=== PATIENT | female | born 1960 | race Caucasian/White ===

== ENCOUNTER → 2017-08-14 | Outpatient (CLI) | payer MEDICARE ==
[~2017-08-14] MED LIST: ACET-2267 PO; ALBU0.8322 IH; ALBU17AE3 IH; ALBU2.5V4 NEB; ALBU2.5V52 INH; ALBU8.5H2 IH; AMIO200T10 PO; AMIT10TA6 PO; ASP81CT PO; ASPI-983 PO; ATOR20TA66 PO; AZIT-21 PO; AZIT250T PO; AZIT500T PO; BUDE10.2 IH; BUDE6HFA IH; CALC625T68 PO; CARV12.53 PO; CARV25TA PO; CHOL10007 PO; CLPL625T PO; CODE1CAP36 PO; CORICIDIN PO; CYCL10TA9 PO; DEXT1TAB3 PO; DXCC100C PO; ENLP2.5T PO; FERR-84 PO; FEXO-104 PO; FEXO-45 PO; FLUT1BLS IH; FRSM40T PO; FURO-124 PO; FURO-125 PO; FURO20TA4 PO; FURO40TA4 PO; GABA-488 PO; GUAI120013 PO; GUAI400T51 PO; GUAI400T71 PO; HYDR-3002 PO; HYDR-3584 PO; HYDR-3604 PO; HYDR-3923 PO; IPRA3AMP NEB; IPRA3AMP11 INH; IPRA3AMP19 IH; ISOS30TA3 PO; LEVO100T7 PO; LEVO750T9 PO; LISI20TA PO; LISI5TAB14 PO; LOPE2TAB34 PO; LORA-794 PO; LORA10TA7 PO; LRZ1T PO; LSNP10T PO; LVF500T PO; MAGN250T35 PO; MAGN250T7 PO; MAGN400T6 PO; MAGNESIUM W/ ZINC PO; MELA5TAB21 PO; METAMUCIL CAPSULE PO; METAMUCIL FIB1 WAFER PO; METO-272 PO; METO-352 PO; METO-370 PO; METO25TA2 PO; METO50TA7 PO; MONT10TA21 PO; MONT10TA24 PO; MULT-35 PO; MULT-974 PO; NAPR-243 PO; NF-ESOM40C PO; OMEP20CA12 PO; OMEP40CA36 PO; PNV1TABL61 PO; PRD10T PO; PRD20T PO; PRED20TA PO; PRM25T PO; PSYL0.5211 PO; PSYL0.5238 PO; RABE20TA PO; RABE20TA27 PO; RIVA15TA PO; RT-ALBUINH IH; RT-SYMBINH IH; SERT50TA PO; SRTR100T PO; TIOT18CA IH; TRAZ-144 PO; TRAZ150T72 PO; UMEC62.5 IH; VIT; WRF5T PO; [UNRECOGNIZED DRUG - OTHER]; citalopram PO
[2017-08-14 14:04] LABS: HEMOGLOBIN 8.5 G/DL (11.5-16.0); MEAN PLATELET VOLUME 12.3 FL (7.4-10.4); RED BLOOD COUNT 2.62 10^6/uL (4.35-5.85); RED CELL DISTRIBUTION WIDTH 15.8 % (10.0-14.5); WHITE BLOOD COUNT 7.2 10^3/uL (4.3-11.0)
[2017-08-14 14:25] LABS: ALBUMIN 2.9 GM/DL (3.2-4.5); BILIRUBIN,TOTAL 0.3 MG/DL (0.1-1.0); CALCIUM 8.7 MG/DL (8.5-10.1); CREATININE SERUM 1.64 MG/DL (0.60-1.30); POTASSIUM 3.9 MMOL/L (3.6-5.0); TOTAL PROTEIN 6.2 GM/DL (6.4-8.2)
== END ==
LOC: HH 07:00
PROVIDERS: ATTEND Family Medicine
DX: I50.9 Heart failure, unspecified (principal); N17.9 Acute kidney failure, unspecified; N18.9 Chronic kidney disease, unspecified; I42.9 Cardiomyopathy, unspecified; N39.0 Urinary tract infection, site not specified
CPT/HCPCS: 80053; 82728; 83540; 85027

== ENCOUNTER 2017-10-25 01:19 | Inpatient (IN) | payer MEDICARE, MEDICAID ==
[2017-10-25] VITALS (17 sets, daily range): BP systolic 100–138; BP diastolic 51–95
[~2017-10-25] VITALS: Ht 160 cm; Wt 79.4 kg
[2017-10-25] MEDS ORDERED: RT-ALBUTEROL SULF 2.5 MG/3 ML PRE-MIX VIAL ONE (01:25)
--- OUTSIDE RECORDS SUMMARY | 2017-10-25 01:30 | XMS REPORT ---
Author Author YVONNE HOPSON [facility] Address [address] [place] [address] Care Team Providers Care Director Of Managed Services Name Role Phone YVONNE HOPSON Unavailable PROBLEMS Type Condition ICD9-CM Code WUV21-XW Code Onset Dates Condition Status SNOMED Code Problem Chronic systolic heart failure I50.22 Active 696772853 Problem Anemia associated with chronic renal failure D63.1 Active 458300829 Problem Mild depression F32.0 Active 529086956 Problem Essential hypertension I10 Active 27877117 Problem Paroxysmal atrial fibrillation I48.0 Active 753831646 Problem Cardiomyopathy, unspecified type I42.9 Active 95941535 Problem COPD exacerbation J44.1 Active 629051652841914 Problem Anxiety F41.9 Active 09904904 Problem Acute on chronic combined systolic and diastolic CHF (congestive heart failure) I50.43 Active 470334590796390 Problem CKD (chronic kidney disease) stage 4, GFR 15-29 ml/min N18.4 Active 774235816 ALLERGIES Substance Reaction Event Type Date Status Demerol Unknown Drug Allergy Jan, Active Bee Venom Unknown Non Drug Allergy Jan, Active ENCOUNTERS Encounter Location Date Diagnosis [facility] [id number], [place] [address] October, [facility] [address], [place] [address] Sep, Anxiety F41.9 and Paroxysmal atrial fibrillation I48.0 [facility] [id number] [place] [address]- 3410 Sep, [facility] [address], [place] [address] Aug, [facility] [id number] [place] [address]- 69[address] Aug, [facility] [address] [place] [id number] Aug, Acute on chronic combined systolic and diastolic CHF (congestive heart failure) I50.43 ; Essential hypertension I10 ; CKD (chronic kidney disease) stage 4, GFR 15-29 ml/min N18.4 ; Paroxysmal atrial fibrillation I48.0 and Mild depression F32.0 [address] [place] [place] [address]- 3[address] Aug, [facility] [id number] [place] [address]- 7964 Aug, [place] [id number] [place] [address]337- 7[address] Aug, Acute on chronic respiratory failure with hypoxia J96.21 ; Acute kidney failure, unspecified N17.9 ; Chronic kidney disease, stage 4 ( severe) N18.4 ; Acute on chronic combined systolic and diastolic CHF ( congestive heart failure) I50.43 ; Paroxysmal atrial fibrillation I48.0 and Cardiomyopathy, unspecified type I42.9 [facility] [address] [place] [address] 08059- 6795 Aug, [facility] [id number] [place] [address] 65273- 6626 Jul, [facility] [address] [place] [address] 27717- 2506 Jul, [facility] [id number] [place] [address] 85[address]- 0392 Jul, [facility] [address] [place] [address] 84097- 2090 Jul, [facility] [id number] [place] [address] 06617- 7446 Jul, Community acquired pneumonia of right lower lobe of lung J18.1 ; CKD (chronic kidney disease) stage 4, GFR 15-29 ml/min N18.4 and Shortness of breath R06.02 [facility] [id number] [place] [id number] Jul, 2017 [place] [id number] [place] [address] 99152- 2567 Jun, Anxiety F41.9 [place] [id number] [place] [address] 57858- 5427 Apr, Anxiety F41.9 [place] [address] [address] Apr, Cough R05 and Pneumonia of right lower lobe due to infectious organism J18.1 [place] [address] [address]- [address] 07 Apr, 2017 [place] [id number] [place] [address] 37825- 1226 Apr, Chronic kidney disease, stage IV (severe) N18.4 and COPD exacerbation J44.1 [place] [id number] [place] [address] 77413- 0370 Feb, Chronic systolic heart failure I50.22 ; Essential hypertension I10 ; Anemia associated with chronic renal failure D63.1 and Chronic kidney disease, stage 4 (severe) N18.4 [place] [id number] [place] [address] 73730- 5713 Feb, Anxiety F41.9 [place] [id number] [place] [address] 78039- 9703 Feb, [place] [id number] [place] [address] 06500- 7362 Feb, [place] [id number] [place] [address] 20084- 2683 Jan, Other fatigue R53.83 ; Otalgia of both ears H92.03 and Urinary urgency R39.15 [place] [id number] [place] [address] 21551- 3875 Jan, Acute non-recurrent maxillary sinusitis J01.00 ; Chronic systolic heart failure I50.22 ; Stage 3 chronic kidney disease N18.3 and Mild depression F32.0 [facility] [address] [place] [address] 14 Sep, 2014 [facility] [address] [facility] [id number] [place] [address] Sep, [facility] [address] [facility] [id number] [place] [address] 9092 Feb, [facility] [address] [id number] [place] Feb, [facility] [address] [facility] [id number] [place] [address] Dec, [facility] [id number] [address] Dec, [facility] [address] [place] [address] 6[address] Nov, [facility] [id number] [place] [address]99 Nov, [facility] [address] [place] [address] 38[address] Nov, [facility] [id number] [place] [address] 9616 Nov, [facility] [id number], [place] [address] October, [facility] [address] [facility] [id number] [place] October, [facility] [id number] Sep, [facility] [address] [facility] [id number] [place] [address]- 3305 Sep, [facility] [id number], [place] [address] 65[address] Sep, [facility] [place] [facility] [address] [id number] [place] [address]- 3581 Sep, [facility] [place] [facility] [address] [id number] [place] [address]- 8755 Sep, [facility] [place] [facility] [address] [id number] [place] Aug, [facility] [place] [facility] [address] [id number] [place] [address]- 3421 Aug, [facility] [place] [facility] [address] [id number] [place] [address]- 9272 Aug, [facility] [place] [facility] [address] [id number] [place] [address]- 0364 Aug, [facility] [place] [facility] [address] [id number] [place] [address]- 7947 Aug, [facility] [place] [facility] [address] [id number] [place] [address]- 0693 Aug, [facility] [place] [facility] [address] [id number] [place] [address]- 2681 Aug, [facility] [place] [facility] [address] [id number] [place] [address]- 5054 Aug, [facility] [place] [facility] [address] [id number] [place] [address]- 1133 Jul, [facility] [place] [facility] [address] [id number] [place] [address]- 0110 Jul, [facility] [place] [facility] [address] [id number] [place] [address]- 7524 Jul, [facility] [place] [facility] [address] [id number] [place] [address]- 2033 Jul, [facility] [place] [facility] [address] [id number] [place] [address]- 7445 Jul, [facility] [place] [facility] [address] [id number] [place] [address] 2547 03 Jul, 2013 [facility] [address] [id number] [place] [address]- 9899 Jun, [facility] [place] [facility] [address] [id number] [place] [address]- 2028 Jun, [facility] [address] [id number] [place] [address]- 5201 Jun, [facility] [place] [facility] [address] [id number] [place] [address]- 4157 Jun, [facility] [address] [id number] [place] [address]- 2720 Jun, [facility] [address] [id number] [place] [address]- 4774 May, [facility] [place] [facility] [address] [id number] [place] [address]- 2886 May, [facility] [address] [id number] [place] [address]- 7195 May, [facility] [address] [id number] [place] [address]- 9216 May, [facility] [address] [id number] [place] [address]- 3399 May, [facility] [place] [facility] [address] [id number] [place] [address]- 4119 Apr, [facility] [place] [facility] [address] [id number] [place] [address]- 6987 Apr, [facility] [place] [facility] [address] [id number] [place] [address]- 9286 Mar, [facility] [place] [facility] [address] [id number] [place] [address]- 2546 Mar, [facility] [place] [facility] [address] [id number] [place] [address]- 8547 Mar, [facility] [place] [facility] [address] [id number] [place] [address]- 0149 Mar, [facility] [place] [facility] [address] [id number] [place] [address]- 6600 16 Feb, 2013 [facility] [place] [facility] [address] [id number] [place] [address]- 2030 Jan, [facility] [place] [facility] [address] [id number] [place] [address]- 5223 Jan, [facility] [place] [facility] [address] [id number] [place] [address]- 7510 Aug, [facility] [place] [facility] [address] [id number] [place] [address]- 2836 Jul, [facility] [place] [facility] [address] [facility] [id number] [place] [address]- 0964 Jun, [facility] [place] [facility] [address] [id number] [place] [address]- 7363 May, [facility] [place] [facility] [address] [id number] [place] [address]- 5719 May, [facility] [place] [facility] [address] [facility] [id number] [place] [address]- 4465 May, [facility] [place] [facility] [address] [id number] [place] [address]- 2459 May, [facility] [place] [facility] [address] [id number], [place] [address]- 0878 Apr, [facility] [place] [facility] [address] [id number] [place] [address]- 3771 Apr, [facility] [place] [facility] [address] [id number] [place] [address]- 9373 Mar, [facility] [place] [facility] [address] [id number] [place] [address]- 0742 Mar, [facility] [place] [facility] [id number], [place] [address] 2546 Mar, [facility] [address], [place] [address]- 3476 Mar, [facility] [address], [place] [address]- 1566 Mar, [facility] [address], [place] [address] 2546 Mar, [facility] [address], [place] [address] 2546 Dec, [facility] [address], [place] [address]- 0086 Dec, [facility] [address], [place] [address]- 2546 Nov, [facility] [address], [place] [address]- 4076 Nov, [facility] [address], [place] [address]- 5536 October, [facility] [address], [place] [address]- 1706 October, [facility] [address], [place] [address]- 9716 Sep, [facility] [address], [place] [address]- 0286 Aug, [facility] [id number], [place] [address] 2546 Aug, [facility] [id number], [place] [address]- 4096 Aug, IMMUNIZATIONS No Known Immunizations SOCIAL HISTORY Never Assessed REASON FOR VISIT Ear Pain, cont'd symptoms, pt. has been having really glossy eyes and forgetting what she is saying , pt. states having diarrhea---[place],CCMA PLAN OF CARE Activity Details Follow Up Follow up with Dr. Dubose as soon as possible, prn Reason: VITAL SIGNS Height 60 in 2017-02-26 Weight 187.4 lbs 2017-02-26 Temperature 98.4 degrees Fahrenheit 2017-02-26 Heart Rate 80 bpm 2017-02-26 Respiratory Rate 20 2017-02-26 BMI 36.60 kg/m2 2017-02-26 Blood pressure systolic 138 mmHg 2017-02-26 Blood pressure diastolic 77 mmHg 2017-02-26 MEDICATIONS Medication Instructions Dosage Frequency Start Date End Date Duration Status Furosemide 20 MG Orally Once a day 1 tablet by Oral route 1 time per day PRN edema 24h 17 Feb, 2014 Active Spiriva HandiHaler 18 MCG Inhalation Once a day 1 capsule 24h Active Ferrous Sulfate 325 (65 Fe) MG Orally twice a day 1 tablet 12h Active Breo Ellipta 200-25 MCG/INH Inhalation Once a day 1 puff 24h Active Montelukast Sodium 10 MG Orally Once a day 1 tablet in the evening 24h Active D3-1000 1000 UNIT Orally Once a day 1 capsule 24h Active 28-0.8 MG Active Isosorbide Mononitrate ER 30 MG Orally Once a day 2 tablets 24h Active Carvedilol 12.5 MG Orally 2 times a day 12h Active Gabapentin 300 MG Orally Once a day 1 capsule 24h Active Loratadine 10 MG Orally Once a day 1 tablet 24h Active Trazodone HCl 150 MG Orally Once a day 1.5 tablets 24h Active HydrOXYzine HCl 10 mg Orally every 8 hrs 8h Active Magnesium Oxide 1 Tablet by Oral route 1 time per day Apr, Active HydrALAZINE HCl 25 MG Orally 2 times a day 1 tablet with food 12h Active Levothyroxine Sodium 100 MCG Orally Once a day 1 tablet on an empty stomach in the morning 24h Active Atorvastatin Calcium 20 MG Orally Once a day 1 tablet 24h Active RESULTS Name Result Date Reference Range THYROID ANALYZER 2017-02-26 TSH 1.840 0.450-4.500 CBC 2017-02-26 WBC 9.9 3.4-10.8 RBC 3.49 3.77-5.28 Hemoglobin 10.6 11.1-15.9 Hematocrit 33.5 34.0-46.6 MCV 96 79-97 MCH 30.4 26.6-33.0 MCHC 31.6 31.5-35.7 RDW 14.9 12.3-15.4 Platelets 289 150-379 Neutrophils 73 Lymphs 18 Monocytes 7 Eos 1 Basos 1 Neutrophils (Absolute) 7.2 1.4-7.0 Lymphs (Absolute) 1.8 0.7-3.1 Monocytes(Absolute) 0.7 0.1-0.9 Eos (Absolute) 0.1 0.0-0.4 Baso (Absolute) 0.1 0.0-0.2 Immature Granulocytes 0 Immature Grans (Abs) 0.0 0.0-0.1 CMP 2017-02-26 Glucose, Serum 114 65-99 BUN 17 6-24 Creatinine, Serum 1.70 0.57-1.00 eGFR If NonAfricn Am 33 >59 eGFR If Africn Am 38 >59 BUN/Creatinine Ratio 10 9-23 Sodium, Serum 142 134-144 Potassium, Serum 4.6 3.5-5.2 Chloride, Serum 99 96-106 Carbon Dioxide, Total 27 18-29 Calcium, Serum 9.8 8.7-10.2 Protein, Total, Serum 7.2 6.0-8.5 Albumin, Serum 3.9 3.5-5.5 Globulin, Total 3.3 1.5-4.5 A/G Ratio 1.2 1.2-2.2 Bilirubin, Total <0.2 0.0-1.2 Alkaline Phosphatase, S 156 39-117 AST (SGOT) 18 0-40 ALT (SGPT) 14 0-32 UA LONG DIP (IN HOUSE) 2017-02-26 Lot # [id number] Exp date 10/2017 Clarity Clear Color Yellow Odor None GLU Negative ROBERTA Negative KET Negative SG <=1.005 BLO Negative pH 5.5 Protein Negative URO 0.2 NIT Negative YOAN Negative Lot # Exp date PROCEDURES Procedure Date Ordered Result Body Site [facility] Feb 26, 2017 URINALYSIS, AUTO, W/O SCOPE Feb 26, 2017 [facility] VISIT ESTABLISHED PATIENT Feb 26, 2017 VENIPUNCT, ROUTINE* Feb 26, 2017 INSTRUCTIONS MEDICATIONS ADMINISTERED No Known Medications MEDICAL (GENERAL) HISTORY Type Description Date Medical History hyperlipidemia Medical History htn Medical History kidney failure stage 4 - dx in 2012 Medical History hypothyroidisim Medical History neuropathy Medical History COPD - See's Dr Burnette in [facility] Surgical History 2 cesareans Surgical History defibrillator - 2012 Hospitalization History pneumonia for a week 2017 Hospitalization History Hospitalized at [facility]- CHF, Chest pain. Dismissed 07/11/17 07/10/2017 Hospitalization History [facility] pneumonia, hypoxia-[facility] 07/30/17
[2017-10-25] MEDS ORDERED: RT-ALBUTEROL SULF 2.5 MG/3 ML PRE-MIX VIAL INH STA (01:31)
[2017-10-25] MEDS ORDERED: methylPREDNISolone 125 MG (Solu-MEDROL) VIAL IV STA (01:31)
[2017-10-25] MEDS ORDERED: NS IV 500 ML 500 ML IV ONE (01:31)
--- OUTSIDE RECORDS SUMMARY | 2017-10-25 01:31 | XMS REPORT ---
Author Author TEAGAN VERNON Organization [facility] Address [address] [place] [address] Care Team Providers Care Adult School Teacher Name Role Phone TEAGAN VERNON Unavailable PROBLEMS Type Condition ICD9-CM Code SWS44-CE Code Onset Dates Condition Status SNOMED Code Problem Chronic systolic heart failure I50.22 Active 341644729 Problem Anemia associated with chronic renal failure D63.1 Active 528209871 Problem Mild depression F32.0 Active 691870205 Problem Essential hypertension I10 Active 47899189 Problem Chronic kidney disease, stage 4 (severe) N18.4 Active 439375278 Problem Paroxysmal atrial fibrillation I48.0 Active 766595510 Problem COPD exacerbation J44.1 Active 373860522854711 Problem Anxiety F41.9 Active 18250187 Problem Cardiomyopathy, unspecified type I42.9 Active 08414267 Problem Acute on chronic combined systolic and diastolic CHF (congestive heart failure) I50.43 Active [id number] ALLERGIES Substance Reaction Event Type Date Status Demerol Unknown Drug Allergy Jan, Active Bee Venom Unknown Non Drug Allergy Jan, Active ENCOUNTERS Encounter Location Date Diagnosis [place] [id number] [place] [address] 95558- 4431 October, [facility] [id number] [place] [address] 65537- 0130 Sep, Chronic kidney disease, stage 4 (severe) N18.4 and Chronic kidney disease, stage IV (severe) N18.4 [facility] [id number] [place] [address] 94561- 3101 Sep, Chronic kidney disease, stage 4 (severe) N18.4 [facility] [address] [place] [address] 05633- 5571 Sep, Anxiety F41.9 and Paroxysmal atrial fibrillation I48.0 [facility] [address] [address] Sep, [facility] [id number] [place] [address] 34608- 8387 Aug, [facility] [address] [place] [address] 07408- 4669 Aug, [facility] [address] [facility] [place] [id number] Aug, Acute on chronic combined systolic and diastolic CHF (congestive heart failure) I50.43 ; Essential hypertension I10 ; CKD (chronic kidney disease) stage 4, GFR 15-29 ml/min N18.4 ; Paroxysmal atrial fibrillation I48.0 and Mild depression F32.0 [facility] [address] [place] [address] 38736- 6458 Aug, [place] [id number] [place] [address] 80253- 5216 Aug, [facility] [address] [place] [address] 79198- 9161 Aug, Acute on chronic respiratory failure with hypoxia J96.21 ; Acute kidney failure, unspecified N17.9 ; Chronic kidney disease, stage 4 ( severe) N18.4 ; Acute on chronic combined systolic and diastolic CHF ( congestive heart failure) I50.43 ; Paroxysmal atrial fibrillation I48.0 and Cardiomyopathy, unspecified type I42.9 [facility] [address] [address] Aug, [facility] [address] [place] [address] 94926- 0682 Jul, [facility] [id number] [place] [address] 98846- 7702 Jul, [facility] [address] [place] [address] 13885- 8076 Jul, [facility] [id number] [place] [address] 92135- 5300 07 Jul, 2017 [facility] [address] [place] [address] 46862- 4184 Jul, Community acquired pneumonia of right lower lobe of lung J18.1 ; CKD (chronic kidney disease) stage 4, GFR 15-29 ml/min N18.4 and Shortness of breath R06.02 [facility] [address] [id number] Jul, [facility] [id number] [place] [address] 03712- 4215 Jun, Anxiety F41.9 [place] [address] [address]- 3552 Apr, Anxiety F41.9 [place] [id number] [place] [address] 97296- 4687 Apr, Cough R05 and Pneumonia of right lower lobe due to infectious organism J18.1 [place] [id number] [place] [address] 83498- 7716 Apr, [place] [id number] [place] [address] 63857- 1204 Apr, Chronic kidney disease, stage IV (severe) N18.4 and COPD exacerbation J44.1 [place] [id number] [place] [address] 40923- 0889 Feb, Chronic systolic heart failure I50.22 ; Essential hypertension I10 ; Anemia associated with chronic renal failure D63.1 and Chronic kidney disease, stage 4 (severe) N18.4 [place] [address] [place] [address] 73272- 9023 Feb, Anxiety F41.9 [facility] [id number] [place] [address] 48624- 8098 Feb, [place] [id number] [place] [address] 20540- 5825 Feb, [place] [address] [address] 30 Jan, 2017 Other fatigue R53.83 ; Otalgia of both ears H92.03 and Urinary urgency R39.15 [facility] [address] [address] 24 Jan, 2017 Acute non-recurrent maxillary sinusitis J01.00 ; Chronic systolic heart failure I50.22 ; Stage 3 chronic kidney disease N18.3 and Mild depression F32.0 [facility] [id number] [address] 14 Sep, 2014 [facility] [id number] [place] [address] 25347- 1288 Sep, [facility] [id number] [place] [address] 65662- 7103 Feb, [facility] [id number] [place] [address] 94274- 0795 Feb, [facility] [address] [address] 0229 Dec, [facility] [id number] [place] [address] 96274- 5689 Dec, [facility] [id number] [address] 72[address] Nov, [facility] [address] [address]- 2293 Nov, [facility] [address] [address] 5465 Nov, [facility] [id number] [place] [address] 45741- 4158 Nov, [facility] [address] [address] 7798 October, [facility] [id number] [place] [address] 88494- 3883 October, [facility] [place] [facility] [address] [id number] [place] [address]- 9390 Sep, [facility] [place] [facility] [address] [id number] [place] [address]- 7617 Sep, [facility] [place] [facility] [address] [id number] [place] [address]- 1862 Sep, [facility] [place] [facility] [address] [id number] [place] [address]- 1159 Sep, [facility] [place] [facility] [address] [id number] [place] [address] Sep, [facility] [place] [facility] [address] [id number] [place] [address]- 2950 Aug, [facility] [place] [facility] [address] [id number] [place] [address]- 8445 Aug, [facility] [place] [facility] [address] [id number] [place] [address]- 0575 Aug, [facility] [place] [facility] [address] [id number] [place] [address]- 4029 Aug, [facility] [place] [facility] [address] [id number] [place] [address]- 8303 Aug, [facility] [place] [facility] [address] [id number] [place] [address]- 6100 Aug, [facility] [place] [facility] [address] [id number] [place] [address]- 2175 Aug, [facility] [place] [facility] [address] [id number] [place] [address]- 4384 Aug, [facility] [place] [facility] [address] [id number] [place] [address]- 9789 Jul, [facility] [place] [facility] [address] [id number] [place] [address]- 7437 Jul, [facility] [place] [facility] [address] [id number] [place] [address]- 7105 05 Jul, 2013 [facility] [address] [id number] [place] [address]- 5550 05 Jul, 2013 [facility] [place] [facility] [address] [id number] [place] [address]- 2344 Jul, [facility] [address] [id number] [place] [address]- 4491 Jul, [facility] [place] [facility] [address] [id number] [place] [address]- 7499 Jun, [facility] [address] [id number] [place] [address]- 1652 Jun, [facility] [address] [id number] [place] [address]- 8481 Jun, [facility] [address] [id number] [place] [address]- 5726 Jun, [facility] [address] [id number] [place] [address]- 1666 Jun, [facility] [address] [id number] [place] [address]- 1975 May, [facility] [address] [facility] [id number] [place] [address]- 5191 May, [facility] [place] [facility] [address] [id number] [place] [address]- 4112 May, [facility] [place] [facility] [address] [id number] [place] [address]- 0708 May, [facility] [place] [facility] [address] [id number] [place] [address]- 3594 May, [facility] [place] [facility] [address] [id number] [place] [address]- 7310 Apr, [facility] [place] [facility] [address] [id number] [place] [address]- 9022 Apr, [facility] [address] [id number] [place] [address]- 8338 Mar, [facility] [place] [facility] [address] [id number] [place] [address]- 8446 Mar, [facility] [place] [facility] [address] [id number] [place] [address]- 1096 Mar, [facility] [place] [facility] [address] [id number] [place] [address]- 6836 Mar, [facility] [place] [facility] [address] [id number] [place] [address]- 6301 Feb, [facility] [place] [facility] [address] [id number] [place] [address]- 7476 Jan, [facility] [place] [facility] [address] [id number] [place] [address]- 7521 Jan, [facility] [place] [facility] [address] [id number] [place] [address]- 3639 Aug, [facility] [place] [facility] [address] [id number] [place] [address]- 5909 Jul, [facility] [place] [facility] [address] [facility] [id number] [address]- 1436 Jun, [facility] [place] [facility] [address] [facility] [id number], [place] [address]- 5036 May, [facility] [place] [facility] [address] [id number], [place] [address]- 4143 May, [facility] [place] [facility] [address] [id number] [place] [address]- 7867 May, [facility] [place] [facility] [address] [id number] [place] [address]- 3666 May, [facility] [place] [facility] [address] [facility] [id number], [place] [address]- 3836 Apr, [facility] [place] [facility] [address] [id number], [place] [address]- 3925 Apr, [facility] [place] [facility] [address] [id number] [place] [address]- 9145 Mar, [facility] [place] [facility] [address] [id number] [place] [address]- 3792 Mar, [facility] [place] [facility] [address] [facility] [id number] [place] [address]- 0816 Mar, [facility] [place] [facility] [address] [id number] [place] [address]- 1355 Mar, [facility] [place] [facility] [address] [id number] [place] [address]- 0906 Mar, [facility] [place] [facility] [address] [id number] [place] [address]- 3051 Mar, [facility] [place] [facility] [address] [place] [address]- 1792 Dec, [facility] [place] [facility] [address] [facility] [id number] [place] [address]- 5363 Dec, [facility] [place] [facility] [id number] [place] [address]- 1740 Nov, [facility] [place] [facility] [id number] [place] [address]- 1045 Nov, [facility] [place] [facility] [address] [facility] [id number] [place] [address]- 5001 October, [facility] [place] [facility] [address] [facility] [id number] [address] 2546 October, [facility] [place] [facility] [address] [id number] [place] [address]- 0913 Sep, [facility] [place] [facility] [address] [facility] [id number] [place] [address]- 2876 Aug, [facility] [place] [facility] [id number] [place] [address]- 2577 Aug, [facility] [place] [facility] [address] [facility] [id number] [place] [address] Aug, IMMUNIZATIONS No Known Immunizations SOCIAL HISTORY Never Assessed REASON FOR VISIT Establish Care-WILLIAM Teague PLAN OF CARE Activity Details Follow Up 3 Months with [facility] for CHF Reason: VITAL SIGNS Height 60 in 2017-02-20 Weight 186 lbs 2017-02-20 Temperature 98.4 degrees Fahrenheit 2017-02-20 Heart Rate 80 bpm 2017-02-20 Respiratory Rate 20 2017-02-20 BMI 36.32 kg/m2 2017-02-20 Blood pressure systolic 110 mmHg 2017-02-20 Blood pressure diastolic 70 mmHg 2017-02-20 MEDICATIONS Medication Instructions Dosage Frequency Start Date End Date Duration Status Carvedilol 12.5 MG Orally 2 times a day 12h Active Atorvastatin Calcium 20 MG Orally Once a day 1 tablet 24h Active Spiriva HandiHaler 18 MCG Inhalation Once a day 1 capsule 24h Active Gabapentin 300 MG Orally Once a day 1 capsule 24h Active 28-0.8 MG Active Magnesium Oxide 1 Tablet by Oral route 1 time per day Apr, Active Loratadine 10 MG Orally Once a day 1 tablet 24h Active Augmentin 875-125 MG Orally every 12 hrs 1 tablet 12h Jan,Jan 05 days Active D3-1000 1000 UNIT Orally Once a day 1 capsule 24h Active HydrALAZINE HCl 25 MG Orally 2 times a day 1 tablet with food 12h Active Trazodone HCl 150 MG Orally Once a day 1.5 tablets 24h Active Furosemide 20 MG Orally Once a day 1 tablet by Oral route 1 time per day PRN edema 24h Feb, Active Ferrous Sulfate 325 (65 Fe) MG Orally twice a day 1 tablet 12h Active Montelukast Sodium 10 MG Orally Once a day 1 tablet in the evening 24h Active Isosorbide Mononitrate ER 30 MG Orally Once a day 2 tablets 24h Active Levothyroxine Sodium 100 MCG Orally Once a day 1 tablet on an empty stomach in the morning 24h Active Breo Ellipta 200-25 MCG/INH Inhalation Once a day 1 puff 24h Active HydrOXYzine HCl 10 mg Orally every 8 hrs 8h Active RESULTS No Results PROCEDURES Procedure Date Ordered Result Body Site [facility] VISIT NEW PATIENT Feb 20, 2017 INSTRUCTIONS MEDICATIONS ADMINISTERED No Known Medications MEDICAL (GENERAL) HISTORY Type Description Date Medical History hyperlipidemia Medical History htn Medical History kidney failure stage 4 - dx in 2012 Medical History hypothyroidisim Medical History neuropathy Medical History COPD - See's Dr Burnette in [facility] Surgical History 2 cesareans Surgical History defibrillator - 2012 Hospitalization History pneumonia for a week 2017 Hospitalization History Hospitalized at [facility]- CHF, Chest pain. Dismissed 07/11/17 07/10/2017 Hospitalization History [facility] pneumonia, [facility] 07/30/17
--- OUTSIDE RECORDS SUMMARY | 2017-10-25 01:33 | XMS REPORT ---
Author Author TEAGAN VERNON Organization [facility] Address [address] [place] [address] Care Team Providers Care Coke Inspector Name Role Phone TEAGAN VERNON Unavailable PROBLEMS Type Condition ICD9-CM Code OBP05-AX Code Onset Dates Condition Status SNOMED Code Problem Chronic systolic heart failure I50.22 Active 389343230 Problem Anemia associated with chronic renal failure D63.1 Active 413413096 Problem Mild depression F32.0 Active 363284909 Problem Essential hypertension I10 Active 62668514 Problem Chronic kidney disease, stage 4 (severe) N18.4 Active 179553216 Problem Paroxysmal atrial fibrillation I48.0 Active 051086545 Problem COPD exacerbation J44.1 Active [id number] Problem Anxiety F41.9 Active 48094996 Problem Cardiomyopathy, unspecified type I42.9 Active 59624064 Problem Acute on chronic combined systolic and diastolic CHF (congestive heart failure) I50.43 Active [id number] ALLERGIES No Information ENCOUNTERS Encounter Location Date Diagnosis [facility] [address] [address] October, [facility] [id number] [place] [address]8572- 6635 Sep, Chronic kidney disease, stage 4 (severe) N18.4 and Chronic kidney disease, stage IV (severe) N18.4 [facility] [id number] [place] [address] 78873- 1087 Sep, Chronic kidney disease, stage 4 (severe) N18.4 [facility] [id number] [place] [address] 50455- 7203 Sep, Anxiety F41.9 and Paroxysmal atrial fibrillation I48.0 [facility] [address] [address] Sep, [facility] [address] [address] Aug, [facility] [id number] [place] [address] 31976- 1288 Aug, [facility] [address] [place], [place] [id number] Aug, Acute on chronic combined systolic and diastolic CHF (congestive heart failure) I50.43 ; Essential hypertension I10 ; CKD (chronic kidney disease) stage 4, GFR 15-29 ml/min N18.4 ; Paroxysmal atrial fibrillation I48.0 and Mild depression F32.0 [facility] [id number] [place] [address] 716[address]- 6362 Aug, [facility] [id number] [place] [address]91- 4128 Aug, [facility] [id number] [place] [address] 52027- 6026 Aug, Acute on chronic respiratory failure with hypoxia J96.21 ; Acute kidney failure, unspecified N17.9 ; Chronic kidney disease, stage 4 ( severe) N18.4 ; Acute on chronic combined systolic and diastolic CHF ( congestive heart failure) I50.43 ; Paroxysmal atrial fibrillation I48.0 and Cardiomyopathy, unspecified type I42.9 [facility] [address] [address] Aug, [facility] [id number] [place] [address]10- 0685 Jul, [facility] [address], [place] [address] Jul, [facility] [id number] [place] [address] 02361- 0196 Jul, [facility] [address] [address] Jul, [facility] [id number] [place] [address] 04305- 2630 06 Jul, 2017 Community acquired pneumonia of right lower lobe of lung J18.1 ; CKD (chronic kidney disease) stage 4, GFR 15-29 ml/min N18.4 and Shortness of breath R06.02 [facility] [id number] [place] [id number] Jul, 2017 [facility] [id number] [place] [address] 49058- 2981 Jun, Anxiety F41.9 [place] [address] [address]- [address]36 Apr, Anxiety F41.9 [place] [address] 35691- 0271 Apr, Cough R05 and Pneumonia of right lower lobe due to infectious organism J18.[address] [address]- [address] Apr, [place] [id number] [place] [address] 67366- 3882 Apr, Chronic kidney disease, stage IV (severe) N18.4 and COPD exacerbation J44.1 [place] [id number] [place] [address] 71116- 1675 Feb, Chronic systolic heart failure I50.22 ; Essential hypertension I10 ; Anemia associated with chronic renal failure D63.1 and Chronic kidney disease, stage 4 (severe) N18.4 [facility] [id number] [place] [address] 76871- 0437 Feb, Anxiety F41.9 [facility] [address] [address]- [address] Feb, [facility] [id number] [place] [address] 55594- 8021 Feb, [place] [id number] [place] [address] 91444- 3376 Jan, Other fatigue R53.83 ; Otalgia of both ears H92.03 and Urinary urgency R39.15 [facility] [id number] [place] [address] 02073- 4719 Jan, Acute non-recurrent maxillary sinusitis J01.00 ; Chronic systolic heart failure I50.22 ; Stage 3 chronic kidney disease N18.3 and Mild depression F32.0 [facility] [address] [address]- 5812 Sep, [facility] [id number] [place] [address] 38905- 7781 Sep, [facility] [id number] [place] [address] 04139- 6996 Feb, [facility] [id number] [place] [address] 21736- 0852 Feb, [facility] [id number] [place] [address] 82404- 7129 Dec, [facility] [id number] [place] [address] 48459- 1865 Dec, [facility] [id number] [place] [address] 48834- 5165 Nov, [facility] [id number] [place] [address] 58645- 6068 Nov, [facility] [id number] [place] [address] 48015- 6522 Nov, [facility] [id number] [place] [address] 11146- 5538 Nov, [facility] [id number] [place] [address] 97571- 5605 October, [facility] [id number] [place] [address] 79972- 7165 October, [facility] [id number] [place] [address] 69595- 2516 Sep, [facility] [place] [facility] [address] [id number] [place] [address]- 7453 Sep, [facility] [place] [facility] [address] [id number] [place] [address]- 1934 Sep, [facility] [place] [facility] [address] [id number] [place] [address]- 1682 Sep, [facility] [place] [facility] [address] [id number] [place] [address]- 6419 Sep, [facility] [place] [facility] [address] [id number] [place] [address] Aug, [facility] [place] [facility] [address] [id number] [place] [address]149 Aug, [facility] [place] [facility] [address] [id number] [place] [address]- 9524 Aug, [facility] [place] [facility] [address] [id number] [place] [address]- 7760 Aug, [facility] [place] [facility] [address] [id number] [place] [address]- 9420 Aug, [facility] [place] [facility] [address] [id number] [place] [address]- 4834 Aug, [facility] [place] [facility] [address] [id number] [place] [address]- 7265 Aug, [facility] [place] [facility] [address] [id number] [place] [address]- 8679 Aug, [facility] [place] [facility] [address] [id number] [place] [address]- 8596 Jul, [facility] [place] [facility] [address] [id number] [place] [address]- 3916 Jul, [facility] [place] [facility] [address] [id number] [place] [address]- 2761 Jul, [facility] [place] [facility] [address] [id number] [place] [address]- 3965 05 Jul, 2013 [facility] [place] [facility] [address] [id number] [place] [address]- 5935 Jul, [facility] [place] [facility] [address] [id number] [place] [address]- 7176 Jul, [facility] [place] [facility] [address] [id number] [place] [address]- 9825 Jun, [facility] [place] [facility] [address] [id number] [place] [address]- 5721 Jun, [facility] [place] [facility] [address] [id number] [place] [address]- 3998 Jun, [facility] [place] [facility] [address] [id number] [place] [address]- 9028 Jun, [facility] [place] [facility] [address] [id number] [place] [address]- 2339 Jun, [facility] [place] [facility] [address] [id number] [place] [address]- 1551 May, [facility] [place] [facility] [address] [id number] [place] [address]- 3204 May, [facility] [place] [facility] [address] [id number] [place] [address]- 4293 May, [facility] [place] [facility] [address] [id number] [place] [address]- 2999 May, [facility] [place] [facility] [address] [id number] [place] [address]- 8732 May, [facility] [place] [facility] [address] [id number] [place] [address]- 5141 Apr, [facility] [place] [facility] [address] [id number] [place] [address]- 3709 Apr, [facility] [place] [facility] [address] [id number] [place] [address]- 3303 Mar, [facility] [address] [id number] [place] [address]- 5740 Mar, [facility] [place] [facility] [address] [id number] [place] [address]- 3866 Mar, [facility] [place] [facility] [address] [facility] [id number] [place] [address] 2546 Mar, [facility] [place] [facility] [address] [id number] [place] [address]- 5718 Feb, [facility] [place] [facility] [address] [id number] [place] [address]- 8852 Jan, [facility] [place] [facility] [address] [id number] [place] [address]- 9117 Jan, [facility] [place] [facility] [address] [id number] [place] [address]- 7435 Aug, [facility] [place] [facility] [address] [id number] [place] [address]- 5791 Jul, [facility] [place] [facility] [address] [id number] [place] [address]- 3086 Jun, [facility] [place] [facility] [address] [id number] [place] [address]- 8265 May, [facility] [place] [facility] [address] [id number], [place] [address]- 1275 May, [facility] [place] [facility] [address] [id number], [place] [address]- 4107 May, [facility] [place] [facility] [address] [id number] [place] [address]- 5151 May, [facility] [place] [facility] [address] [facility] [id number] [address]- 6986 Apr, [facility] [place] [facility] [address] [facility] [id number] [place] [address]- 2546 Apr, [facility] [place] [facility] [address] [id number] [place] [address]- 7375 Mar, [facility] [address] [id number] [place] [address]- 0342 Mar, [facility] [address] [id number] [place] [address]- 0040 Mar, [facility] [address] [id number] [place] [address]- 0204 Mar, [facility] [address] [id number] [place] [address]- 5553 Mar, [facility] [address] [id number] [place] [address]- 7933 Mar, [facility] [address] [facility] [id number] [place] [address]- 0693 Dec, [facility] [address] [facility] [id number] [place] [address]- 3331 Dec, [facility] [address] [facility] [id number] [place] [address]- 0677 Nov, [facility] [address] [facility] [id number] [place] [address]- 5728 Nov, [facility] [address] [facility] [id number] [place] [address]- 2106 October, [facility] [address] [facility] [id number] [place] [address]- 7196 October, [facility] [address] [facility] [id number] [place] [address]- 9610 Sep, [facility] [address] [facility] [id number] [place] [address]- 6901 Aug, [facility] [address] [facility] [id number] [place] [address]- 2546 Aug, [facility] [address] [facility] [id number], [place] [address]- 6986 Aug, IMMUNIZATIONS No Known Immunizations SOCIAL HISTORY Never Assessed REASON FOR VISIT Med concern PLAN OF CARE VITAL SIGNS MEDICATIONS Medication Instructions Dosage Frequency Start Date End Date Duration Status Omeprazole 20 mg Orally 2 times a day 1 capsule 12h Feb, 30 day (s) Active RESULTS No Results PROCEDURES No Known procedures INSTRUCTIONS MEDICATIONS ADMINISTERED No Known Medications MEDICAL (GENERAL) HISTORY Type Description Date Medical History hyperlipidemia Medical History htn Medical History kidney failure stage 4 - dx in 2012 Medical History hypothyroidisim Medical History neuropathy Medical History COPD - See's Dr Burnette in [facility] Surgical History 2 cesareans Surgical History defibrillator - 2012 Hospitalization History pneumonia for a week 2017 Hospitalization History Hospitalized at [facility]- CHF, Chest pain. Dismissed 07/11/17 07/10/2017 Hospitalization History RLL pneumonia, hypoxia-[facility] 07/30/17
[2017-10-25 01:35] LABS: ABG BASE EXCESS 1.8 MMOL/L (-2.5-2.5); ABG OXYGEN SATURATION 92 % (94-100); ABG PCO2 55 MMHG (35-45); ABG PO2 66 MMHG (79-93); ABG TCO2 29.2 MMOL/L (21.0-31.0)
[2017-10-25 01:37] LABS: ALLENS TEST YES-POS; INSPIRED O2 65% BIPAP; PATIENT TEMP 97.5; VENTILATOR NO
[2017-10-25 01:39] LABS: ABG PH 7.32 (7.37-7.43)
[2017-10-25 01:42] LABS: BASOPHILS # (AUTO) 0.1 10^3/uL (0.0-0.1); BASOPHILS % (AUTO) 1 % (0-10); EOSINOPHILS # (AUTO) 0.3 10^3/uL (0.0-0.3); EOSINOPHILS % (AUTO) 2 % (0-10); HEMATOCRIT 36 % (35-52); HEMOGLOBIN 11.7 G/DL (11.5-16.0); LYMPHOCYTES % (AUTO) 16 % (12-44); MEAN CORPUSCULAR HEMOGLOBIN 32 PG (25-34); MEAN CORPUSCULAR HGB CONC 33 G/DL (32-36); MEAN CORPUSCULAR VOLUME 98 FL (80-99); MEAN PLATELET VOLUME 12.5 FL (7.4-10.4); MONOCYTES % (AUTO) 8 % (0-12); NEUTROPHILS # (AUTO) 9.1 X 10^3 (1.8-7.8); NEUTROPHILS % (AUTO) 74 % (42-75); PLATELET COUNT 327 10^3/uL (130-400); RED BLOOD COUNT 3.67 10^6/uL (4.35-5.85); RED CELL DISTRIBUTION WIDTH 15.3 % (10.0-14.5); WHITE BLOOD COUNT 12.4 10^3/uL (4.3-11.0)
[2017-10-25 01:53] LABS: INR 0.9 (0.8-1.4); PROTHROMBIN TIME PATIENT 12.6 SEC (12.2-14.7)
[2017-10-25 02:04] LABS: BILIRUBIN,URINE NEGATIVE (NEGATIVE); CLARITY,URINE CLEAR; COLOR,URINE YELLOW; GLUCOSE, URINE (UA) NEGATIVE (NEGATIVE); KETONES,URINE NEGATIVE (NEGATIVE); LEUKOCYTE ESTERASE ,URINE 1+ (NEGATIVE); NITRITE,URINE NEGATIVE (NEGATIVE); PH,URINE 6 (5-9); PROTEIN,URINE 3+ (NEGATIVE); UROBILINOGEN,URINE NORMAL (NORMAL)
[2017-10-25 02:09] LABS: ALBUMIN 3.9 GM/DL (3.2-4.5); BILIRUBIN,TOTAL 0.3 MG/DL (0.1-1.0); CALCIUM 9.7 MG/DL (8.5-10.1); CREATININE SERUM 2.32 MG/DL (0.60-1.30); POTASSIUM 4.2 MMOL/L (3.6-5.0)
[2017-10-25 02:12] LABS: BACTERIA,URINE TRACE /HPF; RBC,URINE 0-2 /HPF; SQUAMOUS EPITHELIAL CELL,UR RARE /HPF; WBC,URINE 0-2 /HPF
--- NOTE | 2017-10-25 02:28 | ED General ---
General Chief Complaint: Respiratory Problems Stated Complaint: SOA Nursing Triage Note: PT TO ED 8 PER EMS FOR C/O SOB ONSET WHILE SLEEPING THAT WOKE HER. UPON ARRIVAL, EMS FOUND PT TO BE 70% ON RA, LOBORED BREATHING W/ RHONCHI THROUGHOUT. AFTER BREATHING TX X1, SPO2 IMPROVED TO 80%. PT PRESENTLY ON CPAP W/ SPO2 AT 90-95%. NO OTHER C/O VOICED Nursing Sepsis Screen: No Definite Risk Source of Information: Patient, EMS Exam Limitations: No Limitations History of Present Illness Date Seen by Provider: Oct 25, 2017 Time Seen by Provider: 01:18 Initial Comments Here with report of shortness of breath that started this evening. Apparently woke her up. EMS found her with O2 sat of 70 percent and placed her on CPAP which then improved her O2 sat to the mid 80s. DuoNeb was initiated and this did increase her saturations further into the 90s. Patient reports that she's had recent fever. She's had a few admissions this year for pneumonia and/or COPD. Does report cough. Denies chest pain or vomiting. Timing/Duration: 2-3 Days, Getting Worse Severity: Moderate, Severe Associated Systoms: No Chest Pain; Cough, Fever/Chills; No Nausea/Vomiting; Shortness of Air; No Weakness Allergies and Home Medications Allergies Coded Allergies: propoxyphene napsylate (Unverified Allergy, Severe, SEVERE NAUSEA AND VOMITING , 04/03/13) meperidine (Unverified Allergy, Unknown, 12/19/14) venom-honey bee (Verified Allergy, Unknown, 09/19/13) lisinopril (Verified Adverse Reaction, Unknown, PT STATES "BOTTOMS OUT" HER BLOOD PRESSURE, 03/12/15) Patient states that it "bottoms out" her blood pressure. She will refuse to take this medication and reports it as an allergy. Home Medications Acetaminophen 500 Mg Tablet, 1,000 MG PO Q6H PRN for PAIN-MILD, (Reported) Albuterol Sulfate 1 Puff Puff, 2 PUFF IH Q4H PRN for WHEEZING, (Reported) 1 PUFF = 90 MCG Albuterol Sulfate 2.5 Mg/3 Ml Vial.neb, 2.5 MG NEB Q4H PRN for SHORTNESS OF BREATH, (Reported) Atorvastatin Calcium 20 Mg Tablet, 20 MG PO HS, (Reported) LAST FILLED #90 05-03-17 Carvedilol 12.5 Mg Tablet, 12.5 MG PO BID, (Reported) Cholecalciferol (Vitamin D3) 1,000 Unit Capsule, 1,000 UNIT PO HS, (Reported) Fluticasone/Vilanterol 1 Each Blst.w.dev, 1 PUFF IH DAILY, (Reported) LAST FILLED 06-02-17 Furosemide 20 Mg Tablet, 20 MG PO DAILY, (Reported) Gabapentin 300 Mg Capsule, 300 MG PO 1800, (Reported) Hydralazine HCl 25 Mg Tablet, 25 MG PO BID, (Reported) Hydroxyzine HCl 10 Mg Tablet, 10 MG PO TID PRN for ANXIETY, (Reported) LAST FILLED #90 06-28-17 Isosorbide Mononitrate 30 Mg Tab.er.24h, 60 MG PO DAILY, (Reported) TAKES 2 (30MG) TABLETS Levothyroxine Sodium 100 Mcg Tablet, 100 MCG PO DAILY, (Reported) Loperamide HCl 2 Mg Tablet, 2 MG PO UD PRN for DIARRHEA, (Reported) Loratadine 10 Mg Tablet, 10 MG PO DAILY, (Reported) Magnesium Oxide 400 Mg Tablet, 400 MG PO DAILY, (Reported) Melatonin 5 Mg Tab.ir.er, 5 MG PO HS, (Reported) Montelukast Sodium 10 Mg Tablet, 10 MG PO HS, (Reported) Omeprazole 40 Mg Capsule.dr, 40 MG PO DAILY, (Reported) Pnv with Ca,No.72/Iron,Carb/FA 1 Each Tablet, 1 TAB PO DAILY, (Reported) Trazodone HCl 150 Mg Tablet, 150-225 MG PO HS, (Reported) LAST FILLED #45 06-29-17 TAKES 1 TO 1 & 1/2 (150MG) TABLET Umeclidinium Holden 62.5 Mcg Blst.w.dev, 1 PUFF IH DAILY, (Reported) Patient Home Medication List Home Medication List Reviewed: Yes Review of Systems Constitutional: see HPI; No chills; fever EENTM: no symptoms reported Respiratory: see HPI, short of breath, wheezing Cardiovascular: No chest pain, No palpitations Gastrointestinal: No abdominal pain, No vomiting Genitourinary: no symptoms reported : No Musculoskeletal: no symptoms reported Skin: no symptoms reported All Other Systems Reviewed Negative Unless Noted: Yes Past Sexzgjg-Gztlik-Fbaryu Hx Past Med/Social Hx: Reviewed Nursing Past Med/Soc Hx Patient Social History Alcohol Use: Denies Use Recreational Drug Use: No Smoking Status: Former Smoker Type Used: Cigarettes Former Smoker, Quit: Jul 09, 2017 Recent Foreign Travel: No Contact w/Someone Who Travel: No Recent Infectious Disease Expo: No Recent Hopitalizations: Yes Physical Abuse: No Sexual Abuse: No Mistreated: No Fear: No Immunizations Up To Date Tetanus Booster (TDap): Unknown PED Vaccines UTD: No Date of Pneumonia Vaccine: Mar 30, 2013 Date of Influenza Vaccine: Jul 11, 2017 Seasonal Allergies Seasonal Allergies: Yes Past Medical History Surgeries: Yes (heart cath, DEFIBRILLATOR PLACEMENT ) Cardiac, Section, Defibrillator, Hysterectomy Respiratory: Yes Asthma, Pneumonia, COPD Currently Using CPAP: No Currently Using BIPAP: No Cardiac: Yes (CHF EF 20% non ischemic, left atrial thrombus) Atrial Fibrillation, Cardiomyopathy, Hypertension Neurological: Yes Headaches /Migraines 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 Disorders: Yes (Hysterectomy) 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 Disorders: Denies 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 Sexually Transmitted Disease: No HIV/AIDS: No Genitourinary: Yes Renal Failure Gastrointestinal: Yes (history of elevated transaminases, HX of elevated liver enzymes) Gastroesophageal Reflux, Hiatal Hernia Musculoskeletal: No Arthritis Endocrine: Yes HEENT: Yes Cataract Loss of Vision: Denies Hearing Impairment: Denies Cancer: No Bladder Psychosocial: Yes Sleep Difficulties, Anxiety, Depression Nursing Suicide Risk Score: 0 Integumentary: No Blood Disorders: No Adverse Reaction/Blood Tranf: No Family Medical History Reviewed Nursing Family Hx Cancer 19 FATHER (HODGKINS ) 19 MOTHER (BRAIN TUMOR ) Congenital heart disease 19 MOTHER Congestive heart failure 19 MOTHER Family history: Cardiovascular disease 19 MOTHER G8 SISTER G8 SISTER Family history: Hypertension 19 MOTHER G8 SISTER G8 SISTER Heart disease 19 MOTHER G8 SISTER G8 SISTER History of - respiratory disease 19 MOTHER G8 BROTHER G8 SISTER Heart Disease, Cancer, Hypertension Physical Exam-Suspected Sepsis Physical Exam Vital Signs Vital Signs - First Documented 10/25/17 10/25/17 10/25/17 01:19 01:20 04:25 Temp 95.7 Pulse 94 Resp 16 B/P (MAP) 138/92 (107) Pulse Ox 95 O2 Delivery NIV Bilevel O2 Flow Rate 65.00 FiO2 40 Capillary Refill : Less Than 3 Seconds Blood Pressure Mean: 107 General Appearance: No Apparent Distress, WD/WN HEENT: PERRL/EOMI, Pharynx Normal Neck: Non Tender, Supple Respiratory: Decreased Breath Sounds, Wheezing Cardiovascular: Regular Rate, Rhythm, No Murmur Gastrointestinal: Non Tender, Soft Back: Normal Inspection, No CVA Tenderness, No Vertebral Tenderness Extremity: Normal Range of Motion, Non Tender Neurologic/Psychiatric: Alert, Oriented x3 Skin: normal color, warm/dry Focused Exam Lactate Level 10/25/17 01:25: Lactic Acid Level 1.87 Lactic Acid Level Procedures/Interventions Date of ETT Placement: Aug 20, 2017 Time of ETT Placement: 628 Progress/Results/Core Measures Suspected Sepsis Recent Fever Within 48 Hours: No Infection Criteria Present: None New/Unexplained Altered Menta: No Sepsis Screen: No Definite Risk SIRS Temperature:95.7 Pulse: 83 Respiratory Rate: 21 Laboratory Tests 10/25/17 01:25: White Blood Count 12.4H Blood Pressure 96 /73 Mean: 107 10/25/17 01:25: Lactic Acid Level 1.87 Laboratory Tests 10/25/17 01:25: Creatinine 2.32H, INR Comment 0.9, Platelet Count 327, Total Bilirubin 0.3 Results/Orders Lab Results Laboratory Tests Test 10/25/17 01:25 10/25/17 01:29 10/25/17 01:56 Range/Units White Blood Count 12.4 H 4.3-11.0 10^3/uL Red Blood Count 3.67 L 4.35-5.85 10^6/uL Hemoglobin 11.7 11.5-16.0 G/DL Hematocrit 36 35-52 % Mean Corpuscular Volume 98 80-99 FL Mean Corpuscular Hemoglobin 32 25-34 PG Mean Corpuscular Hemoglobin Concent 33 32-36 G/DL Red Cell Distribution Width 15.3 H 10.0-14.5 % Platelet Count 327 130-400 10^3/uL Mean Platelet Volume 12.5 H 7.4-10.4 FL Neutrophils (%) (Auto) 74 42-75 % Lymphocytes (%) (Auto) 16 12-44 % Monocytes (%) (Auto) 8 0-12 % Eosinophils (%) (Auto) 2 0-10 % Basophils (%) (Auto) 1 0-10 % Neutrophils # (Auto) 9.1 H 1.8-7.8 X 10^3 Lymphocytes # (Auto) 2.0 1.0-4.0 X 10^3 Monocytes # (Auto) 1.0 0.0-1.0 X 10^3 Eosinophils # (Auto) 0.3 0.0-0.3 10^3/uL Basophils # (Auto) 0.1 0.0-0.1 10^3/uL Prothrombin Time 12.6 12.2-14.7 SEC INR Comment 0.9 0.8-1.4 Activated Partial Thromboplast Time 26 24-35 SEC Sodium Level 138 135-145 MMOL/L Potassium Level 4.2 3.6-5.0 MMOL/L Chloride Level 99 98-107 MMOL/L Carbon Dioxide Level 25 21-32 MMOL/L Anion Gap 14 5-14 MMOL/L Blood Urea Nitrogen 24 H 7-18 MG/DL Creatinine 2.32 H 0.60-1.30 MG/DL Estimat Glomerular Filtration Rate 22 BUN/Creatinine Ratio 10 Glucose Level 163 H 70-105 MG/DL Lactic Acid Level 1.87 0.50-2.00 MMOL/L Calcium Level 9.7 8.5-10.1 MG/DL Total Bilirubin 0.3 0.1-1.0 MG/DL Aspartate Amino Transf (AST/SGOT) 25 5-34 U/L Alanine Aminotransferase (ALT/SGPT) 20 0-55 U/L Alkaline Phosphatase 110 40-136 U/L B-Type Natriuretic Peptide 812.7 H <100.0 PG/ML Total Protein 8.0 6.4-8.2 GM/DL Albumin 3.9 3.2-4.5 GM/DL Blood Gas Puncture Site R RAD Blood Gas Patient Temperature 97.5 Arterial Blood pH 7.32 *L 7.37-7.43 Arterial Blood Partial Pressure CO2 55 H 35-45 MMHG Arterial Blood Partial Pressure O2 66 L 79-93 MMHG Arterial Blood HCO3 27 23-27 MMOL/L Arterial Blood Total CO2 29.2 21.0-31.0 MMOL/L Arterial Blood Oxygen Saturation 92 L 94-100 % Arterial Blood Base Excess 1.8 -2.5-2.5 MMOL/L Hank Test YES-POS Blood Gas Ventilator Setting NO Blood Gas Inspired Oxygen 65% BIPAP Urine Color YELLOW Urine Clarity CLEAR Urine pH 6 5-9 Urine Specific [place] 1.015 L 1.016-1.022 Urine Protein 3+ H NEGATIVE Urine Glucose (UA) NEGATIVE NEGATIVE Urine Ketones NEGATIVE NEGATIVE Urine Nitrite NEGATIVE NEGATIVE Urine Bilirubin NEGATIVE NEGATIVE Urine Urobilinogen NORMAL NORMAL MG/DL Urine Leukocyte Esterase 1+ H NEGATIVE Urine RBC (Auto) 2+ H NEGATIVE Urine RBC 0-2 /HPF Urine WBC 0-2 /HPF Urine Squamous Epithelial Cells RARE /HPF Urine Crystals NONE /LPF Urine Bacteria TRACE /HPF Urine Casts PRESENT /LPF Urine Hyaline Casts 5-10 H /LPF Urine Mucus MODERATE H /LPF Urine Culture Indicated NO My Orders Orders - JOSHUA CHOI MD Arterial Blood Gas (10/25/17:30) Cbc With Automated Diff (10/25/17) Comprehensive Metabolic Panel (10/25/17) Lactic Acid Analyzer (10/25/17) Blood Culture (10/25/17) Sputum Culture (10/25/1731) Ua Culture If Indicated (10/25/17) Protime With Inr (10/25/17) Partial Thromboplastin Time (10/25/17:31) Chest 1 View, Ap/Pa Only (10/25/17:31) O2 (10/25/17:31) Vital Signs Adult Sepsis Patie Q1H (10/25/17:31) Remove Rings In Anticipation O (10/25/17:31) Ns Iv 500 Ml (Sodium Chloride 0.9%) (10/25/17:31) Albuterol Pre-Mix Nebs (Rt) (Proventil (10/25/17:31) Svn Small Volume Nebulizer (10/25/17:31) Methylprednisolone Sod Succ (Solu-Medrol (10/25/17 01:31) BNP (10/25/17 01:44) Piperacillin Sodium/Tazobactam (Zosyn Vi (10/25/17 02:30) Medications Given in ED Current Medications Medications Dose Ordered Sig/Cade Route Start Time Stop Time Status Last Admin Dose Admin Piperacillin Sod/ Tazobactam Sod 4.5 gm/Dextrose 100 ml @ 200 mls/hr ONCE ONCE IV 10/25/17 02:30 10/25/17 02:59 DC 10/25/17 02:46 200 MLS/HR Sodium Chloride 500 ml @ 0 mls/hr Q0M ONCE IV 10/25/17 01:31 10/25/17 01:34 DC 10/25/17 01:49 500 MLS/HR Vital Signs/I&O 10/25/17 10/25/17 10/25/17 10/25/17 01:19 01:19 01:20 01:46 Temp 95.7 Pulse 94 94 83 Resp 16 27 21 B/P (MAP) 138/92 (107) Pulse Ox 95 92 92 94 O2 Delivery NIV Bilevel NIV/CPAP O2 Flow Rate 65.00 70.00 10/25/17 10/25/17 10/25/17 10/25/17 03:42 03:50 03:50 04:04 Temp 96.1 96.7 Pulse 69 87 86 67 Resp 16 30 18 B/P (MAP) 96/46 125/95 (105) Pulse Ox 100 99 100 O2 Delivery NIV CPAP NIV Bilevel O2 Flow Rate 50.00 50.00 10/25/17 10/25/17 04:07 04:25 Pulse 87 Pulse Ox 99 95 O2 Delivery NIV Bilevel FiO2 40 Capillary Refill : Less Than 3 Seconds Blood Pressure Mean: 107 Progress Note : Progress Note Seen and evaluated. Converted from CPAP to BiPAP on arrival. IV, labs, chest x -ray, UA, blood cultures, lactic acid, sputum culture and ABG ordered. Albuterol neb 2. O2 saturations in the mid 90s. Monitor patient. 0220: Dose in 4.5 g IV ordered as patient has fairly prominent right lower lobe infiltrate. BNP is elevated but much less than on previous hospitalizations. There may be a component of failure but this looks more like pneumonia on the chest x-ray. Patient to be admitted. Doing well on BiPAP at 18/80 and FiO2 70 percent. I discussed case with Dr. Howell. She accepts patient for admission to the ICU. 0340: Patient did receive her so sent IV. Did note some transient hypotension while sleeping. This improved when she woke back. Patient does not have elevation in her lactic acid at this time and she does have history of CHF. I think it would be disadvantageous to give high-volume fluid resuscitation and this patient at this time as she is improving and it appears to be transient hypotension. Could consider pressors or fluids if this is persistent. This was discussed with the patient and family who agree. BiPAP settings changed to FiO2 of 50 percent as she is satting 100 percent currently. I attest focused exam at this time and patient is overall much improved and said arrival. Patient to go to ICU. Diagnostic Imaging Diagonstic Imaging: Xray Plain Films/CT/US/NM/MRI: chest Comments Right lower lobe and/or multilobar infiltrate on the right. Pulmonary vascular congestion noted. Departure Communication (Admissions) Time/Spoke to Admitting Phy: 02:20 Impression Primary Impression: Right lower lobe pneumonia Qualified Codes: J18.1 - Lobar pneumonia, unspecified organism Additional Impression: Respiratory failure with hypoxia and hypercapnia Qualified Codes: J96.01 - Acute respiratory failure with hypoxia; J96.02 - Acute respiratory failure with hypercapnia Disposition: ADMITTED INPATIENT Condition: Stable Admissions Decision to Admit Reason: Admit from ER (General) Decision to Admit/Date: Oct 25, 2017 Time/Decision to Admit Time: 02:20 Departure-Patient Inst. Decision time for Depature: 02:20 Referrals: TEAGAN VERNON MD (PCP/Family) Primary Care Physician JOSHUA CHOI MD Oct 25, 2017 02:28
[2017-10-25] MEDS ORDERED: PIPERACILLIN SODIUM/TAZOBACTAM 4.5 GM in D5W 100 ML IVPB 100 ML IV ONE (02:30)
[2017-10-25] MEDS: NS IV 1000 ML 1,000 ML IV SCH ×3 (04:52→16:42)
[2017-10-25] MEDS ORDERED: VANCOMYCIN 2000 MG/NS 500 ML IVPB IV SCH ×2 (05:15)
[2017-10-25] MEDS: methylPREDNISolone 125 MG (Solu-MEDROL) VIAL IV SCH ×3 (05:24→20:41)
[2017-10-25] MEDS ORDERED: KCL 20 MEQ TAB (K-DUR) PO SCH (06:00)
[2017-10-25] MEDS ORDERED: MAGNESIUM 1 GM/100 ML IVPB 100 ML IV SCH (06:00)
[2017-10-25] MEDS ORDERED: POTASSIUM CL 10MEQ/50ML IVPB 50 ML IV SCH (06:00)
[2017-10-25] MEDS: RT-ALBUTEROL/IPRATROPIUM 3 ML (DUONEB) VIAL INH SCH ×5 (06:34→22:34)
[2017-10-25] MEDS ORDERED: VANCOMYCIN 1500 MG/NS 500 ML IVPB IV NR ×2 (07:00)
--- NOTE | 2017-10-25 07:53 | Diagnostic Imaging Report ---
INDICATION: Shortness of air. TECHNIQUE: Single view chest 1:40 AM. CORRELATION STUDY: 08/21/2017 FINDINGS: Left-sided ACD remains in place. Heart size enlarged. Vasculature overall appearing improved and relatively normal on followup. Extensive opacification throughout the right lung is present, may reflect asymmetric edema versus infiltrate. Findings most pronounced along the lung base. IMPRESSION: 1. Diffuse opacity throughout the right lung may reflect underlying the asymmetric infiltrate or edema throughout the right lung. Findings most pronounced involving the right lower lobe suspect for more focal area of consolidation. Dictated by: Dictated on workstation # [id number]
[2017-10-25] MEDS ORDERED: PIPERACILLIN SODIUM/TAZOBACTAM 4.5 GM in NS (IVPB) 100 ML IV SCH (08:30)
[2017-10-25] MEDS: PIPERACILLIN SODIUM/TAZOBACTAM 4.5 GM in NS (IVPB) 100 ML IV SCH ×2 (11:32→17:22)
--- NOTE | 2017-10-25 11:52 | H&P Pediatric ---
HPI History of Present Illness: Time Seen by Provider: 12:36 Attending Physician Malika Burgos DO PCP Lalita Dubose MD Consult Date of Admission Oct 25, 2017 at 02:36 Home Medications Home Medications Reviewed patient Home Medication Reconciliation performed by pharmacy medication reconciliations health type technician and/or nursing. Patients Allergies have been reviewed. Allergies Coded Allergies: propoxyphene napsylate (Unverified Allergy, Severe, SEVERE NAUSEA AND VOMITING , 04/03/13) meperidine (Unverified Allergy, Unknown, 12/19/14) venom-honey bee (Verified Allergy, Unknown, 09/19/13) lisinopril (Verified Adverse Reaction, Unknown, PT STATES "BOTTOMS OUT" HER BLOOD PRESSURE, 03/12/15) Patient states that it "bottoms out" her blood pressure. She will refuse to take this medication and reports it as an allergy. PMH-Pediatrics Patient Social History Physical Abuse Screen: No Sexual Abuse: No Recent Foreign Travel: No Contact w/other who traveled: No Recent Infectious Disease Expo: No Hospitalization with Isolation: Denies Immunizations Up To Date Tetanus Booster (TDap): Unknown Date of Pneumonia Vaccine: Mar 30, 2013 Date of Influenza Vaccine: Jul 11, 2017 Seasonal Allergies Seasonal Allergies: Yes Past Medical History COPD with oxygen dependence at home HTN Hypothyroidism HLD Stage IV CKD Macrocytic Anemia Insomnia Family Medical History Significant Family History: Heart Disease, Cancer, Hypertension Patient History: Cancer 19 FATHER (HODGKINS ) 19 MOTHER (BRAIN TUMOR ) Congenital heart disease 19 MOTHER Congestive heart failure 19 MOTHER Family history: Cardiovascular disease 19 MOTHER G8 SISTER G8 SISTER Family history: Hypertension 19 MOTHER G8 SISTER G8 SISTER Heart disease 19 MOTHER G8 SISTER G8 SISTER History of - respiratory disease 19 MOTHER G8 BROTHER G8 SISTER Review of Systems (CHC) Constitutional: see HPI Physical Exam-Pediatric Physical Exam Vital Signs Vital Signs - First Documented 10/25/17 10/25/17 10/25/17 01:19 01:20 04:25 Temp 95.7 Pulse 94 Resp 16 B/P (MAP) 138/92 (107) Pulse Ox 95 O2 Delivery NIV Bilevel O2 Flow Rate 65.00 FiO2 40 Capillary Refill : Less Than 3 Seconds General Appearance: see HPI Assessment/Plan Assessment/Plan Admission Status: Inpatient Order (span 2 midnights) Reason for Inpatient Admission: see above MALIKA BURGOS DO Oct 25, 2017 11:52
[2017-10-25] MEDS ORDERED: FURO-124 PO (12:03)
[2017-10-25] MEDS ORDERED: AMIO200T2 PO (12:03)
[2017-10-25] MEDS ORDERED: CARV6.252 PO (12:03)
[2017-10-25] MEDS ORDERED: MAGN500T PO (12:03)
[2017-10-25] MEDS ORDERED: LORA0.5T PO (12:03)
[2017-10-25] MEDS: hydrALAZINE (APRESOLINE) 25 MG TAB PO SCH ×2 (12:27→20:42)
[2017-10-25 12:35] LABS: BASOPHILS % (AUTO) 0 % (0-10); EOSINOPHILS % (AUTO) 0 % (0-10); HEMATOCRIT 32 % (35-52); HEMOGLOBIN 10.3 G/DL (11.5-16.0); LYMPHOCYTES # (AUTO) 0.5 X 10^3 (1.0-4.0); LYMPHOCYTES % (AUTO) 5 % (12-44); MEAN CORPUSCULAR HEMOGLOBIN 31 PG (25-34); MEAN CORPUSCULAR HGB CONC 32 G/DL (32-36); MEAN CORPUSCULAR VOLUME 97 FL (80-99); MEAN PLATELET VOLUME 12.2 FL (7.4-10.4); MONOCYTES # (AUTO) 0.1 X 10^3 (0.0-1.0); MONOCYTES % (AUTO) 1 % (0-12); NEUTROPHILS # (AUTO) 8.8 X 10^3 (1.8-7.8); NEUTROPHILS % (AUTO) 95 % (42-75); PLATELET COUNT 241 10^3/uL (130-400); RED BLOOD COUNT 3.29 10^6/uL (4.35-5.85); RED CELL DISTRIBUTION WIDTH 14.9 % (10.0-14.5); WHITE BLOOD COUNT 9.3 10^3/uL (4.3-11.0)
[2017-10-25 12:51] LABS: CALCIUM 9.3 MG/DL (8.5-10.1); CREATININE SERUM 2.07 MG/DL (0.60-1.30); PHOSPHORUS 2.8 MG/DL (2.3-4.7)
[2017-10-25 13:01] LABS: EOSINOPHILS % (MANUAL) 0 %; LYMPHOCYTES % (MANUAL) 8 %; MONOCYTES % (MANUAL) 1 %; NEUTROPHILS % (MANUAL) 91 %; RBC MORPH NORMAL
[2017-10-25] MEDS: AMIODARONE 200 MG (CORDARONE) TAB PO SCH (13:17)
[2017-10-25] MEDS: ENOXAPARIN 30 MG/0.3 ML (LOVENOX) SYR SC SCH (13:17)
[2017-10-25] MEDS: ACETAMINOPHEN 500 MG TAB (TYLENOL) PO PRN (17:22)
[2017-10-25] MEDS: CARVEDILOL 6.25 MG (COREG) TAB PO SCH (20:42)
[2017-10-25] MEDS: LORazepam 0.5 MG (ATIVAN) TABLET PO SCH (20:42)
--- NOTE | 2017-10-25 20:59 | History & Physicial (CHS) ---
HPI History of Present Illness: 57 year old female who presented to ED last night with abrupt onset of shortness of breath and was requiring BiPap with FiO2 65% to maintain her O2 sats. Pt had hospitalization at the end of July at this facility and was transferred to [facility] secondary to afib with RVR and renal failure. When discharged from [facility], the patient reports she went to a SNF for rehab and was discharged home on 09/23. She reports she has been doing well at home, other than a fall on Friday while she was wearing slippers, but reports that she didn't get hurt, other than a scratch on her left knee and left hand. Source: patient, RN/MD, RN notes reviewed, old records Exam Limitations: no limitations Date seen by provider: Oct 25, 2017 Time Seen by Provider: 12:36 Attending Physician Malika Howell Holly R MD Consult Date of Admission Oct 25, 2017 at 02:36 Home Medications Home Medications Reviewed patient Home Medication Reconciliation performed by pharmacy medication reconciliations marine fisheries technician and/or nursing. Patients Allergies have been reviewed. Allergies Coded Allergies: propoxyphene napsylate (Unverified Allergy, Severe, SEVERE NAUSEA AND VOMITING , 04/03/13) meperidine (Unverified Allergy, Unknown, 12/19/14) venom-honey bee (Verified Allergy, Unknown, 09/19/13) lisinopril (Verified Adverse Reaction, Unknown, PT STATES "BOTTOMS OUT" HER BLOOD PRESSURE, 03/12/15) Patient states that it "bottoms out" her blood pressure. She will refuse to take this medication and reports it as an allergy. [id number] Hx Patient Social History Marrital Status: Living Status: lives independently Employed/Student: unemployed Alcohol Use: Denies Use Recreational Drug Use: No Smoking Status: Former Smoker Former smoker/When Quit: Jan 04, 2013 Type Used: Cigarettes 2nd Hand Smoke Exposure: No Recent Foreign Travel: No Contact w/other who traveled: No Recent Hopitalizations: Yes (discharged from SNF 09/23/17) Recent Infectious Disease Expo: No Physical Abuse Screen: No Sexual Abuse: No Immunizations Up To Date Tetanus Booster (TDap): Unknown Date of Pneumonia Vaccine: Mar 30, 2013 Date of Influenza Vaccine: Jul 11, 2017 Past Medical History COPD with oxygen dependence at home HTN Hypothyroidism HLD Stage IV CKD Macrocytic Anemia Insomnia Paroxysmal Afib Systolic and Diastolic Heart Failure Family Medical History Significant Family History: Heart Disease, Cancer, Hypertension Family History: Cancer 19 FATHER (HODGKINS ) 19 MOTHER (BRAIN TUMOR ) Congenital heart disease 19 MOTHER Congestive heart failure 19 MOTHER Family history: Cardiovascular disease 19 MOTHER G8 SISTER G8 SISTER Family history: Hypertension 19 MOTHER G8 SISTER G8 SISTER Heart disease 19 MOTHER G8 SISTER G8 SISTER History of - respiratory disease 19 MOTHER G8 BROTHER G8 SISTER Review of Systems (CHC) Constitutional: see HPI EENTM: no symptoms reported Respiratory: see HPI, dyspnea on exertion, short of breath, wheezing Cardiovascular: no symptoms reported; No chest pain, No palpitations, No syncope Gastrointestinal: no symptoms reported; No constipation, No diarrhea, No dysphagia, No nausea, No vomiting Genitourinary: no symptoms reported : No Musculoskeletal: no symptoms reported Skin: no symptoms reported Psychiatric/Neurological: No Symptoms Reported Reviewed Test Results Reviewed Test Results Lab 10/25/17 01:25: Lactic Acid Level 1.87 Laboratory Tests Test 10/25/17 01:25 10/25/17 01:29 10/25/17 01:56 10/25/17 12:21 Range/Units White Blood Count 12.4 H 9.3 4.3-11.0 10^3/uL Red Blood Count 3.67 L 3.29 L 4.35-5.85 10^6/uL Hemoglobin 11.7 10.3 L 11.5-16.0 G/DL Hematocrit 36 32 L 35-52 % Mean Corpuscular Volume 98 97 80-99 FL Mean Corpuscular Hemoglobin 32 31 25-34 PG Mean Corpuscular Hemoglobin Concent 33 32 32-36 G/DL Red Cell Distribution Width 15.3 H 14.9 H 10.0-14.5 % Platelet Count 327 241 130-400 10^3/uL Mean Platelet Volume 12.5 H 12.2 H 7.4-10.4 FL Neutrophils (%) (Auto) 74 95 H 42-75 % Lymphocytes (%) (Auto) 16 5 L 12-44 % Monocytes (%) (Auto) 8 1 0-12 % Eosinophils (%) (Auto) 2 0 0-10 % Basophils (%) (Auto) 1 0 0-10 % Neutrophils # (Auto) 9.1 H 8.8 H 1.8-7.8 X 10^3 Lymphocytes # (Auto) 2.0 0.5 L 1.0-4.0 X 10^3 Monocytes # (Auto) 1.0 0.1 0.0-1.0 X 10^3 Eosinophils # (Auto) 0.3 0.0 0.0-0.3 10^3/uL Basophils # (Auto) 0.1 0.0 0.0-0.1 10^3/uL Prothrombin Time 12.6 12.2-14.7 SEC INR Comment 0.9 0.8-1.4 Activated Partial Thromboplast Time 26 24-35 SEC Sodium Level 138 137 135-145 MMOL/L Potassium Level 4.2 5.0 3.6-5.0 MMOL/L Chloride Level 99 103 98-107 MMOL/L Carbon Dioxide Level 25 24 21-32 MMOL/L Anion Gap 14 10 5-14 MMOL/L Blood Urea Nitrogen 24 H 22 H 7-18 MG/DL Creatinine 2.32 H 2.07 H 0.60-1.30 MG/DL Estimat Glomerular Filtration Rate 22 25 BUN/Creatinine Ratio 10 11 Glucose Level 163 H 148 H 70-105 MG/DL Lactic Acid Level 1.87 0.50-2.00 MMOL/L Calcium Level 9.7 9.3 8.5-10.1 MG/DL Total Bilirubin 0.3 0.1-1.0 MG/DL Aspartate Amino Transf (AST/SGOT) 25 5-34 U/L Alanine Aminotransferase (ALT/SGPT) 20 0-55 U/L Alkaline Phosphatase 110 40-136 U/L B-Type Natriuretic Peptide 812.7 H <100.0 PG/ML Total Protein 8.0 6.4-8.2 GM/DL Albumin 3.9 3.2-4.5 GM/DL Blood Gas Puncture Site R RAD Blood Gas Patient Temperature 97.5 Arterial Blood pH 7.32 *L 7.37-7.43 Arterial Blood Partial Pressure CO2 55 H 35-45 MMHG Arterial Blood Partial Pressure O2 66 L 79-93 MMHG Arterial Blood HCO3 27 23-27 MMOL/L Arterial Blood Total CO2 29.2 21.0-31.0 MMOL/L Arterial Blood Oxygen Saturation 92 L 94-100 % Arterial Blood Base Excess 1.8 -2.5-2.5 MMOL/L Hank Test YES-POS Blood Gas Ventilator Setting NO Blood Gas Inspired Oxygen 65% BIPAP Urine Color YELLOW Urine Clarity CLEAR Urine pH 6 5-9 Urine Specific [place] 1.015 L 1.016-1.022 Urine Protein 3+ H NEGATIVE Urine Glucose (UA) NEGATIVE NEGATIVE Urine Ketones NEGATIVE NEGATIVE Urine Nitrite NEGATIVE NEGATIVE Urine Bilirubin NEGATIVE NEGATIVE Urine Urobilinogen NORMAL NORMAL MG/DL Urine Leukocyte Esterase 1+ H NEGATIVE Urine RBC (Auto) 2+ H NEGATIVE Urine RBC 0-2 /HPF Urine WBC 0-2 /HPF Urine Squamous Epithelial Cells RARE /HPF Urine Crystals NONE /LPF Urine Bacteria TRACE /HPF Urine Casts PRESENT /LPF Urine Hyaline Casts 5-10 H /LPF Urine Mucus MODERATE H /LPF Urine Culture Indicated NO Neutrophils % (Manual) 91 % Lymphocytes % (Manual) 8 % Monocytes % (Manual) 1 % Eosinophils % (Manual) 0 % Blood Morphology Comment NORMAL Phosphorus Level 2.8 2.3-4.7 MG/DL Magnesium Level 2.0 1.8-2.4 MG/DL C-Reactive Protein High Sensitivity 1.51 H 0.00-0.50 MG/DL Radiology Date of Exam: 10/25/17 CHEST 1 VIEW, AP/PA ONLY INDICATION: Shortness of air. TECHNIQUE: Single view chest 1:40 AM. CORRELATION STUDY: 08/21/2017 FINDINGS: Left-sided ACD remains in place. Heart size enlarged. Vasculature overall appearing improved and relatively normal on followup. Extensive opacification throughout the right lung is present, may reflect asymmetric edema versus infiltrate. Findings most pronounced along the lung base. IMPRESSION: 1. Diffuse opacity throughout the right lung may reflect underlying the asymmetric infiltrate or edema throughout the right lung. Findings most pronounced involving the right lower lobe suspect for more focal area of consolidation. Physical Exam-(CHC) Physical Exam Vital Signs VS - Last 72 Hours, by Label 10/25/17 10/25/17 10/25/17 10/25/17 01:19 01:19 01:20 01:46 Temp 95.7 Pulse 94 94 83 Resp 16 27 21 B/P (MAP) 138/92 (107) Pulse Ox 95 92 92 94 O2 Delivery NIV Bilevel NIV/CPAP O2 Flow Rate 65.00 70.00 10/25/17 10/25/17 10/25/17 10/25/17 03:42 03:50 03:50 04:04 Temp 96.1 96.7 Pulse 69 87 86 67 Resp 16 30 18 B/P (MAP) 96/46 125/95 (105) Pulse Ox 100 99 100 O2 Delivery NIV CPAP NIV Bilevel O2 Flow Rate 50.00 50.00 10/25/17 10/25/17 10/25/17 10/25/17 04:07 04:25 05:00 06:00 Pulse 87 65 65 Resp 13 12 B/P (MAP) 115/61 (79) 108/58 (75) Pulse Ox 99 95 93 94 O2 Delivery NIV Bilevel NIV Bilevel NIV Bilevel O2 Flow Rate 40.00 40.00 FiO2 40 10/25/17 10/25/17 10/25/17 10/25/17 06:34 06:48 07:00 07:00 Pulse 64 63 64 Resp 12 14 B/P (MAP) 112/57 (75) Pulse Ox 95 92 O2 Delivery Nasal Cannula NIV Bilevel O2 Flow Rate 40.00 30.00 40.00 10/25/17 10/25/17 10/25/17 10/25/17 08:00 08:00 08:13 09:00 Pulse 60 63 88 Resp 12 15 26 B/P (MAP) 117/61 (79) 100/51 (67) Pulse Ox 94 95 95 94 O2 Delivery NIV Bilevel NIV Bilevel NIV Bilevel O2 Flow Rate 35.00 40.00 40.00 40.00 10/25/17 10/25/17 10/25/17 10/25/17 10:00 10:18 10:32 11:00 Pulse 61 74 66 Resp 12 15 14 B/P (MAP) 105/53 (70) 112/58 (76) Pulse Ox 95 98 92 90 O2 Delivery NIV Bilevel Vapotherm Vapotherm O2 Flow Rate 40.00 40.00 20.00 40.00 20.00 FiO2 40 10/25/17 10/25/17 10/25/17 10/25/17 12:00 12:00 13:00 13:00 Pulse 67 76 76 Resp 15 12 B/P (MAP) 123/67 (85) 122/56 (78) Pulse Ox 94 90 94 O2 Delivery NIV Bilevel Vapotherm Vapotherm O2 Flow Rate 35.00 40.00 40.00 20.00 20.00 4/28/18 10/25/17 10/25/17 10/25/17 14:00 14:40 15:15 15:55 Temp 98.6 99.1 Pulse 78 78 75 Resp 17 20 18 B/P (MAP) 102/54 (70) 132/60 (84) 131/58 (82) Pulse Ox 92 95 94 94 O2 Delivery Vapotherm Vapotherm Vapotherm Vapotherm O2 Flow Rate 40.00 40.00 20.00 35.00 20.00 20.00 20.00 FiO2 40 10/25/17 10/25/17 19:04 19:36 Temp 97.8 Pulse 81 Resp 18 B/P (MAP) 122/75 (91) Pulse Ox 93 96 O2 Delivery Vapotherm Vapotherm O2 Flow Rate 20.00 40.00 18.00 FiO2 40 Capillary Refill : Less Than 3 Seconds General Appearance: WD/WN, no apparent distress Eyes: Bilateral Eye Normal Inspection, Bilateral Eye EOMI HEENT: PERRL/EOMI; No scleral icterus (R), No scleral icterus (L), No photophobia Neck: non-tender, full range of motion, supple, normal inspection Respiratory: chest non-tender, decreased breath sounds, wheezing Cardiovascular: normal peripheral pulses, regular rate, rhythm, no gallop Gastrointestinal: normal bowel sounds, non tender, soft, no organomegaly, no pulsatile mass; No guarding, No rebound Rectal: deferred Back: normal inspection, no CVA tenderness, no vertebral tenderness Extremities: normal range of motion, non-tender, normal inspection, normal capillary refill Neurologic/Psychiatric: relationship banker II-XII nml as tested, no motor/sensory deficits, alert, normal mood/affect, oriented x 3 Skin: normal color, warm/dry Lymphatic: no adenopathy Assessment/Plan Assessment/Plan Admission Dx Sepsis RLL PNA Acute on Chronic Respiratory Failure Acute on Chronic Congestive Heart Failure CKD Stage Paroxysmal Afib COPD with dependence on supplemental O2 Depression and Anxiety HTN Cardiomyopathy Admission Status: Inpatient Order (span 2 midnights) Reason for Inpatient Admission: see admission dx (1) Sepsis Status: Acute Assessment & Plan: 10/25 secondary to PNA with tachypnea, elevated CRP and WBC, worsening renal function and exacerbation of heart failure Qualifiers: Qualified Codes: A41.9 - Sepsis, unspecified organism (2) Acute on chronic respiratory failure with hypoxia and hypercapnia Status: Acute Assessment & Plan: 10/25 -blood gas in ED on BiPap 65% --> -pH 7.32, pCO2 55, pO2 66 -transitioned to vapotherm this AM, tolerating well (3) Right lower lobe pneumonia Status: Acute Assessment & Plan: 10/25 -discharge from SNF 09/23 -Day 1 Vanc and Zosyn for HCAP -WBC 12.4 --> 9.3 -CRP 1.51 -MAT protocol -IV solumedrol 125 mg in ED, now 80 mg IVP q8H Qualifiers: Qualified Codes: J18.1 - Lobar pneumonia, unspecified organism (4) HCAP (healthcare-associated pneumonia) Status: Acute Assessment & Plan: see above RLL PNA for details (5) Acute on chronic systolic CHF (congestive heart failure) Status: Acute Assessment & Plan: 10/25 -pt has ICD -last EF 20% in Jul 2017 per cardiology consultation -BNP on admission 812 -when seen in AM, shortness of breath improving; will hold on diuresis and monitor renal function for now (6) Chronic kidney disease, stage 4, severely decreased GFR Status: Chronic (7) Paroxysmal atrial fibrillation Status: Chronic Assessment & Plan: 10/25 -currently in sinus on telemetry -resume home amiodarone (8) HTN (hypertension) Status: Chronic Assessment & Plan: 10/25 -resume home medication - hydralazine 25 mg PO BID Qualifiers: Qualified Codes: I10 - Essential (primary) hypertension (9) COPD (chronic obstructive pulmonary disease) Status: Chronic Qualifiers: Qualified Codes: J44.0 - Chronic obstructive pulmonary disease with acute lower respiratory infection (10) Nonischemic cardiomyopathy Status: Chronic Assessment & Plan: 10/25 -pt has ICD -last EF 20% in Jul 2017 per cardiology consultation (11) Hypothyroidism Status: Chronic Assessment & Plan: 10/25 -not currently on medication -will check TSH in AM Qualifiers: Qualified Codes: E03.9 - Hypothyroidism, unspecified (12) DVT prophylaxis Status: Acute Assessment & Plan: 10/25 Lovenox 30 mg SQ daily, renal dosed Clinical Quality Measures DVT/VTE Risk/Contraindication: Risk Factor Score Per Nursin RFS Level Per Nursing on Admit: 4+=Very High Copy Copies To 1: TEAGAN VERNON MD, MARGARET E DO Oct 25, 2017 20:59
[2017-10-26] MEDS: RT-ALBUTEROL/IPRATROPIUM 3 ML (DUONEB) VIAL INH SCH ×6 (02:40→22:12)
[2017-10-26] MEDS: PIPERACILLIN SODIUM/TAZOBACTAM 4.5 GM in NS (IVPB) 100 ML IV SCH ×3 (02:44→18:04)
[2017-10-26] MEDS: NS IV 1000 ML 1,000 ML IV SCH (02:45)
[2017-10-26 03:21] VITALS: BP 132/67
[2017-10-26 05:17] LABS: BASOPHILS % (AUTO) 0 % (0-10); EOSINOPHILS % (AUTO) 0 % (0-10); HEMATOCRIT 31 % (35-52); LYMPHOCYTES # (AUTO) 0.6 X 10^3 (1.0-4.0); LYMPHOCYTES % (AUTO) 5 % (12-44); MEAN CORPUSCULAR HEMOGLOBIN 31 PG (25-34); MEAN CORPUSCULAR HGB CONC 33 G/DL (32-36); MEAN CORPUSCULAR VOLUME 96 FL (80-99); MEAN PLATELET VOLUME 13.4 FL (7.4-10.4); MONOCYTES # (AUTO) 0.3 X 10^3 (0.0-1.0); MONOCYTES % (AUTO) 2 % (0-12); NEUTROPHILS # (AUTO) 11.7 X 10^3 (1.8-7.8); NEUTROPHILS % (AUTO) 93 % (42-75); PLATELET COUNT 236 10^3/uL (130-400); RED CELL DISTRIBUTION WIDTH 14.9 % (10.0-14.5); WHITE BLOOD COUNT 12.6 10^3/uL (4.3-11.0)
[2017-10-26 05:41] LABS: ALBUMIN 3.3 GM/DL (3.2-4.5); BILIRUBIN,TOTAL 0.2 MG/DL (0.1-1.0); CALCIUM 9.2 MG/DL (8.5-10.1); CREATININE SERUM 2.09 MG/DL (0.60-1.30); MAGNESIUM 1.9 MG/DL (1.8-2.4); PHOSPHORUS 2.9 MG/DL (2.3-4.7); POTASSIUM 4.4 MMOL/L (3.6-5.0); TOTAL PROTEIN 6.5 GM/DL (6.4-8.2)
[2017-10-26] MEDS: methylPREDNISolone 125 MG (Solu-MEDROL) VIAL IV SCH (06:05)
[2017-10-26] MEDS ORDERED: predniSONE 20 MG TAB PO SCH ×2 (07:00→08:48)
[2017-10-26 08:30] VITALS: BP 132/84
[2017-10-26] MEDS: VANCOMYCIN INJECTION 500 MG in NS (IVPB) 100 ML IV SCH (08:41)
[2017-10-26] MEDS: hydrALAZINE (APRESOLINE) 25 MG TAB PO SCH ×2 (08:43→20:24)
[2017-10-26] MEDS: CARVEDILOL 6.25 MG (COREG) TAB PO SCH ×2 (08:43→20:24)
[2017-10-26] MEDS: AMIODARONE 200 MG (CORDARONE) TAB PO SCH (08:43)
[2017-10-26] MEDS: PRENATAL VITAMIN 1 EA TAB PO SCH (08:43)
[2017-10-26] MEDS ORDERED: ALBUMIN 25% 25 GM/100 ML 50 ML IV ONE (08:45)
[2017-10-26] MEDS ORDERED: FUROSEMIDE 40 MG/4 ML INJ (LASIX) IVP ONE (08:45)
[2017-10-26 09:00] VITALS: BP 157/86
[2017-10-26] MEDS ORDERED: AMIODARONE 200 MG (CORDARONE) TAB PO SCH (09:00)
--- NOTE | 2017-10-26 09:17 | Progress Note (SOAP) ---
Subjective Subjective/Events-last exam Patient transferred to floor yesterday afternoon. She was able to wean down slightly on her vapotherm. Afebrile with stable vital signs. No acute events overnight. This morning the patient had acute onset of chest pain after a long coughing spell. It was very brief and resolved in just a few minutes. EKG obtained, sinus rhythm. Pt seen very shortly after the event, reports that she thinks chest pain was just due to her significant coughing, which has increased since yesterday. She is very fatigued from coughing and appears to be significantly short of breath, only able to say a few words at a time. Review of Systems Date Seen by Provider: Oct 26, 2017 Time Seen by Provider: 09:25 General: No Chills, No Night Sweats; Fatigue HEENT: No Head Aches, No Dysphasia, No Sore Throat Pulmonary: Dyspnea, Cough Cardiovascular: Chest Pain; No: Palpitations Gastrointestinal: No: Nausea, Vomiting, Abdominal Pain Genitourinary: No Dysuria, No Hematuria Neurological: No: Weakness, Numbness, Incoordination, Confusion, Seizures Focused Exam Lactate Level 10/25/17 01:25: Lactic Acid Level 1.87 Objective Exam Last Set of Vital Signs Vital Signs Date Time Temp Pulse Resp B/P (MAP) Pulse Ox O2 Delivery O2 Flow Rate FiO2 10/26/17 08:30 97.2 89 18 132/84 (100) 94 Vapotherm 40.00 14.00 10/26/17 07:00 40 Capillary Refill : Less Than 3 Seconds I&O Intake and Output 10/26/17 00:00 Intake Total 2345 ml Output Total 350 ml Balance 1995 ml Intake Oral 745 ml IV Total 1600 ml Output Urine Total 350 ml # Voids 5 # Bowel Movements 1 Daily Weight Change No General: Alert, Oriented X3, Cooperative, Mild Distress HEENT: Atraumatic, EOMI, Mucous Memb Moist/[place] Neck: Supple, No Thyromegaly Lungs: Other (diffuse crackles, diminished in bases with coarseness over right side) Heart: Regular Rate, Normal S1, Normal S2 Abdomen: Normal Bowel Sounds, Soft, No Tenderness, No Masses Extremities: No Clubbing, No Cyanosis Skin: No Rashes, No Significant Lesion Neuro: Normal Speech, Normal Tone, Sensation Intact, Cranial Nerves 3-12 NL Psych/Mental Status: Mental Status NL, Mood NL Results/Procedures Lab Laboratory Tests 10/25/17 12:21: White Blood Count 9.3, Red Blood Count 3.29L, Hemoglobin 10.3L, Hematocrit 32L, Mean Corpuscular Volume 97, Mean Corpuscular Hemoglobin 31, Mean Corpuscular Hemoglobin Concent 32, Red Cell Distribution Width 14.9H, Platelet Count 241, Mean Platelet Volume 12.2H, Neutrophils (%) (Auto) 95H, Lymphocytes (%) (Auto) 5L, Monocytes (%) (Auto) 1, Eosinophils (%) (Auto) 0, Basophils (%) (Auto) 0, Neutrophils # (Auto) 8.8H, Lymphocytes # (Auto) 0.5L, Monocytes # (Auto) 0.1, Eosinophils # (Auto) 0.0, Basophils # (Auto) 0.0, Neutrophils % (Manual) 91, Lymphocytes % (Manual) 8, Monocytes % (Manual) 1, Eosinophils % (Manual) 0, Blood Morphology Comment NORMAL, Sodium Level 137, Potassium Level 5.0, Chloride Level 103, Carbon Dioxide Level 24, Anion Gap 10, Blood Urea Nitrogen 22H, Creatinine 2.07H, Estimat Glomerular Filtration Rate 25, BUN/Creatinine Ratio 11, Glucose Level 148H, Calcium Level 9.3, Phosphorus Level 2.8, Magnesium Level 2.0, C-Reactive Protein High Sensitivity 1.51H 10/26/17 04:37: White Blood Count 12.6H, Red Blood Count 3.20L, Hemoglobin 10.0L, Hematocrit 31L , Mean Corpuscular Volume 96, Mean Corpuscular Hemoglobin 31, Mean Corpuscular Hemoglobin Concent 33, Red Cell Distribution Width 14.9H, Platelet Count 236, Mean Platelet Volume 13.4H, Neutrophils (%) (Auto) 93H, Lymphocytes (%) (Auto) 5L, Monocytes (%) (Auto) 2, Eosinophils (%) (Auto) 0, Basophils (%) (Auto) 0, Neutrophils # (Auto) 11.7H, Lymphocytes # (Auto) 0.6L, Monocytes # (Auto) 0.3, Eosinophils # (Auto) 0.0, Basophils # (Auto) 0.0, Sodium Level 139, Potassium Level 4.4, Chloride Level 106, Carbon Dioxide Level 22, Anion Gap 11, Blood Urea Nitrogen 25H, Creatinine 2.09H, Estimat Glomerular Filtration Rate 24, BUN/ Creatinine Ratio 12, Glucose Level 139H, Calcium Level 9.2, Phosphorus Level 2.9 , Magnesium Level 1.9, Total Bilirubin 0.2, Aspartate Amino Transf (AST/SGOT) 17 , Alanine Aminotransferase (ALT/SGPT) 14, Alkaline Phosphatase 87, B-Type Natriuretic Peptide 2763.3H, Total Protein 6.5, Albumin 3.3, Thyroid Stimulating Hormone (TSH) 2.82 Microbiology 10/25/17 Gram Stain - Final, Resulted 10/25/17 Sputum Culture - Preliminary, Resulted No growth Radiology Date of Exam: 10/25/17 CHEST 1 VIEW, AP/PA ONLY INDICATION: Shortness of air. TECHNIQUE: Single view chest 1:40 AM. CORRELATION STUDY: 08/21/2017 FINDINGS: Left-sided ACD remains in place. Heart size enlarged. Vasculature overall appearing improved and relatively normal on followup. Extensive opacification throughout the right lung is present, may reflect asymmetric edema versus infiltrate. Findings most pronounced along the lung base. IMPRESSION: 1. Diffuse opacity throughout the right lung may reflect underlying the asymmetric infiltrate or edema throughout the right lung. Findings most pronounced involving the right lower lobe suspect for more focal area of consolidation. Assessment/Plan Assessment/Plan (1) Sepsis Status: Acute Assessment & Plan: 10/25 secondary to PNA with tachypnea, elevated CRP and WBC, worsening renal function and exacerbation of heart failure Qualifiers: Qualified Codes: A41.9 - Sepsis, unspecified organism (2) Acute on chronic respiratory failure with hypoxia and hypercapnia Status: Acute Assessment & Plan: 10/25 -blood gas in ED on BiPap 65% --> -pH 7.32, pCO2 55, pO2 66 -transitioned to vapotherm this AM, tolerating well 10/26 -doing well on vapotherm and oxygen requirement decreasing slightly -continue to wean as tolerated (3) Right lower lobe pneumonia Status: Acute Assessment & Plan: 10/25 -discharge from SNF 09/23 -Day 1 Vanc and Zosyn for HCAP -WBC 12.4 --> 9.3 -CRP 1.51 -MAT protocol -IV solumedrol 125 mg in ED, now 80 mg IVP q8H 10/26 -Day 2 Vanc and Zosyn for HCAP -WBC 12.4 --> 9.3 --> 12.6 -will stop solumedrol and start PO prednisone 40 mg tomorrow -mucinex BID -tessalon TID prn cough -sputum cx no growth to date -continue MAT protocol Qualifiers: Qualified Codes: J18.1 - Lobar pneumonia, unspecified organism (4) HCAP (healthcare-associated pneumonia) Status: Acute Assessment & Plan: see above RLL PNA for details (5) Acute on chronic systolic CHF (congestive heart failure) Status: Acute Assessment & Plan: 10/25 -pt has ICD -last EF 20% in Jul 2017 per cardiology consultation -BNP on admission 812 -when seen in AM, shortness of breath improving; will hold on diuresis and monitor renal function for now 10/26 -BNP 812 --> 2763 -increased work of breathing, weight up 1.4 kg since admission -saline lock IV -40 mg Lasix IVP this AM (6) Chronic kidney disease, stage 4, severely decreased GFR Status: Chronic (7) Paroxysmal atrial fibrillation Status: Chronic Assessment & Plan: 10/25 -currently in sinus on telemetry -resume home amiodarone 10/26 -EKG shows sinus rhythm (8) HTN (hypertension) Status: Chronic Assessment & Plan: 10/25 -resume home medication - hydralazine 25 mg PO BID Qualifiers: Qualified Codes: I10 - Essential (primary) hypertension (9) COPD (chronic obstructive pulmonary disease) Status: Chronic Qualifiers: Qualified Codes: J44.0 - Chronic obstructive pulmonary disease with acute lower respiratory infection (10) Nonischemic cardiomyopathy Status: Chronic Assessment & Plan: 10/25 -pt has ICD -last EF 20% in Jul 2017 per cardiology consultation (11) Hypothyroidism Status: Chronic Assessment & Plan: 10/25 -not currently on medication -will check TSH in AM 10/26 -TSH 2.82 on no medication Qualifiers: Qualified Codes: E03.9 - Hypothyroidism, unspecified (12) DVT prophylaxis Status: Acute Assessment & Plan: 10/25 Lovenox 30 mg SQ daily, renal dosed (13) Chest pain Status: Resolved Assessment & Plan: 10/26 -occurred briefly this AM after coughing spell, spontaneously resolved -EKG shows sinus rhythm -hx of afib with RVR -will monitor closely Qualifiers: Qualified Codes: R07.89 - Other chest pain Clinical Quality Measures DVT/VTE Risk/Contraindication: Risk Factor Score Per Nursin RFS Level Per Nursing on Admit: 4+=Very High Copy Copies To 1: TEAGAN VERNON MD, MARGARET E DO Oct 26, 2017 09:17
[2017-10-26] MEDS ORDERED: ALBUMIN IV ONE ×2 (09:30)
[2017-10-26] MEDS ORDERED: SERT100T PO (09:39)
[2017-10-26] MEDS: guaiFENesin (MUCINEX) 600 MG TAB PO SCH ×2 (09:58→20:24)
[2017-10-26] MEDS: BENZONATATE 100 MG (TESSALON) CAPSULE PO PRN (09:58)
[2017-10-26 12:00] VITALS: BP 139/92
[2017-10-26] MEDS ORDERED: MULT-878 PO (12:45)
[2017-10-26] MEDS ORDERED: SERT100T8 PO (12:45)
[2017-10-26] MEDS ORDERED: ISOS30TA3 PO (12:45)
[2017-10-26] MEDS ORDERED: FURO20TA4 PO (12:45)
[2017-10-26] MEDS ORDERED: OMEP40CA36 PO (12:45)
[2017-10-26] MEDS ORDERED: MAGN400T39 PO (12:45)
[2017-10-26] MEDS ORDERED: CARV12.53 PO (12:45)
[2017-10-26] MEDS ORDERED: LORA0.5T PO (12:45)
[2017-10-26] MEDS: ENOXAPARIN 30 MG/0.3 ML (LOVENOX) SYR SC SCH (12:52)
[2017-10-26 16:27] VITALS: BP 135/82
[2017-10-26] MEDS ORDERED: RT-ALBUTEROL/IPRATROPIUM 3 ML (DUONEB) VIAL INH PRN (16:45)
[2017-10-26 19:50] VITALS: BP 135/84
[2017-10-26] MEDS: LORazepam 0.5 MG (ATIVAN) TABLET PO SCH (20:24)
[2017-10-26] MEDS: SERTRALINE 50 MG (ZOLOFT) TABLET PO SCH (20:24)
[2017-10-27] VITALS: BP 134/87
[2017-10-27] MEDS: PIPERACILLIN SODIUM/TAZOBACTAM 4.5 GM in NS (IVPB) 100 ML IV SCH ×3 (02:13→18:18)
[2017-10-27] MEDS: RT-ALBUTEROL/IPRATROPIUM 3 ML (DUONEB) VIAL INH SCH ×6 (02:30→22:30)
[2017-10-27 03:00] VITALS: BP 167/89
[2017-10-27] MEDS: BENZONATATE 100 MG (TESSALON) CAPSULE PO PRN ×3 (03:00→19:53)
[2017-10-27] MEDS ORDERED: LORazepam 1 MG (ATIVAN) TAB ONE (03:19)
[2017-10-27] MEDS ORDERED: LORazepam 1 MG (ATIVAN) TAB PO PRN (03:30)
[2017-10-27] MEDS ORDERED: VANCOMYCIN 500 MG/VIAL IV ONE (05:31)
[2017-10-27] MEDS ORDERED: NS (IVPB) 100 ML ONE (05:31)
[2017-10-27 06:06] LABS: BASOPHILS % (AUTO) 0 % (0-10); EOSINOPHILS % (AUTO) 0 % (0-10); HEMATOCRIT 32 % (35-52); HEMOGLOBIN 10.1 G/DL (11.5-16.0); LYMPHOCYTES # (AUTO) 1.1 X 10^3 (1.0-4.0); LYMPHOCYTES % (AUTO) 5 % (12-44); MEAN CORPUSCULAR HEMOGLOBIN 31 PG (25-34); MEAN CORPUSCULAR HGB CONC 32 G/DL (32-36); MEAN CORPUSCULAR VOLUME 98 FL (80-99); MEAN PLATELET VOLUME 13.2 FL (7.4-10.4); MONOCYTES # (AUTO) 1.6 X 10^3 (0.0-1.0); MONOCYTES % (AUTO) 7 % (0-12); NEUTROPHILS # (AUTO) 19.3 X 10^3 (1.8-7.8); NEUTROPHILS % (AUTO) 88 % (42-75); PLATELET COUNT 260 10^3/uL (130-400); RED BLOOD COUNT 3.22 10^6/uL (4.35-5.85); RED CELL DISTRIBUTION WIDTH 15.9 % (10.0-14.5); WHITE BLOOD COUNT 22.1 10^3/uL (4.3-11.0)
[2017-10-27] MEDS: VANCOMYCIN INJECTION 500 MG in NS (IVPB) 100 ML IV SCH (06:19)
[2017-10-27] MEDS: predniSONE 20 MG TAB PO SCH (06:19)
[2017-10-27 06:24] LABS: ANISOCYTOSIS SLIGHT; BAND NEUTROPHILS 0 %; BASOPHILS % (MANUAL) 0 %; EOSINOPHILS % (MANUAL) 0 %; LYMPHOCYTES % (MANUAL) 2 %; MONOCYTES % (MANUAL) 8 %; NEUTROPHILS % (MANUAL) 90 %
[2017-10-27 06:49] LABS: CALCIUM 9.5 MG/DL (8.5-10.1); CREATININE SERUM 2.59 MG/DL (0.60-1.30); MAGNESIUM 1.9 MG/DL (1.8-2.4); PHOSPHORUS 4.1 MG/DL (2.3-4.7); POTASSIUM 3.4 MMOL/L (3.6-5.0)
[2017-10-27 08:30] VITALS: BP 148/87
[2017-10-27] MEDS: PRENATAL VITAMIN 1 EA TAB PO SCH (08:54)
[2017-10-27] MEDS: hydrALAZINE (APRESOLINE) 25 MG TAB PO SCH ×2 (08:54→19:53)
[2017-10-27] MEDS: CARVEDILOL 6.25 MG (COREG) TAB PO SCH ×2 (08:54→19:53)
[2017-10-27] MEDS: guaiFENesin (MUCINEX) 600 MG TAB PO SCH ×2 (08:54→19:53)
[2017-10-27] MEDS: MAGNESIUM OXIDE (MAG-OX)400 MG TAB PO SCH (08:54)
[2017-10-27] MEDS: AMIODARONE 200 MG (CORDARONE) TAB PO SCH (08:54)
--- NOTE | 2017-10-27 09:29 | Progress Note-Hospitalist ---
Subjective HPI/CC On Admission Date Seen by Provider: Oct 27, 2017 Time Seen by Provider: 08:30 Subjective/Events-last exam Patient doing about the same very short of breath and remains on BiPAP Appears to be anxious Reviewed chart and she has very complex comorbidities that will require longer term pulmonary management so I have consulted Evie I have consulted Dr. Thrasher and Dr. Levy to facilitate with this case Reviewed labs imaging and meds She reports loose stools Eating and drinking a little bit Review of Systems General: Other (anxiousness) Cardiovascular: Orthopnea, Other (severe SOB) Gastrointestinal: Diarrhea Focused Exam Lactate Level 10/25/17 01:25: Lactic Acid Level 1.87 Objective Exam Vital Signs Vital Signs Date Time Temp Pulse Resp B/P (MAP) Pulse Ox O2 Delivery O2 Flow Rate FiO2 10/27/17 09:21 113 23 93 30.00 10/27/17 08:39 NIV Bilevel 10/27/17 08:30 97.3 148/87 (107) 10/26/17 16:36 40 Capillary Refill : Less Than 3 SecondsLess Than 3 Seconds General Appearance: WD/WN, Chronically ill, Moderate Distress, Other (on biPAP) HEENT: Other (on biPAP mask) Neck: Non Tender Respiratory: Crackles, Decreased Breath Sounds, Wheezing Cardiovascular: Tachycardia Neurologic/Psychiatric: Alert, Oriented x3, No Motor/Sensory Deficits, 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 Assessment/Plan Assessment and Plan Assess & Plan/Chief Complaint Assessment/Plan (1) Sepsis Status: Acute Assessment & Plan: 10/25 secondary to PNA with tachypnea, elevated CRP and WBC, worsening renal function and exacerbation of heart failure Qualifiers: Qualified Codes: A41.9 - Sepsis, unspecified organism (2) Acute on chronic respiratory failure with hypoxia and hypercapnia Status: Acute Assessment & Plan: 10/25 -blood gas in ED on BiPap 65% --> -pH 7.32, pCO2 55, pO2 66 -transitioned to vapotherm this AM, tolerating well 10/26 -doing well on vapotherm and oxygen requirement decreasing slightly -continue to wean as tolerated 10/27 Requiring biPAP today. Consulting Dr Thrasher and Jenera (3) Right lower lobe pneumonia Status: Acute Assessment & Plan: 10/25 -discharge from SNF 09/23 -Day 1 Vanc and Zosyn for HCAP -WBC 12.4 --> 9.3 -CRP 1.51 -MAT protocol -IV solumedrol 125 mg in ED, now 80 mg IVP q8H 10/26 -Day 2 Vanc and Zosyn for HCAP -WBC 12.4 --> 9.3 --> 12.6 -will stop solumedrol and start PO prednisone 40 mg tomorrow -mucinex BID -tessalon TID prn cough -sputum cx no growth to date -continue MAT protocol 10/27 Day # 3 abx for HCAP Qualifiers: Qualified Codes: J18.1 - Lobar pneumonia, unspecified organism (4) HCAP (healthcare-associated pneumonia) Status: Acute Assessment & Plan: see above RLL PNA for details (5) Acute on chronic systolic CHF (congestive heart failure) Status: Acute Assessment & Plan: 10/25 -pt has ICD -last EF 20% in Jul 2017 per cardiology consultation -BNP on admission 812 -when seen in AM, shortness of breath improving; will hold on diuresis and monitor renal function for now 10/26 -BNP 812 --> 2763 -increased work of breathing, weight up 1.4 kg since admission -saline lock IV -40 mg Lasix IVP this AM 10/[address] Levy (6) Chronic kidney disease, stage 4, severely decreased GFR Status: Chronic (7) Paroxysmal atrial fibrillation Status: Chronic Assessment & Plan: 10/25 -currently in sinus on telemetry -resume home amiodarone 10/26 -EKG shows sinus rhythm (8) HTN (hypertension) Status: Chronic Assessment & Plan: 10/25 -resume home medication - hydralazine 25 mg PO BID Qualifiers: Qualified Codes: I10 - Essential (primary) hypertension (9) COPD (chronic obstructive pulmonary disease) Status: Chronic Qualifiers: Qualified Codes: J44.0 - Chronic obstructive pulmonary disease with acute lower respiratory infection (10) Nonischemic cardiomyopathy Status: Chronic Assessment & Plan: 10/25 -pt has ICD -last EF 20% in Jul 2017 per cardiology consultation (11) Hypothyroidism Status: Chronic Assessment & Plan: 10/25 -not currently on medication -will check TSH in AM 10/26 -TSH 2.82 on no medication Qualifiers: Qualified Codes: E03.9 - Hypothyroidism, unspecified (12) DVT prophylaxis Status: Acute Assessment & Plan: 10/25 Lovenox 30 mg SQ daily, renal dosed (13) Chest pain Status: Resolved Assessment & Plan: 10/26 -occurred briefly this AM after coughing spell, spontaneously resolved -EKG shows sinus rhythm -hx of afib with RVR -will monitor closely Qualifiers: Qualified Codes: R07.89 - Other chest pain Plan: Consult Dr. Thrasher and Dr. Levy [facility] consult Very difficult situation considering the severe medical condition she and is only 57 years old patient appears to be end-stage in multiple processes Clinical Quality Measures DVT/VTE Risk/Contraindication: Risk Factor Score Per Nursin RFS Level Per Nursing on Admit: 4+=Very High SAM GIBBS DO Oct 27, 2017 09:29
[2017-10-27] MEDS: ENOXAPARIN 30 MG/0.3 ML (LOVENOX) SYR SC SCH (10:29)
[2017-10-27] MEDS: LORazepam 1 MG (ATIVAN) TAB PO PRN (10:29)
--- NOTE | 2017-10-27 10:54 | Consultation-Cardiology ---
HPI-Cardiology Cardiology Consultation Date of Consultation 10/27/17 Date of Admission Time Seen by Provider: 10:48 Indication: Shortness of breath HPI 57 years old lady with history of congestive heart failure, atrial fibrillation , COPD, oxygen dependent, admitted with worsening shortness of breath, has been on C Pap in the hospital. Reporting improvement, still having significant dyspnea at this time. Reporting occasional episodes of chest pain described it as dull in nature on the left side of her chest on and off. Occurring mainly while she has been here. Noted to have diarrhea for the past one to 2 days which has been worsening. Leukocytosis has been worsening. Has been receiving antibiotic. No fever or chills. Home Medications & Allergies Allergies: Coded Allergies: propoxyphene napsylate (Unverified Allergy, Severe, SEVERE NAUSEA AND VOMITING , 04/03/13) meperidine (Unverified Allergy, Unknown, 12/19/14) venom-honey bee (Verified Allergy, Unknown, 09/19/13) lisinopril (Verified Adverse Reaction, Unknown, PT STATES "BOTTOMS OUT" HER BLOOD PRESSURE, 03/12/15) Patient states that it "bottoms out" her blood pressure. She will refuse to take this medication and reports it as an allergy. Home Medication List Reviewed: Yes PCX-Nzqily-Oxyply Hx Patient Social History Marital Status: , Living Status: lives independently Employed/Student: unemployed Alcohol Use: Denies Use Recreational Drug Use: No Smoking Status: Former Smoker Former smoker/When Quit: Jan 04, 2013 Type Used: Cigarettes 2nd Hand Smoke Exposure: No Recent Foreign Travel: No Recent Infectious Disease Expo: No Recent Hopitalizations: Yes (discharged from SNF 09/23/17) Physical Abuse Screen: No Sexual Abuse: No Immunizations Up To Date Tetanus Booster (TDap): Unknown Date of Pneumonia Vaccine: Mar 30, 2013 Date of Influenza Vaccine: Jul 11, 2017 Past Medical History discussed below Family Medical History Significant Family History: Heart Disease, Cancer, Hypertension Family History: Cancer 19 FATHER (HODGKINS ) 19 MOTHER (BRAIN TUMOR ) Congenital heart disease 19 MOTHER Congestive heart failure 19 MOTHER Family history: Cardiovascular disease 19 MOTHER G8 SISTER G8 SISTER Family history: Hypertension 19 MOTHER G8 SISTER G8 SISTER Heart disease 19 MOTHER G8 SISTER G8 SISTER History of - respiratory disease 19 MOTHER G8 BROTHER G8 SISTER Constitutional: see HPI, malaise EENTM: see HPI, no symptoms reported Respiratory: see HPI, cough, dyspnea on exertion, orthopnea, short of breath, wheezing Cardiovascular: see HPI, chest pain, edema Gastrointestinal: see HPI, diarrhea Genitourinary: no symptoms reported, see HPI Musculoskeletal: see HPI, muscle weakness Skin: no symptoms reported, see HPI Psychiatric/Neurological: No Symptoms Reported, See HPI Reviewed Test Results Reviewed Test Results Lab Laboratory Tests Test 10/27/17 05:18 Range/Units White Blood Count 22.1 H 4.3-11.0 10^3/uL Red Blood Count 3.22 L 4.35-5.85 10^6/uL Hemoglobin 10.1 L 11.5-16.0 G/DL Hematocrit 32 L 35-52 % Mean Corpuscular Volume 98 80-99 FL Mean Corpuscular Hemoglobin 31 25-34 PG Mean Corpuscular Hemoglobin Concent 32 32-36 G/DL Red Cell Distribution Width 15.9 H 10.0-14.5 % Platelet Count 260 130-400 10^3/uL Mean Platelet Volume 13.2 H 7.4-10.4 FL Neutrophils (%) (Auto) 88 H 42-75 % Lymphocytes (%) (Auto) 5 L 12-44 % Monocytes (%) (Auto) 7 0-12 % Eosinophils (%) (Auto) 0 0-10 % Basophils (%) (Auto) 0 0-10 % Neutrophils # (Auto) 19.3 H 1.8-7.8 X 10^3 Lymphocytes # (Auto) 1.1 1.0-4.0 X 10^3 Monocytes # (Auto) 1.6 H 0.0-1.0 X 10^3 Eosinophils # (Auto) 0.0 0.0-0.3 10^3/uL Basophils # (Auto) 0.0 0.0-0.1 10^3/uL Neutrophils % (Manual) 90 % Lymphocytes % (Manual) 2 % Monocytes % (Manual) 8 % Eosinophils % (Manual) 0 % Basophils % (Manual) 0 % Band Neutrophils 0 % Anisocytosis SLIGHT Sodium Level 142 135-145 MMOL/L Potassium Level 3.4 L 3.6-5.0 MMOL/L Chloride Level 107 98-107 MMOL/L Carbon Dioxide Level 24 21-32 MMOL/L Anion Gap 11 5-14 MMOL/L Blood Urea Nitrogen 30 H 7-18 MG/DL Creatinine 2.59 #H 0.60-1.30 MG/DL Estimat Glomerular Filtration Rate 19 BUN/Creatinine Ratio 12 Glucose Level 110 H 70-105 MG/DL Calcium Level 9.5 8.5-10.1 MG/DL Phosphorus Level 4.1 2.3-4.7 MG/DL Magnesium Level 1.9 1.8-2.4 MG/DL Radiology Date of Exam: 10/25/17 CHEST 1 VIEW, AP/PA ONLY INDICATION: Shortness of air. TECHNIQUE: Single view chest 1:40 AM. CORRELATION STUDY: 08/21/2017 FINDINGS: Left-sided ACD remains in place. Heart size enlarged. Vasculature overall appearing improved and relatively normal on followup. Extensive opacification throughout the right lung is present, may reflect asymmetric edema versus infiltrate. Findings most pronounced along the lung base. IMPRESSION: 1. Diffuse opacity throughout the right lung may reflect underlying the asymmetric infiltrate or edema throughout the right lung. Findings most pronounced involving the right lower lobe suspect for more focal area of consolidation. Physical Exam Vital Signs Vital Signs - First Documented 10/25/17 10/25/17 10/25/17 01:19 01:20 04:25 Temp 95.7 Pulse 94 Resp 16 B/P (MAP) 138/92 (107) Pulse Ox 95 O2 Delivery NIV Bilevel O2 Flow Rate 65.00 FiO2 40 Capillary Refill : Less Than 3 SecondsLess Than 3 Seconds General Appearance: WD/WN, Moderate Distress Eyes: Bilateral Eye Normal Inspection, Bilateral Eye PERRL, Bilateral Eye EOMI HEENT: PERRL/EOMI, TMs Normal, Normal ENT Inspection, Pharynx Normal Neck: Full Range of Motion, Normal Inspection, Non Tender, Supple Respiratory: Chest Non Tender, Crackles, Decreased Breath Sounds, Respiratory Distress Cardiovascular: No Edema, No JVD, No Murmur, Normal Peripheral Pulses, Gallop/ S3, Tachycardia Gastrointestinal: Normal Bowel Sounds, No Organomegaly, No Pulsatile Mass, Non Tender, Soft Back: Normal Inspection, No CVA Tenderness, No Vertebral Tenderness Extremity: Normal Capillary Refill, Normal Inspection, Normal Range of Motion, Non Tender, No Calf Tenderness, No Pedal Edema Neurologic/Psychiatric: Alert, Oriented x3, No Motor/Sensory Deficits, Normal Mood/Affect Skin: Normal Color, Warm/Dry Lymphatic: No Adenopathy A/P-Cardiology Admission Diagnosis Sepsis Pneumonia Acute renal failure Congestive heart failure Assessment/Plan Sepsis, receiving antibiotic, was admitted on October 25 2017, right lower lobe pneumonia, receiving antibiotics. Managed by primary care physician Pneumonia, started on antibiotic, acute on chronic respiratory insufficiency. Currently in respiratory failure on BiPAP, managed by primary care physician, Dr. Thrasher was consulted. Congestive heart failure, acute on chronic left ventricular systolic dysfunction , nonischemic cardiomyopathy, reported ejection fraction 20 percent, I will give additional dose of Lasix and monitor closely. Acute renal failure on top of chronic renal insufficiency. Worsening at this time, monitor renal function closely. Leukocytosis, worse, patient has been having diarrhea for the past 2 days, possible underlying C. difficile colitis, managed by primary care physician and I will send a stool specimen Acute exacerbation of COPD, acute respiratory failure. On BiPAP History of paroxysmal atrial fibrillation, currently in sinus tachycardia, maintained on amiodarone. Continue to monitor [id number] score of 3, yearly risk of stroke without oral anticoagulation is 3.2 percent. Not receiving anticoagulation, following with Dr. Khoury in [place]. History of cardiac catheterization done in 2012 showing mild coronary artery disease. Has been followed by Dr. Khoury History of ICD implant for primary prevention, followed by Dr. Khoury Hypertension, monitor blood pressure Hyperlipidemia, monitor lipids were not Clinical Quality Measures DVT/VTE Risk/Contraindication: Risk Factor Score Per Nursin RFS Level Per Nursing on Admit: 4+=Very High KIRILL ACOSTA MD Oct 27, 2017 10:54
[2017-10-27] MEDS ORDERED: FUROSEMIDE 40 MG/4 ML INJ (LASIX) IVP NR (11:00)
[2017-10-27 12:00] VITALS: BP 175/99
[2017-10-27 15:56] VITALS: BP 143/83
[2017-10-27 19:39] VITALS: BP 157/87
[2017-10-27] MEDS: SERTRALINE 50 MG (ZOLOFT) TABLET PO SCH (19:53)
[2017-10-27] MEDS: LORazepam 0.5 MG (ATIVAN) TABLET PO SCH (19:53)
[2017-10-28 00:51] VITALS: BP 160/85
[2017-10-28] MEDS: PIPERACILLIN SODIUM/TAZOBACTAM 4.5 GM in NS (IVPB) 100 ML IV SCH ×3 (01:30→17:27)
[2017-10-28] MEDS: RT-ALBUTEROL/IPRATROPIUM 3 ML (DUONEB) VIAL INH SCH ×6 (02:43→21:26)
[2017-10-28 04:35] VITALS: BP 140/87
[2017-10-28] MEDS: predniSONE 20 MG TAB PO SCH (06:15)
[2017-10-28 06:16] LABS: HEMOGLOBIN 9.6 G/DL (11.5-16.0); RED BLOOD COUNT 3.01 10^6/uL (4.35-5.85); RED CELL DISTRIBUTION WIDTH 15.3 % (10.0-14.5); WHITE BLOOD COUNT 12.7 10^3/uL (4.3-11.0)
[2017-10-28 06:37] LABS: ALBUMIN 3.2 GM/DL (3.2-4.5); BILIRUBIN,TOTAL 0.7 MG/DL (0.1-1.0); CALCIUM 9.1 MG/DL (8.5-10.1); CREATININE SERUM 2.44 MG/DL (0.60-1.30); MAGNESIUM 1.7 MG/DL (1.8-2.4); PHOSPHORUS 3.3 MG/DL (2.3-4.7); POTASSIUM 3.3 MMOL/L (3.6-5.0)
[2017-10-28 08:00] VITALS: BP 146/80
--- NOTE | 2017-10-28 08:16 | Cardiology Progress Note ---
Subjective Date Seen by Provider: October 28, 2017 Time Seen by Provider: 08:15 Subjective/Events-last exam Patient is laying down in bed, still short of breath. Denied any chest pain. Review of Systems General: No Chills, No Night Sweats, No Fatigue, No Malaise, No Appetite, No Other HEENT: No Head Aches, No Visual Changes, No Eye Pain, No Ear Pain, No Dysphasia , No Sinus Congestion, No Post Nasal Drip, No Sore Throat, No Other Pulmonary: Dyspnea; No Cough, No Pleuritic Chest Pain, No Other Cardiovascular: No: Chest Pain, Palpitations, Orthopnea, Paroxysmal Noc. Dyspnea, Lt Headedness, Other Objective-Cardiology Exam Last Set of Vital Signs Vital Signs 10/27/17 10/28/17 10/28/17 18:58 04:35 06:35 Temp 97.5 Pulse 69 Resp 20 B/P (MAP) 140/87 (104) Pulse Ox 94 O2 Delivery Vapotherm O2 Flow Rate 30.00 FiO2 40 Capillary Refill : Less Than 3 SecondsLess Than 3 Seconds I&O Intake and Output 10/28/17 00:00 Intake Total 2280 ml Output Total 2375 ml Balance -95 ml Intake Oral 1880 ml IV Total 400 ml Output Urine Total 1750 ml Urine/Stool Mix 625 ml # Bowel Movements 4 General: Alert, Oriented X3, Cooperative, Mild Distress HEENT: Atraumatic, EOMI, Mucous Memb Moist/[place] Neck: Supple, No Thyromegaly Lungs: Other (diffuse crackles, diminished in bases with coarseness over right side) Heart: Regular Rate, Normal S1, Normal S2 Abdomen: Normal Bowel Sounds, Soft, No Tenderness, No Masses Extremities: No Clubbing, No Cyanosis Skin: No Rashes, No Significant Lesion Neuro: Normal Speech, Normal Tone, Sensation Intact, Cranial Nerves 3-12 NL Psych/Mental Status: Mental Status NL, Mood NL Results Lab Laboratory Tests 10/28/17 05:15 A/P-Cardiology Admission Diagnosis Sepsis Pneumonia Acute renal failure Congestive heart failure Assessment/Plan Sepsis, receiving antibiotic, was admitted on October 25 2017, right lower lobe pneumonia, receiving antibiotics. Managed by primary care physician Pneumonia, started on antibiotic, acute on chronic respiratory insufficiency. Currently in respiratory failure on BiPAP, managed by primary care physician, Dr. Thrasher was consulted. Congestive heart failure, acute on chronic left ventricular systolic dysfunction , nonischemic cardiomyopathy, reported ejection fraction 20 percent, I'll start her on Lasix 40 mg IV twice a day and monitor her tolerance and response Acute renal failure on top of chronic renal insufficiency, continue to monitor renal function Leukocytosis, some improvement today, still having diarrhea, stool for C. difficile is not done yet Acute exacerbation of COPD, acute respiratory failure. On BiPAP History of paroxysmal atrial fibrillation, currently in sinus tachycardia, maintained on amiodarone. Continue to monitor [id number] score of 3, yearly risk of stroke without oral anticoagulation is 3.2 percent. Not receiving anticoagulation, following with Dr. Khoury in [place]. History of cardiac catheterization done in 2012 showing mild coronary artery disease. Has been followed by Dr. Khoury History of ICD implant for primary prevention, followed by Dr. Khoury Hypertension, monitor blood pressure Hyperlipidemia, monitor lipids were not Clinical Quality Measures DVT/VTE Risk/Contraindication: Risk Factor Score Per Nursin RFS Level Per Nursing on Admit: 4+=Very High KIRILL ACOSTA MD October 28, 2017 08:16
--- NOTE | 2017-10-28 09:32 | Progress Note-Hospitalist ---
Subjective HPI/CC On Admission Date Seen by Provider: October 28, 2017 Time Seen by Provider: 09:00 Subjective/Events-last exam Patient still requiring continuous BiPAP She reports feeling a bit better Reviewed toe be an [facility] notes and awaiting bed to open up for transfer Rales are still loose Creatinine 2.4 and GFR is very low Lasix given by cardiology Spoke to Dr. Thrasher about the consultation Checked meds and labs Review of Systems General: Fatigue, Malaise Pulmonary: Dyspnea Cardiovascular: Orthopnea Objective Exam Vital Signs Vital Signs Date Time Temp Pulse Resp B/P (MAP) Pulse Ox O2 Delivery O2 Flow Rate FiO2 10/28/17 08:00 97.0 82 19 146/80 (102) 93 NIV Bilevel 30.00 10/27/17 18:58 40 Capillary Refill : Less Than 3 SecondsLess Than 3 Seconds General Appearance: WD/WN, Chronically ill, Mild Distress (on biPAP) Neck: Non Tender Respiratory: Crackles, Decreased Breath Sounds, Wheezing Cardiovascular: Regular Rate, Rhythm, No Edema Neurologic/Psychiatric: Alert, Oriented x3, No Motor/Sensory Deficits, Normal 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 Assessment/Plan Assessment and Plan Assess & Plan/Chief Complaint Assessment/Plan (1) Sepsis Status: Acute Assessment & Plan: 10/25 secondary to PNA with tachypnea, elevated CRP and WBC, worsening renal function and exacerbation of heart failure Qualifiers: Qualified Codes: A41.9 - Sepsis, unspecified organism (2) Acute on chronic respiratory failure with hypoxia and hypercapnia Status: Acute Assessment & Plan: 10/25 -blood gas in ED on BiPap 65% --> -pH 7.32, pCO2 55, pO2 66 -transitioned to vapotherm this AM, tolerating well 10/26 -doing well on vapotherm and oxygen requirement decreasing slightly -continue to wean as tolerated 10/27 Requiring biPAP today. Consulting Dr Thrasher and Evie 10/28 Still requiring biPAP continuously hoping to transfer to [facility], poor prognosis (3) Right lower lobe pneumonia Status: Acute Assessment & Plan: 10/25 -discharge from SNF 09/23 -Day 1 Vanc and Zosyn for HCAP -WBC 12.4 --> 9.3 -CRP 1.51 -MAT protocol -IV solumedrol 125 mg in ED, now 80 mg IVP q8H 10/26 -Day 2 Vanc and Zosyn for HCAP -WBC 12.4 --> 9.3 --> 12.6 -will stop solumedrol and start PO prednisone 40 mg tomorrow -mucinex BID -tessalon TID prn cough -sputum cx no growth to date -continue MAT protocol 10/27 Day # 3 abx for HCAP 10/28 Day # 4 abx for HCAP Qualifiers: Qualified Codes: J18.1 - Lobar pneumonia, unspecified organism (4) HCAP (healthcare-associated pneumonia) Status: Acute Assessment & Plan: see above RLL PNA for details (5) Acute on chronic systolic CHF (congestive heart failure) Status: Acute Assessment & Plan: 10/25 -pt has ICD -last EF 20% in Jul 2017 per cardiology consultation -BNP on admission 812 -when seen in AM, shortness of breath improving; will hold on diuresis and monitor renal function for now 10/26 -BNP 812 --> 2763 -increased work of breathing, weight up 1.4 kg since admission -saline lock IV -40 mg Lasix IVP this AM 10/[address] Levy (6) Chronic kidney disease, stage 4, severely decreased GFR Status: Chronic (7) Paroxysmal atrial fibrillation Status: Chronic Assessment & Plan: 10/25 -currently in sinus on telemetry -resume home amiodarone 10/26 -EKG shows sinus rhythm (8) HTN (hypertension) Status: Chronic Assessment & Plan: 10/25 -resume home medication - hydralazine 25 mg PO BID Qualifiers: Qualified Codes: I10 - Essential (primary) hypertension (9) COPD (chronic obstructive pulmonary disease) Status: Chronic Qualifiers: Qualified Codes: J44.0 - Chronic obstructive pulmonary disease with acute lower respiratory infection (10) Nonischemic cardiomyopathy Status: Chronic Assessment & Plan: 10/25 -pt has ICD -last EF 20% in Jul 2017 per cardiology consultation (11) Hypothyroidism Status: Chronic Assessment & Plan: 10/25 -not currently on medication -will check TSH in AM 10/26 -TSH 2.82 on no medication Qualifiers: Qualified Codes: E03.9 - Hypothyroidism, unspecified (12) DVT prophylaxis Status: Acute Assessment & Plan: 10/25 Lovenox 30 mg SQ daily, renal dosed (13) Chest pain Status: Resolved Assessment & Plan: 10/26 -occurred briefly this AM after coughing spell, spontaneously resolved -EKG shows sinus rhythm -hx of afib with RVR -will monitor closely Qualifiers: Qualified Codes: R07.89 - Other chest pain Plan: Consult Dr. Thrasehr and Dr. Levy [facility] consult appreciated and hope to transfer once bed opens up Very difficult situation considering the severe medical condition she and is only 57 years old patient appears to be end-stage in multiple processes Clinical Quality Measures DVT/VTE Risk/Contraindication: Risk Factor Score Per Nursin RFS Level Per Nursing on Admit: 4+=Very High SAM GIBBS DO October 28, 2017 09:32
--- NOTE | 2017-10-28 09:53 | Pulmonary Consultation ---
History of Present Illness History of Present Illness Date of Consultation 10/28/17 09:47 Time Seen by Provider: 07:31 Date of Admission Reason for Visit: Shortness of breath History of Present Illness 57yo presented to ED on 10/25 secondary to worsening SOB and required BiPAP upon admission. Pt's Sp02 was found to be around 65%. Pt had a recent hospitalization at the end of July and was transferred to [place] secondary to Afib RVR and renal failure. Upon discharge she was admitted to [facility]. Pt's SOB has progressive SOB since hospitalization. Allergies and Home Medications Allergies Coded Allergies: propoxyphene napsylate (Unverified Allergy, Severe, SEVERE NAUSEA AND VOMITING , 04/03/13) meperidine (Unverified Allergy, Unknown, 12/19/14) venom-honey bee (Verified Allergy, Unknown, 09/19/13) lisinopril (Verified Adverse Reaction, Unknown, PT STATES "BOTTOMS OUT" HER BLOOD PRESSURE, 03/12/15) Patient states that it "bottoms out" her blood pressure. She will refuse to take this medication and reports it as an allergy. Home Medications Acetaminophen 500 Mg Tablet, 1,000 MG PO Q6H PRN for PAIN-MILD, (Reported) Amiodarone HCl 200 Mg Tablet, 200 MG PO DAILY Prescribed by: ALYSSA BURGOS on 10/25/17 1203 Carvedilol 12.5 Mg Tablet, 6.25 MG PO BID, (Reported) TAKES 1/2 OF A (12.5 MG) TABLET Enoxaparin Sodium 30 Mg/0.3 Ml Syringe, 30 MG SC DAILY@1200 Prescribed by: SAM GIBBS on 10/30/17 1001 Furosemide 10 Mg/1 Ml Vial, 40 MG IVP DAILY@07,17 Prescribed by: SAM GIBBS on 10/30/17 1001 Hydralazine HCl 25 Mg Tablet, 25 MG PO BID, (Reported) Ipratropium/Albuterol Sulfate 3 Ml Ampul.neb, 3 ML IH QID Prescribed by: SAM GIBBS on 10/30/17 1001 Isosorbide Mononitrate 30 Mg Tab.er.24h, 30 MG PO BID, (Reported) Lorazepam 0.5 Mg Tablet, 0.5 MG PO HS, (Reported) Magnesium Oxide 400 Mg Tablet, 400 MG PO DAILY, (Reported) Multivitamins-Min/FA/Ginkgo 1 Each Tablet, 1 TAB PO DAILY, (Reported) Omeprazole 40 Mg Capsule.dr, 40 MG PO DAILY, (Reported) Piperacillin Sodium/Tazobactam 4.5 Gm Vial, 4.5 GM IV Q8H Prescribed by: SAM GIBBS on 10/30/17 1001 Potassium Chloride 20 Meq Tab.er.prt, 20 MEQ PO DAILY@0700 Prescribed by: SAM GIBBS on 10/30/17 1001 Prednisone 20 Mg Tab, 40 MG PO DAILY@0700 Prescribed by: SAM GIBBS on 10/30/17 1001 Sertraline HCl 100 Mg Tablet, 150 MG PO DAILY, (Reported) TAKES 1 & 1/2 OF A (100 MG) TABLET Past Oeskvve-Yhndrc-Zwugwv Hx Past Med/Social Hx: Reviewed Nursing Past Med/Soc Hx Patient Social History Alcohol Use: Denies Use Recreational Drug Use: No Smoking Status: Former Smoker Type Used: Cigarettes Former Smoker, Quit: Jul 09, 2017 2nd Hand Smoke Exposure: No Recent Foreign Travel: No Contact w/Someone Who Travel: No Recent Infectious Disease Expo: No Recent Hopitalizations: Yes (discharged from SNF 09/23/17) Physical Abuse: No Sexual Abuse: No Mistreated: No Fear: No Immunizations Up To Date Tetanus Booster (TDap): Unknown PED Vaccines UTD: No Date of Pneumonia Vaccine: Mar 30, 2013 Date of Influenza Vaccine: Jul 11, 2017 Seasonal Allergies Seasonal Allergies: Yes Past Medical History Surgeries: Yes (heart cath, DEFIBRILLATOR PLACEMENT ) Cardiac, Section, Defibrillator, Hysterectomy Respiratory: Yes Asthma, Pneumonia, COPD Currently Using CPAP: No Currently Using BIPAP: No Cardiac: Yes (CHF EF 20% non ischemic, left atrial thrombus) Atrial Fibrillation, Cardiomyopathy, Hypertension Neurological: Yes Headaches /Migraines 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 Disorders: Yes (Hysterectomy) 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 Sexually Transmitted Disease: No HIV/AIDS: No Genitourinary: Yes Renal Failure Gastrointestinal: Yes (history of elevated transaminases, HX of elevated liver enzymes) Gastroesophageal Reflux, Hiatal Hernia Musculoskeletal: No Arthritis Endocrine: Yes HEENT: Yes Cataract Loss of Vision: Denies Hearing Impairment: Denies Cancer: No Bladder Psychosocial: Yes Sleep Difficulties, Anxiety, Depression Nursing Suicide Risk Score: 0 Integumentary: No Blood Disorders: No Adverse Reaction/Blood Tranf: No Family Medical History Reviewed Nursing Family Hx Cancer 19 FATHER (HODGKINS ) 19 MOTHER (BRAIN TUMOR ) Congenital heart disease 19 MOTHER Congestive heart failure 19 MOTHER Family history: Cardiovascular disease 19 MOTHER G8 SISTER G8 SISTER Family history: Hypertension 19 MOTHER G8 SISTER G8 SISTER Heart disease 19 MOTHER G8 SISTER G8 SISTER History of - respiratory disease 19 MOTHER G8 BROTHER G8 SISTER Heart Disease, Cancer, Hypertension Review of Systems Time Seen by Provider: 07:31 Exam Exam Vital Signs Date Time Temp Pulse Resp B/P (MAP) Pulse Ox O2 Delivery O2 Flow Rate FiO2 10/28/17 08:00 97.0 82 19 146/80 (102) 93 NIV Bilevel 30.00 10/28/17 06:35 94 30.00 10/28/17 04:35 97.5 69 20 140/87 (104) 97 Vapotherm 40.00 12.00 10/28/17 02:43 77 15 94 30.00 10/28/17 01:00 74 10/28/17 00:51 97.6 71 20 160/85 (110) 94 Vapotherm 40.00 12.00 10/27/17 22:30 87 24 93 30.00 10/27/17 21:00 Vapotherm 10/27/17 19:39 98.1 79 16 157/87 (110) 92 Vapotherm 40.00 12.00 10/27/17 19:00 86 10/27/17 18:58 93 Vapotherm 12.00 40 10/27/17 16:51 Vapotherm 12.00 40 10/27/17 15:56 98.4 78 18 143/83 (103) 95 NIV Bilevel 30.00 10/27/17 14:46 85 18 95 30.00 10/27/17 12:00 96.8 106 30 175/99 (124) 93 NIV Bilevel 30.00 10/27/17 11:11 83 17 92 30.00 I & O 10/28/17 07:00 Intake Total 2000 ml Output Total 1750 ml Balance 250 ml General Appearance: WD/WN, Chronically ill, Mild Distress (on biPAP) HEENT: PERRL/EOMI, TMs Normal, Normal ENT Inspection, Pharynx Normal Neck: Non Tender Respiratory: Crackles, Decreased Breath Sounds, Wheezing Cardiovascular: Regular Rate, Rhythm, No Edema Capillary Refill: Less Than 3 Seconds Gastrointestinal: normal bowel sounds, non tender, soft, no organomegaly, no pulsatile mass; No guarding, No rebound Extremity: Normal Capillary Refill, Normal Inspection, Normal Range of Motion, Non Tender, No Calf Tenderness, No Pedal Edema Neurologic/Psychiatric: Alert, Oriented x3, No Motor/Sensory Deficits, Normal 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, 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 255 ROSA ESCOTO DO October 28, 2017 09:53
[2017-10-28] MEDS: AMIODARONE 200 MG (CORDARONE) TAB PO SCH (10:07)
[2017-10-28] MEDS: MAGNESIUM OXIDE (MAG-OX)400 MG TAB PO SCH (10:07)
[2017-10-28] MEDS: hydrALAZINE (APRESOLINE) 25 MG TAB PO SCH ×2 (10:07→21:19)
[2017-10-28] MEDS: FUROSEMIDE 40 MG/4 ML INJ (LASIX) IVP SCH ×2 (10:07→17:27)
[2017-10-28] MEDS: PRENATAL VITAMIN 1 EA TAB PO SCH (10:07)
[2017-10-28] MEDS: guaiFENesin (MUCINEX) 600 MG TAB PO SCH ×2 (10:07→21:19)
[2017-10-28] MEDS: CARVEDILOL 6.25 MG (COREG) TAB PO SCH ×2 (10:07→21:19)
[2017-10-28 12:00] VITALS: BP 144/72
[2017-10-28] MEDS: ENOXAPARIN 30 MG/0.3 ML (LOVENOX) SYR SC SCH (13:30)
[2017-10-28 16:31] VITALS: BP 131/76
[2017-10-28 19:29] VITALS: BP 134/88
[2017-10-28] MEDS: LORazepam 0.5 MG (ATIVAN) TABLET PO SCH (21:19)
[2017-10-28] MEDS: SERTRALINE 50 MG (ZOLOFT) TABLET PO SCH (21:19)
[2017-10-29] VITALS (7 sets, daily range): BP systolic 132–149; BP diastolic 65–85
[2017-10-29] MEDS: ACETAMINOPHEN 500 MG TAB (TYLENOL) PO PRN (00:04)
[2017-10-29] MEDS: PIPERACILLIN SODIUM/TAZOBACTAM 4.5 GM in NS (IVPB) 100 ML IV SCH ×4 (02:19→20:21)
[2017-10-29] MEDS: RT-ALBUTEROL/IPRATROPIUM 3 ML (DUONEB) VIAL INH SCH ×6 (02:22→22:20)
[2017-10-29 05:51] LABS: BASOPHILS % (AUTO) 0 % (0-10); EOSINOPHILS % (AUTO) 0 % (0-10); HEMATOCRIT 29 % (35-52); HEMOGLOBIN 9.6 G/DL (11.5-16.0); LYMPHOCYTES # (AUTO) 2.1 X 10^3 (1.0-4.0); LYMPHOCYTES % (AUTO) 19 % (12-44); MEAN CORPUSCULAR HEMOGLOBIN 32 PG (25-34); MEAN CORPUSCULAR HGB CONC 33 G/DL (32-36); MEAN CORPUSCULAR VOLUME 96 FL (80-99); MEAN PLATELET VOLUME 12.6 FL (7.4-10.4); MONOCYTES # (AUTO) 1.1 X 10^3 (0.0-1.0); MONOCYTES % (AUTO) 10 % (0-12); NEUTROPHILS # (AUTO) 7.8 X 10^3 (1.8-7.8); NEUTROPHILS % (AUTO) 71 % (42-75); PLATELET COUNT 213 10^3/uL (130-400); RED BLOOD COUNT 3.03 10^6/uL (4.35-5.85); RED CELL DISTRIBUTION WIDTH 15.3 % (10.0-14.5); WHITE BLOOD COUNT 11.1 10^3/uL (4.3-11.0)
[2017-10-29 06:21] LABS: CREATININE SERUM 2.4 MG/DL (0.60-1.30); MAGNESIUM 1.7 MG/DL (1.8-2.4); PHOSPHORUS 3.3 MG/DL (2.3-4.7); POTASSIUM 2.9 MMOL/L (3.6-5.0)
[2017-10-29] MEDS: FUROSEMIDE 40 MG/4 ML INJ (LASIX) IVP SCH ×2 (06:32→16:36)
[2017-10-29] MEDS: predniSONE 20 MG TAB PO SCH (06:33)
--- NOTE | 2017-10-29 06:56 | Pulmonary Progress Note ---
Subjective Time Seen by Provider: 07:22 Subjective/Events-last exam No complications Exam Exam Vital Signs Date Time Temp Pulse Resp B/P (MAP) Pulse Ox O2 Delivery O2 Flow Rate FiO2 10/29/17 03:28 68 14 30.00 10/29/17 03:25 97.5 63 16 132/65 (87) 98 NIV Bilevel 30.00 10/29/17 02:23 70 13 98 30.00 10/29/17 01:00 64 10/29/17 00:00 97.7 84 16 142/69 (93) 97 NIV Bilevel 30.00 10/28/17 23:41 63 26 97 30.00 10/28/17 21:27 72 19 96 30.00 10/28/17 21:00 Vapotherm 10/28/17 19:29 97.9 90 18 134/88 (103) 97 Vapotherm 40.00 12.00 10/28/17 19:13 96 Vapotherm 12.00 40 10/28/17 19:00 85 10/28/17 16:31 97.2 90 28 131/76 (94) 93 Vapotherm 40.00 12.00 10/28/17 13:46 73 18 97 30.00 10/28/17 12:00 98.3 84 18 144/72 (96) 93 Vapotherm 40.00 12.00 10/28/17 10:58 96 Vapotherm 12.00 40 10/28/17 09:00 Vapotherm 10/28/17 08:00 97.0 82 19 146/80 (102) 93 NIV Bilevel 30.00 I & O 10/29/17 07:00 Intake Total 2162 ml Output Total 3500 ml Balance -1338 ml General Appearance: WD/WN, Chronically ill, Mild Distress (on biPAP) HEENT: PERRL/EOMI, TMs Normal, Normal ENT Inspection, Pharynx Normal Neck: Non Tender Respiratory: Crackles, Decreased Breath Sounds, Wheezing Cardiovascular: Regular Rate, Rhythm, No Edema Capillary Refill: Less Than 3 Seconds Gastrointestinal: normal bowel sounds, non tender, soft, no organomegaly, no pulsatile mass; No guarding, No rebound Extremity: Normal Capillary Refill, Normal Inspection, Normal Range of Motion, Non Tender, No Calf Tenderness, No Pedal Edema Neurologic/Psychiatric: Alert, Oriented x3, No Motor/Sensory Deficits, Normal 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/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, 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 Norm as Tested Skin: Normal Color, Warm/Dry Lymphatic: No Adenopathy Results Lab Laboratory Tests 10/28/17 05:15 10/29/17 05:23 Assessment/Plan Assessment/Plan Sepsis secondary to pneumonia - zosyn -Saez cultures neg thus far Acute on chronic respiratory failure with hypoxia -Noninvasive ventilation QHS and PRN -Currently she is requiring vapotherm high flow oxygen -Pt will benefit from home vent to mask PC02 is 55 Acute on chronic CHF -ICD -EF 20% -Lasix continue -BNP is over 3000 Hypomag, hypokalemia -replace CKD stage 4 Paroxysmal Afib PT maybe transferring to [facility] for rehab. 232 ROSA ESCOTO DO October 29, 2017 06:56
[2017-10-29] MEDS ORDERED: POTASSIUM CL 10MEQ/50ML IVPB 50 ML IV SCH (07:00)
[2017-10-29] MEDS ORDERED: KCL 20 MEQ TAB (K-DUR) PO NR (07:28)
[2017-10-29] MEDS: MAGNESIUM 1 GM/100 ML IVPB 100 ML IV SCH (09:09)
[2017-10-29] MEDS: POTASSIUM CL 10 MEQ/50 ML IVPB (PRE-MIX) IV SCH ×4 (09:09→13:17)
[2017-10-29] MEDS: CARVEDILOL 6.25 MG (COREG) TAB PO SCH ×2 (09:09→20:21)
[2017-10-29] MEDS: MAGNESIUM OXIDE (MAG-OX)400 MG TAB PO SCH (09:10)
[2017-10-29] MEDS: PRENATAL VITAMIN 1 EA TAB PO SCH (09:10)
[2017-10-29] MEDS: hydrALAZINE (APRESOLINE) 25 MG TAB PO SCH ×2 (09:10→20:20)
[2017-10-29] MEDS: guaiFENesin (MUCINEX) 600 MG TAB PO SCH ×2 (09:10→20:21)
[2017-10-29] MEDS: AMIODARONE 200 MG (CORDARONE) TAB PO SCH (09:10)
[2017-10-29] MEDS ORDERED: NS IV 500 ML 500 ML IV SCH (09:15)
--- NOTE | 2017-10-29 10:48 | Cardiology Progress Note ---
Subjective Date Seen by Provider: October 29, 2017 Time Seen by Provider: 10:46 Subjective/Events-last exam Patient is sitting up in bed, reports dyspnea continues to improve. Denies any CP or palpitation. Review of Systems General: No Night Sweats, No Fatigue, No Malaise HEENT: No Visual Changes, No Dysphasia Pulmonary: Dyspnea, Cough Cardiovascular: No: Palpitations, Paroxysmal Noc. Dyspnea, Edema Gastrointestinal: No: Nausea, Vomiting, Abdominal Pain Genitourinary: No Dysuria, No Frequency Musculoskeletal: No: neck pain, back pain Neurological: No: Weakness, Numbness, Change in speech, Confusion Objective-Cardiology Exam Last Set of Vital Signs Vital Signs 10/29/17 10/29/17 10/29/17 07:52 08:32 09:00 Temp 97.1 Pulse 71 Resp 21 B/P (MAP) 149/79 (102) Pulse Ox 97 O2 Delivery Vapotherm O2 Flow Rate 12.00 FiO2 40 Capillary Refill : Less Than 3 SecondsLess Than 3 Seconds I&O Intake and Output 10/29/17 00:00 Intake Total 1982 ml Output Total 2550 ml Balance -568 ml Intake Oral 1682 ml IV Total 300 ml Output Urine Total 2550 ml # Voids 1 # Bowel Movements 11 General: Alert, Oriented X3, Cooperative, Mild Distress HEENT: Atraumatic, EOMI, Mucous Memb Moist/Isabela Neck: Supple, No Thyromegaly Lungs: Other ( diminished in bases with coarseness over right side) Heart: Regular Rate, Normal S1, Normal S2 Abdomen: Normal Bowel Sounds, Soft, No Tenderness, No Masses Extremities: No Clubbing, No Cyanosis Skin: No Rashes, No Significant Lesion Neuro: Normal Speech, Normal Tone, Sensation Intact, Cranial Nerves 3-12 NL Psych/Mental Status: Mental Status NL, Mood NL Results Lab Laboratory Tests 10/29/17 05:23 A/P-Cardiology Admission Diagnosis Sepsis Pneumonia Acute renal failure Congestive heart failure Assessment/Plan Sepsis, receiving antibiotic, was admitted on October 25 2017, right lower lobe pneumonia, receiving antibiotics. Managed by primary care physician Pneumonia, started on antibiotic, acute on chronic respiratory insufficiency. Currently in respiratory failure on BiPAP, managed by primary care physician, Dr. Thrasher was consulted. Congestive heart failure, acute on chronic left ventricular systolic dysfunction , nonischemic cardiomyopathy, reported ejection fraction 20 percent, continue to diurese and continue to monitor. Acute renal failure on top of chronic renal insufficiency, continue to monitor renal function Leukocytosis, some improvement today, C-diff negative. Acute exacerbation of COPD, acute respiratory failure. On BiPAP History of paroxysmal atrial fibrillation, currently in sinus tachycardia, maintained on amiodarone. Continue to monitor [id number] score of 3, yearly risk of stroke without oral anticoagulation is 3.2 percent. Not receiving anticoagulation, following with Dr. Khoury in [place]. History of cardiac catheterization done in 2012 showing mild coronary artery disease. Has been followed by Dr. Khoury History of ICD implant for primary prevention, followed by Dr. Khoury Hypertension, monitor blood pressure Hyperlipidemia, monitor lipids as outpatient Clinical Quality Measures DVT/VTE Risk/Contraindication: Risk Factor Score Per Nursin RFS Level Per Nursing on Admit: 4+=Very High THAIS GOMEZ October 29, 2017 10:48
--- NOTE | 2017-10-29 11:58 | Progress Note-Hospitalist ---
Subjective HPI/CC On Admission Date Seen by Provider: October 29, 2017 Time Seen by Provider: 10:00 Subjective/Events-last exam Patient is doing much better and now on Vapotherm I appreciate Dr. Thrasher consultation Still will need [place] [facility] for pulmonary purposes since she had been admitted to via [facility] then shipped to [place] due to the severity of her COPD then at a [facility] so she is high risk for readmissions and significant decompensation at the bedside and brought in the filters of her C Pap machine and found a lot of cat hair and dust that it never been clean so we will address that at discharge before home Overall she is doing much better loose stools continue but less so I will repeat chest x-ray in the labs appear to be stable with creatinine of 2.4 Checked meds and labs and consultation notes Review of Systems General: Malaise Pulmonary: Dyspnea Objective Exam Vital Signs Vital Signs Date Time Temp Pulse Resp B/P (MAP) Pulse Ox O2 Delivery O2 Flow Rate FiO2 10/29/17 11:31 97 Vapotherm 12.00 40 10/29/17 07:52 97.1 71 21 149/79 (102) Capillary Refill : Less Than 3 SecondsLess Than 3 Seconds General Appearance: No Apparent Distress, WD/WN, Chronically ill, Other (much improved) HEENT: Normal ENT Inspection Neck: Normal Inspection Respiratory: Decreased Breath Sounds, Wheezing, Other (improved air expansion) Cardiovascular: Regular Rate, Rhythm, No Edema Neurologic/Psychiatric: Alert, Oriented x3, No Motor/Sensory Deficits, Normal 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 Assessment/Plan Assessment and Plan Assess & Plan/Chief Complaint Assessment/Plan (1) Sepsis Status: Acute Assessment & Plan: 10/25 secondary to PNA with tachypnea, elevated CRP and WBC, worsening renal function and exacerbation of heart failure Qualifiers: Qualified Codes: A41.9 - Sepsis, unspecified organism (2) Acute on chronic respiratory failure with hypoxia and hypercapnia Status: Acute Assessment & Plan: 10/25 -blood gas in ED on BiPap 65% --> -pH 7.32, pCO2 55, pO2 66 -transitioned to vapotherm this AM, tolerating well 10/26 -doing well on vapotherm and oxygen requirement decreasing slightly -continue to wean as tolerated 10/27 Requiring biPAP today. Consulting Dr Thrasher and Evie 10/28 Still requiring biPAP continuously hoping to transfer to [place], poor prognosis 10/29 Much improved no on Vapotherm but biPAP at night but still needs [place] hopefully today (3) Right lower lobe pneumonia Status: Acute Assessment & Plan: 10/25 -discharge from SNF 09/23 -Day 1 Vanc and Zosyn for HCAP -WBC 12.4 --> 9.3 -CRP 1.51 -MAT protocol -IV solumedrol 125 mg in ED, now 80 mg IVP q8H 10/26 -Day 2 Vanc and Zosyn for HCAP -WBC 12.4 --> 9.3 --> 12.6 -will stop solumedrol and start PO prednisone 40 mg tomorrow -mucinex BID -tessalon TID prn cough -sputum cx no growth to date -continue MAT protocol 10/27 Day # 3 abx for HCAP 10/28 Day # 4 abx for HCAP 10/29 Day # 5 abx for HCAP Qualifiers: Qualified Codes: J18.1 - Lobar pneumonia, unspecified organism (4) HCAP (healthcare-associated pneumonia) Status: Acute Assessment & Plan: see above RLL PNA for details (5) Acute on chronic systolic CHF (congestive heart failure) Status: Acute Assessment & Plan: 10/25 -pt has ICD -last EF 20% in Jul 2017 per cardiology consultation -BNP on admission 812 -when seen in AM, shortness of breath improving; will hold on diuresis and monitor renal function for now 10/26 -BNP 812 --> 2763 -increased work of breathing, weight up 1.4 kg since admission -saline lock IV -40 mg Lasix IVP this AM 10/[address] Levy (6) Chronic kidney disease, stage 4, severely decreased GFR Status: Chronic (7) Paroxysmal atrial fibrillation Status: Chronic Assessment & Plan: 10/25 -currently in sinus on telemetry -resume home amiodarone 10/26 -EKG shows sinus rhythm (8) HTN (hypertension) Status: Chronic Assessment & Plan: 10/25 -resume home medication - hydralazine 25 mg PO BID Qualifiers: Qualified Codes: I10 - Essential (primary) hypertension (9) COPD (chronic obstructive pulmonary disease) Status: Chronic Qualifiers: Qualified Codes: J44.0 - Chronic obstructive pulmonary disease with acute lower respiratory infection (10) Nonischemic cardiomyopathy Status: Chronic Assessment & Plan: 10/25 -pt has ICD -last EF 20% in Jul 2017 per cardiology consultation (11) Hypothyroidism Status: Chronic Assessment & Plan: 10/25 -not currently on medication -will check TSH in AM 10/26 -TSH 2.82 on no medication Qualifiers: Qualified Codes: E03.9 - Hypothyroidism, unspecified (12) DVT prophylaxis Status: Acute Assessment & Plan: 10/25 Lovenox 30 mg SQ daily, renal dosed (13) Chest pain Status: Resolved Assessment & Plan: 10/26 -occurred briefly this AM after coughing spell, spontaneously resolved -EKG shows sinus rhythm -hx of afib with RVR -will monitor closely Qualifiers: Qualified Codes: R07.89 - Other chest pain Plan: Consults from Dr. Thrasher and Dr. Levy are appreciated [place] consult appreciated and hope to transfer once bed opens up Very difficult situation considering the severe medical condition she and is only 57 years old patient appears to be end-stage in multiple processes but appears much improved but needs [place] to decrease readmit risks Clinical Quality Measures DVT/VTE Risk/Contraindication: Risk Factor Score Per Nursin RFS Level Per Nursing on Admit: 4+=Very High SAM GIBBS DO October 29, 2017 11:58
--- NOTE | 2017-10-29 12:11 | Diagnostic Imaging Report ---
INDICATION: Dyspnea and pneumonia. Time of exam 12:01 PM Correlation is made with prior exam from 10/25/2017. Cardiac defibrillator remains in place. A right-sided infiltrate has largely cleared. No new infiltrate is seen. The heart remains enlarged. There is no effusion or pneumothorax. IMPRESSION: Near complete clearing of right-sided pneumonia when compared to examination from 5 days earlier. Dictated by: Dictated on workstation # [id number]
[2017-10-29] MEDS: ENOXAPARIN 30 MG/0.3 ML (LOVENOX) SYR SC SCH (12:38)
[2017-10-29] MEDS: POTASSIUM CL 10MEQ/50ML IVPB 50 ML IV SCH ×3 (13:43→13:45)
--- NOTE | 2017-10-29 15:18 | Cardiology Progress Note ---
Subjective Date Seen by Provider: October 29, 2017 Time Seen by Provider: 15:16 Subjective/Events-last exam Patient is laying down in bed, feeling better. Denied any chest pain, breathing is better. No palpitation. Review of Systems General: No Chills, No Night Sweats, No Fatigue, No Malaise, No Appetite, No Other HEENT: No Head Aches, No Visual Changes, No Eye Pain, No Ear Pain, No Dysphasia , No Sinus Congestion, No Post Nasal Drip, No Sore Throat, No Other Pulmonary: Dyspnea, Cough; No Pleuritic Chest Pain, No Other Cardiovascular: No: Chest Pain, Palpitations, Orthopnea, Paroxysmal Noc. Dyspnea, Edema, Lt Headedness, Other Objective-Cardiology Exam Last Set of Vital Signs Vital Signs 10/29/17 10/29/17 11:31 12:00 Temp 98.7 Pulse 75 Resp 22 B/P (MAP) 146/85 (105) Pulse Ox 95 O2 Delivery Vapotherm O2 Flow Rate 40.00 8.00 FiO2 40 Capillary Refill : Less Than 3 SecondsLess Than 3 Seconds I&O Intake and Output 10/29/17 00:00 Intake Total 1982 ml Output Total 2550 ml Balance -568 ml Intake Oral 1682 ml IV Total 300 ml Output Urine Total 2550 ml # Voids 1 # Bowel Movements 11 General: Alert, Oriented X3, Cooperative, Mild Distress HEENT: Atraumatic, EOMI, Mucous Memb Moist/Lamkin Neck: Supple, No Thyromegaly Lungs: Other ( diminished in bases with coarseness over right side) Heart: Regular Rate, Normal S1, Normal S2 Abdomen: Normal Bowel Sounds, Soft, No Tenderness, No Masses Extremities: No Clubbing, No Cyanosis Skin: No Rashes, No Significant Lesion Neuro: Normal Speech, Normal Tone, Sensation Intact, Cranial Nerves 3-12 NL Psych/Mental Status: Mental Status NL, Mood NL Results Lab Laboratory Tests 10/29/17 05:23 A/P-Cardiology Admission Diagnosis Sepsis Pneumonia Acute renal failure Congestive heart failure Assessment/Plan Sepsis, receiving antibiotic, was admitted on October 25 2017, right lower lobe pneumonia, receiving antibiotics. Improving, Managed by primary care physician Hypokalemia, hypomagnesemia, being replaced. Continue to monitor electrolytes closely Pneumonia, started on antibiotic, acute on chronic respiratory insufficiency. Currently in respiratory failure on BiPAP, managed by primary care physician, Dr. Thrasher was consulted. Congestive heart failure, acute on chronic left ventricular systolic dysfunction , nonischemic cardiomyopathy, reported ejection fraction 20 percent, continue to diurese and continue to monitor. Acute renal failure on top of chronic renal insufficiency, continue to monitor renal function Leukocytosis, some improvement today, C-diff negative. Acute exacerbation of COPD, acute respiratory failure. On BiPAP History of paroxysmal atrial fibrillation, currently in sinus tachycardia, maintained on amiodarone. Continue to monitor [id number] score of 3, yearly risk of stroke without oral anticoagulation is 3.2 percent. Not receiving anticoagulation, following with Dr. Khoury in [place]. History of cardiac catheterization done in 2012 showing mild coronary artery disease. Has been followed by Dr. Khoury History of ICD implant for primary prevention, followed by Dr. Khoury Hypertension, monitor blood pressure Hyperlipidemia, monitor lipids as outpatient Clinical Quality Measures DVT/VTE Risk/Contraindication: Risk Factor Score Per Nursin RFS Level Per Nursing on Admit: 4+=Very High KIRILL ACOSTA MD October 29, 2017 15:18
[2017-10-29] MEDS: LORazepam 0.5 MG (ATIVAN) TABLET PO SCH (20:21)
[2017-10-29] MEDS: SERTRALINE 50 MG (ZOLOFT) TABLET PO SCH (20:21)
[2017-10-30] VITALS: BP 143/72
[2017-10-30] MEDS: ACETAMINOPHEN 500 MG TAB (TYLENOL) PO PRN (00:59)
[2017-10-30] MEDS: RT-ALBUTEROL/IPRATROPIUM 3 ML (DUONEB) VIAL INH SCH ×4 (02:08→13:52)
[2017-10-30] MEDS: PIPERACILLIN SODIUM/TAZOBACTAM 4.5 GM in NS (IVPB) 100 ML IV SCH ×2 (03:14→10:44)
[2017-10-30] MEDS: LORazepam 1 MG (ATIVAN) TAB PO PRN (03:17)
[2017-10-30 04:00] VITALS: BP 138/70
[2017-10-30 04:48] LABS: BASOPHILS % (AUTO) 0 % (0-10); EOSINOPHILS # (AUTO) 0.1 10^3/uL (0.0-0.3); EOSINOPHILS % (AUTO) 1 % (0-10); HEMATOCRIT 30 % (35-52); HEMOGLOBIN 9.8 G/DL (11.5-16.0); LYMPHOCYTES # (AUTO) 1.9 X 10^3 (1.0-4.0); LYMPHOCYTES % (AUTO) 17 % (12-44); MEAN CORPUSCULAR HEMOGLOBIN 31 PG (25-34); MEAN CORPUSCULAR HGB CONC 32 G/DL (32-36); MEAN CORPUSCULAR VOLUME 96 FL (80-99); MEAN PLATELET VOLUME 12.7 FL (7.4-10.4); MONOCYTES # (AUTO) 1.1 X 10^3 (0.0-1.0); MONOCYTES % (AUTO) 10 % (0-12); NEUTROPHILS # (AUTO) 8.1 X 10^3 (1.8-7.8); NEUTROPHILS % (AUTO) 73 % (42-75); PLATELET COUNT 221 10^3/uL (130-400); RED BLOOD COUNT 3.16 10^6/uL (4.35-5.85); RED CELL DISTRIBUTION WIDTH 15.2 % (10.0-14.5); WHITE BLOOD COUNT 11.1 10^3/uL (4.3-11.0)
[2017-10-30 05:15] LABS: CALCIUM 8.9 MG/DL (8.5-10.1); CREATININE SERUM 2.32 MG/DL (0.60-1.30); MAGNESIUM 2.3 MG/DL (1.8-2.4); PHOSPHORUS 3.3 MG/DL (2.3-4.7); POTASSIUM 3.5 MMOL/L (3.6-5.0)
[2017-10-30] MEDS: FUROSEMIDE 40 MG/4 ML INJ (LASIX) IVP SCH (06:31)
[2017-10-30] MEDS: predniSONE 20 MG TAB PO SCH (06:31)
[2017-10-30] MEDS ORDERED: KCL 20 MEQ TAB (K-DUR) PO SCH (07:00)
--- NOTE | 2017-10-30 07:06 | Cardiology Progress Note ---
Subjective Date Seen by Provider: October 30, 2017 Time Seen by Provider: 07:04 Subjective/Events-last exam Patient is in bed, feeling better, improving slowly, denied any chest pain Review of Systems General: No Chills, No Night Sweats, No Fatigue, No Malaise, No Appetite, No Other HEENT: No Head Aches, No Visual Changes, No Eye Pain, No Ear Pain, No Dysphasia , No Sinus Congestion, No Post Nasal Drip, No Sore Throat, No Other Pulmonary: Dyspnea; No Cough, No Pleuritic Chest Pain, No Other Cardiovascular: No: Chest Pain, Palpitations, Orthopnea, Paroxysmal Noc. Dyspnea, Edema, Lt Headedness, Other Objective-Cardiology Exam Last Set of Vital Signs Vital Signs 10/29/17 10/30/17 10/30/17 18:27 04:00 06:22 Temp 98.0 Pulse 67 Resp 14 B/P (MAP) 138/70 (92) Pulse Ox 98 O2 Delivery NIV Bilevel O2 Flow Rate 30.00 FiO2 40 Capillary Refill : Less Than 3 SecondsLess Than 3 Seconds I&O Intake and Output 10/30/17 00:00 Intake Total 2515 ml Output Total 3150 ml Balance -635 ml Intake Oral 2015 ml IV Total 500 ml Output Urine Total 3150 ml # Voids 1 # Bowel Movements 3 General: Alert, Oriented X3, Cooperative, Mild Distress HEENT: Atraumatic, EOMI, Mucous Memb Moist/[place] Neck: Supple, No Thyromegaly Lungs: Other (Gray rhonchi) Heart: Regular Rate, Normal S1, Normal S2 Abdomen: Normal Bowel Sounds, Soft, No Tenderness, No Masses Extremities: No Clubbing, No Cyanosis Skin: No Rashes, No Significant Lesion Neuro: Normal Speech, Normal Tone, Sensation Intact, Cranial Nerves 3-12 NL Psych/Mental Status: Mental Status NL, Mood NL Results Lab Laboratory Tests 10/30/17 04:30 A/P-Cardiology Admission Diagnosis Sepsis Pneumonia Acute renal failure Congestive heart failure Assessment/Plan Sepsis, receiving antibiotic, was admitted on October 25, 2017, right lower lobe pneumonia, receiving antibiotics. Improving, Managed by primary care physician Hypokalemia, hypomagnesemia, replaced. Continue to monitor electrolytes closely Pneumonia, started on antibiotic, acute on chronic respiratory insufficiency. Currently in respiratory failure on BiPAP, managed by primary care physician, Dr. Thrasher was consulted. Congestive heart failure, acute on chronic left ventricular systolic dysfunction , nonischemic cardiomyopathy, reported ejection fraction 20 percent, continue to diurese and continue to monitor. I will reevaluate BNP in am Acute renal failure on top of chronic renal insufficiency, continue to monitor renal function Acute exacerbation of COPD, acute respiratory failure. On BiPAP History of paroxysmal atrial fibrillation, currently in sinus tachycardia, maintained on amiodarone. Continue to monitor [id number] score of 3, yearly risk of stroke without oral anticoagulation is 3.2 percent. Not receiving anticoagulation, following with Dr. Khoury in [place]. History of cardiac catheterization done in 2012 showing mild coronary artery disease. Has been followed by Dr. Khoury History of ICD implant for primary prevention, followed by Dr. Khoury Hypertension, monitor blood pressure Hyperlipidemia, monitor lipids as outpatient Clinical Quality Measures DVT/VTE Risk/Contraindication: Risk Factor Score Per Nursin RFS Level Per Nursing on Admit: 4+=Very High KIRILL ACOSTA MD October 30, 2017 07:06
[2017-10-30 07:39] VITALS: BP 128/67
[2017-10-30] MEDS: guaiFENesin (MUCINEX) 600 MG TAB PO SCH (08:39)
[2017-10-30] MEDS: PRENATAL VITAMIN 1 EA TAB PO SCH (08:39)
[2017-10-30] MEDS: CARVEDILOL 6.25 MG (COREG) TAB PO SCH (08:39)
[2017-10-30] MEDS: hydrALAZINE (APRESOLINE) 25 MG TAB PO SCH (08:39)
[2017-10-30] MEDS: AMIODARONE 200 MG (CORDARONE) TAB PO SCH (08:39)
[2017-10-30] MEDS: MAGNESIUM OXIDE (MAG-OX)400 MG TAB PO SCH (08:40)
--- NOTE | 2017-10-30 09:32 | Progress Note-Hospitalist ---
Subjective HPI/CC On Admission Date Seen by Provider: October 30, 2017 Time Seen by Provider: 09:00 Objective Exam Vital Signs Vital Signs Date Time Temp Pulse Resp B/P (MAP) Pulse Ox O2 Delivery O2 Flow Rate FiO2 10/30/17 09:00 98 NIV Bilevel 30.00 10/30/17 07:39 97.2 67 21 128/67 (87) 10/29/17 18:27 40 Capillary Refill : Less Than 3 SecondsLess Than 3 Seconds Results/Procedures Lab Laboratory Tests 10/30/17 04:30 Patient resulted labs reviewed. Assessment/Plan Assessment and Plan Assess & Plan/Chief Complaint Assessment/Plan (1) Sepsis Status: Acute Assessment & Plan: 10/25 secondary to PNA with tachypnea, elevated CRP and WBC, worsening renal function and exacerbation of heart failure Qualifiers: Qualified Codes: A41.9 - Sepsis, unspecified organism (2) Acute on chronic respiratory failure with hypoxia and hypercapnia Status: Acute Assessment & Plan: 10/25 -blood gas in ED on BiPap 65% --> -pH 7.32, pCO2 55, pO2 66 -transitioned to vapotherm this AM, tolerating well 10/26 -doing well on vapotherm and oxygen requirement decreasing slightly -continue to wean as tolerated 10/27 Requiring biPAP today. Consulting Dr Thrasher and Evie 10/28 Still requiring biPAP continuously hoping to transfer to [facility], poor prognosis 10/29 Much improved no on Vapotherm but biPAP at night but still needs [facility] hopefully today (3) Right lower lobe pneumonia Status: Acute Assessment & Plan: 10/25 -discharge from SNF 09/23 -Day 1 Vanc and Zosyn for HCAP -WBC 12.4 --> 9.3 -CRP 1.51 -MAT protocol -IV solumedrol 125 mg in ED, now 80 mg IVP q8H 10/26 -Day 2 Vanc and Zosyn for HCAP -WBC 12.4 --> 9.3 --> 12.6 -will stop solumedrol and start PO prednisone 40 mg tomorrow -mucinex BID -tessalon TID prn cough -sputum cx no growth to date -continue MAT protocol 10/27 Day # 3 abx for HCAP 10/28 Day # 4 abx for HCAP 10/29 Day # 5 abx for HCAP Qualifiers: Qualified Codes: J18.1 - Lobar pneumonia, unspecified organism (4) HCAP (healthcare-associated pneumonia) Status: Acute Assessment & Plan: see above RLL PNA for details (5) Acute on chronic systolic CHF (congestive heart failure) Status: Acute Assessment & Plan: 10/25 -pt has ICD -last EF 20% in Jul 2017 per cardiology consultation -BNP on admission 812 -when seen in AM, shortness of breath improving; will hold on diuresis and monitor renal function for now 10/26 -BNP 812 --> 2763 -increased work of breathing, weight up 1.4 kg since admission -saline lock IV -40 mg Lasix IVP this AM 10/[address] Levy (6) Chronic kidney disease, stage 4, severely decreased GFR Status: Chronic (7) Paroxysmal atrial fibrillation Status: Chronic Assessment & Plan: 10/25 -currently in sinus on telemetry -resume home amiodarone 10/26 -EKG shows sinus rhythm (8) HTN (hypertension) Status: Chronic Assessment & Plan: 10/25 -resume home medication - hydralazine 25 mg PO BID Qualifiers: Qualified Codes: I10 - Essential (primary) hypertension (9) COPD (chronic obstructive pulmonary disease) Status: Chronic Qualifiers: Qualified Codes: J44.0 - Chronic obstructive pulmonary disease with acute lower respiratory infection (10) Nonischemic cardiomyopathy Status: Chronic Assessment & Plan: 10/25 -pt has ICD -last EF 20% in Jul 2017 per cardiology consultation (11) Hypothyroidism Status: Chronic Assessment & Plan: 10/25 -not currently on medication -will check TSH in AM 10/26 -TSH 2.82 on no medication Qualifiers: Qualified Codes: E03.9 - Hypothyroidism, unspecified (12) DVT prophylaxis Status: Acute Assessment & Plan: 10/25 Lovenox 30 mg SQ daily, renal dosed (13) Chest pain Status: Resolved Assessment & Plan: 10/26 -occurred briefly this AM after coughing spell, spontaneously resolved -EKG shows sinus rhythm -hx of afib with RVR -will monitor closely Qualifiers: Qualified Codes: R07.89 - Other chest pain Plan: Consults from Dr. Thrasher and Dr. Levy are appreciated [facility] consult appreciated and hope to transfer once bed opens up Very difficult situation considering the severe medical condition she and is only 57 years old patient appears to be end-stage in multiple processes but appears much improved but needs [facility] to decrease readmit risks Clinical Quality Measures DVT/VTE Risk/Contraindication: Risk Factor Score Per Nursin RFS Level Per Nursing on Admit: 4+=Very High SAM GIBBS DO October 30, 2017 09:32
--- NOTE | 2017-10-30 09:40 | Discharge Summary-Hospitalist ---
Diagnosis/Chief Complaint Date of Admission Oct 25, 2017 at 02:36 Date of Discharge Discharge Diagnosis Assessment/Plan (1) Sepsis Status: Acute Assessment & Plan: 10/25 secondary to PNA with tachypnea, elevated CRP and WBC, worsening renal function and exacerbation of heart failure Qualifiers: Qualified Codes: A41.9 - Sepsis, unspecified organism (2) Acute on chronic respiratory failure with hypoxia and hypercapnia Status: Acute Assessment & Plan: 10/25 -blood gas in ED on BiPap 65% --> -pH 7.32, pCO2 55, pO2 66 -transitioned to vapotherm this AM, tolerating well 10/26 -doing well on vapotherm and oxygen requirement decreasing slightly -continue to wean as tolerated 10/27 Requiring biPAP today. Consulting Dr Thrasher and Evie 10/28 Still requiring biPAP continuously [facility], poor prognosis 10/29 Much improved no on Vapotherm but biPAP at night but still needs [facility] hopefully today (3) Right lower lobe pneumonia Status: Acute Assessment & Plan: 10/25 -discharge from SNF 09/23 -Day 1 Vanc and Zosyn for HCAP -WBC 12.4 --> 9.3 -CRP 1.51 -MAT protocol -IV solumedrol 125 mg in ED, now 80 mg IVP q8H 10/26 -Day 2 Vanc and Zosyn for HCAP -WBC 12.4 --> 9.3 --> 12.6 -will stop solumedrol and start PO prednisone 40 mg tomorrow -mucinex BID -tessalon TID prn cough -sputum cx no growth to date -continue MAT protocol 10/27 Day # 3 abx for HCAP 10/28 Day # 4 abx for HCAP 10/29 Day # 5 abx for HCAP Qualifiers: Qualified Codes: J18.1 - Lobar pneumonia, unspecified organism (4) HCAP (healthcare-associated pneumonia) Status: Acute Assessment & Plan: see above RLL PNA for details (5) Acute on chronic systolic CHF (congestive heart failure) Status: Acute Assessment & Plan: 10/25 -pt has ICD -last EF 20% in Jul 2017 per cardiology consultation -BNP on admission 812 -when seen in AM, shortness of breath improving; will hold on diuresis and monitor renal function for now 10/26 -BNP 812 --> 2763 -increased work of breathing, weight up 1.4 kg since admission -saline lock IV -40 mg Lasix IVP this AM 10/[address] Levy (6) Chronic kidney disease, stage 4, severely decreased GFR Status: Chronic (7) Paroxysmal atrial fibrillation Status: Chronic Assessment & Plan: 10/25 -currently in sinus on telemetry -resume home amiodarone 10/26 -EKG shows sinus rhythm (8) HTN (hypertension) Status: Chronic Assessment & Plan: 10/25 -resume home medication - hydralazine 25 mg PO BID Qualifiers: Qualified Codes: I10 - Essential (primary) hypertension (9) COPD (chronic obstructive pulmonary disease) Status: Chronic Qualifiers: Qualified Codes: J44.0 - Chronic obstructive pulmonary disease with acute lower respiratory infection (10) Nonischemic cardiomyopathy Status: Chronic Assessment & Plan: 10/25 -pt has ICD -last EF 20% in Jul 2017 per cardiology consultation (11) Hypothyroidism Status: Chronic Assessment & Plan: 10/25 -not currently on medication -will check TSH in AM 10/26 -TSH 2.82 on no medication Qualifiers: Qualified Codes: E03.9 - Hypothyroidism, unspecified (12) DVT prophylaxis Status: Acute Assessment & Plan: 10/25 Lovenox 30 mg SQ daily, renal dosed (13) Chest pain Status: Resolved Assessment & Plan: 10/26 -occurred briefly this AM after coughing spell, spontaneously resolved -EKG shows sinus rhythm -hx of afib with RVR -will monitor closely Qualifiers: Qualified Codes: R07.89 - Other chest pain Plan: Consults from Dr. Thrasher and Dr. Levy are appreciated [facility] consult appreciated and hope to transfer once bed opens up Very difficult situation considering the severe medical condition she and is only 57 years old patient appears to be end-stage in multiple processes but appears much improved but needs [facility] to decrease readmit risks (1) Sepsis Status: Resolved Assessment & Plan: 10/25 secondary to PNA with tachypnea, elevated CRP and WBC, worsening renal function and exacerbation of heart failure (2) Acute on chronic respiratory failure with hypoxia and hypercapnia Status: Acute Assessment & Plan: 10/25 -blood gas in ED on BiPap 65% --> -pH 7.32, pCO2 55, pO2 66 -transitioned to vapotherm this AM, tolerating well 10/26 -doing well on vapotherm and oxygen requirement decreasing slightly -continue to wean as tolerated (3) Right lower lobe pneumonia Status: Acute Assessment & Plan: 10/25 -discharge from SNF 09/23 -Day 1 Vanc and Zosyn for HCAP -WBC 12.4 --> 9.3 -CRP 1.51 -MAT protocol -IV solumedrol 125 mg in ED, now 80 mg IVP q8H 10/26 -Day 2 Vanc and Zosyn for HCAP -WBC 12.4 --> 9.3 --> 12.6 -will stop solumedrol and start PO prednisone 40 mg tomorrow -mucinex BID -tessalon TID prn cough -sputum cx no growth to date -continue MAT protocol (4) HCAP (healthcare-associated pneumonia) Status: Acute Assessment & Plan: see above RLL PNA for details (5) Acute on chronic systolic CHF (congestive heart failure) Status: Acute Assessment & Plan: 10/25 -pt has ICD -last EF 20% in Jul 2017 per cardiology consultation -BNP on admission 812 -when seen in AM, shortness of breath improving; will hold on diuresis and monitor renal function for now 10/26 -BNP 812 --> 2763 -increased work of breathing, weight up 1.4 kg since admission -saline lock IV -40 mg Lasix IVP this AM (6) Chronic kidney disease, stage 4, severely decreased GFR Status: Chronic (7) Paroxysmal atrial fibrillation Status: Chronic Assessment & Plan: 10/25 -currently in sinus on telemetry -resume home amiodarone 10/26 -EKG shows sinus rhythm (8) HTN (hypertension) Status: Chronic Assessment & Plan: 10/25 -resume home medication - hydralazine 25 mg PO BID (9) COPD (chronic obstructive pulmonary disease) Status: Chronic (10) Nonischemic cardiomyopathy Status: Chronic Assessment & Plan: 10/25 -pt has ICD -last EF 20% in Jul 2017 per cardiology consultation (11) Hypothyroidism Status: Chronic Assessment & Plan: 10/25 -not currently on medication -will check TSH in AM 10/26 -TSH 2.82 on no medication (12) DVT prophylaxis Status: Acute Assessment & Plan: 10/25 Lovenox 30 mg SQ daily, renal dosed (13) Chest pain Status: Resolved Assessment & Plan: 10/26 -occurred briefly this AM after coughing spell, spontaneously resolved -EKG shows sinus rhythm -hx of afib with RVR -will monitor closely Discharge Summary Discharge Physical Exam Allergies: Coded Allergies: propoxyphene napsylate (Unverified Allergy, Severe, SEVERE NAUSEA AND VOMITING , 04/03/13) meperidine (Unverified Allergy, Unknown, 12/19/14) venom-honey bee (Verified Allergy, Unknown, 09/19/13) lisinopril (Verified Adverse Reaction, Unknown, PT STATES "BOTTOMS OUT" HER BLOOD PRESSURE, 03/12/15) Patient states that it "bottoms out" her blood pressure. She will refuse to take this medication and reports it as an allergy. Vitals & I&Os Vital Signs Date Time Temp Pulse Resp B/P (MAP) Pulse Ox O2 Delivery O2 Flow Rate FiO2 10/30/17 10:21 98 High Flow N/C 3.00 10/30/17 07:39 97.2 67 21 128/67 (87) 10/29/17 18:27 40 General Appearance: Alert, Oriented X3, Cooperative Respiratory: Clear to Auscultation, Other (decreased BS) Skin: No Rashes, No Breakdown Neuro: Normal Gait, Normal Speech, Strength at 5/5 X4 Ext Psych/Mental Status: Mental Status NL, Mood NL Hospital Course Hospital course: Patient had a lengthy hospital course due to the acute on chronic respiratory failure requiring BiPAP and Vapotherm and pulmonary and cardiology consultations. She was admitted for sepsis and congestive heart failure with acute on chronic renal failure in addition to severe COPD exacerbation and she stabilized and labs remained stable throughout the entire hospital course. She was maintained on Zosyn for facility acquired pneumonia and steroids for exacerbation of COPD. Due to the severity of her COPD and decline status and she was originally admitted to [facility] one month prior required [facility] transfer thin care home placement for 1 month and then once again required admission to [facility] for severe respiratory decline. Creatinine chronically is 2.2-2.4 and she was maintained in sinus rhythm on amiodarone. Sepsis resolved and although she was much improved she was deemed high risk for readmission so [facility] was consulted report was given to Dr. Lanza and patient was transferred in stable condition but prognosis extremely poor considering her advanced COPD and congestive heart failure and renal failure at such a young age. Labs (last 24 hrs) Laboratory Tests 10/30/17 04:30: White Blood Count 11.1H, Red Blood Count 3.16L, Hemoglobin 9.8L, Hematocrit 30L , Mean Corpuscular Volume 96, Mean Corpuscular Hemoglobin 31, Mean Corpuscular Hemoglobin Concent 32, Red Cell Distribution Width 15.2H, Platelet Count 221, Mean Platelet Volume 12.7H, Neutrophils (%) (Auto) 73, Lymphocytes (%) (Auto) 17 , Monocytes (%) (Auto) 10, Eosinophils (%) (Auto) 1, Basophils (%) (Auto) 0, Neutrophils # (Auto) 8.1H, Lymphocytes # (Auto) 1.9, Monocytes # (Auto) 1.1H, Eosinophils # (Auto) 0.1, Basophils # (Auto) 0.0, Sodium Level 141, Potassium Level 3.5L, Chloride Level 100, Carbon Dioxide Level 26, Anion Gap 15H, Blood Urea Nitrogen 37H, Creatinine 2.32H, Estimat Glomerular Filtration Rate 22, BUN/ Creatinine Ratio 16, Glucose Level 93, Calcium Level 8.9, Phosphorus Level 3.3, Magnesium Level 2.3 Microbiology 10/25/17 Blood Culture - Preliminary, Resulted No growth 10/28/17 C. difficile GDH Antigen & Toxins - Final, Complete 10/25/17 MRSA Screen - Final, Complete MRSA not isolated Patient resulted labs reviewed. Pending Labs Laboratory Tests 10/30/17 04:30: White Blood Count 11.1, Red Blood Count 3.16, Hemoglobin 9.8, Hematocrit 30, Mean Corpuscular Volume 96, Mean Corpuscular Hemoglobin 31, Mean Corpuscular Hemoglobin Concent 32, Red Cell Distribution Width 15.2, Platelet Count 221, Mean Platelet Volume 12.7, Neutrophils (%) (Auto) 73, Lymphocytes (%) (Auto) 17 , Monocytes (%) (Auto) 10, Eosinophils (%) (Auto) 1, Basophils (%) (Auto) 0, Neutrophils # (Auto) 8.1, Lymphocytes # (Auto) 1.9, Monocytes # (Auto) 1.1, Eosinophils # (Auto) 0.1, Basophils # (Auto) 0.0, Sodium Level 141, Potassium Level 3.5, Chloride Level 100, Carbon Dioxide Level 26, Anion Gap 15, Blood Urea Nitrogen 37, Creatinine 2.32, Estimat Glomerular Filtration Rate 22, BUN/ Creatinine Ratio 16, Glucose Level 93, Calcium Level 8.9, Phosphorus Level 3.3, Magnesium Level 2.3 Discussion & Recommendations Discharge Planning: >30 minutes discharge planning Discharge Home Medications: Active Scripts Active Klor-Con M20 (Potassium Chloride) 20 Meq Tab.er.prt 20 Meq PO DAILY@0700 14 Days Furosemide 10 Mg/1 Ml Vial 40 Mg IVP DAILY@07,17 14 Days Prednisone 20 Mg Tab 40 Mg PO DAILY@0700 14 Days Zosyn 4.5 Gram Vial (Piperacillin Sodium/Tazobactam) 4.5 Gm Vial 4.5 Gm IV Q8H 3 Days Iprat-Albut 0.5-3(2.5) mg/3 ml (Ipratropium/Albuterol Sulfate) 3 Ml Ampul.neb 3 Ml IH QID 30 Days Enoxaparin Sodium 30 Mg/0.3 Ml Syringe 30 Mg SC DAILY@1200 30 Days Amiodarone HCl 200 Mg Tablet 200 Mg PO DAILY 30 Days Reported One Daily For Women 50+ Adv Tb (Multivitamins-Min/FA/Ginkgo) 1 Each Tablet 1 Tab PO DAILY Magnesium (Magnesium Oxide) 400 Mg Tablet 400 Mg PO DAILY Lorazepam 0.5 Mg Tablet 0.5 Mg PO HS Sertraline HCl 100 Mg Tablet 150 Mg PO DAILY TAKES 1 & 1/2 OF A (100 MG) TABLET Omeprazole 40 Mg Capsule.dr 40 Mg PO DAILY Isosorbide Mononitrate ER (Isosorbide Mononitrate) 30 Mg Tab.er.24h 30 Mg PO BID Furosemide 20 Mg Tablet 40 Mg PO DAILY TAKES 2 (20 MG) TABLETS Carvedilol 12.5 Mg Tablet 6.25 Mg PO BID TAKES 1/2 OF A (12.5 MG) TABLET Albuterol Sulfate 2.5 Mg/3 Ml Vial.neb 2.5 Mg NEB Q4H PRN Hydralazine HCl 25 Mg Tablet 25 Mg PO BID Ventolin Hfa (Albuterol Sulfate) 1 Puff Puff 2 Puff IH Q4H PRN 1 PUFF = 90 MCG Tylenol Extra Strength (Acetaminophen) 500 Mg Tablet 1,000 Mg PO Q6H PRN Instructions to patient/family Please see electronic discharge instructions given to patient. Clinical Quality Measures DVT/VTE Risk/Contraindication: Risk Factor Score Per Nursin RFS Level Per Nursing on Admit: 4+=Very High Problem Qualifiers (1) Sepsis: Sepsis type: sepsis due to unspecified organism Qualified Codes: A41.9 - Sepsis, unspecified organism (2) Right lower lobe pneumonia: Pneumonia type: due to unspecified organism Qualified Codes: J18.1 - Lobar pneumonia, unspecified organism (3) HTN (hypertension): Hypertension type: essential hypertension Qualified Codes: I10 - Essential ( primary) hypertension (4) COPD (chronic obstructive pulmonary disease): COPD type: COPD with acute lower respiratory infection Qualified Codes: J44.0 - Chronic obstructive pulmonary disease with acute lower respiratory infection (5) Hypothyroidism: Hypothyroidism type: unspecified Qualified Codes: E03.9 - Hypothyroidism, unspecified (6) Chest pain: Chest pain type: other chest pain Qualified Codes: R07.89 - Other chest pain SAM GIBBS DO October 30, 2017 09:40
[2017-10-30] MEDS ORDERED: FURO10VI IVP (10:01)
[2017-10-30] MEDS ORDERED: PIPE4.5V IV (10:01)
[2017-10-30] MEDS ORDERED: IPRA3AMP IH (10:01)
[2017-10-30] MEDS ORDERED: PRD20T PO (10:01)
[2017-10-30] MEDS ORDERED: POTA20TA8 PO (10:01)
[2017-10-30] MEDS ORDERED: ENOX30DI4 SC (10:01)
[2017-10-30] MEDS: ENOXAPARIN 30 MG/0.3 ML (LOVENOX) SYR SC SCH (11:52)
[2017-10-30 12:00] VITALS: BP 106/67
[2017-10-30 16:20] VITALS: BP 106/67
== END 2017-10-30 16:20 | DRG 871 ==
LOC: EDUNIT# 01:26 → ER 01:27 → ICU 02:36 → 4TH 14:43
PROVIDERS: ADMIT Family Medicine; ATTEND Family Medicine
DX: A41.9 Sepsis, unspecified organism (principal); J18.9 Pneumonia, unspecified organism; J96.01 Acute respiratory failure with hypoxia; J96.02 Acute respiratory failure with hypercapnia; J44.0 Chronic obstructive pulmonary disease with (acute) lower respiratory infection; I13.0 Hypertensive heart and chronic kidney disease with heart failure and stage 1 through stage 4 chronic kidney disease, or unspecified chronic kidney disease; I50.43 Acute on chronic combined systolic (congestive) and diastolic (congestive) heart failure; N18.4 Chronic kidney disease, stage 4 (severe); I42.8 Other cardiomyopathies; N17.9 Acute kidney failure, unspecified; D53.9 Nutritional anemia, unspecified; E87.6 Hypokalemia; E83.42 Hypomagnesemia; I48.0 Paroxysmal atrial fibrillation; J30.2 Other seasonal allergic rhinitis; G47.00 Insomnia, unspecified; E78.5 Hyperlipidemia, unspecified; R07.89 Other chest pain; E03.9 Hypothyroidism, unspecified; K21.9 Gastro-esophageal reflux disease without esophagitis; F41.9 Anxiety disorder, unspecified; F32.9 Major depressive disorder, single episode, unspecified; K44.9 Diaphragmatic hernia without obstruction or gangrene; G43.909 Migraine, unspecified, not intractable, without status migrainosus; Z87.891 Personal history of nicotine dependence; Z99.81 Dependence on supplemental oxygen; Z95.810 Presence of automatic (implantable) cardiac defibrillator
CPT/HCPCS: 36415; 36600; 71045; 76937; 80048; 80053; 81000; 82805; 83605; 83735; 83880; 84100; 84443; 85007; 85025; 85027; 85610; 85730; 86141; 87040; 87070; 87081; 87205; 87324; 87449; 93005; 94640; 94660; 94664; 94760; 96361; 96365; 96375

== ENCOUNTER 2017-12-10 07:46 | Inpatient (IN) | payer MEDICARE, MEDICAID ==
[2017-12-10] VITALS (9 sets, daily range): BP systolic 119–158; BP diastolic 68–105
[~2017-12-10] VITALS: Ht 144.8 cm; Wt 80.0 kg
[~2017-12-10 07:46] MED LIST changes: +AMIO200T2 PO; +CARV6.252 PO; +ENOX30DI4 SC; +FURO10VI IVP; +IPRA3AMP IH; +LORA0.5T PO; +MAGN400T39 PO; +MAGN500T PO; +MULT-878 PO; +PIPE4.5V IV; +POTA20TA8 PO; +SERT100T PO; +SERT100T8 PO
--- OUTSIDE RECORDS SUMMARY | 2017-12-10 07:52 | XMS REPORT ---
Author Author EDIS MORGAN Organization [facility] Address [address] [place] [address] Care Team Providers Care Immigration Manager Name Role Phone EDIS MORGAN Unavailable PROBLEMS Type Condition ICD9-CM Code PFI53-RF Code Onset Dates Condition Status SNOMED Code Problem Chronic systolic heart failure I50.22 Active 384204513 Problem Anemia associated with chronic renal failure D63.1 Active 364478045 Problem Mild depression F32.0 Active 319913101 Problem Essential hypertension I10 Active 54979009 Problem Chronic kidney disease, stage 4 (severe) N18.4 Active 564577864 Problem Paroxysmal atrial fibrillation I48.0 Active 842581981 Problem COPD exacerbation J44.1 Active 511229948513410 Problem Anxiety F41.9 Active 46874352 Problem Cardiomyopathy, unspecified type I42.9 Active 16327563 Problem Acute on chronic combined systolic and diastolic CHF (congestive heart failure) I50.43 Active [id number] ALLERGIES Substance Reaction Event Type Date Status Demerol Unknown Drug Allergy Feb, Active Bee Venom Unknown Non Drug Allergy Feb, Active ENCOUNTERS Encounter Location Date Diagnosis [place] [id number] [place] [address]40- 0759 October, [place] [address] [place] [id number] [place] [address] 81423- 6724 Sep, Chronic kidney disease, stage 4 (severe) N18.4 and Chronic kidney disease, stage IV (severe) N18.4 [facility] [address] [place] [place] [id number] [place] [address] 41492- 7827 Sep, Chronic kidney disease, stage 4 (severe) N18.4 [place] [id number] [place] [address] 84654- 5734 Sep, Anxiety F41.9 and Paroxysmal atrial fibrillation I48.0 [facility] [address] [address] Sep, [facility] [id number] [place] [address] 83884- 0621 Aug, [facility] [address] [id number] [place] [address] 07459- 7999 Aug, [facility] [address] [place], [place] [id number] Aug, Acute on chronic combined systolic and diastolic CHF (congestive heart failure) I50.43 ; Essential hypertension I10 ; CKD (chronic kidney disease) stage 4, GFR 15-29 ml/min N18.4 ; Paroxysmal atrial fibrillation I48.0 and Mild depression F32.0 [facility] [address] [place] [id number] [place] [address] 23344- 7348 Aug, [place] [address] [id number] [place] [address] 87451- 9364 Aug, [facility] [address] [id number] [place] [address] 72954- 9628 Aug, Acute on chronic respiratory failure with hypoxia J96.21 ; Acute kidney failure, unspecified N17.9 ; Chronic kidney disease, stage 4 ( severe) N18.4 ; Acute on chronic combined systolic and diastolic CHF ( congestive heart failure) I50.43 ; Paroxysmal atrial fibrillation I48.0 and Cardiomyopathy, unspecified type I42.9 [facility] [address] [address] Aug, [facility] [id number] [place] [address] 07508- 9491 Jul, [facility] [address] [place] [id number] [place] [address] 25202- 8050 Jul, [facility] [id number] [place] [address] 93185- 8095 Jul, [facility] [address] [place] [id number] [place] [address] 61893- 8239 07 Jul, 2017 [place] [address] [place] [id number] [place] [address] 06083- 1322 Jul, Community acquired pneumonia of right lower lobe of lung J18.1 ; CKD (chronic kidney disease) stage 4, GFR 15-29 ml/min N18.4 and Shortness of breath R06.02 [facility] [address] [id number] Jul, [place] [address] [place] [id number] [place] [address] 94255- 6178 Jun, Anxiety F41.9 [place] [address] 27181- 0440 Apr, Anxiety F41.9 [place] [address] [place] [id number] [place] [address] 04939- 6499 Apr, Cough R05 and Pneumonia of right lower lobe due to infectious organism J18.1 [place] [address] [place] [id number] [place] [address] 28815- 7618 Apr, [place] [address] [place] [id number] [place] [address] 82775- 7301 Apr, Chronic kidney disease, stage IV (severe) N18.4 and COPD exacerbation J44.1 [place] [address] [place] [id number] [place] [address] 95220- 7925 Feb, Chronic systolic heart failure I50.22 ; Essential hypertension I10 ; Anemia associated with chronic renal failure D63.1 and Chronic kidney disease, stage 4 (severe) N18.4 [place] [address] [place] [id number] [place] [address] 21231- 0802 Feb, Anxiety F41.9 [facility] [address] [place] [id number] [place] [address] 39780- 4035 Feb, [place] [address] [place] [id number] [place] [address] 29585- 8541 Feb, [place] [address] [address] 4[address] Jan, Other fatigue R53.83 ; Otalgia of both ears H92.03 and Urinary urgency R39.15 [facility] [address] [address]- 7192 Jan, Acute non-recurrent maxillary sinusitis J01.00 ; Chronic systolic heart failure I50.22 ; Stage 3 chronic kidney disease N18.3 and Mild depression F32.0 [facility] [address] [address]- 2080 Sep, [facility] [address] [place] [id number] [place] [address] 97632- 3954 Sep, [facility] [id number] [address]- 0370 Feb, [facility] [address] [place] [id number] [place] [address] 12836- 1785 Feb, [facility] [address] [address]- 8130 Dec, [facility] [id number] [address]- 7856 Dec, [facility] [address] [address]- 3685 Nov, [facility] [address] [address]- 4988 Nov, [facility] [address] [address]- 1777 Nov, [facility] [id number] [address]- 3675 Nov, [facility] [address] [address] October, [facility] [id number] [place] [address] [id number]- 0361 October, [facility] [place] [facility] [address] [id number] [place] Sep, [facility] [place] [facility] [address] [id number] [place] [address]- 6480 Sep, [facility] [place] [facility] [address] [id number] [place] [address]- 7731 Sep, [facility] [place] [facility] [address] [id number] [place] [address]- 2705 Sep, [facility] [place] [facility] [address] [id number] [place] [address]- 2666 Sep, [facility] [place] [facility] [address] [id number] [place] [address]- 6030 Aug, [facility] [place] [facility] [address] [id number] [place] [address]- 8370 Aug, [facility] [place] [facility] [address] [id number] [place] [address]- 2061 Aug, [facility] [place] [facility] [address] [id number] [place] [address]- 3460 Aug, [facility] [place] [facility] [address] [id number] [place] [address]- 5770 Aug, [facility] [place] [facility] [address] [id number] [place] [address]- 3948 Aug, [facility] [place] [facility] [address] [id number] [place] [address]- 7981 Aug, [facility] [place] [facility] [address] [id number] [place] [address]- 0265 Aug, [facility] [place] [facility] [address] [id number] [place] [address]- 4919 Jul, [facility] [place] [facility] [address] [id number] [place] [address]- 0996 Jul, [facility] [place] [facility] [address] [id number] [place] [address]- 7540 05 Jul, 2013 [facility] [address] [id number] [place] [address]- 8686 05 Jul, 2013 [facility] [place] [facility] [address] [id number] [place] 3976 Jul, [facility] [address] [id number] [place] [address]- 8646 Jul, [facility] [place] [facility] [address] [id number] [place] [address]- 5895 Jun, [facility] [address] [id number] [place] [address]86 Jun, [facility] [place] [facility] [address] [id number] [place] [address]- 8147 Jun, [facility] [place] [facility] [address] [id number] [place] [address]- 1299 Jun, [facility] [address] [id number] [place] [address]- 6176 Jun, [facility] [place] [facility] [address] [id number] [place] [address]- 3776 May, [facility] [address] [id number] [place] [address]- 6911 May, [facility] [place] [facility] [address] [id number] [place] [address]- 7128 May, [facility] [place] [facility] [address] [id number] [place] [address]- 6906 May, [facility] [place] [facility] [address] [id number] [place] [address]- 3885 May, [facility] [place] [facility] [address] [id number] [place] [address]- 8056 Apr, [facility] [place] [facility] [address] [id number] [place] [address]- 4000 Apr, [facility] [address] [id number] [place] [address]- 2551 Mar, [facility] [place] [facility] [address] [id number] [place] [address]- 6946 Mar, [facility] [place] [facility] [address] [id number] [place] [address]- 6188 Mar, [facility] [place] [facility] [address] [id number] [place] [address]- 8681 Mar, [facility] [place] [facility] [address] [id number] [place] [address]- 6239 Feb, [facility] [place] [facility] [address] [id number] [place] [address]- 8003 Jan, [facility] [place] [facility] [address] [id number] [place] [address]- 2460 Jan, [facility] [place] [facility] [address] [id number] [place] [address]- 9344 Aug, [facility] [place] [facility] [address] [id number] [place] [address]- 5987 Jul, [facility] [place] [facility] [address] [id number] [place] [address]- 1253 Jun, [facility] [place] [facility] [address] [id number] [place] [address]- 7194 May, [facility] [place] [facility] [address] [id number] [address]- 3347 May, [facility] [place] [facility] [address] [id number] [place] [address]- 8127 May, [facility] [place] [facility] [address] [id number] [place] [address]- 5680 May, [facility] [place] [facility] [address] [id number] [place] [address]- 3945 Apr, [facility] [place] [facility] [address] [id number] [place] [address]- 0924 Apr, [facility] [place] [facility] [address] [id number] [place] [address]- 1101 Mar, [facility] [place] [facility] [address] [id number] [place] [address]- 9098 Mar, [facility] [place] [facility] [address] [id number] [place] [address]- 5132 Mar, [facility] [place] [facility] [address] [id number] [place] [address]- 3453 Mar, [facility] [place] [facility] [address] [id number] [place] [address]- 0820 Mar, [facility] [place] [facility] [address] [id number] [place] [address]- 1957 Mar, [facility] [place] [facility] [address] [id number] [place] [address]- 0253 Dec, [facility] [place] [facility] [address] [id number] [place] [address]- 2673 Dec, [facility] [place] [facility] [address] [id number] [place] [address]- 8774 Nov, [facility] [place] [facility] [address] [facility] [id number] [place] [address] 2546 Nov, [facility] [place] [facility] [address] [id number] [place] [address]- 5314 October, [facility] [place] [facility] [address] [id number] [place] [address]- 2546 October, [facility] [place] [facility] [address] [id number] [place] [address]- 2300 Sep, [facility] [place] [facility] [address] [id number] [place] [address] 2546 Aug, [facility] [place] [facility] [address] [facility] [id number] [place] [address] 2546 Aug, [facility] [place] [facility] [address] [facility] [id number] [id number] [address] Aug, IMMUNIZATIONS No Known Immunizations SOCIAL HISTORY Never Assessed REASON FOR VISIT BH intake--Natasha Norris MA PLAN OF CARE Activity Details Follow Up 2 Months Reason: VITAL SIGNS Height 60 in 2017-03-17 Weight 188.1 lbs 2017-03-17 Heart Rate 76 bpm 2017-03-17 Respiratory Rate 20 2017-03-17 BMI 36.73 kg/m2 2017-03-17 Blood pressure systolic 138 mmHg 2017-03-17 Blood pressure diastolic 72 mmHg 2017-03-17 MEDICATIONS Medication Instructions Dosage Frequency Start Date End Date Duration Status Montelukast Sodium 10 MG Orally Once a day 1 tablet in the evening 24h Active Spiriva HandiHaler 18 MCG Inhalation Once a day 1 capsule 24h Active HydrOXYzine HCl 10 MG Orally three times a day as needed 1 tablet as needed 30 days Active Carvedilol 12.5 MG Orally 2 times a day 12h Active Isosorbide Mononitrate ER 30 MG Orally Once a day 2 tablets 24h Active Atorvastatin Calcium 20 MG Orally Once a day 1 tablet 24h Active Breo Ellipta 200-25 MCG/INH Inhalation Once a day 1 puff 24h Active Omeprazole 20 mg Orally 2 times a day 1 capsule 12h Feb, 30 day (s) Active 28-0.8 MG Active Trazodone HCl 150 MG Orally at night as needed for sleep 1.5 tablets 30 days Active Melatonin 3 MG Orally Once a day 1 tablet an hour before bedtime for sleep 24h Feb, 30 day(s) Active D3-1000 1000 UNIT Orally Once a day 1 capsule 24h Active Furosemide 20 MG Orally Once a day 1 tablet by Oral route 1 time per day PRN edema 24h Feb, Active Loratadine 10 MG Orally Once a day 1 tablet 24h Active Gabapentin 300 MG Orally Once a day 1 capsule 24h Active HydrALAZINE HCl 25 MG Orally 2 times a day 1 tablet with food 12h Active Ferrous Sulfate 325 (65 Fe) MG Orally twice a day 1 tablet 12h Active Magnesium Oxide 1 Tablet by Oral route 1 time per day Apr, Active Levothyroxine Sodium 100 MCG Orally Once a day 1 tablet on an empty stomach in the morning 24h Active RESULTS No Results PROCEDURES Procedure Date Ordered Result Body Site [facility] VISIT ESTABLISHED PATIENT Mar 17, 2017 INSTRUCTIONS MEDICATIONS ADMINISTERED No Known Medications MEDICAL (GENERAL) HISTORY Type Description Date Medical History hyperlipidemia Medical History htn Medical History kidney failure stage 4 - dx in 2012 Medical History hypothyroidisim Medical History neuropathy Medical History COPD - See's Dr Burnette in [facility] Surgical History 2 cesareans Surgical History defibrillator - 2012 Hospitalization History pneumonia for a week 2017 Hospitalization History Hospitalized at [facility]- CHF, Chest pain. Dismissed 07/11/17 07/10/2017 Hospitalization History [facility] pneumonia, hypoxia-[facility] 07/30/17
[2017-12-10] MEDS ORDERED: methylPREDNISolone 125 MG (Solu-MEDROL) VIAL IV STA (07:57)
[2017-12-10] MEDS ORDERED: FUROSEMIDE 40 MG/4 ML INJ (LASIX) IV STA (07:57)
[2017-12-10] MEDS ORDERED: RT-ALBUTEROL/IPRATROPIUM 3 ML (DUONEB) VIAL INH ONE (08:00)
[2017-12-10] MEDS ORDERED: DEXAMETHASONE 4 MG/ML SDV (DECADRON) IH ONE (08:00)
--- NOTE | 2017-12-10 08:04 | ED Dyspnea ---
General Stated Complaint: SOA Source of Information: Patient, EMS History of Present Illness Date Seen by Provider: Dec 10, 2017 Time Seen by Provider: 07:45 Initial Comments PT ARRIVES VIA EMS FROM HOME PT HAS COPD, AND HAS HAD INCREASED SHORTNESS OF BREATH FOR THE LAST 2-3 DAYS BEGAN HAVING INCREASED COUGH TODAY NO FEVER HAS SOME LOWER STERNAL CHEST PAIN, OCCASIONALLY IS WORSE WITH DEEP BREATHS NO SWELLING IN LEGS/ FEET PT STATES SHE NORMALLY WEARS O2 AT 2L/NC AT HS, BUT THE LAST FEW DAYS HAS BEEN WEARING IT CONTINUOUSLY PT STATES O2 SATS RUN IN THE 80'S WITHOUT IT, O2 SATS WERE UPPER 80'S ON 2L/NC FOR EMS, THEN UP TO 92-93% PT HAD NEB TREATMENT BEFORE CALLING EMS, AND EMS GAVE ONE EN ROUTE PT WAS HOSPITALIZED X WEEKS IN OCTOBER, FIRST ADMITTED HERE FORM 10/25-10/30, AND THEN WENT TO [facility] ON CPAP. NO VENTILATOR. DX COPD AND RLL PNEUMONIA WITH SEPSIS. 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 She will refuse to take this medication and reports it as an allergy. Home Medications Acetaminophen 500 Mg Tablet, 1,000 MG PO Q6H PRN for PAIN-MILD, (Reported) Amiodarone HCl 200 Mg Tablet, 200 MG PO DAILY Prescribed by: ALYSSA BURGOS on 10/25/17 1203 Carvedilol 12.5 Mg Tablet, 6.25 MG PO BID, (Reported) TAKES 1/2 OF A (12.5 MG) TABLET Enoxaparin Sodium 30 Mg/0.3 Ml Syringe, 30 MG SC DAILY@1200 Prescribed by: SAM GIBBS on 10/30/171000 Furosemide 10 Mg/1 Ml Vial, 40 MG IVP DAILY@07,17 Prescribed by: SAM GIBBS on 10/30/171000 Hydralazine HCl 25 Mg Tablet, 25 MG PO BID, (Reported) Ipratropium/Albuterol Sulfate 3 Ml Ampul.neb, 3 ML IH QID Prescribed by: SAM GIBBS on 10/30/171000 Isosorbide Mononitrate 30 Mg Tab.er.24h, 30 MG PO BID, (Reported) Lorazepam 0.5 Mg Tablet, 0.5 MG PO HS, (Reported) Magnesium Oxide 400 Mg Tablet, 400 MG PO DAILY, (Reported) Multivitamins-Min/FA/Ginkgo 1 Each Tablet, 1 TAB PO DAILY, (Reported) Omeprazole 40 Mg Capsule.dr, 40 MG PO DAILY, (Reported) Piperacillin Sodium/Tazobactam 4.5 Gm Vial, 4.5 GM IV Q8H Prescribed by: SAM GIBBS on 10/30/171000 Potassium Chloride 20 Meq Tab.er.prt, 20 MEQ PO DAILY@0700 Prescribed by: SAM GIBBS on 10/30/171000 Prednisone 20 Mg Tab, 40 MG PO DAILY@0700 Prescribed by: SAM GIBBS on 10/30/171000 Sertraline HCl 100 Mg Tablet, 150 MG PO DAILY, (Reported) TAKES 1 & 1/2 OF A (100 MG) TABLET Patient Home Medication List Home Medication List Reviewed: Yes Constitutional: no symptoms reported EENTM: no symptoms reported Respiratory: see HPI, cough, dyspnea on exertion; No phlegm; short of breath, wheezing Cardiovascular: see HPI, chest pain Gastrointestinal: no symptoms reported Genitourinary: no symptoms reported Musculoskeletal: no symptoms reported Skin: no symptoms reported Psychiatric/Neurological: No Symptoms Reported Endocrine: No Symptoms Reported Hematologic/Lymphatic: No Symptoms Reported Past [id number]-Pjrnqm Hx Patient Social History Alcohol Use: Past History (HISTORY OF HEAVY USE, NONE FOR > 20 YEARS) Recreational Drug Use: Yes (THC IN PAST, NONE FOR YEARS) Smoking Status: Former Smoker (1/2 PPD) Type Used: Cigarettes Former Smoker, Quit: Jul 09, 2017 2nd Hand Smoke Exposure: No Recent Hopitalizations: Yes (discharged from SNF 09/23/17) Immunizations Up To Date Tetanus Booster (TDap): Unknown PED Vaccines UTD: No Date of Pneumonia Vaccine: Mar 30, 2013 Date of Influenza Vaccine: Jul 11, 2017 Seasonal Allergies Seasonal Allergies: Yes Past Medical History Surgeries: Yes (CARDIAC CATH--NO INTERVENTION, DEFIBRILLATOR PLACEMENT ) Cardiac, Section, Defibrillator, Hysterectomy Respiratory: Yes Asthma, Pneumonia, COPD Currently Using CPAP: No Currently Using BIPAP: No Cardiac: Yes (CHF EF 20% non ischemic, left atrial thrombus) Atrial Fibrillation, Cardiomyopathy, High Cholesterol, Hypertension Neurological: Yes Headaches /Migraines 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 Disorders: Yes (Hysterectomy) 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, 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 Sexually Transmitted Disease: No HIV/AIDS: No Genitourinary: Yes Renal Failure Gastrointestinal: Yes (history of elevated transaminases, HX of elevated liver enzymes) Gastroesophageal Reflux, Hiatal Hernia Musculoskeletal: Yes Arthritis Endocrine: Yes Hypothyroidsim HEENT: Yes Cataract Loss of Vision: Denies Hearing Impairment: Denies Cancer: No Psychosocial: Yes Sleep Difficulties, Anxiety, Depression Integumentary: No Blood Disorders: No Adverse Reaction/Blood Tranf: No Family Medical History Cancer 19 FATHER (HODGKINS ) 19 MOTHER (BRAIN TUMOR ) Congenital heart disease 19 MOTHER Congestive heart failure 19 MOTHER Family history: Cardiovascular disease 19 MOTHER G8 SISTER G8 SISTER Family history: Hypertension 19 MOTHER G8 SISTER G8 SISTER Heart disease 19 MOTHER G8 SISTER G8 SISTER History of - respiratory disease 19 MOTHER G8 BROTHER G8 SISTER Heart Disease, Cancer, Hypertension Physical Exam Vital Signs Vital Signs - First Documented 12/10/17 07:46 Temp 95.6 Pulse 93 Resp 18 B/P (MAP) 110/79 (89) Pulse Ox 91 O2 Delivery Nasal Cannula O2 Flow Rate 4.00 Capillary Refill : General Appearance: WD/WN, Other (SMILING, TALKATIVE, MILDLY DYSPNEIC BUT ABLE TO TALK IN FULL BUT SHORT SENTENCES) Neck: Normal Inspection Respiratory: Decreased Breath Sounds (IN BASES), Rales (DIFFUSE BILATERAL), Wheezing (FAINT EXPIRATORY WHEEZING BILATERALLY) Cardiovascular: Regular Rate, Rhythm, No Edema, No JVD, No Murmur, Normal Peripheral Pulses Gastrointestinal: Non Tender, Soft Neurologic/Psychiatric: Alert, Oriented x3, No Motor/Sensory Deficits, Normal Mood/Affect, impregnator II-XII Norm as Tested Skin: Normal Color, Warm/Dry; No Rash Procedures/Interventions Date of ETT Placement: Aug 20, 2017 Time of ETT Placement: 628 Progress/Results/Core Measures Results/Orders Lab Results Laboratory Tests Test 12/10/17 07:50 12/10/17 08:06 Range/Units White Blood Count 8.9 4.3-11.0 10^3/uL Red Blood Count 3.00 L 4.35-5.85 10^6/uL Hemoglobin 9.5 L 11.5-16.0 G/DL Hematocrit 30 L 35-52 % Mean Corpuscular Volume 99 80-99 FL Mean Corpuscular Hemoglobin 32 25-34 PG Mean Corpuscular Hemoglobin Concent 32 32-36 G/DL Red Cell Distribution Width 14.9 H 10.0-14.5 % Platelet Count 366 130-400 10^3/uL Mean Platelet Volume 12.5 H 7.4-10.4 FL Neutrophils (%) (Auto) 82 H 42-75 % Lymphocytes (%) (Auto) 9 L 12-44 % Monocytes (%) (Auto) 7 0-12 % Eosinophils (%) (Auto) 1 0-10 % Basophils (%) (Auto) 1 0-10 % Neutrophils # (Auto) 7.3 1.8-7.8 X 10^3 Lymphocytes # (Auto) 0.8 L 1.0-4.0 X 10^3 Monocytes # (Auto) 0.6 0.0-1.0 X 10^3 Eosinophils # (Auto) 0.1 0.0-0.3 10^3/uL Basophils # (Auto) 0.1 0.0-0.1 10^3/uL Prothrombin Time 13.5 12.2-14.7 SEC INR Comment 1.0 0.8-1.4 Activated Partial Thromboplast Time 23 L 24-35 SEC Sodium Level 143 135-145 MMOL/L Potassium Level 4.1 3.6-5.0 MMOL/L Chloride Level 104 98-107 MMOL/L Carbon Dioxide Level 28 21-32 MMOL/L Anion Gap 11 5-14 MMOL/L Blood Urea Nitrogen 18 7-18 MG/DL Creatinine 1.75 H 0.60-1.30 MG/DL Estimat Glomerular Filtration Rate 30 BUN/Creatinine Ratio 10 Glucose Level 136 H 70-105 MG/DL Calcium Level 9.5 8.5-10.1 MG/DL Magnesium Level 1.9 1.8-2.4 MG/DL Total Bilirubin 0.3 0.1-1.0 MG/DL Aspartate Amino Transf (AST/SGOT) 22 5-34 U/L Alanine Aminotransferase (ALT/SGPT) 16 0-55 U/L Alkaline Phosphatase 104 40-136 U/L Troponin I < 0.30 <0.30 NG/ML B-Type Natriuretic Peptide 2009.6 H <100.0 PG/ML Total Protein 7.1 6.4-8.2 GM/DL Albumin 3.5 3.2-4.5 GM/DL Blood Gas Puncture Site LT RAD Blood Gas Patient Temperature 96.2 Arterial Blood pH 7.38 7.37-7.43 Arterial Blood Partial Pressure CO2 49 H 35-45 MMHG Arterial Blood Partial Pressure O2 52 L 79-93 MMHG Arterial Blood HCO3 29 H 23-27 MMOL/L Arterial Blood Total CO2 30.4 21.0-31.0 MMOL/L Arterial Blood Oxygen Saturation 88 L 94-100 % Arterial Blood Base Excess 3.6 H -2.5-2.5 MMOL/L Hank Test YES-POS Blood Gas Ventilator Setting NO Blood Gas Inspired Oxygen 4L My Orders Orders - YANE WAKEFIELD DO Saline Lock/Iv-Start (12/10/17 07:57) Ekg Tracing (12/10/17 07:57) O2 (12/10/17 07:57) Monitor-Rhythm Ecg Trace Only (12/10/17 07:57) Arterial Blood Gas (12/10/17 07:57) BNP (12/10/17 07:57) Cbc With Automated Diff (12/10/17 07:57) Comprehensive Metabolic Panel (12/10/17 07:57) Magnesium (12/10/17 07:57) Protime With Inr (12/10/17 07:57) Partial Thromboplastin Time (12/10/17 07:57) Troponin I (12/10/17 07:57) Chest 1 View, Ap/Pa Only (12/10/17 07:57) Albuterol/Ipra Inhalation Soln (Duoneb I (12/10/17 08:00) Dexamethasone Injection (Decadron Inject (12/10/17 08:00) Rt Request For Service (12/10/17 07:57) Furosemide Injection (Lasix Injection) (12/10/17 07:57) Methylprednisolone Sod Succ (Solu-Medrol (12/10/17 07:57) Svn Small Volume Nebulizer (12/10/17 07:57) Bipap (Bilevel) Set Up (12/10/17 08:39) Albuterol Pre-Mix Nebs (Rt) (Proventil (12/10/17 09:00) Svn Small Volume Nebulizer (12/10/17 08:54) Ipratropium 0.02% Neb Solution (Atrovent (12/10/17 09:00) Svn Small Volume Nebulizer (12/10/17 08:54) Lactic Acid Analyzer (12/10/17 09:07) Blood Culture (12/10/17 09:07) Cefepime Injection (Maxipime Injection) (12/10/17 09:15) Medications Given in ED Current Medications Medications Dose Ordered Sig/Cade Route Start Time Stop Time Status Last Admin Dose Admin Albuterol Sulfate 15 mg ONCE ONCE INH 12/10/17 09:00 12/10/17 09:01 DC 12/10/17 09:02 15 MG Albuterol/ Ipratropium 3 ml ONCE ONCE INH 12/10/17 08:00 12/10/17 08:01 DC 12/10/17 08:13 3 ML Cefepime HCl 2000 mg/Sodium Chloride 50 ml @ 100 mls/hr ONCE ONCE IV 12/10/17 09:15 12/10/17 09:44 DC 12/10/17 09:40 100 MLS/HR Dexamethasone Sodium Phosphate 20 mg ONCE ONCE IH 12/10/17 08:00 12/10/17 08:01 DC 12/10/17 08:14 20 MG Ipratropium [place] 0.5 mg ONCE ONCE IH 12/10/17 09:00 12/10/17 09:01 DC 12/10/17 09:02 0.5 MG Vital Signs/I&O 12/10/17 12/10/17 12/10/17 12/10/17 07:46 07:46 08:14 08:41 Temp 95.6 Pulse 93 87 Resp 18 17 B/P (MAP) 110/79 (89) Pulse Ox 91 93 98 O2 Delivery Nasal Cannula Nasal Cannula Nasal Cannula O2 Flow Rate 4.00 4.00 40.00 12/10/17 09:02 Pulse 91 Resp 25 Pulse Ox 99 O2 Flow Rate 40.00 Progress Progress Note : Progress Note GIVEN HOUR LONG NEB TREATMENT, LASIX, SOLU-MEDROL AND PLACED ON BIPAP WITH O2 SATS UP TO 98% PT RESTING COMFORTABLY, NO DYSPNEA INCREASED AERATION AND DECREASED RALES/WHEEZING. Initial ECG Impression Date: Dec 10, 2017 Initial ECG Impression Time: 07:56 Initial ECG Rate: 89 Initial ECG Rhythm: Normal Sinus Initial ECG Impression: Nonspecific Changes Initial ECG Comparisson: Unchanged Diagnostic Imaging Comments CXR--INCREASED DENSITY IN LEFT LUNG BASE--INFILTRATE VS FLUID, CARDIOMEGALY WITHOUT FAILURE--PER RADIOLOGIST REPORT @ 0900 Reviewed: Reviewed by Ma Departure Communication (Admissions) 0907--MESSAGE LEFT ON [employer] CELL. 0920--SPOKE WITH DR. BURGOS, ACCEPTS PT FOR ADMIT Impression Primary Impression: Acute on chronic respiratory failure with hypoxia and hypercapnia Additional Impressions: ACUTE ON CHRONIC CHF POSSIBLE LLL INFILTRATE VS EFFUSION CHRONIC RENAL FAILURE/INSUFFICIENCY COPD (chronic obstructive pulmonary disease) Disposition: 09 ADMITTED INPATIENT Condition: Improved Admissions Decision to Admit Reason: Admit from ER (General) Decision to Admit/Date: Dec 10, 2017 Time/Decision to Admit Time: 09:20 Departure-Patient Inst. Referrals: TEAGAN VERNON MD (PCP/Family) Primary Care Physician YANE WAKEFIELD DO Dec 10, 2017 08:04
[2017-12-10 08:14] LABS: BASOPHILS # (AUTO) 0.1 10^3/uL (0.0-0.1); BASOPHILS % (AUTO) 1 % (0-10); EOSINOPHILS # (AUTO) 0.1 10^3/uL (0.0-0.3); EOSINOPHILS % (AUTO) 1 % (0-10); HEMATOCRIT 30 % (35-52); HEMOGLOBIN 9.5 G/DL (11.5-16.0); LYMPHOCYTES # (AUTO) 0.8 X 10^3 (1.0-4.0); LYMPHOCYTES % (AUTO) 9 % (12-44); MEAN CORPUSCULAR HEMOGLOBIN 32 PG (25-34); MEAN CORPUSCULAR HGB CONC 32 G/DL (32-36); MEAN CORPUSCULAR VOLUME 99 FL (80-99); MEAN PLATELET VOLUME 12.5 FL (7.4-10.4); MONOCYTES # (AUTO) 0.6 X 10^3 (0.0-1.0); MONOCYTES % (AUTO) 7 % (0-12); NEUTROPHILS # (AUTO) 7.3 X 10^3 (1.8-7.8); NEUTROPHILS % (AUTO) 82 % (42-75); PLATELET COUNT 366 10^3/uL (130-400); RED CELL DISTRIBUTION WIDTH 14.9 % (10.0-14.5); WHITE BLOOD COUNT 8.9 10^3/uL (4.3-11.0)
[2017-12-10 08:14] LABS: ABG BASE EXCESS 3.6 MMOL/L (-2.5-2.5); ABG OXYGEN SATURATION 88 % (94-100); ABG PCO2 49 MMHG (35-45); ABG PH 7.38 (7.37-7.43); ABG PO2 52 MMHG (79-93); ABG TCO2 30.4 MMOL/L (21.0-31.0)
[2017-12-10 08:15] LABS: PROTHROMBIN TIME PATIENT 13.5 SEC (12.2-14.7)
[2017-12-10 08:19] LABS: ALLENS TEST YES-POS; INSPIRED O2 4L; PATIENT TEMP 96.2; VENTILATOR NO
[2017-12-10 08:27] LABS: ALANINE AMINOTRANSFERASE 16 U/L (0-55); ALBUMIN 3.5 GM/DL (3.2-4.5); ALKALINE PHOSPHATASE 104 U/L (40-136); BILIRUBIN,TOTAL 0.3 MG/DL (0.1-1.0); BUN/CREATININE RATIO 10; CALCIUM 9.5 MG/DL (8.5-10.1); CARBON DIOXIDE 28 MMOL/L (21-32); CHLORIDE 104 MMOL/L (98-107); CREATININE SERUM 1.75 MG/DL (0.60-1.30); GFR ESTIMATED 30; GLUCOSE 136 MG/DL (70-105); MAGNESIUM 1.9 MG/DL (1.8-2.4); POTASSIUM 4.1 MMOL/L (3.6-5.0); SODIUM 143 MMOL/L (135-145); TOTAL PROTEIN 7.1 GM/DL (6.4-8.2)
--- NOTE | 2017-12-10 08:45 | Diagnostic Imaging Report ---
INDICATION: Shortness of breath COMPARISON: 10/29/2017 FINDINGS: Upright portable view of the chest is obtained. Heart size is enlarged but unchanged. There is no pneumothorax, mediastinal widening or pleural fluid. Pacer device in the left chest is stable. There is some increased density at the lateral left lung base. Can't exclude a subtle amount of underlying infiltrate or pleural fluid. The right lung is clear. IMPRESSION: Increased density in the lateral left lung base could be secondary to subtle infiltrate or fluid. No additional acute abnormality is suspected. There is cardiomegaly without evidence of failure which is unchanged. Dictated by: Dictated on workstation # [id number]
[2017-12-10] MEDS ORDERED: RT-ALBUTEROL SULF 2.5 MG/3 ML PRE-MIX VIAL INH ONE (09:00)
[2017-12-10] MEDS ORDERED: RT-IPRATROPIUM (ATROVENT) 0.5MG/2.5ML AMP IH ONE (09:00)
[2017-12-10] MEDS ORDERED: CEFEPIME INJECTION 2,000 MG in NS (IVPB) 50 ML IV ONE (09:15)
[2017-12-10] MEDS ORDERED: CALC-870 PO (13:34)
[2017-12-10] MEDS ORDERED: FURO20TA4 PO (13:34)
[2017-12-10] MEDS ORDERED: IPRA3AMP IH (13:34)
[2017-12-10] MEDS ORDERED: ONDA4TAB8 SL (13:34)
[2017-12-10] MEDS ORDERED: LEVO25TA5 PO (13:34)
[2017-12-10] MEDS ORDERED: OXYC-529 PO (13:34)
[2017-12-10] MEDS ORDERED: IPRA3AMP NEB (13:34)
[2017-12-10] MEDS ORDERED: LOPE-145 PO (13:34)
[2017-12-10] MEDS ORDERED: AMIO200T2 PO (13:34)
[2017-12-10] MEDS ORDERED: FERR-84 PO (13:36)
[2017-12-10] MEDS ORDERED: methylPREDNISolone 125 MG (Solu-MEDROL) VIAL IVP SCH (14:00)
[2017-12-10] MEDS ORDERED: FUROSEMIDE 40 MG/4 ML INJ (LASIX) IVP NR (15:00)
[2017-12-10] MEDS ORDERED: CEFEPIME INJECTION 2,000 MG in NS (IVPB) 50 ML IV SCH (17:00)
[2017-12-10] MEDS ORDERED: LEVOFLOXACIN 750 MG TAB (LEVAQUIN) PO SCH (17:00)
--- NOTE | 2017-12-10 17:03 | History & Physicial (CHS) ---
HPI History of Present Illness: Pt presented to ED from home via EMS with complaint of increased shortness of breath over the last 2-3 days. Patient normally wears 2L NC at night but has been wearing it continuously for the last few days. She reports that her sats were in the high 80's without oxygen, she would put it on and get her sats up to 97% and then take it off. Discharged from [facility] 11/21/17 after 3 week stay (10/30 - 11/21) for COPD and pulmonary rehab after RLL PNA with sepsis 10/25 - 10/30, CPAP, but no vent. Does not use CPAP at home. Patient with history of multiple hospitalizations this year; she estimates this is her 7th. She was at [facility] for several weeks in August after prolonged illness, she also just completed a several week stay at [facility] as noted above. Chart review shows that in July when hospitalized (multiple times) patient was on 3L O2 continuously. Source: patient, family, RN/MD, RN notes reviewed, jail records, old records Exam Limitations: no limitations Date seen by provider: Dec 11, 2017 Time Seen by Provider: 13:15 Attending Physician Malika Howell Holly R MD Consult Date of Admission Dec 10, 2017 at 09:20 Home Medications Home Medications Reviewed patient Home Medication Reconciliation performed by pharmacy medication reconciliations conservation technician and/or nursing. Patients Allergies have been reviewed. Allergies Coded Allergies: propoxyphene napsylate (Unverified Allergy, Severe, SEVERE NAUSEA AND VOMITING , 04/03/13) meperidine (Unverified Allergy, Unknown, 12/19/14) venom-honey bee (Verified Allergy, Unknown, 09/19/13) lisinopril (Verified Adverse Reaction, Unknown, PT STATES "BOTTOMS OUT" HER BLOOD PRESSURE, 03/12/15) Patient states that it "bottoms out" her blood pressure. She will refuse to take this medication and reports it as an allergy. [id number] Hx Patient Social History Marrital Status: single Living Status: lives independently Employed/Student: unemployed Alcohol Use: Past History (HISTORY OF HEAVY USE, NONE FOR > 20 YEARS) Recreational Drug Use: Yes (THC IN PAST, NONE FOR YEARS) Smoking Status: Former Smoker (1/2 PPD) Former smoker/When Quit: Jan 04, 2013 Type Used: Cigarettes 2nd Hand Smoke Exposure: No Recent Foreign Travel: No Contact w/other who traveled: No Recent Hopitalizations: Yes (discharged from SNF 09/23/17, hospitalized 10/25-10/30 , [facility] 10/30-11/21) Recent Infectious Disease Expo: No Immunizations Up To Date Tetanus Booster (TDap): Unknown Date of Pneumonia Vaccine: Mar 30, 2013 Date of Influenza Vaccine: Jul 11, 2017 Past Medical History COPD with oxygen dependence at home (3L continuously until 11/21/17, then usually only 2-3 at night) HTN Hypothyroidism HLD Stage IV CKD, baseline Cr ~1.9 Macrocytic Anemia Insomnia Paroxysmal Afib Hx Afib with RVR - Jul 2017 Systolic and Diastolic Heart Failure - 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% as of August 2017 Hx of apical thrombus Moderate Pulmonary HTN per echo August 2017 Moderate Mitral Regurg per echo August 2017 Hx of dialysis at some point, as pt has documented history of insertion and removal of hemodialysis catheter Family Medical History Significant Family History: Heart Disease, Cancer, Hypertension Family History: Cancer 19 FATHER (HODGKINS ) 19 MOTHER (BRAIN TUMOR ) Congenital heart disease 19 MOTHER Congestive heart failure 19 MOTHER Family history: Cardiovascular disease 19 MOTHER G8 SISTER G8 SISTER Family history: Hypertension 19 MOTHER G8 SISTER G8 SISTER Heart disease 19 MOTHER G8 SISTER G8 SISTER History of - respiratory disease 19 MOTHER G8 BROTHER G8 SISTER Review of Systems (CHC) Constitutional: see HPI EENTM: No no symptoms reported Respiratory: see HPI, cough, dyspnea on exertion, short of breath Cardiovascular: no symptoms reported Gastrointestinal: no symptoms reported Genitourinary: no symptoms reported : No Musculoskeletal: no symptoms reported Skin: no symptoms reported Psychiatric/Neurological: No Symptoms Reported Reviewed Test Results Reviewed Test Results Lab Microbiology 12/10/17 Blood Culture - Preliminary, Resulted No growth 12/10/17 Blood Culture - Preliminary, Resulted No growth 12/10/17 09:25: Lactic Acid Level 0.76 Laboratory Tests Test 12/10/17 07:50 12/10/17 08:06 12/10/17 09:25 12/11/17 05:15 Range/Units White Blood Count 8.9 9.9 4.3-11.0 10^3/uL Red Blood Count 3.00 L 2.81 L 4.35-5.85 10^6/uL Hemoglobin 9.5 L 9.0 L 11.5-16.0 G/DL Hematocrit 30 L 27 L 35-52 % Mean Corpuscular Volume 99 97 80-99 FL Mean Corpuscular Hemoglobin 32 32 25-34 PG Mean Corpuscular Hemoglobin Concent 32 33 32-36 G/DL Red Cell Distribution Width 14.9 H 14.2 10.0-14.5 % Platelet Count 366 311 130-400 10^3/uL Mean Platelet Volume 12.5 H 12.4 H 7.4-10.4 FL Neutrophils (%) (Auto) 82 H 94 H 42-75 % Lymphocytes (%) (Auto) 9 L 4 L 12-44 % Monocytes (%) (Auto) 7 2 0-12 % Eosinophils (%) (Auto) 1 0 0-10 % Basophils (%) (Auto) 1 0 0-10 % Neutrophils # (Auto) 7.3 9.3 H 1.8-7.8 X 10^3 Lymphocytes # (Auto) 0.8 L 0.4 L 1.0-4.0 X 10^3 Monocytes # (Auto) 0.6 0.2 0.0-1.0 X 10^3 Eosinophils # (Auto) 0.1 0.0 0.0-0.3 10^3/uL Basophils # (Auto) 0.1 0.0 0.0-0.1 10^3/uL Prothrombin Time 13.5 12.2-14.7 SEC INR Comment 1.0 0.8-1.4 Activated Partial Thromboplast Time 23 L 24-35 SEC Sodium Level 143 138 135-145 MMOL/L Potassium Level 4.1 4.5 3.6-5.0 MMOL/L Chloride Level 104 100 98-107 MMOL/L Carbon Dioxide Level 28 25 21-32 MMOL/L Anion Gap 11 13 5-14 MMOL/L Blood Urea Nitrogen 18 27 H 7-18 MG/DL Creatinine 1.75 H 2.02 H 0.60-1.30 MG/DL Estimat Glomerular Filtration Rate 30 25 BUN/Creatinine Ratio 10 13 Glucose Level 136 H 128 H 70-105 MG/DL Calcium Level 9.5 9.5 8.5-10.1 MG/DL Magnesium Level 1.9 1.8-2.4 MG/DL Total Bilirubin 0.3 0.3 0.1-1.0 MG/DL Aspartate Amino Transf (AST/SGOT) 22 14 5-34 U/L Alanine Aminotransferase (ALT/SGPT) 16 15 0-55 U/L Alkaline Phosphatase 104 90 40-136 U/L Troponin I < 0.30 <0.30 NG/ML B-Type Natriuretic Peptide 2009.6 H <100.0 PG/ML Total Protein 7.1 6.5 6.4-8.2 GM/DL Albumin 3.5 3.2 3.2-4.5 GM/DL Blood Gas Puncture Site LT RAD Blood Gas Patient Temperature 96.2 Arterial Blood pH 7.38 7.37-7.43 Arterial Blood Partial Pressure CO2 49 H 35-45 MMHG Arterial Blood Partial Pressure O2 52 L 79-93 MMHG Arterial Blood HCO3 29 H 23-27 MMOL/L Arterial Blood Total CO2 30.4 21.0-31.0 MMOL/L Arterial Blood Oxygen Saturation 88 L 94-100 % Arterial Blood Base Excess 3.6 H -2.5-2.5 MMOL/L Hank Test YES-POS Blood Gas Ventilator Setting NO Blood Gas Inspired Oxygen 4L Lactic Acid Level 0.76 0.50-2.00 MMOL/L Neutrophils % (Manual) 84 % Lymphocytes % (Manual) 5 % Monocytes % (Manual) 3 % Eosinophils % (Manual) 0 % Basophils % (Manual) 0 % Band Neutrophils 8 % Polychromasia SLIGHT Anisocytosis SLIGHT Tear Drop Cells SLIGHT C-Reactive Protein High Sensitivity 3.04 H 0.00-0.50 MG/DL Radiology Date of Exam: 12/10/17 CHEST 1 VIEW, AP/PA ONLY INDICATION: Shortness of breath COMPARISON: 10/29/2017 FINDINGS: Upright portable view of the chest is obtained. Heart size is enlarged but unchanged. There is no pneumothorax, mediastinal widening or pleural fluid. Pacer device in the left chest is stable. There is some increased density at the lateral left lung base. Can't exclude a subtle amount of underlying infiltrate or pleural fluid. The right lung is clear. IMPRESSION: Increased density in the lateral left lung base could be secondary to subtle infiltrate or fluid. No additional acute abnormality is suspected. There is cardiomegaly without evidence of failure which is unchanged. Physical Exam-(CHC) Physical Exam Vital Signs VS - Last 72 Hours, by Label 12/11/17 12/11/17 12/11/17 12/11/17 15:59 19:00 19:07 19:17 Pulse 76 75 Resp 17 Pulse Ox 95 96 96 O2 Delivery Nasal Cannula Nasal Cannula O2 Flow Rate 4.00 2.00 30.00 12/11/17 12/11/17 12/11/17 12/12/17 19:35 21:00 21:57 00:41 Temp 98.3 97.8 Pulse 74 81 Resp 16 20 B/P (MAP) 122/60 (80) 130/62 (84) Pulse Ox 96 96 96 O2 Delivery NIV Bilevel Nasal Cannula Nasal Cannula NIV Bilevel O2 Flow Rate 35.00 4.00 2.00 35.00 14.00 14.00 12/12/17 12/12/17 12/12/17 12/12/17 01:00 02:31 04:35 04:53 Temp 98.3 Pulse 77 73 76 74 Resp 19 18 15 B/P (MAP) 123/66 (85) Pulse Ox 97 94 95 O2 Delivery NIV Bilevel O2 Flow Rate 30.00 35.00 30.00 14.00 12/12/17 12/12/17 12/12/17 12/12/17 06:43 07:00 08:00 09:00 Temp 97.2 Pulse 83 76 Resp 18 B/P (MAP) 132/78 (96) Pulse Ox 94 93 97 O2 Delivery Nasal Cannula Nasal Cannula Nasal Cannula O2 Flow Rate 2.00 3.00 2.00 12/12/17 12/12/17 12/12/17 10:30 12:00 13:20 Temp 97.9 Pulse 81 81 Resp 18 18 B/P (MAP) 128/69 (88) 128/69 Pulse Ox 97 96 96 O2 Delivery Nasal Cannula Nasal Cannula Nasal Cannula O2 Flow Rate 2.00 3.00 2.00 Capillary Refill : Less Than 3 Seconds General Appearance: WD/WN, no apparent distress Eyes: Bilateral Eye Normal Inspection, Bilateral Eye EOMI HEENT: normal ENT inspection; No scleral icterus (R), No scleral icterus (L), No photophobia Neck: non-tender, full range of motion, supple, normal inspection Respiratory: chest non-tender, lungs clear, no respiratory distress, no accessory muscle use, decreased breath sounds (diminished in bases) Cardiovascular: regular rate, rhythm, no gallop, no JVD, systolic murmur Gastrointestinal: normal bowel sounds, non tender, soft, no organomegaly, no pulsatile mass; No guarding, No rebound Rectal: deferred Extremities: normal range of motion, non-tender, normal inspection, no calf tenderness, slow capillary refill, swelling Neurologic/Psychiatric: supervisor electronics testing II-XII nml as tested, no motor/sensory deficits, alert, normal mood/affect, oriented x 3 Skin: normal color, warm/dry Assessment/Plan Assessment/Plan Admission Dx Acute Exacerbation of Chronic Combined Systolic and Diastolic Heart Failure Acute on Chronic Respiratory Failure COPD with Acute Exacerbation Suspected PNA Chronic Kidney Disease Stage IV Hypertension Hypothyroidism Anemia of Chronic Disease Paroxysmal Atrial Fibrillation Hx of Afib with RVR Obesity, BMI 38 Admission Status: Inpatient Order (span 2 midnights) Reason for Inpatient Admission: treatment and stabilization of inpatient conditions; given the patient's multiple comorbid conditions and her multiple hospitalizations this year, it will likely take at least 2-3 nights before she is well enough for discharge Assessment & Plan Acute Exacerbation of Chronic Combined Systolic and Diastolic Heart Failure 12/11 -pt given Lasix in ED yesterday -last echo August 2017 at [place], EF 10-15% -intermittent BiPap yesterday and overnight last night -this morning the patient reports she is feeling much better and that her breathing is much improved Acute on Chronic Respiratory Failure 12/11 -pt using BiPap for respiratory support when she came in -previously 3L O2 continuously, however when discharged from [facility] 11/21/17 pt reports she was not using O2 during the day, just 2-3L at night -pt started on steroids, MAT protocol, nebs -this AM pt is using 3L NC and feels that her breathing is much improved, pt is hoping to be able to be discharged tomorrow if she continues to feel well COPD with Acute Exacerbation 12/11 -pt with know history of COPD, previously with continuous O2 use as stated above , now reports normally only at night, except the previous few days "when the humidity got her like it always does" pt had sats in the upper 80's on room air , and would use her O2 at home until her sats were about 97% -reports she was told by RT that she should get a CPAP for home use when she is sleeping; discussed that a sleep study would need to be done after pt was discharged from the hospital to see if she would qualify for this or not -IV steroids yesterday and have gradually been tapering then will start prednisone taper -pt with known extremely precarious respiratory status Suspected PNA 12/11 -questionable infiltrate on CXR in the ED, abx started as a precaution, as pt's health status is extremely precarious -repeat CXR today shows improvement from yesterday -WBC 8.9 --> 9.9 -CRP 3.04 -pt feels much improved, but given her tenuous respiratory status, continue IV abx for now Chronic Kidney Disease Stage IV 12/11 -baseline Cr ~1.9 -Cr 1.75 --> 2.02 -avoid nephrotoxic medications when possible Hypertension 12/11 -resume home meds Hypothyroidism 12/11 -resume home meds Anemia of Chronic Disease 12/11 -Hgb 9.5 --> 9 Paroxysmal Atrial Fibrillation 12/11 -on tele -continue home meds Hx of Afib with RVR Obesity, BMI 38 Patient appears and feels much improved from how she felt on arrival yesterday. Will continue IV abx and trend out one more day; if patient continues to do well overnight and feels well tomorrow, will discontinue abx and likely DC to home in 24-48 hours. Given her history, patient still remains at high risk for decompensation. Copy Copies To 1: TEAGAN VERNON MD, MARGARET E DO Dec 10, 2017 17:03
[2017-12-10] MEDS ORDERED: VANCOMYCIN 1500 MG/NS 500 ML IVPB IV NR ×2 (17:30)
[2017-12-10] MEDS ORDERED: CATHETER FLUSH 10 ML SYR IV PRN (17:45)
[2017-12-10] MEDS ORDERED: VANCOMYCIN INJECTION 1,000 MG in NS (IVPB) 250 ML IV SCH (18:00)
[2017-12-10] MEDS: RT-ALBUTEROL/IPRATROPIUM 3 ML (DUONEB) VIAL INH SCH ×2 (18:44→21:52)
[2017-12-10] MEDS: methylPREDNISolone 40 MG/ML (Solu-MEDROL) VIAL IV SCH (18:51)
[2017-12-10] MEDS: CEFEPIME INJECTION 2,000 MG in NS (IVPB) 50 ML IV SCH (18:51)
[2017-12-10] MEDS ORDERED: RT-ALBUTEROL/IPRATROPIUM 3 ML (DUONEB) VIAL INH PRN (20:00)
[2017-12-10] MEDS ORDERED: morphine INJ 10 MG/ML 1ML (SYR OR VIAL) IVP PRN (20:30)
[2017-12-10] MEDS ORDERED: ACETAMINOPHEN 500 MG TAB (TYLENOL) PO PRN (20:30)
[2017-12-10] MEDS ORDERED: LOPERAMIDE 2 MG (IMODIUM) CAP PO PRN (20:30)
[2017-12-10] MEDS ORDERED: RAMELTEON 8 MG (ROZEREM) TAB PO PRN (20:30)
[2017-12-10] MEDS ORDERED: LORazepam 1 MG (ATIVAN) TAB PO PRN (20:30)
[2017-12-10] MEDS ORDERED: CALCIUM CARBONATE 300 MG PO PRN (20:30)
[2017-12-10] MEDS ORDERED: HYDROcodone/APAP 5 MG/325 MG (LORTAB) TAB PO PRN (20:30)
[2017-12-10] MEDS: CARVEDILOL 12.5 MG (COREG) TABLET PO SCH (21:40)
[2017-12-10] MEDS: SERTRALINE 100 MG (ZOLOFT) TAB PO SCH (21:41)
[2017-12-10] MEDS: LORazepam 0.5 MG (ATIVAN) TABLET PO SCH (21:41)
[2017-12-10] MEDS: ISOSORBIDE MONONITRATE 30 MG (IMDUR) TAB PO SCH (21:41)
[2017-12-10] MEDS: CATHETER FLUSH 10 ML SYR IV SCH (21:42)
[2017-12-10] MEDS ORDERED: CALCIUM CARBONATE 500 MG (TUMS) TAB.CHEW PO PRN (21:45)
[2017-12-11] VITALS (7 sets, daily range): BP systolic 110–126; BP diastolic 59–93
[2017-12-11] MEDS: methylPREDNISolone 40 MG/ML (Solu-MEDROL) VIAL IV SCH ×4 (02:26→17:50)
[2017-12-11] MEDS: RT-ALBUTEROL/IPRATROPIUM 3 ML (DUONEB) VIAL INH SCH ×6 (02:36→21:57)
[2017-12-11 05:29] LABS: BASOPHILS % (AUTO) 0 % (0-10); EOSINOPHILS % (AUTO) 0 % (0-10); HEMATOCRIT 27 % (35-52); LYMPHOCYTES # (AUTO) 0.4 X 10^3 (1.0-4.0); LYMPHOCYTES % (AUTO) 4 % (12-44); MEAN CORPUSCULAR HEMOGLOBIN 32 PG (25-34); MEAN CORPUSCULAR HGB CONC 33 G/DL (32-36); MEAN CORPUSCULAR VOLUME 97 FL (80-99); MEAN PLATELET VOLUME 12.4 FL (7.4-10.4); MONOCYTES # (AUTO) 0.2 X 10^3 (0.0-1.0); MONOCYTES % (AUTO) 2 % (0-12); NEUTROPHILS # (AUTO) 9.3 X 10^3 (1.8-7.8); NEUTROPHILS % (AUTO) 94 % (42-75); PLATELET COUNT 311 10^3/uL (130-400); RED BLOOD COUNT 2.81 10^6/uL (4.35-5.85); RED CELL DISTRIBUTION WIDTH 14.2 % (10.0-14.5); WHITE BLOOD COUNT 9.9 10^3/uL (4.3-11.0)
[2017-12-11 05:46] LABS: ALBUMIN 3.2 GM/DL (3.2-4.5); BILIRUBIN,TOTAL 0.3 MG/DL (0.1-1.0); CALCIUM 9.5 MG/DL (8.5-10.1); CREATININE SERUM 2.02 MG/DL (0.60-1.30); POTASSIUM 4.5 MMOL/L (3.6-5.0); TOTAL PROTEIN 6.5 GM/DL (6.4-8.2)
[2017-12-11 05:55] LABS: BAND NEUTROPHILS 8 %; BASOPHILS % (MANUAL) 0 %; EOSINOPHILS % (MANUAL) 0 %; LYMPHOCYTES % (MANUAL) 5 %; MONOCYTES % (MANUAL) 3 %; NEUTROPHILS % (MANUAL) 84 %
[2017-12-11 05:56] LABS: ANISOCYTOSIS SLIGHT; POLYCHROMASIA SLIGHT; TEAR DROP CELLS SLIGHT
[2017-12-11] MEDS: CATHETER FLUSH 10 ML SYR IV SCH ×2 (06:29→16:31)
[2017-12-11] MEDS: MULTIVIT W/MINERALS TAB (THERAGRAN M) PO SCH (06:29)
[2017-12-11] MEDS: PANTOPRAZOLE 40 MG (PROTONIX) TAB PO SCH (06:29)
[2017-12-11] MEDS: ISOSORBIDE MONONITRATE 30 MG (IMDUR) TAB PO SCH ×2 (08:44→21:42)
[2017-12-11] MEDS: CARVEDILOL 12.5 MG (COREG) TABLET PO SCH ×2 (08:44→21:42)
[2017-12-11] MEDS: FERROUS SULF 325 MG (IRON) TAB PO SCH (08:44)
[2017-12-11] MEDS: AMIODARONE 200 MG (CORDARONE) TAB PO SCH (08:44)
[2017-12-11] MEDS: MAGNESIUM OXIDE (MAG-OX)400 MG TAB PO SCH (08:44)
[2017-12-11] MEDS: LEVOTHYROXINE 25 MCG (LEVOTHROID) TAB PO SCH (08:44)
[2017-12-11] MEDS ORDERED: MULTIVITAMINS MIN PO SCH (09:00)
[2017-12-11] MEDS ORDERED: [UNRECOGNIZED DRUG - OTHER] PO SCH (09:00)
[2017-12-11] MEDS ORDERED: NON-FORMULARY MEDICATION 1 EA EA (Omeprazole 40 MG) PO SCH (09:00)
[2017-12-11] MEDS ORDERED: NON-FORMULARY MEDICATION 1 EA EA (Magnesium Oxide (Magnesium) 400 MG) PO SCH (09:00)
[2017-12-11] MEDS ORDERED: GINKGO PO SCH (09:00)
--- NOTE | 2017-12-11 09:25 | Diagnostic Imaging Report ---
INDICATION: Congestive heart failure, followup. TECHNIQUE: Single view chest 6:18 AM. CORRELATION STUDY: 12/10/2017 FINDINGS: Left-sided unipolar pacemaker remains in place. Cardiac enlargement. Vascular slightly prominent but improved. Lung perdue are generally stable. Density of the lateral left lung base unchanged perhaps some fluid. IMPRESSION: 1. Cardiac enlargement with vascular congestion but overall appears improved. Likely left pleural effusion present. Dictated by: Dictated on workstation # [id number]
[2017-12-11] MEDS ORDERED: VANCOMYCIN 1 GM/NS 250 ML IVPB IV SCH ×2 (17:00)
[2017-12-11] MEDS: CEFEPIME INJECTION 2,000 MG in NS (IVPB) 50 ML IV SCH (17:51)
[2017-12-11] MEDS: LORazepam 0.5 MG (ATIVAN) TABLET PO SCH (21:42)
[2017-12-11] MEDS: SERTRALINE 100 MG (ZOLOFT) TAB PO SCH (21:42)
[2017-12-12 00:41] VITALS: BP 130/62
[2017-12-12] MEDS: CATHETER FLUSH 10 ML SYR IV SCH ×2 (00:43→06:11)
[2017-12-12] MEDS: methylPREDNISolone 40 MG/ML (Solu-MEDROL) VIAL IV SCH ×3 (00:43→12:07)
[2017-12-12] MEDS: RT-ALBUTEROL/IPRATROPIUM 3 ML (DUONEB) VIAL INH SCH ×3 (02:31→10:30)
[2017-12-12 04:35] VITALS: BP 123/66
[2017-12-12] MEDS: PANTOPRAZOLE 40 MG (PROTONIX) TAB PO SCH (06:15)
[2017-12-12] MEDS: MULTIVIT W/MINERALS TAB (THERAGRAN M) PO SCH (06:15)
[2017-12-12 08:00] VITALS: BP 132/78
[2017-12-12] MEDS: FERROUS SULF 325 MG (IRON) TAB PO SCH (08:34)
[2017-12-12] MEDS: LEVOTHYROXINE 25 MCG (LEVOTHROID) TAB PO SCH (08:34)
[2017-12-12] MEDS: AMIODARONE 200 MG (CORDARONE) TAB PO SCH (08:35)
[2017-12-12] MEDS: CARVEDILOL 12.5 MG (COREG) TABLET PO SCH (08:35)
[2017-12-12] MEDS: ISOSORBIDE MONONITRATE 30 MG (IMDUR) TAB PO SCH (08:35)
[2017-12-12] MEDS: MAGNESIUM OXIDE (MAG-OX)400 MG TAB PO SCH (08:35)
[2017-12-12] MEDS ORDERED: ALBUMIN 25% 25 GM/100 ML 50 ML IV NR (08:42)
[2017-12-12] MEDS ORDERED: FUROSEMIDE 40 MG/4 ML INJ (LASIX) IVP NR (08:42)
[2017-12-12 09:29] LABS: BASOPHILS % (AUTO) 0 % (0-10); EOSINOPHILS % (AUTO) 0 % (0-10); HEMATOCRIT 26 % (35-52); HEMOGLOBIN 8.5 G/DL (11.5-16.0); LYMPHOCYTES # (AUTO) 0.4 X 10^3 (1.0-4.0); LYMPHOCYTES % (AUTO) 3 % (12-44); MEAN CORPUSCULAR HGB CONC 32 G/DL (32-36); MEAN CORPUSCULAR VOLUME 97 FL (80-99); MEAN PLATELET VOLUME 11.9 FL (7.4-10.4); MONOCYTES # (AUTO) 0.6 X 10^3 (0.0-1.0); MONOCYTES % (AUTO) 4 % (0-12); NEUTROPHILS # (AUTO) 14.1 X 10^3 (1.8-7.8); NEUTROPHILS % (AUTO) 94 % (42-75); PLATELET COUNT 308 10^3/uL (130-400); RED CELL DISTRIBUTION WIDTH 14.9 % (10.0-14.5)
[2017-12-12 09:30] LABS: MEAN CORPUSCULAR HEMOGLOBIN 31 PG (25-34)
[2017-12-12 09:47] LABS: CALCIUM 9.4 MG/DL (8.5-10.1); CREATININE SERUM 2.34 MG/DL (0.60-1.30); MAGNESIUM 2.2 MG/DL (1.8-2.4)
[2017-12-12 10:30] LABS: ANISOCYTOSIS SLIGHT; BAND NEUTROPHILS 0 %; BASOPHILS % (MANUAL) 0 %; EOSINOPHILS % (MANUAL) 0 %; LYMPHOCYTES % (MANUAL) 2 %; MONOCYTES % (MANUAL) 2 %; NEUTROPHILS % (MANUAL) 96 %; POLYCHROMASIA SLIGHT
[2017-12-12 12:00] VITALS: BP 128/69
--- NOTE | 2017-12-12 12:07 | Discharge Summary ---
Diagnosis/Chief Complaint Date of Admission Dec 10, 2017 at 09:20 Date of Discharge 12/12/17 Admission Diagnosis Admission Diagnosis Acute Exacerbation of Chronic Combined Systolic and Diastolic Heart Failure Acute on Chronic Respiratory Failure COPD with Acute Exacerbation Suspected PNA Chronic Kidney Disease Stage IV Hypertension Hypothyroidism Anemia of Chronic Disease Paroxysmal Atrial Fibrillation Hx of Afib with RVR Obesity, BMI 38 Discharge Diagnosis Acute Exacerbation of Chronic Combined Systolic and Diastolic Heart Failure 12/11 -pt given Lasix in ED yesterday -last echo August 2017 at [place], EF 10-15% -intermittent BiPap yesterday and overnight last night -this morning the patient reports she is feeling much better and that her breathing is much improved 12/12 -pt continues to feel much improved and would like discharge; will discharge to home today Acute on Chronic Respiratory Failure 12/11 -pt using BiPap for respiratory support when she came in -previously 3L O2 continuously, however when discharged from [facility] 11/21/17 pt reports she was not using O2 during the day, just 2-3L at night -pt started on steroids, MAT protocol, nebs -this AM pt is using 3L NC and feels that her breathing is much improved, pt is hoping to be able to be discharged tomorrow if she continues to feel well 12/12 -pt continues to feel much improved -will discharge to home today -still using 2L NC, pt has needed supplies for home O2 use and will continue O2 use at home until office follow up COPD with Acute Exacerbation 12/11 -pt with know history of COPD, previously with continuous O2 use as stated above , now reports normally only at night, except the previous few days "when the humidity got her like it always does" pt had sats in the upper 80's on room air , and would use her O2 at home until her sats were about 97% -reports she was told by RT that she should get a CPAP for home use when she is sleeping; discussed that a sleep study would need to be done after pt was discharged from the hospital to see if she would qualify for this or not -IV steroids yesterday and have gradually been tapering then will start prednisone taper -pt with known extremely precarious respiratory status 12/12 -pt feels her breathing is much improved and would like discharge -home today, continue O2 use at home until follow up appt in office -prednisone taper as ordered Suspected PNA 12/11 -questionable infiltrate on CXR in the ED, abx started as a precaution, as pt's health status is extremely precarious -repeat CXR today shows improvement from yesterday -WBC 8.9 --> 9.9 -CRP 3.04 -pt feels much improved, but given her tenuous respiratory status, continue IV abx for now 12/12 -WBC elevated today, but this can be attributed to steroids, CRP trending down, now 1.08, no evidence of PNA on repeat CXR -will stop abx at discharge Chronic Kidney Disease Stage IV 12/11 -baseline Cr ~1.9 -Cr 1.75 --> 2.02 -avoid nephrotoxic medications when possible Hypertension 12/11 -resume home meds Hypothyroidism 12/11 -resume home meds Anemia of Chronic Disease 12/11 -Hgb 9.5 --> 9 Paroxysmal Atrial Fibrillation 12/11 -on tele -continue home meds Hx of Afib with RVR Obesity, BMI 38 Patient reports still feeling well and would like to be discharged. Is using 2L NC, but has home oxygen that she can use and is already set up with home health; uses [facility]. Will discharge with prednisone taper and home oxygen, close office follow up with Dr. Dubose next week. Chief Complaint/HPI Chief Complaint/HPI Pt presented to ED from home via EMS with complaint of increased shortness of breath over the last 2-3 days. Patient normally wears 2L NC at night but has been wearing it continuously for the last few days. She reports that her sats were in the high 80's without oxygen, she would put it on and get her sats up to 97% and then take it off. Discharged from [facility] 11/21/17 after 3 week stay (10/30 - 11/21) for COPD and pulmonary rehab after RLL PNA with sepsis 10/25 - 10/30, CPAP, but no vent. Does not use CPAP at home. Patient with history of multiple hospitalizations this year; she estimates this is her 7th. She was at [facility] for several weeks in August after prolonged illness, she also just completed a several week stay at [facility] as noted above. Chart review shows that in July when hospitalized (multiple times) patient was on 3L O2 continuously. Discharge Summary-Simple/Stand Consultations Discharge Physical Examination Allergies: Coded Allergies: propoxyphene napsylate (Unverified Allergy, Severe, SEVERE NAUSEA AND VOMITING , 04/03/13) meperidine (Unverified Allergy, Unknown, 12/19/14) venom-honey bee (Verified Allergy, Unknown, 09/19/13) lisinopril (Verified Adverse Reaction, Unknown, PT STATES "BOTTOMS OUT" HER BLOOD PRESSURE, 03/12/15) Patient states that it "bottoms out" her blood pressure. She will refuse to take this medication and reports it as an allergy. Vitals & I&Os Vital Sign - Last 12Hours Date Time Temp Pulse Resp B/P (MAP) Pulse Ox O2 Delivery O2 Flow Rate FiO2 12/12/17 12:00 97.9 81 18 128/69 (88) 96 Nasal Cannula 3.00 12/10/17 17:09 30 Intake and Output 12/12/17 00:00 Intake Total 2724 ml Output Total 900 ml Balance 1824 ml General Appearance: Alert, Oriented X3, Cooperative, No Acute Distress HEENT: Atraumatic, EOMI, Mucous Memb Moist/[place] Respiratory: Other (diminished in bilateral bases) Cardiovascular: Regular Rate, Normal S1, Normal S2 Abdominal: Normal Bowel Sounds, Soft, No Tenderness Extremities: No Cyanosis, Normal Pulses Skin: No Rashes, No Significant Lesion Neuro: Normal Speech, Normal Tone, Sensation Intact, Cranial Nerves 3-12 NL Psych/Mental Status: Mental Status NL, Mood NL Hospital Course See final discharge diagnosis. Labs Laboratory Tests Test 12/12/17 09:20 Range/Units White Blood Count 15.0 H 4.3-11.0 10^3/uL Red Blood Count 2.70 L 4.35-5.85 10^6/uL Hemoglobin 8.5 L 11.5-16.0 G/DL Hematocrit 26 L 35-52 % Mean Corpuscular Volume 97 80-99 FL Mean Corpuscular Hemoglobin 31 25-34 PG Mean Corpuscular Hemoglobin Concent 32 32-36 G/DL Red Cell Distribution Width 14.9 H 10.0-14.5 % Platelet Count 308 130-400 10^3/uL Mean Platelet Volume 11.9 H 7.4-10.4 FL Neutrophils (%) (Auto) 94 H 42-75 % Lymphocytes (%) (Auto) 3 L 12-44 % Monocytes (%) (Auto) 4 0-12 % Eosinophils (%) (Auto) 0 0-10 % Basophils (%) (Auto) 0 0-10 % Neutrophils # (Auto) 14.1 H 1.8-7.8 X 10^3 Lymphocytes # (Auto) 0.4 L 1.0-4.0 X 10^3 Monocytes # (Auto) 0.6 0.0-1.0 X 10^3 Eosinophils # (Auto) 0.0 0.0-0.3 10^3/uL Basophils # (Auto) 0.0 0.0-0.1 10^3/uL Neutrophils % (Manual) 96 % Lymphocytes % (Manual) 2 % Monocytes % (Manual) 2 % Eosinophils % (Manual) 0 % Basophils % (Manual) 0 % Band Neutrophils 0 % Polychromasia SLIGHT Anisocytosis SLIGHT Sodium Level 137 135-145 MMOL/L Potassium Level 4.0 3.6-5.0 MMOL/L Chloride Level 100 98-107 MMOL/L Carbon Dioxide Level 26 21-32 MMOL/L Anion Gap 11 5-14 MMOL/L Blood Urea Nitrogen 40 H 7-18 MG/DL Creatinine 2.34 H 0.60-1.30 MG/DL Estimat Glomerular Filtration Rate 21 BUN/Creatinine Ratio 17 Glucose Level 168 H 70-105 MG/DL Calcium Level 9.4 8.5-10.1 MG/DL Magnesium Level 2.2 1.8-2.4 MG/DL C-Reactive Protein High Sensitivity 1.09 H 0.00-0.50 MG/DL Discussion & Recommendations Pt would like to discuss sleep study at follow up appt, for perhaps getting home CPAP for sleep at home, was recommended by RT while pt in hospital and patient would like to pursue. Discharge Condition at discharge stable Instructions to patient/family Please see electronic discharge instructions given to patient. Discharge Medications Reviewed and agree with Discharge Medication list on patient's Discharge Instruction sheet Clinical Quality Measures DVT/VTE Risk/Contraindication: Risk Factor Score Per Nursin RFS Level Per Nursing on Admit: 4+=Very High Copy Copies To 1: TEAGAN DUBOSE MD, MARGARET E DO Dec 12, 2017 12:07
[2017-12-12] MEDS ORDERED: PRD20T PO (12:10)
--- NOTE | 2017-12-12 12:12 | Discharge Instructions ---
Discharge [facility] Discharge Medications New, Converted or Re-Newed RX: Transmitted to Pharmacy New Medications: Prednisone (Prednisone) 20 Mg Tab 40 MG PO DAILY for 5 Days, #10 TAB Continued Medications: Acetaminophen (Tylenol Extra Strength) 500 Mg Tablet 1000 MG PO Q6H PRN for PAIN-MILD, TAB Amiodarone HCl (Amiodarone HCl) 200 Mg Tablet 200 MG PO DAILY, TAB Calcium Carbonate (Tums X-Str) 300 Mg Tab.chew 300 MG PO QID PRN for INDIGESTION, TAB Carvedilol (Carvedilol) 12.5 Mg Tablet 12.5 MG PO BID, TAB Ferrous Sulfate (Iron) 325 Mg Tablet 325 MG PO DAILY, TAB Furosemide (Furosemide) 20 Mg Tablet 20 MG PO DAILY, TAB Ipratropium/Albuterol Sulfate (Iprat-Albut 0.5-3(2.5) mg/3 ml) 3 Ml Ampul.neb 3 ML NEB TID, EACH Ipratropium/Albuterol Sulfate (Iprat-Albut 0.5-3(2.5) mg/3 ml) 3 Ml Ampul.neb 3 ML IH Q4H PRN for SHORTNESS OF BREATH, EACH Isosorbide Mononitrate (Isosorbide Mononitrate ER) 30 Mg Tab.er.24h 15 MG PO BID, TAB TAKES 1/2 (30MG) TABLET Levothyroxine Sodium (Levothyroxine Sodium) 25 Mcg Tablet 25 MCG PO DAILY, TAB Loperamide HCl (Imodium A-D) 2 Mg Capsule 2 MG PO UD PRN for DIARRHEA, CAP Lorazepam (Lorazepam) 0.5 Mg Tablet 0.5 MG PO HS, TAB Magnesium Oxide (Magnesium) 400 Mg Tablet 400 MG PO DAILY, TAB Multivitamins-Min/FA/Ginkgo (One Daily For Women 50+ Adv Tb) 1 Each Tablet 1 TAB PO DAILY, TAB Omeprazole (Omeprazole) 40 Mg Capsule.dr 40 MG PO DAILY, CAP Ondansetron (Zofran Odt) 4 Mg Tab.rapdis 4 MG SL Q6H PRN for NAUSEA/VOMITING-1ST LINE, TAB Oxycodone HCl (Oxycodone HCl) 5 Mg Tablet 5 MG PO Q4H PRN for PAIN-SEVERE, TAB Sertraline HCl (Sertraline HCl) 100 Mg Tablet 150 MG PO HS, TAB TAKES 1 & 1/2 OF A (100 MG) TABLET Patient Instructions Patient Instructions -keep follow up appt -use home oxygen as needed -discuss sleep study for home CPAP with Dr. Dubose at follow up appt -take medication as prescribed Goal/Follow Up Appt: Dr. Dubose 12/16 at 1:40 pm Return to The Hospital For: chest pain or pressure, shortness of breath out of normal for you that is not improved with rest and home oxygen and nebulizers, fever >101 not improved with tylenol, nausea or vomiting that makes you unable to keep down clear liquids or medications for more than 12 hours, and other emergent complaints or concerns Activity & Diet Discharge Diet: Cardiac Diet Activity as Tolerated: Yes Copy Copies To 1: TEAGAN DUBOSE MD, MARGARET E DO Dec 12, 2017 12:12
[2017-12-12 13:20] VITALS: BP 128/69
[2017-12-12] MEDS ORDERED: TROUGH ORDER-PHARMACY XX NR (16:00)
[2017-12-13] MEDS ORDERED: predniSONE 20 MG TAB PO SCH ×2 (07:00)
== END 2017-12-12 13:20 | disposition home health service (06) | DRG 189 ==
LOC: EDUNIT# 07:46 → ER 07:48 → 4TH 09:20
PROVIDERS: ADMIT Family Medicine; ATTEND Family Medicine
DX: J96.21 Acute and chronic respiratory failure with hypoxia (principal); J96.22 Acute and chronic respiratory failure with hypercapnia; I50.43 Acute on chronic combined systolic (congestive) and diastolic (congestive) heart failure; I13.0 Hypertensive heart and chronic kidney disease with heart failure and stage 1 through stage 4 chronic kidney disease, or unspecified chronic kidney disease; N18.4 Chronic kidney disease, stage 4 (severe); I42.9 Cardiomyopathy, unspecified; J44.1 Chronic obstructive pulmonary disease with (acute) exacerbation; I48.0 Paroxysmal atrial fibrillation; D63.8 Anemia in other chronic diseases classified elsewhere; G47.00 Insomnia, unspecified; E03.9 Hypothyroidism, unspecified; E78.00 Pure hypercholesterolemia, unspecified; F41.9 Anxiety disorder, unspecified; F32.9 Major depressive disorder, single episode, unspecified; M19.91 Primary osteoarthritis, unspecified site; K21.9 Gastro-esophageal reflux disease without esophagitis; K44.9 Diaphragmatic hernia without obstruction or gangrene; G43.909 Migraine, unspecified, not intractable, without status migrainosus; J30.2 Other seasonal allergic rhinitis; Z99.81 Dependence on supplemental oxygen; Z95.810 Presence of automatic (implantable) cardiac defibrillator; Z87.891 Personal history of nicotine dependence
CPT/HCPCS: 36415; 36600; 51702; 71045; 80048; 80053; 82805; 83605; 83735; 83880; 84484; 85007; 85025; 85027; 85610; 85730; 86141; 87040; 93005; 93041; 94640; 94660; 94664; 94760; 96374; 96375

== ENCOUNTER 2017-12-14 01:02 | Inpatient (IN) | payer MEDICARE, MEDICAID ==
[~2017-12-14] VITALS: Ht 144.8 cm; Wt 80.3 kg
[~2017-12-14 01:02] MED LIST changes: +CALC-870 PO; +LEVO25TA5 PO; +LOPE-145 PO; +ONDA4TAB8 SL; +OXYC-529 PO
[2017-12-14] MEDS ORDERED: RT-ALBUTEROL SULF 2.5 MG/3 ML PRE-MIX VIAL ONE (01:07)
[2017-12-14] MEDS ORDERED: RT-ALBUTEROL/IPRATROPIUM 3 ML (DUONEB) VIAL ONE (01:08)
[2017-12-14] MEDS ORDERED: RT-ALBUTEROL SULF 2.5 MG/3 ML PRE-MIX VIAL INH STA (01:10)
[2017-12-14] MEDS ORDERED: RT-ALBUTEROL/IPRATROPIUM 3 ML (DUONEB) VIAL INH ONE (01:15)
--- NOTE | 2017-12-14 01:23 | ED Respiratory ---
General Chief Complaint: Respiratory Problems Stated Complaint: COPD Nursing Triage Note: PT BROUGHT IN BY EMS WITH COMPLAINT OF SOB. WAS RELEASED FROM HOSPITAL ON THE . Source: patient Exam Limitations: no limitations History of Present Illness Date Seen by Provider: Dec 14, 2017 Time Seen by Provider: 01:05 Initial Comments Patient presents the ER by EMS with a chief complaint that she woke up in middle of night feeling very short of breath. She went to her living room and put on her oxygen at 2 L and this plus another breathing treatment did not help her symptoms. She called her home health nurse came out turned her oxygen up to 3-1/2 L which did not help her. She was given the option to continue breathing treatments or go to the ER and she elected to go to the ER. She was just discharged a day ago from the hospital for shortness of breath. She is having a moderate yellow sputum expectorated cough. Without any fevers but she did have some chills earlier in the morning yesterday. She is not on antibiotics. She is a former smoker not on CPAP but she has a sleep study set up to get her qualified for CPAP. She does not wear oxygen at all times. She's having no chest pain but her shortness of breath is worse on exertion. Allergies and Home Medications Allergies Coded Allergies: propoxyphene napsylate (Unverified Allergy, Severe, SEVERE NAUSEA AND VOMITING , 04/03/13) meperidine (Unverified Allergy, Unknown, 12/19/14) venom-honey bee (Verified Allergy, Unknown, 09/19/13) lisinopril (Verified Adverse Reaction, Unknown, PT STATES "BOTTOMS OUT" HER BLOOD PRESSURE, 03/12/15) Patient states that it "bottoms out" her blood pressure. She will refuse to take this medication and reports it as an allergy. Home Medications Acetaminophen 500 Mg Tablet, 1,000 MG PO Q6H PRN for PAIN-MILD, (Reported) Amiodarone HCl 200 Mg Tablet, 200 MG PO DAILY, (Reported) Calcium Carbonate 300 Mg Tab.chew, 300 MG PO QID PRN for INDIGESTION, (Reported) Carvedilol 12.5 Mg Tablet, 12.5 MG PO BID, (Reported) Ferrous Sulfate 325 Mg Tablet, 325 MG PO DAILY, (Reported) Furosemide 20 Mg Tablet, 20 MG PO DAILY, (Reported) Ipratropium/Albuterol Sulfate 3 Ml Ampul.neb, 3 ML NEB TID, (Reported) Ipratropium/Albuterol Sulfate 3 Ml Ampul.neb, 3 ML IH Q4H PRN for SHORTNESS OF BREATH, (Reported) Isosorbide Mononitrate 30 Mg Tab.er.24h, 15 MG PO BID, (Reported) TAKES 1/2 (30MG) TABLET Levothyroxine Sodium 25 Mcg Tablet, 25 MCG PO DAILY, (Reported) Loperamide HCl 2 Mg Capsule, 2 MG PO UD PRN for DIARRHEA, (Reported) Lorazepam 0.5 Mg Tablet, 0.5 MG PO HS, (Reported) Magnesium Oxide 400 Mg Tablet, 400 MG PO DAILY, (Reported) Multivitamins-Min/FA/Ginkgo 1 Each Tablet, 1 TAB PO DAILY, (Reported) Omeprazole 40 Mg Capsule.dr, 40 MG PO DAILY, (Reported) Ondansetron 4 Mg Tab.rapdis, 4 MG SL Q6H PRN for NAUSEA/VOMITING-1ST LINE, ( Reported) Oxycodone HCl 5 Mg Tablet, 5 MG PO Q4H PRN for PAIN-SEVERE, (Reported) Prednisone 20 Mg Tab, 40 MG PO DAILY Prescribed by: ALYSSA BURGOS on 12/12/17 1210 Sertraline HCl 100 Mg Tablet, 150 MG PO HS, (Reported) TAKES 1 & 1/2 OF A (100 MG) TABLET Patient Home Medication List Home Medication List Reviewed: Yes Review of Systems Constitutional: chills; No diaphoresis, No fever, No malaise EENTM: No hearing loss, No ear pain Respiratory: cough, phlegm, short of breath; No stridor, No wheezing Cardiovascular: No chest pain, No edema Gastrointestinal: No abdominal pain, No constipation, No diarrhea, No nausea, No vomiting Genitourinary: No discharge, No dysuria Musculoskeletal: No back pain, No joint pain Skin: No pruritus, No rash Past Usyksmc-Abdtbx-Kihymt Hx Patient Social History Alcohol Use: Denies Use Recreational Drug Use: No (SEE ABOVE) Smoking Status: Former Smoker Type Used: Cigarettes Former Smoker, Quit: Jul 09, 2017 2nd Hand Smoke Exposure: No Recent Foreign Travel: No Contact w/Someone Who Travel: No Recent Infectious Disease Expo: No Recent Hopitalizations: Yes (D/C 12/12/17) Immunizations Up To Date Tetanus Booster (TDap): Unknown PED Vaccines UTD: No Date of Pneumonia Vaccine: Mar 30, 2013 Date of Influenza Vaccine: Jul 11, 2017 Seasonal Allergies Seasonal Allergies: Yes Past Medical History Surgeries: Yes (CARDIAC CATH--NO INTERVENTION, DEFIBRILLATOR PLACEMENT ) Cardiac, Section, Defibrillator, Hysterectomy Respiratory: Yes Asthma, Pneumonia, COPD Currently Using CPAP: No Currently Using BIPAP: No Cardiac: Yes (CHF EF 20% non ischemic, left atrial thrombus) Atrial Fibrillation, Cardiomyopathy, High Cholesterol, Hypertension Neurological: Yes Headaches /Migraines 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 Disorders: Yes (Hysterectomy) 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 Disorders: Denies FIELD SUPPORT REP History: Hysterectomy, Menopausal Sexually Transmitted Disease: No HIV/AIDS: No Genitourinary: Yes Renal Failure Gastrointestinal: Yes (history of elevated transaminases, HX of elevated liver enzymes) Gastroesophageal Reflux, Hiatal Hernia Musculoskeletal: Yes Arthritis Endocrine: Yes Hypothyroidsim HEENT: Yes Cataract Loss of Vision: Denies Hearing Impairment: Denies Cancer: No Bladder Psychosocial: Yes Sleep Difficulties, Anxiety, Depression Integumentary: No Blood Disorders: No Adverse Reaction/Blood Tranf: No Family Medical History Cancer 19 FATHER (HODGKINS ) 19 MOTHER (BRAIN TUMOR ) Congenital heart disease 19 MOTHER Congestive heart failure 19 MOTHER Family history: Cardiovascular disease 19 MOTHER G8 SISTER G8 SISTER Family history: Hypertension 19 MOTHER G8 SISTER G8 SISTER Heart disease 19 MOTHER G8 SISTER G8 SISTER History of - respiratory disease 19 MOTHER G8 BROTHER G8 SISTER Heart Disease, Cancer, Hypertension Physical Exam Vital Signs Vital Signs - First Documented 12/14/17 12/14/17 01:02 01:08 Temp 96.7 Pulse 90 Resp 25 B/P (MAP) 142/78 (99) Pulse Ox 100 O2 Delivery NIV/CPAP O2 Flow Rate 40.00 Capillary Refill : Less Than 3 Seconds General Appearance: WD/WN, mild distress Eyes: Bilateral Eye Normal Inspection, Bilateral Eye PERRL, Bilateral Eye EOMI HEENT: PERRL/EOMI, normal ENT inspection, pharynx normal Neck: non-tender, normal inspection Respiratory: chest non-tender, no accessory muscle use, respiratory distress ( mild), decreased breath sounds; No accessory muscle use, No rales, No wheezing Cardiovascular: normal peripheral pulses, regular rate, rhythm, no edema Gastrointestinal: normal bowel sounds, non tender, soft Neurologic/Psychiatric: alert, normal mood/affect, oriented x 3 Skin: normal color, warm/dry Focused Exam Lactate Level 12/14/17 02:37: Lactic Acid Level Laboratory Tests Test 12/14/17 02:37 Procedures/Interventions Date of ETT Placement: Aug 20, 2017 Time of ETT Placement: 628 Progress/Results/Core Measures Suspected Sepsis Recent Fever Within 48 Hours: No Infection Criteria Present: None New/Unexplained Altered Menta: No Sepsis Screen: No Definite Risk SIRS Temperature:96.7 Pulse: 90 Respiratory Rate: 25 Laboratory Tests 12/14/17 01:10: White Blood Count 17.9H Blood Pressure 142 /78 Mean: 99 12/14/17 02:37: Laboratory Tests 12/14/17 01:10: Creatinine 2.75#H, Platelet Count 377, Total Bilirubin 0.2 Results/Orders Lab Results Laboratory Tests Test 12/14/17 01:10 12/14/17 02:37 Range/Units White Blood Count 17.9 H 4.3-11.0 10^3/uL Red Blood Count 3.11 L 4.35-5.85 10^6/uL Hemoglobin 9.6 L 11.5-16.0 G/DL Hematocrit 30 L 35-52 % Mean Corpuscular Volume 96 80-99 FL Mean Corpuscular Hemoglobin 31 25-34 PG Mean Corpuscular Hemoglobin Concent 32 32-36 G/DL Red Cell Distribution Width 15.2 H 10.0-14.5 % Platelet Count 377 130-400 10^3/uL Mean Platelet Volume 12.3 H 7.4-10.4 FL Neutrophils (%) (Auto) 82 H 42-75 % Lymphocytes (%) (Auto) 8 L 12-44 % Monocytes (%) (Auto) 10 0-12 % Eosinophils (%) (Auto) 0 0-10 % Basophils (%) (Auto) 0 0-10 % Neutrophils # (Auto) 14.7 H 1.8-7.8 X 10^3 Lymphocytes # (Auto) 1.4 1.0-4.0 X 10^3 Monocytes # (Auto) 1.8 H 0.0-1.0 X 10^3 Eosinophils # (Auto) 0.0 0.0-0.3 10^3/uL Basophils # (Auto) 0.0 0.0-0.1 10^3/uL Neutrophils % (Manual) 84 % Lymphocytes % (Manual) 6 % Monocytes % (Manual) 7 % Band Neutrophils 3 % Blood Morphology Comment NORMAL Sodium Level 139 135-145 MMOL/L Potassium Level 4.2 3.6-5.0 MMOL/L Chloride Level 102 98-107 MMOL/L Carbon Dioxide Level 22 21-32 MMOL/L Anion Gap 15 H 5-14 MMOL/L Blood Urea Nitrogen 57 H 7-18 MG/DL Creatinine 2.75 #H 0.60-1.30 MG/DL Estimat Glomerular Filtration Rate 18 BUN/Creatinine Ratio 21 Glucose Level 115 H 70-105 MG/DL Calcium Level 9.5 8.5-10.1 MG/DL Magnesium Level 2.5 H 1.8-2.4 MG/DL Total Bilirubin 0.2 0.1-1.0 MG/DL Aspartate Amino Transf (AST/SGOT) 24 5-34 U/L Alanine Aminotransferase (ALT/SGPT) 22 0-55 U/L Alkaline Phosphatase 86 40-136 U/L Troponin I < 0.30 <0.30 NG/ML C-Reactive Protein High Sensitivity 0.55 H 0.00-0.50 MG/DL B-Type Natriuretic Peptide 3611.5 H <100.0 PG/ML Total Protein 7.1 6.4-8.2 GM/DL Albumin 3.7 3.2-4.5 GM/DL My Orders Orders - [facility]INO Albuterol Pre-Mix Nebs (Rt) (Proventil (12/14/17 01:07) Albuterol/Ipra Inhalation Soln (Duoneb I (12/14/17 01:08) BNP (12/14/17 01:10) Cbc With Automated Diff (12/14/17 01:10) Comprehensive Metabolic Panel (12/14/17 01:10) Hs C Reactive Protein (12/14/17 01:10) Magnesium (12/14/17 01:10) Troponin I (12/14/17 01:10) Chest 1 View, Ap/Pa Only (12/14/17 01:10) Albuterol Pre-Mix Nebs (Rt) (Proventil (12/14/17 01:10) Albuterol/Ipra Inhalation Soln (Duoneb I (12/14/17 01:15) Svn Small Volume Nebulizer (12/14/17 01:10) Continuous Ekg Monitoring (12/14/17 01:10) Ekg Tracing (12/14/17 01:10) Manual Differential (12/14/17 01:10) Cefepime Injection (Maxipime Injection) (12/14/17 02:00) Blood Culture (12/14/17 02:20) Lactic Acid Analyzer (12/14/17 02:20) Sputum Culture (12/14/17 02:20) Medications Given in ED Current Medications Medications Dose Ordered Sig/Cade Route Start Time Stop Time Status Last Admin Dose Admin Albuterol/ Ipratropium 3 ml ONCE ONCE INH 12/14/17 01:15 12/14/17 01:16 DC 12/14/17 01:08 3 ML Vital Signs/I&O 12/14/17 12/14/17 01:02 01:08 Temp 96.7 Pulse 90 81 Resp 25 20 B/P (MAP) 142/78 (99) Pulse Ox 100 99 O2 Delivery NIV/CPAP O2 Flow Rate 40.00 Capillary Refill : Less Than 3 Seconds Blood Pressure Mean: 99 Progress Note : Time: 01:43 Progress Note Productive cough, chills and white count with a new lung shadow makes a pneumonia probable. She was recently in the hospital certainly go ahead and start cefepime. Her breathing had improved according to EMS after being put on the BiPAP. The patient reports she was feeling much better after being put on the BiPAP as well. Sounds like this is what she is getting set up for outpatient and just did not tolerate being off of it. She has been on steroids for the past several days and this could account for some increase in her white count. Without having a BiPAP or CPAP at home it sounds like sending her home is just going to set her up for the same situation and she will be back so were going to keep her on the BiPAP settings she is on and pursue admission. Echocardiogram by Dr. Levy July 2017: Ejection fraction 10-15% with increased left ventricular cavity. Mild regurgitation and left atrium is dilated. Cardiac catheterization [address] Levy demonstrating nonischemic cardiomyopathy with normal coronary system. 0215: BNP is 3600 which is consistent with her BNP around 2-3000. Her potassium is above 4 and magnesium is high probably owing to her supplemental's. Her BUNs also elevated so she likely is taking her Lasix appropriately despite no drop in potassium. Clinically she does not appear to be in CHF exacerbation either. Her anemia is stable. ECG Initial ECG Impression Date: Dec 14, 2017 Initial ECG Impression Time: 02:00 Initial ECG Rate: 69 Initial ECG Rhythm: Normal Sinus Initial ECG Intervals: Normal Initial ECG Impression: Normal Initial ECG Comparisson: Unchanged Comment History of atrial fibrillation and left ventricular hypertrophy with no acute ST elevation or depression. Diagnostic Imaging Diagonstic Imaging: Xray (1v) Plain Films/CT/US/NM/MRI: chest Comments Since 12/11/17 there is increased opacity over the right lower lobe possibly representing infiltrate consistent with pneumonia versus breast shadow. Reviewed: Reviewed by Me Departure Communication (Admissions) Time/Spoke to Admitting Phy: 02:55 Discussed case lab imaging respiratory difficulty secondary to not having a BiPAP with Dr. Little and she agrees to accept the patient. Impression Primary Impression: Pneumonia Qualified Codes: J18.1 - Lobar pneumonia, unspecified organism Additional Impression: acute COPD exacerbation Disposition: 09 ADMITTED INPATIENT Condition: Improved Admissions Decision to Admit Reason: Admit from ER (General) Decision to Admit/Date: Dec 14, 2017 Time/Decision to Admit Time: 02:12 Departure-Patient Inst. Referrals: TEAGAN VERNON MD (PCP/Family) Primary Care Physician Copy Copies To 1: CEZAR LITTLE TITUS J Dec 14, 2017 01:23
[2017-12-14 01:26] LABS: BASOPHILS % (AUTO) 0 % (0-10); EOSINOPHILS % (AUTO) 0 % (0-10); HEMATOCRIT 30 % (35-52); HEMOGLOBIN 9.6 G/DL (11.5-16.0); LYMPHOCYTES # (AUTO) 1.4 X 10^3 (1.0-4.0); LYMPHOCYTES % (AUTO) 8 % (12-44); MEAN CORPUSCULAR HEMOGLOBIN 31 PG (25-34); MEAN CORPUSCULAR HGB CONC 32 G/DL (32-36); MEAN CORPUSCULAR VOLUME 96 FL (80-99); MEAN PLATELET VOLUME 12.3 FL (7.4-10.4); MONOCYTES # (AUTO) 1.8 X 10^3 (0.0-1.0); MONOCYTES % (AUTO) 10 % (0-12); NEUTROPHILS # (AUTO) 14.7 X 10^3 (1.8-7.8); NEUTROPHILS % (AUTO) 82 % (42-75); PLATELET COUNT 377 10^3/uL (130-400); RED BLOOD COUNT 3.11 10^6/uL (4.35-5.85); RED CELL DISTRIBUTION WIDTH 15.2 % (10.0-14.5); WHITE BLOOD COUNT 17.9 10^3/uL (4.3-11.0)
[2017-12-14 01:55] LABS: ALANINE AMINOTRANSFERASE 22 U/L (0-55); ALBUMIN 3.7 GM/DL (3.2-4.5); ALKALINE PHOSPHATASE 86 U/L (40-136); BILIRUBIN,TOTAL 0.2 MG/DL (0.1-1.0); BUN/CREATININE RATIO 21; CALCIUM 9.5 MG/DL (8.5-10.1); CARBON DIOXIDE 22 MMOL/L (21-32); CHLORIDE 102 MMOL/L (98-107); CREATININE SERUM 2.75 MG/DL (0.60-1.30); GFR ESTIMATED 18; GLUCOSE 115 MG/DL (70-105); MAGNESIUM 2.5 MG/DL (1.8-2.4); POTASSIUM 4.2 MMOL/L (3.6-5.0); SODIUM 139 MMOL/L (135-145); TOTAL PROTEIN 7.1 GM/DL (6.4-8.2)
[2017-12-14] MEDS ORDERED: CEFEPIME INJECTION 2,000 MG in NS (IVPB) 50 ML IV ONE (02:00)
[2017-12-14 02:09] LABS: BAND NEUTROPHILS 3 %; LYMPHOCYTES % (MANUAL) 6 %; MONOCYTES % (MANUAL) 7 %; NEUTROPHILS % (MANUAL) 84 %; RBC MORPH NORMAL
[2017-12-14 04:04] VITALS: BP 167/82
[2017-12-14 04:43] VITALS: BP 167/82
[2017-12-14] MEDS ORDERED: RT-ALBUTEROL/IPRATROPIUM 3 ML (DUONEB) VIAL INH PRN (05:00)
[2017-12-14] MEDS ORDERED: ACETAMINOPHEN 500 MG TAB (TYLENOL) PO PRN (05:15)
[2017-12-14] MEDS ORDERED: ONDANSETRON 4 MG/2 ML (SDV) Z0FRAN IV PRN (05:15)
[2017-12-14] MEDS: predniSONE 20 MG TAB PO SCH (06:11)
[2017-12-14] MEDS: CARVEDILOL 12.5 MG (COREG) TABLET PO SCH ×2 (06:11→16:38)
[2017-12-14] MEDS: LEVOTHYROXINE 25 MCG (LEVOTHROID) TAB PO SCH (06:11)
[2017-12-14] MEDS: PANTOPRAZOLE 40 MG (PROTONIX) TAB PO SCH (06:11)
[2017-12-14] MEDS: ISOSORBIDE MONONITRATE 30 MG (IMDUR) TAB PO SCH ×3 (06:11→15:43)
[2017-12-14 06:47] LABS: BASOPHILS % (AUTO) 0 % (0-10); EOSINOPHILS % (AUTO) 0 % (0-10); HEMATOCRIT 28 % (35-52); HEMOGLOBIN 8.9 G/DL (11.5-16.0); LYMPHOCYTES # (AUTO) 1.9 X 10^3 (1.0-4.0); LYMPHOCYTES % (AUTO) 12 % (12-44); MEAN CORPUSCULAR HEMOGLOBIN 31 PG (25-34); MEAN CORPUSCULAR HGB CONC 32 G/DL (32-36); MEAN CORPUSCULAR VOLUME 98 FL (80-99); MEAN PLATELET VOLUME 12.4 FL (7.4-10.4); MONOCYTES # (AUTO) 1.7 X 10^3 (0.0-1.0); MONOCYTES % (AUTO) 11 % (0-12); NEUTROPHILS # (AUTO) 12.5 X 10^3 (1.8-7.8); NEUTROPHILS % (AUTO) 77 % (42-75); PLATELET COUNT 351 10^3/uL (130-400); RED BLOOD COUNT 2.87 10^6/uL (4.35-5.85); RED CELL DISTRIBUTION WIDTH 15.2 % (10.0-14.5); WHITE BLOOD COUNT 16.2 10^3/uL (4.3-11.0)
[2017-12-14] MEDS: RT-ALBUTEROL/IPRATROPIUM 3 ML (DUONEB) VIAL INH SCH ×5 (06:51→21:47)
--- NOTE | 2017-12-14 06:54 | Diagnostic Imaging Report ---
Indication: Dyspnea, followup heart failure. Discussion: Single portable upright view of the chest was obtained, comparison 12/11/2017. Cardiomegaly is stable. Worsening mixed interstitial and alveolar opacities, most likely worsening pulmonary edema, less likely infection. Left-sided pacemaker stable. No pleural fluid or pneumothorax. No osseous abnormality. Impression: 1. Cardiomegaly with worsening edema. Dictated by: Dictated on workstation # [id number]
[2017-12-14] MEDS ORDERED: FUROSEMIDE 20 MG (LASIX) TAB PO SCH (07:00)
[2017-12-14 07:08] LABS: CALCIUM 9.1 MG/DL (8.5-10.1); CREATININE SERUM 2.52 MG/DL (0.60-1.30); POTASSIUM 3.7 MMOL/L (3.6-5.0)
[2017-12-14 08:00] VITALS: BP 145/86
[2017-12-14] MEDS: AMIODARONE 200 MG (CORDARONE) TAB PO SCH (08:12)
--- NOTE | 2017-12-14 09:57 | Consultation-Cardiology ---
HPI-Cardiology Cardiology Consultation Date of Consultation 12/14/17 Date of Admission Time Seen by Provider: 09:52 Indication: Shortness of breath HPI 57 years old lady with history of congestive heart failure, advanced COPD. Was discharged from the hospital recently for acute exacerbation of COPD. Return to the emergency room for increasing shortness of breath overnight. Required higher dose of oxygen, given IV Lasix and reporting slight improvement, currently feeling a little bit better. Still having dyspnea, denied any pedal edema. Denied any palpitation, syncope or near syncopal episode. [place] tightness around her chest yesterday but today she is feeling better. Denied any fever, had some chills. Home Medications & Allergies Allergies: Coded Allergies: propoxyphene napsylate (Unverified Allergy, Severe, SEVERE NAUSEA AND VOMITING , 04/03/13) meperidine (Unverified Allergy, Unknown, 12/19/14) venom-honey bee (Verified Allergy, Unknown, 09/19/13) lisinopril (Verified Adverse Reaction, Unknown, PT STATES "BOTTOMS OUT" HER BLOOD PRESSURE, 03/12/15) Patient states that it "bottoms out" her blood pressure. She will refuse to take this medication and reports it as an allergy. Home Medication List Reviewed: Yes BBF-Dlyjmu-Xvuawv Hx Patient Social History Marital Status: single Alcohol Use: Denies Use Recreational Drug Use: No Smoking Status: Former Smoker Former smoker/When Quit: Jan 04, 2013 Type Used: Cigarettes 2nd Hand Smoke Exposure: No Recent Foreign Travel: No Recent Infectious Disease Expo: No Recent Hopitalizations: Yes (D/C 12/12/17) Physical Abuse Screen: No Sexual Abuse: No Immunizations Up To Date Tetanus Booster (TDap): Unknown Date of Pneumonia Vaccine: Mar 30, 2013 Date of Influenza Vaccine: Jul 11, 2017 Past Medical History Past medical history as described below Family Medical History Significant Family History: Heart Disease, Cancer, Hypertension Family History: Cancer 19 FATHER (HODGKINS ) 19 MOTHER (BRAIN TUMOR ) Congenital heart disease 19 MOTHER Congestive heart failure 19 MOTHER Family history: Cardiovascular disease 19 MOTHER G8 SISTER G8 SISTER Family history: Hypertension 19 MOTHER G8 SISTER G8 SISTER Heart disease 19 MOTHER G8 SISTER G8 SISTER History of - respiratory disease 19 MOTHER G8 BROTHER G8 SISTER Constitutional: see HPI, malaise, weakness EENTM: see HPI, no symptoms reported Respiratory: No see HPI, No cough; dyspnea on exertion; No hemoptysis; orthopnea; No phlegm; short of breath; No stridor, No wheezing, No other Cardiovascular: see HPI, chest pain; No edema, No Hx of Intervention, No palpitations, No syncope, No vascular heart diseas, No other Gastrointestinal: no symptoms reported, see HPI Genitourinary: no symptoms reported, see HPI Musculoskeletal: see HPI, gout, joint pain Skin: see HPI Psychiatric/Neurological: No Symptoms Reported, See HPI Reviewed Test Results Reviewed Test Results Lab Laboratory Tests Test 12/14/17 01:10 12/14/17 02:37 12/14/17 06:35 Range/Units White Blood Count 17.9 H 16.2 H 4.3-11.0 10^3/uL Red Blood Count 3.11 L 2.87 L 4.35-5.85 10^6/uL Hemoglobin 9.6 L 8.9 L 11.5-16.0 G/DL Hematocrit 30 L 28 L 35-52 % Mean Corpuscular Volume 96 98 80-99 FL Mean Corpuscular Hemoglobin 31 31 25-34 PG Mean Corpuscular Hemoglobin Concent 32 32 32-36 G/DL Red Cell Distribution Width 15.2 H 15.2 H 10.0-14.5 % Platelet Count 377 351 130-400 10^3/uL Mean Platelet Volume 12.3 H 12.4 H 7.4-10.4 FL Neutrophils (%) (Auto) 82 H 77 H 42-75 % Lymphocytes (%) (Auto) 8 L 12 12-44 % Monocytes (%) (Auto) 10 11 0-12 % Eosinophils (%) (Auto) 0 0 0-10 % Basophils (%) (Auto) 0 0 0-10 % Neutrophils # (Auto) 14.7 H 12.5 H 1.8-7.8 X 10^3 Lymphocytes # (Auto) 1.4 1.9 1.0-4.0 X 10^3 Monocytes # (Auto) 1.8 H 1.7 H 0.0-1.0 X 10^3 Eosinophils # (Auto) 0.0 0.0 0.0-0.3 10^3/uL Basophils # (Auto) 0.0 0.0 0.0-0.1 10^3/uL Neutrophils % (Manual) 84 % Lymphocytes % (Manual) 6 % Monocytes % (Manual) 7 % Band Neutrophils 3 % Blood Morphology Comment NORMAL Sodium Level 139 140 135-145 MMOL/L Potassium Level 4.2 3.7 3.6-5.0 MMOL/L Chloride Level 102 103 98-107 MMOL/L Carbon Dioxide Level 22 24 21-32 MMOL/L Anion Gap 15 H 13 5-14 MMOL/L Blood Urea Nitrogen 57 H 56 H 7-18 MG/DL Creatinine 2.75 #H 2.52 H 0.60-1.30 MG/DL Estimat Glomerular Filtration Rate 18 20 BUN/Creatinine Ratio 21 22 Glucose Level 115 H 99 70-105 MG/DL Calcium Level 9.5 9.1 8.5-10.1 MG/DL Magnesium Level 2.5 H 1.8-2.4 MG/DL Total Bilirubin 0.2 0.1-1.0 MG/DL Aspartate Amino Transf (AST/SGOT) 24 5-34 U/L Alanine Aminotransferase (ALT/SGPT) 22 0-55 U/L Alkaline Phosphatase 86 40-136 U/L Troponin I < 0.30 <0.30 NG/ML C-Reactive Protein High Sensitivity 0.55 H 0.00-0.50 MG/DL B-Type Natriuretic Peptide 3611.5 H <100.0 PG/ML Total Protein 7.1 6.4-8.2 GM/DL Albumin 3.7 3.2-4.5 GM/DL Lactic Acid Level 1.16 0.50-2.00 MMOL/L Physical Exam Vital Signs Vital Signs - First Documented 12/14/17 12/14/17 12/14/17 01:02 01:08 04:43 Temp 96.7 Pulse 90 Resp 25 B/P (MAP) 142/78 (99) Pulse Ox 100 O2 Delivery NIV/CPAP O2 Flow Rate 40.00 FiO2 40 Capillary Refill : Less Than 3 Seconds General Appearance: No Apparent Distress, WD/WN Eyes: Bilateral Eye Normal Inspection, Bilateral Eye PERRL, Bilateral Eye EOMI HEENT: PERRL/EOMI, TMs Normal, Normal ENT Inspection, Pharynx Normal Neck: Full Range of Motion, Normal Inspection, Non Tender, Supple, Carotid Bruit Respiratory: Chest Non Tender, Lungs Clear, Normal Breath Sounds, No Accessory Muscle Use, No Respiratory Distress Cardiovascular: Regular Rate, Rhythm, No Edema, No Gallop, No JVD, No Murmur, Normal Peripheral Pulses Gastrointestinal: Normal Bowel Sounds, No Organomegaly, No Pulsatile Mass, Non Tender, Soft Back: Normal Inspection, No CVA Tenderness, No Vertebral Tenderness Extremity: Normal Capillary Refill, Normal Inspection, Normal Range of Motion, Non Tender, No Calf Tenderness, No Pedal Edema Neurologic/Psychiatric: Alert, Oriented x3, No Motor/Sensory Deficits, Normal Mood/Affect Skin: Normal Color, Warm/Dry Lymphatic: No Adenopathy A/P-Cardiology Admission Diagnosis Acute respiratory failure Congestive heart failure Hypertension Acute renal failure Assessment/Plan Acute respiratory failure, acute excess her patient of COPD and decompensated congestive heart failure. Restarted on diuretics. Reporting improvement. Continue to monitor closely. Congestive heart failure, acute on chronic left ventricular systolic dysfunction , nonischemic cardiomyopathy, ejection fraction by echo in July 2017 was 20 percent. BNP is over 3500. Started on IV Lasix. Continue to monitor closely. Multiple hospitalization with exacerbation of COPD and respiratory failure. Was discharged from the hospital 3 days ago, this is her eighth admission this year Acute renal failure on top of chronic renal insufficiency, continue to monitor renal function Acute exacerbation of COPD, acute respiratory failure. On BiPAP History of paroxysmal atrial fibrillation, evaluate EKG and continue to monitor renal function [id number] score of 3, yearly risk of stroke without oral anticoagulation is 3.2 percent. Not receiving anticoagulation, following with Dr. Khoury in [place]. History of cardiac catheterization done in 2012 showing mild coronary artery disease. Has been followed by Dr. Khoury History of ICD implant for primary prevention, followed by Dr. Khoury Hypertension, monitor blood pressure Hyperlipidemia, monitor lipids as outpatient Clinical Quality Measures DVT/VTE Risk/Contraindication: Risk Factor Score Per Nursin RFS Level Per Nursing on Admit: 3=High KIRILL ACOSTA MD Dec 14, 2017 09:57
[2017-12-14] MEDS: FUROSEMIDE 40 MG/4 ML INJ (LASIX) IVP SCH ×2 (10:31→16:38)
--- NOTE | 2017-12-14 11:07 | History & Physicial (CHS) ---
HPI History of Present Illness: This is an interim H&P; Last admission was 12/10/17-12/12/17 for acute on chronic respiratory distress w/ COPD exacerbation. Pt was asleep on the night of current admission, she awoke with a gasp and felt dyspneic and a tight band around her lungs. Pt checked her O2 and it was 88% on her usual 2L so she increase it to 2.5L. She did not improve so she called her Home Health nurse who came and evaluated the patient and increased her oxygen to 3.5L. Pt wanted to come to the ER for further evaluation. Pt noted in Er to have elevated wbc (though she has been on steroids for COPD exacerbation), w/ possible "shadowing" on CXR, pt was admitted from the ER for acute on chronic respiratory failure w/ possible pneumonia. Discharged from [facility] 11/21/17 after 3 week stay (10/30 - 11/21) for COPD and pulmonary rehab after RLL PNA with sepsis 10/25 - 10/30, CPAP, but no vent. Does not use CPAP at home, but is scheduled to see Dr. Dubose to arrange sleep study. Patient with history of multiple hospitalizations this year; she estimates this is her 8th. She was at [facility] for several weeks in August after prolonged illness, she also just completed a several week stay at [facility] as noted above. Chart review shows that in July when hospitalized (multiple times) patient was on 3L O2 continuously. Source: patient Exam Limitations: no limitations Date seen by provider: Dec 14, 2017 Time Seen by Provider: 10:30 Attending Physician Cezar Little Holly R MD Consult Date of Admission Dec 14, 2017 at 01:50 Home Medications Home Medications Reviewed patient Home Medication Reconciliation performed by pharmacy medication reconciliations cell phone repair technician and/or nursing. Patients Allergies have been reviewed. Allergies Coded Allergies: propoxyphene napsylate (Unverified Allergy, Severe, SEVERE NAUSEA AND VOMITING , 04/03/13) meperidine (Unverified Allergy, Unknown, 12/19/14) venom-honey bee (Verified Allergy, Unknown, 09/19/13) lisinopril (Verified Adverse Reaction, Unknown, PT STATES "BOTTOMS OUT" HER BLOOD PRESSURE, 03/12/15) Patient states that it "bottoms out" her blood pressure. She will refuse to take this medication and reports it as an allergy. [id number] Hx Patient Social History Marrital Status: single Alcohol Use: Denies Use Recreational Drug Use: No Smoking Status: Former Smoker Former smoker/When Quit: Jan 04, 2013 Type Used: Cigarettes 2nd Hand Smoke Exposure: No Recent Foreign Travel: No Contact w/other who traveled: No Recent Hopitalizations: Yes (D/C 12/12/17) Recent Infectious Disease Expo: No Physical Abuse Screen: No Sexual Abuse: No Immunizations Up To Date Tetanus Booster (TDap): Unknown Date of Pneumonia Vaccine: Mar 30, 2013 Date of Influenza Vaccine: Jul 11, 2017 Past Medical History COPD with oxygen dependence at home HTN Hypothyroidism HLD Stage IV CKD Macrocytic Anemia Insomnia Paroxysmal Afib Systolic and Diastolic Heart Failure Family Medical History Significant Family History: Heart Disease, Cancer, Hypertension Family History: Cancer 19 FATHER (HODGKINS ) 19 MOTHER (BRAIN TUMOR ) Congenital heart disease 19 MOTHER Congestive heart failure 19 MOTHER Family history: Cardiovascular disease 19 MOTHER G8 SISTER G8 SISTER Family history: Hypertension 19 MOTHER G8 SISTER G8 SISTER Heart disease 19 MOTHER G8 SISTER G8 SISTER History of - respiratory disease 19 MOTHER G8 BROTHER G8 SISTER Review of Systems (CHC) Constitutional: No fever Respiratory: cough, short of breath Cardiovascular: see HPI Gastrointestinal: no symptoms reported Musculoskeletal: no symptoms reported Skin: no symptoms reported Reviewed Test Results Reviewed Test Results Lab Laboratory Tests 12/14/17 01:10: White Blood Count 17.9H, Red Blood Count 3.11L, Hemoglobin 9.6L, Hematocrit 30L , Mean Corpuscular Volume 96, Mean Corpuscular Hemoglobin 31, Mean Corpuscular Hemoglobin Concent 32, Red Cell Distribution Width 15.2H, Platelet Count 377, Mean Platelet Volume 12.3H, Neutrophils (%) (Auto) 82H, Lymphocytes (%) (Auto) 8L, Monocytes (%) (Auto) 10, Eosinophils (%) (Auto) 0, Basophils (%) (Auto) 0, Neutrophils # (Auto) 14.7H, Lymphocytes # (Auto) 1.4, Monocytes # (Auto) 1.8H, Eosinophils # (Auto) 0.0, Basophils # (Auto) 0.0, Neutrophils % (Manual) 84, Lymphocytes % (Manual) 6, Monocytes % (Manual) 7, Band Neutrophils 3, Blood Morphology Comment NORMAL, Sodium Level 139, Potassium Level 4.2, Chloride Level 102, Carbon Dioxide Level 22, Anion Gap 15H, Blood Urea Nitrogen 57H, Creatinine 2.75#H, Estimat Glomerular Filtration Rate 18, BUN/Creatinine Ratio 21, Glucose Level 115H, Calcium Level 9.5, Magnesium Level 2.5H, Total Bilirubin 0.2, Aspartate Amino Transf (AST/SGOT) 24, Alanine Aminotransferase ( ALT/SGPT) 22, Alkaline Phosphatase 86, Troponin I < 0.30, C-Reactive Protein High Sensitivity 0.55H, B-Type Natriuretic Peptide 3611.5H, Total Protein 7.1, Albumin 3.7 12/14/17 02:37: Lactic Acid Level 1.16 12/14/17 06:35: White Blood Count 16.2H, Red Blood Count 2.87L, Hemoglobin 8.9L, Hematocrit 28L , Mean Corpuscular Volume 98, Mean Corpuscular Hemoglobin 31, Mean Corpuscular Hemoglobin Concent 32, Red Cell Distribution Width 15.2H, Platelet Count 351, Mean Platelet Volume 12.4H, Neutrophils (%) (Auto) 77H, Lymphocytes (%) (Auto) 12, Monocytes (%) (Auto) 11, Eosinophils (%) (Auto) 0, Basophils (%) (Auto) 0, Neutrophils # (Auto) 12.5H, Lymphocytes # (Auto) 1.9, Monocytes # (Auto) 1.7H, Eosinophils # (Auto) 0.0, Basophils # (Auto) 0.0, Sodium Level 140, Potassium Level 3.7, Chloride Level 103, Carbon Dioxide Level 24, Anion Gap 13, Blood Urea Nitrogen 56H, Creatinine 2.52H, Estimat Glomerular Filtration Rate 20, BUN/ Creatinine Ratio 22, Glucose Level 99, Calcium Level 9.1 Radiology Date of Exam:12/14/17 CHEST 1 VIEW, AP/PA ONLY Indication: Dyspnea, followup heart failure. Discussion: Single portable upright view of the chest was obtained, comparison 12/11/2017. Cardiomegaly is stable. Worsening mixed interstitial and alveolar opacities, most likely worsening pulmonary edema, less likely infection. Left-sided pacemaker stable. No pleural fluid or pneumothorax. No osseous abnormality. Impression: 1. Cardiomegaly with worsening edema. Physical Exam-([facility]) Physical Exam Vital Signs VS - Last 72 Hours, by Label 12/14/17 12/14/17 12/14/17 12/14/17 01:02 01:08 03:28 03:45 Temp 96.7 Pulse 90 81 73 Resp 25 20 20 B/P (MAP) 142/78 (99) 142/78 Pulse Ox 100 99 98 O2 Delivery NIV/CPAP NIV CPAP NIV Bilevel O2 Flow Rate 40.00 12/14/17 12/14/17 12/14/17 12/14/17 03:50 04:04 04:43 06:57 Temp 96.8 Pulse 87 86 82 71 Resp 27 21 16 B/P (MAP) 167/82 (110) Pulse Ox 97 97 95 96 O2 Delivery NIV Bilevel O2 Flow Rate 40.00 30.00 FiO2 40 12/14/17 12/14/17 12/14/17 12/14/17 07:47 08:00 08:30 10:58 Temp 97.2 Pulse 71 60 Resp 17 17 B/P (MAP) 145/86 (105) Pulse Ox 96 97 95 O2 Delivery NIV Bilevel NIV Bilevel Nasal Cannula O2 Flow Rate 30.00 4.00 30.00 Capillary Refill : Less Than 3 Seconds General Appearance: WD/WN, no apparent distress HEENT: PERRL/EOMI Respiratory: lungs clear, normal breath sounds, accessory muscle use Gastrointestinal: non tender, soft Extremities: no pedal edema Neurologic/Psychiatric: alert, normal mood/affect, oriented x 3 Skin: normal color, warm/dry Assessment/Plan Assessment/Plan Admission Dx 1. Acute on chronic respiratory failure w/ hypoxia; oxygen dependent 2. Acute decompensated CHF 3. COPD 4. CKD 5. Probable BUBBA Admission Status: Inpatient Order (span 2 midnights) Reason for Inpatient Admission: need for IV Lasix; c-pap Assessment & Plan 1. Acute on chronic respiratory failure w/ hypoxia; oxygen dependent - like secondary to exacerbation of CHF - CXR consistent w/ worsening pulmonary edema rather than infection - elevated wbc likely secondary to recent steroid use - started on Cefepime in ER - DC'd 2. Congestive heart failure, acute on chronic left ventricular systolic dysfunction, nonischemic cardiomyopathy, ejection fraction by echo in July 2017 was 20 percent; ICD placement - BNP is over 3500 - Dr. Levy consulted - resumed/increased Lasix; respiratory distress has improved. 3. COPD - stable at this time 4. CKD - Cr. on admission 2.75 -->2.52 5. Probable BUBBA - Scheduled to f/u with Dr. Dubose to arrange sleep study - may be contributing to dyspnea/exacerbation of respiratory failure at home. 6. Paroxysmal A-fib [id number] score of 3, yearly risk of stroke without oral anticoagulation is 3.2 percent. Not receiving anticoagulation, following with Dr. Khoury in [place]. Clinical Quality Measures DVT/VTE Risk/Contraindication: Risk Factor Score Per Nursin RFS Level Per Nursing on Admit: 3=High CEZAR LITTLE DO Dec 14, 2017 11:07
[2017-12-14 12:00] VITALS: BP 117/80
[2017-12-14] MEDS: ENOXAPARIN 30 MG/0.3 ML (LOVENOX) SYR SC SCH (12:05)
[2017-12-14 15:57] VITALS: BP 129/69
[2017-12-14 20:00] VITALS: BP 144/77
[2017-12-14] MEDS: LORazepam 0.5 MG (ATIVAN) TABLET PO SCH (20:54)
[2017-12-14] MEDS: SERTRALINE 100 MG (ZOLOFT) TAB PO SCH (20:55)
[2017-12-15] VITALS: BP 143/82
[2017-12-15] MEDS: RT-ALBUTEROL/IPRATROPIUM 3 ML (DUONEB) VIAL INH SCH ×6 (01:26→22:02)
[2017-12-15 04:00] VITALS: BP 130/72
[2017-12-15] MEDS: FUROSEMIDE 40 MG/4 ML INJ (LASIX) IVP SCH ×2 (05:54→17:09)
[2017-12-15] MEDS: PANTOPRAZOLE 40 MG (PROTONIX) TAB PO SCH (05:54)
[2017-12-15] MEDS: predniSONE 20 MG TAB PO SCH (05:54)
[2017-12-15] MEDS: LEVOTHYROXINE 25 MCG (LEVOTHROID) TAB PO SCH (05:54)
[2017-12-15] MEDS: ISOSORBIDE MONONITRATE 30 MG (IMDUR) TAB PO SCH ×2 (05:54→17:09)
[2017-12-15] MEDS: CARVEDILOL 12.5 MG (COREG) TABLET PO SCH ×2 (05:54→17:09)
[2017-12-15 07:00] LABS: HEMOGLOBIN 9.3 G/DL (11.5-16.0); MEAN PLATELET VOLUME 12.6 FL (7.4-10.4); RED BLOOD COUNT 2.94 10^6/uL (4.35-5.85); RED CELL DISTRIBUTION WIDTH 14.5 % (10.0-14.5); WHITE BLOOD COUNT 12.3 10^3/uL (4.3-11.0)
[2017-12-15] MEDS ORDERED: CEFEPIME INJECTION 2,000 MG in NS (IVPB) 50 ML IV SCH (07:00)
[2017-12-15 07:22] LABS: ALBUMIN 3.1 GM/DL (3.2-4.5); BILIRUBIN,TOTAL 0.3 MG/DL (0.1-1.0); CALCIUM 8.7 MG/DL (8.5-10.1); CREATININE SERUM 2.41 MG/DL (0.60-1.30); POTASSIUM 3.3 MMOL/L (3.6-5.0)
[2017-12-15 08:00] VITALS: BP 118/59
[2017-12-15] MEDS: AMIODARONE 200 MG (CORDARONE) TAB PO SCH (09:00)
[2017-12-15] MEDS: FERROUS SULF 325 MG (IRON) TAB PO SCH (09:03)
--- NOTE | 2017-12-15 09:31 | Cardiology Progress Note ---
Subjective Date Seen by Provider: Dec 15, 2017 Time Seen by Provider: 09:24 Subjective/Events-last exam Patient is in bed, feeling better, reporting improvement, still having some dyspnea Review of Systems General: No Chills, No Night Sweats, No Fatigue, No Malaise, No Appetite, No Other HEENT: No Head Aches, No Visual Changes, No Eye Pain, No Ear Pain, No Dysphasia , No Sinus Congestion, No Post Nasal Drip, No Sore Throat, No Other Pulmonary: Dyspnea; No Cough, No Pleuritic Chest Pain, No Other Cardiovascular: No: Chest Pain, Palpitations, Orthopnea, Paroxysmal Noc. Dyspnea, Edema, Lt Headedness, Other Focused Exam Lactate Level 12/14/17 02:37: Lactic Acid Level 1.16 Objective-Cardiology Exam Last Set of Vital Signs Vital Signs 12/14/17 12/15/17 12/15/17 04:43 06:02 08:00 Temp 97.5 Pulse 60 Resp 18 B/P (MAP) 118/59 (78) Pulse Ox 98 O2 Delivery NIV Bilevel O2 Flow Rate 30.00 FiO2 40 Capillary Refill : Less Than 3 Seconds I&O Intake and Output 12/15/17 00:00 Intake Total 1590 ml Output Total 2400 ml Balance -810 ml Intake Oral 1540 ml IV Total 50 ml Output Urine Total 2400 ml # Voids 1 General: Alert, Oriented X3, Cooperative HEENT: Atraumatic, PERRLA Neck: Supple, No JVD, No Thyromegaly Lungs: Normal Air Movement, Other (crackles) Heart: Regular Rate, Normal S1, Normal S2, No Murmurs Abdomen: Normal Bowel Sounds, Soft, No Tenderness, No Hepatosplenomegaly, No Masses Extremities: No Clubbing, No Cyanosis, Normal Pulses, No Tenderness/Swelling, Other (edema) Skin: No Rashes, No Breakdown, No Significant Lesion Neuro: Normal Gait, Normal Speech, Strength at 5/5 X4 Ext, Normal Tone, Sensation Intact Psych/Mental Status: Mental Status NL, Mood NL Results Lab Laboratory Tests 12/15/17 06:40 A/P-Cardiology Admission Diagnosis Acute respiratory failure Congestive heart failure Hypertension Acute renal failure Assessment/Plan Acute respiratory failure, acute exacerbation of COPD and decompensated congestive heart failure. Responded to diuretics well, feeling better, educated on compliance with medications and limiting salt and fluid intake Congestive heart failure, acute on chronic left ventricular systolic dysfunction , nonischemic cardiomyopathy, ejection fraction by echo in July 2017 was 20 percent. better now Multiple hospitalization with exacerbation of COPD and respiratory failure. Was discharged from the hospital 3 days ago, this is her eighth admission this year Acute renal failure on top of chronic renal insufficiency, continue to monitor renal function Acute exacerbation of COPD, acute respiratory failure. On BiPAP History of paroxysmal atrial fibrillation, evaluate EKG and continue to monitor renal function [id number] score of 3, yearly risk of stroke without oral anticoagulation is 3.2 percent. Not receiving anticoagulation, following with Dr. Khoury in [place]. History of cardiac catheterization done in 2012 showing mild coronary artery disease. Has been followed by Dr. Khoury History of ICD implant for primary prevention, followed by Dr. Khoury Hypertension, monitor blood pressure Hyperlipidemia, monitor lipids as outpatient Ok for discharge from cardiology standpoint Clinical Quality Measures DVT/VTE Risk/Contraindication: Risk Factor Score Per Nursin RFS Level Per Nursing on Admit: 3=High KIRILL ACOSTA MD Dec 15, 2017 09:31
[2017-12-15] MEDS ORDERED: KCL 20 MEQ TAB (K-DUR) PO NR (09:45)
--- NOTE | 2017-12-15 13:08 | Pulmonary Consultation ---
History of Present Illness History of Present Illness Date of Consultation 12/15/17 13:03 Date of Admission Reason for Visit: Shortness of breath Allergies and Home Medications Allergies Coded Allergies: propoxyphene napsylate (Unverified Allergy, Severe, SEVERE NAUSEA AND VOMITING , 04/03/13) meperidine (Unverified Allergy, Unknown, 12/19/14) venom-honey bee (Verified Allergy, Unknown, 09/19/13) lisinopril (Verified Adverse Reaction, Unknown, PT STATES "BOTTOMS OUT" HER BLOOD PRESSURE, 03/12/15) Patient states that it "bottoms out" her blood pressure. She will refuse to take this medication and reports it as an allergy. Home Medications Acetaminophen 500 Mg Tablet, 1,000 MG PO Q6H PRN for PAIN-MILD, (Reported) Amiodarone HCl 200 Mg Tablet, 200 MG PO DAILY, (Reported) Calcium Carbonate 300 Mg Tab.chew, 300 MG PO QID PRN for INDIGESTION, (Reported) Carvedilol 12.5 Mg Tablet, 12.5 MG PO BID, (Reported) Ferrous Sulfate 325 Mg Tablet, 325 MG PO DAILY, (Reported) Furosemide 20 Mg Tablet, 20 MG PO DAILY, (Reported) Ipratropium/Albuterol Sulfate 3 Ml Ampul.neb, 3 ML NEB TID, (Reported) Ipratropium/Albuterol Sulfate 3 Ml Ampul.neb, 3 ML IH Q4H PRN for SHORTNESS OF BREATH, (Reported) Isosorbide Mononitrate 30 Mg Tab.er.24h, 15 MG PO BID, (Reported) TAKES 1/2 (30MG) TABLET Levothyroxine Sodium 25 Mcg Tablet, 25 MCG PO DAILY, (Reported) Loperamide HCl 2 Mg Capsule, 2 MG PO UD PRN for DIARRHEA, (Reported) Lorazepam 0.5 Mg Tablet, 0.5 MG PO HS, (Reported) Magnesium Oxide 400 Mg Tablet, 400 MG PO DAILY, (Reported) Multivitamins-Min/FA/Ginkgo 1 Each Tablet, 1 TAB PO DAILY, (Reported) Omeprazole 40 Mg Capsule.dr, 40 MG PO DAILY, (Reported) Ondansetron 4 Mg Tab.rapdis, 4 MG SL Q6H PRN for NAUSEA/VOMITING-1ST LINE, ( Reported) Oxycodone HCl 5 Mg Tablet, 5 MG PO Q4H PRN for PAIN-SEVERE, (Reported) Prednisone 20 Mg Tab, 40 MG PO DAILY Prescribed by: ALYSSA BURGOS on 12/12/17 1210 Sertraline HCl 100 Mg Tablet, 150 MG PO HS, (Reported) TAKES 1 & 1/2 OF A (100 MG) TABLET Past [id number] Hx Patient Social History Alcohol Use: Denies Use Recreational Drug Use: No Smoking Status: Former Smoker Type Used: Cigarettes Former Smoker, Quit: Jul 09, 2017 2nd Hand Smoke Exposure: No Recent Foreign Travel: No Contact w/Someone Who Travel: No Recent Infectious Disease Expo: No Recent Hopitalizations: Yes (D/C 12/12/17) Immunizations Up To Date Tetanus Booster (TDap): Unknown PED Vaccines UTD: No Date of Pneumonia Vaccine: Mar 30, 2013 Date of Influenza Vaccine: Jul 11, 2017 Seasonal Allergies Seasonal Allergies: Yes Past Medical History Surgeries: Yes (CARDIAC CATH--NO INTERVENTION, DEFIBRILLATOR PLACEMENT ) Cardiac, Section, Defibrillator, Hysterectomy Respiratory: Yes Asthma, Pneumonia, COPD Currently Using CPAP: No Currently Using BIPAP: No Cardiac: Yes (CHF EF 20% non ischemic, left atrial thrombus) Atrial Fibrillation, Cardiomyopathy, High Cholesterol, Hypertension Neurological: Yes Headaches /Migraines : No 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 Disorders: Yes (Hysterectomy) 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 Disorders: Denies 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, 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 Sexually Transmitted Disease: No HIV/AIDS: No Genitourinary: Yes Renal Failure Gastrointestinal: Yes (history of elevated transaminases, HX of elevated liver enzymes) Gastroesophageal Reflux, Hiatal Hernia Musculoskeletal: Yes Arthritis Endocrine: Yes Hypothyroidsim HEENT: Yes Cataract Loss of Vision: Denies Hearing Impairment: Denies Cancer: No Bladder Psychosocial: Yes Sleep Difficulties, Anxiety, Depression Integumentary: No Blood Disorders: No Adverse Reaction/Blood Tranf: No Family Medical History Cancer 19 FATHER (HODGKINS ) 19 MOTHER (BRAIN TUMOR ) Congenital heart disease 19 MOTHER Congestive heart failure 19 MOTHER Family history: Cardiovascular disease 19 MOTHER G8 SISTER G8 SISTER Family history: Hypertension 19 MOTHER G8 SISTER G8 SISTER Heart disease 19 MOTHER G8 SISTER G8 SISTER History of - respiratory disease 19 MOTHER G8 BROTHER G8 SISTER Heart Disease, Cancer, Hypertension Exam Exam Vital Signs Date Time Temp Pulse Resp B/P (MAP) Pulse Ox O2 Delivery O2 Flow Rate FiO2 12/15/17 10:37 97 Nasal Cannula 3.00 12/15/17 08:00 97.5 60 18 118/59 (78) 98 NIV Bilevel 12/15/17 08:00 97 Nasal Cannula 3.00 12/15/17 06:02 72 15 98 30.00 12/15/17 04:00 97.4 86 20 130/72 (91) 96 NIV Bilevel 30.00 12/15/17 03:34 79 11 98 30.00 12/15/17 01:27 80 12 98 30.00 12/15/17 00:00 97.4 68 17 143/82 (102) 98 NIV Bilevel 12/14/17 23:17 78 11 98 30.00 12/14/17 21:47 81 17 98 30.00 12/14/17 21:00 NIV Bilevel 12/14/17 20:00 97.2 76 18 144/77 (99) 94 NIV Bilevel 12/14/17 19:19 61 18 98 30.00 12/14/17 15:57 98.5 84 16 129/69 (89) 96 NIV Bilevel 12/14/17 14:24 98 Nasal Cannula 4.00 I & O 12/15/17 07:00 Intake Total 1840 ml Output Total 2900 ml Balance -1060 ml General Appearance: No Apparent Distress, WD/WN HEENT: PERRL/EOMI, TMs Normal, Normal ENT Inspection, Pharynx Normal Neck: Full Range of Motion, Normal Inspection, Non Tender, Supple, Carotid Bruit Respiratory: Chest Non Tender, Lungs Clear, Normal Breath Sounds, No Accessory Muscle Use, No Respiratory Distress Cardiovascular: Regular Rate, Rhythm, No Edema, No Gallop, No JVD, No Murmur, Normal Peripheral Pulses Capillary Refill: Less Than 3 Seconds Gastrointestinal: non tender, soft Extremity: Normal Capillary Refill, Normal Inspection, Normal Range of Motion, Non Tender, No Calf Tenderness, No Pedal Edema Neurologic/Psychiatric: Alert, Oriented x3, No Motor/Sensory Deficits, Normal Mood/Affect Skin: Normal Color, Warm/Dry Lymphatic: No Adenopathy Results Lab Laboratory Tests 12/14/17 01:10 12/14/17 06:35 12/15/17 06:40 Assessment/Plan Assessment/Plan Acute on Chronic Respiratory Failure with Hypoxia -Oxygen -Check ABG and to evaluate for possible vent to mask. COPDAE -Steroids -SVNS, add Advair CHFAE EF 20% -Lasix -cardiology following CKD hx Afib ROSA ESCOTO DO Dec 15, 2017 13:08
[2017-12-15] MEDS: ENOXAPARIN 30 MG/0.3 ML (LOVENOX) SYR SC SCH (13:43)
[2017-12-15 16:00] VITALS: BP 136/75
[2017-12-15 18:54] LABS: ABG BASE EXCESS 2.2 MMOL/L (-2.5-2.5); ABG OXYGEN SATURATION 99 % (94-100); ABG PCO2 42 MMHG (35-45); ABG PH 7.41 (7.37-7.43); ABG PO2 98 MMHG (79-93); ABG TCO2 27.9 MMOL/L (21.0-31.0)
[2017-12-15] MEDS: RT-ADVAIR HFA 115/21 MCG PER PUFF IH SCH (18:54)
[2017-12-15 18:56] LABS: ALLENS TEST POSITIVE; INSPIRED O2 3 L; PATIENT TEMP 97.3; VENTILATOR NO
[2017-12-15] MEDS: LORazepam 0.5 MG (ATIVAN) TABLET PO SCH (20:42)
[2017-12-15] MEDS: DOCUSATE SODIUM 100 MG (COLACE) CAP PO SCH (20:42)
[2017-12-15] MEDS: SERTRALINE 100 MG (ZOLOFT) TAB PO SCH (20:42)
--- NOTE | 2017-12-15 21:43 | Progress Note (SOAP) ---
Subjective Subjective/Events-last exam Feeling better, afebrile. Stable on 3 lpm supplemental oxygen currently. Review of Systems Date Seen by Provider: Dec 15, 2017 Time Seen by Provider: 11:42 Focused Exam Lactate Level 12/14/17 02:37: Lactic Acid Level 1.16 Objective Exam Last Set of Vital Signs Vital Signs Date Time Temp Pulse Resp B/P (MAP) Pulse Ox O2 Delivery O2 Flow Rate FiO2 12/15/17 18:54 Nasal Cannula 3.00 12/15/17 18:47 97 12/15/17 16:00 97.1 77 20 136/75 (95) 12/14/17 04:43 40 Capillary Refill : Less Than 3 Seconds I&O Intake and Output 12/15/17 00:00 Intake Total 1590 ml Output Total 2400 ml Balance -810 ml Intake Oral 1540 ml IV Total 50 ml Output Urine Total 2400 ml # Voids 1 General: Alert, No Acute Distress Lungs: Clear to Auscultation, Normal Air Movement Heart: Regular Rate, No Murmurs Neuro: Normal Speech Psych/Mental Status: Mental Status NL Results/Procedures Lab Laboratory Tests 12/15/17 06:40: White Blood Count 12.3H, Red Blood Count 2.94L, Hemoglobin 9.3L, Hematocrit 28L , Mean Corpuscular Volume 96, Mean Corpuscular Hemoglobin 32, Mean Corpuscular Hemoglobin Concent 33, Red Cell Distribution Width 14.5, Platelet Count 309, Mean Platelet Volume 12.6H, Sodium Level 138, Potassium Level 3.3L, Chloride Level 98, Carbon Dioxide Level 27, Anion Gap 13, Blood Urea Nitrogen 58H, Creatinine 2.41H, Estimat Glomerular Filtration Rate 21, BUN/Creatinine Ratio 24 , Glucose Level 84, Calcium Level 8.7, Total Bilirubin 0.3, Aspartate Amino Transf (AST/SGOT) 14, Alanine Aminotransferase (ALT/SGPT) 19, Alkaline Phosphatase 74, B-Type Natriuretic Peptide 1942.4H, Total Protein 6.0L, Albumin 3.1L 12/15/17 18:45: Blood Gas Puncture Site RIGHT RADIAL, Blood Gas Patient Temperature 97.3, Arterial Blood pH 7.41, Arterial Blood Partial Pressure CO2 42, Arterial Blood Partial Pressure O2 98H, Arterial Blood HCO3 27, Arterial Blood Total CO2 27.9, Arterial Blood Oxygen Saturation 99, Arterial Blood Base Excess 2.2, Hank Test POSITIVE, Blood Gas Ventilator Setting NO, Blood Gas Inspired Oxygen 3 L Microbiology 12/14/17 Blood Culture - Preliminary, Resulted No growth Radiology Date of Exam:12/14/17 CHEST 1 VIEW, AP/PA ONLY Indication: Dyspnea, followup heart failure. Discussion: Single portable upright view of the chest was obtained, comparison 12/11/2017. Cardiomegaly is stable. Worsening mixed interstitial and alveolar opacities, most likely worsening pulmonary edema, less likely infection. Left-sided pacemaker stable. No pleural fluid or pneumothorax. No osseous abnormality. Impression: 1. Cardiomegaly with worsening edema. Assessment/Plan Assessment/Plan Assessment & Plan 1. Acute on chronic respiratory failure w/ hypoxia; oxygen dependent - like secondary to exacerbation of CHF - CXR consistent w/ worsening pulmonary edema rather than infection - elevated wbc likely secondary to recent steroid use - started on Cefepime in ER - DC'd 2. Congestive heart failure, acute on chronic left ventricular systolic dysfunction, nonischemic cardiomyopathy, ejection fraction by echo in July 2017 was 20 percent; ICD placement - BNP is over 3500 - Dr. Levy consulted - resumed/increased Lasix; respiratory distress has improved. 12/15- on IV lasix BID, is continuing to improve 3. COPD - stable at this time 12/15- question of sleep apnea, feels better with bipap, consulted Dr Thrasher to facilitate outpatient visit and due to frequent readmissions. ABG ordered per Dr. Thrasher to check if she qualifies for vent to mask 4. CKD - Cr. on admission 2.75 -->2.52 5. Probable BUBBA - Scheduled to f/u with Dr. Dubose to arrange sleep study - may be contributing to dyspnea/exacerbation of respiratory failure at home. 6. Paroxysmal A-fib [id number] score of 3, yearly risk of stroke without oral anticoagulation is 3.2 percent. Not receiving anticoagulation, following with Dr. Khoury in [place]. Clinical Quality Measures DVT/VTE Risk/Contraindication: Risk Factor Score Per Nursin RFS Level Per Nursing on Admit: 3=High CALLY YANG MD Dec 15, 2017 9:43 pm
[2017-12-16] VITALS: BP 171/84
[2017-12-16] MEDS ORDERED: NITROGLYCERIN 0.4 MG SL TABS BTL 25'S SL ONE (00:15)
[2017-12-16 00:30] VITALS: BP 140/71
[2017-12-16 01:00] VITALS: BP 156/78
[2017-12-16] MEDS: RT-ALBUTEROL/IPRATROPIUM 3 ML (DUONEB) VIAL INH SCH ×3 (02:24→10:46)
[2017-12-16 06:20] LABS: HEMOGLOBIN 9.6 G/DL (11.5-16.0); MEAN PLATELET VOLUME 12.2 FL (7.4-10.4); RED BLOOD COUNT 3.07 10^6/uL (4.35-5.85); RED CELL DISTRIBUTION WIDTH 14.9 % (10.0-14.5); WHITE BLOOD COUNT 14.2 10^3/uL (4.3-11.0)
[2017-12-16] MEDS: FUROSEMIDE 40 MG/4 ML INJ (LASIX) IVP SCH (06:26)
[2017-12-16] MEDS: LEVOTHYROXINE 25 MCG (LEVOTHROID) TAB PO SCH (06:26)
[2017-12-16] MEDS: predniSONE 20 MG TAB PO SCH (06:27)
[2017-12-16] MEDS: CARVEDILOL 12.5 MG (COREG) TABLET PO SCH (06:27)
[2017-12-16] MEDS: PANTOPRAZOLE 40 MG (PROTONIX) TAB PO SCH (06:27)
[2017-12-16] MEDS: ISOSORBIDE MONONITRATE 30 MG (IMDUR) TAB PO SCH (06:27)
[2017-12-16 06:42] LABS: CREATININE SERUM 2.3 MG/DL (0.60-1.30); MAGNESIUM 2.1 MG/DL (1.8-2.4); POTASSIUM 3.5 MMOL/L (3.6-5.0)
[2017-12-16] MEDS: RT-ADVAIR HFA 115/21 MCG PER PUFF IH SCH (07:08)
--- NOTE | 2017-12-16 07:09 | Pulmonary Progress Note ---
Focused Exam Lactate Level 12/14/17 02:37: Lactic Acid Level 1.16 Exam Exam Vital Signs Date Time Temp Pulse Resp B/P (MAP) Pulse Ox O2 Delivery O2 Flow Rate FiO2 12/16/17 04:38 13 30.00 12/16/17 02:24 70 21 98 30.00 12/16/17 01:00 77 22 156/78 (104) 97 Nasal Cannula 3.00 12/16/17 00:30 79 21 140/71 (94) 99 NIV Bilevel 30.00 12/16/17 00:00 97.1 75 25 171/84 (113) 99 NIV Bilevel 30.00 12/15/17 22:02 83 16 92 30.00 12/15/17 20:20 97 Nasal Cannula 3.00 12/15/17 18:54 Nasal Cannula 3.00 12/15/17 18:47 97 Nasal Cannula 3.00 12/15/17 16:00 97.1 77 20 136/75 (95) 98 NIV Bilevel 12/15/17 14:17 69 19 98 30.00 12/15/17 10:37 97 Nasal Cannula 3.00 12/15/17 08:00 97.5 60 18 118/59 (78) 98 NIV Bilevel 12/15/17 08:00 97 Nasal Cannula 3.00 I & O 12/16/17 07:00 Intake Total 1490 ml Output Total 2800 ml Balance -1310 ml General Appearance: No Apparent Distress, WD/WN HEENT: PERRL/EOMI, TMs Normal, Normal ENT Inspection, Pharynx Normal Neck: Full Range of Motion, Normal Inspection, Non Tender, Supple, Carotid Bruit Respiratory: Chest Non Tender, Lungs Clear, Normal Breath Sounds, No Accessory Muscle Use, No Respiratory Distress Cardiovascular: Regular Rate, Rhythm, No Edema, No Gallop, No JVD, No Murmur, Normal Peripheral Pulses Capillary Refill: Less Than 3 Seconds Gastrointestinal: non tender, soft Extremity: Normal Capillary Refill, Normal Inspection, Normal Range of Motion, Non Tender, No Calf Tenderness, No Pedal Edema Neurologic/Psychiatric: Alert, Oriented x3, No Motor/Sensory Deficits, Normal Mood/Affect Skin: Normal Color, Warm/Dry Lymphatic: No Adenopathy Results Lab Laboratory Tests 12/15/17 06:40 12/16/17 06:09 Assessment/Plan Assessment/Plan Acute on Chronic Respiratory Failure with Hypoxia -Oxygen -ABG - reviewed - pt does not qualify for vent to mask COPDAE -Steroids -SVNS, add Advair CHFAE EF 20% -Lasix -cardiology following Probable BUBBA -Will do PSG as out patient. I will f/u with patient in 1-2wks. CKD hx Afib 232 ROSA ESCOTO DO Dec 16, 2017 07:09
[2017-12-16] MEDS ORDERED: NS IV 500 ML 500 ML IV ONE (07:30)
--- NOTE | 2017-12-16 07:31 | Cardiology Progress Note ---
Subjective Date Seen by Provider: Dec 16, 2017 Time Seen by Provider: 07:29 Subjective/Events-last exam Patient is laying down in bed, feeling better, had some chest pain last night, did not respond to nitroglycerin, improved after throwing up Review of Systems General: No Chills, No Night Sweats, No Fatigue, No Malaise, No Appetite, No Other HEENT: No Head Aches, No Visual Changes, No Eye Pain, No Ear Pain, No Dysphasia , No Sinus Congestion, No Post Nasal Drip, No Sore Throat, No Other Pulmonary: Dyspnea; No Cough, No Pleuritic Chest Pain, No Other Cardiovascular: Chest Pain; No: Palpitations, Orthopnea, Paroxysmal Noc. Dyspnea, Edema, Lt Headedness, Other Gastrointestinal: Nausea, Vomiting Focused Exam Lactate Level 12/14/17 02:37: Lactic Acid Level 1.16 Objective-Cardiology Exam Last Set of Vital Signs Vital Signs 12/14/17 12/16/17 12/16/17 12/16/17 12/16/17 12/16/17 12/16/17 04:43 00:00 01:00 02:24 04:38 07:08 07:16 Temp 97.1 Pulse 70 Resp 13 B/P (MAP) 156/78 (104) Pulse Ox 95 O2 Delivery Nasal Cannula O2 Flow Rate 3.00 FiO2 40 Capillary Refill : Less Than 3 Seconds I&O Intake and Output 12/16/17 00:00 Intake Total 1620 ml Output Total 2900 ml Balance -1280 ml Intake Oral 1620 ml Output Urine Total 2900 ml # Bowel Movements 2 Daily Weight Change No General: Alert, Oriented X3, Cooperative, No Acute Distress HEENT: Atraumatic, PERRLA Neck: Supple, No JVD, No Thyromegaly Lungs: Clear to Auscultation, Normal Air Movement Heart: Regular Rate, Normal S1, Normal S2, No Murmurs Abdomen: Normal Bowel Sounds, Soft, No Tenderness, No Hepatosplenomegaly, No Masses Extremities: No Clubbing, No Cyanosis, Normal Pulses, No Tenderness/Swelling, Other (edema) Skin: No Rashes, No Breakdown, No Significant Lesion Neuro: Normal Speech Psych/Mental Status: Mental Status NL Results Lab Laboratory Tests 12/16/17 06:09 A/P-Cardiology Admission Diagnosis Acute respiratory failure Congestive heart failure Hypertension Acute renal failure Assessment/Plan Status post acute respiratory failure, acute exacerbation of COPD and decompensated congestive heart failure. Responded to diuretics well, feeling better, educated on compliance with medications and limiting salt and fluid intake Chest pain nonspecific etiology, had a cardiac catheterization showing mild coronary artery disease in 2012, has been followed by Dr. Khoury in [place] Congestive heart failure, acute on chronic left ventricular systolic dysfunction , nonischemic cardiomyopathy, ejection fraction by echo in July 2017 was 20 percent. Feeling better now Multiple hospitalization with exacerbation of COPD and respiratory failure. Was discharged from the hospital 3 days ago, this is her eighth admission this year Acute renal failure on top of chronic renal insufficiency, continue to monitor renal function Acute exacerbation of COPD, acute respiratory failure. On BiPAP History of paroxysmal atrial fibrillation, evaluate EKG and continue to monitor renal function [id number] score of 3, yearly risk of stroke without oral anticoagulation is 3.2 percent. Not receiving anticoagulation, following with Dr. Khoury in [place]. History of cardiac catheterization done in 2012 showing mild coronary artery disease. Has been followed by Dr. Khoury History of ICD implant for primary prevention, followed by Dr. Khoury Hypertension, monitor blood pressure Hyperlipidemia, monitor lipids as outpatient Ok for discharge from cardiology standpoint Clinical Quality Measures DVT/VTE Risk/Contraindication: Risk Factor Score Per Nursin RFS Level Per Nursing on Admit: 3=High KIRILL ACOSTA MD Dec 16, 2017 07:31
[2017-12-16] MEDS: POTASSIUM CL 10MEQ/50ML IVPB 50 ML IV SCH ×4 (07:56→12:16)
[2017-12-16] MEDS: AMIODARONE 200 MG (CORDARONE) TAB PO SCH (07:56)
[2017-12-16] MEDS: DOCUSATE SODIUM 100 MG (COLACE) CAP PO SCH (07:57)
[2017-12-16] MEDS: FERROUS SULF 325 MG (IRON) TAB PO SCH (07:57)
[2017-12-16 08:00] VITALS: BP 116/56
[2017-12-16] MEDS ORDERED: PRD20T PO (09:55)
--- NOTE | 2017-12-16 09:57 | Discharge Instructions ---
Discharge [facility] Discharge Medications New, Converted or Re-Newed RX: Transmitted to Pharmacy Continued Medications: Acetaminophen (Tylenol Extra Strength) 500 Mg Tablet 1000 MG PO Q6H PRN for PAIN-MILD, TAB Amiodarone HCl (Amiodarone HCl) 200 Mg Tablet 200 MG PO DAILY, TAB Calcium Carbonate (Tums X-Str) 300 Mg Tab.chew 300 MG PO QID PRN for INDIGESTION, TAB Carvedilol (Carvedilol) 12.5 Mg Tablet 12.5 MG PO BID, TAB Ferrous Sulfate (Iron) 325 Mg Tablet 325 MG PO DAILY, TAB Furosemide (Furosemide) 20 Mg Tablet 20 MG PO DAILY, TAB Ipratropium/Albuterol Sulfate (Iprat-Albut 0.5-3(2.5) mg/3 ml) 3 Ml Ampul.neb 3 ML NEB TID, EACH Ipratropium/Albuterol Sulfate (Iprat-Albut 0.5-3(2.5) mg/3 ml) 3 Ml Ampul.neb 3 ML IH Q4H PRN for SHORTNESS OF BREATH, EACH Isosorbide Mononitrate (Isosorbide Mononitrate ER) 30 Mg Tab.er.24h 15 MG PO BID, TAB TAKES 1/2 (30MG) TABLET Levothyroxine Sodium (Levothyroxine Sodium) 25 Mcg Tablet 25 MCG PO DAILY, TAB Loperamide HCl (Imodium A-D) 2 Mg Capsule 2 MG PO UD PRN for DIARRHEA, CAP Lorazepam (Lorazepam) 0.5 Mg Tablet 0.5 MG PO HS, TAB Magnesium Oxide (Magnesium) 400 Mg Tablet 400 MG PO DAILY, TAB Multivitamins-Min/FA/Ginkgo (One Daily For Women 50+ Adv Tb) 1 Each Tablet 1 TAB PO DAILY, TAB Omeprazole (Omeprazole) 40 Mg Capsule.dr 40 MG PO DAILY, CAP Ondansetron (Zofran Odt) 4 Mg Tab.rapdis 4 MG SL Q6H PRN for NAUSEA/VOMITING-1ST LINE, TAB Oxycodone HCl (Oxycodone HCl) 5 Mg Tablet 5 MG PO Q4H PRN for PAIN-SEVERE, TAB Prednisone (Prednisone) 20 Mg Tab 40 MG PO DAILY for 5 Days, #10 TAB 0 Refills (This prescription has been renewed ) Sertraline HCl (Sertraline HCl) 100 Mg Tablet 150 MG PO HS, TAB TAKES 1 & 1/2 OF A (100 MG) TABLET Patient Instructions Goal/Follow Up Appt: Follow up with Dr. Dubose on December 18 at 1:40 pm. Follow up with Dr. Thrasher next week. Follow up with Cardiology as directed. Return to The Hospital For: Fever, worsening shortness of breath, inability to keep down medications Activity & Diet Discharge Diet: Low Sodium Diet Activity as Tolerated: Yes Copy Copies To 1: TEAGAN DUBOSE MD [facility] Dec 16, 2017 9:57 am
--- NOTE | 2017-12-16 11:50 | Discharge Summary ---
Diagnosis/Chief Complaint Date of Admission Dec 14, 2017 at 1:50 am Date of Discharge December 16, 2017 Admission Diagnosis Admission Diagnosis 1. Acute on chronic respiratory failure w/ hypoxia; oxygen dependent 2. Congestive heart failure, acute on chronic left ventricular systolic dysfunction, nonischemic cardiomyopathy, ejection fraction by echo in July 2017 was 20 percent; ICD placement 3. COPD 4. CKD 5. Probable BUBBA 6. Paroxysmal A-fib Discharge Diagnosis 1. Acute on chronic respiratory failure w/ hypoxia; oxygen dependent - like secondary to exacerbation of CHF - CXR consistent w/ worsening pulmonary edema rather than infection - elevated wbc likely secondary to recent steroid use - started on Cefepime in ER - DC'd 2. Congestive heart failure, acute on chronic left ventricular systolic dysfunction, nonischemic cardiomyopathy, ejection fraction by echo in July 2017 was 20 percent; ICD placement - BNP is over 3500 - Dr. Levy consulted - resumed/increased Lasix; respiratory distress has improved. 12/15- on IV lasix BID, is continuing to improve 12/16 okay for d/c from Cardiology point of view 3. COPD - stable at this time 12/15- question of sleep apnea, feels better with bipap, consulted Dr Thrasher to facilitate outpatient visit and due to frequent readmissions. ABG ordered per Dr. Thrasher to check if she qualifies for vent to mask 12/16 did not qualify for vent to mask, will follow up with Dr. Thrasher outpatient 4. CKD - Cr. on admission 2.75 -->2.52 5. Probable BUBBA - Scheduled to f/u with Dr. Vernon to arrange sleep study - may be contributing to dyspnea/exacerbation of respiratory failure at home. 12/16 needs outpatient sleep study scheduled 6. Paroxysmal A-fib [id number] score of 3, yearly risk of stroke without oral anticoagulation is 3.2 percent. Not receiving anticoagulation, following with Dr. Khoury in [place]. Chief Complaint/HPI Chief Complaint/HPI This is an interim H&P; Last admission was 12/10/17-12/12/17 for acute on chronic respiratory distress w/ COPD exacerbation. Pt was asleep on the night of current admission, she awoke with a gasp and felt dyspneic and a tight band around her lungs. Pt checked her O2 and it was 88% on her usual 2L so she increase it to 2.5L. She did not improve so she called her Home Health nurse who came and evaluated the patient and increased her oxygen to 3.5L. Pt wanted to come to the ER for further evaluation. Pt noted in Er to have elevated wbc (though she has been on steroids for COPD exacerbation), w/ possible "shadowing" on CXR, pt was admitted from the ER for acute on chronic respiratory failure w/ possible pneumonia. Discharged from [facility] 11/21/17 after 3 week stay (10/30 - 11/21) for COPD and pulmonary rehab after RLL PNA with sepsis 10/25 - 10/30, CPAP, but no vent. Does not use CPAP at home, but is scheduled to see Dr. Vernon to arrange sleep study. Patient with history of multiple hospitalizations this year; she estimates this is her 8th. She was at [facility] for several weeks in August after prolonged illness, she also just completed a several week stay at [facility] as noted above. Chart review shows that in July when hospitalized (multiple times) patient was on 3L O2 continuously. Discharge Summary-Simple/Stand Consultations Dr. Mildred Thrasher Discharge Physical Examination Allergies: Coded Allergies: propoxyphene napsylate (Unverified Allergy, Severe, SEVERE NAUSEA AND VOMITING , 04/03/13) meperidine (Unverified Allergy, Unknown, 12/19/14) venom-honey bee (Verified Allergy, Unknown, 09/19/13) lisinopril (Verified Adverse Reaction, Unknown, PT STATES "BOTTOMS OUT" HER BLOOD PRESSURE, 03/12/15) Patient states that it "bottoms out" her blood pressure. She will refuse to take this medication and reports it as an allergy. Vitals & I&Os Vital Sign - Last 12Hours Date Time Temp Pulse Resp B/P (MAP) Pulse Ox O2 Delivery O2 Flow Rate FiO2 12/16/17 10:46 95 Nasal Cannula 3.00 12/16/17 08:00 97.8 69 18 116/56 (76) 12/14/17 04:43 40 Intake and Output 12/16/17 00:00 Intake Total 1270 ml Output Total 2400 ml Balance -1130 ml General Appearance: Alert, No Acute Distress Respiratory: Clear to Auscultation, Normal Air Movement Cardiovascular: Regular Rate, No Murmurs Psych/Mental Status: Mental Status NL Hospital Course See final discharge diagnosis. Labs Laboratory Tests Test 12/15/17 06:40 12/15/17 18:45 12/16/17 06:09 Range/Units White Blood Count 12.3 H 14.2 H 4.3-11.0 10^3/uL Red Blood Count 2.94 L 3.07 L 4.35-5.85 10^6/uL Hemoglobin 9.3 L 9.6 L 11.5-16.0 G/DL Hematocrit 28 L 30 L 35-52 % Mean Corpuscular Volume 96 97 80-99 FL Mean Corpuscular Hemoglobin 32 31 25-34 PG Mean Corpuscular Hemoglobin Concent 33 32 32-36 G/DL Red Cell Distribution Width 14.5 14.9 H 10.0-14.5 % Platelet Count 309 326 130-400 10^3/uL Mean Platelet Volume 12.6 H 12.2 H 7.4-10.4 FL Sodium Level 138 141 135-145 MMOL/L Potassium Level 3.3 L 3.5 L 3.6-5.0 MMOL/L Chloride Level 98 99 98-107 MMOL/L Carbon Dioxide Level 27 27 21-32 MMOL/L Anion Gap 13 15 H 5-14 MMOL/L Blood Urea Nitrogen 58 H 56 H 7-18 MG/DL Creatinine 2.41 H 2.30 H 0.60-1.30 MG/DL Estimat Glomerular Filtration Rate 21 22 BUN/Creatinine Ratio 24 24 Glucose Level 84 96 70-105 MG/DL Calcium Level 8.7 9.0 8.5-10.1 MG/DL Total Bilirubin 0.3 0.1-1.0 MG/DL Aspartate Amino Transf (AST/SGOT) 14 5-34 U/L Alanine Aminotransferase (ALT/SGPT) 19 0-55 U/L Alkaline Phosphatase 74 40-136 U/L B-Type Natriuretic Peptide 1942.4 H <100.0 PG/ML Total Protein 6.0 L 6.4-8.2 GM/DL Albumin 3.1 L 3.2-4.5 GM/DL Blood Gas Puncture Site RIGHT RADIAL Blood Gas Patient Temperature 97.3 Arterial Blood pH 7.41 7.37-7.43 Arterial Blood Partial Pressure CO2 42 35-45 MMHG Arterial Blood Partial Pressure O2 98 H 79-93 MMHG Arterial Blood HCO3 27 23-27 MMOL/L Arterial Blood Total CO2 27.9 21.0-31.0 MMOL/L Arterial Blood Oxygen Saturation 99 94-100 % Arterial Blood Base Excess 2.2 -2.5-2.5 MMOL/L Hank Test POSITIVE Blood Gas Ventilator Setting NO Blood Gas Inspired Oxygen 3 L Magnesium Level 2.1 1.8-2.4 MG/DL Radiology Reviewed Date of Exam:12/14/17 CHEST 1 VIEW, AP/PA ONLY Indication: Dyspnea, followup heart failure. Discussion: Single portable upright view of the chest was obtained, comparison 12/11/2017. Cardiomegaly is stable. Worsening mixed interstitial and alveolar opacities, most likely worsening pulmonary edema, less likely infection. Left-sided pacemaker stable. No pleural fluid or pneumothorax. No osseous abnormality. Impression: 1. Cardiomegaly with worsening edema. Discharge Instructions to patient/family Please see electronic discharge instructions given to patient. Discharge Medications Reviewed and agree with Discharge Medication list on patient's Discharge Instruction sheet Clinical Quality Measures DVT/VTE Risk/Contraindication: Risk Factor Score Per Nursin RFS Level Per Nursing on Admit: 3=High Copy Copies To 1: TEAGAN VERNON MD, BETHANY N MD Dec 16, 2017 11:50 am
[2017-12-16] MEDS: ENOXAPARIN 30 MG/0.3 ML (LOVENOX) SYR SC SCH (12:18)
[2017-12-16 14:30] VITALS: BP 138/88
== END 2017-12-16 14:30 | disposition home health service (06) | DRG 189 ==
LOC: EDUNIT# 01:02 → ER 01:03 → 4TH 01:50
PROVIDERS: ADMIT Family Medicine; ATTEND Family Medicine
DX: J96.21 Acute and chronic respiratory failure with hypoxia (principal); I13.0 Hypertensive heart and chronic kidney disease with heart failure and stage 1 through stage 4 chronic kidney disease, or unspecified chronic kidney disease; I50.23 Acute on chronic systolic (congestive) heart failure; N18.4 Chronic kidney disease, stage 4 (severe); J44.1 Chronic obstructive pulmonary disease with (acute) exacerbation; J44.0 Chronic obstructive pulmonary disease with (acute) lower respiratory infection; N17.9 Acute kidney failure, unspecified; G47.33 Obstructive sleep apnea (adult) (pediatric); I42.8 Other cardiomyopathies; I48.0 Paroxysmal atrial fibrillation; I25.10 Atherosclerotic heart disease of native coronary artery without angina pectoris; D53.9 Nutritional anemia, unspecified; G47.00 Insomnia, unspecified; D72.829 Elevated white blood cell count, unspecified; T38.0X5A Adverse effect of glucocorticoids and synthetic analogues, initial encounter; E78.00 Pure hypercholesterolemia, unspecified; E03.9 Hypothyroidism, unspecified; M19.91 Primary osteoarthritis, unspecified site; K21.9 Gastro-esophageal reflux disease without esophagitis; K44.9 Diaphragmatic hernia without obstruction or gangrene; G43.909 Migraine, unspecified, not intractable, without status migrainosus; Z87.891 Personal history of nicotine dependence; Z95.810 Presence of automatic (implantable) cardiac defibrillator; Z87.01 Personal history of pneumonia (recurrent)
CPT/HCPCS: 36415; 36600; 71045; 80048; 80053; 82805; 83605; 83735; 83880; 84484; 85007; 85025; 85027; 86141; 87040; 93005; 94640; 94660; 94760; 96365

== ENCOUNTER 2017-12-25 09:07 | Inpatient (IN) | payer MEDICARE, MEDICAID ==
[~2017-12-25] VITALS: Ht 144.8 cm; Wt 71.8 kg
[2017-12-25] VITALS (15 sets, daily range): BP systolic 140–158; BP diastolic 90–102
[~2017-12-25 09:07] MED LIST changes: -AMIO200T2 PO; +AMIO200T4 PO; +AMOX-355 PO; -IPRA3AMP IH; -IPRA3AMP NEB; +IPRA3AMP31 IH; +IPRA3AMP31 NEB; +PRED10TA22 PO
[2017-12-25] MEDS ORDERED: ONDANSETRON 4 MG/2 ML (SDV) Z0FRAN ONE (09:37)
[2017-12-25 09:57] LABS: BASOPHILS % (AUTO) 0 % (0-10); EOSINOPHILS % (AUTO) 0 % (0-10); HEMATOCRIT 30 % (35-52); HEMOGLOBIN 9.8 G/DL (11.5-16.0); LYMPHOCYTES # (AUTO) 0.7 X 10^3 (1.0-4.0); LYMPHOCYTES % (AUTO) 3 % (12-44); MEAN CORPUSCULAR HEMOGLOBIN 33 PG (25-34); MEAN CORPUSCULAR HGB CONC 32 G/DL (32-36); MEAN CORPUSCULAR VOLUME 101 FL (80-99); MEAN PLATELET VOLUME 12.3 FL (7.4-10.4); MONOCYTES # (AUTO) 1.1 X 10^3 (0.0-1.0); MONOCYTES % (AUTO) 4 % (0-12); NEUTROPHILS # (AUTO) 25.4 X 10^3 (1.8-7.8); NEUTROPHILS % (AUTO) 93 % (42-75); PLATELET COUNT 184 10^3/uL (130-400); RED BLOOD COUNT 3.01 10^6/uL (4.35-5.85); RED CELL DISTRIBUTION WIDTH 16.2 % (10.0-14.5); WHITE BLOOD COUNT 27.2 10^3/uL (4.3-11.0)
--- NOTE | 2017-12-25 10:04 | Diagnostic Imaging Report ---
INDICATION: Shortness of breath and wheezing. Time of exam 9:43 AM Correlation is made with prior study from 12/24/2017. The heart is enlarged but stable. Cardiac defibrillator remains in place. Congestive changes have developed. Central vascularity is prominent. There has been some mild of the development of bilateral infiltrates. No effusion or pneumothorax is seen. IMPRESSION: Development of congestive changes when compared with examination from one day earlier. Dictated by: Dictated on workstation # [id number]
[2017-12-25 10:24] LABS: ALANINE AMINOTRANSFERASE 231 U/L (0-55); ALBUMIN 3.8 GM/DL (3.2-4.5); ALKALINE PHOSPHATASE 61 U/L (40-136); BILIRUBIN,TOTAL 0.5 MG/DL (0.1-1.0); BUN/CREATININE RATIO 29; CALCIUM 9.7 MG/DL (8.5-10.1); CARBON DIOXIDE 33 MMOL/L (21-32); CHLORIDE 95 MMOL/L (98-107); CREATININE SERUM 2.51 MG/DL (0.60-1.30); GFR ESTIMATED 20; GLUCOSE 174 MG/DL (70-105); SODIUM 144 MMOL/L (135-145); TOTAL PROTEIN 6.5 GM/DL (6.4-8.2)
[2017-12-25 10:40] LABS: ANISOCYTOSIS SLIGHT; BAND NEUTROPHILS 1 %; BASOPHILS % (MANUAL) 0 %; EOSINOPHILS % (MANUAL) 0 %; LYMPHOCYTES % (MANUAL) 4 %; MONOCYTES % (MANUAL) 8 %; NEUTROPHILS % (MANUAL) 87 %; POLYCHROMASIA SLIGHT
[2017-12-25] MEDS ORDERED: FUROSEMIDE 40 MG/4 ML INJ (LASIX) IV STA ×2 (11:30→11:40)
--- NOTE | 2017-12-25 11:40 | ED Respiratory ---
General Chief Complaint: Respiratory Problems Stated Complaint: SOA/N/WHEEZY Nursing Triage Note: PATIENT HERE BY EMS AFTER DC FROM [facility] YESTERDAY. COMPLAINS OF FEELING CLAMMY AND COOL AND NAUSEATED. PATIENT SOB. PER EMS PATIENT WAS AUDIBLY WHEEZING WHEN THEY ARRIVED. RECEIVED DUONEB IN ROUTE. Source: patient Exam Limitations: no limitations History of Present Illness Date Seen by Provider: Dec 25, 2017 Time Seen by Provider: 09:07 Initial Comments Here with report of difficulty with breathing. Arrives cool and clammy. Did have a breathing treatment due to audible wheezes and this seems to help. Initial O2 sat in the low 90 upper 80 area after her CPAP and oxygen at home. This did improve after EMS gave duo neb. Denies fever. Apparently was just discharged from the hospital yesterday for COPD exacerbation. She arrives much worse than when she left yesterday. Timing/Duration: this morning Severity: moderate, severe Prior Episodes/Possible Cause: frequent episodes Modifying Factors: Improves With Albuterol Nebulizer, Improves With Oxygen Associated Symptoms: cough; No fever/chills, No nasal congestion; shortness of breath, wheezing Allergies and Home Medications Allergies Coded Allergies: propoxyphene napsylate (Unverified Allergy, Severe, SEVERE NAUSEA AND VOMITING , 04/03/13) meperidine (Unverified Allergy, Unknown, 12/19/14) venom-honey bee (Verified Allergy, Unknown, 09/19/13) lisinopril (Verified Adverse Reaction, Unknown, PT STATES "BOTTOMS OUT" HER BLOOD PRESSURE, 03/12/15) Patient states that it "bottoms out" her blood pressure. She will refuse to take this medication and reports it as an allergy. Home Medications Acetaminophen 500 Mg Tablet, 1,000 MG PO Q6H PRN for PAIN-MILD, (Reported) Amiodarone HCl 200 Mg Tablet, 200 MG PO DAILY, (Reported) Amoxicillin/Potassium Clav 1 Each Tablet, 1 EACH PO BID Prescribed by: SAM GIBBS on 12/24/17 0956 Calcium Carbonate 300 Mg Tab.chew, 300 MG PO QID PRN for INDIGESTION, (Reported) Carvedilol 12.5 Mg Tablet, 12.5 MG PO BID, (Reported) Ferrous Sulfate 325 Mg Tablet, 325 MG PO DAILY, (Reported) Furosemide 20 Mg Tablet, 20 MG PO DAILY, (Reported) Ipratropium/Albuterol Sulfate 3 Ml Ampul.neb, 3 ML NEB TID, (Reported) Ipratropium/Albuterol Sulfate 3 Ml Ampul.neb, 3 ML IH Q4H PRN for SHORTNESS OF BREATH, (Reported) Isosorbide Mononitrate 30 Mg Tab.er.24h, 15 MG PO BID, (Reported) TAKES 1/2 (30MG) TABLET Levothyroxine Sodium 25 Mcg Tablet, 25 MCG PO DAILY, (Reported) Loperamide HCl 2 Mg Capsule, 2 MG PO UD PRN for DIARRHEA, (Reported) Lorazepam 0.5 Mg Tablet, 0.5 MG PO HS, (Reported) Magnesium Oxide 400 Mg Tablet, 400 MG PO DAILY, (Reported) Multivitamins-Min/FA/Ginkgo 1 Each Tablet, 1 TAB PO DAILY, (Reported) Omeprazole 40 Mg Capsule.dr, 40 MG PO DAILY, (Reported) Ondansetron 4 Mg Tab.rapdis, 4 MG SL Q6H PRN for NAUSEA/VOMITING-1ST LINE, ( Reported) Oxycodone HCl 5 Mg Tablet, 5 MG PO Q4H PRN for PAIN-SEVERE, (Reported) Prednisone 10 Mg Tab.ds.pk, 40 MG PO DAILY 4 pills daily for 2 days then decrease by 1 pill every other day Prescribed by: SAM GIBBS on 12/24/17 0956 Sertraline HCl 100 Mg Tablet, 150 MG PO HS, (Reported) TAKES 1 & 1/2 OF A (100 MG) TABLET Patient Home Medication List Home Medication List Reviewed: Yes Review of Systems Constitutional: see HPI; No chills, No fever; weakness EENTM: no symptoms reported Respiratory: cough, orthopnea, short of breath, wheezing Cardiovascular: No chest pain; edema; No palpitations Genitourinary: no symptoms reported Musculoskeletal: no symptoms reported Psychiatric/Neurological: No Symptoms Reported All Other Systems Reviewed Negative Unless Noted: Yes Past Zobzvvz-Vurocy-Gshiyp Hx Past Med/Social Hx: Reviewed Nursing Past Med/Soc Hx Patient Social History Alcohol Use: Denies Use Recreational Drug Use: Yes (SEE ABOVE) Type Used: Cigarettes Former Smoker, Quit: Jul 09, 2017 2nd Hand Smoke Exposure: No Recent Foreign Travel: No Contact w/Someone Who Travel: No Recent Infectious Disease Expo: No Recent Hopitalizations: Yes (D/C 12/16/17) Immunizations Up To Date Tetanus Booster (TDap): Unknown PED Vaccines UTD: No Date of Pneumonia Vaccine: Mar 30, 2013 Date of Influenza Vaccine: Jul 11, 2017 Seasonal Allergies Seasonal Allergies: Yes Past Medical History Surgeries: Yes (CARDIAC CATH--NO INTERVENTION, DEFIBRILLATOR PLACEMENT ) Cardiac, Section, Defibrillator, Hysterectomy Respiratory: Yes Asthma, Pneumonia, COPD Currently Using CPAP: No Currently Using BIPAP: No Cardiac: Yes (CHF EF 20% non ischemic, left atrial thrombus) Atrial Fibrillation, Cardiomyopathy, High Cholesterol, Hypertension Neurological: Yes Headaches /Migraines 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 Disorders: Yes (Hysterectomy) 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 Disorders: Denies [employer]ER History: Menopausal Sexually Transmitted Disease: No HIV/AIDS: No Genitourinary: Yes Renal Failure Gastrointestinal: Yes (history of elevated transaminases, HX of elevated liver enzymes) Gastroesophageal Reflux, Hiatal Hernia Musculoskeletal: Yes Arthritis Endocrine: Yes Hypothyroidsim HEENT: Yes Cataract Loss of Vision: Denies Hearing Impairment: Denies Cancer: No Bladder Psychosocial: Yes Sleep Difficulties, Anxiety, Depression Integumentary: No Blood Disorders: No Adverse Reaction/Blood Tranf: No Family Medical History Reviewed Nursing Family Hx Cancer 19 FATHER (HODGKINS ) 19 MOTHER (BRAIN TUMOR ) Congenital heart disease 19 MOTHER Congestive heart failure 19 MOTHER Family history: Cardiovascular disease 19 MOTHER G8 SISTER G8 SISTER Family history: Hypertension 19 MOTHER G8 SISTER G8 SISTER Heart disease 19 MOTHER G8 SISTER G8 SISTER History of - respiratory disease 19 MOTHER G8 BROTHER G8 SISTER Heart Disease, Cancer, Hypertension Physical Exam Vital Signs Vital Signs - First Documented 12/25/17 09:18 Temp 97.7 Pulse 99 Resp 22 B/P (MAP) 148/90 (109) Pulse Ox 100 O2 Delivery Nasal Cannula Capillary Refill : Less Than 3 Seconds General Appearance: WD/WN, mild distress (respiratory) HEENT: PERRL/EOMI, pharynx normal Neck: full range of motion, supple Respiratory: no accessory muscle use, respiratory distress, crackles, wheezing , expiration Cardiovascular: no murmur, tachycardia Gastrointestinal: non tender, soft Extremities: non-tender, normal inspection, pedal edema (2+ bilateral) Neurologic/Psychiatric: alert, oriented x 3 Skin: normal color, warm/dry Procedures/Interventions Date of ETT Placement: Aug 20, 2017 Time of ETT Placement: 0629 Progress/Results/Core Measures Suspected Sepsis Recent Fever Within 48 Hours: No Infection Criteria Present: None New/Unexplained Altered Menta: No Sepsis Screen: No Definite Risk SIRS Temperature:97.7 Pulse: 99 Respiratory Rate: 22 Laboratory Tests 12/25/17 09:49: White Blood Count 27.2H Blood Pressure 148 /90 Mean: 109 Laboratory Tests 12/25/17 09:49: Creatinine 2.51H, Platelet Count 184, Total Bilirubin 0.5 Results/Orders Lab Results Laboratory Tests Test 12/25/17 09:49 Range/Units White Blood Count 27.2 H 4.3-11.0 10^3/uL Red Blood Count 3.01 L 4.35-5.85 10^6/uL Hemoglobin 9.8 L 11.5-16.0 G/DL Hematocrit 30 L 35-52 % Mean Corpuscular Volume 101 H 80-99 FL Mean Corpuscular Hemoglobin 33 25-34 PG Mean Corpuscular Hemoglobin Concent 32 32-36 G/DL Red Cell Distribution Width 16.2 H 10.0-14.5 % Platelet Count 184 130-400 10^3/uL Mean Platelet Volume 12.3 H 7.4-10.4 FL Neutrophils (%) (Auto) 93 H 42-75 % Lymphocytes (%) (Auto) 3 L 12-44 % Monocytes (%) (Auto) 4 0-12 % Eosinophils (%) (Auto) 0 0-10 % Basophils (%) (Auto) 0 0-10 % Neutrophils # (Auto) 25.4 H 1.8-7.8 X 10^3 Lymphocytes # (Auto) 0.7 L 1.0-4.0 X 10^3 Monocytes # (Auto) 1.1 H 0.0-1.0 X 10^3 Eosinophils # (Auto) 0.0 0.0-0.3 10^3/uL Basophils # (Auto) 0.0 0.0-0.1 10^3/uL Neutrophils % (Manual) 87 % Lymphocytes % (Manual) 4 % Monocytes % (Manual) 8 % Eosinophils % (Manual) 0 % Basophils % (Manual) 0 % Band Neutrophils 1 % Polychromasia SLIGHT Anisocytosis SLIGHT Macrocytosis SLIGHT Sodium Level 144 135-145 MMOL/L Potassium Level 4.0 3.6-5.0 MMOL/L Chloride Level 95 L 98-107 MMOL/L Carbon Dioxide Level 33 H 21-32 MMOL/L Anion Gap 16 H 5-14 MMOL/L Blood Urea Nitrogen 73 H 7-18 MG/DL Creatinine 2.51 H 0.60-1.30 MG/DL Estimat Glomerular Filtration Rate 20 BUN/Creatinine Ratio 29 Glucose Level 174 H 70-105 MG/DL Calcium Level 9.7 8.5-10.1 MG/DL Total Bilirubin 0.5 0.1-1.0 MG/DL Aspartate Amino Transf (AST/SGOT) 154 H 5-34 U/L Alanine Aminotransferase (ALT/SGPT) 231 H 0-55 U/L Alkaline Phosphatase 61 40-136 U/L Troponin I < 0.30 <0.30 NG/ML B-Type Natriuretic Peptide 3945.5 H <100.0 PG/ML Total Protein 6.5 6.4-8.2 GM/DL Albumin 3.8 3.2-4.5 GM/DL My Orders Orders - JOSHUA CHOI MD Saline Lock/Iv-Start (12/25/17 09:32) Ekg Tracing (12/25/17 09:32) O2 (12/25/17 09:32) Monitor-Rhythm Ecg Trace Only (12/25/17 09:32) Cbc With Automated Diff (12/25/17 09:32) Comprehensive Metabolic Panel (12/25/17 09:32) Troponin I (12/25/17 09:32) Chest 1 View, Ap/Pa Only (12/25/17 09:32) Ondansetron Injection (Zofran Injectio (12/25/17 09:37) Manual Differential (12/25/17 09:49) BNP (12/25/17 10:52) Furosemide Injection (Lasix Injection) (12/25/17 11:30) Furosemide Injection (Lasix Injection) (12/25/17 11:40) Medications Given in ED Current Medications Medications Dose Ordered Sig/Cade Route Start Time Stop Time Status Last Admin Dose Admin Ondansetron HCl 4 mg STK-MED ONCE .ROUTE 12/25/17 09:37 12/25/17 09:39 DC 12/25/17 09:39 4 MG Vital Signs/I&O 12/25/17 12/25/17 09:18 09:20 Temp 97.7 Pulse 99 Resp 22 B/P (MAP) 148/90 (109) Pulse Ox 100 98 O2 Delivery Nasal Cannula Nasal Cannula Capillary Refill : Less Than 3 Seconds Blood Pressure Mean: 109 Progress Note : Progress Note Seen and evaluated. IV, labs, EKG and chest x-ray ordered. DuoNeb seems to help quite a bit. Monitor patient. BNP added after chest x-ray shows good failure. 1135: I did discuss the case with Dr. Gibbs. Patient has significant heart failure findings currently with chest x-ray and BNP is grossly elevated. We will admit the patient. She'll go to the ICU for diuresis. Consult Dr. Elizabeth. 1145: This was done and he is requesting Lasix 100 mg IV now and then will continue that at 80 mg IV twice a day. Findings and concerns discussed with patient and she agrees to admission. Dr. Gibbs has seen the patient in the ER. ECG Initial ECG Impression Date: Dec 25, 2017 Initial ECG Impression Time: 09:42 Initial ECG Rate: 93 Comment Atrial paced with normal axis. No evidence of ST elevation [place]. Complete left bundle branch block. Left ventricular hypertrophy. Unchanged from previous. Interpreted by me. Departure Communication (Admissions) Time/Spoke to Admitting Phy: 12:35 Time/Spoke to Consulting Phy: 12:45 Impression Primary Impression: Acute on chronic systolic CHF (congestive heart failure) Disposition: ADMITTED INPATIENT Condition: Stable Admissions Decision to Admit Reason: Admit from ER (General) Decision to Admit/Date: Dec 25, 2017 Time/Decision to Admit Time: 11:35 Departure-Patient Inst. Referrals: TEAGAN VERNON MD (PCP/Family) Primary Care Physician JOSHUA CHOI MD Dec 25, 2017 11:40
--- NOTE | 2017-12-25 12:29 | History & Physical-Hospitalist ---
History of Present Illness HPI/Chief Complaint CC: Dyspnea HPI: This is a 57yoWF clinic patient of Dr Dubose at [facility] who I just DC'ed from the hospital yesterday after [id number] was arranged per Dr Thrasher who presented to the ER w/dyspnea and nausea. Pt is very pale and appears extremely ill when I saw her prior to workup completion by the ER. Pt was found to have elevated BNP and vascular congestion and overload on the CXR in need of ICU admit. Pt appears to be gravely ill and considering her end stage status of her lungs and CHF and kidney failure I will consult Maged Juárez for Palliative care evaluation since it would not be beneficial to proceed on with intubation if that should be deemed necessary. No other details are obtained due to critical status. Source: patient, RN/MD Exam Limitations: clinical condition Date Seen 12/25/17 Time Seen by Provider: 11:30 Attending Physician Keil Gibbs Holly R MD Referring Physician Date of Admission Dec 25, 2017 at 11:43 Home Medications & Allergies Home Medications Reviewed patient Home Medication Reconciliation performed by pharmacy medication reconciliations administrative support technician and/or nursing. Patients Allergies have been reviewed. Allergies Allergies Coded Allergies propoxyphene napsylate (Unverified Allergy, Severe, SEVERE NAUSEA AND VOMITING , 04/03/13) meperidine (Unverified Allergy, Unknown, 12/19/14) venom-honey bee (Verified Allergy, Unknown, 09/19/13) lisinopril (Verified Adverse Reaction, Unknown, PT STATES "BOTTOMS OUT" HER BLOOD PRESSURE, 03/12/15) Patient states that it "bottoms out" her blood pressure. She will refuse to take this medication and reports it as an allergy. Past Tskpumi-Rvkvia-Bvbafq Hx Past Med/Social Hx: Reviewed Nursing Past Med/Soc Hx, Reviewed and Corrections made Patient Social History Marrital Status: single Employed/Student: unemployed Alcohol Use: Denies Use Recreational Drug Use: Yes (SEE ABOVE) Former Smoker, Quit: Jul 09, 2017 Type Used: Cigarettes 2nd Hand Smoke Exposure: No Recent Foreign Travel: No Contact w/other who traveled: No Recent Hopitalizations: Yes (D/C 12/16/17) Recent Infectious Disease Expo: No Immunizations Up To Date Tetanus Booster (TDap): Unknown Pediatric: No Date of Pneumonia Vaccine: Mar 30, 2013 Date of Influenza Vaccine: Jul 11, 2017 Seasonal Allergies Seasonal Allergies: Yes Past Medical History Surgeries: Cardiac, Section, Defibrillator, Hysterectomy Respiratory: Chronic Bronchitis, COPD, Emphysema, Pneumonia Currently Using CPAP: No Currently Using BIPAP: No Cardiac: Atrial Fibrillation, Cardiomyopathy, High Cholesterol, Hypertension Neurological: Headaches /Migraines 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: Yes (Hysterectomy) Sexually Transmitted Disease: No HIV/AIDS: No 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 Disorders: Denies Menopausal Genitourinary: Renal Failure Gastrointestinal: Gastroesophageal Reflux, Hiatal Hernia Musculoskeletal: Arthritis Endocrine: Hypothyroidsim HEENT: Cataract Loss of Vision: Denies Hearing Impairment: Denies Cancer: Bladder Psychosocial: Sleep Difficulties, Anxiety, Depression History of Blood Disorders: No Adverse Reaction to Blood Hodges: No Family History Reviewed Nursing Family Hx Cancer 19 FATHER (HODGKINS ) 19 MOTHER (BRAIN TUMOR ) Congenital heart disease 19 MOTHER Congestive heart failure 19 MOTHER Family history: Cardiovascular disease 19 MOTHER G8 SISTER G8 SISTER Family history: Hypertension 19 MOTHER G8 SISTER G8 SISTER Heart disease 19 MOTHER G8 SISTER G8 SISTER History of - respiratory disease 19 MOTHER G8 BROTHER G8 SISTER Heart Disease, Cancer, Hypertension Review of Systems Constitutional: see HPI, malaise Respiratory: cough, dyspnea on exertion, short of breath, wheezing Cardiovascular: no symptoms reported Gastrointestinal: loss of appetite, nausea, vomiting Genitourinary: no symptoms reported Musculoskeletal: no symptoms reported Skin: no symptoms reported Psychiatric/Neurological: Anxiety All Other Systems Reviewed Negative Unless Noted: Yes Physical Exam Physical Exam Vital Signs Vital Signs - First Documented 12/25/17 09:18 Temp 97.7 Pulse 99 Resp 22 B/P (MAP) 148/90 (109) Pulse Ox 100 O2 Delivery Nasal Cannula Capillary Refill : Less Than 3 Seconds General Appearance: WD/WN, Chronically ill, Moderate Distress, Other Eyes: Bilateral Eye Normal Inspection, Bilateral Eye PERRL HEENT: PERRL/EOMI, Normal ENT Inspection, Pharynx Normal Neck: Full Range of Motion, Normal Inspection, Non Tender, Supple, Carotid Bruit Respiratory: Chest Non Tender, Accessory Muscle Use, Crackles, Decreased Breath Sounds, Respiratory Distress, Wheezing Cardiovascular: No Edema, No Gallop, No JVD, No Murmur, Normal Peripheral Pulses, Tachycardia Gastrointestinal: Normal Bowel Sounds, No Organomegaly, No Pulsatile Mass, Non Tender, Soft Back: Normal Inspection, No CVA Tenderness, No Vertebral Tenderness Extremity: Normal Capillary Refill, Normal Inspection, Normal Range of Motion, Non Tender, No Calf Tenderness, No Pedal Edema Neurologic/Psychiatric: Alert, No Motor/Sensory Deficits, Normal Mood/Affect, Disoriented Skin: Normal Color, Warm/Dry Lymphatic: No Adenopathy Results Results/Procedures Labs Laboratory Tests 12/25/17 09:49 Patient resulted labs reviewed. Assessment/Plan Admission Diagnosis Assessment: Respiratory failure acute on chronic Plan: ICU Palliative care consult Needs DNR Poor prognosis Admission Status: Inpatient Order (span 2 midnights) Reason for Inpatient Admission: Severe respiratory failure Diagnosis/Problems Diagnosis/Problems (1) Acute on chronic systolic CHF (congestive heart failure) Status: Acute (2) Acute and chronic respiratory failure with hypercapnia Status: Acute (3) Paroxysmal atrial fibrillation Status: Chronic (4) COPD (chronic obstructive pulmonary disease) Status: Chronic (5) HTN (hypertension) Status: Chronic (6) Nonischemic cardiomyopathy Status: Chronic (7) Chronic kidney disease, stage 4, severely decreased GFR Status: Chronic (8) COPD with acute exacerbation Status: Acute KELI GIBBS DO Dec 25, 2017 12:29
--- NOTE | 2017-12-25 12:35 | Consultation-Cardiology ---
HPI-Cardiology Cardiology Consultation: Date of Consultation 12/25/17 Time Seen by Provider: 12:35 Date of Admission 12-25-17 Attending Physician Keli Gibbs DO Admitting Physician Lalita Dubose MD Consulting Physician Karen Elizabeth MD HPI: Chief Complaint: Dyspnea CHF Ms. Kulkarni is a 57 year old female who was discharged from this facility yesterday. She has been re-admitted with worsening SOB. She reports at the time of dismissal yesterday she was feeling better. She reports she was up in her chair with Bi-pap on around 2 a.m. this morning when she became nauseated and vomited. She reports she felt the nausea coming on and removed her Bi-pap mask. She reports after vomiting she felt clammy. She reports SOB increasing throughout the leather tooler. She reports chest pain which is worse with palpation that is worse mid-sternal. It does not radiate. She denies any palpitations, syncope, near syncope or LE edema. She reports her SOB is a little better than when she first came into the ED. Her primary leather tooler is Dr. Khoury at [facility] in [place], [place]. Review of Systems-Cardiology Review of Systems Constitutional: chills, fever Eyes: No vision change Ears/Nose/Throat: No epistaxis, No recent hearing loss Respiratory: As described under HPI Cardiovascular: As described under HPI Gastrointestinal: No diarrhea; nausea, vomiting Genitourinary: No dysuria, No hematuria Musculoskeletal: no symptoms reported Skin: No rash, No ulcerations Psychiatric/Neurological: No seizure, No focal weakness, No syncope Hematologic: No bleeding abnormalities All Other Systems Reviewed Negative Unless Noted: Yes VLP-Oqpipb-Rtvsrd Hx Patient Social History Alcohol Use: Denies Use Recreational Drug Use: Yes (SEE ABOVE) Former smoker/When Quit: Jan 04, 2013 Type Used: Cigarettes 2nd Hand Smoke Exposure: No Recent Foreign Travel: No Recent Infectious Disease Expo: No Hospitalization with Isolation: Denies Immunizations Up To Date Tetanus Booster (TDap): Unknown Date of Pneumonia Vaccine: Mar 30, 2013 Date of Influenza Vaccine: Jul 11, 2017 Past Medical History PMH As described under Assessment. Family Medical History Family Medical History: She reports her mother had CAD. She reports 2 sisters with CAD and HTN. Family History: Cancer 19 FATHER (HODGKINS ) 19 MOTHER (BRAIN TUMOR ) Congenital heart disease 19 MOTHER Congestive heart failure 19 MOTHER Family history: Cardiovascular disease 19 MOTHER G8 SISTER G8 SISTER Family history: Hypertension 19 MOTHER G8 SISTER G8 SISTER Heart disease 19 MOTHER G8 SISTER G8 SISTER History of - respiratory disease 19 MOTHER G8 BROTHER G8 SISTER Allergies and Home Medications Allergies Coded Allergies: propoxyphene napsylate (Unverified Allergy, Severe, SEVERE NAUSEA AND VOMITING , 04/03/13) meperidine (Unverified Allergy, Unknown, 12/19/14) venom-honey bee (Verified Allergy, Unknown, 09/19/13) lisinopril (Verified Adverse Reaction, Unknown, PT STATES "BOTTOMS OUT" HER BLOOD PRESSURE, 03/12/15) Patient states that it "bottoms out" her blood pressure. She will refuse to take this medication and reports it as an allergy. Home Medications Acetaminophen 500 Mg Tablet, 1,000 MG PO Q6H PRN for PAIN-MILD, (Reported) Amiodarone HCl 200 Mg Tablet, 200 MG PO DAILY, (Reported) Amoxicillin/Potassium Clav 1 Each Tablet, 1 EACH PO BID Prescribed by: KELI GIBBS on 12/24/17 0956 Calcium Carbonate 300 Mg Tab.chew, 300 MG PO QID PRN for INDIGESTION, (Reported) Carvedilol 12.5 Mg Tablet, 12.5 MG PO BID, (Reported) Ferrous Sulfate 325 Mg Tablet, 325 MG PO DAILY, (Reported) Furosemide 20 Mg Tablet, 20 MG PO DAILY, (Reported) Ipratropium/Albuterol Sulfate 3 Ml Ampul.neb, 3 ML NEB TID, (Reported) Ipratropium/Albuterol Sulfate 3 Ml Ampul.neb, 3 ML IH Q4H PRN for SHORTNESS OF BREATH, (Reported) Isosorbide Mononitrate 30 Mg Tab.er.24h, 15 MG PO BID, (Reported) TAKES 1/2 (30MG) TABLET Levothyroxine Sodium 25 Mcg Tablet, 25 MCG PO DAILY, (Reported) Loperamide HCl 2 Mg Capsule, 2 MG PO UD PRN for DIARRHEA, (Reported) Lorazepam 0.5 Mg Tablet, 0.5 MG PO HS, (Reported) Magnesium Oxide 400 Mg Tablet, 400 MG PO DAILY, (Reported) Multivitamins-Min/FA/Ginkgo 1 Each Tablet, 1 TAB PO DAILY, (Reported) Omeprazole 40 Mg Capsule.dr, 40 MG PO DAILY, (Reported) Ondansetron 4 Mg Tab.rapdis, 4 MG SL Q6H PRN for NAUSEA/VOMITING-1ST LINE, ( Reported) Oxycodone HCl 5 Mg Tablet, 5 MG PO Q4H PRN for PAIN-SEVERE, (Reported) Prednisone 10 Mg Tab.ds.pk, 40 MG PO DAILY 4 pills daily for 2 days then decrease by 1 pill every other day Prescribed by: KELI GIBBS on 12/24/17 0956 Sertraline HCl 100 Mg Tablet, 150 MG PO HS, (Reported) TAKES 1 & 1/2 OF A (100 MG) TABLET Patient Home Medication List Home Medication List Reviewed: Yes Physical Exam-Cardiology Physical Exam Vital Signs/I&O 12/25/17 12/25/17 12/25/17 12/25/17 20:00 20:00 20:20 21:00 Pulse 95 94 94 Resp 13 16 14 B/P (MAP) 150/96 (114) 152/98 (116) Pulse Ox 95 95 95 O2 Delivery NIV Bilevel NIV Bilevel NIV Bilevel O2 Flow Rate 35.00 35.00 35.00 FiO2 35 12/25/17 12/25/17 12/25/17 12/25/17 22:00 23:00 23:03 23:57 Temp 98.6 Pulse 96 98 94 Resp 11 15 17 B/P (MAP) 158/99 (118) 146/92 (110) Pulse Ox 95 96 98 O2 Delivery NIV Bilevel NIV Bilevel O2 Flow Rate 35.00 35.00 35.00 12/26/17 12/26/17 12/26/17 12/26/17 00:00 00:00 00:03 01:00 Pulse 60 91 95 Resp 16 14 18 B/P (MAP) 132/76 (94) 149/90 (109) Pulse Ox 98 94 97 O2 Delivery NIV Bilevel NIV Bilevel NIV Bilevel O2 Flow Rate 35.00 35.00 35.00 FiO2 35 12/26/17 12/26/17 12/26/17 12/26/17 01:00 02:00 02:19 03:00 Pulse 96 92 86 87 Resp 14 16 16 B/P (MAP) 139/89 (106) 145/94 (111) Pulse Ox 96 96 97 O2 Delivery NIV Bilevel NIV Bilevel O2 Flow Rate 35.00 35.00 35.00 12/26/17 12/26/17 12/26/17 12/26/17 04:00 04:00 04:00 04:36 Temp 98.7 Pulse 86 103 Resp 16 16 B/P (MAP) 146/87 (106) Pulse Ox 97 96 O2 Delivery NIV Bilevel NIV Bilevel O2 Flow Rate 35.00 35.00 FiO2 35 12/26/17 12/26/17 12/26/17 12/26/17 05:00 06:00 06:13 07:35 Temp 98.5 Pulse 86 86 89 Resp 12 13 15 B/P (MAP) 137/91 (106) 146/90 (108) Pulse Ox 97 96 96 O2 Delivery NIV Bilevel NIV Bilevel Nasal Cannula O2 Flow Rate 35.00 35.00 35.00 3.00 12/26/17 00:00 Intake Total 475 ml Output Total 490 ml Balance -15 ml Capillary Refill : Less Than 3 Seconds Constitutional: AAO x 3, well-developed, well-nourished, other (chest wall discomfort with palpation) HEENT: PERRL, hearing is well preserved Neck: No carotid bruit; carotid pulses are 2 + bilaterally Respiratory: No accessory muscle use, No respiratory distress; chest expansion is symmetric, chest is bilaterally symmetric, rhonchi (scattered), other ( diminished lower lobes bilat) Cardiovascular: regular rate-rhythm, S1 and S2, systolic murmur Gastrointestinal: tender (epigastric), soft, round, audible bowel sounds Rectal: deferred Extremities: no lower extremity edema bilateral Neurologic/Psychiatric: grossly intact Skin: pallor; No rash, No ulcerations Data Review Labs Laboratory Tests 12/25/17 09:49: White Blood Count 27.2H, Red Blood Count 3.01L, Hemoglobin 9.8L, Hematocrit 30L , Mean Corpuscular Volume 101H, Mean Corpuscular Hemoglobin 33, Mean Corpuscular Hemoglobin Concent 32, Red Cell Distribution Width 16.2H, Platelet Count 184, Mean Platelet Volume 12.3H, Neutrophils (%) (Auto) 93H, Lymphocytes ( %) (Auto) 3L, Monocytes (%) (Auto) 4, Eosinophils (%) (Auto) 0, Basophils (%) ( Auto) 0, Neutrophils # (Auto) 25.4H, Lymphocytes # (Auto) 0.7L, Monocytes # ( Auto) 1.1H, Eosinophils # (Auto) 0.0, Basophils # (Auto) 0.0, Neutrophils % ( Manual) 87, Lymphocytes % (Manual) 4, Monocytes % (Manual) 8, Eosinophils % ( Manual) 0, Basophils % (Manual) 0, Band Neutrophils 1, Polychromasia SLIGHT, Anisocytosis SLIGHT, Macrocytosis SLIGHT, Sodium Level 144, Potassium Level 4.0 , Chloride Level 95L, Carbon Dioxide Level 33H, Anion Gap 16H, Blood Urea Nitrogen 73H, Creatinine 2.51H, Estimat Glomerular Filtration Rate 20, BUN/ Creatinine Ratio 29, Glucose Level 174H, Calcium Level 9.7, Total Bilirubin 0.5 , Aspartate Amino Transf (AST/SGOT) 154H, Alanine Aminotransferase (ALT/SGPT) 231H, Alkaline Phosphatase 61, Troponin I < 0.30, B-Type Natriuretic Peptide 3945.5H, Total Protein 6.5, Albumin 3.8 12/25/17 14:25: Urine Color YELLOW, Urine Clarity VERY CLOUDYH, Urine pH 5, Urine Specific [place] 1.015L, Urine Protein 3+H, Urine Glucose (UA) NEGATIVE, Urine Ketones NEGATIVE, Urine Nitrite NEGATIVE, Urine Bilirubin NEGATIVE, Urine Urobilinogen NORMAL, Urine Leukocyte Esterase 2+H, Urine RBC (Auto) 3+H, Urine RBC 0-2, Urine WBC 5-10H, Urine Squamous Epithelial Cells 2-5, Urine Crystals PRESENTH, Urine Amorphous Sediment RARE HUYEN URATESH, Urine Bacteria TRACE, Urine Casts NONE, Urine Mucus NEGATIVE, Urine Culture Indicated YES 12/26/17 02:55: White Blood Count 25.3H, Red Blood Count 2.82L, Hemoglobin 9.1L, Hematocrit 29L , Mean Corpuscular Volume 101H, Mean Corpuscular Hemoglobin 32, Mean Corpuscular Hemoglobin Concent 32, Red Cell Distribution Width 16.7H, Platelet Count 163, Mean Platelet Volume 12.9H, Neutrophils (%) (Auto) 90H, Lymphocytes ( %) (Auto) 5L, Monocytes (%) (Auto) 5, Eosinophils (%) (Auto) 0, Basophils (%) ( Auto) 0, Neutrophils # (Auto) 22.8H, Lymphocytes # (Auto) 1.3, Monocytes # (Auto ) 1.2H, Eosinophils # (Auto) 0.0, Basophils # (Auto) 0.0, Sodium Level 140, Potassium Level 4.0, Chloride Level 92L, Carbon Dioxide Level 32, Anion Gap 16H , Blood Urea Nitrogen 77H, Creatinine 2.53H, Estimat Glomerular Filtration Rate 20, BUN/Creatinine Ratio 30, Glucose Level 127H, Calcium Level 9.3, Total Bilirubin 0.6, Aspartate Amino Transf (AST/SGOT) 215H, Alanine Aminotransferase (ALT/SGPT) 387H, Alkaline Phosphatase 62, Total Protein 6.1L, Albumin 3.5, Magnesium Level 2.1 Radiology NAME: WYATT KULKARNI [facility] REC#: [id number] PT STATUS: REG ER : 1960 PHYSICIAN: JOSHUA CHOI MD ADMIT DATE: 12/25/17/ER Draft Date of Exam:12/25/17 CHEST 1 VIEW, AP/PA ONLY INDICATION: Shortness of breath and wheezing. Time of exam 9:43 AM Correlation is made with prior study from 12/24/2017. The heart is enlarged but stable. Cardiac defibrillator remains in place. Congestive changes have developed. Central vascularity is prominent. There has been some mild of the development of bilateral infiltrates. No effusion or pneumothorax is seen. IMPRESSION: Development of congestive changes when compared with examination from one day earlier. Dictated on workstation # [id number] Dict: 12/25/17 0957 Trans: 12/25/17 1003 MAGDA [id number] Interpreted by: RONI HERNANDEZ MD Electronically signed by: A/P-Cardiology Assessment/Admission Diagnosis Acute on chronic respiratory failure, likely multi-factorial - pneumonia, acute on chronic exacerbation of COPD, acute on chronic systolic CHF Epigastric/chest wall tenderness with palpation - likely musculoskeletal Pneumonia with sepsis- management per medical services Acute on chronic systolic CHF - tx with diuretics Elevated liver enzymes - possibly in some part d/t hepatobiliary congestion d/t CHF Nausea/vomiting of undetermined etiology Hiatal hernia Cardiac catheterization showing mild coronary artery disease in 2012 - by Dr. Khoury in [place], [place] Nonischemic cardiomyopathy, LVEF 10-15% per echo of Jul [address] Levy Acute on chronic renal insufficiency - CKD stage III-IV - followed by Dr. Thakkar in [place], [place] Acute exacerbation of COPD - Bi-pap tx History of paroxysmal atrial fibrillation Not felt to be a suitable candidate for OAC d/t previous h/o GI bleed requiring multiple transfusions - she refuses OAC Hypertension Hyperlipidemia - followed by PCP JENNIFER - followed by Dr. Khoury - last interrogation in May 2017 per pt Intolerance to YOKASTA inhibitor and/or ARB due to history of chronic renal failure with an episode of worsening renal function when on these agents H/O tobaccoism - stopped in 2012 History of apical thrombus - was previously on OAC which was stopped d/t GI bleed - followed by Dr. Khoury her primary leather tooler Discussion and Recomendations Complex management with multiple co-morbidities as listed above Acute on chronic systolic CHF - treat with diuretics Acute on chronic exacerbation of COPD Prob pneumonia with sepsis - medical services managing Continue BB Chronic anemia - management per medical services Nausea/vomiting of undetermined etiology - medical service managing Monitor lab closely If she does not respond to diuretic tx and/or has worsening renal function consideration should be given to transfer to tertiary care facility with nephrology services and dialysis capability We would like to thank medical services for this consult Further recs will be based on her hospital course CORTNEY YORK Dec 25, 2017 12:35
[2017-12-25] MEDS ORDERED: CATHETER FLUSH 10 ML SYR IV PRN (13:15)
[2017-12-25] MEDS ORDERED: PANTOPRAZOLE 40 MG/10 ML (PROTONIX) VIAL IV NR (13:30)
[2017-12-25 14:35] LABS: BILIRUBIN,URINE NEGATIVE (NEGATIVE); CLARITY,URINE VERY CLOUDY; COLOR,URINE YELLOW; GLUCOSE, URINE (UA) NEGATIVE (NEGATIVE); KETONES,URINE NEGATIVE (NEGATIVE); LEUKOCYTE ESTERASE ,URINE 2+ (NEGATIVE); NITRITE,URINE NEGATIVE (NEGATIVE); PH,URINE 5 (5-9); PROTEIN,URINE 3+ (NEGATIVE); UROBILINOGEN,URINE NORMAL (NORMAL)
[2017-12-25 14:44] LABS: AMORPHOUS SEDIMENT,UR RARE AMOR URATES /LPF; BACTERIA,URINE TRACE /HPF; RBC,URINE 0-2 /HPF
[2017-12-25] MEDS ORDERED: RT-ALBUTEROL SULF 2.5 MG/3 ML PRE-MIX VIAL INH PRN (15:30)
[2017-12-25] MEDS ORDERED: RT-ALBUTEROL SULF 2.5 MG/3 ML PRE-MIX VIAL INH SCH (15:30)
[2017-12-25] MEDS ORDERED: FUROSEMIDE 40 MG/4 ML INJ (LASIX) IV SCH (17:00)
[2017-12-25] MEDS ORDERED: FUROSEMIDE 40 MG/4 ML INJ (LASIX) IVP NR (18:00)
[2017-12-25] MEDS ORDERED: RT-LEVALBUTEROL (XOPENEX) 1.25 MG/3 ML NEB NON-FORMULARY ONE (18:27)
[2017-12-25] MEDS ORDERED: RT-LEVALBUTEROL (XOPENEX) 1.25 MG/3 ML NEB NON-FORMULARY INH PRN (18:45)
--- NOTE | 2017-12-25 19:04 | Consultation-Cardiology ---
HPI-Cardiology Cardiology Consultation: Date of Consultation 12/25/17 Time Seen by Provider: 17:50 Date of Admission Attending Physician Keli Gibbs DO Admitting Physician Lalita Dubose MD Consulting Physician SUE CHARLES MD, MA, FACP, FACC, FSCAI, CCDS HPI: Chief Complaint: Dyspnea CHF Ms. Butler is a 57 year old female who was discharged from this facility yesterday. She has been re-admitted with worsening SOB. She reports at the time of dismissal yesterday she was feeling better. She reports she was up in her chair with Bi-pap on around 2 a.m. this morning when she became nauseated and vomited. She reports she felt the nausea coming on and removed her Bi-pap mask. She reports after vomiting she felt clammy. 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 She reports chest pain which is worse with palpation that is worse mid-sternal. It does not radiate. She denies any palpitations, syncope, near syncope or LE edema. She reports her SOB is a little better than when she first came into the ED. Her primary salon coordinator is Dr. Khoury at [facility] in [place], [place]. Review of Systems-Cardiology Review of Systems Constitutional: chills, fever Eyes: No vision change Ears/Nose/Throat: No epistaxis, No recent hearing loss Respiratory: As described under HPI Cardiovascular: As described under HPI Gastrointestinal: No diarrhea; nausea, vomiting Genitourinary: No dysuria, No hematuria Musculoskeletal: no symptoms reported Skin: No rash, No ulcerations Psychiatric/Neurological: No seizure, No focal weakness, No syncope Hematologic: No bleeding abnormalities All Other Systems Reviewed Negative Unless Noted: Yes TLE-Klyhqi-Odvmsi Hx Patient Social History Marrital Status: single Employed/Student: unemployed Alcohol Use: Denies Use Recreational Drug Use: No (Hx of Marijuana use) Former smoker/When Quit: Jan 04, 2013 Type Used: Cigarettes 2nd Hand Smoke Exposure: No Recent Foreign Travel: No Recent Infectious Disease Expo: No Hospitalization with Isolation: Denies Physical Abuse Screen: No Sexual Abuse: No Immunizations Up To Date Tetanus Booster (TDap): Unknown Date of Pneumonia Vaccine: Mar 30, 2013 Date of Influenza Vaccine: Jul 11, 2017 Past Medical History PMH As described under Assessment. Family Medical History Family Medical History: She reports her mother had CAD. She reports 2 sisters with CAD and HTN. Family History: Cancer 19 FATHER (HODGKINS ) 19 MOTHER (BRAIN TUMOR ) Congenital heart disease 19 MOTHER Congestive heart failure 19 MOTHER Family history: Cardiovascular disease 19 MOTHER G8 SISTER G8 SISTER Family history: Hypertension 19 MOTHER G8 SISTER G8 SISTER Heart disease 19 MOTHER G8 SISTER G8 SISTER History of - respiratory disease 19 MOTHER G8 BROTHER G8 SISTER Allergies and Home Medications Allergies Coded Allergies: propoxyphene napsylate (Unverified Allergy, Severe, SEVERE NAUSEA AND VOMITING , 04/03/13) meperidine (Unverified Allergy, Unknown, 12/19/14) venom-honey bee (Verified Allergy, Unknown, 09/19/13) lisinopril (Verified Adverse Reaction, Unknown, PT STATES "BOTTOMS OUT" HER BLOOD PRESSURE, 03/12/15) Patient states that it "bottoms out" her blood pressure. She will refuse to take this medication and reports it as an allergy. Home Medications Acetaminophen 500 Mg Tablet, 1,000 MG PO Q6H PRN for PAIN-MILD, (Reported) Amiodarone HCl 200 Mg Tablet, 200 MG PO DAILY, (Reported) Amoxicillin/Potassium Clav 1 Each Tablet, 1 EACH PO BID Prescribed by: KELI GIBBS on 12/24/17 0956 Calcium Carbonate 300 Mg Tab.chew, 300 MG PO QID PRN for INDIGESTION, (Reported) Carvedilol 12.5 Mg Tablet, 12.5 MG PO BID, (Reported) Ferrous Sulfate 325 Mg Tablet, 325 MG PO DAILY, (Reported) Furosemide 20 Mg Tablet, 20 MG PO DAILY, (Reported) Ipratropium/Albuterol Sulfate 3 Ml Ampul.neb, 3 ML NEB TID, (Reported) Ipratropium/Albuterol Sulfate 3 Ml Ampul.neb, 3 ML IH Q4H PRN for SHORTNESS OF BREATH, (Reported) Isosorbide Mononitrate 30 Mg Tab.er.24h, 15 MG PO BID, (Reported) TAKES 1/2 (30MG) TABLET Levothyroxine Sodium 25 Mcg Tablet, 25 MCG PO DAILY, (Reported) Loperamide HCl 2 Mg Capsule, 2 MG PO UD PRN for DIARRHEA, (Reported) Lorazepam 0.5 Mg Tablet, 0.5 MG PO HS, (Reported) Magnesium Oxide 400 Mg Tablet, 400 MG PO DAILY, (Reported) Multivitamins-Min/FA/Ginkgo 1 Each Tablet, 1 TAB PO DAILY, (Reported) Omeprazole 40 Mg Capsule.dr, 40 MG PO DAILY, (Reported) Ondansetron 4 Mg Tab.rapdis, 4 MG SL Q6H PRN for NAUSEA/VOMITING-1ST LINE, ( Reported) Oxycodone HCl 5 Mg Tablet, 5 MG PO Q4H PRN for PAIN-SEVERE, (Reported) Prednisone 10 Mg Tab.ds.pk, 40 MG PO DAILY 4 pills daily for 2 days then decrease by 1 pill every other day Prescribed by: KELI GIBBS on 12/24/17 0956 Sertraline HCl 100 Mg Tablet, 150 MG PO HS, (Reported) TAKES 1 & 1/2 OF A (100 MG) TABLET Patient Home Medication List Home Medication List Reviewed: Yes Physical Exam-Cardiology Physical Exam Vital Signs/I&O 12/25/17 12/25/17 12/25/17 12/25/17 09:18 09:20 12:19 12:45 Temp 97.7 97.7 98.1 Pulse 99 99 100 Resp 22 22 12 B/P (MAP) 148/90 (109) 148/90 (109) 156/102 (120) Pulse Ox 100 98 98 100 O2 Delivery Nasal Cannula Nasal Cannula Nasal Cannula Nasal Cannula O2 Flow Rate 3.00 12/25/17 12/25/17 12/25/17 12/25/17 13:00 13:08 14:00 14:49 Pulse 102 97 103 Resp 13 15 B/P (MAP) 156/96 (116) 148/90 (109) Pulse Ox 97 95 97 O2 Delivery Nasal Cannula Nasal Cannula Nasal Cannula O2 Flow Rate 3.00 3.00 3.00 12/25/17 12/25/17 12/25/17 12/25/17 15:00 16:00 16:05 16:15 Pulse 101 104 Resp 15 15 B/P (MAP) 140/97 (111) 148/92 (110) Pulse Ox 96 95 O2 Delivery Nasal Cannula Nasal Cannula Nasal Cannula Nasal Cannula O2 Flow Rate 3.00 3.00 3.00 3.00 12/25/17 12/25/17 12/25/17 17:00 18:00 18:28 Pulse 101 107 105 Resp 13 19 17 B/P (MAP) 147/97 (114) 149/92 (111) Pulse Ox 96 93 95 O2 Delivery Nasal Cannula Nasal Cannula O2 Flow Rate 3.00 3.00 30.00 Capillary Refill : Less Than 3 Seconds Constitutional: AAO x 3, well-developed, well-nourished, other (chest wall discomfort with palpation) HEENT: PERRL, hearing is well preserved Neck: No carotid bruit; carotid pulses are 2 + bilaterally Respiratory: No accessory muscle use, No respiratory distress; chest expansion is symmetric, chest is bilaterally symmetric, rhonchi (scattered), other ( diminished lower lobes bilat) Cardiovascular: regular rate-rhythm, S1 and S2, systolic murmur Gastrointestinal: tender (epigastric), soft, round, audible bowel sounds Rectal: deferred Extremities: no lower extremity edema bilateral Neurologic/Psychiatric: grossly intact Skin: pallor; No rash, No ulcerations Data Review Labs Laboratory Tests 12/25/17 09:49: White Blood Count 27.2H, Red Blood Count 3.01L, Hemoglobin 9.8L, Hematocrit 30L , Mean Corpuscular Volume 101H, Mean Corpuscular Hemoglobin 33, Mean Corpuscular Hemoglobin Concent 32, Red Cell Distribution Width 16.2H, Platelet Count 184, Mean Platelet Volume 12.3H, Neutrophils (%) (Auto) 93H, Lymphocytes ( %) (Auto) 3L, Monocytes (%) (Auto) 4, Eosinophils (%) (Auto) 0, Basophils (%) ( Auto) 0, Neutrophils # (Auto) 25.4H, Lymphocytes # (Auto) 0.7L, Monocytes # ( Auto) 1.1H, Eosinophils # (Auto) 0.0, Basophils # (Auto) 0.0, Neutrophils % ( Manual) 87, Lymphocytes % (Manual) 4, Monocytes % (Manual) 8, Eosinophils % ( Manual) 0, Basophils % (Manual) 0, Band Neutrophils 1, Polychromasia SLIGHT, Anisocytosis SLIGHT, Macrocytosis SLIGHT, Sodium Level 144, Potassium Level 4.0 , Chloride Level 95L, Carbon Dioxide Level 33H, Anion Gap 16H, Blood Urea Nitrogen 73H, Creatinine 2.51H, Estimat Glomerular Filtration Rate 20, BUN/ Creatinine Ratio 29, Glucose Level 174H, Calcium Level 9.7, Total Bilirubin 0.5 , Aspartate Amino Transf (AST/SGOT) 154H, Alanine Aminotransferase (ALT/SGPT) 231H, Alkaline Phosphatase 61, Troponin I < 0.30, B-Type Natriuretic Peptide 3945.5H, Total Protein 6.5, Albumin 3.8 12/25/17 14:25: Urine Color YELLOW, Urine Clarity VERY CLOUDYH, Urine pH 5, Urine Specific [place] 1.015L, Urine Protein 3+H, Urine Glucose (UA) NEGATIVE, Urine Ketones NEGATIVE, Urine Nitrite NEGATIVE, Urine Bilirubin NEGATIVE, Urine Urobilinogen NORMAL, Urine Leukocyte Esterase 2+H, Urine RBC (Auto) 3+H, Urine RBC 0-2, Urine WBC 5-10H, Urine Squamous Epithelial Cells 2-5, Urine Crystals PRESENTH, Urine Amorphous Sediment RARE HUYEN URATESH, Urine Bacteria TRACE, Urine Casts NONE, Urine Mucus NEGATIVE, Urine Culture Indicated YES A/P-Cardiology Assessment/Admission Diagnosis Acute on chronic respiratory failure, likely multi-factorial - pneumonia, acute on chronic exacerbation of COPD, acute on chronic systolic CHF Epigastric/chest wall tenderness with palpation - likely musculoskeletal Pneumonia with sepsis- management per medical services Acute on chronic systolic CHF - tx with diuretics Elevated liver enzymes - possibly in some part d/t hepatobiliary congestion d/t CHF Nausea/vomiting of undetermined etiology Hiatal hernia Cardiac catheterization showing mild coronary artery disease in 2012 - [address] Khoury in [place], [place] Nonischemic cardiomyopathy, LVEF 10-15% per echo of Jul [address] Levy Acute on chronic renal insufficiency - CKD stage III-IV - followed by Dr. Thakkar in [place], [place] Acute exacerbation of COPD - Bi-pap tx History of paroxysmal atrial fibrillation Not felt to be a suitable candidate for OAC d/t previous h/o GI bleed requiring multiple transfusions - she refuses OAC Hypertension Hyperlipidemia - followed by PCP [facility] - followed by Dr. 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 Use high-dose diuretics and monitor labs. If she does not respond to diuretic tx and/or has worsening renal function consideration should be given to transfer to tertiary care facility with nephrology services and dialysis capability * Prob pneumonia with sepsis - medical services managing * Continue BB * Chronic anemia - management per medical services * Nausea/vomiting of undetermined etiology - medical service managing * Further recs will be based on her hospital course Clinical Quality Measures DVT/VTE Risk/Contraindication: Risk Factor Score Per Nursin RFS Level Per Nursing on Admit: 3=High SUE CHARLES MD FACP FAC CCDS Dec 25, 2017 19:04
[2017-12-25] MEDS: CARVEDILOL 12.5 MG (COREG) TABLET PO SCH (21:22)
[2017-12-25] MEDS: ISOSORBIDE MONONITRATE 30 MG (IMDUR) TAB PO SCH (21:23)
[2017-12-25] MEDS: RT-LEVALBUTEROL (XOPENEX) 1.25 MG/3 ML NEB NON-FORMULARY INH SCH (23:05)
[2017-12-26] VITALS (18 sets, daily range): BP systolic 119–149; BP diastolic 7–94
[2017-12-26] MEDS ORDERED: CALCIUM CARBONATE 500 MG (TUMS) TAB.CHEW PO PRN (01:30)
[2017-12-26] MEDS: RT-LEVALBUTEROL (XOPENEX) 1.25 MG/3 ML NEB NON-FORMULARY INH SCH ×4 (02:19→14:15)
[2017-12-26 03:15] LABS: BASOPHILS % (AUTO) 0 % (0-10); EOSINOPHILS % (AUTO) 0 % (0-10); HEMATOCRIT 29 % (35-52); HEMOGLOBIN 9.1 G/DL (11.5-16.0); LYMPHOCYTES # (AUTO) 1.3 X 10^3 (1.0-4.0); LYMPHOCYTES % (AUTO) 5 % (12-44); MEAN CORPUSCULAR HEMOGLOBIN 32 PG (25-34); MEAN CORPUSCULAR HGB CONC 32 G/DL (32-36); MEAN CORPUSCULAR VOLUME 101 FL (80-99); MEAN PLATELET VOLUME 12.9 FL (7.4-10.4); MONOCYTES # (AUTO) 1.2 X 10^3 (0.0-1.0); MONOCYTES % (AUTO) 5 % (0-12); NEUTROPHILS # (AUTO) 22.8 X 10^3 (1.8-7.8); NEUTROPHILS % (AUTO) 90 % (42-75); PLATELET COUNT 163 10^3/uL (130-400); RED BLOOD COUNT 2.82 10^6/uL (4.35-5.85); RED CELL DISTRIBUTION WIDTH 16.7 % (10.0-14.5); WHITE BLOOD COUNT 25.3 10^3/uL (4.3-11.0)
[2017-12-26 03:40] LABS: ALBUMIN 3.5 GM/DL (3.2-4.5); BILIRUBIN,TOTAL 0.6 MG/DL (0.1-1.0); CALCIUM 9.3 MG/DL (8.5-10.1); CREATININE SERUM 2.53 MG/DL (0.60-1.30); MAGNESIUM 2.1 MG/DL (1.8-2.4); TOTAL PROTEIN 6.1 GM/DL (6.4-8.2)
[2017-12-26] MEDS ORDERED: FUROSEMIDE 40 MG/4 ML INJ (LASIX) IVP SCH (05:00)
--- NOTE | 2017-12-26 05:43 | Pulmonary Consultation ---
History of Present Illness History of Present Illness Date of Consultation 12/26/17 05:31 Time Seen by Provider: 05:31 Date of Admission History of Present Illness 57yo patient with hx of multiple hospitalizations and multiple comorbidities just discharged from hospital 2days ago after getting a vent to mask set up presents to ED secondary to progressive respiratory distress. PT also had a vomiting episode while on vent to mask. CXR in ED shows increased vascular congestion. Hospice is also consulted for education. Allergies and Home Medications Allergies Coded Allergies: propoxyphene napsylate (Unverified Allergy, Severe, SEVERE NAUSEA AND VOMITING , 04/03/13) meperidine (Unverified Allergy, Unknown, 12/19/14) venom-honey bee (Verified Allergy, Unknown, 09/19/13) lisinopril (Verified Adverse Reaction, Unknown, PT STATES "BOTTOMS OUT" HER BLOOD PRESSURE, 03/12/15) Patient states that it "bottoms out" her blood pressure. She will refuse to take this medication and reports it as an allergy. Home Medications Acetaminophen 500 Mg Tablet, 1,000 MG PO Q6H PRN for PAIN-MILD, (Reported) Amiodarone HCl 200 Mg Tablet, 200 MG PO DAILY, (Reported) Amoxicillin/Potassium Clav 1 Each Tablet, 1 EACH PO BID Prescribed by: SAM GIBBS on 12/24/17 0956 Calcium Carbonate 300 Mg Tab.chew, 300 MG PO QID PRN for INDIGESTION, (Reported) Carvedilol 12.5 Mg Tablet, 12.5 MG PO BID, (Reported) Ferrous Sulfate 325 Mg Tablet, 325 MG PO DAILY, (Reported) Furosemide 20 Mg Tablet, 20 MG PO DAILY, (Reported) Ipratropium/Albuterol Sulfate 3 Ml Ampul.neb, 3 ML NEB TID, (Reported) Ipratropium/Albuterol Sulfate 3 Ml Ampul.neb, 3 ML IH Q4H PRN for SHORTNESS OF BREATH, (Reported) Isosorbide Mononitrate 30 Mg Tab.er.24h, 15 MG PO BID, (Reported) TAKES 1/2 (30MG) TABLET Levothyroxine Sodium 25 Mcg Tablet, 25 MCG PO DAILY, (Reported) Loperamide HCl 2 Mg Capsule, 2 MG PO UD PRN for DIARRHEA, (Reported) Lorazepam 0.5 Mg Tablet, 0.5 MG PO HS, (Reported) Magnesium Oxide 400 Mg Tablet, 400 MG PO DAILY, (Reported) Multivitamins-Min/FA/Ginkgo 1 Each Tablet, 1 TAB PO DAILY, (Reported) Omeprazole 40 Mg Capsule.dr, 40 MG PO DAILY, (Reported) Ondansetron 4 Mg Tab.rapdis, 4 MG SL Q6H PRN for NAUSEA/VOMITING-1ST LINE, ( Reported) Oxycodone HCl 5 Mg Tablet, 5 MG PO Q4H PRN for PAIN-SEVERE, (Reported) Prednisone 10 Mg Tab.ds.pk, 40 MG PO DAILY 4 pills daily for 2 days then decrease by 1 pill every other day Prescribed by: SAM GIBBS on 12/24/17 0956 Sertraline HCl 100 Mg Tablet, 150 MG PO HS, (Reported) TAKES 1 & 1/2 OF A (100 MG) TABLET Past Mhmvxzy-Kdxtht-Gvpjvu Hx Past Med/Social Hx: Reviewed Nursing Past Med/Soc Hx, Reviewed and Corrections made Patient Social History Alcohol Use: Denies Use Recreational Drug Use: No (Hx of Marijuana use) Type Used: Cigarettes Former Smoker, Quit: Jul 09, 2017 2nd Hand Smoke Exposure: No Recent Foreign Travel: No Contact w/Someone Who Travel: No Recent Infectious Disease Expo: No Recent Hopitalizations: Yes (D/C 12/24/17) Immunizations Up To Date Tetanus Booster (TDap): Unknown PED Vaccines UTD: No Date of Pneumonia Vaccine: Mar 30, 2013 Date of Influenza Vaccine: Jul 11, 2017 Seasonal Allergies Seasonal Allergies: Yes Past Medical History Surgeries: Yes (CARDIAC CATH--NO INTERVENTION, DEFIBRILLATOR PLACEMENT ) Cardiac, Section, Defibrillator, Hysterectomy Respiratory: Yes Asthma, Pneumonia, COPD Currently Using CPAP: No Currently Using BIPAP: No Cardiac: Yes (CHF EF 20% non ischemic, left atrial thrombus) Atrial Fibrillation, Cardiomyopathy, High Cholesterol, Hypertension Neurological: Yes Headaches /Migraines 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 Disorders: Yes (Hysterectomy) 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 Disorders: Denies [employer] History: Menopausal Sexually Transmitted Disease: No HIV/AIDS: No Genitourinary: Yes Renal Failure Gastrointestinal: Yes (history of elevated transaminases, HX of elevated liver enzymes) Gastroesophageal Reflux, Hiatal Hernia Musculoskeletal: Yes Arthritis Endocrine: Yes Hypothyroidsim HEENT: Yes Cataract Loss of Vision: Denies Hearing Impairment: Denies Cancer: No Bladder Psychosocial: Yes Sleep Difficulties, Anxiety, Depression Integumentary: No Blood Disorders: No Adverse Reaction/Blood Tranf: No Family Medical History Reviewed Nursing Family Hx Cancer 19 FATHER (HODGKINS ) 19 MOTHER (BRAIN TUMOR ) Congenital heart disease 19 MOTHER Congestive heart failure 19 MOTHER Family history: Cardiovascular disease 19 MOTHER G8 SISTER G8 SISTER Family history: Hypertension 19 MOTHER G8 SISTER G8 SISTER Heart disease 19 MOTHER G8 SISTER G8 SISTER History of - respiratory disease 19 MOTHER G8 BROTHER G8 SISTER Heart Disease, Cancer, Hypertension Review of Systems Time Seen by Provider: 05:52 Constitutional: Sweats, Weakness, Malaise; No: Fever, Chills, Other Eyes: No: Pain, Vision change, Conjunctivae inflammation, Eyelid inflammation, Other, Redness ENT: No: Ear pain, Ear discharge, Nose pain, Nose discharge, Nose congestion, Mouth pain, Mouth swelling, Throat pain, Throat swelling, Other Respiratory: Cough, Dry, Shortness of breath, SOB with excertion, Wheezing Cardiovascular: Paroxysmal Noc. Dyspnea; No: Chest Pain, Palpitations, Orthopnea, Edema, Lt Headedness, Other Gastrointestinal: Nausea, Vomiting; No: Abdominal Pain Genitourinary: No Dysuria, No Frequency, No Incontinence, No Hematuria, No Retention, No Other Neurological: Weakness, Incoordination, Confusion Exam Exam Vital Signs Date Time Temp Pulse Resp B/P (MAP) Pulse Ox O2 Delivery O2 Flow Rate FiO2 12/26/17 05:00 86 12 137/91 (106) 97 NIV Bilevel 35.00 12/26/17 04:36 103 16 96 35.00 12/26/17 04:00 98.7 12/26/17 04:00 86 16 146/87 (106) 97 NIV Bilevel 35.00 12/26/17 04:00 NIV Bilevel 35 12/26/17 03:00 87 16 145/94 (111) 97 NIV Bilevel 35.00 12/26/17 02:19 86 16 96 35.00 12/26/17 02:00 92 14 139/89 (106) 96 NIV Bilevel 35.00 12/26/17 01:00 96 12/26/17 01:00 95 18 149/90 (109) 97 NIV Bilevel 35.00 12/26/17 00:03 91 14 94 35.00 12/26/17 00:00 60 16 132/76 (94) 98 NIV Bilevel 35.00 12/26/17 00:00 NIV Bilevel 35 12/25/17 23:57 98.6 12/25/17 23:03 94 17 98 35.00 12/25/17 23:00 98 15 146/92 (110) 96 NIV Bilevel 35.00 12/25/17 22:00 96 11 158/99 (118) 95 NIV Bilevel 35.00 12/25/17 21:00 94 14 152/98 (116) 95 NIV Bilevel 35.00 12/25/17 20:20 94 16 95 35.00 12/25/17 20:00 95 13 150/96 (114) 95 NIV Bilevel 35.00 12/25/17 20:00 NIV Bilevel 35 12/25/17 19:41 92 12/25/17 19:25 98.1 NIV Bilevel 35.00 12/25/17 19:00 93 16 155/93 (113) 90 NIV Bilevel 30.00 12/25/17 19:00 NIV Bilevel 30.00 12/25/17 18:28 105 17 95 30.00 12/25/17 18:00 107 19 149/92 (111) 93 Nasal Cannula 3.00 12/25/17 17:00 101 13 147/97 (114) 96 Nasal Cannula 3.00 12/25/17 16:15 Nasal Cannula 3.00 12/25/17 16:05 Nasal Cannula 3.00 12/25/17 16:00 104 15 148/92 (110) 95 Nasal Cannula 3.00 12/25/17 15:00 101 15 140/97 (111) 96 Nasal Cannula 3.00 12/25/17 14:49 97 Nasal Cannula 3.00 12/25/17 14:00 103 15 148/90 (109) 95 Nasal Cannula 3.00 12/25/17 13:08 97 12/25/17 13:00 102 13 156/96 (116) 97 Nasal Cannula 3.00 12/25/17 12:45 98.1 100 12 156/102 (120) 100 Nasal Cannula 3.00 12/25/17 12:19 97.7 99 22 148/90 (109) 98 Nasal Cannula 12/25/17 09:20 98 Nasal Cannula 12/25/17 09:18 97.7 99 22 148/90 (109) 100 Nasal Cannula I & O 12/26/17 07:00 Intake Total 575 ml Output Total 640 ml Balance -65 ml General Appearance: WD/WN, Chronically ill, Mild Distress, Other HEENT: PERRL/EOMI, Normal ENT Inspection, Pharynx Normal Neck: Full Range of Motion, Normal Inspection, Non Tender, Supple, Carotid Bruit Respiratory: Chest Non Tender, Accessory Muscle Use, Crackles, Decreased Breath Sounds, Respiratory Distress, Wheezing Cardiovascular: No Edema, No Gallop, No JVD, No Murmur, Normal Peripheral Pulses, Tachycardia Capillary Refill: Less Than 3 Seconds Gastrointestinal: non tender, soft Extremity: Normal Capillary Refill, Normal Inspection, Normal Range of Motion, Non Tender, No Calf Tenderness, No Pedal Edema Neurologic/Psychiatric: Alert, No Motor/Sensory Deficits, Normal Mood/Affect, Disoriented Skin: Normal Color, Warm/Dry Lymphatic: No Adenopathy Results Lab Laboratory Tests 12/25/17 09:49 12/26/17 02:55 Assessment/Plan Assessment/Plan acute on chronic respiratory failure -PT has multiple admissions secondary to respiratory failure vent to mask -Will trial pt off BiPAP this morning CHF - With EF 10-15 % AICD -100mg of Lasix BID per cardiology Leukocytosis - improving without abx -- probably secondary to recent prednisone -NO current fevers -Hold off on Abx for now acute on chronic respiratory failure with COPD -SVNS, CKD stage III-IV H/O tobaccoism - stopped in 2012 255 ROSA ESCOTO DO Dec 26, 2017 05:43
[2017-12-26] MEDS ORDERED: MAGNESIUM 1 GM/100 ML IVPB 100 ML IV SCH (06:00)
[2017-12-26] MEDS ORDERED: KCL 20 MEQ TAB (K-DUR) PO SCH (06:00)
[2017-12-26] MEDS ORDERED: POTASSIUM CL 10MEQ/50ML IVPB 50 ML IV SCH (06:00)
--- NOTE | 2017-12-26 08:37 | Progress Note-Cardiology ---
Cardiology SOAP Progress Note Subjective: States she continues to feel unwell. C/O diffuse chest pain with gentle palpation of her chest or with movement. C/O epigastric pain with gentle palpation. Feels SOB is maybe a little better. No c/o palpitations. Objective: I&O/Vital Signs 12/25/17 12/25/17 12/25/17 12/26/17 23:00 23:03 23:57 00:00 Temp 98.6 Pulse 98 94 Resp 15 17 B/P (MAP) 146/92 (110) Pulse Ox 96 98 O2 Delivery NIV Bilevel NIV Bilevel O2 Flow Rate 35.00 35.00 FiO2 35 12/26/17 12/26/17 12/26/17 12/26/17 00:00 00:03 01:00 01:00 Pulse 60 91 95 96 Resp 16 14 18 B/P (MAP) 132/76 (94) 149/90 (109) Pulse Ox 98 94 97 O2 Delivery NIV Bilevel NIV Bilevel O2 Flow Rate 35.00 35.00 35.00 12/26/17 12/26/17 12/26/17 12/26/17 02:00 02:19 03:00 04:00 Pulse 92 86 87 Resp 14 16 16 B/P (MAP) 139/89 (106) 145/94 (111) Pulse Ox 96 96 97 O2 Delivery NIV Bilevel NIV Bilevel NIV Bilevel O2 Flow Rate 35.00 35.00 35.00 FiO2 35 12/26/17 12/26/1712/26/12/26/17 04:00 04:00 04:36 05:00 Temp 98.7 Pulse 86 103 86 Resp 16 16 12 B/P (MAP) 146/87 (106) 137/91 (106) Pulse Ox 97 96 97 O2 Delivery NIV Bilevel NIV Bilevel O2 Flow Rate 35.00 35.00 35.00 12/26/17 12/26/17 12/26/17 12/26/17 06:00 06:13 07:00 07:00 Pulse 86 89 87 87 Resp 13 15 11 B/P (MAP) 146/90 (108) 146/89 (108) Pulse Ox 96 96 97 O2 Delivery NIV Bilevel NIV Bilevel O2 Flow Rate 35.00 35.00 35.00 12/26/17 12/26/17 12/26/17 12/26/17 07:35 08:00 08:30 09:00 Temp 98.5 Pulse 95 105 Resp 11 26 B/P (MAP) 139/93 (108) 139/86 (103) Pulse Ox 99 95 98 O2 Delivery Nasal Cannula Nasal Cannula Nasal Cannula Nasal Cannula O2 Flow Rate 3.00 3.00 3.00 3.00 12/26/17 00:00 Intake Total 475 ml Output Total 490 ml Balance -15 ml Weight (Pounds): 158 Weight (Ounces): 6.0 Weight (Calculated Kilograms): 71.435099 Constitutional: AAO x 3, well-developed, well-nourished, other (chest wall discomfort with palpation) Respiratory: No accessory muscle use, No respiratory distress; chest expansion is symmetric, chest is bilaterally symmetric, rhonchi (scattered), other ( diminished lower lobes bilat) Cardiovascular: regular rate-rhythm, S1 and S2, systolic murmur Gastrointestional: tender (epigastric), soft, round, audible bowel sounds Extremities: no lower extremity edema bilateral Neurologic/Psychiatric: grossly intact Skin: pallor; No rash, No ulcerations Results/Procedures: Labs Laboratory Tests 12/25/17 14:25: Urine Color YELLOW, Urine Clarity VERY CLOUDYH, Urine pH 5, Urine Specific [place] 1.015L, Urine Protein 3+H, Urine Glucose (UA) NEGATIVE, Urine Ketones NEGATIVE, Urine Nitrite NEGATIVE, Urine Bilirubin NEGATIVE, Urine Urobilinogen NORMAL, Urine Leukocyte Esterase 2+H, Urine RBC (Auto) 3+H, Urine RBC 0-2, Urine WBC 5-10H, Urine Squamous Epithelial Cells 2-5, Urine Crystals PRESENTH, Urine Amorphous Sediment RARE HUYEN URATESH, Urine Bacteria TRACE, Urine Casts NONE, Urine Mucus NEGATIVE, Urine Culture Indicated YES 12/26/17 02:55: White Blood Count 25.3H, Red Blood Count 2.82L, Hemoglobin 9.1L, Hematocrit 29L , Mean Corpuscular Volume 101H, Mean Corpuscular Hemoglobin 32, Mean Corpuscular Hemoglobin Concent 32, Red Cell Distribution Width 16.7H, Platelet Count 163, Mean Platelet Volume 12.9H, Neutrophils (%) (Auto) 90H, Lymphocytes ( %) (Auto) 5L, Monocytes (%) (Auto) 5, Eosinophils (%) (Auto) 0, Basophils (%) ( Auto) 0, Neutrophils # (Auto) 22.8H, Lymphocytes # (Auto) 1.3, Monocytes # (Auto ) 1.2H, Eosinophils # (Auto) 0.0, Basophils # (Auto) 0.0, Sodium Level 140, Potassium Level 4.0, Chloride Level 92L, Carbon Dioxide Level 32, Anion Gap 16H , Blood Urea Nitrogen 77H, Creatinine 2.53H, Estimat Glomerular Filtration Rate 20, BUN/Creatinine Ratio 30, Glucose Level 127H, Calcium Level 9.3, Magnesium Level 2.1, Total Bilirubin 0.6, Aspartate Amino Transf (AST/SGOT) 215H, Alanine Aminotransferase (ALT/SGPT) 387H, Alkaline Phosphatase 62, Total Protein 6.1L, Albumin 3.5 12/26/17 09:22: Blood Gas Puncture Site RT RADIAL, Blood Gas Patient Temperature 99.1, Arterial Blood pH 7.52H, Arterial Blood Partial Pressure CO2 48H, Arterial Blood Partial Pressure O2 , Arterial Blood HCO3 38H, Arterial Blood Total CO2 39.7H, Arterial Blood Oxygen Saturation 96, Arterial Blood Base Excess 14.1H, Hank Test YES-POS , Blood Gas Ventilator Setting NO, Blood Gas Inspired Oxygen 3 Microbiology 12/25/17 Urine Culture - Final, Complete NO GROWTH Laboratory Tests 12/25/17 09:49 12/26/17 02:55 A/P: Assessment: Acute on chronic respiratory failure, likely multi-factorial - pneumonia, acute on chronic exacerbation of COPD, acute on chronic systolic CHF Acute on chronic systolic CHF - treated with diuretics, but with poor response Elevated liver enzymes - possibly in some part d/t hepatobiliary congestion d/t CHF Epigastric/chest wall tenderness with gentle palpation - likely musculoskeletal Sepsis due to UTI/pneumonia, being managed by Dr Min Nausea/vomiting of undetermined etiology Acute on chronic anemia - chronic likely d/t chronic disease Hiatal hernia Cardiac catheterization showing mild coronary artery disease in 2012 - by Dr. Khoury in [place], [place] Nonischemic cardiomyopathy, LVEF 10-15% per echo of Jul [address] Levy Acute on chronic renal insufficiency - CKD stage III-IV - followed by Dr. Thakkar in [place], [place] Acute exacerbation of COPD - Bi-pap tx History of paroxysmal atrial fibrillation Not felt to be a suitable candidate for OAC d/t previous h/o GI bleed requiring multiple transfusions - she refuses OAC Hypertension Hyperlipidemia - followed by PCP JENNIFER - followed by Dr. Khoury - last interrogation in May 2017 per pt Intolerance to YOKASTA inhibitor and/or ARB due to history of chronic renal failure with an episode of worsening renal function when on these agents H/O tobaccoism - stopped in 2012 History of apical thrombus - was previously on OAC which was stopped d/t GI bleed - followed by Dr. 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 * Using high-dose diuretics - She does not seem to be responding well to aggressive diuretic tx (300 IV Lasix with approx 1,000 ml out put) * Renal function relatively stable * Prob pneumonia with sepsis - medical services managing * UTI with sepsis * Continue BB * Chronic anemia with some worsening of H/H and rising BUN - management per medical services * Nausea/vomiting of undetermined etiology - medical service managing * Diffuse chest tenderness and epigastric tenderness with palpation of undetermined etiology * Elevated liver enzymes of undetermined etiology - worsening - stop Amiodarone * Sinus tachycardia - continue BB * Consideration needs to be given to transfer to tertiary care facility with nephrology services and dialysis capability * D/W Dr. Adan Physician Assessment Physician Assessment Worsening malaise. No change in shortness of breath. Chest wall tenderness as before. No palp or syncope Lungs: may bs at bases Cor: reg Ext: no c/c/e A&R * As documented in our note above that I updated (italics) and as noted below * We recommend transfer to a tertiary care facility because of continuing CHF with poor response to diuretics (may need dialysis) and hepatic dysfunction and UTI with septicemia. I communicated this to Dr Barrera this morning * D/c amio due to hepatic dysfunction CORTNEY [employer] Dec 26, 2017 08:37 SUE CHARLES MD FACP [facility] Dec 26, 2017 10:20
[2017-12-26] MEDS: CARVEDILOL 12.5 MG (COREG) TABLET PO SCH (08:43)
[2017-12-26] MEDS: ISOSORBIDE MONONITRATE 30 MG (IMDUR) TAB PO SCH (08:43)
[2017-12-26] MEDS ORDERED: PANTOPRAZOLE 40 MG/10 ML (PROTONIX) VIAL IV SCH (09:00)
[2017-12-26] MEDS ORDERED: AMIODARONE 200 MG (CORDARONE) TAB PO SCH (09:00)
[2017-12-26] MEDS ORDERED: CEFEPIME INJECTION 2,000 MG in NS (IVPB) 50 ML IV NR (09:42)
--- NOTE | 2017-12-26 09:50 | Diagnostic Imaging Report ---
INDICATION: Pneumonia. Exam compared 12/25/2017 FINDINGS: Bilateral infiltrates showed no substantial change when compared to the previous. No pneumothorax is found. IMPRESSION: No convincing change in bilateral infiltrates and support apparatus. Dictated by: Dictated on workstation # [id number]
[2017-12-26 10:01] LABS: ABG BASE EXCESS 14.1 MMOL/L (-2.5-2.5); ABG OXYGEN SATURATION 96 % (94-100); ABG PCO2 48 MMHG (35-45); ABG PH 7.52 (7.37-7.43); ABG TCO2 39.7 MMOL/L (21.0-31.0)
[2017-12-26 10:05] LABS: ALLENS TEST YES-POS; INSPIRED O2 3; PATIENT TEMP 99.1; VENTILATOR NO
[2017-12-26 10:32] LABS: ABG BASE EXCESS 12.4 MMOL/L (-2.5-2.5); ABG OXYGEN SATURATION 100 % (94-100); ABG PCO2 45 MMHG (35-45); ABG PH 7.52 (7.37-7.43); ABG TCO2 37.6 MMOL/L (21.0-31.0)
[2017-12-26 10:35] LABS: ABG PO2 115 MMHG (79-93); ALLENS TEST YES-POS; INSPIRED O2 3; PATIENT TEMP 99.1; VENTILATOR NO
[2017-12-26] MEDS ORDERED: METH40VI2 IV (10:47)
[2017-12-26] MEDS ORDERED: CEFE2PIG IV (10:47)
[2017-12-26] MEDS ORDERED: FURO10VI IVP (10:47)
--- NOTE | 2017-12-26 10:52 | Discharge Summary-Hospitalist ---
Diagnosis/Chief Complaint Date of Admission Dec 25, 2017 at 11:43 Date of Discharge Discharge Date: Dec 26, 2017 Admission Diagnosis Assessment: Respiratory failure acute on chronic Plan: ICU Palliative care consult Needs DNR Poor prognosis Discharge Diagnosis (1) Acute on chronic systolic CHF (congestive heart failure) Status: Acute (2) HCAP (healthcare-associated pneumonia) Status: Acute (3) Acute and chronic respiratory failure with hypercapnia Status: Acute (4) Paroxysmal atrial fibrillation Status: Chronic (5) COPD (chronic obstructive pulmonary disease) Status: Chronic (6) HTN (hypertension) Status: Chronic (7) Nonischemic cardiomyopathy Status: Chronic (8) Chronic kidney disease, stage 4, severely decreased GFR Status: Chronic (9) COPD with acute exacerbation Status: Acute Discharge Summary Discharge Physical Exam Allergies: Coded Allergies: propoxyphene napsylate (Unverified Allergy, Severe, SEVERE NAUSEA AND VOMITING , 04/03/13) meperidine (Unverified Allergy, Unknown, 12/19/14) venom-honey bee (Verified Allergy, Unknown, 09/19/13) lisinopril (Verified Adverse Reaction, Unknown, PT STATES "BOTTOMS OUT" HER BLOOD PRESSURE, 03/12/15) Patient states that it "bottoms out" her blood pressure. She will refuse to take this medication and reports it as an allergy. Vitals & I&Os Vital Signs Date Time Temp Pulse Resp B/P (MAP) Pulse Ox O2 Delivery O2 Flow Rate FiO2 12/26/17 10:20 100 Nasal Cannula 5.00 12/26/17 09:00 105 26 139/86 (103) 12/26/17 07:35 98.5 12/26/17 04:00 35 General Appearance: Alert, Oriented X3, Cooperative, Other (pale, chronically ill) Respiratory: Normal Air Movement, Other (subtle wheeze noted right lower lobe) Abdominal: Soft Neuro: Strength at 5/5 X4 Ext Psych/Mental Status: Mental Status NL, Mood NL Hospital Course Hospital course: Patient had a very short hospital course due to need for transfer to higher level of care where nephrology services are available. [facility] was chosen due to seeing Dr. Khoury cardiology on a regular basis and has already established with the caustic liquor maker with [facility]. She was admitted right after she was just discharged less than 24 hours before due to acute on chronic respiratory failure found to have new infiltrates on chest x-ray with vascular congestion and elevated BNP indicative of volume overload. She was in an acute on chronic decline of status so she was admitted to ICU Dr. Thrasher and Dr. Elizabeth were both consulted and it was recommended after minimal urinary output after 100 mg of IV twice daily ordered it was felt that she required nephrology services along with higher level of care. Overall prognosis remains poor but ABG showed stability I did speak with hospitalist camera control operator at [place] who graciously accepted this admission and will be transferred there via ambulance. Labs (last 24 hrs) Laboratory Tests 12/25/17 14:25: Urine Color YELLOW, Urine Clarity VERY CLOUDYH, Urine pH 5, Urine Specific [place] 1.015L, Urine Protein 3+H, Urine Glucose (UA) NEGATIVE, Urine Ketones NEGATIVE, Urine Nitrite NEGATIVE, Urine Bilirubin NEGATIVE, Urine Urobilinogen NORMAL, Urine Leukocyte Esterase 2+H, Urine RBC (Auto) 3+H, Urine RBC 0-2, Urine WBC 5-10H, Urine Squamous Epithelial Cells 2-5, Urine Crystals PRESENTH, Urine Amorphous Sediment RARE HUYEN URATESH, Urine Bacteria TRACE, Urine Casts NONE, Urine Mucus NEGATIVE, Urine Culture Indicated YES 12/26/17 02:55: White Blood Count 25.3H, Red Blood Count 2.82L, Hemoglobin 9.1L, Hematocrit 29L , Mean Corpuscular Volume 101H, Mean Corpuscular Hemoglobin 32, Mean Corpuscular Hemoglobin Concent 32, Red Cell Distribution Width 16.7H, Platelet Count 163, Mean Platelet Volume 12.9H, Neutrophils (%) (Auto) 90H, Lymphocytes ( %) (Auto) 5L, Monocytes (%) (Auto) 5, Eosinophils (%) (Auto) 0, Basophils (%) ( Auto) 0, Neutrophils # (Auto) 22.8H, Lymphocytes # (Auto) 1.3, Monocytes # (Auto ) 1.2H, Eosinophils # (Auto) 0.0, Basophils # (Auto) 0.0, Sodium Level 140, Potassium Level 4.0, Chloride Level 92L, Carbon Dioxide Level 32, Anion Gap 16H , Blood Urea Nitrogen 77H, Creatinine 2.53H, Estimat Glomerular Filtration Rate 20, BUN/Creatinine Ratio 30, Glucose Level 127H, Calcium Level 9.3, Magnesium Level 2.1, Total Bilirubin 0.6, Aspartate Amino Transf (AST/SGOT) 215H, Alanine Aminotransferase (ALT/SGPT) 387H, Alkaline Phosphatase 62, Total Protein 6.1L, Albumin 3.5 12/26/17 09:22: Blood Gas Puncture Site RT RADIAL, Blood Gas Patient Temperature 99.1, Arterial Blood pH 7.52H, Arterial Blood Partial Pressure CO2 45, Arterial Blood Partial Pressure O2 115H, Arterial Blood HCO3 36H, Arterial Blood Total CO2 37.6H, Arterial Blood Oxygen Saturation 100, Arterial Blood Base Excess 12.4H, Hank Test YES-POS, Blood Gas Ventilator Setting NO, Blood Gas Inspired Oxygen 3 12/26/17 10:00: Lactic Acid Level 1.36 Microbiology 12/25/17 Urine Culture - Final, Complete NO GROWTH Patient resulted labs reviewed. Pending Labs Laboratory Tests 12/26/17 02:55: White Blood Count 25.3, Red Blood Count 2.82, Hemoglobin 9.1, Hematocrit 29, Mean Corpuscular Volume 101, Mean Corpuscular Hemoglobin 32, Mean Corpuscular Hemoglobin Concent 32, Red Cell Distribution Width 16.7, Platelet Count 163, Mean Platelet Volume 12.9, Neutrophils (%) (Auto) 90, Lymphocytes (%) (Auto) 5, Monocytes (%) (Auto) 5, Eosinophils (%) (Auto) 0, Basophils (%) (Auto) 0, Neutrophils # (Auto) 22.8, Lymphocytes # (Auto) 1.3, Monocytes # (Auto) 1.2, Eosinophils # (Auto) 0.0, Basophils # (Auto) 0.0, Sodium Level 140, Potassium Level 4.0, Chloride Level 92, Carbon Dioxide Level 32, Anion Gap 16, Blood Urea Nitrogen 77, Creatinine 2.53, Estimat Glomerular Filtration Rate 20, BUN/ Creatinine Ratio 30, Glucose Level 127, Calcium Level 9.3, Magnesium Level 2.1, Total Bilirubin 0.6, Aspartate Amino Transf (AST/SGOT) 215, Alanine Aminotransferase (ALT/SGPT) 387, Alkaline Phosphatase 62, Total Protein 6.1, Albumin 3.5 12/26/17 09:22: Blood Gas Puncture Site RT RADIAL, Blood Gas Patient Temperature 99.1, Arterial Blood pH 7.52, Arterial Blood Partial Pressure CO2 45, Arterial Blood Partial Pressure O2 115, Arterial Blood HCO3 36, Arterial Blood Total CO2 37.6, Arterial Blood Oxygen Saturation 100, Arterial Blood Base Excess 12.4, Hank Test YES-POS, Blood Gas Ventilator Setting NO, Blood Gas Inspired Oxygen 3 12/26/17 10:00: Lactic Acid Level 1.36 Discussion & Recommendations Discharge Planning: >30 minutes discharge planning Discharge Home Medications: Active Scripts Active Furosemide 10 Mg/1 Ml Vial 100 Mg IVP BID@0500,1700 3 Days Cefepime-Dextrose 2 gm/50 ml (Cefepime HCl/D5w) 2 Gm/50 Ml Piggyback 2 Gm IV DAILY 7 Days Solu-Medrol 40 mg Vial (Methylprednisolone Sod Succ/Pf) 40 Mg/1 Ml Vial 40 Mg IV Q6HR 3 Days Augmentin 500-125 Tablet (Amoxicillin/Potassium Clav) 1 Each Tablet 1 Each PO BID Prednisone 10 Mg Tab.ds.pk 40 Mg PO DAILY 4 pills daily for 2 days then decrease by 1 pill every other day Reported Iron (Ferrous Sulfate) 325 Mg Tablet 325 Mg PO DAILY Iprat-Albut 0.5-3(2.5) mg/3 ml (Ipratropium/Albuterol Sulfate) 3 Ml Ampul.neb 3 Ml IH Q4H PRN Imodium A-D (Loperamide HCl) 2 Mg Capsule 2 Mg PO UD PRN Tums X-Str (Calcium Carbonate) 300 Mg Tab.chew 300 Mg PO QID PRN Iprat-Albut 0.5-3(2.5) mg/3 ml (Ipratropium/Albuterol Sulfate) 3 Ml Ampul.neb 3 Ml NEB TID Levothyroxine Sodium 25 Mcg Tablet 25 Mcg PO DAILY Zofran Odt (Ondansetron) 4 Mg Tab.rapdis 4 Mg SL Q6H PRN Amiodarone HCl 200 Mg Tablet 200 Mg PO DAILY Oxycodone HCl 5 Mg Tablet 5 Mg PO Q4H PRN Furosemide 20 Mg Tablet 20 Mg PO DAILY One Daily For Women 50+ Adv Tb (Multivitamins-Min/FA/Ginkgo) 1 Each Tablet 1 Tab PO DAILY Magnesium (Magnesium Oxide) 400 Mg Tablet 400 Mg PO DAILY Lorazepam 0.5 Mg Tablet 0.5 Mg PO HS Sertraline HCl 100 Mg Tablet 150 Mg PO HS TAKES 1 & 1/2 OF A (100 MG) TABLET Omeprazole 40 Mg Capsule.dr 40 Mg PO DAILY Isosorbide Mononitrate ER (Isosorbide Mononitrate) 30 Mg Tab.er.24h 15 Mg PO BID TAKES 1/2 (30MG) TABLET Carvedilol 12.5 Mg Tablet 12.5 Mg PO BID Tylenol Extra Strength (Acetaminophen) 500 Mg Tablet 1,000 Mg PO Q6H PRN Instructions to patient/family Please see electronic discharge instructions given to patient. Clinical Quality Measures DVT/VTE Risk/Contraindication: Risk Factor Score Per Nursin RFS Level Per Nursing on Admit: 3=High SAM GIBBS DO Dec 26, 2017 10:52
[2017-12-26] MEDS ORDERED: methylPREDNISolone 40 MG/ML (Solu-MEDROL) VIAL IV SCH (12:00)
[2017-12-27] MEDS ORDERED: CEFEPIME INJECTION 2,000 MG in NS (IVPB) 50 ML IV SCH (09:00)
--- NOTE | 2017-12-29 23:02 | Physician Query-Sepsis ---
Physician Query-Sepsis Query to Physician: The documentation in this patient's medical record requires additional clarification to accurately capture the patient's diagnosis (es), treatment, acuity, and/or severity of illness per CMS guidelines. Criteria, any TWO of the following with an infectious OR noninfectious etiology: * Temp= <96.8 or >100.4 * HR= >90 bpm * RR= >20/min or PaCO2<32 mmHG * WBC= <4000 or >12,000; or >10% bands PATIENT DATA: DATE/TIME: 12/25/09:18 TEMP: 97.7 PULSE: 99 RESP: 22 B/P: 148/90 WBC: 27.2 LACTIC ACID: 1.36 (not done until 12/26, 10:00) OTHER: Dr Elizabeth's consult from 12/25 states pneumonia with sepsis with no further mention in the medical record. Blood Culture Organism: (Negative or inconclusive blood cultures do not preclude a diagnosis of septicemia or Sepsis in patients with clinical evidence of the condition.) Choose one of the below Dx: Sepsis=2 or more SIRS criteria with an identified source or suspected source of infection Severe Sepsis=Sepsis associated with organ dysfunction, hypoperfusion or hypotension. (Manifestations may include lactic acidosis, oliguria, and acute alteration in mental status.) Septic Shock=Acute circulatory failure unexplained by other cause: SBP <90 or MAP <65 or reduction in SBP 40 mmHg from baseline despite adequate volume resuscitation or Lactate Level >=4 mmol/L. Patients who require inotropic or vasopressor support despite adequate fluid replacement are in septic shock. Septicemia=Systemic disease associated with the presence of pathological microorganisms or toxins in the blood. Bacteremia=Per ICD-9 guidelines, Bacteremia indicates the presence of bacteria in the blood, but DOES NOT infer the bacterium are pathological or has resulted in any systemic illness needing treatment Please indicate if no sepsis, none of the above, not correct physician/provider. PHYSICIAN RESPONSE: Choose one of the diagnosis: Sirs Physician Note: If you have questions please contact: Manager Of Sales: Ext: Thank you for your time and cooperation. Clinical Hire Car Driver/Manager Of Sales This is a permanent part of the medical record MIC BECKER Dec 29, 2017 23:02 SAM GIBBS DO Dec 30, 2017 08:13
--- NOTE | 2017-12-29 23:05 | Physician Query Clarification ---
PQ-Intro New Diagnosis Admission/Discharge Admission Date: Dec 25, 2017 at 11:43 Discharge Date: Dec 26, 2017 at 14:50 The medical record reflects the following clinical scenario: History/Risk Factors: indwelling cath Clinical Findings: UA shows trace bacteria, cultures are negative Treatment: antibiotics Question: What condition best reflects the above clinical scenario? Please document below. 1. UTI due to indwelling catheter 2. UTI 3. Other, with explanation of the clinical findings. 4. No UTI PHYSICIAN RESPONSE What condition reflects above: 2 In responding to this query, please exercise your independent professional judgment. The purpose of this communication is to more accurately reflect the complexity of your patients condition. The fact that a question is asked does not imply that any particular answer is desired or expected. Thank you for your timely response to this clarification. Requestors name: [ ] Phone # [ ] THIS PHYSICIAN QUERY FORM IS A PERMANENT PART OF THE MEDICAL RECORD MIC BECKER Dec 29, 2017 23:05 SAM GIBBS DO Dec 30, 2017 08:14
== END 2017-12-26 14:50 | disposition short-term general hospital (02) | DRG 291 ==
LOC: EDUNIT# 09:07 → ER 09:08 → ICU 11:43
PROVIDERS: ADMIT Internal Medicine; ATTEND Internal Medicine
DX: I13.0 Hypertensive heart and chronic kidney disease with heart failure and stage 1 through stage 4 chronic kidney disease, or unspecified chronic kidney disease (principal); I50.23 Acute on chronic systolic (congestive) heart failure; N18.4 Chronic kidney disease, stage 4 (severe); J96.22 Acute and chronic respiratory failure with hypercapnia; J43.9 Emphysema, unspecified; J18.9 Pneumonia, unspecified organism; N39.0 Urinary tract infection, site not specified; I50.84 End stage heart failure; D72.829 Elevated white blood cell count, unspecified; T38.0X5A Adverse effect of glucocorticoids and synthetic analogues, initial encounter; I42.8 Other cardiomyopathies; I48.0 Paroxysmal atrial fibrillation; I25.10 Atherosclerotic heart disease of native coronary artery without angina pectoris; E78.00 Pure hypercholesterolemia, unspecified; E03.9 Hypothyroidism, unspecified; M19.91 Primary osteoarthritis, unspecified site; K21.9 Gastro-esophageal reflux disease without esophagitis; K44.9 Diaphragmatic hernia without obstruction or gangrene; K76.1 Chronic passive congestion of liver; D63.8 Anemia in other chronic diseases classified elsewhere; F41.9 Anxiety disorder, unspecified; F32.9 Major depressive disorder, single episode, unspecified; R11.2 Nausea with vomiting, unspecified; R74.8 Abnormal levels of other serum enzymes; Z99.81 Dependence on supplemental oxygen; Z87.891 Personal history of nicotine dependence; Z95.810 Presence of automatic (implantable) cardiac defibrillator; Z85.51 Personal history of malignant neoplasm of bladder
CPT/HCPCS: 36415; 71045; 80053; 81000; 82805; 83605; 83735; 83880; 84484; 85007; 85025; 85027; 87040; 87088; 93005; 93041; 94640; 94660; 96374; 96375

== ENCOUNTER 2018-03-06 23:05 | Emergency (ER) | payer MEDICARE, MEDICAID ==
[~2018-03-06] VITALS: Ht 149.9 cm; Wt 54.4 kg
[~2018-03-06 23:05] MED LIST changes: +CEFE2PIG IV; +METH40VI2 IV
--- OUTSIDE RECORDS SUMMARY | 2018-03-06 23:12 | XMS REPORT ---
Author Author LEE SILVA [facility] Address [address] [place] [address] Care Team Providers Care Sports Psychologist Name Role Phone LEE SILVA Unavailable PROBLEMS Type Condition ICD9-CM Code ZCM68-UA Code Onset Dates Condition Status SNOMED Code Problem Cardiomyopathy I42.9 Active 36176908 Problem Acute on chronic systolic CHF (congestive heart failure) I50.23 Active 483399504 Problem Chronic obstructive pulmonary disease, unspecified J44.9 Active 52217837 Problem Slow transit constipation K59.01 Active 33144045 Problem Acquired hypothyroidism E03.9 Active 362436177 Problem Chronic kidney disease, stage III (moderate) N18.3 Active 294918478 Problem Supplemental oxygen dependent Z99.81 Active 861068694759 Problem Chronic kidney disease, stage IV (severe) N18.4 Active 959183643 Problem COPD with acute lower respiratory infection J44.0 Active 927378701 Problem Mild depression F32.0 Active 175492142 Problem Anemia associated with chronic renal failure D63.1 Active 983674359 Problem Essential hypertension I10 Active 90646617 Problem Chronic systolic heart failure I50.22 Active 891812680 Problem Paroxysmal atrial fibrillation I48.0 Active 293860699 Problem Chronic obstructive pulmonary disease with (acute) exacerbation J44.1 Active 093527895 Problem Anxiety F41.9 Active 20711758 Problem Psychophysiological insomnia F51.04 Active 349614455 Problem Acute on chronic combined systolic and diastolic CHF (congestive heart failure) I50.43 Active 037118842450015 Problem Dependence on supplemental oxygen Z99.81 Active [id number] ALLERGIES No Information ENCOUNTERS Encounter Location Date Diagnosis [facility] [address] [place] [id number] Feb, Chronic kidney disease, stage IV (severe) N18.4 ; Chronic systolic heart failure I50.22 ; COPD with acute lower respiratory infection J44.0 ; Vertigo R42 ; Slow transit constipation K59.01 ; Hemorrhoids, unspecified hemorrhoid type K64.9 ; Acquired hypothyroidism E03.9 ; Candidiasis of breast B37.89 and Difficulty in urination R39.198 [place] [id number] [place] [address] Jan, Acute on chronic systolic CHF (congestive heart failure) I50.23 ; Acute kidney failure, unspecified N17.9 ; Chronic kidney disease, stage III (moderate) N18.3 and Supplemental oxygen dependent Z99.81 [place] [id number] [place] [address]84- 1241 Jan, Acute on chronic combined systolic and diastolic CHF ( congestive heart failure) I50.[address] [address] Jan, [facility] [address] [address] Jan, Irritant contact dermatitis due to cosmetics L24.3 ; Effusion of right wrist M25.431 and Pain in right wrist M25.[address] [address] Dec, Chronic systolic heart failure I50.22 ; Chronic obstructive pulmonary disease with (acute) exacerbation J44.1 ; CKD (chronic kidney disease ) stage 4, GFR 15-29 ml/min N18.4 ; Cardiomyopathy I42.9 ; Dependence on supplemental oxygen Z99.81 and Psychophysiological insomnia F51.04 [place] [id number] [place] [address]- 1465 Dec, Anxiety F41.[address] [address] Dec, [address] [address]- [address] Dec, [address] [address] Dec, [facility] [address] [place] [id number] Dec, Encounter for examination for admission to prison Z02.2 ; Chronic obstructive pulmonary disease, unspecified J44.9 ; Paroxysmal atrial fibrillation I48.0 ; CKD (chronic kidney disease) stage 4, GFR 15-29 ml/min N18.4 and Cardiomyopathy I42.9 [place] [address] [address] Dec, [facility] [id number] [address] Nov, Acute on chronic combined systolic and diastolic CHF ( congestive heart failure) I50.43 [place] [address] [address] Nov, [place] [address], [place] [address] Nov, [place] [id number] [address] Nov, Chronic systolic heart failure I50.22 ; Paroxysmal atrial fibrillation I48.0 ; Chronic obstructive pulmonary disease with (acute) exacerbation J44.1 ; Chronic kidney disease, stage 4 (severe) N18.4 ; Pain in right hip M25.551 and Pain in left hip M25.552 [place] [address], [place] [address] Nov, Chronic kidney disease, stage 4 (severe) N18.4 [facility] [address] [address] Nov, [place] [address] [address] Nov, [place] [address], [place] [address] October, Chronic obstructive pulmonary disease with (acute) exacerbation J44.1 ; Chronic systolic heart failure I50.22 ; CKD (chronic kidney disease) stage 4, GFR 15-29 ml/min N18.4 and Dependence on supplemental oxygen Z99.81 [place] [address], [place] [address] October, [facility] [id number] [place] [address]- 3611 October, [facility] [id number] [place] [address]- [address] Sep, Chronic kidney disease, stage 4 (severe) N18.4 and Chronic kidney disease, stage IV (severe) N18.4 [place] [id number] [place] [address] 43148- 1006 Sep, Chronic kidney disease, stage 4 (severe) N18.4 [place] [id number] [place] [address]126- 3[address] Sep, Anxiety F41.9 ; Paroxysmal atrial fibrillation I48.0 ; Chronic kidney disease, stage 4 (severe) N18.4 ; Chronic systolic heart failure I50.22 and Anemia associated with chronic renal failure D63.1 [place] [id number] [place] [address] 88208- 1042 Sep, [place] [id number] [place] [address] 0[address]40- 9933 Aug, [place] [id number] [place] [address] 73674- 3943 Aug, [facility] [address] [place] [id number] Aug, Acute on chronic combined systolic and diastolic CHF (congestive heart failure) I50.43 ; Essential hypertension I10 ; CKD (chronic kidney disease) stage 4, GFR 15-29 ml/min N18.4 ; Paroxysmal atrial fibrillation I48.0 and Mild depression F32.0 [place] [id number] [place] [address] 40193- 8228 Aug, [place] [id number] [place] [address] 72840- 6146 Aug, [facility] [address] [address] Aug, Acute on chronic respiratory failure with hypoxia J96.21 ; Acute kidney failure, unspecified N17.9 ; Chronic kidney disease, stage 4 ( severe) N18.4 ; Acute on chronic combined systolic and diastolic CHF ( congestive heart failure) I50.43 ; Paroxysmal atrial fibrillation I48.0 and Cardiomyopathy, unspecified type I42.9 [facility] [id number] [place] [address] 79593- 1813 Aug, [facility] [id number] [place] [address] 60600- 5765 Jul, [facility] [id number] [place] [address] 36108- 8614 Jul, [place] [id number] [place] [address] 30658- 7670 Jul, [facility] [id number] [place] [address] 63549- 1011 Jul, [facility] [id number] [place] [address] 98106- 3136 Jul, Community acquired pneumonia of right lower lobe of lung J18.1 ; CKD (chronic kidney disease) stage 4, GFR 15-29 ml/min N18.4 and Shortness of breath R06.02 [facility] [id number] [place] [address] [id number] Jul, 2017 [facility] [id number] [place] [address]93- 3810 Jun, Anxiety F41.9 [place] [id number] [place] [address] 06345- 9609 13 Apr, 2017 Anxiety F41.9 [facility] [id number] [place] [address] 64030- 5167 10 Apr, 2017 Cough R05 and Pneumonia of right lower lobe due to infectious organism J18.1 [place] [id number] [place] [address] 27869- 2272 Apr, [place] [address] [address] Apr, Chronic kidney disease, stage IV (severe) N18.4 and COPD exacerbation J44.1 [place] [address] [address] Feb, Chronic systolic heart failure I50.22 ; Essential hypertension I10 ; Anemia associated with chronic renal failure D63.1 and Chronic kidney disease, stage 4 (severe) N18.4 [place] [address] [address]- [address] Feb, Anxiety F41.9 [place] [address] [address]- [address] Feb, [place] [address] [address] Feb, [place] [address] [address]- [address]308 Jan, Other fatigue R53.83 ; Otalgia of both ears H92.03 and Urinary urgency R39.15 [place] [id number] [place] [address] 60772- 5909 Jan, Acute non-recurrent maxillary sinusitis J01.00 ; Chronic systolic heart failure I50.22 ; Stage 3 chronic kidney disease N18.3 and Mild depression F32.0 [place] [id number] [place] [address] 88739- 0270 Sep, [place] [address] [address]- 2556 Sep, [place] [id number] [place] [address] 39426- 4395 17 Feb, [address] [address] Feb, [facility] [place] [facility] [address] [id number] [place] [address] Dec, [facility] [place] [facility] [address] [id number] [place] [address]- 1336 Dec, [facility] [place] [facility] [address] [id number] [place] [address]- 6308 Nov, [facility] [place] [facility] [address] [id number] [place] [address]- 4231 Nov, [facility] [place] [facility] [address] [id number] [place] [address]- 0166 Nov, [facility] [place] [facility] [address] [id number] [place] [address]- 5380 Nov, [facility] [place] [facility] [address] [id number] [place] [address]- 6279 October, [facility] [place] [facility] [address] [id number] [place] [address]- 3686 October, [facility] [place] [facility] [address] [id number] [place] [address]- 4409 Sep, [facility] [place] [facility] [address] [id number] [place] [address]- 9214 Sep, [facility] [place] [facility] [address] [id number] [place] [address]- 0861 Sep, [facility] [place] [facility] [address] [id number] [place] [address]- 7591 Sep, [facility] [place] [facility] [address] [id number] [place] [address]- 3028 Sep, [facility] [place] [facility] [address] [id number] [place] [address]- 3411 Aug, [facility] [place] [facility] [address] [id number] [place] [address]- 1241 Aug, [facility] [place] [facility] [address] [id number] [place] [address]- 3303 Aug, [facility] [place] [facility] [address] [id number] [place] [address]- 9484 Aug, [facility] [place] [facility] [address] [id number] [place] [address]- 0536 Aug, [facility] [place] [facility] [address] [id number] [place] [address]- 5672 Aug, [facility] [place] [facility] [address] [id number] [place] [address]- 8306 Aug, [facility] [place] [facility] [address] [id number] [place] [address]- 3084 Aug, [facility] [place] [facility] [address] [id number] [place] [address]- 6204 Jul, [facility] [place] [facility] [address] [id number] [place] [address]- 7227 Jul, [facility] [place] [facility] [address] [id number] [place] [address]- 1222 Jul, [facility] [place] [facility] [address] [id number] [place] [address]- 8368 Jul, [facility] [place] [facility] [address] [facility] [id number] [place] [address]- 5442 Jul, [facility] [place] [facility] [address] [id number] [place] [address]- 7216 Jul, [facility] [place] [facility] [address] [id number] [place] [address]- 2003 Jun, [facility] [place] [facility] [address] [id number] [place] [address]- 8578 Jun, [facility] [place] [facility] [address] [id number] [place] [address]- 2026 Jun, [facility] [place] [facility] [address] [id number] [place] [address]- 1935 Jun, [facility] [address] [id number] [place] [address]- 6142 Jun, [facility] [place] [facility] [address] [id number] [place] [address]- 1512 May, [facility] [place] [facility] [address] [id number] [place] [address]- 3179 May, [facility] [place] [facility] [address] [id number] [place] [address]- 4026 May, [facility] [place] [facility] [address] [id number] [place] [address]- 2084 May, [facility] [place] [facility] [address] [id number] [place] [address]- 8864 May, [facility] [place] [facility] [address] [id number] [place] [address]- 3803 Apr, [facility] [place] [facility] [address] [id number] [address]- 3079 Apr, [facility] [place] [facility] [address] [id number] [place] [address]- 3665 Mar, [facility] [place] [facility] [address] [id number], [place] [address]- 8785 Mar, [facility] [place] [facility] [address] [id number], [place] [address] 2548 Mar, [facility] [place] [facility] [address] [id number], [place] [address]- 3615 Mar, [facility] [place] [facility] [address] [id number] [place] [address] 254 Feb, [facility] [place] [facility] [address] [id number], [place] [address]- 7546 Jan, [facility] [place] [facility] [address] [id number] [address]- 2546 Jan, [facility] [place] [facility] [address] [id number] [place] [address]- 7684 Aug, [facility] [place] [facility] [address] [id number] [place] [address]- 3830 08 Jul, 2012 [facility] [place] [facility] [address] [id number] [place] [address]- 6236 Jun, [facility] [place] [facility] [address] [id number] [place] [address]- 2043 May, [facility] [place] [facility] [address] [id number] [place] [address]- 6472 May, [facility] [place] [facility] [address] [id number] [place] [address]- 3670 May, [facility] [place] [facility] [address] [id number] [place] [address]- 2614 May, [facility] [place] [facility] [address] [facility] [id number] [place] [address]- 3036 Apr, [facility] [place] [facility] [address] [id number] [place] [address]- 2219 Apr, [facility] [place] [facility] [address] [facility] [id number] [place] [address]- 5746 Mar, [facility] [place] [facility] [address] [facility] [id number] [place] [address]- 6091 30 Mar, 2012 [facility] [place] [facility] [address] [id number] [place] [address]- 6339 Mar, [facility] [place] [facility] [address] [id number] [place] [address]- 8262 Mar, [facility] [place] [facility] [address] [id number] [place] [address]- 1153 Mar, [facility] [place] [facility] [address] [facility] [id number] [place] [address]- 1939 Mar, [facility] [place] [facility] [address] [id number] [place] [address]- 7117 Dec, [facility] [address] [facility] [id number], [place] [address]- 2546 Dec, [facility] [address] [address]- 2546 Nov, [facility] [address] [address]- 2546 Nov, [facility] [address], [place] [address]- 2546 October, [facility] [address] [address]- 2546 October, [facility] [address] [address]- 2546 Sep, [facility] [address] [address]- 2546 Aug, [facility] [address] [address]- 2546 Aug, [facility] [id number] [address]- 2546 Aug, IMMUNIZATIONS No Known Immunizations SOCIAL HISTORY Never Assessed REASON FOR VISIT [place] Admission PLAN OF CARE Activity Details Follow Up prn Reason: VITAL SIGNS MEDICATIONS Medication Instructions Dosage Frequency Start Date End Date Duration Status Levothyroxine Sodium 25 MCG Orally Once a day 1 tablet on an empty stomach in the morning 24h Active Ferrous Sulfate 325 (65 Fe) MG Orally Once a day 1 tablet 24h Active Ondansetron 4 MG Orally every 6 hrs prn nausea/vomiting 1 tablet on the tongue and allow to dissolve as needed Active Magnesium Oxide 400 MG Orally Once a day 1 tablet as needed 24h Active Ipratropium-Albuterol 0.5-2.5 (3) MG/3ML Inhalation every 6 hrs 3 ml 6h 30 days Active Carvedilol 12.5 MG Orally 2 times a day 1 capsule 12h Active Isosorbide Mononitrate ER 30 MG Orally twice a day 0.5 tablets 12h Active Loperamide HCl 2 MG Orally Four times a day 1 capsule as needed 6h Active Lorazepam 0.5 MG Orally everyday at bedtime 1 tablet Aug, Active Sertraline HCl 100 mg Orally Once a day 1 1/2 tablets 24h 30 days Active Pantoprazole Sodium 40 MG Orally Once a day 1 tablet 24h Active Multivitamin Women - Active Oxycodone HCl 5 mg Orally every 4 hrs 1 tablet as needed 4h Active Furosemide 20 MG Orally Once a day 1 tablet 24h Active Amiodarone HCl 200 mg Orally Once a day 1 tablet 24h 90 days Active Tums 500 MG Orally Once a day 1 tablet 24h Active Tylenol Extra Strength 500 MG Orally every 6 hrs 2 tablets as needed 6h Active RESULTS No Results PROCEDURES Procedure Date Ordered Result Body Site [facility] VISIT ESTABLISHED PATIENT January 06, 2018 INSTRUCTIONS MEDICATIONS ADMINISTERED No Known Medications MEDICAL (GENERAL) HISTORY Type Description Date Medical History hyperlipidemia Medical History htn Medical History kidney failure stage 4 - dx in 2012 Medical History hypothyroidisim Medical History neuropathy Medical History COPD - See's Dr Burnette in [facility] Medical History Chronic Heart Failure Surgical History 2 [facility] Surgical History defibrillator - 2012 Hospitalization History pneumonia for a week 2016 Hospitalization History Hospitalized at [facility]- CHF, Chest pain. Dismissed 07/11/17 07/10/2017 Hospitalization History [facility] pneumonia, hypoxia-[facility] 07/30/17 Hospitalization History [facility]- [facility] PNA, Respiratory Failure. Transfered to [place] 10/25/2017 Hospitalization History CHF/COPD 11/2017
--- OUTSIDE RECORDS SUMMARY | 2018-03-06 23:12 | XMS REPORT ---
Author Author LEE SILVA [facility] Address [address] [place] [address] Care Team Providers Care Overnight Associate Name Role Phone LEE SILVA Unavailable PROBLEMS Type Condition ICD9-CM Code [id number] Code Onset Dates Condition Status SNOMED Code Problem Cardiomyopathy I42.9 Active 38061534 Problem Acute on chronic systolic CHF (congestive heart failure) I50.23 Active 762064190 Problem Chronic obstructive pulmonary disease, unspecified J44.9 Active 90373207 Problem Slow transit constipation K59.01 Active 91871722 Problem Acquired hypothyroidism E03.9 Active 113331842 Problem Chronic kidney disease, stage III (moderate) N18.3 Active 850519611 Problem Supplemental oxygen dependent Z99.81 Active 282971381471 Problem Chronic kidney disease, stage IV (severe) N18.4 Active 286878685 Problem COPD with acute lower respiratory infection J44.0 Active 894887788 Problem Mild depression F32.0 Active 963629347 Problem Anemia associated with chronic renal failure D63.1 Active 674131232 Problem Essential hypertension I10 Active 13123516 Problem Chronic systolic heart failure I50.22 Active 414582757 Problem Paroxysmal atrial fibrillation I48.0 Active 375607260 Problem Chronic obstructive pulmonary disease with (acute) exacerbation J44.1 Active 426010660 Problem Anxiety F41.9 Active 99293767 Problem Psychophysiological insomnia F51.04 Active 023326351 Problem Acute on chronic combined systolic and diastolic CHF (congestive heart failure) I50.43 Active 306368677096984 Problem Dependence on supplemental oxygen Z99.81 Active [id number] ALLERGIES No Information ENCOUNTERS Encounter Location Date Diagnosis [facility] [address] [place] [id number] Feb, Chronic kidney disease, stage IV (severe) N18.4 ; Chronic systolic heart failure I50.22 ; COPD with acute lower respiratory infection J44.0 ; Vertigo R42 ; Slow transit constipation K59.01 ; Hemorrhoids, unspecified hemorrhoid type K64.9 ; Acquired hypothyroidism E03.9 ; Candidiasis of breast B37.89 and Difficulty in urination R39.198 [place] [id number] [place] [address] Jan, Acute on chronic systolic CHF (congestive heart failure) I50.23 ; Acute kidney failure, unspecified N17.9 ; Chronic kidney disease, stage III (moderate) N18.3 and Supplemental oxygen dependent Z99.81 [place] [id number] [place] [address]- 4412 Jan, Acute on chronic combined systolic and diastolic CHF ( congestive heart failure) I50.[address] [address] Jan, [facility] [address] [address] Jan, Irritant contact dermatitis due to cosmetics L24.3 ; Effusion of right wrist M25.431 and Pain in right wrist M25.[address] [address] Dec, Chronic systolic heart failure I50.22 ; Chronic obstructive pulmonary disease with (acute) exacerbation J44.1 ; CKD (chronic kidney disease ) stage 4, GFR 15-29 ml/min N18.4 ; Cardiomyopathy I42.9 ; Dependence on supplemental oxygen Z99.81 and Psychophysiological insomnia F51.04 [place] [id number] [place] [address]4548- [address] Dec, Anxiety F41.[address] [address] Dec, [address] [address] Dec, [address] [address] Dec, [facility] [address] [place] [id number] Dec, Encounter for examination for admission to [facility] Z02.2 ; Chronic obstructive pulmonary disease, unspecified J44.9 ; Paroxysmal atrial fibrillation I48.0 ; CKD (chronic kidney disease) stage 4, GFR 15-29 ml/min N18.4 and Cardiomyopathy I42.9 [place] [address] [address] Dec, [facility] [id number] [address] Nov, Acute on chronic combined systolic and diastolic CHF ( congestive heart failure) I50.43 [place] [address], [place] [address] Nov, [place] [address], [place] [address] Nov, [facility] [id number] [address] Nov, Chronic systolic heart failure I50.22 ; Paroxysmal atrial fibrillation I48.0 ; Chronic obstructive pulmonary disease with (acute) exacerbation J44.1 ; Chronic kidney disease, stage 4 (severe) N18.4 ; Pain in right hip M25.551 and Pain in left hip M25.552 [place] [address], [place] [address] Nov, Chronic kidney disease, stage 4 (severe) N18.4 [facility] [address], [place] [address] Nov, [place] [address], [place] [address] Nov, [place] [address], [place] [address] October, Chronic obstructive pulmonary disease with (acute) exacerbation J44.1 ; Chronic systolic heart failure I50.22 ; CKD (chronic kidney disease) stage 4, GFR 15-29 ml/min N18.4 and Dependence on supplemental oxygen Z99.81 [place] [address], [place] [address] October, [facility] [id number] [place] [address] October, [facility] [id number] [place] [address] 75967- 9869 Sep, Chronic kidney disease, stage 4 (severe) N18.4 and Chronic kidney disease, stage IV (severe) N18.4 [place] [id number] [place] [address]32- 3977 Sep, Chronic kidney disease, stage 4 (severe) N18.4 [place] [id number] [place] [address] 73554- 3179 Sep, Anxiety F41.9 ; Paroxysmal atrial fibrillation I48.0 ; Chronic kidney disease, stage 4 (severe) N18.4 ; Chronic systolic heart failure I50.22 and Anemia associated with chronic renal failure D63.1 [place] [id number] [place] [address] 25716- 6591 Sep, [place] [id number] [place] [address] 69495- 5918 Aug, [place] [id number] [place] [address] 94729- 4787 Aug, [facility] [address] [place] [id number] Aug, Acute on chronic combined systolic and diastolic CHF (congestive heart failure) I50.43 ; Essential hypertension I10 ; CKD (chronic kidney disease) stage 4, GFR 15-29 ml/min N18.4 ; Paroxysmal atrial fibrillation I48.0 and Mild depression F32.0 [place] [address] [place] [address] 28877- 8144 Aug, [place] [id number] [place] [address] 77215- 7189 Aug, [facility] [address], [place] [address] Aug, Acute on chronic respiratory failure with hypoxia J96.21 ; Acute kidney failure, unspecified N17.9 ; Chronic kidney disease, stage 4 ( severe) N18.4 ; Acute on chronic combined systolic and diastolic CHF ( congestive heart failure) I50.43 ; Paroxysmal atrial fibrillation I48.0 and Cardiomyopathy, unspecified type I42.9 [facility] [id number] [place] [address] 97692- 3749 Aug, [facility] [id number] [place] [address]- 365[address] Jul, [facility] [id number] [place] [address] 36251- 0746 Jul, [place] [id number] [place] [address] 90278- 7815 Jul, [facility] [id number] [place] [address] 64885- 1145 Jul, [facility] [id number] [place] [address] 49229- 8269 Jul, Community acquired pneumonia of right lower lobe of lung J18.1 ; CKD (chronic kidney disease) stage 4, GFR 15-29 ml/min N18.4 and Shortness of breath R06.02 [facility] [id number] [place] [id number] 05 Jul, 2017 [facility] [address] [place] [address] 99242- 1165 Jun, Anxiety F41.9 [place] [id number] [place] [address] 03188- 3896 13 Apr, 2017 Anxiety F41.9 [facility] [address] [place] [address] 00823- 6398 10 Apr, 2017 Cough R05 and Pneumonia of right lower lobe due to infectious organism J18.1 [place] [id number] [place] [address] 99668- 9406 Apr, [place] [address] [address] Apr, Chronic kidney disease, stage IV (severe) N18.4 and COPD exacerbation J44.1 [place] [address] [address]166 Feb, Chronic systolic heart failure I50.22 ; Essential hypertension I10 ; Anemia associated with chronic renal failure D63.1 and Chronic kidney disease, stage 4 (severe) N18.4 [place] [address] [address]- 8636 Feb, Anxiety F41.9 [place] [address] [address]- 2525 Feb, [place] [address] [address] Feb, [place] [address] [address] Jan, Other fatigue R53.83 ; Otalgia of both ears H92.03 and Urinary urgency R39.15 [place] [id number] [place] [address]177- 8057 Jan, Acute non-recurrent maxillary sinusitis J01.00 ; Chronic systolic heart failure I50.22 ; Stage 3 chronic kidney disease N18.3 and Mild depression F32.0 [place] [id number] [place] [address] 09861- 8710 Sep, [place] [address] 7[address]- 6193 Sep, [place] [id number] [place] [address] 67887- 7217 17 Feb, [address] [address] Feb, [facility] [place] [facility] [address] [id number] [place] [address] 7628 Dec, [facility] [place] [facility] [address] [id number] [place] [address]- 2348 Dec, [facility] [place] [facility] [address] [id number] [place] [address]- 9401 Nov, [facility] [place] [facility] [address] [id number] [place] [address]- 0959 Nov, [facility] [place] [facility] [address] [id number] [place] [address]- 5999 Nov, [facility] [place] [facility] [address] [id number] [place] [address]- 7327 Nov, [facility] [place] [facility] [address] [id number] [place] [address]- 3801 October, [facility] [place] [facility] [address] [id number] [place] [address]- 8546 October, [facility] [place] [facility] [address] [id number] [place] [address]- 6528 Sep, [facility] [place] [facility] [address] [id number] [place] [address]- 4953 Sep, [facility] [place] [facility] [address] [id number] [place] [address]- 2199 Sep, [facility] [place] [facility] [address] [id number] [place] [address]- 5096 Sep, [facility] [place] [facility] [address] [id number] [place] [address]- 9756 Sep, [facility] [place] [facility] [address] [id number] [place] [address]- 8620 Aug, [facility] [place] [facility] [address] [id number] [place] [address]- 0208 Aug, [facility] [place] [facility] [address] [id number] [place] [address]- 2028 Aug, [facility] [place] [facility] [address] [id number] [place] [address]- 0238 Aug, [facility] [place] [facility] [address] [id number] [place] [address]- 9306 Aug, [facility] [place] [facility] [address] [id number] [place] [address]- 9489 Aug, [facility] [place] [facility] [address] [id number] [place] [address]- 6407 Aug, [facility] [place] [facility] [address] [id number] [place] [address]- 6544 Aug, [facility] [place] [facility] [address] [id number] [place] [address]- 8417 Jul, [facility] [place] [facility] [address] [id number] [place] [address]- 4578 Jul, [facility] [place] [facility] [address] [id number] [place] [address]- 3424 Jul, [facility] [place] [facility] [address] [id number] [place] [address]- 4617 Jul, [facility] [place] [facility] [address] [facility] [id number] [place] [address]- 6568 Jul, [facility] [place] [facility] [address] [id number] [place] [address]- 9988 Jul, [facility] [place] [facility] [address] [id number] [place] [address]- 1945 Jun, [facility] [place] [facility] [address] [id number] [place] [address]- 3977 Jun, [facility] [place] [facility] [address] [id number] [place] [address]- 9326 Jun, [facility] [place] [facility] [address] [id number] [place] [address]- 5491 Jun, [facility] [address] [id number] [place] [address]- 7063 Jun, [facility] [place] [facility] [address] [id number] [place] [address]- 9715 May, [facility] [place] [facility] [address] [id number] [place] [address]- 4105 May, [facility] [place] [facility] [address] [id number] [place] [address]- 6696 May, [facility] [place] [facility] [address] [id number] [place] [address]- 2456 May, [facility] [place] [facility] [address] [id number] [place] [address]- 5822 May, [facility] [place] [facility] [address] [id number] [place] [address]- 3176 Apr, [facility] [place] [facility] [address] [id number] [address]- 3856 Apr, [facility] [place] [facility] [address] [id number] [place] [address]- 7763 Mar, [facility] [place] [facility] [address] [id number], [place] [address]- 5344 Mar, [facility] [place] [facility] [address] [id number], [place] [address] 2548 Mar, [facility] [place] [facility] [address] [id number], [place] [address]- 2598 Mar, [facility] [place] [facility] [address] [id number] [place] [address] 2542 Feb, [facility] [place] [facility] [address] [id number], [place] [address]- 2846 Jan, [facility] [place] [facility] [address] [id number], [place] [address]- 2546 Jan, [facility] [place] [facility] [address] [id number] [place] [address]- 0981 Aug, [facility] [place] [facility] [address] [id number] [place] [address]- 9575 08 Jul, 2012 [facility] [place] [facility] [address] [id number] [place] [address]- 5976 Jun, [facility] [place] [facility] [address] [id number] [place] [address]- 3646 May, [facility] [place] [facility] [address] [id number] [place] [address]- 2635 May, [facility] [place] [facility] [address] [id number] [place] [address]- 4710 May, [facility] [place] [facility] [address] [id number] [place] [address]- 6684 May, [facility] [place] [facility] [address] [facility] [id number] [place] [address]- 8075 Apr, [facility] [place] [facility] [address] [id number] [place] [address]- 2203 Apr, [facility] [place] [facility] [address] [facility] [id number] [place] [address]- 9891 Mar, [facility] [place] [facility] [address] [facility] [id number] [place] [address]- 0912 30 Mar, 2012 [facility] [place] [facility] [address] [id number] [place] [address]- 4895 Mar, [facility] [place] [facility] [address] [id number] [place] [address]- 7800 Mar, [facility] [place] [facility] [address] [id number] [place] [address]- 4602 Mar, [facility] [place] [facility] [address] [facility] [id number] [place] [address]- 6872 Mar, [facility] [place] [facility] [address] [id number] [place] [address]- 5108 Dec, [facility] [id number] [address]- 2546 Dec, [facility] [address], [place] [address]- 2546 Nov, [facility] [address], [place] [address]- 2546 Nov, [facility] [address], [place] [address]- 2546 October, [facility] [address], [place] [address]- 2546 October, [facility] [address] [place] [address] 56448- 2546 Sep, [facility] [address], [place] [address]- 2546 Aug, [facility] [address], [place] [address]- 2546 Aug, [facility] [id number], [place] [address]- 2546 Aug, IMMUNIZATIONS No Known Immunizations SOCIAL HISTORY Never Assessed REASON FOR VISIT Requests return call PLAN OF CARE VITAL SIGNS MEDICATIONS Medication Instructions Dosage Frequency Start Date End Date Duration Status Ondansetron 4 MG Orally every 8 hrs prn nausea/vomiting 1 tablet on the tongue and allow to dissolve as needed Active RESULTS No Results PROCEDURES No Known procedures INSTRUCTIONS MEDICATIONS ADMINISTERED No Known Medications MEDICAL (GENERAL) HISTORY Type Description Date Medical History hyperlipidemia Medical History htn Medical History kidney failure stage 4 - dx in 2012 Medical History hypothyroidisim Medical History neuropathy Medical History COPD - See's Dr Burnette in [facility] Medical History Chronic Heart Failure Surgical History 2 cesareans Surgical History defibrillator - 2012 Hospitalization History pneumonia for a week 2016 Hospitalization History Hospitalized at [facility]- CHF, Chest pain. Dismissed 07/11/17 07/10/2017 Hospitalization History [facility] pneumonia, hypoxia-[facility] 07/30/17 Hospitalization History [facility]- [facility] PNA, Respiratory Failure. Transfered to [place] 10/25/2017 Hospitalization History CHF/COPD 11/2017
--- OUTSIDE RECORDS SUMMARY | 2018-03-06 23:12 | XMS REPORT ---
Author Author LEE SILVA [facility] Address [address] [place] [address] Care Team Providers Care Trend Investigator Name Role Phone LEE SILVA Unavailable PROBLEMS Type Condition ICD9-CM Code YWB69-BQ Code Onset Dates Condition Status SNOMED Code Problem Cardiomyopathy I42.9 Active 77694604 Problem Acute on chronic systolic CHF (congestive heart failure) I50.23 Active 184163303 Problem Chronic obstructive pulmonary disease, unspecified J44.9 Active 32487007 Problem Slow transit constipation K59.01 Active 99139540 Problem Acquired hypothyroidism E03.9 Active 981523944 Problem Chronic kidney disease, stage III (moderate) N18.3 Active 976453531 Problem Supplemental oxygen dependent Z99.81 Active 814330216621 Problem Chronic kidney disease, stage IV (severe) N18.4 Active 898051875 Problem COPD with acute lower respiratory infection J44.0 Active 485100760 Problem Mild depression F32.0 Active 803199266 Problem Anemia associated with chronic renal failure D63.1 Active 124899167 Problem Essential hypertension I10 Active 15327829 Problem Chronic systolic heart failure I50.22 Active 706531953 Problem Paroxysmal atrial fibrillation I48.0 Active 382165174 Problem Chronic obstructive pulmonary disease with (acute) exacerbation J44.1 Active 633942558 Problem Anxiety F41.9 Active 71629329 Problem Psychophysiological insomnia F51.04 Active 356626164 Problem Acute on chronic combined systolic and diastolic CHF (congestive heart failure) I50.43 Active 266895580592686 Problem Dependence on supplemental oxygen Z99.81 Active [id number] ALLERGIES No Information ENCOUNTERS Encounter Location Date Diagnosis [facility] [address] [place] [id number] Feb, Chronic kidney disease, stage IV (severe) N18.4 ; Chronic systolic heart failure I50.22 ; COPD with acute lower respiratory infection J44.0 ; Vertigo R42 ; Slow transit constipation K59.01 ; Hemorrhoids, unspecified hemorrhoid type K64.9 ; Acquired hypothyroidism E03.9 ; Candidiasis of breast B37.89 and Difficulty in urination R39.198 [place] [id number] [place] [address] Jan, Acute on chronic systolic CHF (congestive heart failure) I50.23 ; Acute kidney failure, unspecified N17.9 ; Chronic kidney disease, stage III (moderate) N18.3 and Supplemental oxygen dependent Z99.81 [place] [id number] [place] [address]- [address] Jan, Acute on chronic combined systolic and diastolic CHF ( congestive heart failure) I50.[address] [address] Jan, [facility] [address] [address] Jan, Irritant contact dermatitis due to cosmetics L24.3 ; Effusion of right wrist M25.431 and Pain in right wrist M25.[address] [address] Dec, Chronic systolic heart failure I50.22 ; Chronic obstructive pulmonary disease with (acute) exacerbation J44.1 ; CKD (chronic kidney disease ) stage 4, GFR 15-29 ml/min N18.4 ; Cardiomyopathy I42.9 ; Dependence on supplemental oxygen Z99.81 and Psychophysiological insomnia F51.04 [place] [id number] [place] [address]- [address]235 Dec, Anxiety F41.[address] [address] Dec, [address] [address] Dec, [address] [address] Dec, [facility] [address] [place] [id number] Dec, Encounter for examination for admission to residential Z02.2 ; Chronic obstructive pulmonary disease, unspecified J44.9 ; Paroxysmal atrial fibrillation I48.0 ; CKD (chronic kidney disease) stage 4, GFR 15-29 ml/min N18.4 and Cardiomyopathy I42.9 [place] [address] [address] Dec, [facility] [place] [id number] [address] Nov, Acute on chronic combined systolic and diastolic CHF ( congestive heart failure) I50.43 [place] [address] [address] Nov, [place] [address] [address] Nov, [place] [id number] [address] Nov, Chronic systolic heart failure I50.22 ; Paroxysmal atrial fibrillation I48.0 ; Chronic obstructive pulmonary disease with (acute) exacerbation J44.1 ; Chronic kidney disease, stage 4 (severe) N18.4 ; Pain in right hip M25.551 and Pain in left hip M25.552 [place] [address] [address] Nov, Chronic kidney disease, stage 4 (severe) N18.4 [facility] [place] [address] [address] Nov, [place] [address] [address] Nov, [place] [address] [address] October, Chronic obstructive pulmonary disease with (acute) exacerbation J44.1 ; Chronic systolic heart failure I50.22 ; CKD (chronic kidney disease) stage 4, GFR 15-29 ml/min N18.4 and Dependence on supplemental oxygen Z99.81 [place] [address] [address] October, [facility] [place] [id number] [place] [address]- 8760 October, [facility] [place] [id number] [place] [address] 26749- 2615 Sep, Chronic kidney disease, stage 4 (severe) N18.4 and Chronic kidney disease, stage IV (severe) N18.4 [place] [id number] [place] [address] 20067- 5650 Sep, Chronic kidney disease, stage 4 (severe) N18.4 [place] [id number] [place] [address] 04383- 6428 Sep, Anxiety F41.9 ; Paroxysmal atrial fibrillation I48.0 ; Chronic kidney disease, stage 4 (severe) N18.4 ; Chronic systolic heart failure I50.22 and Anemia associated with chronic renal failure D63.1 [place] [id number] [place] [address] 07052- 1336 Sep, [place] [id number] [place] [address] 74017- 2926 Aug, [place] [id number] [place] [address] 49132- 0562 Aug, [facility] [address] [place] [id number] Aug, Acute on chronic combined systolic and diastolic CHF (congestive heart failure) I50.43 ; Essential hypertension I10 ; CKD (chronic kidney disease) stage 4, GFR 15-29 ml/min N18.4 ; Paroxysmal atrial fibrillation I48.0 and Mild depression F32.0 [place] [id number] [place] [address]- 1294 Aug, [place] [id number] [place] [address] 50[address]- 1366 Aug, [facility] [place] [address] [address] Aug, Acute on chronic respiratory failure with hypoxia J96.21 ; Acute kidney failure, unspecified N17.9 ; Chronic kidney disease, stage 4 ( severe) N18.4 ; Acute on chronic combined systolic and diastolic CHF ( congestive heart failure) I50.43 ; Paroxysmal atrial fibrillation I48.0 and Cardiomyopathy, unspecified type I42.9 [facility] [place] [id number] [place] [address] 8[address]96- 2208 Aug, [facility] [place] [id number] [place] [address] 52548- 2075 Jul, [facility] [place] [id number] [place] [address] 19875- 1332 Jul, [place] [id number] [place] [address] 11976- 8885 Jul, [facility] [place] [id number] [place] [address] 89560- 2172 Jul, [facility] [place] [id number] [place] [address] 16949- 3228 Jul, Community acquired pneumonia of right lower lobe of lung J18.1 ; CKD (chronic kidney disease) stage 4, GFR 15-29 ml/min N18.4 and Shortness of breath R06.02 [facility] [id number] [place] [id number] 05 Jul, 2017 [facility] [place] [id number] [place] [address] 40700- 6953 Jun, Anxiety F41.9 [place] [id number] [place] [address] 80457- 6296 13 Apr, 2017 Anxiety F41.9 [facility] [place] [id number] [place] [address] 10245- 1328 10 Apr, 2017 Cough R05 and Pneumonia of right lower lobe due to infectious organism J18.1 [place] [id number] [place] [address] 63067- 2128 Apr, [place] [address] [address] Apr, Chronic kidney disease, stage IV (severe) N18.4 and COPD exacerbation J44.1 [place] [address] [address]- 7553 Feb, Chronic systolic heart failure I50.22 ; Essential hypertension I10 ; Anemia associated with chronic renal failure D63.1 and Chronic kidney disease, stage 4 (severe) N18.4 [place] [address] [address]- [address] Feb, Anxiety F41.9 [place] [address] 8[address]- [address] Feb, [place] [address] [address]- 9877 Feb, [place] [address] [address]- 36[address] Jan, Other fatigue R53.83 ; Otalgia of both ears H92.03 and Urinary urgency R39.15 [place] [id number] [place] [address] 28249- [address] Jan, Acute non-recurrent maxillary sinusitis J01.00 ; Chronic systolic heart failure I50.22 ; Stage 3 chronic kidney disease N18.3 and Mild depression F32.0 [place] [id number] [place] [address] 97031- 0356 Sep, [place] [address] 64[address]- 9258 Sep, [place] [id number] [place] [address] 69623- 6044 17 Feb, [address] [address]- [address]26 Feb, [facility] [place] [facility] [address] [id number] [place] [address]- 2566 Dec, [facility] [place] [facility] [address] [id number] [place] [address]- 0709 Dec, [facility] [place] [facility] [address] [id number] [place] [address]- 1954 Nov, [facility] [place] [facility] [address] [id number] [place] [address]- 1528 Nov, [facility] [place] [facility] [address] [id number] [place] [address]- 4594 Nov, [facility] [place] [facility] [address] [id number] [place] [address]- 0020 Nov, [facility] [place] [facility] [address] [id number] [place] [address]- 9598 October, [facility] [place] [facility] [address] [id number] [place] [address]- 5815 October, [facility] [place] [facility] [address] [id number] [place] [address]- 2035 Sep, [facility] [place] [facility] [address] [id number] [place] [address]- 3443 Sep, [facility] [place] [facility] [address] [id number] [place] [address]- 2879 Sep, [facility] [place] [facility] [address] [id number] [place] [address]- 7393 Sep, [facility] [place] [facility] [address] [id number] [place] [address]- 7001 Sep, [facility] [place] [facility] [address] [id number] [place] [address]- 0081 Aug, [facility] [place] [facility] [address] [id number] [place] [address]- 9609 Aug, [facility] [place] [facility] [address] [id number] [place] [address]- 2897 Aug, [facility] [place] [facility] [address] [id number] [place] [address]- 2815 Aug, [facility] [place] [facility] [address] [id number] [place] [address]- 8976 Aug, [facility] [place] [facility] [address] [id number] [place] [address]- 5448 Aug, [facility] [place] [facility] [address] [id number] [place] [address]- 4849 Aug, [facility] [place] [facility] [address] [id number] [place] [address]- 3271 Aug, [facility] [place] [facility] [address] [id number] [place] [address]- 2984 Jul, [facility] [place] [facility] [address] [id number] [place] [address]- 6261 Jul, [facility] [place] [facility] [address] [id number] [place] [address]- 7801 Jul, [facility] [place] [facility] [address] [id number] [place] [address]- 9357 Jul, [facility] [place] [facility] [address] [facility] [id number] [place] [address]- 6326 Jul, [facility] [place] [facility] [address] [id number] [place] [address]- 2384 Jul, [facility] [place] [facility] [address] [id number] [place] [address]- 3246 Jun, [facility] [place] [facility] [address] [id number] [place] [address]- 4976 Jun, [facility] [place] [facility] [address] [id number] [place] [address]- 4386 Jun, [facility] [place] [facility] [address] [id number] [place] [address]- 7740 Jun, [facility] [address] [id number] [place] [address]- 2807 Jun, [facility] [place] [facility] [address] [id number] [place] [address]- 4470 May, [facility] [place] [facility] [address] [id number] [place] [address]- 9397 May, [facility] [place] [facility] [address] [id number] [place] [address]- 1323 May, [facility] [place] [facility] [address] [id number] [place] [address]- 0436 May, [facility] [place] [facility] [address] [id number] [place] [address]- 1670 May, [facility] [place] [facility] [address] [id number] [place] [address]- 2270 Apr, [facility] [place] [facility] [address] [id number] [address]- 7885 Apr, [facility] [place] [facility] [address] [id number] [place] [address]- 5819 Mar, [facility] [place] [facility] [address] [id number] [address]- 1325 Mar, [facility] [place] [facility] [address] [id number] [address] 2544 Mar, [facility] [place] [facility] [address] [id number] [address]- 2330 Mar, [facility] [place] [facility] [address] [id number] [place] [address] 2540 Feb, [facility] [place] [facility] [address] [id number] [address]- 8636 Jan, [facility] [place] [facility] [address] [id number] [address]- 2546 Jan, [facility] [place] [facility] [address] [id number] [place] [address]- 4671 Aug, [facility] [place] [facility] [address] [id number] [place] [address]- 6372 08 Jul, 2012 [facility] [place] [facility] [address] [id number] [place] [address]- 3136 Jun, [facility] [place] [facility] [address] [id number] [place] [address]- 3444 May, [facility] [place] [facility] [address] [id number] [place] [address]- 3569 May, [facility] [place] [facility] [address] [id number] [place] [address]- 8705 May, [facility] [place] [facility] [address] [id number] [place] [address]- 7519 May, [facility] [place] [facility] [address] [facility] [id number] [place] [address]- 7882 Apr, [facility] [place] [facility] [address] [id number] [place] [address]- 7194 Apr, [facility] [place] [facility] [address] [facility] [id number] [place] [address]- 7679 Mar, [facility] [place] [facility] [address] [facility] [id number] [place] [address]- 9535 30 Mar, 2012 [facility] [place] [facility] [address] [id number] [place] [address]- 5329 Mar, [facility] [place] [facility] [address] [id number] [place] [address]- 6480 Mar, [facility] [place] [facility] [address] [id number] [place] [address]- 8938 Mar, [facility] [place] [facility] [address] [facility] [id number] [place] [address]- 6258 Mar, [facility] [place] [facility] [address] [id number] [place] [address]- 3352 Dec, [facility] [place] [id number] [address]- 2546 Dec, [facility] [place] [address] [address]- 2546 Nov, [facility] [place] [address] [address]- 2546 Nov, [facility] [place] [address] [address]- 2546 October, [facility] [place] [address] [address]- 2546 October, [facility] [place] [id number] [place] [address]36- 2546 Sep, [facility] [place] [address] [address]- 2546 Aug, [facility] [place] [address] [address]- 2546 Aug, [facility] [place] [id number] [address] 2546 Aug, IMMUNIZATIONS No Known Immunizations SOCIAL HISTORY Never Assessed REASON FOR VISIT Requests return call PLAN OF CARE VITAL SIGNS MEDICATIONS Unknown Medications RESULTS No Results PROCEDURES No Known procedures INSTRUCTIONS MEDICATIONS ADMINISTERED No Known Medications MEDICAL (GENERAL) HISTORY Type Description Date Medical History hyperlipidemia Medical History htn Medical History kidney failure stage 4 - dx in 2012 Medical History hypothyroidisim Medical History neuropathy Medical History COPD - See's Dr Burnette in [facility] Medical History Chronic Heart Failure Surgical History 2 cesareans Surgical History defibrillator - 2012 Hospitalization History pneumonia for a week 2017 Hospitalization History Hospitalized at [facility]- CHF, Chest pain. Dismissed 07/11/17 07/10/2017 Hospitalization History [facility] pneumonia, hypoxia-[facility] 07/30/17 Hospitalization History [facility]- [facility] PNA, Respiratory Failure. Transfered to [facility] 10/25/2017 Hospitalization History CHF/COPD 11/2017
--- OUTSIDE RECORDS SUMMARY | 2018-03-06 23:13 | XMS REPORT ---
Author Author LEE SILVA [facility] Address [address] [place] [address] Care Team Providers Care Telecommunications Consultant Name Role Phone LEE SILVA Unavailable PROBLEMS Type Condition ICD9-CM Code MIF42-IN Code Onset Dates Condition Status SNOMED Code Problem Cardiomyopathy I42.9 Active 64468237 Problem Acute on chronic systolic CHF (congestive heart failure) I50.23 Active 900164521 Problem Chronic obstructive pulmonary disease, unspecified J44.9 Active 53426214 Problem Slow transit constipation K59.01 Active 42031082 Problem Acquired hypothyroidism E03.9 Active 418939912 Problem Chronic kidney disease, stage III (moderate) N18.3 Active 529281100 Problem Supplemental oxygen dependent Z99.81 Active 500142761732 Problem Chronic kidney disease, stage IV (severe) N18.4 Active 622947929 Problem COPD with acute lower respiratory infection J44.0 Active 493689195 Problem Mild depression F32.0 Active 266825052 Problem Anemia associated with chronic renal failure D63.1 Active 269958725 Problem Essential hypertension I10 Active 47453736 Problem Chronic systolic heart failure I50.22 Active 581313943 Problem Paroxysmal atrial fibrillation I48.0 Active 616178782 Problem Chronic obstructive pulmonary disease with (acute) exacerbation J44.1 Active 291613205 Problem Anxiety F41.9 Active 44454599 Problem Psychophysiological insomnia F51.04 Active 539522038 Problem Acute on chronic combined systolic and diastolic CHF (congestive heart failure) I50.43 Active 981035819712521 Problem Dependence on supplemental oxygen Z99.81 Active [id number] ALLERGIES No Information ENCOUNTERS Encounter Location Date Diagnosis [facility] [address] [place] [id number] Feb, Chronic kidney disease, stage IV (severe) N18.4 ; Chronic systolic heart failure I50.22 ; COPD with acute lower respiratory infection J44.0 ; Vertigo R42 ; Slow transit constipation K59.01 ; Hemorrhoids, unspecified hemorrhoid type K64.9 ; Acquired hypothyroidism E03.9 ; Candidiasis of breast B37.89 and Difficulty in urination R39.198 [facility] [id number] [place] [address]228 Jan, Acute on chronic systolic CHF (congestive heart failure) I50.23 ; Acute kidney failure, unspecified N17.9 ; Chronic kidney disease, stage III (moderate) N18.3 and Supplemental oxygen dependent Z99.81 [facility] [id number] [place] [address]75- 9620 Jan, Acute on chronic combined systolic and diastolic CHF ( congestive heart failure) I50.[address] [address] Jan, [facility] [address] [address] Jan, Irritant contact dermatitis due to cosmetics L24.3 ; Effusion of right wrist M25.431 and Pain in right wrist M25.[address] [address] Dec, Chronic systolic heart failure I50.22 ; Chronic obstructive pulmonary disease with (acute) exacerbation J44.1 ; CKD (chronic kidney disease ) stage 4, GFR 15-29 ml/min N18.4 ; Cardiomyopathy I42.9 ; Dependence on supplemental oxygen Z99.81 and Psychophysiological insomnia F51.04 [facility] [id number] [place] [address]- 6648 Dec, Anxiety F41.[address] [address] Dec, [address] [address] Dec, [address] [address] Dec, [facility] [address] [place] [id number] Dec, Encounter for examination for admission to penitentiary Z02.2 ; Chronic obstructive pulmonary disease, unspecified J44.9 ; Paroxysmal atrial fibrillation I48.0 ; CKD (chronic kidney disease) stage 4, GFR 15-29 ml/min N18.4 and Cardiomyopathy I42.9 [facility] [address] [address] Dec, [facility] [place] [id number] [address] Nov, Acute on chronic combined systolic and diastolic CHF ( congestive heart failure) I50.43 [facility] [address] [address] Nov, [facility] [address] [address] Nov, [facility] [id number] [address] Nov, Chronic systolic heart failure I50.22 ; Paroxysmal atrial fibrillation I48.0 ; Chronic obstructive pulmonary disease with (acute) exacerbation J44.1 ; Chronic kidney disease, stage 4 (severe) N18.4 ; Pain in right hip M25.551 and Pain in left hip M25.552 [facility] [address] [address] Nov, Chronic kidney disease, stage 4 (severe) N18.4 [facility] [place] [address] [address] Nov, [facility] [id number] [address] Nov, [facility] [address] [address] October, Chronic obstructive pulmonary disease with (acute) exacerbation J44.1 ; Chronic systolic heart failure I50.22 ; CKD (chronic kidney disease) stage 4, GFR 15-29 ml/min N18.4 and Dependence on supplemental oxygen Z99.81 [facility] [address] [address] October, [facility] [place] [id number] [place] [address]287- 3324 October, [facility] [place] [id number] [place] [address] 14548- 7588 Sep, Chronic kidney disease, stage 4 (severe) N18.4 and Chronic kidney disease, stage IV (severe) N18.4 [facility] [id number] [place] [address] 22614- 3384 Sep, Chronic kidney disease, stage 4 (severe) N18.4 [facility] [id number] [place] [address]98- 3726 Sep, Anxiety F41.9 ; Paroxysmal atrial fibrillation I48.0 ; Chronic kidney disease, stage 4 (severe) N18.4 ; Chronic systolic heart failure I50.22 and Anemia associated with chronic renal failure D63.1 [facility] [id number] [place] [address] 05408- 5341 Sep, [facility] [id number] [place] [address] 50260- 8312 Aug, [facility] [id number] [place] [address] 38246- 5[address] Aug, [facility] [address] [place] [id number] Aug, Acute on chronic combined systolic and diastolic CHF (congestive heart failure) I50.43 ; Essential hypertension I10 ; CKD (chronic kidney disease) stage 4, GFR 15-29 ml/min N18.4 ; Paroxysmal atrial fibrillation I48.0 and Mild depression F32.0 [facility] [id number] [place] [address] 90846- 4006 Aug, [facility] [id number] [place] [address] 79813- 0434 Aug, [facility] [place] [address] [address] Aug, Acute on chronic respiratory failure with hypoxia J96.21 ; Acute kidney failure, unspecified N17.9 ; Chronic kidney disease, stage 4 ( severe) N18.4 ; Acute on chronic combined systolic and diastolic CHF ( congestive heart failure) I50.43 ; Paroxysmal atrial fibrillation I48.0 and Cardiomyopathy, unspecified type I42.9 [facility] [place] [id number] [place] [address] 85287- 5553 Aug, [facility] [place] [id number] [place] [address] 93674- 6221 Jul, [facility] [place] [id number] [place] [address] 91859- 3330 Jul, [facility] [id number] [place] [address] 76663- 8838 Jul, [facility] [place] [id number] [place] [address] 67915- 2494 Jul, [facility] [place] [id number] [place] [address] 09857- 3033 Jul, Community acquired pneumonia of right lower lobe of lung J18.1 ; CKD (chronic kidney disease) stage 4, GFR 15-29 ml/min N18.4 and Shortness of breath R06.02 [facility] [id number] [place] [id number] Jul, 2017 [facility] [place] [id number] [place] [address] 40919- 3688 Jun, Anxiety F41.9 [facility] [id number] [place] [address] 11993- 2116 13 Apr, 2017 Anxiety F41.9 [facility] [place] [address] [place] [address] 11874- 2829 10 Apr, 2017 Cough R05 and Pneumonia of right lower lobe due to infectious organism J18.1 [facility] [id number] [place] [address] 82509- 1047 Apr, [facility] [address] [address] Apr, Chronic kidney disease, stage IV (severe) N18.4 and COPD exacerbation J44.1 [facility] [address] [address]- 7999 Feb, Chronic systolic heart failure I50.22 ; Essential hypertension I10 ; Anemia associated with chronic renal failure D63.1 and Chronic kidney disease, stage 4 (severe) N18.4 [facility] [address] [address]- 5277 Feb, Anxiety F41.9 [facility] [address] 44069- 9012 Feb, [facility] [address] 35[address]- 2048 Feb, [facility] [address] [address]- 8335 Jan, Other fatigue R53.83 ; Otalgia of both ears H92.03 and Urinary urgency R39.15 [place] [id number] [place] [address] 48134- 1462 Jan, Acute non-recurrent maxillary sinusitis J01.00 ; Chronic systolic heart failure I50.22 ; Stage 3 chronic kidney disease N18.3 and Mild depression F32.0 [facility] [id number] [place] [address] 18075- 1953 Sep, [facility] [address] 39284- 3980 Sep, [facility] [id number] [place] [address] 91557- 2395 17 Feb, [address] [address]- 3686 Feb, [facility] [place] [facility] [address] [id number] [place] [address]- 6806 Dec, [facility] [place] [facility] [address] [id number] [place] [address]- 9584 Dec, [facility] [place] [facility] [address] [id number] [place] [address]- 2394 Nov, [facility] [place] [facility] [address] [id number] [place] [address]- 2315 Nov, [facility] [place] [facility] [address] [id number] [place] [address]- 1661 Nov, [facility] [place] [facility] [address] [id number] [place] [address]- 5484 Nov, [facility] [place] [facility] [address] [id number] [place] [address]- 6017 October, [facility] [place] [facility] [address] [id number] [place] [address]- 8001 October, [facility] [place] [facility] [address] [id number] [place] [address]- 6572 Sep, [facility] [place] [facility] [address] [id number] [place] [address]- 0041 Sep, [facility] [place] [facility] [address] [id number] [place] [address]- 0064 Sep, [facility] [place] [facility] [address] [id number] [place] [address]- 0032 Sep, [facility] [place] [facility] [address] [id number] [place] [address]- 6758 Sep, [facility] [place] [facility] [address] [id number] [place] [address]- 9466 Aug, [facility] [place] [facility] [address] [id number] [place] [address]- 0012 Aug, [facility] [place] [facility] [address] [id number] [place] [address]- 3554 Aug, [facility] [place] [facility] [address] [id number] [place] [address]- 7237 Aug, [facility] [place] [facility] [address] [id number] [place] [address]- 1176 Aug, [facility] [place] [facility] [address] [id number] [place] [address]- 3486 Aug, [facility] [place] [facility] [address] [id number] [place] [address]- 4932 Aug, [facility] [place] [facility] [address] [id number] [place] [address]- 2778 Aug, [facility] [place] [facility] [address] [id number] [place] [address]- 2269 Jul, [facility] [place] [facility] [address] [id number] [place] [address]- 0742 Jul, [facility] [place] [facility] [address] [id number] [place] [address]- 8405 Jul, [facility] [place] [facility] [address] [id number] [place] [address]- 3291 Jul, [facility] [place] [facility] [address] [facility] [id number] [place] [address]- 3730 Jul, [facility] [place] [facility] [address] [id number] [place] [address]- 0610 Jul, [facility] [place] [facility] [address] [id number] [place] [address]- 1790 Jun, [facility] [place] [facility] [address] [id number] [place] [address]- 9565 Jun, [facility] [place] [facility] [address] [id number] [place] [address]- 4166 Jun, [facility] [place] [facility] [address] [id number] [place] [address]- 3596 Jun, [facility] [address] [id number] [place] [address]- 7946 Jun, [facility] [place] [facility] [address] [id number] [place] [address]- 8418 May, [facility] [place] [facility] [address] [id number] [place] [address]- 3163 May, [facility] [place] [facility] [address] [id number] [place] [address]- 3618 May, [facility] [place] [facility] [address] [id number] [place] [address]- 2741 May, [facility] [place] [facility] [address] [id number] [place] [address]- 5949 May, [facility] [place] [facility] [address] [id number] [place] [address]- 0736 Apr, [facility] [place] [facility] [address] [id number] [address]- 2875 Apr, [facility] [place] [facility] [address] [id number] [place] [address]- 8582 Mar, [facility] [place] [facility] [address] [id number] [address]- 8737 Mar, [facility] [place] [facility] [address] [id number] [address] 2540 Mar, [facility] [place] [facility] [address] [id number] [address]- 9720 Mar, [facility] [place] [facility] [address] [id number] [place] [address] 2541 Feb, [facility] [place] [facility] [address] [id number] [address]- 3796 Jan, [facility] [place] [facility] [address] [id number] [address]- 2546 Jan, [facility] [place] [facility] [address] [id number] [place] [address]- 1873 Aug, [facility] [place] [facility] [address] [id number] [place] [address]- 8512 08 Jul, 2012 [facility] [place] [facility] [address] [id number] [place] [address]- 2176 Jun, [facility] [place] [facility] [address] [id number] [place] [address]- 2941 May, [facility] [place] [facility] [address] [id number] [place] [address]- 4971 May, [facility] [place] [facility] [address] [id number] [place] [address]- 7806 May, [facility] [place] [facility] [address] [id number] [place] [address]- 2735 May, [facility] [place] [facility] [address] [facility] [id number] [place] [address]- 0362 Apr, [facility] [place] [facility] [address] [id number] [place] [address]- 2101 Apr, [facility] [place] [facility] [address] [facility] [id number] [place] [address]- 1228 Mar, [facility] [place] [facility] [address] [facility] [id number] [place] [address]- 9903 30 Mar, 2012 [facility] [place] [facility] [address] [id number] [place] [address]- 0317 Mar, [facility] [place] [facility] [address] [id number] [place] [address]- 3353 Mar, [facility] [place] [facility] [address] [id number] [place] [address]- 1361 Mar, [facility] [place] [facility] [address] [facility] [id number] [place] [address]- 2451 Mar, [facility] [place] [facility] [address] [id number] [place] [address]- 0545 Dec, [facility] [place] [id number] [address]- 2546 Dec, [facility] [place] [address] [address]- 2546 Nov, [facility] [place] [address] [address]- 2546 Nov, [facility] [place] [address] [address]- 2546 October, [facility] [place] [address] [address]- 2546 October, [facility] [place] [id number] [place] [address] 77007- 2546 Sep, [facility] [place] [address] [address]- 2546 Aug, [facility] [place] [address] [address]- 2546 Aug, [facility] [place] [id number] [address]- 2546 Aug, IMMUNIZATIONS No Known Immunizations SOCIAL HISTORY Never Assessed REASON FOR VISIT [place] Admission PLAN OF CARE VITAL SIGNS MEDICATIONS Unknown Medications RESULTS No Results PROCEDURES No Known procedures INSTRUCTIONS MEDICATIONS ADMINISTERED No Known Medications MEDICAL (GENERAL) HISTORY Type Description Date Medical History hyperlipidemia Medical History htn Medical History kidney failure stage 4 - dx in 2012 Medical History hypothyroidisim Medical History neuropathy Medical History COPD - See's Dr Burnette in [facility] Medical History Chronic Heart Failure Surgical History 2 [facility] Surgical History defibrillator - 2012 Hospitalization History pneumonia for a week 2017 Hospitalization History Hospitalized at [facility]- CHF, Chest pain. Dismissed 07/11/17 07/10/2017 Hospitalization History [facility] pneumonia, hypoxia-[facility] 07/30/17 Hospitalization History [facility]- [facility] PNA, Respiratory Failure. Transfered to [place] 10/25/2017 Hospitalization History CHF/COPD 11/2017
--- OUTSIDE RECORDS SUMMARY | 2018-03-06 23:13 | XMS REPORT ---
Author Author TEAGAN VERNON Organization [facility] Address [address] [place] [address] Care Team Providers Care Vulcanizer Name Role Phone TEAGAN VERNON Unavailable PROBLEMS Type Condition ICD9-CM Code HPE38-ZM Code Onset Dates Condition Status SNOMED Code Problem Chronic obstructive pulmonary disease with (acute) exacerbation J44.1 Active 167284577 Problem Dependence on supplemental oxygen Z99.81 Active 506006388696 Problem Psychophysiological insomnia F51.04 Active 447032213 Problem Chronic kidney disease, stage III (moderate) N18.3 Active 354204534 Problem Supplemental oxygen dependent Z99.81 Active 241504644505 Problem Cardiomyopathy I42.9 Active 20815540 Problem Chronic obstructive pulmonary disease, unspecified J44.9 Active 56093416 Problem Acute on chronic systolic CHF (congestive heart failure) I50.23 Active 362747248 Problem CKD (chronic kidney disease) stage 4, GFR 15-29 ml/min N18.4 Active 879934059 Problem Essential hypertension I10 Active 48927124 Problem Anemia associated with chronic renal failure D63.1 Active 473301353 Problem Anxiety F41.9 Active 92544935 Problem Chronic systolic heart failure I50.22 Active 436344303 Problem Acute on chronic combined systolic and diastolic CHF (congestive heart failure) I50.43 Active 442030342567897 Problem Mild depression F32.0 Active 606687740 Problem Paroxysmal atrial fibrillation I48.0 Active 114410659 ALLERGIES No Information ENCOUNTERS Encounter Location Date Diagnosis [facility] [id number] [address] Jan, Acute on chronic systolic CHF (congestive heart failure) I50.23 ; Acute kidney failure, unspecified N17.9 ; Chronic kidney disease, stage III (moderate) N18.3 and Supplemental oxygen dependent Z99.81 [facility] [id number] [place] [address] 06128- 5679 Jan, Acute on chronic combined systolic and diastolic CHF ( congestive heart failure) I50.43 [facility] [id number] [place] [address] 67433- 2717 Jan, [facility] [id number] [place] [address] 15668 -1377 Jan, Irritant contact dermatitis due to cosmetics L24.3 ; Effusion of right wrist M25.431 and Pain in right wrist M25.531 [facility] [id number] [place] [address] 39657- 2675 Dec, Chronic systolic heart failure I50.22 ; Chronic obstructive pulmonary disease with (acute) exacerbation J44.1 ; CKD (chronic kidney disease ) stage 4, GFR 15-29 ml/min N18.4 ; Cardiomyopathy I42.9 ; Dependence on supplemental oxygen Z99.81 and Psychophysiological insomnia F51.04 [facility] [id number] [place] [address] 69156- 2327 Dec, Anxiety F41.9 [facility] [id number] [place] [address] 05469- 7927 Dec, [facility] [id number] [place] [address] 89445- 5164 Dec, [facility] [id number] [place] [address] 71155- 9047 Dec, [facility] [address] [place] [id number] Dec, Encounter for examination for admission to [facility] Z02.2 ; Chronic obstructive pulmonary disease, unspecified J44.9 ; Paroxysmal atrial fibrillation I48.0 ; CKD (chronic kidney disease) stage 4, GFR 15-29 ml/min N18.4 and Cardiomyopathy I42.9 [facility] [id number] [address] 03138- 6225 Dec, [facility] [id number] [place] [address] 54387- 3878 Nov, Acute on chronic combined systolic and diastolic CHF ( congestive heart failure) I50.43 [facility] [address] [address] Nov, [facility] [address] [address] 1792 Nov, [facility] [id number] [place] [address] 90225- 2143 Nov, Chronic systolic heart failure I50.22 ; Paroxysmal atrial fibrillation I48.0 ; Chronic obstructive pulmonary disease with (acute) exacerbation J44.1 ; Chronic kidney disease, stage 4 (severe) N18.4 ; Pain in right hip M25.551 and Pain in left hip M25.552 [facility] [address] [address] Nov, Chronic kidney disease, stage 4 (severe) N18.4 [facility] [address] [address] 1341 Nov, [facility] [address] [address] 5[address] Nov, [facility] [address] [address] 78[address] October, Chronic obstructive pulmonary disease with (acute) exacerbation J44.1 ; Chronic systolic heart failure I50.22 ; CKD (chronic kidney disease) stage 4, GFR 15-29 ml/min N18.4 and Dependence on supplemental oxygen Z99.81 [facility] [address] [address] 4[address] October, [facility] [address] [address] 6938 October, [facility] [address] [address] 164[address] Sep, Chronic kidney disease, stage 4 (severe) N18.4 and Chronic kidney disease, stage IV (severe) N18.4 [facility] [address] [address] 3[address] 20 Sep, 2017 Chronic kidney disease, stage 4 (severe) N18.4 [facility] [id number] [address] 24749- 7318 17 Sep, 2017 Anxiety F41.9 ; Paroxysmal atrial fibrillation I48.0 ; Chronic kidney disease, stage 4 (severe) N18.4 ; Chronic systolic heart failure I50.22 and Anemia associated with chronic renal failure D63.1 [facility] [id number] [address] 7686 Sep, [facility] [id number] [address] 37624- 1925 Aug, [facility] [id number] [place] [address] 32028- 6259 Aug, [facility] [address] [place] [id number] Aug, Acute on chronic combined systolic and diastolic CHF (congestive heart failure) I50.43 ; Essential hypertension I10 ; CKD (chronic kidney disease) stage 4, GFR 15-29 ml/min N18.4 ; Paroxysmal atrial fibrillation I48.0 and Mild depression F32.0 [facility] [address] [address] 4969 Aug, [facility] [address] [address] 1783 Aug, [facility] [id number] [address] 22211- 8628 Aug, Acute on chronic respiratory failure with hypoxia J96.21 ; Acute kidney failure, unspecified N17.9 ; Chronic kidney disease, stage 4 ( severe) N18.4 ; Acute on chronic combined systolic and diastolic CHF ( congestive heart failure) I50.43 ; Paroxysmal atrial fibrillation I48.0 and Cardiomyopathy, unspecified type I42.9 [facility] [address] [address] 90[address] Aug, [place] [address] [address]- 7375 14 Jul, 2017 [facility] [id number] [place] [address] 62886- 3612 Jul, [facility] [id number] [address] 88341- 7431 Jul, [facility] [id number] [address] 90687- 2660 Jul, [facility] [id number] [address] 86489- 9489 Jul, Community acquired pneumonia of right lower lobe of lung J18.1 ; CKD (chronic kidney disease) stage 4, GFR 15-29 ml/min N18.4 and Shortness of breath R06.02 [facility] [id number] [address] [id number] Jul, [facility] [id number] [place] [address] 10261- 1267 Jun, Anxiety F41.9 [facility] [id number] [address] 40988- 6118 13 Apr, 2017 Anxiety F41.9 [facility] [id number] [address] 78711- 2319 10 Apr, 2017 Cough R05 and Pneumonia of right lower lobe due to infectious organism J18.1 [facility] [address] [address] 47407- 4384 07 Apr, 2017 [facility] [address] [address] 99908- 9453 06 Apr, 2017 Chronic kidney disease, stage IV (severe) N18.4 and COPD exacerbation J44.1 [facility] [address] [address] 6258 28 Feb, 2017 Chronic systolic heart failure I50.22 ; Essential hypertension I10 ; Anemia associated with chronic renal failure D63.1 and Chronic kidney disease, stage 4 (severe) N18.4 [facility] [id number] [place] [address] 55649- 6876 Feb, Anxiety F41.9 [facility] [id number] [address] 41614- 9621 Feb, [facility] [id number] [address] 41649- 6617 Feb, [facility] [id number] [address] 06116- 0882 Jan, Other fatigue R53.83 ; Otalgia of both ears H92.03 and Urinary urgency R39.15 [facility] [id number] [address] 04830- 4843 Jan, Acute non-recurrent maxillary sinusitis J01.00 ; Chronic systolic heart failure I50.22 ; Stage 3 chronic kidney disease N18.3 and Mild depression F32.0 [facility] [id number] [address] 43583- 0732 Sep, [facility] [id number] [address] 31740- 7967 Sep, [facility] [id number] [address] 79420- 4856 Feb, [facility] [id number] [address] 00114- 2794 Feb, [facility] [id number] [place] [address] 50909- 8387 Dec, [facility] [id number] [address] 68437- 1532 Dec, [facility] [id number] [place] [address] 74491- 9062 Nov, [facility] [id number] [place] [address] 33721- 4232 Nov, [facility] [place] [facility] [address] [id number] [place] [address]- 2825 Nov, [facility] [place] [facility] [address] [id number] [place] [address]- 7481 Nov, [facility] [place] [facility] [address] [id number] [place] [address]- 3937 October, [facility] [place] [facility] [address] [id number] [place] [address]- 1510 October, [facility] [place] [facility] [address] [id number] [place] [address]- 2863 Sep, [facility] [place] [facility] [address] [id number] [place] [address]- 9501 Sep, [facility] [place] [facility] [address] [id number] [place] [address]- 1050 Sep, [facility] [place] [facility] [address] [id number] [place] [address]- 1848 Sep, [facility] [place] [facility] [address] [id number] [place] [address]- 6455 Sep, [facility] [place] [facility] [address] [id number] [place] [address]- 2978 Aug, [facility] [place] [facility] [address] [id number] [place] [address]- 3410 31 Aug, 2013 [facility] [place] [facility] [address] [id number] [place] [address]- 7443 27 Aug, 2013 [facility] [place] [facility] [address] [id number] [place] [address]- 6032 Aug, [facility] [place] [facility] [address] [id number] [place] [address]- 0358 21 Aug, 2013 [facility] [place] [facility] [address] [id number] [place] [address]- 6666 17 Aug, 2013 [facility] [place] [facility] [address] [id number] [place] [address]- 9590 Aug, [facility] [place] [facility] [address] [id number] [place] [address]14 Aug, [facility] [place] [facility] [address] [id number] [place] [address]- 3284 Jul, [facility] [place] [facility] [address] [facility] [id number] [place] [address]- 7098 Jul, [facility] [place] [facility] [address] [id number] [place] [address]- 5833 Jul, [facility] [place] [facility] [address] [id number] [place] [address]- 0335 Jul, [facility] [place] [facility] [address] [id number] [place] [address]- 1413 Jul, [facility] [place] [facility] [address] [id number] [place] [address]- 4248 Jul, [facility] [place] [facility] [address] [id number] [place] [address]- 3142 Jun, [facility] [place] [facility] [address] [id number] [place] [address]- 7493 Jun, [facility] [place] [facility] [address] [facility] [id number] [place] [address]- 5674 Jun, [facility] [place] [facility] [address] [id number] [place] [address]- 1010 Jun, [facility] [place] [facility] [address] [id number] [place] [address]- 9821 Jun, [facility] [place] [facility] [address] [id number] [place] [address]- 2386 May, [facility] [place] [facility] [address] [id number] [place] [address]- 7976 May, [facility] [place] [facility] [address] [facility] [id number] [place] [address]- 2376 May, [facility] [place] [facility] [address] [id number] [place] [address]- 2546 May, [facility] [address] [id number] [place] [address]- 5996 May, [facility] [place] [facility] [address] [id number] [place] [address]- 2546 Apr, [facility] [place] [facility] [address] [id number] [place] [address]- 2546 Apr, [facility] [place] [facility] [address] [id number] [place] [address]- 2546 Mar, [facility] [place] [facility] [address] [id number] [place] [address]- 2546 Mar, [facility] [place] [facility] [address] [id number] [place] [address]- 2546 Mar, [facility] [place] [facility] [address] [id number] [place] [address]- 2546 Mar, [facility] [place] [facility] [address] [id number] [place] [address]- 1692 Feb, [facility] [place] [facility] [address] [id number] [place] [address]- 2546 Jan, [facility] [place] [facility] [address] [id number] [place] [address]- 3586 Jan, [facility] [place] [facility] [address] [id number] [place] [address]- 2546 Aug, [facility] [place] [facility] [address] [id number] [place] [address]- 2546 Jul, [facility] [place] [facility] [address] [id number] [place] [address]- 2546 Jun, [facility] [place] [facility] [address] [id number] [place] [address]- 2546 May, [facility] [place] [facility] [address] [id number] [place] [address]- 6904 May, [facility] [place] [facility] [address] [id number] [place] [address]- 3038 May, [facility] [place] [facility] [address] [id number] [place] [address]- 4738 May, [facility] [place] [facility] [address] [id number] [place] [address]- 6277 Apr, [facility] [place] [facility] [address] [id number] [place] [address]- 3920 Apr, [facility] [place] [facility] [address] [id number] [place] [address]- 4333 Mar, [facility] [place] [facility] [address] [id number] [place] [address]- 0094 Mar, [facility] [place] [facility] [address] [facility] [id number] [place] [address]- 9002 Mar, [facility] [place] [facility] [address] [id number] [place] [address]- 7574 Mar, [facility] [place] [facility] [address] [id number] [place] [address]- 5126 Mar, [facility] [place] [facility] [address] [facility] [id number] [place] [address]- 0671 Mar, [facility] [place] [facility] [address] [id number] [place] [address]- 7263 Dec, [facility] [place] [facility] [address] [id number] [place] [address]- 2412 Dec, [facility] [place] [facility] [address] [facility] [id number] [place] [address]- 7883 Nov, [facility] [place] [facility] [address] [id number] [place] [address]- 9465 Nov, [facility] [place] [facility] [address] [facility] [id number] [place] [address]- 3226 October, [facility] [place] [facility] [address] [facility] [id number] [place] [address]- 2546 October, [facility] [address] [facility] [id number] [place] [address]- 2546 Sep, [facility] [address] [facility] [id number] [place] [address]- 2546 Aug, [facility] [address] [facility] [id number] [place] [address]- 2546 Aug, [facility] [address] [facility] [id number] [place] [address]- 2546 Aug, IMMUNIZATIONS No Known Immunizations SOCIAL HISTORY Never Assessed REASON FOR VISIT Refill request PLAN OF CARE VITAL SIGNS MEDICATIONS Medication Instructions Dosage Frequency Start Date End Date Duration Status Ipratropium-Albuterol 0.5-2.5 (3) MG/3ML Inhalation every 6 hrs 3 ml 6h 30 days Active RESULTS No Results PROCEDURES No Known procedures INSTRUCTIONS MEDICATIONS ADMINISTERED No Known Medications MEDICAL (GENERAL) HISTORY Type Description Date Medical History hyperlipidemia Medical History htn Medical History kidney failure stage 4 - dx in 2012 Medical History hypothyroidisim Medical History neuropathy Medical History COPD - See's Dr Burnette in [facility] Medical History Chronic Heart Failure Surgical History 2 cesareans Surgical History defibrillator - 2012 Hospitalization History pneumonia for a week 2016 Hospitalization History Hospitalized at [facility]- CHF, Chest pain. Dismissed 07/11/17 07/10/2017 Hospitalization History [facility] pneumonia, hypoxia-[facility] 07/30/[address] [facility]- [facility] PNA, Respiratory Failure. Transfered to [place] 10/25/2017 Hospitalization History CHF/COPD 11/2017
--- OUTSIDE RECORDS SUMMARY | 2018-03-06 23:13 | XMS REPORT ---
Author Author TEAGAN VERNON Organization [facility] Address [address] [place] [address] Care Team Providers Care Ux Visual Designer Name Role Phone TEAGAN VERNON Unavailable PROBLEMS Type Condition ICD9-CM Code ROJ80-YE Code Onset Dates Condition Status SNOMED Code Problem Chronic obstructive pulmonary disease with (acute) exacerbation J44.1 Active 720179253 Problem Dependence on supplemental oxygen Z99.81 Active 413885771415 Problem Psychophysiological insomnia F51.04 Active 121459982 Problem Chronic kidney disease, stage III (moderate) N18.3 Active 968178440 Problem Supplemental oxygen dependent Z99.81 Active 067632669575 Problem Cardiomyopathy I42.9 Active 06863145 Problem Chronic obstructive pulmonary disease, unspecified J44.9 Active 26657700 Problem Acute on chronic systolic CHF (congestive heart failure) I50.23 Active 854809411 Problem CKD (chronic kidney disease) stage 4, GFR 15-29 ml/min N18.4 Active 116198046 Problem Essential hypertension I10 Active 22451438 Problem Anemia associated with chronic renal failure D63.1 Active 606449163 Problem Anxiety F41.9 Active 24840329 Problem Chronic systolic heart failure I50.22 Active 071163913 Problem Acute on chronic combined systolic and diastolic CHF (congestive heart failure) I50.43 Active [id number] Problem Mild depression F32.0 Active 106149791 Problem Paroxysmal atrial fibrillation I48.0 Active 726747684 ALLERGIES No Information ENCOUNTERS Encounter Location Date Diagnosis [facility] [id number], [place] [address] Jan, Acute on chronic systolic CHF (congestive heart failure) I50.23 ; Acute kidney failure, unspecified N17.9 ; Chronic kidney disease, stage III (moderate) N18.3 and Supplemental oxygen dependent Z99.81 [facility] [id number] [place] [address] 26998- 4067 Jan, Acute on chronic combined systolic and diastolic CHF ( congestive heart failure) I50.43 [facility] [id number] [place] [address] 31231- 7654 Jan, [facility] [id number] [place] [address] 09400 -9858 Jan, Irritant contact dermatitis due to cosmetics L24.3 ; Effusion of right wrist M25.431 and Pain in right wrist M25.531 [facility] [id number] [place] [address] 38174- 5714 Dec, Chronic systolic heart failure I50.22 ; Chronic obstructive pulmonary disease with (acute) exacerbation J44.1 ; CKD (chronic kidney disease ) stage 4, GFR 15-29 ml/min N18.4 ; Cardiomyopathy I42.9 ; Dependence on supplemental oxygen Z99.81 and Psychophysiological insomnia F51.04 [facility] [id number] [place] [address] 56598- 8632 Dec, Anxiety F41.9 [facility] [id number] [place] [address] 16161- 8491 Dec, [facility] [id number] [place] [address] 42899- 1440 Dec, [facility] [id number] [place] [address] 23014- 5295 Dec, [facility] [address] [place] [id number] Dec, Encounter for examination for admission to long-term Z02.2 ; Chronic obstructive pulmonary disease, unspecified J44.9 ; Paroxysmal atrial fibrillation I48.0 ; CKD (chronic kidney disease) stage 4, GFR 15-29 ml/min N18.4 and Cardiomyopathy I42.9 [facility] [id number] [place] [address] 65650- 4648 Dec, [facility] [id number] [place] [address] 84534- 1564 Nov, Acute on chronic combined systolic and diastolic CHF ( congestive heart failure) I50.43 [facility] [address], [place] [address] 8[address] Nov, [facility] [address], [place] [address] Nov, [facility] [id number] [place] [address] 52865- 1707 Nov, Chronic systolic heart failure I50.22 ; Paroxysmal atrial fibrillation I48.0 ; Chronic obstructive pulmonary disease with (acute) exacerbation J44.1 ; Chronic kidney disease, stage 4 (severe) N18.4 ; Pain in right hip M25.551 and Pain in left hip M25.552 [facility] [address], [place] [address] Nov, Chronic kidney disease, stage 4 (severe) N18.4 [facility] [address], [place] [address] 59[address] Nov, [facility] [address], [place] [address] 8[address] Nov, [facility] [address], [place] [address] October, Chronic obstructive pulmonary disease with (acute) exacerbation J44.1 ; Chronic systolic heart failure I50.22 ; CKD (chronic kidney disease) stage 4, GFR 15-29 ml/min N18.4 and Dependence on supplemental oxygen Z99.81 [facility] [address], [place] [address] October, [facility] [address], [place] [address] 4[address] October, [facility] [address], [place] [address] Sep, Chronic kidney disease, stage 4 (severe) N18.4 and Chronic kidney disease, stage IV (severe) N18.4 [facility] [address], [place] [address] 97[address] 20 Sep, 2017 Chronic kidney disease, stage 4 (severe) N18.4 [facility] [id number] [place] [address] 93919- 2606 17 Sep, 2017 Anxiety F41.9 ; Paroxysmal atrial fibrillation I48.0 ; Chronic kidney disease, stage 4 (severe) N18.4 ; Chronic systolic heart failure I50.22 and Anemia associated with chronic renal failure D63.1 [facility] [id number], [place] [address] 72[address] Sep, [facility] [id number] [place] [address] 06837- 3942 Aug, [facility] [id number] [place] [address] 43172- 0878 Aug, [facility] [address] [place] [id number] Aug, Acute on chronic combined systolic and diastolic CHF (congestive heart failure) I50.43 ; Essential hypertension I10 ; CKD (chronic kidney disease) stage 4, GFR 15-29 ml/min N18.4 ; Paroxysmal atrial fibrillation I48.0 and Mild depression F32.0 [facility] [address], [place] [address] Aug, [facility] [address], [place] [address] 3351 Aug, [facility] [id number] [place] [address] 07014- 4096 Aug, Acute on chronic respiratory failure with hypoxia J96.21 ; Acute kidney failure, unspecified N17.9 ; Chronic kidney disease, stage 4 ( severe) N18.4 ; Acute on chronic combined systolic and diastolic CHF ( congestive heart failure) I50.43 ; Paroxysmal atrial fibrillation I48.0 and Cardiomyopathy, unspecified type I42.9 [facility] [address], [place] [address] Aug, [place] [address], [place] [address] 2147 14 Jul, 2017 [facility] [id number] [place] [address] 22672- 0303 Jul, [facility] [id number] [place] [address] 36869- 2822 Jul, [facility] [id number] [place] [address] 11984- 1752 Jul, [facility] [id number] [place] [address] 59554- 3872 Jul, Community acquired pneumonia of right lower lobe of lung J18.1 ; CKD (chronic kidney disease) stage 4, GFR 15-29 ml/min N18.4 and Shortness of breath R06.02 [facility] [id number] [place] [address] [id number] Jul, [facility] [id number] [place] [address] 32862- 7949 Jun, Anxiety F41.9 [facility] [id number] [place] [address] 09216- 8454 13 Apr, 2017 Anxiety F41.9 [facility] [id number] [place] [address] 61574- 5996 10 Apr, 2017 Cough R05 and Pneumonia of right lower lobe due to infectious organism J18.1 [facility] [id number] [place] [address] 21183- 9206 07 Apr, 2017 [facility] [id number] [place] [address] 13549- 9107 06 Apr, 2017 Chronic kidney disease, stage IV (severe) N18.4 and COPD exacerbation J44.1 [facility] [address], [place] [address] 9254 28 Feb, 2017 Chronic systolic heart failure I50.22 ; Essential hypertension I10 ; Anemia associated with chronic renal failure D63.1 and Chronic kidney disease, stage 4 (severe) N18.4 [facility] [id number] [place] [address] 43642- 5833 Feb, Anxiety F41.9 [facility] [id number] [place] [address] 14629- 6276 Feb, [facility] [id number] [place] [address] 46574- 3383 Feb, [facility] [id number] [place] [address] 74981- 6810 Jan, Other fatigue R53.83 ; Otalgia of both ears H92.03 and Urinary urgency R39.15 [facility] [id number] [place] [address] 13092- 6823 Jan, Acute non-recurrent maxillary sinusitis J01.00 ; Chronic systolic heart failure I50.22 ; Stage 3 chronic kidney disease N18.3 and Mild depression F32.0 [facility] [id number] [place] [address] 44459- 3222 Sep, [facility] [id number] [place] [address] 88238- 9961 Sep, [facility] [id number] [place] [address] 20740- 6737 Feb, [facility] [id number] [place] [address] 58498- 5121 Feb, [facility] [id number] [place] [address] 70452- 1980 Dec, [facility] [id number] [place] [address] 89304- 9187 Dec, [facility] [id number] [place] [address] 70588- 6511 Nov, [facility] [id number] [place] [address] 20864- 1277 Nov, [facility] [place] [facility] [address] [id number] [place] [address]- 7058 Nov, [facility] [place] [facility] [address] [id number] [place] [address]- 8815 Nov, [facility] [place] [facility] [address] [id number] [place] [address]- 6049 October, [facility] [place] [facility] [address] [id number] [place] [address]- 0396 October, [facility] [place] [facility] [address] [id number] [place] [address]- 6734 Sep, [facility] [place] [facility] [address] [id number] [place] [address]- 3917 Sep, [facility] [place] [facility] [address] [id number] [place] [address]- 3256 Sep, [facility] [place] [facility] [address] [id number] [place] [address]- 6765 Sep, [facility] [place] [facility] [address] [id number] [place] [address]- 6150 Sep, [facility] [place] [facility] [address] [id number] [place] [address]- 6660 Aug, [facility] [place] [facility] [address] [id number] [place] [address]- 3545 31 Aug, 2013 [facility] [place] [facility] [address] [id number] [place] [address]- 8541 27 Aug, 2013 [facility] [place] [facility] [address] [id number] [place] [address]- 4812 Aug, [facility] [place] [facility] [address] [id number] [place] [address]- 6107 21 Aug, 2013 [facility] [place] [facility] [address] [id number] [place] [address]- 5796 17 Aug, 2013 [facility] [place] [facility] [address] [id number] [place] [address]- 0116 Aug, [facility] [place] [facility] [address] [id number] [place] [address]66 Aug, [facility] [place] [facility] [address] [id number] [place] [address]- 1365 Jul, [facility] [place] [facility] [address] [facility] [id number] [place] [address]- 2331 Jul, [facility] [place] [facility] [address] [id number] [place] [address]- 0331 Jul, [facility] [place] [facility] [address] [id number] [place] [address]- 4686 Jul, [facility] [place] [facility] [address] [id number] [place] [address]- 1380 Jul, [facility] [place] [facility] [address] [id number] [place] [address]- 5089 Jul, [facility] [place] [facility] [address] [id number] [place] [address]- 6580 Jun, [facility] [place] [facility] [address] [id number] [place] [address]- 2575 Jun, [facility] [place] [facility] [address] [facility] [id number] [place] [address]- 6382 Jun, [facility] [place] [facility] [address] [id number] [place] [address]- 1648 Jun, [facility] [place] [facility] [address] [id number] [place] [address]- 8487 Jun, [facility] [place] [facility] [address] [id number] [place] [address]- 0761 May, [facility] [place] [facility] [address] [id number] [place] [address]- 1526 May, [facility] [place] [facility] [address] [facility] [id number] [place] [address]- 3799 May, [facility] [place] [facility] [address] [id number] [place] [address]- 2546 May, [facility] [address] [id number] [place] [address]- 0026 May, [facility] [place] [facility] [address] [id number] [place] [address]- 2546 Apr, [facility] [place] [facility] [address] [id number] [place] [address]- 2546 Apr, [facility] [place] [facility] [address] [id number] [place] [address]- 2546 Mar, [facility] [place] [facility] [address] [id number] [place] [address]- 2546 Mar, [facility] [place] [facility] [address] [id number] [place] [address]- 2546 Mar, [facility] [place] [facility] [address] [id number] [place] [address]- 2546 Mar, [facility] [place] [facility] [address] [id number] [place] [address]- 7651 Feb, [facility] [place] [facility] [address] [id number] [place] [address]- 2546 Jan, [facility] [place] [facility] [address] [id number] [place] [address]- 3016 Jan, [facility] [place] [facility] [address] [id number] [place] [address]- 2546 Aug, [facility] [place] [facility] [address] [id number] [place] [address]- 2546 Jul, [facility] [place] [facility] [address] [id number] [place] [address]- 2546 Jun, [facility] [place] [facility] [address] [id number] [place] [address]- 2546 May, [facility] [place] [facility] [address] [id number] [place] [address]- 5922 May, [facility] [place] [facility] [address] [id number] [place] [address]- 0582 May, [facility] [place] [facility] [address] [id number] [place] [address]- 8131 May, [facility] [place] [facility] [address] [id number] [place] [address]- 6481 Apr, [facility] [place] [facility] [address] [id number] [place] [address]- 6213 Apr, [facility] [place] [facility] [address] [id number] [place] [address]- 2393 Mar, [facility] [place] [facility] [address] [id number] [place] [address]- 0822 Mar, [facility] [place] [facility] [address] [facility] [id number] [place] [address]- 5718 Mar, [facility] [place] [facility] [address] [id number] [place] [address]- 9787 Mar, [facility] [place] [facility] [address] [id number] [place] [address]- 0169 Mar, [facility] [place] [facility] [address] [facility] [id number] [place] [address]- 2635 Mar, [facility] [place] [facility] [address] [id number] [address]- 2344 Dec, [facility] [place] [facility] [address] [id number], [place] [address]- 2285 Dec, [facility] [place] [facility] [address] [facility] [id number] [place] [address]- 8557 Nov, [facility] [place] [facility] [address] [id number], [place] [address]- 3655 Nov, [facility] [place] [facility] [address] [facility] [id number] [place] [address]- 4853 October, [facility] [place] [facility] [address] [facility] [id number] [place] [address]- 2546 October, [facility] [address] [facility] [id number], [place] [address]- 2546 Sep, [facility] [address] [facility] [id number], [place] [address]- 2546 Aug, [facility] [address] [facility] [id number], [place] [address]- 2546 Aug, [facility] [address] [facility] [id number], [place] [address]- 2546 Aug, IMMUNIZATIONS No Known Immunizations SOCIAL HISTORY Never Assessed REASON FOR VISIT loose stools PLAN OF CARE VITAL SIGNS MEDICATIONS No Known Medications RESULTS No Results PROCEDURES No Known procedures INSTRUCTIONS MEDICATIONS ADMINISTERED No Known Medications MEDICAL (GENERAL) HISTORY Type Description Date Medical History hyperlipidemia Medical History htn Medical History kidney failure stage 4 - dx in 2012 Medical History hypothyroidisim Medical History neuropathy Medical History COPD - See's Dr Burnette in [facility] Medical History Chronic Heart Failure Surgical History 2 cesareans Surgical History defibrillator - 2012 Hospitalization History pneumonia for a week 2016 Hospitalization History Hospitalized at [facility]- CHF, Chest pain. Dismissed 07/11/17 07/10/2017 Hospitalization History [facility] pneumonia, hypoxia-[facility] 07/30/17 Hospitalization History [facility]- RLL PNA, Respiratory Failure. Transfered to [facility] 10/25/2017 Hospitalization History CHF/COPD 11/2017
--- OUTSIDE RECORDS SUMMARY | 2018-03-06 23:14 | XMS REPORT ---
Author Author TEAGAN VERNON Organization [facility] Address [address] [place] [address] Care Team Providers Care Cooky Packer Name Role Phone TEAGAN VERNON Unavailable PROBLEMS Type Condition ICD9-CM Code [id number] Code Onset Dates Condition Status SNOMED Code Problem Chronic obstructive pulmonary disease with (acute) exacerbation J44.1 Active 876107780 Problem Dependence on supplemental oxygen Z99.81 Active 372467211023 Problem Psychophysiological insomnia F51.04 Active 438596921 Problem Chronic kidney disease, stage III (moderate) N18.3 Active 056875573 Problem Supplemental oxygen dependent Z99.81 Active 549897645445 Problem Cardiomyopathy I42.9 Active 21744932 Problem Chronic obstructive pulmonary disease, unspecified J44.9 Active 22362690 Problem Acute on chronic systolic CHF (congestive heart failure) I50.23 Active 463946579 Problem CKD (chronic kidney disease) stage 4, GFR 15-29 ml/min N18.4 Active 427438829 Problem Essential hypertension I10 Active 55284783 Problem Anemia associated with chronic renal failure D63.1 Active 630498184 Problem Anxiety F41.9 Active 79520389 Problem Chronic systolic heart failure I50.22 Active 151317750 Problem Acute on chronic combined systolic and diastolic CHF (congestive heart failure) I50.43 Active [id number] Problem Mild depression F32.0 Active 417321781 Problem Paroxysmal atrial fibrillation I48.0 Active 645885192 ALLERGIES No Information ENCOUNTERS Encounter Location Date Diagnosis [facility] [id number] [address] Jan, Acute on chronic systolic CHF (congestive heart failure) I50.23 ; Acute kidney failure, unspecified N17.9 ; Chronic kidney disease, stage III (moderate) N18.3 and Supplemental oxygen dependent Z99.81 [facility] [id number] [place] [address] 93391- 1102 Jan, Acute on chronic combined systolic and diastolic CHF ( congestive heart failure) I50.43 [facility] [id number] [place] [address] 83540- 1037 Jan, [facility] [id number] [place] [address] 80917 -8211 Jan, Irritant contact dermatitis due to cosmetics L24.3 ; Effusion of right wrist M25.431 and Pain in right wrist M25.531 [facility] [id number] [place] [address] 74810- 0939 Dec, Chronic systolic heart failure I50.22 ; Chronic obstructive pulmonary disease with (acute) exacerbation J44.1 ; CKD (chronic kidney disease ) stage 4, GFR 15-29 ml/min N18.4 ; Cardiomyopathy I42.9 ; Dependence on supplemental oxygen Z99.81 and Psychophysiological insomnia F51.04 [facility] [id number] [place] [address] 24237- 8809 Dec, Anxiety F41.9 [facility] [id number] [place] [address] 67687- 6165 Dec, [facility] [id number] [place] [address] 24173- 9266 Dec, [facility] [id number] [place] [address] 59440- 1402 Dec, [facility] [address] [place] [id number] Dec, Encounter for examination for admission to skilled nursing Z02.2 ; Chronic obstructive pulmonary disease, unspecified J44.9 ; Paroxysmal atrial fibrillation I48.0 ; CKD (chronic kidney disease) stage 4, GFR 15-29 ml/min N18.4 and Cardiomyopathy I42.9 [place] [facility] [id number] [place] [address] 11797- 8617 Dec, [facility] [id number] [place] [address] 83153- 5979 Nov, Acute on chronic combined systolic and diastolic CHF ( congestive heart failure) I50.43 [facility] [address] [address] 9[address] Nov, [facility] [id number] [address] 7[address] Nov, [facility] [id number] [place] [address] 94308- 7616 Nov, Chronic systolic heart failure I50.22 ; Paroxysmal atrial fibrillation I48.0 ; Chronic obstructive pulmonary disease with (acute) exacerbation J44.1 ; Chronic kidney disease, stage 4 (severe) N18.4 ; Pain in right hip M25.551 and Pain in left hip M25.552 [facility] [address] [address] 99[address] Nov, Chronic kidney disease, stage 4 (severe) N18.4 [facility] [id number] [address] 1177 Nov, [facility] [id number] [address] 4165 Nov, [facility] [address] [address] 0[address] October, Chronic obstructive pulmonary disease with (acute) exacerbation J44.1 ; Chronic systolic heart failure I50.22 ; CKD (chronic kidney disease) stage 4, GFR 15-29 ml/min N18.4 and Dependence on supplemental oxygen Z99.81 [facility] [address] [address] 04[address] October, [facility] [address] [address] 5[address] October, [facility] [address] [address] Sep, Chronic kidney disease, stage 4 (severe) N18.4 and Chronic kidney disease, stage IV (severe) N18.4 [place] [id number] [address] 49[address] 20 Sep, 2017 Chronic kidney disease, stage 4 (severe) N18.4 [place] [facility] [id number] [place] [address] 12262- 3519 17 Sep, 2017 Anxiety F41.9 ; Paroxysmal atrial fibrillation I48.0 ; Chronic kidney disease, stage 4 (severe) N18.4 ; Chronic systolic heart failure I50.22 and Anemia associated with chronic renal failure D63.1 [facility] [id number] [address] 1409 Sep, [facility] [id number] [place] [address] 32725- 8658 Aug, [facility] [id number] [place] [address] 62277- 8791 Aug, [facility] [address] [place] [id number] Aug, Acute on chronic combined systolic and diastolic CHF (congestive heart failure) I50.43 ; Essential hypertension I10 ; CKD (chronic kidney disease) stage 4, GFR 15-29 ml/min N18.4 ; Paroxysmal atrial fibrillation I48.0 and Mild depression F32.0 [place] [address] [address] 9005 Aug, [place] [facility] [address] [address] 3862 Aug, [facility] [id number] [place] [address] 79212- 8991 Aug, Acute on chronic respiratory failure with hypoxia J96.21 ; Acute kidney failure, unspecified N17.9 ; Chronic kidney disease, stage 4 ( severe) N18.4 ; Acute on chronic combined systolic and diastolic CHF ( congestive heart failure) I50.43 ; Paroxysmal atrial fibrillation I48.0 and Cardiomyopathy, unspecified type I42.9 [place] [address] [address] 5[address] Aug, [place] [facility] [id number] [address] 9511 14 Jul, 2017 [facility] [id number] [place] [address] 97523- 1866 Jul, [facility] [id number] [place] [address] 35479- 6411 Jul, [facility] [id number] [place] [address] 60846- 6885 Jul, [facility] [id number] [place] [address] 35618- 2765 Jul, Community acquired pneumonia of right lower lobe of lung J18.1 ; CKD (chronic kidney disease) stage 4, GFR 15-29 ml/min N18.4 and Shortness of breath R06.02 [facility] [id number] [place] [address] [id number] Jul, [facility] [id number] [place] [address] 01320- 3158 Jun, Anxiety F41.9 [facility] [id number] [place] [address] 82479- 5324 13 Apr, 2017 Anxiety F41.9 [facility] [id number] [place] [address] 49111- 1057 10 Apr, 2017 Cough R05 and Pneumonia of right lower lobe due to infectious organism J18.1 [facility] [id number] [place] [address] 07519- 6415 07 Apr, 2017 [facility] [id number] [place] [address] 60346- 4996 06 Apr, 2017 Chronic kidney disease, stage IV (severe) N18.4 and COPD exacerbation J44.1 [facility] [address] [address]- 1673 28 Feb, 2017 Chronic systolic heart failure I50.22 ; Essential hypertension I10 ; Anemia associated with chronic renal failure D63.1 and Chronic kidney disease, stage 4 (severe) N18.4 [facility] [id number] [place] [address] 34671- 6627 Feb, Anxiety F41.9 [facility] [id number] [place] [address] 98432- 7258 Feb, [facility] [id number] [place] [address] 33273- 6476 Feb, [facility] [id number] [place] [address] 52747- 6118 Jan, Other fatigue R53.83 ; Otalgia of both ears H92.03 and Urinary urgency R39.15 [facility] [id number] [place] [address] 15115- 3355 Jan, Acute non-recurrent maxillary sinusitis J01.00 ; Chronic systolic heart failure I50.22 ; Stage 3 chronic kidney disease N18.3 and Mild depression F32.0 [facility] [id number] [place] [address] 45274- 3917 Sep, [facility] [id number] [place] [address] 87489- 7227 Sep, [facility] [id number] [place] [address] 02256- 6918 Feb, [facility] [id number] [place] [address] 38267- 7374 Feb, [facility] [id number] [place] [address] 88517- 4246 Dec, [facility] [id number] [place] [address] 26494- 5926 Dec, [facility] [id number] [place] [address] 65403- 3408 Nov, [facility] [id number] [place] [address] 13136- 4695 Nov, [facility] [place] [facility] [address] [id number] [place] [address]- 4491 Nov, [facility] [place] [facility] [address] [id number] [place] [address]- 5855 Nov, [facility] [place] [facility] [address] [id number] [place] [address]- 3570 October, [facility] [place] [facility] [address] [id number] [place] [address]- 2373 October, [facility] [place] [facility] [address] [id number] [place] [address]- 9521 Sep, [facility] [place] [facility] [address] [id number] [place] [address]- 0467 Sep, [facility] [place] [facility] [address] [id number] [place] [address]- 5455 Sep, [facility] [place] [facility] [address] [id number] [place] [address]- 9310 Sep, [facility] [place] [facility] [address] [id number] [place] [address]- 3019 Sep, [facility] [place] [facility] [address] [id number] [place] [address]- 5759 Aug, [facility] [place] [facility] [address] [id number] [place] [address]- 7542 31 Aug, 2013 [facility] [place] [facility] [address] [id number] [place] [address]- 4306 27 Aug, 2013 [facility] [place] [facility] [address] [id number] [place] [address]- 4194 Aug, [facility] [place] [facility] [address] [id number] [place] [address]- 1689 21 Aug, 2013 [facility] [place] [facility] [address] [id number] [place] [address]- 2896 17 Aug, 2013 [facility] [place] [facility] [address] [id number] [place] [address]- 4812 Aug, [facility] [place] [facility] [address] [id number] [place] 1387 Aug, [facility] [place] [facility] [address] [id number] [place] [address]- 2858 Jul, [facility] [place] [facility] [address] [facility] [id number] [place] [address]- 1520 Jul, [facility] [place] [facility] [address] [id number] [place] [address]- 7540 Jul, [facility] [place] [facility] [address] [id number] [place] [address]- 3341 Jul, [facility] [place] [facility] [address] [id number] [place] [address]- 9140 Jul, [facility] [place] [facility] [address] [id number] [place] [address]- 8891 Jul, [facility] [place] [facility] [address] [id number] [place] [address]- 9310 Jun, [facility] [place] [facility] [address] [id number] [place] [address]- 1816 Jun, [facility] [place] [facility] [address] [facility] [id number] [place] [address]- 0248 Jun, [facility] [place] [facility] [address] [id number] [place] [address]- 2883 Jun, [facility] [place] [facility] [address] [id number] [place] [address]- 5799 Jun, [facility] [place] [facility] [address] [id number] [place] [address]- 1043 May, [facility] [place] [facility] [address] [id number] [place] [address]- 2486 May, [facility] [place] [facility] [address] [facility] [id number] [place] [address]- 3296 May, [facility] [place] [facility] [address] [id number] [place] [address]- 2546 May, [facility] [address] [id number] [place] [address]- 3066 May, [facility] [place] [facility] [address] [id number] [place] [address]- 2546 Apr, [facility] [place] [facility] [address] [id number] [place] [address]- 2546 Apr, [facility] [place] [facility] [address] [id number] [place] [address]- 2546 Mar, [facility] [place] [facility] [address] [id number] [place] [address]- 2546 Mar, [facility] [place] [facility] [address] [id number] [place] [address]- 2546 Mar, [facility] [place] [facility] [address] [id number] [place] [address]- 2546 Mar, [facility] [place] [facility] [address] [id number] [place] [address]- 6994 Feb, [facility] [place] [facility] [address] [id number] [place] [address]- 2546 Jan, [facility] [place] [facility] [address] [id number] [place] [address]- 6106 Jan, [facility] [place] [facility] [address] [id number] [place] [address]- 2546 Aug, [facility] [place] [facility] [address] [id number] [place] [address]- 2546 Jul, [facility] [place] [facility] [address] [id number] [place] [address]- 2546 Jun, [facility] [place] [facility] [address] [id number] [place] [address]- 2546 May, [facility] [place] [facility] [address] [id number] [place] [address]- 9801 May, [facility] [place] [facility] [address] [id number] [place] [address]- 2877 May, [facility] [place] [facility] [address] [id number] [place] [address]- 9054 May, [facility] [place] [facility] [address] [id number] [place] [address]- 7621 Apr, [facility] [place] [facility] [address] [id number] [place] [address]- 3255 Apr, [facility] [place] [facility] [address] [id number] [place] [address]- 2340 Mar, [facility] [place] [facility] [address] [id number] [place] [address]- 1235 Mar, [facility] [place] [facility] [address] [facility] [id number] [place] [address]- 5891 Mar, [facility] [place] [facility] [address] [id number] [place] [address]- 7982 Mar, [facility] [place] [facility] [address] [id number] [place] [address]- 1101 Mar, [facility] [place] [facility] [address] [facility] [id number] [place] [address]- 7740 Mar, [facility] [place] [facility] [address] [id number] [place] [address]- 0789 Dec, [facility] [place] [facility] [address] [id number] [place] [address]- 0911 Dec, [facility] [place] [facility] [address] [facility] [id number] [place] [address]- 1199 Nov, [facility] [place] [facility] [address] [id number] [place] [address]- 8442 Nov, [facility] [place] [facility] [address] [facility] [id number] [place] [address]- 1698 October, [facility] [place] [facility] [address] [facility] [id number] [place] [address]- 2546 October, [facility] [address] [facility] [id number] [place] [address]- 8706 Sep, [facility] [address] [facility] [id number] [place] [address]- 2546 Aug, [facility] [address] [facility] [id number] [place] [address]- 2546 Aug, [facility] [address] [facility] [id number] [place] [address] 2546 Aug, IMMUNIZATIONS No Known Immunizations SOCIAL [...] History COPD - See's Dr Burnette in [facility] Medical History Chronic Heart Failure Surgical History 2 cesareans Surgical History defibrillator - 2012 Hospitalization History pneumonia for a week 2016 Hospitalization History Hospitalized at [facility]- CHF, Chest pain. Dismissed 07/11/17 07/10/2017 Hospitalization History RLL pneumonia, hypoxia-[facility] 07/30/17 Hospitalization History [facility]- RLL PNA, Respiratory Failure. Transfered to [place] 10/25/2017 Hospitalization History CHF/COPD 11/2017
--- OUTSIDE RECORDS SUMMARY | 2018-03-06 23:14 | XMS REPORT ---
Author Author TEAGAN VERNON Organization [facility] Address [address] [place] [address] Care Team Providers Care Douper Name Role Phone TEAGAN VERNON Unavailable PROBLEMS Type Condition ICD9-CM Code SRX52-MB Code Onset Dates Condition Status SNOMED Code Problem Chronic obstructive pulmonary disease with (acute) exacerbation J44.1 Active 544100545 Problem Dependence on supplemental oxygen Z99.81 Active 635653358589 Problem Psychophysiological insomnia F51.04 Active 880057043 Problem Chronic kidney disease, stage III (moderate) N18.3 Active 064493060 Problem Supplemental oxygen dependent Z99.81 Active 857962606640 Problem Cardiomyopathy I42.9 Active 13307157 Problem Chronic obstructive pulmonary disease, unspecified J44.9 Active 83176348 Problem Acute on chronic systolic CHF (congestive heart failure) I50.23 Active 900677229 Problem CKD (chronic kidney disease) stage 4, GFR 15-29 ml/min N18.4 Active 689804966 Problem Essential hypertension I10 Active 62825912 Problem Anemia associated with chronic renal failure D63.1 Active 635024830 Problem Anxiety F41.9 Active 10088921 Problem Chronic systolic heart failure I50.22 Active 796484869 Problem Acute on chronic combined systolic and diastolic CHF (congestive heart failure) I50.43 Active 321232579514884 Problem Mild depression F32.0 Active 366453254 Problem Paroxysmal atrial fibrillation I48.0 Active 061617370 ALLERGIES No Information ENCOUNTERS Encounter Location Date Diagnosis [facility] [id number], [place] [address] Jan, Acute on chronic systolic CHF (congestive heart failure) I50.23 ; Acute kidney failure, unspecified N17.9 ; Chronic kidney disease, stage III (moderate) N18.3 and Supplemental oxygen dependent Z99.81 [facility] [id number] [place] [address] 93700- 9676 Jan, Acute on chronic combined systolic and diastolic CHF ( congestive heart failure) I50.43 [facility] [id number] [place] [address] 77179- 6192 Jan, [facility] [id number] [place] [address] Jan, Irritant contact dermatitis due to cosmetics L24.3 ; Effusion of right wrist M25.431 and Pain in right wrist M25.531 [facility] [id number] [place] [address] 94040- 5373 Dec, Chronic systolic heart failure I50.22 ; Chronic obstructive pulmonary disease with (acute) exacerbation J44.1 ; CKD (chronic kidney disease ) stage 4, GFR 15-29 ml/min N18.4 ; Cardiomyopathy I42.9 ; Dependence on supplemental oxygen Z99.81 and Psychophysiological insomnia F51.04 [id number] [place] [address] 10142- 7754 Dec, Anxiety F41.9 [address] [facility] [id number] [place] [address] 84769- 0444 Dec, [facility] [facility] [id number] [place] [address] 85561- 4731 Dec, [facility] [facility] [id number] [place] [address] 68445- 4021 Dec, [facility] [address] [place] [id number] Dec, Encounter for examination for admission to custodial Z02.2 ; Chronic obstructive pulmonary disease, unspecified J44.9 ; Paroxysmal atrial fibrillation I48.0 ; CKD (chronic kidney disease) stage 4, GFR 15-29 ml/min N18.4 and Cardiomyopathy I42.9 [facility] [facility] [id number] [place] [address] 98077- 2723 Dec, [address] [facility] [id number] [place] [address] 89926- 5830 Nov, Acute on chronic combined systolic and diastolic CHF ( congestive heart failure) I50.43 [facility] [address], [place] [address] Nov, [facility] [address], [place] [address] Nov, [facility] [id number] [place] [address] 09514- 4101 Nov, Chronic systolic heart failure I50.22 ; Paroxysmal atrial fibrillation I48.0 ; Chronic obstructive pulmonary disease with (acute) exacerbation J44.1 ; Chronic kidney disease, stage 4 (severe) N18.4 ; Pain in right hip M25.551 and Pain in left hip M25.552 [facility] [address], [place] [address] Nov, Chronic kidney disease, stage 4 (severe) N18.4 [facility] [address], [place] [address] 9[address] Nov, [facility] [address], [place] [address] Nov, [facility] [address], [place] [address] 8583 October, Chronic obstructive pulmonary disease with (acute) exacerbation J44.1 ; Chronic systolic heart failure I50.22 ; CKD (chronic kidney disease) stage 4, GFR 15-29 ml/min N18.4 and Dependence on supplemental oxygen Z99.81 [facility] [address], [place] [address] October, [facility] [address], [place] [address] 16[address] October, [facility] [address], [place] [address] Sep, Chronic kidney disease, stage 4 (severe) N18.4 and Chronic kidney disease, stage IV (severe) N18.4 [address] [address], [place] [address] 20 Sep, 2017 Chronic kidney disease, stage 4 (severe) N18.4 [address] [id number] [place] [address] 15995- 1092 17 Sep, 2017 Anxiety F41.9 ; Paroxysmal atrial fibrillation I48.0 ; Chronic kidney disease, stage 4 (severe) N18.4 ; Chronic systolic heart failure I50.22 and Anemia associated with chronic renal failure D63.1 [facility] [facility] [id number] [address] Sep, [place] [id number] [place] [address] 36530- 8630 Aug, [place] [facility] [id number] [place] [address] 29519- 7321 Aug, [facility] [address] [place] [id number] Aug, Acute on chronic combined systolic and diastolic CHF (congestive heart failure) I50.43 ; Essential hypertension I10 ; CKD (chronic kidney disease) stage 4, GFR 15-29 ml/min N18.4 ; Paroxysmal atrial fibrillation I48.0 and Mild depression F32.0 [address] [address], [place] [address] Aug, [place] [address], [place] [address] 9206 Aug, [place] [facility] [id number] [place] [address] 77474- 2998 Aug, Acute on chronic respiratory failure with hypoxia J96.21 ; Acute kidney failure, unspecified N17.9 ; Chronic kidney disease, stage 4 ( severe) N18.4 ; Acute on chronic combined systolic and diastolic CHF ( congestive heart failure) I50.43 ; Paroxysmal atrial fibrillation I48.0 and Cardiomyopathy, unspecified type I42.9 [address] [facility] [address], [place] [address] Aug, [address], [place] [address] 3[address] 14 Jul, 2017 [facility] [id number] [place] [address] 49210- 5539 Jul, [facility] [address] [place] [address] 70255- 6009 Jul, [facility] [id number] [place] [address] 68688- 0376 Jul, [facility] [id number] [place] [address] 31684- 9437 Jul, Community acquired pneumonia of right lower lobe of lung J18.1 ; CKD (chronic kidney disease) stage 4, GFR 15-29 ml/min N18.4 and Shortness of breath R06.02 [facility] [id number] [place] [id number] Jul, [facility] [id number] [place] [address] 95194- 0852 Jun, Anxiety F41.9 [facility] [id number] [place] [address] 45752- 7982 13 Apr, 2017 Anxiety F41.9 [facility] [id number] [place] [address] 21794- 2674 10 Apr, 2017 Cough R05 and Pneumonia of right lower lobe due to infectious organism J18.1 [facility] [address] [place] [address] 83412- 4642 07 Apr, 2017 [facility] [address] [place] [address] 28535- 0801 06 Apr, 2017 Chronic kidney disease, stage IV (severe) N18.4 and COPD exacerbation J44.1 [facility] [address], [place] [address] 0[address] 28 Feb, 2017 Chronic systolic heart failure I50.22 ; Essential hypertension I10 ; Anemia associated with chronic renal failure D63.1 and Chronic kidney disease, stage 4 (severe) N18.4 [facility] [id number] [place] [address] 43678- 2612 Feb, Anxiety F41.9 [facility] [id number] [place] [address] 45885- 7473 Feb, [facility] [id number] [place] [address] 49111- 3213 Feb, [facility] [id number] [place] [address] 22646- 7671 Jan, Other fatigue R53.83 ; Otalgia of both ears H92.03 and Urinary urgency R39.15 [facility] [id number] [place] [address] 93516- 6611 Jan, Acute non-recurrent maxillary sinusitis J01.00 ; Chronic systolic heart failure I50.22 ; Stage 3 chronic kidney disease N18.3 and Mild depression F32.0 [facility] [id number] [place] [address] 91472- 5114 Sep, [facility] [id number] [place] [address] 39986- 3921 Sep, [facility] [id number] [place] [address] 44647- 1869 Feb, [facility] [id number] [place] [address] 28299- 2366 Feb, [facility] [id number] [place] [address] 88170- 5780 Dec, [facility] [id number] [place] [address] 79618- 3951 Dec, [facility] [id number] [place] [address] 23121- 1309 Nov, [facility] [id number] [place] [address] 17454- 8063 Nov, [facility] [place] [facility] [address] [id number] [place] [address]- 2593 Nov, [facility] [place] [facility] [address] [id number] [place] [address]- 3084 Nov, [facility] [place] [facility] [address] [id number] [place] [address]- 1273 October, [facility] [place] [facility] [address] [id number] [place] [address]- 7611 October, [facility] [place] [facility] [address] [id number] [place] [address]- 7571 Sep, [facility] [place] [facility] [address] [id number] [place] [address]- 6129 Sep, [facility] [place] [facility] [address] [id number] [place] [address]- 5376 Sep, [facility] [place] [facility] [address] [id number] [place] [address]- 6932 Sep, [facility] [place] [facility] [address] [id number] [place] [address]- 5724 Sep, [facility] [place] [facility] [address] [id number] [place] [address]- 0415 Aug, [facility] [place] [facility] [address] [id number] [place] [address]- 1730 31 Aug, 2013 [facility] [place] [facility] [address] [id number] [place] [address]- 7951 27 Aug, 2013 [facility] [place] [facility] [address] [id number] [place] [address]- 2523 Aug, [facility] [place] [facility] [address] [id number] [place] [address]- 8812 21 Aug, 2013 [facility] [place] [facility] [address] [id number] [place] [address]- 6616 17 Aug, 2013 [facility] [place] [facility] [address] [id number] [place] [address]- 8444 Aug, [facility] [place] [facility] [address] [id number] [place] [address]598 Aug, [facility] [place] [facility] [address] [id number] [place] [address]- 0855 Jul, [facility] [place] [facility] [address] [facility] [id number] [place] [address]- 2037 Jul, [facility] [place] [facility] [address] [id number] [place] [address]- 2882 Jul, [facility] [place] [facility] [address] [id number] [place] [address]- 6012 Jul, [facility] [place] [facility] [address] [id number] [place] [address]- 1589 Jul, [facility] [place] [facility] [address] [id number] [place] [address]- 8298 Jul, [facility] [place] [facility] [address] [id number] [place] [address]- 8899 Jun, [facility] [place] [facility] [address] [id number] [place] [address]- 8493 Jun, [facility] [place] [facility] [address] [facility] [id number] [place] [address]- 5405 Jun, [facility] [place] [facility] [address] [id number] [place] [address]- 9573 Jun, [facility] [place] [facility] [address] [id number] [place] [address]- 3879 Jun, [facility] [place] [facility] [address] [id number] [place] [address]- 8158 May, [facility] [place] [facility] [address] [id number] [place] [address]- 6361 May, [facility] [place] [facility] [address] [facility] [id number] [place] [address]- 1771 May, [facility] [place] [facility] [address] [id number] [place] [address]- 2546 May, [facility] [address] [id number] [place] [address]- 9816 May, [facility] [place] [facility] [address] [id number] [place] [address]- 2546 Apr, [facility] [place] [facility] [address] [id number] [place] [address]- 2546 Apr, [facility] [place] [facility] [address] [id number] [place] [address]- 2546 Mar, [facility] [place] [facility] [address] [id number] [place] [address]- 2546 Mar, [facility] [place] [facility] [address] [id number] [place] [address]- 2546 Mar, [facility] [place] [facility] [address] [id number] [place] [address]- 2546 Mar, [facility] [place] [facility] [address] [id number] [place] [address]- 0898 Feb, [facility] [place] [facility] [address] [id number] [place] [address]- 2546 Jan, [facility] [place] [facility] [address] [id number] [place] [address]- 9596 Jan, [facility] [place] [facility] [address] [id number] [place] [address]- 2546 Aug, [facility] [place] [facility] [address] [id number] [place] [address]- 2546 Jul, [facility] [place] [facility] [address] [id number] [place] [address]- 2546 Jun, [facility] [place] [facility] [address] [id number] [place] [address]- 2546 May, [facility] [place] [facility] [address] [id number] [place] [address]- 5760 May, [facility] [place] [facility] [address] [id number] [place] [address]- 8320 May, [facility] [place] [facility] [address] [id number] [place] [address]- 9578 May, [facility] [place] [facility] [address] [id number] [place] [address]- 8944 Apr, [facility] [place] [facility] [address] [id number] [place] [address]- 3691 Apr, [facility] [place] [facility] [address] [id number] [place] [address]- 3586 Mar, [facility] [place] [facility] [address] [id number] [place] [address]- 1697 Mar, [facility] [place] [facility] [address] [facility] [id number] [place] [address]- 8044 Mar, [facility] [place] [facility] [address] [id number] [place] [address]- 4386 Mar, [facility] [place] [facility] [address] [id number] [place] [address]- 7750 Mar, [facility] [place] [facility] [address] [facility] [id number] [place] [address]- 8727 Mar, [facility] [place] [facility] [address] [id number], [place] [address]- 6741 Dec, [facility] [place] [facility] [address] [id number], [place] [address]- 1148 Dec, [facility] [place] [facility] [address] [facility] [id number] [place] [address]- 0971 Nov, [facility] [place] [facility] [address] [id number], [place] [address]- 9641 Nov, [facility] [place] [facility] [address] [facility] [id number] [place] [address]- 2063 October, [facility] [place] [facility] [address] [facility] [id number] [place] [address]- 7646 October, [facility] [address] [facility] [id number], [place] [address]- 4595 Sep, [facility] [address] [facility] [id number], [place] [address]- 0156 Aug, [facility] [address] [facility] [id number], [place] [address]- 8562 Aug, [facility] [address] [facility] [id number], [place] [address]- 8871 Aug, IMMUNIZATIONS No Known Immunizations SOCIAL HISTORY Never Assessed REASON FOR VISIT TCM Phone Call/Med [facility] PLAN OF CARE VITAL SIGNS MEDICATIONS Medication Instructions Dosage Frequency Start Date End Date Duration Status Tylenol Extra Strength 500 MG Orally every 6 hrs 2 tablets as needed 6h Active Levothyroxine Sodium 25 MCG Orally Once a day 1 tablet on an empty stomach in the morning 24h Active ProAir HFA 108 (90 Base) MCG/ACT Inhalation every 6 hrs 2 puffs as needed 6h Not-Taking Ondansetron 4 MG Orally every 6 hrs prn nausea/vomiting 1 tablet on the tongue and allow to dissolve as needed Active Atorvastatin Calcium 40 mg Orally Once a day 2 tablet 24h Not- Taking Mary-Nadia - Orally Once a day 1 tablet 24h Not-Taking Augmentin 500-125 MG 1 Dec, 2017 Active Albuterol Sulfate (2.5 MG/3ML) 0.083% Inhalation Three times a day 3 ml as needed 8h October, Not-Taking Ranitidine HCl 150 MG Orally twice a day 0.5 12h Not-Taking Furosemide 20 MG Orally Once a day 1 tablet 24h Active Isosorbide Mononitrate ER 30 MG Orally twice a day 0.5 tablets 12h Active Carvedilol 12.5 MG Orally 2 times a day 1 capsule 12h Active Sertraline HCl 100 mg Orally Once a day 1 1/2 tablets 24h 30 days Active Lactobacillus Acid-Pectin - Orally 3 times a day 8h Not-Taking Ipratropium-Albuterol 0.5-2.5 (3) MG/3ML Inhalation every 6 hrs 3 ml 6h 30 days Active Pantoprazole Sodium 40 MG Orally Once a day 1 tablet 24h Active Multivitamin Women - Active Lorazepam 0.5 MG Orally everyday at bedtime 1 tablet Aug, Active Loperamide HCl 2 MG Orally Four times a day 1 capsule as needed 6h Active Ferrous Sulfate 325 (65 Fe) MG Orally Once a day 1 tablet 24h Active Magnesium Oxide 400 MG Orally Once a day 1 tablet as needed 24h Active Amiodarone HCl 200 mg Orally Once a day 1 tablet 24h 90 days Active Oxycodone HCl 5 mg Orally every 4 hrs 1 tablet as needed 4h Active Tums 500 MG Orally Once a day 1 tablet 24h Active PredniSONE 10 MG Orally Once a day 1 tablet 24h 1 Dec, 2017 Active RESULTS No Results PROCEDURES No Known procedures INSTRUCTIONS MEDICATIONS ADMINISTERED No Known Medications MEDICAL (GENERAL) HISTORY Type Description Date Medical History hyperlipidemia Medical History htn Medical History kidney failure stage 4 - dx in 2012 Medical History hypothyroidisim Medical History neuropathy Medical History COPD - See's Dr Burnette in [facility] [facility] Medical History Chronic Heart Failure Surgical History 2 [facility] Surgical History defibrillator - 2012 Hospitalization History pneumonia for a week 2016 Hospitalization History Hospitalized at [facility]- CHF, Chest pain. Dismissed 07/11/17 07/10/2017 Hospitalization History [facility] pneumonia, hypoxia-[facility] 07/30/17 Hospitalization History [facility]- [facility] PNA, Respiratory Failure. Transfered to [place] 10/25/2017 Hospitalization History CHF/COPD 11/2017
--- OUTSIDE RECORDS SUMMARY | 2018-03-06 23:15 | XMS REPORT ---
Author Author CALLY YANG Organization [facility] Address [address] [place] [address] Care Team Providers Care Lacer And Tier Name Role Phone CALLY YANG Unavailable PROBLEMS Type Condition ICD9-CM Code UYJ75-DR Code Onset Dates Condition Status SNOMED Code Problem Chronic obstructive pulmonary disease with (acute) exacerbation J44.1 Active 895145739 Problem Dependence on supplemental oxygen Z99.81 Active 365793544675 Problem Psychophysiological insomnia F51.04 Active 770108731 Problem Chronic kidney disease, stage III (moderate) N18.3 Active 585363855 Problem Supplemental oxygen dependent Z99.81 Active 164437513644 Problem Cardiomyopathy I42.9 Active 67420335 Problem Chronic obstructive pulmonary disease, unspecified J44.9 Active 13421134 Problem Acute on chronic systolic CHF (congestive heart failure) I50.23 Active 885540596 Problem CKD (chronic kidney disease) stage 4, GFR 15-29 ml/min N18.4 Active 275577451 Problem Essential hypertension I10 Active 58250340 Problem Anemia associated with chronic renal failure D63.1 Active 528200607 Problem Anxiety F41.9 Active 18613414 Problem Chronic systolic heart failure I50.22 Active 946728525 Problem Acute on chronic combined systolic and diastolic CHF (congestive heart failure) I50.43 Active 860337326303807 Problem Mild depression F32.0 Active 217919833 Problem Paroxysmal atrial fibrillation I48.0 Active 201786571 ALLERGIES No Information ENCOUNTERS Encounter Location Date Diagnosis [facility] [id number] [place] [address]58- 3703 Jan, Acute on chronic systolic CHF (congestive heart failure) I50.23 ; Acute kidney failure, unspecified N17.9 ; Chronic kidney disease, stage III (moderate) N18.3 and Supplemental oxygen dependent Z99.81 [facility] [address] [place] [address] 95931- 5729 Jan, Acute on chronic combined systolic and diastolic CHF ( congestive heart failure) I50.43 [facility] [id number] [place] [address] 08839- 4298 Jan, [facility] [id number] [place] [address] 83175 -8842 Jan, Irritant contact dermatitis due to cosmetics L24.3 ; Effusion of right wrist M25.431 and Pain in right wrist M25.531 [facility] [id number] [place] [address] 03984- 6580 Dec, Chronic systolic heart failure I50.22 ; Chronic obstructive pulmonary disease with (acute) exacerbation J44.1 ; CKD (chronic kidney disease ) stage 4, GFR 15-29 ml/min N18.4 ; Cardiomyopathy I42.9 ; Dependence on supplemental oxygen Z99.81 and Psychophysiological insomnia F51.04 [facility] [id number] [place] [address] 67720- 9671 Dec, Anxiety F41.9 [facility] [id number] [place] [address] 94807- 7313 Dec, [facility] [id number] [place] [address] 05146- 6070 Dec, [facility] [id number] [place] [address] 00271- 9777 Dec, [facility] [address] [place] [id number] Dec, Encounter for examination for admission to [facility] Z02.2 ; Chronic obstructive pulmonary disease, unspecified J44.9 ; Paroxysmal atrial fibrillation I48.0 ; CKD (chronic kidney disease) stage 4, GFR 15-29 ml/min N18.4 and Cardiomyopathy I42.9 [facility] [id number] [place] [address] 92944- 8334 Dec, [facility] [id number] [place] [address] 08116- 5082 Nov, Acute on chronic combined systolic and diastolic CHF ( congestive heart failure) I50.43 [facility] [address], [place] [address] 70[address] Nov, [facility] [address] [address] 6188 Nov, [facility] [id number] [place] [address] 72103- 8883 Nov, Chronic systolic heart failure I50.22 ; Paroxysmal atrial fibrillation I48.0 ; Chronic obstructive pulmonary disease with (acute) exacerbation J44.1 ; Chronic kidney disease, stage 4 (severe) N18.4 ; Pain in right hip M25.551 and Pain in left hip M25.552 [facility] [address] [address] 0100 Nov, Chronic kidney disease, stage 4 (severe) N18.4 [facility] [address] [address] 97[address] Nov, [facility] [address] [address]- 3983 Nov, [facility] [address] [place] [address] 19025- 5637 October, Chronic obstructive pulmonary disease with (acute) exacerbation J44.1 ; Chronic systolic heart failure I50.22 ; CKD (chronic kidney disease) stage 4, GFR 15-29 ml/min N18.4 and Dependence on supplemental oxygen Z99.81 [facility] [address] [address] 6457 October, [facility] [id number] [address]- 7597 October, [facility] [address] [address] 6[address] Sep, Chronic kidney disease, stage 4 (severe) N18.4 and Chronic kidney disease, stage IV (severe) N18.4 [facility] [address], [place] [address] 5163 20 Sep, 2017 Chronic kidney disease, stage 4 (severe) N18.4 [facility] [address] [place] [address] 28900- 6410 Sep, Anxiety F41.9 ; Paroxysmal atrial fibrillation I48.0 ; Chronic kidney disease, stage 4 (severe) N18.4 ; Chronic systolic heart failure I50.22 and Anemia associated with chronic renal failure D63.1 [facility] [address] [address] 1701 Sep, [facility] [id number] [place] [address] 55162- 3201 Aug, [facility] [id number] [place] [address] 86359- 1215 Aug, [facility] [address] [place] [id number] Aug, Acute on chronic combined systolic and diastolic CHF (congestive heart failure) I50.43 ; Essential hypertension I10 ; CKD (chronic kidney disease) stage 4, GFR 15-29 ml/min N18.4 ; Paroxysmal atrial fibrillation I48.0 and Mild depression F32.0 [facility] [address] [address]- 7352 Aug, [facility] [address] [address]- 8607 Aug, [facility] [id number] [place] [address] 37165- 9279 Aug, Acute on chronic respiratory failure with hypoxia J96.21 ; Acute kidney failure, unspecified N17.9 ; Chronic kidney disease, stage 4 ( severe) N18.4 ; Acute on chronic combined systolic and diastolic CHF ( congestive heart failure) I50.43 ; Paroxysmal atrial fibrillation I48.0 and Cardiomyopathy, unspecified type I42.9 [facility] [address] [place] [address] 83163- 6339 Aug, [facility] [address], [place] [address]- 4486 Jul, [facility] [id number] [place] [address] 32626- 0576 Jul, [facility] [address] [place] [address] 80789- 1105 Jul, [facility] [id number] [place] [address] 75321- 6479 Jul, [facility] [address] [place] [address] 76484- 7137 Jul, Community acquired pneumonia of right lower lobe of lung J18.1 ; CKD (chronic kidney disease) stage 4, GFR 15-29 ml/min N18.4 and Shortness of breath R06.02 [facility] [id number] [place] [address] [id number] Jul, [facility] [address] [place] [address] 35800- 8874 Jun, Anxiety F41.9 [facility] [id number] [place] [address] 53089- 7326 13 Apr, 2017 Anxiety F41.9 [facility] [address] [place] [address] 78718- 3035 10 Apr, 2017 Cough R05 and Pneumonia of right lower lobe due to infectious organism J18.1 [facility] [address] [address]- 1828 07 Apr, 2017 [facility] [address] [place] [address] 01149- 6367 06 Apr, 2017 Chronic kidney disease, stage IV (severe) N18.4 and COPD exacerbation J44.1 [facility] [address] [address]- 2325 28 Feb, 2017 Chronic systolic heart failure I50.22 ; Essential hypertension I10 ; Anemia associated with chronic renal failure D63.1 and Chronic kidney disease, stage 4 (severe) N18.4 [facility] [id number] [place] [address] 72256- 4877 Feb, Anxiety F41.9 [facility] [id number] [place] [address] 14966- 1114 Feb, [facility] [id number] [place] [address] 94009- 3384 Feb, [facility] [id number] [place] [address] 75019- 2481 Jan, Other fatigue R53.83 ; Otalgia of both ears H92.03 and Urinary urgency R39.15 [facility] [id number] [place] [address] 04941- 5025 Jan, Acute non-recurrent maxillary sinusitis J01.00 ; Chronic systolic heart failure I50.22 ; Stage 3 chronic kidney disease N18.3 and Mild depression F32.0 [facility] [id number] [place] [address] 06048- 0395 Sep, [facility] [id number] [place] [address] 37140- 2098 Sep, [facility] [id number] [place] [address] 62807- 3558 Feb, [facility] [id number] [place] [address] 90334- 9654 Feb, [facility] [id number] [place] [address] 74142- 6284 Dec, [facility] [id number] [place] [address] 23241- 3888 Dec, [facility] [id number] [place] [address] 50386- 7803 Nov, [facility] [id number] [place] [address] 43583- 6377 Nov, [facility] [place] [facility] [address] [id number] [place] [address]- 2649 Nov, [facility] [place] [facility] [address] [id number] [place] [address]- 1957 Nov, [facility] [place] [facility] [address] [id number] [place] [address]- 4633 October, [facility] [place] [facility] [address] [id number] [place] [address]- 9692 October, [facility] [place] [facility] [address] [id number] [place] [address]- 0612 Sep, [facility] [place] [facility] [address] [id number] [place] [address]- 4023 Sep, [facility] [place] [facility] [address] [id number] [place] [address]- 2321 Sep, [facility] [place] [facility] [address] [id number] [place] [address]- 7555 Sep, [facility] [place] [facility] [address] [id number] [place] [address]- 5374 Sep, [facility] [place] [facility] [address] [id number] [place] [address]- 0979 Aug, [facility] [place] [facility] [address] [id number] [place] [address]- 6964 31 Aug, 2013 [facility] [place] [facility] [address] [id number] [place] [address]- 6795 27 Aug, 2013 [facility] [place] [facility] [address] [id number] [place] [address]- 2465 Aug, [facility] [place] [facility] [address] [id number] [place] [address]- 1785 21 Aug, 2013 [facility] [place] [facility] [address] [id number] [place] [address]- 2212 17 Aug, 2013 [facility] [place] [facility] [address] [id number] [place] [address]- 9302 Aug, [facility] [place] [facility] [address] [id number] [place] [address]- 7935 Aug, [facility] [place] [facility] [address] [id number] [place] [address]- 4226 Jul, [facility] [place] [facility] [address] [id number] [place] [address]- 2516 Jul, [facility] [place] [facility] [address] [id number] [place] [address]- 4641 Jul, [facility] [place] [facility] [address] [id number] [place] [address]- 5327 Jul, [facility] [place] [facility] [address] [id number] [place] [address]- 4524 Jul, [facility] [place] [facility] [address] [id number] [place] [address]- 4375 Jul, [facility] [place] [facility] [address] [id number] [place] [address]- 6743 Jun, [facility] [place] [facility] [address] [id number] [place] [address]- 9157 Jun, [facility] [place] [facility] [address] [facility] [id number] [place] [address]- 2813 Jun, [facility] [place] [facility] [address] [id number] [place] [address]- 2531 Jun, [facility] [place] [facility] [address] [id number] [address]- 2189 Jun, [facility] [place] [facility] [address] [id number] [place] [address]- 3582 May, [facility] [place] [facility] [address] [id number] [place] [address]- 8815 May, [facility] [place] [facility] [address] [facility] [id number] [place] [address]- 6800 May, [facility] [place] [facility] [address] [id number] [place] [address]- 2546 May, [facility] [place] [facility] [address] [id number] [place] [address]- 0967 May, [facility] [place] [facility] [address] [id number] [place] [address]- 9583 Apr, [facility] [place] [facility] [address] [id number] [place] [address]- 5654 Apr, [facility] [place] [facility] [address] [id number] [place] [address]- 4471 Mar, [facility] [place] [facility] [address] [id number] [place] [address]- 0658 Mar, [facility] [place] [facility] [address] [id number] [place] [address]- 6098 Mar, [facility] [place] [facility] [address] [id number] [place] [address]- 1245 Mar, [facility] [place] [facility] [address] [id number] [place] [address]- 0288 Feb, [facility] [place] [facility] [address] [id number] [place] [address]- 2776 Jan, [facility] [place] [facility] [address] [id number] [place] [address]- 9229 Jan, [facility] [place] [facility] [address] [id number] [place] [address]- 2546 Aug, [facility] [place] [facility] [address] [id number] [place] [address]- 2540 Jul, [facility] [place] [facility] [address] [id number] [place] [address]- 2546 Jun, [facility] [place] [facility] [address] [id number] [place] [address]- 2546 May, [facility] [place] [facility] [address] [id number] [place] [address]- 7480 May, [facility] [place] [facility] [address] [id number] [place] [address]- 0706 May, [facility] [place] [facility] [address] [id number] [place] [address]- 1579 May, [facility] [place] [facility] [address] [facility] [id number] [place] [address]- 3148 Apr, [facility] [place] [facility] [address] [id number] [place] [address]- 9275 Apr, [facility] [place] [facility] [address] [id number] [place] [address]- 7381 Mar, [facility] [place] [facility] [address] [id number] [place] [address]- 9469 Mar, [facility] [place] [facility] [address] [facility] [id number] [place] [address]- 2018 Mar, [facility] [place] [facility] [address] [id number] [place] [address]- 1419 Mar, [facility] [place] [facility] [address] [id number] [place] [address]- 2763 Mar, [facility] [place] [facility] [address] [facility] [id number] [place] [address]- 2142 Mar, [facility] [place] [facility] [address] [facility] [id number], [place] [address]- 6747 Dec, [facility] [place] [facility] [address] [id number], [place] [address]- 1486 Dec, [facility] [place] [facility] [address] [facility] [id number] [place] [address]- 6092 Nov, [facility] [place] [facility] [address] [facility] [id number], [place] [address]- 0352 Nov, [facility] [place] [facility] [address] [facility] [id number] [place] [address] 2546 October, [facility] [place] [facility] [address] [facility] [id number] [place] [address]- 9646 October, [facility] [address] [facility] [id number] [address]- 3696 Sep, [facility] [address] [facility] [id number], [place] [address]- 0096 Aug, [facility] [address] [facility] [id number], [place] [address]- 4996 Aug, [facility] [address] [facility] [id number], [place] [address]- 0470 Aug, IMMUNIZATIONS No Known Immunizations SOCIAL HISTORY Never Assessed REASON FOR VISIT TCM Phone Call/Med [facility] PLAN OF CARE VITAL SIGNS MEDICATIONS Medication Instructions Dosage Frequency Start Date End Date Duration Status Levothyroxine Sodium 25 MCG Orally Once a day 1 tablet on an empty stomach in the morning 24h Active Tums 500 MG Orally Once a day 1 tablet 24h Active PredniSONE 20 mg Orally Once a day 2 tablet 24h Nov, Active Magnesium Oxide 400 MG Orally Once a day 1 tablet as needed 24h Active Pantoprazole Sodium 40 MG Orally Once a day 1 tablet 24h Active Ferrous Sulfate 325 (65 Fe) MG Orally Once a day 1 tablet 24h Active Lactobacillus Acid-Pectin - Orally 3 times a day 8h Not-Taking Multivitamin Women - Active Loperamide HCl 2 MG Orally Four times a day 1 capsule as needed 6h Active Albuterol Sulfate (2.5 MG/3ML) 0.083% Inhalation Three times a day 3 ml as needed 8h October, Not-Taking Ranitidine HCl 150 MG Orally twice a day 0.5 12h Not-Taking Tylenol Extra Strength 500 MG Orally every 6 hrs 2 tablets as needed 6h Active Ondansetron 4 MG Orally every 6 hrs prn nausea/vomiting 1 tablet on the tongue and allow to dissolve as needed Active Sertraline HCl 100 mg Orally Once a day 1 1/2 tablets 24h 30 days Active Amiodarone HCl 200 mg Orally Once a day 1 tablet 24h 90 days Active Ipratropium-Albuterol 0.5-2.5 (3) MG/3ML Inhalation every 6 hrs 3 ml 6h Active Carvedilol 12.5 MG Orally 2 times a day 1 capsule 12h Active Oxycodone HCl 5 mg Orally every 4 hrs 1 tablet as needed 4h Active Atorvastatin Calcium 40 mg Orally Once a day 2 tablet 24h Not- Taking Lorazepam 0.5 MG Orally everyday at bedtime 1 tablet Aug, Active Furosemide 20 MG Orally Once a day 1 tablet 24h Active Mary-Nadia - Orally Once a day 1 tablet 24h Not-Taking ProAir HFA 108 (90 Base) MCG/ACT Inhalation every 6 hrs 2 puffs as needed 6h Not-Taking Isosorbide Mononitrate ER 30 MG Orally twice a day 0.5 tablets 12h Active RESULTS No Results PROCEDURES No Known procedures INSTRUCTIONS MEDICATIONS ADMINISTERED No Known Medications MEDICAL (GENERAL) HISTORY Type Description Date Medical History hyperlipidemia Medical History htn Medical History kidney failure stage 4 - dx in 2012 Medical History hypothyroidisim Medical History neuropathy Medical History COPD - See's Dr Burnette in [facility] Medical History Chronic Heart Failure Surgical History 2 cesareans Surgical History defibrillator - 2012 Hospitalization History pneumonia for a week 2016 Hospitalization History Hospitalized at [facility]- CHF, Chest pain. Dismissed 07/11/17 07/10/2017 Hospitalization History [facility] pneumonia, hypoxia-[facility] 07/30/17 Hospitalization History [facility]- [facility] PNA, Respiratory Failure. Transfered to [place] 10/25/2017 Hospitalization History CHF/COPD 11/2017
--- OUTSIDE RECORDS SUMMARY | 2018-03-06 23:15 | XMS REPORT ---
Author Author TEAGAN VERNON Organization [facility] Address [address] [place] [address] Care Team Providers Care Acid Patroller Name Role Phone TEAGAN VERNON Unavailable PROBLEMS Type Condition ICD9-CM Code HNC86-WU Code Onset Dates Condition Status SNOMED Code Problem Chronic obstructive pulmonary disease with (acute) exacerbation J44.1 Active 012344518 Problem Dependence on supplemental oxygen Z99.81 Active 720503851194 Problem Psychophysiological insomnia F51.04 Active 765835740 Problem Chronic kidney disease, stage III (moderate) N18.3 Active 720194539 Problem Supplemental oxygen dependent Z99.81 Active 992038200159 Problem Cardiomyopathy I42.9 Active 75533166 Problem Chronic obstructive pulmonary disease, unspecified J44.9 Active 98362701 Problem Acute on chronic systolic CHF (congestive heart failure) I50.23 Active 790530967 Problem CKD (chronic kidney disease) stage 4, GFR 15-29 ml/min N18.4 Active 180690833 Problem Essential hypertension I10 Active 50288627 Problem Anemia associated with chronic renal failure D63.1 Active 753627754 Problem Anxiety F41.9 Active 68174061 Problem Chronic systolic heart failure I50.22 Active 509936278 Problem Acute on chronic combined systolic and diastolic CHF (congestive heart failure) I50.43 Active [id number] Problem Mild depression F32.0 Active 382960154 Problem Paroxysmal atrial fibrillation I48.0 Active 307521321 ALLERGIES No Information ENCOUNTERS Encounter Location Date Diagnosis [facility] [id number] [address] Jan, Acute on chronic systolic CHF (congestive heart failure) I50.23 ; Acute kidney failure, unspecified N17.9 ; Chronic kidney disease, stage III (moderate) N18.3 and Supplemental oxygen dependent Z99.81 [facility] [id number] [place] [address] 29767- 9081 Jan, Acute on chronic combined systolic and diastolic CHF ( congestive heart failure) I50.43 [facility] [id number] [place] [address] 51911- 0281 Jan, [facility] [id number] [place] [address]992 -7983 Jan, Irritant contact dermatitis due to cosmetics L24.3 ; Effusion of right wrist M25.431 and Pain in right wrist M25.531 [facility] [id number] [place] [address] 48235- 1865 Dec, Chronic systolic heart failure I50.22 ; Chronic obstructive pulmonary disease with (acute) exacerbation J44.1 ; CKD (chronic kidney disease ) stage 4, GFR 15-29 ml/min N18.4 ; Cardiomyopathy I42.9 ; Dependence on supplemental oxygen Z99.81 and Psychophysiological insomnia F51.04 [facility] [facility] [id number] [place] [address] 48999- 1712 Dec, Anxiety F41.9 [facility] [facility] [id number] [place] [address] 65880- 7723 Dec, [place] [facility] [id number] [place] [address] 06701- 4279 Dec, [place] [id number] [place] [address] 32527- 0392 Dec, [facility] [address] [place] [id number] Dec, Encounter for examination for admission to fdc Z02.2 ; Chronic obstructive pulmonary disease, unspecified J44.9 ; Paroxysmal atrial fibrillation I48.0 ; CKD (chronic kidney disease) stage 4, GFR 15-29 ml/min N18.4 and Cardiomyopathy I42.9 [place] [facility] [id number] [place] [address] 89099- 3465 Dec, [place] [facility] [id number] [place] [address] 30008- 0409 Nov, Acute on chronic combined systolic and diastolic CHF ( congestive heart failure) I50.43 [facility] [address] [address] Nov, [facility] [address] [address] Nov, [facility] [id number] [place] [address] 11307- 2089 Nov, Chronic systolic heart failure I50.22 ; Paroxysmal atrial fibrillation I48.0 ; Chronic obstructive pulmonary disease with (acute) exacerbation J44.1 ; Chronic kidney disease, stage 4 (severe) N18.4 ; Pain in right hip M25.551 and Pain in left hip M25.552 [facility] [address] [address] Nov, Chronic kidney disease, stage 4 (severe) N18.4 [facility] [address] [address] 79[address] Nov, [facility] [address] [address] 7978 Nov, [facility] [address] [address] October, Chronic obstructive pulmonary disease with (acute) exacerbation J44.1 ; Chronic systolic heart failure I50.22 ; CKD (chronic kidney disease) stage 4, GFR 15-29 ml/min N18.4 and Dependence on supplemental oxygen Z99.81 [facility] [address] [address] 7[address] October, [facility] [address] [address] October, [facility] [address] [address] Sep, Chronic kidney disease, stage 4 (severe) N18.4 and Chronic kidney disease, stage IV (severe) N18.4 [facility] [address] [address] 8[address] 20 Sep, 2017 Chronic kidney disease, stage 4 (severe) N18.4 [place] [id number] [place] [address] 49814- 1367 17 Sep, 2017 Anxiety F41.9 ; Paroxysmal atrial fibrillation I48.0 ; Chronic kidney disease, stage 4 (severe) N18.4 ; Chronic systolic heart failure I50.22 and Anemia associated with chronic renal failure D63.1 [facility] [id number] [address] 8647 Sep, [facility] [facility] [id number] [place] [address] 79933- 8290 Aug, [facility] [facility] [id number] [place] [address] 80727- 1784 Aug, [facility] [address] [place] [id number] Aug, Acute on chronic combined systolic and diastolic CHF (congestive heart failure) I50.43 ; Essential hypertension I10 ; CKD (chronic kidney disease) stage 4, GFR 15-29 ml/min N18.4 ; Paroxysmal atrial fibrillation I48.0 and Mild depression F32.0 [place] [address] [address] 3540 Aug, [place] [address] [address] 9833 Aug, [facility] [facility] [id number] [place] [address] 39971- 1253 Aug, Acute on chronic respiratory failure with hypoxia J96.21 ; Acute kidney failure, unspecified N17.9 ; Chronic kidney disease, stage 4 ( severe) N18.4 ; Acute on chronic combined systolic and diastolic CHF ( congestive heart failure) I50.43 ; Paroxysmal atrial fibrillation I48.0 and Cardiomyopathy, unspecified type I42.9 [place] [address] [address] 478[address] Aug, [place] [address] [address] 45[address] 14 Jul, 2017 [facility] [id number] [place] [address] 52080- 8311 Jul, [facility] [id number] [place] [address] 92227- 9728 Jul, [facility] [id number] [place] [address] 60369- 0308 Jul, [facility] [id number] [place] [address] 83950- 8920 Jul, Community acquired pneumonia of right lower lobe of lung J18.1 ; CKD (chronic kidney disease) stage 4, GFR 15-29 ml/min N18.4 and Shortness of breath R06.02 [facility] [id number] [place] [id number] Jul, [facility] [address] [place] [address] 51393- 9891 Jun, Anxiety F41.9 [facility] [id number] [place] [address] 34170- 4880 13 Apr, 2017 Anxiety F41.9 [facility] [address] [place] [address] 39399- 6557 10 Apr, 2017 Cough R05 and Pneumonia of right lower lobe due to infectious organism J18.1 [facility] [address] [place] [address] 79600- 4522 07 Apr, 2017 [facility] [address] [place] [address] 25237- 7591 06 Apr, 2017 Chronic kidney disease, stage IV (severe) N18.4 and COPD exacerbation J44.1 [facility] [address] [address]- 7510 28 Feb, 2017 Chronic systolic heart failure I50.22 ; Essential hypertension I10 ; Anemia associated with chronic renal failure D63.1 and Chronic kidney disease, stage 4 (severe) N18.4 [facility] [id number] [place] [address] 84901- 2944 Feb, Anxiety F41.9 [facility] [id number] [place] [address] 63332- 1234 Feb, [facility] [id number] [place] [address] 87159- 4527 Feb, [facility] [id number] [place] [address] 86841- 4293 Jan, Other fatigue R53.83 ; Otalgia of both ears H92.03 and Urinary urgency R39.15 [facility] [id number] [place] [address] 31523- 5245 Jan, Acute non-recurrent maxillary sinusitis J01.00 ; Chronic systolic heart failure I50.22 ; Stage 3 chronic kidney disease N18.3 and Mild depression F32.0 [facility] [id number] [place] [address] 11211- 2310 Sep, [facility] [id number] [place] [address] 79700- 9361 Sep, [facility] [id number] [place] [address] 31155- 9885 Feb, [facility] [id number] [place] [address] 81926- 5161 Feb, [facility] [id number] [place] [address] 18624- 3381 Dec, [facility] [id number] [place] [address] 21252- 2962 Dec, [facility] [id number] [place] [address] 60993- 9963 Nov, [facility] [id number] [place] [address] 49856- 2628 Nov, [facility] [place] [facility] [address] [id number] [place] [address]- 2471 Nov, [facility] [place] [facility] [address] [id number] [place] [address]- 7117 Nov, [facility] [place] [facility] [address] [id number] [place] [address]- 7804 October, [facility] [place] [facility] [address] [id number] [place] [address]- 5122 October, [facility] [place] [facility] [address] [id number] [place] [address]- 8688 Sep, [facility] [place] [facility] [address] [id number] [place] [address]- 8096 Sep, [facility] [place] [facility] [address] [id number] [place] [address]- 7220 Sep, [facility] [place] [facility] [address] [id number] [place] [address]- 7537 Sep, [facility] [place] [facility] [address] [id number] [place] [address]- 8042 Sep, [facility] [place] [facility] [address] [id number] [place] [address]- 2476 Aug, [facility] [place] [facility] [address] [id number] [place] [address]- 3394 31 Aug, 2013 [facility] [place] [facility] [address] [id number] [place] [address]- 3163 27 Aug, 2013 [facility] [place] [facility] [address] [id number] [place] [address]- 9557 Aug, [facility] [place] [facility] [address] [id number] [place] [address]- 6160 21 Aug, 2013 [facility] [place] [facility] [address] [id number] [place] [address]- 3426 17 Aug, 2013 [facility] [place] [facility] [address] [id number] [place] [address]- 6294 Aug, [facility] [place] [facility] [address] [id number] [place] 9652 Aug, [facility] [place] [facility] [address] [id number] [place] [address]- 3465 Jul, [facility] [place] [facility] [address] [facility] [id number] [place] [address]- 7387 Jul, [facility] [place] [facility] [address] [id number] [place] [address]- 6892 Jul, [facility] [place] [facility] [address] [id number] [place] [address]- 5979 Jul, [facility] [place] [facility] [address] [id number] [place] [address]- 6704 Jul, [facility] [place] [facility] [address] [id number] [place] [address]- 4700 Jul, [facility] [place] [facility] [address] [id number] [place] [address]- 9993 Jun, [facility] [place] [facility] [address] [id number] [place] [address]- 9979 Jun, [facility] [place] [facility] [address] [facility] [id number] [place] [address]- 4655 Jun, [facility] [place] [facility] [address] [id number] [place] [address]- 9860 Jun, [facility] [place] [facility] [address] [id number] [place] [address]- 8100 Jun, [facility] [place] [facility] [address] [id number] [place] [address]- 2404 May, [facility] [place] [facility] [address] [id number] [place] [address]- 9147 May, [facility] [place] [facility] [address] [facility] [id number] [place] [address]- 5724 May, [facility] [place] [facility] [address] [id number] [place] [address]- 2546 May, [facility] [address] [id number] [place] [address]- 2566 May, [facility] [place] [facility] [address] [id number] [place] [address]- 2546 Apr, [facility] [place] [facility] [address] [id number] [place] [address]- 2546 Apr, [facility] [place] [facility] [address] [id number] [place] [address]- 2546 Mar, [facility] [place] [facility] [address] [id number] [place] [address]- 2546 Mar, [facility] [place] [facility] [address] [id number] [place] [address]- 2546 Mar, [facility] [place] [facility] [address] [id number] [place] [address]- 2546 Mar, [facility] [place] [facility] [address] [id number] [place] [address]- 5223 Feb, [facility] [place] [facility] [address] [id number] [place] [address]- 2546 Jan, [facility] [place] [facility] [address] [id number] [place] [address]- 1426 Jan, [facility] [place] [facility] [address] [id number] [place] [address]- 2546 Aug, [facility] [place] [facility] [address] [id number] [place] [address]- 2546 Jul, [facility] [place] [facility] [address] [id number] [place] [address]- 2546 Jun, [facility] [place] [facility] [address] [id number] [place] [address]- 2546 May, [facility] [place] [facility] [address] [id number] [place] [address]- 7798 May, [facility] [place] [facility] [address] [id number] [place] [address]- 3102 May, [facility] [place] [facility] [address] [id number] [place] [address]- 5646 May, [facility] [place] [facility] [address] [id number] [place] [address]- 4122 Apr, [facility] [place] [facility] [address] [id number] [place] [address]- 9352 Apr, [facility] [place] [facility] [address] [id number] [place] [address]- 9710 Mar, [facility] [place] [facility] [address] [id number] [place] [address]- 2999 Mar, [facility] [place] [facility] [address] [facility] [id number] [place] [address]- 3629 Mar, [facility] [place] [facility] [address] [id number] [place] [address]- 5731 Mar, [facility] [place] [facility] [address] [id number] [place] [address]- 6299 Mar, [facility] [place] [facility] [address] [facility] [id number] [place] [address]- 7931 Mar, [facility] [place] [facility] [address] [id number] [address]- 1098 Dec, [facility] [place] [facility] [address] [id number] [place] [address]- 0391 Dec, [facility] [place] [facility] [address] [facility] [id number] [place] [address]- 7720 Nov, [facility] [place] [facility] [address] [id number] [address]- 7688 Nov, [facility] [place] [facility] [address] [facility] [id number] [place] [address]- 5842 October, [facility] [place] [facility] [address] [facility] [id number] [place] [address]- 2546 October, [facility] [address] [facility] [id number] [place] [address]- 2546 Sep, [facility] [address] [facility] [id number] [address]- 2546 Aug, [facility] [address] [facility] [id number] [place] [address]- 2546 Aug, [facility] [address] [facility] [id number] [place] [address]- 2546 Aug, IMMUNIZATIONS No Known Immunizations SOCIAL HISTORY Never Assessed REASON FOR VISIT Controlled Med Refill PLAN OF CARE VITAL SIGNS MEDICATIONS Medication Instructions Dosage Frequency Start Date End Date Duration Status Oxycodone HCl 5 mg Orally every 4 hrs 1 tablet as needed 4h Active RESULTS No Results PROCEDURES No Known procedures INSTRUCTIONS MEDICATIONS ADMINISTERED No Known Medications MEDICAL (GENERAL) HISTORY Type Description Date Medical History hyperlipidemia Medical History htn Medical History kidney failure stage 4 - dx in 2012 Medical History hypothyroidisim Medical History neuropathy Medical History COPD - See's Dr Burnette in [facility] [place] Medical History Chronic Heart Failure Surgical History 2 cesareans Surgical History defibrillator - 2012 Hospitalization History pneumonia for a week 2016 Hospitalization History Hospitalized at [facility]- CHF, Chest pain. Dismissed 07/11/17 07/10/2017 Hospitalization History RLL pneumonia, hypoxia-[facility] 07/30/17 Hospitalization History [facility]- RLL PNA, Respiratory Failure. Transfered to [facility] 10/25/2017 Hospitalization History CHF/COPD 11/2017
--- OUTSIDE RECORDS SUMMARY | 2018-03-06 23:15 | XMS REPORT ---
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 Name Role Phone TEAGAN VERNON Unavailable PROBLEMS Type Condition ICD9-CM Code ROC89-YV Code Onset Dates Condition Status SNOMED Code Problem Chronic obstructive pulmonary disease with (acute) exacerbation J44.1 Active 354283787 Problem Dependence on supplemental oxygen Z99.81 Active 790013504211 Problem Psychophysiological insomnia F51.04 Active 950276435 Problem Chronic kidney disease, stage III (moderate) N18.3 Active 379563030 Problem Supplemental oxygen dependent Z99.81 Active 119592251724 Problem Cardiomyopathy I42.9 Active 07716582 Problem Chronic obstructive pulmonary disease, unspecified J44.9 Active 94640126 Problem Acute on chronic systolic CHF (congestive heart failure) I50.23 Active 719593311 Problem CKD (chronic kidney disease) stage 4, GFR 15-29 ml/min N18.4 Active 028050776 Problem Essential hypertension I10 Active 67180135 Problem Anemia associated with chronic renal failure D63.1 Active 316793705 Problem Anxiety F41.9 Active 30092087 Problem Chronic systolic heart failure I50.22 Active 134478497 Problem Acute on chronic combined systolic and diastolic CHF (congestive heart failure) I50.43 Active [id number] Problem Mild depression F32.0 Active 323995521 Problem Paroxysmal atrial fibrillation I48.0 Active 500898069 ALLERGIES No Information ENCOUNTERS Encounter Location Date Diagnosis [facility] [id number], [place] [address] Jan, Acute on chronic systolic CHF (congestive heart failure) I50.23 ; Acute kidney failure, unspecified N17.9 ; Chronic kidney disease, stage III (moderate) N18.3 and Supplemental oxygen dependent Z99.81 [facility] [id number] [place] [address] 67236- 6979 Jan, Acute on chronic combined systolic and diastolic CHF ( congestive heart failure) I50.43 [facility] [id number] [place] [address] 13836- 5313 Jan, [facility] [id number] [place] [address] 43144 -3170 Jan, Irritant contact dermatitis due to cosmetics L24.3 ; Effusion of right wrist M25.431 and Pain in right wrist M25.531 [facility] [id number] [place] [address] 01746- 1622 Dec, Chronic systolic heart failure I50.22 ; Chronic obstructive pulmonary disease with (acute) exacerbation J44.1 ; CKD (chronic kidney disease ) stage 4, GFR 15-29 ml/min N18.4 ; Cardiomyopathy I42.9 ; Dependence on supplemental oxygen Z99.81 and Psychophysiological insomnia F51.04 [address] [facility] [id number] [place] [address] 76225- 5203 Dec, Anxiety F41.9 [facility] [id number] [place] [address] 45937- 7927 Dec, [facility] [id number] [place] [address] 36670- 8660 Dec, [facility] [id number] [place] [address] 52737- 3503 Dec, [facility] [address] [place] [id number] Dec, Encounter for examination for admission to senior care Z02.2 ; Chronic obstructive pulmonary disease, unspecified J44.9 ; Paroxysmal atrial fibrillation I48.0 ; CKD (chronic kidney disease) stage 4, GFR 15-29 ml/min N18.4 and Cardiomyopathy I42.9 [facility] [id number] [place] [address] 19667- 3050 Dec, [facility] [id number] [place] [address] 48598- 8012 Nov, Acute on chronic combined systolic and diastolic CHF ( congestive heart failure) I50.43 [facility] [address] [address] Nov, [facility] [address] [address] Nov, [facility] [id number] [place] [address] 29774- 7984 Nov, Chronic systolic heart failure I50.22 ; Paroxysmal atrial fibrillation I48.0 ; Chronic obstructive pulmonary disease with (acute) exacerbation J44.1 ; Chronic kidney disease, stage 4 (severe) N18.4 ; Pain in right hip M25.551 and Pain in left hip M25.552 [facility] [address], [place] [address] Nov, Chronic kidney disease, stage 4 (severe) N18.4 [facility] [address], [place] [address] 2100 Nov, [facility] [address], [place] [address] 1459 Nov, [facility] [address], [place] [address] 17[address] October, Chronic obstructive pulmonary disease with (acute) exacerbation J44.1 ; Chronic systolic heart failure I50.22 ; CKD (chronic kidney disease) stage 4, GFR 15-29 ml/min N18.4 and Dependence on supplemental oxygen Z99.81 [facility] [address], [place] [address] 53[address] October, [facility] [address], [place] [address] 285[address] October, [facility] [address], [place] [address] Sep, Chronic kidney disease, stage 4 (severe) N18.4 and Chronic kidney disease, stage IV (severe) N18.4 [place] [facility] [address], [place] [address] 2[address] 20 Sep, 2017 Chronic kidney disease, stage 4 (severe) N18.4 [place] [id number] [place] [address] 51528- 5119 17 Sep, 2017 Anxiety F41.9 ; Paroxysmal atrial fibrillation I48.0 ; Chronic kidney disease, stage 4 (severe) N18.4 ; Chronic systolic heart failure I50.22 and Anemia associated with chronic renal failure D63.1 [facility] [id number] [address] 44[address] Sep, [facility] [id number] [place] [address] 01695- 5737 Aug, [facility] [id number] [place] [address] 73903- 4151 Aug, [facility] [address] [place] [id number] Aug, Acute on chronic combined systolic and diastolic CHF (congestive heart failure) I50.43 ; Essential hypertension I10 ; CKD (chronic kidney disease) stage 4, GFR 15-29 ml/min N18.4 ; Paroxysmal atrial fibrillation I48.0 and Mild depression F32.0 [place] [address] [address] 8[address] Aug, [facility] [address], [place] [address] 48[address] Aug, [facility] [id number] [place] [address] 03150- 8540 Aug, Acute on chronic respiratory failure with hypoxia J96.21 ; Acute kidney failure, unspecified N17.9 ; Chronic kidney disease, stage 4 ( severe) N18.4 ; Acute on chronic combined systolic and diastolic CHF ( congestive heart failure) I50.43 ; Paroxysmal atrial fibrillation I48.0 and Cardiomyopathy, unspecified type I42.9 [place] [facility] [address], [place] [address] 67[address] Aug, [place] [address], [place] [address] 4757 14 Jul, 2017 [facility] [id number] [place] [address] 21219- 9790 Jul, [facility] [id number] [place] [address] 42934- 7754 Jul, [facility] [id number] [place] [address] 06953- 0207 Jul, [facility] [id number] [place] [address] 46690- 5354 Jul, Community acquired pneumonia of right lower lobe of lung J18.1 ; CKD (chronic kidney disease) stage 4, GFR 15-29 ml/min N18.4 and Shortness of breath R06.02 [facility] [id number] [place] [address] [id number] Jul, [facility] [id number] [place] [address] 64983- 9710 Jun, Anxiety F41.9 [facility] [id number] [place] [address] 88934- 1695 13 Apr, 2017 Anxiety F41.9 [facility] [id number] [place] [address] 29267- 4287 10 Apr, 2017 Cough R05 and Pneumonia of right lower lobe due to infectious organism J18.1 [facility] [id number] [place] [address] 63537- 5137 07 Apr, 2017 [facility] [id number] [place] [address] 90273- 8537 06 Apr, 2017 Chronic kidney disease, stage IV (severe) N18.4 and COPD exacerbation J44.1 [facility] [address], [place] [address] 8273 28 Feb, 2017 Chronic systolic heart failure I50.22 ; Essential hypertension I10 ; Anemia associated with chronic renal failure D63.1 and Chronic kidney disease, stage 4 (severe) N18.4 [facility] [id number] [place] [address] 40609- 2486 Feb, Anxiety F41.9 [facility] [id number] [place] [address] 08811- 8742 Feb, [facility] [id number] [place] [address] 19523- 0139 Feb, [facility] [id number] [place] [address] 45201- 4387 Jan, Other fatigue R53.83 ; Otalgia of both ears H92.03 and Urinary urgency R39.15 [facility] [id number] [place] [address] 84148- 9945 Jan, Acute non-recurrent maxillary sinusitis J01.00 ; Chronic systolic heart failure I50.22 ; Stage 3 chronic kidney disease N18.3 and Mild depression F32.0 [facility] [id number] [place] [address] 90281- 2585 Sep, [facility] [id number] [place] [address] 20500- 3928 Sep, [facility] [id number] [place] [address] 19359- 4864 Feb, [facility] [id number] [place] [address] 67851- 0371 Feb, [facility] [id number] [place] [address] 32488- 3541 Dec, [facility] [id number] [place] [address] 77413- 8524 Dec, [facility] [id number] [place] [address] 37187- 5373 Nov, [facility] [id number] [place] [address] 84568- 1126 Nov, [facility] [place] [facility] [address] [id number] [place] [address]- 4164 Nov, [facility] [place] [facility] [address] [id number] [place] [address]- 6543 Nov, [facility] [place] [facility] [address] [id number] [place] [address]- 9094 October, [facility] [place] [facility] [address] [id number] [place] [address]- 2495 October, [facility] [place] [facility] [address] [id number] [place] [address]- 9500 Sep, [facility] [place] [facility] [address] [id number] [place] [address]- 1716 Sep, [facility] [place] [facility] [address] [id number] [place] [address]- 7764 Sep, [facility] [place] [facility] [address] [id number] [place] [address]- 2252 Sep, [facility] [place] [facility] [address] [id number] [place] [address]- 7592 Sep, [facility] [place] [facility] [address] [id number] [place] [address]- 7939 Aug, [facility] [place] [facility] [address] [id number] [place] [address]- 2039 31 Aug, 2013 [facility] [place] [facility] [address] [id number] [place] [address]- 1566 27 Aug, 2013 [facility] [place] [facility] [address] [id number] [place] [address]- 5138 Aug, [facility] [place] [facility] [address] [id number] [place] [address]- 3684 21 Aug, 2013 [facility] [place] [facility] [address] [id number] [place] [address]- 0706 17 Aug, 2013 [facility] [place] [facility] [address] [id number] [place] [address]- 2026 Aug, [facility] [place] [facility] [address] [id number] [place] 6275 Aug, [facility] [place] [facility] [address] [id number] [place] [address]- 2791 Jul, [facility] [place] [facility] [address] [facility] [id number] [place] [address]- 4200 Jul, [facility] [place] [facility] [address] [id number] [place] [address]- 0061 Jul, [facility] [place] [facility] [address] [id number] [place] [address]- 8468 Jul, [facility] [place] [facility] [address] [id number] [place] [address]- 6064 Jul, [facility] [place] [facility] [address] [id number] [place] [address]- 7286 Jul, [facility] [place] [facility] [address] [id number] [place] [address]- 2942 Jun, [facility] [place] [facility] [address] [id number] [place] [address]- 1499 Jun, [facility] [place] [facility] [address] [facility] [id number] [place] [address]- 5732 Jun, [facility] [place] [facility] [address] [id number] [place] [address]- 0746 Jun, [facility] [place] [facility] [address] [id number] [place] [address]- 2717 Jun, [facility] [place] [facility] [address] [id number] [place] [address]- 9822 May, [facility] [place] [facility] [address] [id number] [place] [address]- 3551 May, [facility] [place] [facility] [address] [facility] [id number] [place] [address]- 9478 May, [facility] [place] [facility] [address] [id number] [place] [address]- 2546 May, [facility] [address] [id number] [place] [address]- 6946 May, [facility] [place] [facility] [address] [id number] [place] [address]- 2546 Apr, [facility] [place] [facility] [address] [id number] [place] [address]- 2546 Apr, [facility] [place] [facility] [address] [id number] [place] [address]- 2546 Mar, [facility] [place] [facility] [address] [id number] [place] [address]- 2546 Mar, [facility] [place] [facility] [address] [id number] [place] [address]- 2546 Mar, [facility] [place] [facility] [address] [id number] [place] [address]- 2546 Mar, [facility] [place] [facility] [address] [id number] [place] [address]- 3942 Feb, [facility] [place] [facility] [address] [id number] [place] [address]- 2546 Jan, [facility] [place] [facility] [address] [id number] [place] [address]- 8656 Jan, [facility] [place] [facility] [address] [id number] [place] [address]- 2546 Aug, [facility] [place] [facility] [address] [id number] [place] [address]- 2546 Jul, [facility] [place] [facility] [address] [id number] [place] [address]- 2546 Jun, [facility] [place] [facility] [address] [id number] [place] [address]- 2546 May, [facility] [place] [facility] [address] [id number] [place] [address]- 9138 May, [facility] [place] [facility] [address] [id number] [place] [address]- 3270 May, [facility] [place] [facility] [address] [id number] [place] [address]- 8798 May, [facility] [place] [facility] [address] [id number] [place] [address]- 2686 Apr, [facility] [place] [facility] [address] [id number] [place] [address]- 4240 Apr, [facility] [place] [facility] [address] [id number] [place] [address]- 3191 Mar, [facility] [place] [facility] [address] [id number] [place] [address]- 0556 Mar, [facility] [place] [facility] [address] [facility] [id number] [place] [address]- 5386 Mar, [facility] [place] [facility] [address] [id number] [place] [address]- 6266 Mar, [facility] [place] [facility] [address] [id number] [place] [address]- 2595 Mar, [facility] [place] [facility] [address] [facility] [id number] [place] [address]- 7508 Mar, [facility] [place] [facility] [address] [id number], [place] [address]- 1276 Dec, [facility] [place] [facility] [address] [id number], [place] [address]- 7358 Dec, [facility] [place] [facility] [address] [facility] [id number] [place] [address]- 7156 Nov, [facility] [place] [facility] [address] [id number], [place] [address]- 8262 Nov, [facility] [place] [facility] [address] [facility] [id number] [place] [address]- 3410 October, [facility] [place] [facility] [address] [facility] [id number] [place] [address]- 2546 October, [facility] [address] [facility] [id number], [place] [address] 2546 Sep, [facility] [address] [facility] [id number], [place] [address]- 2546 Aug, [facility] [address] [facility] [id number], [place] [address]- 2546 Aug, [facility] [address] [facility] [id number], [place] [address] 2546 Aug, IMMUNIZATIONS No Known Immunizations SOCIAL HISTORY Never Assessed REASON FOR VISIT lab orders PLAN OF CARE VITAL SIGNS MEDICATIONS No Known Medications RESULTS No Results PROCEDURES No Known procedures INSTRUCTIONS MEDICATIONS ADMINISTERED No Known Medications MEDICAL (GENERAL) HISTORY Type Description Date Medical History hyperlipidemia Medical History htn Medical History kidney failure stage 4 - dx in 2012 Medical History hypothyroidisim Medical History neuropathy Medical History COPD - See's Dr Burnette in [facility] Medical History Chronic Heart Failure Surgical History 2 cesareans Surgical History defibrillator - 2012 Hospitalization History pneumonia for a week 2016 Hospitalization History Hospitalized at [facility], [place], operated by [facility]- CHF, Chest pain. Dismissed 07/11/17 07/10/2017 Hospitalization History [facility] pneumonia, hypoxia-[facility] 07/30/17 Hospitalization History [facility], [place], operated by [facility]- [facility] PNA, Respiratory Failure. Transfered to [facility] 10/25/2017 Hospitalization History CHF/COPD 11/2017
--- OUTSIDE RECORDS SUMMARY | 2018-03-06 23:16 | XMS REPORT ---
Author Author TEAGAN VERNON Organization [facility] Address [address] [place] [address] Care Team Providers Care Quality Assurance Analyst Name Role Phone TEAGAN VERNON Unavailable PROBLEMS Type Condition ICD9-CM Code LCJ19-UA Code Onset Dates Condition Status SNOMED Code Problem Chronic obstructive pulmonary disease with (acute) exacerbation J44.1 Active 437806340 Problem Dependence on supplemental oxygen Z99.81 Active 383684226241 Problem Psychophysiological insomnia F51.04 Active 310143788 Problem Chronic kidney disease, stage III (moderate) N18.3 Active 240857465 Problem Supplemental oxygen dependent Z99.81 Active 360786164091 Problem Cardiomyopathy I42.9 Active 39593651 Problem Chronic obstructive pulmonary disease, unspecified J44.9 Active 32816527 Problem Acute on chronic systolic CHF (congestive heart failure) I50.23 Active 029258996 Problem CKD (chronic kidney disease) stage 4, GFR 15-29 ml/min N18.4 Active 739317711 Problem Essential hypertension I10 Active 25668885 Problem Anemia associated with chronic renal failure D63.1 Active 108181728 Problem Anxiety F41.9 Active 64014675 Problem Chronic systolic heart failure I50.22 Active 387332859 Problem Acute on chronic combined systolic and diastolic CHF (congestive heart failure) I50.43 Active [id number] Problem Mild depression F32.0 Active 264850217 Problem Paroxysmal atrial fibrillation I48.0 Active [id number] ALLERGIES No Information ENCOUNTERS Encounter Location Date Diagnosis [facility] [address] [facility] [id number] [address] Jan, [facility] [address] [id number] [address] Jan, Acute on chronic systolic CHF (congestive heart failure) I50.23 ; Acute kidney failure, unspecified N17.9 ; Chronic kidney disease, stage III (moderate) N18.3 and Supplemental oxygen dependent Z99.81 [facility] [id number] [place] [address] 50386- 4659 Jan, Acute on chronic combined systolic and diastolic CHF ( congestive heart failure) I50.43 [facility] [id number] [place] [address] 08109- 3704 Jan, [facility] [address] [address] Jan, Irritant contact dermatitis due to cosmetics L24.3 ; Effusion of right wrist M25.431 and Pain in right wrist M25.531 [place] [id number] [place] [address] 56893- 5651 Dec, Chronic systolic heart failure I50.22 ; Chronic obstructive pulmonary disease with (acute) exacerbation J44.1 ; CKD (chronic kidney disease ) stage 4, GFR 15-29 ml/min N18.4 ; Cardiomyopathy I42.9 ; Dependence on supplemental oxygen Z99.81 and Psychophysiological insomnia F51.04 [place] [id number] [place] [address] 86207- 0025 Dec, Anxiety F41.9 [place] [id number] [place] [address] 27704- 1346 Dec, [place] [id number] [place] [address] 56237- 2274 Dec, [place] [id number] [place] [address] 16317- 6975 Dec, [facility] [address] [place] [id number] Dec, Encounter for examination for admission to senior living Z02.2 ; Chronic obstructive pulmonary disease, unspecified J44.9 ; Paroxysmal atrial fibrillation I48.0 ; CKD (chronic kidney disease) stage 4, GFR 15-29 ml/min N18.4 and Cardiomyopathy I42.9 [place] [address] [address]- [address] Dec, [facility] [id number] [address] Nov, Acute on chronic combined systolic and diastolic CHF ( congestive heart failure) I50.43 [facility] [address] [address] Nov, [facility] [id number] [place] [address] 57356- 9086 Nov, [facility] [id number] [place] [address] 25225- 5836 Nov, Chronic systolic heart failure I50.22 ; Paroxysmal atrial fibrillation I48.0 ; Chronic obstructive pulmonary disease with (acute) exacerbation J44.1 ; Chronic kidney disease, stage 4 (severe) N18.4 ; Pain in right hip M25.551 and Pain in left hip M25.552 [facility] [id number] [place] [address] 75578- 0334 Nov, Chronic kidney disease, stage 4 (severe) N18.4 [facility] [address] [address] 8609 Nov, [facility] [id number] [place] [address] 69277- 1328 Nov, [facility] [address] [address] October, Chronic obstructive pulmonary disease with (acute) exacerbation J44.1 ; Chronic systolic heart failure I50.22 ; CKD (chronic kidney disease) stage 4, GFR 15-29 ml/min N18.4 and Dependence on supplemental oxygen Z99.81 [facility] [id number] [place] [address] 79546- 4010 October, [facility] [address] [id number] [address] 09[address] October, [facility] [id number] [address] 80[address] Sep, Chronic kidney disease, stage 4 (severe) N18.4 and Chronic kidney disease, stage IV (severe) N18.4 [place] [id number] [place] [address] 29764- 2637 Sep, Chronic kidney disease, stage 4 (severe) N18.4 [place] [id number] [place] [address] 35845- 2294 Sep, Anxiety F41.9 ; Paroxysmal atrial fibrillation I48.0 ; Chronic kidney disease, stage 4 (severe) N18.4 ; Chronic systolic heart failure I50.22 and Anemia associated with chronic renal failure D63.1 [place] [id number] [place] [address] 30513- 2498 Sep, [place] [id number] [place] [address] 12249- 8941 Aug, [place] [id number] [place] [address] 80024- 0085 Aug, [facility] [address] [place] [id number] Aug, Acute on chronic combined systolic and diastolic CHF (congestive heart failure) I50.43 ; Essential hypertension I10 ; CKD (chronic kidney disease) stage 4, GFR 15-29 ml/min N18.4 ; Paroxysmal atrial fibrillation I48.0 and Mild depression F32.[id number] [place] [address] 19773- 3324 Aug, [place] [id number] [place] [address] 30300- 2808 Aug, [place] [id number] [place] [address] 44641- 6503 Aug, Acute on chronic respiratory failure with hypoxia J96.21 ; Acute kidney failure, unspecified N17.9 ; Chronic kidney disease, stage 4 ( severe) N18.4 ; Acute on chronic combined systolic and diastolic CHF ( congestive heart failure) I50.43 ; Paroxysmal atrial fibrillation I48.0 and Cardiomyopathy, unspecified type I42.9 [place] [address] [address] Aug, [facility] [id number] [place] [address] 64983- 8809 14 Jul, 2017 [facility] [id number] [place] [address] 33644- 4906 Jul, [facility] [id number] [place] [address] 24819- 7254 Jul, [facility] [id number] [place] [address] 74727- 5620 Jul, [facility] [id number] [place] [address] 48663- 5629 Jul, Community acquired pneumonia of right lower lobe of lung J18.1 ; CKD (chronic kidney disease) stage 4, GFR 15-29 ml/min N18.4 and Shortness of breath R06.02 [facility] [id number] [place] [address] [id number] Jul, [facility] [id number] [place] [address] 33627- 3338 Jun, Anxiety F41.9 [facility] [id number] [place] [address] 74160- 4151 13 Apr, 2017 Anxiety F41.9 [facility] [id number] [place] [address] 57648- 8526 10 Apr, 2017 Cough R05 and Pneumonia of right lower lobe due to infectious organism J18.1 [facility] [address] [address]- 5084 Apr, [facility] [id number] [place] [address] 23587- 3154 06 Apr, 2017 Chronic kidney disease, stage IV (severe) N18.4 and COPD exacerbation J44.1 [facility] [address] [place] [address] 09136- 0385 Feb, Chronic systolic heart failure I50.22 ; Essential hypertension I10 ; Anemia associated with chronic renal failure D63.1 and Chronic kidney disease, stage 4 (severe) N18.4 [facility] [id number] [place] [address] 01268- 8602 Feb, Anxiety F41.9 [facility] [id number] [place] [address] 71957- 5284 Feb, [facility] [address] [address]- 3842 Feb, [place] [address] [address]- 5584 Jan, Other fatigue R53.83 ; Otalgia of both ears H92.03 and Urinary urgency R39.[address] [address]- [address] Jan, Acute non-recurrent maxillary sinusitis J01.00 ; Chronic systolic heart failure I50.22 ; Stage 3 chronic kidney disease N18.3 and Mild depression F32.0 [place] [id number] [place] [address] 92286- 8048 Sep, [facility] [id number] [place] [address] 52746- 1960 Sep, [facility] [id number] [place] [address] 90985- 7696 Feb, [facility] [id number] [place] [address] 39818- 8070 Feb, [facility] [id number] [place] [address] 09436- 2183 Dec, [facility] [id number] [place] [address] 71376- 8630 Dec, [facility] [id number] [place] [address] 99451- 6078 Nov, [facility] [place] [facility] [address] [id number] [place] [address]- 3244 Nov, [facility] [place] [facility] [address] [id number] [place] [address]- 3658 Nov, [facility] [place] [facility] [address] [id number] [place] [address]- 9162 Nov, [facility] [place] [facility] [address] [id number] [place] [address]- 4032 October, [facility] [place] [facility] [address] [id number] [place] [address]- 2115 October, [facility] [place] [facility] [address] [id number] [place] [address]- 5309 Sep, [facility] [place] [facility] [address] [id number] [place] [address]- 5982 Sep, [facility] [place] [facility] [address] [id number] [place] [address]- 6386 Sep, [facility] [place] [facility] [address] [id number] [place] [address]- 1805 Sep, [facility] [place] [facility] [address] [id number] [place] [address]- 9557 Sep, [facility] [place] [facility] [address] [id number] [place] [address]- 3520 Aug, [facility] [place] [facility] [address] [id number] [place] [address]- 3040 31 Aug, 2013 [facility] [place] [facility] [address] [id number] [place] [address]- 5798 27 Aug, 2013 [facility] [place] [facility] [address] [id number] [place] [address]- 5169 Aug, [facility] [place] [facility] [address] [id number] [place] [address]- 8564 Aug, [facility] [place] [facility] [address] [id number] [place] [address]- 9203 Aug, [facility] [place] [facility] [address] [id number] [place] [address]- 1454 Aug, [facility] [place] [facility] [address] [id number] [place] [address]- 5021 Aug, [facility] [place] [facility] [address] [id number] [place] [address]- 2336 Jul, [facility] [place] [facility] [address] [id number] [place] [address]- 0794 Jul, [facility] [place] [facility] [address] [id number] [place] [address]- 6456 Jul, [facility] [place] [facility] [address] [id number] [place] [address]- 3623 Jul, [facility] [place] [facility] [address] [id number] [place] [address]- 4682 Jul, [facility] [place] [facility] [address] [id number] [place] [address]- 9144 Jul, [facility] [place] [facility] [address] [id number] [place] [address]- 7674 Jun, [facility] [place] [facility] [address] [id number] [place] [address]- 4524 Jun, [facility] [place] [facility] [address] [id number] [place] [address]- 7028 Jun, [facility] [place] [facility] [address] [id number] [place] [address]- 5549 Jun, [facility] [place] [facility] [address] [id number] [place] [address]- 4573 Jun, [facility] [place] [facility] [address] [id number] [place] [address]- 7042 May, [facility] [place] [facility] [address] [id number] [place] [address]- 8698 May, [facility] [place] [facility] [address] [id number] [place] [address]- 2546 May, [facility] [address] [id number] [place] [address]- 2546 May, [facility] [place] [facility] [address] [id number] [place] [address]- 2546 May, [facility] [place] [facility] [address] [id number] [place] [address]- 2546 Apr, [facility] [place] [facility] [address] [id number] [place] [address]- 2546 Apr, [facility] [place] [facility] [address] [id number] [place] [address]- 2546 Mar, [facility] [place] [facility] [address] [id number] [place] [address]- 2546 Mar, [facility] [place] [facility] [address] [id number] [place] [address]- 2546 Mar, [facility] [place] [facility] [address] [id number] [place] [address]- 2549 Mar, [facility] [place] [facility] [address] [id number] [place] [address]- 2546 Feb, [facility] [place] [facility] [address] [id number] [place] [address]- 2546 Jan, [facility] [place] [facility] [address] [id number] [place] [address]- 2546 Jan, [facility] [place] [facility] [address] [id number] [place] [address]- 2546 Aug, [facility] [place] [facility] [address] [id number] [place] [address]- 2546 Jul, [facility] [place] [facility] [address] [id number] [place] [address]- 2546 Jun, [facility] [place] [facility] [address] [id number] [place] [address]- 3302 May, [facility] [place] [facility] [address] [id number] [place] [address]- 8514 May, [facility] [place] [facility] [address] [id number] [place] [address]- 1685 May, [facility] [place] [facility] [address] [id number] [place] 8079 May, [facility] [place] [facility] [address] [id number] [place] [address]- 0813 Apr, [facility] [place] [facility] [address] [id number] [place] [address]- 0879 Apr, [facility] [place] [facility] [address] [id number] [place] [address]- 9699 Mar, [facility] [place] [facility] [address] [facility] [id number] [place] [address]- 5718 Mar, [facility] [place] [facility] [address] [id number] [place] [address]- 0553 Mar, [facility] [place] [facility] [address] [id number] [place] [address]- 2170 Mar, [facility] [place] [facility] [address] [facility] [id number] [place] [address]- 7168 Mar, [facility] [place] [facility] [address] [id number], [place] [address]- 7186 Mar, [facility] [place] [facility] [address] [id number], [place] [address]- 1178 Dec, [facility] [place] [facility] [address] [id number] [place] [address]- 2576 Dec, [facility] [place] [facility] [address] [facility] [id number], [place] [address]- 4118 Nov, [facility] [place] [facility] [address] [facility] [id number] [place] [address]- 1823 Nov, [facility] [place] [facility] [address] [facility] [id number] [place] [address]- 2546 October, [facility] [address] [facility] [id number], [place] [address] 2546 October, [facility] [address] [facility] [id number], [place] [address] 2546 Sep, [facility] [address] [facility] [id number], [place] [address] 2546 Aug, [facility] [id number] [address] 2540 Aug, [facility] [address] [facility] [id number], [place] [address]- 8907 Aug, IMMUNIZATIONS No Known Immunizations SOCIAL HISTORY [...] History COPD - See's Dr Burnette in [facility] Medical History Chronic Heart Failure Surgical History 2 [facility] Surgical History defibrillator - 2012 Hospitalization History pneumonia for a week 2016 Hospitalization History Hospitalized at [facility]- CHF, Chest pain. Dismissed 07/11/17 07/10/2017 Hospitalization History [facility] pneumonia, hypoxia-[facility] 07/30/17 Hospitalization History [facility]- R[facility] PNA, Respiratory Failure. Transfered to [facility] 10/25/2017 Hospitalization History CHF/COPD 11/2017
--- OUTSIDE RECORDS SUMMARY | 2018-03-06 23:16 | XMS REPORT ---
Author Author TEAGAN VERNON Organization [facility] Address [address] [place] [address] Care Team Providers Care Die Turner Name Role Phone TEAGAN VERNON Unavailable PROBLEMS Type Condition ICD9-CM Code XNB88-UH Code Onset Dates Condition Status SNOMED Code Problem Chronic obstructive pulmonary disease with (acute) exacerbation J44.1 Active 418361901 Problem Dependence on supplemental oxygen Z99.81 Active 266866521892 Problem Psychophysiological insomnia F51.04 Active 958973662 Problem Chronic kidney disease, stage III (moderate) N18.3 Active 330873400 Problem Supplemental oxygen dependent Z99.81 Active 659163061371 Problem Cardiomyopathy I42.9 Active 37886184 Problem Chronic obstructive pulmonary disease, unspecified J44.9 Active 05473385 Problem Acute on chronic systolic CHF (congestive heart failure) I50.23 Active 964068885 Problem CKD (chronic kidney disease) stage 4, GFR 15-29 ml/min N18.4 Active 877429189 Problem Essential hypertension I10 Active 83356018 Problem Anemia associated with chronic renal failure D63.1 Active 853663484 Problem Anxiety F41.9 Active 84687237 Problem Chronic systolic heart failure I50.22 Active 130169214 Problem Acute on chronic combined systolic and diastolic CHF (congestive heart failure) I50.43 Active 724147195178189 Problem Mild depression F32.0 Active 724833937 Problem Paroxysmal atrial fibrillation I48.0 Active 206942728 ALLERGIES No Information ENCOUNTERS Encounter Location Date Diagnosis [facility] [address] [facility] [id number] [address] Jan, [facility] [address] [id number] [address] Jan, Acute on chronic systolic CHF (congestive heart failure) I50.23 ; Acute kidney failure, unspecified N17.9 ; Chronic kidney disease, stage III (moderate) N18.3 and Supplemental oxygen dependent Z99.81 [facility] [id number] [place] [address] 20225- 2069 Jan, Acute on chronic combined systolic and diastolic CHF ( congestive heart failure) I50.43 [facility] [id number] [place] [address] 38038- 5899 Jan, [facility] [address] [address] Jan, Irritant contact dermatitis due to cosmetics L24.3 ; Effusion of right wrist M25.431 and Pain in right wrist M25.531 [place] [id number] [place] [address] 60445- 3652 Dec, Chronic systolic heart failure I50.22 ; Chronic obstructive pulmonary disease with (acute) exacerbation J44.1 ; CKD (chronic kidney disease ) stage 4, GFR 15-29 ml/min N18.4 ; Cardiomyopathy I42.9 ; Dependence on supplemental oxygen Z99.81 and Psychophysiological insomnia F51.04 [place] [id number] [place] [address] 71465- 4928 Dec, Anxiety F41.9 [place] [id number] [place] [address] 22741- 6900 Dec, [facility] [place] [id number] [place] [address] 58251- 7200 Dec, [facility] [place] [id number] [place] [address] 53137- 0783 Dec, [facility] [address] [place] [id number] Dec, Encounter for examination for admission to [facility] Z02.2 ; Chronic obstructive pulmonary disease, unspecified J44.9 ; Paroxysmal atrial fibrillation I48.0 ; CKD (chronic kidney disease) stage 4, GFR 15-29 ml/min N18.4 and Cardiomyopathy I42.9 [place] [address] [address] Dec, [facility] [address], [place] [address] Nov, Acute on chronic combined systolic and diastolic CHF ( congestive heart failure) I50.43 [facility] [address] [address] Nov, [facility] [address] [place] [address] 50147- 6335 Nov, [facility] [id number] [place] [address] 91098- 8166 Nov, Chronic systolic heart failure I50.22 ; Paroxysmal atrial fibrillation I48.0 ; Chronic obstructive pulmonary disease with (acute) exacerbation J44.1 ; Chronic kidney disease, stage 4 (severe) N18.4 ; Pain in right hip M25.551 and Pain in left hip M25.552 [facility] [id number] [place] [address] 72093- 0462 Nov, Chronic kidney disease, stage 4 (severe) N18.4 [facility] [address], [place] [address] 4[address] Nov, [facility] [address] [place] [address] 56677- 5212 Nov, [facility] [address], [place] [address] October, Chronic obstructive pulmonary disease with (acute) exacerbation J44.1 ; Chronic systolic heart failure I50.22 ; CKD (chronic kidney disease) stage 4, GFR 15-29 ml/min N18.4 and Dependence on supplemental oxygen Z99.81 [facility] [id number] [place] [address] 00681- 0735 October, [facility] [address] [id number] [address] October, [facility] [address] [id number] [address] Sep, Chronic kidney disease, stage 4 (severe) N18.4 and Chronic kidney disease, stage IV (severe) N18.4 [place] [address] [place] [address] 12851- 8720 Sep, Chronic kidney disease, stage 4 (severe) N18.4 [place] [id number] [place] [address] 56085- 2376 Sep, Anxiety F41.9 ; Paroxysmal atrial fibrillation I48.0 ; Chronic kidney disease, stage 4 (severe) N18.4 ; Chronic systolic heart failure I50.22 and Anemia associated with chronic renal failure D63.1 [place] [id number] [place] [address] 25377- 9562 Sep, [facility] [place] [id number] [place] [address] 94633- 8870 Aug, [facility] [id number] [place] [address] 76163- 5423 Aug, [facility] [address] [place] [id number] Aug, Acute on chronic combined systolic and diastolic CHF (congestive heart failure) I50.43 ; Essential hypertension I10 ; CKD (chronic kidney disease) stage 4, GFR 15-29 ml/min N18.4 ; Paroxysmal atrial fibrillation I48.0 and Mild depression F32.0 [address] [place] [address] 59053- 0025 Aug, [place] [id number] [place] [address] 01122- 5980 Aug, [facility] [id number] [place] [address] 69262- 3297 Aug, Acute on chronic respiratory failure with hypoxia J96.21 ; Acute kidney failure, unspecified N17.9 ; Chronic kidney disease, stage 4 ( severe) N18.4 ; Acute on chronic combined systolic and diastolic CHF ( congestive heart failure) I50.43 ; Paroxysmal atrial fibrillation I48.0 and Cardiomyopathy, unspecified type I42.9 [place] [address], [place] [address]- 0[address] Aug, [facility] [id number] [place] [address] 93020- 2523 14 Jul, 2017 [facility] [address] [place] [address] 30619- 2857 Jul, [facility] [id number] [place] [address] 68611- 6627 Jul, [facility] [id number] [place] [address] 80071- 1592 Jul, [facility] [id number] [place] [address] 96815- 0843 Jul, Community acquired pneumonia of right lower lobe of lung J18.1 ; CKD (chronic kidney disease) stage 4, GFR 15-29 ml/min N18.4 and Shortness of breath R06.02 [facility] [id number] [place] [address] [id number] Jul, [facility] [address] [place] [address] 51115- 6288 Jun, Anxiety F41.9 [facility] [id number] [place] [address] 96353- 3107 13 Apr, 2017 Anxiety F41.9 [facility] [address] [place] [address] 11004- 8740 10 Apr, 2017 Cough R05 and Pneumonia of right lower lobe due to infectious organism J18.1 [facility] [address], [place] [address]- 6823 Apr, [facility] [id number] [place] [address] 98222- 0568 06 Apr, 2017 Chronic kidney disease, stage IV (severe) N18.4 and COPD exacerbation J44.1 [facility] [address] [place] [address] 13683- 2077 Feb, Chronic systolic heart failure I50.22 ; Essential hypertension I10 ; Anemia associated with chronic renal failure D63.1 and Chronic kidney disease, stage 4 (severe) N18.4 [facility] [id number] [place] [address] 93500- 0875 Feb, Anxiety F41.9 [facility] [id number] [place] [address] 19009- 0723 Feb, [facility] [address] 20197- 0393 Feb, [place] [address] 6[address]- 5835 Jan, Other fatigue R53.83 ; Otalgia of both ears H92.03 and Urinary urgency R39.[address] [address]- 6615 Jan, Acute non-recurrent maxillary sinusitis J01.00 ; Chronic systolic heart failure I50.22 ; Stage 3 chronic kidney disease N18.3 and Mild depression F32.0 [place] [id number] [place] [address] 70165- 6057 Sep, [facility] [id number] [place] [address] 29982- 2318 Sep, [facility] [id number] [place] [address] 52747- 6212 Feb, [facility] [id number] [place] [address] 95446- 1135 Feb, [facility] [id number] [place] [address] 96657- 3690 Dec, [facility] [id number] [place] [address] 81524- 3344 Dec, [facility] [id number] [place] [address] 07997- 9416 Nov, [facility] [place] [facility] [address] [id number] [place] [address]- 5808 Nov, [facility] [place] [facility] [address] [id number] [place] [address]- 1277 Nov, [facility] [place] [facility] [address] [id number] [place] [address]- 5136 Nov, [facility] [place] [facility] [address] [id number] [place] [address]- 1627 October, [facility] [place] [facility] [address] [id number] [place] [address]- 0021 October, [facility] [place] [facility] [address] [id number] [place] [address]- 1546 Sep, [facility] [place] [facility] [address] [id number] [place] [address]- 0668 Sep, [facility] [place] [facility] [address] [id number] [place] [address]- 7182 Sep, [facility] [place] [facility] [address] [id number] [place] [address]- 8394 Sep, [facility] [place] [facility] [address] [id number] [place] [address]- 9121 Sep, [facility] [place] [facility] [address] [id number] [place] [address]- 4149 Aug, [facility] [place] [facility] [address] [id number] [place] [address]- 3933 31 Aug, 2013 [facility] [place] [facility] [address] [id number] [place] [address]- 7195 27 Aug, 2013 [facility] [place] [facility] [address] [id number] [place] [address]- 9904 Aug, [facility] [place] [facility] [address] [id number] [place] [address]- 9106 Aug, [facility] [place] [facility] [address] [id number] [place] [address]- 0507 Aug, [facility] [place] [facility] [address] [id number] [place] [address]- 0689 Aug, [facility] [place] [facility] [address] [id number] [place] [address]- 9923 Aug, [facility] [place] [facility] [address] [id number] [place] [address]- 1859 Jul, [facility] [place] [facility] [address] [id number] [place] [address]- 4208 Jul, [facility] [place] [facility] [address] [id number] [place] [address]- 4484 Jul, [facility] [place] [facility] [address] [id number] [place] [address]- 8111 Jul, [facility] [place] [facility] [address] [id number] [place] [address]- 2267 Jul, [facility] [place] [facility] [address] [id number] [place] [address]- 2846 Jul, [facility] [place] [facility] [address] [id number] [place] [address]- 1336 Jun, [facility] [place] [facility] [address] [id number] [place] [address]- 0170 Jun, [facility] [place] [facility] [address] [id number] [place] [address]- 1726 Jun, [facility] [place] [facility] [address] [id number] [place] [address]- 8665 Jun, [facility] [place] [facility] [address] [id number] [place] [address]- 4472 Jun, [facility] [place] [facility] [address] [id number] [place] [address]- 9958 May, [facility] [place] [facility] [address] [id number] [place] [address]- 3039 May, [facility] [place] [facility] [address] [id number] [place] [address]- 2546 May, [facility] [address] [id number] [place] [address]- 2546 May, [facility] [place] [facility] [address] [id number] [place] [address]- 2546 May, [facility] [place] [facility] [address] [id number] [place] [address]- 2546 Apr, [facility] [place] [facility] [address] [id number] [place] [address]- 2546 Apr, [facility] [place] [facility] [address] [id number] [place] [address]- 2546 Mar, [facility] [place] [facility] [address] [id number] [place] [address]- 2546 Mar, [facility] [place] [facility] [address] [id number] [place] [address]- 2546 Mar, [facility] [place] [facility] [address] [id number] [place] [address]- 2540 Mar, [facility] [place] [facility] [address] [id number] [place] [address]- 2546 Feb, [facility] [place] [facility] [address] [id number] [place] [address]- 2546 Jan, [facility] [place] [facility] [address] [id number] [place] [address]- 2546 Jan, [facility] [place] [facility] [address] [id number] [place] [address]- 2546 Aug, [facility] [place] [facility] [address] [id number] [place] [address]- 2546 Jul, [facility] [place] [facility] [address] [id number] [place] [address]- 2546 Jun, [facility] [place] [facility] [address] [id number] [place] [address]- 0335 May, [facility] [place] [facility] [address] [id number] [place] [address]- 4859 May, [facility] [place] [facility] [address] [id number] [place] [address]- 3636 May, [facility] [place] [facility] [address] [id number] [place] 1217 May, [facility] [place] [facility] [address] [id number] [place] [address]- 7017 Apr, [facility] [place] [facility] [address] [id number] [place] [address]- 3809 Apr, [facility] [place] [facility] [address] [id number] [place] [address]- 5281 Mar, [facility] [place] [facility] [address] [facility] [id number] [place] [address]- 5713 Mar, [facility] [place] [facility] [address] [id number] [place] [address]- 0224 Mar, [facility] [place] [facility] [address] [id number] [place] [address]- 0870 Mar, [facility] [place] [facility] [address] [facility] [id number] [place] [address]- 9165 Mar, [facility] [place] [facility] [address] [id number], [place] [address]- 7327 Mar, [facility] [place] [facility] [address] [id number], [place] [address]- 3240 Dec, [facility] [place] [facility] [address] [id number] [place] [address]- 4396 Dec, [facility] [place] [facility] [address] [facility] [id number], [place] [address]- 7920 Nov, [facility] [place] [facility] [address] [facility] [id number] [place] [address]- 0947 Nov, [facility] [place] [facility] [address] [facility] [id number] [place] [address]- 2546 October, [facility] [address] [facility] [id number], [place] [address] 2546 October, [facility] [address] [facility] [id number], [place] [address] 2546 Sep, [facility] [address] [facility] [id number], [place] [address] 2546 Aug, [facility] [id number] [address] 2547 Aug, [facility] [address] [facility] [id number], [place] [address]- 7305 Aug, IMMUNIZATIONS No Known Immunizations SOCIAL HISTORY [...] History COPD - [facility] Medical History Chronic Heart Failure Surgical History 2 cesareans Surgical History defibrillator - 2012 Hospitalization History pneumonia for a week 2016 Hospitalization History Hospitalized at [facility]- CHF, Chest pain. Dismissed 07/11/17 07/10/2017 Hospitalization History [facility] pneumonia, hypoxia-[facility] 07/30/17 Hospitalization History [facility]- R[facility] PNA, Respiratory Failure. Transfered to [place] 10/25/2017 Hospitalization History CHF/COPD 11/2017
--- OUTSIDE RECORDS SUMMARY | 2018-03-06 23:16 | XMS REPORT ---
Author Author TEAGAN VERNON Organization [facility] Address [address] [place] [address] Care Team Providers Care Substation Maintenance Technician Name Role Phone TEAGAN VERNON Unavailable PROBLEMS Type Condition ICD9-CM Code BWR43-DW Code Onset Dates Condition Status SNOMED Code Problem Chronic obstructive pulmonary disease with (acute) exacerbation J44.1 Active 630172304 Problem Dependence on supplemental oxygen Z99.81 Active 503533061687 Problem Psychophysiological insomnia F51.04 Active 629681722 Problem Chronic kidney disease, stage III (moderate) N18.3 Active 692734356 Problem Supplemental oxygen dependent Z99.81 Active 511132584018 Problem Cardiomyopathy I42.9 Active 37290264 Problem Chronic obstructive pulmonary disease, unspecified J44.9 Active 37812043 Problem Acute on chronic systolic CHF (congestive heart failure) I50.23 Active 347480923 Problem CKD (chronic kidney disease) stage 4, GFR 15-29 ml/min N18.4 Active 770028592 Problem Essential hypertension I10 Active 90920922 Problem Anemia associated with chronic renal failure D63.1 Active 466298043 Problem Anxiety F41.9 Active 62668542 Problem Chronic systolic heart failure I50.22 Active 481050405 Problem Acute on chronic combined systolic and diastolic CHF (congestive heart failure) I50.43 Active 577092411236329 Problem Mild depression F32.0 Active 196812013 Problem Paroxysmal atrial fibrillation I48.0 Active 784278431 ALLERGIES Substance Reaction Event Type Date Status Demerol Unknown Drug Allergy Sep, Active Darvocet-N 100 Unknown Drug Allergy Sep, Active Bee Venom Unknown Non Drug Allergy Sep, Active ENCOUNTERS Encounter Location Date Diagnosis [facility] [address] [facility] [id number], [place] [address] Jan, [facility] [address] [facility] [id number], [place] [address] Jan, Acute on chronic systolic CHF (congestive heart failure) I50.23 ; Acute kidney failure, unspecified N17.9 ; Chronic kidney disease, stage III (moderate) N18.3 and Supplemental oxygen dependent Z99.81 [facility] [address] [place] [address] 38075- 7225 Jan, Acute on chronic combined systolic and diastolic CHF ( congestive heart failure) I50.43 [facility] [id number] [place] [address] 97077- 2671 Jan, [facility] [id number] [place] [address] 99778 -5080 Jan, Irritant contact dermatitis due to cosmetics L24.3 ; Effusion of right wrist M25.431 and Pain in right wrist M25.531 [facility] [id number] [place] [address] 97705- 5996 Dec, Chronic systolic heart failure I50.22 ; Chronic obstructive pulmonary disease with (acute) exacerbation J44.1 ; CKD (chronic kidney disease ) stage 4, GFR 15-29 ml/min N18.4 ; Cardiomyopathy I42.9 ; Dependence on supplemental oxygen Z99.81 and Psychophysiological insomnia F51.04 [facility] [address] [place] [address] 04042- 4461 Dec, Anxiety F41.9 [facility] [id number] [place] [address] 83349- 2702 Dec, [facility] [id number] [place] [address] 17151- 3613 Dec, [facility] [id number] [place] [address] 28916- 6664 Dec, [facility] [address] [place] [id number] Dec, Encounter for examination for admission to long term Z02.2 ; Chronic obstructive pulmonary disease, unspecified J44.9 ; Paroxysmal atrial fibrillation I48.0 ; CKD (chronic kidney disease) stage 4, GFR 15-29 ml/min N18.4 and Cardiomyopathy I42.9 [facility] [address] [address] Dec, [facility] [address] [place] [address] 06491- 1099 Nov, Acute on chronic combined systolic and diastolic CHF ( congestive heart failure) I50.43 [facility] [id number] [place] [address] 60098- 5900 27 Nov, 2017 [facility] [address] [place] [address] 26308- 2249 Nov, [facility] [id number] [place] [address] 92635- 3173 Nov, Chronic systolic heart failure I50.22 ; Paroxysmal atrial fibrillation I48.0 ; Chronic obstructive pulmonary disease with (acute) exacerbation J44.1 ; Chronic kidney disease, stage 4 (severe) N18.4 ; Pain in right hip M25.551 and Pain in left hip M25.552 [facility] [address] [address] Nov, Chronic kidney disease, stage 4 (severe) N18.4 [facility] [address] [address] 275[address] Nov, [facility] [address], [place] [address] 27[address] Nov, [facility] [address] [place] [address] 00603- 6933 October, Chronic obstructive pulmonary disease with (acute) exacerbation J44.1 ; Chronic systolic heart failure I50.22 ; CKD (chronic kidney disease) stage 4, GFR 15-29 ml/min N18.4 and Dependence on supplemental oxygen Z99.81 [facility] [address], [place] [address] 37[address] October, [facility] [id number] [place] [address] 46079- 2205 October, [facility] [address], [place] [address] Sep, Chronic kidney disease, stage 4 (severe) N18.4 and Chronic kidney disease, stage IV (severe) N18.4 [facility] [address] [address] 4[address] Sep, Chronic kidney disease, stage 4 (severe) N18.4 [facility] [address] [id number] [address] 4[address] Sep, Anxiety F41.9 ; Paroxysmal atrial fibrillation I48.0 ; Chronic kidney disease, stage 4 (severe) N18.4 ; Chronic systolic heart failure I50.22 and Anemia associated with chronic renal failure D63.1 [facility] [id number] [place] [address] 33286- 9452 Sep, [facility] [id number] [place] [address] 02769- 6808 Aug, [facility] [id number] [place] [address] 65626- 6019 Aug, [facility] [address] [place] [id number] Aug, Acute on chronic combined systolic and diastolic CHF (congestive heart failure) I50.43 ; Essential hypertension I10 ; CKD (chronic kidney disease) stage 4, GFR 15-29 ml/min N18.4 ; Paroxysmal atrial fibrillation I48.0 and Mild depression F32.0 [facility] [address], [place] [address] 77[address] Aug, [facility] [id number] [place] [address] 40074- 8753 Aug, [facility] [address], [place] [address] Aug, Acute on chronic respiratory failure with hypoxia J96.21 ; Acute kidney failure, unspecified N17.9 ; Chronic kidney disease, stage 4 ( severe) N18.4 ; Acute on chronic combined systolic and diastolic CHF ( congestive heart failure) I50.43 ; Paroxysmal atrial fibrillation I48.0 and Cardiomyopathy, unspecified type I42.9 [facility] [id number] [place] [address] 01278- 5304 Aug, [facility] [id number] [place] [address] 10018- 3747 14 Jul, 2017 [facility] [address] [address]- [address] Jul, [facility] [address] 05397- 3609 Jul, [facility] [id number] [place] [address] 10679- 7429 Jul, [facility] [address] [address]- 2006 Jul, Community acquired pneumonia of right lower lobe of lung J18.1 ; CKD (chronic kidney disease) stage 4, GFR 15-29 ml/min N18.4 and Shortness of breath R06.02 [facility] [address] [id number] Jul, 2017 [facility] [id number] [place] [address] 60312- 5567 Jun, Anxiety F41.9 [facility] [address] 84506- 8858 Apr, Anxiety F41.9 [facility] [id number] [place] [address] 65190- 6932 Apr, Cough R05 and Pneumonia of right lower lobe due to infectious organism J18.1 [facility] [id number] [place] [address] 67781- 7936 Apr, [facility] [id number] [place] [address] 36262- 5098 Apr, Chronic kidney disease, stage IV (severe) N18.4 and COPD exacerbation J44.1 [facility] [id number] [place] [address] 85917- 0792 Feb, Chronic systolic heart failure I50.22 ; Essential hypertension I10 ; Anemia associated with chronic renal failure D63.1 and Chronic kidney disease, stage 4 (severe) N18.4 [facility] [id number] [place] [address] 26715- 3688 Feb, Anxiety F41.9 [facility] [id number] [place] [address] 67309- 3521 Feb, [facility] [address] 84140- 0300 Feb, [facility] [id number] [place] [address] 70300- 3569 Jan, Other fatigue R53.83 ; Otalgia of both ears H92.03 and Urinary urgency R39.15 [facility] [id number] [place] [address] 25345- 9826 Jan, Acute non-recurrent maxillary sinusitis J01.00 ; Chronic systolic heart failure I50.22 ; Stage 3 chronic kidney disease N18.3 and Mild depression F32.0 [facility] [id number] [place] [address] 15252- 4012 Sep, [facility] [id number] [place] [address] 87110- 5919 Sep, [facility] [id number] [place] [address] 30007- 6334 Feb, [facility] [address] 45174- 0451 Feb, [facility] [id number] [place] [address] 90250- 7119 Dec, [facility] [id number] [place] [address] 28940- 7987 Dec, [facility] [place] [facility] [address] [id number] [place] [address]- 7108 Nov, [facility] [place] [facility] [address] [id number] [place] [address]- 4748 Nov, [facility] [place] [facility] [address] [id number] [place] [address]- 8292 Nov, [facility] [place] [facility] [address] [id number] [place] [address]- 6458 Nov, [facility] [place] [facility] [address] [id number] [place] [address]- 1871 October, [facility] [place] [facility] [address] [id number] [place] [address]- 0541 October, [facility] [place] [facility] [address] [id number] [place] [address]- 9210 Sep, [facility] [place] [facility] [address] [id number] [place] [address]- 4002 Sep, [facility] [place] [facility] [address] [id number] [place] [address]- 7291 Sep, [facility] [place] [facility] [address] [id number] [place] [address]- 2380 Sep, [facility] [place] [facility] [address] [id number] [place] [address]- 1288 Sep, [facility] [place] [facility] [address] [id number] [place] [address]- 6949 Aug, [facility] [place] [facility] [address] [id number] [place] [address]- 2043 Aug, [facility] [place] [facility] [address] [id number] [place] [address]- 3339 Aug, [facility] [place] [facility] [address] [id number] [place] [address]- 6212 Aug, [facility] [place] [facility] [address] [id number] [place] [address]- 7643 Aug, [facility] [place] [facility] [address] [id number] [place] [address]- 3358 Aug, [facility] [place] [facility] [address] [id number] [place] 0773 Aug, [facility] [place] [facility] [address] [id number] [place] [address]- 9794 Aug, [facility] [place] [facility] [address] [id number] [place] [address]- 2016 Jul, [facility] [place] [facility] [address] [id number] [place] [address]- 4161 Jul, [facility] [place] [facility] [address] [id number] [place] [address]- 2357 Jul, [facility] [place] [facility] [address] [id number] [place] [address]- 5526 Jul, [facility] [place] [facility] [address] [id number] [place] [address]- 1796 Jul, [facility] [place] [facility] [address] [id number] [place] [address]- 8385 Jul, [facility] [place] [facility] [address] [id number] [place] [address]- 0637 Jun, [facility] [place] [facility] [address] [id number] [place] [address]- 0412 Jun, [facility] [place] [facility] [address] [id number] [place] [address]- 7827 Jun, [facility] [place] [facility] [address] [id number] [place] [address]- 6913 Jun, [facility] [place] [facility] [address] [id number] [place] [address]- 6933 Jun, [facility] [place] [facility] [address] [id number] [place] [address]- 1750 May, [facility] [address] [id number] [place] [address]- 4544 May, [facility] [place] [facility] [address] [id number] [place] [address]- 8196 May, [facility] [place] [facility] [address] [id number] [place] [address]- 1736 May, [facility] [place] [facility] [address] [id number] [place] [address]- 8576 May, [facility] [place] [facility] [address] [id number] [place] [address]- 4938 Apr, [facility] [place] [facility] [address] [id number] [place] [address]- 0626 Apr, [facility] [place] [facility] [address] [id number] [place] [address]- 5986 Mar, [facility] [place] [facility] [address] [id number], [place] [address]- 3590 Mar, [facility] [place] [facility] [address] [id number] [place] [address]- 1924 Mar, [facility] [place] [facility] [address] [facility] [id number], [place] [address]- 6196 Mar, [facility] [place] [facility] [address] [facility] [id number], [place] [address]- 4796 Feb, [facility] [place] [facility] [address] [id number], [place] [address]- 3466 Jan, [facility] [place] [facility] [address] [id number] [place] [address]- 5946 Jan, [facility] [place] [facility] [address] [id number], [place] [address]- 4046 Aug, [facility] [place] [facility] [address] [facility] [id number], [place] [address]- 3796 Jul, [facility] [place] [facility] [address] [id number], [place] [address]- 5069 Jun, [facility] [place] [facility] [address] [id number] [place] [address]- 0051 May, [facility] [place] [facility] [address] [facility] [id number] [place] [address]- 0326 May, [facility] [place] [facility] [address] [place] [address]- 6919 May, [facility] [place] [facility] [address] [facility] [id number] [place] [address]- 1939 May, [facility] [place] [facility] [address] [id number] [place] [address], [place] [address]- 4891 Apr, [facility] [place] [facility] [address] [facility] [id number] [place] [address]- 4312 Apr, [facility] [place] [facility] [address] [place] [address] 99637- 2981 Mar, [facility] [place] [facility] [id number] [place] [address]- 2315 Mar, [facility] [place] [facility] [address] [place] [address]- 0558 Mar, [facility] [place] [facility] [id number] [place] [address]- 0223 Mar, [facility] [place] [facility] [address], [place] [address]- 0571 Mar, [facility] [place] [facility] [address] [facility] [id number], [place] [address]- 3196 Mar, [facility] [place] [facility] [id number], [place] [address]- 5780 Dec, [facility] [place] [facility] [address] [facility] [id number] 1408 Dec, [facility] [place] [facility] [id number] 7900 Nov, [facility] [place] [facility] [address] [facility] [id number], [place] [address]- 5636 Nov, [facility] [address] [facility] [id number], [place] [address]- 6841 October, [facility] [address], [place] [address]- 5566 October, [facility] [id number], [place] [address]- 8651 Sep, [facility] [address] [facility] [id number], [place] [address]- 1642 Aug, [facility] [address], [place] [address]- 3228 Aug, [facility] [address] [facility] [id number], [place] [address]- 5387 Aug, IMMUNIZATIONS No Known Immunizations SOCIAL HISTORY Never Assessed REASON FOR VISIT MO follow up-WILLIAM Teague PLAN OF CARE Activity Details Follow Up 4 Weeks with [facility] Reason: VITAL SIGNS Height 60 in 2017-10-14 Weight 173 lbs 2017-10-14 Temperature 98.3 degrees Fahrenheit 2017-10-14 Heart Rate 86 bpm 2017-10-14 Respiratory Rate 20 2017-10-14 BMI 33.78 kg/m2 2017-10-14 Blood pressure systolic 100 mmHg 2017-10-14 Blood pressure diastolic 60 mmHg 2017-10-14 MEDICATIONS Medication Instructions Dosage Frequency Start Date End Date Duration Status Tylenol Extra Strength 500 MG Orally every 6 hrs 2 tablets as needed 6h Active HydrALAZINE HCl 25 MG Orally 2 times a day 1 tablet with food 12h Active Multivitamin Women - Active Magnesium Oxide 1 Tablet by Oral route 1 time per day Apr, Active Levothyroxine Sodium 100 MCG Orally Once a day 1 tablet on an empty stomach in the morning 24h Not-Taking Furosemide 40 mg Orally Once a day 1 tablet 24h Feb, Active Carvedilol 6.25 MG Orally 2 times a day 1 capsule 12h Active Sertraline HCl 100 mg Orally Once a day 1 1/2 tablets 24h 30 days Active Lorazepam 0.5 MG Orally everyday at bedtime 1 tablet Aug, Active Isosorbide Mononitrate ER 30 MG Orally twice a day 1 tablets 12h Active ProAir HFA 108 (90 Base) MCG/ACT Inhalation every 6 hrs 2 puffs as needed 6h Active Amiodarone HCl 200 mg Orally Once a day 1 tablet 24h 90 days Active RESULTS No Results PROCEDURES Procedure Date Ordered Result Body Site [facility] VISIT ESTABLISHED PATIENT October 14, 2017 INSTRUCTIONS MEDICATIONS ADMINISTERED No Known Medications MEDICAL (GENERAL) HISTORY Type Description Date Medical History hyperlipidemia Medical History htn Medical History kidney failure stage 4 - dx in 2012 Medical History hypothyroidisim Medical History neuropathy Medical History COPD - See's Dr Burnette in [facility] Medical History Chronic Heart Failure Surgical History 2 cesareans Surgical History defibrillator - 2012 Hospitalization History pneumonia for a week 2016 Hospitalization History Hospitalized at [facility]- CHF, Chest pain. Dismissed 07/11/17 07/10/2017 Hospitalization History [facility] pneumonia, hypoxia-[facility] 07/30/17 Hospitalization History [facility]- [facility] PNA, Respiratory Failure. Transfered to [facility] 10/25/2017 Hospitalization History CHF/COPD 11/2017
--- OUTSIDE RECORDS SUMMARY | 2018-03-06 23:17 | XMS REPORT ---
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 Name Role Phone TEAGAN VERNON Unavailable PROBLEMS Type Condition ICD9-CM Code ZYB79-[id number] Code Onset Dates Condition Status SNOMED Code Problem Anxiety F41.9 Active 14860328 Problem Paroxysmal atrial fibrillation I48.0 Active 415285233 Problem Acute on chronic combined systolic and diastolic CHF (congestive heart failure) I50.43 Active 255285609830973 Problem Essential hypertension I10 Active 60838708 Problem Chronic systolic heart failure I50.22 Active 348419903 Problem Mild depression F32.0 Active 064522295 Problem Anemia associated with chronic renal failure D63.1 Active 281652367 Problem Chronic obstructive pulmonary disease, unspecified J44.9 Active 07390799 Problem Cardiomyopathy I42.9 Active 12840655 Problem Dependence on supplemental oxygen Z99.81 Active 478715761859 Problem Chronic obstructive pulmonary disease with (acute) exacerbation J44.1 Active 505814155 Problem CKD (chronic kidney disease) stage 4, GFR 15-29 ml/min N18.4 Active 148728834 Problem Psychophysiological insomnia F51.04 Active 154376120 ALLERGIES No Information ENCOUNTERS Encounter Location Date Diagnosis [facility] [id number] [address] Jan, [facility] [address], [place] [address] Jan, [place] [id number] [place] [address]- 4033 Dec, Chronic systolic heart failure I50.22 ; Chronic obstructive pulmonary disease with (acute) exacerbation J44.1 ; CKD (chronic kidney disease ) stage 4, GFR 15-29 ml/min N18.4 ; Cardiomyopathy I42.9 ; Dependence on supplemental oxygen Z99.81 and Psychophysiological insomnia F51.04 [place] [address], [place] [address] Dec, Anxiety F41.9 [place] [address], [place] [address] Dec, [place] [address], [place] [address] 8[address] Dec, [place] [id number], [place] [address] Dec, [facility] [address] [place] [id number] Dec, 2017 Encounter [facility] Z02.2 ; Chronic obstructive pulmonary disease, unspecified J44.9 ; Paroxysmal atrial fibrillation I48.0 ; CKD (chronic kidney disease) stage 4, GFR 15-29 ml/min N18.4 and Cardiomyopathy I42.9 [place] [id number], [place] [address] Dec, [place] [id number] [place] [address] 19830- 3832 Nov, Acute on chronic combined systolic and diastolic CHF ( congestive heart failure) I50.43 [place] [address], [place] [address] 27 Nov, 2017 [place] [address], [place] [address] Nov, [place] [address], [place] [address] Nov, Chronic systolic heart failure I50.22 ; Paroxysmal atrial fibrillation I48.0 ; Chronic obstructive pulmonary disease with (acute) exacerbation J44.1 ; Chronic kidney disease, stage 4 (severe) N18.4 ; Pain in right hip M25.551 and Pain in left hip M25.552 [place] [address], [place] [address] Nov, Chronic kidney disease, stage 4 (severe) N18.4 [facility] [id number] [place] [address] 49304- 9098 Nov, [facility] [id number] [place] [address] 65336- 3221 Nov, [facility] [id number] [place] [address] 02924- 3692 October, Chronic obstructive pulmonary disease with (acute) exacerbation J44.1 ; Chronic systolic heart failure I50.22 ; CKD (chronic kidney disease) stage 4, GFR 15-29 ml/min N18.4 and Dependence on supplemental oxygen Z99.81 [facility] [id number] [place] [address] 40323- 3613 October, [facility] [id number] [place] [address] 95286- 9499 October, [facility] [id number] [place] [address] 94369- 6209 Sep, Chronic kidney disease, stage 4 (severe) N18.4 and Chronic kidney disease, stage IV (severe) N18.4 [facility] [id number] [place] [address] 63376- 4919 Sep, Chronic kidney disease, stage 4 (severe) N18.4 [facility] [id number] [place] [address] 43962- 0697 Sep, Anxiety F41.9 ; Paroxysmal atrial fibrillation I48.0 ; Chronic kidney disease, stage 4 (severe) N18.4 ; Chronic systolic heart failure I50.22 and Anemia associated with chronic renal failure D63.1 [facility] [id number] [place] [address] 83408- 1011 Sep, [facility] [id number] [place] [address] 37270- 3725 Aug, [facility] [id number] [place] [address] 93194- 8227 Aug, [facility] [address] [place] [id number] Aug, Acute on chronic combined systolic and diastolic CHF (congestive heart failure) I50.43 ; Essential hypertension I10 ; CKD (chronic kidney disease) stage 4, GFR 15-29 ml/min N18.4 ; Paroxysmal atrial fibrillation I48.0 and Mild depression F32.0 [place] [id number] [place] [address] 63015- 9600 Aug, [facility] [id number] [place] [address] 29245- 2140 Aug, [place] [id number] [place] [address] 56645- 5129 Aug, Acute on chronic respiratory failure with hypoxia J96.21 ; Acute kidney failure, unspecified N17.9 ; Chronic kidney disease, stage 4 ( severe) N18.4 ; Acute on chronic combined systolic and diastolic CHF ( congestive heart failure) I50.43 ; Paroxysmal atrial fibrillation I48.0 and Cardiomyopathy, unspecified type I42.9 [facility] [id number] [place] [address] 47604- 3206 Aug, [facility] [id number] [place] [address] 52657- 2060 Jul, [facility] [id number] [place] [address] 98626- 4708 Jul, [facility] [id number] [place] [address] 20001- 3894 Jul, [facility] [id number] [place] [address] 86347- 6958 Jul, [facility] [id number] [place] [address] 98949- 0262 Jul, Community acquired pneumonia of right lower lobe of lung J18.1 ; CKD (chronic kidney disease) stage 4, GFR 15-29 ml/min N18.4 and Shortness of breath R06.02 [facility] [id number] [place] [address] [id number] Jul, [facility] [id number] [place] [address] 96909- 2332 Jun, Anxiety F41.9 [facility] [id number] [place] [address] 99144- 7098 Apr, Anxiety F41.9 [place] [address] [address] 8894 Apr, Cough R05 and Pneumonia of right lower lobe due to infectious organism J18.1 [place] [address] [address]- 8616 07 Apr, 2017 [place] [id number] [place] [address] 16077- 7207 Apr, Chronic kidney disease, stage IV (severe) N18.4 and COPD exacerbation J44.1 [place] [id number] [place] [address] 23092- 8586 Feb, Chronic systolic heart failure I50.22 ; Essential hypertension I10 ; Anemia associated with chronic renal failure D63.1 and Chronic kidney disease, stage 4 (severe) N18.4 [place] [id number] [place] [address] 10599- 5195 Feb, Anxiety F41.9 [place] [id number] [place] [address] 86791- 8534 Feb, [place] [id number] [place] [address] 43681- 5242 Feb, [place] [id number] [place] [address] 36972- 4690 Jan, Other fatigue R53.83 ; Otalgia of both ears H92.03 and Urinary urgency R39.15 [place] [id number] [place] [address] 04004- 1318 Jan, Acute non-recurrent maxillary sinusitis J01.00 ; Chronic systolic heart failure I50.22 ; Stage 3 chronic kidney disease N18.3 and Mild depression F32.0 [facility] [id number] [address] 14 Sep, 2014 [facility] [address] [facility] [id number] [place] [address] Sep, [facility] [place] [address] [facility] [id number] [place] 4729 Feb, [facility] [address] [facility] [id number] [place] [address]206 Feb, [facility] [place] [id number] [place] [address]- 2288 Dec, [facility] [id number] 4547 Dec, [facility] [id number] [place] [address]- 2225 Nov, [facility] [id number] [place] [address]- 0428 Nov, [facility] [address], [place] [address]- 2814 Nov, [facility] [id number], [place] [address]- 8775 Nov, [facility] [id number], [place] [address]- 6960 October, [facility] [address] [facility] [id number] [address]294 October, [facility] [id number] 0193 Sep, [facility] [address] [facility] [id number] 1728 Sep, [facility] [id number], [place] [address]- 7698 Sep, [facility] [place] [facility] [address] [id number] [place] [address]- 2755 Sep, [facility] [place] [facility] [address] [id number] [place] 4902 Sep, [facility] [place] [facility] [address] [id number] [place] [address]- 9878 Aug, [facility] [place] [facility] [address] [id number] [place] 8484 Aug, [facility] [place] [facility] [address] [id number] [place] [address]- 0636 Aug, [facility] [place] [facility] [address] [id number] [place] [address]- 6824 Aug, [facility] [place] [facility] [address] [id number] [place] [address]- 2606 Aug, [facility] [place] [facility] [address] [id number] [place] [address]- 4176 Aug, [facility] [place] [facility] [address] [id number] [place] [address]- 0241 Aug, [facility] [place] [facility] [address] [id number] [place] [address]- 1588 Aug, [facility] [place] [facility] [address] [id number] [place] [address]- 3703 Jul, [facility] [place] [facility] [address] [id number] [place] [address]- 3382 Jul, [facility] [place] [facility] [address] [id number] [place] [address]- 8314 Jul, [facility] [place] [facility] [address] [id number] [place] [address]- 8458 Jul, [facility] [place] [facility] [address] [id number] [place] [address]- 3452 Jul, [facility] [place] [facility] [address] [id number] [place] [address]- 3234 03 Jul, 2013 [facility] [address] [id number] [place] [address]- 9319 Jun, [facility] [place] [facility] [address] [id number] [place] [address]- 9001 Jun, [facility] [place] [facility] [address] [id number] [place] [address]- 6864 14 Jun, 2013 [facility] [place] [facility] [address] [id number] [place] [address]- 8070 Jun, [facility] [place] [facility] [address] [id number] [place] [address]- 3594 Jun, [facility] [place] [facility] [address] [id number] [place] [address]- 7387 May, [facility] [place] [facility] [address] [id number] [place] [address]- 6699 May, [facility] [place] [facility] [address] [id number] [place] [address]- 5637 May, [facility] [place] [facility] [address] [id number] [place] [address]- 0442 May, [facility] [place] [facility] [address] [id number] [place] [address]- 0085 May, [facility] [place] [facility] [address] [id number] [place] [address]- 7217 Apr, [facility] [place] [facility] [address] [id number] [place] [address]- 3188 Apr, [facility] [place] [facility] [address] [id number] [place] [address]- 3656 Mar, [facility] [place] [facility] [address] [id number] [place] [address]- 2546 Mar, [facility] [place] [facility] [address] [id number] [place] [address]- 2133 Mar, [facility] [place] [facility] [address] [id number] [place] [address]- 8941 Mar, [facility] [place] [facility] [address] [id number] [place] [address]- 6542 16 Feb, 2013 [facility] [place] [facility] [address] [id number] [place] [address]- 2623 Jan, [facility] [place] [facility] [address] [id number] [place] [address]- 1157 Jan, [facility] [place] [facility] [address] [id number] [place] [address]- 1190 Aug, [facility] [place] [facility] [address] [id number] [place] [address]- 3805 Jul, [facility] [place] [facility] [address] [id number] [place] [address]- 7164 Jun, [facility] [place] [facility] [address] [id number] [place] [address]- 2998 May, [facility] [place] [facility] [address] [id number] [place] [address]- 1326 May, [facility] [place] [facility] [address] [id number] [place] [address]- 3552 May, [facility] [place] [facility] [address] [id number] [place] [address]- 2821 May, [facility] [place] [facility] [address] [id number], [place] [address]- 7325 Apr, [facility] [place] [facility] [address] [id number] [place] [address]- 4314 Apr, [facility] [place] [facility] [address] [id number] [place] [address]- 5880 Mar, [facility] [place] [facility] [address] [id number] [place] [address]- 0684 Mar, [facility] [place] [facility] [id number], [place] [address]- 0946 Mar, [facility] [address], [place] [address]- 0554 Mar, [facility] [address], [place] [address]- 8811 Mar, [facility] [address], [place] [address]- 4173 Mar, [facility] [address], [place] [address]- 5072 Dec, [facility] [id number] [place] [address] 29690- 7661 Dec, [facility] [address], [place] [address]- 9743 Nov, [facility] [address], [place] [address]- 9220 Nov, [facility] [address], [place] [address]- 6558 October, [facility] [address], [place] [address]- 3313 October, [facility] [address], [place] [address]- 5912 Sep, [facility] [address], [place] [address]- 6870 Aug, [facility] [address], [place] [address]- 9075 Aug, [facility] [id number], [place] [address]- 7207 Aug, IMMUNIZATIONS No Known Immunizations SOCIAL HISTORY Never Assessed REASON FOR VISIT refill requests PLAN OF CARE VITAL SIGNS MEDICATIONS Unknown Medications RESULTS No Results PROCEDURES No Known procedures INSTRUCTIONS MEDICATIONS ADMINISTERED No Known Medications MEDICAL (GENERAL) HISTORY Type Description Date Medical History hyperlipidemia Medical History htn Medical History kidney failure stage 4 - dx in 2013 Medical History hypothyroidisim Medical History neuropathy Medical History COPD - See's Dr Burnette in the [facility] Medical History Chronic Heart Failure Surgical History 2 cesareans Surgical History defibrillator - 2012 Hospitalization History pneumonia for a week 2017 Hospitalization History Hospitalized at [facility]- CHF, Chest pain. Dismissed 07/11/17 07/10/2017 Hospitalization History [facility] pneumonia, hypoxia-[facility] 07/30/17 Hospitalization History [facility]- RLL PNA, Respiratory Failure. Transfered to [facility] 10/25/2017 Hospitalization History CHF/COPD 11/2017
--- OUTSIDE RECORDS SUMMARY | 2018-03-06 23:17 | XMS REPORT ---
Author Author TEAGAN VERNON Organization [facility] Address [address] [place] [address] Care Team Providers Care Environmental Research Scientist Name Role Phone TEAGAN VERNON Unavailable PROBLEMS Type Condition ICD9-CM Code UHI94-FX Code Onset Dates Condition Status SNOMED Code Problem Anxiety F41.9 Active 17884078 Problem Paroxysmal atrial fibrillation I48.0 Active 964847641 Problem Acute on chronic combined systolic and diastolic CHF (congestive heart failure) I50.43 Active 404565373460631 Problem Essential hypertension I10 Active 36047855 Problem Chronic systolic heart failure I50.22 Active 440108092 Problem Mild depression F32.0 Active 181041665 Problem Anemia associated with chronic renal failure D63.1 Active 540900096 Problem Chronic obstructive pulmonary disease, unspecified J44.9 Active 60715018 Problem Cardiomyopathy I42.9 Active 27517881 Problem Dependence on supplemental oxygen Z99.81 Active 290682399315 Problem Chronic obstructive pulmonary disease with (acute) exacerbation J44.1 Active 485781182 Problem CKD (chronic kidney disease) stage 4, GFR 15-29 ml/min N18.4 Active 338715497 Problem Psychophysiological insomnia F51.04 Active [id number] ALLERGIES No Information ENCOUNTERS Encounter Location Date Diagnosis [facility] [id number] [place] [address] 45517- 0627 Jan, [facility] [address], [place] [address] Jan, [facility] [id number] [place] [address] 29145 -1627 Jan, Irritant contact dermatitis due to cosmetics L24.3 ; Effusion of right wrist M25.431 and Pain in right wrist M25.531 [facility] [address] [place] [address] 61993- 7257 Dec, Chronic systolic heart failure I50.22 ; Chronic obstructive pulmonary disease with (acute) exacerbation J44.1 ; CKD (chronic kidney disease ) stage 4, GFR 15-29 ml/min N18.4 ; Cardiomyopathy I42.9 ; Dependence on supplemental oxygen Z99.81 and Psychophysiological insomnia F51.04 [place] [id number] [place] [address] 33183- 7704 Dec, Anxiety F41.9 [place] [address] [place] [id number] [place] [address] 79561- 9741 Dec, [place] [id number] [place] [address] 09614- 0020 Dec, [place] [id number] [place] [address] 13939- 0106 Dec, [facility] [address] [facility] [place] [id number] Dec, Encounter for examination for admission to fdc Z02.2 ; Chronic obstructive pulmonary disease, unspecified J44.9 ; Paroxysmal atrial fibrillation I48.0 ; CKD (chronic kidney disease) stage 4, GFR 15-29 ml/min N18.4 and Cardiomyopathy I42.9 [place] [id number] [place] [address] 68743- 4159 Dec, [place] [id number] [place] [address] 05704- 9472 Nov, Acute on chronic combined systolic and diastolic CHF ( congestive heart failure) I50.43 [place] [address] [address] 3994 Nov, [place] [address] [place] [address] [id number] [place] [address] 75031- 3792 Nov, [place] [address] [id number] [place] [address] 64227- 1628 Nov, Chronic systolic heart failure I50.22 ; Paroxysmal atrial fibrillation I48.0 ; Chronic obstructive pulmonary disease with (acute) exacerbation J44.1 ; Chronic kidney disease, stage 4 (severe) N18.4 ; Pain in right hip M25.551 and Pain in left hip M25.552 [place] [address] 73780- 3329 Nov, Chronic kidney disease, stage 4 (severe) N18.4 [place] [id number] [place] [address] 52966- 6621 Nov, [place] [address] 57192- 1423 Nov, [place] [address] 40494- 7676 October, Chronic obstructive pulmonary disease with (acute) exacerbation J44.1 ; Chronic systolic heart failure I50.22 ; CKD (chronic kidney disease) stage 4, GFR 15-29 ml/min N18.4 and Dependence on supplemental oxygen Z99.81 [place] [address] 69036- 7055 October, [place] [id number] [place] [address] 92993- 4640 October, [place] [address] [place] [id number] [place] [address] 25458- 4420 Sep, Chronic kidney disease, stage 4 (severe) N18.4 and Chronic kidney disease, stage IV (severe) N18.4 [place] [id number] [place] [address] 83022- 9252 Sep, Chronic kidney disease, stage 4 (severe) N18.4 [place] [id number] [place] [address] 71202- 2453 Sep, Anxiety F41.9 ; Paroxysmal atrial fibrillation I48.0 ; Chronic kidney disease, stage 4 (severe) N18.4 ; Chronic systolic heart failure I50.22 and Anemia associated with chronic renal failure D63.1 [place] [id number] [place] [address] 65159- 7056 Sep, [facility] [address], [place] [address] 9125 Aug, [facility] [id number] [place] [address] 51329- 9049 Aug, [facility] [address] [facility] [place] [place] [id number] Aug, Acute on chronic combined systolic and diastolic CHF (congestive heart failure) I50.43 ; Essential hypertension I10 ; CKD (chronic kidney disease) stage 4, GFR 15-29 ml/min N18.4 ; Paroxysmal atrial fibrillation I48.0 and Mild depression F32.0 [facility] [address] [id number] [place] [address] 99020- 6483 Aug, [facility] [address] [id number] [place] [address] 22184- 5297 Aug, [facility] [id number] [place] [address] 87088- 9635 Aug, Acute on chronic respiratory failure with hypoxia J96.21 ; Acute kidney failure, unspecified N17.9 ; Chronic kidney disease, stage 4 ( severe) N18.4 ; Acute on chronic combined systolic and diastolic CHF ( congestive heart failure) I50.43 ; Paroxysmal atrial fibrillation I48.0 and Cardiomyopathy, unspecified type I42.9 [facility] [address], [place] [address]- 5658 Aug, [facility] [address] [place] [address] 26524- 4326 Jul, [facility] [address], [place] [address]- 3611 Jul, [facility] [address] [place] [id number] [place] [address] 75077- 0300 Jul, [facility] [address], [place] [address]- 5003 Jul, [facility] [id number] [place] [address] 64316- 1489 06 Jul, 2017 Community acquired pneumonia of right lower lobe of lung J18.1 ; CKD (chronic kidney disease) stage 4, GFR 15-29 ml/min N18.4 and Shortness of breath R06.02 [facility] [id number] [id number] Jul, [place] [address] [address] [id number] [place] [address] 46548- 7811 Jun, Anxiety F41.9 [place] [address] [place] [id number] [place] [address] 32448- 3889 Apr, Anxiety F41.9 [place] [address] [id number] [place] [address] 71173- 6188 Apr, Cough R05 and Pneumonia of right lower lobe due to infectious organism J18.1 [place] [id number] [place] [address] 81640- 1036 Apr, [place] [address] [id number] [place] [address] 75009- 5051 Apr, Chronic kidney disease, stage IV (severe) N18.4 and COPD exacerbation J44.1 [place] [address] [id number] [place] [address] 67198- 8875 Feb, Chronic systolic heart failure I50.22 ; Essential hypertension I10 ; Anemia associated with chronic renal failure D63.1 and Chronic kidney disease, stage 4 (severe) N18.4 [place] [address] [place] [address] 40515- 8821 Feb, Anxiety F41.9 [place] [address] [place] [id number] [place] [address] 65010- 0690 Feb, [place] [address] [place] [address] 27773- 7152 Feb, [place] [id number] [place] [address] 29600- 4643 Jan, Other fatigue R53.83 ; Otalgia of both ears H92.03 and Urinary urgency R39.15 [facility] [id number] [place] [address] 19611- 6814 Jan, Acute non-recurrent maxillary sinusitis J01.00 ; Chronic systolic heart failure I50.22 ; Stage 3 chronic kidney disease N18.3 and Mild depression F32.0 [facility] [id number] [place] [address] 20072- 3338 Sep, [facility] [id number] [place] [address] 56368- 0578 Sep, [facility] [id number] [place] [address] 87429- 2943 Feb, [facility] [id number] [place] [address] 99911- 6891 Feb, [facility] [id number] [place] [address] 10129- 5332 Dec, [facility] [id number] [place] [address] 59598- 9884 Dec, [facility] [id number] [place] [address] 46851- 6738 Nov, [facility] [id number] [place] [address] 81033- 0759 Nov, [facility] [id number] [place] [address] 90357- 9266 Nov, [facility] [id number] [place] [address] 43204- 5613 Nov, [facility] [id number] [place] [address] 78130- 1222 October, [facility] [address], [place] [address]- 2443 October, [facility] [id number] [place] [address] 31054- 2336 Sep, [facility] [place] [facility] [address] [id number] [place] [address]- 4778 Sep, [facility] [place] [facility] [address] [id number] [place] [address]- 4066 Sep, [facility] [place] [facility] [address] [id number] [place] [address]- 9864 Sep, [facility] [place] [facility] [address] [id number] [place] [address]- 3078 Sep, [facility] [place] [facility] [address] [id number] [place] [address]- 8228 Aug, [facility] [place] [facility] [address] [id number] [place] [address]- 0613 Aug, [facility] [place] [facility] [address] [id number] [place] [address]- 5441 Aug, [facility] [place] [facility] [address] [id number] [place] [address]- 3688 Aug, [facility] [place] [facility] [address] [id number] [place] [address]- 8475 Aug, [facility] [place] [facility] [address] [id number] [place] [address]- 9874 Aug, [facility] [place] [facility] [address] [id number] [place] [address]- 8903 Aug, [facility] [place] [facility] [address] [id number] [place] [address]- 1343 Aug, [facility] [place] [facility] [address] [id number] [place] [address]- 4940 Jul, [facility] [place] [facility] [address] [id number] [place] [address]- 8186 Jul, [facility] [place] [facility] [address] [id number] [place] [address]- 2546 Jul, [facility] [place] [facility] [address] [id number] [place] [address]- 2331 05 Jul, 2013 [facility] [address] [id number] [place] [address]- 3309 Jul, [facility] [place] [facility] [address] [id number] [place] [address]- 8016 Jul, [facility] [place] [facility] [address] [id number] [place] [address]- 7903 Jun, [facility] [place] [facility] [address] [id number] [place] [address]- 5983 Jun, [facility] [place] [facility] [address] [id number] [place] [address]- 5324 Jun, [facility] [place] [facility] [address] [id number] [place] [address]- 4522 Jun, [facility] [place] [facility] [address] [id number] [place] [address]- 6451 Jun, [facility] [place] [facility] [address] [id number] [place] [address]- 8251 May, [facility] [place] [facility] [address] [id number] [place] [address]- 8464 May, [facility] [place] [facility] [address] [id number] [place] [address]- 6559 May, [facility] [place] [facility] [address] [id number] [place] [address]- 0379 May, [facility] [place] [facility] [address] [id number] [place] [address]- 0931 May, [facility] [place] [facility] [address] [id number] [place] [address]- 4062 Apr, [facility] [place] [facility] [address] [id number] [place] [address]- 2836 Apr, [facility] [place] [facility] [address] [id number] [place] [address]- 1120 Mar, [facility] [place] [facility] [address] [id number] [place] [address]- 5886 Mar, [facility] [place] [facility] [address] [id number] [place] [address]- 2397 Mar, [facility] [place] [facility] [address] [id number] [place] [address]- 3853 Mar, [facility] [place] [facility] [address] [id number] [place] [address]- 3832 Feb, [facility] [place] [facility] [address] [id number] [place] [address]- 4055 Jan, [facility] [place] [facility] [address] [id number] [place] [address]- 9670 Jan, [facility] [place] [facility] [address] [id number] [place] [address]- 5886 Aug, [facility] [place] [facility] [address] [id number] [place] [address]- 3734 Jul, [facility] [place] [facility] [address] [id number] [place] [address]- 4688 Jun, [facility] [place] [facility] [address] [id number] [place] [address]- 0656 May, [facility] [place] [facility] [address] [id number], [place] [address]- 2433 May, [facility] [place] [facility] [address] [id number], [place] [address]- 4459 May, [facility] [place] [facility] [address] [id number] [place] [address]- 0245 May, [facility] [place] [facility] [address] [id number] [place] [address]- 6096 Apr, [facility] [place] [facility] [address] [facility] [id number] [place] [address]- 6941 Apr, [facility] [place] [facility] [address] [id number] [place] [address] 2546 Mar, [facility] [address] [id number] [place] [address] 2546 Mar, [facility] [address] [facility] [id number] [place] [address] 2546 Mar, [facility] [address] [facility] [id number] [place] [address] 2546 Mar, [facility] [address] [id number] [place] [address] 2546 Mar, [facility] [address] [id number] [place] [address]- 7966 Mar, [facility] [address] [facility] [id number] [place] [address]- 2546 Dec, [facility] [address] [facility] [id number] [place] [address]- 2546 Dec, [facility] [address] [facility] [id number] [place] [address]- 2546 Nov, [facility] [address] [facility] [id number] [place] [address]- 2546 Nov, [facility] [address] [facility] [id number] [place] [address]- 2546 October, [facility] [address] [facility] [id number] [place] [address]- 2546 October, [facility] [address] [facility] [id number], [place] [address]- 2546 Sep, [facility] [address] [facility] [id number] [place] [address]- 2546 Aug, [facility] [address] [facility] [id number] [place] [address]- 2546 Aug, [facility] [address] [facility] [id number], [place] [address]- 2546 Aug, IMMUNIZATIONS No Known Immunizations SOCIAL HISTORY Never Assessed REASON FOR VISIT lab orders PLAN OF CARE VITAL SIGNS MEDICATIONS Unknown Medications RESULTS No Results PROCEDURES No Known procedures INSTRUCTIONS MEDICATIONS ADMINISTERED No Known Medications MEDICAL (GENERAL) HISTORY Type Description Date Medical History hyperlipidemia Medical History htn Medical History kidney failure stage 4 - dx in 2012 Medical History hypothyroidisim Medical History neuropathy Medical History COPD - See's Dr Burnette in [facility] Medical History Chronic Heart Failure Surgical History 2 cesareans Surgical History defibrillator - 2012 Hospitalization History pneumonia for a week 2016 Hospitalization History Hospitalized at [facility]- CHF, Chest pain. Dismissed 07/11/17 07/10/2017 Hospitalization History [facility] pneumonia, hypoxia-[facility] 07/30/17 Hospitalization History [facility]- RLL PNA, Respiratory Failure. Transfered to [place] 10/25/2017 Hospitalization History CHF/COPD 11/2017
--- OUTSIDE RECORDS SUMMARY | 2018-03-06 23:17 | XMS REPORT ---
Author Author TEAGAN VERNON Organization [facility] [place] Address [address] [place] [address] Care Team Providers Care Outpatient Services Director Name Role Phone TEAGAN VERNON Unavailable PROBLEMS Type Condition ICD9-CM Code LBC01-TW Code Onset Dates Condition Status SNOMED Code Problem Anxiety F41.9 Active 74079517 Problem Paroxysmal atrial fibrillation I48.0 Active 031527007 Problem Acute on chronic combined systolic and diastolic CHF (congestive heart failure) I50.43 Active 601806120208229 Problem Essential hypertension I10 Active 92612296 Problem Chronic systolic heart failure I50.22 Active 440672751 Problem Mild depression F32.0 Active 219604405 Problem Anemia associated with chronic renal failure D63.1 Active 895075365 Problem Chronic obstructive pulmonary disease, unspecified J44.9 Active 90272781 Problem Cardiomyopathy I42.9 Active 85791265 Problem Dependence on supplemental oxygen Z99.81 Active 343874670552 Problem Chronic obstructive pulmonary disease with (acute) exacerbation J44.1 Active 602550171 Problem CKD (chronic kidney disease) stage 4, GFR 15-29 ml/min N18.4 Active 935546558 Problem Psychophysiological insomnia F51.04 Active 525274842 ALLERGIES No Information ENCOUNTERS Encounter Location Date Diagnosis [facility] [place] [id number] [place] [address] 02769- 3860 Jan, [facility] [place] [address] [address] Jan, [facility] [address] [place] [address] 81496 -7486 Jan, Irritant contact dermatitis due to cosmetics L24.3 ; Effusion of right wrist M25.431 and Pain in right wrist M25.531 [facility] [place] [address] [place] [address] 27927- 9426 Dec, Chronic systolic heart failure I50.22 ; Chronic obstructive pulmonary disease with (acute) exacerbation J44.1 ; CKD (chronic kidney disease ) stage 4, GFR 15-29 ml/min N18.4 ; Cardiomyopathy I42.9 ; Dependence on supplemental oxygen Z99.81 and Psychophysiological insomnia F51.04 [facility] [address] [place] [address] 96634- 6514 Dec, Anxiety F41.9 [facility] [id number] [place] [address] 84436- 6520 Dec, [facility] [id number] [place] [address] 81051- 7510 Dec, [facility] [id number] [place] [address] 09513- 3166 Dec, [facility] [address] [facility] [place] [id number] Dec, Encounter for examination for admission to correction Z02.2 ; Chronic obstructive pulmonary disease, unspecified J44.9 ; Paroxysmal atrial fibrillation I48.0 ; CKD (chronic kidney disease) stage 4, GFR 15-29 ml/min N18.4 and Cardiomyopathy I42.9 [place] [address] [place] [address] 41682- 0567 Dec, [facility] [address] [place] [address] 53069- 9614 Nov, Acute on chronic combined systolic and diastolic CHF ( congestive heart failure) I50.43 [facility] [address], [place] [address] 4738 Nov, [facility] [id number] [place] [address] 90896- 7491 Nov, [facility] [id number] [place] [address] 94179- 1842 Nov, Chronic systolic heart failure I50.22 ; Paroxysmal atrial fibrillation I48.0 ; Chronic obstructive pulmonary disease with (acute) exacerbation J44.1 ; Chronic kidney disease, stage 4 (severe) N18.4 ; Pain in right hip M25.551 and Pain in left hip M25.552 [place] [address] [address]59- 0874 Nov, Chronic kidney disease, stage 4 (severe) N18.4 [facility] [id number] [place] [address] 42209- 0891 Nov, [place] [address] 75497- 9662 Nov, [place] [address] 16830- 9123 October, Chronic obstructive pulmonary disease with (acute) exacerbation J44.1 ; Chronic systolic heart failure I50.22 ; CKD (chronic kidney disease) stage 4, GFR 15-29 ml/min N18.4 and Dependence on supplemental oxygen Z99.81 [place] [address] 59137- 9723 October, [facility] [id number] [place] [address] 09515- 7701 October, [facility] [id number] [place] [address] 26524- 1662 Sep, Chronic kidney disease, stage 4 (severe) N18.4 and Chronic kidney disease, stage IV (severe) N18.4 [facility] [id number] [place] [address] 79854- 3087 Sep, Chronic kidney disease, stage 4 (severe) N18.4 [facility] [id number] [place] [address] 91101- 3882 Sep, Anxiety F41.9 ; Paroxysmal atrial fibrillation I48.0 ; Chronic kidney disease, stage 4 (severe) N18.4 ; Chronic systolic heart failure I50.22 and Anemia associated with chronic renal failure D63.1 [place] [id number] [place] [address] 57164- 3859 Sep, [facility] [place] [address], [place] [address] 1610 Aug, [facility] [place] [id number] [place] [address] 82902- 4901 Aug, [facility] [address] [facility] [place] [id number] Aug, Acute on chronic combined systolic and diastolic CHF (congestive heart failure) I50.43 ; Essential hypertension I10 ; CKD (chronic kidney disease) stage 4, GFR 15-29 ml/min N18.4 ; Paroxysmal atrial fibrillation I48.0 and Mild depression F32.0 [facility] [place] [id number] [place] [address] 55801- 5407 Aug, [facility] [place] [id number] [place] [address] 15566- 2204 Aug, [facility] [place] [id number] [place] [address] 90527- 1598 Aug, Acute on chronic respiratory failure with hypoxia J96.21 ; Acute kidney failure, unspecified N17.9 ; Chronic kidney disease, stage 4 ( severe) N18.4 ; Acute on chronic combined systolic and diastolic CHF ( congestive heart failure) I50.43 ; Paroxysmal atrial fibrillation I48.0 and Cardiomyopathy, unspecified type I42.9 [facility] [place] [address], [place] [address] 6238 Aug, [facility] [place] [address] [place] [address] 50172- 9969 Jul, [facility] [place] [address], [place] [address] 4223 Jul, [facility] [place] [id number] [place] [address] 14924- 7962 Jul, [facility] [place] [address], [place] [address] 0857 Jul, [facility] [place] [id number] [place] [address] 17961- 3310 06 Jul, 2017 Community acquired pneumonia of right lower lobe of lung J18.1 ; CKD (chronic kidney disease) stage 4, GFR 15-29 ml/min N18.4 and Shortness of breath R06.02 [facility] [address] [id number] Jul, [place] [id number] [place] [address] 42834- 1580 Jun, Anxiety F41.9 [place] [id number] [place] [address] 93084- 5979 Apr, Anxiety F41.9 [place] [id number] [place] [address] 22693- 5632 Apr, Cough R05 and Pneumonia of right lower lobe due to infectious organism J18.1 [place] [id number] [place] [address] 33103- 9160 Apr, [place] [id number] [place] [address] 31706- 6916 Apr, Chronic kidney disease, stage IV (severe) N18.4 and COPD exacerbation J44.1 [place] [id number] [place] [address] 21811- 1512 Feb, Chronic systolic heart failure I50.22 ; Essential hypertension I10 ; Anemia associated with chronic renal failure D63.1 and Chronic kidney disease, stage 4 (severe) N18.4 [place] [address] [place] [address] 89732- 9065 Feb, Anxiety F41.9 [place] [id number] [place] [address] 84449- 5531 Feb, [place] [address] [place] [address] 96907- 8890 Feb, [place] [id number] [place] [address] 56326- 8082 Jan, Other fatigue R53.83 ; Otalgia of both ears H92.03 and Urinary urgency R39.15 [facility] [place] [id number] [place] [address] 34208- 6073 Jan, Acute non-recurrent maxillary sinusitis J01.00 ; Chronic systolic heart failure I50.22 ; Stage 3 chronic kidney disease N18.3 and Mild depression F32.0 [facility] [place] [id number] [place] [address] 76339- 8748 Sep, [facility] [place] [id number] [place] [address] 81799- 6817 Sep, [facility] [place] [id number] [place] [address] 90989- 8936 Feb, [facility] [place] [id number] [place] [address] 13359- 3166 Feb, [facility] [place] [id number] [place] [address] 02072- 1471 Dec, [facility] [place] [id number] [place] [address] 06055- 6544 Dec, [facility] [place] [id number] [place] [address] 00928- 9147 Nov, [facility] [place] [id number] [place] [address] 07406- 1426 Nov, [facility] [place] [id number] [place] [address] 99873- 0180 Nov, [facility] [place] [id number] [place] [address] 09986- 6366 Nov, [facility] [place] [id number] [place] [address] 12373- 1940 October, [facility] [place] [address], [place] [address]- 9731 October, [facility] [place] [id number] [place] [address] 57405- 8892 Sep, [facility] [place] [facility] [address] [id number] [place] [address]- 0648 Sep, [facility] [place] [facility] [address] [id number] [place] [address]- 9206 Sep, [facility] [place] [facility] [address] [id number] [place] [address]- 9786 Sep, [facility] [place] [facility] [address] [id number] [place] [address]- 2503 Sep, [facility] [place] [facility] [address] [id number] [place] [address]- 2032 Aug, [facility] [place] [facility] [address] [id number] [place] [address]- 3902 Aug, [facility] [place] [facility] [address] [id number] [place] [address]- 8591 Aug, [facility] [place] [facility] [address] [id number] [place] [address]- 3356 Aug, [facility] [place] [facility] [address] [id number] [place] [address]- 4448 Aug, [facility] [place] [facility] [address] [id number] [place] [address]- 4382 Aug, [facility] [place] [facility] [address] [id number] [place] [address]- 7129 Aug, [facility] [place] [facility] [address] [id number] [place] [address]- 1131 Aug, [facility] [place] [facility] [address] [id number] [place] [address]- 7764 Jul, [facility] [place] [facility] [address] [id number] [place] [address]- 3616 Jul, [facility] [place] [facility] [address] [id number] [place] [address]- 2546 Jul, [facility] [place] [facility] [address] [id number] [place] [address]- 0764 05 Jul, 2013 [facility] [address] [id number] [place] [address]- 2345 Jul, [facility] [place] [facility] [address] [id number] [place] [address]- 7756 Jul, [facility] [place] [facility] [address] [id number] [place] [address]- 2617 Jun, [facility] [place] [facility] [address] [id number] [place] [address]- 2484 Jun, [facility] [place] [facility] [address] [id number] [place] [address]- 3708 Jun, [facility] [place] [facility] [address] [id number] [place] [address]- 1950 Jun, [facility] [place] [facility] [address] [id number] [place] [address]- 1109 Jun, [facility] [place] [facility] [address] [id number] [place] [address]- 1054 May, [facility] [place] [facility] [address] [id number] [place] [address]- 7064 May, [facility] [place] [facility] [address] [id number] [place] [address]- 5147 May, [facility] [place] [facility] [address] [id number] [place] [address]- 1858 May, [facility] [place] [facility] [address] [id number] [place] [address]- 8777 May, [facility] [place] [facility] [address] [id number] [place] [address]- 4649 Apr, [facility] [place] [facility] [address] [id number] [place] [address]- 0736 Apr, [facility] [place] [facility] [address] [id number] [place] [address]- 8387 Mar, [facility] [place] [facility] [address] [id number] [place] [address]- 0117 Mar, [facility] [place] [facility] [address] [id number] [place] [address]- 9996 Mar, [facility] [place] [facility] [address] [id number] [place] [address]- 3800 Mar, [facility] [place] [facility] [address] [id number] [place] [address]- 7153 Feb, [facility] [place] [facility] [address] [id number] [place] [address]- 2134 Jan, [facility] [place] [facility] [address] [id number] [place] [address]- 8428 Jan, [facility] [place] [facility] [address] [id number] [place] [address]- 5718 Aug, [facility] [place] [facility] [address] [id number] [place] [address]- 1843 Jul, [facility] [place] [facility] [address] [id number] [place] [address]- 2927 Jun, [facility] [place] [facility] [address] [id number] [place] [address]- 1952 May, [facility] [place] [facility] [address] [id number], [place] [address]- 5276 May, [facility] [place] [facility] [address] [id number], [place] [address]- 7815 May, [facility] [place] [facility] [address] [id number] [place] [address]- 7534 May, [facility] [place] [facility] [address] [id number] [place] [address]- 8612 Apr, [facility] [place] [facility] [address] [facility] [id number] [place] [address]- 9127 Apr, [facility] [place] [facility] [address] [id number] [place] [address] 2546 Mar, [facility] [address] [id number] [place] [address] 2546 Mar, [facility] [address] [facility] [id number] [place] [address] 2546 Mar, [facility] [address] [facility] [id number] [place] [address] 2546 Mar, [facility] [address] [id number] [place] [address] 2546 Mar, [facility] [address] [id number] [place] [address]- 3306 Mar, [facility] [address] [facility] [id number] [place] [address]- 2546 Dec, [facility] [address] [facility] [id number] [place] [address]- 2546 Dec, [facility] [address] [facility] [id number] [place] [address]- 2546 Nov, [facility] [address] [facility] [id number] [place] [address]- 2546 Nov, [facility] [address] [facility] [id number] [place] [address]- 2546 October, [facility] [address] [facility] [id number] [place] [address]- 2546 October, [facility] [address] [facility] [id number], [place] [address]- 2546 Sep, [facility] [address] [facility] [id number] [place] [address]- 2546 Aug, [facility] [address] [facility] [id number] [place] [address]- 2546 Aug, [facility] [address] [facility] [id number], [place] [address]- 2546 Aug, IMMUNIZATIONS No Known Immunizations SOCIAL HISTORY Never Assessed REASON FOR VISIT Lab (walk-in)--[facility] PLAN OF CARE VITAL SIGNS MEDICATIONS Unknown Medications RESULTS No Results PROCEDURES Procedure Date Ordered Result Body Site URINALYSIS, AUTO, W/O SCOPE October 17, 2017 LAB NOT BILLED BY [facility] October 17, 2017 VENIPUNCT, ROUTINE* October 17, 2017 INSTRUCTIONS MEDICATIONS ADMINISTERED No Known Medications MEDICAL (GENERAL) HISTORY Type Description Date Medical History hyperlipidemia Medical History htn Medical History kidney failure stage 4 - dx in 2012 Medical History hypothyroidisim Medical History neuropathy Medical History COPD - See's Dr Burnette in [facility] Medical History Chronic Heart Failure Surgical History 2 cesareans Surgical History defibrillator - 2012 Hospitalization History pneumonia for a week 2017 Hospitalization History Hospitalized at [facility]- CHF, Chest pain. Dismissed 07/11/17 07/10/2017 Hospitalization History [facility] pneumonia, hypoxia-[facility] 07/30/17 Hospitalization History [facility]- [facility] PNA, Respiratory Failure. Transfered to [facility] 10/25/2017 Hospitalization History CHF/COPD 11/2017
--- OUTSIDE RECORDS SUMMARY | 2018-03-06 23:18 | XMS REPORT ---
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 Name Role Phone LEE SILVA Unavailable PROBLEMS Type Condition ICD9-CM Code IXQ60-DV Code Onset Dates Condition Status SNOMED Code Problem Chronic systolic heart failure I50.22 Active 399886559 Problem Anxiety F41.9 Active 27190351 Problem Anemia associated with chronic renal failure D63.1 Active 248876588 Problem Essential hypertension I10 Active 39117946 Problem Mild depression F32.0 Active 585887941 Problem Chronic obstructive pulmonary disease, unspecified J44.9 Active 35320142 Problem Cardiomyopathy I42.9 Active 69293340 Problem Paroxysmal atrial fibrillation I48.0 Active 157664391 Problem Acute on chronic combined systolic and diastolic CHF (congestive heart failure) I50.43 Active 044445759034853 Problem CKD (chronic kidney disease) stage 4, GFR 15-29 ml/min N18.4 Active 897723841 Problem Chronic obstructive pulmonary disease with (acute) exacerbation J44.1 Active [id number] ALLERGIES No Information ENCOUNTERS Encounter Location Date Diagnosis [facility] [address], [place] [address] Dec, [facility] [address], [place] [address] Dec, Anxiety F41.9 [facility] [address], [place] [address] Dec, [facility] [address] [place] [address]20- 3587 Dec, [facility] [address], [place] [address] Dec, [facility] [address] [place], [place] [id number] Dec, Encounter for examination for admission to [facility] Z02.2 ; Chronic obstructive pulmonary disease, unspecified J44.9 ; Paroxysmal atrial fibrillation I48.0 ; CKD (chronic kidney disease) stage 4, GFR 15-29 ml/min N18.4 and Cardiomyopathy I42.9 [facility] [address], [place] [address] Dec, [facility] [id number] [place] [address] 87804- 0868 Nov, Acute on chronic combined systolic and diastolic CHF ( congestive heart failure) I50.43 [facility] [id number] [place] [address] 00375- 3577 Nov, [facility] [id number] [place] [address]6801- 5724 Nov, [facility] [id number] [place] [address]9224- 4645 Nov, Chronic systolic heart failure I50.22 ; Paroxysmal atrial fibrillation I48.0 ; Chronic obstructive pulmonary disease with (acute) exacerbation J44.1 ; Chronic kidney disease, stage 4 (severe) N18.4 ; Pain in right hip M25.551 and Pain in left hip M25.552 [facility] [address], [place] [address] Nov, Chronic kidney disease, stage 4 (severe) N18.4 [facility] [address], [place] [address] Nov, [facility] [address] [address] Nov, [facility] [id number] [place] [address] 96270- 9770 October, Chronic obstructive pulmonary disease with (acute) exacerbation J44.1 [facility] [address] [place] [address] 74553- 0135 October, [facility] [address], [place] [address] October, [facility] [id number] [place] [address] 65684- 5411 Sep, Chronic kidney disease, stage 4 (severe) N18.4 and Chronic kidney disease, stage IV (severe) N18.4 [facility] [id number] [place] [address] 96791- 4999 Sep, Chronic kidney disease, stage 4 (severe) N18.4 [facility] [address] [place] [address] 13135- 7430 Sep, Anxiety F41.9 ; Paroxysmal atrial fibrillation I48.0 ; Chronic kidney disease, stage 4 (severe) N18.4 ; Chronic systolic heart failure I50.22 and Anemia associated with chronic renal failure D63.1 [facility] [id number] [place] [address] 49284- 8796 Sep, [facility] [id number] [place] [address] 86917- 4407 Aug, [facility] [id number] [place] [address] 51890- 7526 Aug, [facility] [address] [place] [id number] Aug, Acute on chronic combined systolic and diastolic CHF (congestive heart failure) I50.43 ; Essential hypertension I10 ; CKD (chronic kidney disease) stage 4, GFR 15-29 ml/min N18.4 ; Paroxysmal atrial fibrillation I48.0 and Mild depression F32.0 [facility] [address] [place] [address] 14036- 7469 Aug, [facility] [id number] [place] [address] 99750- 4237 Aug, [facility] [address], [place] [address] Aug, Acute on chronic respiratory failure with hypoxia J96.21 ; Acute kidney failure, unspecified N17.9 ; Chronic kidney disease, stage 4 ( severe) N18.4 ; Acute on chronic combined systolic and diastolic CHF ( congestive heart failure) I50.43 ; Paroxysmal atrial fibrillation I48.0 and Cardiomyopathy, unspecified type I42.9 [facility] [address] [place] [address] 88201- 4841 Aug, [facility] [address] [address] 14 Jul, 2017 [facility] [id number] [place] [address] 54338- 5127 Jul, [facility] [id number] [place] [address] 91333- 9936 Jul, [facility] [id number] [place] [address] 28217- 3046 Jul, [facility] [id number] [place] [address] 50108- 4177 Jul, Community acquired pneumonia of right lower lobe of lung J18.1 ; CKD (chronic kidney disease) stage 4, GFR 15-29 ml/min N18.4 and Shortness of breath R06.02 [facility] [id number] [place] [address] [id number] Jul, 2017 [facility] [address] [place] [address] 02469- 8234 Jun, Anxiety F41.9 [facility] [id number] [place] [address] 68353- 0633 13 Apr, 2017 Anxiety F41.9 [facility] [id number] [place] [address] 19698- 1108 10 Apr, 2017 Cough R05 and Pneumonia of right lower lobe due to infectious organism J18.1 [facility] [id number] [place] [address] 89065- 1647 Apr, [facility] [id number] [place] [address] Apr, Chronic kidney disease, stage IV (severe) N18.4 and COPD exacerbation J44.1 [facility] [address] [address] Feb, Chronic systolic heart failure I50.22 ; Essential hypertension I10 ; Anemia associated with chronic renal failure D63.1 and Chronic kidney disease, stage 4 (severe) N18.4 [facility] [address] [address]- [address]33 Feb, Anxiety F41.9 [facility] [address] [address]- 6713 Feb, [facility] [address] [address]168- 9145 Feb, [facility] [address] 9[address]48- 5423 Jan, Other fatigue R53.83 ; Otalgia of both ears H92.03 and Urinary urgency R39.15 [facility] [id number] [place] [address] 71938- 9587 Jan, Acute non-recurrent maxillary sinusitis J01.00 ; Chronic systolic heart failure I50.22 ; Stage 3 chronic kidney disease N18.3 and Mild depression F32.0 [facility] [id number] [place] [address] 71535- 4049 Sep, [facility] [id number] [place] [address] 52646- 7099 Sep, [facility] [address] 62681- 5033 Feb, [facility] [address] 96729- 6089 Feb, [facility] [id number] [place] [address] 84120- 6765 Dec, [facility] [place] [facility] [address] [id number] [place] [address]- 9228 Dec, [facility] [place] [facility] [address] [id number] [place] [address]- 8455 Nov, [facility] [place] [facility] [address] [id number] [place] [address] Nov, [facility] [place] [facility] [address] [id number] [place] [address]- 7312 Nov, [facility] [place] [facility] [address] [id number] [place] [address]- 1459 Nov, [facility] [place] [facility] [address] [id number] [place] [address]- 5878 October, [facility] [place] [facility] [address] [id number] [place] [address]- 8125 October, [facility] [place] [facility] [address] [id number] [place] [address]- 3317 Sep, [facility] [place] [facility] [address] [id number] [place] [address]- 9101 Sep, [facility] [place] [facility] [address] [id number] [place] [address]- 2667 Sep, [facility] [place] [facility] [address] [id number] [place] [address]- 0444 Sep, [facility] [place] [facility] [address] [id number] [place] [address]- 2409 Sep, [facility] [place] [facility] [address] [id number] [place] [address]- 7927 Aug, [facility] [place] [facility] [address] [id number] [place] [address]- 8672 Aug, [facility] [place] [facility] [address] [id number] [place] [address]- 3113 Aug, [facility] [place] [facility] [address] [id number] [place] [address]- 9929 Aug, [facility] [place] [facility] [address] [id number] [place] [address]- 5595 Aug, [facility] [place] [facility] [address] [id number] [place] [address]- 8711 Aug, [facility] [place] [facility] [address] [facility] [id number] [place] [address]- 6195 Aug, [facility] [place] [facility] [address] [id number] [place] [address]- 6983 Aug, [facility] [place] [facility] [address] [id number] [place] [address]- 6505 Jul, [facility] [place] [facility] [address] [id number] [place] [address]- 3269 Jul, [facility] [place] [facility] [address] [id number] [place] [address]- 0473 Jul, [facility] [place] [facility] [address] [id number] [place] [address]- 9528 Jul, [facility] [place] [facility] [address] [id number] [place] [address]- 9336 Jul, [facility] [place] [facility] [address] [id number] [place] [address]- 5127 Jul, [facility] [place] [facility] [address] [id number] [place] [address]- 6635 Jun, [facility] [place] [facility] [address] [id number] [place] [address]- 7145 Jun, [facility] [place] [facility] [address] [id number] [place] [address]- 1362 Jun, [facility] [place] [facility] [address] [id number] [place] [address]- 6189 Jun, [facility] [place] [facility] [address] [facility] [id number] [place] [address]- 5939 Jun, [facility] [place] [facility] [address] [id number] [place] [address]- 6894 May, [facility] [place] [facility] [address] [id number] [place] [address]- 4563 May, [facility] [place] [facility] [address] [id number] [place] [address]- 2546 May, [facility] [place] [facility] [address] [id number] [place] [address]- 1641 May, [facility] [place] [facility] [address] [id number] [place] [address]- 7035 May, [facility] [place] [facility] [address] [id number] [place] [address]- 0422 Apr, [facility] [place] [facility] [address] [id number] [place] [address]- 5574 Apr, [facility] [place] [facility] [address] [id number] [place] [address]- 1169 Mar, [facility] [place] [facility] [address] [id number] [place] [address]- 8816 Mar, [facility] [place] [facility] [address] [id number] [place] [address]- 7381 Mar, [facility] [place] [facility] [address] [id number] [place] [address]- 7942 Mar, [facility] [place] [facility] [address] [id number] [place] [address]- 4930 Feb, [facility] [place] [facility] [address] [id number] [place] [address]- 9318 Jan, [facility] [place] [facility] [address] [id number] [place] [address]- 5286 Jan, [facility] [place] [facility] [address] [id number] [place] [address]- 2546 Aug, [facility] [place] [facility] [address] [id number] [place] [address]- 4031 Jul, [facility] [place] [facility] [address] [id number] [place] [address]- 6997 Jun, [facility] [place] [facility] [address] [id number] [place] [address]- 1286 May, [facility] [place] [facility] [address] [id number] [place] [address]- 7278 May, [facility] [place] [facility] [address] [id number] [place] [address]- 6256 May, [facility] [place] [facility] [address] [id number] [place] [address]- 5442 May, [facility] [place] [facility] [address] [id number] [place] [address]- 2436 Apr, [facility] [place] [facility] [address] [id number] [place] [address]- 0096 Apr, [facility] [place] [facility] [address] [id number] [place] [address]- 8566 Mar, [facility] [place] [facility] [address] [id number] [place] [address]- 8879 Mar, [facility] [place] [facility] [address] [facility] [id number] [place] [address]- 7889 Mar, [facility] [place] [facility] [address] [id number], [place] [address]- 1222 Mar, [facility] [place] [facility] [address] [id number], [place] [address]- 9545 Mar, [facility] [place] [facility] [address] [id number] [place] [address]- 7588 Mar, [facility] [place] [facility] [address] [facility] [id number], [place] [address]- 1632 Dec, [facility] [place] [facility] [address] [facility] [id number] [place] [address]- 8348 Dec, [facility] [place] [facility] [address] [facility] [id number], [place] [address]- 2546 Nov, [facility] [id number] [address] 2546 Nov, [facility] [id number] [address] 2546 October, [facility] [address], [place] [address]- 2546 October, [facility] [address], [place] [address]- 3768 Sep, [facility] [address], [place] [address]- 8385 Aug, [facility] [address], [place] [address]- 8745 Aug, [facility] [address], [place] [address]- 0709 Aug, IMMUNIZATIONS No Known Immunizations SOCIAL HISTORY Never Assessed REASON FOR VISIT Controlled Med Refill PLAN OF CARE VITAL SIGNS MEDICATIONS Unknown Medications RESULTS No Results PROCEDURES No Known procedures INSTRUCTIONS MEDICATIONS ADMINISTERED No Known Medications MEDICAL (GENERAL) HISTORY Type Description Date Medical History hyperlipidemia Medical History htn Medical History kidney failure stage 4 - dx in 2012 Medical History hypothyroidisim Medical History neuropathy Medical History COPD - See's Dr [facility] Medical History Chronic Heart Failure Surgical History 2 cesareans Surgical History defibrillator - 2012 Hospitalization History pneumonia for a week 2017 Hospitalization History Hospitalized at [facility]- CHF, Chest pain. Dismissed 07/11/17 07/10/2017 Hospitalization History [facility] pneumonia, hypoxia-[facility] 07/30/17 Hospitalization History [facility]- RLL PNA, Respiratory Failure. Transfered to [facility] 10/25/2017 Hospitalization History CHF/COPD 11/2017
--- OUTSIDE RECORDS SUMMARY | 2018-03-06 23:18 | XMS REPORT ---
Author Author TEAGAN VERNON [facility] Address [address] [place] [address] Care Team Providers Care Codifier Name Role Phone TEAGAN VERNON Unavailable PROBLEMS Type Condition ICD9-CM Code UVS11-CI Code Onset Dates Condition Status SNOMED Code Problem Chronic systolic heart failure I50.22 Active 078606571 Problem Anxiety F41.9 Active 76833737 Problem Anemia associated with chronic renal failure D63.1 Active 319794763 Problem Essential hypertension I10 Active 20090225 Problem Mild depression F32.0 Active 715907052 Problem Chronic obstructive pulmonary disease, unspecified J44.9 Active 08842378 Problem Cardiomyopathy I42.9 Active 31046948 Problem Paroxysmal atrial fibrillation I48.0 Active 345602073 Problem Acute on chronic combined systolic and diastolic CHF (congestive heart failure) I50.43 Active 541708720205680 Problem CKD (chronic kidney disease) stage 4, GFR 15-29 ml/min N18.4 Active 302538839 Problem Chronic obstructive pulmonary disease with (acute) exacerbation J44.1 Active 672450058 ALLERGIES No Information ENCOUNTERS Encounter Location Date Diagnosis [facility] [id number], [place] [address] Dec, [facility] [id number], [place] [address] Dec, Anxiety F41.9 [facility] [id number], [place] [address] Dec, [facility] [address], [place] [address] Dec, [facility] [id number], [place] [address] Dec, [facility] [address] [place] [id number] Dec, Encounter for examination for admission to longterm Z02.2 ; Chronic obstructive pulmonary disease, unspecified J44.9 ; Paroxysmal atrial fibrillation I48.0 ; CKD (chronic kidney disease) stage 4, GFR 15-29 ml/min N18.4 and Cardiomyopathy I42.9 [facility] [address], [place] [address] Dec, [facility] [id number] [place] [address]23- 3967 Nov, Acute on chronic combined systolic and diastolic CHF ( congestive heart failure) I50.43 [facility] [id number] [place] [address] 24128- 9116 Nov, [facility] [address], [place] [address] Nov, [facility] [id number] [place] [address] 29685- 6981 Nov, Chronic systolic heart failure I50.22 ; Paroxysmal atrial fibrillation I48.0 ; Chronic obstructive pulmonary disease with (acute) exacerbation J44.1 ; Chronic kidney disease, stage 4 (severe) N18.4 ; Pain in right hip M25.551 and Pain in left hip M25.552 [facility] [address], [place] [address] Nov, Chronic kidney disease, stage 4 (severe) N18.4 [facility] [address], [place] [address] Nov, [facility] [address], [place] [address] Nov, [facility] [id number] [place] [address] 75815- 3910 October, Chronic obstructive pulmonary disease with (acute) exacerbation J44.1 [facility] [address], [place] [address] October, [place] [address], [place] [address] October, [place] [id number] [place] [address]01- 1140 Sep, Chronic kidney disease, stage 4 (severe) N18.4 and Chronic kidney disease, stage IV (severe) N18.4 [place] [id number] [place] [address] 99334- 4139 Sep, Chronic kidney disease, stage 4 (severe) N18.4 [place] [id number] [place] [address] 49316- 1237 Sep, Anxiety F41.9 ; Paroxysmal atrial fibrillation I48.0 ; Chronic kidney disease, stage 4 (severe) N18.4 ; Chronic systolic heart failure I50.22 and Anemia associated with chronic renal failure D63.1 [place] [id number] [place] [address] 60312- 3115 Sep, [place] [id number] [place] [address] 05911- 1919 Aug, [place] [id number] [place] [address] 04065- 5464 Aug, [facility] [address] [place] [id number] Aug, Acute on chronic combined systolic and diastolic CHF (congestive heart failure) I50.43 ; Essential hypertension I10 ; CKD (chronic kidney disease) stage 4, GFR 15-29 ml/min N18.4 ; Paroxysmal atrial fibrillation I48.0 and Mild depression F32.0 [place] [address], [place] [address] Aug, [place] [id number] [place] [address] 08945- 0820 Aug, [place] [id number] [place] [address] 60628- 2071 14 Aug, 2017 Acute on chronic respiratory failure with hypoxia J96.21 ; Acute kidney failure, unspecified N17.9 ; Chronic kidney disease, stage 4 ( severe) N18.4 ; Acute on chronic combined systolic and diastolic CHF ( congestive heart failure) I50.43 ; Paroxysmal atrial fibrillation I48.0 and Cardiomyopathy, unspecified type I42.9 [facility] [address], [place] [address] Aug, [facility] [id number] [place] [address] 43410- 6358 14 Jul, 2017 [facility] [id number] [place] [address] 51721- 7122 Jul, [place] [address] [address] Jul, [facility] [id number] [place] [address] 97051- 8051 Jul, [facility] [id number] [place] [address] 41609- 7320 Jul, Community acquired pneumonia of right lower lobe of lung J18.1 ; CKD (chronic kidney disease) stage 4, GFR 15-29 ml/min N18.4 and Shortness of breath R06.02 [facility] [id number] [place] [id number] 05 Jul, 2017 [facility] [address] [place] [address] 33957- 6278 Jun, Anxiety F41.9 [facility] [id number] [place] [address] 56079- 1211 Apr, Anxiety F41.9 [facility] [id number] [place] [address] 28217- 8275 10 Apr, 2017 Cough R05 and Pneumonia of right lower lobe due to infectious organism J18.1 [facility] [address] [place] [address] 22770- 4052 07 Apr, 2017 [facility] [id number] [place] [address] 46528- 8412 Apr, Chronic kidney disease, stage IV (severe) N18.4 and COPD exacerbation J44.1 [place] [id number] [place] [address] 68045- 3566 Feb, Chronic systolic heart failure I50.22 ; Essential hypertension I10 ; Anemia associated with chronic renal failure D63.1 and Chronic kidney disease, stage 4 (severe) N18.4 [place] [id number] [place] [address] 37427- 7803 Feb, Anxiety F41.9 [place] [address] [address] Feb, [place] [address] [address] Feb, [place] [id number] [place] [address] 04238- 1688 Jan, Other fatigue R53.83 ; Otalgia of both ears H92.03 and Urinary urgency R39.15 [place] [id number] [place] [address] 56923- 6095 Jan, Acute non-recurrent maxillary sinusitis J01.00 ; Chronic systolic heart failure I50.22 ; Stage 3 chronic kidney disease N18.3 and Mild depression F32.0 [place] [id number] [place] [address] 80801- 3896 Sep, [place] [id number] [place] [address] 05550- 6251 Sep, [place] [id number] [place] [address] 35870- 3449 Feb, [place] [id number] [place] [address] 55856- 7976 Feb, [place] [id number] [place] [address] 94633- 0773 Dec, [facility] [place] [facility] [address] [id number] [place] [address]- [address]003 Dec, [facility] [place] [facility] [address] [id number] [place] [address]- 5476 Nov, [facility] [place] [facility] [address] [id number] [place] [address]- 2782 Nov, [facility] [place] [facility] [address] [id number] [place] [address]- 1894 Nov, [facility] [place] [facility] [address] [id number] [place] [address]- 0560 Nov, [facility] [place] [facility] [address] [id number] [place] [address]- 0039 October, [facility] [place] [facility] [address] [id number] [place] [address]- 5514 October, [facility] [place] [facility] [address] [id number] [place] [address]- 4187 Sep, [facility] [place] [facility] [address] [id number] [place] [address]- 0691 Sep, [facility] [place] [facility] [address] [id number] [place] [address]- 9666 Sep, [facility] [place] [facility] [address] [id number] [place] [address]- 1310 Sep, [facility] [place] [facility] [address] [id number] [place] [address]- 4982 Sep, [facility] [place] [facility] [address] [id number] [place] [address]- 1143 Aug, [facility] [place] [facility] [address] [id number] [place] [address]- 0661 Aug, [facility] [place] [facility] [address] [id number] [place] [address]- 0493 Aug, [facility] [place] [facility] [address] [id number] [place] [address]- 0003 Aug, [facility] [place] [facility] [address] [id number] [place] [address]- 3503 Aug, [facility] [place] [facility] [address] [id number] [place] [address]- 1049 Aug, [facility] [place] [facility] [address] [id number] [place] [address]- 8328 Aug, [facility] [place] [facility] [address] [id number] [place] [address]- 6482 Aug, [facility] [place] [facility] [address] [id number] [place] [address]- 3307 Jul, [facility] [place] [facility] [address] [id number] [place] [address]- 4510 Jul, [facility] [place] [facility] [address] [id number] [place] [address]- 5495 Jul, [facility] [place] [facility] [address] [id number] [place] [address]- 2762 Jul, [facility] [place] [facility] [address] [id number] [place] [address]- 0727 Jul, [facility] [place] [facility] [address] [id number] [place] [address]- 4095 Jul, [facility] [place] [facility] [address] [id number] [place] [address]- 8925 Jun, [facility] [place] [facility] [address] [id number] [place] [address]- 5510 Jun, [facility] [place] [facility] [address] [id number] [place] [address]- 7210 Jun, [facility] [place] [facility] [address] [id number] [place] [address]- 0196 Jun, [facility] [place] [facility] [address] [id number] [place] [address]- 2416 Jun, [facility] [place] [facility] [address] [id number] [place] [address]- 4669 May, [facility] [address] [id number] [place] [address]- 2644 May, [facility] [address] [id number] [place] [address] 2546 May, [facility] [address] [id number] [place] [address]- 6166 May, [facility] [address] [id number] [place] [address]- 2545 May, [facility] [address] [id number] [place] [address]- 4948 Apr, [facility] [address] [id number] [place] [address]- 8834 Apr, [facility] [address] [facility] [id number] [place] [address]- 8688 Mar, [facility] [address] [id number] [place] [address]- 3505 Mar, [facility] [address] [facility] [id number] [place] [address]- 6987 Mar, [facility] [address] [facility] [id number] [place] [address]- 9424 Mar, [facility] [address] [id number] [place] [address]- 2546 Feb, [facility] [address] [id number] [place] [address]- 2546 Jan, [facility] [place] [facility] [address] [id number] [place] [address]- 2546 Jan, [facility] [place] [facility] [address] [facility] [id number] [place] [address]- 2546 Aug, [facility] [address] [facility] [id number] [place] [address]- 4916 Jul, [facility] [place] [facility] [address] [id number] [place] [address]- 0312 Jun, [facility] [place] [facility] [address] [id number] [place] [address]- 8516 May, [facility] [place] [facility] [address] [id number] [place] [address]- 9206 May, [facility] [place] [facility] [address] [id number] [place] [address]- 6586 May, [facility] [place] [facility] [address] [id number] [place] [address]- 1278 May, [facility] [place] [facility] [address] [id number] [place] [address]- 5266 Apr, [facility] [place] [facility] [address] [id number] [place] [address]- 8845 Apr, [facility] [place] [facility] [address] [id number] [place] [address]- 3877 Mar, [facility] [place] [facility] [address] [id number] [place] [address]- 0884 Mar, [facility] [place] [facility] [address] [facility] [id number], [place] [address]- 2669 Mar, [facility] [place] [facility] [address] [id number], [place] [address]- 5803 Mar, [facility] [place] [facility] [address] [id number], [place] [address]- 7478 Mar, [facility] [place] [facility] [address] [id number] [place] [address]- 4524 Mar, [facility] [place] [facility] [address] [facility] [id number], [place] [address]- 2916 Dec, [facility] [place] [facility] [address] [facility] [id number], [place] [address]- 5936 Dec, [facility] [place] [facility] [address] [id number], [place] [address]- 2546 Nov, [facility] [id number], [place] [address] 2546 Nov, [facility] [id number], [place] [address] 2546 October, [facility] [address], [place] [address] 2546 October, [facility] [id number] [place] [address] 07902- 5258 Sep, [facility] [address] [place] [address] 81093- 8291 Aug, [facility] [address], [place] [address]- 7133 Aug, [facility] [address], [place] [address]- 9224 Aug, IMMUNIZATIONS No Known Immunizations SOCIAL HISTORY [...] COPD - See's Dr Burnette in [facility] Medical History Chronic Heart Failure Surgical History 2 cesareans Surgical History defibrillator - 2012 Hospitalization History pneumonia for a week 2017 Hospitalization History Hospitalized at [facility]- CHF, Chest pain. Dismissed 07/11/17 07/10/2017 Hospitalization History [facility] pneumonia, hypoxia-[facility] 07/30/17 Hospitalization History [facility]- RLL PNA, Respiratory Failure. Transfered to [facility] 10/25/2017 Hospitalization History CHF/COPD 11/2017
--- OUTSIDE RECORDS SUMMARY | 2018-03-06 23:18 | XMS REPORT ---
Author Author TEAGAN VERNON [facility] Address [address] [place] [address] Care Team Providers Care Cargo Mate Name Role Phone TEAGAN VERNON Unavailable PROBLEMS Type Condition ICD9-CM Code VVV11-MQ Code Onset Dates Condition Status SNOMED Code Problem Chronic systolic heart failure I50.22 Active 436741852 Problem Anxiety F41.9 Active 64544886 Problem Anemia associated with chronic renal failure D63.1 Active 176725988 Problem Essential hypertension I10 Active 51977259 Problem Mild depression F32.0 Active 370919893 Problem Chronic obstructive pulmonary disease, unspecified J44.9 Active 56260341 Problem Cardiomyopathy I42.9 Active 78254969 Problem Paroxysmal atrial fibrillation I48.0 Active 568762458 Problem Acute on chronic combined systolic and diastolic CHF (congestive heart failure) I50.43 Active [id number] Problem CKD (chronic kidney disease) stage 4, GFR 15-29 ml/min N18.4 Active 211694034 Problem Chronic obstructive pulmonary disease with (acute) exacerbation J44.1 Active [id number] ALLERGIES No Information ENCOUNTERS Encounter Location Date Diagnosis [facility] [id number], [place] [address] Dec, [facility] [id number] [address] Dec, Anxiety F41.9 [facility] [id number], [place] [address] Dec, [facility] [address], [place] [address] Dec, [facility] [id number], [place] [address] Dec, [facility] [address] [place] [id number] Dec, Encounter for examination for admission to alf Z02.2 ; Chronic obstructive pulmonary disease, unspecified J44.9 ; Paroxysmal atrial fibrillation I48.0 ; CKD (chronic kidney disease) stage 4, GFR 15-29 ml/min N18.4 and Cardiomyopathy I42.9 [facility] [address], [place] [address] Dec, [facility] [id number] [place] [address] Nov, Acute on chronic combined systolic and diastolic CHF ( congestive heart failure) I50.43 [facility] [id number] [place] [address]- 4310 Nov, [facility] [address], [place] [address] Nov, [facility] [id number] [place] [address] 16[address]- 4180 Nov, Chronic systolic heart failure I50.22 ; Paroxysmal atrial fibrillation I48.0 ; Chronic obstructive pulmonary disease with (acute) exacerbation J44.1 ; Chronic kidney disease, stage 4 (severe) N18.4 ; Pain in right hip M25.551 and Pain in left hip M25.552 [facility] [address], [place] [address] Nov, Chronic kidney disease, stage 4 (severe) N18.4 [facility] [address], [place] [address] Nov, [facility] [address], [place] [address] Nov, [facility] [id number] [place] [address]- 6[address] October, Chronic obstructive pulmonary disease with (acute) exacerbation J44.1 [facility] [address], [place] [address] October, [place] [address], [place] [address] October, [facility] [id number] [place] [address] 74184- 9451 Sep, Chronic kidney disease, stage 4 (severe) N18.4 and Chronic kidney disease, stage IV (severe) N18.4 [facility] [id number] [place] [address] 76227- 1214 Sep, Chronic kidney disease, stage 4 (severe) N18.4 [place] [facility] [id number] [place] [address]44- 9594 Sep, Anxiety F41.9 ; Paroxysmal atrial fibrillation I48.0 ; Chronic kidney disease, stage 4 (severe) N18.4 ; Chronic systolic heart failure I50.22 and Anemia associated with chronic renal failure D63.1 [id number] [place] [address] 33042- 6277 Sep, [facility] [id number] [place] [address] 12462- 7655 Aug, [address] [id number] [place] [address] 639[address]- 9481 Aug, [facility] [address] [place] [id number] Aug, Acute on chronic combined systolic and diastolic CHF (congestive heart failure) I50.43 ; Essential hypertension I10 ; CKD (chronic kidney disease) stage 4, GFR 15-29 ml/min N18.4 ; Paroxysmal atrial fibrillation I48.0 and Mild depression F32.0 [place] [address], [place] [address] Aug, [facility] [id number] [place] [address] 95107- 8756 Aug, [place] [id number] [place] [address] 56192- 4839 14 Aug, 2017 Acute on chronic respiratory failure with hypoxia J96.21 ; Acute kidney failure, unspecified N17.9 ; Chronic kidney disease, stage 4 ( severe) N18.4 ; Acute on chronic combined systolic and diastolic CHF ( congestive heart failure) I50.43 ; Paroxysmal atrial fibrillation I48.0 and Cardiomyopathy, unspecified type I42.9 [facility] [address], [place] [address] Aug, [facility] [id number] [place] [address] 99128- 3750 14 Jul, 2017 [facility] [id number] [place] [address] 64278- 9117 Jul, [place] [address] [address] Jul, [facility] [id number] [place] [address] 09770- 7419 Jul, [facility] [id number] [place] [address] 46273- 9551 Jul, Community acquired pneumonia of right lower lobe of lung J18.1 ; CKD (chronic kidney disease) stage 4, GFR 15-29 ml/min N18.4 and Shortness of breath R06.02 [facility] [id number] [place] [id number] 05 Jul, 2017 [facility] [id number] [place] [address] 50041- 4235 Jun, Anxiety F41.9 [facility] [id number] [place] [address] 82479- 5616 Apr, Anxiety F41.9 [facility] [id number] [place] [address] 16899- 8722 10 Apr, 2017 Cough R05 and Pneumonia of right lower lobe due to infectious organism J18.1 [facility] [id number] [place] [address] 21811- 8176 07 Apr, 2017 [facility] [id number] [place] [address] 55845- 5962 Apr, Chronic kidney disease, stage IV (severe) N18.4 and COPD exacerbation J44.1 [place] [facility] [id number] [place] [address] 32981- 5915 Feb, Chronic systolic heart failure I50.22 ; Essential hypertension I10 ; Anemia associated with chronic renal failure D63.1 and Chronic kidney disease, stage 4 (severe) N18.4 [place] [facility] [id number] [place] [address] 02544- 3529 Feb, Anxiety F41.9 [place] [address] [address] 8252 Feb, [place] [address] [address]- 3[address] Feb, [address] [id number] [place] [address] 01344- 7204 Jan, Other fatigue R53.83 ; Otalgia of both ears H92.03 and Urinary urgency R39.15 [address] [id number] [place] [address] 13421- 7067 Jan, Acute non-recurrent maxillary sinusitis J01.00 ; Chronic systolic heart failure I50.22 ; Stage 3 chronic kidney disease N18.3 and Mild depression F32.0 [facility] [id number] [place] [address] 37803- 7664 Sep, [place] [id number] [place] [address] 89962- 7364 Sep, [facility] [id number] [place] [address] 42838- 0311 Feb, [place] [facility] [id number] [place] [address] 53637- 4736 Feb, [facility] [id number] [place] [address] 14469- 8511 Dec, [facility] [place] [facility] [address] [id number] [place] [address]- 2292 Dec, [facility] [place] [facility] [address] [id number] [place] [address]- 0035 Nov, [facility] [place] [facility] [address] [id number] [place] [address]- 5151 Nov, [facility] [place] [facility] [address] [id number] [place] [address]- 4694 Nov, [facility] [place] [facility] [address] [id number] [place] [address]- 3974 Nov, [facility] [place] [facility] [address] [id number] [place] [address]- 1569 October, [facility] [place] [facility] [address] [id number] [place] [address]- 5660 October, [facility] [place] [facility] [address] [id number] [place] [address]- 6823 Sep, [facility] [place] [facility] [address] [id number] [place] [address]- 3211 Sep, [facility] [place] [facility] [address] [id number] [place] [address]- 4[address] Sep, [facility] [place] [facility] [address] [id number] [place] [address]- 6913 Sep, [facility] [place] [facility] [address] [id number] [place] [address]- 4363 Sep, [facility] [place] [facility] [address] [id number] [place] [address]- 4046 Aug, [facility] [place] [facility] [address] [id number] [place] [address]- 7711 Aug, [facility] [place] [facility] [address] [id number] [place] [address]- 3779 Aug, [facility] [place] [facility] [address] [id number] [place] [address]- 1371 Aug, [facility] [place] [facility] [address] [id number] [place] [address]- 3370 Aug, [facility] [place] [facility] [address] [id number] [place] [address]- 8726 Aug, [facility] [place] [facility] [address] [id number] [place] [address]- 1294 Aug, [facility] [place] [facility] [address] [id number] [place] [address]- 2348 Aug, [facility] [place] [facility] [address] [id number] [place] [address]- 9179 Jul, [facility] [place] [facility] [address] [id number] [place] [address]- 8919 Jul, [facility] [place] [facility] [address] [id number] [place] [address]- 2392 Jul, [facility] [place] [facility] [address] [id number] [place] [address]- 7972 Jul, [facility] [place] [facility] [address] [id number] [place] [address]- 9616 Jul, [facility] [place] [facility] [address] [id number] [place] [address]- 0529 Jul, [facility] [place] [facility] [address] [id number] [place] [address]- 7066 Jun, [facility] [place] [facility] [address] [id number] [place] [address]- 2957 Jun, [facility] [place] [facility] [address] [id number] [place] [address]- 3615 Jun, [facility] [place] [facility] [address] [id number] [place] [address]- 3219 Jun, [facility] [place] [facility] [address] [id number] [place] [address]- 5742 Jun, [facility] [place] [facility] [address] [id number] [place] [address]- 2695 May, [facility] [address] [id number] [place] [address]- 1525 May, [facility] [address] [id number] [place] [address] 2546 May, [facility] [address] [id number] [place] [address]- 0408 May, [facility] [address] [id number] [place] [address]- 2548 May, [facility] [address] [id number] [place] [address]- 9389 Apr, [facility] [address] [id number] [place] [address]- 0156 Apr, [facility] [address] [facility] [id number] [place] [address]- 9332 Mar, [facility] [address] [id number] [place] [address]- 2932 Mar, [facility] [address] [facility] [id number] [place] [address]- 3683 Mar, [facility] [address] [facility] [id number] [place] [address]- 1886 Mar, [facility] [address] [id number] [place] [address]- 2546 Feb, [facility] [address] [id number] [place] [address]- 2546 Jan, [facility] [place] [facility] [address] [id number] [place] [address]- 2546 Jan, [facility] [place] [facility] [address] [facility] [id number] [place] [address]- 2546 Aug, [facility] [address] [facility] [id number] [place] [address]- 0326 Jul, [facility] [place] [facility] [address] [id number] [place] [address]- 7097 Jun, [facility] [place] [facility] [address] [id number] [place] [address]- 6626 May, [facility] [place] [facility] [address] [id number] [place] [address]- 2536 May, [facility] [place] [facility] [address] [id number] [place] [address]- 3346 May, [facility] [place] [facility] [address] [id number] [place] [address]- 8326 May, [facility] [place] [facility] [address] [id number] [place] [address]- 9276 Apr, [facility] [place] [facility] [address] [id number] [place] [address]- 8009 Apr, [facility] [place] [facility] [address] [id number] [place] [address]- 4307 Mar, [facility] [place] [facility] [address] [id number] [place] [address]- 8772 Mar, [facility] [place] [facility] [address] [facility] [id number], [place] [address]- 9063 Mar, [facility] [place] [facility] [address] [id number], [place] [address]- 0409 Mar, [facility] [place] [facility] [address] [id number], [place] [address]- 8154 Mar, [facility] [place] [facility] [address] [id number] [place] [address]- 3695 Mar, [facility] [place] [facility] [address] [facility] [id number], [place] [address]- 6346 Dec, [facility] [place] [facility] [address] [facility] [id number], [place] [address]- 9376 Dec, [facility] [place] [facility] [address] [id number], [place] [address]- 2546 Nov, [facility] [id number], [place] [address] 2546 Nov, [facility] [id number], [place] [address] 2546 October, [facility] [address], [place] [address]- 2546 October, [facility] [id number] [place] [address] 25595 2546 Sep, [facility] [id number] [place] [address] 92648- 2816 Aug, [facility] [address], [place] [address] 2546 Aug, [facility] [address], [place] [address]- 6696 Aug, IMMUNIZATIONS No Known Immunizations SOCIAL HISTORY Never Assessed REASON FOR VISIT request to go home PLAN OF CARE VITAL SIGNS MEDICATIONS Unknown [...] a week 2017 Hospitalization History Hospitalized at [facility]- CHF, Chest pain. Dismissed 07/11/17 07/10/2017 Hospitalization History [facility] pneumonia, hypoxia-[facility] 07/30/17 Hospitalization History [facility]- [facility] PNA, Respiratory Failure. Transfered to [facility] 10/25/2017 Hospitalization History CHF/COPD 11/2017
--- OUTSIDE RECORDS SUMMARY | 2018-03-06 23:19 | XMS REPORT ---
Author Author TEAGAN VERNON [facility] Address [address] [place] [address] Care Team Providers Care Financial Sales Assistant Name Role Phone TEAGAN VERNON Unavailable PROBLEMS Type Condition ICD9-CM Code [id number] Code Onset Dates Condition Status SNOMED Code Problem Chronic systolic heart failure I50.22 Active 310583376 Problem Anxiety F41.9 Active 91607796 Problem Anemia associated with chronic renal failure D63.1 Active 110048257 Problem Essential hypertension I10 Active 13672709 Problem Mild depression F32.0 Active 729494951 Problem Chronic obstructive pulmonary disease, unspecified J44.9 Active 58475952 Problem Cardiomyopathy I42.9 Active 91941646 Problem Paroxysmal atrial fibrillation I48.0 Active 360506369 Problem Acute on chronic combined systolic and diastolic CHF (congestive heart failure) I50.43 Active 864938986933642 Problem CKD (chronic kidney disease) stage 4, GFR 15-29 ml/min N18.4 Active 328236286 Problem Chronic obstructive pulmonary disease with (acute) exacerbation J44.1 Active 527799762 ALLERGIES Substance Reaction Event Type Date Status Demerol Unknown Drug Allergy Aug, Active Bee Venom Unknown Non Drug Allergy Aug, Active ENCOUNTERS Encounter Location Date Diagnosis [facility] [address] [facility] [id number] [address] Dec, [facility] [address] [facility] [id number] [address] Dec, [facility] [address] [id number] [address] Dec, [facility] [address] [place] [id number] Dec, Encounter for examination for admission to skilled nursing Z02.2 ; Chronic obstructive pulmonary disease, unspecified J44.9 ; Paroxysmal atrial fibrillation I48.0 ; CKD (chronic kidney disease) stage 4, GFR 15-29 ml/min N18.4 and Cardiomyopathy I42.9 [facility] [address] [id number] [address] Dec, [facility] [id number] [place] [address]606- 7191 Nov, Acute on chronic combined systolic and diastolic CHF ( congestive heart failure) I50.43 [facility] [id number] [place] [address] 61458- 1870 Nov, [facility] [id number] [place] [address] 93829- 2424 Nov, [facility] [id number] [place] [address] 49321- 3902 Nov, Chronic systolic heart failure I50.22 ; Paroxysmal atrial fibrillation I48.0 ; Chronic obstructive pulmonary disease with (acute) exacerbation J44.1 ; Chronic kidney disease, stage 4 (severe) N18.4 ; Pain in right hip M25.551 and Pain in left hip M25.552 [facility] [id number] [place] [address] 95687- 6538 Nov, Chronic kidney disease, stage 4 (severe) N18.4 [facility] [id number] [address] Nov, [facility] [id number] [address] Nov, [facility] [id number] [place] [address] 73996- 0821 October, Chronic obstructive pulmonary disease with (acute) exacerbation J44.1 [facility] [id number] [place] [address] 44320- 8616 October, [facility] [address] [address] October, [facility] [id number] [place] [address] 98039- 5200 Sep, Chronic kidney disease, stage 4 (severe) N18.4 and Chronic kidney disease, stage IV (severe) N18.4 [facility] [id number] [place] [address] 91913- 5195 Sep, Chronic kidney disease, stage 4 (severe) N18.4 [facility] [id number] [place] [address] 23833- 5370 Sep, Anxiety F41.9 ; Paroxysmal atrial fibrillation I48.0 ; Chronic kidney disease, stage 4 (severe) N18.4 ; Chronic systolic heart failure I50.22 and Anemia associated with chronic renal failure D63.1 [facility] [id number] [place] [address] 08995- 7510 Sep, [facility] [id number] [place] [address] 19315- 0556 Aug, [facility] [id number] [place] [address] 85662- 1085 Aug, [facility] [address] [place] [id number] Aug, Acute on chronic combined systolic and diastolic CHF (congestive heart failure) I50.43 ; Essential hypertension I10 ; CKD (chronic kidney disease) stage 4, GFR 15-29 ml/min N18.4 ; Paroxysmal atrial fibrillation I48.0 and Mild depression F32.0 [facility] [id number] [place] [address] 62745- 7715 Aug, [facility] [id number] [place] [address] 75430- 3978 Aug, [facility] [id number] [place] [address] 23946- 2667 Aug, Acute on chronic respiratory failure with hypoxia J96.21 ; Acute kidney failure, unspecified N17.9 ; Chronic kidney disease, stage 4 ( severe) N18.4 ; Acute on chronic combined systolic and diastolic CHF ( congestive heart failure) I50.43 ; Paroxysmal atrial fibrillation I48.0 and Cardiomyopathy, unspecified type I42.9 [facility] [id number] [address] Aug, [facility] [id number] [place] [address] 51723- 3475 14 Jul, 2017 [facility] [id number] [place] [address] 22646- 7726 Jul, [facility] [id number] [place] [address] 72022- 9300 Jul, [facility] [id number] [place] [address] 35624- 1403 Jul, [facility] [id number] [place] [address] 25928- 0751 Jul, Community acquired pneumonia of right lower lobe of lung J18.1 ; CKD (chronic kidney disease) stage 4, GFR 15-29 ml/min N18.4 and Shortness of breath R06.02 [facility] [address] [id number] [id number] Jul, [facility] [id number] [place] [address] 78494- 1977 Jun, Anxiety F41.9 [facility] [id number] [place] [address] 15445- 4498 Apr, Anxiety F41.9 [facility] [id number] [place] [address] 45739- 5043 10 Apr, 2017 Cough R05 and Pneumonia of right lower lobe due to infectious organism J18.1 [facility] [id number] [place] [address] 05938- 1836 07 Apr, 2017 [facility] [id number] [place] [address] 23849- 9536 06 Apr, 2017 Chronic kidney disease, stage IV (severe) N18.4 and COPD exacerbation J44.1 [facility] [id number] [place] [address] 54733- 9083 Feb, Chronic systolic heart failure I50.22 ; Essential hypertension I10 ; Anemia associated with chronic renal failure D63.1 and Chronic kidney disease, stage 4 (severe) N18.4 [facility] [id number] [place] [address] 37798- 7065 Feb, Anxiety F41.9 [facility] [address] [address] Feb, [facility] [id number] [place] [address] 96418- 2105 Feb, [facility] [address] [address] Jan, Other fatigue R53.83 ; Otalgia of both ears H92.03 and Urinary urgency R39.15 [facility] [id number] [place] [address] 93242- 5690 Jan, Acute non-recurrent maxillary sinusitis J01.00 ; Chronic systolic heart failure I50.22 ; Stage 3 chronic kidney disease N18.3 and Mild depression F32.0 [facility] [id number] [place] [address] 71390- 0426 Sep, [facility] [id number] [place] [address] 34057- 6448 Sep, [facility] [id number] [place] [address] 00464- 3424 Feb, [facility] [id number] [place] [address] 34243- 9124 Feb, [facility] [id number] [place] [address] 21286- 3934 Dec, [facility] [id number] [place] [address] 72924- 5826 Dec, [facility] [id number] [place] [address] 28830- 5456 Nov, [facility] [place] [facility] [address] [id number] [place] [address]- 3599 Nov, [facility] [place] [facility] [address] [id number] [place] [address] Nov, [facility] [place] [facility] [address] [id number] [place] [address]- 4952 Nov, [facility] [place] [facility] [address] [id number] [place] [address]- 8216 October, [facility] [place] [facility] [address] [id number] [place] [address]- 2520 October, [facility] [place] [facility] [address] [id number] [place] [address]- 8325 Sep, [facility] [place] [facility] [address] [id number] [place] [address]- 1296 Sep, [facility] [place] [facility] [address] [id number] [place] [address]- 8568 Sep, [facility] [place] [facility] [address] [id number] [place] [address]- 2490 Sep, [facility] [place] [facility] [address] [id number] [place] [address]- 2723 Sep, [facility] [place] [facility] [address] [id number] [place] [address]- 6403 Aug, [facility] [place] [facility] [address] [id number] [place] [address]- 3756 Aug, [facility] [place] [facility] [address] [id number] [place] [address]- 4063 Aug, [facility] [place] [facility] [address] [id number] [place] [address]- 1127 Aug, [facility] [place] [facility] [address] [id number] [place] [address]- 4967 Aug, [facility] [place] [facility] [address] [id number] [place] [address]- 4507 Aug, [facility] [place] [facility] [address] [id number] [place] [address]- 1278 Aug, [facility] [place] [facility] [address] [id number] [place] [address]- 6566 Aug, [facility] [place] [facility] [address] [id number] [place] [address]- 1197 Jul, [facility] [place] [facility] [address] [id number] [place] [address]- 3437 Jul, [facility] [place] [facility] [address] [id number] [place] [address]- 8998 Jul, [facility] [place] [facility] [address] [id number] [place] [address]- 1553 Jul, [facility] [place] [facility] [address] [id number] [place] [address]- 7861 Jul, [facility] [place] [facility] [address] [id number] [place] [address]- 4124 Jul, [facility] [place] [facility] [address] [id number] [place] [address]- 2920 Jun, [facility] [place] [facility] [address] [id number] [place] [address]- 5851 Jun, [facility] [place] [facility] [address] [id number] [place] [address]- 0886 Jun, [facility] [place] [facility] [address] [id number] [place] [address]- 2534 Jun, [facility] [place] [facility] [address] [id number] [place] [address]- 9635 Jun, [facility] [place] [facility] [address] [id number] [place] [address]- 4390 May, [facility] [place] [facility] [address] [id number] [place] [address]- 2546 May, [facility] [place] [facility] [address] [id number] [place] [address]- 4787 May, [facility] [place] [facility] [address] [id number] [place] [address]- 2227 May, [facility] [place] [facility] [address] [id number] [place] [address] 2549 May, [facility] [place] [facility] [address] [id number] [place] [address]- 2026 Apr, [facility] [place] [facility] [address] [id number] [place] [address]- 3069 Apr, [facility] [place] [facility] [address] [id number] [place] [address]- 5775 Mar, [facility] [place] [facility] [address] [id number] [place] [address]- 7705 Mar, [facility] [place] [facility] [address] [id number] [place] [address]- 2342 Mar, [facility] [place] [facility] [address] [id number] [place] [address]- 7852 Mar, [facility] [place] [facility] [address] [id number] [place] [address]- 4473 Feb, [facility] [place] [facility] [address] [id number] [address]- 3646 Jan, [facility] [place] [facility] [address] [id number] [place] [address] 2540 Jan, [facility] [place] [facility] [address] [id number] [place] [address] 2541 Aug, [facility] [place] [facility] [address] [id number] [place] [address] 2540 Jul, [facility] [place] [facility] [address] [id number] [place] [address] 2544 Jun, [facility] [place] [facility] [address] [id number] [place] [address]- 9072 May, [facility] [place] [facility] [address] [id number] [place] [address]- 0218 May, [facility] [place] [facility] [address] [id number] [place] [address]- 2336 May, [facility] [place] [facility] [address] [id number] [place] [address]- 9610 May, [facility] [place] [facility] [address] [id number] [place] [address]- 0549 Apr, [facility] [place] [facility] [address] [id number] [place] [address]- 0808 Apr, [facility] [place] [facility] [address] [id number] [place] [address]- 6286 Mar, [facility] [place] [facility] [address] [id number] [place] [address]- 1864 Mar, [facility] [place] [facility] [address] [id number] [place] [address]- 8670 Mar, [facility] [place] [facility] [address] [id number] [place] [address]- 2767 Mar, [facility] [place] [facility] [address] [facility] [id number] [place] [address]- 1339 Mar, [facility] [place] [facility] [address] [id number] [place] [address]- 0272 Mar, [facility] [place] [facility] [address] [id number] [place] [address]- 6321 Dec, [facility] [place] [facility] [address] [id number] [place] [address]- 3900 Dec, [facility] [place] [facility] [address] [facility] [id number] [place] [address] 2546 Nov, [facility] [place] [facility] [address] [id number] [place] [address]- 1476 Nov, [facility] [address] [facility] [id number], [place] [address]- 7956 October, [facility] [address] [address]- 2546 October, [facility] [address] [facility] [id number], [place] [address]- 3216 Sep, [facility] [address] [address]- 5116 Aug, [facility] [address] [facility] [id number], [place] [address]- 1633 Aug, [facility] [address] [facility] [id number], [place] [address]- 7496 Aug, IMMUNIZATIONS No Known Immunizations SOCIAL HISTORY Never Assessed REASON FOR VISIT [facility] follow up- Ok''d by Dr. Vernon, Needs scheduled for Medicare AWV , Complaining of congestion, and headaches--Evaristo, She would like to be back on [facility] PLAN OF CARE Activity Details Follow Up Patient will be seen in OR Reason: VITAL SIGNS Height 60 in 2017-09-10 Weight 170.7 lbs 2017-09-10 Temperature 97.1 degrees Fahrenheit 2017-09-10 Heart Rate 82 bpm 2017-09-10 Respiratory Rate 20 2017-09-10 Oximetry 100 % 2017-09-10 BMI 33.33 kg/m2 2017-09-10 Blood pressure systolic 128 mmHg 2017-09-10 Blood pressure diastolic 78 mmHg 2017-09-10 MEDICATIONS Medication Instructions Dosage Frequency Start Date End Date Duration Status Isosorbide Mononitrate ER 30 MG Orally Once a day 2 tablets 24h Active Levothyroxine Sodium 100 MCG Orally Once a day 1 tablet on an empty stomach in the morning 24h Not-Taking HydrOXYzine HCl 10 MG Orally Three times a day 1 tablet 8h 30 days Not-Taking Gabapentin 300 MG Orally Once a day 1 capsule 24h Not-Taking Melatonin 3 MG Orally Once a day 1 tablet an hour before bedtime for sleep 24h Feb, 30 day(s) Not-Taking Tylenol Extra Strength 500 MG Orally every 6 hrs 2 tablets as needed 6h Active Multivitamin Women - Active Incruse Ellipta 62.5 MCG/INH Inhalation Once a day 1 puff 24h Not- Taking PrednisoLONE 5 MG Orally Once a day 1 tablet with food or milk in the morning 24h Active Amiodarone HCl 200 MG Orally Once a day 1 tablet 24h Active HydrALAZINE HCl 25 MG Orally 2 times a day 1 tablet with food 12h Active Furosemide 40 mg Orally Once a day 1 tablet 24h 17 Feb, 2014 Active Loperamide A-D 2 MG Orally Four times a day 1 tablet as needed 6h Not-Taking Ferrous Sulfate 325 (65 Fe) MG Orally twice a day 1 tablet 12h Not -Taking Atorvastatin Calcium 20 MG Orally Once a day 1 tablet 24h Not- Taking Sertraline HCl 150 MG Orally Once a day 1 tablet 24h Active ProAir HFA 108 (90 Base) MCG/ACT Inhalation every 6 hrs 2 puffs as needed 6h Active Ventolin HFA 108 (90 Base) MCG/ACT Inhalation every 4 hrs 2 puffs as needed 4h Not-Taking 28-0.8 MG Not-Taking Loratadine 10 MG Orally Once a day 1 tablet 24h Not-Taking Breo Ellipta 200-25 MCG/INH Inhalation Once a day 1 puff 24h Not- Taking Albuterol Sulfate (2.5 MG/3ML) 0.083% Inhalation every 6 hrs 3 ml every 4-6 hours as needed 6h Apr, 12 months Not-Taking Plus Iron 29-1 MG Orally Once a day 1 tablet 24h Not- Taking Trazodone HCl 150 MG 1.5 tablets at night as needed for sleep Orally 30 days 30 Not-Taking Montelukast Sodium 10 MG Orally Once a day 1 tablet in the evening 24h Not-Taking Omeprazole 40 MG Orally Once a day 1 capsule 24h Jul, 30 day(s ) Not-Taking D3-1000 1000 UNIT Orally Once a day 1 capsule 24h Not-Taking Carvedilol 12.5 MG Orally 2 times a day 12h Active Spiriva HandiHaler 18 MCG Inhalation Once a day 1 capsule 24h Not- Taking Magnesium Oxide 1 Tablet by Oral route 1 time per day Apr, Active RESULTS No Results PROCEDURES Procedure Date Ordered Result Body Site [facility] VISIT ESTABLISHED PATIENT September 10, 2017 INSTRUCTIONS MEDICATIONS ADMINISTERED No Known Medications MEDICAL (GENERAL) HISTORY Type Description Date Medical History hyperlipidemia Medical History htn Medical History kidney failure stage 4 - dx in 2012 Medical History hypothyroidisim Medical History neuropathy Medical History COPD - See's Dr Burnette in [facility] Medical History Chronic Heart Failure Surgical History 2 cesareans Surgical History defibrillator - 2012 Hospitalization History pneumonia for a week 2017 Hospitalization History Hospitalized at [facility]- CHF, Chest pain. Dismissed 07/11/17 07/10/2017 Hospitalization History [facility] pneumonia, hypoxia-[facility] 07/30/17 Hospitalization History [facility]- [facility] PNA, Respiratory Failure. Transfered to [place] 10/25/2017 Hospitalization History CHF/COPD 11/2017
--- OUTSIDE RECORDS SUMMARY | 2018-03-06 23:19 | XMS REPORT ---
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 Name Role Phone TEAGAN VERNON Unavailable PROBLEMS Type Condition ICD9-CM Code MYT26-SC Code Onset Dates Condition Status SNOMED Code Problem Chronic systolic heart failure I50.22 Active 984095452 Problem Anxiety F41.9 Active 05804871 Problem Anemia associated with chronic renal failure D63.1 Active 629863278 Problem Essential hypertension I10 Active 20160389 Problem Mild depression F32.0 Active 884232048 Problem Chronic obstructive pulmonary disease, unspecified J44.9 Active 16868637 Problem Cardiomyopathy I42.9 Active 84682339 Problem Paroxysmal atrial fibrillation I48.0 Active 507405744 Problem Acute on chronic combined systolic and diastolic CHF (congestive heart failure) I50.43 Active 412629156505102 Problem CKD (chronic kidney disease) stage 4, GFR 15-29 ml/min N18.4 Active 012103077 Problem Chronic obstructive pulmonary disease with (acute) exacerbation J44.1 Active 300086670 ALLERGIES Substance Reaction Event Type Date Status Demerol Unknown Drug Allergy Feb, Active Bee Venom Unknown Non Drug Allergy Feb, Active ENCOUNTERS Encounter Location Date Diagnosis [facility] [address] [facility] [id number], [place] [address] Dec, [facility] [address] [facility] [id number], [place] [address] Dec, [facility] [address] [id number], [place] [address] Dec, [facility] [address] [place] [id number] Dec, Encounter for examination for admission to retirement Z02.2 ; Chronic obstructive pulmonary disease, unspecified J44.9 ; Paroxysmal atrial fibrillation I48.0 ; CKD (chronic kidney disease) stage 4, GFR 15-29 ml/min N18.4 and Cardiomyopathy I42.9 [facility] [address] [id number], [place] [address] Dec, [facility] [id number] [place] [address] 98314- 4894 Nov, Acute on chronic combined systolic and diastolic CHF ( congestive heart failure) I50.43 [facility] [id number] [place] [address] 74560- 7746 Nov, [facility] [id number] [place] [address] 09406- 0799 Nov, [facility] [id number] [place] [address] 56390- 8552 Nov, Chronic systolic heart failure I50.22 ; Paroxysmal atrial fibrillation I48.0 ; Chronic obstructive pulmonary disease with (acute) exacerbation J44.1 ; Chronic kidney disease, stage 4 (severe) N18.4 ; Pain in right hip M25.551 and Pain in left hip M25.552 [facility] [id number] [place] [address] 37130- 3771 Nov, Chronic kidney disease, stage 4 (severe) N18.4 [facility] [address], [place] [address] Nov, [facility] [address], [place] [address] Nov, [facility] [id number] [place] [address] 19470- 1043 October, Chronic obstructive pulmonary disease with (acute) exacerbation J44.1 [facility] [id number] [place] [address] 60166- 3069 October, [facility] [address], [place] [address] 9[address] October, [facility] [id number] [place] [address] 55697- 1933 Sep, Chronic kidney disease, stage 4 (severe) N18.4 and Chronic kidney disease, stage IV (severe) N18.4 [facility] [id number] [place] [address] 21033- 8417 Sep, Chronic kidney disease, stage 4 (severe) N18.4 [facility] [id number] [place] [address] 76952- 1282 Sep, Anxiety F41.9 ; Paroxysmal atrial fibrillation I48.0 ; Chronic kidney disease, stage 4 (severe) N18.4 ; Chronic systolic heart failure I50.22 and Anemia associated with chronic renal failure D63.1 [facility] [facility] [id number] [place] [address] 03822- 3531 Sep, [facility] [id number] [place] [address] 51375- 4331 Aug, [facility] [id number] [place] [address] 17668- 6461 Aug, [facility] [address] [place] [id number] Aug, Acute on chronic combined systolic and diastolic CHF (congestive heart failure) I50.43 ; Essential hypertension I10 ; CKD (chronic kidney disease) stage 4, GFR 15-29 ml/min N18.4 ; Paroxysmal atrial fibrillation I48.0 and Mild depression F32.0 [place] [facility] [id number] [place] [address] 51799- 2030 Aug, [facility] [id number] [place] [address] 18723- 7175 Aug, [place] [facility] [id number] [place] [address] 91487- 1452 Aug, Acute on chronic respiratory failure with hypoxia J96.21 ; Acute kidney failure, unspecified N17.9 ; Chronic kidney disease, stage 4 ( severe) N18.4 ; Acute on chronic combined systolic and diastolic CHF ( congestive heart failure) I50.43 ; Paroxysmal atrial fibrillation I48.0 and Cardiomyopathy, unspecified type I42.9 [facility] [address], [place] [address] Aug, [facility] [id number] [place] [address] 81093- 6521 14 Jul, 2017 [facility] [id number] [place] [address] 61849- 3008 Jul, [facility] [id number] [place] [address] 51572- 1040 Jul, [facility] [id number] [place] [address] 04646- 7246 Jul, [facility] [id number] [place] [address] 37481- 5144 Jul, Community acquired pneumonia of right lower lobe of lung J18.1 ; CKD (chronic kidney disease) stage 4, GFR 15-29 ml/min N18.4 and Shortness of breath R06.02 [facility] [address] [id number] [id number] Jul, [facility] [id number] [place] [address] 32765- 9710 Jun, Anxiety F41.9 [facility] [id number] [place] [address] 62099- 1739 Apr, Anxiety F41.9 [facility] [id number] [place] [address] 04703- 5836 10 Apr, 2017 Cough R05 and Pneumonia of right lower lobe due to infectious organism J18.1 [facility] [id number] [place] [address] 11932- 4232 07 Apr, 2017 [facility] [id number] [place] [address] 46816- 6277 06 Apr, 2017 Chronic kidney disease, stage IV (severe) N18.4 and COPD exacerbation J44.1 [facility] [id number] [place] [address] 43098- 3635 Feb, Chronic systolic heart failure I50.22 ; Essential hypertension I10 ; Anemia associated with chronic renal failure D63.1 and Chronic kidney disease, stage 4 (severe) N18.4 [facility] [id number] [place] [address] 77492- 6757 Feb, Anxiety F41.9 [facility] [address] [address] 4119 Feb, [place] [id number] [place] [address] 77438- 6825 Feb, [place] [address] [address] 486[address] Jan, Other fatigue R53.83 ; Otalgia of both ears H92.03 and Urinary urgency R39.15 [place] [facility] [id number] [place] [address] 92786- 5973 Jan, Acute non-recurrent maxillary sinusitis J01.00 ; Chronic systolic heart failure I50.22 ; Stage 3 chronic kidney disease N18.3 and Mild depression F32.0 [place] [facility] [id number] [place] [address] 00899- 9511 Sep, [facility] [id number] [place] [address] 08495- 7305 Sep, [facility] [id number] [place] [address] 86790- 9044 Feb, [facility] [id number] [place] [address] 03086- 6313 Feb, [facility] [id number] [place] [address] 12877- 1632 Dec, [facility] [id number] [place] [address] 66970- 5834 Dec, [facility] [id number] [place] [address] 29460- 9633 Nov, [facility] [place] [facility] [address] [id number] [place] [address]- 5903 Nov, [facility] [place] [facility] [address] [id number] [place] [address] Nov, [facility] [place] [facility] [address] [id number] [place] [address]- 1072 Nov, [facility] [place] [facility] [address] [id number] [place] [address]- 8076 October, [facility] [place] [facility] [address] [id number] [place] [address]- 7208 October, [facility] [place] [facility] [address] [id number] [place] [address]- 0800 Sep, [facility] [place] [facility] [address] [id number] [place] [address]- 1428 Sep, [facility] [place] [facility] [address] [id number] [place] [address]- 3152 Sep, [facility] [place] [facility] [address] [id number] [place] [address]- 3987 Sep, [facility] [place] [facility] [address] [id number] [place] [address]- 7712 Sep, [facility] [place] [facility] [address] [id number] [place] [address]- 2177 Aug, [facility] [place] [facility] [address] [id number] [place] [address]- 0845 Aug, [facility] [place] [facility] [address] [id number] [place] [address]- 7219 Aug, [facility] [place] [facility] [address] [id number] [place] [address]- 2409 Aug, [facility] [place] [facility] [address] [id number] [place] [address]- 8400 Aug, [facility] [place] [facility] [address] [id number] [place] [address]- 6318 Aug, [facility] [place] [facility] [address] [id number] [place] [address]- 4766 Aug, [facility] [place] [facility] [address] [id number] [place] [address]- 2538 Aug, [facility] [place] [facility] [address] [id number] [place] [address]- 0642 Jul, [facility] [place] [facility] [address] [id number] [place] [address]- 6837 Jul, [facility] [place] [facility] [address] [id number] [place] [address]- 6065 Jul, [facility] [place] [facility] [address] [id number] [place] [address]- 4126 Jul, [facility] [place] [facility] [address] [id number] [place] [address]- 2942 Jul, [facility] [place] [facility] [address] [id number] [place] [address]- 1282 Jul, [facility] [place] [facility] [address] [id number] [place] [address]- 8800 Jun, [facility] [place] [facility] [address] [id number] [place] [address]- 8368 Jun, [facility] [place] [facility] [address] [id number] [place] [address]- 0779 Jun, [facility] [place] [facility] [address] [id number] [place] [address]- 6882 Jun, [facility] [place] [facility] [address] [id number] [place] [address]- 7910 Jun, [facility] [place] [facility] [address] [id number] [place] [address]- 3965 May, [facility] [place] [facility] [address] [id number] [place] [address]- 2546 May, [facility] [place] [facility] [address] [id number] [place] [address]- 5419 May, [facility] [place] [facility] [address] [id number] [place] [address]- 4709 May, [facility] [place] [facility] [address] [id number] [place] [address] 2544 May, [facility] [place] [facility] [address] [id number] [place] [address]- 1170 Apr, [facility] [place] [facility] [address] [id number] [place] [address]- 5298 Apr, [facility] [place] [facility] [address] [id number] [place] [address]- 0609 Mar, [facility] [place] [facility] [address] [id number] [place] [address]- 2694 Mar, [facility] [place] [facility] [address] [id number] [place] [address]- 0203 Mar, [facility] [place] [facility] [address] [id number] [place] [address]- 8130 Mar, [facility] [place] [facility] [address] [id number] [place] [address]- 1890 Feb, [facility] [place] [facility] [address] [id number], [place] [address]- 4581 Jan, [facility] [place] [facility] [address] [id number] [place] [address] 2544 Jan, [facility] [place] [facility] [address] [id number] [place] [address] 2547 Aug, [facility] [place] [facility] [address] [id number] [place] [address] 2540 Jul, [facility] [place] [facility] [address] [id number] [place] [address] 2543 Jun, [facility] [place] [facility] [address] [id number] [place] [address]- 4185 May, [facility] [place] [facility] [address] [id number] [place] [address]- 8168 May, [facility] [place] [facility] [address] [id number] [place] [address]- 2356 May, [facility] [place] [facility] [address] [id number] [place] [address]- 0848 May, [facility] [place] [facility] [address] [id number] [place] [address]- 4213 Apr, [facility] [place] [facility] [address] [id number] [place] [address]- 6244 Apr, [facility] [place] [facility] [address] [id number] [place] [address]- 9357 Mar, [facility] [place] [facility] [address] [id number] [place] [address]- 2543 Mar, [facility] [place] [facility] [address] [id number] [place] [address]- 1105 Mar, [facility] [place] [facility] [address] [id number] [place] [address]- 3640 Mar, [facility] [place] [facility] [address] [facility] [id number] [place] [address]- 7256 Mar, [facility] [place] [facility] [address] [id number] [place] [address]- 9282 Mar, [facility] [place] [facility] [address] [id number] [place] [address]- 5599 Dec, [facility] [place] [facility] [address] [id number] [place] [address]- 1634 Dec, [facility] [place] [facility] [address] [facility] [id number] [place] [address] 2546 Nov, [facility] [place] [facility] [address] [id number] [place] [address]- 6443 Nov, [facility] [address] [facility] [id number], [place] [address]- 3856 October, [facility] [address] [facility] [id number], [place] [address]- 0246 October, [facility] [address] [facility] [id number], [place] [address]- 3519 Sep, [facility] [address] [facility] [id number], [place] [address]- 2006 Aug, [facility] [address] [facility] [id number], [place] [address]- 5767 Aug, [facility] [address] [facility] [id number], [place] [address]- 5726 Aug, IMMUNIZATIONS No Known Immunizations SOCIAL HISTORY Never Assessed REASON FOR VISIT lab f/u-WILLIAM Teague PLAN OF CARE Activity Details Follow Up 3 Months with [facility]EL Reason: VITAL SIGNS Height 60 in 2017-03-27 Weight 187 lbs 2017-03-27 Temperature 98.1 degrees Fahrenheit 2017-03-27 Heart Rate 80 bpm 2017-03-27 Respiratory Rate 18 2017-03-27 BMI 36.52 kg/m2 2017-03-27 Blood pressure systolic 98 mmHg 2017-03-27 Blood pressure diastolic 60 mmHg 2017-03-27 MEDICATIONS Medication Instructions Dosage Frequency Start Date End Date Duration Status D3-1000 1000 UNIT Orally Once a day 1 capsule 24h Active Gabapentin 300 MG Orally Once a day 1 capsule 24h Active Ferrous Sulfate 325 (65 Fe) MG Orally twice a day 1 tablet 12h Active Atorvastatin Calcium 20 MG Orally Once a day 1 tablet 24h Active 28-0.8 MG Active HydrOXYzine HCl 10 MG Orally three times a day as needed 1 tablet as needed 30 days Active Montelukast Sodium 10 MG Orally Once a day 1 tablet in the evening 24h Active Furosemide 20 MG Orally Once a day 1 tablet by Oral route 1 time per day PRN edema 24h Feb, Active Breo Ellipta 200-25 MCG/INH Inhalation Once a day 1 puff 24h Active Levothyroxine Sodium 100 MCG Orally Once a day 1 tablet on an empty stomach in the morning 24h Active Omeprazole 20 mg Orally 2 times a day 1 capsule 12h Feb, 30 day (s) Active Trazodone HCl 150 MG Orally at night as needed for sleep 1.5 tablets 30 days Active Isosorbide Mononitrate ER 30 MG Orally Once a day 2 tablets 24h Active Melatonin 3 MG Orally Once a day 1 tablet an hour before bedtime for sleep 24h 18 Feb, 2017 30 day(s) Active HydrALAZINE HCl 25 MG Orally 2 times a day 1 tablet with food 12h Active Loratadine 10 MG Orally Once a day 1 tablet 24h Active Magnesium Oxide 1 Tablet by Oral route 1 time per day Apr, Active Carvedilol 12.5 MG Orally 2 times a day 12h Active Spiriva HandiHaler 18 MCG Inhalation Once a day 1 capsule 24h Active RESULTS No Results PROCEDURES Procedure Date Ordered Result Body Site [facility] VISIT ESTABLISHED PATIENT Mar 27, 2017 INSTRUCTIONS MEDICATIONS ADMINISTERED No Known Medications MEDICAL (GENERAL) HISTORY Type Description Date Medical History hyperlipidemia Medical History htn Medical History kidney failure stage 4 - dx in 2012 Medical History hypothyroidisim Medical History neuropathy Medical History COPD - See's Dr Burnette in [facility] Medical History Chronic Heart Failure Surgical History 2 cesareans Surgical History defibrillator - 2012 Hospitalization History pneumonia for a week 2017 Hospitalization History Hospitalized at [facility]- CHF, Chest pain. Dismissed 07/11/17 07/10/2017 Hospitalization History [facility] pneumonia, hypoxia-[facility] 07/30/17 Hospitalization History [facility]- [facility] PNA, Respiratory Failure. Transfered to [facility] 10/25/2017 Hospitalization History CHF/COPD 11/2017
--- OUTSIDE RECORDS SUMMARY | 2018-03-06 23:19 | XMS REPORT ---
Author Author TEAGAN VERNON [facility] Address [address] [place] [address] Care Team Providers Care Director Outpatient Services Name Role Phone TEAGAN VERNON Unavailable PROBLEMS Type Condition ICD9-CM Code [id number] Code Onset Dates Condition Status SNOMED Code Problem Chronic systolic heart failure I50.22 Active 419380914 Problem Anxiety F41.9 Active 95044656 Problem Anemia associated with chronic renal failure D63.1 Active 764520005 Problem Essential hypertension I10 Active 75937934 Problem Mild depression F32.0 Active 249879195 Problem Chronic obstructive pulmonary disease, unspecified J44.9 Active 72565608 Problem Cardiomyopathy I42.9 Active 57923075 Problem Paroxysmal atrial fibrillation I48.0 Active 230985534 Problem Acute on chronic combined systolic and diastolic CHF (congestive heart failure) I50.43 Active 642538122705071 Problem CKD (chronic kidney disease) stage 4, GFR 15-29 ml/min N18.4 Active 290637487 Problem Chronic obstructive pulmonary disease with (acute) exacerbation J44.1 Active 879446388 ALLERGIES No Information ENCOUNTERS Encounter Location Date Diagnosis [facility] [place] [facility] [id number] [address] Dec, [facility] [facility] [id number] [address] Dec, Anxiety F41.9 [facility] [place] [facility] [id number] [address] Dec, [facility] [place] [facility] [id number], [place] [address] Dec, [facility] [place] [facility] [id number] [address] Dec, [facility] [address] [place] [id number] Dec, Encounter for examination for admission to shelter Z02.2 ; Chronic obstructive pulmonary disease, unspecified J44.9 ; Paroxysmal atrial fibrillation I48.0 ; CKD (chronic kidney disease) stage 4, GFR 15-29 ml/min N18.4 and Cardiomyopathy I42.9 [facility] [place] [facility] [address], [place] [address] Dec, [facility] [place] [facility] [id number] [place] [address]76- 6695 Nov, Acute on chronic combined systolic and diastolic CHF ( congestive heart failure) I50.43 [facility] [place] [facility] [id number] [place] [address]- 7963 Nov, [facility] [place] [facility] [address], [place] [address] Nov, [facility] [place] [facility] [id number] [place] [address]18- 8725 Nov, Chronic systolic heart failure I50.22 ; Paroxysmal atrial fibrillation I48.0 ; Chronic obstructive pulmonary disease with (acute) exacerbation J44.1 ; Chronic kidney disease, stage 4 (severe) N18.4 ; Pain in right hip M25.551 and Pain in left hip M25.552 [facility] [place] [facility] [address], [place] [address] Nov, Chronic kidney disease, stage 4 (severe) N18.4 [facility] [place] [facility] [address] [address] Nov, [facility] [place] [facility] [address] [address] Nov, [facility] [facility] [id number] [place] [address] 55362- 0678 October, Chronic obstructive pulmonary disease with (acute) exacerbation J44.1 [facility] [facility] [address] [address] October, [place] [address], [place] [address] October, [place] [id number] [place] [address]409- 1368 Sep, Chronic kidney disease, stage 4 (severe) N18.4 and Chronic kidney disease, stage IV (severe) N18.4 [place] [id number] [place] [address] 63232- 2083 Sep, Chronic kidney disease, stage 4 (severe) N18.4 [place] [id number] [place] [address] 06243- 5856 Sep, Anxiety F41.9 ; Paroxysmal atrial fibrillation I48.0 ; Chronic kidney disease, stage 4 (severe) N18.4 ; Chronic systolic heart failure I50.22 and Anemia associated with chronic renal failure D63.1 [id number] [place] [address] 80787- 8557 Sep, [place] [id number] [place] [address] 46281- 1418 Aug, [address] [place] [id number] [place] [address] 64452- 6392 Aug, [facility] [address] [place] [id number] Aug, Acute on chronic combined systolic and diastolic CHF (congestive heart failure) I50.43 ; Essential hypertension I10 ; CKD (chronic kidney disease) stage 4, GFR 15-29 ml/min N18.4 ; Paroxysmal atrial fibrillation I48.0 and Mild depression F32.0 [place] [address], [place] [address] 65[address] Aug, [place] [id number] [place] [address]64- 5402 Aug, [place] [id number] [place] [address] 24290- 8524 14 Aug, 2017 Acute on chronic respiratory failure with hypoxia J96.21 ; Acute kidney failure, unspecified N17.9 ; Chronic kidney disease, stage 4 ( severe) N18.4 ; Acute on chronic combined systolic and diastolic CHF ( congestive heart failure) I50.43 ; Paroxysmal atrial fibrillation I48.0 and Cardiomyopathy, unspecified type I42.9 [facility] [address] [address] Aug, [facility] [facility] [id number] [place] [address] 68907- 4101 14 Jul, 2017 [facility] [place] [facility] [id number] [place] [address]79- 9961 Jul, [place] [address] [address] Jul, [facility] [place] [facility] [id number] [place] [address] 44793- 6562 Jul, [facility] [place] [facility] [id number] [place] [address] 82395- 7156 Jul, Community acquired pneumonia of right lower lobe of lung J18.1 ; CKD (chronic kidney disease) stage 4, GFR 15-29 ml/min N18.4 and Shortness of breath R06.02 [facility] [id number] [place] [id number] 05 Jul, 2017 [facility] [facility] [id number] [place] [address] 48679- 0886 Jun, Anxiety F41.9 [facility] [facility] [id number] [place] [address] 70621- 9583 Apr, Anxiety F41.9 [facility] [facility] [id number] [place] [address] 51509- 0272 10 Apr, 2017 Cough R05 and Pneumonia of right lower lobe due to infectious organism J18.1 [facility] [id number] [place] [address] 57779- 6183 07 Apr, 2017 [facility] [place] [facility] [id number] [place] [address] 84249- 2792 Apr, Chronic kidney disease, stage IV (severe) N18.4 and COPD exacerbation J44.1 [place] [id number] [place] [address] 78324- 9807 Feb, Chronic systolic heart failure I50.22 ; Essential hypertension I10 ; Anemia associated with chronic renal failure D63.1 and Chronic kidney disease, stage 4 (severe) N18.4 [place] [id number] [place] [address] 84286- 3819 Feb, Anxiety F41.9 [place] [address] [address]- 7383 Feb, [place] [address] [address] 69[address] Feb, [address] [id number] [place] [address] 61991- 9093 Jan, Other fatigue R53.83 ; Otalgia of both ears H92.03 and Urinary urgency R39.15 [address] [id number] [place] [address] 43318- 7346 Jan, Acute non-recurrent maxillary sinusitis J01.00 ; Chronic systolic heart failure I50.22 ; Stage 3 chronic kidney disease N18.3 and Mild depression F32.0 [place] [id number] [place] [address] 29634- 7721 Sep, [place] [id number] [place] [address] 38171- 1574 Sep, [place] [id number] [place] [address] 20824- 0201 Feb, [place] [id number] [place] [address] 24454- 3411 Feb, [place] [id number] [place] [address] 36874- 3067 Dec, [facility] [place] [facility] [address] [id number] [place] [address]- 0464 Dec, [facility] [place] [facility] [address] [id number] [place] [address]- 3579 Nov, [facility] [place] [facility] [address] [id number] [place] [address]- 1895 Nov, [facility] [place] [facility] [address] [id number] [place] [address]- 8183 Nov, [facility] [place] [facility] [address] [id number] [place] [address]- 6437 Nov, [facility] [place] [facility] [address] [id number] [place] [address]- 2521 October, [facility] [place] [facility] [address] [id number] [place] [address]- 4067 October, [facility] [place] [facility] [address] [id number] [place] [address]- 0915 Sep, [facility] [place] [facility] [address] [id number] [place] [address]- 4755 Sep, [facility] [place] [facility] [address] [id number] [place] [address]- 8675 Sep, [facility] [place] [facility] [address] [id number] [place] [address]- 1692 Sep, [facility] [place] [facility] [address] [id number] [place] [address]- 9653 Sep, [facility] [place] [facility] [address] [id number] [place] [address]- 0229 Aug, [facility] [place] [facility] [address] [id number] [place] [address]- 1767 Aug, [facility] [place] [facility] [address] [id number] [place] [address]- 1872 Aug, [facility] [place] [facility] [address] [id number] [place] [address]- 2769 Aug, [facility] [place] [facility] [address] [id number] [place] [address]- 6377 Aug, [facility] [place] [facility] [address] [id number] [place] [address]- 2942 Aug, [facility] [place] [facility] [address] [id number] [place] [address]- 2918 Aug, [facility] [place] [facility] [address] [id number] [place] [address]- 8579 Aug, [facility] [place] [facility] [address] [id number] [place] [address]- 1490 Jul, [facility] [place] [facility] [address] [id number] [place] [address]- 8220 Jul, [facility] [place] [facility] [address] [id number] [place] [address]- 6375 Jul, [facility] [place] [facility] [address] [id number] [place] [address]- 2708 Jul, [facility] [place] [facility] [address] [id number] [place] [address]- 7500 Jul, [facility] [place] [facility] [address] [id number] [place] [address]- 9289 Jul, [facility] [place] [facility] [address] [id number] [place] [address]- 6303 Jun, [facility] [place] [facility] [address] [id number] [place] [address]- 2592 Jun, [facility] [place] [facility] [address] [id number] [place] [address]- 6620 Jun, [facility] [place] [facility] [address] [id number] [place] [address]- 7340 Jun, [facility] [place] [facility] [address] [id number] [place] [address]- 4452 Jun, [facility] [place] [facility] [address] [id number] [place] [address]- 7771 May, [facility] [address] [id number] [place] [address]- 4975 May, [facility] [address] [id number] [place] [address] 2546 May, [facility] [address] [id number] [place] [address]- 0122 May, [facility] [address] [id number] [place] [address]- 2542 May, [facility] [address] [id number] [place] [address]- 9095 Apr, [facility] [address] [id number] [place] [address]- 2039 Apr, [facility] [address] [facility] [id number] [place] [address]- 1520 Mar, [facility] [address] [id number] [place] [address]- 3958 Mar, [facility] [address] [facility] [id number] [place] [address]- 2743 Mar, [facility] [address] [facility] [id number] [place] [address]- 3390 Mar, [facility] [address] [id number] [place] [address]- 2546 Feb, [facility] [address] [id number] [place] [address]- 2546 Jan, [facility] [place] [facility] [address] [id number] [place] [address]- 2546 Jan, [facility] [place] [facility] [address] [facility] [id number] [place] [address]- 2546 Aug, [facility] [address] [facility] [id number] [place] [address]- 1506 Jul, [facility] [place] [facility] [address] [id number] [place] [address]- 4554 Jun, [facility] [place] [facility] [address] [id number] [place] [address]- 4066 May, [facility] [place] [facility] [address] [id number] [place] [address]- 0166 May, [facility] [place] [facility] [address] [id number] [place] [address]- 6176 May, [facility] [place] [facility] [address] [id number] [place] [address]- 1926 May, [facility] [place] [facility] [address] [id number] [place] [address]- 3266 Apr, [facility] [place] [facility] [address] [id number] [place] [address]- 5048 Apr, [facility] [place] [facility] [address] [id number] [place] [address]- 0385 Mar, [facility] [place] [facility] [address] [id number] [place] [address]- 0379 Mar, [facility] [place] [facility] [address] [facility] [id number] [address]- 3703 Mar, [facility] [place] [facility] [address] [id number], [place] [address]- 1302 Mar, [facility] [place] [facility] [address] [id number] [address]- 3344 Mar, [facility] [place] [facility] [address] [id number] [place] [address]- 1000 Mar, [facility] [place] [facility] [address] [facility] [id number], [place] [address]- 1216 Dec, [facility] [place] [facility] [address] [facility] [id number], [place] [address]- 1836 Dec, [facility] [place] [facility] [address] [id number], [place] [address]- 2546 Nov, [facility] [place] [facility] [id number], [place] [address]- 2546 Nov, [facility] [place] [facility] [id number], [place] [address] 2546 October, [facility] [place] [facility] [address], [place] [address]- 2546 October, [facility] [place] [facility] [id number] [place] [address] 10067- 2546 Sep, [facility] [place] [facility] [id number] [place] [address] 79028- 3636 Aug, [facility] [place] [facility] [address], [place] [address] 2546 Aug, [facility] [place] [facility] [address], [place] [address]- 2496 Aug, IMMUNIZATIONS No Known Immunizations SOCIAL HISTORY Never Assessed REASON FOR VISIT Controlled Med Refill-lorazepam PLAN OF CARE VITAL SIGNS MEDICATIONS Medication Instructions Dosage Frequency Start Date End Date Duration Status Lorazepam 0.5 MG Orally everyday at bedtime 1 tablet Aug, Active RESULTS No Results PROCEDURES No Known procedures INSTRUCTIONS MEDICATIONS ADMINISTERED No Known Medications MEDICAL (GENERAL) HISTORY Type Description Date Medical History hyperlipidemia Medical History htn Medical History kidney failure stage 4 - dx in 2012 Medical History hypothyroidisim Medical History neuropathy Medical History COPD - See's Dr Burnette in [facility] Medical History Chronic Heart Failure Surgical History 2 cesareans Surgical History defibrillator - 2012 Hospitalization History pneumonia for a week 2017 Hospitalization History Hospitalized at [facility]- CHF, Chest pain. Dismissed 07/11/17 07/10/2017 Hospitalization History [facility] pneumonia, hypoxia-[facility] 07/30/17 Hospitalization History [facility]- R[facility] PNA, Respiratory Failure. Transfered to [place] 10/25/2017 Hospitalization History CHF/COPD 11/2017
--- OUTSIDE RECORDS SUMMARY | 2018-03-06 23:20 | XMS REPORT ---
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 Name Role Phone TEAGAN VERNON Unavailable PROBLEMS Type Condition ICD9-CM Code SEI03-MG Code Onset Dates Condition Status SNOMED Code Problem Chronic systolic heart failure I50.22 Active 572730512 Problem Anxiety F41.9 Active 61994811 Problem Anemia associated with chronic renal failure D63.1 Active 999368198 Problem Essential hypertension I10 Active 35709750 Problem Mild depression F32.0 Active 587191994 Problem Chronic obstructive pulmonary disease, unspecified J44.9 Active 76039295 Problem Cardiomyopathy I42.9 Active 99151041 Problem Paroxysmal atrial fibrillation I48.0 Active 046116158 Problem Acute on chronic combined systolic and diastolic CHF (congestive heart failure) I50.43 Active 830030606840032 Problem CKD (chronic kidney disease) stage 4, GFR 15-29 ml/min N18.4 Active 385487966 Problem Chronic obstructive pulmonary disease with (acute) exacerbation J44.1 Active [id number] ALLERGIES No Information ENCOUNTERS Encounter Location Date Diagnosis [facility] [id number] [address] Dec, [facility] [id number] [address] Dec, [facility] [id number], [place] [address] Dec, [facility] [address] [place] [id number] Dec, Encounter for examination for admission to fpc Z02.2 ; Chronic obstructive pulmonary disease, unspecified J44.9 ; Paroxysmal atrial fibrillation I48.0 ; CKD (chronic kidney disease) stage 4, GFR 15-29 ml/min N18.[address] [facility] [address], [place] [address] Dec, [facility] [id number] [place] [address]61- 1023 Nov, Acute on chronic combined systolic and diastolic CHF ( congestive heart failure) I50.43 [facility] [id number] [place] [address]66- 2079 Nov, [facility] [id number] [address] Nov, [facility] [id number] [place] [address]- 9923 Nov, Chronic systolic heart failure I50.22 ; Paroxysmal atrial fibrillation I48.0 ; Chronic obstructive pulmonary disease with (acute) exacerbation J44.1 ; Chronic kidney disease, stage 4 (severe) N18.4 ; Pain in right hip M25.551 and Pain in left hip M25.552 [facility] [address] [address] Nov, Chronic kidney disease, stage 4 (severe) N18.4 [facility] [id number] [address] Nov, [facility] [id number], [place] [address] Nov, [facility] [address] [address] October, Chronic obstructive pulmonary disease with (acute) exacerbation J44.1 [facility] [address] [address] October, [facility] [address], [place] [address] October, [facility] [id number], [place] [address] Sep, Chronic kidney disease, stage 4 (severe) N18.4 and Chronic kidney disease, stage IV (severe) N18.4 [address], [place] [address] Sep, Chronic kidney disease, stage 4 (severe) N18.4 [id number], [place] [address] Sep, Anxiety F41.9 ; Paroxysmal atrial fibrillation I48.0 ; Chronic kidney disease, stage 4 (severe) N18.4 ; Chronic systolic heart failure I50.22 and Anemia associated with chronic renal failure D63.1 [id number] [place] [address]62- 7098 Sep, [address] [facility] [id number] [place] [address]79- 1399 Aug, [id number] [place] [address]83- 9582 Aug, [facility] [address] [facility] [place] [id number] Aug, Acute on chronic combined systolic and diastolic CHF (congestive heart failure) I50.43 ; Essential hypertension I10 ; CKD (chronic kidney disease) stage 4, GFR 15-29 ml/min N18.4 ; Paroxysmal atrial fibrillation I48.0 and Mild depression F32.0 [id number] [address] Aug, [facility] [facility] [id number] [place] [address] 27541- 1699 Aug, [place] [id number] [place] [address]337- 0435 Aug, Acute on chronic respiratory failure with hypoxia J96.21 ; Acute kidney failure, unspecified N17.9 ; Chronic kidney disease, stage 4 ( severe) N18.4 ; Acute on chronic combined systolic and diastolic CHF ( congestive heart failure) I50.43 ; Paroxysmal atrial fibrillation I48.0 and Cardiomyopathy, unspecified type I42.9 [id number] [address] Aug, [facility] [id number] [place] [address] 47[address]- [address]187 Jul, [facility] [id number] [place] [address] 03052- [address]10 Jul, [facility] [id number] [place] [address] 73257- 1539 Jul, [facility] [id number] [place] [address] 37066- 4042 Jul, [facility] [id number] [place] [address] 41876- 0344 Jul, Community acquired pneumonia of right lower lobe of lung J18.1 ; CKD (chronic kidney disease) stage 4, GFR 15-29 ml/min N18.4 and Shortness of breath R06.02 [facility] [id number] [place] [id number] Jul, [facility] [id number] [place] [address] 45853- 3517 Jun, Anxiety F41.9 [facility] [id number] [place] [address] 10361- 9258 13 Apr, [address] [facility] [id number] [place] [address] 69475- 3161 10 Apr, 2017 Cough R05 and Pneumonia of right lower lobe due to infectious organism J18.1 [facility] [address], [place] [address] 07 Apr, 2017 [facility] [id number] [place] [address] 03890- 5055 06 Apr, 2017 Chronic kidney disease, stage IV (severe) N18.4 and COPD exacerbation J44.1 [facility] [id number] [place] [address] 69121- 1903 28 Feb, 2017 Chronic systolic heart failure I50.22 ; Essential hypertension I10 ; Anemia associated with chronic renal failure D63.1 and Chronic kidney disease, stage 4 (severe) N18.4 [facility] [id number] [place] [address] 73728- 0191 18 Feb, [address] [facility] [id number] [place] [address] 35382- 1624 Feb, [facility] [address] [address] Feb, [facility] [id number] [place] [address] 40944- 8417 Jan, Other fatigue R53.83 ; Otalgia of both ears H92.03 and Urinary urgency R39.15 [address] [place] [id number] [place] [address] 44221- 7736 Jan, Acute non-recurrent maxillary sinusitis J01.00 ; Chronic systolic heart failure I50.22 ; Stage 3 chronic kidney disease N18.3 and Mild depression F32.0 [facility] [id number] [place] [address] 27698- 0553 Sep, [facility] [id number] [place] [address] 60071- 4679 Sep, [facility] [id number] [place] [address] 73850- 8866 Feb, [facility] [id number] [place] [address] 63786- 2060 Feb, [facility] [id number] [place] [address] 25519- 2053 Dec, [facility] [id number] [place] [address] 21916- 3023 Dec, [facility] [id number] [place] [address] 50725- 1077 Nov, [facility] [address] [place] [address]- [address]40 Nov, [facility] [place] [facility] [address] [id number] [place] [address]- 7123 Nov, [facility] [place] [facility] [address] [id number] [place] [address] Nov, [facility] [place] [facility] [address] [id number] [place] [address]- 0990 October, [facility] [place] [facility] [address] [id number] [place] [address]- 3353 October, [facility] [place] [facility] [address] [id number] [place] [address]- 1739 Sep, [facility] [place] [facility] [address] [id number] [place] [address]- 0693 Sep, [facility] [place] [facility] [address] [id number] [place] [address]- 5493 Sep, [facility] [place] [facility] [address] [id number] [place] [address]- 7770 Sep, [facility] [place] [facility] [address] [id number] [place] [address]- 1707 Sep, [facility] [place] [facility] [address] [id number] [place] [address]- 3542 Aug, [facility] [place] [facility] [address] [id number] [place] [address]- 8947 31 Aug, 2013 [facility] [place] [facility] [address] [id number] [place] [address]- 0165 27 Aug, 2013 [facility] [place] [facility] [address] [id number] [place] [address]- 7242 Aug, [facility] [place] [facility] [address] [id number] [place] [address]- 9984 Aug, [facility] [place] [facility] [address] [id number] [place] [address]- 7680 Aug, [facility] [place] [facility] [address] [id number] [place] [address]- 9223 Aug, [facility] [place] [facility] [address] [id number] [place] [address]- 4247 Aug, [facility] [place] [facility] [address] [id number] [place] [address]- 7706 Jul, [facility] [place] [facility] [address] [id number] [place] [address]- 4569 Jul, [facility] [place] [facility] [address] [id number] [place] [address]- 6267 Jul, [facility] [place] [facility] [address] [id number] [place] [address]- 2452 Jul, [facility] [place] [facility] [address] [id number] [place] [address]- 9400 Jul, [facility] [place] [facility] [address] [id number] [place] [address]- 3781 Jul, [facility] [place] [facility] [address] [id number] [place] [address]- 6036 Jun, [facility] [place] [facility] [address] [id number] [place] [address]- 0294 Jun, [facility] [place] [facility] [address] [id number] [place] [address]- 6978 Jun, [facility] [place] [facility] [address] [id number] [place] [address]- 2544 Jun, [facility] [place] [facility] [address] [id number] [place] [address]- 7218 Jun, [facility] [place] [facility] [address] [id number] [place] [address]- 2449 May, [facility] [place] [facility] [address] [id number] [place] [address]- 3606 May, [facility] [place] [facility] [address] [id number] [place] [address] 2546 May, [facility] [address] [id number] [place] [address]- 2004 May, [facility] [place] [facility] [address] [id number] [place] [address]- 4473 May, [facility] [address] [id number] [place] [address]- 1089 Apr, [facility] [place] [facility] [address] [id number] [place] [address]- 3691 Apr, [facility] [place] [facility] [address] [id number] [place] [address]- 6737 Mar, [facility] [place] [facility] [address] [id number] [place] [address]- 3226 Mar, [facility] [address] [id number] [place] [address]- 7865 Mar, [facility] [place] [facility] [address] [id number] [place] [address]- 9619 Mar, [facility] [place] [facility] [address] [id number] [place] [address]- 8889 Feb, [facility] [place] [facility] [address] [facility] [id number] [place] [address]- 6379 Jan, [facility] [place] [facility] [address] [id number] [place] [address]- 9339 Jan, [facility] [place] [facility] [address] [id number] [place] [address]- 2546 Aug, [facility] [place] [facility] [address] [id number] [place] [address] 2546 Jul, [facility] [place] [facility] [address] [id number] [place] [address]- 2546 Jun, [facility] [place] [facility] [address] [id number] [place] [address]- 7395 May, [facility] [place] [facility] [address] [id number] [place] [address]- 5428 May, [facility] [place] [facility] [address] [id number] [place] [address]- 5344 May, [facility] [place] [facility] [address] [id number] [place] [address]- 7216 May, [facility] [place] [facility] [address] [id number] [place] [address]- 4817 Apr, [facility] [place] [facility] [address] [id number] [place] [address]- 3172 Apr, [facility] [place] [facility] [address] [id number] [place] [address]- 0974 Mar, [facility] [place] [facility] [address] [id number] [place] [address]- 9925 Mar, [facility] [place] [facility] [address] [id number] [place] [address]- 7320 Mar, [facility] [place] [facility] [address] [id number] [place] [address]- 4066 Mar, [facility] [place] [facility] [address] [id number] [place] [address]- 0625 Mar, [facility] [place] [facility] [address] [id number] [place] [address]- 7225 Mar, [facility] [place] [facility] [address] [id number] [place] [address]- 9778 Dec, [facility] [place] [facility] [address] [id number] [place] [address]- 1944 Dec, [facility] [place] [facility] [address] [id number] [place] [address]- 9751 Nov, [facility] [place] [facility] [address] [id number] [place] [address]- 4670 Nov, [facility] [place] [facility] [address] [id number], [place] [address] 1336 October, [facility] [address] [facility] [id number] [place] [address] 2546 October, [facility] [address] [facility] [id number] [address] Sep, [facility] [address] [facility] [id number] [address]- 2546 Aug, [facility] [address] [facility] [id number], [place] [address]- [address]46 Aug, [facility] [address] [facility] [id number], [place] [address]- 2546 Aug, IMMUNIZATIONS No Known Immunizations SOCIAL HISTORY Never Assessed REASON FOR VISIT Hospital f/u PLAN OF CARE VITAL SIGNS MEDICATIONS Unknown Medications RESULTS No Results PROCEDURES No Known procedures INSTRUCTIONS MEDICATIONS ADMINISTERED No Known Medications MEDICAL (GENERAL) HISTORY Type Description Date Medical History hyperlipidemia Medical History htn Medical History kidney failure stage 4 - dx in 2012 Medical History hypothyroidisim Medical History neuropathy Medical History COPD - See's [facility] Medical History Chronic Heart Failure Surgical History 2 cesareans Surgical History defibrillator - 2012 Hospitalization History pneumonia for a week 2016 Hospitalization History Hospitalized at [facility] CHF, Chest pain. Dismissed 07/11/17 07/10/2017 Hospitalization History [facility] pneumonia, hypoxia-[facility] 07/30/17 Hospitalization History [facility] ([place]- [facility] PNA, Respiratory Failure. Transfered to [place] 10/25/2017 Hospitalization History CHF/COPD 11/2017
--- OUTSIDE RECORDS SUMMARY | 2018-03-06 23:21 | XMS REPORT ---
Author Author EDDIE EDIS Organization [facility] Address [address] [place] [address] Care Team Providers Care Classification Analyst Name Role Phone EDDIE EDIS Unavailable PROBLEMS Type Condition ICD9-CM Code CDE57-CO Code Onset Dates Condition Status SNOMED Code Problem Chronic systolic heart failure I50.22 Active 821986877 Problem Anemia associated with chronic renal failure D63.1 Active 191795275 Problem Mild depression F32.0 Active 832121398 Problem Essential hypertension I10 Active 94593730 Problem Chronic kidney disease, stage 4 (severe) N18.4 Active 171304892 Problem Paroxysmal atrial fibrillation I48.0 Active 986560226 Problem COPD exacerbation J44.1 Active 078823682015363 Problem Anxiety F41.9 Active 30094189 Problem Cardiomyopathy, unspecified type I42.9 Active 30916302 Problem Acute on chronic combined systolic and diastolic CHF (congestive heart failure) I50.43 Active [id number] ALLERGIES Substance Reaction Event Type Date Status Demerol Unknown Drug Allergy Apr, Active Bee Venom Unknown Non Drug Allergy Apr, Active ENCOUNTERS Encounter Location Date Diagnosis [facility] [address] [address] October, [facility] [address], [place] [address] October, [facility] [address], [place] [address] October, [facility] [id number] [place] [address] 29408- 1672 Sep, Chronic kidney disease, stage 4 (severe) N18.4 and Chronic kidney disease, stage IV (severe) N18.4 [facility] [id number] [place] [address] 98332- 6529 Sep, Chronic kidney disease, stage 4 (severe) N18.4 [facility] [id number] [place] [address] 32996- 4996 17 Sep, 2017 Anxiety F41.9 ; Paroxysmal atrial fibrillation I48.0 ; Chronic kidney disease, stage 4 (severe) N18.4 ; Chronic systolic heart failure I50.22 and Anemia associated with chronic renal failure D63.1 [facility] [id number] [place] [address] 94087- 1271 Sep, [facility] [id number] [place] [address] 75620- 8402 Aug, [facility] [id number] [place] [address] 41989- 8716 Aug, [facility] [address] [facility] [place] [place] [id number] Aug, Acute on chronic combined systolic and diastolic CHF (congestive heart failure) I50.43 ; Essential hypertension I10 ; CKD (chronic kidney disease) stage 4, GFR 15-29 ml/min N18.4 ; Paroxysmal atrial fibrillation I48.0 and Mild depression F32.0 [facility] [id number] [place] [address] 00910- 1484 Aug, [facility] [id number] [place] [address] 39897- 9377 Aug, [facility] [id number] [place] [address] 23503- 4065 Aug, Acute on chronic respiratory failure with hypoxia J96.21 ; Acute kidney failure, unspecified N17.9 ; Chronic kidney disease, stage 4 ( severe) N18.4 ; Acute on chronic combined systolic and diastolic CHF ( congestive heart failure) I50.43 ; Paroxysmal atrial fibrillation I48.0 and Cardiomyopathy, unspecified type I42.9 [facility] [id number] [place] [address] 24765- 6423 08 Aug, 2017 [facility] [id number] [place] [address] 57935- 0643 14 Jul, 2017 [facility] [id number] [place] [address] 87006- 5593 Jul, [facility] [id number] [place] [address] 50870- 5727 Jul, [facility] [id number] [place] [address] 28215- 7079 Jul, [facility] [id number] [place] [address] 27446- 9397 Jul, Community acquired pneumonia of right lower lobe of lung J18.1 ; CKD (chronic kidney disease) stage 4, GFR 15-29 ml/min N18.4 and Shortness of breath R06.02 [facility] [id number] [place] [address] [id number] Jul, 2017 [facility] [id number] [place] [address] 19145- 6981 Jun, Anxiety F41.9 [facility] [id number] [place] [address] 05149- 1251 13 Apr, 2017 Anxiety F41.9 [facility] [id number] [place] [address] 34532- 9970 10 Apr, 2017 Cough R05 and Pneumonia of right lower lobe due to infectious organism J18.1 [facility] [id number] [place] [address] 13266- 8597 Apr, [facility] [id number] [place] [address] 41674- 0390 06 Apr, 2017 Chronic kidney disease, stage IV (severe) N18.4 and COPD exacerbation J44.1 [facility] [id number] [place] [address] 06954- 7988 28 Feb, 2017 Chronic systolic heart failure I50.22 ; Essential hypertension I10 ; Anemia associated with chronic renal failure D63.1 and Chronic kidney disease, stage 4 (severe) N18.4 [facility] [id number] [place] [address] 46272- 2515 Feb, Anxiety F41.9 [facility] [address] 6[address]- [address]64 Feb, [facility] [id number] [place] [address] 11935- 8589 Feb, [facility] [address] 20853- 3323 Jan, Other fatigue R53.83 ; Otalgia of both ears H92.03 and Urinary urgency R39.15 [facility] [address] 47400- 8616 Jan, Acute non-recurrent maxillary sinusitis J01.00 ; Chronic systolic heart failure I50.22 ; Stage 3 chronic kidney disease N18.3 and Mild depression F32.0 [facility] [id number] [place] [address] 52102- 7542 Sep, [facility] [id number] [place] [address] 86141- 1936 Sep, [facility] [id number] [place] [address] 33398- 2934 Feb, [facility] [id number] [place] [address] 13330- 8223 Feb, [facility] [id number] [place] [address] 62863- 3677 Dec, [facility] [id number] [place] [address] 83757- 3795 Dec, [facility] [id number] [place] [address] 31537- 2288 Nov, [facility] [id number] [place] [address] 744085- 6506 Nov, [facility] [id number] [place] [address] 59774- 6313 Nov, [facility] [place] [facility] [address] [id number] [place] [address]- 7762 Nov, [facility] [place] [facility] [address] [id number] [place] [address]- 7703 October, [facility] [place] [facility] [address] [id number] [place] [address]- 0493 October, [facility] [place] [facility] [address] [id number] [place] [address]- 4310 Sep, [facility] [place] [facility] [address] [id number] [place] [address]- 9321 Sep, [facility] [place] [facility] [address] [id number] [place] [address]- 6297 Sep, [facility] [place] [facility] [address] [id number] [place] [address]- 0185 Sep, [facility] [place] [facility] [address] [id number] [place] [address]- 0843 Sep, [facility] [place] [facility] [address] [id number] [place] [address]- 6729 Aug, [facility] [place] [facility] [address] [id number] [place] [address]- 9259 Aug, [facility] [place] [facility] [address] [id number] [place] [address]- 8274 Aug, [facility] [place] [facility] [address] [id number], [place] [address] 8483 Aug, [facility] [place] [facility] [address] [id number] [place] [address]- 4723 Aug, [facility] [place] [facility] [address] [id number] [place] [address]- 2447 17 Aug, 2013 [facility] [place] [facility] [address] [id number] [place] [address]- 8523 Aug, [facility] [place] [facility] [address] [id number] [place] [address]- 2533 Aug, [facility] [place] [facility] [address] [id number] [place] [address]- 6846 Jul, [facility] [place] [facility] [address] [id number] [place] [address]- 1696 Jul, 2013 [facility] [place] [facility] [address] [id number] [place] [address]- 3096 Jul, [facility] [place] [facility] [address] [id number] [place] [address]- 8975 Jul, [facility] [place] [facility] [address] [id number] [place] [address]- 2296 Jul, [facility] [place] [facility] [address] [id number] [place] [address]- 1930 Jul, [facility] [place] [facility] [address] [id number] [place] [address]- 2149 Jun, [facility] [place] [facility] [address] [id number] [place] [address]- 5048 Jun, [facility] [place] [facility] [address] [id number] [place] [address]- 9467 Jun, [facility] [place] [facility] [address] [facility] [id number] [place] [address]- 8799 Jun, [facility] [place] [facility] [address] [id number] [place] [address]- 5144 Jun, [facility] [place] [facility] [address] [id number] [place] [address]- 2673 May, [facility] [place] [facility] [address] [id number] [place] [address]- 9726 May, [facility] [place] [facility] [address] [id number] [place] [address]- 2546 May, [facility] [place] [facility] [address] [id number] [place] [address]- 9216 May, [facility] [place] [facility] [address] [id number] [place] [address]- 6349 May, [facility] [place] [facility] [address] [id number] [place] [address]- 3957 Apr, [facility] [place] [facility] [address] [id number] [place] [address] 2542 Apr, [facility] [place] [facility] [address] [id number] [place] [address]- 4792 Mar, [facility] [place] [facility] [address] [id number] [place] [address]- 2541 Mar, [facility] [place] [facility] [address] [id number] [place] [address]- 5416 Mar, [facility] [place] [facility] [address] [id number] [place] [address] 2546 Mar, [facility] [place] [facility] [address] [id number] [place] [address]- 2793 Feb, [facility] [place] [facility] [address] [id number] [place] [address]- 6512 Jan, [facility] [place] [facility] [address] [id number], [place] [address]- 7856 Jan, [facility] [place] [facility] [address] [id number], [place] [address]- 2546 Aug, [facility] [place] [facility] [address] [id number], [place] [address] 2546 Jul, [facility] [place] [facility] [address] [id number] [place] [address]- 2546 Jun, [facility] [place] [facility] [address] [id number], [place] [address] 2546 May, [facility] [place] [facility] [address] [id number] [place] [address]- 2546 May, [facility] [place] [facility] [address] [id number] [place] [address]- 8665 May, [facility] [place] [facility] [address] [id number] [place] [address]- 1091 May, [facility] [place] [facility] [address] [id number] [place] [address]- 9239 Apr, [facility] [place] [facility] [address] [id number] [place] [address]- 5659 Apr, [facility] [place] [facility] [address] [id number] [place] [address]- 0397 Mar, [facility] [place] [facility] [address] [id number] [place] [address]- 6196 Mar, [facility] [place] [facility] [address] [id number] [place] [address]- 6991 Mar, [facility] [place] [facility] [address] [id number] [place] [address]- 5453 Mar, [facility] [place] [facility] [address] [id number] [place] [address]- 9915 Mar, [facility] [place] [facility] [address] [id number] [place] [address]- 6300 Mar, [facility] [place] [facility] [address] [facility] [id number] [place] [address]- 5421 Dec, [facility] [place] [facility] [address] [id number] [place] [address]- 6558 Dec, [facility] [place] [facility] [address] [id number] [place] [address]- 8219 Nov, [facility] [place] [facility] [address] [id number] [place] [address]- 1342 Nov, [facility] [place] [facility] [address] [facility] [id number] [place] [address]- 3930 October, [facility] [place] [facility] [address] [facility] [id number] [place] [address]- 2975 October, [facility] [address] [facility] [id number][place] [id number] 5189 Sep, [facility] [address] [facility] [id number], [place] [address]- 3457 Aug, [facility] [address] [facility] [id number], [place] [address]- 6531 Aug, [facility] [address] [facility] [id number], [place] [address]- 0870 Aug, IMMUNIZATIONS No Known Immunizations SOCIAL HISTORY Never Assessed REASON FOR VISIT f/u--Natasha Norris MA PLAN OF CARE Activity Details Follow Up 2 Months Reason: VITAL SIGNS Height 60 in 2017-05-12 Weight 184.6 lbs 2017-05-12 Heart Rate 96 bpm 2017-05-12 Respiratory Rate 22 2017-05-12 BMI 36.05 kg/m2 2017-05-12 Blood pressure systolic 120 mmHg 2017-05-12 Blood pressure diastolic 72 mmHg 2017-05-12 MEDICATIONS Medication Instructions Dosage Frequency Start Date End Date Duration Status D3-1000 1000 UNIT Orally Once a day 1 capsule 24h Active Carvedilol 12.5 MG Orally 2 times a day 12h Active Trazodone HCl 150 MG Orally at night as needed for sleep 1.5 tablets 30 days Active Levothyroxine Sodium 100 MCG Orally Once a day 1 tablet on an empty stomach in the morning 24h Active Breo Ellipta 200-25 MCG/INH Inhalation Once a day 1 puff 24h Active 28-0.8 MG Active Melatonin 3 MG Orally Once a day 1 tablet an hour before bedtime for sleep 24h Feb, 30 day(s) Active Gabapentin 300 MG Orally Once a day 1 capsule 24h Active Atorvastatin Calcium 20 MG Orally Once a day 1 tablet 24h Active Levaquin 500 mg Orally Once a day 1 tablet 24h Apr, Apr, 07 days Active Furosemide 20 MG Orally Once a day 1 tablet by Oral route 1 time per day PRN edema 24h Feb, Active Tessalon 200 mg Orally Three times a day 1 capsule 8h Apr,Apr 14 days Active Omeprazole 20 mg Orally 2 times a day 1 capsule 12h Feb, 30 day (s) Active Albuterol Sulfate (2.5 MG/3ML) 0.083% Inhalation every 6 hrs 3 ml every 4-6 hours as needed 6h 06 Apr, 2017 12 months Active PredniSONE 20 mg Orally Once a day 1 tablet 24h Apr, Apr, 07 days Active HydrALAZINE HCl 25 MG Orally 2 times a day 1 tablet with food 12h Active Trazodone HCl 150 MG Orally at night as needed for sleep 1.5 tablets 30 days Active Loratadine 10 MG Orally Once a day 1 tablet 24h Active Ferrous Sulfate 325 (65 Fe) MG Orally twice a day 1 tablet 12h Active HydrOXYzine HCl 10 MG Orally Three times a day 1 tablet 8h 30 days Active Isosorbide Mononitrate ER 30 MG Orally Once a day 2 tablets 24h Active Montelukast Sodium 10 MG Orally Once a day 1 tablet in the evening 24h Active Spiriva HandiHaler 18 MCG Inhalation Once a day 1 capsule 24h Active Magnesium Oxide 1 Tablet by Oral route 1 time per day Apr, Active RESULTS No Results PROCEDURES Procedure Date Ordered Result Body Site [facility] VISIT ESTABLISHED PATIENT May 12, 2017 INSTRUCTIONS MEDICATIONS ADMINISTERED No Known Medications MEDICAL (GENERAL) HISTORY Type Description Date Medical History hyperlipidemia Medical History htn Medical History kidney failure stage 4 - dx in 2012 Medical History hypothyroidisim Medical History neuropathy Medical History COPD - See's Dr Burnette in [facility] Surgical History 2 cesareans Surgical History defibrillator - 2012 Hospitalization History pneumonia for a week 2016 Hospitalization History Hospitalized at [facility]- CHF, Chest pain. Dismissed 07/11/17 07/10/2017 Hospitalization History [facility] pneumonia, hypoxia-[facility] 07/30/17
--- OUTSIDE RECORDS SUMMARY | 2018-03-06 23:21 | XMS REPORT ---
Author Author TEAGAN VERNON Organization [facility] Address [address] [place] [address] Care Team Providers Care Intervention Manager Name Role Phone TEAGAN VERNON Unavailable PROBLEMS Type Condition ICD9-CM Code RDR51-DI Code Onset Dates Condition Status SNOMED Code Problem Chronic systolic heart failure I50.22 Active 853576023 Problem Anemia associated with chronic renal failure D63.1 Active 738688407 Problem Mild depression F32.0 Active 290307196 Problem Essential hypertension I10 Active 24591668 Problem Chronic obstructive pulmonary disease with (acute) exacerbation J44.1 Active 152373629 Problem Chronic kidney disease, stage 4 (severe) N18.4 Active 866228395 Problem Acute on chronic combined systolic and diastolic CHF (congestive heart failure) I50.43 Active [id number] Problem Anxiety F41.9 Active 34229216 Problem Paroxysmal atrial fibrillation I48.0 Active 338263777 Problem Cardiomyopathy, unspecified type I42.9 Active 74063355 ALLERGIES No Information ENCOUNTERS Encounter Location Date Diagnosis [facility] [id number] [address] Dec, [facility] [id number] [place] [address]69- 3916 Nov, Acute on chronic combined systolic and diastolic CHF ( congestive heart failure) I50.43 [facility] [id number] [address] Nov, [facility] [id number] [place] [address]4445- [address]00 Nov, [facility] [id number] [place] [address] 86428- 7925 Nov, Chronic systolic heart failure I50.22 ; Paroxysmal atrial fibrillation I48.0 ; Chronic obstructive pulmonary disease with (acute) exacerbation J44.1 ; Chronic kidney disease, stage 4 (severe) N18.4 ; Pain in right hip M25.551 and Pain in left hip M25.552 [place] [id number] [place] [address] 16145- 9705 Nov, Chronic kidney disease, stage 4 (severe) N18.4 [facility] [id number] [place] [address] 65583- 7111 Nov, [facility] [id number] [place] [address] 08632- 3248 Nov, [place] [id number] [place] [address] 23139- 9499 October, Chronic obstructive pulmonary disease with (acute) exacerbation J44.1 [facility] [facility] [id number] [address] October, [facility] [facility] [id number] [place] [address] 88089- 1836 October, [facility] [id number] [place] [address] 38234- 4975 Sep, Chronic kidney disease, stage 4 (severe) N18.4 and Chronic kidney disease, stage IV (severe) N18.4 [place] [id number] [address] Sep, Chronic kidney disease, stage 4 (severe) N18.4 [place] [id number] [address] 99[address] Sep, Anxiety F41.9 ; Paroxysmal atrial fibrillation I48.0 ; Chronic kidney disease, stage 4 (severe) N18.4 ; Chronic systolic heart failure I50.22 and Anemia associated with chronic renal failure D63.1 [facility] [id number] [address] 9[address] Sep, [facility] [id number] [place] [address] 79289- 7082 Aug, [facility] [id number] [address] Aug, [facility] [address] [place] [id number] Aug, Acute on chronic combined systolic and diastolic CHF (congestive heart failure) I50.43 ; Essential hypertension I10 ; CKD (chronic kidney disease) stage 4, GFR 15-29 ml/min N18.4 ; Paroxysmal atrial fibrillation I48.0 and Mild depression F32.0 [facility] [id number] [address] Aug, [facility] [id number] [place] [address] 11856- 2037 Aug, [facility] [id number] [address] Aug, Acute on chronic respiratory failure with hypoxia J96.21 ; Acute kidney failure, unspecified N17.9 ; Chronic kidney disease, stage 4 ( severe) N18.4 ; Acute on chronic combined systolic and diastolic CHF ( congestive heart failure) I50.43 ; Paroxysmal atrial fibrillation I48.0 and Cardiomyopathy, unspecified type I42.9 [facility] [id number] [address] 6810 Aug, [facility] [id number] [address] 9515 Jul, [facility] [id number] [address]- 0544 Jul, [facility] [id number] [address] 6644 Jul, [facility] [id number] [place] [address] 08030- 4265 Jul, [facility] [id number] [address] 98[address] Jul, Community acquired pneumonia of right lower lobe of lung J18.1 ; CKD (chronic kidney disease) stage 4, GFR 15-29 ml/min N18.4 and Shortness of breath R06.02 [facility] [id number] [place] [id number] Jul, [address] [place] [id number] [place] [address] 26300- 4897 Jun, Anxiety F41.9 [place] [address] [address]- [address] Apr, Anxiety F41.9 [place] [address] 06[address]- 2635 Apr, Cough R05 and Pneumonia of right lower lobe due to infectious organism J18.1 [place] [address] [address]- 2182 Apr, [place] [address] [address]- 6461 Apr, Chronic kidney disease, stage IV (severe) N18.4 and COPD exacerbation J44.1 [place] [id number] [place] [address] 15475- 8153 Feb, Chronic systolic heart failure I50.22 ; Essential hypertension I10 ; Anemia associated with chronic renal failure D63.1 and Chronic kidney disease, stage 4 (severe) N18.4 [facility] [facility] [id number] [place] [address] 75382- 6524 Feb, Anxiety F41.9 [place] [id number] [place] [address] 93266- 7861 Feb, [place] [address] 6[address]24- 7163 Feb, [place] [id number] [place] [address] 93801- 9772 Jan, Other fatigue R53.83 ; Otalgia of both ears H92.03 and Urinary urgency R39.15 [place] [id number] [place] [address] 6[address] Jan, Acute non-recurrent maxillary sinusitis J01.00 ; Chronic systolic heart failure I50.22 ; Stage 3 chronic kidney disease N18.3 and Mild depression F32.0 [facility] [address] [facility] [id number] [place] [address]- 0150 Sep, [facility] [address] [facility] [id number] [place] [address]- 9051 Sep, [facility] [address] [facility] [id number] [place] [address]- 8455 Feb, [facility] [id number] [place] [address]- 3586 Feb, [facility] [id number] [place] [address]- 2374 Dec, [facility] [id number] [address]- 6603 Dec, [facility] [id number] [address]- 8917 Nov, [facility] [id number] [address]- 4998 Nov, [facility] [id number] [address]- 5202 Nov, [facility] [id number] [address]- 2142 Nov, [facility] [id number] [address]- 1708 October, [facility] [id number] [address]- 6428 October, [facility] [id number] [address] Sep, [facility] [id number] [address]- 5423 Sep, [facility] [place] [facility] [address] [id number] [place] [address]- 7087 Sep, [facility] [place] [facility] [address] [id number] [place] [address]- 5410 Sep, [facility] [place] [facility] [address] [id number] [place] [address]- 0780 Sep, [facility] [place] [facility] [address] [id number] [place] [address]- 5889 Aug, [facility] [place] [facility] [address] [id number] [place] [address]- 6303 Aug, [facility] [place] [facility] [address] [id number] [place] [address]- 4682 Aug, [facility] [place] [facility] [address] [id number] [place] [address]- 3777 Aug, [facility] [place] [facility] [address] [id number] [place] [address]- 2114 Aug, [facility] [place] [facility] [address] [id number] [place] [address]- 1326 Aug, [facility] [place] [facility] [address] [id number] [place] [address]- 6876 Aug, [facility] [place] [facility] [address] [id number] [place] [address]- 7130 Aug, [facility] [place] [facility] [address] [id number] [place] [address]- 3322 Jul, [facility] [place] [facility] [address] [id number] [place] [address]- 7657 Jul, [facility] [place] [facility] [address] [id number] [place] [address]326 Jul, [facility] [place] [facility] [address] [id number] [place] [address]- 9650 Jul, [facility] [place] [facility] [address] [id number] [place] [address]- 7798 Jul, [facility] [place] [facility] [address] [id number] [place] [address]- 2759 Jul, [facility] [place] [facility] [address] [id number] [place] [address]- 6998 Jun, [facility] [place] [facility] [address] [id number] [place] [address]- 7748 Jun, [facility] [place] [facility] [address] [id number] [place] [address]- 1649 Jun, [facility] [place] [facility] [address] [id number] [place] [address]- 0445 Jun, [facility] [place] [facility] [address] [id number] [place] [address]- 1642 Jun, [facility] [place] [facility] [address] [id number] [place] [address]- 6509 May, [facility] [place] [facility] [address] [id number] [place] [address]- 1404 May, [facility] [place] [facility] [address] [id number] [place] [address]- 5950 May, [facility] [place] [facility] [address] [id number] [place] [address]- 5822 May, [facility] [place] [facility] [address] [id number] [place] [address]- 9747 May, [facility] [place] [facility] [address] [id number] [place] [address]- 3724 Apr, [facility] [place] [facility] [address] [id number] [place] [address]- 6721 Apr, [facility] [place] [facility] [address] [id number] [place] [address]- 7737 Mar, [facility] [place] [facility] [address] [id number] [place] [address]- 6566 Mar, [facility] [place] [facility] [address] [id number] [place] [address]- 5839 Mar, [facility] [place] [facility] [address] [id number] [place] [address]- 6756 Mar, [facility] [place] [facility] [address] [id number] [place] [address]- 2068 Feb, [facility] [place] [facility] [address] [id number] [place] [address]- 9096 Jan, [facility] [place] [facility] [address] [id number] [place] [address]- 6953 Jan, [facility] [place] [facility] [address] [id number] [place] [address]- 6607 Aug, [facility] [place] [facility] [address] [id number] [place] [address]- 7072 Jul, [facility] [place] [facility] [address] [id number] [place] [address]- 5220 Jun, [facility] [place] [facility] [address] [id number] [place] [address]- 2220 May, [facility] [place] [facility] [address] [id number] [place] [address]- 9681 May, [facility] [place] [facility] [address] [id number] [place] [address]- 1051 May, [facility] [place] [facility] [address] [id number] [place] [address]- 6305 May, [facility] [place] [facility] [address] [id number] [place] [address]- 0808 Apr, [facility] [place] [facility] [address] [id number] [place] [address]- 3908 Apr, [facility] [place] [facility] [address] [id number] [place] [address]- 8802 Mar, [facility] [place] [facility] [address] [address]- 7356 Mar, [facility] [address] [facility] [id number] [address]- 1134 Mar, [facility] [address] [facility] [id number] [address]- 6006 Mar, [facility] [id number] [address]- 9729 Mar, [facility] [address] [facility] [id number] [address]- 2785 Mar, [facility] [id number] [address]- 0713 Dec, [facility] [id number] [address]- 8116 Dec, [facility] [id number] [address]- 9734 Nov, [facility] [id number] [address]- 1920 Nov, [facility] [id number] [address]- 4546 October, [facility] [id number] [address]- 4306 October, [facility] [id number] [address]- 7983 Sep, [facility] [id number] [address]- 1347 Aug, [facility] [id number] [address]- 6496 Aug, [facility] [id number] [address]- 0276 Aug, IMMUNIZATIONS No Known Immunizations SOCIAL HISTORY Never Assessed REASON FOR VISIT [facility] PLAN OF CARE VITAL SIGNS MEDICATIONS Unknown [...] a week 2016 Hospitalization History Hospitalized at [facility]- CHF, Chest pain. Dismissed 07/11/17 07/10/2017 Hospitalization History [facility] pneumonia, hypoxia-[facility] 07/30/17 Hospitalization History [facility]- RLL PNA, Respiratory Failure. Transfered to [facility] 10/25/2017 Hospitalization History CHF/COPD 11/2017
--- OUTSIDE RECORDS SUMMARY | 2018-03-06 23:22 | XMS REPORT ---
Author Author TEAGAN VERNON [facility] Address [address] [place] [address] Care Team Providers Care Faculty I On Call Medical Assistant Name Role Phone TEAGAN VERNON Unavailable PROBLEMS Type Condition ICD9-CM Code [id number] Code Onset Dates Condition Status SNOMED Code Problem Chronic systolic heart failure I50.22 Active 106658568 Problem Anemia associated with chronic renal failure D63.1 Active 285618314 Problem Mild depression F32.0 Active 516478985 Problem Essential hypertension I10 Active 90942939 Problem Chronic obstructive pulmonary disease with (acute) exacerbation J44.1 Active 810622473 Problem Chronic kidney disease, stage 4 (severe) N18.4 Active 296047858 Problem Acute on chronic combined systolic and diastolic CHF (congestive heart failure) I50.43 Active 205614980435572 Problem Anxiety F41.9 Active 00707270 Problem Paroxysmal atrial fibrillation I48.0 Active 578978654 Problem Cardiomyopathy, unspecified type I42.9 Active 11097037 ALLERGIES No Information ENCOUNTERS Encounter Location Date Diagnosis [facility] [address] [address] Dec, [facility] [id number] [place] [address] 44380- 3315 Dec, [facility] [id number] [place] [address] 36040- 2632 Nov, Acute on chronic combined systolic and diastolic CHF ( congestive heart failure) I50.43 [facility] [id number] [place] [address] 35271- 1298 Nov, [facility] [id number] [place] [address] 72472- 4176 Nov, [facility] [id number] [place] [address] 80331- 0679 Nov, Chronic systolic heart failure I50.22 ; Paroxysmal atrial fibrillation I48.0 ; Chronic obstructive pulmonary disease with (acute) exacerbation J44.1 ; Chronic kidney disease, stage 4 (severe) N18.4 ; Pain in right hip M25.551 and Pain in left hip M25.552 [facility] [address], [place] [address] Nov, Chronic kidney disease, stage 4 (severe) N18.4 [facility] [address], [place] [address] Nov, [facility] [id number] [place] [address] 57129- 2533 Nov, [facility] [id number] [place] [address] 07234- 7165 October, Chronic obstructive pulmonary disease with (acute) exacerbation J44.1 [facility] [address], [place] [address] October, [facility] [id number] [place] [address] 81577- 2404 October, [facility] [id number] [address] Sep, Chronic kidney disease, stage 4 (severe) N18.4 and Chronic kidney disease, stage IV (severe) N18.4 [facility] [address] [address] Sep, Chronic kidney disease, stage 4 (severe) N18.4 [facility] [address] [address] Sep, Anxiety F41.9 ; Paroxysmal atrial fibrillation I48.0 ; Chronic kidney disease, stage 4 (severe) N18.4 ; Chronic systolic heart failure I50.22 and Anemia associated with chronic renal failure D63.1 [facility] [id number] [place] [address] 92498- 7384 Sep, [facility] [address], [place] [address] Aug, [facility] [id number] [place] [address] 38578- 2296 Aug, [facility] [address] [place] [id number] Aug, Acute on chronic combined systolic and diastolic CHF (congestive heart failure) I50.43 ; Essential hypertension I10 ; CKD (chronic kidney disease) stage 4, GFR 15-29 ml/min N18.4 ; Paroxysmal atrial fibrillation I48.0 and Mild depression F32.0 [facility] [id number] [place] [address] 83445- 1199 Aug, [facility] [id number] [place] [address] 70578- 0522 Aug, [facility] [id number] [place] [address] 63002- 5926 Aug, Acute on chronic respiratory failure with hypoxia J96.21 ; Acute kidney failure, unspecified N17.9 ; Chronic kidney disease, stage 4 ( severe) N18.4 ; Acute on chronic combined systolic and diastolic CHF ( congestive heart failure) I50.43 ; Paroxysmal atrial fibrillation I48.0 and Cardiomyopathy, unspecified type I42.9 [facility] [address], [place] [address] 266[address] Aug, [facility] [id number] [place] [address] 10513- 6956 Jul, [facility] [address], [place] [address] 8[address] Jul, [facility] [id number] [place] [address] 16188- 3485 Jul, [facility] [address], [place] [address] 7[address] Jul, [facility] [id number] [place] [address] 24409- 5726 06 Jul, 2017 Community acquired pneumonia of right lower lobe of lung J18.1 ; CKD (chronic kidney disease) stage 4, GFR 15-29 ml/min N18.4 and Shortness of breath R06.02 [facility] [id number] [place] [address] [id number] 05 Jul, 2017 [facility] [address] [address] Jun, Anxiety F41.9 [place] [address] [address]- 6784 Apr, Anxiety F41.9 [place] [address] 81417- 4837 Apr, Cough R05 and Pneumonia of right lower lobe due to infectious organism J18.[address] [address]- 6663 Apr, [place] [id number] [place] [address] 15633- 9730 Apr, Chronic kidney disease, stage IV (severe) N18.4 and COPD exacerbation J44.1 [place] [id number] [place] [address] 74729- 4174 Feb, Chronic systolic heart failure I50.22 ; Essential hypertension I10 ; Anemia associated with chronic renal failure D63.1 and Chronic kidney disease, stage 4 (severe) N18.4 [facility] [id number] [place] [address] 30191- 2515 Feb, Anxiety F41.9 [place] [address] 02451- 0150 Feb, [place] [id number] [place] [address] 64832- 7977 Feb, [place] [address] 42696- 8851 Jan, Other fatigue R53.83 ; Otalgia of both ears H92.03 and Urinary urgency R39.15 [facility] [id number] [place] [address] 73614- 8080 Jan, Acute non-recurrent maxillary sinusitis J01.00 ; Chronic systolic heart failure I50.22 ; Stage 3 chronic kidney disease N18.3 and Mild depression F32.0 [facility] [id number] [place] [address] 11161- 3259 Sep, [facility] [id number] [place] [address] 70167- 9302 Sep, [facility] [id number] [place] [address] 58475- 1681 Feb, [facility] [id number] [place] [address] 16078- 7741 Feb, [facility] [id number] [place] [address] 44440- 1815 Dec, [facility] [id number] [place] [address] 45967- 4892 Dec, [facility] [id number] [place] [address] 25063- 4155 Nov, [facility] [id number] [place] [address] 05598- 4983 Nov, [facility] [id number] [place] [address] 92712- 8932 Nov, [facility] [id number] [place] [address] 43513- 7166 Nov, [facility] [id number] [place] [address] 60436- 9307 October, [facility] [id number] [place] [address] 879420- 9262 October, [facility] [id number] [place] [address] 43716- 1104 Sep, [facility] [place] [facility] [address] [id number] [place] [address]- 9014 Sep, [facility] [place] [facility] [address] [id number] [place] [address]- 4355 Sep, [facility] [place] [facility] [address] [id number] [place] [address]- 7689 Sep, [facility] [place] [facility] [address] [id number] [place] [address]- 4655 Sep, [facility] [place] [facility] [address] [id number] [place] [address]- 3903 Aug, [facility] [place] [facility] [address] [id number] [place] [address]- 4724 Aug, [facility] [place] [facility] [address] [id number] [place] [address]- 8956 Aug, [facility] [place] [facility] [address] [id number] [place] [address]- 7438 Aug, [facility] [place] [facility] [address] [id number] [place] [address]- 1059 Aug, [facility] [place] [facility] [address] [id number] [place] [address]- 4830 Aug, [facility] [place] [facility] [address] [id number] [place] [address]- 5075 Aug, [facility] [place] [facility] [address] [id number] [place] [address]- 2923 Aug, [facility] [place] [facility] [address] [id number] [place] [address]- 7358 Jul, [facility] [place] [facility] [address] [id number] [place] [address]- 0783 Jul, [facility] [place] [facility] [address] [id number] [place] [address]- 4192 Jul, [facility] [place] [facility] [address] [id number] [place] [address]- 6390 05 Jul, 2013 [facility] [place] [facility] [address] [id number] [place] [address]- 3461 Jul, [facility] [place] [facility] [address] [id number] [place] [address]- 4522 Jul, [facility] [place] [facility] [address] [id number] [place] [address]- 7021 Jun, [facility] [place] [facility] [address] [id number] [place] [address]- 0989 Jun, [facility] [place] [facility] [address] [id number] [place] [address]- 0868 Jun, [facility] [place] [facility] [address] [id number] [place] [address]- 1931 Jun, [facility] [place] [facility] [address] [id number] [place] [address]- 8048 Jun, [facility] [place] [facility] [address] [id number] [place] [address]- 8262 May, [facility] [place] [facility] [address] [id number] [place] [address]- 6230 May, [facility] [place] [facility] [address] [id number] [place] [address]- 3585 May, [facility] [place] [facility] [address] [id number] [place] [address]- 0424 May, [facility] [place] [facility] [address] [id number] [place] [address]- 6675 May, [facility] [place] [facility] [address] [id number] [place] [address]- 0694 Apr, [facility] [place] [facility] [address] [id number] [place] [address]- 3422 Apr, [facility] [place] [facility] [address] [id number] [place] [address]- 4426 Mar, [facility] [place] [facility] [address] [id number] [place] [address]- 6942 Mar, [facility] [place] [facility] [address] [id number] [place] [address]- 4914 Mar, [facility] [place] [facility] [address] [id number] [place] [address]- 7338 Mar, [facility] [place] [facility] [address] [id number] [place] [address]- 7821 Feb, [facility] [place] [facility] [address] [id number] [place] [address]- 0980 Jan, [facility] [place] [facility] [address] [id number] [place] [address]- 6221 Jan, [facility] [place] [facility] [address] [id number] [place] [address]- 3924 Aug, [facility] [place] [facility] [address] [id number] [place] [address]- 4211 Jul, [facility] [place] [facility] [address] [id number] [place] 8138 Jun, [facility] [place] [facility] [address] [id number] [place] [address]- 2721 May, [facility] [place] [facility] [address] [id number], [place] [address]- 9894 May, [facility] [place] [facility] [address] [id number] [place] [address]- 0422 May, [facility] [place] [facility] [address] [id number] [place] [address]- 8096 May, [facility] [place] [facility] [address] [id number] [place] [address]- 7098 Apr, [facility] [place] [facility] [address] [id number] [place] [address]- 4847 Apr, [facility] [place] [facility] [address] [id number] [place] [address]- 2886 Mar, [facility] [address] [id number] [place] [address]- 4276 Mar, [facility] [address] [id number] [place] [address] 2546 Mar, [facility] [address] [id number] [place] [address]- 4826 Mar, [facility] [address] [id number] [place] [address] 2541 Mar, [facility] [address] [id number] [place] [address]- 7878 Mar, [facility] [address] [id number] [place] [address]- 2546 Dec, [facility] [address] [facility] [id number] [place] [address]- 0083 Dec, [facility] [address] [id number] [place] [address]- 2593 Nov, [facility] [address] [facility] [id number] [place] [address]- 6566 Nov, [facility] [address] [facility] [id number] [place] [address]- 3156 October, [facility] [address] [facility] [id number] [place] [address]- 2546 October, [facility] [address] [id number] [place] [address]- 2546 Sep, [facility] [address] [id number] [place] [address]- 2546 Aug, [facility] [address] [facility] [id number] [place] [address]- 2546 Aug, [facility] [address] [facility] [id number] [place] [address]- 2546 Aug, IMMUNIZATIONS No Known Immunizations SOCIAL HISTORY Never Assessed REASON FOR VISIT OMEPRAZOLE note PLAN OF CARE VITAL SIGNS MEDICATIONS Medication Instructions Dosage Frequency Start Date End Date Duration Status Omeprazole 40 MG Orally Once a day 1 capsule 24h Jul, 30 day(s ) Active RESULTS No Results PROCEDURES No Known procedures INSTRUCTIONS MEDICATIONS ADMINISTERED No Known Medications MEDICAL (GENERAL) HISTORY Type Description Date Medical History hyperlipidemia Medical History htn Medical History kidney failure stage 4 - dx in 2012 Medical History hypothyroidisim Medical History neuropathy Medical History COPD - See's Dr Burnette in [facility] Medical History Chronic Heart Failure Surgical History 2 cesareans Surgical History defibrillator - 2012 Hospitalization History pneumonia for a week 2017 Hospitalization History Hospitalized at [facility]- CHF, Chest pain. Dismissed 07/11/17 07/10/2017 Hospitalization History [facility] pneumonia, hypoxia-[facility] 07/30/17 Hospitalization History [facility]- R[facility] PNA, Respiratory Failure. Transfered to [place] 10/25/2017 Hospitalization History CHF/COPD 11/2017
--- OUTSIDE RECORDS SUMMARY | 2018-03-06 23:22 | XMS REPORT ---
Author Author TEAGAN VERNON [facility] Address [address] [place] [address] Care Team Providers Care [employer]ker [employer] Name Role Phone TEAGAN VERNON Unavailable PROBLEMS Type Condition ICD9-CM Code VBT84-[place] Code Onset Dates Condition Status SNOMED Code Problem Chronic systolic heart failure I50.22 Active 646419840 Problem Anemia associated with chronic renal failure D63.1 Active 052460717 Problem Mild depression F32.0 Active 077844180 Problem Essential hypertension I10 Active 47768767 Problem Chronic obstructive pulmonary disease with (acute) exacerbation J44.1 Active 767440945 Problem Chronic kidney disease, stage 4 (severe) N18.4 Active 617325800 Problem Acute on chronic combined systolic and diastolic CHF (congestive heart failure) I50.43 Active [id number] Problem Anxiety F41.9 Active 54624346 Problem Paroxysmal atrial fibrillation I48.0 Active 998152891 Problem Cardiomyopathy, unspecified type I42.9 Active 72672644 ALLERGIES No Information ENCOUNTERS Encounter Location Date Diagnosis [facility] [id number] [address] Dec, [facility] [id number] [place] [address] 50815- 7683 Dec, [facility] [id number] [place] [address] 32257- 2396 Nov, Acute on chronic combined systolic and diastolic CHF ( congestive heart failure) I50.43 [facility] [id number] [place] [address] 48709- 0949 Nov, [facility] [id number] [place] [address] 68476- 7096 Nov, [facility] [id number] [place] [address] 39997- 1344 Nov, Chronic systolic heart failure I50.22 ; Paroxysmal atrial fibrillation I48.0 ; Chronic obstructive pulmonary disease with (acute) exacerbation J44.1 ; Chronic kidney disease, stage 4 (severe) N18.4 ; Pain in right hip M25.551 and Pain in left hip M25.552 [facility] [address] [address] Nov, Chronic kidney disease, stage 4 (severe) N18.4 [facility] [address] [address] Nov, [facility] [id number] [place] [address] 72350- 9714 Nov, [facility] [id number] [place] [address] 73066- 1900 October, Chronic obstructive pulmonary disease with (acute) exacerbation J44.1 [facility] [address] [address] October, [facility] [id number] [place] [address] 83768- 6591 October, [facility] [id number] [address] Sep, Chronic kidney disease, stage 4 (severe) N18.4 and Chronic kidney disease, stage IV (severe) N18.4 [facility] [address] [address] Sep, Chronic kidney disease, stage 4 (severe) N18.4 [facility] [address] [address] 79[address] Sep, Anxiety F41.9 ; Paroxysmal atrial fibrillation I48.0 ; Chronic kidney disease, stage 4 (severe) N18.4 ; Chronic systolic heart failure I50.22 and Anemia associated with chronic renal failure D63.1 [facility] [address] [place] [address] 66945- 7590 Sep, [facility] [address] [address] 0418 Aug, [facility] [id number] [place] [address] 33679- 1577 Aug, [facility] [address] [place] [id number] Aug, Acute on chronic combined systolic and diastolic CHF (congestive heart failure) I50.43 ; Essential hypertension I10 ; CKD (chronic kidney disease) stage 4, GFR 15-29 ml/min N18.4 ; Paroxysmal atrial fibrillation I48.0 and Mild depression F32.0 [facility] [id number] [place] [address] 12180- 6611 Aug, [facility] [id number] [place] [address] 68332- 6451 Aug, [facility] [id number] [place] [address] 52154- 1436 Aug, Acute on chronic respiratory failure with hypoxia J96.21 ; Acute kidney failure, unspecified N17.9 ; Chronic kidney disease, stage 4 ( severe) N18.4 ; Acute on chronic combined systolic and diastolic CHF ( congestive heart failure) I50.43 ; Paroxysmal atrial fibrillation I48.0 and Cardiomyopathy, unspecified type I42.9 [facility] [address] [address] 7023 Aug, [facility] [id number] [place] [address] 29195- 3610 Jul, [facility] [address] [address] 8288 Jul, [facility] [id number] [place] [address] 23893- 1504 Jul, [facility] [address] [address] 9459 Jul, [facility] [id number] [place] [address] 54183- 5047 06 Jul, 2017 Community acquired pneumonia of right lower lobe of lung J18.1 ; CKD (chronic kidney disease) stage 4, GFR 15-29 ml/min N18.4 and Shortness of breath R06.02 [facility] [id number] [place] [address] [id number] 05 Jul, 2017 [facility] [address] [address] Jun, Anxiety F41.9 [place] [address] [address]- [address]80 Apr, Anxiety F41.9 [place] [address] [address]61- 5379 Apr, Cough R05 and Pneumonia of right lower lobe due to infectious organism J18.[address] 8[address]93- 1769 Apr, [place] [id number] [place] [address] 16022- 4709 Apr, Chronic kidney disease, stage IV (severe) N18.4 and COPD exacerbation J44.1 [place] [id number] [place] [address] 06608- 0134 Feb, Chronic systolic heart failure I50.22 ; Essential hypertension I10 ; Anemia associated with chronic renal failure D63.1 and Chronic kidney disease, stage 4 (severe) N18.4 [facility] [id number] [place] [address] 59048- 2298 Feb, Anxiety F41.9 [place] [address] 94307- 7922 Feb, [place] [id number] [place] [address] 57894- 8181 Feb, [place] [address] [address]61- 3424 Jan, Other fatigue R53.83 ; Otalgia of both ears H92.03 and Urinary urgency R39.15 [facility] [id number] [place] [address] 07847- 4858 Jan, Acute non-recurrent maxillary sinusitis J01.00 ; Chronic systolic heart failure I50.22 ; Stage 3 chronic kidney disease N18.3 and Mild depression F32.0 [facility] [id number] [place] [address] 13823- 8479 Sep, [facility] [id number] [place] [address] 12079- 0654 Sep, [facility] [id number] [place] [address] 57817- 4456 Feb, [facility] [id number] [place] [address] 86288- 1011 Feb, [facility] [id number] [place] [address] 54872- 5272 Dec, [facility] [id number] [place] [address] 39901- 7835 Dec, [facility] [id number] [place] [address] 23603- 5072 Nov, [facility] [id number] [place] [address] 07654- 6042 Nov, [facility] [id number] [place] [address] 37257- 6805 Nov, [facility] [id number] [place] [address] 42327- 0600 Nov, [facility] [id number] [place] [address] 42893- 9747 October, [facility] [id number] [place] [address] 086005- 4538 October, [facility] [id number] [place] [address] 04697- 5329 Sep, [facility] [place] [facility] [address] [id number] [place] [address]- 1872 Sep, [facility] [place] [facility] [address] [id number] [place] [address]- 7116 Sep, [facility] [place] [facility] [address] [id number] [place] [address]- 1151 Sep, [facility] [place] [facility] [address] [id number] [place] [address]- 6136 Sep, [facility] [place] [facility] [address] [id number] [place] [address]- 9418 Aug, [facility] [place] [facility] [address] [id number] [place] [address]- 7363 Aug, [facility] [place] [facility] [address] [id number] [place] [address]- 8308 Aug, [facility] [place] [facility] [address] [id number] [place] [address]- 4378 Aug, [facility] [place] [facility] [address] [id number] [place] [address]- 1337 Aug, [facility] [place] [facility] [address] [id number] [place] [address]- 9472 Aug, [facility] [place] [facility] [address] [id number] [place] [address]- 9777 Aug, [facility] [place] [facility] [address] [id number] [place] [address]- 9758 Aug, [facility] [place] [facility] [address] [id number] [place] [address]- 9852 Jul, [facility] [place] [facility] [address] [id number] [place] [address]- 1049 Jul, [facility] [place] [facility] [address] [id number] [place] [address]- 5120 Jul, [facility] [place] [facility] [address] [id number] [place] [address]- 8671 05 Jul, 2013 [facility] [place] [facility] [address] [id number] [place] [address]- 7602 Jul, [facility] [place] [facility] [address] [id number] [place] [address]- 8839 Jul, [facility] [place] [facility] [address] [id number] [place] [address]- 6743 Jun, [facility] [place] [facility] [address] [id number] [place] [address]- 5072 Jun, [facility] [place] [facility] [address] [id number] [place] [address]- 4908 Jun, [facility] [place] [facility] [address] [id number] [place] [address]- 0274 Jun, [facility] [place] [facility] [address] [id number] [place] [address]- 0995 Jun, [facility] [place] [facility] [address] [id number] [place] [address]- 1443 May, [facility] [place] [facility] [address] [id number] [place] [address]- 0118 May, [facility] [place] [facility] [address] [id number] [place] [address]- 5612 May, [facility] [place] [facility] [address] [id number] [place] [address]- 2142 May, [facility] [place] [facility] [address] [id number] [place] [address]- 7463 May, [facility] [place] [facility] [address] [id number] [place] [address]- 9536 Apr, [facility] [place] [facility] [address] [id number] [place] [address]- 0751 Apr, [facility] [place] [facility] [address] [id number] [place] [address]- 0936 Mar, [facility] [place] [facility] [address] [id number] [place] [address]- 3585 Mar, [facility] [place] [facility] [address] [id number] [place] [address]- 5155 Mar, [facility] [place] [facility] [address] [id number] [place] [address]- 1370 Mar, [facility] [place] [facility] [address] [id number] [place] [address]- 3210 Feb, [facility] [place] [facility] [address] [id number] [place] [address]- 7214 Jan, [facility] [place] [facility] [address] [id number] [place] [address]- 0373 Jan, [facility] [place] [facility] [address] [id number] [place] [address]- 4553 Aug, [facility] [place] [facility] [address] [id number] [place] [address]- 4869 Jul, [facility] [place] [facility] [address] [id number] [place] [address]591 Jun, [facility] [place] [facility] [address] [id number] [place] [address]- 3817 May, [facility] [place] [facility] [address] [id number] [address]- 2558 May, [facility] [place] [facility] [address] [id number] [place] [address]- 0437 May, [facility] [place] [facility] [address] [id number] [place] [address]- 2931 May, [facility] [place] [facility] [address] [id number] [place] [address]- 2188 Apr, [facility] [place] [facility] [address] [id number] [place] [address]- 9222 Apr, [facility] [place] [facility] [address] [id number] [place] [address]- 9566 Mar, [facility] [address] [id number] [place] [address]- 0009 Mar, [facility] [address] [id number] [place] [address] 2546 Mar, [facility] [address] [id number] [place] [address]- 2656 Mar, [facility] [address] [id number] [place] [address] 254 Mar, [facility] [address] [id number] [place] [address]- 5084 Mar, [facility] [address] [id number] [place] [address]- 2546 Dec, [facility] [address] [id number] [place] [address]- 3604 Dec, [facility] [address] [id number] [place] [address]- 5098 Nov, [facility] [address] [id number] [place] [address]- 6626 Nov, [facility] [address] [id number] [place] [address]- 7946 October, [facility] [address] [id number] [place] [address]- 2546 October, [facility] [address] [id number] [place] [address]- 2546 Sep, [facility] [address] [id number] [place] [address]- 2546 Aug, [facility] [address] [id number] [place] [address]- 2546 Aug, [facility] [address] [id number] [place] [address]- 2546 Aug, IMMUNIZATIONS No Known Immunizations SOCIAL HISTORY Never Assessed REASON FOR VISIT PLAN OF CARE VITAL SIGNS MEDICATIONS Unknown Medications RESULTS No Results PROCEDURES No Known procedures INSTRUCTIONS MEDICATIONS ADMINISTERED No Known Medications MEDICAL (GENERAL) HISTORY Type Description Date Medical History hyperlipidemia Medical History htn Medical History kidney failure stage 4 - dx in 2012 Medical History hypothyroidisim Medical History neuropathy Medical History COPD - See's Dr Burnette in [facility] Medical History Chronic Heart Failure Surgical History 2 cesareans Surgical History defibrillator - 2012 Hospitalization History pneumonia for a week 2016 Hospitalization History Hospitalized at [facility]- CHF, Chest pain. Dismissed 07/11/17 07/10/2017 Hospitalization History RLL pneumonia, hypoxia-[facility] 07/30/17 Hospitalization History [facility]- RLL PNA, Respiratory Failure. Transfered to [facility] 10/25/2017 Hospitalization History CHF/COPD 11/2017
--- OUTSIDE RECORDS SUMMARY | 2018-03-06 23:22 | XMS REPORT ---
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 President Business & Corporate Development Name Role Phone EDIS MORGAN Unavailable PROBLEMS Type Condition ICD9-CM Code TKL27-SQ Code Onset Dates Condition Status SNOMED Code Problem Chronic systolic heart failure I50.22 Active 119427307 Problem Anemia associated with chronic renal failure D63.1 Active 896749933 Problem Mild depression F32.0 Active 350941533 Problem Essential hypertension I10 Active 55144326 Problem Chronic obstructive pulmonary disease with (acute) exacerbation J44.1 Active 524849352 Problem Chronic kidney disease, stage 4 (severe) N18.4 Active 222751838 Problem Acute on chronic combined systolic and diastolic CHF (congestive heart failure) I50.43 Active [id number] Problem Anxiety F41.9 Active 98401498 Problem Paroxysmal atrial fibrillation I48.0 Active 149307834 Problem Cardiomyopathy, unspecified type I42.9 Active 79145678 ALLERGIES No Information ENCOUNTERS Encounter Location Date Diagnosis [facility] [id number] [address] Dec, [facility] [id number] [place] [address]76- [address]27 Nov, [facility] [id number] [place] [address]452- 4822 Nov, Chronic systolic heart failure I50.22 ; Paroxysmal atrial fibrillation I48.0 ; Chronic obstructive pulmonary disease with (acute) exacerbation J44.1 ; Chronic kidney disease, stage 4 (severe) N18.4 ; Pain in right hip M25.551 and Pain in left hip M25.552 [facility] [id number] [place] [address]- 3632 Nov, Chronic kidney disease, stage 4 (severe) N18.4 [facility] [id number], [place] [address] Nov, [facility] [id number], [place] [address] Nov, [facility] [id number] [address] October, Chronic obstructive pulmonary disease with (acute) exacerbation J44.1 [facility] [id number], [place] [address] October, [facility] [id number] [place] [address]- 9662 October, [facility] [id number], [place] [address] Sep, Chronic kidney disease, stage 4 (severe) N18.4 and Chronic kidney disease, stage IV (severe) N18.4 [facility] [id number], [place] [address] Sep, Chronic kidney disease, stage 4 (severe) N18.4 [facility] [id number], [place] [address] Sep, Anxiety F41.9 ; Paroxysmal atrial fibrillation I48.0 ; Chronic kidney disease, stage 4 (severe) N18.4 ; Chronic systolic heart failure I50.22 and Anemia associated with chronic renal failure D63.1 [facility] [id number], [place] [address] Sep, [facility] [id number], [place] [address] Aug, [facility] [id number], [place] [address] Aug, [facility] [address] [place] [id number] Aug, Acute on chronic combined systolic and diastolic CHF (congestive heart failure) I50.43 ; Essential hypertension I10 ; CKD (chronic kidney disease) stage 4, GFR 15-29 ml/min N18.4 ; Paroxysmal atrial fibrillation I48.0 and Mild depression F32.0 [facility] [id number] [place] [address]369- 2135 26 Aug, 2017 [facility] [id number] [place] [address] 95422- 6363 Aug, [facility] [id number] [place] [address] 00889- 7947 Aug, Acute on chronic respiratory failure with hypoxia J96.21 ; Acute kidney failure, unspecified N17.9 ; Chronic kidney disease, stage 4 ( severe) N18.4 ; Acute on chronic combined systolic and diastolic CHF ( congestive heart failure) I50.43 ; Paroxysmal atrial fibrillation I48.0 and Cardiomyopathy, unspecified type I42.9 [facility] [id number] [place] [address] 69289- 2091 Aug, [facility] [id number] [place] [address] 25223- 3337 14 Jul, 2017 [facility] [id number] [place] [address] 96113- 5305 Jul, [facility] [id number] [place] [address] 71258- 7627 08 Jul, 2017 [facility] [id number] [place] [address] 65018- 7971 Jul, [facility] [id number] [place] [address] 56251- 2076 06 Jul, 2017 Community acquired pneumonia of right lower lobe of lung J18.1 ; CKD (chronic kidney disease) stage 4, GFR 15-29 ml/min N18.4 and Shortness of breath R06.02 [facility] [id number] [place] [address] [id number] 05 Jul, 2017 [facility] [id number] [place] [address] 22227- 1553 Jun, Anxiety F41.9 [facility] [id number] [place] [address] 47528- 5127 Apr, Anxiety F41.9 [facility] [address] [address]- 1008 10 Apr, 2017 Cough R05 and Pneumonia of right lower lobe due to infectious organism J18.1 [facility] [address] [address]- 9737 07 Apr, 2017 [place] [address] [address]- 8143 Apr, Chronic kidney disease, stage IV (severe) N18.4 and COPD exacerbation J44.1 [facility] [address] [address]- [address] Feb, Chronic systolic heart failure I50.22 ; Essential hypertension I10 ; Anemia associated with chronic renal failure D63.1 and Chronic kidney disease, stage 4 (severe) N18.4 [facility] [id number] [place] [address] 60707- 3700 Feb, Anxiety F41.9 [facility] [address] [address]- 3973 Feb, [facility] [address] [address]32- 7047 Feb, [facility] [address] [address]- 80[address] Jan, Other fatigue R53.83 ; Otalgia of both ears H92.03 and Urinary urgency R39.[address] [address] Jan, Acute non-recurrent maxillary sinusitis J01.00 ; Chronic systolic heart failure I50.22 ; Stage 3 chronic kidney disease N18.3 and Mild depression F32.[address] [place] [address]- 3140 14 Sep, 2014 [facility] [place] [facility] [address] [id number] [place] [address]- 9889 13 Sep, 2014 [facility] [place] [facility] [address] [id number] [place] [address]- 8530 Feb, [facility] [place] [facility] [address] [id number] [place] [address]- 9119 Feb, [facility] [place] [facility] [address] [id number] [place] [address]- 6999 Dec, [facility] [place] [facility] [address] [id number] [place] [address]- 9293 Dec, [facility] [place] [facility] [address] [id number] [place] [address]- 7212 Nov, [facility] [place] [facility] [address] [id number] [place] [address]- 1162 Nov, [facility] [place] [facility] [address] [id number] [place] [address]- 6231 Nov, [facility] [place] [facility] [address] [id number] [place] [address]- 9037 Nov, [facility] [place] [facility] [address] [id number] [place] [address]- 8342 October, [facility] [place] [facility] [address] [id number] [place] [address]- 3315 October, [facility] [place] [facility] [address] [id number] [place] [address]- 9020 Sep, [facility] [place] [facility] [address] [id number] [place] [address]- 9798 Sep, [facility] [place] [facility] [address] [id number] [place] [address]- 4317 Sep, [facility] [place] [facility] [address] [id number] [place] [address]- 5193 Sep, [facility] [place] [facility] [address] [id number] [place] [address]- 8996 Sep, [facility] [place] [facility] [address] [id number] [place] [address]- 0286 Aug, [facility] [place] [facility] [address] [id number] [place] [address]- 3674 Aug, [facility] [place] [facility] [address] [id number] [place] [address]- 8808 Aug, [facility] [place] [facility] [address] [id number] [place] [address]- 1743 Aug, [facility] [place] [facility] [address] [id number] [place] [address]- 7923 Aug, [facility] [place] [facility] [address] [id number] [place] [address]- 3164 Aug, [facility] [place] [facility] [address] [id number] [place] [address]- 1502 Aug, [facility] [place] [facility] [address] [id number] [place] [address]- 8425 Aug, [facility] [place] [facility] [address] [id number] [place] [address]- 4945 Jul, [facility] [place] [facility] [address] [id number] [place] [address]- 2682 Jul, [facility] [place] [facility] [address] [id number] [place] [address]- 7496 Jul, [facility] [place] [facility] [address] [id number] [place] [address]- 6561 Jul, [facility] [place] [facility] [address] [id number] [place] [address] Jul, [facility] [place] [facility] [address] [id number] [place] [address]- 3945 Jul, [facility] [place] [facility] [address] [id number], [place] [address]- 4769 31 Jun, 2013 [facility] [address] [id number] [place] [address]- 8091 14 Jun, 2013 [facility] [place] [facility] [address] [id number], [place] [address]- 4062 14 Jun, 2013 [facility] [address] [facility] [id number] [place] [address]- 8275 13 Jun, 2013 [facility] [place] [facility] [address] [id number] [place] [address]- 0232 13 Jun, 2013 [facility] [address] [facility] [id number] [place] [address]- 6952 May, [facility] [place] [facility] [address] [id number] [place] [address]- 8029 May, [facility] [address] [facility] [id number], [place] [address]- 7667 May, [facility] [place] [facility] [address] [facility] [id number], [place] [address]- 2622 May, [facility] [place] [facility] [address] [facility] [id number], [place] [address]- 3650 May, [facility] [place] [facility] [address] [facility] [id number], [place] [address]- 6131 Apr, [facility] [place] [facility] [address] [id number], [place] [address]- 8891 Apr, [facility] [place] [facility] [address] [id number], [place] [address]- 1258 Mar, [facility] [place] [facility] [address] [id number], [place] [address]- 0274 Mar, [facility] [place] [facility] [address] [facility] [id number], [place] [address]- 3464 Mar, [facility] [place] [facility] [address] [facility] [id number], [place] [address]- 6630 Mar, [facility] [place] [facility] [address] [id number] [place] [address]- 3877 16 Feb, 2013 [facility] [place] [facility] [address] [id number] [place] [address]- 9348 Jan, [facility] [place] [facility] [address] [id number] [place] [address]- 1319 Jan, [facility] [place] [facility] [address] [id number] [place] [address]- 6277 Aug, [facility] [place] [facility] [address] [id number] [place] [address]- 7251 Jul, [facility] [place] [facility] [address] [id number] [place] [address]- 1342 Jun, [facility] [place] [facility] [address] [id number] [place] [address] May, [facility] [place] [facility] [address] [id number] [place] [address]- 7147 May, [facility] [place] [facility] [address] [id number] [place] [address]- 9069 May, [facility] [place] [facility] [address] [id number] [place] [address]- 7240 May, [facility] [place] [facility] [address] [facility] [id number] [place] [address]- 6265 Apr, [facility] [place] [facility] [address] [id number] [place] [address]- 3932 Apr, [facility] [place] [facility] [address] [id number] [place] [address]- 1747 Mar, [facility] [place] [facility] [address] [id number] [place] [address]- 0946 Mar, [facility] [place] [facility] [address] [id number] [place] [address]- 1791 Mar, [facility] [place] [facility] [address] [id number] [place] [address]- 9915 Mar, [facility] [id number], [place] [address]- 2896 Mar, [facility] [id number], [place] [address]- 6906 Mar, [facility] [id number], [place] [address] 2546 Dec, [facility] [id number], [place] [address]- 2546 Dec, [facility] [id number], [place] [address] 2546 Nov, [facility] [id number] [place] [address] 31405 2546 Nov, [facility] [id number], [place] [address]- 4996 October, [facility] [id number], [place] [address] 2546 October, [facility] [address], [place] [address]- 7268 Sep, [facility] [address], [place] [address]- 4316 Aug, [facility] [id number], [place] [address]- 9256 Aug, [facility] [address], [place] [address] 2546 Aug, IMMUNIZATIONS No Known Immunizations SOCIAL HISTORY Never Assessed REASON FOR VISIT med refill PLAN OF CARE VITAL SIGNS MEDICATIONS Medication Instructions Dosage Frequency Start Date End Date Duration Status HydrOXYzine HCl 10 MG Orally Three times a day 1 tablet 8h 30 days Active RESULTS No Results PROCEDURES No Known procedures INSTRUCTIONS MEDICATIONS ADMINISTERED No Known Medications MEDICAL (GENERAL) HISTORY Type Description Date Medical History hyperlipidemia Medical History htn Medical History kidney failure stage 4 - dx in 2012 Medical History hypothyroidisim Medical History neuropathy Medical History COPD - See's Dr Burnette in [facility] Medical History Chronic Heart Failure Surgical History 2 cesareans Surgical History defibrillator - 2012 Hospitalization History pneumonia for a week 2017 Hospitalization History Hospitalized at [facility]- CHF, Chest pain. Dismissed 07/11/17 07/10/2017 Hospitalization History R[facility] pneumonia, hypoxia-[facility] 07/30/17 Hospitalization History [facility]- RLL PNA, Respiratory Failure. Transfered to [facility] 10/25/2017 Hospitalization History CHF/COPD 11/2017
--- OUTSIDE RECORDS SUMMARY | 2018-03-06 23:22 | XMS REPORT ---
Author Author TEAGAN VERNON [facility] Address [address] [place] [address] Care Team Providers Care Cokeman Name Role Phone TEAGAN VERNON Unavailable PROBLEMS Type Condition ICD9-CM Code FGX62-ND Code Onset Dates Condition Status SNOMED Code Problem Chronic systolic heart failure I50.22 Active 208889453 Problem Anemia associated with chronic renal failure D63.1 Active 570620791 Problem Mild depression F32.0 Active 044345595 Problem Essential hypertension I10 Active 54223952 Problem Chronic obstructive pulmonary disease with (acute) exacerbation J44.1 Active 111927093 Problem Chronic kidney disease, stage 4 (severe) N18.4 Active 473494137 Problem Acute on chronic combined systolic and diastolic CHF (congestive heart failure) I50.43 Active [id number] Problem Anxiety F41.9 Active 60843769 Problem Paroxysmal atrial fibrillation I48.0 Active 050189772 Problem Cardiomyopathy, unspecified type I42.9 Active 74826467 ALLERGIES No Information ENCOUNTERS Encounter Location Date Diagnosis [facility] [id number] [address] Dec, [facility] [id number] [place] [address] 94621- 8391 Dec, [facility] [id number] [place] [address] 52726- 1524 Nov, Acute on chronic combined systolic and diastolic CHF ( congestive heart failure) I50.43 [facility] [id number] [place] [address] 01664- 8682 Nov, [facility] [id number] [place] [address] 21357- 1698 Nov, [facility] [id number] [place] [address] 95499- 9910 Nov, Chronic systolic heart failure I50.22 ; Paroxysmal atrial fibrillation I48.0 ; Chronic obstructive pulmonary disease with (acute) exacerbation J44.1 ; Chronic kidney disease, stage 4 (severe) N18.4 ; Pain in right hip M25.551 and Pain in left hip M25.552 [facility] [address] [address] Nov, Chronic kidney disease, stage 4 (severe) N18.4 [facility] [address] [address] Nov, [facility] [id number] [place] [address] 33679- 9493 Nov, [facility] [id number] [place] [address] 15129- 0907 October, Chronic obstructive pulmonary disease with (acute) exacerbation J44.1 [facility] [id number] [address] October, [facility] [id number] [place] [address] 73860- 7301 October, [facility] [id number], [place] [address] Sep, Chronic kidney disease, stage 4 (severe) N18.4 and Chronic kidney disease, stage IV (severe) N18.4 [facility] [address] [address] Sep, Chronic kidney disease, stage 4 (severe) N18.4 [facility] [address] [address] Sep, Anxiety F41.9 ; Paroxysmal atrial fibrillation I48.0 ; Chronic kidney disease, stage 4 (severe) N18.4 ; Chronic systolic heart failure I50.22 and Anemia associated with chronic renal failure D63.1 [facility] [id number] [place] [address] 75272- 3507 Sep, [facility] [address] [address] 9226 Aug, [facility] [id number] [place] [address] 59208- 3761 Aug, [facility] [address] [place] [id number] Aug, Acute on chronic combined systolic and diastolic CHF (congestive heart failure) I50.43 ; Essential hypertension I10 ; CKD (chronic kidney disease) stage 4, GFR 15-29 ml/min N18.4 ; Paroxysmal atrial fibrillation I48.0 and Mild depression F32.0 [facility] [id number] [place] [address] 11595- 1192 Aug, [facility] [id number] [place] [address] 30680- 7820 Aug, [facility] [id number] [place] [address] 21459- 8396 Aug, Acute on chronic respiratory failure with hypoxia J96.21 ; Acute kidney failure, unspecified N17.9 ; Chronic kidney disease, stage 4 ( severe) N18.4 ; Acute on chronic combined systolic and diastolic CHF ( congestive heart failure) I50.43 ; Paroxysmal atrial fibrillation I48.0 and Cardiomyopathy, unspecified type I42.9 [facility] [address] [address] 4885 Aug, [facility] [id number] [place] [address] 78328- 2540 Jul, [facility] [address], [place] [address] 76[address] Jul, [facility] [id number] [place] [address] 61970- 6104 Jul, [facility] [address], [place] [address] Jul, [facility] [id number] [place] [address] 33465- 1914 06 Jul, 2017 Community acquired pneumonia of right lower lobe of lung J18.1 ; CKD (chronic kidney disease) stage 4, GFR 15-29 ml/min N18.4 and Shortness of breath R06.02 [facility] [id number] [place] [address] [id number] 05 Jul, 2017 [facility] [address] [address] Jun, Anxiety F41.9 [place] [address] [address]- 3219 Apr, Anxiety F41.9 [place] [address] 9[address]89- 1908 Apr, Cough R05 and Pneumonia of right lower lobe due to infectious organism J18.[address] [address]- [address] Apr, [place] [id number] [place] [address] 49296- 4154 Apr, Chronic kidney disease, stage IV (severe) N18.4 and COPD exacerbation J44.1 [place] [id number] [place] [address] 41064- 2005 Feb, Chronic systolic heart failure I50.22 ; Essential hypertension I10 ; Anemia associated with chronic renal failure D63.1 and Chronic kidney disease, stage 4 (severe) N18.4 [facility] [id number] [place] [address] 36918- 2475 Feb, Anxiety F41.9 [place] [address] 043[address]- 4172 Feb, [place] [id number] [place] [address] 74434- 4776 Feb, [place] [address] [address]40- 7786 Jan, Other fatigue R53.83 ; Otalgia of both ears H92.03 and Urinary urgency R39.15 [facility] [id number] [place] [address] 04959- 4540 Jan, Acute non-recurrent maxillary sinusitis J01.00 ; Chronic systolic heart failure I50.22 ; Stage 3 chronic kidney disease N18.3 and Mild depression F32.0 [facility] [id number] [place] [address] 88374- 2438 Sep, [facility] [id number] [place] [address] 66470- 9788 Sep, [facility] [id number] [place] [address] 73548- 7718 Feb, [facility] [id number] [place] [address] 11303- 3811 Feb, [facility] [id number] [place] [address] 93932- 9656 Dec, [facility] [id number] [place] [address] 67591- 3850 Dec, [facility] [id number] [place] [address] 51092- 3135 Nov, [facility] [id number] [place] [address] 15439- 5583 Nov, [facility] [id number] [place] [address] 58390- 3640 Nov, [facility] [id number] [place] [address] 73334- 1895 Nov, [facility] [id number] [place] [address] 41898- 8085 October, [facility] [id number] [place] [address] 039023- 4346 October, [facility] [id number] [place] [address] 61182- 2126 Sep, [facility] [place] [facility] [address] [id number] [place] [address]- 9666 Sep, [facility] [place] [facility] [address] [id number] [place] [address]- 5032 Sep, [facility] [place] [facility] [address] [id number] [place] [address]- 0832 Sep, [facility] [place] [facility] [address] [id number] [place] [address]- 8690 Sep, [facility] [place] [facility] [address] [id number] [place] [address]- 8175 Aug, [facility] [place] [facility] [address] [id number] [place] [address]- 0464 Aug, [facility] [place] [facility] [address] [id number] [place] [address]- 6102 Aug, [facility] [place] [facility] [address] [id number] [place] [address]- 8889 Aug, [facility] [place] [facility] [address] [id number] [place] [address]- 2779 Aug, [facility] [place] [facility] [address] [id number] [place] [address]- 0917 Aug, [facility] [place] [facility] [address] [id number] [place] [address]- 5632 Aug, [facility] [place] [facility] [address] [id number] [place] [address]- 3803 Aug, [facility] [place] [facility] [address] [id number] [place] [address]- 6349 Jul, [facility] [place] [facility] [address] [id number] [place] [address]- 9616 Jul, [facility] [place] [facility] [address] [id number] [place] [address]- 6161 Jul, [facility] [place] [facility] [address] [id number] [place] [address]- 1353 05 Jul, 2013 [facility] [place] [facility] [address] [id number] [place] [address]- 5560 Jul, [facility] [place] [facility] [address] [id number] [place] [address]- 0873 Jul, [facility] [place] [facility] [address] [id number] [place] [address]- 5763 Jun, [facility] [place] [facility] [address] [id number] [place] [address]- 7351 Jun, [facility] [place] [facility] [address] [id number] [place] [address]- 5586 Jun, [facility] [place] [facility] [address] [id number] [place] [address]- 7509 Jun, [facility] [place] [facility] [address] [id number] [place] [address]- 8029 Jun, [facility] [place] [facility] [address] [id number] [place] [address]- 7654 May, [facility] [place] [facility] [address] [id number] [place] [address]- 9183 May, [facility] [place] [facility] [address] [id number] [place] [address]- 3911 May, [facility] [place] [facility] [address] [id number] [place] [address]- 6663 May, [facility] [place] [facility] [address] [id number] [place] [address]- 8527 May, [facility] [place] [facility] [address] [id number] [place] [address]- 1372 Apr, [facility] [place] [facility] [address] [id number] [place] [address]- 6401 Apr, [facility] [place] [facility] [address] [id number] [place] [address]- 9386 Mar, [facility] [place] [facility] [address] [id number] [place] [address]- 9939 Mar, [facility] [place] [facility] [address] [id number] [place] [address]- 4763 Mar, [facility] [place] [facility] [address] [id number] [place] [address]- 1237 Mar, [facility] [place] [facility] [address] [id number] [place] [address]- 6987 Feb, [facility] [place] [facility] [address] [id number] [place] [address]- 1285 Jan, [facility] [place] [facility] [address] [id number] [place] [address]- 8834 Jan, [facility] [place] [facility] [address] [id number] [place] [address]- 6081 Aug, [facility] [place] [facility] [address] [id number] [place] [address]- 7944 Jul, [facility] [place] [facility] [address] [id number] [place] [address]34 Jun, [facility] [place] [facility] [address] [id number] [place] [address]- 1382 May, [facility] [place] [facility] [address] [id number] [address]- 1011 May, [facility] [place] [facility] [address] [id number] [place] [address]- 7171 May, [facility] [place] [facility] [address] [id number] [place] [address]- 9815 May, [facility] [place] [facility] [address] [id number] [place] [address]- 5032 Apr, [facility] [place] [facility] [address] [id number] [place] [address]- 2696 Apr, [facility] [place] [facility] [address] [id number] [place] [address]- 0826 Mar, [facility] [address] [id number] [place] [address]- 8902 Mar, [facility] [address] [id number] [place] [address] 2546 Mar, [facility] [address] [id number] [place] [address]- 2226 Mar, [facility] [address] [id number] [place] [address] 2549 Mar, [facility] [address] [id number] [place] [address]- 8288 Mar, [facility] [address] [id number] [place] [address]- 2546 Dec, [facility] [address] [facility] [id number] [place] [address]- 6867 Dec, [facility] [address] [id number] [place] [address]- 4873 Nov, [facility] [address] [facility] [id number] [place] [address]- 4866 Nov, [facility] [address] [facility] [id number] [place] [address]- 3306 October, [facility] [address] [facility] [id number] [place] [address]- 2546 October, [facility] [address] [id number] [place] [address]- 2546 Sep, [facility] [address] [id number] [place] [address]- 2546 Aug, [facility] [address] [facility] [id number] [place] [address]- 2546 Aug, [facility] [address] [facility] [id number] [place] [address]- 2546 Aug, IMMUNIZATIONS No Known Immunizations SOCIAL HISTORY Never Assessed REASON FOR VISIT FYI PLAN OF CARE VITAL SIGNS MEDICATIONS Unknown Medications RESULTS No Results PROCEDURES No Known procedures INSTRUCTIONS MEDICATIONS ADMINISTERED No Known Medications MEDICAL (GENERAL) HISTORY Type Description Date Medical History hyperlipidemia Medical History htn Medical History kidney failure stage 4 - dx in 2012 Medical History hypothyroidisim Medical History neuropathy Medical History COPD - See's Dr Burnette in [facility] Medical History Chronic Heart Failure Surgical History 2 cesareans Surgical History defibrillator - 2012 Hospitalization History pneumonia for a week 2016 Hospitalization History Hospitalized at [facility]- CHF, Chest pain. Dismissed 07/11/17 07/10/2017 Hospitalization History [facility] pneumonia, hypoxia-[facility] 07/30/17 Hospitalization History [facility]- [facility] PNA, Respiratory Failure. Transfered to [facility] 10/25/2017 Hospitalization History CHF/COPD 11/2017
--- OUTSIDE RECORDS SUMMARY | 2018-03-06 23:28 | XMS REPORT | Continuity of Care Document ---
Author Author [facility] Organization [facility] Address [facility] [address] [place] [address] Phone Unavailable Support Name Relationship Address Phone JULIA DAVIS/KM PARKER Caregiver [address] [place] [address] KEITH STERN MD Caregiver [address] [place] [address] RHONDA SOMMERS Next Of Kin [address] [place] [address] Insurance Providers Payer Name Policy Number Subscriber Name Relationship [facility] [id number] Wyatt Kulkarni 18 Self / Same As Patient Advance Directives Directive Response Recorded Date/Time Advance Directives No 01/07/14 6:52pm Living Will No 01/07/14 6:52pm Health Care Proxy No 06/06/14 9:22pm Power of [employer] Driver for Health Care No 01/07/14 6:52pm Organ, Tissue, or Eye Donor No 01/07/14 6:52pm Do you have a signed organ donor card? No 01/07/14 6:52pm Problems Medical Problems Problem Onset Date Status Intractable diarrhea Unknown Active Congestive heart failure (CHF) Unknown Active Abdominal pain Unknown Active Intractable diarrhea Unknown Active Dehydration symptoms Unknown Active Hypotension Unknown Active Costochondritis Unknown Active GERD (gastroesophageal reflux disease) Unknown Active Medications Medication Dose Route Sig Days/Qty Instructions Order Date Discontinued Date Status Metoprolol Succinate 50 Mg PO DAILY 30 Qty 01/07/14 06/06/14 Discontinued Prednisone Unknown Dose PO as directed 01/07/14 01/12/14 Discontinued Rabeprazole Sodium 20 Mg PO DAILY 01/07/14 Active Psyllium Hydrophilic Mucilloid 1 Tab PO DAILY 01/07/14 06/06/14 Discontinued Hydralazine HCl 10 Mg PO THREE TIMES A DAY 60 Qty 14 01/12/14 Discontinued Carvedilol 25 Mg PO TWICE A DAY 60 Qty 01/07/14 01/12/14 Discontinued Budesonide/Formoterol Fumarate 2 Puff IH TWICE A DAY 01/07/14 Active Sertraline HCl 100 Mg PO DAILY 30 Qty 01/07/14 Active Mv/Fa/Dha/Epa/Fish/Mann/D3/Gink 1 Each PO DAILY 01/07/14 01/12/14 Discontinued Lorazepam 0.5 Mg PO TWICE A DAY 60 Qty 01/07/14 Active Furosemide 40 Mg PO DAILY 30 Qty 01/07/14 Active Promethazine HCl 25 Mg PO EVERY 6 HOURS 01/07/14 01/12/14 Discontinued [Lisinopril] 5 Mg PO DAILY 01/12/14 06/06/14 Discontinued Carvedilol 25 Mg PO TWICE A DAY 60 Qty 06/06/14 Active Iron Aspgly&Ps Cmplx/C/Sucac* 150 Mg PO DAILY 06/06/14 Active Albuterol Sulfate (VENTOLIN 6.7GM HFA Inhaler) 1 Puff INH EVERY 4-6 HOURS 06/06/14 Active Lisinopril (Zestril 5 Mg Tab*) 5 Mg PO DAILY 30 Qty 06/06/14 Active Trazodone HCl 100 Mg PO BEDTIME 06/06/14 Active Levothyroxine Sodium 25 Mcg PO DAILY 30 Qty 06/06/14 Active Omeprazole 20 Mg PO DAILY 30 Qty 06/06/14 Active Magnesium Oxide 400 Mg PO DAILY 06/06/14 Active Psyllium Husk 0.52 Gm PO DAILY 06/06/14 Active Social History Social History Problem Response Recorded Date/Time Smoking Status Former smoker 01/06/2014 10:50pm Query Response Start Date Stop Date Smoking Status Former smoker Hospital Discharge Instructions No hospital discharge instructions. Plan of Care No plan of care. Functional Status Query Response Date Recorded Simms Coma Scale Total 15 June 06, 2014 9:25pm Patient Behavior Anxious June 06, 2014 9:25pm Allergies, Adverse Reactions, Alerts Allergen Type Severity Reaction Status Last Updated Meperidine Allergy Unknown Active 01/08/14 Honey bee Allergy Unknown Active 01/08/14 Immunizations Name Given Type Hx Diphtheria, Pertussis, Tetanus Vaccination Unknown Historical Hx Influenza Vaccination Y FALL 2013 Historical Hx Pneumococcal Vaccination Y FALL 2012 Historical Vital Signs Acute Vital Signs Vital Response Date/Time Temperature (Fahrenheit) 97.8 degrees F (97.6 - 99.5) Temperature Source Temporal Artery Pulse Rate (adult) 84 bpm (60 - 90) Respiratory Rate 20 bpm (12 - 24) Blood Pressure 113/62 mm Hg O2 Sat by Pulse Oximetry 100 % (95 - 100) Oxygen Delivery Method Oxygen Flow Rate 2 L/min Pain Intensity 10 Pain Location Body Site Modifier Upper Pain Description Pain Duration 1-3 Hours Height 5 ft 0 in Weight 147 lb Body Mass Index 28.0 kg/m^2 Results Test Source Date Result Interp. Ref. Range Comments Alanine Aminotransferase (ALT/SGPT) February 26, 2014 6:00pm 26 U/L N 12- 78 Albumin February 26, 2014 6:00pm 3.4 gm/dL N 3.4-5.0 Amylase Level January 07, 2014 7:30pm 37 U/L N 25-115 Aspartate Amino Transf (AST/SGOT) February 26, 2014 6:00pm 31 U/L N 15-37 B-Type Natriuretic Peptide June 06, 2014 10:05pm 230 PG/ML H 0-100 Basophils # (Auto) February 26, 2014 6:00pm 0.2 K/uL N 0.0-0.2 Basophils (%) (Auto) February 26, 2014 6:00pm 4.0 % H 0.0-1.0 Blood Urea Nitrogen February 26, 2014 6:00pm 30 mg/dL H 7-18 Calcium Level February 26, 2014 6:00pm 9.4 mg/dL N 8.8-10.5 Carbon Dioxide Level February 26, 2014 6:00pm 32.6 mEq/L H 21-32 Chloride Level February 26, 2014 6:00pm 93 mEq/L L 98-107 Creatine Kinase MB June 06, 2014 10:05pm 2.8 NG/ML N 0-3.6 Creatinine February 26, 2014 6:00pm 1.9 mg/dL H 0.6-1.0 Eosinophils # (Auto) February 26, 2014 6:00pm 0.1 K/uL N 0.0-0.7 Eosinophils (%) (Auto) February 26, 2014 6:00pm 2.2 % H 0.0-2.0 Erythrocyte Sedimentation Rate January 11, 2014 7:00am 25 mm/hr H 0-20 Glomerular Filtration Rate Calc February 26, 2014 6:00pm 29.4 mL/min L 60.0-128.0 Hematocrit February 26, 2014 6:00pm 39.2 % N 37.0-47.0 Hemoglobin February 26, 2014 6:00pm 13.3 gm/dL N 12.0-16.0 Lipase January 07, 2014 7:30pm 145 U/L N 65-230 Lymphocytes # (Auto) February 26, 2014 6:00pm 1.8 K/uL N 1.2-3.4 Lymphocytes (%) (Auto) February 26, 2014 6:00pm 29.8 % N 20.5-51.1 Magnesium Level February 26, 2014 6:00pm 1.8 mg/dL N 1.8-2.4 Mean Corpuscular Hemoglobin February 26, 2014 6:00pm 31.2 pg H 27.0-31.0 Mean Corpuscular Hemoglobin Concent February 26, 2014 6:00pm 34.0 g/dL N 30.0-37.0 Mean Corpuscular Volume February 26, 2014 6:00pm 91.7 fL N 81.0-99.0 Mean Platelet Volume February 26, 2014 6:00pm 6.6 fL L 7.4-10.4 Monocytes # (Auto) February 26, 2014 6:00pm 0.7 K/uL H 0.1-0.6 Monocytes (%) (Auto) February 26, 2014 6:00pm 10.7 % H 1.7-9.3 Myoglobin June 06, 2014 10:05pm 93.0 NG/ML H 10.5-92.5 Neutrophils # (Auto) February 26, 2014 6:00pm 3.3 K/uL N 2.0-6.9 Neutrophils (%) (Auto) February 26, 2014 6:00pm 53.4 % N 42.2-75.2 Other Body Source Scanned Report February 26, 2014 5:20pm OTHER FACILITY DOCUMENTS - Platelet Count February 26, 2014 6:00pm 263 K/uL N 130-400 Potassium Level February 26, 2014 6:00pm 4.6 mEq/L N 3.5-5.0 Random Glucose February 26, 2014 6:00pm 93 mg/dL N 70-110 Red Blood Count February 26, 2014 6:00pm 4.28 M/uL N 4.20-5.40 Red Cell Distribution Width February 26, 2014 6:00pm 13.6 % N 11.5-14.5 Sodium Level February 26, 2014 6:00pm 132 mEq/L L 136-145 Stl C. difficile DNA Amplification January 10, 2014 4:55pm Negative - Total Alkaline Phosphatase February 26, 2014 6:00pm 126 U/L N 50-136 Total Bilirubin February 26, 2014 6:00pm 0.30 mg/dL N 0.00-1.00 Total Creatine Kinase January 07, 2014 7:30pm 25 U/L L 26-192 Total Protein February 26, 2014 6:00pm 7.4 gm/dL N 6.4-8.2 Troponin I June 06, 2014 10:05pm 0.0 NG/ML N 0.0-0.2 Urine Appearance February 26, 2014 5:55pm Clear - Urine Bacteria February 26, 2014 5:55pm Trace - Urine Bilirubin February 26, 2014 5:55pm Negative - Urine Color February 26, 2014 5:55pm Yellow - Urine Glucose (UA) February 26, 2014 5:55pm Negative mg/dL - Urine Ketones February 26, 2014 5:55pm Negative mg/dL - Urine Leukocyte Esterase February 26, 2014 5:55pm Negative - Urine Nitrate February 26, 2014 5:55pm Negative - Urine Occult Blood February 26, 2014 5:55pm Trace - Urine Protein February 26, 2014 5:55pm Negative mg/dL - Urine RBC February 26, 2014 5:55pm 0-3 /hpf - Urine Specific [place] February 26, 2014 5:55pm < 1.005 L 1.010-1.025 Urine Squamous Epithelial Cells February 26, 2014 5:55pm 3-5 /hpf - Urine Urobilinogen February 26, 2014 5:55pm 0.2 E.U./dL - Urine WBC February 26, 2014 5:55pm Negative /hpf - Urine pH February 26, 2014 5:55pm 6.0 - White Blood Count February 26, 2014 6:00pm 6.1 K/uL N 4.8-10.8 Blood Culture Blood January 07, 2014 7:30pm NO GROWTH AFTER 5 DAYS Gram Stain Stool-Stool January 10, 2014 4:55pm Urine Culture Urine,Clean Catch February 26, 2014 5:55pm Procedures Procedure Status Date Provider(s) Screening mammography with computer-aided detection (CAD) completed 05/04/14 JANIS DAVIS PANDURA Digital screening mammography of both breasts completed 05/06/14 JANIS DAVIS PANDURA Portable x-ray of chest completed 06/06/14 KEITH STERN MD Encounters Encounter Location Date/Time Departed [facility] 9:[facility] 06/[facility] 10:22am [facility] 05/06/14 9:11am Recent Diagnosis
[2018-03-06 23:41] LABS: BASOPHILS % (AUTO) 0 % (0-10); EOSINOPHILS # (AUTO) 0.1 10^3/uL (0.0-0.3); EOSINOPHILS % (AUTO) 2 % (0-10); HEMATOCRIT 29 % (35-52); HEMOGLOBIN 8.8 G/DL (11.5-16.0); LYMPHOCYTES # (AUTO) 0.7 X 10^3 (1.0-4.0); LYMPHOCYTES % (AUTO) 10 % (12-44); MEAN CORPUSCULAR HEMOGLOBIN 30 PG (25-34); MEAN CORPUSCULAR HGB CONC 30 G/DL (32-36); MEAN CORPUSCULAR VOLUME 101 FL (80-99); MEAN PLATELET VOLUME 11.7 FL (7.4-10.4); MONOCYTES # (AUTO) 0.7 X 10^3 (0.0-1.0); MONOCYTES % (AUTO) 10 % (0-12); NEUTROPHILS # (AUTO) 5.5 X 10^3 (1.8-7.8); NEUTROPHILS % (AUTO) 78 % (42-75); PLATELET COUNT 130 10^3/uL (130-400); RED BLOOD COUNT 2.91 10^6/uL (4.35-5.85)
[2018-03-07] LABS: ALBUMIN 3.4 GM/DL (3.2-4.5); BILIRUBIN,TOTAL 0.5 MG/DL (0.1-1.0); CALCIUM 8.3 MG/DL (8.5-10.1); CREATININE SERUM 2.75 MG/DL (0.60-1.30); POTASSIUM 4.2 MMOL/L (3.6-5.0); TOTAL PROTEIN 5.7 GM/DL (6.4-8.2)
--- NOTE | 2018-03-07 00:01 | ED General ---
General Chief Complaint: General Problems/Pain Stated Complaint: WEAKNESS Nursing Triage Note: pt states had dialysis today, pt weak, tired Nursing Sepsis Screen: No Definite Risk Source of Information: Patient Exam Limitations: No Limitations History of Present Illness Date Seen by Provider: Mar 06, 2018 Time Seen by Provider: 23:08 Initial Comments Here from [facility] by EMS with report of unresponsiveness. Apparently the patient had walked to the bathroom and then pushed her call light and then walked back to her bed. The nurses found her in her bed and were concerned about her because she appeared tired. EMS was summoned. They were concerned about her blood pressure because it was in the low 100 systolic. On EMS arrival , blood pressure 110s systolic with heart rate 80s and O2 sat in the mid upper 90s on her typical 3 L of O2. Blood sugar was 111. Patient was denying complaints except for feeling tired. She does get dialysis on Friday, Friday and Friday and did have her dialysis today. Patient denies chest pain or nausea. Does have chronic breathing problems but not worse. She does have a history of breast significant edema but states that is much better. She did have recent hospitalization for volume overload but that is much better as well. Denies fever or vomiting. Timing/Duration: 1-3 Hours Associated Systoms: No Chest Pain, No Fever/Chills; Malaise; No Nausea/Vomiting , No Shortness of Air; Weakness Allergies and Home Medications Allergies Coded Allergies: propoxyphene napsylate (Unverified Allergy, Severe, SEVERE NAUSEA AND VOMITING , 04/03/13) meperidine (Unverified Allergy, Unknown, 12/19/14) venom-honey bee (Verified Allergy, Unknown, 09/19/13) lisinopril (Verified Adverse Reaction, Unknown, PT STATES "BOTTOMS OUT" HER BLOOD PRESSURE, 03/12/15) Patient states that it "bottoms out" her blood pressure. She will refuse to take this medication and reports it as an allergy. Home Medications Acetaminophen 500 Mg Tablet, 1,000 MG PO Q6H PRN for PAIN-MILD, (Reported) Amiodarone HCl 200 Mg Tablet, 200 MG PO DAILY, (Reported) Calcium Carbonate 300 Mg Tab.chew, 300 MG PO QID PRN for INDIGESTION, (Reported) Carvedilol 12.5 Mg Tablet, 12.5 MG PO BID, (Reported) Cefepime HCl/D5w 2 Gm/50 Ml Piggyback, 2 GM IV DAILY Prescribed by: SAM GIBBS on 12/26/17 104 Ferrous Sulfate 325 Mg Tablet, 325 MG PO DAILY, (Reported) Furosemide 10 Mg/1 Ml Vial, 100 MG IVP BID@0500,1700 Prescribed by: SAM GIBBS on 12/26/17 1047 Ipratropium/Albuterol Sulfate 3 Ml Ampul.neb, 3 ML NEB TID, (Reported) Ipratropium/Albuterol Sulfate 3 Ml Ampul.neb, 3 ML IH Q4H PRN for SHORTNESS OF BREATH, (Reported) Isosorbide Mononitrate 30 Mg Tab.er.24h, 15 MG PO BID, (Reported) TAKES 1/2 (30MG) TABLET Levothyroxine Sodium 25 Mcg Tablet, 25 MCG PO DAILY, (Reported) Loperamide HCl 2 Mg Capsule, 2 MG PO UD PRN for DIARRHEA, (Reported) Lorazepam 0.5 Mg Tablet, 0.5 MG PO HS, (Reported) Magnesium Oxide 400 Mg Tablet, 400 MG PO DAILY, (Reported) Methylprednisolone Sod Succ/Pf 40 Mg/1 Ml Vial, 40 MG IV Q6HR Prescribed by: SAM GIBBS on 12/26/171046 Multivitamins-Min/FA/Ginkgo 1 Each Tablet, 1 TAB PO DAILY, (Reported) Omeprazole 40 Mg Capsule.dr, 40 MG PO DAILY, (Reported) Ondansetron 4 Mg Tab.rapdis, 4 MG SL Q6H PRN for NAUSEA/VOMITING-1ST LINE, ( Reported) Oxycodone HCl 5 Mg Tablet, 5 MG PO Q4H PRN for PAIN-SEVERE, (Reported) Sertraline HCl 100 Mg Tablet, 150 MG PO HS, (Reported) TAKES 1 & 1/2 OF A (100 MG) TABLET Patient Home Medication List Home Medication List Reviewed: Yes Review of Systems Review of Systems Constitutional: see HPI; No chills, No fever; malaise EENTM: no symptoms reported Respiratory: see HPI Cardiovascular: No chest pain; edema; No palpitations Gastrointestinal: No abdominal pain, No nausea, No vomiting Genitourinary: no symptoms reported Musculoskeletal: no symptoms reported All Other Systems Reviewed Negative Unless Noted: Yes Past Gzgepqu-Krfkxi-Pvozma Hx Past Med/Social Hx: Reviewed Nursing Past Med/Soc Hx Patient Social History Alcohol Use: Denies Use Recreational Drug Use: No Smoking Status: Former Smoker Type Used: Cigarettes Former Smoker, Quit: Jul 09, 2017 2nd Hand Smoke Exposure: No Recent Foreign Travel: No Contact w/Someone Who Travel: No Recent Infectious Disease Expo: No Recent Hopitalizations: Yes (D/C 12/24/17) Immunizations Up To Date Tetanus Booster (TDap): Unknown PED Vaccines UTD: No Date of Pneumonia Vaccine: Mar 30, 2013 Date of Influenza Vaccine: Jul 11, 2017 Seasonal Allergies Seasonal Allergies: Yes Past Medical History Surgeries: Yes (CARDIAC CATH--NO INTERVENTION, DEFIBRILLATOR PLACEMENT ) Cardiac, Section, Defibrillator, Hysterectomy Respiratory: Yes Asthma, Pneumonia, COPD Currently Using CPAP: No Currently Using BIPAP: No Cardiac: Yes (CHF EF 20% non ischemic, left atrial thrombus) Atrial Fibrillation, Cardiomyopathy, High Cholesterol, Hypertension Neurological: Yes Headaches /Migraines 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 Disorders: Yes (Hysterectomy) 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 Disorders: Denies STEP DOWN NURSE History: Menopausal Sexually Transmitted Disease: No HIV/AIDS: No Genitourinary: Yes Renal Failure Gastrointestinal: Yes (history of elevated transaminases, HX of elevated liver enzymes) Gastroesophageal Reflux, Hiatal Hernia Musculoskeletal: Yes Arthritis Endocrine: Yes Hypothyroidsim HEENT: Yes Cataract Loss of Vision: Denies Hearing Impairment: Denies Cancer: No Bladder Psychosocial: Yes Sleep Difficulties, Anxiety, Depression Integumentary: No Blood Disorders: No Adverse Reaction/Blood Tranf: No Family Medical History Reviewed Nursing Family Hx Cancer 19 FATHER (HODGKINS ) 19 MOTHER (BRAIN TUMOR ) Congenital heart disease 19 MOTHER Congestive heart failure 19 MOTHER Family history: Cardiovascular disease 19 MOTHER G8 SISTER G8 SISTER Family history: Hypertension 19 MOTHER G8 SISTER G8 SISTER Heart disease 19 MOTHER G8 SISTER G8 SISTER History of - respiratory disease 19 MOTHER G8 BROTHER G8 SISTER Heart Disease, Cancer, Hypertension Physical Exam Vital Signs Vital Signs - First Documented 03/06/18 23:29 Temp 98.7 Pulse 77 Resp 15 B/P (MAP) 111/73 (86) Pulse Ox 96 O2 Delivery Room Air Capillary Refill : Less Than 3 Seconds Height, Weight, BMI Height: 4'11.00" Weight: 120lbs. 6.0oz. 54.391055jd; 34.6 BMI Method:Estimated General Appearance: No Apparent Distress, WD/WN HEENT: PERRL/EOMI, Pharynx Normal Neck: Non Tender, Supple Respiratory: Lungs Clear, Normal Breath Sounds Cardiovascular: Regular Rate, Rhythm, No Murmur Gastrointestinal: Non Tender, Soft Back: Normal Inspection, No CVA Tenderness, No Vertebral Tenderness Extremity: Normal Range of Motion, Non Tender, Pedal Edema (2+ edema to mid tibia bilaterally) Neurologic/Psychiatric: Alert, Oriented x3, No Motor/Sensory Deficits Skin: Warm/Dry, Ecchymosis (multiple areas of ecchymosis on the abdomen where she had heparin shots while hospitalized recently.) Procedures/Interventions Date of ETT Placement: Aug 20, 2017 Time of ETT Placement: 628 Progress/Results/Core Measures Suspected Sepsis Recent Fever Within 48 Hours: No Infection Criteria Present: None New/Unexplained Altered Menta: No Sepsis Screen: No Definite Risk SIRS Temperature:98.7 Pulse: 77 Respiratory Rate: 15 Laboratory Tests 03/06/18 23:34: White Blood Count 7.0 Blood Pressure 111 /73 Mean: 86 Laboratory Tests 03/06/18 23:34: Creatinine 2.75H, Platelet Count 130, Total Bilirubin 0.5 Results/Orders Lab Results Laboratory Tests Test 03/06/18 00:55 03/06/18 23:34 Range/Units Urine Color KARLEY H Urine Clarity VERY CLOUDY H Urine pH 5 5-9 Urine Specific [place] 1.020 1.016-1.022 Urine Protein 4+ NEGATIVE Urine Glucose (UA) NEGATIVE NEGATIVE Urine Ketones 1+ H NEGATIVE Urine Nitrite POSITIVE H NEGATIVE Urine Bilirubin 2+ H NEGATIVE Urine Urobilinogen 1 NORMAL MG/DL Urine Leukocyte Esterase 3+ H NEGATIVE Urine RBC (Auto) 5+ H NEGATIVE Urine RBC 5-10 H /HPF Urine WBC TNTC H /HPF Urine Squamous Epithelial Cells 10-25 H /HPF Urine Crystals NONE /LPF Urine Bacteria LARGE H /HPF Urine Casts NONE /LPF Urine Mucus LARGE H /LPF Urine Culture Indicated YES White Blood Count 7.0 4.3-11.0 10^3/uL Red Blood Count 2.91 L 4.35-5.85 10^6/uL Hemoglobin 8.8 L 11.5-16.0 G/DL Hematocrit 29 L 35-52 % Mean Corpuscular Volume 101 H 80-99 FL Mean Corpuscular Hemoglobin 30 25-34 PG Mean Corpuscular Hemoglobin Concent 30 L 32-36 G/DL Red Cell Distribution Width 18.0 H 10.0-14.5 % Platelet Count 130 130-400 10^3/uL Mean Platelet Volume 11.7 H 7.4-10.4 FL Neutrophils (%) (Auto) 78 H 42-75 % Lymphocytes (%) (Auto) 10 L 12-44 % Monocytes (%) (Auto) 10 0-12 % Eosinophils (%) (Auto) 2 0-10 % Basophils (%) (Auto) 0 0-10 % Neutrophils # (Auto) 5.5 1.8-7.8 X 10^3 Lymphocytes # (Auto) 0.7 L 1.0-4.0 X 10^3 Monocytes # (Auto) 0.7 0.0-1.0 X 10^3 Eosinophils # (Auto) 0.1 0.0-0.3 10^3/uL Basophils # (Auto) 0.0 0.0-0.1 10^3/uL Sodium Level 133 L 135-145 MMOL/L Potassium Level 4.2 3.6-5.0 MMOL/L Chloride Level 97 L 98-107 MMOL/L Carbon Dioxide Level 25 21-32 MMOL/L Anion Gap 11 5-14 MMOL/L Blood Urea Nitrogen 11 7-18 MG/DL Creatinine 2.75 H 0.60-1.30 MG/DL Estimat Glomerular Filtration Rate 18 BUN/Creatinine Ratio 4 Glucose Level 97 70-105 MG/DL Calcium Level 8.3 L 8.5-10.1 MG/DL Corrected Calcium 8.8 8.5-10.1 MG/DL Total Bilirubin 0.5 0.1-1.0 MG/DL Aspartate Amino Transf (AST/SGOT) 21 5-34 U/L Alanine Aminotransferase (ALT/SGPT) 46 0-55 U/L Alkaline Phosphatase 94 40-136 U/L B-Type Natriuretic Peptide 4175.6 H <100.0 PG/ML Total Protein 5.7 L 6.4-8.2 GM/DL Albumin 3.4 3.2-4.5 GM/DL My Orders Orders - JOSHUA CHOI MD BNP (03/06/18 23:12) Cbc With Automated Diff (03/06/18 23:12) Comprehensive Metabolic Panel (03/06/18 23:12) Ua Culture If Indicated (03/06/18 23:12) Chest 1 View, Ap/Pa Only (03/06/18 23:12) Ekg Tracing (03/06/18 23:12) O2 (03/06/18 23:12) Urine Culture (03/06/18 00:55) Ceftriaxone For Iv Use (Rocephin For I (03/07/18 01:15) Ceftriaxone For Iv Use (Rocephin For I (03/07/18 01:30) Lidocaine 1% Inj 20 Ml (Xylocaine 1% Inj (03/07/18 01:30) Lidocaine 1% Inj 20 Ml (Xylocaine 1% Inj (03/07/18 01:15) Ceftriaxone For Iv Use (Rocephin For I (03/07/18 01:15) Vital Signs/I&O 03/06/18 23:29 Temp 98.7 Pulse 77 Resp 15 B/P (MAP) 111/73 (86) Pulse Ox 96 O2 Delivery Room Air Capillary Refill : Less Than 3 Seconds Blood Pressure Mean: 86 Progress Note : Progress Note Seen and evaluated. We will check basic labs and urine as well as chest x-ray and EKG given her underlying medical disorders. Monitor patient. 0122: UA finally obtained via straight catheter. Results noted. Urinary tract infection noted. May be colonization but we will go ahead and give 1 dose of Rocephin 1 g IM now with cultures to follow. This was discussed with patient and family who agree. Patient is actually much better now overall. She is wanting to go back to the halfway. Daughter is here and can take Robaxin we will discharge her home with the daughter. Discharge home with return precautions. Patient and daughter verbalize understanding instructions and agreement with plan. ECG Initial ECG Impression Date: Mar 06, 2018 Initial ECG Impression Time: 23:18 Initial ECG Rate: 78 Initial ECG Rhythm: Normal Sinus Comment Sinus rhythm with leftward axis. No signs of ST elevation OK. Similar to previous of 12/25/17 although there were some pacer spikes noted on that EKG. Interpreted by me. Diagnostic Imaging Diagonstic Imaging: Xray Plain Films/CT/US/NM/MRI: chest Comments Portable chest x-ray shows vascular congestion without obvious infiltrate and improved from previous. Departure Impression Primary Impression: Urinary tract infection Qualified Codes: N30.00 - Acute cystitis without hematuria Disposition: HOME, SELF-CARE Condition: Improved Departure-Patient Inst. Decision time for Depature: 01:23 Referrals: TEAGAN DUBOSE MD (PCP/Family) Primary Care Physician Patient Instructions: Urinary Tract Infection, Adult (DC) Add. Discharge Instructions: All discharge instructions reviewed with patient and/or family. Voiced understanding. Follow-up with Dr. Dubose early next week for recheck and further evaluation and to check cultures of your urine. Continue previously prescribed medicines. Return for worse pain, fever, vomiting, weakness, breathing problems or other concerns as needed. Copy Copies To 1: TEAGAN DUBOSE MD, TIMOTHY D MD Mar 07, 2018 00:01
[2018-03-07 01:01] LABS: BILIRUBIN,URINE 2+ (NEGATIVE); CLARITY,URINE VERY CLOUDY; COLOR,URINE AMBER; GLUCOSE, URINE (UA) NEGATIVE (NEGATIVE); KETONES,URINE 1+ (NEGATIVE); LEUKOCYTE ESTERASE ,URINE 3+ (NEGATIVE); NITRITE,URINE POSITIVE (NEGATIVE); PH,URINE 5 (5-9); PROTEIN,URINE 4+ (NEGATIVE); UROBILINOGEN,URINE 1 MG/DL (NORMAL)
[2018-03-07 01:11] LABS: BACTERIA,URINE LARGE /HPF; WBC,URINE TNTC /HPF
[2018-03-07] MEDS ORDERED: cefTRIAXone FOR IV USE 1,000 MG in NS (IVPB) 50 ML IV ONE (01:15)
[2018-03-07] MEDS ORDERED: LIDOCAINE 1% INJ 20 ML 20 ML VIAL ONE (01:15)
[2018-03-07] MEDS ORDERED: cefTRIAXone 1 GM/10 ML for IV (ROCEPHIN) IV ONE (01:15)
[2018-03-07] MEDS ORDERED: LIDOCAINE 1% INJ 20 ML 20 ML VIAL INJ ONE (01:30)
[2018-03-07] MEDS ORDERED: cefTRIAXone 1 GM/10 ML for IV (ROCEPHIN) IM ONE (01:30)
[2018-03-07 02:14] VITALS: BP 100/63
--- NOTE | 2018-03-07 06:22 | Diagnostic Imaging Report ---
INDICATION: Shortness of breath, pacemaker, central venous catheter. COMPARISON: 12/26/2017. FINDINGS: Single view of the chest demonstrates cardiac enlargement with stable central vascular congestion. There is no pneumothorax or effusion. Central venous catheter has been placed compared to previous exam. There is no pneumothorax. Pacemaker is stable. IMPRESSION: Cardiac enlargement with central vascular congestion. Dictated by: Dictated on workstation # [id number]
== END 2018-03-07 01:15 | disposition home or self-care (01) ==
LOC: EDUNIT# 23:05 → ER 23:08
DX: N39.0 Urinary tract infection, site not specified (principal); J44.9 Chronic obstructive pulmonary disease, unspecified; I48.91 Unspecified atrial fibrillation; I42.9 Cardiomyopathy, unspecified; E78.00 Pure hypercholesterolemia, unspecified; G43.909 Migraine, unspecified, not intractable, without status migrainosus; I12.0 Hypertensive chronic kidney disease with stage 5 chronic kidney disease or end stage renal disease; N18.6 End stage renal disease; K21.9 Gastro-esophageal reflux disease without esophagitis; E03.9 Hypothyroidism, unspecified; F41.9 Anxiety disorder, unspecified; F32.9 Major depressive disorder, single episode, unspecified; Z85.71 Personal history of Hodgkin lymphoma; Z82.49 Family history of ischemic heart disease and other diseases of the circulatory system; Z85.841 Personal history of malignant neoplasm of brain; Z99.2 Dependence on renal dialysis; Z88.8 Allergy status to other drugs, medicaments and biological substances; Z87.19 Personal history of other diseases of the digestive system; Z87.01 Personal history of pneumonia (recurrent); Z87.891 Personal history of nicotine dependence; Z95.810 Presence of automatic (implantable) cardiac defibrillator; Z87.59 Personal history of other complications of pregnancy, childbirth and the puerperium; Z90.710 Acquired absence of both cervix and uterus
CPT/HCPCS: 36415; 71045; 80053; 81000; 83880; 85025; 87088; 93005

== ENCOUNTER 2018-03-30 10:08 | Emergency (ER) | payer MEDICARE, MEDICAID ==
[~2018-03-30] VITALS: Ht 149.9 cm; Wt 77.6 kg
[2018-03-30] MEDS ORDERED: RT-ALBUTEROL/IPRATROPIUM 3 ML (DUONEB) VIAL ONE ×2 (10:13→10:19)
[2018-03-30] MEDS ORDERED: RT-ALBUTEROL SULF 2.5 MG/3 ML PRE-MIX VIAL ONE (10:19)
[2018-03-30] MEDS ORDERED: RT-ALBUTEROL SULF 2.5 MG/3 ML PRE-MIX VIAL INH STA (10:19)
--- NOTE | 2018-03-30 10:25 | ED Respiratory ---
General Chief Complaint: Respiratory Problems Stated Complaint: ABD PAIN;NAUSEA;SOB Nursing Triage Note: EMS DISPATHCED TO DIALYSIS CENTER, PT THERE FOR DIALYSIS, PT REPORTED HAVING DIFFICULTY BREATHING ON SCENE, EMS STAFF STATED SHE WAS SLUGGISH TO RESPONSE ON SCENE AND DETERIORATED EN ROUTE. PRESENTS TO THE ED UNRESPONSIVE TO VOICE. RESPONSIVE TO PAIN. Source: patient, EMS Exam Limitations: clinical condition History of Present Illness Date Seen by Provider: Mar 30, 2018 Time Seen by Provider: 10:12 Initial Comments The patient presents to ER by EMS from dialysis where she was getting ready to do dialysis when she started complaining of upper abdominal pain radiating to either quadrant. By time EMS arrived they said she was alert oriented but started declining and having hard time breathing. She says she's been having abdominal pain nausea and shortness of breath all weekend for the past 3 or 4 days. She was put on CPAP and after that her sats started to drop so they put her on high flow oxygen. This brought her sats up to 100%. When she arrived to the ER she was having only confused words and not able to identify herself. She belongs at [facility] and [facility] and is full code. Unknown if she took an extra pain meds today. Allergies and Home Medications Allergies Coded Allergies: propoxyphene napsylate (Unverified Allergy, Severe, SEVERE NAUSEA AND VOMITING , 04/03/13) meperidine (Unverified Allergy, Unknown, 12/19/14) venom-honey bee (Verified Allergy, Unknown, 09/19/13) lisinopril (Verified Adverse Reaction, Unknown, PT STATES "BOTTOMS OUT" HER BLOOD PRESSURE, 03/12/15) Patient states that it "bottoms out" her blood pressure. She will refuse to take this medication and reports it as an allergy. Home Medications Acetaminophen 500 Mg Tablet, 1,000 MG PO Q6H PRN for PAIN-MILD, (Reported) Amiodarone HCl 200 Mg Tablet, 200 MG PO DAILY, (Reported) Calcium Carbonate 300 Mg Tab.chew, 300 MG PO QID PRN for INDIGESTION, (Reported) Carvedilol 12.5 Mg Tablet, 12.5 MG PO BID, (Reported) Cefepime HCl/D5w 2 Gm/50 Ml Piggyback, 2 GM IV DAILY Prescribed by: SAM GIBBS on 12/26/17 1047 Ferrous Sulfate 325 Mg Tablet, 325 MG PO DAILY, (Reported) Furosemide 10 Mg/1 Ml Vial, 100 MG IVP BID@0500,1700 Prescribed by: SAM GIBBS on 12/26/17 1047 Ipratropium/Albuterol Sulfate 3 Ml Ampul.neb, 3 ML NEB TID, (Reported) Ipratropium/Albuterol Sulfate 3 Ml Ampul.neb, 3 ML IH Q4H PRN for SHORTNESS OF BREATH, (Reported) Isosorbide Mononitrate 30 Mg Tab.er.24h, 15 MG PO BID, (Reported) TAKES 1/2 (30MG) TABLET Levothyroxine Sodium 25 Mcg Tablet, 25 MCG PO DAILY, (Reported) Loperamide HCl 2 Mg Capsule, 2 MG PO UD PRN for DIARRHEA, (Reported) Lorazepam 0.5 Mg Tablet, 0.5 MG PO HS, (Reported) Magnesium Oxide 400 Mg Tablet, 400 MG PO DAILY, (Reported) Methylprednisolone Sod Succ/Pf 40 Mg/1 Ml Vial, 40 MG IV Q6HR Prescribed by: SAM GIBBS on 12/26/17 1047 Multivitamins-Min/FA/Ginkgo 1 Each Tablet, 1 TAB PO DAILY, (Reported) Omeprazole 40 Mg Capsule.dr, 40 MG PO DAILY, (Reported) Ondansetron 4 Mg Tab.rapdis, 4 MG SL Q6H PRN for NAUSEA/VOMITING-1ST LINE, ( Reported) Oxycodone HCl 5 Mg Tablet, 5 MG PO Q4H PRN for PAIN-SEVERE, (Reported) Sertraline HCl 100 Mg Tablet, 150 MG PO HS, (Reported) TAKES 1 & 1/2 OF A (100 MG) TABLET Patient Home Medication List Home Medication List Reviewed: Yes Review of Systems Review of Systems Constitutional: see HPI (patient is obtunded and unable to give any meaningful review of systems.) Past Lyieesk-Sqblmn-Mckxny Hx Patient Social History Smoking Status: Current Everyday Smoker Type Used: Cigarettes Former Smoker, Quit: Jul 09, 2017 2nd Hand Smoke Exposure: No Recent Foreign Travel: No Contact w/Someone Who Travel: No Recent Infectious Disease Expo: No Recent Hopitalizations: Yes (D/C 12/24/17) Immunizations Up To Date Tetanus Booster (TDap): Unknown PED Vaccines UTD: No Date of Pneumonia Vaccine: Mar 30, 2013 Date of Influenza Vaccine: Jul 11, 2017 Seasonal Allergies Seasonal Allergies: Yes Past Medical History Surgeries: Yes (CARDIAC CATH--NO INTERVENTION, DEFIBRILLATOR PLACEMENT ) Cardiac, Section, Defibrillator, Hysterectomy Respiratory: Yes Asthma, Pneumonia, COPD Currently Using CPAP: No Currently Using BIPAP: No Cardiac: Yes (CHF EF 20% non ischemic, left atrial thrombus) Atrial Fibrillation, Cardiomyopathy, High Cholesterol, Hypertension Neurological: Yes Headaches /Migraines : No 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 Disorders: Yes (Hysterectomy) 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 Disorders: Denies 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 Sexually Transmitted Disease: No HIV/AIDS: No Genitourinary: Yes Renal Failure Gastrointestinal: Yes (history of elevated transaminases, HX of elevated liver enzymes) Gastroesophageal Reflux, Hiatal Hernia Musculoskeletal: Yes Arthritis Endocrine: Yes Hypothyroidsim HEENT: Yes Cataract Loss of Vision: Denies Hearing Impairment: Denies Cancer: No Bladder Psychosocial: Yes Sleep Difficulties, Anxiety, Depression Integumentary: No Blood Disorders: No Adverse Reaction/Blood Tranf: No Family Medical History Cancer 19 FATHER (HODGKINS ) 19 MOTHER (BRAIN TUMOR ) Congenital heart disease 19 MOTHER Congestive heart failure 19 MOTHER Family history: Cardiovascular disease 19 MOTHER G8 SISTER G8 SISTER Family history: Hypertension 19 MOTHER G8 SISTER G8 SISTER Heart disease 19 MOTHER G8 SISTER G8 SISTER History of - respiratory disease 19 MOTHER G8 BROTHER G8 SISTER Heart Disease, Cancer, Hypertension Physical Exam Vital Signs - First Documented 03/30/18 10:08 Temp 98.1 Pulse 107 Resp 26 B/P (MAP) 147/90 (109) Pulse Ox 96 O2 Delivery Non Rebreather O2 Flow Rate 15.00 Capillary Refill : Less Than 3 Seconds Height: 0'59.00" Weight: 165lbs. 6.0oz. 74.273687gs; 34.6 BMI Method:Stated General Appearance: severe distress, obese Eyes: Bilateral Eye Normal Inspection, Bilateral Eye PERRL, Bilateral Eye EOMI HEENT: PERRL/EOMI, normal ENT inspection, TMs normal, pharynx normal Respiratory: chest non-tender, respiratory distress (severe), decreased breath sounds, accessory muscle use (marketed) Cardiovascular: normal peripheral pulses, regular rate, rhythm Gastrointestinal: normal bowel sounds, non tender, soft Extremities: normal inspection, normal capillary refill Neurologic/Psychiatric: other (initial Charley Coma Scale of 11) Skin: normal color, warm/dry Focused Exam Lactate Level 10/1/18 11:09: Lactic Acid Level 0.76 Lactic Acid Level Laboratory Tests Test 03/30/18 11:09 Lactic Acid Level 0.76 MMOL/L (0.50-2.00) Procedures/Interventions Date of ETT Placement: Aug 20, 2017 Time of ETT Placement: 628 Progress/Results/Core Measures Suspected Sepsis Recent Fever Within 48 Hours: No Infection Criteria Present: None New/Unexplained Altered Menta: Yes Sepsis Screen: No Definite Risk SIRS Temperature:98.1 Pulse: 107 Respiratory Rate: 26 Laboratory Tests 03/30/18 10:15: White Blood Count 16.8H Blood Pressure 147 /90 Mean: 109 03/30/18 11:09: Lactic Acid Level 0.76 Laboratory Tests 03/30/18 10:15: Creatinine 3.06H, INR Comment 1.2, Platelet Count 276, Total Bilirubin 0.7 Results/Orders Lab Results Laboratory Tests Test 03/30/18 10:15 03/30/18 10:27 03/30/18 10:30 03/30/18 10:37 Range/Units White Blood Count 16.8 H 4.3-11.0 10^3/uL Red Blood Count 3.45 L 4.35-5.85 10^6/uL Hemoglobin 10.3 L 11.5-16.0 G/DL Hematocrit 34 L 35-52 % Mean Corpuscular Volume 99 80-99 FL Mean Corpuscular Hemoglobin 30 25-34 PG Mean Corpuscular Hemoglobin Concent 30 L 32-36 G/DL Red Cell Distribution Width 17.3 H 10.0-14.5 % Platelet Count 276 130-400 10^3/uL Mean Platelet Volume 11.9 H 7.4-10.4 FL Neutrophils (%) (Auto) 90 H 42-75 % Lymphocytes (%) (Auto) 5 L 12-44 % Monocytes (%) (Auto) 5 0-12 % Eosinophils (%) (Auto) 0 0-10 % Basophils (%) (Auto) 1 0-10 % Neutrophils # (Auto) 15.1 H 1.8-7.8 X 10^3 Lymphocytes # (Auto) 0.8 L 1.0-4.0 X 10^3 Monocytes # (Auto) 0.9 0.0-1.0 X 10^3 Eosinophils # (Auto) 0.0 0.0-0.3 10^3/uL Basophils # (Auto) 0.1 0.0-0.1 10^3/uL Neutrophils % (Manual) 89 % Lymphocytes % (Manual) 4 % Monocytes % (Manual) 4 % Basophils % (Manual) 1 % Band Neutrophils 2 % Blood Morphology Comment NORMAL Prothrombin Time 15.3 H 12.2-14.7 SEC INR Comment 1.2 0.8-1.4 Activated Partial Thromboplast Time 86 H 24-35 SEC Sodium Level 131 L 135-145 MMOL/L Potassium Level 4.8 3.6-5.0 MMOL/L Chloride Level 95 L 98-107 MMOL/L Carbon Dioxide Level 24 21-32 MMOL/L Anion Gap 12 5-14 MMOL/L Blood Urea Nitrogen 14 7-18 MG/DL Creatinine 3.06 H 0.60-1.30 MG/DL Estimat Glomerular Filtration Rate 16 BUN/Creatinine Ratio 5 Glucose Level 205 H 70-105 MG/DL Calcium Level 9.3 8.5-10.1 MG/DL Corrected Calcium 9.6 8.5-10.1 MG/DL Phosphorus Level 3.2 2.3-4.7 MG/DL Magnesium Level 2.2 1.8-2.4 MG/DL Total Bilirubin 0.7 0.1-1.0 MG/DL Aspartate Amino Transf (AST/SGOT) 20 5-34 U/L Alanine Aminotransferase (ALT/SGPT) 19 0-55 U/L Alkaline Phosphatase 121 40-136 U/L Troponin I < 0.30 <0.30 NG/ML Total Protein 6.7 6.4-8.2 GM/DL Albumin 3.6 3.2-4.5 GM/DL Lipase 82 H 8-78 U/L Serum Alcohol < 10 <10 MG/DL Glucometer 223 H 70-110 MG/DL Urine Color YELLOW Urine Clarity CLOUDY H Urine pH 5 5-9 Urine Specific Martin 1.020 1.016-1.022 Urine Protein 4+ NEGATIVE Urine Glucose (UA) NEGATIVE NEGATIVE Urine Ketones 2+ H NEGATIVE Urine Nitrite NEGATIVE NEGATIVE Urine Bilirubin NEGATIVE NEGATIVE Urine Urobilinogen 1 NORMAL MG/DL Urine Leukocyte Esterase 3+ H NEGATIVE Urine RBC (Auto) 5+ H NEGATIVE Urine RBC 5-10 H /HPF Urine WBC 25-50 H /HPF Urine Squamous Epithelial Cells 2-5 /HPF Urine Crystals NONE /LPF Urine Amorphous Sediment MOD HUYEN URATES H /LPF Urine Bacteria MODERATE H /HPF Urine Casts NONE /LPF Urine Mucus NEGATIVE /LPF Urine Culture Indicated YES Urine Opiates Screen NEGATIVE NEGATIVE Urine Oxycodone Screen POSITIVE H NEGATIVE Urine Methadone Screen NEGATIVE NEGATIVE Urine Propoxyphene Screen NEGATIVE NEGATIVE Urine Barbiturates Screen NEGATIVE NEGATIVE Ur Tricyclic Antidepressants Screen NEGATIVE NEGATIVE Urine Phencyclidine Screen NEGATIVE NEGATIVE Urine Amphetamines Screen NEGATIVE NEGATIVE Urine Methamphetamines Screen NEGATIVE NEGATIVE Urine Benzodiazepines Screen POSITIVE H NEGATIVE Urine Cocaine Screen NEGATIVE NEGATIVE Urine Cannabinoids Screen NEGATIVE NEGATIVE Blood Gas Puncture Site LT RAD Blood Gas Patient Temperature 97.8 Arterial Blood pH 7.20 *L 7.37-7.43 Arterial Blood Partial Pressure CO2 73 *H 35-45 MMHG Arterial Blood Partial Pressure O2 82 79-93 MMHG Arterial Blood HCO3 28 H 23-27 MMOL/L Arterial Blood Total CO2 30.0 21.0-31.0 MMOL/L Arterial Blood Oxygen Saturation 94 94-100 % Arterial Blood Base Excess 0.4 -2.5-2.5 MMOL/L Hank Test YES-POS Blood Gas Ventilator Setting NO Blood Gas Inspired Oxygen 70% BIPAP Test 03/30/18 11:09 Range/Units Lactic Acid Level 0.76 0.50-2.00 MMOL/L Micro Results Microbiology 03/30/18 Influenza Types A,B Antigen (MARIA VICTORIA) - Final, Complete My Orders Orders - BEVERLY AQUINO Albuterol/Ipra Inhalation Soln (Duoneb I (03/30/18 10:13) Alcohol (03/30/18 10:19) Arterial Blood Gas (03/30/18 10:19) Cbc With Automated Diff (03/30/18 10:19) Comprehensive Metabolic Panel (03/30/18 10:19) Drug Screen Stat (Urine) (03/30/18 10:19) Lactic Acid Analyzer (03/30/18 10:19) Lipase (03/30/18 10:19) Magnesium (03/30/18 10:19) Protime With Inr (03/30/18 10:19) Partial Thromboplastin Time (03/30/18 10:19) Troponin I (03/30/18 10:19) Ua Culture If Indicated (03/30/18 10:19) Blood Culture (03/30/18 10:19) Influenza A And B Antigens (03/30/18 10:19) Phosphorus (03/30/18 10:19) Chest 1 View, Ap/Pa Only (03/30/18 10:19) Albuterol Pre-Mix Nebs (Rt) (Proventil (03/30/18 10:19) Albuterol/Ipra Inhalation Soln (Duoneb I (03/30/18 10:30) Rt Request For Service (03/30/18 10:19) Saline Lock/Iv-Start (03/30/18 10:19) Svn Small Volume Nebulizer (03/30/18 10:19) Albuterol Pre-Mix Nebs (Rt) (Proventil (03/30/18 10:19) Albuterol/Ipra Inhalation Soln (Duoneb I (03/30/18 10:19) Accucheck Stat ONCE (03/30/18 10:25) Manual Differential (03/30/18 10:15) Catheter(Urinary) Insert & Ass 03,15 (03/30/18 10:38) Cefepime Injection (Maxipime Injection) (03/30/18 10:45) Urine Culture (03/30/18 10:30) Oseltamivir Capsule (Tamiflu Capsule) (03/30/18 11:45) Ns Iv 1000 Ml (Sodium Chloride 0.9%) (03/30/18 12:35) Ns Iv 1000 Ml (Sodium Chloride 0.9%) (03/30/18 12:45) Medications Given in ED Current Medications Medications Dose Ordered Sig/Cade Route Start Time Stop Time Status Last Admin Dose Admin Albuterol/ Ipratropium 3 ml ONCE ONCE INH 03/30/18 10:30 03/30/18 10:31 DC 03/30/18 11:03 3 ML Cefepime HCl 2000 mg/Sodium Chloride 50 ml @ 100 mls/hr ONCE ONCE IV 03/30/18 10:45 03/30/18 11:14 DC 03/30/18 11:18 100 MLS/HR Oseltamivir Phosphate 30 mg ONCE ONCE PO 03/30/18 11:45 03/30/18 11:46 DC 03/30/18 12:10 30 MG Vital Signs/I&O 10/1/18 10/1/18 10/1/18 10/1/18 10:08 10:56 11:01 11:49 Temp 98.1 Pulse 107 107 75 Resp 26 B/P (MAP) 147/90 (109) Pulse Ox 96 95 100 97 O2 Delivery Non Rebreather O2 Flow Rate 15.00 75.00 60.00 Capillary Refill : Less Than 3 Seconds Blood Pressure Mean: 109 Progress Note #1: Time: 10:43 Progress Note Cardiac catheterization showing mild coronary artery disease in 2012 - by Dr. Khoury in [place], [place] Nonischemic cardiomyopathy, LVEF 10-15% per echo of Jul [address] Levy Acute on chronic renal insufficiency - CKD stage III-IV - followed by Dr. Thakkar in [place], [place] Initial lung sounds were very diminished so we put her on an hour-long DuoNeb and albuterol treatment and work on getting seriously intubating her. Lowest GCS was 11. With bagging and then switching her BiPAP she began to have increased mentation opening her eyes spontaneously and nodding her head yes and no tach answering questions. ABG is obtained. Her mental status is improving. Her other concern was with this nausea abdominal pain and shortness of breath she might be having acute coronary however the EKG is unrevealing and unchanged. No IV fluids been given. Blood pressures been good around 140 systolic since she's been here. Heart rates been a mild tachycardic range 100 110. Her sats of been in the lowest of 94%. We switched her from high flow nonrebreather over to [id number] and put a nasal trumpet in and then switched her over to BiPAP. On BiPAP she's 18/8 which RT informs me is what she is required in the past since she has fairly noncompliant lungs. There may be some fluid in her lung secondary to her heart failure as well. We put a Joiner catheter in and have not gotten a urine out yet and don't know how much effect Lasix would have on a dialysis patient will get a chest x-ray and some labs and then she will need transport somewhere that has renal consultation and inpatient dialysis. Progress Note #2: Time: 12:13 Progress Note We have not given any fluids despite the patient's septic appearance on labs and imaging vital signs. Her blood pressure has been high and her presentation is improved with our interventions. At this time because of a carious and this of her breathing I would prefer not to add more fluids on board as her chest x- ray clinical exam and clinical gestalt indicate she is in acute heart failure. ECG Initial ECG Impression Date: Mar 30, 2018 Initial ECG Impression Time: 10:15 Initial ECG Rate: 111 Initial ECG Rhythm: S.Tach Initial ECG Intervals: Normal Initial ECG Impression: Nonspecific Changes Initial ECG Comparisson: Unchanged Comment No ST elevation or depression Diagnostic Imaging Diagonstic Imaging: Xray Plain Films/CT/US/NM/MRI: chest (1v) Comments [facility] [place], [place] NAME: WYATT KULKARNI [facility] REC#: [id number] PT STATUS: REG ER : 1960 PHYSICIAN: BEVERLY AQUINO MD ADMIT DATE: 03/30/18/ER Draft Date of Exam:03/30/18 CHEST 1 VIEW, AP/PA ONLY INDICATION: Difficulty breathing. TIME OF EXAMINATION: 10:43 a.m. COMPARISON: Correlation is made with prior study from 03/06/2018. FINDINGS: Right-sided dialysis line and left-sided cardiac fibrillator remain in place. There are congestive changes in both lungs. The heart is enlarged. There are bibasilar pulmonary infiltrates present. Central congestion. There is no pneumothorax. IMPRESSION: Findings suggestive of congestive failure. Dictated on workstation # [id number] Dict: 03/30/18 1053 Trans: 03/30/18 1106 [facility] [id number] Interpreted by: RONI HERNANDEZ MD Electronically signed by: Reviewed: Reviewed by Me Critical Care Note Critical Care Start Time: 10:13 Stop Time: 11:00 Total Time (minutes) 47 mins Progress Patient arrives obtunded, GCS of 11, air sounds are very diminished and tight bilateral. She has visibly struggling to breathe and has a known history of COPD with exacerbations requiring BiPAP in the past. We put a nasal trumpet in her nose started DuoNeb and albuterol 1 hour treatment and started bag valve masking her. She is resisting it so put her on BiPAP. She started to perk up. Her sats never got below 94%. Her heart rate was around 100-110. Respiratory rate came down from 30 to about 20. We established Joiner catheter, got an ABG which shows she is an acute respiratory acidosis with marginal metabolic compensation. There is a previous history that the patient was having abdominal pain for the past 3 days and shortness of breath. We went ahead and got an EKG thinking about atypical cardiac angina. EKG was unremarkable and unchanged from previous EKGs. We alan labs to include lipase, troponin, urinalysis, urine drug screen and initially ammonia. Ammonia sample was unusable so we did not redrawn since we obtained her history from the snf and she did not have any liver history. As you continue to ventilate the patient her mental affect improved and she began to nod her head yes or no and make known her desires to use the bathroom. She was speaking in 1-3 word sentences. Her family was called and they're at the bedside. She is a full code. Influenza swabs were obtained. The patient's been afebrile since she's been here. A blood sugar was checked when she arrived and it was over 200. 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 Departure Impression Primary Impression: Respiratory failure with hypoxia and hypercapnia Qualified Codes: J96.21 - Acute and chronic respiratory failure with hypoxia; J96.22 - Acute and chronic respiratory failure with hypercapnia Additional Impressions: Decompensated COPD with exacerbation (chronic obstructive pulmonary disease) Pancreatitis Qualified Codes: K85.90 - Acute pancreatitis without necrosis or infection, unspecified Electrolyte abnormality End stage renal disease on dialysis Steroid-induced diabetes mellitus HCAP (healthcare-associated pneumonia) Acute urinary tract infection CHF (congestive heart failure) Qualified Codes: I50.23 - Acute on chronic systolic (congestive) heart failure Influenza B Disposition: XFER SHT-TRM HOSP Condition: Stable Transfer Time Spoke to Accepting Phy: 11:35 Transfer Progress Notes [facility] [place] 1125: Latasha; Dr Bedolla, ; 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 He recommends admission to ICU. He accepts the patient for transfer. Latasha will call us back with a room assignment. Transfer Facility: [facility] Method of Transfer: EMS Departure-Patient Inst. Referrals: TEAGAN VERNON MD (PCP/Family) Primary Care Physician Copy Copies To 1: CEZAR JORDAN TITUS J Mar 30, 2018 10:25
[2018-03-30 10:28] LABS: BASOPHILS # (AUTO) 0.1 10^3/uL (0.0-0.1); BASOPHILS % (AUTO) 1 % (0-10); EOSINOPHILS % (AUTO) 0 % (0-10); HEMATOCRIT 34 % (35-52); HEMOGLOBIN 10.3 G/DL (11.5-16.0); LYMPHOCYTES # (AUTO) 0.8 X 10^3 (1.0-4.0); LYMPHOCYTES % (AUTO) 5 % (12-44); MEAN CORPUSCULAR HEMOGLOBIN 30 PG (25-34); MEAN CORPUSCULAR HGB CONC 30 G/DL (32-36); MEAN CORPUSCULAR VOLUME 99 FL (80-99); MEAN PLATELET VOLUME 11.9 FL (7.4-10.4); MONOCYTES # (AUTO) 0.9 X 10^3 (0.0-1.0); MONOCYTES % (AUTO) 5 % (0-12); NEUTROPHILS # (AUTO) 15.1 X 10^3 (1.8-7.8); NEUTROPHILS % (AUTO) 90 % (42-75); PLATELET COUNT 276 10^3/uL (130-400); RED BLOOD COUNT 3.45 10^6/uL (4.35-5.85); RED CELL DISTRIBUTION WIDTH 17.3 % (10.0-14.5); WHITE BLOOD COUNT 16.8 10^3/uL (4.3-11.0)
[2018-03-30] MEDS ORDERED: RT-ALBUTEROL/IPRATROPIUM 3 ML (DUONEB) VIAL INH ONE (10:30)
[2018-03-30 10:37] LABS: BILIRUBIN,URINE NEGATIVE (NEGATIVE); COLOR,URINE YELLOW; GLUCOSE, URINE (UA) NEGATIVE (NEGATIVE); KETONES,URINE 2+ (NEGATIVE); LEUKOCYTE ESTERASE ,URINE 3+ (NEGATIVE); NITRITE,URINE NEGATIVE (NEGATIVE); PH,URINE 5 (5-9); PROTEIN,URINE 4+ (NEGATIVE); UROBILINOGEN,URINE 1 MG/DL (NORMAL)
[2018-03-30 10:38] LABS: INR 1.2 (0.8-1.4); PROTHROMBIN TIME PATIENT 15.3 SEC (12.2-14.7)
--- OUTSIDE RECORDS SUMMARY | 2018-03-30 10:42 | XMS REPORT ---
Author Author LEE SILVA [facility] Address [address] [place] [address] Care Team Providers Care Tube Pusher Name Role Phone LEE SILVA Unavailable PROBLEMS Type Condition ICD9-CM Code [id number] Code Onset Dates Condition Status SNOMED Code Problem Psychophysiological insomnia F51.04 Active 609388348 Problem Chronic obstructive pulmonary disease, unspecified J44.9 Active 07939227 Problem Cardiomyopathy I42.9 Active 21614566 Problem Slow transit constipation K59.01 Active 37719850 Problem Acquired hypothyroidism E03.9 Active 593264883 Problem Supplemental oxygen dependent Z99.81 Active 603999015634 Problem Acute on chronic systolic CHF (congestive heart failure) I50.23 Active 741781657 Problem Chronic kidney disease, stage IV (severe) N18.4 Active 298925009 Problem COPD with acute lower respiratory infection J44.0 Active 437708776 Problem Essential hypertension I10 Active 62883146 Problem Anemia associated with chronic renal failure D63.1 Active 152675816 Problem Anxiety F41.9 Active 38752699 Problem Chronic systolic heart failure I50.22 Active 341350321 Problem Paroxysmal atrial fibrillation I48.0 Active 885020515 Problem Mild depression F32.0 Active 773425395 Problem Chronic obstructive pulmonary disease with (acute) exacerbation J44.1 Active 536778016 ALLERGIES No Information ENCOUNTERS Encounter Location Date Diagnosis [facility] [address] [place] [id number] Feb, Vertigo R42 and Chronic kidney disease, stage IV (severe) N18.4 [facility] [id number] [id number] Feb, [facility] [address] [place] [id number] Feb, Cellulitis of breast N61.0 [facility] [address] [address] 18 Feb, 2018 [facility] [id number] [place] [address] 41351- 0816 16 Feb, 2018 [place] [id number] [place] [address] 38860- 9958 12 Feb, 2018 Psychophysiological insomnia F51.04 [facility] [address] [place] [id number] Feb, [place] [id number] [place] [address] 79043- 7076 10 Feb, 2018 [facility] [address] [place] [id number] 04 Feb, 2018 Chronic kidney disease, stage IV (severe) N18.4 ; Chronic systolic heart failure I50.22 ; COPD with acute lower respiratory infection J44.0 ; Vertigo R42 ; Slow transit constipation K59.01 ; Hemorrhoids, unspecified hemorrhoid type K64.9 ; Acquired hypothyroidism E03.9 ; Candidiasis of breast B37.89 and Difficulty in urination R39.198 [facility] [facility] [id number] [place] [address] 49884- 8173 Jan, Acute on chronic systolic CHF (congestive heart failure) I50.23 ; Acute kidney failure, unspecified N17.9 ; Chronic kidney disease, stage III (moderate) N18.3 and Supplemental oxygen dependent Z99.81 [place] [facility] [id number] [place] [address] 31597- 2286 Jan, Acute on chronic combined systolic and diastolic CHF ( congestive heart failure) I50.43 [facility] [facility] [id number] [place] [address] 60134- 4991 Jan, [facility] [id number] [place] [address] 33550 -7940 Jan, Irritant contact dermatitis due to cosmetics L24.3 ; Effusion of right wrist M25.431 and Pain in right wrist M25.531 [place] [id number] [place] [address] 79509- 0519 Dec, Chronic systolic heart failure I50.22 ; Chronic obstructive pulmonary disease with (acute) exacerbation J44.1 ; CKD (chronic kidney disease ) stage 4, GFR 15-29 ml/min N18.4 ; Cardiomyopathy I42.9 ; Dependence on supplemental oxygen Z99.81 and Psychophysiological insomnia F51.04 [place] [id number] [place] [address] 94352- 7592 Dec, Anxiety F41.9 [place] [id number] [place] [address] 44275- 8096 Dec, [place] [id number] [place] [address] 81169- 8870 Dec, [place] [id number] [place] [address] 05323- 0774 Dec, [facility] [address] [place] [id number] Dec, Encounter for examination for admission to shelter Z02.2 ; Chronic obstructive pulmonary disease, unspecified J44.9 ; Paroxysmal atrial fibrillation I48.0 ; CKD (chronic kidney disease) stage 4, GFR 15-29 ml/min N18.4 and Cardiomyopathy I42.9 [place] [id number] [place] [address] 33218- 0989 Dec, [place] [id number] [place] [address] 64860- 2573 Nov, Acute on chronic combined systolic and diastolic CHF ( congestive heart failure) I50.43 [place] [id number] [place] [address] 11986- 8859 Nov, [place] [id number] [place] [address] 77581- 7708 Nov, [place] [id number] [place] [address] 23148- 6139 Nov, Chronic systolic heart failure I50.22 ; Paroxysmal atrial fibrillation I48.0 ; Chronic obstructive pulmonary disease with (acute) exacerbation J44.1 ; Chronic kidney disease, stage 4 (severe) N18.4 ; Pain in right hip M25.551 and Pain in left hip M25.552 [place] [id number] [place] [address] 51644- 5876 Nov, Chronic kidney disease, stage 4 (severe) N18.4 [facility] [id number] [place] [address] 49690- 1892 Nov, [place] [id number] [place] [address] 18126- 8031 Nov, [place] [id number] [place] [address] 99808- 9046 October, Chronic obstructive pulmonary disease with (acute) exacerbation J44.1 ; Chronic systolic heart failure I50.22 ; CKD (chronic kidney disease) stage 4, GFR 15-29 ml/min N18.4 and Dependence on supplemental oxygen Z99.81 [place] [id number] [place] [address] 59545- 8693 October, [place] [id number] [place] [address] 29362- 6087 October, [place] [id number] [place] [address] 77897- 5702 Sep, Chronic kidney disease, stage 4 (severe) N18.4 and Chronic kidney disease, stage IV (severe) N18.4 [place] [id number] [place] [address] 41509- 3162 Sep, Chronic kidney disease, stage 4 (severe) N18.4 [place] [id number] [place] [address] 41756- 3718 Sep, Anxiety F41.9 ; Paroxysmal atrial fibrillation I48.0 ; Chronic kidney disease, stage 4 (severe) N18.4 ; Chronic systolic heart failure I50.22 and Anemia associated with chronic renal failure D63.1 [place] [id number] [place] [address] 28408- 0067 Sep, [facility] [address], [place] [address] 4699 Aug, [facility] [id number] [place] [address] 47431- 4948 Aug, [facility] [address] [place] [id number] Aug, Acute on chronic combined systolic and diastolic CHF (congestive heart failure) I50.43 ; Essential hypertension I10 ; CKD (chronic kidney disease) stage 4, GFR 15-29 ml/min N18.4 ; Paroxysmal atrial fibrillation I48.0 and Mild depression F32.0 [facility] [id number] [place] [address] 81837- 0103 Aug, [facility] [id number] [place] [address] 52320- 0983 Aug, [facility] [id number] [place] [address] 20505- 4699 Aug, Acute on chronic respiratory failure with hypoxia J96.21 ; Acute kidney failure, unspecified N17.9 ; Chronic kidney disease, stage 4 ( severe) N18.4 ; Acute on chronic combined systolic and diastolic CHF ( congestive heart failure) I50.43 ; Paroxysmal atrial fibrillation I48.0 and Cardiomyopathy, unspecified type I42.9 [facility] [address] [address] 2036 Aug, [facility] [address], [place] [address] 1855 Jul, [facility] [address] [address] 3829 Jul, [facility] [id number] [place] [address] 98409- 1814 Jul, [facility] [address], [place] [address] 0226 Jul, [facility] [id number] [place] [address] 33024- 6998 06 Jul, 2017 Community acquired pneumonia of right lower lobe of lung J18.1 ; CKD (chronic kidney disease) stage 4, GFR 15-29 ml/min N18.4 and Shortness of breath R06.02 [facility] [id number] [place] [address] [id number] 05 Jul, 2017 [place] [id number] [place] [address] 61957- 3596 Jun, Anxiety F41.9 [place] [address] 32917- 7822 Apr, Anxiety F41.9 [place] [address] 99982- 2833 Apr, Cough R05 and Pneumonia of right lower lobe due to infectious organism J18.1 [id number] [place] [address] 31261- 4079 Apr, [place] [id number] [place] [address] 64129- 2163 Apr, Chronic kidney disease, stage IV (severe) N18.4 and COPD exacerbation J44.1 [address] [id number] [place] [address] 30482- 3322 Feb, Chronic systolic heart failure I50.22 ; Essential hypertension I10 ; Anemia associated with chronic renal failure D63.1 and Chronic kidney disease, stage 4 (severe) N18.4 [place] [id number] [place] [address] 67872- 7207 Feb, Anxiety F41.9 [place] [id number] [place] [address] 81929- 2917 Feb, [place] [id number] [place] [address] 74438- 1861 Feb, [place] [id number] [place] [address] 77707- 1897 Jan, Other fatigue R53.83 ; Otalgia of both ears H92.03 and Urinary urgency R39.15 [facility] [id number] [place] [address] 15300- 3376 Jan, Acute non-recurrent maxillary sinusitis J01.00 ; Chronic systolic heart failure I50.22 ; Stage 3 chronic kidney disease N18.3 and Mild depression F32.0 [facility] [id number] [place] [address] 03648- 9570 Sep, [facility] [id number] [place] [address] 70665- 5875 Sep, [facility] [id number] [place] [address] 90881- 0845 Feb, [facility] [id number] [place] [address] 46281- 3288 Feb, [facility] [id number] [place] [address] 36271- 1976 Dec, [facility] [id number] [place] [address] 81887- 7978 Dec, [facility] [id number] [place] [address] 77185- 2045 Nov, [facility] [id number] [address]- 8414 Nov, [facility] [id number] [place] [address] 39147- 6597 Nov, [facility] [address] [address]- 7454 Nov, [facility] [id number] [place] [address] 387141- 0194 October, [facility] [id number] [address]- 1399 October, [facility] [id number] [place] [address] 13154- 1716 Sep, [facility] [place] [facility] [address] [id number] [place] [address]- 2236 Sep, [facility] [place] [facility] [address] [id number] [place] [address]- 4441 Sep, [facility] [place] [facility] [address] [id number] [place] 4529 Sep, [facility] [place] [facility] [address] [id number] [place] [address]- 5838 Sep, [facility] [place] [facility] [address] [id number] [place] [address]- 5723 Aug, [facility] [place] [facility] [address] [id number] [place] [address]- 1923 Aug, [facility] [place] [facility] [address] [id number] [place] [address]- 7746 Aug, [facility] [place] [facility] [address] [id number] [place] [address]- 3109 Aug, [facility] [place] [facility] [address] [id number] [place] [address]- 4587 Aug, [facility] [place] [facility] [address] [id number] [place] [address]- 9320 Aug, [facility] [place] [facility] [address] [id number] [place] [address]- 7513 Aug, [facility] [place] [facility] [address] [id number] [place] [address]- 8009 Aug, [facility] [place] [facility] [address] [id number] [place] 9017 Jul, [facility] [place] [facility] [address] [id number] [place] [address]- 6116 Jul, [facility] [place] [facility] [address] [id number] [place] [address]- 6490 Jul, [facility] [place] [facility] [address] [id number] [place] [address]- 6252 05 Jul, 2013 [facility] [address] [id number] [place] [address]- 9759 Jul, [facility] [address] [id number] [place] 5291 03 Jul, 2013 [facility] [address] [id number] [place] [address]- 8530 31 Jun, 2013 [facility] [address] [id number] [place] [address]- 7842 14 Jun, 2013 [facility] [address] [id number] [place] [address]- 6841 14 Jun, 2013 [facility] [address] [id number] [place] [address]- 2083 Jun, [facility] [address] [id number] [place] [address]- 2887 Jun, [facility] [address] [id number] [place] [address]- 7532 May, [facility] [address] [id number] [place] [address]- 3882 May, [facility] [address] [facility] [id number] [place] [address]- 4578 May, [facility] [address] [id number] [place] [address]- 0928 May, [facility] [address] [id number] [place] [address]- 0804 May, [facility] [place] [facility] [address] [id number] [place] [address]- 1469 Apr, [facility] [place] [facility] [address] [id number] [place] [address]- 8949 Apr, [facility] [address] [id number] [place] [address]- 5319 Mar, [facility] [place] [facility] [address] [id number] [place] [address]- 3302 Mar, [facility] [place] [facility] [address] [id number] [place] [address]- 9659 Mar, [facility] [place] [facility] [address] [id number] [place] [address]- 7991 Mar, [facility] [place] [facility] [address] [id number] [place] [address]- 9749 Feb, [facility] [place] [facility] [address] [id number] [place] [address]- 7393 Jan, [facility] [place] [facility] [address] [id number] [place] [address]- 7169 Jan, [facility] [address] [facility] [id number] [place] [address]- 2251 Aug, [facility] [place] [facility] [address] [id number] [place] [address]- 0462 Jul, [facility] [place] [facility] [address] [id number] [place] [address]- 7696 Jun, [facility] [place] [facility] [address] [id number] [place] [address]- 4552 May, [facility] [place] [facility] [address] [id number] [address]- 3547 May, [facility] [place] [facility] [address] [id number] [address]- 4965 May, [facility] [place] [facility] [address] [id number] [place] 7495 May, [facility] [place] [facility] [address] [id number] [place] [address]- 1359 Apr, [facility] [place] [facility] [address] [facility] [id number] [address]- 5587 Apr, [facility] [place] [facility] [address] [id number] [address]- 9436 Mar, [facility] [address] [facility] [id number] [place] [address]- 1596 Mar, [facility] [address] [facility] [id number] [address]- 2936 Mar, [facility] [address] [place] [address]- 8186 Mar, [facility] [address] [facility] [id number] [place] [address]- 4749 Mar, [facility] [address] [facility] [id number] [place] [address]- 7727 Mar, [facility] [id number] [place] [address]- 2128 Dec, [facility] [address], [place] [address]- 9056 Dec, [facility] [address] [address]- 9171 Nov, [facility] [address] [address]- 0472 Nov, [facility] [address] [address]- 2986 October, [facility] [address], [place] [address]- 7956 October, [facility] [id number] [address]- 9726 Sep, [facility] [id number] [address]- 0589 Aug, [facility] [id number] [address]- 0696 Aug, [facility] [id number] [address]- 9617 Aug, IMMUNIZATIONS No Known Immunizations SOCIAL HISTORY Never Assessed REASON FOR VISIT Controlled Med Refill PLAN OF CARE VITAL SIGNS MEDICATIONS Medication Instructions Dosage Frequency Start Date End Date Duration Status Lorazepam 0.5 MG Orally everyday at bedtime 1 tablet Aug, 28 days Active RESULTS No Results PROCEDURES No Known procedures INSTRUCTIONS MEDICATIONS ADMINISTERED No Known Medications MEDICAL (GENERAL) HISTORY Type Description Date Medical History hyperlipidemia Medical History htn Medical History kidney failure stage 4 - dx in 2012 Medical History hypothyroidisim Medical History neuropathy Medical History COPD - See's Dr Burnette in [place] Medical History Chronic Heart Failure Surgical History 2 cesareans Surgical History defibrillator - 2012 Hospitalization History pneumonia for a week 2017 Hospitalization History Hospitalized at [facility]- CHF, Chest pain. Dismissed 07/11/17 07/10/2017 Hospitalization History [facility] pneumonia, hypoxia-[facility] 07/30/17 Hospitalization History [facility]- RLL PNA, Respiratory Failure. Transfered to [place] 10/25/2017 Hospitalization History CHF/COPD 11/2017
[2018-03-30 10:43] LABS: ABG BASE EXCESS 0.4 MMOL/L (-2.5-2.5); ABG OXYGEN SATURATION 94 % (94-100); ABG PO2 82 MMHG (79-93)
--- OUTSIDE RECORDS SUMMARY | 2018-03-30 10:43 | XMS REPORT ---
Author Author LEE SILVA [facility] Address [address] [place] [address] Care Team Providers Care Special Education Assistant Name Role Phone LEE SILVA Unavailable PROBLEMS Type Condition ICD9-CM Code SZS06-US Code Onset Dates Condition Status SNOMED Code Problem Psychophysiological insomnia F51.04 Active 852849427 Problem Chronic obstructive pulmonary disease, unspecified J44.9 Active 42052933 Problem Cardiomyopathy I42.9 Active 20097818 Problem Slow transit constipation K59.01 Active 77934191 Problem Acquired hypothyroidism E03.9 Active 838851565 Problem Supplemental oxygen dependent Z99.81 Active 300016654409 Problem Acute on chronic systolic CHF (congestive heart failure) I50.23 Active 903860532 Problem Chronic kidney disease, stage IV (severe) N18.4 Active 314945734 Problem COPD with acute lower respiratory infection J44.0 Active 133071455 Problem Essential hypertension I10 Active 20837116 Problem Anemia associated with chronic renal failure D63.1 Active 934578108 Problem Anxiety F41.9 Active 76016310 Problem Chronic systolic heart failure I50.22 Active 595486879 Problem Paroxysmal atrial fibrillation I48.0 Active 726112652 Problem Mild depression F32.0 Active 677596469 Problem Chronic obstructive pulmonary disease with (acute) exacerbation J44.1 Active 031246812 ALLERGIES No Information ENCOUNTERS Encounter Location Date Diagnosis [facility] [address] [place] [id number] Feb, Vertigo R42 and Chronic kidney disease, stage IV (severe) N18.4 [facility] [id number] [id number] Feb, [facility] [address] [place] [id number] Feb, Cellulitis of breast N61.0 [facility] [address] [address] 18 Feb, 2018 [facility] [id number] [place] [address] 07299- 4963 16 Feb, 2018 [place] [id number] [place] [address] 85398- 7161 12 Feb, 2018 Psychophysiological insomnia F51.04 [facility] [address] [place] [id number] Feb, [place] [id number] [place] [address] 19760- 0013 10 Feb, 2018 [facility] [address] [place] [id number] 04 Feb, 2018 Chronic kidney disease, stage IV (severe) N18.4 ; Chronic systolic heart failure I50.22 ; COPD with acute lower respiratory infection J44.0 ; Vertigo R42 ; Slow transit constipation K59.01 ; Hemorrhoids, unspecified hemorrhoid type K64.9 ; Acquired hypothyroidism E03.9 ; Candidiasis of breast B37.89 and Difficulty in urination R39.198 [facility] [facility] [id number] [place] [address] 77157- 2827 Jan, Acute on chronic systolic CHF (congestive heart failure) I50.23 ; Acute kidney failure, unspecified N17.9 ; Chronic kidney disease, stage III (moderate) N18.3 and Supplemental oxygen dependent Z99.81 [place] [facility] [id number] [place] [address] 28908- 9069 Jan, Acute on chronic combined systolic and diastolic CHF ( congestive heart failure) I50.43 [place] [id number] [place] [address] 04893- 2948 Jan, [facility] [id number] [place] [address] 93849 -7682 Jan, Irritant contact dermatitis due to cosmetics L24.3 ; Effusion of right wrist M25.431 and Pain in right wrist M25.531 [place] [id number] [place] [address] 09101- 2238 Dec, Chronic systolic heart failure I50.22 ; Chronic obstructive pulmonary disease with (acute) exacerbation J44.1 ; CKD (chronic kidney disease ) stage 4, GFR 15-29 ml/min N18.4 ; Cardiomyopathy I42.9 ; Dependence on supplemental oxygen Z99.81 and Psychophysiological insomnia F51.04 [place] [id number] [place] [address] 44541- 0573 Dec, Anxiety F41.9 [place] [id number] [place] [address] 87503- 8458 Dec, [place] [id number] [place] [address] 89445- 2545 Dec, [place] [id number] [place] [address] 23068- 3368 Dec, [facility] [address] [place] [id number] Dec, Encounter for examination for admission to alf Z02.2 ; Chronic obstructive pulmonary disease, unspecified J44.9 ; Paroxysmal atrial fibrillation I48.0 ; CKD (chronic kidney disease) stage 4, GFR 15-29 ml/min N18.4 and Cardiomyopathy I42.9 [place] [id number] [place] [address] 49325- 9721 Dec, [place] [id number] [place] [address] 13582- 1376 Nov, Acute on chronic combined systolic and diastolic CHF ( congestive heart failure) I50.43 [place] [id number] [place] [address] 90887- 1057 Nov, [place] [id number] [place] [address] 86003- 0287 Nov, [place] [id number] [place] [address] 15868- 5814 Nov, Chronic systolic heart failure I50.22 ; Paroxysmal atrial fibrillation I48.0 ; Chronic obstructive pulmonary disease with (acute) exacerbation J44.1 ; Chronic kidney disease, stage 4 (severe) N18.4 ; Pain in right hip M25.551 and Pain in left hip M25.552 [place] [id number] [place] [address] 47340- 9351 Nov, Chronic kidney disease, stage 4 (severe) N18.4 [place] [id number] [place] [address] 39323- 5629 Nov, [place] [id number] [place] [address] 40757- 7948 Nov, [place] [id number] [place] [address] 89574- 1937 October, Chronic obstructive pulmonary disease with (acute) exacerbation J44.1 ; Chronic systolic heart failure I50.22 ; CKD (chronic kidney disease) stage 4, GFR 15-29 ml/min N18.4 and Dependence on supplemental oxygen Z99.81 [place] [id number] [place] [address] 99521- 0003 October, [place] [id number] [place] [address] 11583- 6336 October, [place] [id number] [place] [address] 85259- 1993 Sep, Chronic kidney disease, stage 4 (severe) N18.4 and Chronic kidney disease, stage IV (severe) N18.4 [place] [id number] [place] [address] 22001- 9768 Sep, Chronic kidney disease, stage 4 (severe) N18.4 [place] [id number] [place] [address] 06355- 4674 Sep, Anxiety F41.9 ; Paroxysmal atrial fibrillation I48.0 ; Chronic kidney disease, stage 4 (severe) N18.4 ; Chronic systolic heart failure I50.22 and Anemia associated with chronic renal failure D63.1 [place] [id number] [place] [address] 71293- 5661 Sep, [facility] [address] [address] 9093 Aug, [facility] [id number] [place] [address] 92102- 7169 Aug, [facility] [address] [place] [id number] Aug, Acute on chronic combined systolic and diastolic CHF (congestive heart failure) I50.43 ; Essential hypertension I10 ; CKD (chronic kidney disease) stage 4, GFR 15-29 ml/min N18.4 ; Paroxysmal atrial fibrillation I48.0 and Mild depression F32.0 [facility] [id number] [place] [address] 60680- 5719 Aug, [facility] [id number] [place] [address] 07570- 5041 Aug, [facility] [id number] [place] [address] 99981- 9101 Aug, Acute on chronic respiratory failure with hypoxia J96.21 ; Acute kidney failure, unspecified N17.9 ; Chronic kidney disease, stage 4 ( severe) N18.4 ; Acute on chronic combined systolic and diastolic CHF ( congestive heart failure) I50.43 ; Paroxysmal atrial fibrillation I48.0 and Cardiomyopathy, unspecified type I42.9 [facility] [address] [address] 3852 Aug, [facility] [address] [address] 8666 Jul, [facility] [address] [address] 4504 Jul, [facility] [id number] [place] [address] 40017- 2838 Jul, [facility] [address] [address]- 2275 Jul, [facility] [id number] [place] [address] 53456- 7604 06 Jul, 2017 Community acquired pneumonia of right lower lobe of lung J18.1 ; CKD (chronic kidney disease) stage 4, GFR 15-29 ml/min N18.4 and Shortness of breath R06.02 [facility] [id number] [place] [address] [id number] 05 Jul, 2017 [place] [id number] [place] [address] 01122- 9089 Jun, Anxiety F41.9 [place] [address] 44578- 4664 Apr, Anxiety F41.9 [place] [address] 51194- 1041 Apr, Cough R05 and Pneumonia of right lower lobe due to infectious organism J18.1 [place] [id number] [place] [address] 89429- 6244 Apr, [place] [id number] [place] [address] 96120- 2125 Apr, Chronic kidney disease, stage IV (severe) N18.4 and COPD exacerbation J44.1 [place] [id number] [place] [address] 44809- 7814 Feb, Chronic systolic heart failure I50.22 ; Essential hypertension I10 ; Anemia associated with chronic renal failure D63.1 and Chronic kidney disease, stage 4 (severe) N18.4 [place] [id number] [place] [address] 26202- 8796 Feb, Anxiety F41.9 [place] [id number] [place] [address] 93749- 6151 Feb, [place] [id number] [place] [address] 82470- 2614 Feb, [place] [id number] [place] [address] 22799- 1776 Jan, Other fatigue R53.83 ; Otalgia of both ears H92.03 and Urinary urgency R39.15 [facility] [id number] [place] [address] 78231- 4981 Jan, Acute non-recurrent maxillary sinusitis J01.00 ; Chronic systolic heart failure I50.22 ; Stage 3 chronic kidney disease N18.3 and Mild depression F32.0 [facility] [id number] [place] [address] 87056- 0534 Sep, [facility] [id number] [place] [address] 47790- 7423 Sep, [facility] [id number] [place] [address] 60131- 5153 Feb, [facility] [id number] [place] [address] 38746- 6224 Feb, [facility] [id number] [place] [address] 96539- 1785 Dec, [facility] [id number] [place] [address] 44624- 4141 Dec, [facility] [id number] [place] [address] 45650- 3877 Nov, [facility] [id number] [address]- 8154 Nov, [facility] [id number] [place] [address] 37325- 1821 Nov, [facility] [address] [address]- 3709 Nov, [facility] [id number] [place] [address] 801454- 0549 October, [facility] [id number] [address]- 2072 October, [facility] [id number] [place] [address] 75122- 4092 Sep, [facility] [place] [facility] [address] [id number] [place] [address]- 2960 Sep, [facility] [place] [facility] [address] [id number] [place] [address]- 6313 Sep, [facility] [place] [facility] [address] [id number] [place] 0903 Sep, [facility] [place] [facility] [address] [id number] [place] [address]- 8681 Sep, [facility] [place] [facility] [address] [id number] [place] [address]- 6262 Aug, [facility] [place] [facility] [address] [id number] [place] [address]- 6195 Aug, [facility] [place] [facility] [address] [id number] [place] [address]- 5802 Aug, [facility] [place] [facility] [address] [id number] [place] [address]- 7043 Aug, [facility] [place] [facility] [address] [id number] [place] [address]- 4866 Aug, [facility] [place] [facility] [address] [id number] [place] [address]- 3934 Aug, [facility] [place] [facility] [address] [id number] [place] [address]- 0189 Aug, [facility] [place] [facility] [address] [id number] [place] [address]- 0176 Aug, [facility] [place] [facility] [address] [id number] [place] 2713 Jul, [facility] [place] [facility] [address] [id number] [place] [address]- 7866 Jul, [facility] [place] [facility] [address] [id number] [place] [address]- 8352 Jul, [facility] [place] [facility] [address] [id number] [place] [address]- 2266 05 Jul, 2013 [facility] [address] [id number] [place] [address]- 4155 Jul, [facility] [address] [id number] [place]- 5075 03 Jul, 2013 [facility] [address] [id number] [place] [address]- 2162 31 Jun, 2013 [facility] [address] [id number] [place] [address]- 6066 14 Jun, 2013 [facility] [address] [id number] [place] [address]- 7067 14 Jun, 2013 [facility] [address] [id number] [place] [address]- 6531 Jun, [facility] [address] [id number] [place] [address]- 9968 Jun, [facility] [address] [id number] [place] [address]- 8613 May, [facility] [address] [id number] [place] [address]- 3672 May, [facility] [address] [facility] [id number] [place] [address]- 1609 May, [facility] [address] [id number] [place] [address]- 4167 May, [facility] [address] [id number] [place] [address]- 1327 May, [facility] [place] [facility] [address] [id number] [place] [address]- 9563 Apr, [facility] [place] [facility] [address] [id number] [place] [address]- 0223 Apr, [facility] [address] [id number] [place] [address]- 6009 Mar, [facility] [place] [facility] [address] [id number] [place] [address]- 8571 Mar, [facility] [place] [facility] [address] [id number] [place] [address]- 8823 Mar, [facility] [place] [facility] [address] [id number] [place] [address]- 7734 Mar, [facility] [place] [facility] [address] [id number] [place] [address]- 4677 Feb, [facility] [place] [facility] [address] [id number] [place] [address]- 7010 Jan, [facility] [place] [facility] [address] [id number] [place] [address]- 1615 Jan, [facility] [address] [facility] [id number] [place] [address]- 1462 Aug, [facility] [place] [facility] [address] [id number] [place] [address]- 8983 Jul, [facility] [place] [facility] [address] [id number] [place] [address]- 4945 Jun, [facility] [place] [facility] [address] [id number] [place] [address]- 6070 May, [facility] [place] [facility] [address] [id number] [address]- 4877 May, [facility] [place] [facility] [address] [id number] [address]- 0681 May, [facility] [place] [facility] [address] [id number] [place] 0152 May, [facility] [place] [facility] [address] [id number] [place] [address]- 8488 Apr, [facility] [place] [facility] [address] [facility] [id number] [address]- 2776 Apr, [facility] [place] [facility] [address] [id number] [address]- 6426 Mar, [facility] [address] [facility] [id number] [place] [address]- 3467 Mar, [facility] [address] [facility] [id number] [address]- 5345 Mar, [facility] [address] [place] [address]- 6476 Mar, [facility] [address] [facility] [id number] [place] [address]- 9270 Mar, [facility] [address] [facility] [id number] [place] [address]- 2131 Mar, [facility] [id number] [place] [address]- 4285 Dec, [facility] [address] [address]- 9546 Dec, [facility] [address] [address]- 6558 Nov, [facility] [address] [address]- 5552 Nov, [facility] [address] [address]- 7946 October, [facility] [address] [address]- 9716 October, [facility] [id number] [address]- 6458 Sep, [facility] [id number] [address]- 0991 Aug, [facility] [id number] [address]- 4546 Aug, [facility] [id number] [address]- 5711 Aug, IMMUNIZATIONS No Known Immunizations SOCIAL HISTORY Never Assessed REASON FOR VISIT Fpc PLAN OF CARE Activity Details Follow Up prn Reason: VITAL SIGNS MEDICATIONS Medication Instructions Dosage Frequency Start Date End Date Duration Status Nystatin 108382 UNIT/GM Externally under both breasts Twice a day till healed 1 application to affected area Feb, Active Preparation H Hydrocortisone 1 % Externally Twice a day and prn 1 application to affected area Feb, Mar, 10 days Active Triamcinolone Acetonide 0.5 % Externally under both breasts Twice a day 1 application to affected area 12h Feb, 05 days Active Pyridium 200 mg Orally Three times a day 1 tablet after meals 8h Feb, 6 Feb, 2018 2 day(s) Active Senna 8.6 MG Orally twice a day 1 capsule 12h Feb, Apr, 30 day(s) Active RESULTS No Results PROCEDURES Procedure Date Ordered Result Body Site [facility] VISIT ESTABLISHED PATIENT Mar 03, 2018 INSTRUCTIONS MEDICATIONS ADMINISTERED No Known Medications MEDICAL (GENERAL) HISTORY Type Description Date Medical History hyperlipidemia Medical History htn Medical History kidney failure stage 4 - dx in 2012 Medical History hypothyroidisim Medical History neuropathy Medical History COPD - See's Dr Burnette in [facility] Medical History Chronic Heart Failure Surgical History 2 cesareans Surgical History defibrillator - 2012 Hospitalization History pneumonia for a week 2016 Hospitalization History Hospitalized at [facility]- CHF, Chest pain. Dismissed 07/11/17 07/10/2017 Hospitalization History [facility] pneumonia, hypoxia-[facility] 07/30/17 Hospitalization History [facility]- [facility] PNA, Respiratory Failure. Transfered to [facility] 10/25/2017 Hospitalization History CHF/COPD 11/2017
--- OUTSIDE RECORDS SUMMARY | 2018-03-30 10:43 | XMS REPORT ---
Author Author LEE SILVA [facility] Address [address] [place] [address] Care Team Providers [facility] Assistant Name Role Phone LEE SILVA Unavailable PROBLEMS Type Condition ICD9-CM Code DQI46-VR Code Onset Dates Condition Status SNOMED Code Problem Psychophysiological insomnia F51.04 Active 419707117 Problem Chronic obstructive pulmonary disease, unspecified J44.9 Active 58769664 Problem Cardiomyopathy I42.9 Active 21184995 Problem Slow transit constipation K59.01 Active 70932301 Problem Acquired hypothyroidism E03.9 Active 761639348 Problem Supplemental oxygen dependent Z99.81 Active 064279017103 Problem Acute on chronic systolic CHF (congestive heart failure) I50.23 Active 721324780 Problem Chronic kidney disease, stage IV (severe) N18.4 Active 377477017 Problem COPD with acute lower respiratory infection J44.0 Active 318013362 Problem Essential hypertension I10 Active 64605254 Problem Anemia associated with chronic renal failure D63.1 Active 302560517 Problem Anxiety F41.9 Active 03914454 Problem Chronic systolic heart failure I50.22 Active 955566404 Problem Paroxysmal atrial fibrillation I48.0 Active 034273951 Problem Mild depression F32.0 Active 803467986 Problem Chronic obstructive pulmonary disease with (acute) exacerbation J44.1 Active 160754739 ALLERGIES No Information ENCOUNTERS Encounter Location Date Diagnosis [facility] [address] [place] [id number] Feb, Vertigo R42 and Chronic kidney disease, stage IV (severe) N18.4 [facility] [id number] [id number] Feb, [facility] [address] [place] [id number] Feb, Cellulitis of breast N61.0 [facility] [address], [place] [address] 18 Feb, 2018 [facility] [id number] [place] [address] 17380- 3442 16 Feb, 2018 [place] [id number] [place] [address] 23166- 7304 12 Feb, 2018 Psychophysiological insomnia F51.04 [facility] [address] [place] [id number] Feb, [place] [id number] [place] [address] 27936- 6748 10 Feb, 2018 [facility] [address] [place] [id number] 04 Feb, 2018 Chronic kidney disease, stage IV (severe) N18.4 ; Chronic systolic heart failure I50.22 ; COPD with acute lower respiratory infection J44.0 ; Vertigo R42 ; Slow transit constipation K59.01 ; Hemorrhoids, unspecified hemorrhoid type K64.9 ; Acquired hypothyroidism E03.9 ; Candidiasis of breast B37.89 and Difficulty in urination R39.198 [place] [id number] [place] [address] 54133- 1599 Jan, Acute on chronic systolic CHF (congestive heart failure) I50.23 ; Acute kidney failure, unspecified N17.9 ; Chronic kidney disease, stage III (moderate) N18.3 and Supplemental oxygen dependent Z99.81 [place] [id number] [place] [address] 48245- 4016 Jan, Acute on chronic combined systolic and diastolic CHF ( congestive heart failure) I50.43 [place] [id number] [place] [address] 59452- 8752 Jan, [facility] [id number] [place] [address] 73389 -5226 Jan, Irritant contact dermatitis due to cosmetics L24.3 ; Effusion of right wrist M25.431 and Pain in right wrist M25.531 [place] [id number] [place] [address] 12339- 8452 Dec, Chronic systolic heart failure I50.22 ; Chronic obstructive pulmonary disease with (acute) exacerbation J44.1 ; CKD (chronic kidney disease ) stage 4, GFR 15-29 ml/min N18.4 ; Cardiomyopathy I42.9 ; Dependence on supplemental oxygen Z99.81 and Psychophysiological insomnia F51.04 [place] [id number] [place] [address] 19504- 8544 Dec, Anxiety F41.9 [place] [id number] [place] [address] 58793- 9025 Dec, [place] [id number] [place] [address] 09063- 8087 Dec, [place] [id number] [place] [address] 92857- 5402 Dec, [facility] [address] [place] [id number] Dec, Encounter for examination for admission to alf Z02.2 ; Chronic obstructive pulmonary disease, unspecified J44.9 ; Paroxysmal atrial fibrillation I48.0 ; CKD (chronic kidney disease) stage 4, GFR 15-29 ml/min N18.4 and Cardiomyopathy I42.9 [place] [id number] [place] [address] 76687- 8399 Dec, [place] [id number] [place] [address] 18560- 8657 Nov, Acute on chronic combined systolic and diastolic CHF ( congestive heart failure) I50.43 [place] [address] [place] [address] 94554- 3340 Nov, [place] [id number] [place] [address] 13691- 1193 Nov, [place] [id number] [place] [address] 15290- 8576 Nov, Chronic systolic heart failure I50.22 ; Paroxysmal atrial fibrillation I48.0 ; Chronic obstructive pulmonary disease with (acute) exacerbation J44.1 ; Chronic kidney disease, stage 4 (severe) N18.4 ; Pain in right hip M25.551 and Pain in left hip M25.552 [place] [id number] [place] [address] 27183- 3002 Nov, Chronic kidney disease, stage 4 (severe) N18.4 [place] [id number] [place] [address] 69389- 0235 Nov, [place] [id number] [place] [address] 10015- 2887 Nov, [place] [id number] [place] [address] 92135- 0469 October, Chronic obstructive pulmonary disease with (acute) exacerbation J44.1 ; Chronic systolic heart failure I50.22 ; CKD (chronic kidney disease) stage 4, GFR 15-29 ml/min N18.4 and Dependence on supplemental oxygen Z99.81 [place] [id number] [place] [address] 54207- 9319 October, [place] [id number] [place] [address] 03505- 2163 October, [place] [id number] [place] [address] 06896- 0725 Sep, Chronic kidney disease, stage 4 (severe) N18.4 and Chronic kidney disease, stage IV (severe) N18.4 [place] [id number] [place] [address] 49623- 5224 Sep, Chronic kidney disease, stage 4 (severe) N18.4 [place] [id number] [place] [address] 93892- 1502 Sep, Anxiety F41.9 ; Paroxysmal atrial fibrillation I48.0 ; Chronic kidney disease, stage 4 (severe) N18.4 ; Chronic systolic heart failure I50.22 and Anemia associated with chronic renal failure D63.1 [place] [id number] [place] [address] 87135- 9946 Sep, [facility] [address], [place] [address] 2102 Aug, [facility] [id number] [place] [address] 30242- 1643 Aug, [facility] [address] [place] [id number] Aug, Acute on chronic combined systolic and diastolic CHF (congestive heart failure) I50.43 ; Essential hypertension I10 ; CKD (chronic kidney disease) stage 4, GFR 15-29 ml/min N18.4 ; Paroxysmal atrial fibrillation I48.0 and Mild depression F32.0 [facility] [id number] [place] [address] 67507- 4744 Aug, [facility] [id number] [place] [address] 17297- 9784 Aug, [facility] [id number] [place] [address] 55208- 8520 Aug, Acute on chronic respiratory failure with hypoxia J96.21 ; Acute kidney failure, unspecified N17.9 ; Chronic kidney disease, stage 4 ( severe) N18.4 ; Acute on chronic combined systolic and diastolic CHF ( congestive heart failure) I50.43 ; Paroxysmal atrial fibrillation I48.0 and Cardiomyopathy, unspecified type I42.9 [facility] [address], [place] [address] 4366 Aug, [facility] [address], [place] [address]- 6759 Jul, [facility] [address], [place] [address]- 0228 Jul, [facility] [id number] [place] [address] 66410- 6291 Jul, [facility] [address], [place] [address]- 4954 Jul, [facility] [id number] [place] [address] 27093- 5674 06 Jul, 2017 Community acquired pneumonia of right lower lobe of lung J18.1 ; CKD (chronic kidney disease) stage 4, GFR 15-29 ml/min N18.4 and Shortness of breath R06.02 [facility] [id number] [place] [address] [id number] 05 Jul, 2017 [place] [id number] [place] [address] 02562- 4949 Jun, Anxiety F41.9 [place] [address] 40795- 6581 Apr, Anxiety F41.9 [place] [address] 49101- 2339 Apr, Cough R05 and Pneumonia of right lower lobe due to infectious organism J18.1 [address] [address] [id number] [place] [address] 67117- 9063 Apr, [place] [id number] [place] [address] 54238- 1395 Apr, Chronic kidney disease, stage IV (severe) N18.4 and COPD exacerbation J44.1 [address] [id number] [place] [address] 11014- 4897 Feb, Chronic systolic heart failure I50.22 ; Essential hypertension I10 ; Anemia associated with chronic renal failure D63.1 and Chronic kidney disease, stage 4 (severe) N18.4 [place] [id number] [place] [address] 92088- 0585 Feb, Anxiety F41.9 [place] [id number] [place] [address] 54758- 0852 Feb, [place] [id number] [place] [address] 84651- 2406 Feb, [place] [id number] [place] [address] 40390- 0385 Jan, Other fatigue R53.83 ; Otalgia of both ears H92.03 and Urinary urgency R39.15 [facility] [id number] [place] [address] 74338- 9370 Jan, Acute non-recurrent maxillary sinusitis J01.00 ; Chronic systolic heart failure I50.22 ; Stage 3 chronic kidney disease N18.3 and Mild depression F32.0 [facility] [id number] [place] [address] 42136- 3442 Sep, [facility] [id number] [place] [address] 84309- 8051 Sep, [facility] [id number] [place] [address] 04793- 0996 Feb, [facility] [id number] [place] [address] 50206- 5153 Feb, [facility] [id number] [place] [address] 18279- 5371 Dec, [facility] [id number] [place] [address] 09166- 1330 Dec, [facility] [id number] [place] [address] 21734- 5747 Nov, [facility] [address], [place] [address]- 4645 Nov, [facility] [id number] [place] [address] 35558- 7017 Nov, [facility] [address], [place] [address]- 3001 Nov, [facility] [id number] [place] [address] 522211- 5712 October, [facility] [id number], [place] [address]- 9924 October, [facility] [id number] [place] [address] 91805- 2229 Sep, [facility] [place] [facility] [address] [id number] [place] [address]- 2669 Sep, [facility] [place] [facility] [address] [id number] [place] [address]- 9503 Sep, [facility] [place] [facility] [address] [id number] [place] 1338 Sep, [facility] [place] [facility] [address] [id number] [place] [address]- 1202 Sep, [facility] [place] [facility] [address] [id number] [place] [address]- 5606 Aug, [facility] [place] [facility] [address] [id number] [place] [address]- 1310 Aug, [facility] [place] [facility] [address] [id number] [place] [address]- 4851 Aug, [facility] [place] [facility] [address] [id number] [place] [address]- 7094 Aug, [facility] [place] [facility] [address] [id number] [place] [address]- 3149 Aug, [facility] [place] [facility] [address] [id number] [place] [address]- 5400 Aug, [facility] [place] [facility] [address] [id number] [place] [address]- 5479 Aug, [facility] [place] [facility] [address] [id number] [place] [address]- 3280 Aug, [facility] [place] [facility] [address] [id number] [place] 9576 Jul, [facility] [place] [facility] [address] [id number] [place] [address]- 4846 Jul, [facility] [place] [facility] [address] [id number] [place] [address]- 6507 Jul, [facility] [place] [facility] [address] [id number] [place] [address]- 2191 05 Jul, 2013 [facility] [address] [id number] [place] [address]- 5866 Jul, [facility] [address] [id number] [place] 9962 03 Jul, 2013 [facility] [address] [id number] [place] [address]- 8175 31 Jun, 2013 [facility] [address] [id number] [place] [address]- 7865 14 Jun, 2013 [facility] [address] [id number] [place] [address]- 1193 14 Jun, 2013 [facility] [address] [id number] [place] [address]- 7992 Jun, [facility] [address] [id number] [place] [address]- 7247 Jun, [facility] [address] [id number] [place] [address]- 3569 May, [facility] [address] [id number] [place] [address]- 5391 May, [facility] [address] [facility] [id number] [place] [address]- 8601 May, [facility] [address] [id number] [place] [address]- 5611 May, [facility] [address] [id number] [place] [address]- 0637 May, [facility] [place] [facility] [address] [id number] [place] [address]- 6512 Apr, [facility] [place] [facility] [address] [id number] [place] [address]- 9814 Apr, [facility] [address] [id number] [place] [address]- 2510 Mar, [facility] [place] [facility] [address] [id number] [place] [address]- 8934 Mar, [facility] [place] [facility] [address] [id number] [place] [address]- 2248 Mar, [facility] [place] [facility] [address] [id number] [place] [address]- 2517 Mar, [facility] [place] [facility] [address] [id number] [place] [address]- 5535 Feb, [facility] [place] [facility] [address] [id number] [place] [address]- 9005 Jan, [facility] [place] [facility] [address] [id number] [place] [address]- 3707 Jan, [facility] [address] [facility] [id number] [place] [address]- 9932 Aug, [facility] [place] [facility] [address] [id number] [place] [address]- 5321 Jul, [facility] [place] [facility] [address] [id number] [place] [address]- 7921 Jun, [facility] [place] [facility] [address] [id number] [place] [address]- 8613 May, [facility] [place] [facility] [address] [id number], [place] [address]- 3178 May, [facility] [place] [facility] [address] [id number], [place] [address]- 4969 May, [facility] [place] [facility] [address] [id number] [place] 4435 May, [facility] [place] [facility] [address] [id number] [place] [address]- 9408 Apr, [facility] [place] [facility] [address] [facility] [id number] [address]- 9487 Apr, [facility] [place] [facility] [address] [id number], [place] [address]- 7326 Mar, [facility] [address] [facility] [id number] [place] [address]- 8558 Mar, [facility] [address] [facility] [id number], [place] [address]- 4097 Mar, [facility] [address] [place] [address]- 4276 Mar, [facility] [address] [facility] [id number] [place] [address]- 0916 Mar, [facility] [address] [facility] [id number] [place] [address]- 8655 Mar, [facility] [id number] [place] [address]- 0781 Dec, [facility] [address], [place] [address]- 9541 Dec, [facility] [address], [place] [address]- 5044 Nov, [facility] [address], [place] [address]- 3466 Nov, [facility] [address], [place] [address]- 2026 October, [facility] [address], [place] [address]- 1296 October, [facility] [id number], [place] [address]- 0305 Sep, [facility] [id number], [place] [address]- 9595 Aug, [facility] [id number], [place] [address]- 7156 Aug, [facility] [id number], [place] [address]- 8151 Aug, IMMUNIZATIONS No Known Immunizations SOCIAL HISTORY Never Assessed REASON FOR VISIT Controlled Med Refill PLAN OF CARE VITAL SIGNS MEDICATIONS Medication Instructions Dosage Frequency Start Date End Date Duration Status Oxycodone HCl 5 mg Orally every 6 hrs 1 tablet as needed 6h Feb, 28 days Active RESULTS No Results PROCEDURES No Known procedures INSTRUCTIONS MEDICATIONS ADMINISTERED No Known Medications MEDICAL (GENERAL) HISTORY Type Description Date Medical History hyperlipidemia Medical History htn Medical History kidney failure stage 4 - dx in 2012 Medical History hypothyroidisim Medical History neuropathy Medical History COPD - See's Dr Burnette in [facility] Medical History Chronic Heart Failure Surgical History 2 cesareans Surgical History defibrillator - 2012 Hospitalization History pneumonia for a week 2016 Hospitalization History Hospitalized at [facility]- CHF, Chest pain. Dismissed 07/11/17 07/10/2017 Hospitalization History [facility] pneumonia, hypoxia-[facility] 07/30/17 Hospitalization History [facility]- RLL PNA, Respiratory Failure. Transfered to [facility] 10/25/2017 Hospitalization History CHF/COPD 11/2017
--- OUTSIDE RECORDS SUMMARY | 2018-03-30 10:43 | XMS REPORT ---
Author Author TEAGAN VERNON [facility] Address [address] [place] [address] Care Team Providers Care Compensator Worker Name Role Phone TEAGAN VERNON Unavailable PROBLEMS Type Condition ICD9-CM Code DNQ52-AX Code Onset Dates Condition Status SNOMED Code Problem Psychophysiological insomnia F51.04 Active 811828178 Problem Chronic obstructive pulmonary disease, unspecified J44.9 Active 74038808 Problem Cardiomyopathy I42.9 Active 64814352 Problem Slow transit constipation K59.01 Active 28948215 Problem Acquired hypothyroidism E03.9 Active 263638622 Problem Supplemental oxygen dependent Z99.81 Active 869953973550 Problem Acute on chronic systolic CHF (congestive heart failure) I50.23 Active 410096972 Problem Chronic kidney disease, stage IV (severe) N18.4 Active 712237765 Problem COPD with acute lower respiratory infection J44.0 Active 181788610 Problem Essential hypertension I10 Active 25723369 Problem Anemia associated with chronic renal failure D63.1 Active 130320700 Problem Anxiety F41.9 Active 44848810 Problem Chronic systolic heart failure I50.22 Active 003079368 Problem Paroxysmal atrial fibrillation I48.0 Active 814579672 Problem Mild depression F32.0 Active 707410863 Problem Chronic obstructive pulmonary disease with (acute) exacerbation J44.1 Active 683410173 ALLERGIES No Information ENCOUNTERS Encounter Location Date Diagnosis [facility] [address] [place] [id number] Feb, Vertigo R42 and Chronic kidney disease, stage IV (severe) N18.4 [facility] [address] [facility] [id number] [address] Feb, [facility] [address] [facility] [place] [id number] Feb, Cellulitis of breast N61.0 [facility] [address] [facility] [id number], [place] [address] 18 Feb, 2018 [place] [id number] [place] [address] 26605- 1445 16 Feb, 2018 [place] [address] [place] [id number] [place] [address] 90349- 0095 Feb, Psychophysiological insomnia F51.04 [facility] [address] [place] [id number] Feb, [place] [address] [place] [id number] [place] [address] 02367- 2951 10 Feb, 2018 [facility] [address] [place] [id number] Feb, Chronic kidney disease, stage IV (severe) N18.4 ; Chronic systolic heart failure I50.22 ; COPD with acute lower respiratory infection J44.0 ; Vertigo R42 ; Slow transit constipation K59.01 ; Hemorrhoids, unspecified hemorrhoid type K64.9 ; Acquired hypothyroidism E03.9 ; Candidiasis of breast B37.89 and Difficulty in urination R39.198 [place] [address] [place] [id number] [place] [address] 68544- 8778 Jan, Acute on chronic systolic CHF (congestive heart failure) I50.23 ; Acute kidney failure, unspecified N17.9 ; Chronic kidney disease, stage III (moderate) N18.3 and Supplemental oxygen dependent Z99.81 [place] [id number] [place] [address] 04043- 8766 Jan, Acute on chronic combined systolic and diastolic CHF ( congestive heart failure) I50.43 [place] [id number] [place] [address] 68626- 8791 Jan, [facility] [id number] [place] [address] 88036 -9322 Jan, Irritant contact dermatitis due to cosmetics L24.3 ; Effusion of right wrist M25.431 and Pain in right wrist M25.531 [place] [address] [place] [id number] [place] [address] 93998- 7264 Dec, Chronic systolic heart failure I50.22 ; Chronic obstructive pulmonary disease with (acute) exacerbation J44.1 ; CKD (chronic kidney disease ) stage 4, GFR 15-29 ml/min N18.4 ; Cardiomyopathy I42.9 ; Dependence on supplemental oxygen Z99.81 and Psychophysiological insomnia F51.04 [place] [id number] [place] [address] 84780- 3573 Dec, Anxiety F41.9 [place] [address] [place] [id number] [place] [address] 03406- 6448 Dec, [place] [address] [place] [id number] [place] [address] 41549- 9639 Dec, [place] [address] [place] [id number] [place] [address] 89486- 0723 Dec, [facility] [address] [place] [id number] Dec, Encounter for examination for admission to [facility] Z02.2 ; Chronic obstructive pulmonary disease, unspecified J44.9 ; Paroxysmal atrial fibrillation I48.0 ; CKD (chronic kidney disease) stage 4, GFR 15-29 ml/min N18.4 and Cardiomyopathy I42.9 [place] [address] [place] [id number] [place] [address] 08552- 5973 Dec, [place] [address] [place] [id number] [place] [address] 82197- 8733 Nov, Acute on chronic combined systolic and diastolic CHF ( congestive heart failure) I50.43 [place] [id number] [place] [address] 97160- 7633 Nov, [place] [address] [place] [id number] [place] [address] 46444- 1823 Nov, [place] [id number] [place] [address] 68197- 9288 Nov, Chronic systolic heart failure I50.22 ; Paroxysmal atrial fibrillation I48.0 ; Chronic obstructive pulmonary disease with (acute) exacerbation J44.1 ; Chronic kidney disease, stage 4 (severe) N18.4 ; Pain in right hip M25.551 and Pain in left hip M25.552 [place] [address] [place] [id number] [place] [address] 48419- 6854 Nov, Chronic kidney disease, stage 4 (severe) N18.4 [facility] [address] [place] [id number] [place] [address] 08631- 2564 Nov, [place] [address] 72514- 2440 Nov, [place] [address] [place] [id number] [place] [address] 15376- 5617 October, Chronic obstructive pulmonary disease with (acute) exacerbation J44.1 ; Chronic systolic heart failure I50.22 ; CKD (chronic kidney disease) stage 4, GFR 15-29 ml/min N18.4 and Dependence on supplemental oxygen Z99.81 [place] [address] [place] [id number] [place] [address] 78282- 5725 October, [place] [address] [place] [id number] [place] [address] 82866- 1713 October, [place] [address] [place] [id number] [place] [address] 69400- 7942 Sep, Chronic kidney disease, stage 4 (severe) N18.4 and Chronic kidney disease, stage IV (severe) N18.4 [place] [address] [place] [id number] [place] [address] 33236- 1242 Sep, Chronic kidney disease, stage 4 (severe) N18.4 [place] [address] [place] [id number] [place] [address] 07485- 9130 Sep, Anxiety F41.9 ; Paroxysmal atrial fibrillation I48.0 ; Chronic kidney disease, stage 4 (severe) N18.4 ; Chronic systolic heart failure I50.22 and Anemia associated with chronic renal failure D63.1 [place] [address] [place] [id number] [place] [address] 49762- 3987 Sep, [place] [address] [address] 4436 Aug, [facility] [address] [place] [id number] [place] [address] 87064- 7063 Aug, [facility] [address] [place] [id number] Aug, Acute on chronic combined systolic and diastolic CHF (congestive heart failure) I50.43 ; Essential hypertension I10 ; CKD (chronic kidney disease) stage 4, GFR 15-29 ml/min N18.4 ; Paroxysmal atrial fibrillation I48.0 and Mild depression F32.0 [facility] [address] [place] [id number] [place] [address] 23973- 5595 Aug, [facility] [address] [place] [address] [id number] [place] [address] 51644- 9676 Aug, [place] [address] [place] [id number] [place] [address] 13500- 3421 Aug, Acute on chronic respiratory failure with hypoxia J96.21 ; Acute kidney failure, unspecified N17.9 ; Chronic kidney disease, stage 4 ( severe) N18.4 ; Acute on chronic combined systolic and diastolic CHF ( congestive heart failure) I50.43 ; Paroxysmal atrial fibrillation I48.0 and Cardiomyopathy, unspecified type I42.9 [facility] [address], [place] [address] Aug, [facility] [address], [place] [address] 7168 Jul, [facility] [address], [place] [address] 0217 Jul, [facility] [address] [place] [id number] [place] [address] 58383- 3255 Jul, [facility] [address], [place] [address] 7653 Jul, [facility] [address] [place] [id number] [place] [address] 21684- 8863 Jul, Community acquired pneumonia of right lower lobe of lung J18.1 ; CKD (chronic kidney disease) stage 4, GFR 15-29 ml/min N18.4 and Shortness of breath R06.02 [facility] [address] [place] [id number] [place] [address] [id number] 05 Jul, 2017 [place] [address] [place] [id number] [place] [address] 29433- 1420 Jun, Anxiety F41.9 [place] [address] 74488- 4531 Apr, Anxiety F41.9 [place] [address] 36018- 9386 Apr, Cough R05 and Pneumonia of right lower lobe due to infectious organism J18.1 [place] [id number] [place] [address] 54822- 6572 Apr, [place] [address] 54014- 8198 Apr, Chronic kidney disease, stage IV (severe) N18.4 and COPD exacerbation J44.1 [place] [id number] [place] [address] 09208- 8477 Feb, Chronic systolic heart failure I50.22 ; Essential hypertension I10 ; Anemia associated with chronic renal failure D63.1 and Chronic kidney disease, stage 4 (severe) N18.4 [place] [address] [place] [id number] [place] [address] 42552- 8106 Feb, Anxiety F41.9 [place] [address] [place] [id number] [place] [address] 78335- 9576 Feb, [place] [address] [place] [id number] [place] [address] 19323- 2830 Feb, [place] [address] [place] [id number] [place] [address] 86489- 4237 Jan, Other fatigue R53.83 ; Otalgia of both ears H92.03 and Urinary urgency R39.15 [facility] [address], [place] [address]- 8205 Jan, Acute non-recurrent maxillary sinusitis J01.00 ; Chronic systolic heart failure I50.22 ; Stage 3 chronic kidney disease N18.3 and Mild depression F32.0 [facility] [address], [place] [address]- 5491 14 Sep, 2014 [facility] [address] [facility] [id number], [place] [address]- 0261 Sep, [facility] [address] [place] [id number] [place] [address] 03967- 5366 Feb, [facility] [address] [id number] [address]- 8224 Feb, [facility] [id number] [address]- 1277 Dec, [facility] [address], [place] [address]- 4264 Dec, [facility] [address] [place] [id number] [address]- 0673 Nov, [facility] [address], [place] [address]- 1549 Nov, [facility] [address], [place] [address]- 0355 Nov, [facility] [address], [place] [address]- 5832 Nov, [facility] [address], [place] [address]- 1593 October, [facility] [address], [place] [address]- 0527 October, [facility] [address], [place] [address]- 0321 Sep, [facility] [place] [facility] [address] [id number] [place] [address]- 9283 Sep, [facility] [place] [facility] [address] [id number] [place] [address]- 8241 Sep, [facility] [place] [facility] [address] [id number] [place] [address]- 3573 Sep, [facility] [place] [facility] [address] [id number] [place] [address]- 7416 Sep, [facility] [place] [facility] [address] [id number] [place] [address]- 2894 Aug, [facility] [place] [facility] [address] [id number] [place] [address]- 9852 Aug, [facility] [place] [facility] [address] [id number] [place] [address]- 4740 Aug, [facility] [place] [facility] [address] [id number] [place] [address]- 4653 Aug, [facility] [place] [facility] [address] [id number] [place] [address]- 8785 Aug, [facility] [place] [facility] [address] [id number] [place] [address]- 4506 Aug, [facility] [place] [facility] [address] [id number] [place] [address]- 0604 Aug, [facility] [place] [facility] [address] [id number] [place] [address]- 6073 Aug, [facility] [place] [facility] [address] [id number] [place] [address]- 5076 Jul, [facility] [place] [facility] [address] [id number] [place] [address]- 5606 Jul, [facility] [place] [facility] [address] [id number] [place] [address]- 4656 Jul, [facility] [place] [facility] [address] [id number], [place] [address]- 4901 05 Jul, 2013 [facility] [address] [id number] [place] [address]- 2987 Jul, [facility] [place] [facility] [address] [id number] [place] [address]- 1800 Jul, [facility] [address] [id number] [place] [address]- 3336 Jun, [facility] [place] [facility] [address] [id number] [place] [address]- 0171 Jun, [facility] [place] [facility] [address] [id number] [place] [address]- 3565 Jun, [facility] [place] [facility] [address] [id number] [place] [address]- 8629 Jun, [facility] [address] [id number] [place] [address]- 0898 Jun, [facility] [place] [facility] [address] [id number] [place] [address]- 7472 May, [facility] [place] [facility] [address] [id number] [place] [address]- 6242 May, [facility] [place] [facility] [address] [facility] [id number] [place] [address]- 0392 May, [facility] [place] [facility] [address] [id number] [place] [address]- 8795 May, [facility] [place] [facility] [address] [id number] [place] [address]- 3120 May, [facility] [place] [facility] [address] [id number] [place] [address]- 4650 Apr, [facility] [place] [facility] [address] [id number] [place] [address]- 6411 Apr, [facility] [place] [facility] [address] [id number], [place] [address]- 6489 Mar, [facility] [place] [facility] [address] [id number] [place] [address]- 1547 Mar, [facility] [place] [facility] [address] [id number] [place] [address]- 9166 Mar, [facility] [place] [facility] [address] [id number] [place] [address]- 7596 Mar, [facility] [place] [facility] [address] [id number] [place] [address]- 9035 Feb, [facility] [place] [facility] [address] [id number] [place] [address]- 0432 Jan, [facility] [place] [facility] [address] [id number] [place] [address]- 9883 Jan, [facility] [address] [id number] [place] [address]- 1526 Aug, [facility] [place] [facility] [address] [id number] [place] [address]- 2473 Jul, [facility] [address] [id number] [place] [address]- 1438 Jun, [facility] [address] [id number] [place] [address]- 4975 May, [facility] [place] [facility] [address] [id number] [place] [address]- 3039 May, [facility] [place] [facility] [address] [id number] [place] [address]- 1902 May, [facility] [place] [facility] [address] [id number] [place] [address]- 4429 May, [facility] [place] [facility] [address] [id number] [place] [address]- 8573 Apr, [facility] [place] [facility] [address] [id number] [place] [address]- 5328 Apr, [facility] [place] [facility] [address] [id number], [place] [address]- 1416 Mar, [facility] [address] [facility] [id number] [place] [address]- 2674 Mar, [facility] [address] [facility] [id number], [place] [address]- 5096 Mar, [facility] [address] [facility] [id number] [place] [address]- 6326 Mar, [facility] [address] [facility] [id number], [place] [address]- 0050 Mar, [facility] [address] [facility] [id number] [place] [address]- 4682 Mar, [facility] [address] [facility] [id number], [place] [address]- 5836 Dec, [facility] [address] [facility] [id number], [place] [address]- 9276 Dec, [facility] [address] [facility] [id number], [place] [address]- 2259 Nov, [facility] [address] [facility] [id number], [place] [address]- 5895 Nov, [facility] [address] [facility] [id number], [place] [address]- 4236 October, [facility] [address] [facility] [id number], [place] [address]- 9066 October, [facility] [address] [facility] [id number], [place] [address]- 4998 Sep, [facility] [address] [facility] [id number], [place] [address]- 4266 Aug, [facility] [address] [facility] [id number], [place] [address]- 0166 Aug, [facility] [address] [id number], [place] [address]- 8356 Aug, IMMUNIZATIONS No Known Immunizations SOCIAL HISTORY Never Assessed REASON FOR VISIT CCM note PLAN OF CARE VITAL SIGNS MEDICATIONS Unknown Medications RESULTS No Results PROCEDURES No Known procedures INSTRUCTIONS MEDICATIONS ADMINISTERED No Known Medications MEDICAL (GENERAL) HISTORY Type Description Date Medical History hyperlipidemia Medical History htn Medical History kidney failure stage 4 - dx in 2012 Medical History hypothyroidisim Medical History neuropathy Medical History COPD - See's Dr Burnette in [facility] Medical History Chronic Heart Failure Surgical History 2 cesareans Surgical History defibrillator - 2012 Hospitalization History pneumonia for a week 2016 Hospitalization History Hospitalized at [facility]- CHF, Chest pain. Dismissed 07/11/17 07/10/2017 Hospitalization History [facility] pneumonia, [facility] 07/30/17 Hospitalization History [facility]- [facility] PNA, Respiratory Failure. Transfered to [place] 10/25/2017 Hospitalization History CHF/COPD 11/2017
[2018-03-30 10:44] LABS: ALANINE AMINOTRANSFERASE 19 U/L (0-55); ALBUMIN 3.6 GM/DL (3.2-4.5); ALKALINE PHOSPHATASE 121 U/L (40-136); BILIRUBIN,TOTAL 0.7 MG/DL (0.1-1.0); BUN/CREATININE RATIO 5; CALCIUM 9.3 MG/DL (8.5-10.1); CARBON DIOXIDE 24 MMOL/L (21-32); CHLORIDE 95 MMOL/L (98-107); CREATININE SERUM 3.06 MG/DL (0.60-1.30); GFR ESTIMATED 16; GLUCOSE 205 MG/DL (70-105); LIPASE 82 U/L (8-78); MAGNESIUM 2.2 MG/DL (1.8-2.4); PHOSPHORUS 3.2 MG/DL (2.3-4.7); POTASSIUM 4.8 MMOL/L (3.6-5.0); SODIUM 131 MMOL/L (135-145); TOTAL PROTEIN 6.7 GM/DL (6.4-8.2)
--- OUTSIDE RECORDS SUMMARY | 2018-03-30 10:44 | XMS REPORT ---
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 Name Role Phone TEAGAN VERNON Unavailable PROBLEMS Type Condition ICD9-CM Code RMN54-SN Code Onset Dates Condition Status SNOMED Code Problem Psychophysiological insomnia F51.04 Active 671161741 Problem Chronic obstructive pulmonary disease, unspecified J44.9 Active 59550050 Problem Cardiomyopathy I42.9 Active 51388638 Problem Slow transit constipation K59.01 Active 40015769 Problem Acquired hypothyroidism E03.9 Active 982528346 Problem Supplemental oxygen dependent Z99.81 Active 126232838601 Problem Acute on chronic systolic CHF (congestive heart failure) I50.23 Active 309616487 Problem Chronic kidney disease, stage IV (severe) N18.4 Active 834380914 Problem COPD with acute lower respiratory infection J44.0 Active 836181278 Problem Essential hypertension I10 Active 21445158 Problem Anemia associated with chronic renal failure D63.1 Active 150490638 Problem Anxiety F41.9 Active 73495228 Problem Chronic systolic heart failure I50.22 Active 584097262 Problem Paroxysmal atrial fibrillation I48.0 Active 497091778 Problem Mild depression F32.0 Active 158299805 Problem Chronic obstructive pulmonary disease with (acute) exacerbation J44.1 Active 745199323 ALLERGIES Substance Reaction Event Type Date Status Propoxyphene HCl Unknown Drug Allergy Jan, Active Meperidine HCl Unknown Drug Allergy Jan, Active Lisinopril Unknown Drug Allergy Jan, Active Demerol Unknown Drug Allergy Jan, Active Darvocet-N 100 Unknown Drug Allergy Jan, Active Bee Venom Unknown Non Drug Allergy Jan, Active ENCOUNTERS Encounter Location Date Diagnosis [facility] [address] [facility] [id number] [place] [address] Feb, Psychophysiological insomnia F51.04 [facility] [address] [id number] Feb, [place] [address] [address] Feb, [facility] [address] [facility] [id number] Feb, Chronic kidney disease, stage IV (severe) N18.4 ; Chronic systolic heart failure I50.22 ; COPD with acute lower respiratory infection J44.0 ; Vertigo R42 ; Slow transit constipation K59.01 ; Hemorrhoids, unspecified hemorrhoid type K64.9 ; Acquired hypothyroidism E03.9 ; Candidiasis of breast B37.89 and Difficulty in urination R39.198 [place] [address] [address] Jan, Acute on chronic systolic CHF (congestive heart failure) I50.23 ; Acute kidney failure, unspecified N17.9 ; Chronic kidney disease, stage III (moderate) N18.3 and Supplemental oxygen dependent Z99.81 [place] [address] [address] 03 Jan, 2018 Acute on chronic combined systolic and diastolic CHF ( congestive heart failure) I50.43 [place] [address] [address] Jan, [facility] [address] [place] [id number] [place] [address] Jan, Irritant contact dermatitis due to cosmetics L24.3 ; Effusion of right wrist M25.431 and Pain in right wrist M25.531 [place] [address] [address] Dec, Chronic systolic heart failure I50.22 ; Chronic obstructive pulmonary disease with (acute) exacerbation J44.1 ; CKD (chronic kidney disease ) stage 4, GFR 15-29 ml/min N18.4 ; Cardiomyopathy I42.9 ; Dependence on supplemental oxygen Z99.81 and Psychophysiological insomnia F51.04 [place] [address] [address] Dec, Anxiety F41.9 [place] [address] [address] Dec, [place] [address] [place] [id number] [place] [address]- 7342 Dec, [place] [address] [place] [id number] [place] [address]51- 2062 Dec, [facility] [address] [facility] [address] [place] [id number] Dec, Encounter for examination for admission to [facility] Z02.2 ; Chronic obstructive pulmonary disease, unspecified J44.9 ; Paroxysmal atrial fibrillation I48.0 ; CKD (chronic kidney disease) stage 4, GFR 15-29 ml/min N18.4 and Cardiomyopathy I42.9 [place] [id number] [place] [address]- [address] Dec, [place] [id number] [place] [address] 99798- 6780 Nov, Acute on chronic combined systolic and diastolic CHF ( congestive heart failure) I50.43 [place] [id number] [place] [address] 87686- 6847 Nov, [place] [address] [place] [id number] [place] [address] 70452- 4945 Nov, [place] [address] [place] [id number] [place] [address] 02886- 7560 Nov, Chronic systolic heart failure I50.22 ; Paroxysmal atrial fibrillation I48.0 ; Chronic obstructive pulmonary disease with (acute) exacerbation J44.1 ; Chronic kidney disease, stage 4 (severe) N18.4 ; Pain in right hip M25.551 and Pain in left hip M25.552 [place] [address] [place] [address] 34885- 4238 Nov, Chronic kidney disease, stage 4 (severe) N18.4 [place] [address] [place] [id number] [place] [address]60- 0062 Nov, [facility] [address] [address] Nov, [facility] [id number] [place] [address] 02787- 5797 October, Chronic obstructive pulmonary disease with (acute) exacerbation J44.1 ; Chronic systolic heart failure I50.22 ; CKD (chronic kidney disease) stage 4, GFR 15-29 ml/min N18.4 and Dependence on supplemental oxygen Z99.81 [facility] [address] [place] [id number] [place] [address] 37185- 7977 October, [facility] [address] [place] [id number] [place] [address] 75257- 6788 October, [facility] [address] [place] [id number] [place] [address] 40360- 5290 Sep, Chronic kidney disease, stage 4 (severe) N18.4 and Chronic kidney disease, stage IV (severe) N18.4 [facility] [address] [place] [address] 48311- 7024 Sep, Chronic kidney disease, stage 4 (severe) N18.4 [facility] [address] [place] [address] 48313- 6239 Sep, Anxiety F41.9 ; Paroxysmal atrial fibrillation I48.0 ; Chronic kidney disease, stage 4 (severe) N18.4 ; Chronic systolic heart failure I50.22 and Anemia associated with chronic renal failure D63.1 [facility] [address] [address] Sep, [facility] [address] [place] [id number] [place] [address] 97364- 0853 Aug, [facility] [address] [place] [address] 00073- 3069 Aug, [facility] [address] [place] [id number] Aug, Acute on chronic combined systolic and diastolic CHF (congestive heart failure) I50.43 ; Essential hypertension I10 ; CKD (chronic kidney disease) stage 4, GFR 15-29 ml/min N18.4 ; Paroxysmal atrial fibrillation I48.0 and Mild depression F32.0 [facility] [address] [place] [address] 49646- 1035 26 Aug, 2017 [facility] [address] [place] [address] 75476- 6431 Aug, [facility] [address] [place] [id number] [place] [address] 67007- 2132 14 Aug, 2017 Acute on chronic respiratory failure with hypoxia J96.21 ; Acute kidney failure, unspecified N17.9 ; Chronic kidney disease, stage 4 ( severe) N18.4 ; Acute on chronic combined systolic and diastolic CHF ( congestive heart failure) I50.43 ; Paroxysmal atrial fibrillation I48.0 and Cardiomyopathy, unspecified type I42.9 [facility] [address] [place] [id number] [place] [address] 04325- 4966 Aug, [facility] [address] [place] [address] 09834- 4656 14 Jul, 2017 [facility] [address] [place] [id number] [place] [address] 69969- 5133 Jul, [facility] [address] [place] [address] 05358- 1042 Jul, [facility] [address] [place] [address] 94057- 2722 Jul, [facility] [address] [place] [address] 36333- 3556 06 Jul, 2017 Community acquired pneumonia of right lower lobe of lung J18.1 ; CKD (chronic kidney disease) stage 4, GFR 15-29 ml/min N18.4 and Shortness of breath R06.02 [facility] [address] [id number] [address] Jul, 2017 [facility] [address] [place] [id number] [place] [address] 74483- 7825 Jun, Anxiety F41.[address] [address]- 59[address] Apr, Anxiety F41.9 [place] [address] [address]- 0394 10 Apr, 2017 Cough R05 and Pneumonia of right lower lobe due to infectious organism J18.1 [place] [address] 19134- 3233 07 Apr, [address] [address]148- 3511 Apr, Chronic kidney disease, stage IV (severe) N18.4 and COPD exacerbation J44.[address] [address]- 4718 Feb, Chronic systolic heart failure I50.22 ; Essential hypertension I10 ; Anemia associated with chronic renal failure D63.1 and Chronic kidney disease, stage 4 (severe) N18.4 [place] [id number] [place] [address] 16957- 3110 Feb, Anxiety F41.9 [place] [id number] [place] [address] 87144- 3154 Feb, [place] [id number] [place] [address] 13882- 2503 Feb, [place] [id number] [place] [address] 65141- 4655 Jan, Other fatigue R53.83 ; Otalgia of both ears H92.03 and Urinary urgency R39.15 [place] [id number] [place] [address] 22183- 4541 Jan, Acute non-recurrent maxillary sinusitis J01.00 ; Chronic systolic heart failure I50.22 ; Stage 3 chronic kidney disease N18.3 and Mild depression F32.[address] [id number] [place] [address]- 4702 14 Sep, 2014 [facility] [place] [facility] [address] [id number] [place] [address]- 5114 13 Sep, 2014 [facility] [place] [facility] [address] [id number] [place] [address]- 1179 Feb, [facility] [place] [facility] [address] [id number] [place] [address]- 5910 Feb, [facility] [place] [facility] [address] [id number] [place] [address]- 6500 Dec, [facility] [place] [facility] [address] [id number] [place] [address]- 4638 Dec, [facility] [place] [facility] [address] [id number] [place] [address]- 0068 Nov, [facility] [place] [facility] [address] [id number] [place] [address]- 4936 Nov, [facility] [place] [facility] [address] [id number] [place] [address]- 6782 Nov, [facility] [place] [facility] [address] [id number] [place] [address]- 8243 Nov, [facility] [place] [facility] [address] [id number] [place] [address]- 1341 October, [facility] [place] [facility] [address] [id number] [place] [address]- 2172 October, [facility] [place] [facility] [address] [id number] [place] [address]- 1285 Sep, [facility] [place] [facility] [address] [id number] [place] [address]- 8540 Sep, [facility] [place] [facility] [address] [id number] [place] [address]- 8862 Sep, [facility] [place] [facility] [address] [id number] [place] [address]- 8786 Sep, [facility] [place] [facility] [address] [id number] [place] [address]- 9396 Sep, [facility] [place] [facility] [address] [id number] [place] [address]- 6803 Aug, [facility] [place] [facility] [address] [id number] [place] [address]- 5519 Aug, [facility] [place] [facility] [address] [id number] [place] [address]- 0667 Aug, [facility] [place] [facility] [address] [id number] [place] [address]- 0399 Aug, [facility] [place] [facility] [address] [id number] [place] [address]- 0341 Aug, [facility] [place] [facility] [address] [id number] [place] [address]- 8650 Aug, [facility] [place] [facility] [address] [id number] [place] [address]- 2495 Aug, [facility] [place] [facility] [address] [id number] [place] [address]- 5142 Aug, [facility] [place] [facility] [address] [id number] [place] [address]- 9426 Jul, [facility] [place] [facility] [address] [id number] [place] [address]- 0288 Jul, [facility] [place] [facility] [address] [id number] [place] [address]- 4983 Jul, [facility] [place] [facility] [address] [id number] [place] [address]68 Jul, [facility] [place] [facility] [address] [id number] [place] [address] Jul, [facility] [place] [facility] [address] [id number] [place] [address]- 3301 Jul, [facility] [place] [facility] [address] [id number] [place] [address]- 7116 31 Jun, 2013 [facility] [address] [id number] [place] [address]- 3526 14 Jun, 2013 [facility] [address] [id number] [place] [address]- 9971 14 Jun, 2013 [facility] [address] [id number] [place] [address]- 0557 Jun, [facility] [address] [id number] [place] [address]- 3785 13 Jun, 2013 [facility] [address] [id number] [place] [address]- 8101 May, [facility] [address] [id number] [place] [address]- 6184 May, [facility] [address] [id number] [place] [address]- 3612 May, [facility] [address] [id number] [place] [address]- 0873 May, [facility] [address] [id number] [place] [address]- 2864 May, [facility] [address] [id number] [place] [address]- 8360 Apr, [facility] [address] [id number] [place] [address]- 8304 Apr, [facility] [address] [id number] [place] [address]- 7689 Mar, [facility] [place] [facility] [address] [id number] [place] [address]- 6431 Mar, [facility] [place] [facility] [address] [id number] [place] [address]- 3586 Mar, [facility] [address] [id number] [place] [address]- 0361 Mar, [facility] [place] [facility] [address] [id number] [place] [address]- 2806 16 Feb, 2013 [facility] [place] [facility] [address] [id number] [place] [address]- 1964 Jan, [facility] [place] [facility] [address] [id number] [place] [address]- 9581 Jan, [facility] [place] [facility] [address] [id number] [place] [address]- 3529 Aug, [facility] [place] [facility] [address] [id number] [place] [address]- 5946 Jul, [facility] [place] [facility] [address] [id number] [place] [address]- 4618 Jun, [facility] [place] [facility] [address] [id number] [place] [address]- 2861 May, [facility] [place] [facility] [address] [id number] [place] [address]- 0035 May, [facility] [place] [facility] [address] [id number] [place] [address]- 2757 May, [facility] [place] [facility] [address] [id number] [place] [address]- 1772 May, [facility] [place] [facility] [address] [id number] [place] [address]- 7628 Apr, [facility] [place] [facility] [address] [id number] [place] [address]- 7257 Apr, [facility] [place] [facility] [address] [id number] [place] [address]- 3216 Mar, [facility] [place] [facility] [address] [id number] [place] [address]16 Mar, [facility] [place] [facility] [address] [id number] [place] [address]- 3221 Mar, [facility] [place] [facility] [address] [id number] [address]- 0446 Mar, [facility] [address] [address]- 3246 Mar, [facility] [address] [address]- 7206 Mar, [facility] [address] [address]- 2546 Dec, [facility] [address], [place] [address] 2546 Dec, [facility] [address] [address]- 9968 Nov, [facility] [address] [address]- 2546 Nov, [facility] [address], [place] [address]- 9466 October, [facility] [address] [address]- 3916 October, [facility] [address] [address]- 4166 Sep, [facility] [address] [address]- 1936 Aug, [facility] [address] [address]- 2716 Aug, [facility] [id number] [address] 2546 Aug, IMMUNIZATIONS No Known Immunizations SOCIAL HISTORY Never Assessed REASON FOR VISIT follow up-Ramón PLAN OF CARE Activity Details Follow Up will schedule hospital follow up Reason: VITAL SIGNS Height 60 in 2018-02-02 Weight 176.6 lbs 2018-02-02 Temperature 98.0 degrees Fahrenheit 2018-02-02 Heart Rate 75 bpm 2018-02-02 Respiratory Rate 24 2018-02-02 Oximetry 95 % 2018-02-02 BMI 34.49 kg/m2 2018-02-02 Blood pressure systolic 100 mmHg 2018-02-02 Blood pressure diastolic 68 mmHg 2018-02-02 MEDICATIONS Medication Instructions Dosage Frequency Start Date End Date Duration Status Multivitamin Women - Active Carvedilol 12.5 MG Orally 2 times a day 1 capsule 12h Active Ferrous Sulfate 325 (65 Fe) MG Orally Once a day 1 tablet 24h Active Tums 500 MG Orally Once a day 1 tablet 24h Active Pantoprazole Sodium 40 MG Orally Once a day 1 tablet 24h Active Magnesium Oxide 400 MG Orally Once a day 1 tablet as needed 24h Active Isosorbide Mononitrate ER 30 MG Orally twice a day 0.5 tablets 12h Active Cetirizine HCl 10 mg Orally Once a day 1 tablet 24h Jan, Jan, 07 days Active Lorazepam 0.5 MG Orally everyday at bedtime 1 tablet Aug, 28 days Active Levothyroxine Sodium 25 MCG Orally Once a day 1 tablet on an empty stomach in the morning 24h Active ProAir HFA 108 (90 Base) MCG/ACT Inhalation every 6 hrs 2 puffs as needed 6h Active Ipratropium-Albuterol 0.5-2.5 (3) MG/3ML Inhalation every 6 hrs 3 ml 6h 30 days Active Sertraline HCl 100 mg Orally Once a day 1 1/2 tablets 24h 30 days Active Furosemide 40 MG Orally Once a day 1 tablet 24h Active Loperamide HCl 2 MG Orally Four times a day 1 capsule as needed 6h Active Tylenol Extra Strength 500 MG Orally every 6 hrs 2 tablets as needed 6h Active Betamethasone Dipropionate Aug 0.05 % Externally Once a day 1 application to affected area 24h Jan, 8 Jan, 2018 07 days Active Amiodarone HCl 200 mg Orally Once a day 1 tablet 24h 90 days Active Oxycodone HCl 5 mg Orally every 6 hrs 1 tablet as needed 6h Dec, Jan, 28 days Active RESULTS No Results PROCEDURES Procedure Date Ordered Result Body Site [facility] VISIT ESTABLISHED PATIENT Feb 02, 2018 INSTRUCTIONS MEDICATIONS ADMINISTERED No Known Medications MEDICAL (GENERAL) HISTORY Type Description Date Medical History hyperlipidemia Medical History htn Medical History kidney failure stage 4 - dx in 2012 Medical History hypothyroidisim Medical History neuropathy Medical History COPD - See's Dr Burnette in [facility] Medical History Chronic Heart Failure Surgical History 2 cesareans Surgical History defibrillator - 2012 Hospitalization History pneumonia for a week 2017 Hospitalization History Hospitalized at [facility]- CHF, Chest pain. Dismissed 07/11/17 07/10/2017 Hospitalization History [facility] pneumonia, hypoxia-[facility] 07/30/17 Hospitalization History [facility]- [facility] PNA, Respiratory Failure. Transfered to [place] 10/25/2017 Hospitalization History CHF/COPD 11/2017
[2018-03-30 10:45] LABS: ABG PCO2 73 MMHG (35-45); ALLENS TEST YES-POS; INSPIRED O2 70% BIPAP; PATIENT TEMP 97.8; VENTILATOR NO
[2018-03-30] MEDS ORDERED: CEFEPIME INJECTION 2,000 MG in NS (IVPB) 50 ML IV ONE (10:45)
--- OUTSIDE RECORDS SUMMARY | 2018-03-30 10:45 | XMS REPORT ---
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 Name Role Phone RICARDO ROBERSON Unavailable PROBLEMS Type Condition ICD9-CM Code EIB36-GN Code Onset Dates Condition Status SNOMED Code Problem Psychophysiological insomnia F51.04 Active 485993546 Problem Chronic obstructive pulmonary disease, unspecified J44.9 Active 18435619 Problem Cardiomyopathy I42.9 Active 98527969 Problem Slow transit constipation K59.01 Active 34216752 Problem Acquired hypothyroidism E03.9 Active 453428405 Problem Supplemental oxygen dependent Z99.81 Active 027645825079 Problem Acute on chronic systolic CHF (congestive heart failure) I50.23 Active 739875776 Problem Chronic kidney disease, stage IV (severe) N18.4 Active 028950018 Problem COPD with acute lower respiratory infection J44.0 Active 852371662 Problem Essential hypertension I10 Active 34653616 Problem Anemia associated with chronic renal failure D63.1 Active 811451114 Problem Anxiety F41.9 Active 63226611 Problem Chronic systolic heart failure I50.22 Active 804482284 Problem Paroxysmal atrial fibrillation I48.0 Active 684147474 Problem Mild depression F32.0 Active 467078171 Problem Chronic obstructive pulmonary disease with (acute) exacerbation J44.1 Active 464905065 ALLERGIES Substance Reaction Event Type Date Status Propoxyphene HCl Unknown Drug Allergy Jan, Active Meperidine HCl Unknown Drug Allergy Jan, Active Lisinopril Unknown Drug Allergy Jan, Active Demerol Unknown Drug Allergy Jan, Active Darvocet-N 100 Unknown Drug Allergy Jan, Active Bee Venom Unknown Non Drug Allergy Jan, Active ENCOUNTERS Encounter Location Date Diagnosis [facility] [place] [address] [facility] [id number] [place] [address] Feb, Psychophysiological insomnia F51.04 [facility] [address] [facility] [id number] Feb, [place] [id number] [place] [address] Feb, [facility] [address] [address] [place] [id number] 04 Feb, 2018 Chronic kidney disease, stage IV (severe) N18.4 ; Chronic systolic heart failure I50.22 ; COPD with acute lower respiratory infection J44.0 ; Vertigo R42 ; Slow transit constipation K59.01 ; Hemorrhoids, unspecified hemorrhoid type K64.9 ; Acquired hypothyroidism E03.9 ; Candidiasis of breast B37.89 and Difficulty in urination R39.[address] [address] Jan, Acute on chronic systolic CHF (congestive heart failure) I50.23 ; Acute kidney failure, unspecified N17.9 ; Chronic kidney disease, stage III (moderate) N18.3 and Supplemental oxygen dependent Z99.81 [place] [id number] [place] [address] 18168- 0933 03 Jan, 2018 Acute on chronic combined systolic and diastolic CHF ( congestive heart failure) I50.43 [place] [id number] [place] [address] 99675- 8886 Jan, [facility] [id number] [place] [address] -9668 Jan, Irritant contact dermatitis due to cosmetics L24.3 ; Effusion of right wrist M25.431 and Pain in right wrist M25.531 [place] [id number] [place] [address] 71639- 9646 Dec, Chronic systolic heart failure I50.22 ; Chronic obstructive pulmonary disease with (acute) exacerbation J44.1 ; CKD (chronic kidney disease ) stage 4, GFR 15-29 ml/min N18.4 ; Cardiomyopathy I42.9 ; Dependence on supplemental oxygen Z99.81 and Psychophysiological insomnia F51.[address] [address]- [address] Dec, Anxiety F41.9 [place] [id number] [address] Dec, [place] [id number] [place] [address] 33891- 4604 Dec, [place] [id number] [place] [address] 12441- 3836 Dec, [facility] [address] [facility] [place] [id number] Dec, Encounter for examination for admission to [facility] Z02.2 ; Chronic obstructive pulmonary disease, unspecified J44.9 ; Paroxysmal atrial fibrillation I48.0 ; CKD (chronic kidney disease) stage 4, GFR 15-29 ml/min N18.4 and Cardiomyopathy I42.9 [place] [id number] [place] [address] 12489- 2637 Dec, [place] [id number] [place] [address] 70882- 2220 Nov, Acute on chronic combined systolic and diastolic CHF ( congestive heart failure) I50.43 [place] [id number] [place] [address] 17990- 8849 Nov, [place] [id number] [place] [address] 94587- 2260 Nov, [place] [id number] [place] [address] 96383- 0724 Nov, Chronic systolic heart failure I50.22 ; Paroxysmal atrial fibrillation I48.0 ; Chronic obstructive pulmonary disease with (acute) exacerbation J44.1 ; Chronic kidney disease, stage 4 (severe) N18.4 ; Pain in right hip M25.551 and Pain in left hip M25.552 [place] [id number] [address] 7[address] Nov, Chronic kidney disease, stage 4 (severe) N18.4 [place] [id number] [place] [address] 44848- 0726 Nov, [facility] [place] [id number] [address] Nov, [facility] [place] [id number] [place] [address] 98781- 7877 October, Chronic obstructive pulmonary disease with (acute) exacerbation J44.1 ; Chronic systolic heart failure I50.22 ; CKD (chronic kidney disease) stage 4, GFR 15-29 ml/min N18.4 and Dependence on supplemental oxygen Z99.81 [facility] [place] [id number] [address] October, [facility] [place] [id number] [place] [address] 29304- 8440 October, [facility] [place] [id number] [place] [address] 17070- 2242 Sep, Chronic kidney disease, stage 4 (severe) N18.4 and Chronic kidney disease, stage IV (severe) N18.4 [facility] [place] [id number] [address] 7974 Sep, Chronic kidney disease, stage 4 (severe) N18.4 [facility] [place] [address] [address] 3933 Sep, Anxiety F41.9 ; Paroxysmal atrial fibrillation I48.0 ; Chronic kidney disease, stage 4 (severe) N18.4 ; Chronic systolic heart failure I50.22 and Anemia associated with chronic renal failure D63.1 [facility] [place] [address] [address] 5[address] Sep, [facility] [place] [address] [address] 6976 Aug, [facility] [place] [address] [address] Aug, [facility] [address] [place] [id number] Aug, Acute on chronic combined systolic and diastolic CHF (congestive heart failure) I50.43 ; Essential hypertension I10 ; CKD (chronic kidney disease) stage 4, GFR 15-29 ml/min N18.4 ; Paroxysmal atrial fibrillation I48.0 and Mild depression F32.0 [facility] [place] [id number] [place] [address] 43161- 7322 26 Aug, 2017 [facility] [place] [id number] [place] [address] 55839- 4722 Aug, [facility] [place] [id number] [place] [address] 16615- 2017 Aug, Acute on chronic respiratory failure with hypoxia J96.21 ; Acute kidney failure, unspecified N17.9 ; Chronic kidney disease, stage 4 ( severe) N18.4 ; Acute on chronic combined systolic and diastolic CHF ( congestive heart failure) I50.43 ; Paroxysmal atrial fibrillation I48.0 and Cardiomyopathy, unspecified type I42.9 [facility] [place] [id number] [place] [address] 84523- 1208 Aug, [facility] [place] [id number] [place] [address] 94531- 8202 14 Jul, 2017 [facility] [place] [id number] [place] [address] 39716- 3581 Jul, [facility] [place] [id number] [place] [address] 85648- 4949 Jul, [facility] [place] [id number] [place] [address] 55867- 8691 Jul, [facility] [place] [id number] [place] [address] 38448- 0060 Jul, Community acquired pneumonia of right lower lobe of lung J18.1 ; CKD (chronic kidney disease) stage 4, GFR 15-29 ml/min N18.4 and Shortness of breath R06.02 [facility] [address] [place] [id number] [place] [address] [id number] Jul, 2017 [facility] [place] [id number] [place] [address] 33932- 2771 Jun, Anxiety F41.9 [place] [address] [address]- 9264 Apr, Anxiety F41.9 [place] [id number] [place] [address] 81233- 5996 10 Apr, 2017 Cough R05 and Pneumonia of right lower lobe due to infectious organism J18.1 [place] [address] [address]- 3438 07 Apr, 2017 [place] [address] [address]- 9264 Apr, Chronic kidney disease, stage IV (severe) N18.4 and COPD exacerbation J44.[address] 51074- 1674 Feb, Chronic systolic heart failure I50.22 ; Essential hypertension I10 ; Anemia associated with chronic renal failure D63.1 and Chronic kidney disease, stage 4 (severe) N18.[address] 20076- 6266 Feb, Anxiety F41.9 [place] [id number] [place] [address] 50551- 4781 Feb, [place] [id number] [place] [address] 31846- 8980 Feb, [place] [id number] [place] [address] 02863- 4525 Jan, Other fatigue R53.83 ; Otalgia of both ears H92.03 and Urinary urgency R39.15 [place] [id number] [place] [address] 65775- 0403 Jan, Acute non-recurrent maxillary sinusitis J01.00 ; Chronic systolic heart failure I50.22 ; Stage 3 chronic kidney disease N18.3 and Mild depression F32.0 [facility] [place] [facility] [address] [id number] [place] [address]- 3169 14 Sep, 2014 [facility] [place] [facility] [address] [id number] [place] [address]- 6925 13 Sep, 2014 [facility] [place] [facility] [address] [id number] [place] [address]- 6723 17 Feb, 2014 [facility] [place] [facility] [address] [id number] [place] [address]- 0644 Feb, [facility] [place] [facility] [address] [id number] [place] [address]- 1546 Dec, [facility] [place] [facility] [address] [id number] [place] [address]- 9061 Dec, [facility] [place] [facility] [address] [id number] [place] [address]- 4482 Nov, [facility] [place] [facility] [address] [id number] [place] [address]- 5792 Nov, [facility] [place] [facility] [address] [id number] [place] [address]- 5222 Nov, [facility] [place] [facility] [address] [id number] [place] [address]- 0003 Nov, [facility] [place] [facility] [address] [id number] [place] [address]- 6286 October, [facility] [place] [facility] [address] [id number] [place] [address]- 2869 October, [facility] [place] [facility] [address] [id number] [place] [address]- 4555 Sep, [facility] [place] [facility] [address] [id number] [place] [address]- 3500 Sep, [facility] [place] [facility] [address] [id number] [place] [address]- 4623 Sep, [facility] [place] [facility] [address] [id number] [place] [address]- 5828 Sep, [facility] [place] [facility] [address] [id number] [place] [address]- 9999 Sep, [facility] [place] [facility] [address] [id number] [place] [address]- 6313 Aug, [facility] [place] [facility] [address] [id number] [place] [address]- 4676 Aug, [facility] [place] [facility] [address] [id number] [place] [address]- 4800 Aug, [facility] [place] [facility] [address] [id number] [place] [address]- 8130 Aug, [facility] [place] [facility] [address] [id number] [place] [address]- 2541 Aug, [facility] [place] [facility] [address] [id number] [place] [address]- 6617 Aug, [facility] [place] [facility] [address] [id number] [place] [address]- 3214 Aug, [facility] [place] [facility] [address] [id number] [place] [address]- 3271 Aug, [facility] [place] [facility] [address] [id number] [place] [address]- 7721 Jul, [facility] [place] [facility] [address] [id number] [place] [address]- 5658 Jul, [facility] [place] [facility] [address] [id number] [place] [address]- 4727 Jul, [facility] [place] [facility] [address] [id number] [place] [address]- 9721 Jul, [facility] [place] [facility] [address] [id number] [place] [address]- 6086 Jul, [facility] [place] [facility] [address] [id number] [place] [address]- 6962 Jul, [facility] [place] [facility] [address] [id number] [place] [address]- 1272 31 Jun, 2013 [facility] [place] [facility] [address] [id number] [place] [address]- 0078 14 Jun, 2013 [facility] [place] [facility] [address] [id number] [place] [address]- 6051 14 Jun, 2013 [facility] [place] [facility] [address] [id number] [place] [address]- 4101 Jun, [facility] [place] [facility] [address] [id number] [place] [address]- 6892 Jun, [facility] [place] [facility] [address] [id number] [place] [address] May, [facility] [place] [facility] [address] [id number] [place] [address]- 5955 May, [facility] [place] [facility] [address] [id number] [place] [address]- 3128 May, [facility] [address] [id number] [place] [address]- 2626 May, [facility] [place] [facility] [address] [id number] [place] [address]- 3865 May, [facility] [address] [id number] [place] [address]- 8067 Apr, [facility] [place] [facility] [address] [id number] [place] [address]- 3132 Apr, [facility] [place] [facility] [address] [id number] [place] [address]- 0831 Mar, [facility] [place] [facility] [address] [id number] [place] [address]- 2411 Mar, [facility] [place] [facility] [address] [id number] [place] [address]- 8136 Mar, [facility] [place] [facility] [address] [id number] [place] [address]- 9709 Mar, [facility] [place] [facility] [address] [id number] [place] [address]- 1483 16 Feb, 2013 [facility] [place] [facility] [address] [id number] [place] [address]- 3698 Jan, [facility] [place] [facility] [address] [id number] [place] 4396 Jan, [facility] [place] [facility] [address] [id number] [place] [address]- 3070 Aug, [facility] [place] [facility] [address] [id number] [place] [address]- 7009 Jul, [facility] [place] [facility] [address] [id number] [place] [address]- 8504 Jun, [facility] [place] [facility] [address] [id number] [place] [address]- 3465 May, [facility] [place] [facility] [address] [id number] [place] [address]- 6106 May, [facility] [place] [facility] [address] [id number] [place] [address]- 2153 May, [facility] [place] [facility] [address] [facility] [id number] [place] [address]- 3771 May, [facility] [place] [facility] [address] [id number] [address]- 8726 Apr, [facility] [place] [facility] [address] [id number] [address]- 7871 Apr, [facility] [place] [facility] [address] [id number] [place] [address]- 7317 Mar, [facility] [place] [facility] [address] [id number] [place] [address]- 6546 Mar, [facility] [place] [facility] [address] [facility] [id number] [place] [address]- 4831 Mar, [facility] [place] [facility] [id number] [address]- 2546 Mar, [facility] [place] [id number] [address]- 2546 Mar, [facility] [place] [id number] [address]- 2546 Mar, [facility] [place] [id number] [address]- 2546 Dec, [facility] [place] [id number] [address]- 2546 Dec, [facility] [place] [id number] [address]- 2546 Nov, [facility] [place] [id number] [address]- 2546 Nov, [facility] [place] [id number] [address]- 2546 October, [facility] [place] [id number] [address]- 2546 October, [facility] [place] [address] [address]- 2546 Sep, [facility] [place] [id number] [address]- 2546 Aug, [facility] [place] [id number] [address]- 2546 Aug, [facility] [place] [id number] [address]- 2546 Aug, IMMUNIZATIONS No Known Immunizations SOCIAL HISTORY Never Assessed REASON FOR VISIT Rash/swollen hand-The patient has a rash on the medial side of her right leg and is having some swelling in her right hand and slightly in her left. The rash on her lower leg hurts.--YARELIS Tarango PLAN OF CARE Activity Details Follow Up 02/02 w/ Dr. Bell Reason:AWV VITAL SIGNS Height 60 in 2018-01-28 Weight 168.4 lbs 2018-01-28 Temperature 97.4 degrees Fahrenheit 2018-01-28 Heart Rate 68 bpm 2018-01-28 Respiratory Rate 20 2018-01-28 BMI 32.88 kg/m2 2018-01-28 Blood pressure systolic 106 mmHg 2018-01-28 Blood pressure diastolic 54 mmHg 2018-01-28 MEDICATIONS Medication Instructions Dosage Frequency Start Date End Date Duration Status Multivitamin Women - Active Carvedilol 12.5 MG Orally 2 times a day 1 capsule 12h Active Levothyroxine Sodium 25 MCG Orally Once a day 1 tablet on an empty stomach in the morning 24h Active Isosorbide Mononitrate ER 30 MG Orally twice a day 0.5 tablets 12h Active Tylenol Extra Strength 500 MG Orally every 6 hrs 2 tablets as needed 6h Active Magnesium Oxide 400 MG Orally Once a day 1 tablet as needed 24h Active Amiodarone HCl 200 mg Orally Once a day 1 tablet 24h 90 days Active ProAir HFA 108 (90 Base) MCG/ACT Inhalation every 6 hrs 2 puffs as needed 6h Active Furosemide 40 MG Orally Once a day 1 tablet 24h Active Tums 500 MG Orally Once a day 1 tablet 24h Active Ferrous Sulfate 325 (65 Fe) MG Orally Once a day 1 tablet 24h Active Ipratropium-Albuterol 0.5-2.5 (3) MG/3ML Inhalation every 6 hrs 3 ml 6h 30 days Active Betamethasone Dipropionate Aug 0.05 % Externally Once a day 1 application to affected area 24h Jan, Jan, 07 days Active Oxycodone HCl 5 mg Orally every 6 hrs 1 tablet as needed 6h Dec, Jan, 28 days Active Pantoprazole Sodium 40 MG Orally Once a day 1 tablet 24h Active Cetirizine HCl 10 mg Orally Once a day 1 tablet 24h Jan, Jan, 07 days Active Loperamide HCl 2 MG Orally Four times a day 1 capsule as needed 6h Active Sertraline HCl 100 mg Orally Once a day 1 1/2 tablets 24h 30 days Active Lorazepam 0.5 MG Orally everyday at bedtime 1 tablet Aug, 28 days Active RESULTS No Results PROCEDURES Procedure Date Ordered Result Body Site [facility] VISIT ESTABLISHED PATIENT Jan 28, 2018 INSTRUCTIONS MEDICATIONS ADMINISTERED No Known Medications MEDICAL (GENERAL) HISTORY Type Description Date Medical History hyperlipidemia Medical History htn Medical History kidney failure stage 4 - dx in 2012 Medical History hypothyroidisim Medical History neuropathy Medical History COPD - See's Dr Burnette in [facility] Medical History Chronic Heart Failure Surgical History 2 cesareans Surgical History defibrillator - 2012 Hospitalization History pneumonia for a week 2017 Hospitalization History Hospitalized at [facility]- CHF, Chest pain. Dismissed 07/11/17 07/10/2017 Hospitalization History [facility] pneumonia, hypoxia-[facility] 07/30/17 Hospitalization History [facility]- [facility] PNA, Respiratory Failure. Transfered to [place] 10/25/2017 Hospitalization History CHF/COPD 11/2017
--- OUTSIDE RECORDS SUMMARY | 2018-03-30 10:45 | XMS REPORT ---
Author Author GUS LARSON Organization [facility] Address [address] [place] [address] Care Team Providers Care Photogrammetric Surveyor Name Role Phone GUS LARSON Unavailable PROBLEMS Type Condition ICD9-CM Code XJG88-IN Code Onset Dates Condition Status SNOMED Code Problem Psychophysiological insomnia F51.04 Active 128138191 Problem Chronic obstructive pulmonary disease, unspecified J44.9 Active 25558442 Problem Cardiomyopathy I42.9 Active 70043012 Problem Slow transit constipation K59.01 Active 31325413 Problem Acquired hypothyroidism E03.9 Active 744940916 Problem Supplemental oxygen dependent Z99.81 Active 082259824493 Problem Acute on chronic systolic CHF (congestive heart failure) I50.23 Active 463786659 Problem Chronic kidney disease, stage IV (severe) N18.4 Active 703924488 Problem COPD with acute lower respiratory infection J44.0 Active 724826392 Problem Essential hypertension I10 Active 62476067 Problem Anemia associated with chronic renal failure D63.1 Active 960338046 Problem Anxiety F41.9 Active 88339846 Problem Chronic systolic heart failure I50.22 Active 913019504 Problem Paroxysmal atrial fibrillation I48.0 Active 714501534 Problem Mild depression F32.0 Active 948001442 Problem Chronic obstructive pulmonary disease with (acute) exacerbation J44.1 Active 495014245 ALLERGIES Substance Reaction Event Type Date Status Propoxyphene HCl Unknown Drug Allergy Jan, Active Meperidine HCl Unknown Drug Allergy Jan, Active Lisinopril Unknown Drug Allergy Jan, Active Demerol Unknown Drug Allergy Jan, Active Darvocet-N 100 Unknown Drug Allergy Jan, Active Bee Venom Unknown Non Drug Allergy Jan, Active ENCOUNTERS Encounter Location Date Diagnosis [facility] [address] [facility] [id number] [place] [address] Feb, Psychophysiological insomnia F51.04 [facility] [address] [id number] Feb, [place] [address] [address] Feb, [facility] [address] [place] [id number] Feb, Chronic kidney disease, stage IV (severe) N18.4 ; Chronic systolic heart failure I50.22 ; COPD with acute lower respiratory infection J44.0 ; Vertigo R42 ; Slow transit constipation K59.01 ; Hemorrhoids, unspecified hemorrhoid type K64.9 ; Acquired hypothyroidism E03.9 ; Candidiasis of breast B37.89 and Difficulty in urination R39.198 [place] [address] [address] Jan, Acute on chronic systolic CHF (congestive heart failure) I50.23 ; Acute kidney failure, unspecified N17.9 ; Chronic kidney disease, stage III (moderate) N18.3 and Supplemental oxygen dependent Z99.81 [place] [address] [address] 03 Jan, 2018 Acute on chronic combined systolic and diastolic CHF ( congestive heart failure) I50.43 [place] [address] [address]- [address] Jan, [facility] [address] [place] [id number] [place] [address] Jan, Irritant contact dermatitis due to cosmetics L24.3 ; Effusion of right wrist M25.431 and Pain in right wrist M25.531 [place] [address] [address] Dec, Chronic systolic heart failure I50.22 ; Chronic obstructive pulmonary disease with (acute) exacerbation J44.1 ; CKD (chronic kidney disease ) stage 4, GFR 15-29 ml/min N18.4 ; Cardiomyopathy I42.9 ; Dependence on supplemental oxygen Z99.81 and Psychophysiological insomnia F51.04 [place] [address] [address] Dec, Anxiety F41.9 [place] [address] [address] Dec, [place] [address] [place] [id number] [place] [address] 24226- 6420 Dec, [place] [address] [place] [id number] [place] [address] 36696- 0846 Dec, [facility] [address] [place] [id number] Dec, Encounter for examination for admission to long-term Z02.2 ; Chronic obstructive pulmonary disease, unspecified J44.9 ; Paroxysmal atrial fibrillation I48.0 ; CKD (chronic kidney disease) stage 4, GFR 15-29 ml/min N18.4 and Cardiomyopathy I42.9 [place] [address] [place] [id number] [place] [address] 36687- 8529 Dec, [place] [address] [place] [id number] [place] [address] 14104- 1583 Nov, Acute on chronic combined systolic and diastolic CHF ( congestive heart failure) I50.43 [place] [id number] [place] [address] 65562- 6335 Nov, [place] [id number] [place] [address] 00197- 8344 Nov, [place] [address] [place] [id number] [place] [address] 57692- 2369 Nov, Chronic systolic heart failure I50.22 ; Paroxysmal atrial fibrillation I48.0 ; Chronic obstructive pulmonary disease with (acute) exacerbation J44.1 ; Chronic kidney disease, stage 4 (severe) N18.4 ; Pain in right hip M25.551 and Pain in left hip M25.552 [place] [address] [address] Nov, Chronic kidney disease, stage 4 (severe) N18.4 [place] [address] [place] [id number] [place] [address] 29846- 2769 Nov, [facility] [id number] [place] [address] 04869- 3020 Nov, [facility] [address] [place] [id number] [place] [address] 17546- 2004 October, Chronic obstructive pulmonary disease with (acute) exacerbation J44.1 ; Chronic systolic heart failure I50.22 ; CKD (chronic kidney disease) stage 4, GFR 15-29 ml/min N18.4 and Dependence on supplemental oxygen Z99.81 [facility] [address] [place] [id number] [place] [address] 71970- 9297 October, [facility] [address] [place] [id number] [place] [address] 69340- 9651 October, [facility] [address] [place] [id number] [place] [address] 02487- 3621 Sep, Chronic kidney disease, stage 4 (severe) N18.4 and Chronic kidney disease, stage IV (severe) N18.4 [facility] [address] [place] [address] 33852- 8834 Sep, Chronic kidney disease, stage 4 (severe) N18.4 [facility] [address] [place] [address] 14663- 5302 Sep, Anxiety F41.9 ; Paroxysmal atrial fibrillation I48.0 ; Chronic kidney disease, stage 4 (severe) N18.4 ; Chronic systolic heart failure I50.22 and Anemia associated with chronic renal failure D63.1 [facility] [address] [address] 95[address] Sep, [facility] [address] [place] [id number] [place] [address] 75530- 9518 Aug, [facility] [address] [place] [id number] [place] [address] 83363- 4507 Aug, [facility] [address] [place] [id number] Aug, Acute on chronic combined systolic and diastolic CHF (congestive heart failure) I50.43 ; Essential hypertension I10 ; CKD (chronic kidney disease) stage 4, GFR 15-29 ml/min N18.4 ; Paroxysmal atrial fibrillation I48.0 and Mild depression F32.0 [facility] [address] [place] [address] 89528- 5241 26 Aug, 2017 [facility] [address] [place] [id number] [place] [address] 34120- 4785 Aug, [facility] [address] [place] [id number] [place] [address] 67087- 3298 Aug, Acute on chronic respiratory failure with hypoxia J96.21 ; Acute kidney failure, unspecified N17.9 ; Chronic kidney disease, stage 4 ( severe) N18.4 ; Acute on chronic combined systolic and diastolic CHF ( congestive heart failure) I50.43 ; Paroxysmal atrial fibrillation I48.0 and Cardiomyopathy, unspecified type I42.9 [facility] [address] [place] [id number] [place] [address] 21353- 5747 Aug, [facility] [address] [place] [id number] [place] [address] 56591- 5485 14 Jul, 2017 [facility] [address] [place] [id number] [place] [address] 59663- 3318 Jul, [facility] [address] [address] 2[address] Jul, [facility] [address] [place] [id number] [place] [address] 94891- 2709 Jul, [facility] [address] [place] [id number] [place] [address] 61662- 1856 06 Jul, 2017 Community acquired pneumonia of right lower lobe of lung J18.1 ; CKD (chronic kidney disease) stage 4, GFR 15-29 ml/min N18.4 and Shortness of breath R06.02 [facility] [address] [place] [id number] [place] [address] [id number] 05 Jul, 2017 [facility] [address] [place] [id number] [place] [address] 79712- 6099 Jun, Anxiety F41.9 [place] [address] [address]- 6[address] Apr, Anxiety F41.9 [place] [address] [address]- [address] 10 Apr, 2017 Cough R05 and Pneumonia of right lower lobe due to infectious organism J18.1 [place] [address] 69348- 5599 07 Apr, [address] [address]- [address] Apr, Chronic kidney disease, stage IV (severe) N18.4 and COPD exacerbation J44.[address] [address]- 0516 Feb, Chronic systolic heart failure I50.22 ; Essential hypertension I10 ; Anemia associated with chronic renal failure D63.1 and Chronic kidney disease, stage 4 (severe) N18.4 [place] [id number] [place] [address] 47783- 3387 Feb, Anxiety F41.9 [place] [address] [address]25- 9211 Feb, [address] 0[address]- 37[address] Feb, [place] [address] [place] [id number] [place] [address] 49096- 2348 Jan, Other fatigue R53.83 ; Otalgia of both ears H92.03 and Urinary urgency R39.[address] 47[address]- 4143 Jan, Acute non-recurrent maxillary sinusitis J01.00 ; Chronic systolic heart failure I50.22 ; Stage 3 chronic kidney disease N18.3 and Mild depression F32.0 [place] [id number] [address] 14 Sep, 2014 [facility] [address] [id number] [place] [address] 13 Sep, 2014 [facility] [place] [facility] [address] [id number] [place] [address]- 4706 Feb, [facility] [address] [id number] [place] [address]- 5940 Feb, [facility] [place] [facility] [address] [id number] [place] [address]- 9523 Dec, [facility] [address] [id number] [place] [address]- 3522 Dec, [facility] [address] [id number] [place] [address]- 2237 Nov, [facility] [place] [facility] [address] [id number] [place] [address]- 0177 Nov, [facility] [address] [id number] [place] [address]- 0827 Nov, [facility] [place] [facility] [address] [id number] [place] [address]- 9727 Nov, [facility] [address] [id number] [place] [address]- 6750 October, [facility] [place] [facility] [address] [id number] [place] [address]- 1373 October, [facility] [place] [facility] [address] [id number] [place] [address]- 7548 Sep, [facility] [place] [facility] [address] [id number] [place] [address]- 7366 Sep, [facility] [place] [facility] [address] [id number] [place] [address]- 5847 Sep, [facility] [place] [facility] [address] [id number] [place] [address]- 0890 Sep, [facility] [place] [facility] [address] [id number] [place] [address] Sep, [facility] [place] [facility] [address] [id number] [place] [address]- 5181 Aug, [facility] [place] [facility] [address] [id number] [place] [address]- 4201 Aug, [facility] [place] [facility] [address] [id number] [place] [address]- 3296 Aug, [facility] [place] [facility] [address] [id number] [place] [address]- 0390 Aug, [facility] [place] [facility] [address] [id number] [place] [address]- 7250 Aug, [facility] [place] [facility] [address] [id number] [place] [address]- 4910 Aug, [facility] [place] [facility] [address] [id number] [place] [address]- 3708 Aug, [facility] [place] [facility] [address] [id number] [place] [address]- 2107 Aug, [facility] [place] [facility] [address] [id number] [place] [address]- 0218 Jul, [facility] [place] [facility] [address] [id number] [place] [address]- 3236 Jul, [facility] [place] [facility] [address] [id number] [place] [address]- 0038 Jul, [facility] [place] [facility] [address] [id number] [place] [address]- 8030 Jul, [facility] [place] [facility] [address] [id number] [place] [address]- 9437 Jul, [facility] [place] [facility] [address] [id number] [place] [address]- 2142 Jul, [facility] [place] [facility] [address] [id number] [place] [address]- 2262 31 Jun, 2013 [facility] [address] [id number] [place] [address]- 9996 14 Jun, 2013 [facility] [address] [id number] [place] [address]- 9860 14 Jun, 2013 [facility] [address] [id number] [place] [address]- 1617 13 Jun, 2013 [facility] [address] [id number] [place] [address]- 9665 13 Jun, 2013 [facility] [address] [id number] [place] [address]40 May, [facility] [address] [id number] [place] [address]- 3764 May, [facility] [address] [id number] [place] [address]- 4538 May, [facility] [address] [id number] [place] [address]- 0870 May, [facility] [address] [id number] [place] [address]- 6427 May, [facility] [address] [facility] [id number] [place] [address]- 4936 Apr, [facility] [place] [facility] [address] [id number] [place] [address]- 7753 Apr, [facility] [address] [id number] [place] [address]- 9383 Mar, [facility] [place] [facility] [address] [id number] [place] [address]- 7869 Mar, [facility] [place] [facility] [address] [id number] [place] [address]- 8405 Mar, [facility] [address] [id number] [place] [address]- 8563 Mar, [facility] [place] [facility] [address] [id number] [place] [address]- 3373 16 Feb, 2013 [facility] [place] [facility] [address] [id number] [place] [address]- 4446 Jan, [facility] [place] [facility] [address] [id number] [place] [address]- 8090 Jan, [facility] [place] [facility] [address] [id number] [place] [address]- 9576 Aug, [facility] [place] [facility] [address] [id number] [place] [address]- 2268 Jul, [facility] [place] [facility] [address] [id number] [place] [address]- 7026 Jun, [facility] [place] [facility] [address] [id number] [place] [address]- 3110 May, [facility] [place] [facility] [address] [id number] [place] [address]- 4437 May, [facility] [place] [facility] [address] [id number] [place] [address]- 2083 May, [facility] [place] [facility] [address] [facility] [id number] [address]- 6167 May, [facility] [place] [facility] [address] [facility] [id number] [address]- 1696 Apr, [facility] [place] [facility] [address] [id number] [place] [address]- 1751 Apr, [facility] [place] [facility] [address] [id number] [place] [address]- 8091 Mar, [facility] [place] [facility] [address] [id number] [place] [address]- 9626 Mar, [facility] [place] [facility] [address] [facility] [id number] [address]- 9406 Mar, [facility] [place] [facility] [address] [id number] [place] [address]- 4516 Mar, [facility] [address] [place] [id number] [address]- 4906 Mar, [facility] [address] [address]- 8726 Mar, [facility] [address] [address]- 2546 Dec, [facility] [address] [address]- 2546 Dec, [facility] [address] [address]- 3296 Nov, [facility] [address] [address]- 2546 Nov, [facility] [address] [address]- 2026 October, [facility] [address] [address]- 2546 October, [facility] [address] [address]- 6122 Sep, [facility] [address] [address]- 8146 Aug, [facility] [address] [place] [id number] [address]- 7896 Aug, [facility] [address] [place] [id number] [address]- 2546 Aug, IMMUNIZATIONS No Known Immunizations SOCIAL HISTORY Never Assessed REASON FOR VISIT Leg swelling- Was seen in walk in yesterday and was told she had gout in right hand and swelling in bilateral Lower extremities, pt feels that she is short of breath more than usual- Emilie Johnson RN PLAN OF CARE Activity Details Follow Up Friday02/02/18 Reason:dyspnea VITAL SIGNS Height 60 in 2018-01-30 Weight 169 lbs 2018-01-30 Temperature 98.0 degrees Fahrenheit 2018-01-30 Heart Rate 72 bpm 2018-01-30 Respiratory Rate 24 2018-01-30 Oximetry w/ oxygen @ 3L:92 % 2018-01-30 BMI 33.00 kg/m2 2018-01-30 Blood pressure systolic 102 mmHg 2018-01-30 Blood pressure diastolic 60 mmHg 2018-01-30 MEDICATIONS Medication Instructions Dosage Frequency Start Date End Date Duration Status Ferrous Sulfate 325 (65 Fe) MG Orally Once a day 1 tablet 24h Active Multivitamin Women - Active Oxycodone HCl 5 mg Orally every 6 hrs 1 tablet as needed 6h Dec, Jan, 28 days Active Levothyroxine Sodium 25 MCG Orally Once a day 1 tablet on an empty stomach in the morning 24h Active ProAir HFA 108 (90 Base) MCG/ACT Inhalation every 6 hrs 2 puffs as needed 6h Active Lorazepam 0.5 MG Orally everyday at bedtime 1 tablet Aug, 28 days Active Tums 500 MG Orally Once a day 1 tablet 24h Active Amiodarone HCl 200 mg Orally Once a day 1 tablet 24h 90 days Active Carvedilol 12.5 MG Orally 2 times a day 1 capsule 12h Active Furosemide 40 MG Orally Once a day 1 tablet 24h Active Cetirizine HCl 10 mg Orally Once a day 1 tablet 24h Jan, Jan, 07 days Active Betamethasone Dipropionate Aug 0.05 % Externally Once a day 1 application to affected area 24h Jan, Jan, 07 days Active Pantoprazole Sodium 40 MG Orally [...] 1 1/2 tablets 24h 30 days Active Loperamide HCl 2 MG Orally Four times a day 1 capsule as needed 6h Active Isosorbide Mononitrate ER 30 MG Orally twice a day 0.5 tablets 12h Active RESULTS Name Result Date Reference Range Xray : Chest 2 View (IN HOUSE) 2018-01-30 PROCEDURES Procedure Date Ordered Result Body Site X-RAY EXAM CHEST 2 VIEWS Jan 30, 2018 [facility] VISIT ESTABLISHED PATIENT Jan 30, 2018 INSTRUCTIONS MEDICATIONS ADMINISTERED No Known Medications MEDICAL (GENERAL) HISTORY Type Description Date Medical History hyperlipidemia Medical History htn Medical History kidney failure stage 4 - dx in 2012 Medical History hypothyroidisim Medical History neuropathy Medical History COPD - See's Dr Burnette in [facility] Medical History Chronic Heart Failure Surgical History 2 cesareans Surgical History defibrillator - 2012 Hospitalization History pneumonia for a week 2017 Hospitalization History Hospitalized at [facility]- CHF, Chest pain. Dismissed 07/11/17 07/10/2017 Hospitalization History [facility] pneumonia, hypoxia-[facility] 07/30/17 Hospitalization History [facility]- [facility] PNA, Respiratory Failure. Transfered to [facility] 10/25/2017 Hospitalization History CHF/COPD 11/2017
[2018-03-30 10:46] LABS: BACTERIA,URINE MODERATE /HPF; CLARITY,URINE CLOUDY; WBC,URINE 25-50 /HPF
--- OUTSIDE RECORDS SUMMARY | 2018-03-30 10:46 | XMS REPORT ---
Author Author CHRIS FRAGA Organization [facility] Address [address] [place] [address] Care Team Providers Care Program Management Manager Name Role Phone CHRIS FRAGA Unavailable PROBLEMS Type Condition ICD9-CM Code WPV64-LN Code Onset Dates Condition Status SNOMED Code Problem Psychophysiological insomnia F51.04 Active 229368238 Problem Chronic obstructive pulmonary disease, unspecified J44.9 Active 14879199 Problem Cardiomyopathy I42.9 Active 99921034 Problem Slow transit constipation K59.01 Active 90419377 Problem Acquired hypothyroidism E03.9 Active 779307063 Problem Supplemental oxygen dependent Z99.81 Active 506841459370 Problem Acute on chronic systolic CHF (congestive heart failure) I50.23 Active 649355225 Problem Chronic kidney disease, stage IV (severe) N18.4 Active 184837217 Problem COPD with acute lower respiratory infection J44.0 Active 429231753 Problem Essential hypertension I10 Active 49064145 Problem Anemia associated with chronic renal failure D63.1 Active 935370916 Problem Anxiety F41.9 Active 46867738 Problem Chronic systolic heart failure I50.22 Active 660751736 Problem Paroxysmal atrial fibrillation I48.0 Active 092125329 Problem Mild depression F32.0 Active 412054370 Problem Chronic obstructive pulmonary disease with (acute) exacerbation J44.1 Active 334135291 ALLERGIES No Information ENCOUNTERS Encounter Location Date Diagnosis [facility] [address] [place] [id number] Feb, Chronic kidney disease, stage IV (severe) N18.4 ; Chronic systolic heart failure I50.22 ; COPD with acute lower respiratory infection J44.0 ; Vertigo R42 ; Slow transit constipation K59.01 ; Hemorrhoids, unspecified hemorrhoid type K64.9 ; Acquired hypothyroidism E03.9 ; Candidiasis of breast B37.89 and Difficulty in urination R39.198 [facility] [id number] [place] [address] 94678- 1018 Jan, Acute on chronic systolic CHF (congestive heart failure) I50.23 ; Acute kidney failure, unspecified N17.9 ; Chronic kidney disease, stage III (moderate) N18.3 and Supplemental oxygen dependent Z99.81 [place] [facility] [id number] [place] [address]2886- 4986 03 Jan, 2018 Acute on chronic combined systolic and diastolic CHF ( congestive heart failure) I50.43 [place] [address] [address] Jan, [facility] [address] [address] Jan, Irritant contact dermatitis due to cosmetics L24.3 ; Effusion of right wrist M25.431 and Pain in right wrist M25.[address] [address] Dec, Chronic systolic heart failure I50.22 ; Chronic obstructive pulmonary disease with (acute) exacerbation J44.1 ; CKD (chronic kidney disease ) stage 4, GFR 15-29 ml/min N18.4 ; Cardiomyopathy I42.9 ; Dependence on supplemental oxygen Z99.81 and Psychophysiological insomnia F51.04 [place] [id number] [place] [address] 25385- 6546 Dec, Anxiety F41.9 [place] [id number] [place] [address] 12640- 4512 Dec, [place] [id number] [place] [address] 89336- 8952 Dec, [address] [address] Dec, [facility] [address] [place] [id number] Dec, Encounter for examination for admission to senior living Z02.2 ; Chronic obstructive pulmonary disease, unspecified J44.9 ; Paroxysmal atrial fibrillation I48.0 ; CKD (chronic kidney disease) stage 4, GFR 15-29 ml/min N18.4 and Cardiomyopathy I42.9 [facility] [address] [address] Dec, [facility] [address] [address] Nov, Acute on chronic combined systolic and diastolic CHF ( congestive heart failure) I50.43 [facility] [id number] [place] [address] 62188- 2638 27 Nov, 2017 [facility] [id number] [place] [address] 60998- 2958 Nov, [facility] [id number] [place] [address] 98443- 3014 Nov, Chronic systolic heart failure I50.22 ; Paroxysmal atrial fibrillation I48.0 ; Chronic obstructive pulmonary disease with (acute) exacerbation J44.1 ; Chronic kidney disease, stage 4 (severe) N18.4 ; Pain in right hip M25.551 and Pain in left hip M25.552 [facility] [address] [address] Nov, Chronic kidney disease, stage 4 (severe) N18.4 [facility] [address] [address] 2517 Nov, [facility] [address] [address] 7[address] Nov, [facility] [address] [address] October, Chronic obstructive pulmonary disease with (acute) exacerbation J44.1 ; Chronic systolic heart failure I50.22 ; CKD (chronic kidney disease) stage 4, GFR 15-29 ml/min N18.4 and Dependence on supplemental oxygen Z99.81 [facility] [address], [place] [address] October, [facility] [id number], [place] [address] 4[address] October, [facility] [id number] [place] [address] 23925- 1839 Sep, Chronic kidney disease, stage 4 (severe) N18.4 and Chronic kidney disease, stage IV (severe) N18.4 [place] [id number] [place] [address] 54654- 1120 Sep, Chronic kidney disease, stage 4 (severe) N18.4 [place] [id number] [place] [address] 27437- 3065 Sep, Anxiety F41.9 ; Paroxysmal atrial fibrillation I48.0 ; Chronic kidney disease, stage 4 (severe) N18.4 ; Chronic systolic heart failure I50.22 and Anemia associated with chronic renal failure D63.1 [place] [id number] [place] [address] 85312- 7695 Sep, [place] [id number] [place] [address] 84863- 0179 Aug, [place] [id number] [place] [address] 58478- 5158 Aug, [facility] [address] [facility] [place] [id number] Aug, Acute on chronic combined systolic and diastolic CHF (congestive heart failure) I50.43 ; Essential hypertension I10 ; CKD (chronic kidney disease) stage 4, GFR 15-29 ml/min N18.4 ; Paroxysmal atrial fibrillation I48.0 and Mild depression F32.0 [place] [id number] [place] [address] 59161- 9604 Aug, [place] [id number] [place] [address] 71580- 7892 Aug, [facility] [id number] [place] [address] 58371- 1068 Aug, Acute on chronic respiratory failure with hypoxia J96.21 ; Acute kidney failure, unspecified N17.9 ; Chronic kidney disease, stage 4 ( severe) N18.4 ; Acute on chronic combined systolic and diastolic CHF ( congestive heart failure) I50.43 ; Paroxysmal atrial fibrillation I48.0 and Cardiomyopathy, unspecified type I42.9 [facility] [id number] [place] [address] 70893- 9855 Aug, [facility] [id number] [place] [address] 45127- 6043 Jul, [facility] [address] 48161- 4709 Jul, [facility] [address] 25141- 4377 Jul, [facility] [id number] [place] [address] 90970- 4344 Jul, [facility] [address] 12873- 0037 Jul, Community acquired pneumonia of right lower lobe of lung J18.1 ; CKD (chronic kidney disease) stage 4, GFR 15-29 ml/min N18.4 and Shortness of breath R06.02 [facility] [id number] [place] [id number] 05 Jul, 2017 [facility] [id number] [place] [address] 17077- 2813 Jun, Anxiety F41.9 [facility] [id number] [place] [address] 43690- 0802 Apr, Anxiety F41.9 [facility] [id number] [place] [address] 33877- 0169 Apr, Cough R05 and Pneumonia of right lower lobe due to infectious organism J18.1 [facility] [id number] [place] [address] 99022- 3823 Apr, [facility] [id number] [place] [address] 89212- 5722 Apr, Chronic kidney disease, stage IV (severe) N18.4 and COPD exacerbation J44.1 [facility] [id number] [place] [address] 13711- 6742 Feb, Chronic systolic heart failure I50.22 ; Essential hypertension I10 ; Anemia associated with chronic renal failure D63.1 and Chronic kidney disease, stage 4 (severe) N18.4 [place] [address] 86823- 2678 Feb, Anxiety F41.9 [facility] [address] 31355- 8317 Feb, [place] [address] 66149- 5672 Feb, [place] [address] 92872- 9630 Jan, Other fatigue R53.83 ; Otalgia of both ears H92.03 and Urinary urgency R39.15 [place] [id number] [place] [address] 81680- 5137 Jan, Acute non-recurrent maxillary sinusitis J01.00 ; Chronic systolic heart failure I50.22 ; Stage 3 chronic kidney disease N18.3 and Mild depression F32.0 [facility] [id number] [place] [address] 38612- 1012 Sep, [facility] [id number] [place] [address] 24213- 8637 Sep, [facility] [id number] [place] [address] 84634- 6929 Feb, [facility] [address] 72733- 7198 Feb, [facility] [id number] [place] [address] 06772- 1979 Dec, [facility] [address] 21308- 8924 Dec, [facility] [place] [facility] [address] [id number] [place] [address]- 0843 Nov, [facility] [place] [facility] [address] [id number] [place] [address]60 Nov, [facility] [place] [facility] [address] [id number] [place] [address]- 9418 Nov, [facility] [place] [facility] [address] [id number] [place] [address]- 6816 Nov, [facility] [place] [facility] [address] [id number] [place] [address]- 8875 October, [facility] [place] [facility] [address] [id number] [place] [address]- 5967 October, [facility] [place] [facility] [address] [id number] [place] [address]- 1566 Sep, [facility] [place] [facility] [address] [id number] [place] [address]- 7142 Sep, [facility] [place] [facility] [address] [id number] [place] [address]- 1114 Sep, [facility] [place] [facility] [address] [id number] [place] [address]- 0553 Sep, [facility] [place] [facility] [address] [id number] [place] [address]- 7783 Sep, [facility] [place] [facility] [address] [id number] [place] [address]- 7561 Aug, [facility] [place] [facility] [address] [id number] [place] [address]- 9480 Aug, [facility] [place] [facility] [address] [id number] [place] [address]- 1874 Aug, [facility] [place] [facility] [address] [id number] [place] [address]- 4490 Aug, [facility] [place] [facility] [address] [id number] [place] [address]- 7513 Aug, [facility] [place] [facility] [address] [id number] [place] [address]- 3356 Aug, [facility] [place] [facility] [address] [id number] [place] [address]- 4911 Aug, [facility] [place] [facility] [address] [id number] [place] [address]- 9501 Aug, [facility] [place] [facility] [address] [id number] [place] [address]- 0207 Jul, [facility] [place] [facility] [address] [id number] [place] [address]- 3031 Jul, [facility] [place] [facility] [address] [id number] [place] [address]- 7198 Jul, [facility] [place] [facility] [address] [id number] [place] [address]- 7546 Jul, [facility] [place] [facility] [address] [id number] [place] [address]- 3780 Jul, [facility] [place] [facility] [address] [id number] [place] [address]- 1232 Jul, [facility] [place] [facility] [address] [id number] [place] [address]- 8690 Jun, [facility] [place] [facility] [address] [id number] [place] [address]- 1598 Jun, [facility] [place] [facility] [address] [id number] [place] [address]- 9501 Jun, [facility] [place] [facility] [address] [id number] [place] [address]- 4209 Jun, [facility] [place] [facility] [address] [id number] [place] [address]- 4090 Jun, [facility] [place] [facility] [address] [id number] [place] [address]- 2546 May, [facility] [place] [facility] [address] [id number] [place] [address]- 7782 May, [facility] [place] [facility] [address] [id number] [place] [address]- 9048 May, [facility] [place] [facility] [address] [id number] [place] [address] 2548 May, [facility] [place] [facility] [address] [id number] [place] [address]- 1028 May, [facility] [place] [facility] [address] [id number] [place] [address]- 9393 Apr, [facility] [place] [facility] [address] [id number] [place] [address]- 8630 Apr, [facility] [place] [facility] [address] [id number] [place] [address]- 9371 Mar, [facility] [place] [facility] [address] [id number] [place] [address]- 1002 Mar, [facility] [place] [facility] [address] [id number] [place] [address]- 2531 Mar, [facility] [place] [facility] [address] [id number] [place] [address]- 0513 Mar, [facility] [place] [facility] [address] [id number] [address]- 7752 Feb, [facility] [place] [facility] [address] [id number], [place] [address] 2543 Jan, [facility] [place] [facility] [address] [id number] [place] [address] 2542 Jan, [facility] [place] [facility] [address] [id number] [place] [address]- 4770 Aug, [facility] [place] [facility] [address] [id number] [place] [address] 2546 Jul, [facility] [place] [facility] [address] [id number] [place] [address]- 1138 Jun, [facility] [place] [facility] [address] [id number] [place] [address]- 9873 May, [facility] [place] [facility] [address] [id number] [place] [address]- 5803 May, [facility] [place] [facility] [address] [id number] [place] [address]- 6260 May, [facility] [place] [facility] [address] [id number] [place] [address]- 9653 May, [facility] [place] [facility] [address] [id number] [place] [address]- 4026 Apr, [facility] [place] [facility] [address] [id number] [place] [address]- 7585 Apr, [facility] [place] [facility] [address] [id number] [place] [address]- 0095 Mar, [facility] [place] [facility] [address] [id number] [place] [address]- 0094 Mar, [facility] [place] [facility] [address] [id number] [place] [address]- 1208 Mar, [facility] [place] [facility] [address] [id number] [place] [address]- 7189 Mar, [facility] [place] [facility] [address] [id number] [place] [address]- 1600 Mar, [facility] [place] [facility] [address] [id number] [place] [address]- 0122 Mar, [facility] [place] [facility] [address] [id number] [place] [address]- 8193 Dec, [facility] [place] [facility] [address] [id number] [place] [address]- 2546 Dec, [facility] [place] [facility] [address] [id number] [place] [address]- 3437 Nov, [facility] [address] [facility] [id number] [address]- 2546 Nov, [facility] [address], [place] [address]- 2546 October, [facility] [id number] [address]- 2546 October, [facility] [address] [place] [address]- 2546 Sep, [facility] [id number] [address]- 9922 Aug, [facility] [address] [place] [address]- 3726 Aug, [facility] [id number] [address]- 5556 Aug, IMMUNIZATIONS No Known Immunizations SOCIAL HISTORY [...] History COPD - See's Dr Burnette in [facility] Medical History Chronic Heart Failure Surgical History 2 [facility] Surgical History defibrillator - 2012 Hospitalization History pneumonia for a week 2016 Hospitalization History Hospitalized at [facility]- CHF, Chest pain. Dismissed 07/11/17 07/10/2017 Hospitalization History [facility] pneumonia, hypoxia-[facility] 07/30/17 Hospitalization History [facility]- R[facility] PNA, Respiratory Failure. Transfered to [facility] 10/25/2017 Hospitalization History CHF/COPD 11/2017
[2018-03-30 10:47] LABS: AMORPHOUS SEDIMENT,UR MOD AMOR URATES /LPF
[2018-03-30 10:55] LABS: AMPHETAMINE SCREEN, URINE NEGATIVE (NEGATIVE); BARBITURATE SCREEN URINE NEGATIVE (NEGATIVE); BENZODIAZEPINES SCREEN URINE POSITIVE (NEGATIVE); CANNABINOID SCREEN, URINE NEGATIVE (NEGATIVE); COCAINE SCREEN URINE NEGATIVE (NEGATIVE); METHADONE STAT NEGATIVE (NEGATIVE); METHAMPHETAMINE SCREEN URINE S NEGATIVE (NEGATIVE); OPIATE SCREEN URINE NEGATIVE (NEGATIVE); OXYCODONE STAT POSITIVE (NEGATIVE); PROPOXYPHENE STAT NEGATIVE (NEGATIVE); TRICYCLIC ANTIDEPRESSANTS SCRE NEGATIVE (NEGATIVE)
--- NOTE | 2018-03-30 11:07 | Diagnostic Imaging Report ---
INDICATION: Difficulty breathing. TIME OF EXAMINATION: 10:43 a.m. COMPARISON: Correlation is made with prior study from 03/06/2018. FINDINGS: Right-sided dialysis line and left-sided cardiac fibrillator remain in place. There are congestive changes in both lungs. The heart is enlarged. There are bibasilar pulmonary infiltrates present. Central congestion. There is no pneumothorax. IMPRESSION: Findings suggestive of congestive failure. Dictated by: Dictated on workstation # [id number]
[2018-03-30 11:23] LABS: BAND NEUTROPHILS 2 %; BASOPHILS % (MANUAL) 1 %; LYMPHOCYTES % (MANUAL) 4 %; MONOCYTES % (MANUAL) 4 %; NEUTROPHILS % (MANUAL) 89 %; RBC MORPH NORMAL
[2018-03-30] MEDS ORDERED: OSELTAMIVIR 30 MG (TAMIFLU) CAPSULE PO ONE (11:45)
[2018-03-30] MEDS ORDERED: NS IV 1000 ML 1,000 ML ONE (12:35)
[2018-03-30] MEDS ORDERED: NS IV 1000 ML 1,000 ML IV SCH (12:45)
[2018-03-30 13:15] VITALS: BP 111/61
== END 2018-03-30 13:15 | disposition short-term general hospital (02) ==
LOC: EDUNIT# 10:08 → ER 10:08
DX: J96.92 Respiratory failure, unspecified with hypercapnia (principal); J96.21 Acute and chronic respiratory failure with hypoxia; J18.9 Pneumonia, unspecified organism; J44.0 Chronic obstructive pulmonary disease with (acute) lower respiratory infection; J44.1 Chronic obstructive pulmonary disease with (acute) exacerbation; E11.22 Type 2 diabetes mellitus with diabetic chronic kidney disease; I13.2 Hypertensive heart and chronic kidney disease with heart failure and with stage 5 chronic kidney disease, or end stage renal disease; N18.6 End stage renal disease; I50.20 Unspecified systolic (congestive) heart failure; E09.9 Drug or chemical induced diabetes mellitus without complications; T38.0X5A Adverse effect of glucocorticoids and synthetic analogues, initial encounter; K85.90 Acute pancreatitis without necrosis or infection, unspecified; N39.0 Urinary tract infection, site not specified; J10.1 Influenza due to other identified influenza virus with other respiratory manifestations; E87.8 Other disorders of electrolyte and fluid balance, not elsewhere classified; I48.91 Unspecified atrial fibrillation; I42.9 Cardiomyopathy, unspecified; K21.9 Gastro-esophageal reflux disease without esophagitis; E03.9 Hypothyroidism, unspecified; F41.9 Anxiety disorder, unspecified; F32.9 Major depressive disorder, single episode, unspecified; E78.00 Pure hypercholesterolemia, unspecified; G43.909 Migraine, unspecified, not intractable, without status migrainosus; Y95 Nosocomial condition; Z99.2 Dependence on renal dialysis; Z79.52 Long term (current) use of systemic steroids; Z87.891 Personal history of nicotine dependence; Z95.810 Presence of automatic (implantable) cardiac defibrillator; Z90.710 Acquired absence of both cervix and uterus; Z87.01 Personal history of pneumonia (recurrent)
CPT/HCPCS: 36415; 36600; 51702; 71045; 80053; 80306; 80320; 81000; 82805; 82962; 83605; 83690; 83735; 84100; 84484; 85007; 85027; 85610; 85730; 87040; 87077; 87088; 87186; 87804; 94640; 99291

== ENCOUNTER 2018-04-13 08:16 | Emergency (ER) | payer MEDICARE, MEDICAID ==
[~2018-04-13] VITALS: Ht 149.9 cm; Wt 71.8 kg
[2018-04-13 09:02] LABS: BASOPHILS # (AUTO) 0.1 10^3/uL (0.0-0.1); BASOPHILS % (AUTO) 1 % (0-10); EOSINOPHILS % (AUTO) 0 % (0-10); HEMATOCRIT 26 % (35-52); HEMOGLOBIN 8.5 G/DL (11.5-16.0); LYMPHOCYTES # (AUTO) 0.6 X 10^3 (1.0-4.0); LYMPHOCYTES % (AUTO) 7 % (12-44); MEAN CORPUSCULAR HEMOGLOBIN 31 PG (25-34); MEAN CORPUSCULAR HGB CONC 32 G/DL (32-36); MEAN CORPUSCULAR VOLUME 95 FL (80-99); MEAN PLATELET VOLUME 10.4 FL (7.4-10.4); MONOCYTES # (AUTO) 0.5 X 10^3 (0.0-1.0); MONOCYTES % (AUTO) 6 % (0-12); NEUTROPHILS # (AUTO) 8.2 X 10^3 (1.8-7.8); NEUTROPHILS % (AUTO) 87 % (42-75); PLATELET COUNT 377 10^3/uL (130-400); RED BLOOD COUNT 2.76 10^6/uL (4.35-5.85); RED CELL DISTRIBUTION WIDTH 17.3 % (10.0-14.5); WHITE BLOOD COUNT 9.5 10^3/uL (4.3-11.0)
--- NOTE | 2018-04-13 09:06 | Diagnostic Imaging Report ---
INDICATION: Generalized pain and weakness. TIME OF EXAMINATION: 8:48 AM. COMPARISON: 03/30/2018. FINDINGS: The heart remains enlarged but stable. The cardiac defibrillator as well as the right-sided dialysis catheter remain in place. Congestive changes are again noted. There may be some pleural fluid on the left. There appears to be some parenchymal consolidation in the left base. No pneumothorax is seen. IMPRESSION: Cardiomegaly and congestive changes with possible small left pleural effusion. Dictated by: Dictated on workstation # [id number]
[2018-04-13 09:16] LABS: INR 1.1 (0.8-1.4); PROTHROMBIN TIME PATIENT 14.3 SEC (12.2-14.7)
[2018-04-13 09:23] LABS: ALANINE AMINOTRANSFERASE 32 U/L (0-55); ALBUMIN 3.2 GM/DL (3.2-4.5); ALKALINE PHOSPHATASE 100 U/L (40-136); BILIRUBIN,TOTAL 0.8 MG/DL (0.1-1.0); BUN/CREATININE RATIO 5; CALCIUM 9.3 MG/DL (8.5-10.1); CARBON DIOXIDE 21 MMOL/L (21-32); CHLORIDE 95 MMOL/L (98-107); CREATININE SERUM 2.93 MG/DL (0.60-1.30); GFR ESTIMATED 17; GLUCOSE 103 MG/DL (70-105); MAGNESIUM 1.6 MG/DL (1.8-2.4); SODIUM 130 MMOL/L (135-145)
[2018-04-13 09:33] LABS: BAND NEUTROPHILS 0 %; BASOPHILS % (MANUAL) 1 %; EOSINOPHILS % (MANUAL) 1 %; HYPOCHROMASIA MODERATE; LYMPHOCYTES % (MANUAL) 9 %; MONOCYTES % (MANUAL) 7 %; NEUTROPHILS % (MANUAL) 82 %; POLYCHROMASIA MODERATE
[2018-04-13 09:34] LABS: ANISOCYTOSIS MARKED; TARGET CELLS SLIGHT
[2018-04-13 09:43] LABS: TSH (THYROID ANALYZER) 36.27 UIU/ML (0.35-4.94)
[2018-04-13 09:47] LABS: CLARITY,URINE VERY CLOUDY; COLOR,URINE AMBER; GLUCOSE, URINE (UA) NEGATIVE (NEGATIVE); KETONES,URINE NEGATIVE (NEGATIVE); LEUKOCYTE ESTERASE ,URINE 3+ (NEGATIVE); NITRITE,URINE NEGATIVE (NEGATIVE); PH,URINE 5 (5-9); PROTEIN,URINE 3+ (NEGATIVE); UROBILINOGEN,URINE 1 MG/DL (NORMAL)
[2018-04-13 09:55] LABS: BACTERIA,URINE NEGATIVE /HPF; BILIRUBIN,URINE 1+ (NEGATIVE); WBC,URINE 50-100 /HPF
[2018-04-13 09:56] LABS: SQUAMOUS EPITHELIAL CELL,UR 25-50 /HPF; YEAST,URINE MODERATE /HPF
[2018-04-13] MEDS ORDERED: NITR-65 PO (10:09)
--- NOTE | 2018-04-13 10:09 | ED General ---
General Chief Complaint: Respiratory Problems Nursing Triage Note: PT TO ROOM 7 BY W/C FROM [place], PT HAS GEN PAIN AND DOES NOT FEEL GOOD ENOUGH TO GO TO DIALYSIS TODAY. [place] DID NOT SEND PT ON O2, PT SAT 84% ON ROOM AIR, PT ON MASK AT 5L SAT UP TO 98% Allergies and Home Medications Allergies Coded Allergies: propoxyphene napsylate (Unverified Allergy, Severe, SEVERE NAUSEA AND VOMITING , 04/03/13) meperidine (Unverified Allergy, Unknown, 12/19/14) venom-honey bee (Verified Allergy, Unknown, 09/19/13) lisinopril (Verified Adverse Reaction, Unknown, PT STATES "BOTTOMS OUT" HER BLOOD PRESSURE, 03/12/15) Patient states that it "bottoms out" her blood pressure. She will refuse to take this medication and reports it as an allergy. Home Medications Acetaminophen 500 Mg Tablet, 1,000 MG PO Q6H PRN for PAIN-MILD, (Reported) Amiodarone HCl 200 Mg Tablet, 200 MG PO DAILY, (Reported) Calcium Carbonate 300 Mg Tab.chew, 300 MG PO QID PRN for INDIGESTION, (Reported) Carvedilol 12.5 Mg Tablet, 12.5 MG PO BID, (Reported) Cefepime HCl/D5w 2 Gm/50 Ml Piggyback, 2 GM IV DAILY Prescribed by: SAM GIBBS on 12/26/17 1047 Ferrous Sulfate 325 Mg Tablet, 325 MG PO DAILY, (Reported) Furosemide 10 Mg/1 Ml Vial, 100 MG IVP BID@0500,1700 Prescribed by: SAM GIBBS on 12/26/17 1047 Ipratropium/Albuterol Sulfate 3 Ml Ampul.neb, 3 ML NEB TID, (Reported) Ipratropium/Albuterol Sulfate 3 Ml Ampul.neb, 3 ML IH Q4H PRN for SHORTNESS OF BREATH, (Reported) Isosorbide Mononitrate 30 Mg Tab.er.24h, 15 MG PO BID, (Reported) TAKES 1/2 (30MG) TABLET Levothyroxine Sodium 25 Mcg Tablet, 25 MCG PO DAILY, (Reported) Loperamide HCl 2 Mg Capsule, 2 MG PO UD PRN for DIARRHEA, (Reported) Lorazepam 0.5 Mg Tablet, 0.5 MG PO HS, (Reported) Magnesium Oxide 400 Mg Tablet, 400 MG PO DAILY, (Reported) Methylprednisolone Sod Succ/Pf 40 Mg/1 Ml Vial, 40 MG IV Q6HR Prescribed by: SAM GIBBS on 12/26/17 1047 Multivitamins-Min/FA/Ginkgo 1 Each Tablet, 1 TAB PO DAILY, (Reported) Omeprazole 40 Mg Capsule.dr, 40 MG PO DAILY, (Reported) Ondansetron 4 Mg Tab.rapdis, 4 MG SL Q6H PRN for NAUSEA/VOMITING-1ST LINE, ( Reported) Oxycodone HCl 5 Mg Tablet, 5 MG PO Q4H PRN for PAIN-SEVERE, (Reported) Sertraline HCl 100 Mg Tablet, 150 MG PO HS, (Reported) TAKES 1 & 1/2 OF A (100 MG) TABLET Past Fqmrqnb-Shfhmc-Ybkevr Hx Patient Social History Alcohol Use: Denies Use Recreational Drug Use: Yes (SEE ABOVE) Smoking Status: Former Smoker Type Used: Cigarettes Former Smoker, Quit: Jul 09, 2017 2nd Hand Smoke Exposure: No Recent Foreign Travel: No Contact w/Someone Who Travel: No Recent Infectious Disease Expo: No Recent Hopitalizations: Yes (10 DAYS AGO) Physical Abuse: No Sexual Abuse: No Immunizations Up To Date Tetanus Booster (TDap): Unknown PED Vaccines UTD: No Date of Pneumonia Vaccine: Mar 30, 2013 Date of Influenza Vaccine: Jul 11, 2017 Seasonal Allergies Seasonal Allergies: Yes Past Medical History Surgeries: Yes (CARDIAC CATH--NO INTERVENTION, DEFIBRILLATOR PLACEMENT ) Cardiac, Section, Defibrillator, Hysterectomy Respiratory: Yes Asthma, Pneumonia, COPD Currently Using CPAP: No Currently Using BIPAP: No Cardiac: Yes (CHF EF 20% non ischemic, left atrial thrombus) Atrial Fibrillation, Cardiomyopathy, High Cholesterol, Hypertension Neurological: Yes Headaches /Migraines 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 Disorders: Yes (Hysterectomy) 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 Disorders: Denies 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 Sexually Transmitted Disease: No HIV/AIDS: No Genitourinary: Yes Renal Failure Gastrointestinal: Yes (history of elevated transaminases, HX of elevated liver enzymes) Gastroesophageal Reflux, Hiatal Hernia Musculoskeletal: Yes Arthritis Endocrine: Yes Hypothyroidsim HEENT: Yes Cataract Loss of Vision: Denies Hearing Impairment: Denies Cancer: No Bladder Psychosocial: Yes Sleep Difficulties, Anxiety, Depression Integumentary: No Blood Disorders: No Adverse Reaction/Blood Tranf: No Family Medical History Cancer 19 FATHER (HODGKINS ) 19 MOTHER (BRAIN TUMOR ) Congenital heart disease 19 MOTHER Congestive heart failure 19 MOTHER Family history: Cardiovascular disease 19 MOTHER G8 SISTER G8 SISTER Family history: Hypertension 19 MOTHER G8 SISTER G8 SISTER Heart disease 19 MOTHER G8 SISTER G8 SISTER History of - respiratory disease 19 MOTHER G8 BROTHER G8 SISTER Heart Disease, Cancer, Hypertension Physical Exam Vital Signs Vital Signs - First Documented 04/13/18 08:17 Temp 97.8 Pulse 83 Resp 15 B/P (MAP) 133/75 (94) Pulse Ox 83 O2 Delivery OxyMask O2 Flow Rate 5.00 Capillary Refill : Less Than 3 Seconds Height, Weight, BMI Height: 0'59.00" Weight: 158lbs. 6.0oz. [id number]; 34.6 BMI Method:Stated Procedures/Interventions Date of ETT Placement: Aug 20, 2017 Time of ETT Placement: 628 Progress/Results/Core Measures Suspected Sepsis Recent Fever Within 48 Hours: No New/Unexplained Altered Menta: No SIRS Temperature:97.8 Pulse: 83 Respiratory Rate: 15 Laboratory Tests 04/13/18 08:55: White Blood Count 9.5 Blood Pressure 133 /75 Mean: 94 Laboratory Tests 04/13/18 08:55: Creatinine 2.93H, INR Comment 1.1, Platelet Count 377, Total Bilirubin 0.8 Results/Orders Lab Results Laboratory Tests Test 04/13/18 08:55 04/13/18 09:40 Range/Units White Blood Count 9.5 4.3-11.0 10^3/uL Red Blood Count 2.76 L 4.35-5.85 10^6/uL Hemoglobin 8.5 L 11.5-16.0 G/DL Hematocrit 26 L 35-52 % Mean Corpuscular Volume 95 80-99 FL Mean Corpuscular Hemoglobin 31 25-34 PG Mean Corpuscular Hemoglobin Concent 32 32-36 G/DL Red Cell Distribution Width 17.3 H 10.0-14.5 % Platelet Count 377 130-400 10^3/uL Mean Platelet Volume 10.4 7.4-10.4 FL Neutrophils (%) (Auto) 87 H 42-75 % Lymphocytes (%) (Auto) 7 L 12-44 % Monocytes (%) (Auto) 6 0-12 % Eosinophils (%) (Auto) 0 0-10 % Basophils (%) (Auto) 1 0-10 % Neutrophils # (Auto) 8.2 H 1.8-7.8 X 10^3 Lymphocytes # (Auto) 0.6 L 1.0-4.0 X 10^3 Monocytes # (Auto) 0.5 0.0-1.0 X 10^3 Eosinophils # (Auto) 0.0 0.0-0.3 10^3/uL Basophils # (Auto) 0.1 0.0-0.1 10^3/uL Neutrophils % (Manual) 82 % Lymphocytes % (Manual) 9 % Monocytes % (Manual) 7 % Eosinophils % (Manual) 1 % Basophils % (Manual) 1 % Band Neutrophils 0 % Polychromasia MODERATE Hypochromasia MODERATE Anisocytosis MARKED Target Cells SLIGHT Prothrombin Time 14.3 12.2-14.7 SEC INR Comment 1.1 0.8-1.4 Activated Partial Thromboplast Time 35 24-35 SEC Sodium Level 130 L 135-145 MMOL/L Potassium Level 4.0 3.6-5.0 MMOL/L Chloride Level 95 L 98-107 MMOL/L Carbon Dioxide Level 21 21-32 MMOL/L Anion Gap 14 5-14 MMOL/L Blood Urea Nitrogen 16 7-18 MG/DL Creatinine 2.93 H 0.60-1.30 MG/DL Estimat Glomerular Filtration Rate 17 BUN/Creatinine Ratio 5 Glucose Level 103 70-105 MG/DL Calcium Level 9.3 8.5-10.1 MG/DL Corrected Calcium 9.9 8.5-10.1 MG/DL Magnesium Level 1.6 L 1.8-2.4 MG/DL Total Bilirubin 0.8 0.1-1.0 MG/DL Aspartate Amino Transf (AST/SGOT) 54 H 5-34 U/L Alanine Aminotransferase (ALT/SGPT) 32 0-55 U/L Alkaline Phosphatase 100 40-136 U/L Troponin I < 0.30 <0.30 NG/ML Total Protein 6.0 L 6.4-8.2 GM/DL Albumin 3.2 3.2-4.5 GM/DL TSH [facility] Testing 36.27 H 0.35-4.94 UIU/ML Urine Color KARLEY H Urine Clarity VERY CLOUDY H Urine pH 5 5-9 Urine Specific [place] 1.015 L 1.016-1.022 Urine Protein 3+ H NEGATIVE Urine Glucose (UA) NEGATIVE NEGATIVE Urine Ketones NEGATIVE NEGATIVE Urine Nitrite NEGATIVE NEGATIVE Urine Bilirubin 1+ H NEGATIVE Urine Urobilinogen 1 NORMAL MG/DL Urine Leukocyte Esterase 3+ H NEGATIVE Urine RBC (Auto) 5+ H NEGATIVE Urine RBC 5-10 H /HPF Urine WBC 50-100 H /HPF Urine Squamous Epithelial Cells 25-50 H /HPF Urine Renal Epithelial Cells 5-10 /HPF Urine Crystals NONE /LPF Urine Bacteria NEGATIVE /HPF Urine Casts NONE /LPF Urine Mucus NEGATIVE /LPF Urine Yeast MODERATE H /HPF Urine Culture Indicated YES My Orders Orders - TWYLA,YANE K DO Saline Lock/Iv-Start (04/13/18 08:30) Ekg Tracing (04/13/18 08:30) O2 (04/13/18 08:30) Monitor-Rhythm Ecg Trace Only (04/13/18 08:30) Straight Cath For Spec.-Adult (04/13/18 08:30) Cbc With Automated Diff (04/13/18 08:30) Comprehensive Metabolic Panel (04/13/18 08:30) Magnesium (04/13/18 08:30) Protime With Inr (04/13/18 08:30) Partial Thromboplastin Time (04/13/18 08:30) Thyroid Analyzer (04/13/18 08:30) Troponin I (04/13/18 08:30) Ua Culture If Indicated (04/13/18 08:30) Chest 1 View, Ap/Pa Only (04/13/18 08:30) Manual Differential (04/13/18 08:55) Free T4 (Free Thyroxine) (04/13/18 08:55) Urine Culture (04/13/18 09:40) Vital Signs/I&O 04/13/18 04/13/18 08:17 08:52 Temp 97.8 Pulse 83 Resp 15 B/P (MAP) 133/75 (94) Pulse Ox 83 98 O2 Delivery OxyMask OxyMask O2 Flow Rate 5.00 5.00 Capillary Refill : Less Than 3 Seconds Blood Pressure Mean: 94 Departure Impression Primary Impression: ESRD (end stage renal disease) on dialysis Additional Impressions: Fluid overload CHF (congestive heart failure) UTI (urinary tract infection) Hypothyroidism Disposition: 01 HOME, SELF-CARE Condition: Stable Departure-Patient Inst. Referrals: TEAGAN VERNON MD (PCP/Family) Primary Care Physician Patient Instructions: CHF, End Stage Kidney Disease (DC), Hemodialysis (DC), Urinary Tract Infection, Adult (DC) Add. 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 Voiced understanding. Scripts Nitrofurantoin Monohyd/M-Cryst (Macrobid 100 mg Capsule) 100 Mg Capsule 100 MG PO BID, #20 CAP Prov: YANE WAKEFIELD DO 04/13/18 YANE WAKEFIELD DO Apr 13, 2018 10:09
[2018-04-13 10:17] LABS: FREE T4 (FREE THYROXINE) 0.55 NG/DL (0.70-1.48)
[2018-04-13 11:25] VITALS: BP 134/84
== END 2018-04-13 11:25 | disposition home or self-care (01) ==
LOC: EDUNIT# 08:16 → ER 08:18
DX: I13.2 Hypertensive heart and chronic kidney disease with heart failure and with stage 5 chronic kidney disease, or end stage renal disease (principal); N18.6 End stage renal disease; I50.9 Heart failure, unspecified; N39.0 Urinary tract infection, site not specified; E03.9 Hypothyroidism, unspecified; I48.91 Unspecified atrial fibrillation; E87.70 Fluid overload, unspecified; I42.9 Cardiomyopathy, unspecified; E78.00 Pure hypercholesterolemia, unspecified; G43.909 Migraine, unspecified, not intractable, without status migrainosus; K21.9 Gastro-esophageal reflux disease without esophagitis; F41.9 Anxiety disorder, unspecified; F32.9 Major depressive disorder, single episode, unspecified; J44.9 Chronic obstructive pulmonary disease, unspecified; Z87.01 Personal history of pneumonia (recurrent); Z87.19 Personal history of other diseases of the digestive system; Z88.8 Allergy status to other drugs, medicaments and biological substances; Z87.891 Personal history of nicotine dependence; Z85.51 Personal history of malignant neoplasm of bladder; Z80.8 Family history of malignant neoplasm of other organs or systems; Z82.49 Family history of ischemic heart disease and other diseases of the circulatory system; Z99.2 Dependence on renal dialysis; Z98.890 Other specified postprocedural states; Z95.810 Presence of automatic (implantable) cardiac defibrillator; Z90.710 Acquired absence of both cervix and uterus
CPT/HCPCS: 36415; 71045; 80053; 81000; 83735; 84439; 84443; 84484; 85007; 85027; 85610; 85730; 87077; 87088; 87186; 93005; 93041

== ENCOUNTER 2018-04-24 19:43 | Emergency (ER) | payer MEDICARE, MEDICAID ==
[~2018-04-24] VITALS: Ht 144.8 cm; Wt 67.8 kg
[~2018-04-24 19:43] MED LIST changes: +NITR-65 PO
--- OUTSIDE RECORDS SUMMARY | 2018-04-24 19:48 | XMS REPORT ---
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 Name Role Phone CHRIS FRAGA Unavailable PROBLEMS Type Condition ICD9-CM Code MSG51-AV Code Onset Dates Condition Status SNOMED Code Problem Psychophysiological insomnia F51.04 Active 549555268 Problem Chronic obstructive pulmonary disease, unspecified J44.9 Active 33856877 Problem Cardiomyopathy I42.9 Active 32129380 Problem Slow transit constipation K59.01 Active 45232786 Problem Acquired hypothyroidism E03.9 Active 642469185 Problem Supplemental oxygen dependent Z99.81 Active 710039461318 Problem Acute on chronic systolic CHF (congestive heart failure) I50.23 Active 695580743 Problem Chronic kidney disease, stage IV (severe) N18.4 Active 650930911 Problem COPD with acute lower respiratory infection J44.0 Active 088323896 Problem Essential hypertension I10 Active 97674345 Problem Anemia associated with chronic renal failure D63.1 Active 287590994 Problem Anxiety F41.9 Active 32643457 Problem Chronic systolic heart failure I50.22 Active 572424457 Problem Paroxysmal atrial fibrillation I48.0 Active 338047684 Problem Mild depression F32.0 Active 053028561 Problem Chronic obstructive pulmonary disease with (acute) exacerbation J44.1 Active 561911021 ALLERGIES No Information ENCOUNTERS Encounter Location Date Diagnosis [facility] [address] [facility] [id number] [address] Mar, [facility] [address] [place] [id number] Feb, Vertigo R42 and Chronic kidney disease, stage IV (severe) N18.4 [facility] [address] [facility] [id number], [place] [address] Feb, [facility] [address] [place] [id number] 20 Feb, 2018 Cellulitis of breast N61.0 [facility] [address] [address] 18 Feb, 2018 [place] [id number] [place] [address] 42515- 0117 16 Feb, 2018 [place] [id number] [place] [address] 71289- 8559 12 Feb, 2018 Psychophysiological insomnia F51.04 [facility] [address] [place] [id number] 11 Feb, 2018 [place] [id number] [place] [address] 06293- 5542 10 Feb, 2018 [facility] [address] [place] [id number] 04 Feb, 2018 Chronic kidney disease, stage IV (severe) N18.4 ; Chronic systolic heart failure I50.22 ; COPD with acute lower respiratory infection J44.0 ; Vertigo R42 ; Slow transit constipation K59.01 ; Hemorrhoids, unspecified hemorrhoid type K64.9 ; Acquired hypothyroidism E03.9 ; Candidiasis of breast B37.89 and Difficulty in urination R39.198 [place] [id number] [place] [address] 07428- 3432 Jan, Acute on chronic systolic CHF (congestive heart failure) I50.23 ; Acute kidney failure, unspecified N17.9 ; Chronic kidney disease, stage III (moderate) N18.3 and Supplemental oxygen dependent Z99.81 [place] [id number] [place] [address] 91128- 7469 Jan, Acute on chronic combined systolic and diastolic CHF ( congestive heart failure) I50.43 [place] [id number] [place] [address] 91687- 9425 Jan, [facility] [id number] [place] [address] 19843 [address]6914 Jan, Irritant contact dermatitis due to cosmetics L24.3 ; Effusion of right wrist M25.431 and Pain in right wrist M25.531 [place] [id number] [place] [address] 99704- 9500 Dec, Chronic systolic heart failure I50.22 ; Chronic obstructive pulmonary disease with (acute) exacerbation J44.1 ; CKD (chronic kidney disease ) stage 4, GFR 15-29 ml/min N18.4 ; Cardiomyopathy I42.9 ; Dependence on supplemental oxygen Z99.81 and Psychophysiological insomnia F51.04 [place] [id number] [place] [address] 50606- 5090 Dec, Anxiety F41.9 [place] [id number] [place] [address] 09718- 0381 Dec, [place] [id number] [place] [address] 81297- 2950 Dec, [place] [id number] [place] [address] 52518- 3583 Dec, [facility] [address] [facility] [place] [id number] Dec, Encounter for examination for admission to long-term Z02.2 ; Chronic obstructive pulmonary disease, unspecified J44.9 ; Paroxysmal atrial fibrillation I48.0 ; CKD (chronic kidney disease) stage 4, GFR 15-29 ml/min N18.4 and Cardiomyopathy I42.9 [place] [id number] [place] [address] 32601- 1362 Dec, [place] [id number] [place] [address] 45730- 1607 Nov, Acute on chronic combined systolic and diastolic CHF ( congestive heart failure) I50.43 [place] [id number] [place] [address] 47029- 8946 Nov, [place] [id number] [place] [address] 56542- 5387 Nov, [place] [id number] [place] [address] 17316- 4628 Nov, Chronic systolic heart failure I50.22 ; Paroxysmal atrial fibrillation I48.0 ; Chronic obstructive pulmonary disease with (acute) exacerbation J44.1 ; Chronic kidney disease, stage 4 (severe) N18.4 ; Pain in right hip M25.551 and Pain in left hip M25.552 [facility] [id number] [place] [address] 50754- 1010 Nov, Chronic kidney disease, stage 4 (severe) N18.4 [place] [id number] [place] [address] 77654- 3621 Nov, [facility] [id number] [place] [address] 30294- 9226 Nov, [place] [id number] [place] [address] 25888- 8782 October, Chronic obstructive pulmonary disease with (acute) exacerbation J44.1 ; Chronic systolic heart failure I50.22 ; CKD (chronic kidney disease) stage 4, GFR 15-29 ml/min N18.4 and Dependence on supplemental oxygen Z99.81 [place] [id number] [place] [address] 95313- 6483 October, [facility] [id number] [place] [address] 64910- 6744 October, [facility] [id number] [place] [address] 42591- 6461 Sep, Chronic kidney disease, stage 4 (severe) N18.4 and Chronic kidney disease, stage IV (severe) N18.4 [facility] [id number] [place] [address] 72329- 3873 Sep, Chronic kidney disease, stage 4 (severe) N18.4 [facility] [id number] [place] [address] 26972- 2174 Sep, Anxiety F41.9 ; Paroxysmal atrial fibrillation I48.0 ; Chronic kidney disease, stage 4 (severe) N18.4 ; Chronic systolic heart failure I50.22 and Anemia associated with chronic renal failure D63.1 [place] [address], [place] [address] 6067 Sep, [facility] [address], [place] [address] 4849 Aug, [facility] [address], [place] [address] 7[address] Aug, [facility] [address] [facility] [place] [id number] Aug, Acute on chronic combined systolic and diastolic CHF (congestive heart failure) I50.43 ; Essential hypertension I10 ; CKD (chronic kidney disease) stage 4, GFR 15-29 ml/min N18.4 ; Paroxysmal atrial fibrillation I48.0 and Mild depression F32.0 [place] [address] [address] 1172 Aug, [place] [id number] [place] [address] 54811- 8778 Aug, [facility] [address] [address] 39[address] Aug, Acute on chronic respiratory failure with hypoxia J96.21 ; Acute kidney failure, unspecified N17.9 ; Chronic kidney disease, stage 4 ( severe) N18.4 ; Acute on chronic combined systolic and diastolic CHF ( congestive heart failure) I50.43 ; Paroxysmal atrial fibrillation I48.0 and Cardiomyopathy, unspecified type I42.9 [facility] [address], [place] [address] 8327 Aug, [facility] [address] [address] 6947 Jul, [facility] [address], [place] [address] 3158 Jul, [facility] [address], [place] [address] 0267 Jul, [facility] [address], [place] [address] 2252 Jul, [facility] [address], [place] [address] 5713 Jul, Community acquired pneumonia of right lower lobe of lung J18.1 ; CKD (chronic kidney disease) stage 4, GFR 15-29 ml/min N18.4 and Shortness of breath R06.02 [facility] [id number] [place] [id number] Jul, [facility] [id number] [place] [address] 05099- 1733 Jun, Anxiety F41.9 [place] [address] [address]- 9809 Apr, Anxiety F41.9 [place] [id number] [place] [address] 54614- 7045 Apr, Cough R05 and Pneumonia of right lower lobe due to infectious organism J18.1 [facility] [id number] [place] [address] 82383- 4180 Apr, [facility] [id number] [place] [address] 88281- 9976 Apr, Chronic kidney disease, stage IV (severe) N18.4 and COPD exacerbation J44.1 [facility] [id number] [place] [address] 68698- 5172 Feb, Chronic systolic heart failure I50.22 ; Essential hypertension I10 ; Anemia associated with chronic renal failure D63.1 and Chronic kidney disease, stage 4 (severe) N18.4 [facility] [address] [address] 7276 Feb, Anxiety F41.9 [facility] [id number] [place] [address] 84578- 2625 Feb, [facility] [id number] [place] [address] 05578- 1572 Feb, [facility] [address], [place] [address]- 2067 30 Jan, 2017 Other fatigue R53.83 ; Otalgia of both ears H92.03 and Urinary urgency R39.15 [facility] [address], [place] [address] 0774 Jan, Acute non-recurrent maxillary sinusitis J01.00 ; Chronic systolic heart failure I50.22 ; Stage 3 chronic kidney disease N18.3 and Mild depression F32.0 [facility] [id number] [address]- 3904 Sep, [facility] [id number] [place] [address] 66014- 1198 Sep, [facility] [id number] [place] [address] 22662- 2933 Feb, [facility] [id number] [place] [address] 24242- 2095 Feb, [facility] [address], [place] [address]- 1733 Dec, [facility] [id number] [place] [address] 33219- 3543 Dec, [facility] [address], [place] [address]- 0506 Nov, [facility] [address], [place] [address]- 2669 Nov, [facility] [address], [place] [address]- 7036 Nov, [facility] [id number] [place] [address] 09984- 0004 Nov, [facility] [address] [address]- 8313 October, [facility] [address], [place] [address]- 6741 October, [facility] [place] [facility] [address] [id number] [place] [address]- 7242 Sep, [facility] [place] [facility] [address] [id number] [place] [address]- 1673 Sep, [facility] [place] [facility] [address] [id number] [place] [address]- 8066 Sep, [facility] [place] [facility] [address] [id number] [place] [address]- 4026 Sep, [facility] [place] [facility] [address] [id number] [place] [address]- 8408 Sep, [facility] [place] [facility] [address] [id number] [place] [address]- 4142 Aug, [facility] [place] [facility] [address] [id number] [place] [address]- 5460 Aug, [facility] [place] [facility] [address] [id number] [place] [address]- 9942 Aug, [facility] [place] [facility] [address] [id number] [place] [address]- 6418 Aug, [facility] [place] [facility] [address] [id number] [place] [address]- 0423 Aug, [facility] [place] [facility] [address] [id number] [place] [address]- 8402 Aug, [facility] [place] [facility] [address] [id number] [place] [address]- 6436 Aug, [facility] [place] [facility] [address] [id number] [place] [address]- 1613 Aug, [facility] [place] [facility] [address] [id number] [place] [address]- 9606 Jul, [facility] [place] [facility] [address] [id number] [place] [address]- 6216 Jul, [facility] [place] [facility] [address] [id number] [place] [address]- 4359 05 Jul, 2013 [facility] [address] [id number] [place] [address]- 1379 05 Jul, 2013 [facility] [place] [facility] [address] [id number] [place] 6491 Jul, [facility] [place] [facility] [address] [id number] [place] [address]- 7389 Jul, [facility] [place] [facility] [address] [id number] [place] [address]- 5158 Jun, [facility] [place] [facility] [address] [id number] [place] [address]- 8721 Jun, [facility] [place] [facility] [address] [id number] [place] [address]- 1972 Jun, [facility] [address] [id number] [place] [address]- 5478 Jun, [facility] [place] [facility] [address] [id number] [place] [address]- 9242 Jun, [facility] [place] [facility] [address] [id number] [place] [address]- 1413 May, [facility] [place] [facility] [address] [facility] [id number] [place] [address]- 8373 May, [facility] [place] [facility] [address] [id number] [place] [address]- 7424 May, [facility] [place] [facility] [address] [id number] [place] [address]- 2052 May, [facility] [place] [facility] [address] [id number] [place] [address]- 4693 May, [facility] [place] [facility] [address] [id number] [place] [address]- 5070 Apr, [facility] [place] [facility] [address] [id number] [place] 1866 Apr, [facility] [place] [facility] [address] [id number] [place] [address]- 0599 Mar, [facility] [place] [facility] [address] [id number] [place] [address]- 8762 Mar, [facility] [place] [facility] [address] [id number] [place] [address]- 2497 Mar, [facility] [place] [facility] [address] [id number] [place] [address]- 4571 Mar, [facility] [place] [facility] [address] [id number] [place] [address]- 3691 Feb, [facility] [place] [facility] [address] [id number] [place] [address]- 6863 Jan, [facility] [place] [facility] [address] [id number] [place] [address]- 2642 Jan, [facility] [place] [facility] [address] [id number] [place] [address]- 6327 Aug, [facility] [place] [facility] [address] [id number] [place] [address]- 1860 Jul, [facility] [place] [facility] [address] [id number] [place] [address]- 2607 Jun, [facility] [place] [facility] [address] [id number] [place] [address]- 2672 May, [facility] [place] [facility] [address] [id number] [place] [address]- 0009 May, [facility] [place] [facility] [address] [id number] [place] 3844 May, [facility] [place] [facility] [address] [id number] [place] [address]- 9604 May, [facility] [place] [facility] [address] [id number] [place] [address]- 3151 Apr, [facility] [place] [facility] [address] [id number], [place] [address]- 0756 Apr, [facility] [place] [facility] [address] [id number] [place] [address]- 5160 Mar, [facility] [place] [facility] [address] [id number] [place] [address]- 2986 Mar, [facility] [place] [facility] [address] [id number] [place] [address]- 4758 Mar, [facility] [place] [facility] [address] [id number] [place] [address]- 7319 Mar, [facility] [place] [facility] [address] [id number] [place] [address]- 7354 Mar, [facility] [place] [facility] [address] [id number] [place] [address]- 8719 Mar, [facility] [place] [facility] [address] [id number] [place] [address]- 0716 Dec, [facility] [place] [facility] [address] [id number] [place] [address]- 4242 Dec, [facility] [place] [facility] [address] [id number] [place] [address]- 3896 Nov, [facility] [place] [facility] [address] [id number] [place] [address] 2546 Nov, [facility] [place] [facility] [address] [id number], [place] [address]- 6606 October, [facility] [place] [facility] [address] [id number], [place] [address]- 2546 October, [facility] [place] [facility] [address] [id number] [place] [address] 2546 Sep, [facility] [place] [facility] [address] [id number] [place] [address] 2546 Aug, [facility] [place] [facility] [address] [facility] [id number] [place] [address]- 2546 Aug, [facility] [place] [facility] [address] [facility] [id number] [place] 7354 Aug, IMMUNIZATIONS No Known Immunizations SOCIAL HISTORY Never Assessed REASON FOR VISIT requesting return call PLAN OF CARE VITAL SIGNS MEDICATIONS Unknown Medications RESULTS No Results PROCEDURES No Known procedures INSTRUCTIONS MEDICATIONS ADMINISTERED No Known Medications MEDICAL (GENERAL) HISTORY Type Description Date Medical History hyperlipidemia Medical History htn Medical History kidney failure stage 4 - dx in 2012 Medical History hypothyroidisim Medical History neuropathy Medical History COPD - See's Dr Burnette in [facility] Medical History Chronic Heart Failure Surgical History 2 cesareans Surgical History defibrillator - 2012 Hospitalization History pneumonia for a week 2017 Hospitalization History Hospitalized at [facility]- CHF, Chest pain. Dismissed 07/11/17 07/10/2017 Hospitalization History [facility] pneumonia, hypoxia-[facility] 07/30/17 Hospitalization History [facility]- [facility] PNA, Respiratory Failure. Transfered to [place] 10/25/2017 Hospitalization History CHF/COPD 11/2017
--- OUTSIDE RECORDS SUMMARY | 2018-04-24 19:48 | XMS REPORT ---
Author Author TEAGAN VERNON Organization [facility] Address [address] [place] [address] Care Team Providers Care Mobile Therapist Name Role Phone TEAGAN VERNON Unavailable PROBLEMS Type Condition ICD9-CM Code TRH56-RA Code Onset Dates Condition Status SNOMED Code Problem Psychophysiological insomnia F51.04 Active 911588494 Problem Chronic obstructive pulmonary disease, unspecified J44.9 Active 72798524 Problem Cardiomyopathy I42.9 Active 25144500 Problem Slow transit constipation K59.01 Active 26273917 Problem Acquired hypothyroidism E03.9 Active 234084283 Problem Supplemental oxygen dependent Z99.81 Active 072619785119 Problem Acute on chronic systolic CHF (congestive heart failure) I50.23 Active 276058770 Problem Chronic kidney disease, stage IV (severe) N18.4 Active 994245416 Problem COPD with acute lower respiratory infection J44.0 Active 121324746 Problem Essential hypertension I10 Active 13153242 Problem Anemia associated with chronic renal failure D63.1 Active 280662658 Problem Anxiety F41.9 Active 83086296 Problem Chronic systolic heart failure I50.22 Active 121970212 Problem Paroxysmal atrial fibrillation I48.0 Active 375623169 Problem Mild depression F32.0 Active 074594728 Problem Chronic obstructive pulmonary disease with (acute) exacerbation J44.1 Active 896775922 ALLERGIES No Information ENCOUNTERS Encounter Location Date Diagnosis [facility] [address] [facility] [id number] [address] Mar, [facility] [address] [place] [id number] Feb, Vertigo R42 and Chronic kidney disease, stage IV (severe) N18.4 [facility] [address] [facility] [id number], [place] [address] Feb, [facility] [address] [place] [id number] 20 Feb, 2018 Cellulitis of breast N61.0 [facility] [address] [address] 18 Feb, 2018 [place] [id number] [place] [address] 70082- 4426 16 Feb, 2018 [place] [id number] [place] [address] 73772- 3671 12 Feb, 2018 Psychophysiological insomnia F51.04 [facility] [address] [place] [id number] 11 Feb, 2018 [place] [id number] [place] [address] 65331- 9268 10 Feb, 2018 [facility] [address] [place] [id number] 04 Feb, 2018 Chronic kidney disease, stage IV (severe) N18.4 ; Chronic systolic heart failure I50.22 ; COPD with acute lower respiratory infection J44.0 ; Vertigo R42 ; Slow transit constipation K59.01 ; Hemorrhoids, unspecified hemorrhoid type K64.9 ; Acquired hypothyroidism E03.9 ; Candidiasis of breast B37.89 and Difficulty in urination R39.198 [place] [id number] [place] [address] 82712- 1744 Jan, Acute on chronic systolic CHF (congestive heart failure) I50.23 ; Acute kidney failure, unspecified N17.9 ; Chronic kidney disease, stage III (moderate) N18.3 and Supplemental oxygen dependent Z99.81 [place] [address] [place] [address] 08331[address] 4839 Jan, Acute on chronic combined systolic and diastolic CHF ( congestive heart failure) I50.43 [place] [id number] [place] [address] 68853- 7139 Jan, [facility] [id number] [place] [address]201 [address] Jan, Irritant contact dermatitis due to cosmetics L24.3 ; Effusion of right wrist M25.431 and Pain in right wrist M25.531 [place] [address] [place] [address] 90887- 5234 Dec, Chronic systolic heart failure I50.22 ; Chronic obstructive pulmonary disease with (acute) exacerbation J44.1 ; CKD (chronic kidney disease ) stage 4, GFR 15-29 ml/min N18.4 ; Cardiomyopathy I42.9 ; Dependence on supplemental oxygen Z99.81 and Psychophysiological insomnia F51.04 [place] [id number] [place] [address] 74211- 2710 Dec, Anxiety F41.9 [place] [id number] [place] [address] 94452- 3761 Dec, [place] [id number] [place] [address] 89157- 8020 Dec, [place] [id number] [place] [address] 76623- 4598 Dec, [facility] [address] [facility] [place] [id number] Dec, Encounter for examination for admission to correction Z02.2 ; Chronic obstructive pulmonary disease, unspecified J44.9 ; Paroxysmal atrial fibrillation I48.0 ; CKD (chronic kidney disease) stage 4, GFR 15-29 ml/min N18.4 and Cardiomyopathy I42.9 [place] [id number] [place] [address] 28000- 4351 Dec, [place] [id number] [place] [address] 93432- 6901 Nov, Acute on chronic combined systolic and diastolic CHF ( congestive heart failure) I50.43 [place] [id number] [place] [address] 70359- 7170 Nov, [place] [id number] [place] [address] 62178- 1225 Nov, [place] [id number] [place] [address] 09193- 2514 Nov, Chronic systolic heart failure I50.22 ; Paroxysmal atrial fibrillation I48.0 ; Chronic obstructive pulmonary disease with (acute) exacerbation J44.1 ; Chronic kidney disease, stage 4 (severe) N18.4 ; Pain in right hip M25.551 and Pain in left hip M25.552 [facility] [address] [place] [address] 41774- 3783 Nov, Chronic kidney disease, stage 4 (severe) N18.4 [place] [id number] [place] [address] 60212- 9703 Nov, [facility] [id number] [place] [address] 23829- 5193 Nov, [place] [id number] [place] [address] 78083- 0662 October, Chronic obstructive pulmonary disease with (acute) exacerbation J44.1 ; Chronic systolic heart failure I50.22 ; CKD (chronic kidney disease) stage 4, GFR 15-29 ml/min N18.4 and Dependence on supplemental oxygen Z99.81 [place] [id number] [place] [address] 63261- 7623 October, [facility] [id number] [place] [address] 34503- 0017 October, [facility] [id number] [place] [address] 87915- 4480 Sep, Chronic kidney disease, stage 4 (severe) N18.4 and Chronic kidney disease, stage IV (severe) N18.4 [facility] [address] [place] [address] 70466- 2488 Sep, Chronic kidney disease, stage 4 (severe) N18.4 [facility] [address] [place] [address] 38790- 3763 Sep, Anxiety F41.9 ; Paroxysmal atrial fibrillation I48.0 ; Chronic kidney disease, stage 4 (severe) N18.4 ; Chronic systolic heart failure I50.22 and Anemia associated with chronic renal failure D63.1 [place] [address], [place] [address] 74[address] Sep, [facility] [address], [place] [address] 110[address] Aug, [facility] [address], [place] [address] 6[address] Aug, [facility] [address] [facility] [place] [id number] Aug, Acute on chronic combined systolic and diastolic CHF (congestive heart failure) I50.43 ; Essential hypertension I10 ; CKD (chronic kidney disease) stage 4, GFR 15-29 ml/min N18.4 ; Paroxysmal atrial fibrillation I48.0 and Mild depression F32.0 [place] [address] [address] 4217 Aug, [place] [id number] [place] [address] 38504- 8169 Aug, [facility] [address] [address] 9[address] Aug, Acute on chronic respiratory failure with hypoxia J96.21 ; Acute kidney failure, unspecified N17.9 ; Chronic kidney disease, stage 4 ( severe) N18.4 ; Acute on chronic combined systolic and diastolic CHF ( congestive heart failure) I50.43 ; Paroxysmal atrial fibrillation I48.0 and Cardiomyopathy, unspecified type I42.9 [facility] [address], [place] [address] 4[address] Aug, [facility] [address], [place] [address] 8236 Jul, [facility] [address], [place] [address] 3478 Jul, [facility] [address], [place] [address] 3515 Jul, [facility] [address], [place] [address] 7890 Jul, [facility] [address], [place] [address] 4141 Jul, Community acquired pneumonia of right lower lobe of lung J18.1 ; CKD (chronic kidney disease) stage 4, GFR 15-29 ml/min N18.4 and Shortness of breath R06.02 [facility] [id number] [place] [address] [id number] Jul, [facility] [id number] [place] [address] 60946- 4787 Jun, Anxiety F41.9 [place] [address] [address] 7013 Apr, Anxiety F41.9 [place] [id number] [place] [address] 15338- 0669 Apr, Cough R05 and Pneumonia of right lower lobe due to infectious organism J18.1 [facility] [id number] [place] [address] 50583- 7669 Apr, [facility] [id number] [place] [address] 67344- 4471 Apr, Chronic kidney disease, stage IV (severe) N18.4 and COPD exacerbation J44.1 [facility] [address] [place] [address] 13944- 9044 Feb, Chronic systolic heart failure I50.22 ; Essential hypertension I10 ; Anemia associated with chronic renal failure D63.1 and Chronic kidney disease, stage 4 (severe) N18.4 [facility] [address], [place] [address] 5786 Feb, Anxiety F41.9 [facility] [id number] [place] [address] 98828- 5967 Feb, [facility] [address] [place] [address] 36070- 0864 Feb, [facility] [address], [place] [address] 0[address] 30 Jan, 2017 Other fatigue R53.83 ; Otalgia of both ears H92.03 and Urinary urgency R39.15 [facility] [address], [place] [address]- 4564 Jan, Acute non-recurrent maxillary sinusitis J01.00 ; Chronic systolic heart failure I50.22 ; Stage 3 chronic kidney disease N18.3 and Mild depression F32.0 [facility] [address] [place] [address]- 4407 Sep, [facility] [id number] [place] [address] 94357- 2253 Sep, [facility] [id number] [place] [address] 55041- 5303 Feb, [facility] [id number] [place] [address] 66235- 2056 Feb, [facility] [address], [place] [address]- 3578 Dec, [facility] [id number] [place] [address] 44248- 5974 Dec, [facility] [address], [place] [address]- 6551 Nov, [facility] [address], [place] [address]- 2326 Nov, [facility] [address], [place] [address]- 4397 Nov, [facility] [address] [place] [address] 80383- 6594 Nov, [facility] [address], [place] [address]- 8681 October, [facility] [address], [place] [address]- 9507 October, [facility] [place] [facility] [address] [id number] [place] [address]- 2752 Sep, [facility] [place] [facility] [address] [id number] [place] [address]- 1824 Sep, [facility] [place] [facility] [address] [id number] [place] [address]- 1146 Sep, [facility] [place] [facility] [address] [id number] [place] [address]- 7191 Sep, [facility] [place] [facility] [address] [id number] [place] [address]- 1980 Sep, [facility] [place] [facility] [address] [id number] [place] [address]- 7531 Aug, [facility] [place] [facility] [address] [id number] [place] [address]- 5092 Aug, [facility] [place] [facility] [address] [id number] [place] [address]- 6318 Aug, [facility] [place] [facility] [address] [id number] [place] [address]- 5548 Aug, [facility] [place] [facility] [address] [id number] [place] [address]- 5240 Aug, [facility] [place] [facility] [address] [id number] [place] [address]- 7364 Aug, [facility] [place] [facility] [address] [id number] [place] [address]- 8476 Aug, [facility] [place] [facility] [address] [id number] [place] [address]- 8917 Aug, [facility] [place] [facility] [address] [id number] [place] [address]- 5236 Jul, [facility] [place] [facility] [address] [id number] [place] [address]- 5046 Jul, [facility] [place] [facility] [address] [id number] [place] [address]- 5930 05 Jul, 2013 [facility] [address] [id number] [place] [address]- 9992 05 Jul, 2013 [facility] [place] [facility] [address] [id number] [place] 7534 Jul, [facility] [place] [facility] [address] [id number] [place] [address]- 9621 Jul, [facility] [place] [facility] [address] [id number] [place] [address]- 8968 Jun, [facility] [place] [facility] [address] [id number] [place] [address]- 2952 Jun, [facility] [place] [facility] [address] [id number] [place] [address]- 9285 Jun, [facility] [address] [id number] [place] [address]- 7788 Jun, [facility] [place] [facility] [address] [id number] [place] [address]- 0932 Jun, [facility] [place] [facility] [address] [id number] [place] [address]- 5762 May, [facility] [place] [facility] [address] [facility] [id number] [place] [address]- 7864 May, [facility] [place] [facility] [address] [id number] [place] [address]- 2400 May, [facility] [place] [facility] [address] [id number] [place] [address]- 7412 May, [facility] [place] [facility] [address] [id number] [place] [address]- 3611 May, [facility] [place] [facility] [address] [id number] [place] [address]- 7886 Apr, [facility] [place] [facility] [address] [id number] [place] 6597 Apr, [facility] [place] [facility] [address] [id number] [place] [address]- 3909 Mar, [facility] [place] [facility] [address] [id number] [place] [address]- 4291 Mar, [facility] [place] [facility] [address] [id number] [place] [address]- 2641 Mar, [facility] [place] [facility] [address] [id number] [place] [address]- 5780 Mar, [facility] [place] [facility] [address] [id number] [place] [address]- 1991 Feb, [facility] [place] [facility] [address] [id number] [place] [address]- 3288 Jan, [facility] [place] [facility] [address] [id number] [place] [address]- 2451 Jan, [facility] [place] [facility] [address] [id number] [place] [address]- 7857 Aug, [facility] [place] [facility] [address] [id number] [place] [address]- 6663 Jul, [facility] [place] [facility] [address] [id number] [place] [address]- 0162 Jun, [facility] [place] [facility] [address] [id number] [place] [address]- 2043 May, [facility] [place] [facility] [address] [id number] [place] [address]- 4812 May, [facility] [place] [facility] [address] [id number] [place] [address]507 May, [facility] [place] [facility] [address] [id number] [place] [address]- 4621 May, [facility] [place] [facility] [address] [id number] [place] [address]- 3017 Apr, [facility] [place] [facility] [address] [id number], [place] [address]- 5026 Apr, [facility] [place] [facility] [address] [id number] [place] [address]- 2417 Mar, [facility] [place] [facility] [address] [id number] [place] [address]- 7756 Mar, [facility] [place] [facility] [address] [id number] [place] [address]- 3862 Mar, [facility] [place] [facility] [address] [id number] [place] [address]- 1343 Mar, [facility] [place] [facility] [address] [id number] [place] [address]- 7669 Mar, [facility] [place] [facility] [address] [id number] [place] [address]- 5828 Mar, [facility] [place] [facility] [address] [id number] [place] [address]- 1944 Dec, [facility] [place] [facility] [address] [id number] [place] [address]- 4751 Dec, [facility] [place] [facility] [address] [id number] [place] [address]- 0797 Nov, [facility] [place] [facility] [address] [id number] [place] [address] 2546 Nov, [facility] [place] [facility] [address] [id number], [place] [address]- 9576 October, [facility] [place] [facility] [address] [id number], [place] [address]- 2546 October, [facility] [place] [facility] [address] [id number] [place] [address] 2546 Sep, [facility] [place] [facility] [address] [id number] [place] [address] 2546 Aug, [facility] [place] [facility] [address] [facility] [id number] [place] [address]- 2546 Aug, [facility] [place] [facility] [address] [facility] [id number] [place] [address]- 9146 Aug, IMMUNIZATIONS No Known Immunizations SOCIAL HISTORY Never Assessed REASON FOR VISIT PLAN OF CARE VITAL SIGNS MEDICATIONS Medication Instructions Dosage Frequency Start Date End Date Duration Status Omeprazole 40 MG Orally Once a day 1 capsule 24h 30 day(s) Active Ipratropium-Albuterol 0.5-2.5 (3) MG/3ML Inhalation every 4 hrs 3 ml as needed 4h Active ProAir HFA 108 (90 Base) MCG/ACT Inhalation every 6 hrs 2 puffs as needed 6h Active Multivitamin Adults - as directed Active Nystatin 218590 UNIT/GM Externally under both breasts Twice a day till healed 1 application to affected area Feb, Active Senna 8.6 MG Orally twice a day 1 capsule 12h Feb, Apr, 30 day(s) Active Ferrous Sulfate 325 (65 Fe) MG Orally Once a day 1 tablet 24h 30 day( s) Active Amiodarone HCl 200 MG Orally Once a day 1 tablet 24h 30 day(s) Active Fluticasone Propionate 50 MCG/ACT Nasally twice a day 1 spray in each nostril 12h Feb, 30 day(s) Active Sertraline HCl 100 mg Orally Once a day 1.5 tablet 24h Active Synthroid 25 MCG Orally Once a day 1 tablet on an empty stomach in the morning 24h 30 day(s) Active Preparation H Hydrocortisone 1 % Externally Twice a day and prn 1 application to affected area Feb, Mar, 10 days Active Lorazepam 0.5 MG Orally everyday at bedtime 1 tablet Aug, 28 days Active Triamcinolone Acetonide 0.5 % Externally under both breasts Twice a day 1 application to affected area 12h Feb, 5 days Active Norvasc 5 MG Orally Once a day 1 tablet 24h 30 day(s) Active Oxycodone HCl 5 mg Orally every 6 hrs 1 tablet as needed 6h Feb, 28 days Active Carvedilol 3.125 MG Orally 2 times a day 1 tablet 12h Active Magnesium Oxide 400 mg Orally Once a day 1 tablet 24h Active Zofran 4 MG Orally every 8 hrs as needed 1 tablet Active RESULTS No Results PROCEDURES No Known procedures INSTRUCTIONS MEDICATIONS ADMINISTERED No Known Medications MEDICAL (GENERAL) HISTORY Type Description Date Medical History hyperlipidemia Medical History htn Medical History kidney failure stage 4 - dx in 2012 Medical History hypothyroidisim Medical History neuropathy Medical History COPD - See's Dr Burnette in [facility] Medical History Chronic Heart Failure Surgical History 2 cesareans Surgical History defibrillator - 2012 Hospitalization History pneumonia for a week 2016 Hospitalization History Hospitalized at [facility]- CHF, Chest pain. Dismissed 07/11/17 07/10/2017 Hospitalization History [facility] pneumonia, hypoxia-[facility] 07/30/17 Hospitalization History [facility]- [facility] PNA, Respiratory Failure. Transfered to [facility] 10/25/2017 Hospitalization History CHF/COPD 11/2017
--- OUTSIDE RECORDS SUMMARY | 2018-04-24 19:49 | XMS REPORT ---
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 Name Role Phone CHRIS FRAGA Unavailable PROBLEMS Type Condition ICD9-CM Code ZIN96-BF Code Onset Dates Condition Status SNOMED Code Problem Psychophysiological insomnia F51.04 Active 313747451 Problem Chronic obstructive pulmonary disease, unspecified J44.9 Active 67828336 Problem Cardiomyopathy I42.9 Active 28203182 Problem Slow transit constipation K59.01 Active 66646776 Problem Acquired hypothyroidism E03.9 Active 032476977 Problem Supplemental oxygen dependent Z99.81 Active 006148260974 Problem Acute on chronic systolic CHF (congestive heart failure) I50.23 Active 050593392 Problem Chronic kidney disease, stage IV (severe) N18.4 Active 645377145 Problem COPD with acute lower respiratory infection J44.0 Active 648945726 Problem Essential hypertension I10 Active 01736842 Problem Anemia associated with chronic renal failure D63.1 Active 965601927 Problem Anxiety F41.9 Active 73957257 Problem Chronic systolic heart failure I50.22 Active 596233809 Problem Paroxysmal atrial fibrillation I48.0 Active 873911920 Problem Mild depression F32.0 Active 546371266 Problem Chronic obstructive pulmonary disease with (acute) exacerbation J44.1 Active 810723464 ALLERGIES No Information ENCOUNTERS Encounter Location Date Diagnosis [facility] [address] [facility] [id number] [address] Mar, [facility] [address] [place] [id number] Feb, Vertigo R42 and Chronic kidney disease, stage IV (severe) N18.4 [facility] [address] [facility] [id number] [address] Feb, [facility] [address] [place] [id number] 20 Feb, 2018 Cellulitis of breast N61.0 [facility] [address] [address] 18 Feb, 2018 [place] [id number] [place] [address]3665- 1538 16 Feb, 2018 [place] [id number] [place] [address] 77855- 8901 12 Feb, 2018 Psychophysiological insomnia F51.04 [facility] [address] [place] [id number] 11 Feb, 2018 [place] [id number] [place] [address] 46894- 7079 10 Feb, 2018 [facility] [address] [place] [id number] 04 Feb, 2018 Chronic kidney disease, stage IV (severe) N18.4 ; Chronic systolic heart failure I50.22 ; COPD with acute lower respiratory infection J44.0 ; Vertigo R42 ; Slow transit constipation K59.01 ; Hemorrhoids, unspecified hemorrhoid type K64.9 ; Acquired hypothyroidism E03.9 ; Candidiasis of breast B37.89 and Difficulty in urination R39.198 [place] [id number] [place] [address] 14183- 2315 Jan, Acute on chronic systolic CHF (congestive heart failure) I50.23 ; Acute kidney failure, unspecified N17.9 ; Chronic kidney disease, stage III (moderate) N18.3 and Supplemental oxygen dependent Z99.81 [place] [id number] [place] [address] 90838- 4807 Jan, Acute on chronic combined systolic and diastolic CHF ( congestive heart failure) I50.43 [place] [id number] [place] [address] 59630- 4621 Jan, [facility] [id number] [place] [address] 17351 -3637 Jan, Irritant contact dermatitis due to cosmetics L24.3 ; Effusion of right wrist M25.431 and Pain in right wrist M25.531 [place] [id number] [place] [address] 28358- 3765 Dec, Chronic systolic heart failure I50.22 ; Chronic obstructive pulmonary disease with (acute) exacerbation J44.1 ; CKD (chronic kidney disease ) stage 4, GFR 15-29 ml/min N18.4 ; Cardiomyopathy I42.9 ; Dependence on supplemental oxygen Z99.81 and Psychophysiological insomnia F51.04 [place] [id number] [place] [address] 31087- 9817 Dec, Anxiety F41.9 [place] [id number] [place] [address] 61636- 4215 Dec, [place] [id number] [place] [address] 46237- 2268 Dec, [place] [id number] [place] [address] 99475- 3341 Dec, [facility] [address] [facility] [address] [place] [id number] Dec, Encounter for examination for admission to long term Z02.2 ; Chronic obstructive pulmonary disease, unspecified J44.9 ; Paroxysmal atrial fibrillation I48.0 ; CKD (chronic kidney disease) stage 4, GFR 15-29 ml/min N18.4 and Cardiomyopathy I42.9 [place] [id number] [place] [address] 38264- 8573 Dec, [place] [id number] [place] [address] 43770- 1800 Nov, Acute on chronic combined systolic and diastolic CHF ( congestive heart failure) I50.43 [place] [id number] [place] [address] 47454- 9332 Nov, [place] [id number] [place] [address] 83591- 2992 Nov, [place] [id number] [place] [address] 25899- 5207 Nov, Chronic systolic heart failure I50.22 ; Paroxysmal atrial fibrillation I48.0 ; Chronic obstructive pulmonary disease with (acute) exacerbation J44.1 ; Chronic kidney disease, stage 4 (severe) N18.4 ; Pain in right hip M25.551 and Pain in left hip M25.552 [facility] [id number] [place] [address] 74452- 3776 Nov, Chronic kidney disease, stage 4 (severe) N18.4 [place] [id number] [place] [address] 02916- 7604 Nov, [facility] [id number] [place] [address] 96950- 6124 Nov, [place] [id number] [place] [address] 79446- 4956 October, Chronic obstructive pulmonary disease with (acute) exacerbation J44.1 ; Chronic systolic heart failure I50.22 ; CKD (chronic kidney disease) stage 4, GFR 15-29 ml/min N18.4 and Dependence on supplemental oxygen Z99.81 [place] [id number] [place] [address] 49417- 7669 October, [facility] [id number] [place] [address] 43536- 4445 October, [facility] [id number] [place] [address] 95363- 9132 Sep, Chronic kidney disease, stage 4 (severe) N18.4 and Chronic kidney disease, stage IV (severe) N18.4 [facility] [id number] [place] [address] 03749- 5730 Sep, Chronic kidney disease, stage 4 (severe) N18.4 [facility] [id number] [place] [address] 32500- 8810 Sep, Anxiety F41.9 ; Paroxysmal atrial fibrillation I48.0 ; Chronic kidney disease, stage 4 (severe) N18.4 ; Chronic systolic heart failure I50.22 and Anemia associated with chronic renal failure D63.1 [place] [address] [address] Sep, [facility] [address] [address] 8840 Aug, [facility] [address] [address] 6[address] Aug, [facility] [address] [facility] [place] [id number] Aug, Acute on chronic combined systolic and diastolic CHF (congestive heart failure) I50.43 ; Essential hypertension I10 ; CKD (chronic kidney disease) stage 4, GFR 15-29 ml/min N18.4 ; Paroxysmal atrial fibrillation I48.0 and Mild depression F32.0 [place] [address] [address] 7507 Aug, [place] [id number] [place] [address] 11707- 4365 Aug, [facility] [address] [address] 2888 Aug, Acute on chronic respiratory failure with hypoxia J96.21 ; Acute kidney failure, unspecified N17.9 ; Chronic kidney disease, stage 4 ( severe) N18.4 ; Acute on chronic combined systolic and diastolic CHF ( congestive heart failure) I50.43 ; Paroxysmal atrial fibrillation I48.0 and Cardiomyopathy, unspecified type I42.9 [facility] [address] [address] 4205 Aug, [facility] [address] [address] 2404 Jul, [facility] [address] [address] 3432 Jul, [facility] [address] [address]- 3942 Jul, [facility] [address] [address] 4350 Jul, [facility] [address] [address] 8874 Jul, Community acquired pneumonia of right lower lobe of lung J18.1 ; CKD (chronic kidney disease) stage 4, GFR 15-29 ml/min N18.4 and Shortness of breath R06.02 [facility] [id number] [place] [address] [id number] Jul, [facility] [id number] [place] [address] 39070- 7450 Jun, Anxiety F41.9 [place] [address] [address]- 6517 Apr, Anxiety F41.9 [place] [id number] [place] [address] 03992- 3545 Apr, Cough R05 and Pneumonia of right lower lobe due to infectious organism J18.1 [facility] [id number] [place] [address] 44457- 7601 Apr, [facility] [id number] [place] [address] 16706- 9114 Apr, Chronic kidney disease, stage IV (severe) N18.4 and COPD exacerbation J44.1 [facility] [address] [place] [address] 57182- 9149 Feb, Chronic systolic heart failure I50.22 ; Essential hypertension I10 ; Anemia associated with chronic renal failure D63.1 and Chronic kidney disease, stage 4 (severe) N18.4 [facility] [address] [address]- 4994 Feb, Anxiety F41.9 [facility] [id number] [place] [address] 40175- 1677 Feb, [facility] [address] [place] [address] 95137- 7779 Feb, [facility] [address] [address]- 0328 30 Jan, 2017 Other fatigue R53.83 ; Otalgia of both ears H92.03 and Urinary urgency R39.15 [facility] [address] [address]- 9180 Jan, Acute non-recurrent maxillary sinusitis J01.00 ; Chronic systolic heart failure I50.22 ; Stage 3 chronic kidney disease N18.3 and Mild depression F32.0 [facility] [id number] [address]- 9617 Sep, [facility] [id number] [place] [address] 31656- 3853 Sep, [facility] [id number] [place] [address] 50177- 2407 Feb, [facility] [id number] [place] [address] 31309- 0734 Feb, [facility] [address] [address]- 8927 Dec, [facility] [id number] [place] [address] 55153- 7755 Dec, [facility] [address] [address]- 5486 Nov, [facility] [address] [address]- 6801 Nov, [facility] [address] [address]- 4103 Nov, [facility] [id number] [place] [address] 82351- 4389 Nov, [facility] [address] [address]- 0020 October, [facility] [address] [address]- 8560 October, [facility] [place] [facility] [address] [id number] [place] [address]- 3765 Sep, [facility] [place] [facility] [address] [id number] [place] [address]- 6309 Sep, [facility] [place] [facility] [address] [id number] [place] [address]- 1246 Sep, [facility] [place] [facility] [address] [id number] [place] [address]- 9467 Sep, [facility] [place] [facility] [address] [id number] [place] [address]- 6175 Sep, [facility] [place] [facility] [address] [id number] [place] [address]- 4654 Aug, [facility] [place] [facility] [address] [id number] [place] [address]- 4398 Aug, [facility] [place] [facility] [address] [id number] [place] [address]- 5235 Aug, [facility] [place] [facility] [address] [id number] [place] [address]- 7488 Aug, [facility] [place] [facility] [address] [id number] [place] [address]- 0136 Aug, [facility] [place] [facility] [address] [id number] [place] [address]- 1176 Aug, [facility] [place] [facility] [address] [id number] [place] [address]- 3756 Aug, [facility] [place] [facility] [address] [id number] [place] [address]- 4845 Aug, [facility] [place] [facility] [address] [id number] [place] [address]- 3816 Jul, [facility] [place] [facility] [address] [id number] [place] [address]- 5826 Jul, [facility] [place] [facility] [address] [id number] [place] [address]- 6860 05 Jul, 2013 [facility] [address] [id number] [place] [address]- 5526 05 Jul, 2013 [facility] [place] [facility] [address] [id number] [place] 2122 Jul, [facility] [place] [facility] [address] [id number] [place] [address]- 6952 Jul, [facility] [place] [facility] [address] [id number] [place] [address]- 2493 Jun, [facility] [place] [facility] [address] [id number] [place] [address]- 5383 Jun, [facility] [place] [facility] [address] [id number] [place] [address]- 9843 Jun, [facility] [address] [id number] [place] [address]- 3774 Jun, [facility] [place] [facility] [address] [id number] [place] [address]- 0062 Jun, [facility] [place] [facility] [address] [id number] [place] [address]- 5716 May, [facility] [place] [facility] [address] [facility] [id number] [place] [address]- 6388 May, [facility] [place] [facility] [address] [id number] [place] [address]- 3705 May, [facility] [place] [facility] [address] [id number] [place] [address]- 2344 May, [facility] [place] [facility] [address] [id number] [place] [address]- 4743 May, [facility] [place] [facility] [address] [id number] [place] [address]- 4519 Apr, [facility] [place] [facility] [address] [id number] [place] 6409 Apr, [facility] [place] [facility] [address] [id number] [place] [address]- 1685 Mar, [facility] [place] [facility] [address] [id number] [place] [address]- 8607 Mar, [facility] [place] [facility] [address] [id number] [place] [address]- 7472 Mar, [facility] [place] [facility] [address] [id number] [place] [address]- 1958 Mar, [facility] [place] [facility] [address] [id number] [place] [address]- 5635 Feb, [facility] [place] [facility] [address] [id number] [place] [address]- 6316 Jan, [facility] [place] [facility] [address] [id number] [place] [address]- 9605 Jan, [facility] [place] [facility] [address] [id number] [place] [address]- 5287 Aug, [facility] [place] [facility] [address] [id number] [place] [address]- 5242 Jul, [facility] [place] [facility] [address] [id number] [place] [address]- 5449 Jun, [facility] [place] [facility] [address] [id number] [place] [address]- 7113 May, [facility] [place] [facility] [address] [id number] [place] [address]- 2975 May, [facility] [place] [facility] [address] [id number] [place] 4299 May, [facility] [place] [facility] [address] [id number] [place] [address]- 1209 May, [facility] [place] [facility] [address] [id number] [place] [address]- 1453 Apr, [facility] [place] [facility] [address] [id number] [address]- 3826 Apr, [facility] [place] [facility] [address] [id number] [place] [address]- 1758 Mar, [facility] [place] [facility] [address] [id number] [place] [address]- 8246 Mar, [facility] [place] [facility] [address] [id number] [place] [address]- 5569 Mar, [facility] [place] [facility] [address] [id number] [place] [address]- 2701 Mar, [facility] [place] [facility] [address] [id number] [place] [address]- 8760 Mar, [facility] [place] [facility] [address] [id number] [place] [address]- 7306 Mar, [facility] [place] [facility] [address] [id number] [place] [address]- 9656 Dec, [facility] [place] [facility] [address] [id number] [place] [address]- 7220 Dec, [facility] [place] [facility] [address] [id number] [place] [address]- 2929 Nov, [facility] [place] [facility] [address] [id number] [place] [address] 2546 Nov, [facility] [place] [facility] [address] [id number] [address]- 6186 October, [facility] [place] [facility] [address] [id number] [address]- 2546 October, [facility] [place] [facility] [address] [id number] [place] [address] 2546 Sep, [facility] [place] [facility] [address] [id number] [place] [address] 2546 Aug, [facility] [place] [facility] [address] [facility] [id number] [place] [address]- 2546 Aug, [facility] [place] [facility] [address] [facility] [id number] [place] [address]- 0157 Aug, IMMUNIZATIONS No Known Immunizations SOCIAL HISTORY Never Assessed REASON FOR VISIT Left breast swelling and redness PLAN OF CARE Activity Details Follow Up 2 Months Reason: VITAL SIGNS MEDICATIONS Medication Instructions Dosage Frequency Start Date End Date Duration Status Amiodarone HCl 200 MG Orally Once a day 1 tablet 24h 30 day(s) Active Multivitamin Adults - as directed Active Oxycodone HCl 5 mg Orally every 6 hrs 1 tablet as needed 6h Feb, 28 days Active Nystatin 233998 UNIT/GM Externally under both breasts Twice a day till healed 1 application to affected area Feb, Active Ipratropium-Albuterol 0.5-2.5 (3) MG/3ML Inhalation every 4 hrs 3 ml as needed 4h Active Triamcinolone Acetonide 0.5 % Externally under both breasts Twice a day 1 application to affected area 12h Feb, 5 days Active Sertraline HCl 100 mg Orally Once a day 1.5 tablet 24h Active Synthroid 25 MCG Orally Once a day 1 tablet on an empty stomach in the morning 24h 30 day(s) Active Ferrous Sulfate 325 (65 Fe) MG Orally Once a day 1 tablet 24h 30 day( s) Active Norvasc 5 MG Orally Once a day 1 tablet 24h 30 day(s) Active Magnesium Oxide 400 mg Orally Once a day 1 tablet 24h Active Preparation H Hydrocortisone 1 % Externally Twice a day and prn 1 application to affected area Feb, Mar, 10 days Active Omeprazole 40 MG Orally Once a day 1 capsule 24h 30 day(s) Active Carvedilol 3.125 MG Orally 2 times a day 1 tablet 12h Active Lorazepam 0.5 MG Orally everyday at bedtime 1 tablet Aug, 28 days Active ProAir HFA 108 (90 Base) MCG/ACT Inhalation every 6 hrs 2 puffs as needed 6h Active Senna 8.6 MG Orally twice a day 1 capsule 12h Feb, Apr, 30 day(s) Active Zofran 4 MG Orally every 8 hrs as needed 1 tablet Active RESULTS No Results PROCEDURES Procedure Date Ordered Result Body Site Stable Visit (10 minutes) Mar 19, 2018 INSTRUCTIONS MEDICATIONS ADMINISTERED No Known Medications MEDICAL (GENERAL) HISTORY Type Description Date Medical History hyperlipidemia Medical History htn Medical History kidney failure stage 4 - dx in 2012 Medical History hypothyroidisim Medical History neuropathy Medical History COPD - See's Dr Burnette [place] [facility] Medical History Chronic Heart Failure Surgical History 2 cesareans Surgical History defibrillator - 2012 Hospitalization History pneumonia for a week 2017 Hospitalization History Hospitalized at [facility]- CHF, Chest pain. Dismissed 07/11/17 07/10/2017 Hospitalization History [facility] pneumonia, hypoxia-[facility] 07/30/17 Hospitalization History [facility]- [facility] PNA, Respiratory Failure. Transfered to [facility] 10/25/2017 Hospitalization History CHF/COPD 11/2017
--- OUTSIDE RECORDS SUMMARY | 2018-04-24 19:49 | XMS REPORT ---
Author Author LEE SILVA Organization [facility] Address [address] [place] [address] Care Team Providers Care Medical Educator Name Role Phone LEE SILVA Unavailable PROBLEMS Type Condition ICD9-CM Code ROA28-LK Code Onset Dates Condition Status SNOMED Code Problem Psychophysiological insomnia F51.04 Active 909437303 Problem Chronic obstructive pulmonary disease, unspecified J44.9 Active 48004615 Problem Cardiomyopathy I42.9 Active 22318416 Problem Slow transit constipation K59.01 Active 43979554 Problem Acquired hypothyroidism E03.9 Active 877036359 Problem Supplemental oxygen dependent Z99.81 Active 591716793026 Problem Acute on chronic systolic CHF (congestive heart failure) I50.23 Active 266248756 Problem Chronic kidney disease, stage IV (severe) N18.4 Active 996511038 Problem COPD with acute lower respiratory infection J44.0 Active 262235432 Problem Essential hypertension I10 Active 53490075 Problem Anemia associated with chronic renal failure D63.1 Active 564879533 Problem Anxiety F41.9 Active 58808849 Problem Chronic systolic heart failure I50.22 Active 275553981 Problem Paroxysmal atrial fibrillation I48.0 Active 205152541 Problem Mild depression F32.0 Active 152136137 Problem Chronic obstructive pulmonary disease with (acute) exacerbation J44.1 Active 802657124 ALLERGIES No Information ENCOUNTERS Encounter Location Date Diagnosis [facility] [address] [facility] [id number] [place] [address] Mar, [facility] [address] [place] [id number] Feb, Vertigo R42 and Chronic kidney disease, stage IV (severe) N18.4 [facility] [address] [facility] [id number] [place] [address] Feb, [facility] [address] [place] [id number] 20 Feb, 2018 Cellulitis of breast N61.0 [facility] [id number] [place] [address] 56936- 9183 18 Feb, 2018 [facility] [id number] [place] [address] 91528- 3524 16 Feb, 2018 [place] [id number] [place] [address] 48362- 0482 12 Feb, 2018 Psychophysiological insomnia F51.04 [facility] [address] [place] [id number] 11 Feb, 2018 [place] [id number] [place] [address] 19107- 8455 10 Feb, 2018 [facility] [address] [place] [id number] 04 Feb, 2018 Chronic kidney disease, stage IV (severe) N18.4 ; Chronic systolic heart failure I50.22 ; COPD with acute lower respiratory infection J44.0 ; Vertigo R42 ; Slow transit constipation K59.01 ; Hemorrhoids, unspecified hemorrhoid type K64.9 ; Acquired hypothyroidism E03.9 ; Candidiasis of breast B37.89 and Difficulty in urination R39.198 [facility] [id number] [place] [address] 05797- 6399 Jan, Acute on chronic systolic CHF (congestive heart failure) I50.23 ; Acute kidney failure, unspecified N17.9 ; Chronic kidney disease, stage III (moderate) N18.3 and Supplemental oxygen dependent Z99.81 [facility] [id number] [place] [address] 43214- 7517 03 Jan, 2018 Acute on chronic combined systolic and diastolic CHF ( congestive heart failure) I50.43 [place] [id number] [place] [address] 95797- 5373 Jan, [facility] [address] [place] [address] 92805 -3003 Jan, Irritant contact dermatitis due to cosmetics L24.3 ; Effusion of right wrist M25.431 and Pain in right wrist M25.531 [place] [address] [place] [address] 26198- 2835 Dec, Chronic systolic heart failure I50.22 ; Chronic obstructive pulmonary disease with (acute) exacerbation J44.1 ; CKD (chronic kidney disease ) stage 4, GFR 15-29 ml/min N18.4 ; Cardiomyopathy I42.9 ; Dependence on supplemental oxygen Z99.81 and Psychophysiological insomnia F51.04 [place] [id number] [place] [address] 92544- 7851 Dec, Anxiety F41.9 [place] [id number] [place] [address] 45572- 7716 Dec, [place] [id number] [place] [address] 16462- 4332 Dec, [place] [id number] [place] [address] 01295- 4214 Dec, [facility] [address] [facility] [place] [id number] Dec, Encounter for examination for admission to correction Z02.2 ; Chronic obstructive pulmonary disease, unspecified J44.9 ; Paroxysmal atrial fibrillation I48.0 ; CKD (chronic kidney disease) stage 4, GFR 15-29 ml/min N18.4 and Cardiomyopathy I42.9 [place] [id number] [place] [address] 08196- 3267 Dec, [place] [id number] [place] [address] 82552- 9574 Nov, Acute on chronic combined systolic and diastolic CHF ( congestive heart failure) I50.43 [place] [id number] [place] [address] 51581- 3476 Nov, [place] [id number] [place] [address] 64390- 4227 Nov, [place] [id number] [place] [address] 00927- 7500 21 Singh, 2018 Chronic systolic heart failure I50.22 ; Paroxysmal atrial fibrillation I48.0 ; Chronic obstructive pulmonary disease with (acute) exacerbation J44.1 ; Chronic kidney disease, stage 4 (severe) N18.4 ; Pain in right hip M25.551 and Pain in left hip M25.552 [facility] [address] [place] [address] 73446- 9764 Nov, Chronic kidney disease, stage 4 (severe) N18.4 [facility] [id number] [place] [address] 77182- 4236 Nov, [facility] [id number] [place] [address] 08909- 2733 Nov, [facility] [id number] [place] [address] 28828- 9985 October, Chronic obstructive pulmonary disease with (acute) exacerbation J44.1 ; Chronic systolic heart failure I50.22 ; CKD (chronic kidney disease) stage 4, GFR 15-29 ml/min N18.4 and Dependence on supplemental oxygen Z99.81 [facility] [id number] [place] [address] 89131- 5059 October, [facility] [id number] [place] [address] 64491- 9808 October, [facility] [id number] [place] [address] 07729- 7162 Sep, Chronic kidney disease, stage 4 (severe) N18.4 and Chronic kidney disease, stage IV (severe) N18.4 [facility] [address] [place] [address] 21804- 4008 Sep, Chronic kidney disease, stage 4 (severe) N18.4 [facility] [address] [place] [address] 34840- 7118 Sep, Anxiety F41.9 ; Paroxysmal atrial fibrillation I48.0 ; Chronic kidney disease, stage 4 (severe) N18.4 ; Chronic systolic heart failure I50.22 and Anemia associated with chronic renal failure D63.1 [facility] [address] [address] Sep, [facility] [id number] [place] [address] 81169- 6128 Aug, [facility] [id number] [place] [address] 91349- 7231 Aug, [facility] [address] [place] [id number] Aug, Acute on chronic combined systolic and diastolic CHF (congestive heart failure) I50.43 ; Essential hypertension I10 ; CKD (chronic kidney disease) stage 4, GFR 15-29 ml/min N18.4 ; Paroxysmal atrial fibrillation I48.0 and Mild depression F32.0 [place] [id number] [place] [address] 48496- 1001 Aug, [place] [id number] [place] [address] 75608- 4389 Aug, [facility] [address] [place] [address] 08935- 1476 Aug, Acute on chronic respiratory failure with hypoxia J96.21 ; Acute kidney failure, unspecified N17.9 ; Chronic kidney disease, stage 4 ( severe) N18.4 ; Acute on chronic combined systolic and diastolic CHF ( congestive heart failure) I50.43 ; Paroxysmal atrial fibrillation I48.0 and Cardiomyopathy, unspecified type I42.9 [place] [address] [address] Aug, [facility] [address] [address] 6560 Jul, [facility] [id number] [place] [address] 63530- 1988 Jul, [facility] [address] [address] 7527 Jul, [facility] [id number] [place] [address] 70732- 9837 Jul, [facility] [address] [place] [address] 83764- 9810 Jul, Community acquired pneumonia of right lower lobe of lung J18.1 ; CKD (chronic kidney disease) stage 4, GFR 15-29 ml/min N18.4 and Shortness of breath R06.02 [facility] [address] [id number] Jul, [facility] [id number] [place] [address] 47898- 3827 Jun, Anxiety F41.9 [place] [address] 55029- 6933 Apr, Anxiety F41.9 [place] [id number] [place] [address] 93257- 6273 Apr, Cough R05 and Pneumonia of right lower lobe due to infectious organism J18.1 [facility] [id number] [place] [address] 74924- 2353 Apr, [place] [address] 12548- 5755 Apr, Chronic kidney disease, stage IV (severe) N18.4 and COPD exacerbation J44.1 [place] [id number] [place] [address] 68141- 6785 Feb, Chronic systolic heart failure I50.22 ; Essential hypertension I10 ; Anemia associated with chronic renal failure D63.1 and Chronic kidney disease, stage 4 (severe) N18.4 [facility] [id number] [place] [address] 08578- 8083 Feb, Anxiety F41.9 [facility] [id number] [place] [address] 27230- 4270 Feb, [place] [id number] [place] [address] 94988- 6612 Feb, [facility] [address] [address] 3533 30 Jan, 2017 Other fatigue R53.83 ; Otalgia of both ears H92.03 and Urinary urgency R39.15 [facility] [address] [address] 6173 24 Jan, 2017 Acute non-recurrent maxillary sinusitis J01.00 ; Chronic systolic heart failure I50.22 ; Stage 3 chronic kidney disease N18.3 and Mild depression F32.0 [facility] [id number] [place] [address] 19483- 1990 Sep, [facility] [id number] [place] [address] 55479- 3872 Sep, [facility] [id number] [place] [address] 52640- 7640 Feb, [facility] [id number] [place] [address] 25872- 0529 Feb, [facility] [address] [place] [address] 41592- 6982 Dec, [facility] [id number] [place] [address] 11641- 1768 Dec, [facility] [id number] [address] 4986 Nov, [facility] [id number] [place] [address] 59193- 7752 Nov, [facility] [address] [address]- 9159 Nov, [facility] [id number] [place] [address] 28978- 4615 Nov, [facility] [address] [address]- 0833 October, [facility] [id number] [place] [address] 58859- 7105 October, [facility] [place] [facility] [address] [id number] [place] [address]- 7937 Sep, [facility] [place] [facility] [address] [id number] [place] [address]- 2246 Sep, [facility] [place] [facility] [address] [id number] [place] [address]- 2405 Sep, [facility] [place] [facility] [address] [id number] [place] [address]- 5317 Sep, [facility] [place] [facility] [address] [id number] [place] 7910 Sep, [facility] [place] [facility] [address] [id number] [place] [address]- 5304 Aug, [facility] [place] [facility] [address] [id number] [place] [address]- 3994 Aug, [facility] [place] [facility] [address] [id number] [place] [address]- 2750 Aug, [facility] [place] [facility] [address] [id number] [place] [address]- 4431 Aug, [facility] [place] [facility] [address] [id number] [place] [address]- 1889 Aug, [facility] [place] [facility] [address] [id number] [place] [address]- 0309 Aug, [facility] [place] [facility] [address] [id number] [place] [address]- 4906 Aug, [facility] [place] [facility] [address] [id number] [place] [address]- 9687 Aug, [facility] [place] [facility] [address] [id number] [place] [address]- 5736 Jul, [facility] [place] [facility] [address] [id number] [place] [address]- 6540 Jul, [facility] [place] [facility] [address] [id number] [place] [address]- 4964 05 Jul, 2013 [facility] [address] [id number] [place] [address]- 8494 05 Jul, 2013 [facility] [place] [facility] [address] [id number] [place] [address] Jul, [facility] [address] [id number] [place] [address]- 3888 Jul, [facility] [place] [facility] [address] [id number] [place] [address]- 4274 Jun, [facility] [address] [id number] [place] [address]- 7344 Jun, [facility] [address] [id number] [place] [address]- 7749 Jun, [facility] [address] [id number] [place] [address]- 0865 Jun, [facility] [address] [id number] [place] [address]- 2793 Jun, [facility] [address] [id number] [place] [address]- 1913 May, [facility] [address] [id number] [place] [address]- 6326 May, [facility] [place] [facility] [address] [id number] [place] [address]- 7752 May, [facility] [place] [facility] [address] [id number] [place] [address]- 5848 May, [facility] [place] [facility] [address] [id number] [place] 0756 May, [facility] [place] [facility] [address] [id number] [place] [address]- 8656 Apr, [facility] [place] [facility] [address] [id number] [place] [address]- 5893 Apr, [facility] [place] [facility] [address] [id number] [place] [address]- 7038 Mar, [facility] [place] [facility] [address] [id number] [place] [address]- 8078 Mar, [facility] [place] [facility] [address] [id number] [place] [address]- 9920 Mar, [facility] [place] [facility] [address] [id number] [place] [address]- 5132 Mar, [facility] [place] [facility] [address] [id number] [place] [address]- 6399 Feb, [facility] [place] [facility] [address] [id number] [place] [address]- 5142 Jan, [facility] [place] [facility] [address] [id number] [place] [address]- 9691 Jan, [facility] [place] [facility] [address] [id number] [place] [address]- 3191 Aug, [facility] [place] [facility] [address] [id number] [place] [address]- 1271 Jul, [facility] [place] [facility] [address] [facility] [id number], [place] [address]- 6408 Jun, [facility] [place] [facility] [address] [facility] [id number] [place] [address]- 6707 May, [facility] [place] [facility] [address] [id number], [place] [address]- 7897 May, [facility] [place] [facility] [address] [id number] [place] [address]- 7307 May, [facility] [place] [facility] [address] [id number] [place] 2428 May, [facility] [place] [facility] [address] [facility] [id number], [place] [address]- 2322 Apr, [facility] [place] [facility] [address] [id number], [place] [address]- 0976 Apr, [facility] [place] [facility] [address] [id number] [place] [address]- 0545 Mar, [facility] [place] [facility] [address] [id number] [place] [address]- 7417 Mar, [facility] [place] [facility] [address] [facility] [id number] [place] [address]- 0910 Mar, [facility] [place] [facility] [address] [id number] [place] [address]- 8299 Mar, [facility] [place] [facility] [address] [id number] [place] [address]- 2782 Mar, [facility] [place] [facility] [address] [id number] [place] [address]- 0559 Mar, [facility] [place] [facility] [address] [facility] [id number] [place] [address]- 1342 Dec, [facility] [place] [facility] [address] [facility] [id number] [place] [address]- 3918 Dec, [facility] [place] [facility] [address] [facility] [id number] [place] [address]- 0439 Nov, [facility] [place] [facility] [address] [facility] [id number] [place] [address]- 2099 Nov, [facility] [place] [facility] [address] [facility] [id number], [place] [address]- 6307 October, [facility] [place] [facility] [address] [facility] [id number] [place] [address]- 0827 October, [facility] [place] [facility] [address] [id number] [place] [address]- 0849 Sep, [facility] [place] [facility] [address] [facility] [id number] [place] [address]- 1433 Aug, [facility] [place] [facility] [address] [facility] [id number] [place] [address]- 7106 Aug, [facility] [place] [facility] [address] [facility] [id number] [place] [address]- 8260 Aug, IMMUNIZATIONS No Known Immunizations SOCIAL HISTORY Never Assessed REASON FOR VISIT Shelter PLAN OF CARE Activity Details Follow Up prn Reason: VITAL SIGNS MEDICATIONS Medication Instructions Dosage Frequency Start Date End Date Duration Status Fluticasone Propionate 50 MCG/ACT Nasally twice a day 1 spray in each nostril 12h 25 Feb, 2018 30 day(s) Active RESULTS No Results PROCEDURES Procedure Date Ordered Result Body Site Minor complication (15 mins) Mar 24, 2018 INSTRUCTIONS MEDICATIONS ADMINISTERED No Known Medications [...] a week 2016 Hospitalization History Hospitalized at [facility]- CHF, Chest pain. Dismissed 07/11/17 07/10/2017 Hospitalization History RLL pneumonia, hypoxia-[facility] 07/30/[address] [facility]- RLL PNA, Respiratory Failure. Transfered to [place] 10/25/2017 Hospitalization History CHF/COPD 11/2017
--- OUTSIDE RECORDS SUMMARY | 2018-04-24 19:50 | XMS REPORT ---
Author Author LEE SILVA [facility] Address [address] [place] [address] Care Team Providers Care Internist Name Role Phone LEE SILVA Unavailable PROBLEMS Type Condition ICD9-CM Code XVJ88-II Code Onset Dates Condition Status SNOMED Code Problem Psychophysiological insomnia F51.04 Active 160981321 Problem Chronic obstructive pulmonary disease, unspecified J44.9 Active 98967455 Problem Cardiomyopathy I42.9 Active 12301961 Problem Slow transit constipation K59.01 Active 20680222 Problem Acquired hypothyroidism E03.9 Active 866469823 Problem Supplemental oxygen dependent Z99.81 Active 986262989688 Problem Acute on chronic systolic CHF (congestive heart failure) I50.23 Active 064253032 Problem Chronic kidney disease, stage IV (severe) N18.4 Active 941073739 Problem COPD with acute lower respiratory infection J44.0 Active 307902966 Problem Essential hypertension I10 Active 55404372 Problem Anemia associated with chronic renal failure D63.1 Active 212157569 Problem Anxiety F41.9 Active 72450608 Problem Chronic systolic heart failure I50.22 Active 169667646 Problem Paroxysmal atrial fibrillation I48.0 Active 691080215 Problem Mild depression F32.0 Active 731748301 Problem Chronic obstructive pulmonary disease with (acute) exacerbation J44.1 Active 075337947 ALLERGIES No Information ENCOUNTERS Encounter Location Date Diagnosis [facility] [address] [place] [id number] Feb, Vertigo R42 and Chronic kidney disease, stage IV (severe) N18.4 [facility] [id number] [address] Feb, [facility] [address] [place] [id number] Feb, Cellulitis of breast N61.0 [facility] [address] [address] 18 Feb, 2018 [facility] [id number] [place] [address] 23582- 2669 16 Feb, 2018 [place] [id number] [place] [address] 23967- 6199 12 Feb, 2018 Psychophysiological insomnia F51.04 [facility] [address] [place] [id number] Feb, [place] [id number] [place] [address] 11926- 3659 10 Feb, 2018 [facility] [address] [place] [id number] 04 Feb, 2018 Chronic kidney disease, stage IV (severe) N18.4 ; Chronic systolic heart failure I50.22 ; COPD with acute lower respiratory infection J44.0 ; Vertigo R42 ; Slow transit constipation K59.01 ; Hemorrhoids, unspecified hemorrhoid type K64.9 ; Acquired hypothyroidism E03.9 ; Candidiasis of breast B37.89 and Difficulty in urination R39.198 [place] [id number] [place] [address] 97138- 0507 Jan, Acute on chronic systolic CHF (congestive heart failure) I50.23 ; Acute kidney failure, unspecified N17.9 ; Chronic kidney disease, stage III (moderate) N18.3 and Supplemental oxygen dependent Z99.81 [place] [id number] [place] [address] 65486- 0669 Jan, Acute on chronic combined systolic and diastolic CHF ( congestive heart failure) I50.43 [place] [id number] [place] [address] 60499- 7693 Jan, [facility] [id number] [place] [address] 00552 -8257 Jan, Irritant contact dermatitis due to cosmetics L24.3 ; Effusion of right wrist M25.431 and Pain in right wrist M25.531 [place] [id number] [place] [address] 25612- 9368 Dec, Chronic systolic heart failure I50.22 ; Chronic obstructive pulmonary disease with (acute) exacerbation J44.1 ; CKD (chronic kidney disease ) stage 4, GFR 15-29 ml/min N18.4 ; Cardiomyopathy I42.9 ; Dependence on supplemental oxygen Z99.81 and Psychophysiological insomnia F51.04 [place] [id number] [place] [address] 27302- 2081 Dec, Anxiety F41.9 [place] [id number] [place] [address] 40934- 2140 Dec, [place] [id number] [place] [address] 77750- 3539 Dec, [place] [id number] [place] [address] 03435- 4729 Dec, [facility] [address] [place] [id number] Dec, Encounter for examination for admission to [facility] Z02.2 ; Chronic obstructive pulmonary disease, unspecified J44.9 ; Paroxysmal atrial fibrillation I48.0 ; CKD (chronic kidney disease) stage 4, GFR 15-29 ml/min N18.4 and Cardiomyopathy I42.9 [place] [id number] [place] [address] 62439- 8770 Dec, [place] [id number] [place] [address] 57324- 9671 Nov, Acute on chronic combined systolic and diastolic CHF ( congestive heart failure) I50.43 [place] [address] [place] [address] 70800- 7249 Nov, [place] [id number] [place] [address] 10742- 9557 Nov, [place] [id number] [place] [address] 77426- 9952 Nov, Chronic systolic heart failure I50.22 ; Paroxysmal atrial fibrillation I48.0 ; Chronic obstructive pulmonary disease with (acute) exacerbation J44.1 ; Chronic kidney disease, stage 4 (severe) N18.4 ; Pain in right hip M25.551 and Pain in left hip M25.552 [place] [id number] [place] [address] 07768- 6738 Nov, Chronic kidney disease, stage 4 (severe) N18.4 [place] [id number] [place] [address] 80112- 0171 Nov, [place] [id number] [place] [address] 08784- 9178 Nov, [place] [id number] [place] [address] 22231- 9020 October, Chronic obstructive pulmonary disease with (acute) exacerbation J44.1 ; Chronic systolic heart failure I50.22 ; CKD (chronic kidney disease) stage 4, GFR 15-29 ml/min N18.4 and Dependence on supplemental oxygen Z99.81 [place] [id number] [place] [address] 21990- 2468 October, [place] [id number] [place] [address] 51422- 5927 October, [place] [id number] [place] [address] 84384- 8328 Sep, Chronic kidney disease, stage 4 (severe) N18.4 and Chronic kidney disease, stage IV (severe) N18.4 [place] [id number] [place] [address] 81404- 9725 Sep, Chronic kidney disease, stage 4 (severe) N18.4 [place] [id number] [place] [address] 18712- 6295 Sep, Anxiety F41.9 ; Paroxysmal atrial fibrillation I48.0 ; Chronic kidney disease, stage 4 (severe) N18.4 ; Chronic systolic heart failure I50.22 and Anemia associated with chronic renal failure D63.1 [place] [id number] [place] [address] 23558- 5452 Sep, [facility] [address] [address] 7634 Aug, [facility] [id number] [place] [address] 68030- 3779 Aug, [facility] [address] [place] [id number] Aug, Acute on chronic combined systolic and diastolic CHF (congestive heart failure) I50.43 ; Essential hypertension I10 ; CKD (chronic kidney disease) stage 4, GFR 15-29 ml/min N18.4 ; Paroxysmal atrial fibrillation I48.0 and Mild depression F32.0 [facility] [id number] [place] [address] 07063- 9374 Aug, [facility] [id number] [place] [address] 88062- 7258 Aug, [facility] [id number] [place] [address] 90107- 8705 Aug, Acute on chronic respiratory failure with hypoxia J96.21 ; Acute kidney failure, unspecified N17.9 ; Chronic kidney disease, stage 4 ( severe) N18.4 ; Acute on chronic combined systolic and diastolic CHF ( congestive heart failure) I50.43 ; Paroxysmal atrial fibrillation I48.0 and Cardiomyopathy, unspecified type I42.9 [facility] [address] [address] 9498 Aug, [facility] [address] [address] 7227 Jul, [facility] [address] [address] 6059 Jul, [facility] [id number] [place] [address] 53482- 5856 Jul, [facility] [address] [address] 8341 Jul, [facility] [id number] [place] [address] 39181- 4678 06 Jul, 2017 Community acquired pneumonia of right lower lobe of lung J18.1 ; CKD (chronic kidney disease) stage 4, GFR 15-29 ml/min N18.4 and Shortness of breath R06.02 [facility] [id number] [place] [address] [id number] 05 Jul, 2017 [place] [id number] [place] [address] 44592- 9844 Jun, Anxiety F41.9 [place] [address] 7[address]- 8679 Apr, Anxiety F41.9 [place] [address] 36788- 9043 Apr, Cough R05 and Pneumonia of right lower lobe due to infectious organism J18.1 [address] [address] [id number] [place] [address] 97626- 6413 Apr, [place] [id number] [place] [address] 05645- 9878 Apr, Chronic kidney disease, stage IV (severe) N18.4 and COPD exacerbation J44.1 [address] [id number] [place] [address] 38382- 0412 Feb, Chronic systolic heart failure I50.22 ; Essential hypertension I10 ; Anemia associated with chronic renal failure D63.1 and Chronic kidney disease, stage 4 (severe) N18.4 [place] [id number] [place] [address] 16535- 9549 Feb, Anxiety F41.9 [place] [id number] [place] [address] 53976- 9152 Feb, [place] [id number] [place] [address] 80233- 1418 Feb, [place] [id number] [place] [address] 39536- 2377 Jan, Other fatigue R53.83 ; Otalgia of both ears H92.03 and Urinary urgency R39.15 [facility] [id number] [place] [address] 37589- 4158 Jan, Acute non-recurrent maxillary sinusitis J01.00 ; Chronic systolic heart failure I50.22 ; Stage 3 chronic kidney disease N18.3 and Mild depression F32.0 [facility] [id number] [place] [address] 64907- 3877 Sep, [facility] [id number] [place] [address] 02690- 9582 Sep, [facility] [id number] [place] [address] 90101- 8951 Feb, [facility] [id number] [place] [address] 86014- 7370 Feb, [facility] [id number] [place] [address] 35884- 6545 Dec, [facility] [id number] [place] [address] 82247- 8937 Dec, [facility] [id number] [place] [address] 28422- 2057 Nov, [facility] [id number] [address]- 9867 Nov, [facility] [id number] [place] [address] 80424- 8470 Nov, [facility] [address] [address]- 0457 Nov, [facility] [id number] [place] [address] 912626- 2277 October, [facility] [id number] [address]- 0516 October, [facility] [id number] [place] [address] 27584- 2093 Sep, [facility] [place] [facility] [address] [id number] [place] [address]- 0633 Sep, [facility] [place] [facility] [address] [id number] [place] [address]- 8362 Sep, [facility] [place] [facility] [address] [id number] [place] 4029 Sep, [facility] [place] [facility] [address] [id number] [place] [address]- 5112 Sep, [facility] [place] [facility] [address] [id number] [place] [address]- 7215 Aug, [facility] [place] [facility] [address] [id number] [place] [address]- 1753 Aug, [facility] [place] [facility] [address] [id number] [place] [address]- 1184 Aug, [facility] [place] [facility] [address] [id number] [place] [address]- 5772 Aug, [facility] [place] [facility] [address] [id number] [place] [address]- 6333 Aug, [facility] [place] [facility] [address] [id number] [place] [address]- 4928 Aug, [facility] [place] [facility] [address] [id number] [place] [address]- 6696 Aug, [facility] [place] [facility] [address] [id number] [place] [address]- 3142 Aug, [facility] [place] [facility] [address] [id number] [place] 0779 Jul, [facility] [place] [facility] [address] [id number] [place] [address]- 5766 Jul, [facility] [place] [facility] [address] [id number] [place] [address]- 3867 Jul, [facility] [place] [facility] [address] [id number] [place] [address]- 3912 05 Jul, 2013 [facility] [address] [id number] [place] [address]- 7978 Jul, [facility] [address] [id number] [place]- 1661 03 Jul, 2013 [facility] [address] [id number] [place] [address]- 6740 31 Jun, 2013 [facility] [address] [id number] [place] [address]- 7748 14 Jun, 2013 [facility] [address] [id number] [place] [address]- 5867 14 Jun, 2013 [facility] [address] [id number] [place] [address]- 0924 Jun, [facility] [address] [id number] [place] [address]- 5146 Jun, [facility] [address] [id number] [place] [address]- 3041 May, [facility] [address] [id number] [place] [address]- 2643 May, [facility] [address] [facility] [id number] [place] [address]- 4667 May, [facility] [address] [id number] [place] [address]- 0333 May, [facility] [address] [id number] [place] [address]- 2122 May, [facility] [place] [facility] [address] [id number] [place] [address]- 4347 Apr, [facility] [place] [facility] [address] [id number] [place] [address]- 9617 Apr, [facility] [address] [id number] [place] [address]- 7517 Mar, [facility] [place] [facility] [address] [id number] [place] [address]- 1823 Mar, [facility] [place] [facility] [address] [id number] [place] [address]- 6072 Mar, [facility] [place] [facility] [address] [id number] [place] [address]- 0717 Mar, [facility] [place] [facility] [address] [id number] [place] [address]- 1724 Feb, [facility] [place] [facility] [address] [id number] [place] [address]- 9790 Jan, [facility] [place] [facility] [address] [id number] [place] [address]- 8073 Jan, [facility] [address] [facility] [id number] [place] [address]- 0928 Aug, [facility] [place] [facility] [address] [id number] [place] [address]- 3785 Jul, [facility] [place] [facility] [address] [id number] [place] [address]- 5498 Jun, [facility] [place] [facility] [address] [id number] [place] [address]- 6673 May, [facility] [place] [facility] [address] [id number] [address]- 2678 May, [facility] [place] [facility] [address] [id number] [address]- 9394 May, [facility] [place] [facility] [address] [id number] [place]- 4223 May, [facility] [place] [facility] [address] [id number] [place] [address]- 5911 Apr, [facility] [place] [facility] [address] [facility] [id number] [place] [address]- 4893 Apr, [facility] [place] [facility] [address] [id number] [address]- 7576 Mar, [facility] [address] [facility] [id number] [place] [address]- 4888 Mar, [facility] [address] [facility] [id number] [place] [address]- 8116 Mar, [facility] [address] [place] [address]- 1506 Mar, [facility] [address] [facility] [id number] [place] [address]- 4606 Mar, [facility] [address] [facility] [id number] [place] [address]- 6824 Mar, [facility] [id number] [place] [address]- 8176 Dec, [facility] [address] [address]- 9602 Dec, [facility] [address] [address]- 3366 Nov, [facility] [address] [address]- 5652 Nov, [facility] [address] [address]- 6916 October, [facility] [address] [address]- 5786 October, [facility] [id number] [address]- 3114 Sep, [facility] [id number] [address]- 0840 Aug, [facility] [id number] [address]- 8396 Aug, [facility] [id number] [address]- 1557 Aug, IMMUNIZATIONS No Known Immunizations SOCIAL HISTORY Never Assessed REASON FOR VISIT Med list update PLAN OF CARE VITAL SIGNS MEDICATIONS Medication Instructions Dosage Frequency Start Date End Date Duration Status Oxycodone HCl 5 mg Orally every 6 hrs 1 tablet as needed 6h Feb, 28 days Active Multivitamin Adults - as directed Active Amiodarone HCl 200 MG Orally Once a day 1 tablet 24h 30 day(s) Active Lorazepam 0.5 MG Orally everyday at bedtime 1 tablet Aug, 28 days Active Norvasc 5 MG Orally Once a day 1 tablet 24h 30 day(s) Active Preparation H Hydrocortisone 1 % Externally Twice a day and prn 1 application to affected area Feb, Mar, 10 days Active Synthroid 25 MCG Orally Once a day 1 tablet on an empty stomach in the morning 24h 30 day(s) Active Omeprazole 40 MG Orally Once a day 1 capsule 24h 30 day(s) Active Ipratropium-Albuterol 0.5-2.5 (3) MG/3ML Inhalation every 4 hrs 3 ml as needed 4h Active Ferrous Sulfate 325 (65 Fe) MG Orally Once a day 1 tablet 24h 30 day( s) Active Magnesium Oxide 400 mg Orally Once a day 1 tablet 24h Active Senna 8.6 MG Orally twice a day 1 capsule 12h Feb, Apr, 30 day(s) Active Zofran 4 MG Orally every 8 hrs as needed 1 tablet Active Carvedilol 3.125 MG Orally 2 times a day 1 tablet 12h Active Nystatin 469062 UNIT/GM Externally under both breasts Twice a day till healed 1 application to affected area Feb, Active Sertraline HCl 100 mg Orally Once a day 1.5 tablet 24h Active Triamcinolone Acetonide 0.5 % Externally under both breasts Twice a day 1 application to affected area 12h Feb, 5 days Active ProAir HFA 108 (90 Base) MCG/ACT Inhalation every 6 hrs 2 puffs as needed 6h Active RESULTS No Results PROCEDURES No Known procedures INSTRUCTIONS MEDICATIONS ADMINISTERED No Known Medications MEDICAL (GENERAL) HISTORY Type Description Date Medical History hyperlipidemia Medical History htn Medical History kidney failure stage 4 - dx in 2012 Medical History hypothyroidisim Medical History neuropathy Medical History COPD - See's Dr Burnette in [facility] Medical History Chronic Heart Failure Surgical History 2 cesareans Surgical History defibrillator - 2012 Hospitalization History pneumonia for a week 2017 Hospitalization History Hospitalized at [facility]- CHF, Chest pain. Dismissed 07/11/17 07/10/2017 Hospitalization History [facility] pneumonia, hypoxia-VC 07/30/17 Hospitalization History [facility]- [facility] PNA, Respiratory Failure. Transfered to [place] 10/25/2017 Hospitalization History CHF/COPD 11/2017
--- OUTSIDE RECORDS SUMMARY | 2018-04-24 19:50 | XMS REPORT ---
Author Author CEZAR JORDAN [facility] Address [address] [place] [address] Care Team Providers Care Cylinder Steamer Name Role Phone CEZAR JORDAN Unavailable PROBLEMS Type Condition ICD9-CM Code WZC19-ZH Code Onset Dates Condition Status SNOMED Code Problem Psychophysiological insomnia F51.04 Active 379363710 Problem Chronic obstructive pulmonary disease, unspecified J44.9 Active 75721687 Problem Cardiomyopathy I42.9 Active 00103881 Problem Slow transit constipation K59.01 Active 23691346 Problem Acquired hypothyroidism E03.9 Active 824623971 Problem Supplemental oxygen dependent Z99.81 Active 907204299921 Problem Acute on chronic systolic CHF (congestive heart failure) I50.23 Active 740903350 Problem Chronic kidney disease, stage IV (severe) N18.4 Active 809065589 Problem COPD with acute lower respiratory infection J44.0 Active 496857682 Problem Essential hypertension I10 Active 83630429 Problem Anemia associated with chronic renal failure D63.1 Active 985475568 Problem Anxiety F41.9 Active 84081393 Problem Chronic systolic heart failure I50.22 Active 955126067 Problem Paroxysmal atrial fibrillation I48.0 Active 463020332 Problem Mild depression F32.0 Active 917785845 Problem Chronic obstructive pulmonary disease with (acute) exacerbation J44.1 Active 050404654 ALLERGIES No Information ENCOUNTERS Encounter Location Date Diagnosis [facility] [address] [place] [id number] Feb, Vertigo R42 and Chronic kidney disease, stage IV (severe) N18.4 [facility] [place] [id number], [place] [address] Feb, [facility] [address] [place] [id number] Feb, Cellulitis of breast N61.0 [facility] [place] [address] [id number], [place] [address] 18 Feb, 2018 [place] [address], [place] [address] 16 Feb, 2018 [place] [id number] [place] [address] 83859- 2019 12 Feb, 2018 Psychophysiological insomnia F51.04 [facility] [address] [place] [id number] Feb, [place] [id number] [place] [address] 49492- 5651 10 Feb, 2018 [facility] [address] [place] [id number] 04 Feb, 2018 Chronic kidney disease, stage IV (severe) N18.4 ; Chronic systolic heart failure I50.22 ; COPD with acute lower respiratory infection J44.0 ; Vertigo R42 ; Slow transit constipation K59.01 ; Hemorrhoids, unspecified hemorrhoid type K64.9 ; Acquired hypothyroidism E03.9 ; Candidiasis of breast B37.89 and Difficulty in urination R39.198 [place] [id number] [place] [address] 87429- 6516 Jan, Acute on chronic systolic CHF (congestive heart failure) I50.23 ; Acute kidney failure, unspecified N17.9 ; Chronic kidney disease, stage III (moderate) N18.3 and Supplemental oxygen dependent Z99.81 [place] [id number], [place] [address] 0651 Jan, Acute on chronic combined systolic and diastolic CHF ( congestive heart failure) I50.43 [place] [id number] [place] [address] 88660- 0856 Jan, [facility] [id number] [place] [address] 27812 -0693 Jan, Irritant contact dermatitis due to cosmetics L24.3 ; Effusion of right wrist M25.431 and Pain in right wrist M25.531 [place] [id number] [place] [address] 78817- 8668 Dec, Chronic systolic heart failure I50.22 ; Chronic obstructive pulmonary disease with (acute) exacerbation J44.1 ; CKD (chronic kidney disease ) stage 4, GFR 15-29 ml/min N18.4 ; Cardiomyopathy I42.9 ; Dependence on supplemental oxygen Z99.81 and Psychophysiological insomnia F51.04 [place] [id number] [place] [address] 22956- 1426 Dec, Anxiety F41.9 [place] [id number] [place] [address] 48729- 0352 Dec, [place] [id number] [place] [address] 41177- 0013 Dec, [place] [id number] [place] [address] 92042- 2525 Dec, [facility] [address] [place] [id number] Dec, Encounter for examination for admission to longterm Z02.2 ; Chronic obstructive pulmonary disease, unspecified J44.9 ; Paroxysmal atrial fibrillation I48.0 ; CKD (chronic kidney disease) stage 4, GFR 15-29 ml/min N18.4 and Cardiomyopathy I42.9 [place] [id number] [place] [address] 03877- 8258 Dec, [place] [id number] [place] [address] 92020- 3912 Nov, Acute on chronic combined systolic and diastolic CHF ( congestive heart failure) I50.43 [place] [id number] [place] [address] 28138- 8550 Nov, [place] [id number] [place] [address] 66661- 9859 Nov, [place] [id number] [place] [address] 61786- 1439 Nov, Chronic systolic heart failure I50.22 ; Paroxysmal atrial fibrillation I48.0 ; Chronic obstructive pulmonary disease with (acute) exacerbation J44.1 ; Chronic kidney disease, stage 4 (severe) N18.4 ; Pain in right hip M25.551 and Pain in left hip M25.552 [place] [id number] [place] [address] 50340- 0264 Nov, Chronic kidney disease, stage 4 (severe) N18.4 [facility] [place] [id number] [place] [address] 62817- 0873 Nov, [facility] [place] [id number] [place] [address] 40850- 6895 Nov, [place] [id number] [place] [address] 45086- 8370 October, Chronic obstructive pulmonary disease with (acute) exacerbation J44.1 ; Chronic systolic heart failure I50.22 ; CKD (chronic kidney disease) stage 4, GFR 15-29 ml/min N18.4 and Dependence on supplemental oxygen Z99.81 [place] [id number] [place] [address] 96968- 3245 October, [place] [id number] [place] [address] 14538- 0832 October, [place] [id number] [place] [address] 81659- 7185 Sep, Chronic kidney disease, stage 4 (severe) N18.4 and Chronic kidney disease, stage IV (severe) N18.4 [place] [id number] [place] [address] 79915- 5001 Sep, Chronic kidney disease, stage 4 (severe) N18.4 [place] [id number] [place] [address] 55129- 4340 Sep, Anxiety F41.9 ; Paroxysmal atrial fibrillation I48.0 ; Chronic kidney disease, stage 4 (severe) N18.4 ; Chronic systolic heart failure I50.22 and Anemia associated with chronic renal failure D63.1 [facility] [place] [id number] [place] [address] 69976- 3854 Sep, [facility] [place] [address], [place] [address] 6870 Aug, [facility] [place] [id number] [place] [address] 81407- 1547 Aug, [facility] [address] [place] [id number] Aug, Acute on chronic combined systolic and diastolic CHF (congestive heart failure) I50.43 ; Essential hypertension I10 ; CKD (chronic kidney disease) stage 4, GFR 15-29 ml/min N18.4 ; Paroxysmal atrial fibrillation I48.0 and Mild depression F32.0 [facility] [place] [id number] [place] [address] 76015- 8956 Aug, [facility] [place] [id number] [place] [address] 01412- 1319 Aug, [facility] [place] [id number] [place] [address] 91924- 7482 Aug, Acute on chronic respiratory failure with hypoxia J96.21 ; Acute kidney failure, unspecified N17.9 ; Chronic kidney disease, stage 4 ( severe) N18.4 ; Acute on chronic combined systolic and diastolic CHF ( congestive heart failure) I50.43 ; Paroxysmal atrial fibrillation I48.0 and Cardiomyopathy, unspecified type I42.9 [facility] [place] [address], [place] [address] 0791 Aug, [facility] [place] [address], [place] [address]- 4685 Jul, [facility] [place] [address], [place] [address]- 0523 Jul, [facility] [place] [id number] [place] [address] 36293- 3116 Jul, [facility] [place] [id number] [place] [address] 56323- 4834 Jul, [facility] [place] [id number] [place] [address] 15672- 9762 Jul, Community acquired pneumonia of right lower lobe of lung J18.1 ; CKD (chronic kidney disease) stage 4, GFR 15-29 ml/min N18.4 and Shortness of breath R06.02 [facility] [id number] [place] [address] [id number] Jul, [place] [id number] [place] [address] 06625- 6659 Jun, Anxiety F41.9 [place] [address] [address]16- 8374 Apr, Anxiety F41.9 [place] [address] [address]59- 7944 Apr, Cough R05 and Pneumonia of right lower lobe due to infectious organism J18.1 [place] [id number] [place] [address] 16552- 4046 Apr, [place] [id number] [place] [address] 51947- 1861 Apr, Chronic kidney disease, stage IV (severe) N18.4 and COPD exacerbation J44.1 [place] [id number] [place] [address] 34094- 3873 Feb, Chronic systolic heart failure I50.22 ; Essential hypertension I10 ; Anemia associated with chronic renal failure D63.1 and Chronic kidney disease, stage 4 (severe) N18.4 [place] [id number] [place] [address] 94833- 7059 Feb, Anxiety F41.9 [place] [id number] [place] [address] 12273- 1849 Feb, [place] [id number] [place] [address] 17288- 4256 Feb, [place] [id number] [place] [address] 94872- 3027 Jan, Other fatigue R53.83 ; Otalgia of both ears H92.03 and Urinary urgency R39.15 [facility] [place] [address], [place] [address] Jan, Acute non-recurrent maxillary sinusitis J01.00 ; Chronic systolic heart failure I50.22 ; Stage 3 chronic kidney disease N18.3 and Mild depression F32.0 [facility] [place] [address], [place] [address]- 3636 14 Sep, 2014 [facility] [place] [id number], [place] [address]- 5880 Sep, [facility] [place] [id number] [place] [address] 06042- 1526 Feb, [facility] [place] [id number], [place] [address]- 7438 Feb, [facility] [place] [id number], [place] [address]- 7283 Dec, [facility] [place] [address], [place] [address]- 5924 Dec, [facility] [place] [id number], [place] [address]- 4094 Nov, [facility] [place] [address], [place] [address]- 1871 Nov, [facility] [place] [address], [place] [address]- 9782 Nov, [facility] [place] [address], [place] [address]- 5909 Nov, [facility] [place] [address], [place] [address]- 6250 October, [facility] [place] [address], [place] [address]- 2163 October, [facility] [place] [address], [place] [address]- 8236 Sep, [facility] [place] [facility] [address] [id number] [place] [address]- 4608 08 Sep, 2013 [facility] [place] [facility] [address] [id number] [place] [address]- 2892 Sep, [facility] [place] [facility] [address] [id number] [place] [address]- 2027 Sep, [facility] [place] [facility] [address] [id number] [place] [address]- 7958 Sep, [facility] [place] [facility] [address] [id number] [place] [address]- 3578 Aug, [facility] [place] [facility] [address] [id number] [place] [address]- 8539 Aug, [facility] [place] [facility] [address] [id number] [place] [address]- 4531 Aug, [facility] [place] [facility] [address] [id number] [place] [address]- 8138 Aug, [facility] [place] [facility] [address] [id number] [place] [address]- 8287 Aug, [facility] [place] [facility] [address] [id number] [place] [address]- 7684 Aug, [facility] [place] [facility] [address] [id number] [place] [address]- 1032 Aug, [facility] [place] [facility] [address] [id number] [place] [address]- 1423 Aug, [facility] [place] [facility] [address] [id number] [place] [address]- 1699 Jul, [facility] [place] [facility] [address] [id number] [place] [address]- 7531 Jul, [facility] [place] [facility] [address] [id number] [place] [address]- 4398 Jul, [facility] [place] [facility] [address] [id number], [place] [address]- 4256 05 Jul, 2013 [facility] [address] [id number] [place] [address]- 6930 Jul, [facility] [place] [facility] [address] [id number] [place] [address]- 3950 Jul, [facility] [place] [facility] [address] [facility] [id number] [place] [address]- 9560 Jun, [facility] [place] [facility] [address] [id number] [place] [address]- 4013 Jun, [facility] [place] [facility] [address] [id number] [place] [address]- 7827 Jun, [facility] [place] [facility] [address] [id number] [place] [address]- 2154 Jun, [facility] [address] [facility] [id number], [place] [address]- 2228 Jun, [facility] [place] [facility] [address] [id number] [place] [address]- 3764 May, [facility] [place] [facility] [address] [id number] [place] [address]- 0258 May, [facility] [place] [facility] [address] [facility] [id number] [place] [address]- 1005 May, [facility] [place] [facility] [address] [id number], [place] [address]- 0021 May, [facility] [place] [facility] [address] [id number], [place] [address]- 3678 May, [facility] [place] [facility] [address] [id number], [place] [address]- 8125 Apr, [facility] [place] [facility] [address] [id number], [place] [address]- 4284 Apr, [facility] [place] [facility] [address] [facility] [id number], [place] [address]- 1266 Mar, [facility] [place] [facility] [address] [id number] [place] [address] 2549 Mar, [facility] [place] [facility] [address] [id number] [place] [address]- 9481 Mar, [facility] [place] [facility] [address] [id number] [place] [address]- 2546 Mar, [facility] [place] [facility] [address] [id number] [place] [address]- 0668 Feb, [facility] [place] [facility] [address] [id number] [place] [address]- 9789 Jan, [facility] [place] [facility] [address] [id number] [place] [address]- 1348 Jan, [facility] [place] [facility] [address] [id number] [place] [address]- 9777 Aug, [facility] [place] [facility] [address] [id number] [place] [address]- 2865 Jul, [facility] [place] [facility] [address] [id number] [place] [address]- 4132 Jun, [facility] [place] [facility] [address] [id number] [place] [address]- 6419 May, [facility] [place] [facility] [address] [id number] [place] [address]- 8292 May, [facility] [place] [facility] [address] [id number] [place] [address]- 0012 May, [facility] [place] [facility] [address] [id number] [place] [address]- 0374 May, [facility] [place] [facility] [address] [id number] [place] [address]- 3086 Apr, [facility] [place] [facility] [address] [id number] [place] [address]- 2546 Apr, [facility] [place] [facility] [address] [id number] [place] [address]- 1628 Mar, [facility] [place] [facility] [address] [facility] [id number] [place] [address]- 0835 Mar, [facility] [place] [facility] [address] [facility] [id number], [place] [address]- 6116 Mar, [facility] [place] [facility] [address] [facility] [id number], [place] [address] 2546 Mar, [facility] [place] [facility] [address] [facility] [id number], [place] [address] 2546 Mar, [facility] [place] [facility] [address] [facility] [id number] [place] [address]- 8706 Mar, [facility] [place] [facility] [address] [facility] [id number], [place] [address] 2546 Dec, [facility] [address] [facility] [id number], [place] [address]- 2546 Dec, [facility] [place] [facility] [address] [facility] [id number], [place] [address]- 7806 Nov, [facility] [id number], [place] [address]- 1016 Nov, [facility] [id number], [place] [address]- 7896 October, [facility] [id number], [place] [address]- 2546 October, [facility] [address] [facility] [id number], [place] [address] 2546 Sep, [facility] [address] [facility] [id number], [place] [address] 2546 Aug, [facility] [address] [facility] [id number], [place] [address]- 7816 Aug, [facility] [id number], [place] [address] 2546 Aug, IMMUNIZATIONS No Known Immunizations SOCIAL HISTORY Never Assessed REASON FOR VISIT halfway PLAN OF CARE VITAL SIGNS MEDICATIONS Unknown Medications RESULTS No Results PROCEDURES No Known procedures INSTRUCTIONS MEDICATIONS ADMINISTERED No Known Medications MEDICAL (GENERAL) HISTORY Type Description Date Medical History hyperlipidemia Medical History htn Medical History kidney failure stage 4 - dx in 2012 Medical History hypothyroidisim Medical History neuropathy Medical History COPD - See's Dr Burnette in [facility] Medical History Chronic Heart Failure Surgical History 2 cesareans Surgical History defibrillator - 2012 Hospitalization History pneumonia for a week 2016 Hospitalization History Hospitalized at [facility]- CHF, Chest pain. Dismissed 07/11/17 07/10/2017 Hospitalization History [facility] pneumonia, hypoxia-[facility] 07/30/17 Hospitalization History [facility]- RLL PNA, Respiratory Failure. Transfered to [place] 10/25/2017 Hospitalization History CHF/COPD 11/2017
[2018-04-24 19:58] LABS: BASOPHILS # (AUTO) 0.1 10^3/uL (0.0-0.1); BASOPHILS % (AUTO) 1 % (0-10); EOSINOPHILS # (AUTO) 0.1 10^3/uL (0.0-0.3); EOSINOPHILS % (AUTO) 1 % (0-10); HEMATOCRIT 29 % (35-52); HEMOGLOBIN 8.9 G/DL (11.5-16.0); LYMPHOCYTES # (AUTO) 0.7 X 10^3 (1.0-4.0); LYMPHOCYTES % (AUTO) 10 % (12-44); MEAN CORPUSCULAR HGB CONC 31 G/DL (32-36); MEAN CORPUSCULAR VOLUME 98 FL (80-99); MEAN PLATELET VOLUME 11.6 FL (7.4-10.4); MONOCYTES # (AUTO) 0.7 X 10^3 (0.0-1.0); MONOCYTES % (AUTO) 10 % (0-12); NEUTROPHILS # (AUTO) 5.8 X 10^3 (1.8-7.8); NEUTROPHILS % (AUTO) 79 % (42-75); PLATELET COUNT 264 10^3/uL (130-400); RED BLOOD COUNT 2.92 10^6/uL (4.35-5.85); RED CELL DISTRIBUTION WIDTH 18.5 % (10.0-14.5); WHITE BLOOD COUNT 7.3 10^3/uL (4.3-11.0)
[2018-04-24 19:59] LABS: MEAN CORPUSCULAR HEMOGLOBIN 30 PG (25-34)
[2018-04-24] MEDS ORDERED: RT-ALBUTEROL/IPRATROPIUM 3 ML (DUONEB) VIAL INH ONE (20:00)
[2018-04-24 20:09] LABS: INR 1.1 (0.8-1.4); PROTHROMBIN TIME PATIENT 14.1 SEC (12.2-14.7)
--- NOTE | 2018-04-24 20:11 | ED Cardiac General ---
History of Present Illness General Chief Complaint: Chest Pain Stated Complaint: CP Nursing Triage Note: L CHEST PAIN RADIATING TO BACK SINCE APPROX. 1445. HD TODAY Source: patient, EMS Exam Limitations: no limitations History of Present Illness Date Seen by Provider: Apr 24, 2018 Time Seen by Provider: 19:45 Initial Comments Patient is a 57-year-old female who presents to the emergency room with complaints of left-sided chest pain that radiates to her back since 1400 today. She is a resident of [facility] and they reported to EMS that she often has chest pain but they did not give any medications for her chest pain. She is a dialysis patient and received her dialysis today without difficulty and completed that at 1200 today. She also received a dose of heparin when completing dialysis per protocol. She is a patient of Dr. Teagan Vernon at [facility] she has an extensive history of COPD with exacerbations. She is alert and oriented on arrival to the emergency room. EMS did give her 1 nitroglycerin in route that did not improve her chest pain. Her chest pain is left-sided, substernal and radiates to her back. She denies any dizziness, lightheadedness. She is also short of breath with audible wheezes. 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 She will refuse to take this medication and reports it as an allergy. Home Medications Acetaminophen 500 Mg Tablet, 1,000 MG PO Q6H PRN for PAIN-MILD, (Reported) Amiodarone HCl 200 Mg Tablet, 200 MG PO DAILY, (Reported) Calcium Carbonate 300 Mg Tab.chew, 300 MG PO QID PRN for INDIGESTION, (Reported) Carvedilol 12.5 Mg Tablet, 12.5 MG PO BID, (Reported) Ferrous Sulfate 325 Mg Tablet, 325 MG PO DAILY, (Reported) Furosemide 10 Mg/1 Ml Vial, 100 MG IVP BID@0500,1700 Prescribed by: SAM GIBBS on 12/26/17 1047 Ipratropium/Albuterol Sulfate 3 Ml Ampul.neb, 3 ML NEB TID, (Reported) Ipratropium/Albuterol Sulfate 3 Ml Ampul.neb, 3 ML IH Q4H PRN for SHORTNESS OF BREATH, (Reported) Isosorbide Mononitrate 30 Mg Tab.er.24h, 15 MG PO BID, (Reported) TAKES 1/2 (30MG) TABLET Levothyroxine Sodium 25 Mcg Tablet, 25 MCG PO DAILY, (Reported) Loperamide HCl 2 Mg Capsule, 2 MG PO UD PRN for DIARRHEA, (Reported) Lorazepam 0.5 Mg Tablet, 0.5 MG PO HS, (Reported) Magnesium Oxide 400 Mg Tablet, 400 MG PO DAILY, (Reported) Multivitamins-Min/FA/Ginkgo 1 Each Tablet, 1 TAB PO DAILY, (Reported) Omeprazole 40 Mg Capsule.dr, 40 MG PO DAILY, (Reported) Ondansetron 4 Mg Tab.rapdis, 4 MG SL Q6H PRN for NAUSEA/VOMITING-1ST LINE, ( Reported) Oxycodone HCl 5 Mg Tablet, 5 MG PO Q4H PRN for PAIN-SEVERE, (Reported) Sertraline HCl 100 Mg Tablet, 150 MG PO HS, (Reported) TAKES 1 & 1/2 OF A (100 MG) TABLET Patient Home Medication List Home Medication List Reviewed: Yes Review of Systems Review of Systems Constitutional: see HPI; No chills, No fever Respiratory: See HPI, Shortness of Air, SOA at Rest, Wheezing Cardiovascular: See HPI, Chest Pain All Other Systems Reviewed Negative Unless Noted: Yes Past Dqdsoev-Mhzshg-Qiukac Hx Past Med/Social Hx: Reviewed Nursing Past Med/Soc Hx Patient Social History Alcohol Use: Denies Use Recreational Drug Use: No Smoking Status: Former Smoker Type Used: Cigarettes Former Smoker, Quit: Jul 09, 2017 2nd Hand Smoke Exposure: No Recent Foreign Travel: No Contact w/Someone Who Travel: No Recent Infectious Disease Expo: No Recent Hopitalizations: No Immunizations Up To Date Tetanus Booster (TDap): Unknown PED Vaccines UTD: No Date of Pneumonia Vaccine: Mar 30, 2013 Date of Influenza Vaccine: Jul 11, 2017 Seasonal Allergies Seasonal Allergies: Yes Past Medical History Surgeries: Yes (CARDIAC CATH--NO INTERVENTION, DEFIBRILLATOR PLACEMENT, R ARM FISTULA, R HE) Cardiac, Section, Defibrillator, Hysterectomy, Vascular Surgery Respiratory: Yes Asthma, Pneumonia, COPD Currently Using CPAP: No Currently Using BIPAP: No Cardiac: Yes (CHF EF 20% non ischemic, left atrial thrombus) Atrial Fibrillation, Cardiomyopathy, High Cholesterol, Hypertension Neurological: Yes Headaches /Migraines : No 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 Disorders: Yes (Hysterectomy) 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 Disorders: Denies ALLERGIST/MD History: Menopausal Sexually Transmitted Disease: No HIV/AIDS: No Genitourinary: Yes (HD MWF) Renal Failure Gastrointestinal: Yes (history of elevated transaminases, HX of elevated liver enzymes) Gastroesophageal Reflux, Hiatal Hernia Musculoskeletal: Yes Arthritis Endocrine: Yes Hypothyroidsim HEENT: Yes Cataract Loss of Vision: Denies Hearing Impairment: Denies Cancer: No Bladder Psychosocial: Yes Sleep Difficulties, Anxiety, Depression Integumentary: No Blood Disorders: No Adverse Reaction/Blood Tranf: No Family Medical History Reviewed Nursing Family Hx Cancer 19 FATHER (HODGKINS ) 19 MOTHER (BRAIN TUMOR ) Congenital heart disease 19 MOTHER Congestive heart failure 19 MOTHER Family history: Cardiovascular disease 19 MOTHER G8 SISTER G8 SISTER Family history: Hypertension 19 MOTHER G8 SISTER G8 SISTER Heart disease 19 MOTHER G8 SISTER G8 SISTER History of - respiratory disease 19 MOTHER G8 BROTHER G8 SISTER Heart Disease, Cancer, Hypertension Physical Exam Vital Signs Vital Signs - First Documented Capillary Refill : Less Than 3 Seconds Height, Weight, BMI Height: 4'9.00" Weight: 149lbs. 6.0oz. 67.079429hk; 34.6 BMI Method:Stated General Appearance: No Apparent Distress, WD/WN HEENT: PERRL/EOMI, Pharynx Normal Neck: Full Range of Motion, Normal Inspection, Non Tender Respiratory: No Accessory Muscle Use, No Respiratory Distress, Wheezing ( expiratory wheezes on auscultation.), Other (left-sided chest tenderness on my palpation.) Cardiovascular: Regular Rate, Rhythm, No Edema, No Gallop, No JVD, No Murmur, Normal Peripheral Pulses Gastrointestinal: Normal Bowel Sounds, Non Tender Extremity: Normal Capillary Refill, No Pedal Edema Neurologic/Psychiatric: Alert, Oriented x3, Normal Mood/Affect Skin: Normal Color, Warm/Dry Focused Exam Lactate Level 04/24/18 21:10: Lactic Acid Level 0.79 Lactic Acid Level Laboratory Tests Test 04/24/18 21:10 Lactic Acid Level 0.79 MMOL/L (0.50-2.00) Procedures/Interventions Date of ETT Placement: Aug 20, 2017 Time of ETT Placement: 628 Progress/Results/Core Measures Results/Orders Lab Results Laboratory Tests Test 04/24/18 19:50 04/24/18 21:10 Range/Units White Blood Count 7.3 4.3-11.0 10^3/uL Red Blood Count 2.92 L 4.35-5.85 10^6/uL Hemoglobin 8.9 L 11.5-16.0 G/DL Hematocrit 29 L 35-52 % Mean Corpuscular Volume 98 80-99 FL Mean Corpuscular Hemoglobin 30 25-34 PG Mean Corpuscular Hemoglobin Concent 31 L 32-36 G/DL Red Cell Distribution Width 18.5 H 10.0-14.5 % Platelet Count 264 130-400 10^3/uL Mean Platelet Volume 11.6 H 7.4-10.4 FL Neutrophils (%) (Auto) 79 H 42-75 % Lymphocytes (%) (Auto) 10 L 12-44 % Monocytes (%) (Auto) 10 0-12 % Eosinophils (%) (Auto) 1 0-10 % Basophils (%) (Auto) 1 0-10 % Neutrophils # (Auto) 5.8 1.8-7.8 X 10^3 Lymphocytes # (Auto) 0.7 L 1.0-4.0 X 10^3 Monocytes # (Auto) 0.7 0.0-1.0 X 10^3 Eosinophils # (Auto) 0.1 0.0-0.3 10^3/uL Basophils # (Auto) 0.1 0.0-0.1 10^3/uL Prothrombin Time 14.1 12.2-14.7 SEC INR Comment 1.1 0.8-1.4 Activated Partial Thromboplast Time 36 H 24-35 SEC Sodium Level 133 L 135-145 MMOL/L Potassium Level 4.0 3.6-5.0 MMOL/L Chloride Level 96 L 98-107 MMOL/L Carbon Dioxide Level 25 21-32 MMOL/L Anion Gap 12 5-14 MMOL/L Blood Urea Nitrogen 5 L 7-18 MG/DL Creatinine 1.64 H 0.60-1.30 MG/DL Estimat Glomerular Filtration Rate 32 BUN/Creatinine Ratio 3 Glucose Level 114 H 70-105 MG/DL Calcium Level 9.1 8.5-10.1 MG/DL Corrected Calcium 9.7 8.5-10.1 MG/DL Magnesium Level 1.9 1.8-2.4 MG/DL Total Bilirubin 0.7 0.1-1.0 MG/DL Aspartate Amino Transf (AST/SGOT) 48 H 5-34 U/L Alanine Aminotransferase (ALT/SGPT) 28 0-55 U/L Alkaline Phosphatase 99 40-136 U/L Myoglobin 56.1 10.0-92.0 NG/ML Troponin I < 0.30 <0.30 NG/ML B-Type Natriuretic Peptide 7757.5 H <100.0 PG/ML Total Protein 6.3 L 6.4-8.2 GM/DL Albumin 3.3 3.2-4.5 GM/DL Lactic Acid Level 0.79 0.50-2.00 MMOL/L My Orders Orders - BERNOT,ZENAIDA Cbc With Automated Diff (04/24/18 19:48) Magnesium (04/24/18 19:48) Chest 1 View, Ap/Pa Only (04/24/18 19:48) Ekg Tracing (04/24/18 19:48) Cardiac Profile 1 (04/24/18 19:48) Comprehensive Metabolic Panel (04/24/18 19:48) Myoglobin Serum (04/24/18 19:48) Protime With Inr (04/24/18 19:48) Partial Thromboplastin Time (04/24/18 19:48) O2 (04/24/18 19:48) Monitor-Rhythm Ecg Trace Only (04/24/18 19:48) Saline Lock/Iv-Start (04/24/18 19:48) Albuterol/Ipra Inhalation Soln (Duoneb I (04/24/18 20:00) BNP (04/24/18 20:22) Blood Culture (04/24/18 20:56) Lactic Acid Analyzer (04/24/18 20:56) Meropenem (Merrem 500 Mg) (04/24/18 21:45) Ondansetron Injection (Zofran Injectio (04/24/18 22:15) Furosemide Injection (Lasix Injection) (04/24/18 22:15) Joiner Cath (04/24/18 23:00) Medications Given in ED Current Medications Medications Dose Ordered Sig/Cade Route Start Time Stop Time Status Last Admin Dose Admin Albuterol/ Ipratropium 3 ml ONCE ONCE INH 04/24/18 20:00 04/24/18 20:01 DC 04/24/18 20:13 3 ML Furosemide 80 mg ONCE ONCE IVP 04/24/18 22:15 04/24/18 22:16 DC 04/24/18 22:41 80 MG Meropenem 500 mg/ Sodium Chloride 100 ml @ 200 mls/hr ONCE ONCE IV 04/24/18 21:45 04/24/18 22:14 DC 04/24/18 21:56 200 MLS/HR Ondansetron HCl 4 mg ONCE ONCE IVP 04/24/18 22:15 04/24/18 22:16 DC 04/24/18 22:41 4 MG Vital Signs/I&O 04/24/18 04/24/18 04/24/18 04/24/18 19:45 19:45 19:45 20:13 Temp 98.6 Pulse 89 Resp 18 B/P (MAP) 131/79 (96) Pulse Ox 96 96 98 O2 Delivery Nasal Cannula Nasal Cannula Nasal Cannula Nasal Cannula O2 Flow Rate 3.0 3.0 3.00 04/24/18 23:40 Temp 98.4 Pulse 94 Resp 18 B/P (MAP) 141/78 (99) Pulse Ox 98 O2 Delivery Nasal Cannula O2 Flow Rate 3.00 04/24/18 23:59 Intake Total 100 ml Balance 100 ml Blood Pressure Mean: 96 Progress Progress Note : Time: 21:35 Progress Note I have seen and evaluated the patient. Her chest tightness and pain has let up with breathing treatment. Her lung sounds have cleared up at this time. I've informed her of her laboratory findings and imaging studies she agrees to be transferred to [place] for further inpatient services and need for dialysis. I spoke to Dr. Quispe ([facility] hospitalist) at this time and he agrees to accept the patient to his services and recommends giving 80 of Lasix prior to transfer and starting meropenem for broad-spectrum antibiotic coverage. The patient agrees with plan of care. EKG : EKG Time: 19:52 Rate: 88 Rhythm: Normal Sinus Intervals: Normal ECG Comparisson: Unchanged ECG Impression: Nonspecific Changes Comment Left bundle branch block. Diagnostic Imaging Diagonstic Imaging: Xray Plain Films/CT/US/NM/MRI: chest Comments VIA [facility] [address] [place], [place] NAME: WYATT KULKARNI [facility] REC#: [id number] PT STATUS: REG ER : 1960 PHYSICIAN: ZENAIDA CHUNG ADMIT DATE: 04/24/18/ER Draft Date of Exam:04/24/18 CHEST 1 VIEW, AP/PA ONLY INDICATION: Chest pain. Comparison with 04/13/2018. FINDINGS: Cardiomegaly is again noted. Pulmonary venous congestion with bilateral perihilar and lower lobe alveolar infiltrates. There is obscuration of the left hemidiaphragm today. ICD pacer on the left in good position, unchanged. A double-lumen central catheter on the right unchanged in position. IMPRESSION: Little overall change in appearance when compared with previous exam. Findings are again compatible with congestive failure with cardiomegaly. Could not exclude superimposed pneumonia in the left lower lobe. Dictated on workstation # [id number] Dict: 04/24/182020 Trans: 04/24/182026 [facility] [id number] Interpreted by: MARY BORREGO MD Electronically signed by: Reviewed: Reviewed by Me Departure Impression Primary Impression: Acute on chronic systolic CHF (congestive heart failure) Additional Impressions: Anemia secondary to renal failure Chronic kidney disease, stage 4, severely decreased GFR Pneumonia Qualified Codes: J18.1 - Lobar pneumonia, unspecified organism Disposition: SHT-TRM HOSP Condition: Stable/Unchanged Departure-Patient Inst. Referrals: TEAGAN VERNON MD (PCP/Family) Primary Care Physician Copy Copies To 1: TEAGAN VERNON MD, TRAVIS Apr 24, 2018 20:11
[2018-04-24 20:18] LABS: ALANINE AMINOTRANSFERASE 28 U/L (0-55); ALBUMIN 3.3 GM/DL (3.2-4.5); ALKALINE PHOSPHATASE 99 U/L (40-136); BILIRUBIN,TOTAL 0.7 MG/DL (0.1-1.0); BUN/CREATININE RATIO 3; CALCIUM 9.1 MG/DL (8.5-10.1); CARBON DIOXIDE 25 MMOL/L (21-32); CHLORIDE 96 MMOL/L (98-107); CREATININE SERUM 1.64 MG/DL (0.60-1.30); GFR ESTIMATED 32; GLUCOSE 114 MG/DL (70-105); MAGNESIUM 1.9 MG/DL (1.8-2.4); SODIUM 133 MMOL/L (135-145); TOTAL PROTEIN 6.3 GM/DL (6.4-8.2)
[2018-04-24 20:24] LABS: MYOGLOBIN SERUM 56.1 NG/ML (10.0-92.0)
--- NOTE | 2018-04-24 20:28 | Diagnostic Imaging Report ---
INDICATION: Chest pain. Comparison with 04/13/2018. FINDINGS: Cardiomegaly is again noted. Pulmonary venous congestion with bilateral perihilar and lower lobe alveolar infiltrates. There is obscuration of the left hemidiaphragm today. ICD pacer on the left in good position, unchanged. A double-lumen central catheter on the right unchanged in position. IMPRESSION: Little overall change in appearance when compared with previous exam. Findings are again compatible with congestive failure with cardiomegaly. Could not exclude superimposed pneumonia in the left lower lobe. Dictated by: Dictated on workstation # [id number]
[2018-04-24] MEDS ORDERED: MEROPENEM 500 MG in NS (IVPB) 100 ML IV ONE (21:45)
[2018-04-24] MEDS ORDERED: ONDANSETRON 4 MG/2 ML (SDV) Z0FRAN IVP ONE (22:15)
[2018-04-24] MEDS ORDERED: FUROSEMIDE 40 MG/4 ML INJ (LASIX) IVP ONE (22:15)
[2018-04-24 23:40] VITALS: BP 141/78
== END 2018-04-24 23:45 | disposition short-term general hospital (02) ==
LOC: EDUNIT# 19:43 → ER 19:44
DX: I13.0 Hypertensive heart and chronic kidney disease with heart failure and stage 1 through stage 4 chronic kidney disease, or unspecified chronic kidney disease (principal); N18.4 Chronic kidney disease, stage 4 (severe); I50.23 Acute on chronic systolic (congestive) heart failure; D63.1 Anemia in chronic kidney disease; J18.9 Pneumonia, unspecified organism; J44.9 Chronic obstructive pulmonary disease, unspecified; E78.00 Pure hypercholesterolemia, unspecified; I42.9 Cardiomyopathy, unspecified; I48.91 Unspecified atrial fibrillation; E03.9 Hypothyroidism, unspecified; G43.909 Migraine, unspecified, not intractable, without status migrainosus; F41.9 Anxiety disorder, unspecified; F32.9 Major depressive disorder, single episode, unspecified; K21.9 Gastro-esophageal reflux disease without esophagitis; Z85.51 Personal history of malignant neoplasm of bladder; Z80.7 Family history of other malignant neoplasms of lymphoid, hematopoietic and related tissues; Z82.49 Family history of ischemic heart disease and other diseases of the circulatory system; Z88.8 Allergy status to other drugs, medicaments and biological substances; Z87.891 Personal history of nicotine dependence; Z87.19 Personal history of other diseases of the digestive system; Z87.01 Personal history of pneumonia (recurrent); Z95.810 Presence of automatic (implantable) cardiac defibrillator; Z98.890 Other specified postprocedural states; Z90.710 Acquired absence of both cervix and uterus
CPT/HCPCS: 36415; 51702; 71045; 80053; 83605; 83735; 83874; 83880; 84484; 85025; 85027; 85610; 85730; 87040; 93005; 93041; 94640; 96365; 96375

== ENCOUNTER 2018-06-13 21:31 | Emergency (ER) | payer MEDICARE, MEDICAID ==
[~2018-06-13] VITALS: Ht 144.8 cm; Wt 67.8 kg
--- OUTSIDE RECORDS SUMMARY | 2018-06-13 21:37 | XMS REPORT ---
Author Author TEAGAN VERNON [facility] Address [address] [place] [address] Care Team Providers Care Technician [employer] Name Role Phone TEAGAN VERNON Unavailable PROBLEMS Type Condition ICD9-CM Code UQR98-LS Code Onset Dates Condition Status SNOMED Code Problem Cardiomyopathy I42.9 Active 39506955 Problem Acute on chronic systolic CHF (congestive heart failure) I50.23 Active 202285526 Problem Chronic obstructive pulmonary disease, unspecified J44.9 Active 49880371 Problem Gastroesophageal reflux disease without esophagitis K21.9 Active 473264149 Problem Chronic kidney disease, stage IV (severe) N18.4 Active 440936153 Problem Acquired hypothyroidism E03.9 Active 537796627 Problem Supplemental oxygen dependent Z99.81 Active 532175762035 Problem COPD with acute lower respiratory infection J44.0 Active 631351077 Problem Slow transit constipation K59.01 Active 47651216 Problem Essential hypertension I10 Active 14170056 Problem Chronic systolic heart failure I50.22 Active 711302739 Problem Anxiety F41.9 Active 40461054 Problem Paroxysmal atrial fibrillation I48.0 Active 696180708 Problem Mild depression F32.0 Active 487840590 Problem Chronic obstructive pulmonary disease with (acute) exacerbation J44.1 Active 536576902 Problem Anemia associated with chronic renal failure D63.1 Active 664605833 Problem Psychophysiological insomnia F51.04 Active 372628044 ALLERGIES No Information ENCOUNTERS Encounter Location Date Diagnosis [facility] [address] [facility] [id number], [place] [address] May, [facility] [address] [id number], [place] [address] May, [facility] [address] [facility] [id number], [place] [address] Apr, [facility] [address] [place] [id number] Apr, Mild depression F32.0 ; Essential hypertension I10 ; Chronic systolic heart failure I50.22 ; Chronic obstructive pulmonary disease with (acute) exacerbation J44.1 ; Paroxysmal atrial fibrillation I48.0 ; Chronic kidney disease, stage IV (severe) N18.4 ; Acquired hypothyroidism E03.9 ; Clotted dialysis access, sequela T82.49XS ; Psychophysiological insomnia F51.04 and Gastroesophageal reflux disease without esophagitis K21.9 [place] [id number] [place] [address] 37774- 3846 Apr, Psychophysiological insomnia F51.04 [place] [id number] [place] [address] 07339- 7367 14 Apr, 2018 [place] [id number] [place] [address] 34450- 2909 Apr, [place] [address] [address] Mar, [facility] [address] [place] [id number] Mar, Acute respiratory failure with hypoxia J96.01 ; Acute pancreatitis, unspecified complication status, unspecified pancreatitis type K85.90 ; Chronic kidney disease, stage IV (severe) N18.4 ; Rash R21 and Gastroesophageal reflux disease without esophagitis K21.9 [place] [id number] [place] [address] 07084- 0292 Mar, Psychophysiological insomnia F51.04 [place] [id number] [place] [address] 31093- 6392 Mar, [facility] [address] [id number] Feb, Vertigo R42 and Chronic kidney disease, stage IV (severe) N18.4 [place] [id number] [place] [address] 86047- 0039 Feb, [facility] [address] [id number] Feb, Cellulitis of breast N61.0 [place] [address], [place] [address] 18 Feb, 2018 [facility] [address], [place] [address] 16 Feb, 2018 [place] [address]65[address], [place] [address] 12 Feb, 2018 Psychophysiological insomnia F51.04 [facility] [address] [place] [id number] 11 Feb, 2018 Urinary tract infection without hematuria, site unspecified N39.0 ; Chronic kidney disease, stage IV (severe) N18.4 and Chronic systolic heart failure I50.22 [place] [id number] [place] [address] 98810- 9651 10 Feb, 2018 [facility] [address] [place] [id number] 04 Feb, 2018 Chronic kidney disease, stage IV (severe) N18.4 ; Chronic systolic heart failure I50.22 ; COPD with acute lower respiratory infection J44.0 ; Vertigo R42 ; Slow transit constipation K59.01 ; Hemorrhoids, unspecified hemorrhoid type K64.9 ; Acquired hypothyroidism E03.9 ; Candidiasis of breast B37.89 and Difficulty in urination R39.198 [place] [address], [place] [address] Jan, Acute on chronic systolic CHF (congestive heart failure) I50.23 ; Acute kidney failure, unspecified N17.9 ; Chronic kidney disease, stage III (moderate) N18.3 and Supplemental oxygen dependent Z99.81 [place] [address], [place] [address] 4[address] Jan, Acute on chronic combined systolic and diastolic CHF ( congestive heart failure) I50.43 [place] [address], [place] [address] Jan, [facility] [address], [place] [address] Jan, Irritant contact dermatitis due to cosmetics L24.3 ; Effusion of right wrist M25.431 and Pain in right wrist M25.531 [place] [id number] [place] [address] 44879- 6868 Dec, Chronic systolic heart failure I50.22 ; Chronic obstructive pulmonary disease with (acute) exacerbation J44.1 ; CKD (chronic kidney disease ) stage 4, GFR 15-29 ml/min N18.4 ; Cardiomyopathy I42.9 ; Dependence on supplemental oxygen Z99.81 and Psychophysiological insomnia F51.04 [place] [id number] [place] [address] 86000- 9538 Dec, Anxiety F41.[address] 19806- 7798 Dec, [place] [address] [address]- 8232 Dec, [place] [address] [address]- 5280 Dec, [facility] [address] [place] [id number] Dec, Encounter for examination for admission to [facility] Z02.2 ; Chronic obstructive pulmonary disease, unspecified J44.9 ; Paroxysmal atrial fibrillation I48.0 ; CKD (chronic kidney disease) stage 4, GFR 15-29 ml/min N18.4 and Cardiomyopathy I42.9 [place] [id number] [place] [address] 17947- 4230 Dec, [place] [id number] [place] [address] 37151- 6187 Nov, Acute on chronic combined systolic and diastolic CHF ( congestive heart failure) I50.43 [place] [id number] [place] [address] 18501- 8526 Nov, [place] [id number] [place] [address] 42192- 1208 Nov, [place] [address] 07402- 7601 Nov, Chronic systolic heart failure I50.22 ; Paroxysmal atrial fibrillation I48.0 ; Chronic obstructive pulmonary disease with (acute) exacerbation J44.1 ; Chronic kidney disease, stage 4 (severe) N18.4 ; Pain in right hip M25.551 and Pain in left hip M25.552 [facility] [address], [place] [address] Nov, Chronic kidney disease, stage 4 (severe) N18.4 [facility] [id number] [place] [address] 25376- 8736 Nov, [facility] [id number] [place] [address] 74601- 6810 Nov, [facility] [id number] [place] [address] 13653- 9534 October, Chronic obstructive pulmonary disease with (acute) exacerbation J44.1 ; Chronic systolic heart failure I50.22 ; CKD (chronic kidney disease) stage 4, GFR 15-29 ml/min N18.4 and Dependence on supplemental oxygen Z99.81 [facility] [address] [place] [address] 27574- 0890 October, [facility] [id number] [place] [address] 62490- 9129 October, [facility] [address], [place] [address] 4040 Sep, Chronic kidney disease, stage 4 (severe) N18.4 and Chronic kidney disease, stage IV (severe) N18.4 [facility] [address], [place] [address] 6714 Sep, Chronic kidney disease, stage 4 (severe) N18.4 [facility] [address], [place] [address] 7043 Sep, Anxiety F41.9 ; Paroxysmal atrial fibrillation I48.0 ; Chronic kidney disease, stage 4 (severe) N18.4 ; Chronic systolic heart failure I50.22 and Anemia associated with chronic renal failure D63.1 [facility] [address], [place] [address] 7574 Sep, [facility] [address], [place] [address] 3692 Aug, [facility] [address], [place] [address] 3042 Aug, [facility] [address] [place] [id number] Aug, Acute on chronic combined systolic and diastolic CHF (congestive heart failure) I50.43 ; Essential hypertension I10 ; CKD (chronic kidney disease) stage 4, GFR 15-29 ml/min N18.4 ; Paroxysmal atrial fibrillation I48.0 and Mild depression F32.0 [place] [address], [place] [address]- 5862 Aug, [place] [address], [place] [address]- 2561 Aug, [facility] [address], [place] [address]- 7738 Aug, Acute on chronic respiratory failure with hypoxia J96.21 ; Acute kidney failure, unspecified N17.9 ; Chronic kidney disease, stage 4 ( severe) N18.4 ; Acute on chronic combined systolic and diastolic CHF ( congestive heart failure) I50.43 ; Paroxysmal atrial fibrillation I48.0 and Cardiomyopathy, unspecified type I42.9 [facility] [address], [place] [address] 7102 Aug, [facility] [address], [place] [address]- 7029 Jul, [facility] [address], [place] [address]- 3819 Jul, [facility] [address], [place] [address]- 2058 Jul, [facility] [id number] [place] [address] 59072- 0941 07 Jul, 2017 [place] [id number] [place] [address] 03457- 0265 Jul, Community acquired pneumonia of right lower lobe of lung J18.1 ; CKD (chronic kidney disease) stage 4, GFR 15-29 ml/min N18.4 and Shortness of breath R06.02 [facility] [address] [id number] Jul, [place] [id number] [place] [address] 92476- 2125 Jun, Anxiety F41.9 [place] [address] 91026- 9819 Apr, Anxiety F41.[address] 80003- 9349 Apr, Cough R05 and Pneumonia of right lower lobe due to infectious organism J18.1 [place] [id number] [place] [address] 33847- 2153 Apr, [address] 50647- 6787 Apr, Chronic kidney disease, stage IV (severe) N18.4 and COPD exacerbation J44.1 [place] [id number] [place] [address] 79771- 1794 Feb, Chronic systolic heart failure I50.22 ; Essential hypertension I10 ; Anemia associated with chronic renal failure D63.1 and Chronic kidney disease, stage 4 (severe) N18.4 [place] [id number] [place] [address] 29909- 2381 Feb, Anxiety F41.9 [facility] [id number] [place] [address] 71160- 5584 Feb, [place] [address] 32149- 4799 Feb, [facility] [address], [place] [address]- 5930 Jan, Other fatigue R53.83 ; Otalgia of both ears H92.03 and Urinary urgency R39.15 [facility] [address] [id number], [place] [address] 5892 Jan, Acute non-recurrent maxillary sinusitis J01.00 ; Chronic systolic heart failure I50.22 ; Stage 3 chronic kidney disease N18.3 and Mild depression F32.0 [facility] [id number] [place] [address] 60843- 7629 Sep, [facility] [id number] [place] [address] 96547- 8305 Sep, [facility] [id number] [place] [address] 35412- 9489 Feb, [facility] [id number] [place] [address] 25821- 7744 Feb, [facility] [id number] [place] [address] 28332- 2785 Dec, [facility] [id number] [place] [address] 44748- 2072 Dec, [facility] [address], [place] [address]- 5778 Nov, [facility] [id number] [place] [address] 35267- 1163 Nov, [facility] [id number] [place] [address] 30300- 8562 Nov, [facility] [id number] [place] [address] 99563- 0625 Nov, [facility] [address], [place] [address]- 7606 October, [facility] [id number] [place] [address], [place] [address]- 3519 October, [facility] [place] [facility] [address] [id number] [place] [address]- 9877 Sep, [facility] [place] [facility] [address] [id number] [place] [address]- 8183 Sep, [facility] [place] [facility] [address] [id number] [place] [address]- 0497 Sep, [facility] [place] [facility] [address] [id number] [place] [address]- 2401 Sep, [facility] [place] [facility] [address] [id number] [place] [address]- 1210 Sep, [facility] [place] [facility] [address] [id number] [place] [address]- 7305 Aug, [facility] [place] [facility] [address] [id number] [place] [address]- 2211 Aug, [facility] [place] [facility] [address] [id number] [place] [address]- 0986 Aug, [facility] [place] [facility] [address] [id number] [place] [address]- 7941 Aug, [facility] [place] [facility] [address] [id number] [place] [address]- 2036 Aug, [facility] [place] [facility] [address] [id number] [place] [address]- 7297 Aug, [facility] [place] [facility] [address] [id number] [place] [address]- 2925 Aug, [facility] [place] [facility] [address] [id number] [place] [address]- 5475 Aug, [facility] [place] [facility] [address] [id number] [place] [address]- 9676 Jul, [facility] [place] [facility] [address] [id number] [place] [address]- 1746 Jul, [facility] [place] [facility] [address] [id number] [place] [address]- 2630 Jul, [facility] [place] [facility] [address] [id number] [place] [address]- 9033 Jul, [facility] [place] [facility] [address] [id number] [place] [address]- 7051 Jul, [facility] [place] [facility] [address] [id number] [place] [address]- 8452 Jul, [facility] [place] [facility] [address] [id number] [place] [address]- 1350 Jun, [facility] [place] [facility] [address] [id number] [place] [address]- 7107 Jun, [facility] [place] [facility] [address] [id number] [place] [address]- 6836 Jun, [facility] [place] [facility] [address] [id number] [place] [address]- 9206 Jun, [facility] [place] [facility] [address] [id number] [place] [address]- 0087 Jun, [facility] [place] [facility] [address] [id number], [place] [address]- 8717 May, [facility] [place] [facility] [address] [id number], [place] [address]- 7513 May, [facility] [place] [facility] [address] [id number], [place] [address]- 8400 May, [facility] [place] [facility] [address] [id number] [place] [address]- 4873 May, [facility] [place] [facility] [address] [id number], [place] [address]- 9697 May, [facility] [place] [facility] [address] [id number], [place] [address]- 7799 Apr, [facility] [place] [facility] [address] [id number], [place] [address]- 3140 Apr, [facility] [address] [id number] [place] [address]- 1932 Mar, [facility] [place] [facility] [address] [id number] [place] [address]- 7802 Mar, [facility] [id number] [place] [address]- 9181 Mar, [facility] [place] [facility] [address] [facility] [id number] [place] [address]- 0412 Mar, [facility] [id number] [place] [address], [place] [address]- 8738 Feb, [facility] [address] [facility] [id number] [place] [address]- 3225 Jan, [facility] [address] [place] [address]- 0279 Jan, [facility] [address] [facility] [id number] [place] [address]- 9254 Aug, [facility] [id number] [place] [address]- 0735 Jul, [facility] [id number] [place] [address]- 5100 Jun, [facility] [address] [place] [address]- 2954 May, [facility] [place] [facility] [address] [facility] [id number] [place] [address]- 3114 May, [facility] [place] [facility] [id number]- 3015 May, [facility] [place] [facility] [address] [facility] [id number] [place] 8858 May, [facility] [id number], [place] [address]- 2683 Apr, [facility] [place] [facility] [address] [id number] [place] [address]- 3264 Apr, [facility] [place] [facility] [address] [id number] [place] [address]- 6169 Mar, [facility] [place] [facility] [address] [id number] [place] [address]- 8246 Mar, [facility] [place] [facility] [address] [id number] [place] [address]- 6266 Mar, [facility] [place] [facility] [address] [id number] [place] [address]- 9942 Mar, [facility] [place] [facility] [address] [id number] [place] [address]- 4545 Mar, [facility] [place] [facility] [address] [id number] [place] [address]- 8960 Mar, [facility] [place] [facility] [address] [id number] [place] [address]- 5035 Dec, [facility] [place] [facility] [address] [id number] [place] [address]- 7613 Dec, [facility] [place] [facility] [address] [id number] [place] [address]- 5455 Nov, [facility] [place] [facility] [address] [id number] [place] [address]- 4318 Nov, [facility] [place] [facility] [address] [id number] [place] [address]- 4388 October, [facility] [place] [facility] [address] [id number] [place] [address]- 1894 October, [facility] [place] [facility] [address] [id number] [place] [address]- 1716 Sep, [facility] [place] [facility] [address] [id number] [place] [address] 2546 Aug, [facility] [place] [facility] [address] [id number] [place] [address]- 1283 Aug, [facility] [address] [facility] [id number] [place] [address]- 1854 Aug, IMMUNIZATIONS No Known Immunizations SOCIAL HISTORY [...] History COPD - See's Dr Burnette in [facility] Medical History Chronic Heart Failure Surgical History 2 [facility] Surgical History defibrillator - 2012 Hospitalization History pneumonia for a week 2017 Hospitalization History Hospitalized at [facility], Chest pain. Dismissed 07/11/17 07/10/2017 Hospitalization History [facility] pneumonia, hypoxia[facility] 07/30/17 Hospitalization History [facility] ([place]- [facility] PNA, Respiratory Failure. Transfered to [place] 10/25/2017 Hospitalization History CHF/COPD 11/2017
--- OUTSIDE RECORDS SUMMARY | 2018-06-13 21:38 | XMS REPORT ---
Author Author LEE SILVA Organization [facility] Address [address] [place] [address] Care Team Providers Care [facility] Lead Name Role Phone LEE SILVA Unavailable PROBLEMS Type Condition ICD9-CM Code SWX94-VX Code Onset Dates Condition Status SNOMED Code Problem Cardiomyopathy I42.9 Active 43973826 Problem Acute on chronic systolic CHF (congestive heart failure) I50.23 Active 775757574 Problem Chronic obstructive pulmonary disease, unspecified J44.9 Active 34814709 Problem Gastroesophageal reflux disease without esophagitis K21.9 Active 652757032 Problem Chronic kidney disease, stage IV (severe) N18.4 Active 306100227 Problem Acquired hypothyroidism E03.9 Active 915592786 Problem Supplemental oxygen dependent Z99.81 Active 090074991834 Problem COPD with acute lower respiratory infection J44.0 Active 454211817 Problem Slow transit constipation K59.01 Active 41751438 Problem Essential hypertension I10 Active 50104875 Problem Chronic systolic heart failure I50.22 Active 357253522 Problem Anxiety F41.9 Active 85897325 Problem Paroxysmal atrial fibrillation I48.0 Active 587968941 Problem Mild depression F32.0 Active 978193347 Problem Chronic obstructive pulmonary disease with (acute) exacerbation J44.1 Active 317430428 Problem Anemia associated with chronic renal failure D63.1 Active 410525072 Problem Psychophysiological insomnia F51.04 Active 379101670 ALLERGIES No Information ENCOUNTERS Encounter Location Date Diagnosis [facility] [address] [id number] [address] May, [facility] [address] [id number] [address] Apr, [facility] [address] [place] [id number] Apr, Mild depression F32.0 ; Essential hypertension I10 ; Chronic systolic heart failure I50.22 ; Chronic obstructive pulmonary disease with (acute) exacerbation J44.1 ; Paroxysmal atrial fibrillation I48.0 ; Chronic kidney disease, stage IV (severe) N18.4 ; Acquired hypothyroidism E03.9 ; Clotted dialysis access, sequela T82.49XS ; Psychophysiological insomnia F51.04 and Gastroesophageal reflux disease without esophagitis K21.9 [facility] [place] [id number] [place] [address]60- 4771 19 Apr, 2018 Psychophysiological insomnia F51.04 [place] [address] [address] 14 Apr, 2018 [place] [address] [address] Apr, [place] [address] [address] Mar, [facility] [address] [place] [id number] Mar, Acute respiratory failure with hypoxia J96.01 ; Acute pancreatitis, unspecified complication status, unspecified pancreatitis type K85.90 ; Chronic kidney disease, stage IV (severe) N18.4 ; Rash R21 and Gastroesophageal reflux disease without esophagitis K21.9 [place] [id number] [place] [address] 83870- 0885 Mar, Psychophysiological insomnia F51.04 [facility] [place] [id number] [place] [address] 99161- 0915 Mar, [facility] [address] [place] [id number] Feb, Vertigo R42 and Chronic kidney disease, stage IV (severe) N18.4 [place] [address] [address]- 4473 Feb, [facility] [address] [place] [id number] Feb, Cellulitis of breast N61.[address] [address] Feb, [place] [address] [address] Feb, [facility] [id number] [place] [address] 45779- 5239 12 Feb, 2018 Psychophysiological insomnia F51.04 [facility] [address] [place] [id number] Feb, 2018 Urinary tract infection without hematuria, site unspecified N39.0 ; Chronic kidney disease, stage IV (severe) N18.4 and Chronic systolic heart failure I50.22 [facility] [id number] [place] [address] 50468- 7409 10 Feb, 2018 [facility] [address] [place] [id number] Feb, Chronic kidney disease, stage IV (severe) N18.4 ; Chronic systolic heart failure I50.22 ; COPD with acute lower respiratory infection J44.0 ; Vertigo R42 ; Slow transit constipation K59.01 ; Hemorrhoids, unspecified hemorrhoid type K64.9 ; Acquired hypothyroidism E03.9 ; Candidiasis of breast B37.89 and Difficulty in urination R39.198 [place] [id number] [place] [address] 09373- 9174 Jan, Acute on chronic systolic CHF (congestive heart failure) I50.23 ; Acute kidney failure, unspecified N17.9 ; Chronic kidney disease, stage III (moderate) N18.3 and Supplemental oxygen dependent Z99.81 [place] [place] [id number] [place] [address] 69960- 0644 Jan, Acute on chronic combined systolic and diastolic CHF ( congestive heart failure) I50.43 [facility] [place] [id number] [place] [address] 21762- 2154 Jan, [facility] [id number] [place] [address]607 [address]8509 Jan, Irritant contact dermatitis due to cosmetics L24.3 ; Effusion of right wrist M25.431 and Pain in right wrist M25.531 [place] [id number] [place] [address] 10362- 6980 Dec, Chronic systolic heart failure I50.22 ; Chronic obstructive pulmonary disease with (acute) exacerbation J44.1 ; CKD (chronic kidney disease ) stage 4, GFR 15-29 ml/min N18.4 ; Cardiomyopathy I42.9 ; Dependence on supplemental oxygen Z99.81 and Psychophysiological insomnia F51.04 [place] [id number] [place] [address] 67117- 3418 Dec, Anxiety F41.9 [facility] [id number] [place] [address] 51066- 7414 Dec, [facility] [id number] [place] [address] 79896- 1359 Dec, [facility] [place] [id number] [place] [address] 16334- 4004 Dec, [facility] [address] [place] [id number] Dec, Encounter for examination for admission to fdc Z02.2 ; Chronic obstructive pulmonary disease, unspecified J44.9 ; Paroxysmal atrial fibrillation I48.0 ; CKD (chronic kidney disease) stage 4, GFR 15-29 ml/min N18.4 and Cardiomyopathy I42.9 [place] [address] [place] [address] 48467- 4227 Dec, [facility] [place] [id number] [place] [address] 98123- 0460 Nov, Acute on chronic combined systolic and diastolic CHF ( congestive heart failure) I50.43 [place] [id number] [place] [address] 11003- 6153 Nov, [place] [place] [id number] [place] [address] 94718- 3461 Nov, [place] [address] [place] [address] 73194- 6288 Nov, Chronic systolic heart failure I50.22 ; Paroxysmal atrial fibrillation I48.0 ; Chronic obstructive pulmonary disease with (acute) exacerbation J44.1 ; Chronic kidney disease, stage 4 (severe) N18.4 ; Pain in right hip M25.551 and Pain in left hip M25.552 [place] [id number] [place] [address] 35884- 3390 Nov, Chronic kidney disease, stage 4 (severe) N18.4 [place] [id number] [place] [address] 28976- 4056 Nov, [facility] [place] [id number] [place] [address] 34049- 7032 Nov, [place] [address] [address]329- 4987 October, Chronic obstructive pulmonary disease with (acute) exacerbation J44.1 ; Chronic systolic heart failure I50.22 ; CKD (chronic kidney disease) stage 4, GFR 15-29 ml/min N18.4 and Dependence on supplemental oxygen Z99.81 [place] [id number] [place] [address] 02429- 3969 October, [address] 73737- 5543 October, [place] [id number] [place] [address] 31453- 1582 Sep, Chronic kidney disease, stage 4 (severe) N18.4 and Chronic kidney disease, stage IV (severe) N18.4 [place] [id number] [place] [address] 07859- 0187 Sep, Chronic kidney disease, stage 4 (severe) N18.4 [place] [id number] [place] [address] 42618- 2841 Sep, Anxiety F41.9 ; Paroxysmal atrial fibrillation I48.0 ; Chronic kidney disease, stage 4 (severe) N18.4 ; Chronic systolic heart failure I50.22 and Anemia associated with chronic renal failure D63.1 [address] [place] [address] Sep, [facility] [id number] [place] [address] 41577- 3441 Aug, [facility] [id number] [place] [address] 56125- 2967 Aug, [facility] [address] [place] [id number] Aug, Acute on chronic combined systolic and diastolic CHF (congestive heart failure) I50.43 ; Essential hypertension I10 ; CKD (chronic kidney disease) stage 4, GFR 15-29 ml/min N18.4 ; Paroxysmal atrial fibrillation I48.0 and Mild depression F32.0 [facility] [id number] [place] [address] 59368- 6016 Aug, [facility] [id number] [place] [address] 28289- 1799 Aug, [facility] [id number] [place] [address] 22694- 5403 Aug, Acute on chronic respiratory failure with hypoxia J96.21 ; Acute kidney failure, unspecified N17.9 ; Chronic kidney disease, stage 4 ( severe) N18.4 ; Acute on chronic combined systolic and diastolic CHF ( congestive heart failure) I50.43 ; Paroxysmal atrial fibrillation I48.0 and Cardiomyopathy, unspecified type I42.9 [place] [address] [address] 6[address] Aug, [facility] [id number] [place] [address] 65070- 1444 Jul, [facility] [address] [place] [address] 06875- 2191 Jul, [facility] [address] [place] [address] 80417- 7585 Jul, [facility] [address] [address] 8218 Jul, [facility] [address] [address]- 7073 06 Jul, 2017 Community acquired pneumonia of right lower lobe of lung J18.1 ; CKD (chronic kidney disease) stage 4, GFR 15-29 ml/min N18.4 and Shortness of breath R06.02 [facility] [id number] [place] [address] [id number] 05 Jul, 2017 [facility] [id number] [place] [address] 85751- 5126 Jun, Anxiety F41.9 [place] [id number] [place] [address] 82022- 6866 Apr, Anxiety F41.9 [place] [id number] [place] [address] 20494- 3916 Apr, Cough R05 and Pneumonia of right lower lobe due to infectious organism J18.1 [place] [place] [id number] [place] [address] 84658- 0792 Apr, [facility] [id number] [place] [address] 52742- 7191 Apr, Chronic kidney disease, stage IV (severe) N18.4 and COPD exacerbation J44.1 [place] [id number] [place] [address] 79375- 5316 Feb, Chronic systolic heart failure I50.22 ; Essential hypertension I10 ; Anemia associated with chronic renal failure D63.1 and Chronic kidney disease, stage 4 (severe) N18.4 [facility] [address] [place] [address] 80769- 5313 Feb, Anxiety F41.9 [facility] [id number] [place] [address] 40269- 9438 Feb, [facility] [id number] [place] [address] 81110- 5230 Feb, [facility] [id number] [place] [address] 40325- 6016 Jan, Other fatigue R53.83 ; Otalgia of both ears H92.03 and Urinary urgency R39.15 [facility] [address] [address]- 4790 Jan, Acute non-recurrent maxillary sinusitis J01.00 ; Chronic systolic heart failure I50.22 ; Stage 3 chronic kidney disease N18.3 and Mild depression F32.0 [facility] [address] [address]- 0201 Sep, [facility] [address] [address]- 7125 Sep, [facility] [id number] [place] [address] 94120- 8084 Feb, [facility] [id number] [address]- 3944 Feb, [facility] [address] [address]- 9536 Dec, [facility] [address] [address]- 6468 Dec, [facility] [address] [address]- 3399 Nov, [facility] [address] [address]- 3976 Nov, [facility] [address] [address]- 0567 Nov, [facility] [address] [address]- 3576 Nov, [facility] [address] [address]- 2000 October, [facility] [address] [address]- 1012 October, [facility] [id number] [place] [address]- 4761 08 Sep, 2013 [facility] [address] [id number] [place] [address]- 9279 Sep, [facility] [place] [facility] [address] [id number] [place] [address]- 7576 Sep, [facility] [place] [facility] [address] [id number] [place] [address]- 1026 Sep, [facility] [place] [facility] [address] [id number] [place] [address]- 7284 Sep, [facility] [place] [facility] [address] [id number] [place] [address]- 2425 Aug, [facility] [place] [facility] [address] [id number] [place] [address]- 9398 Aug, [facility] [place] [facility] [address] [id number] [place] [address]- 3484 Aug, [facility] [place] [facility] [address] [id number] [place] [address]- 2480 Aug, [facility] [place] [facility] [address] [id number] [place] [address]- 5064 Aug, [facility] [place] [facility] [address] [id number] [place] [address]- 7883 Aug, [facility] [place] [facility] [address] [id number] [place] [address]- 8073 Aug, [facility] [place] [facility] [address] [id number] [place] [address]- 4890 Aug, [facility] [place] [facility] [address] [id number] [place] [address]- 0404 Jul, [facility] [place] [facility] [address] [id number] [place] [address]- 2546 Jul, [facility] [place] [facility] [address] [id number] [place] 0599 Jul, [facility] [address] [id number] [place] [address]- 1419 Jul, [facility] [place] [facility] [address] [id number] [place] [address]- 3162 Jul, [facility] [place] [facility] [address] [id number] [place] 8752 Jul, [facility] [place] [facility] [address] [id number] [place] [address]- 2421 Jun, [facility] [place] [facility] [address] [id number] [place] [address]- 8274 Jun, [facility] [place] [facility] [address] [id number] [place] [address]- 5261 Jun, [facility] [place] [facility] [address] [id number] [place] [address]- 2364 Jun, [facility] [place] [facility] [address] [id number] [place] [address]- 7051 Jun, [facility] [place] [facility] [address] [id number] [place] [address]- 7893 May, [facility] [place] [facility] [address] [id number] [place] [address]- 2944 May, [facility] [place] [facility] [address] [id number] [address]- 7016 May, [facility] [place] [facility] [address] [id number] [place] [address]- 7472 May, [facility] [place] [facility] [address] [id number] [place] [address]- 9771 May, [facility] [place] [facility] [address] [id number] [place] [address]- 9638 Apr, [facility] [place] [facility] [address] [id number] [place] [address]- 4289 Apr, [facility] [place] [facility] [address] [id number] [place] [address]- 8783 Mar, [facility] [address] [id number] [place] [address]- 5869 Mar, [facility] [place] [facility] [address] [id number] [place] [address]- 8978 Mar, [facility] [place] [facility] [address] [id number] [place] [address]- 9207 Mar, [facility] [place] [facility] [address] [id number] [place] [address]- 2033 Feb, [facility] [address] [id number] [place] [address]- 4547 Jan, [facility] [place] [facility] [address] [id number] [place] [address]- 8930 Jan, [facility] [address] [id number] [place] [address]- 5508 Aug, [facility] [address] [id number] [place] [address]- 6940 Jul, [facility] [place] [facility] [address] [id number] [place] 8410 Jun, [facility] [address] [id number] [place] [address]- 4193 May, [facility] [place] [facility] [address] [id number] [place] [address]- 8769 May, [facility] [place] [facility] [address] [id number] [place] [address]- 6655 May, [facility] [place] [facility] [address] [id number] [place] [address]- 7399 May, [facility] [place] [facility] [address] [id number] [place] [address]- 9182 Apr, [facility] [place] [facility] [address] [id number] [place] [address]- 5356 Apr, [facility] [place] [facility] [address] [id number] [place] [address]- 5295 Mar, [facility] [place] [facility] [address] [id number] [place] [address]- 8799 Mar, [facility] [place] [facility] [address] [id number] [place] [address]- 8132 Mar, [facility] [place] [facility] [address] [id number] [place] [address] 2542 Mar, [facility] [place] [facility] [address] [id number] [place] [address]- 0836 Mar, [facility] [place] [facility] [address] [id number] [place] [address]- 2820 Mar, [facility] [place] [facility] [address] [id number] [place] [address]- 0186 Dec, [facility] [place] [facility] [address] [id number] [place] [address]- 0978 Dec, [facility] [place] [facility] [address] [id number] [place] [address]- 6412 Nov, [facility] [place] [facility] [address] [id number] [place] [address]- 8256 Nov, [facility] [place] [facility] [address] [id number] [place] [address]- 2546 October, [facility] [place] [facility] [address] [id number] [place] [address]- 2546 October, [facility] [place] [facility] [address] [id number] [place] [address]- 4953 Sep, [facility] [place] [facility] [address] [id number] [place] [address]- 2546 Aug, [facility] [place] [facility] [address] [id number] [place] [address]- 2546 Aug, [facility] [place] [facility] [address] [id number] [place] [address]- 1556 Aug, IMMUNIZATIONS No Known Immunizations SOCIAL HISTORY Never Assessed REASON FOR VISIT Orders PLAN OF CARE VITAL SIGNS MEDICATIONS Unknown Medications RESULTS No Results PROCEDURES No Known procedures INSTRUCTIONS MEDICATIONS ADMINISTERED No Known Medications MEDICAL (GENERAL) HISTORY Type Description Date Medical History hyperlipidemia Medical History htn Medical History kidney failure stage 4 - dx in 2012 Medical History hypothyroidisim Medical History neuropathy Medical History COPD - See's Dr Burnette in [facility] Medical History Chronic Heart Failure Surgical History 2 cesareans Surgical History defibrillator - 2012 Hospitalization History pneumonia for a week 2016 Hospitalization History Hospitalized at [facility]- CHF, Chest pain. Dismissed 07/11/17 07/10/2017 Hospitalization History [facility] pneumonia, hypoxia-[facility] [place] 07/30/17 Hospitalization History [facility]- RLL PNA, Respiratory Failure. Transfered to [facility] 10/25/2017 Hospitalization History CHF/COPD 11/2017
--- OUTSIDE RECORDS SUMMARY | 2018-06-13 21:38 | XMS REPORT ---
Author Author TEAGAN VERNON Organization [facility] Address [address] [place] [address] Care Team Providers Care Lean Facilitator Name Role Phone TEAGAN VERNON Unavailable PROBLEMS Type Condition ICD9-CM Code ALI97-NR Code Onset Dates Condition Status SNOMED Code Problem Cardiomyopathy I42.9 Active 41658476 Problem Acute on chronic systolic CHF (congestive heart failure) I50.23 Active 904638472 Problem Chronic obstructive pulmonary disease, unspecified J44.9 Active 81048286 Problem Gastroesophageal reflux disease without esophagitis K21.9 Active 875642747 Problem Chronic kidney disease, stage IV (severe) N18.4 Active 489545770 Problem Acquired hypothyroidism E03.9 Active 068372014 Problem Supplemental oxygen dependent Z99.81 Active 617755378755 Problem COPD with acute lower respiratory infection J44.0 Active 011551324 Problem Slow transit constipation K59.01 Active 64329165 Problem Essential hypertension I10 Active 14561627 Problem Chronic systolic heart failure I50.22 Active 206318196 Problem Anxiety F41.9 Active 00132958 Problem Paroxysmal atrial fibrillation I48.0 Active 386452575 Problem Mild depression F32.0 Active 789194799 Problem Chronic obstructive pulmonary disease with (acute) exacerbation J44.1 Active 558392642 Problem Anemia associated with chronic renal failure D63.1 Active 055453066 Problem Psychophysiological insomnia F51.04 Active 133799173 ALLERGIES No Information ENCOUNTERS Encounter Location Date Diagnosis [facility] [place] [address] [facility] [id number], [place] [address] May, [facility] [place] [address] [facility] [id number], [place] [address] Apr, [facility] [address] [place] [id number] Apr, Mild depression F32.0 ; Essential hypertension I10 ; Chronic systolic heart failure I50.22 ; Chronic obstructive pulmonary disease with (acute) exacerbation J44.1 ; Paroxysmal atrial fibrillation I48.0 ; Chronic kidney disease, stage IV (severe) N18.4 ; Acquired hypothyroidism E03.9 ; Clotted dialysis access, sequela T82.49XS ; Psychophysiological insomnia F51.04 and Gastroesophageal reflux disease without esophagitis K21.9 [place] [id number] [place] [address] 05050- 4400 19 Apr, 2018 Psychophysiological insomnia F51.04 [place] [id number] [place] [address] 45410- 1186 14 Apr, 2018 [place] [address] [address]- [address] Apr, [place] [id number] [place] [address] 76159- 8834 Mar, [facility] [address] [place] [id number] Mar, Acute respiratory failure with hypoxia J96.01 ; Acute pancreatitis, unspecified complication status, unspecified pancreatitis type K85.90 ; Chronic kidney disease, stage IV (severe) N18.4 ; Rash R21 and Gastroesophageal reflux disease without esophagitis K21.9 [place] [id number] [place] [address] 98300- 1215 Mar, Psychophysiological insomnia F51.04 [place] [id number] [place] [address] 99877- 8121 Mar, [facility] [address] [place] [id number] Feb, Vertigo R42 and Chronic kidney disease, stage IV (severe) N18.4 [place] [id number] [place] [address] 69468- 9984 Feb, [facility] [address] [place] [id number] Feb, Cellulitis of breast N61.0 [place] [id number] [place] [address] 88416- 9056 Feb, [place] [address] [address] Feb, [place] [id number] [place] [address] 43190- 1038 12 Feb, 2018 Psychophysiological insomnia F51.04 [facility] [address] [place] [id number] 11 Feb, 2018 Urinary tract infection without hematuria, site unspecified N39.0 ; Chronic kidney disease, stage IV (severe) N18.4 and Chronic systolic heart failure I50.22 [place] [id number] [place] [address] 55740- 4243 10 Feb, 2018 [facility] [address] [place] [id number] Feb, Chronic kidney disease, stage IV (severe) N18.4 ; Chronic systolic heart failure I50.22 ; COPD with acute lower respiratory infection J44.0 ; Vertigo R42 ; Slow transit constipation K59.01 ; Hemorrhoids, unspecified hemorrhoid type K64.9 ; Acquired hypothyroidism E03.9 ; Candidiasis of breast B37.89 and Difficulty in urination R39.198 [place] [address] [id number] [address] Jan, Acute on chronic systolic CHF (congestive heart failure) I50.23 ; Acute kidney failure, unspecified N17.9 ; Chronic kidney disease, stage III (moderate) N18.3 and Supplemental oxygen dependent Z99.81 [place] [id number] [place] [address] 01807- 2645 Jan, Acute on chronic combined systolic and diastolic CHF ( congestive heart failure) I50.43 [facility] [place] [address] [id number] [address] Jan, [facility] [id number] [place] [address] 22820 -6507 Jan, Irritant contact dermatitis due to cosmetics L24.3 ; Effusion of right wrist M25.431 and Pain in right wrist M25.531 [place] [id number] [place] [address] 67151- 6686 Dec, Chronic systolic heart failure I50.22 ; Chronic obstructive pulmonary disease with (acute) exacerbation J44.1 ; CKD (chronic kidney disease ) stage 4, GFR 15-29 ml/min N18.4 ; Cardiomyopathy I42.9 ; Dependence on supplemental oxygen Z99.81 and Psychophysiological insomnia F51.04 [place] [id number] [place] [address] 44645- 7176 Dec, Anxiety F41.9 [facility] [id number] [place] [address] 51210- 2710 Dec, [place] [id number] [place] [address] 45903- 3096 Dec, [place] [id number] [place] [address] 33390- 6338 Dec, [facility] [address] [facility] [address] [place] [id number] Dec, Encounter for examination for admission to custodial Z02.2 ; Chronic obstructive pulmonary disease, unspecified J44.9 ; Paroxysmal atrial fibrillation I48.0 ; CKD (chronic kidney disease) stage 4, GFR 15-29 ml/min N18.4 and Cardiomyopathy I42.9 [place] [id number] [place] [address] 94122- 9909 Dec, [place] [id number] [place] [address] 98620- 4021 Nov, Acute on chronic combined systolic and diastolic CHF ( congestive heart failure) I50.43 [place] [id number] [place] [address] 75280- 3148 Nov, [place] [id number] [place] [address] 74287- 0558 Nov, [place] [id number] [place] [address] 04292- 0094 Nov, Chronic systolic heart failure I50.22 ; Paroxysmal atrial fibrillation I48.0 ; Chronic obstructive pulmonary disease with (acute) exacerbation J44.1 ; Chronic kidney disease, stage 4 (severe) N18.4 ; Pain in right hip M25.551 and Pain in left hip M25.552 [place] [id number] [place] [address] 70611- 7866 Nov, Chronic kidney disease, stage 4 (severe) N18.4 [place] [address] 62446- 7368 Nov, [place] [id number] [place] [address] 72396- 4435 Nov, [place] [address] 12407- 8470 October, Chronic obstructive pulmonary disease with (acute) exacerbation J44.1 ; Chronic systolic heart failure I50.22 ; CKD (chronic kidney disease) stage 4, GFR 15-29 ml/min N18.4 and Dependence on supplemental oxygen Z99.81 [place] [id number] [place] [address] 35400- 0448 October, [place] [address] 86772- 9240 October, [place] [id number] [place] [address] 91756- 8811 Sep, Chronic kidney disease, stage 4 (severe) N18.4 and Chronic kidney disease, stage IV (severe) N18.4 [place] [id number] [place] [address] 54994- 1746 Sep, Chronic kidney disease, stage 4 (severe) N18.4 [place] [id number] [place] [address] 17694- 8507 Sep, Anxiety F41.9 ; Paroxysmal atrial fibrillation I48.0 ; Chronic kidney disease, stage 4 (severe) N18.4 ; Chronic systolic heart failure I50.22 and Anemia associated with chronic renal failure D63.1 [place] [id number] [place] [address] 27267- 5805 Sep, [facility] [place] [address], [place] [address] Aug, [facility] [place] [id number] [place] [address] 46419- 5266 Aug, [facility] [address] [place] [id number] Aug, Acute on chronic combined systolic and diastolic CHF (congestive heart failure) I50.43 ; Essential hypertension I10 ; CKD (chronic kidney disease) stage 4, GFR 15-29 ml/min N18.4 ; Paroxysmal atrial fibrillation I48.0 and Mild depression F32.0 [facility] [place] [id number] [place] [address] 19387- 1716 Aug, [facility] [address], [place] [address] 8707 Aug, [facility] [id number] [place] [address] 02743- 7531 Aug, Acute on chronic respiratory failure with hypoxia J96.21 ; Acute kidney failure, unspecified N17.9 ; Chronic kidney disease, stage 4 ( severe) N18.4 ; Acute on chronic combined systolic and diastolic CHF ( congestive heart failure) I50.43 ; Paroxysmal atrial fibrillation I48.0 and Cardiomyopathy, unspecified type I42.9 [facility] [place] [address], [place] [address] 6[address] Aug, [facility] [address], [place] [address] 9642 Jul, [facility] [place] [address], [place] [address]- 6013 Jul, [facility] [place] [address], [place] [address]- 1772 Jul, [facility] [place] [address], [place] [address]- 5198 Jul, [facility] [place] [id number] [place] [address] 09789- 4004 06 Jul, 2017 Community acquired pneumonia of right lower lobe of lung J18.1 ; CKD (chronic kidney disease) stage 4, GFR 15-29 ml/min N18.4 and Shortness of breath R06.02 [facility] [id number] [place] [address] [id number] Jul, [place] [id number] [place] [address] 43006- 8948 Jun, Anxiety F41.9 [place] [address] 37559- 9324 Apr, Anxiety F41.9 [place] [id number] [place] [address] 97698- 1093 Apr, Cough R05 and Pneumonia of right lower lobe due to infectious organism J18.1 [place] [id number] [place] [address] 18590- 1497 Apr, [place] [id number] [place] [address] 68039- 7358 Apr, Chronic kidney disease, stage IV (severe) N18.4 and COPD exacerbation J44.1 [place] [id number] [place] [address] 93312- 9695 Feb, Chronic systolic heart failure I50.22 ; Essential hypertension I10 ; Anemia associated with chronic renal failure D63.1 and Chronic kidney disease, stage 4 (severe) N18.4 [facility] [place] [id number] [place] [address] 81533- 8607 Feb, Anxiety F41.9 [facility] [place] [id number] [place] [address] 98960- 7023 Feb, [place] [id number] [place] [address] 34114- 1584 Feb, [facility] [place] [id number] [place] [address] 26147- 3701 Jan, Other fatigue R53.83 ; Otalgia of both ears H92.03 and Urinary urgency R39.15 [facility] [place] [id number] [place] [address] 78744- 7471 Jan, Acute non-recurrent maxillary sinusitis J01.00 ; Chronic systolic heart failure I50.22 ; Stage 3 chronic kidney disease N18.3 and Mild depression F32.0 [facility] [place] [id number] [place] [address] 77887- 8537 Sep, [facility] [place] [id number] [place] [address] 48896- 0111 Sep, [facility] [place] [id number] [place] [address] 98801- 2642 Feb, [facility] [place] [id number] [place] [address] 12181- 4180 Feb, [facility] [place] [id number] [place] [address] 45399- 2676 Dec, [facility] [place] [id number] [place] [address] 68387- 3352 Dec, [facility] [place] [id number] [place] [address] 04115- 2652 Nov, [facility] [place] [id number] [place] [address] 13512- 3410 Nov, [facility] [id number] [place] [address] 43985- 7771 Nov, [facility] [place] [id number] [place] [address] 48830- 8193 Nov, [facility] [place] [id number] [place] [address] 38594- 4830 October, [facility] [place] [id number] [place] [address] 94834- 5970 October, [facility] [place] [address] [place] [address]- 6909 08 Sep, 2013 [facility] [place] [facility] [address] [id number] [place] [address]- 7490 08 Sep, 2013 [facility] [place] [facility] [address] [id number] [place] [address]- 7583 Sep, [facility] [place] [facility] [address] [id number] [place] [address]- 6066 Sep, [facility] [place] [facility] [address] [id number] [place] [address]- 9190 Sep, [facility] [place] [facility] [address] [id number] [place] [address]- 8069 Aug, [facility] [place] [facility] [address] [id number] [place] [address]- 6836 Aug, [facility] [place] [facility] [address] [id number] [place] [address]- 9474 Aug, [facility] [place] [facility] [address] [id number] [place] [address]- 2578 Aug, [facility] [place] [facility] [address] [id number] [place] [address]- 8277 Aug, [facility] [place] [facility] [address] [facility] [id number] [place] [address]- 3942 Aug, [facility] [place] [facility] [address] [id number] [place] [address]- 3799 Aug, [facility] [place] [facility] [address] [id number] [place] [address]- 6491 Aug, [facility] [place] [facility] [address] [id number] [place] [address]- 0207 Jul, [facility] [place] [facility] [address] [id number] [place] [address]- 9576 Jul, [facility] [place] [facility] [address] [id number] [place] [address]- 2496 Jul, [facility] [place] [facility] [address] [id number] [place] [address]- 1938 Jul, [facility] [place] [facility] [address] [id number] [place] [address]- 8402 Jul, [facility] [place] [facility] [address] [id number] [place] [address]- 8954 Jul, [facility] [place] [facility] [address] [id number] [place] [address]- 9991 Jun, [facility] [place] [facility] [address] [id number] [place] [address]- 7280 Jun, [facility] [place] [facility] [address] [id number] [place] [address]- 8154 Jun, [facility] [place] [facility] [address] [id number] [place] [address]- 6892 Jun, [facility] [place] [facility] [address] [id number] [place] [address]- 7421 Jun, [facility] [place] [facility] [address] [id number] [place] [address]- 4564 May, [facility] [place] [facility] [address] [id number], [place] [address]- 1814 May, [facility] [place] [facility] [address] [id number], [place] [address]- 9508 May, [facility] [place] [facility] [address] [id number], [place] [address]- 4952 May, [facility] [place] [facility] [address] [id number] [place] [address]- 3806 May, [facility] [place] [facility] [address] [id number], [place] [address]- 4058 Apr, [facility] [place] [facility] [address] [id number], [place] [address]- 8023 Apr, [facility] [place] [facility] [address] [id number], [place] [address]- 4127 Mar, [facility] [address] [id number] [place] [address]- 9842 Mar, [facility] [place] [facility] [address] [id number] [place] [address]- 9977 Mar, [facility] [address] [facility] [id number] [place] [address]- 2955 Mar, [facility] [place] [facility] [address] [id number] [place] [address]- 2058 Feb, [facility] [address] [id number] [place] [address]- 1908 Jan, [facility] [place] [facility] [address] [facility] [id number] [place] [address]- 3400 Jan, [facility] [address] [address]- 6700 Aug, [facility] [address] [facility] [id number] [place] [address]- 3601 Jul, [facility] [id number] [address]- 6221 Jun, [facility] [id number] [address]- 9355 May, [facility] [address] [id number] [place] [address]- 7469 May, [facility] [place] [facility] [address] [facility] [id number] [place] [address]- 8508 May, [facility] [place] [facility] [address] [facility] [id number] [place] [address]- 2442 May, [facility] [place] [facility] [address] [facility] [id number] [place] [address]- 1577 Apr, [facility] [place] [facility] [id number] [address]- 1661 Apr, [facility] [place] [facility] [address] [id number] [place] [address]- 9256 Mar, [facility] [place] [facility] [address] [id number] [place] [address]- 8696 Mar, [facility] [place] [facility] [address] [id number] [place] [address]- 2787 Mar, [facility] [place] [facility] [address] [id number] [place] [address]- 9262 Mar, [facility] [place] [facility] [address] [id number] [place] [address]- 2974 Mar, [facility] [place] [facility] [address] [id number] [place] [address]- 4672 Mar, [facility] [place] [facility] [address] [id number] [place] [address]- 5525 Dec, [facility] [place] [facility] [address] [id number] [place] [address]- 7105 Dec, [facility] [place] [facility] [address] [id number] [place] [address]- 3492 Nov, [facility] [place] [facility] [address] [id number] [place] [address]- 8724 Nov, [facility] [place] [facility] [address] [id number] [place] [address]- 5636 October, [facility] [place] [facility] [address] [id number] [place] [address]- 0526 October, [facility] [place] [facility] [address] [id number] [place] [address]- 2887 Sep, [facility] [place] [facility] [address] [id number] [place] [address]- 4646 Aug, [facility] [place] [facility] [address] [id number] [place] [address]- 2546 Aug, [facility] [place] [facility] [address] [id number] [place] [id number] Aug, IMMUNIZATIONS No Known Immunizations SOCIAL HISTORY Never Assessed REASON FOR VISIT Request samples PLAN OF CARE VITAL SIGNS MEDICATIONS Medication Instructions Dosage Frequency Start Date End Date Duration Status BD SafetyGlide Syringe/Needle 27G X 5/8" 1 ML subcutaneously 2 times a day as directed to use with heparin 12h May, Active RESULTS No Results PROCEDURES No Known procedures INSTRUCTIONS MEDICATIONS ADMINISTERED No Known Medications MEDICAL (GENERAL) HISTORY Type Description Date Medical History hyperlipidemia Medical History htn Medical History kidney failure stage 4 - dx in 2012 Medical History hypothyroidisim Medical History neuropathy Medical History COPD - See's Dr Burnette in [facility] Medical History Chronic Heart Failure Surgical History 2 [facility] Surgical History defibrillator - 2012 Hospitalization History pneumonia for a week 2016 Hospitalization History Hospitalized at [facility]- CHF, Chest pain. Dismissed 07/11/17 07/10/2017 Hospitalization History [facility] pneumonia, hypoxia-[facility] 07/30/17 Hospitalization History [facility]- [facility] PNA, Respiratory Failure. Transfered to [facility] 10/25/2017 Hospitalization History CHF/COPD 11/2017
--- OUTSIDE RECORDS SUMMARY | 2018-06-13 21:39 | XMS REPORT ---
Author Author LEE SILVA Organization [facility] Address [address] [place] [address] Care Team Providers Care Television Cabinet Finisher Name Role Phone LEE SILVA Unavailable PROBLEMS Type Condition ICD9-CM Code GDO16-AB Code Onset Dates Condition Status SNOMED Code Problem Cardiomyopathy I42.9 Active 67650411 Problem Acute on chronic systolic CHF (congestive heart failure) I50.23 Active 560936415 Problem Chronic obstructive pulmonary disease, unspecified J44.9 Active 84277576 Problem Gastroesophageal reflux disease without esophagitis K21.9 Active 308564278 Problem Chronic kidney disease, stage IV (severe) N18.4 Active 573122339 Problem Acquired hypothyroidism E03.9 Active 823550938 Problem Supplemental oxygen dependent Z99.81 Active 595335588602 Problem COPD with acute lower respiratory infection J44.0 Active 760406289 Problem Slow transit constipation K59.01 Active 34409768 Problem Essential hypertension I10 Active 42052087 Problem Chronic systolic heart failure I50.22 Active 605811896 Problem Anxiety F41.9 Active 10354723 Problem Paroxysmal atrial fibrillation I48.0 Active 423870175 Problem Mild depression F32.0 Active 553961971 Problem Chronic obstructive pulmonary disease with (acute) exacerbation J44.1 Active 668191333 Problem Anemia associated with chronic renal failure D63.1 Active 376523901 Problem Psychophysiological insomnia F51.04 Active [id number] ALLERGIES No Information ENCOUNTERS Encounter Location Date Diagnosis [facility] [address] [facility] [id number] [place] [address] Mar, [facility], [place], [facility] [address] [place] [id number] Mar, Acute respiratory failure with hypoxia J96.01 ; Acute pancreatitis, unspecified complication status, unspecified pancreatitis type K85.90 ; Chronic kidney disease, stage IV (severe) N18.4 ; Rash R21 and Gastroesophageal reflux disease without esophagitis K21.9 [place] [id number] [place] [address] 37716- 6510 16 Mar, 2018 Psychophysiological insomnia F51.04 [place] [id number] [place] [address] 38663- 0615 03 Mar, 2018 [facility] [address] [place] [id number] Feb, Vertigo R42 and Chronic kidney disease, stage IV (severe) N18.4 [place] [id number] [place] [address] 82707- 1430 24 Feb, 2018 [facility] [address] [place] [id number] 20 Feb, 2018 Cellulitis of breast N61.0 [place] [id number] [place] [address] 13649- 9901 18 Feb, 2018 [place] [id number] [place] [address] 97959- 7442 16 Feb, 2018 [place] [id number] [place] [address] 79044- 3417 12 Feb, 2018 Psychophysiological insomnia F51.04 [facility] [place], [facility] [address] [place] [id number] 11 Feb, 2018 Urinary tract infection without hematuria, site unspecified N39.0 ; Chronic kidney disease, stage IV (severe) N18.4 and Chronic systolic heart failure I50.22 [place] [id number] [place] [address] 42220- 4647 10 Feb, 2018 [facility] [address] [place] [id number] 04 Feb, 2018 Chronic kidney disease, stage IV (severe) N18.4 ; Chronic systolic heart failure I50.22 ; COPD with acute lower respiratory infection J44.0 ; Vertigo R42 ; Slow transit constipation K59.01 ; Hemorrhoids, unspecified hemorrhoid type K64.9 ; Acquired hypothyroidism E03.9 ; Candidiasis of breast B37.89 and Difficulty in urination R39.198 [place] [id number] [place] [address] 61833- 9981 Jan, Acute on chronic systolic CHF (congestive heart failure) I50.23 ; Acute kidney failure, unspecified N17.9 ; Chronic kidney disease, stage III (moderate) N18.3 and Supplemental oxygen dependent Z99.81 [place] [id number] [place] [address] 80144- 6040 Jan, Acute on chronic combined systolic and diastolic CHF ( congestive heart failure) I50.43 [place] [id number] [place] [address] 33703- 2136 Jan, [facility] [id number] [place] [address] 68362 -9097 Jan, Irritant contact dermatitis due to cosmetics L24.3 ; Effusion of right wrist M25.431 and Pain in right wrist M25.531 [place] [id number] [place] [address] 98192- 6998 Dec, Chronic systolic heart failure I50.22 ; Chronic obstructive pulmonary disease with (acute) exacerbation J44.1 ; CKD (chronic kidney disease ) stage 4, GFR 15-29 ml/min N18.4 ; Cardiomyopathy I42.9 ; Dependence on supplemental oxygen Z99.81 and Psychophysiological insomnia F51.04 [place] [address] [place] [address] 25358- 3222 Dec, Anxiety F41.9 [place] [id number] [place] [address] 21621- 9454 Dec, [place] [id number] [place] [address] 55711- 5694 Dec, [address] [address]59- 9645 Dec, [facility] [address] [place] [id number] Dec, Encounter for examination for admission to detention Z02.2 ; Chronic obstructive pulmonary disease, unspecified J44.9 ; Paroxysmal atrial fibrillation I48.0 ; CKD (chronic kidney disease) stage 4, GFR 15-29 ml/min N18.4 and Cardiomyopathy I42.9 [facility] [address] [address] Dec, [facility] [address] [place] [address] 78757- 9460 Nov, Acute on chronic combined systolic and diastolic CHF ( congestive heart failure) I50.43 [facility] [id number] [place] [address] 40258- 6918 27 Nov, 2017 [facility] [address] [place] [address] 15148- 8846 Nov, [facility] [id number] [place] [address] 64639- 7452 Nov, Chronic systolic heart failure I50.22 ; Paroxysmal atrial fibrillation I48.0 ; Chronic obstructive pulmonary disease with (acute) exacerbation J44.1 ; Chronic kidney disease, stage 4 (severe) N18.4 ; Pain in right hip M25.551 and Pain in left hip M25.552 [facility] [address] [address] Nov, Chronic kidney disease, stage 4 (severe) N18.4 [facility] [address] [address] Nov, [facility] [address] [address] Nov, [facility] [address] [address] October, Chronic obstructive pulmonary disease with (acute) exacerbation J44.1 ; Chronic systolic heart failure I50.22 ; CKD (chronic kidney disease) stage 4, GFR 15-29 ml/min N18.4 and Dependence on supplemental oxygen Z99.81 [facility] [address] [address] October, [facility] [id number] [address] October, [facility] [id number] [place] [address] 27195- 4572 Sep, Chronic kidney disease, stage 4 (severe) N18.4 and Chronic kidney disease, stage IV (severe) N18.4 [place] [address] [place] [address] 34480- 8877 Sep, Chronic kidney disease, stage 4 (severe) N18.4 [place] [id number] [place] [address] 95025- 6522 Sep, Anxiety F41.9 ; Paroxysmal atrial fibrillation I48.0 ; Chronic kidney disease, stage 4 (severe) N18.4 ; Chronic systolic heart failure I50.22 and Anemia associated with chronic renal failure D63.1 [place] [id number] [place] [address] 00608- 0399 Sep, [place] [id number] [place] [address] 68199- 4118 Aug, [place] [id number] [place] [address] 12775- 2014 Aug, [facility] [address] [place] [id number] Aug, Acute on chronic combined systolic and diastolic CHF (congestive heart failure) I50.43 ; Essential hypertension I10 ; CKD (chronic kidney disease) stage 4, GFR 15-29 ml/min N18.4 ; Paroxysmal atrial fibrillation I48.0 and Mild depression F32.0 [place] [address] [place] [address] 82417- 6155 Aug, [place] [id number] [place] [address] 16865- 1244 Aug, [facility] [address] [place] [address] 94579- 2371 Aug, Acute on chronic respiratory failure with hypoxia J96.21 ; Acute kidney failure, unspecified N17.9 ; Chronic kidney disease, stage 4 ( severe) N18.4 ; Acute on chronic combined systolic and diastolic CHF ( congestive heart failure) I50.43 ; Paroxysmal atrial fibrillation I48.0 and Cardiomyopathy, unspecified type I42.9 [facility] [address] [place] [address] 50970- 4554 Aug, [facility] [id number] [place] [address] 49892- 8153 14 Jul, 2017 [facility] [address] 45052- 1385 Jul, [facility] [address] 76872- 9665 Jul, [facility] [id number] [place] [address] 03279- 7711 Jul, [facility] [address] 05483- 2472 Jul, Community acquired pneumonia of right lower lobe of lung J18.1 ; CKD (chronic kidney disease) stage 4, GFR 15-29 ml/min N18.4 and Shortness of breath R06.02 [facility] [address] [id number] 05 Jul, 2017 [facility] [id number] [place] [address] 41638- 3170 Jun, Anxiety F41.9 [facility] [address] 71431- 7421 Apr, Anxiety F41.9 [facility] [id number] [place] [address] 97863- 2202 Apr, Cough R05 and Pneumonia of right lower lobe due to infectious organism J18.1 [facility] [id number] [place] [address] 31437- 2568 Apr, [facility] [address] 26636- 4377 Apr, Chronic kidney disease, stage IV (severe) N18.4 and COPD exacerbation J44.1 [facility] [address] 80494- 7195 Feb, Chronic systolic heart failure I50.22 ; Essential hypertension I10 ; Anemia associated with chronic renal failure D63.1 and Chronic kidney disease, stage 4 (severe) N18.4 [place] [address] 37165- 0336 Feb, Anxiety F41.9 [facility] [address] 08791- 3250 Feb, [place] [address] 90566- 4435 Feb, [place] [address] 04429- 3869 Jan, Other fatigue R53.83 ; Otalgia of both ears H92.03 and Urinary urgency R39.15 [place] [address] 19157- 8121 Jan, Acute non-recurrent maxillary sinusitis J01.00 ; Chronic systolic heart failure I50.22 ; Stage 3 chronic kidney disease N18.3 and Mild depression F32.0 [place] [id number] [place] [address] 77709- 4660 Sep, [facility] [id number] [place] [address] 09026- 2183 Sep, [facility] [id number] [place] [address] 24407- 4894 Feb, [facility] [address] 65502- 3173 Feb, [facility] [address] 47333- 1562 Dec, [facility] [address] 51546- 6090 Dec, [facility] [place] [facility] [address] [id number] [place] [address]- 2977 Nov, [facility] [place] [facility] [address] [id number] [place] [address] Nov, [facility] [place] [facility] [address] [id number] [place] [address]- 3116 Nov, [facility] [place] [facility] [address] [id number] [place] [address]- 2856 Nov, [facility] [place] [facility] [address] [id number] [place] [address]- 7980 October, [facility] [place] [facility] [address] [id number] [place] [address]- 1944 October, [facility] [place] [facility] [address] [id number] [place] [address]- 0736 Sep, [facility] [place] [facility] [address] [id number] [place] [address]- 1425 Sep, [facility] [place] [facility] [address] [id number] [place] [address]- 0794 Sep, [facility] [place] [facility] [address] [id number] [place] [address]- 1745 Sep, [facility] [place] [facility] [address] [id number] [place] [address]- 7203 Sep, [facility] [place] [facility] [address] [id number] [place] [address]- 6247 Aug, [facility] [place] [facility] [address] [id number] [place] [address]- 9337 Aug, [facility] [place] [facility] [address] [id number] [place] [address]- 6286 Aug, [facility] [place] [facility] [address] [id number] [place] [address]- 5141 Aug, [facility] [place] [facility] [address] [id number] [place] [address]- 4078 Aug, [facility] [place] [facility] [address] [id number] [place] [address]- 0143 Aug, [facility] [place] [facility] [address] [id number] [place] [address]- 9572 Aug, [facility] [place] [facility] [address] [id number] [place] [address]- 4099 Aug, [facility] [place] [facility] [address] [id number] [place] [address]- 1929 Jul, [facility] [place] [facility] [address] [id number] [place] [address]- 9537 Jul, [facility] [place] [facility] [address] [id number] [place] [address]- 3436 Jul, [facility] [place] [facility] [address] [id number] [place] [address]- 7198 Jul, [facility] [place] [facility] [address] [id number] [place] [address]- 2253 Jul, [facility] [place] [facility] [address] [id number] [place] [address]- 9424 Jul, [facility] [place] [facility] [address] [id number] [place] [address]- 5674 Jun, [facility] [place] [facility] [address] [id number] [place] [address]- 2639 Jun, [facility] [place] [facility] [address] [id number] [place] [address]- 5866 Jun, [facility] [place] [facility] [address] [id number] [place] [address]- 4268 Jun, [facility] [place] [facility] [address] [id number] [place] [address]- 5851 Jun, [facility] [place] [facility] [address] [id number] [place] [address]- 0406 May, [facility] [place] [facility] [address] [id number] [place] [address]- 3433 May, [facility] [place] [facility] [address] [id number] [place] [address]- 2046 May, [facility] [place] [facility] [address] [id number] [place] [address] 254 May, [facility] [place] [facility] [address] [id number] [place] [address]- 7823 May, [facility] [place] [facility] [address] [id number] [place] [address]- 0011 Apr, [facility] [place] [facility] [address] [id number] [place] [address]- 0701 Apr, [facility] [place] [facility] [address] [id number] [place] [address]- 6120 Mar, [facility] [place] [facility] [address] [id number] [place] [address]- 7079 Mar, [facility] [place] [facility] [address] [id number] [place] [address]- 3782 Mar, [facility] [place] [facility] [address] [id number] [place] [address]- 4740 Mar, [facility] [place] [facility] [address] [id number] [address]- 3557 Feb, [facility] [place] [facility] [address] [id number] [address] 2543 Jan, [facility] [place] [facility] [address] [id number] [place] [address] 2540 Jan, [facility] [place] [facility] [address] [id number] [place] [address] 2544 Aug, [facility] [place] [facility] [address] [id number] [place] [address]- 2546 Jul, [facility] [place] [facility] [address] [id number] [place] [address]- 5289 Jun, [facility] [place] [facility] [address] [id number] [place] [address]- 5597 May, [facility] [place] [facility] [address] [id number] [place] [address]- 9027 May, [facility] [place] [facility] [address] [id number] [place] [address]- 1079 May, [facility] [place] [facility] [address] [id number] [place] [address]- 1594 May, [facility] [place] [facility] [address] [id number] [place] [address]- 3181 Apr, [facility] [place] [facility] [address] [id number] [place] [address]- 9853 Apr, [facility] [place] [facility] [address] [id number] [place] [address]- 2581 Mar, [facility] [place] [facility] [address] [id number] [place] [address]- 3267 Mar, [facility] [place] [facility] [address] [id number] [place] [address]- 0160 Mar, [facility] [place] [facility] [address] [facility] [id number] [place] [address]- 6976 Mar, [facility] [place] [facility] [address] [id number] [place] [address]- 2786 Mar, [facility] [place] [facility] [address] [id number] [place] [address]- 3661 Mar, [facility] [place] [facility] [address] [id number] [place] [address]- 4196 Dec, [facility] [place] [facility] [address] [id number] [place] [address]- 2546 Dec, [facility] [place] [facility] [address] [facility] [id number] [place] [address]- 5096 Nov, [facility] [address] [facility] [id number] [address]- 2546 Nov, [facility] [id number] [address]- 2546 October, [facility] [id number] [address]- 2546 October, [facility] [address] [address]- 2546 Sep, [facility] [id number] [address]- 3326 Aug, [facility] [address] [address]- 2546 Aug, [facility] [id number] [address] 2546 Aug, IMMUNIZATIONS No Known Immunizations SOCIAL HISTORY Never Assessed REASON FOR VISIT med change PLAN OF CARE VITAL SIGNS MEDICATIONS Medication Instructions Dosage Frequency Start Date End Date Duration Status Oxycodone HCl 5 mg Orally 2 times a day 1 tablet 12h 10 Feb, 2018 Active RESULTS No Results PROCEDURES No Known procedures INSTRUCTIONS MEDICATIONS ADMINISTERED No Known Medications MEDICAL (GENERAL) HISTORY Type Description Date Medical History hyperlipidemia Medical History htn Medical History kidney failure stage 4 - dx in 2012 Medical History hypothyroidisim Medical History neuropathy Medical History COPD - See's Dr Burnette in [facility] Medical History Chronic Heart Failure Surgical History 2 cesareans Surgical History defibrillator - 2012 Hospitalization History pneumonia for a week 2016 Hospitalization History Hospitalized at [facility]- CHF, Chest pain. Dismissed 07/11/17 07/10/2017 Hospitalization History [facility] pneumonia, [facility] 07/30/17 Hospitalization History [facility]- R[facility] PNA, Respiratory Failure. Transfered to [facility] 10/25/2017 Hospitalization History CHF/COPD 11/2017
--- OUTSIDE RECORDS SUMMARY | 2018-06-13 21:39 | XMS REPORT ---
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 Name Role Phone LEE SILVA Unavailable PROBLEMS Type Condition ICD9-CM Code AZG13-HF Code Onset Dates Condition Status SNOMED Code Problem Cardiomyopathy I42.9 Active 41249396 Problem Acute on chronic systolic CHF (congestive heart failure) I50.23 Active 590667232 Problem Chronic obstructive pulmonary disease, unspecified J44.9 Active 84131588 Problem Gastroesophageal reflux disease without esophagitis K21.9 Active 241712101 Problem Chronic kidney disease, stage IV (severe) N18.4 Active 018601050 Problem Acquired hypothyroidism E03.9 Active 453830906 Problem Supplemental oxygen dependent Z99.81 Active 501347397144 Problem COPD with acute lower respiratory infection J44.0 Active 673685909 Problem Slow transit constipation K59.01 Active 78500381 Problem Essential hypertension I10 Active 39510557 Problem Chronic systolic heart failure I50.22 Active 361502162 Problem Anxiety F41.9 Active 76177893 Problem Paroxysmal atrial fibrillation I48.0 Active 266263163 Problem Mild depression F32.0 Active 261060233 Problem Chronic obstructive pulmonary disease with (acute) exacerbation J44.1 Active 839841028 Problem Anemia associated with chronic renal failure D63.1 Active 693911596 Problem Psychophysiological insomnia F51.04 Active 825817127 ALLERGIES No Information ENCOUNTERS Encounter Location Date Diagnosis [facility] [address] [facility] [id number] [address] Apr, [facility] [address] [id number], [place] [address] Apr, [facility] [address] [id number], [place] [address] Mar, [facility] [address] [id number] Mar, Acute respiratory failure with hypoxia J96.01 ; Acute pancreatitis, unspecified complication status, unspecified pancreatitis type K85.90 ; Chronic kidney disease, stage IV (severe) N18.4 ; Rash R21 and Gastroesophageal reflux disease without esophagitis K21.9 [facility] [address], [place] [address] Mar, Psychophysiological insomnia F51.04 [place] [id number] [place] [address]25- 0867 Mar, [facility] [address] [place] [id number] Feb, Vertigo R42 and Chronic kidney disease, stage IV (severe) N18.4 [place] [id number] [place] [address] 19671- 1627 24 Feb, 2018 [facility] [address] [place] [id number] Feb, Cellulitis of breast N61.0 [place] [id number] [place] [address] 88172- 9563 18 Feb, 2018 [place] [id number] [place] [address] 19992- 1326 Feb, [place] [id number] [place] [address] 71137- 4690 12 Feb, 2018 Psychophysiological insomnia F51.04 [facility] [address] [place] [id number] Feb, Urinary tract infection without hematuria, site unspecified N39.0 ; Chronic kidney disease, stage IV (severe) N18.4 and Chronic systolic heart failure I50.22 [place] [id number] [place] [address] 81546- 6490 10 Feb, 2018 [facility] [address] [id number] 04 Feb, 2018 Chronic kidney disease, stage IV (severe) N18.4 ; Chronic systolic heart failure I50.22 ; COPD with acute lower respiratory infection J44.0 ; Vertigo R42 ; Slow transit constipation K59.01 ; Hemorrhoids, unspecified hemorrhoid type K64.9 ; Acquired hypothyroidism E03.9 ; Candidiasis of breast B37.89 and Difficulty in urination R39.198 [place] [address] [address]- [address] Jan, Acute on chronic systolic CHF (congestive heart failure) I50.23 ; Acute kidney failure, unspecified N17.9 ; Chronic kidney disease, stage III (moderate) N18.3 and Supplemental oxygen dependent Z99.81 [place] [address] [address]- 8461 Jan, Acute on chronic combined systolic and diastolic CHF ( congestive heart failure) I50.[address] [address]- [address] Jan, [facility] [place] [address] [address] Jan, Irritant contact dermatitis due to cosmetics L24.3 ; Effusion of right wrist M25.431 and Pain in right wrist M25.531 [place] [address] 66116- 6425 Dec, Chronic systolic heart failure I50.22 ; Chronic obstructive pulmonary disease with (acute) exacerbation J44.1 ; CKD (chronic kidney disease ) stage 4, GFR 15-29 ml/min N18.4 ; Cardiomyopathy I42.9 ; Dependence on supplemental oxygen Z99.81 and Psychophysiological insomnia F51.04 [place] [id number] [place] [address] 06970- 3853 Dec, Anxiety F41.[address] [address]- 0908 Dec, [place] [address] 58959- 2149 Dec, [place] [address] 80345- 0619 Dec, [facility] [address] [place] [id number] 10 Dec, 2017 Encounter for examination for admission to fdc Z02.2 ; Chronic obstructive pulmonary disease, unspecified J44.9 ; Paroxysmal atrial fibrillation I48.0 ; CKD (chronic kidney disease) stage 4, GFR 15-29 ml/min N18.4 and Cardiomyopathy I42.9 [place] [address], [place] [address] Dec, [facility] [id number] [place] [address] 65527- 5882 Nov, Acute on chronic combined systolic and diastolic CHF ( congestive heart failure) I50.43 [place] [id number], [place] [address] Nov, [place] [id number], [place] [address] Nov, [place] [id number], [place] [address] Nov, Chronic systolic heart failure I50.22 ; Paroxysmal atrial fibrillation I48.0 ; Chronic obstructive pulmonary disease with (acute) exacerbation J44.1 ; Chronic kidney disease, stage 4 (severe) N18.4 ; Pain in right hip M25.551 and Pain in left hip M25.552 [place] [address], [place] [address] Nov, Chronic kidney disease, stage 4 (severe) N18.4 [facility] [address], [place] [address] 7[address] Nov, [facility] [address], [place] [address] 26[address] Nov, [facility] [address], [place] [address] October, Chronic obstructive pulmonary disease with (acute) exacerbation J44.1 ; Chronic systolic heart failure I50.22 ; CKD (chronic kidney disease) stage 4, GFR 15-29 ml/min N18.4 and Dependence on supplemental oxygen Z99.81 [facility] [address], [place] [address] 96[address] October, [facility] [id number] [place] [address] 27729- 3929 October, [facility] [id number] [place] [address] 34111- 4706 Sep, Chronic kidney disease, stage 4 (severe) N18.4 and Chronic kidney disease, stage IV (severe) N18.4 [place] [id number] [place] [address] 36025- 7657 Sep, Chronic kidney disease, stage 4 (severe) N18.4 [place] [id number] [place] [address] 59273- 8520 Sep, Anxiety F41.9 ; Paroxysmal atrial fibrillation I48.0 ; Chronic kidney disease, stage 4 (severe) N18.4 ; Chronic systolic heart failure I50.22 and Anemia associated with chronic renal failure D63.1 [place] [id number] [place] [address] 71197- 3568 Sep, [facility] [id number] [place] [address] 60470- 3778 Aug, [place] [id number] [place] [address] 46492- 4629 Aug, [facility] [address] [place] [id number] Aug, Acute on chronic combined systolic and diastolic CHF (congestive heart failure) I50.43 ; Essential hypertension I10 ; CKD (chronic kidney disease) stage 4, GFR 15-29 ml/min N18.4 ; Paroxysmal atrial fibrillation I48.0 and Mild depression F32.0 [facility] [id number] [place] [address] 46408- 2559 Aug, [facility] [id number] [place] [address] 61943- 8823 Aug, [facility] [address] [place] [address] 13127- 9887 14 Aug, 2017 Acute on chronic respiratory failure with hypoxia J96.21 ; Acute kidney failure, unspecified N17.9 ; Chronic kidney disease, stage 4 ( severe) N18.4 ; Acute on chronic combined systolic and diastolic CHF ( congestive heart failure) I50.43 ; Paroxysmal atrial fibrillation I48.0 and Cardiomyopathy, unspecified type I42.9 [facility] [id number] [place] [address] 72026- 2329 Aug, [facility] [id number] [place] [address] 64623- 9560 14 Jul, 2017 [facility] [id number] [place] [address] 70850- 6154 Jul, [facility] [id number] [place] [address] 85452- 6473 Jul, [facility] [id number] [place] [address] 14835- 5084 Jul, [facility] [id number] [place] [address] 74766- 4315 06 Jul, 2017 Community acquired pneumonia of right lower lobe of lung J18.1 ; CKD (chronic kidney disease) stage 4, GFR 15-29 ml/min N18.4 and Shortness of breath R06.02 [facility] [id number] [place] [address] [id number] 05 Jul, 2017 [facility] [id number] [place] [address] 68705- 6422 Jun, Anxiety F41.9 [facility] [id number] [place] [address] 37534- 8245 13 Apr, 2017 Anxiety F41.9 [facility] [id number] [place] [address] 47064- 3855 10 Apr, 2017 Cough R05 and Pneumonia of right lower lobe due to infectious organism J18.1 [place] [id number] [place] [address] 45705- 7505 Apr, [place] [address] 82127- 8339 Apr, Chronic kidney disease, stage IV (severe) N18.4 and COPD exacerbation J44.1 [place] [address] 04705- 2576 Feb, Chronic systolic heart failure I50.22 ; Essential hypertension I10 ; Anemia associated with chronic renal failure D63.1 and Chronic kidney disease, stage 4 (severe) N18.4 [place] [address] 28902- 2196 Feb, Anxiety F41.[address] 20210- 5880 Feb, [place] [address] 39962- 7605 Feb, [place] [id number] [place] [address] 31596- 9996 Jan, Other fatigue R53.83 ; Otalgia of both ears H92.03 and Urinary urgency R39.15 [place] [id number] [place] [address] 22272- 1463 Jan, Acute non-recurrent maxillary sinusitis J01.00 ; Chronic systolic heart failure I50.22 ; Stage 3 chronic kidney disease N18.3 and Mild depression F32.0 [place] [id number] [place] [address] 30050- 1651 Sep, [place] [address] 03523- 1763 Sep, [place] [address] 95095- 2561 17 Feb, [address] 03157- 7672 Feb, [facility] [place] [facility] [address] [id number] [place] [address]- 2980 Dec, [facility] [place] [facility] [address] [id number] [place] [address]- 0369 Dec, [facility] [place] [facility] [address] [id number] [place] [address]- 0014 Nov, [facility] [place] [facility] [address] [id number] [place] [address]- 7889 Nov, [facility] [place] [facility] [address] [id number] [place] [address]- 0825 Nov, [facility] [place] [facility] [address] [id number] [place] [address]- 3796 Nov, [facility] [place] [facility] [address] [id number] [place] [address]- 8286 October, [facility] [place] [facility] [address] [id number] [place] [address]- 9901 October, [facility] [place] [facility] [address] [id number] [place] [address]- 1574 Sep, [facility] [place] [facility] [address] [id number] [place] [address]- 5709 Sep, [facility] [place] [facility] [address] [id number] [place] [address]- 5901 Sep, [facility] [place] [facility] [address] [id number] [place] [address]- 9053 Sep, [facility] [place] [facility] [address] [id number] [place] [address]- 6757 Sep, [facility] [place] [facility] [address] [id number] [place] 1165 Aug, [facility] [place] [facility] [address] [id number] [place] 1145 Aug, [facility] [place] [facility] [address] [id number] [place] [address]- 0298 Aug, [facility] [place] [facility] [address] [id number] [place] [address]- 1941 Aug, [facility] [place] [facility] [address] [id number] [place] [address]- 7671 Aug, [facility] [place] [facility] [address] [id number] [place] [address]- 6175 Aug, [facility] [place] [facility] [address] [id number] [place] [address]- 0703 Aug, [facility] [place] [facility] [address] [id number] [place] [address]- 6144 Aug, [facility] [place] [facility] [address] [id number] [place] [address]- 2240 Jul, [facility] [place] [facility] [address] [id number] [place] [address]- 7264 Jul, [facility] [place] [facility] [address] [id number] [place] [address]- 1610 Jul, [facility] [place] [facility] [address] [id number] [place] [address]- 1626 Jul, [facility] [place] [facility] [address] [id number] [place] [address]- 1604 Jul, [facility] [place] [facility] [address] [id number] [place] [address]- 7331 Jul, [facility] [place] [facility] [address] [id number] [place] [address]- 2211 Jun, [facility] [place] [facility] [address] [id number] [place] [address]- 7095 Jun, [facility] [place] [facility] [address] [id number] [place] [address]- 3334 Jun, [facility] [place] [facility] [address] [id number], [place] [address]- 0456 Jun, [facility] [address] [id number] [place] [address]- 2987 Jun, [facility] [place] [facility] [address] [id number] [place] [address]- 5235 May, [facility] [place] [facility] [address] [id number] [place] [address]- 9581 May, [facility] [place] [facility] [address] [id number], [place] [address]- 1669 May, [facility] [place] [facility] [address] [id number] [place] [address]- 1225 May, [facility] [place] [facility] [address] [id number] [place] [address]- 6455 May, [facility] [place] [facility] [address] [id number] [place] [address]- 2011 Apr, [facility] [place] [facility] [address] [id number] [place] [address]- 9370 Apr, [facility] [place] [facility] [address] [id number] [place] [address]- 9069 Mar, [facility] [place] [facility] [address] [id number] [place] [address]- 2198 Mar, [facility] [place] [facility] [address] [id number], [place] [address]- 7948 Mar, [facility] [place] [facility] [address] [id number], [place] [address] 2547 Mar, [facility] [place] [facility] [address] [id number] [place] [address] 2542 Feb, [facility] [place] [facility] [address] [id number], [place] [address] 2540 Jan, [facility] [place] [facility] [address] [id number] [place] [address]- 2546 Jan, [facility] [place] [facility] [address] [id number] [place] [address]- 3421 Aug, [facility] [address] [id number] [place] [address]- 7043 08 Jul, 2012 [facility] [place] [facility] [address] [id number] [place] [address]- 3586 Jun, [facility] [address] [id number] [place] [address]- 6859 May, [facility] [place] [facility] [address] [id number] [place] [address]- 1660 May, [facility] [address] [id number] [place] [address], [place] [address]- 3234 May, [facility] [place] [facility] [address] [facility] [id number] [place] [address]- 5247 May, [facility] [place] [facility] [address] [facility] [id number] [place] [address]- 0933 Apr, [facility] [address] [id number] [place] [address]- 0798 Apr, [facility] [place] [facility] [id number] [place] [address]- 7500 Mar, [facility] [address] [facility] [id number] [place] [address]- 3738 Mar, [facility] [place] [facility] [address] [facility] [id number] [place] [address]- 3659 Mar, [facility] [place] [facility] [address] [id number] [place] [address]- 0446 Mar, [facility] [place] [facility] [address] [facility] [id number] [place] [address]- 7168 Mar, [facility] [place] [facility] [address] [facility] [id number] [place] [address]- 1495 Mar, [facility] [place] [facility] [address] [facility] [id number] [place] [address]- 4701 Dec, [facility] [id number], [place] [address]- 2546 Dec, [facility] [id number], [place] [address]- 2546 Nov, [facility] [id number], [place] [address]- 2546 Nov, [facility] [address], [place] [address]- 2546 October, [facility] [address], [place] [address]- 2546 October, [facility] [address], [place] [address]- 2546 Sep, [facility] [address], [place] [address]- 2546 Aug, [facility] [address], [place] [address]- 2546 Aug, [facility] [id number], [place] [address]- 2546 Aug, IMMUNIZATIONS No Known Immunizations SOCIAL HISTORY Never Assessed REASON FOR VISIT Patient Fall Report PLAN OF CARE VITAL SIGNS MEDICATIONS Unknown [...] 07/11/17 07/10/2017 Hospitalization History [facility] pneumonia, hypoxia-[facility] 07/30/17 Hospitalization History [facility]- [facility] PNA, Respiratory Failure. Transfered to [place] 10/25/2017 Hospitalization History CHF/COPD 11/2017
[2018-06-13] MEDS ORDERED: MIDO10TA (21:41)
[2018-06-13] MEDS ORDERED: CEPH500C (21:41)
[2018-06-13] MEDS ORDERED: HEPA500018 (21:41)
[2018-06-13] MEDS ORDERED: SEVE800T13 (21:41)
[2018-06-13] MEDS ORDERED: ASPIRIN 325 MG (5 GR) TABLET PO ONE (21:45)
[2018-06-13] MEDS: NITROGLYCERIN 0.4 MG SL TABS BTL 25'S SL PRN ×3 (21:50→22:07)
[2018-06-13 22:13] LABS: BASOPHILS # (AUTO) 0.1 10^3/uL (0.0-0.1); BASOPHILS % (AUTO) 1 % (0-10); EOSINOPHILS % (AUTO) 0 % (0-10); HEMATOCRIT 37 % (35-52); HEMOGLOBIN 11.5 G/DL (11.5-16.0); LYMPHOCYTES # (AUTO) 0.8 X 10^3 (1.0-4.0); LYMPHOCYTES % (AUTO) 12 % (12-44); MEAN CORPUSCULAR HEMOGLOBIN 30 PG (25-34); MEAN CORPUSCULAR HGB CONC 31 G/DL (32-36); MEAN CORPUSCULAR VOLUME 97 FL (80-99); MEAN PLATELET VOLUME 12.6 FL (7.4-10.4); MONOCYTES # (AUTO) 0.7 X 10^3 (0.0-1.0); MONOCYTES % (AUTO) 11 % (0-12); NEUTROPHILS # (AUTO) 5.2 X 10^3 (1.8-7.8); NEUTROPHILS % (AUTO) 76 % (42-75); PLATELET COUNT 224 10^3/uL (130-400); RED CELL DISTRIBUTION WIDTH 18.2 % (10.0-14.5); WHITE BLOOD COUNT 6.8 10^3/uL (4.3-11.0)
[2018-06-13 22:18] LABS: INR 1.2 (0.8-1.4); PROTHROMBIN TIME PATIENT 14.8 SEC (12.2-14.7)
--- NOTE | 2018-06-13 22:23 | ED Chest Pain ---
General Chief Complaint: Chest Pain Stated Complaint: SOB,CHEST PAIN Nursing Triage Note: chest pain, soa x1hr Nursing Sepsis Screen: No Definite Risk Source: patient, old records History of Present Illness Date Seen by Provider: Jun 13, 2018 Time Seen by Provider: 21:34 Initial Comments PT ARRIVES VIA POV FROM HOME--CURRENTLY LIVING WITH DAUGHTER AND [id number]--PT HAD BEEN LIVING AT [facility]. 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 SOME WITH SIGNS OF LOCAL CELLULITIS PT HAS HISTORY OF FREQUENT FALLS, AND FELL EARLIER TODAY, BUT DENIES ANY INJURY OR PAIN FROM THE FALL. MULTIPLE VISITS--13 IN 2018 PCP: DR. VERNON AT [facility]- METAL MOULDER'S ASSISTANT: DR. GONZALEZ AT [facility] STENCIL TYPIST: DR. DANGELO Allergies and Home Medications Allergies Coded Allergies: propoxyphene napsylate (Unverified Allergy, Severe, SEVERE NAUSEA AND VOMITING , 04/03/13) meperidine (Unverified Allergy, Unknown, 12/19/14) venom-honey bee (Verified Allergy, Unknown, 09/19/13) lisinopril (Verified Adverse Reaction, Unknown, PT STATES "BOTTOMS OUT" HER BLOOD PRESSURE, 03/12/15) Patient states that it "bottoms out" her blood pressure. She will refuse to take this medication and reports it as an allergy. Home Medications Acetaminophen 500 Mg Tablet, 1,000 MG PO Q6H PRN for PAIN-MILD, (Reported) Amiodarone HCl 200 Mg Tablet, 200 MG PO DAILY, (Reported) Calcium Carbonate 300 Mg Tab.chew, 300 MG PO QID PRN for INDIGESTION, (Reported) Carvedilol 12.5 Mg Tablet, 12.5 MG PO BID, (Reported) Ferrous Sulfate 325 Mg Tablet, 325 MG PO DAILY, (Reported) Furosemide 10 Mg/1 Ml Vial, 100 MG IVP BID@0500,1700 Prescribed by: SAM GIBBS on 12/26/17 1047 Ipratropium/Albuterol Sulfate 3 Ml Ampul.neb, 3 ML NEB TID, (Reported) Ipratropium/Albuterol Sulfate 3 Ml Ampul.neb, 3 ML IH Q4H PRN for SHORTNESS OF BREATH, (Reported) Isosorbide Mononitrate 30 Mg Tab.er.24h, 15 MG PO BID, (Reported) TAKES 1/2 (30MG) TABLET Levothyroxine Sodium 25 Mcg Tablet, 25 MCG PO DAILY, (Reported) Loperamide HCl 2 Mg Capsule, 2 MG PO UD PRN for DIARRHEA, (Reported) Lorazepam 0.5 Mg Tablet, 0.5 MG PO HS, (Reported) Magnesium Oxide 400 Mg Tablet, 400 MG PO DAILY, (Reported) Multivitamins-Min/FA/Ginkgo 1 Each Tablet, 1 TAB PO DAILY, (Reported) Omeprazole 40 Mg Capsule.dr, 40 MG PO DAILY, (Reported) Ondansetron 4 Mg Tab.rapdis, 4 MG SL Q6H PRN for NAUSEA/VOMITING-1ST LINE, ( Reported) Oxycodone HCl 5 Mg Tablet, 5 MG PO Q4H PRN for PAIN-SEVERE, (Reported) Sertraline HCl 100 Mg Tablet, 150 MG PO HS, (Reported) TAKES 1 & 1/2 OF A (100 MG) TABLET Patient Home Medication List Home Medication List Reviewed: Yes Review of Systems Review of Systems Constitutional: no symptoms reported; No chills, No diaphoresis, No dizziness Respiratory: See HPI; Denies Cough; Orthopnea, Shortness of Air Cardiovascular: See HPI, Chest Pain, Edema; Denies Lightheadedness, Denies Palpitations Gastrointestinal: No Symptoms Reported Genitourinary: No Symptoms Reported Musculoskeletal: no symptoms reported Skin: no symptoms reported Psychiatric/Neurological: No Symptoms Reported Endocrine: No Symptoms Reported Hematologic/Lymphatic: No Symptoms Reported Past Eaufunr-Bhebhc-Iebpzo Hx Patient Social History Alcohol Use: Denies Use Recreational Drug Use: Yes (HX OF THC USE) Drug of Choice: THC USE IN PAST Smoking Status: Former Smoker Type Used: Cigarettes Former Smoker, Quit: Jul 09, 2017 2nd Hand Smoke Exposure: No Recent Foreign Travel: No Contact w/Someone Who Travel: No Recent Infectious Disease Expo: No Recent Hopitalizations: No Immunizations Up To Date Tetanus Booster (TDap): Unknown PED Vaccines UTD: No Date of Pneumonia Vaccine: Mar 30, 2013 Date of Influenza Vaccine: Jul 11, 2017 Seasonal Allergies Seasonal Allergies: Yes Past Medical History Surgeries: Yes (CARDIAC CATH-NO INTERVENTION; RIGHT CENTRAL LINE FOR DIALYSIS; RIGHT ARM AV FISTULA) Cardiac, Section, Defibrillator, Dialysis, Hysterectomy, Vascular Surgery Respiratory: Yes (CHRONIC RESPIRATORY FAILURE/HYPOXIA; CHF/PULMONARY EDEMA; O2 AT 3L/NC CONTINUOUSLY) Asthma, Pneumonia, COPD Currently Using CPAP: No Currently Using BIPAP: No Cardiac: Yes (CHF EF 20% non ischemic, left atrial thrombus; CHF/ PULMONARY EDEMA) Atrial Fibrillation, Cardiomyopathy, Chronic Edema/Swelling, Coronary Artery Disease, High Cholesterol, Hypertension Neurological: Yes Headaches /Migraines : No 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 Disorders: Yes (Hysterectomy) 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 Disorders: Denies 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, 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 Sexually Transmitted Disease: No HIV/AIDS: No Genitourinary: Yes (ESRD ON DIALYSIS S-D-Z--STILL MAKES SOME URINE, BUT DOES NOT ALWAYS URINATE EVERY DAY.) Renal Failure, Dialysis, UTI-Chronic Gastrointestinal: Yes (history of elevated transaminases, HX of elevated liver enzymes) Gastroesophageal Reflux, Hiatal Hernia Musculoskeletal: Yes (CHRONIC GENERALIZED PAIN AND WEAKNESS; POOR MOBILITY/ FREQUENT FALLS/ POOR COORDINATION) Arthritis Endocrine: Yes Hypothyroidsim HEENT: Yes Cataract Loss of Vision: Denies Hearing Impairment: Denies Cancer: Yes Bladder Psychosocial: Yes Sleep Difficulties, Anxiety, Depression Integumentary: No Blood Disorders: Yes (ANEMIA) Adverse Reaction/Blood Tranf: No Family Medical History Cancer 19 FATHER (HODGKINS ) 19 MOTHER (BRAIN TUMOR ) Congenital heart disease 19 MOTHER Congestive heart failure 19 MOTHER Family history: Cardiovascular disease 19 MOTHER G8 SISTER G8 SISTER Family history: Hypertension 19 MOTHER G8 SISTER G8 SISTER Heart disease 19 MOTHER G8 SISTER G8 SISTER History of - respiratory disease 19 MOTHER G8 BROTHER G8 SISTER Heart Disease, Cancer, Hypertension Physical Exam Vital Signs Vital Signs - First Documented 06/13/18 21:33 Temp 98.2 Pulse 93 Resp 16 B/P (MAP) 132/88 (103) Capillary Refill : Less Than 3 Seconds Height, Weight, BMI Height: 4'9.00" Weight: 149lbs. 6.0oz. 67.683986yn; 34.6 BMI Method:Stated General Appearance: No Apparent Distress, WD/WN, Other (TALKS IN FULL SENTENCES , DOES NOT APPEAR TO BE IN ANY DISCOMFORT OR DISTRESS, VERY SLIGHT DYSPNEA WITH TRANSFER FROM WHEELCHAIR TO BED, THEN NO DYSPNEA ONCE SETTLED INTO BED. ) HEENT: Other (BILATERAL PERIORBITAL EDEMA/ EXOPHTHALMOS) Neck: Full Range of Motion, Non Tender, JVD Respiratory: No Accessory Muscle Use, No Respiratory Distress, Rales (IN BASES BILATERALLY), Other (RIGHT CHEST CENTRAL LINE) Cardiovascular: Regular Rate, Rhythm, No Murmur, JVD Gastrointestinal: Non Tender, Soft Extremity: Normal Range of Motion, Pedal Edema (2+ EDEMA BILATERALLY), Other ( RIGHT ARM AV FISTULA/DIALYSIS GRAFT. ) Neurologic/Psychiatric: Alert, Oriented x3, No Motor/Sensory Deficits, Normal Mood/Affect Skin: Normal Color, Warm/Dry, Other (EXTENSIVE SORES/SCABS/SCARS TO ARMS, UPPER BACK, ABDOMEN AND LOWER LEGS--VARIOUS STAGES OF HEALLING, SOME WITH SIGNS OF LOCAL CELLULITIS--FROM "PICKING" ) Procedures/Interventions Date of ETT Placement: Aug 20, 2017 Time of ETT Placement: 628 Progress/Results/Core Measures Results/Orders Lab Results Laboratory Tests Test 06/13/18 21:40 Range/Units White Blood Count 6.8 4.3-11.0 10^3/uL Red Blood Count 3.80 L 4.35-5.85 10^6/uL Hemoglobin 11.5 11.5-16.0 G/DL Hematocrit 37 35-52 % Mean Corpuscular Volume 97 80-99 FL Mean Corpuscular Hemoglobin 30 25-34 PG Mean Corpuscular Hemoglobin Concent 31 L 32-36 G/DL Red Cell Distribution Width 18.2 H 10.0-14.5 % Platelet Count 224 130-400 10^3/uL Mean Platelet Volume 12.6 H 7.4-10.4 FL Neutrophils (%) (Auto) 76 H 42-75 % Lymphocytes (%) (Auto) 12 12-44 % Monocytes (%) (Auto) 11 0-12 % Eosinophils (%) (Auto) 0 0-10 % Basophils (%) (Auto) 1 0-10 % Neutrophils # (Auto) 5.2 1.8-7.8 X 10^3 Lymphocytes # (Auto) 0.8 L 1.0-4.0 X 10^3 Monocytes # (Auto) 0.7 0.0-1.0 X 10^3 Eosinophils # (Auto) 0.0 0.0-0.3 10^3/uL Basophils # (Auto) 0.1 0.0-0.1 10^3/uL Prothrombin Time 14.8 H 12.2-14.7 SEC INR Comment 1.2 0.8-1.4 Activated Partial Thromboplast Time 39 H 24-35 SEC Sodium Level 130 L 135-145 MMOL/L Potassium Level 3.2 L 3.6-5.0 MMOL/L Chloride Level 91 L 98-107 MMOL/L Carbon Dioxide Level 22 21-32 MMOL/L Anion Gap 17 H 5-14 MMOL/L Blood Urea Nitrogen 13 7-18 MG/DL Creatinine 2.99 H 0.60-1.30 MG/DL Estimat Glomerular Filtration Rate 16 BUN/Creatinine Ratio 4 Glucose Level 115 H 70-105 MG/DL Calcium Level 9.2 8.5-10.1 MG/DL Corrected Calcium 9.6 8.5-10.1 MG/DL Magnesium Level 1.8 1.8-2.4 MG/DL Total Bilirubin 1.2 H 0.1-1.0 MG/DL Aspartate Amino Transf (AST/SGOT) 74 H 5-34 U/L Alanine Aminotransferase (ALT/SGPT) 60 H 0-55 U/L Alkaline Phosphatase 181 H 40-136 U/L Total Creatine Kinase 18 L 29-168 U/L Creatine Kinase MB 1.5 <6.6 NG/ML Myoglobin 147.0 H 10.0-92.0 NG/ML Troponin I < 0.30 <0.30 NG/ML B-Type Natriuretic Peptide 57754.5 H <100.0 PG/ML Total Protein 7.0 6.4-8.2 GM/DL Albumin 3.5 3.2-4.5 GM/DL Amylase Level 35 25-125 U/L Lipase 22 8-78 U/L My Orders Orders - YANE WAKEFIELD DO Cbc With Automated Diff (06/13/18 21:33) Magnesium (06/13/18 21:33) Chest 1 View, Ap/Pa Only (06/13/18 21:33) Ekg Tracing (06/13/18 21:33) Cardiac Profile 1 (06/13/18 21:33) Comprehensive Metabolic Panel (06/13/18 21:33) Myoglobin Serum (06/13/18 21:33) Protime With Inr (06/13/18 21:33) Partial Thromboplastin Time (06/13/18 21:33) O2 (06/13/18 21:33) Monitor-Rhythm Ecg Trace Only (06/13/18 21:33) Lipid Panel (06/14/18 06:00) Aspirin Tablet (Aspirin Tablet) (06/13/18 21:45) Nitroglycerin 0.4 Mg Btl 25's (Nitrostat (06/13/18 21:45) Saline Lock/Iv-Start (06/13/18 21:33) Creatine Kinase (06/13/18 21:33) Creatine Kinase Mb (06/13/18 21:33) Lipase (06/13/18 21:33) Amylase (06/13/18 21:33) BNP (06/13/18 21:33) Ondansetron Injection (Zofran Injectio (06/13/18 22:45) Nitroglycerin Ointment (Nitrobid Ointme (06/13/18 23:00) Enoxaparin Injection (Lovenox Injection) (06/13/18 23:00) Furosemide Injection (Lasix Injection) (06/13/18 23:00) Ondansetron Injection (Zofran Injectio (06/13/18 23:15) Promethazine Injection (Phenergan Injec (06/14/18 00:15) Medications Given in ED Current Medications Medications Dose Ordered Sig/Cade Route Start Time Stop Time Status Last Admin Dose Admin Aspirin 325 mg ONCE ONCE PO 06/13/18 21:45 06/13/18 21:47 DC 06/13/18 21:50 325 MG Enoxaparin Sodium 70 mg ONCE ONCE SC 06/13/18 23:00 06/13/18 23:01 06/13/18 23:10 70 MG Furosemide 40 mg ONCE ONCE IVP 06/13/18 23:00 06/13/18 23:01 UNV 06/13/18 23:10 40 MG Nitroglycerin 0.4 mg UD PRN SL 06/13/18 21:45 06/13/18 22:14 DC 06/13/18 22:07 0.4 MG Nitroglycerin 0.5 inch ONCE ONCE TOP 06/13/18 23:00 06/13/18 23:01 06/13/18 23:10 0.5 INCH Ondansetron HCl 4 mg ONCE ONCE IVP 06/13/18 22:45 06/13/18 22:46 DC 06/13/18 22:47 4 MG Ondansetron HCl 4 mg ONCE ONCE IVP 06/13/18 23:15 06/13/18 23:16 UNV 06/13/18 23:16 4 MG Vital Signs/I&O 06/13/18 06/13/18 06/13/18 06/13/18 21:33 21:33 21:33 21:50 Temp 98.2 98.2 Pulse 93 Resp 16 B/P (MAP) 132/88 (103) Pulse Ox 100 100 O2 Delivery Nasal Cannula Nasal Cannula Nasal Cannula O2 Flow Rate 3.00 3.0 3.0 Blood Pressure Mean: 103 Progress Progress Note : Progress Note 100% ON 3L/NC PAIN DOWN TO 8/10 WITH NTG X 3 2245--PAIN NOW DOWN TO 4/10 AFTER NTG, BUT NAUSEATED AND DRY HEAVING. GIVEN ZOFRAN. 2310--PAIN DOWN TO 3/10. WILL ADD NITROPASTE, PT STILL A LITTLE NAUSEATED AND BELCHING BUT NO DRY HEAVING. GIVEN AN ADDITIONAL DOSE OF ZOFRAN. ALSO GIVEN LASIX AND LOVENOX. PT STATES SHE DOES TAKE HEPARIN SHOTS TWICE A DAY BUT HAS NO IDEA THE DOSE. 0005--STATES CHEST PAIN IS GONE, BUT STILL C/O NAUSEA, NO LONGER BELCHING OR DRY HEAVING. PHENERGAN GIVEN. NO DETERIORATION IN PT'S CONDITION NO COMPLAINTS OF SHORTNESS OF BREATH FOR REMAINDER OF ER STAY Initial ECG Impression Date: Jun 13, 2018 Initial ECG Impression Time: 21:41 Initial ECG Rate: 90 Initial ECG Rhythm: Normal Sinus (IVCK) Initial ECG Comparisson: Changed (AXIS CHANGES FROM 04/24/18) Diagnostic Imaging Comments CXR--CHF/PULMONARY EDEMA/FLUID OVERLOAD--PENDING RADIOLOGIST REVIEW Reviewed: Reviewed by Me Departure Communication (Admissions) [id number]--CALLED [facility] H[facility]PITALIST, DR. GARCIA [id number]--SPOKE WITH DR. GARCIA, ACCEPTS PT FOR TRANSFER. Impression Primary Impression: Chest pain Additional Impressions: ESRD (end stage renal disease) on dialysis Fluid overload Chronic systolic (congestive) heart failure COPD (chronic obstructive pulmonary disease) Electrolyte imbalance MULTIPLE INFECTED SORES Disposition: XFER SHT-TRM HOSP Condition: Improved Transfer Time Spoke to Accepting Phy: 22:55 Transfer Facility: [facility] Method of Transfer: EMS Departure-Patient Inst. Referrals: TEAGAN VERNON MD (PCP/Family) Primary Care Physician YANE WAKEFIELD DO Jun 13, 2018 22:23
[2018-06-13 22:28] LABS: ALANINE AMINOTRANSFERASE 60 U/L (0-55); ALBUMIN 3.5 GM/DL (3.2-4.5); ALKALINE PHOSPHATASE 181 U/L (40-136); AMYLASE 35 U/L (25-125); BILIRUBIN,TOTAL 1.2 MG/DL (0.1-1.0); BUN/CREATININE RATIO 4; CALCIUM 9.2 MG/DL (8.5-10.1); CARBON DIOXIDE 22 MMOL/L (21-32); CHLORIDE 91 MMOL/L (98-107); CREATINE KINASE 18 U/L (29-168); CREATININE SERUM 2.99 MG/DL (0.60-1.30); GFR ESTIMATED 16; GLUCOSE 115 MG/DL (70-105); LIPASE 22 U/L (8-78); MAGNESIUM 1.8 MG/DL (1.8-2.4); POTASSIUM 3.2 MMOL/L (3.6-5.0); SODIUM 130 MMOL/L (135-145)
[2018-06-13 22:36] LABS: CREATINE KINASE MB 1.5 NG/ML (<6.6)
[2018-06-13] MEDS ORDERED: ONDANSETRON 4 MG/2 ML (SDV) Z0FRAN IVP ONE ×2 (22:45→23:15)
[2018-06-13] MEDS ORDERED: NITROGLYCERIN 2% OINT 1 GM UNIT DOSE PACKET TOP ONE (23:00)
[2018-06-13] MEDS ORDERED: FUROSEMIDE 40 MG/4 ML INJ (LASIX) IVP ONE (23:00)
[2018-06-13] MEDS ORDERED: ENOXAPARIN 80 MG/0.8 ML (LOVENOX) SYR SC ONE (23:00)
[2018-06-14] MEDS ORDERED: PROMETHAZINE INJ 25 MG/ML (PHENERGAN) AMP IVP ONE (00:15)
[2018-06-14 00:20] VITALS: BP 132/81
--- NOTE | 2018-06-14 06:52 | Diagnostic Imaging Report ---
Indication: Chest pain and dyspnea for one hour. Comparison: 04/24/2018. Discussion: Single portable upright view of the chest was obtained. Cardiomegaly is again noted. Dialysis catheter on the right and left-sided pacemaker are stable. Small bilateral pleural effusions are new. Bilateral mixed interstitial and alveolar opacities is suggestive of mild pulmonary edema. No pneumothorax or osseous abnormality. Impression: 1. Cardiomegaly with mild failure. Dictated by: Dictated on workstation # [id number]
== END 2018-06-14 00:23 | disposition short-term general hospital (02) ==
LOC: EDUNIT# 21:31 → ER 21:32
DX: R07.9 Chest pain, unspecified (principal); I13.0 Hypertensive heart and chronic kidney disease with heart failure and stage 1 through stage 4 chronic kidney disease, or unspecified chronic kidney disease; N18.6 End stage renal disease; I50.22 Chronic systolic (congestive) heart failure; E87.70 Fluid overload, unspecified; J44.9 Chronic obstructive pulmonary disease, unspecified; E87.8 Other disorders of electrolyte and fluid balance, not elsewhere classified; L98.9 Disorder of the skin and subcutaneous tissue, unspecified; I48.91 Unspecified atrial fibrillation; I42.9 Cardiomyopathy, unspecified; E03.9 Hypothyroidism, unspecified; E78.00 Pure hypercholesterolemia, unspecified; G43.909 Migraine, unspecified, not intractable, without status migrainosus; I25.10 Atherosclerotic heart disease of native coronary artery without angina pectoris; F41.9 Anxiety disorder, unspecified; F32.9 Major depressive disorder, single episode, unspecified; Z95.810 Presence of automatic (implantable) cardiac defibrillator; D63.1 Anemia in chronic kidney disease; Z87.440 Personal history of urinary (tract) infections; Z99.2 Dependence on renal dialysis; Z85.51 Personal history of malignant neoplasm of bladder; Z80.7 Family history of other malignant neoplasms of lymphoid, hematopoietic and related tissues; Z82.49 Family history of ischemic heart disease and other diseases of the circulatory system; Z91.81 History of falling; Z88.8 Allergy status to other drugs, medicaments and biological substances; Z87.891 Personal history of nicotine dependence; Z95.9 Presence of cardiac and vascular implant and graft, unspecified; Z98.890 Other specified postprocedural states; Z90.710 Acquired absence of both cervix and uterus; Z87.01 Personal history of pneumonia (recurrent)
CPT/HCPCS: 36415; 71045; 80053; 82150; 82550; 82553; 83690; 83735; 83874; 83880; 84484; 85025; 85610; 85730; 93005; 93041

== ENCOUNTER 2018-06-17 13:35 | Emergency (ER) | payer MEDICARE, MEDICAID ==
[~2018-06-17] VITALS: Ht 144.8 cm; Wt 65.8 kg
[~2018-06-17 13:35] MED LIST changes: +CEPH500C; +HEPA500018; +MIDO10TA; +SEVE800T13
--- OUTSIDE RECORDS SUMMARY | 2018-06-17 13:42 | XMS REPORT ---
Author Author TEAGAN VERNON [facility] Address [address] [place] [address] Care Team Providers Care Economics Lecturer Name Role Phone TEAGAN VERNON Unavailable PROBLEMS Type Condition ICD9-CM Code SDS65-AI Code Onset Dates Condition Status SNOMED Code Problem Cardiomyopathy I42.9 Active 10051334 Problem Acute on chronic systolic CHF (congestive heart failure) I50.23 Active 447151123 Problem Chronic obstructive pulmonary disease, unspecified J44.9 Active 38519712 Problem Gastroesophageal reflux disease without esophagitis K21.9 Active 997799200 Problem Chronic kidney disease, stage IV (severe) N18.4 Active 453799920 Problem Acquired hypothyroidism E03.9 Active 108586432 Problem Supplemental oxygen dependent Z99.81 Active 408188612569 Problem COPD with acute lower respiratory infection J44.0 Active 936656088 Problem Slow transit constipation K59.01 Active 82838371 Problem Essential hypertension I10 Active 31066921 Problem Chronic systolic heart failure I50.22 Active 542053663 Problem Anxiety F41.9 Active 38341594 Problem Paroxysmal atrial fibrillation I48.0 Active 357359336 Problem Mild depression F32.0 Active 508306653 Problem Chronic obstructive pulmonary disease with (acute) exacerbation J44.1 Active 281651510 Problem Anemia associated with chronic renal failure D63.1 Active 719003745 Problem Psychophysiological insomnia F51.04 Active 690600366 ALLERGIES No Information ENCOUNTERS Encounter Location Date Diagnosis [facility] [address] [facility] [id number] [address] Jun, [facility] [address] [id number], [place] [address] May, [facility] [address] [id number] [address] May, [facility] [id number] [place] [address] 01155- 0370 May, [place] [id number] [place] [address] 52657- 7380 Apr, [facility] [address] [place] [id number] Apr, Mild depression F32.0 ; Essential hypertension I10 ; Chronic systolic heart failure I50.22 ; Chronic obstructive pulmonary disease with (acute) exacerbation J44.1 ; Paroxysmal atrial fibrillation I48.0 ; Chronic kidney disease, stage IV (severe) N18.4 ; Acquired hypothyroidism E03.9 ; Clotted dialysis access, sequela T82.49XS ; Psychophysiological insomnia F51.04 and Gastroesophageal reflux disease without esophagitis K21.9 [place] [id number] [place] [address] 07801- 0568 Apr, Psychophysiological insomnia F51.04 [place] [id number] [place] [address] 70992- 2680 14 Apr, 2018 [place] [id number] [place] [address] 78611- 4909 Apr, [place] [id number] [place] [address] 82490- 1444 Mar, [facility] [address] [place] [id number] Mar, Acute respiratory failure with hypoxia J96.01 ; Acute pancreatitis, unspecified complication status, unspecified pancreatitis type K85.90 ; Chronic kidney disease, stage IV (severe) N18.4 ; Rash R21 and Gastroesophageal reflux disease without esophagitis K21.9 [place] [id number] [place] [address] 36669- 4940 Mar, Psychophysiological insomnia F51.04 [place] [id number] [place] [address] 09682- 5413 Mar, [facility] [address] [place] [id number] Feb, Vertigo R42 and Chronic kidney disease, stage IV (severe) N18.4 [place] [address], [place] [address] 24 Feb, 2018 [facility] [address] [place] [id number] 20 Feb, 2018 Cellulitis of breast N61.0 [place] [address], [place] [address] 18 Feb, 2018 [place] [address], [place] [address] 5079 16 Feb, 2018 [place] [address], [place] [address] 9266 12 Feb, 2018 Psychophysiological insomnia F51.04 [facility] [address] [facility] [id number] 11 Feb, 2018 Urinary tract infection without hematuria, site unspecified N39.0 ; Chronic kidney disease, stage IV (severe) N18.4 and Chronic systolic heart failure I50.22 [place] [address], [place] [address] 10 Feb, 2018 [facility] [address] [facility] [place] [id number] 04 Feb, 2018 Chronic kidney disease, stage IV (severe) N18.4 ; Chronic systolic heart failure I50.22 ; COPD with acute lower respiratory infection J44.0 ; Vertigo R42 ; Slow transit constipation K59.01 ; Hemorrhoids, unspecified hemorrhoid type K64.9 ; Acquired hypothyroidism E03.9 ; Candidiasis of breast B37.89 and Difficulty in urination R39.198 [place] [address], [place] [address] Jan, Acute on chronic systolic CHF (congestive heart failure) I50.23 ; Acute kidney failure, unspecified N17.9 ; Chronic kidney disease, stage III (moderate) N18.3 and Supplemental oxygen dependent Z99.81 [place] [address], [place] [address] 74[address] Jan, Acute on chronic combined systolic and diastolic CHF ( congestive heart failure) I50.43 [place] [id number] [place] [address] 26232- 1988 Jan, [facility] [id number] [place] [address] 97989 -9404 Jan, Irritant contact dermatitis due to cosmetics L24.3 ; Effusion of right wrist M25.431 and Pain in right wrist M25.531 [place] [id number] [place] [address] 13631- 5326 Dec, Chronic systolic heart failure I50.22 ; Chronic obstructive pulmonary disease with (acute) exacerbation J44.1 ; CKD (chronic kidney disease ) stage 4, GFR 15-29 ml/min N18.4 ; Cardiomyopathy I42.9 ; Dependence on supplemental oxygen Z99.81 and Psychophysiological insomnia F51.04 [place] [address] [address]892- 6109 Dec, Anxiety F41.[address] [address]- 0602 Dec, [place] [address] 57247- 6669 Dec, [place] [address] 62674- 1247 Dec, [facility] [address] [place] [id number] Dec, Encounter for examination for admission to long term Z02.2 ; Chronic obstructive pulmonary disease, unspecified J44.9 ; Paroxysmal atrial fibrillation I48.0 ; CKD (chronic kidney disease) stage 4, GFR 15-29 ml/min N18.4 and Cardiomyopathy I42.9 [place] [id number] [place] [address] 76693- 9456 Dec, [place] [address] 9[address]61- 5062 Nov, Acute on chronic combined systolic and diastolic CHF ( congestive heart failure) I50.43 [place] [address] 69337- 4128 Nov, [facility] [address], [place] [address] Nov, [facility] [address], [place] [address] Nov, Chronic systolic heart failure I50.22 ; Paroxysmal atrial fibrillation I48.0 ; Chronic obstructive pulmonary disease with (acute) exacerbation J44.1 ; Chronic kidney disease, stage 4 (severe) N18.4 ; Pain in right hip M25.551 and Pain in left hip M25.552 [facility] [address], [place] [address] Nov, Chronic kidney disease, stage 4 (severe) N18.4 [facility] [address], [place] [address] 9973 Nov, [facility] [id number] [place] [address] 53426- 9935 Nov, [facility] [address], [place] [address] 5214 October, Chronic obstructive pulmonary disease with (acute) exacerbation J44.1 ; Chronic systolic heart failure I50.22 ; CKD (chronic kidney disease) stage 4, GFR 15-29 ml/min N18.4 and Dependence on supplemental oxygen Z99.81 [facility] [address], [place] [address] 6[address] October, [facility] [address], [place] [address] 2387 October, [facility] [address], [place] [address]- 9227 Sep, Chronic kidney disease, stage 4 (severe) N18.4 and Chronic kidney disease, stage IV (severe) N18.4 [facility] [address], [place] [address]- 2266 Sep, Chronic kidney disease, stage 4 (severe) N18.4 [place] [address], [place] [address]- 8735 17 Sep, 2017 Anxiety F41.9 ; Paroxysmal atrial fibrillation I48.0 ; Chronic kidney disease, stage 4 (severe) N18.4 ; Chronic systolic heart failure I50.22 and Anemia associated with chronic renal failure D63.1 [place] [id number] [place] [address] 79149- 2468 Sep, [place] [id number] [place] [address] 10956- 9491 Aug, [place] [id number] [place] [address] 89240- 2635 Aug, [facility] [address] [facility] [place] [id number] Aug, Acute on chronic combined systolic and diastolic CHF (congestive heart failure) I50.43 ; Essential hypertension I10 ; CKD (chronic kidney disease) stage 4, GFR 15-29 ml/min N18.4 ; Paroxysmal atrial fibrillation I48.0 and Mild depression F32.0 [place] [id number] [place] [address] 84029- 0763 Aug, [place] [id number] [place] [address] 27946- 6946 Aug, [place] [id number] [place] [address] 26579- 3171 Aug, Acute on chronic respiratory failure with hypoxia J96.21 ; Acute kidney failure, unspecified N17.9 ; Chronic kidney disease, stage 4 ( severe) N18.4 ; Acute on chronic combined systolic and diastolic CHF ( congestive heart failure) I50.43 ; Paroxysmal atrial fibrillation I48.0 and Cardiomyopathy, unspecified type I42.9 [place] [id number] [place] [address] 06425- 1897 Aug, [place] [id number] [place] [address] 82022- 7320 Jul, [place] [address] [place] [address]- 5092 09 Jul, 2017 [facility] [id number] [place] [address] 00132- 9170 Jul, [facility] [id number] [place] [address] 06440- 4686 Jul, [facility] [address] 4[address]- 3448 Jul, Community acquired pneumonia of right lower lobe of lung J18.1 ; CKD (chronic kidney disease) stage 4, GFR 15-29 ml/min N18.4 and Shortness of breath R06.02 [facility] [address] [id number] Jul, [place] [id number] [place] [address] 33367- 3635 Jun, Anxiety F41.9 [place] [address] 65091- 6598 Apr, Anxiety F41.9 [place] [address] 38060- 8393 10 Apr, 2017 Cough R05 and Pneumonia of right lower lobe due to infectious organism J18.1 [place] [id number] [place] [address] 75763- 8514 Apr, [facility] [id number] [place] [address] 97426- 3993 Apr, Chronic kidney disease, stage IV (severe) N18.4 and COPD exacerbation J44.1 [place] [id number] [place] [address] 43487- 8421 Feb, Chronic systolic heart failure I50.22 ; Essential hypertension I10 ; Anemia associated with chronic renal failure D63.1 and Chronic kidney disease, stage 4 (severe) N18.4 [facility] [address] 61865- 1780 Feb, Anxiety F41.9 [facility] [address] [place] [address] 86624- 7490 Feb, [facility] [id number] [place] [address] 69160- 7005 Feb, [facility] [id number] [place] [address] 77272- 4325 Jan, Other fatigue R53.83 ; Otalgia of both ears H92.03 and Urinary urgency R39.15 [facility] [id number] [place] [address] 80283- 3885 Jan, Acute non-recurrent maxillary sinusitis J01.00 ; Chronic systolic heart failure I50.22 ; Stage 3 chronic kidney disease N18.3 and Mild depression F32.0 [facility] [id number] [place] [address] 33965- 7320 Sep, [facility] [id number] [place] [address] 44794- 7227 Sep, [facility] [id number] [place] [address] 50886- 7814 Feb, [facility] [id number] [place] [address] 32225- 0428 Feb, [facility] [id number] [place] [address] 15277- 2315 Dec, [facility] [id number] [place] [address] 80122- 9976 Dec, [facility] [id number] [place] [address] 58431- 7626 Nov, [facility] [id number] [place] [address] 57099- 2076 Nov, [facility] [id number] [place] [address] 81967- 1617 Nov, [facility] [address] [place] [address]- 3020 Nov, [facility] [place] [facility] [address] [id number] [place] [address]- 0387 October, [facility] [place] [facility] [address] [id number] [place] [address]- 1628 October, [facility] [place] [facility] [address] [id number] [place] [address]- 6948 Sep, [facility] [place] [facility] [address] [id number] [place] [address]- 7340 Sep, [facility] [place] [facility] [address] [id number] [place] [address]- 1628 Sep, [facility] [place] [facility] [address] [id number] [place] [address]- 4925 Sep, [facility] [place] [facility] [address] [id number] [place] [address]- 9160 Sep, [facility] [place] [facility] [address] [id number] [place] [address]- 5901 Aug, [facility] [place] [facility] [address] [id number] [place] [address]- 7551 Aug, [facility] [place] [facility] [address] [id number] [place] [address]- 2743 Aug, [facility] [place] [facility] [address] [id number] [place] [address]- 3071 Aug, [facility] [place] [facility] [address] [id number] [place] [address]- 8874 Aug, [facility] [place] [facility] [address] [id number] [place] [address]- 9266 Aug, [facility] [place] [facility] [address] [id number] [place]- 7309 Aug, [facility] [place] [facility] [address] [id number] [place] [address]- 1617 Aug, [facility] [place] [facility] [address] [id number] [place] [address]- 9696 Jul, [facility] [place] [facility] [address] [id number] [place] [address]- 1692 Jul, [facility] [place] [facility] [address] [id number] [place] 9537 Jul, [facility] [place] [facility] [address] [id number] [place] [address]- 0116 Jul, [facility] [place] [facility] [address] [id number] [place] [address]- 9831 Jul, [facility] [place] [facility] [address] [id number] [place] [address]- 1734 Jul, [facility] [place] [facility] [address] [id number] [place] [address]- 7315 Jun, [facility] [place] [facility] [address] [id number] [place] [address]- 0002 Jun, [facility] [place] [facility] [address] [id number] [place] [address]- 0923 Jun, [facility] [place] [facility] [address] [id number] [place] [address]- 1247 Jun, [facility] [place] [facility] [address] [id number], [place] [address]- 2345 Jun, [facility] [place] [facility] [address] [id number], [place] [address]- 8857 May, [facility] [place] [facility] [address] [id number] [place] [address]- 6240 May, [facility] [place] [facility] [address] [id number] [place] [address]- 8302 May, [facility] [place] [facility] [address] [id number], [place] [address]- 2600 May, [facility] [place] [facility] [address] [id number], [place] [address]- 8411 May, [facility] [address] [id number] [place] [address]- 1099 Apr, [facility] [address] [facility] [id number], [place] [address]- 3945 Apr, [facility] [address] [place] [address]- 6746 Mar, [facility] [address] [facility] [id number] [place] [address]- 8876 Mar, [facility] [id number] [place] [address], [place] [address]- 6632 Mar, [facility] [address] [facility] [id number] [place] [address]- 8127 Mar, [facility] [address], [place] [address]- 2484 Feb, [facility] [id number] [place] [address]- 7475 Jan, [facility] [id number] [place] [address]- 7287 Jan, [facility] [address] [place] [address]- 3483 Aug, [facility] [id number] [place] [address]- 0505 Jul, [facility] [place] [facility] [address] [facility] [id number], [place] [address]- 6600 Jun, [facility] [place] [facility] [id number] [place] [address]- 1372 May, [facility] [place] [facility] [address] [facility] [id number] [place] [address]- 8341 May, [facility] [id number], [place] [address]- 8424 May, [facility] [place] [facility] [address] [id number] [place] [address]- 6623 May, [facility] [place] [facility] [address] [id number] [place] [address]- 7014 Apr, [facility] [place] [facility] [address] [id number] [place] [address] 2544 Apr, [facility] [place] [facility] [address] [id number] [place] [address]- 8167 Mar, [facility] [place] [facility] [address] [id number] [place] [address]- 6974 Mar, [facility] [place] [facility] [address] [id number] [place] [address]- 7005 Mar, [facility] [place] [facility] [address] [id number] [place] [address]- 6486 Mar, [facility] [place] [facility] [address] [id number] [place] [address]- 5072 Mar, [facility] [place] [facility] [address] [id number] [place] [address]- 7628 Mar, [facility] [place] [facility] [address] [id number] [place] [address]- 2456 Dec, [facility] [place] [facility] [address] [id number] [place] [address]- 1839 Dec, [facility] [place] [facility] [address] [id number] [place] [address]- 2745 Nov, [facility] [place] [facility] [address] [id number] [place] [address] 2541 Nov, [facility] [place] [facility] [address] [id number] [place] [address] 2546 October, [facility] [place] [facility] [address] [id number] [place] [address]- 2546 October, [facility] [place] [facility] [address] [id number] [place] [address]- 8622 Sep, [facility] [address] [facility] [id number] [place] [address]- 5336 Aug, [facility] [address] [facility] [id number] [place] [address]- 6316 Aug, [facility] [address] [facility] [id number] [place] [address]- 0856 Aug, IMMUNIZATIONS No Known Immunizations SOCIAL HISTORY Never Assessed REASON FOR VISIT ED visit/Transfer PLAN OF CARE VITAL SIGNS MEDICATIONS Unknown Medications RESULTS No Results PROCEDURES No Known procedures INSTRUCTIONS MEDICATIONS ADMINISTERED No Known Medications MEDICAL (GENERAL) HISTORY Type Description Date Medical History hyperlipidemia Medical History htn Medical History kidney failure stage 4 - dx in 2012 Medical History hypothyroidisim Medical History neuropathy Medical History COPD - See's Dr Burnette in [facility] Medical History Chronic Heart Failure Surgical History 2 cesareans Surgical History defibrillator - 2012 Hospitalization History pneumonia for a week 2016 Hospitalization History Hospitalized at [facility]- CHF, Chest pain. Dismissed 07/11/17 07/10/2017 Hospitalization History [facility] pneumonia, hypoxia-[facility] 07/30/17 Hospitalization History [facility]- RLL PNA, Respiratory Failure. Transfered to [facility] 10/25/2017 Hospitalization History CHF/COPD 11/2017
--- NOTE | 2018-06-17 14:25 | ED Trauma-Multisystem ---
General Chief Complaint: Trauma-Non Activation Stated Complaint: FALL;HEAD INJ Nursing Triage Note: PATIENT HERE AFTER A FALL AT HOME TODAY. SHE WAS STANDING IN HER KITCHEN WHEN HER LEGS "GAVE WAY." SHE FELL AND HIT HER HEAD ON THE FLOOR. SHE IS CURRENTLY ON HEPARIN. Source of Information: Patient Exam Limitations: No Limitations History of Present Illness Date Seen by Provider: Jun 17, 2018 Time Seen by Provider: 14:00 Initial Comments Patient is a 57-year-old female who presents to the emergency room with complaints of a fall after her left knee gave way. She fell and hit her head on the floor. She also complains of bilateral hip pain. She is a dialysis patient and is currently on heparin. He denies loss of consciousness, neck pain, dizziness, shortness of breath, palpitations. She has most is to the right side of her forehead and to her coccyx area. Occurred: Just Prior to Arrival (1205) Loss of Consciousness: No Loss of Consciousness Associated Symptoms (Fall): Denies Symptoms Allergies and Home Medications Allergies Coded Allergies: propoxyphene napsylate (Unverified Allergy, Severe, SEVERE NAUSEA AND VOMITING , 04/03/13) meperidine (Unverified Allergy, Unknown, 12/19/14) venom-honey bee (Verified Allergy, Unknown, 09/19/13) lisinopril (Verified Adverse Reaction, Unknown, PT STATES "BOTTOMS OUT" HER BLOOD PRESSURE, 03/12/15) Patient states that it "bottoms out" her blood pressure. She will refuse to take this medication and reports it as an allergy. Home Medications Acetaminophen 500 Mg Tablet, 1,000 MG PO Q6H PRN for PAIN-MILD, (Reported) Amiodarone HCl 200 Mg Tablet, 200 MG PO DAILY, (Reported) Calcium Carbonate 300 Mg Tab.chew, 300 MG PO QID PRN for INDIGESTION, (Reported) Carvedilol 12.5 Mg Tablet, 12.5 MG PO BID, (Reported) Ferrous Sulfate 325 Mg Tablet, 325 MG PO DAILY, (Reported) Furosemide 10 Mg/1 Ml Vial, 100 MG IVP BID@0500,1700 Prescribed by: SAM GIBBS on 12/26/17 1047 Ipratropium/Albuterol Sulfate 3 Ml Ampul.neb, 3 ML NEB TID, (Reported) Ipratropium/Albuterol Sulfate 3 Ml Ampul.neb, 3 ML IH Q4H PRN for SHORTNESS OF BREATH, (Reported) Isosorbide Mononitrate 30 Mg Tab.er.24h, 15 MG PO BID, (Reported) TAKES 1/2 (30MG) TABLET Levothyroxine Sodium 25 Mcg Tablet, 25 MCG PO DAILY, (Reported) Loperamide HCl 2 Mg Capsule, 2 MG PO UD PRN for DIARRHEA, (Reported) Lorazepam 0.5 Mg Tablet, 0.5 MG PO HS, (Reported) Magnesium Oxide 400 Mg Tablet, 400 MG PO DAILY, (Reported) Multivitamins-Min/FA/Ginkgo 1 Each Tablet, 1 TAB PO DAILY, (Reported) Omeprazole 40 Mg Capsule.dr, 40 MG PO DAILY, (Reported) Ondansetron 4 Mg Tab.rapdis, 4 MG SL Q6H PRN for NAUSEA/VOMITING-1ST LINE, ( Reported) Oxycodone HCl 5 Mg Tablet, 5 MG PO Q4H PRN for PAIN-SEVERE, (Reported) Sertraline HCl 100 Mg Tablet, 150 MG PO HS, (Reported) TAKES 1 & 1/2 OF A (100 MG) TABLET Patient Home Medication List Home Medication List Reviewed: Yes Review of Systems Review of Systems Constitutional: no symptoms reported, see HPI Musculoskeletal: see HPI, joint pain (bilateral hip pain) Psychiatric/Neurological: See HPI, Headache All Other Systems Reviewed Negative Unless Noted: Yes Past Ekpbrqd-Jxcqqp-Rvgpuc Hx Past Med/Social Hx: Reviewed Nursing Past Med/Soc Hx Patient Social History Alcohol Use: Denies Use Recreational Drug Use: No Drug of Choice: THC USE IN PAST Smoking Status: Never a Smoker Type Used: Cigarettes Former Smoker, Quit: Jul 09, 2017 2nd Hand Smoke Exposure: No Recent Foreign Travel: No Contact w/Someone Who Travel: No Recent Infectious Disease Expo: No Recent Hopitalizations: No Immunizations Up To Date Tetanus Booster (TDap): Unknown PED Vaccines UTD: No Date of Pneumonia Vaccine: Mar 30, 2013 Date of Influenza Vaccine: Jul 11, 2017 Seasonal Allergies Seasonal Allergies: Yes Past Medical History Surgeries: Yes Cardiac, Section, Defibrillator, Dialysis, Hysterectomy, Vascular Surgery Respiratory: Yes Asthma, Pneumonia, COPD Currently Using CPAP: No Currently Using BIPAP: No Cardiac: Yes (CHF EF 20% non ischemic, left atrial thrombus; CHF/ PULMONARY EDEMA) Atrial Fibrillation, Cardiomyopathy, Chronic Edema/Swelling, Coronary Artery Disease, High Cholesterol, Hypertension Neurological: Yes Headaches /Migraines 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 Disorders: Yes (Hysterectomy) 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 Disorders: Denies 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, 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 Sexually Transmitted Disease: No HIV/AIDS: No Genitourinary: Yes Renal Failure, Dialysis, UTI-Chronic Gastrointestinal: Yes (history of elevated transaminases, HX of elevated liver enzymes) Gastroesophageal Reflux, Hiatal Hernia Musculoskeletal: Yes Arthritis Endocrine: Yes Hypothyroidsim HEENT: Yes Cataract Loss of Vision: Denies Hearing Impairment: Denies Cancer: Yes Bladder Psychosocial: Yes Sleep Difficulties, Anxiety, Depression Integumentary: No Blood Disorders: Yes (ANEMIA) Adverse Reaction/Blood Tranf: No Family Medical History Reviewed Nursing Family Hx Cancer 19 FATHER (HODGKINS ) 19 MOTHER (BRAIN TUMOR ) Congenital heart disease 19 MOTHER Congestive heart failure 19 MOTHER Family history: Cardiovascular disease 19 MOTHER G8 SISTER G8 SISTER Family history: Hypertension 19 MOTHER G8 SISTER G8 SISTER Heart disease 19 MOTHER G8 SISTER G8 SISTER History of - respiratory disease 19 MOTHER G8 BROTHER G8 SISTER Heart Disease, Cancer, Hypertension Physical Exam Vital Signs Vital Signs - First Documented 06/17/18 13:45 Temp 98.1 Pulse 74 Resp 20 B/P (MAP) 120/64 (82) Pulse Ox 96 O2 Delivery Nasal Cannula O2 Flow Rate 3.00 Height, Weight, BMI Height: 4'9.00" Weight: 145lbs. 0oz. 65.780798wr; 34.6 BMI Method:Stated General Appearance: No Apparent Distress, WD/WN Head: Other (ecchymosis to the right side of her forehead.); No Active Bleeding , No Niño's Sign Eyes: Bilateral Eye Normal Inspection, Bilateral Eye PERRL, Bilateral Eye EOMI Ears, Nose, Throat: Hearing Grossly Normal, No Evidence of ENT Injury, No Dental Injury Neck: Full Range of Motion, Normal Inspection, Non Tender, Supple Cardiovascular: Regular Rate, Rhythm, No Edema, No Gallop, No JVD, No Murmur, Normal Peripheral Pulses Respiratory: Chest Non Tender, Lungs Clear, Normal Breath Sounds, No Accessory Muscle Use, No Respiratory Distress Gastrointestinal: Normal Bowel Sounds, No Organomegaly, No Pulsatile Mass, Non Tender, Soft Extremity: Normal Capillary Refill, Normal Inspection, Normal Range of Motion, Non Tender, No Calf Tenderness, No Pedal Edema, Other (bilateral hip and pelvis pain.) Neurologic/Psychiatric: Alert, Oriented x3, Normal Mood/Affect Skin: Normal Color, Warm/Dry, Other (ecchymosis to her coccyx area) Stitzer Coma Score Best Eye Response (Charley): (4) Open Spontaneously Best Verbal Response (Stitzer): (5) Oriented Best Motor Response (Stitzer): (6) Obeys Commands Charley Total: 15 Procedures/Interventions Date of ETT Placement: Aug 20, 2017 Time of ETT Placement: 628 Progress/Results/Core Measures Results/Orders My Orders Orders - ZENAIDA CHUNG Ct Head/Cervical Spine Wo (06/17/18 13:58) Pelvis/Roberta Hips 5> Views (06/17/18 13:58) Vital Signs/I&O 06/17/18 13:45 Temp 98.1 Pulse 74 Resp 20 B/P (MAP) 120/64 (82) Pulse Ox 96 O2 Delivery Nasal Cannula O2 Flow Rate 3.00 Blood Pressure Mean: 82 Diagnostic Imaging Diagonstic Imaging: Xray Plain Films/CT/US/NM/MRI: c-spine, pelvis, hip, head Comments [facility] [place] [place] NAME: WYATT KULKARNI [facility] REC#: [id number] PT STATUS: REG ER : 1960 PHYSICIAN: ZENAIDA CHUNG ADMIT DATE: 06/17/18/ER Draft Date of Exam:06/17/18 PELVIS/ROBERTA HIPS 5> VIEWS PATIENT HISTORY: Fall, hip pain. TECHNIQUE: Frontal view of the pelvis. Frontal and lateral views of the bilateral hips. COMPARISON: None. FINDINGS: No acute fracture is seen in the pelvis or bilateral hips. Alignment appears normal. The femoral heads are well seated in the acetabula bilaterally. Cortical irregularity at the lateral aspect of the head and neck junction bilaterally is thought be due to collar osteophytes about the femoral necks. There are moderate degenerative changes in the left hip joint and mild in the right hip joint. Degenerative changes are noted in the lower lumbar spine. IMPRESSION: 1. Degenerative changes in the bilateral hips, left more than right, with no acute osseous abnormality seen. If there is persistent clinical concern for occult fracture, consider cross-sectional imaging. Dictated on workstation # [id number] Dict: 06/17/18 1438 Trans: 06/17/18 1443 [id number] Interpreted by: MING SMITH MD Electronically signed by: Reviewed: Reviewed by Me Departure Impression Primary Impression: Minor head injury Additional Impression: Fall on same level Disposition: 01 HOME, SELF-CARE Condition: Stable/Unchanged Departure-Patient Inst. Decision time for Depature: 15:09 Referrals: TEAGAN VERNON MD (PCP/Family) Primary Care Physician Patient Instructions: Minor Head Injury (DC) Add. Discharge Instructions: Resume your home medications as prescribed. Follow-up with Dr. Vernon within 1 week for recheck. Return back to the emergency room for any change in level of consciousness, increased pain, headaches, worsening symptoms or concerns as needed. All discharge instructions reviewed with patient and/or family. Voiced understanding. ZENAIDA CHUNG Jun 17, 2018 14:25
--- NOTE | 2018-06-17 14:43 | Diagnostic Imaging Report ---
PATIENT HISTORY: Fall, hip pain. TECHNIQUE: Frontal view of the pelvis. Frontal and lateral views of the bilateral hips. COMPARISON: None. FINDINGS: No acute fracture is seen in the pelvis or bilateral hips. Alignment appears normal. The femoral heads are well seated in the acetabula bilaterally. Cortical irregularity at the lateral aspect of the head and neck junction bilaterally is thought be due to collar osteophytes about the femoral necks. There are moderate degenerative changes in the left hip joint and mild in the right hip joint. Degenerative changes are noted in the lower lumbar spine. IMPRESSION: 1. Degenerative changes in the bilateral hips, left more than right, with no acute osseous abnormality seen. If there is persistent clinical concern for occult fracture, consider cross-sectional imaging. Dictated by: Dictated on workstation # [id number]
--- NOTE | 2018-06-17 14:59 | Diagnostic Imaging Report ---
PROCEDURE: CT head and CT cervical spine without contrast. TECHNIQUE: Multiple contiguous axial images were obtained through the brain and cervical spine without the use of intravenous contrast. Sagittal and coronal reformations through the cervical spine were then performed. INDICATION: Fall. Head injury. COMPARISON: MR brain dated 11/07/2011. FINDINGS: CT HEAD: There is a chronic appearing defect of the posterior left calvarium. Note is also made of chronic appearing encephalomalacia of the underlying left parietal lobe. Findings are likely on the basis of previous traumatic injury. There is no other abnormal loss of masters-white matter junction differentiation to suggest acute territorial infarct. There is no evidence of intra- or extra-axial intracranial hemorrhage. There is no mass effect or midline shift. Ventricles and cortical sulci are otherwise normal in size and contour. Remainder of the bony calvarium is intact. Paranasal sinuses show mucus retention cyst versus polyp in the left maxillary sinus. Mastoid air cells are clear. CT CERVICAL SPINE: Evaluation of the static alignment demonstrates straightening with mild reversal of normal lordotic curvature epicentered at the C4-C5 level. There is no significant trip- or retro-listhesis. There is no evidence of jumped facets. Vertebral body heights are maintained. There is mild image degradation secondary to motion artifact, but there is no evidence of acute fracture. No bony fragments are seen within the spinal canal. There are moderate multilevel degenerative changes consistent with intervertebral disc height loss with anterior and posterior disc osteophyte complex formations. These changes appear greatest at the C4-C5 level where there is likely significant osseous spinal canal stenosis. There also appears to be significant bilateral neural foraminal stenosis at this level as well. Pre- and para-vertebral soft tissue structures are unremarkable. Note is made of calcified carotid atherosclerosis. Included portions of the lung apices are unremarkable. IMPRESSION: 1. Chronic appearing calvarial defect posterolaterally on the left with chronic appearing underlying encephalomalacia of the posterior left cerebral hemisphere. Correlation with previous traumatic injury to this area is recommended. 2. No CT evidence of acute intracranial abnormality. No acute infarct, hemorrhage, nor mass. 3. No CT evidence of acute fracture or dislocation of the cervical spine. 4. Multilevel degenerative changes of the cervical spine, greatest at the C4-C5 level where there is likely significant osseous spinal canal and bilateral neural foraminal stenosis. Dictated by: Dictated on workstation # [id number]
[2018-06-17 15:23] VITALS: BP 126/71
== END 2018-06-17 15:23 | disposition home or self-care (01) ==
LOC: EDUNIT# 13:35 → ER 13:36
DX: S09.90XA Unspecified injury of head, initial encounter (principal); J44.9 Chronic obstructive pulmonary disease, unspecified; I11.0 Hypertensive heart disease with heart failure; I50.9 Heart failure, unspecified; I48.91 Unspecified atrial fibrillation; I25.10 Atherosclerotic heart disease of native coronary artery without angina pectoris; E78.00 Pure hypercholesterolemia, unspecified; G43.909 Migraine, unspecified, not intractable, without status migrainosus; K21.9 Gastro-esophageal reflux disease without esophagitis; E03.9 Hypothyroidism, unspecified; F41.9 Anxiety disorder, unspecified; F32.9 Major depressive disorder, single episode, unspecified; Z85.51 Personal history of malignant neoplasm of bladder; Z87.440 Personal history of urinary (tract) infections; Z87.01 Personal history of pneumonia (recurrent); Z90.710 Acquired absence of both cervix and uterus; Z99.2 Dependence on renal dialysis; Z88.8 Allergy status to other drugs, medicaments and biological substances; Z88.5 Allergy status to narcotic agent; Z95.810 Presence of automatic (implantable) cardiac defibrillator; W01.198A Fall on same level from slipping, tripping and stumbling with subsequent striking against other object, initial encounter; Y92.000 Kitchen of unspecified non-institutional (private) residence as the place of occurrence of the external cause
CPT/HCPCS: 70450; 72125; 73523

== ENCOUNTER 2018-07-13 09:17 | Emergency (ER) | payer MEDICAID, MEDICARE ==
[~2018-07-13] VITALS: Ht 165.1 cm; Wt 72.6 kg
--- OUTSIDE RECORDS SUMMARY | 2018-07-13 09:23 | XMS REPORT ---
Author Author LEE SILVA Organization [facility] Address [address] [place] [address] Care Team Providers Care Dock Operator Name Role Phone ELE SILVA Unavailable PROBLEMS Type Condition ICD9-CM Code HRT79-GS Code Onset Dates Condition Status SNOMED Code Problem Cardiomyopathy I42.9 Active 67572776 Problem Acute on chronic systolic CHF (congestive heart failure) I50.23 Active 302133981 Problem Chronic obstructive pulmonary disease, unspecified J44.9 Active 06322150 Problem Gastroesophageal reflux disease without esophagitis K21.9 Active 407449914 Problem Chronic kidney disease, stage IV (severe) N18.4 Active 252961708 Problem Acquired hypothyroidism E03.9 Active 587023846 Problem Supplemental oxygen dependent Z99.81 Active 785346512682 Problem COPD with acute lower respiratory infection J44.0 Active 567129817 Problem Slow transit constipation K59.01 Active 02504318 Problem Essential hypertension I10 Active 60116875 Problem Chronic systolic heart failure I50.22 Active 959379356 Problem Anxiety F41.9 Active 06335746 Problem Paroxysmal atrial fibrillation I48.0 Active 927774714 Problem Mild depression F32.0 Active 872897350 Problem Chronic obstructive pulmonary disease with (acute) exacerbation J44.1 Active 512099341 Problem Anemia associated with chronic renal failure D63.1 Active 930263796 Problem Psychophysiological insomnia F51.04 Active 914952262 ALLERGIES No Information ENCOUNTERS Encounter Location Date Diagnosis [facility] [id number], [place] [address] Jun, [facility] [address], [place] [address] May, [facility] [id number], [place] [address] 8290 May, [facility] [address], [place] [address] May, [facility] [id number] [place] [address] 63880- 4210 May, [facility] [address], [place] [address] May, [place] [id number] [place] [address] 41621- 7033 Apr, [facility] [address] [place] [id number] Apr, Mild depression F32.0 ; Essential hypertension I10 ; Chronic systolic heart failure I50.22 ; Chronic obstructive pulmonary disease with (acute) exacerbation J44.1 ; Paroxysmal atrial fibrillation I48.0 ; Chronic kidney disease, stage IV (severe) N18.4 ; Acquired hypothyroidism E03.9 ; Clotted dialysis access, sequela T82.49XS ; Psychophysiological insomnia F51.04 and Gastroesophageal reflux disease without esophagitis K21.9 [place] [address], [place] [address] Apr, Psychophysiological insomnia F51.04 [place] [id number], [place] [address] 14 Apr, 2018 [address] [address], [place] [address] 4[address] Apr, [place] [address], [place] [address] Mar, [facility] [place] [address] [place] [id number] Mar, Acute respiratory failure with hypoxia J96.01 ; Acute pancreatitis, unspecified complication status, unspecified pancreatitis type K85.90 ; Chronic kidney disease, stage IV (severe) N18.4 ; Rash R21 and Gastroesophageal reflux disease without esophagitis K21.9 [place] [address], [place] [address] Mar, Psychophysiological insomnia F51.04 [place] [address], [place] [address] 30[address] Mar, [facility] [place] [address] [place] [id number] Feb, Vertigo R42 and Chronic kidney disease, stage IV (severe) N18.4 [place] [address], [place] [address] Feb, [facility] [place] [address] [place] [id number] Feb, Cellulitis of breast N61.0 [place] [address], [place] [address] 59[address] 18 Feb, 2018 [place] [id number] [place] [address] 73563- 4376 Feb, [place] [id number] [place] [address] 37846- 9199 12 Feb, 2018 Psychophysiological insomnia F51.04 [facility] [place] [address] [place] [id number] Feb, Urinary tract infection without hematuria, site unspecified N39.0 ; Chronic kidney disease, stage IV (severe) N18.4 and Chronic systolic heart failure I50.22 [address] [address], [place] [address] 5[address] 10 Feb, 2018 [facility] [place] [address] [place] [id number] 04 Feb, 2018 Chronic kidney disease, stage IV (severe) N18.4 ; Chronic systolic heart failure I50.22 ; COPD with acute lower respiratory infection J44.0 ; Vertigo R42 ; Slow transit constipation K59.01 ; Hemorrhoids, unspecified hemorrhoid type K64.9 ; Acquired hypothyroidism E03.9 ; Candidiasis of breast B37.89 and Difficulty in urination R39.198 [address] [address], [place] [address] Jan, Acute on chronic systolic CHF (congestive heart failure) I50.23 ; Acute kidney failure, unspecified N17.9 ; Chronic kidney disease, stage III (moderate) N18.3 and Supplemental oxygen dependent Z99.81 [facility] [id number] [place] [address] 70141- 0979 Jan, Acute on chronic combined systolic and diastolic CHF ( congestive heart failure) I50.43 [facility] [id number] [place] [address] 40708- 6616 Jan, [facility] [id number] [place] [address] 94093 -7726 Jan, Irritant contact dermatitis due to cosmetics L24.3 ; Effusion of right wrist M25.431 and Pain in right wrist M25.531 [place] [id number] [place] [address] 05755- 1567 Dec, Chronic systolic heart failure I50.22 ; Chronic obstructive pulmonary disease with (acute) exacerbation J44.1 ; CKD (chronic kidney disease ) stage 4, GFR 15-29 ml/min N18.4 ; Cardiomyopathy I42.9 ; Dependence on supplemental oxygen Z99.81 and Psychophysiological insomnia F51.04 [place] [id number] [place] [address] 79365- 4419 Dec, Anxiety F41.9 [place] [id number] [place] [address] 59962- 4140 Dec, [place] [id number] [place] [address] 60592- 6862 Dec, [place] [id number] [place] [address] 06059- 8230 Dec, [facility] [address] [place] [id number] Dec, Encounter [place] [facility] Z02.2 ; Chronic obstructive pulmonary disease, unspecified J44.9 ; Paroxysmal atrial fibrillation I48.0 ; CKD (chronic kidney disease) stage 4, GFR 15-29 ml/min N18.4 and Cardiomyopathy I42.9 [place] [id number] [place] [address] 25334- 7750 Dec, [place] [address], [place] [address] 8[address] 28 Nov, 2017 Acute on chronic combined systolic and diastolic CHF ( congestive heart failure) I50.43 [facility] [address] [place] [address] 72700- 9185 Nov, [facility] [address], [place] [address] 8142 Nov, [facility] [id number] [place] [address] 20213- 2846 Nov, Chronic systolic heart failure I50.22 ; Paroxysmal atrial fibrillation I48.0 ; Chronic obstructive pulmonary disease with (acute) exacerbation J44.1 ; Chronic kidney disease, stage 4 (severe) N18.4 ; Pain in right hip M25.551 and Pain in left hip M25.552 [facility] [address] [place] [address] 66610- 5564 Nov, Chronic kidney disease, stage 4 (severe) N18.4 [facility] [address], [place] [address] 8849 Nov, [facility] [id number] [place] [address] 59137- 6369 Nov, [facility] [address], [place] [address] 5[address] October, Chronic obstructive pulmonary disease with (acute) exacerbation J44.1 ; Chronic systolic heart failure I50.22 ; CKD (chronic kidney disease) stage 4, GFR 15-29 ml/min N18.4 and Dependence on supplemental oxygen Z99.81 [facility] [address], [place] [address] 8294 October, [facility] [id number] [place] [address] 13667- 2266 October, [facility] [address], [place] [address]- 1319 Sep, Chronic kidney disease, stage 4 (severe) N18.4 and Chronic kidney disease, stage IV (severe) N18.4 [address] [id number] [place] [address] 09510- 6434 Sep, Chronic kidney disease, stage 4 (severe) N18.4 [place] [id number] [place] [address] 14165- 6799 Sep, Anxiety F41.9 ; Paroxysmal atrial fibrillation I48.0 ; Chronic kidney disease, stage 4 (severe) N18.4 ; Chronic systolic heart failure I50.22 and Anemia associated with chronic renal failure D63.1 [place] [id number] [place] [address] 75021- 0661 Sep, [place] [id number] [place] [address] 97035- 3307 Aug, [id number] [place] [address] 44895- 7667 Aug, [facility] [address] [place] [id number] Aug, Acute on chronic combined systolic and diastolic CHF (congestive heart failure) I50.43 ; Essential hypertension I10 ; CKD (chronic kidney disease) stage 4, GFR 15-29 ml/min N18.4 ; Paroxysmal atrial fibrillation I48.0 and Mild depression F32.0 [address] [id number] [place] [address] 42767- 5790 Aug, [place] [id number] [place] [address] 70174- 9542 Aug, [place] [id number] [place] [address] 03796- 5777 Aug, Acute on chronic respiratory failure with hypoxia J96.21 ; Acute kidney failure, unspecified N17.9 ; Chronic kidney disease, stage 4 ( severe) N18.4 ; Acute on chronic combined systolic and diastolic CHF ( congestive heart failure) I50.43 ; Paroxysmal atrial fibrillation I48.0 and Cardiomyopathy, unspecified type I42.9 [address], [place] [address]- 0438 Aug, [facility] [id number] [place] [address] 47659- 7109 14 Jul, 2017 [facility] [id number] [place] [address] 45704- 9038 Jul, [facility] [id number] [place] [address] 81836- 8612 Jul, [facility] [id number] [place] [address] 91053- 9323 Jul, [facility] [id number] [place] [address] 02723- 5573 Jul, Community acquired pneumonia of right lower lobe of lung J18.1 ; CKD (chronic kidney disease) stage 4, GFR 15-29 ml/min N18.4 and Shortness of breath R06.02 [facility] [id number] [place] [address] [id number] Jul, [facility] [id number] [place] [address] 06576- 2397 Jun, Anxiety F41.9 [facility] [id number] [place] [address] 88333- 8463 Apr, Anxiety F41.9 [facility] [id number] [place] [address] 24041- 2055 10 Apr, 2017 Cough R05 and Pneumonia of right lower lobe due to infectious organism J18.1 [facility] [address], [place] [address]- 7602 Apr, [facility] [id number] [place] [address] 36153- 2770 06 Apr, 2017 Chronic kidney disease, stage IV (severe) N18.4 and COPD exacerbation J44.1 [facility] [id number] [place] [address] 62424- 3716 Feb, Chronic systolic heart failure I50.22 ; Essential hypertension I10 ; Anemia associated with chronic renal failure D63.1 and Chronic kidney disease, stage 4 (severe) N18.4 [facility] [id number] [place] [address] 43964- 9904 Feb, Anxiety F41.9 [facility] [id number] [place] [address] 78441- 3803 Feb, [facility] [id number] [place] [address] 02557- 4382 Feb, [facility] [id number] [place] [address] 92552- 5653 Jan, Other fatigue R53.83 ; Otalgia of both ears H92.03 and Urinary urgency R39.15 [place] [id number] [place] [address] 13526- 8096 Jan, Acute non-recurrent maxillary sinusitis J01.00 ; Chronic systolic heart failure I50.22 ; Stage 3 chronic kidney disease N18.3 and Mild depression F32.0 [facility] [id number] [place] [address] 70591- 6065 Sep, [facility] [id number] [place] [address] 77421- 1583 Sep, [facility] [address], [place] [address]- 7332 Feb, [facility] [id number] [place] [address] 21661- 2260 Feb, [facility] [id number] [place] [address] 28914- 5559 Dec, [facility] [id number] [place] [address] 25358- 0216 Dec, [facility] [id number] [place] [address] 50107- 8406 Nov, [facility] [id number] [address]- 9445 Nov, [facility] [address] [id number] [place] [address]- 2052 Nov, [facility] [place] [facility] [address] [id number] [place] [address] Nov, [facility] [address] [id number] [place] [address]- 4679 October, [facility] [place] [facility] [address] [id number] [place] [address]- 6405 October, [facility] [address] [id number] [place] [address]- 7883 Sep, [facility] [place] [facility] [address] [id number] [place] [address]- 7925 Sep, [facility] [address] [id number] [place] [address]- 8786 Sep, [facility] [address] [id number] [place] [address]- 7899 Sep, [facility] [place] [facility] [address] [id number] [place] [address]- 4994 Sep, [facility] [address] [id number] [place] [address]- 2279 Aug, [facility] [place] [facility] [address] [id number] [place] [address]- 0232 31 Aug, 2013 [facility] [place] [facility] [address] [id number] [place] [address]- 7500 27 Aug, 2013 [facility] [place] [facility] [address] [id number] [place] [address]- 3194 Aug, [facility] [place] [facility] [address] [id number] [place] [address]- 3164 Aug, [facility] [place] [facility] [address] [id number] [place] [address]- 7289 Aug, [facility] [place] [facility] [address] [id number] [place] [address]- 1374 Aug, [facility] [place] [facility] [address] [id number] [place] [address]- 6386 Aug, [facility] [place] [facility] [address] [id number] [place] [address]- 6682 Jul, [facility] [place] [facility] [address] [id number] [place] [address]- 6833 Jul, [facility] [place] [facility] [address] [id number] [place] [address]- 9811 Jul, [facility] [place] [facility] [address] [id number] [place] [address]- 7640 Jul, [facility] [place] [facility] [address] [id number] [place] [address]- 2054 Jul, [facility] [place] [facility] [address] [id number] [place] [address]- 4702 Jul, [facility] [place] [facility] [address] [id number] [place] [address]- 9237 Jun, [facility] [place] [facility] [address] [id number] [place] [address]- 1160 Jun, [facility] [place] [facility] [address] [id number] [address]- 6940 Jun, [facility] [place] [facility] [address] [id number], [place] [address]- 9362 Jun, [facility] [place] [facility] [address] [id number] [place] [address]- 5813 Jun, [facility] [place] [facility] [address] [id number] [place] [address]- 3002 May, [facility] [place] [facility] [address] [id number] [place] [address]- 3574 May, [facility] [place] [facility] [address] [id number] [place] [address] 2546 May, [facility] [address] [id number] [place] [address]- 3024 May, [facility] [place] [facility] [address] [id number] [place] [address]- 6028 May, [facility] [address] [id number] [place] [address]- 9565 Apr, [facility] [place] [facility] [address] [id number] [place] [address]- 9180 Apr, [facility] [place] [facility] [address] [id number] [place] [address]- 3101 Mar, [facility] [place] [facility] [address] [id number] [place] [address]- 2546 Mar, [facility] [address] [id number] [place] [address] 254 Mar, [facility] [place] [facility] [address] [id number] [place] [address] 2541 Mar, [facility] [place] [facility] [address] [id number] [place] [address]- 6917 Feb, [facility] [place] [facility] [address] [facility] [id number] [place] [address]- 0001 Jan, [facility] [place] [facility] [address] [id number] [place] [address] 2546 Jan, [facility] [place] [facility] [address] [id number] [place] [address]- 2546 Aug, [facility] [place] [facility] [address] [id number] [place] [address] 2546 Jul, [facility] [place] [facility] [address] [id number] [place] [address]- 2546 Jun, [facility] [place] [facility] [address] [id number] [place] [address] 2549 May, [facility] [place] [facility] [address] [id number] [place] [address]- 8876 May, [facility] [place] [facility] [address] [id number] [place] [address]- 1606 May, [facility] [place] [facility] [address] [id number] [place] [address]- 3814 May, [facility] [place] [facility] [address] [id number] [place] [address]- 9983 Apr, [facility] [place] [facility] [address] [id number] [place] [address]- 3439 Apr, [facility] [place] [facility] [address] [id number] [place] [address]- 9709 Mar, [facility] [place] [facility] [address] [id number] [place] 6377 Mar, [facility] [place] [facility] [address] [id number] [place] [address]- 3250 Mar, [facility] [place] [facility] [address] [id number] [place] [address]- 0451 Mar, [facility] [place] [facility] [address] [id number] [place] [address]- 6063 Mar, [facility] [place] [facility] [address] [id number] [place] [address]- 4091 Mar, [facility] [place] [facility] [address] [id number], [place] [address]- 5537 Dec, [facility] [place] [facility] [address] [id number] [place] [address]- 0994 Dec, [facility] [place] [facility] [address] [id number] [place] [address]- 9631 Nov, [facility] [place] [facility] [address] [id number] [place] [address] 2548 Nov, [facility] [place] [facility] [address] [id number] [place] [address]- 2546 October, [facility] [address] [facility] [id number], [place] [address]- 2546 October, [facility] [address] [facility] [id number], [place] [address]- 2546 Sep, [facility] [address] [facility] [id number], [place] [address]- 2546 Aug, [facility] [address] [facility] [id number], [place] [address]- 2546 Aug, [facility] [address] [facility] [id number], [place] [address]- 2546 Aug, IMMUNIZATIONS No Known Immunizations SOCIAL HISTORY Never Assessed REASON FOR VISIT Discuss NH dismissal PLAN OF CARE Activity Details Follow Up prn Reason: VITAL SIGNS MEDICATIONS Medication Instructions Dosage Frequency Start Date End Date Duration Status Montelukast Sodium 10 MG Orally Once a day 1 tablet in the evening 24h Not-Taking Loperamide A-D 2 MG Orally Four times a day 1 tablet as needed 6h Not-Taking Spiriva HandiHaler 18 MCG Inhalation Once a day 1 capsule 24h Not- Taking Albuterol Sulfate (2.5 MG/3ML) 0.083% Inhalation every 6 hrs 3 ml every 4-6 hours as needed 6h Apr, 12 months Not-Taking Furosemide 40 mg Orally Once a day 1 tablet 24h 17 Feb, 2014 Active D3-1000 1000 UNIT Orally Once a day 1 capsule 24h Not-Taking Loratadine 10 MG Orally Once a day 1 tablet 24h Not-Taking Carvedilol 6.25 MG Orally 2 times a day 1 capsule 12h Active 28-0.8 MG Not-Taking Ferrous Sulfate 325 (65 Fe) MG Orally twice a day 1 tablet 12h Not -Taking Gabapentin 300 MG Orally Once a day 1 capsule 24h Not-Taking Breo Ellipta 200-25 MCG/INH Inhalation Once a day 1 puff 24h Not- Taking HydrALAZINE HCl 25 MG Orally 2 times a day 1 tablet with food 12h Active Sertraline HCl 150 MG Orally Once a day 1 tablet 24h 90 days Active Amiodarone HCl 200 mg Orally Once a day 1 tablet 24h 90 days Active Melatonin 3 MG Orally Once a day 1 tablet an hour before bedtime for sleep 24h Feb, 30 day(s) Not-Taking Levothyroxine Sodium 100 MCG Orally Once a day 1 tablet on an empty stomach in the morning 24h Not-Taking Multivitamin Women - Active Plus Iron 29-1 MG Orally Once a day 1 tablet 24h Not- Taking Lorazepam 0.5 MG Orally everyday at bedtime 1 tablet Aug, Active Omeprazole 40 MG Orally Once a day 1 capsule 24h Jul, 30 day(s ) Not-Taking Trazodone HCl 150 MG 1.5 tablets at night as needed for sleep Orally 30 days 30 Not-Taking Magnesium Oxide 1 Tablet by Oral route 1 time per day Apr, Active PrednisoLONE 5 MG Orally Once a day 1 tablet with food or milk in the morning 24h Active Ventolin HFA 108 (90 Base) MCG/ACT Inhalation every 4 hrs 2 puffs as needed 4h Not-Taking HydrOXYzine HCl 10 MG Orally Three times a day 1 tablet 8h 30 days Not-Taking Tylenol Extra Strength 500 MG Orally every 6 hrs 2 tablets as needed 6h Active Incruse Ellipta 62.5 MCG/INH Inhalation Once a day 1 puff 24h Not- Taking Atorvastatin Calcium 20 MG Orally Once a day 1 tablet 24h Not- Taking ProAir HFA 108 (90 Base) MCG/ACT Inhalation every 6 hrs 2 puffs as needed 6h Active Isosorbide Mononitrate ER 30 MG Orally Once a day 2 tablets 24h 90 days Active RESULTS No Results PROCEDURES Procedure Date Ordered Result Body Site [facility] VISIT ESTABLISHED PATIENT September 23, 2017 INSTRUCTIONS MEDICATIONS ADMINISTERED No Known Medications MEDICAL (GENERAL) HISTORY Type Description Date Medical History hyperlipidemia Medical History htn Medical History kidney failure stage 4 - dx in 2012 Medical History hypothyroidisim Medical History neuropathy Medical History COPD - See's Dr Burnette in [facility] Medical History Chronic Heart Failure Surgical History 2 cesareans Surgical History defibrillator - 2012 Hospitalization History pneumonia for a week 2017 Hospitalization History Hospitalized at [facility]- CHF, Chest pain. Dismissed 07/11/17 07/10/2017 Hospitalization History [facility] pneumonia, hypoxia-[facility] 07/30/17 Hospitalization History [facility]- [facility] PNA, Respiratory Failure. Transfered to [place] 10/25/2017 Hospitalization History CHF/COPD 11/2017
--- OUTSIDE RECORDS SUMMARY | 2018-07-13 09:23 | XMS REPORT ---
Author Author TEAGAN VERNON Organization [facility] Address [address] [place] [address] Care Team Providers Care Topstitcher Zigzag Name Role Phone TEAGAN VERNON Unavailable PROBLEMS Type Condition ICD9-CM Code KRM97-LY Code Onset Dates Condition Status SNOMED Code Problem Cardiomyopathy I42.9 Active 56099452 Problem Acute on chronic systolic CHF (congestive heart failure) I50.23 Active 871743731 Problem Chronic obstructive pulmonary disease, unspecified J44.9 Active 40061619 Problem Gastroesophageal reflux disease without esophagitis K21.9 Active 903545174 Problem Chronic kidney disease, stage IV (severe) N18.4 Active 178124783 Problem Acquired hypothyroidism E03.9 Active 505280718 Problem Supplemental oxygen dependent Z99.81 Active 920286183827 Problem COPD with acute lower respiratory infection J44.0 Active 680028220 Problem Slow transit constipation K59.01 Active 04960084 Problem Essential hypertension I10 Active 57526155 Problem Chronic systolic heart failure I50.22 Active 219994240 Problem Anxiety F41.9 Active 60867303 Problem Paroxysmal atrial fibrillation I48.0 Active 439116473 Problem Mild depression F32.0 Active 985945635 Problem Chronic obstructive pulmonary disease with (acute) exacerbation J44.1 Active 858264774 Problem Anemia associated with chronic renal failure D63.1 Active 483276274 Problem Psychophysiological insomnia F51.04 Active [id number] ALLERGIES No Information ENCOUNTERS Encounter Location Date Diagnosis [facility] [id number], [place] [address] Jun, [facility] [id number], [place] [address] May, [facility] [id number], [place] [address] May, [facility] [address], [place] [address] May, [address], [place] [address] May, [facility] [id number], [place] [address] May, [facility] [facility] [id number] [place] [address]41- [address]99 Apr, [facility] [address] [place] [id number] Apr, Mild depression F32.0 ; Essential hypertension I10 ; Chronic systolic heart failure I50.22 ; Chronic obstructive pulmonary disease with (acute) exacerbation J44.1 ; Paroxysmal atrial fibrillation I48.0 ; Chronic kidney disease, stage IV (severe) N18.4 ; Acquired hypothyroidism E03.9 ; Clotted dialysis access, sequela T82.49XS ; Psychophysiological insomnia F51.04 and Gastroesophageal reflux disease without esophagitis K21.9 [address] [id number] [place] [address] 34396- 0496 Apr, Psychophysiological insomnia F51.04 [address] [id number] [place] [address] 42487- 6328 14 Apr, 2018 [address], [place] [address] Apr, [address] [address], [place] [address] Mar, [facility] [address] [place] [id number] Mar, Acute respiratory failure with hypoxia J96.01 ; Acute pancreatitis, unspecified complication status, unspecified pancreatitis type K85.90 ; Chronic kidney disease, stage IV (severe) N18.4 ; Rash R21 and Gastroesophageal reflux disease without esophagitis K21.9 [address] [address], [place] [address] Mar, Psychophysiological insomnia F51.04 [facility] [facility] [id number], [place] [address] Mar, [facility] [address] [place] [id number] Feb, Vertigo R42 and Chronic kidney disease, stage IV (severe) N18.4 [address] [id number] [address] Feb, [facility] [address] [place] [id number] Feb, Cellulitis of breast N61.0 [id number] [place] [address]881- 8671 18 Feb, 2018 [address] [place] [id number] [place] [address] 83149- 4125 16 Feb, 2018 [address] [id number] [place] [address] 74468- 0123 12 Feb, [address] [facility] [address] [place] [id number] Feb, Urinary tract infection without hematuria, site unspecified N39.0 ; Chronic kidney disease, stage IV (severe) N18.4 and Chronic systolic heart failure I50.22 [address] [id number] [place] [address] 71308- 7262 [address], [address] [facility] [address] [place] [id number] 04 Feb, 2018 Chronic kidney disease, stage IV (severe) N18.4 ; Chronic systolic heart failure I50.22 ; COPD with acute lower respiratory infection J44.0 ; Vertigo R42 ; Slow transit constipation K59.01 ; Hemorrhoids, unspecified hemorrhoid type K64.9 ; Acquired hypothyroidism E03.9 ; Candidiasis of breast B37.89 and Difficulty in urination R39.198 [address] [address], [place] [address] Jan, Acute on chronic systolic CHF (congestive heart failure) I50.23 ; Acute kidney failure, unspecified N17.9 ; Chronic kidney disease, stage III (moderate) N18.3 and Supplemental oxygen dependent Z99.81 [facility] [address], [place] [address] Jan, Acute on chronic combined systolic and diastolic CHF ( congestive heart failure) I50.43 [facility] [id number] [place] [address] 68926- 3533 Jan, [facility] [id number] [place] [address]169 -5773 Jan, Irritant contact dermatitis due to cosmetics L24.3 ; Effusion of right wrist M25.431 and Pain in right wrist M25.531 [id number] [place] [address] 88286- 7793 Dec, Chronic systolic heart failure I50.22 ; Chronic obstructive pulmonary disease with (acute) exacerbation J44.1 ; CKD (chronic kidney disease ) stage 4, GFR 15-29 ml/min N18.4 ; Cardiomyopathy I42.9 ; Dependence on supplemental oxygen Z99.81 and Psychophysiological insomnia F51.04 [address] [facility] [id number] [place] [address]50- 4559 Dec, Anxiety F41.9 [facility] [id number] [place] [address] 39279- 6592 Dec, [facility] [id number] [place] [address] 06219- 1650 Dec, [facility] [id number] [place] [address] 76368- 5772 Dec, [facility] [address] [place] [id number] Dec, Encounter for examination for admission to [facility] Z02.2 ; Chronic obstructive pulmonary disease, unspecified J44.9 ; Paroxysmal atrial fibrillation I48.0 ; CKD (chronic kidney disease) stage 4, GFR 15-29 ml/min N18.4 and Cardiomyopathy I42.9 [facility] [id number] [place] [address] 17872- 4214 Dec, [address] [address], [place] [address] 28 Nov, 2017 Acute on chronic combined systolic and diastolic CHF ( congestive heart failure) I50.43 [facility] [address], [place] [address] 27 Nov, 2017 [facility] [address], [place] [address] 2617 Nov, [facility] [address] [place] [address] 07634- 5149 Nov, Chronic systolic heart failure I50.22 ; Paroxysmal atrial fibrillation I48.0 ; Chronic obstructive pulmonary disease with (acute) exacerbation J44.1 ; Chronic kidney disease, stage 4 (severe) N18.4 ; Pain in right hip M25.551 and Pain in left hip M25.552 [facility] [address], [place] [address] 9692 Nov, Chronic kidney disease, stage 4 (severe) N18.4 [facility] [address], [place] [address] 6221 Nov, [facility] [address], [place] [address] 7128 Nov, [facility] [address], [place] [address]- 4874 October, Chronic obstructive pulmonary disease with (acute) exacerbation J44.1 ; Chronic systolic heart failure I50.22 ; CKD (chronic kidney disease) stage 4, GFR 15-29 ml/min N18.4 and Dependence on supplemental oxygen Z99.81 [facility] [address], [place] [address] 4601 October, [facility] [address], [place] [address] 8312 October, [facility] [address], [place] [address]- 6976 Sep, Chronic kidney disease, stage 4 (severe) N18.4 and Chronic kidney disease, stage IV (severe) N18.4 [address] [facility] [id number] [place] [address] 84101- 5291 Sep, Chronic kidney disease, stage 4 (severe) N18.4 [address] [facility] [id number] [place] [address] 13194- 4571 Sep, Anxiety F41.9 ; Paroxysmal atrial fibrillation I48.0 ; Chronic kidney disease, stage 4 (severe) N18.4 ; Chronic systolic heart failure I50.22 and Anemia associated with chronic renal failure D63.1 [address] [id number] [place] [address] 79735- 6644 Sep, [facility] [facility] [id number] [place] [address] 87720- 6641 Aug, [facility] [facility] [id number] [place] [address] 60437- 6551 Aug, [facility] [address] [place] [place] [id number] Aug, Acute on chronic combined systolic and diastolic CHF (congestive heart failure) I50.43 ; Essential hypertension I10 ; CKD (chronic kidney disease) stage 4, GFR 15-29 ml/min N18.4 ; Paroxysmal atrial fibrillation I48.0 and Mild depression F32.0 [address] [id number] [place] [address] 24445- 1311 Aug, [facility] [facility] [id number] [place] [address] 06542- 5962 Aug, [address] [facility] [id number] [place] [address] 06550- 2646 Aug, Acute on chronic respiratory failure with hypoxia J96.21 ; Acute kidney failure, unspecified N17.9 ; Chronic kidney disease, stage 4 ( severe) N18.4 ; Acute on chronic combined systolic and diastolic CHF ( congestive heart failure) I50.43 ; Paroxysmal atrial fibrillation I48.0 and Cardiomyopathy, unspecified type I42.9 [address] [address]- 9892 08 Aug, 2017 [facility] [id number] [place] [address] 57222- 6450 Jul, [facility] [id number] [place] [address] 31250- 0509 Jul, [facility] [id number] [place] [address] 01191- 9571 Jul, [facility] [id number] [place] [address] 94513- 6838 Jul, [facility] [id number] [place] [address] 89875- 0495 Jul, Community acquired pneumonia of right lower lobe of lung J18.1 ; CKD (chronic kidney disease) stage 4, GFR 15-29 ml/min N18.4 and Shortness of breath R06.02 [facility] [id number] [place] [address] [id number] Jul, [facility] [id number] [place] [address] 40713- 7683 Jun, Anxiety F41.9 [facility] [id number] [place] [address] 44172- 2582 13 Apr, 2017 Anxiety F41.9 [facility] [id number] [place] [address] 68116- 7795 10 Apr, 2017 Cough R05 and Pneumonia of right lower lobe due to infectious organism J18.1 [facility] [address] [place] [address] 62576- 2392 07 Apr, 2017 [facility] [id number] [place] [address] 41348- 4913 06 Apr, 2017 Chronic kidney disease, stage IV (severe) N18.4 and COPD exacerbation J44.1 [facility] [id number] [place] [address] 54218- 5705 28 Sep, 2017 Chronic systolic heart failure I50.22 ; Essential hypertension I10 ; Anemia associated with chronic renal failure D63.1 and Chronic kidney disease, stage 4 (severe) N18.4 [facility] [id number] [place] [address] 22337- 9897 Feb, Anxiety F41.9 [facility] [id number] [place] [address] 17995- 0800 Feb, [facility] [address] [address]- 0101 Feb, [facility] [address] 46989- 9952 Jan, Other fatigue R53.83 ; Otalgia of both ears H92.03 and Urinary urgency R39.15 [facility] [id number] [place] [address] 87721- 0054 Jan, Acute non-recurrent maxillary sinusitis J01.00 ; Chronic systolic heart failure I50.22 ; Stage 3 chronic kidney disease N18.3 and Mild depression F32.0 [facility] [id number] [place] [address] 98582- 6750 Sep, [facility] [id number] [place] [address] 24776- 9789 Sep, [facility] [id number] [place] [address] 50725- 3162 Feb, [facility] [id number] [place] [address] 39260- 0118 Feb, [facility] [id number] [place] [address] 83362- 3685 Dec, [facility] [id number] [place] [address] 39534- 8984 Dec, [facility] [id number] [place] [address] 40290- 4857 Nov, [facility] [address] [place] [address]- 0559 Nov, [facility] [place] [facility] [address] [id number] [place] [address]- 5808 Nov, [facility] [place] [facility] [address] [id number] [place] [address]- 1456 Nov, [facility] [place] [facility] [address] [id number] [place] [address]- 1636 October, [facility] [place] [facility] [address] [id number] [place] [address]- 4386 October, [facility] [place] [facility] [address] [id number] [place] [address]- 4862 Sep, [facility] [place] [facility] [address] [id number] [place] [address]- 9740 Sep, [facility] [place] [facility] [address] [id number] [place] [address]- 5531 Sep, [facility] [place] [facility] [address] [id number] [place] [address]- 6815 Sep, [facility] [place] [facility] [address] [id number] [place] [address]- 3545 Sep, [facility] [place] [facility] [address] [id number] [place] [address]- 0410 Aug, [facility] [place] [facility] [address] [id number] [place] [address]- 4715 31 Aug, 2013 [facility] [place] [facility] [address] [id number] [place] [address]- 7277 27 Aug, 2013 [facility] [place] [facility] [address] [id number] [place] [address]- 2613 Aug, [facility] [place] [facility] [address] [id number] [place] [address]- 3257 Aug, [facility] [place] [facility] [address] [id number] [place] [address]- 0819 17 Aug, 2013 [facility] [place] [facility] [address] [id number] [place] [address]- 3130 Aug, [facility] [place] [facility] [address] [id number] [place] [address]- 2190 Aug, [facility] [place] [facility] [address] [id number] [place] [address]- 4584 Jul, [facility] [place] [facility] [address] [id number] [place] [address]- 7895 Jul, [facility] [place] [facility] [address] [id number] [place] [address]- 6134 Jul, [facility] [place] [facility] [address] [id number] [place] [address]- 9128 Jul, [facility] [place] [facility] [address] [id number] [place] [address]- 0118 Jul, [facility] [place] [facility] [address] [id number] [place] [address]- 6907 Jul, [facility] [place] [facility] [address] [id number] [place] [address]- 7575 Jun, [facility] [place] [facility] [address] [id number] [place] [address]- 9234 Jun, [facility] [place] [facility] [address] [id number], [place] [address]- 2647 Jun, [facility] [place] [facility] [address] [id number], [place] [address]- 7460 Jun, [facility] [place] [facility] [address] [id number] [place] [address]- 4619 Jun, [facility] [place] [facility] [address] [id number] [place] [address]- 6618 May, [facility] [place] [facility] [address] [id number], [place] [address]- 1842 May, [facility] [place] [facility] [address] [id number], [place] [address] 2546 May, [facility] [address] [id number] [place] [address]- 6045 May, [facility] [address] [id number], [place] [address]- 7718 May, [facility] [address] [facility] [id number] [place] [address]- 7512 Apr, [facility] [address] [id number] [place] [address]- 5507 Apr, [facility] [id number] [address]- 5043 Mar, [facility] [address] [facility] [id number] [place] [address]- 0283 Mar, [facility] [address], [place] [address]- 8893 Mar, [facility] [address] [facility] [id number] [place] [address]- 8586 Mar, [facility] [id number] [address]- 9039 Feb, [facility] [id number], [place] [address]- 3144 Jan, [facility] [address] [id number], [place] [address]- 4498 Jan, [facility] [place] [facility] [address] [id number], [place] [address] 254 Aug, [facility] [place] [facility] [address] [id number], [place] [address]- 2566 Jul, [facility] [place] [facility] [address] [facility] [id number], [place] [address]- 9116 Jun, [facility] [place] [facility] [id number], [place] [address]- 6702 May, [facility] [place] [facility] [address] [id number] [place] [address]- 1323 May, [facility] [place] [facility] [address] [id number] [place] [address]- 7276 May, [facility] [place] [facility] [address] [id number] [place] [address]- 8468 May, [facility] [place] [facility] [address] [id number] [place] [address]- 7796 Apr, [facility] [place] [facility] [address] [id number] [place] [address]- 8623 Apr, [facility] [place] [facility] [address] [id number] [place] [address]- 9590 Mar, [facility] [place] [facility] [address] [id number] [place] [id number] Mar, [facility] [place] [facility] [address] [id number] [place] [address] Mar, [facility] [place] [facility] [address] [id number] [place] [address] Mar, [facility] [place] [facility] [address] [id number] [place] [address] Mar, [facility] [place] [facility] [address] [facility] [id number] [place] [address] Mar, [facility] [place] [facility] [address] [id number] [place] [address] Dec, [facility] [place] [facility] [address] [id number] [place] [address] Dec, [facility] [place] [facility] [address] [id number] [place] [address] Nov, [facility] [place] [facility] [address] [facility] [id number] [place] [address] Nov, [facility] [place] [facility] [address] [id number] [place] [address] October, [facility] [place] [address] [facility] [id number] [place] [address] October, [facility] [place] [address] [facility] [id number], [place] [address] Sep, [facility] [place] [address] [facility] [id number], [place] [address] Aug, [facility] [place] [address] [facility] [id number], [place] [address] Aug, [facility] [place] [address] [facility] [id number], [place] [address] Aug, IMMUNIZATIONS No Known Immunizations SOCIAL [...] - See's Dr Burnette in [facility] Medical History Chronic Heart Failure Surgical History 2 cesareans Surgical History defibrillator - 2012 Hospitalization History pneumonia for a week 2016 Hospitalization History Hospitalized at [facility]- CHF, Chest pain. Dismissed 07/11/17 07/10/2017 Hospitalization History [facility] pneumonia, hypoxia-[facility] 07/30/[address] [facility]- [facility] PNA, Respiratory Failure. Transfered to [place] 10/25/2017 Hospitalization History CHF/COPD 11/2017
--- NOTE | 2018-07-13 09:32 | ED Respiratory ---
General Stated Complaint: SOB Source: patient, EMS Exam Limitations: no limitations History of Present Illness Date Seen by Provider: Jul 13, 2018 Time Seen by Provider: 09:20 Initial Comments Patient presents to ER by EMS from outpatient dialysis where she does dialysis on Friday. She is complaining of being short of breath. She had the same complaint for the past 1-2 weeks urine she's had a cough has become more productive in the last day. Last dialysis appointment they took off extra fluid seeing if that would help with her shortness of breath. It did not. She says she's not had any more edema now than usual. She wears compression stockings and has baseline edema. She is not having any chest pain. She uses oxygen 3 L at baseline and was satting 99% when EMS arrived. They started a DuoNeb said her breath sounds were diminished but not wheezy. She has a history of COPD. She had influenza a few months ago. Patient denies any fevers, chills, rash headache nausea vomiting or diarrhea. Allergies and Home Medications Allergies Coded Allergies: propoxyphene napsylate (Unverified Allergy, Severe, SEVERE NAUSEA AND VOMITING , 04/03/13) meperidine (Unverified Allergy, Unknown, 12/19/14) venom-honey bee (Verified Allergy, Unknown, 09/19/13) lisinopril (Verified Adverse Reaction, Unknown, PT STATES "BOTTOMS OUT" HER BLOOD PRESSURE, 03/12/15) Patient states that it "bottoms out" her blood pressure. She will refuse to take this medication and reports it as an allergy. Home Medications Acetaminophen 500 Mg Tablet, 1,000 MG PO Q6H PRN for PAIN-MILD, (Reported) Amiodarone HCl 200 Mg Tablet, 200 MG PO DAILY, (Reported) Calcium Carbonate 300 Mg Tab.chew, 300 MG PO QID PRN for INDIGESTION, (Reported) Carvedilol 12.5 Mg Tablet, 12.5 MG PO BID, (Reported) Ferrous Sulfate 325 Mg Tablet, 325 MG PO DAILY, (Reported) Furosemide 10 Mg/1 Ml Vial, 100 MG IVP BID@0500,1700 Prescribed by: SAM GIBBS on 12/26/17 1047 Ipratropium/Albuterol Sulfate 3 Ml Ampul.neb, 3 ML NEB TID, (Reported) Ipratropium/Albuterol Sulfate 3 Ml Ampul.neb, 3 ML IH Q4H PRN for SHORTNESS OF BREATH, (Reported) Isosorbide Mononitrate 30 Mg Tab.er.24h, 15 MG PO BID, (Reported) TAKES 1/2 (30MG) TABLET Levothyroxine Sodium 25 Mcg Tablet, 25 MCG PO DAILY, (Reported) Loperamide HCl 2 Mg Capsule, 2 MG PO UD PRN for DIARRHEA, (Reported) Lorazepam 0.5 Mg Tablet, 0.5 MG PO HS, (Reported) Magnesium Oxide 400 Mg Tablet, 400 MG PO DAILY, (Reported) Multivitamins-Min/FA/Ginkgo 1 Each Tablet, 1 TAB PO DAILY, (Reported) Omeprazole 40 Mg Capsule.dr, 40 MG PO DAILY, (Reported) Ondansetron 4 Mg Tab.rapdis, 4 MG SL Q6H PRN for NAUSEA/VOMITING-1ST LINE, ( Reported) Oxycodone HCl 5 Mg Tablet, 5 MG PO Q4H PRN for PAIN-SEVERE, (Reported) Sertraline HCl 100 Mg Tablet, 150 MG PO HS, (Reported) TAKES 1 & 1/2 OF A (100 MG) TABLET Patient Home Medication List Home Medication List Reviewed: Yes Review of Systems Review of Systems Constitutional: No fever; malaise EENTM: No ear discharge, No ear pain Respiratory: cough; No phlegm; short of breath; No wheezing Cardiovascular: No chest pain, No edema Gastrointestinal: No abdominal pain, No constipation, No diarrhea, No nausea Genitourinary: No discharge, No dysuria Musculoskeletal: No back pain, No joint pain Skin: No pruritus, No rash Psychiatric/Neurological: Denies Headache, Denies Numbness Past Ffcjuzm-Xglqim-Elvglx Hx Patient Social History Alcohol Use: Denies Use Recreational Drug Use: Yes Drug of Choice: THC USE IN PAST Smoking Status: Current Everyday Smoker Type Used: Cigarettes Former Smoker, Quit: Jul 09, 2017 2nd Hand Smoke Exposure: No Recent Hopitalizations: No Immunizations Up To Date Tetanus Booster (TDap): Unknown PED Vaccines UTD: No Date of Pneumonia Vaccine: Mar 30, 2013 Date of Influenza Vaccine: Jul 11, 2017 Seasonal Allergies Seasonal Allergies: Yes Past Medical History Surgeries: Yes Cardiac, Section, Defibrillator, Dialysis, Hysterectomy, Vascular Surgery Respiratory: Yes Asthma, Pneumonia, COPD Currently Using CPAP: No Currently Using BIPAP: No Cardiac: Yes (CHF EF 20% non ischemic, left atrial thrombus; CHF/ PULMONARY EDEMA) Atrial Fibrillation, Cardiomyopathy, Chronic Edema/Swelling, Coronary Artery Disease, High Cholesterol, Hypertension Neurological: Yes Headaches /Migraines 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 Disorders: Yes (Hysterectomy) 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 Disorders: Denies 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: Hysterectomy, Menopausal Sexually Transmitted Disease: No HIV/AIDS: No Genitourinary: Yes Renal Failure, Dialysis, UTI-Chronic Gastrointestinal: Yes (history of elevated transaminases, HX of elevated liver enzymes) Gastroesophageal Reflux, Hiatal Hernia Musculoskeletal: Yes Arthritis Endocrine: Yes Hypothyroidsim HEENT: Yes Cataract Loss of Vision: Denies Hearing Impairment: Denies Cancer: Yes Bladder Psychosocial: Yes Sleep Difficulties, Anxiety, Depression Integumentary: No Blood Disorders: Yes (ANEMIA) Adverse Reaction/Blood Tranf: No Family Medical History Cancer 19 FATHER (HODGKINS ) 19 MOTHER (BRAIN TUMOR ) Congenital heart disease 19 MOTHER Congestive heart failure 19 MOTHER Family history: Cardiovascular disease 19 MOTHER G8 SISTER G8 SISTER Family history: Hypertension 19 MOTHER G8 SISTER G8 SISTER Heart disease 19 MOTHER G8 SISTER G8 SISTER History of - respiratory disease 19 MOTHER G8 BROTHER G8 SISTER Heart Disease, Cancer, Hypertension Physical Exam Vital Signs - First Documented 07/13/18 07/13/18 10:38 13:48 Temp 98.7 Pulse 84 Resp 18 B/P (MAP) 128/78 (95) Pulse Ox 100 O2 Delivery Nasal Cannula O2 Flow Rate 3.00 Capillary Refill : Height: 4'9.00" Weight: 145lbs. 0oz. 65.709586by; 34.6 BMI Method:Stated General Appearance: other (disheveled, chronic illness) Eyes: Bilateral Eye Normal Inspection, Bilateral Eye PERRL, Bilateral Eye EOMI HEENT: PERRL/EOMI, normal ENT inspection, TMs normal, pharynx normal Neck: non-tender, full range of motion, supple Respiratory: chest non-tender, lungs clear, normal breath sounds, no respiratory distress, no accessory muscle use Cardiovascular: normal peripheral pulses, regular rate, rhythm, other (1+ pitting edema with compressive wraps) Gastrointestinal: normal bowel sounds, non tender, soft Extremities: non-tender, normal inspection, normal capillary refill Neurologic/Psychiatric: alert, normal mood/affect, oriented x 3 Skin: normal color, warm/dry Procedures/Interventions Date of ETT Placement: Aug 20, 2017 Time of ETT Placement: 06 Progress/Results/Core Measures Suspected Sepsis SIRS Temperature: Pulse: Respiratory Rate: Laboratory Tests 07/13/18 09:54: White Blood Count 7.8 Blood Pressure / Mean: Laboratory Tests 07/13/18 09:54: Creatinine 2.96H, Platelet Count 224, Total Bilirubin 0.9 Results/Orders Lab Results Laboratory Tests Test 07/13/18 09:43 07/13/18 09:54 Range/Units Glucometer 127 H 70-110 MG/DL White Blood Count 7.8 4.3-11.0 10^3/uL Red Blood Count 3.27 L 4.35-5.85 10^6/uL Hemoglobin 10.2 L 11.5-16.0 G/DL Hematocrit 31 L 35-52 % Mean Corpuscular Volume 93 80-99 FL Mean Corpuscular Hemoglobin 31 25-34 PG Mean Corpuscular Hemoglobin Concent 33 32-36 G/DL Red Cell Distribution Width 17.5 H 10.0-14.5 % Platelet Count 224 130-400 10^3/uL Mean Platelet Volume 12.0 H 7.4-10.4 FL Neutrophils (%) (Auto) 87 H 42-75 % Lymphocytes (%) (Auto) 5 L 12-44 % Monocytes (%) (Auto) 7 0-12 % Eosinophils (%) (Auto) 0 0-10 % Basophils (%) (Auto) 1 0-10 % Neutrophils # (Auto) 6.8 1.8-7.8 X 10^3 Lymphocytes # (Auto) 0.4 L 1.0-4.0 X 10^3 Monocytes # (Auto) 0.6 0.0-1.0 X 10^3 Eosinophils # (Auto) 0.0 0.0-0.3 10^3/uL Basophils # (Auto) 0.1 0.0-0.1 10^3/uL Neutrophils % (Manual) 92 % Lymphocytes % (Manual) 4 % Monocytes % (Manual) 4 % Polychromasia SLIGHT Hypochromasia SLIGHT Target Cells SLIGHT Tear Drop Cells SLIGHT Sodium Level 127 L 135-145 MMOL/L Potassium Level 3.0 L 3.6-5.0 MMOL/L Chloride Level 89 L 98-107 MMOL/L Carbon Dioxide Level 25 21-32 MMOL/L Anion Gap 13 5-14 MMOL/L Blood Urea Nitrogen 16 7-18 MG/DL Creatinine 2.96 H 0.60-1.30 MG/DL Estimat Glomerular Filtration Rate 16 BUN/Creatinine Ratio 5 Glucose Level 116 H 70-105 MG/DL Calcium Level 8.4 L 8.5-10.1 MG/DL Corrected Calcium 9.3 8.5-10.1 MG/DL Magnesium Level 1.7 L 1.8-2.4 MG/DL Total Bilirubin 0.9 0.1-1.0 MG/DL Aspartate Amino Transf (AST/SGOT) 77 H 5-34 U/L Alanine Aminotransferase (ALT/SGPT) 57 H 0-55 U/L Alkaline Phosphatase 168 H 40-136 U/L C-Reactive Protein High Sensitivity 5.01 H 0.00-0.50 MG/DL B-Type Natriuretic Peptide 54098.3 H <100.0 PG/ML Total Protein 6.4 6.4-8.2 GM/DL Albumin 2.9 L 3.2-4.5 GM/DL Micro Results Microbiology 07/13/18 Influenza Types A,B Antigen (MARIA VICTORIA) - Final, Complete My Orders Orders - BEVERLY AQUINO Influenza A And B Antigens (07/13/18 09:25) BNP (07/13/18 09:25) Cbc With Automated Diff (07/13/18 09:25) Comprehensive Metabolic Panel (07/13/18 09:25) Hs C Reactive Protein (07/13/18 09:25) Magnesium (07/13/18 09:25) Sputum Culture (07/13/18 09:25) Accucheck Stat ONCE (07/13/18 09:25) Chest 1 View, Ap/Pa Only (07/13/18 09:25) Manual Differential (07/13/18 09:54) General/Regular (07/13/18 Lunch) Vital Signs/I&O 07/13/18 07/13/18 10:38 13:48 Temp 98.7 98.9 Pulse 84 98 Resp 18 20 B/P (MAP) 128/78 (95) 134/82 (99) Pulse Ox 100 96 O2 Delivery Nasal Cannula Nasal Cannula O2 Flow Rate 3.00 Capillary Refill : Progress Note : Time: 11:25 Progress Note She is not requiring any extra oxygen beyond her normal 3 L of nasal cannula oxygen. Suspect influenza even though she doesn't have a fever. Diagnostic Imaging Diagonstic Imaging: Xray Plain Films/CT/US/NM/MRI: chest (1v) Comments [email or web address] [place], [place] NAME: WYATT KULKARNI [facility] REC#: [id number] PT STATUS: REG ER : 1960 PHYSICIAN: BEVERLY AQUINO MD ADMIT DATE: 07/13/18/ER Draft Date of Exam:07/13/18 CHEST 1 VIEW, AP/PA ONLY INDICATION: Shortness of air and influenza B. TIME OF EXAMINATION: 10:06 AM. COMPARISON: 06/13/2018. FINDINGS: The heart remains enlarged. A cardiac defibrillator is in place. The right-sided dialysis line remains in place. Congestive changes have developed since the prior chest radiograph. There is central congestion and interstitial edema. There appear to be trace bilateral effusions. No pneumothorax is seen. IMPRESSION: Development of congestive failure when compared to the exam from 06/13/2018. Dictated on workstation # [id number] Dict: 07/13/18 1015 Trans: 07/13/18 1018 [id number] Interpreted by: RONI HERNANDEZ MD Electronically signed by: Reviewed: Reviewed by Me Departure Impression Primary Impression: RESPIRATORY FAILURE, UNSP, UNSP W HYPOXIA OR HYPERCAPNIA Additional Impressions: Influenza A End-stage renal disease on hemodialysis Pulmonary edema Qualified Codes: J81.0 - Acute pulmonary edema Disposition: XFER SHT-TRM HOSP Condition: Stable Transfer Time Spoke to Accepting Phy: 11:30 Transfer Progress Notes [facility] [place]. Dr. Pedroza accepts for transfer. Transfer Facility: [facility] [place]. Method of Transfer: EMS Departure-Patient Inst. Referrals: TEAGAN VERNON MD (PCP/Family) Primary Care Physician Copy Copies To 1: CEZAR JORDAN TITUS J Jul 13, 2018 09:32
[2018-07-13 10:02] LABS: BASOPHILS # (AUTO) 0.1 10^3/uL (0.0-0.1); BASOPHILS % (AUTO) 1 % (0-10); EOSINOPHILS % (AUTO) 0 % (0-10); HEMATOCRIT 31 % (35-52); HEMOGLOBIN 10.2 G/DL (11.5-16.0); LYMPHOCYTES # (AUTO) 0.4 X 10^3 (1.0-4.0); LYMPHOCYTES % (AUTO) 5 % (12-44); MEAN CORPUSCULAR HEMOGLOBIN 31 PG (25-34); MEAN CORPUSCULAR HGB CONC 33 G/DL (32-36); MEAN CORPUSCULAR VOLUME 93 FL (80-99); MONOCYTES # (AUTO) 0.6 X 10^3 (0.0-1.0); MONOCYTES % (AUTO) 7 % (0-12); NEUTROPHILS # (AUTO) 6.8 X 10^3 (1.8-7.8); NEUTROPHILS % (AUTO) 87 % (42-75); PLATELET COUNT 224 10^3/uL (130-400); RED BLOOD COUNT 3.27 10^6/uL (4.35-5.85); RED CELL DISTRIBUTION WIDTH 17.5 % (10.0-14.5); WHITE BLOOD COUNT 7.8 10^3/uL (4.3-11.0)
--- NOTE | 2018-07-13 10:19 | Diagnostic Imaging Report ---
INDICATION: Shortness of air and influenza B. TIME OF EXAMINATION: 10:06 AM. COMPARISON: 06/13/2018. FINDINGS: The heart remains enlarged. A cardiac defibrillator is in place. The right-sided dialysis line remains in place. Congestive changes have developed since the prior chest radiograph. There is central congestion and interstitial edema. There appear to be trace bilateral effusions. No pneumothorax is seen. IMPRESSION: Development of congestive failure when compared to the exam from 06/13/2018. Dictated by: Dictated on workstation # [id number]
[2018-07-13 10:21] LABS: ALBUMIN 2.9 GM/DL (3.2-4.5); BILIRUBIN,TOTAL 0.9 MG/DL (0.1-1.0); CALCIUM 8.4 MG/DL (8.5-10.1); CREATININE SERUM 2.96 MG/DL (0.60-1.30); MAGNESIUM 1.7 MG/DL (1.8-2.4); TOTAL PROTEIN 6.4 GM/DL (6.4-8.2)
[2018-07-13 10:49] LABS: HYPOCHROMASIA SLIGHT; LYMPHOCYTES % (MANUAL) 4 %; MONOCYTES % (MANUAL) 4 %; NEUTROPHILS % (MANUAL) 92 %; POLYCHROMASIA SLIGHT; TARGET CELLS SLIGHT; TEAR DROP CELLS SLIGHT
--- NOTE | 2018-07-13 12:18 | NUR ---
pt up to [facility] with assist, 25 ml out
--- NOTE | 2018-07-13 12:35 | NUR ---
vicente called back with room # 155, dispatch called
[2018-07-13 13:48] VITALS: BP 134/82
== END 2018-07-13 13:25 | disposition short-term general hospital (02) ==
LOC: EDUNIT# 09:17 → ER 09:19
DX: E11.22 Type 2 diabetes mellitus with diabetic chronic kidney disease (principal); I13.2 Hypertensive heart and chronic kidney disease with heart failure and with stage 5 chronic kidney disease, or end stage renal disease; I50.9 Heart failure, unspecified; N18.6 End stage renal disease; J96.92 Respiratory failure, unspecified with hypercapnia; J96.02 Acute respiratory failure with hypercapnia; J96.91 Respiratory failure, unspecified with hypoxia; J11.1 Influenza due to unidentified influenza virus with other respiratory manifestations; J81.1 Chronic pulmonary edema; J44.9 Chronic obstructive pulmonary disease, unspecified; I42.9 Cardiomyopathy, unspecified; I48.91 Unspecified atrial fibrillation; G43.909 Migraine, unspecified, not intractable, without status migrainosus; I25.10 Atherosclerotic heart disease of native coronary artery without angina pectoris; K21.9 Gastro-esophageal reflux disease without esophagitis; F41.9 Anxiety disorder, unspecified; F32.9 Major depressive disorder, single episode, unspecified; D64.9 Anemia, unspecified; E03.9 Hypothyroidism, unspecified; Z85.51 Personal history of malignant neoplasm of bladder; Z87.891 Personal history of nicotine dependence; Z80.8 Family history of malignant neoplasm of other organs or systems; Z82.49 Family history of ischemic heart disease and other diseases of the circulatory system; Z80.7 Family history of other malignant neoplasms of lymphoid, hematopoietic and related tissues; Z95.810 Presence of automatic (implantable) cardiac defibrillator; Z90.710 Acquired absence of both cervix and uterus; Z87.01 Personal history of pneumonia (recurrent); Z99.81 Dependence on supplemental oxygen; Z99.2 Dependence on renal dialysis; Z79.51 Long term (current) use of inhaled steroids
CPT/HCPCS: 36415; 71045; 80053; 82962; 83735; 83880; 85007; 85027; 86141; 87070; 87205; 87804

== ENCOUNTER 2018-07-22 11:58 | Emergency (ER) | payer MEDICARE ==
[~2018-07-22] VITALS: Ht 165.1 cm; Wt 72.6 kg
[2018-07-22 12:42] LABS: BASOPHILS # (AUTO) 0.1 10^3/uL (0.0-0.1); BASOPHILS % (AUTO) 1 % (0-10); EOSINOPHILS % (AUTO) 0 % (0-10); HEMATOCRIT 30 % (35-52); HEMOGLOBIN 9.6 G/DL (11.5-16.0); LYMPHOCYTES # (AUTO) 1.3 X 10^3 (1.0-4.0); LYMPHOCYTES % (AUTO) 14 % (12-44); MEAN CORPUSCULAR HEMOGLOBIN 30 PG (25-34); MEAN CORPUSCULAR HGB CONC 32 G/DL (32-36); MEAN CORPUSCULAR VOLUME 93 FL (80-99); MEAN PLATELET VOLUME 12.3 FL (7.4-10.4); MONOCYTES # (AUTO) 0.8 X 10^3 (0.0-1.0); MONOCYTES % (AUTO) 8 % (0-12); NEUTROPHILS # (AUTO) 7.3 X 10^3 (1.8-7.8); NEUTROPHILS % (AUTO) 77 % (42-75); PLATELET COUNT 265 10^3/uL (130-400); RED BLOOD COUNT 3.21 10^6/uL (4.35-5.85); RED CELL DISTRIBUTION WIDTH 17.3 % (10.0-14.5); WHITE BLOOD COUNT 9.5 10^3/uL (4.3-11.0)
--- NOTE | 2018-07-22 12:48 | ED General ---
General Chief Complaint: General Problems/Pain Stated Complaint: FALL CONFUSION/LESS ALERT Source of Information: Patient Exam Limitations: No Limitations History of Present Illness Date Seen by Provider: Jul 22, 2018 Time Seen by Provider: 12:15 Initial Comments Here from dialysis where she did not receive her dialysis for complaint of weakness and confusion. Apparently she had a fall last night that was minor was just next to the bed and did not injure anything. That was when they noted that there was some confusion though. The confusion was going on throughout the day and continues this morning and she was slow to get up. Ultimately they were able to get her to dialysis where she was turned away because she was confused and short of breath. No report of fever. Is complaining of nausea and vomiting. Is complaining of weakness. Had similar presentation last week and had transfer to [place]. She reports that she can usually have one urination daily. Timing/Duration: 12-24 Hours Severity: Moderate Associated Systoms: No Chest Pain; Cough; No Fever/Chills; Nausea/Vomiting, Shortness of Air, Weakness Allergies and Home Medications Allergies Coded Allergies: propoxyphene napsylate (Unverified Allergy, Severe, SEVERE NAUSEA AND VOMITING , 04/03/13) meperidine (Unverified Allergy, Unknown, 12/19/14) venom-honey bee (Verified Allergy, Unknown, 09/19/13) lisinopril (Verified Adverse Reaction, Unknown, PT STATES "BOTTOMS OUT" HER BLOOD PRESSURE, 03/12/15) Patient states that it "bottoms out" her blood pressure. She will refuse to take this medication and reports it as an allergy. Home Medications Acetaminophen 500 Mg Tablet, 1,000 MG PO Q6H PRN for PAIN-MILD, (Reported) Amiodarone HCl 200 Mg Tablet, 200 MG PO DAILY, (Reported) Calcium Carbonate 300 Mg Tab.chew, 300 MG PO QID PRN for INDIGESTION, (Reported) Carvedilol 12.5 Mg Tablet, 12.5 MG PO BID, (Reported) Ferrous Sulfate 325 Mg Tablet, 325 MG PO DAILY, (Reported) Furosemide 10 Mg/1 Ml Vial, 100 MG IVP BID@0500,1700 Prescribed by: SAM GIBBS on 12/26/17 1047 Ipratropium/Albuterol Sulfate 3 Ml Ampul.neb, 3 ML NEB TID, (Reported) Ipratropium/Albuterol Sulfate 3 Ml Ampul.neb, 3 ML IH Q4H PRN for SHORTNESS OF BREATH, (Reported) Isosorbide Mononitrate 30 Mg Tab.er.24h, 15 MG PO BID, (Reported) TAKES 1/2 (30MG) TABLET Levothyroxine Sodium 25 Mcg Tablet, 25 MCG PO DAILY, (Reported) Loperamide HCl 2 Mg Capsule, 2 MG PO UD PRN for DIARRHEA, (Reported) Lorazepam 0.5 Mg Tablet, 0.5 MG PO HS, (Reported) Magnesium Oxide 400 Mg Tablet, 400 MG PO DAILY, (Reported) Multivitamins-Min/FA/Ginkgo 1 Each Tablet, 1 TAB PO DAILY, (Reported) Omeprazole 40 Mg Capsule.dr, 40 MG PO DAILY, (Reported) Ondansetron 4 Mg Tab.rapdis, 4 MG SL Q6H PRN for NAUSEA/VOMITING-1ST LINE, ( Reported) Oxycodone HCl 5 Mg Tablet, 5 MG PO Q4H PRN for PAIN-SEVERE, (Reported) Sertraline HCl 100 Mg Tablet, 150 MG PO HS, (Reported) TAKES 1 & 1/2 OF A (100 MG) TABLET Patient Home Medication List Home Medication List Reviewed: Yes Review of Systems Review of Systems Constitutional: see HPI; No chills, No diaphoresis, No fever; weakness EENTM: No nose congestion, No throat pain Respiratory: cough, phlegm, short of breath Cardiovascular: No chest pain; edema Gastrointestinal: No abdominal pain, No nausea, No vomiting Genitourinary: no symptoms reported; No dysuria; other (states was usually urinate once a day for denies any dysuria) : No Musculoskeletal: No back pain, No muscle pain Skin: lesions (multiple small lesions noted to the skin exposed areas to all regions) Hematologic/Lymphatic: Easy Bruising, Other (multiple hematomas on upper and lower extremities.) All Other Systems Reviewed Negative Unless Noted: Yes Past Adpnuwy-Ubgxef-Mvghxw Hx Past Med/Social Hx: Reviewed Nursing Past Med/Soc Hx Patient Social History Alcohol Use: Denies Use Recreational Drug Use: No Drug of Choice: THC USE IN PAST Smoking Status: Former Smoker Type Used: Cigarettes Former Smoker, Quit: Jul 09, 2017 2nd Hand Smoke Exposure: No Recent Foreign Travel: No Contact w/Someone Who Travel: No Recent Hopitalizations: No Immunizations Up To Date Tetanus Booster (TDap): Unknown PED Vaccines UTD: No Date of Pneumonia Vaccine: Mar 30, 2013 Date of Influenza Vaccine: Jul 11, 2017 Seasonal Allergies Seasonal Allergies: Yes Past Medical History Surgeries: Yes Cardiac, Section, Defibrillator, Dialysis, Hysterectomy, Vascular Surgery Respiratory: Yes Asthma, Pneumonia, COPD Currently Using CPAP: No Currently Using BIPAP: No Cardiac: Yes (CHF EF 20% non ischemic, left atrial thrombus; CHF/ PULMONARY EDEMA) Atrial Fibrillation, Cardiomyopathy, Chronic Edema/Swelling, Coronary Artery Disease, High Cholesterol, Hypertension Neurological: Yes Headaches /Migraines 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 Disorders: Yes (Hysterectomy) 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, 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 Sexually Transmitted Disease: No HIV/AIDS: No Genitourinary: Yes Renal Failure, Dialysis, UTI-Chronic Gastrointestinal: Yes (history of elevated transaminases, HX of elevated liver enzymes) Gastroesophageal Reflux, Hiatal Hernia Musculoskeletal: Yes Arthritis Endocrine: Yes Hypothyroidsim HEENT: Yes Cataract Loss of Vision: Denies Hearing Impairment: Denies Cancer: Yes Bladder Psychosocial: Yes Sleep Difficulties, Anxiety, Depression Integumentary: No Blood Disorders: Yes (ANEMIA) Adverse Reaction/Blood Tranf: No Family Medical History Reviewed Nursing Family Hx Cancer 19 FATHER (HODGKINS ) 19 MOTHER (BRAIN TUMOR ) Congenital heart disease 19 MOTHER Congestive heart failure 19 MOTHER Family history: Cardiovascular disease 19 MOTHER G8 SISTER G8 SISTER Family history: Hypertension 19 MOTHER G8 SISTER G8 SISTER Heart disease 19 MOTHER G8 SISTER G8 SISTER History of - respiratory disease 19 MOTHER G8 BROTHER G8 SISTER Heart Disease, Cancer, Hypertension Physical Exam Vital Signs Vital Signs - First Documented 07/22/18 12:07 Temp 97.2 Pulse 83 Resp 20 B/P (MAP) 122/79 (93) Pulse Ox 97 O2 Delivery Nasal Cannula O2 Flow Rate 3.00 Capillary Refill : Height, Weight, BMI Height: 5'5.00" Weight: 160lbs. 0oz. 72.921455lw; 34.6 BMI Method:Stated General Appearance: No Apparent Distress, WD/WN HEENT: PERRL/EOMI, Pharynx Normal Neck: Non Tender, Supple Respiratory: Crackles, Wheezing (bilateral trace wheezes) Cardiovascular: Regular Rate, Rhythm, No Murmur Gastrointestinal: Non Tender, Soft Back: Normal Inspection, No CVA Tenderness, No Vertebral Tenderness Extremity: Normal Range of Motion, Non Tender, Other (compression stockings on. Bilaterally there does appear to be small amount of edema associated with the legs.) Neurologic/Psychiatric: Alert, Oriented x3 Skin: Warm/Dry, Other (multiple small lesions to trunk and torso as well as lower extremities were she is scratching and picking.) Focused Exam Lactate Level 07/22/18 12:30: Lactic Acid Level 0.93 Lactic Acid Level Laboratory Tests Test 07/22/18 12:30 Lactic Acid Level 0.93 MMOL/L (0.50-2.00) Procedures/Interventions Date of ETT Placement: Aug 20, 2017 Time of ETT Placement: 628 Progress/Results/Core Measures Suspected Sepsis SIRS Temperature: Pulse: Respiratory Rate: Laboratory Tests 07/22/18 12:30: White Blood Count 9.5 Blood Pressure / Mean: 07/22/18 12:30: Lactic Acid Level 0.93 Laboratory Tests 07/22/18 12:30: Creatinine 3.63H, INR Comment 1.1, Platelet Count 265, Total Bilirubin 1.3H Results/Orders Lab Results Laboratory Tests Test 07/22/18 12:30 Range/Units White Blood Count 9.5 4.3-11.0 10^3/uL Red Blood Count 3.21 L 4.35-5.85 10^6/uL Hemoglobin 9.6 L 11.5-16.0 G/DL Hematocrit 30 L 35-52 % Mean Corpuscular Volume 93 80-99 FL Mean Corpuscular Hemoglobin 30 25-34 PG Mean Corpuscular Hemoglobin Concent 32 32-36 G/DL Red Cell Distribution Width 17.3 H 10.0-14.5 % Platelet Count 265 130-400 10^3/uL Mean Platelet Volume 12.3 H 7.4-10.4 FL Neutrophils (%) (Auto) 77 H 42-75 % Lymphocytes (%) (Auto) 14 12-44 % Monocytes (%) (Auto) 8 0-12 % Eosinophils (%) (Auto) 0 0-10 % Basophils (%) (Auto) 1 0-10 % Neutrophils # (Auto) 7.3 1.8-7.8 X 10^3 Lymphocytes # (Auto) 1.3 1.0-4.0 X 10^3 Monocytes # (Auto) 0.8 0.0-1.0 X 10^3 Eosinophils # (Auto) 0.0 0.0-0.3 10^3/uL Basophils # (Auto) 0.1 0.0-0.1 10^3/uL Prothrombin Time 14.4 12.2-14.7 SEC INR Comment 1.1 0.8-1.4 Activated Partial Thromboplast Time 37 H 24-35 SEC Sodium Level 128 L 135-145 MMOL/L Potassium Level 3.3 L 3.6-5.0 MMOL/L Chloride Level 92 L 98-107 MMOL/L Carbon Dioxide Level 27 21-32 MMOL/L Anion Gap 9 5-14 MMOL/L Blood Urea Nitrogen 24 H 7-18 MG/DL Creatinine 3.63 H 0.60-1.30 MG/DL Estimat Glomerular Filtration Rate 13 BUN/Creatinine Ratio 7 Glucose Level 91 70-105 MG/DL Lactic Acid Level 0.93 0.50-2.00 MMOL/L Calcium Level 8.7 8.5-10.1 MG/DL Corrected Calcium 9.7 8.5-10.1 MG/DL Total Bilirubin 1.3 H 0.1-1.0 MG/DL Aspartate Amino Transf (AST/SGOT) 55 H 5-34 U/L Alanine Aminotransferase (ALT/SGPT) 60 H 0-55 U/L Alkaline Phosphatase 228 H 40-136 U/L B-Type Natriuretic Peptide 50591.7 H <100.0 PG/ML Total Protein 6.6 6.4-8.2 GM/DL Albumin 2.8 L 3.2-4.5 GM/DL Micro Results Microbiology 07/22/18 Influenza Types A,B Antigen (MARIA VICTORIA) - Final, Complete My Orders Orders - JOSHUA CHOI MD Cbc With Automated Diff (07/22/18 12:21) Comprehensive Metabolic Panel (07/22/18 12:21) Blood Culture (07/22/18 12:21) Sputum Culture (07/22/18 12:21) Urinalysis (07/22/18 12:21) Urine Culture (07/22/18 12:21) Protime With Inr (07/22/18 12:21) Partial Thromboplastin Time (07/22/18 12:21) Chest 1 View, Ap/Pa Only (07/22/18 12:21) Saline Lock/Iv-Start (07/22/18 12:21) Ekg Tracing (07/22/18 12:21) Vital Signs Adult Sepsis Patie Q15M (07/22/18 12:21) O2 (07/22/18 12:21) Remove Rings In Anticipation O (07/22/18 12:21) Lactic Acid Analyzer (07/22/18 12:21) Influenza A And B Antigens (07/22/18 12:21) BNP (07/22/18 12:21) Ct Head Wo (07/22/18 13:41) Vital Signs/I&O 07/22/18 12:07 Temp 97.2 Pulse 83 Resp 20 B/P (MAP) 122/79 (93) Pulse Ox 97 O2 Delivery Nasal Cannula O2 Flow Rate 3.00 Capillary Refill : Progress Note : Progress Note Seen and evaluated. IV, labs, EKG, chest x-ray, UA, blood cultures and lactic acid ordered. We will go ahead and repeat influenza screen given her presentation back. Monitor patient. Influenza B-positive. We did try to get patient into dialysis here today at [facility] and they are unable to get her in today. Unable to determine when she would build again and other than her next scheduled appointment. Patient does need dialysis sooner than that. There is also a concerns about her confusion state. We did get CT of the head which does not show any acute findings. Patient typically is transferred to [facility] in [facility]. I did attempt transfer there at 1523. They are on diversion and had no beds available anywhere in the hospital. Initiated transfer proceedings with [facility] in [place], [place]. I did discuss this with their hospitalist and then ultimately there ER doctor at 1540. She is accepted by Dr. Muñiz into the emergency department for ER to ER transfer due to fall last night. We will cloud the films to their system for the CT and chest x-ray. Patient did receive Tamiflu this weekend and her next dose would normally be after dialysis if it is opted to continue due to her influenza B- positive status currently. She did have influenza A last week. She did receive Tamiflu through the weekend. UA still has not been obtained. 1600: UA obtained via straight catheter and that this is pending. There was some concern that she was on blood thinner but it was found she is actually not on a blood thinner. Patient to go to [facility] emergency Department via [facility] which has been called. ECG Initial ECG Impression Date: Jul 22, 2018 Initial ECG Impression Time: 12:30 Initial ECG Rate: 80 Initial ECG Rhythm: Normal Sinus Comment Sinus rhythm with left axis deviation. No evidence of ST elevation KS. First- degree AV block. Similar to previous on 06/13/18. Lead to not well defined on this EKG. Interpreted by me. Diagnostic Imaging Diagonstic Imaging: Xray Plain Films/CT/US/NM/MRI: chest Comments [facility]. [place], [place] NAME: WYATT KULKARNI [facility] REC#: [id number] PT STATUS: REG ER : 1960 PHYSICIAN: JOSHUA CHOI MD ADMIT DATE: 07/22/18/ER Draft Date of Exam:07/22/18 CHEST 1 VIEW, AP/PA ONLY INDICATION: Fall with increasing weakness and confusion. TIME OF EXAM: 12:48 p.m. COMPARISON: Correlation is made with prior study from 07/13/2018. FINDINGS: The heart is enlarged but stable. Cardiac defibrillator and right-sided dialysis line remain in place. There are congestive changes in both lungs. No parenchymal consolidation is seen. No effusion or pneumothorax is seen. IMPRESSION: Cardiomegaly and central congestive changes. No other significant abnormality is seen. Dictated on workstation # [id number] Dict: 07/22/18 1309 Trans: 07/22/18 1315 [id number] Interpreted by: RONI HERNANDEZ MD Electronically signed by: Departure Impression Primary Impression: Volume overload Qualified Codes: E87.70 - Fluid overload, unspecified Additional Impressions: End stage renal disease on dialysis Influenza B Disposition: XFER SHT-TRM HOSP Condition: Stable Transfer Time Spoke to Accepting Phy: 15:40 Transfer Facility: [place], [place], Dr. Muñiz accepting Method of Transfer: EMS Departure-Patient Inst. Referrals: TEAGAN VERNON MD (PCP/Family) Primary Care Physician JOSHUA CHOI MD Jul 22, 2018 12:48
[2018-07-22 12:57] LABS: INR 1.1 (0.8-1.4); PROTHROMBIN TIME PATIENT 14.4 SEC (12.2-14.7)
[2018-07-22 13:00] LABS: ALBUMIN 2.8 GM/DL (3.2-4.5); BILIRUBIN,TOTAL 1.3 MG/DL (0.1-1.0); CALCIUM 8.7 MG/DL (8.5-10.1); CREATININE SERUM 3.63 MG/DL (0.60-1.30); POTASSIUM 3.3 MMOL/L (3.6-5.0); TOTAL PROTEIN 6.6 GM/DL (6.4-8.2)
--- NOTE | 2018-07-22 13:15 | Diagnostic Imaging Report ---
INDICATION: Fall with increasing weakness and confusion. TIME OF EXAM: 12:48 p.m. COMPARISON: Correlation is made with prior study from 07/13/2018. FINDINGS: The heart is enlarged but stable. Cardiac defibrillator and right-sided dialysis line remain in place. There are congestive changes in both lungs. No parenchymal consolidation is seen. No effusion or pneumothorax is seen. IMPRESSION: Cardiomegaly and central congestive changes. No other significant abnormality is seen. Dictated by: Dictated on workstation # [id number]
--- NOTE | 2018-07-22 14:16 | Diagnostic Imaging Report ---
Clinical indication: Patient is post fall with confusion. Exam: Axial CT scan of the brain performed without IV contrast. Comparison: CT scan of the brain performed without IV contrast dated 06/17/2018. Findings: Is stable appearance of the brain parenchyma with no CT evidence of acute cerebral infarct, intracranial hemorrhage, brain herniation, or midline shift. There is no hydrocephalus. There is stable calvarial bony irregularity/deformity and thinning involving the left posterior aspect of the skull and small area of encephalomalacia involving the left posterior aspect of the cerebral hemisphere involving the left posterior frontal lobe and left parietal lobe. Basal cisterns are unremarkable. Besides the postop changes, the skull, intracranial soft tissue, and orbits are unremarkable. There is a moderate-sized mucus retention cyst in the left maxillary sinus which is not significantly changed. Impression: Stable CT scan of the brain with no evidence of interval acute intracranial process. Dictated by: Dictated on workstation # [id number]
--- NOTE | 2018-07-22 15:52 | NUR ---
[facility] NOTIFIED OR TRANSFER TO [facility]
[2018-07-22 16:01] LABS: BILIRUBIN,URINE 2+ (NEGATIVE); CLARITY,URINE CLEAR; COLOR,URINE YELLOW; GLUCOSE, URINE (UA) NEGATIVE (NEGATIVE); KETONES,URINE NEGATIVE (NEGATIVE); LEUKOCYTE ESTERASE ,URINE 1+ (NEGATIVE); NITRITE,URINE NEGATIVE (NEGATIVE); PH,URINE 5 (5-9); PROTEIN,URINE 3+ (NEGATIVE); UROBILINOGEN,URINE NORMAL (NORMAL)
[2018-07-22 16:27] LABS: BACTERIA,URINE TRACE /HPF; WBC,URINE 0-2 /HPF
[2018-07-22 16:28] LABS: YEAST,URINE FEW /HPF
[2018-07-22 16:56] VITALS: BP 117/64
== END 2018-07-22 16:56 | disposition short-term general hospital (02) ==
LOC: EDUNIT# 11:58 → ER 12:01
DX: E87.70 Fluid overload, unspecified (principal); J10.1 Influenza due to other identified influenza virus with other respiratory manifestations; I13.2 Hypertensive heart and chronic kidney disease with heart failure and with stage 5 chronic kidney disease, or end stage renal disease; N18.6 End stage renal disease; I50.9 Heart failure, unspecified; J44.9 Chronic obstructive pulmonary disease, unspecified; I42.9 Cardiomyopathy, unspecified; E78.00 Pure hypercholesterolemia, unspecified; I25.10 Atherosclerotic heart disease of native coronary artery without angina pectoris; G43.909 Migraine, unspecified, not intractable, without status migrainosus; I48.91 Unspecified atrial fibrillation; D64.9 Anemia, unspecified; E03.9 Hypothyroidism, unspecified; F41.9 Anxiety disorder, unspecified; F32.9 Major depressive disorder, single episode, unspecified; Z85.51 Personal history of malignant neoplasm of bladder; Z82.49 Family history of ischemic heart disease and other diseases of the circulatory system; Z80.8 Family history of malignant neoplasm of other organs or systems; Z80.7 Family history of other malignant neoplasms of lymphoid, hematopoietic and related tissues; Z87.891 Personal history of nicotine dependence; Z95.810 Presence of automatic (implantable) cardiac defibrillator; Z98.890 Other specified postprocedural states; Z90.710 Acquired absence of both cervix and uterus; Z87.01 Personal history of pneumonia (recurrent)
CPT/HCPCS: 36415; 70450; 71045; 80053; 81000; 83605; 83880; 85025; 85610; 85730; 87040; 87088; 87804; 93005

== ENCOUNTER 2018-09-04 08:39 | Inpatient (IN) | payer MEDICARE ==
[~2018-09-04] VITALS: Ht 144.8 cm; Wt 62.1 kg
[~2018-09-04 08:39] MED LIST changes: -CEPH500C; +CEPH500C PO; -MIDO10TA; +MIDO10TA PO; -RIVA15TA PO; +RIVA15TA2 PO; -SEVE800T13; +SEVE800T13 PO
[2018-09-04 09:26] LABS: BASOPHILS % (AUTO) 0 % (0-10); EOSINOPHILS % (AUTO) 0 % (0-10); HEMATOCRIT 32 % (35-52); HEMOGLOBIN 9.9 G/DL (11.5-16.0); LYMPHOCYTES # (AUTO) 0.4 X 10^3 (1.0-4.0); LYMPHOCYTES % (AUTO) 3 % (12-44); MEAN CORPUSCULAR HEMOGLOBIN 31 PG (25-34); MEAN CORPUSCULAR HGB CONC 31 G/DL (32-36); MEAN CORPUSCULAR VOLUME 100 FL (80-99); MEAN PLATELET VOLUME 12.3 FL (7.4-10.4); MONOCYTES # (AUTO) 0.7 X 10^3 (0.0-1.0); MONOCYTES % (AUTO) 6 % (0-12); NEUTROPHILS # (AUTO) 9.7 X 10^3 (1.8-7.8); NEUTROPHILS % (AUTO) 90 % (42-75); PLATELET COUNT 220 10^3/uL (130-400); RED CELL DISTRIBUTION WIDTH 18.4 % (10.0-14.5); WHITE BLOOD COUNT 10.8 10^3/uL (4.3-11.0)
--- NOTE | 2018-09-04 09:31 | ED Chest Pain ---
General Chief Complaint: Chest Pain Stated Complaint: THROWING UP AND CHEST PAINS Nursing Triage Note: pt c/o "throbbing" chest pain since yesterday afternoon accompanied with nausea , SOB, vomiting, and weakness. pt reports pain radiated to back yesterday but not today. Nursing Sepsis Screen: No Definite Risk Source: patient Exam Limitations: no limitations History of Present Illness Date Seen by Provider: Sep 04, 2018 Time Seen by Provider: 09:27 Initial Comments The patient is a 58-year-old white female who is chronically ill. She presents with a complaint of left-sided chest pain which began yesterday. She states she has a past history of congestive heart failure but otherwise is a vague historian. Timing/Duration: 24 hours Severity/Quality: mild, moderate Location: substernal, central Radiation: no radiation Associated Symptoms: nausea/vomiting Allergies and Home Medications Allergies Coded Allergies: propoxyphene napsylate (Unverified Allergy, Severe, SEVERE NAUSEA AND VOMITING , 04/03/13) meperidine (Unverified Allergy, Unknown, 12/19/14) venom-honey bee (Verified Allergy, Unknown, 09/19/13) lisinopril (Verified Adverse Reaction, Unknown, PT STATES "BOTTOMS OUT" HER BLOOD PRESSURE, 03/12/15) Patient states that it "bottoms out" her blood pressure. She will refuse to take this medication and reports it as an allergy. Home Medications Acetaminophen 500 Mg Tablet, 1,000 MG PO Q6H PRN for PAIN-MILD, (Reported) Albuterol Sulfate 1 Puff Puff, 2 PUFF IH Q6H PRN for SHORTNESS OF BREATH, ( Reported) Amiodarone HCl 200 Mg Tablet, 200 MG PO DAILY, (Reported) Bisacodyl 5 Mg Tablet.dr, 5 MG PO DAILY PRN for CONSTIPATION-4TH LINE, (Reported ) Carvedilol 6.25 Mg Tablet, 6.25 MG PO BID, (Reported) Cephalexin 500 Mg Capsule, 500 MG PO BID, (Reported) 2 DAY SUPPLY START DATE 09-03-18 EVENING DOSE AND END DATE 09-05-18 AM DOSE Docusate Sodium 100 Mg Tablet, 100 MG PO DAILY PRN for CONSTIPATION-1ST LINE, ( Reported) Ipratropium/Albuterol Sulfate 3 Ml Ampul.neb, 3 ML IH Q4H PRN for SHORTNESS OF BREATH, (Reported) Isosorbide Dinitrate 30 Mg Tablet, 15 MG PO BID, (Reported) TAKES 1/2 (30MG) TABLET Levothyroxine Sodium 25 Mcg Tablet, 25 MCG PO DAILY, (Reported) Loperamide HCl 2 Mg Capsule, 2 MG PO Q6H PRN for DIARRHEA, (Reported) Lorazepam 0.5 Mg Tablet, 0.5 MG PO HS, (Reported) Mag Hydrox/Al Hydrox/Simeth 30 Ml Oral.susp, 30 ML PO Q4H PRN for INDIGESTION, ( Reported) Midodrine HCl 10 Mg Tablet, 10 MG PO DAILY, (Reported) Multivitamins-Min/FA/Ginkgo 1 Each Tablet, 1 TAB PO DAILY, (Reported) Ondansetron HCl 4 Mg Tablet, 4 MG PO Q6H PRN for NAUSEA/VOMITING-1ST LINE, ( Reported) Oxycodone HCl 5 Mg Tablet, 5 MG PO Q6H PRN for PAIN-SEVERE, (Reported) Polyethylene Glycol 3350 17 Gm Powd.pack, 17 GM PO Q8H PRN for CONSTIPATION-2ND LINE, (Reported) Sertraline HCl 100 Mg Tablet, 100 MG PO HS, (Reported) Patient Home Medication List Home Medication List Reviewed: Yes Review of Systems Review of Systems Constitutional: see HPI EENTM: No Symptoms Reported Respiratory: See HPI, Orthopnea, Shortness of Air, SOA With Exertion Gastrointestinal: No Symptoms Reported Genitourinary: No Symptoms Reported Musculoskeletal: no symptoms reported Skin: no symptoms reported Psychiatric/Neurological: No Symptoms Reported Endocrine: No Symptoms Reported Past Fninmek-Opraem-Zoduiw Hx Patient Social History Alcohol Use: Denies Use Recreational Drug Use: No Drug of Choice: THC USE IN PAST Type Used: Cigarettes Former Smoker, Quit: Jul 09, 2017 2nd Hand Smoke Exposure: No Recent Foreign Travel: No Contact w/Someone Who Travel: No Recent Infectious Disease Expo: No Recent Hopitalizations: Yes Immunizations Up To Date Tetanus Booster (TDap): Unknown PED Vaccines UTD: No Date of Pneumonia Vaccine: Mar 30, 2013 Date of Influenza Vaccine: Jul 11, 2017 Seasonal Allergies Seasonal Allergies: Yes Past Medical History Surgeries: Yes Dialysis, Hysterectomy Respiratory: Yes Pneumonia, Sleep Apnea, COPD Currently Using CPAP: No Currently Using BIPAP: Yes Cardiac: Yes (CHF) Atrial Fibrillation, Cardiomyopathy, Chronic Edema/Swelling, Coronary Artery Disease, High Cholesterol, Hypertension Neurological: Yes Headaches /Migraines 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 Disorders: Yes (Hysterectomy) 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 Sexually Transmitted Disease: No HIV/AIDS: No Genitourinary: Yes Renal Failure Gastrointestinal: Yes Gastroesophageal Reflux Musculoskeletal: No Arthritis Endocrine: No Hypothyroidsim HEENT: No Cataract Loss of Vision: Denies Hearing Impairment: Denies Cancer: No Bladder Psychosocial: No Sleep Difficulties, Anxiety, Depression Integumentary: Yes (pt has cellulitis bilaterally on lower legs x 3 weeks) Recent Skin Changes Blood Disorders: Yes (ANEMIA) Adverse Reaction/Blood Tranf: No Family Medical History Cancer 19 FATHER (HODGKINS ) 19 MOTHER (BRAIN TUMOR ) Congenital heart disease 19 MOTHER Congestive heart failure 19 MOTHER Family history: Cardiovascular disease 19 MOTHER G8 SISTER G8 SISTER Family history: Hypertension 19 MOTHER G8 SISTER G8 SISTER Heart disease 19 MOTHER G8 SISTER G8 SISTER History of - respiratory disease 19 MOTHER G8 BROTHER G8 SISTER Heart Disease, Cancer, Hypertension Physical Exam Vital Signs Capillary Refill : Less Than 3 Seconds Height, Weight, BMI Height: 4'9.00" Weight: 134lbs. 0oz. 60.860425rd; 34.6 BMI Method:Stated General Appearance: Chronically ill, Moderate Distress HEENT: Normal ENT Inspection Neck: Normal Inspection Respiratory: Decreased Breath Sounds (tachypnea and rhonchi) Cardiovascular: Regular Rate, Rhythm, No Edema, No Gallop, No JVD, No Murmur, Normal Peripheral Pulses Rectal: Tenderness (diffuse tenderness) Extremity: Normal Capillary Refill, Normal Inspection, Normal Range of Motion, Non Tender, No Calf Tenderness, No Pedal Edema Neurologic/Psychiatric: Alert, Oriented x3, No Motor/Sensory Deficits, Normal Mood/Affect Skin: Normal Color, Warm/Dry Procedures/Interventions Date of ETT Placement: Aug 20, 2017 Time of ETT Placement: 628 Progress/Results/Core Measures Results/Orders Lab Results Laboratory Tests Test 09/04/18 09:10 Range/Units White Blood Count 10.8 4.3-11.0 10^3/uL Red Blood Count 3.20 L 4.35-5.85 10^6/uL Hemoglobin 9.9 L 11.5-16.0 G/DL Hematocrit 32 L 35-52 % Mean Corpuscular Volume 100 H 80-99 FL Mean Corpuscular Hemoglobin 31 25-34 PG Mean Corpuscular Hemoglobin Concent 31 L 32-36 G/DL Red Cell Distribution Width 18.4 H 10.0-14.5 % Platelet Count 220 130-400 10^3/uL Mean Platelet Volume 12.3 H 7.4-10.4 FL Neutrophils (%) (Auto) 90 H 42-75 % Lymphocytes (%) (Auto) 3 L 12-44 % Monocytes (%) (Auto) 6 0-12 % Eosinophils (%) (Auto) 0 0-10 % Basophils (%) (Auto) 0 0-10 % Neutrophils # (Auto) 9.7 H 1.8-7.8 X 10^3 Lymphocytes # (Auto) 0.4 L 1.0-4.0 X 10^3 Monocytes # (Auto) 0.7 0.0-1.0 X 10^3 Eosinophils # (Auto) 0.0 0.0-0.3 10^3/uL Basophils # (Auto) 0.0 0.0-0.1 10^3/uL Neutrophils % (Manual) 89 % Lymphocytes % (Manual) 5 % Monocytes % (Manual) 6 % Clumped Platelets OCCASIONAL Polychromasia SLIGHT Hypochromasia SLIGHT Poikilocytosis SLIGHT Anisocytosis SLIGHT Macrocytosis SLIGHT Sodium Level 134 L 135-145 MMOL/L Potassium Level 4.2 3.6-5.0 MMOL/L Chloride Level 101 98-107 MMOL/L Carbon Dioxide Level 23 21-32 MMOL/L Anion Gap 10 5-14 MMOL/L Blood Urea Nitrogen 19 H 7-18 MG/DL Creatinine 3.27 H 0.60-1.30 MG/DL Estimat Glomerular Filtration Rate 15 BUN/Creatinine Ratio 6 Glucose Level 105 70-105 MG/DL Calcium Level 9.1 8.5-10.1 MG/DL Corrected Calcium 10.1 8.5-10.1 MG/DL Total Bilirubin 0.7 0.1-1.0 MG/DL Aspartate Amino Transf (AST/SGOT) 93 H 5-34 U/L Alanine Aminotransferase (ALT/SGPT) 29 0-55 U/L Alkaline Phosphatase 177 H 40-136 U/L Troponin I 0.266 H <0.028 NG/ML Total Protein 7.0 6.4-8.2 GM/DL Albumin 2.7 L 3.2-4.5 GM/DL My Orders Orders - KOMAL DONNELLY MD Cbc With Automated Diff (09/04/18 09:18) Comprehensive Metabolic Panel (09/04/18 09:18) Troponin I (09/04/18 09:18) Manual Differential (09/04/18 09:10) Chest 1 View, Ap/Pa Only (09/04/18 10:36) Communication For Respiratory (09/04/18 11:30) Vital Signs/I&O Blood Pressure Mean: 101 Departure Communication (Admissions) Discussed with Dr. Rubio. The patient will be admitted for treatment of congestive failure Impression Primary Impression: Acute on chronic systolic CHF (congestive heart failure) Additional Impression: congestive heart failure Disposition: ADMITTED INPATIENT Condition: Stable/Unchanged Admissions Decision to Admit Reason: Admit from ER (General) Decision to Admit/Date: Sep 04, 2018 Time/Decision to Admit Time: 11:33 Departure-Patient Inst. Referrals: TEAGAN VERNON MD (PCP/Family) Primary Care Physician KOMAL DONNELLY MD Sep 04, 2018 09:30
[2018-09-04 09:38] LABS: ALBUMIN 2.7 GM/DL (3.2-4.5); BILIRUBIN,TOTAL 0.7 MG/DL (0.1-1.0); CALCIUM 9.1 MG/DL (8.5-10.1); CREATININE SERUM 3.27 MG/DL (0.60-1.30); POTASSIUM 4.2 MMOL/L (3.6-5.0)
[2018-09-04 09:47] LABS: HYPOCHROMASIA SLIGHT; LYMPHOCYTES % (MANUAL) 5 %; MONOCYTES % (MANUAL) 6 %; NEUTROPHILS % (MANUAL) 89 %; PLATELET CLUMPS OCCASIONAL; POIKILOCYTOSIS SLIGHT; POLYCHROMASIA SLIGHT
[2018-09-04 09:48] LABS: ANISOCYTOSIS SLIGHT
--- NOTE | 2018-09-04 11:21 | Diagnostic Imaging Report ---
CLINICAL INDICATION: Patient complains of throbbing chest pain since yesterday afternoon accompanied with nausea, shortness of breath, vomiting and weakness. Patient reports pain radiating to back yesterday but none today. EXAM: Portable chest x-ray upright view. COMPARISONS: Chest x-ray dated 07/22/2018. FINDINGS: Again seen cardiomegaly which appears to have slightly progressed compared to the prior study. There is mild pulmonary vascular congestion which has minimally progressed. There is interval progression of consolidation of the left lung base with left hemidiaphragm obscured. Remainder of the lungs are clear. Vascular access catheter is again seen overlying right chest. Cardiac pacemaker/AICD is seen, stable. Bones show no significant interval abnormality. IMPRESSION: 1: There is cardiomegaly which appears to have slightly progressed with mild pulmonary vascular congestion which has minimally progressed. These findings may be related to congestive heart failure/increased volume status. 2: There is progression of left lung base consolidation which may represent atelectasis versus infiltrate. Superimposed left pleural effusion may also be present. Dictated by: Dictated on workstation # [id number]
[2018-09-04] MEDS ORDERED: RT-ALBUTEROL/IPRATROPIUM 3 ML (DUONEB) VIAL INH ONE (12:45)
--- NOTE | 2018-09-04 13:10 | NUR ---
WYATT KULKARNI admitted to room CU4-1, with an admitting diagnosis of CHF/COPD/RENAL FAIL, on 09/04/18 from ER via [facility], accompanied by STAFF.WYATT KULKARNI introduced to surroundings, call light, bed controls, phone, TV, temperature control, lights, meal times, smoking policy, visitor policy, side rail policy, bathrooms and showers. Patient Rights given to patient in the handbook. WYATT KULKARNI verbalizes understanding that [facility] is not responsible for the loss or damage to any personal effects or valuables that are kept in the patients posession during their hospitalization. The following Patient Care Plans were discussed with the PT: Discharge Planning, IMPAIRED GAS EXCHANGE,FLUID VOLUME EXCESS, and KNOWLEDGE DEFICIT. WYATT KULKARNI verbalizes understanding of Interdisciplinary Patient Education. Patient and family were informed about the Rapid Response Team and its purpose.
[2018-09-04 13:30] VITALS: BP 127/82
[2018-09-04] MEDS ORDERED: CATHETER FLUSH 10 ML SYR IV PRN (13:30)
[2018-09-04] MEDS ORDERED: FUROSEMIDE 40 MG/4 ML INJ (LASIX) IV NR (13:30)
--- NOTE | 2018-09-04 13:37 | NUR ---
DR CHARLES NOTIFIED OF CONSULT.
[2018-09-04 13:45] VITALS: BP 125/76
--- NOTE | 2018-09-04 13:45 | NUR ---
DR YANG UPDATED ON PT'S CONDITION AND INFORMED THAT PT WAS TO RECEIVE DIALYSIS TODAY PRIOR TO ADMIT.
[2018-09-04 14:00] VITALS: BP 127/80
[2018-09-04] MEDS ORDERED: CATHETER FLUSH 10 ML SYR IV SCH (14:00)
--- NOTE | 2018-09-04 14:00 | NUR ---
PT'S DAUGHTER REQUESTING TRANSFER TO [facility] FOR DIALYSIS, DR YANG INFORMED.
--- NOTE | 2018-09-04 14:15 | NUR ---
PER DR YANG, [facility] ACCEPTS PT. TRANSFER PENDING. PT AND DAUGHTER UPDATED AND VERBALIZE UNDERSTANDING.
[2018-09-04] MEDS ORDERED: MAG30ORA2 PO (14:49)
[2018-09-04] MEDS ORDERED: CARV6.252 PO (14:49)
[2018-09-04] MEDS ORDERED: POLY17PO6 PO (14:49)
[2018-09-04] MEDS ORDERED: ONDA4TAB10 PO (14:49)
[2018-09-04] MEDS ORDERED: DOCU100T2 PO (14:49)
[2018-09-04] MEDS ORDERED: RT-ALBUINH IH (14:49)
[2018-09-04] MEDS ORDERED: BISA5TAB8 PO (14:49)
[2018-09-04] MEDS ORDERED: ISOS30TA8 PO (14:49)
[2018-09-04] MEDS ORDERED: FERR325T18 PO (14:55)
[2018-09-04 15:00] VITALS: BP 129/82
--- NOTE | 2018-09-04 15:08 | NUR ---
UPDATED [facility] REC WITH MAR FROM [facility]. THEY VERIFIED THE IRON AND SEVELAMER (RENVELA) ARE CURRENTLY ON HOLD UNTIL OTHERWISE INFORMED BY DIALYSIS. I LEFT THEM ON THE MED REC BUT MARKED THAT HELD. 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
--- NOTE | 2018-09-04 15:25 | NUR ---
REPORT GIVEN TO NAFISA THOMAS AT [facility]. PT TO GO TO ROOM 585-1 AT [facility]. BOTH PT AND DAUGHTER UPDATED.
--- NOTE | 2018-09-04 16:05 | NUR ---
PT LEFT VIA [facility] FOR [facility]. PERSONAL BELONGINGS W/ PT. [facility] CONTACTED AND WILL HAND MOLDER WC AND HOME O2.
--- NOTE | 2018-09-24 14:33 | Short Stay Summary ---
History of Present Illness History of Present Illness Reason for visit/HPI Patient family requested transfer to [place] before seen by me due to being on dialysis and patient was accepted in transfer. Date of Admission Sep 04, 2018 at 12:29 Date of Discharge Sep 04, 2018 at 16:00 Time Seen by Provider: 16:00 (Not seen by me due to transfer) Attending Physician Cally Rubio MD Admitting Physician Lalita Dubose MD Consult Allergies and Home Medications Allergies Coded Allergies: propoxyphene napsylate (Unverified Allergy, Severe, SEVERE NAUSEA AND VOMITING , 04/03/13) meperidine (Unverified Allergy, Unknown, 12/19/14) venom-honey bee (Verified Allergy, Unknown, 09/19/13) lisinopril (Verified Adverse Reaction, Unknown, PT STATES "BOTTOMS OUT" HER BLOOD PRESSURE, 03/12/15) Patient states that it "bottoms out" her blood pressure. She will refuse to take this medication and reports it as an allergy. Home Medications Acetaminophen 500 Mg Tablet, 1,000 MG PO Q6H PRN for PAIN-MILD, (Reported) Albuterol Sulfate 1 Puff Puff, 2 PUFF IH Q6H PRN for SHORTNESS OF BREATH, ( Reported) Amiodarone HCl 200 Mg Tablet, 200 MG PO DAILY, (Reported) Bisacodyl 5 Mg Tablet.dr, 5 MG PO DAILY PRN for CONSTIPATION-4TH LINE, (Reported ) Carvedilol 6.25 Mg Tablet, 6.25 MG PO BID, (Reported) Cephalexin 500 Mg Capsule, 500 MG PO BID, (Reported) 2 DAY SUPPLY START DATE 09-03-18 EVENING DOSE AND END DATE 09-05-18 AM DOSE Docusate Sodium 100 Mg Tablet, 100 MG PO DAILY PRN for CONSTIPATION-1ST LINE, ( Reported) Ipratropium/Albuterol Sulfate 3 Ml Ampul.neb, 3 ML IH Q4H PRN for SHORTNESS OF BREATH, (Reported) Isosorbide Dinitrate 30 Mg Tablet, 15 MG PO BID, (Reported) TAKES 1/2 (30MG) TABLET Levothyroxine Sodium 25 Mcg Tablet, 25 MCG PO DAILY, (Reported) Loperamide HCl 2 Mg Capsule, 2 MG PO Q6H PRN for DIARRHEA, (Reported) Lorazepam 0.5 Mg Tablet, 0.5 MG PO HS, (Reported) Mag Hydrox/Al Hydrox/Simeth 30 Ml Oral.susp, 30 ML PO Q4H PRN for INDIGESTION, ( Reported) Midodrine HCl 10 Mg Tablet, 10 MG PO DAILY, (Reported) Multivitamins-Min/FA/Ginkgo 1 Each Tablet, 1 TAB PO DAILY, (Reported) Ondansetron HCl 4 Mg Tablet, 4 MG PO Q6H PRN for NAUSEA/VOMITING-1ST LINE, ( Reported) Oxycodone HCl 5 Mg Tablet, 5 MG PO Q6H PRN for PAIN-SEVERE, (Reported) Polyethylene Glycol 3350 17 Gm Powd.pack, 17 GM PO Q8H PRN for CONSTIPATION-2ND LINE, (Reported) Sertraline HCl 100 Mg Tablet, 100 MG PO HS, (Reported) Patient Home Medication List Home Medication List Reviewed: No Past Ilpauqu-Ukbdlt-Fjezhj Hx Patient Social History Alcohol Use: Denies Use Recreational Drug Use: No Drug of Choice: THC USE IN PAST Former Smoker, Quit: Jul 09, 2017 Type Used: Cigarettes 2nd Hand Smoke Exposure: No Recent Foreign Travel: No Contact w/other who traveled: No Recent Hopitalizations: Yes Recent Infectious Disease Expo: No Immunizations Up To Date Tetanus Booster (TDap): Unknown Pediatric: No Date of Pneumonia Vaccine: Mar 30, 2013 Date of Influenza Vaccine: Mar 30, 2018 Seasonal Allergies Seasonal Allergies: Yes Surgeries Yes Dialysis, Hysterectomy Respiratory Yes Chronic Bronchitis, COPD, Emphysema, Pneumonia Currently Using CPAP: No Currently Using BIPAP: Yes Cardiovascular Yes (CHF) Atrial Fibrillation, Cardiomyopathy, Chronic Edema/Swelling, Coronary Artery Disease, High Cholesterol, Hypertension Neurological Yes Headaches /Migraines 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 System Hx 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 Disorders: Yes (Hysterectomy) Sexually Transmitted Disease: No HIV/AIDS: No 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 Genitourinary Yes Renal Failure Gastrointestinal Yes Gastroesophageal Reflux Musculoskeletal No Arthritis Endocrine History of Endocrine Disorders: No Endocrine Disorders: Hypothyroidsim HEENT History of HEENT Disorders: No HEENT Disorders: Cataract Loss of Vision: Denies Hearing Impairment: Denies Cancer No Bladder Psychosocial History of Psychiatric Problem: No Behavioral Health Disorders: Sleep Difficulties, Anxiety, Depression Integumentary History of Skin or Integumenta: Yes (pt has cellulitis bilaterally on lower legs x 3 weeks) Skin/Integumentary Disorders: Recent Skin Changes Blood Transfusions History of Blood Disorders: Yes (ANEMIA) Adverse Reaction to a Blood Tr: No Family Medical History Significant Family History: Heart Disease, Cancer, Hypertension Family Hx: Cancer 19 FATHER (HODGKINS ) 19 MOTHER (BRAIN TUMOR ) Congenital heart disease 19 MOTHER Congestive heart failure 19 MOTHER Family history: Cardiovascular disease 19 MOTHER G8 SISTER G8 SISTER Family history: Hypertension 19 MOTHER G8 SISTER G8 SISTER Heart disease 19 MOTHER G8 SISTER G8 SISTER History of - respiratory disease 19 MOTHER G8 BROTHER G8 SISTER Review of Systems Constitutional: other (unable to obtain) Physical Exam Vital Signs Capillary Refill : Less Than 3 Seconds Height, Weight, BMI Height: 4'9.00" Weight: 137lbs. 0.1oz. 62.510005za; 29.7 BMI Method:Stated General Appearance: Other (Not seen prior to transfer) Clinical Quality Measures DVT/VTE Risk/Contraindication: Risk Factor Score Per Nursin RFS Level Per Nursing on Admit: 4+=Very High Short Stay Diagnosis Discharge Diagnosis-Short Stay Admission Diagnosis: Chest pain Final Discharge Diagnosis: Acute on chronic CHF Chronic renal failure on dialysis Conclusion Conclusion/Plan Transferred to OSH for dialysis capabilities per family request. CALLY RUBIO MD Sep 24, 2018 14:33
== END 2018-09-04 16:00 | disposition short-term general hospital (02) | DRG 291 ==
LOC: EDUNIT# 08:39 → ER 08:42 → ICU 12:29
PROVIDERS: ADMIT Family Medicine; ATTEND Family Medicine
DX: I13.2 Hypertensive heart and chronic kidney disease with heart failure and with stage 5 chronic kidney disease, or end stage renal disease (principal); I50.23 Acute on chronic systolic (congestive) heart failure; N18.6 End stage renal disease; L03.115 Cellulitis of right lower limb; L03.116 Cellulitis of left lower limb; J43.9 Emphysema, unspecified; I48.91 Unspecified atrial fibrillation; I42.9 Cardiomyopathy, unspecified; I25.10 Atherosclerotic heart disease of native coronary artery without angina pectoris; G47.30 Sleep apnea, unspecified; K21.9 Gastro-esophageal reflux disease without esophagitis; E03.9 Hypothyroidism, unspecified; F41.9 Anxiety disorder, unspecified; F32.9 Major depressive disorder, single episode, unspecified; E78.00 Pure hypercholesterolemia, unspecified; M19.90 Unspecified osteoarthritis, unspecified site; Z87.891 Personal history of nicotine dependence
CPT/HCPCS: 36415; 71045; 80053; 84484; 85007; 85027; 93005; 94640

== ENCOUNTER 2018-09-21 03:09 | Emergency (ER) | payer MEDICARE ==
[~2018-09-21] VITALS: Ht 144.8 cm; Wt 54.4 kg
[~2018-09-21 03:09] MED LIST changes: +BISA5TAB8 PO; +DOCU100T2 PO; +FERR325T18 PO; +ISOS30TA8 PO; +MAG30ORA2 PO; +ONDA4TAB10 PO; +POLY17PO6 PO; +RIVA15TA PO; -RIVA15TA2 PO
[2018-09-21] MEDS ORDERED: methylPREDNISolone 125 MG (Solu-MEDROL) VIAL IV STA (03:11)
--- NOTE | 2018-09-21 03:21 | ED Respiratory ---
General Chief Complaint: Respiratory Problems Stated Complaint: SOB Nursing Triage Note: Pt to ED via [facility] from [facility]. Pt reports increasing SOA over last few hours. Rojelio tx in progress upon arrival to ED. Pt receives dialysis MWF from [facility] here in town. Source: patient (LIMITED HISTORIAN), EMS, detention records, old records History of Present Illness Date Seen by Provider: Sep 21, 2018 Time Seen by Provider: 03:10 Initial Comments [facility] PT HAS HAD SHORTNESS OF BREATH FOR THE LAST FEW HOURS--PT WITH ROJELIO IN PROGRESS ON EMS ARRIVAL --INITIATED BY EMS HAS HAD A PRODUCTIVE COUGH FOR A FEW DAYS PT STATES SHE HAD A FEVER "OF A 100 SOMETHING" EARLIER THIS EVENING C/O CHEST PAIN -RATES "9" PT HAS COPD, IN ADDITION TO CHF/FLUID OVERLOAD--PT HAS ESRD AND RECEIVES DIALYSIS [id number]. DENIES ANY MISSED SESSIONS--IS DUE LATER TODAY ( FRIDAY ) PT NORMALLY WEARS O2 AT 4 L/NC AND BRINGS HER OWN CPAP/BIPAP MACHINE WITH HER PT HAS MILD SWELLING TO LEGS--NORMAL FOR HER PT WITH MULTITUDE OF VISITS--NEARLY ALL FOR THIS SAME COMPLAINT 18 VISITS HERE SINCE 06/2017. LAST VISIT 09/04/18 FOR SAME PT HAD RIGHT RADIAL CARDIAC CATH A WEEK AGO, PT HAD LEFT AV FISTULA PLACE THIS WEEK ( RIGHT AV FISTULA FAILED ) AND PT CURRENTLY HAS RIGHT CENTRAL DIALYSIS LINE IN PLACE PCP:DR. 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 GONZALEZ AT [facility]: DR. DANGELO Allergies and Home Medications Allergies Coded Allergies: propoxyphene napsylate (Unverified Allergy, Severe, SEVERE NAUSEA AND VOMITING , 04/03/13) meperidine (Unverified Allergy, Unknown, 12/19/14) venom-honey bee (Verified Allergy, Unknown, 09/19/13) lisinopril (Verified Adverse Reaction, Unknown, PT STATES "BOTTOMS OUT" HER BLOOD PRESSURE, 03/12/15) Patient states that it "bottoms out" her blood pressure. She will refuse to take this medication and reports it as an allergy. Home Medications Acetaminophen 500 Mg Tablet, 1,000 MG PO Q6H PRN for PAIN-MILD, (Reported) Albuterol Sulfate 1 Puff Puff, 2 PUFF IH Q6H PRN for SHORTNESS OF BREATH, ( Reported) Amiodarone HCl 200 Mg Tablet, 200 MG PO DAILY, (Reported) Bisacodyl 5 Mg Tablet.dr, 5 MG PO DAILY PRN for CONSTIPATION-4TH LINE, (Reported ) Carvedilol 6.25 Mg Tablet, 6.25 MG PO BID, (Reported) Cephalexin 500 Mg Capsule, 500 MG PO BID, (Reported) 2 DAY SUPPLY START DATE 09-03-18 EVENING DOSE AND END DATE 09-05-18 AM DOSE Docusate Sodium 100 Mg Tablet, 100 MG PO DAILY PRN for CONSTIPATION-1ST LINE, ( Reported) Ipratropium/Albuterol Sulfate 3 Ml Ampul.neb, 3 ML IH Q4H PRN for SHORTNESS OF BREATH, (Reported) Isosorbide Dinitrate 30 Mg Tablet, 15 MG PO BID, (Reported) TAKES 1/2 (30MG) TABLET Levothyroxine Sodium 25 Mcg Tablet, 25 MCG PO DAILY, (Reported) Loperamide HCl 2 Mg Capsule, 2 MG PO Q6H PRN for DIARRHEA, (Reported) Lorazepam 0.5 Mg Tablet, 0.5 MG PO HS, (Reported) Mag Hydrox/Al Hydrox/Simeth 30 Ml Oral.susp, 30 ML PO Q4H PRN for INDIGESTION, ( Reported) Midodrine HCl 10 Mg Tablet, 10 MG PO DAILY, (Reported) Multivitamins-Min/FA/Ginkgo 1 Each Tablet, 1 TAB PO DAILY, (Reported) Ondansetron HCl 4 Mg Tablet, 4 MG PO Q6H PRN for NAUSEA/VOMITING-1ST LINE, ( Reported) Oxycodone HCl 5 Mg Tablet, 5 MG PO Q6H PRN for PAIN-SEVERE, (Reported) Polyethylene Glycol 3350 17 Gm Powd.pack, 17 GM PO Q8H PRN for CONSTIPATION-2ND LINE, (Reported) Sertraline HCl 100 Mg Tablet, 100 MG PO HS, (Reported) Patient Home Medication List Home Medication List Reviewed: Yes Review of Systems Review of Systems Constitutional: see HPI, fever, weakness EENTM: no symptoms reported Respiratory: see HPI, cough, orthopnea, phlegm, short of breath, wheezing Cardiovascular: see HPI, chest pain, edema Gastrointestinal: no symptoms reported Genitourinary: see HPI Musculoskeletal: no symptoms reported Skin: no symptoms reported Psychiatric/Neurological: No Symptoms Reported Hematologic/Lymphatic: No Symptoms Reported Immunological/Allergic: no symptoms reported Past Zzmupzz-Kmoonk-Rmdgts Hx Patient Social History Alcohol Use: Denies Use Recreational Drug Use: Yes (THC USE IN PAST) Drug of Choice: THC USE IN PAST Smoking Status: Former Smoker Type Used: Cigarettes Former Smoker, Quit: Jul 09, 2017 2nd Hand Smoke Exposure: No Recent Foreign Travel: No Contact w/Someone Who Travel: No Recent Infectious Disease Expo: No Recent Hopitalizations: Yes Immunizations Up To Date Tetanus Booster (TDap): Unknown PED Vaccines UTD: No Date of Pneumonia Vaccine: Mar 30, 2013 Date of Influenza Vaccine: Mar 30, 2018 Seasonal Allergies Seasonal Allergies: Yes Past Medical History Surgeries: Yes (CARDIAC CATHS--NO INTERVENTIONRIGHT CENTRAL DIALYSIS LINE; RIGHT AV FISTULA/DIALYSIS GRAFT-FAILED; LEFT AV DIALYSIS GRAFT / FISTULA PLACED 08/2018; ) Cardiac, Section, Defibrillator, Dialysis, Hysterectomy, Vascular Surgery Respiratory: Yes (CHRONIC RESPIRATORY FAILURE/HYPOXIA; CHF/PULMOMARY EDEMA; O2 AT 4L/NC CONTINUOUSLY) Asthma, Pneumonia, Sleep Apnea, COPD Currently Using CPAP: No Currently Using BIPAP: Yes Cardiac: Yes (CHF/PULMONARY EDEMA/FLUID OVERLOAD; EF 20% NON-ISCHEMIC ; HX OF LEFT ATRIAL THROMBUS; ) Atrial Fibrillation, Cardiomyopathy, Chronic Edema/Swelling, Coronary Artery Disease, High Cholesterol, Hypertension Neurological: Yes Headaches /Migraines 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 Disorders: Yes (Hysterectomy) 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 Disorders: 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, 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 Sexually Transmitted Disease: No HIV/AIDS: No Genitourinary: Yes (ESRD ON DIALYSIS --STILL MAKES A LITTLE URINE, BUT NOT EVERY DAY) Renal Failure, Dialysis, UTI-Chronic Gastrointestinal: Yes (HX OF ELEVATED LFT'S) Gastroesophageal Reflux, Liver Disease/Jaundice, Hiatal Hernia Musculoskeletal: Yes (CHRONIC GENERALIZED PAIN AND WEAKNESS; FREQUENT FALLS/ POOR MOBILITY/POOR COORDINATION) Arthritis Endocrine: Yes Hypothyroidsim HEENT: Yes Cataract Loss of Vision: Denies Hearing Impairment: Denies Cancer: No Psychosocial: Yes Sleep Difficulties, Anxiety, Depression Integumentary: Yes (CHRONIC SORES FROM CONSTANT "PICKING" ) Blood Disorders: Yes (ANEMIA) Adverse Reaction/Blood Tranf: No Family Medical History Cancer 19 FATHER (HODGKINS ) 19 MOTHER (BRAIN TUMOR ) Congenital heart disease 19 MOTHER Congestive heart failure 19 MOTHER Family history: Cardiovascular disease 19 MOTHER G8 SISTER G8 SISTER Family history: Hypertension 19 MOTHER G8 SISTER G8 SISTER Heart disease 19 MOTHER G8 SISTER G8 SISTER History of - respiratory disease 19 MOTHER G8 BROTHER G8 SISTER Heart Disease, Cancer, Hypertension Physical Exam Vital Signs - First Documented 09/21/18 09/21/18 03:12 03:22 Temp 98.8 Pulse 84 Resp 18 Pulse Ox 100 O2 Delivery Nasal Cannula O2 Flow Rate 10.00 Capillary Refill : Less Than 3 Seconds Height: 4'9.00" Weight: 120lbs. 0.1oz. 54.112353ev; 29.7 BMI Method:Stated General Appearance: mild distress, thin, other (TALKS IN FULL SENTENCES) HEENT: PERRL/EOMI, other (BILATERAL PERIORBITAL EDEMA AND MILD EXOPHTHALMOS) Respiratory: accessory muscle use, rales, other (FREQUENT MOIST COUGH, MILDLY DYSPNEIC, DIFFUSE MOIST RALES BILATERALLY) Cardiovascular: regular rate, rhythm, no murmur, JVD, other (RIGHT CENTRAL DIALYSIS LINE; DEFIBRILLATOR LEFT CHEST) Gastrointestinal: non tender, soft Extremities: normal range of motion, non-tender, no calf tenderness, normal capillary refill, pedal edema (TRACE ON LEFT), other (DRESSING TO LEFT ARM FROM RECENT SURGERY FOR AV FISTULA/DIALYSIS GRAFT; OLD RIGHT AV FISTULA/DIALYSIS GRAFT. 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 NO OBVIOUS EVIDENCE OF INFECTION AT THIS TIME. ) Procedures/Interventions Date of ETT Placement: Aug 20, 2017 Time of ETT Placement: [phone] Progress/Results/Core Measures Suspected Sepsis Recent Fever Within 48 Hours: No Infection Criteria Present: Suspected New Infection New/Unexplained Altered Menta: No Sepsis Screen: No Definite Risk SIRS Temperature:98.8 Pulse: 84 Respiratory Rate: 18 Laboratory Tests 09/21/18 03:28: White Blood Count 9.3 Blood Pressure / Mean: Laboratory Tests 09/21/18 03:28: Creatinine 3.79H, INR Comment 1.1, Platelet Count 224, Total Bilirubin 0.8 Results/Orders Lab Results Laboratory Tests Test 09/21/18 03:28 09/21/18 03:45 Range/Units White Blood Count 9.3 4.3-11.0 10^3/uL Red Blood Count 2.83 L 4.35-5.85 10^6/uL Hemoglobin 8.7 L 11.5-16.0 G/DL Hematocrit 27 L 35-52 % Mean Corpuscular Volume 96 80-99 FL Mean Corpuscular Hemoglobin 31 25-34 PG Mean Corpuscular Hemoglobin Concent 32 32-36 G/DL Red Cell Distribution Width 17.0 H 10.0-14.5 % Platelet Count 224 130-400 10^3/uL Mean Platelet Volume 12.3 H 7.4-10.4 FL Neutrophils (%) (Auto) 79 H 42-75 % Lymphocytes (%) (Auto) 10 L 12-44 % Monocytes (%) (Auto) 10 0-12 % Eosinophils (%) (Auto) 0 0-10 % Basophils (%) (Auto) 1 0-10 % Neutrophils # (Auto) 7.3 1.8-7.8 X 10^3 Lymphocytes # (Auto) 0.9 L 1.0-4.0 X 10^3 Monocytes # (Auto) 0.9 0.0-1.0 X 10^3 Eosinophils # (Auto) 0.0 0.0-0.3 10^3/uL Basophils # (Auto) 0.1 0.0-0.1 10^3/uL Prothrombin Time 14.7 12.2-14.7 SEC INR Comment 1.1 0.8-1.4 Activated Partial Thromboplast Time 42 H 24-35 SEC Sodium Level 131 L 135-145 MMOL/L Potassium Level 4.0 3.6-5.0 MMOL/L Chloride Level 95 L 98-107 MMOL/L Carbon Dioxide Level 22 21-32 MMOL/L Anion Gap 14 5-14 MMOL/L Blood Urea Nitrogen 24 H 7-18 MG/DL Creatinine 3.79 H 0.60-1.30 MG/DL Estimat Glomerular Filtration Rate 12 BUN/Creatinine Ratio 6 Glucose Level 87 70-105 MG/DL Calcium Level 8.6 8.5-10.1 MG/DL Corrected Calcium 9.5 8.5-10.1 MG/DL Magnesium Level 1.6 L 1.8-2.4 MG/DL Total Bilirubin 0.8 0.1-1.0 MG/DL Aspartate Amino Transf (AST/SGOT) 35 H 5-34 U/L Alanine Aminotransferase (ALT/SGPT) 13 0-55 U/L Alkaline Phosphatase 203 H 40-136 U/L Total Creatine Kinase 9 L 29-168 U/L Creatine Kinase MB 1.5 <6.6 NG/ML Troponin I 0.059 H <0.028 NG/ML Total Protein 6.5 6.4-8.2 GM/DL Albumin 2.9 L 3.2-4.5 GM/DL Blood Gas Puncture Site RIGHT RADIAL Blood Gas Patient Temperature 98.8 Arterial Blood pH 7.30 *L 7.37-7.43 Arterial Blood Partial Pressure CO2 58 H 35-45 MMHG Arterial Blood Partial Pressure O2 54 L 79-93 MMHG Arterial Blood HCO3 27 23-27 MMOL/L Arterial Blood Total CO2 29.2 21.0-31.0 MMOL/L Arterial Blood Oxygen Saturation 83 L 94-100 % Arterial Blood Base Excess 1.6 -2.5-2.5 MMOL/L Hank Test YES-POS Blood Gas Ventilator Setting NO Blood Gas Inspired Oxygen 4L Micro Results Microbiology 09/21/18 Influenza Types A,B Antigen (MARIA VICTORIA) - Final, Complete My Orders Orders - YANE WAKEFIELD DO Chest 1 View, Ap/Pa Only (09/21/18 03:11) Arterial Blood Gas (09/21/18 03:11) Cbc With Automated Diff (09/21/18 03:11) Comprehensive Metabolic Panel (09/21/18 03:11) Creatine Kinase (09/21/18 03:11) Creatine Kinase Mb (09/21/18 03:11) Magnesium (09/21/18 03:11) Protime With Inr (09/21/18 03:11) Partial Thromboplastin Time (09/21/18 03:11) Troponin I (09/21/18 03:11) Blood Culture (09/21/18 03:11) Influenza A And B Antigens (09/21/18 03:11) Methylprednisolone Sod Succ (Solu-Medrol (09/21/18 03:11) Ekg Tracing (09/21/18 03:11) O2 (09/21/18 03:11) Monitor-Rhythm Ecg Trace Only (09/21/18 03:11) Arterial Blood Draw (09/21/18 03:45) Ceftriaxone For Iv Use (Rocephin For I (09/21/18 04:30) Medications Given in ED Current Medications Medications Dose Ordered Sig/Cade Route Start Time Stop Time Status Last Admin Dose Admin Ceftriaxone Sodium 1000 mg/ Sterile Water 10 ml @ 200 mls/hr ONCE ONCE IV 09/21/18 04:30 09/21/18 04:41 DC 09/21/18 04:49 200 MLS/HR Vital Signs/I&O 09/21/18 09/21/18 09/21/18 03:12 03:22 04:13 Temp 98.8 Pulse 84 77 Resp 18 15 B/P (MAP) Pulse Ox 100 100 99 O2 Delivery Nasal Cannula O2 Flow Rate 10.00 4.00 50.00 Capillary Refill : Less Than 3 Seconds Progress Note : Progress Note PT IS MORE ALERT/LESS LETHARGIC AND IS MORE CONVERSIVE AFTER NEB TREATMENT COMPLETE AFTER RECEIVING ABG RESULTS, BIPAP WAS INITIATED LUNG SOUNDS IMPROVED AFTER NEB TREATMENT AND BIPAP NO DETERIORATION IN PT'S CONDITION DURING ER STAY PT DID NOT COMPLAIN OF CHEST PAIN OR SHORTNESS OF BREATH AT ANY OTHER TIME DURING ER STAY ECG Initial ECG Impression Date: Sep 21, 2018 Initial ECG Impression Time: 03:22 Initial ECG Rate: 83 Initial ECG Rhythm: Normal Sinus Initial ECG Impression: Nonspecific Changes (IVCD; OLD ANTERIOR INFARCT/Q-WAVES ) Initial ECG Comparisson: Unchanged Diagnostic Imaging Comments CXR--CARDIOMEGALY/CHF-FLUID OVERLOAD, PENDING RADIOLOGIST REVIEW Reviewed: Reviewed by [facility] Departure Communication (Admissions) [id number]--CALLED [facility] DR. ASH [phone]--SPOKE WITH DR. ASH, ACCEPTS PT FOR ADMIT/TRANSFER Impression Primary Impression: Acute on chronic respiratory failure with hypoxia and hypercapnia Additional Impressions: CHF (congestive heart failure) COPD (chronic obstructive pulmonary disease) ESRD (end stage renal disease) on dialysis Diabetes mellitus with ESRD (end-stage renal disease) Elevated troponin Disposition: SHT-TRM HOSP Condition: Improved Departure-Patient Inst. Referrals: TEAGAN VERNON MD (PCP/Family) Primary Care Physician YANE WAKEFIELD DO Sep 21, 2018 03:21
--- NOTE | 2018-09-21 03:35 | NUR ---
unable to draw blood culture from IV. PCT to room for peripheral blood draw. pt refusing any sticks in hand and unable to use L arm due to fistula placement.
[2018-09-21 03:44] LABS: BASOPHILS # (AUTO) 0.1 10^3/uL (0.0-0.1); BASOPHILS % (AUTO) 1 % (0-10); EOSINOPHILS % (AUTO) 0 % (0-10); HEMATOCRIT 27 % (35-52); HEMOGLOBIN 8.7 G/DL (11.5-16.0); LYMPHOCYTES # (AUTO) 0.9 X 10^3 (1.0-4.0); LYMPHOCYTES % (AUTO) 10 % (12-44); MEAN CORPUSCULAR HEMOGLOBIN 31 PG (25-34); MEAN CORPUSCULAR HGB CONC 32 G/DL (32-36); MEAN CORPUSCULAR VOLUME 96 FL (80-99); MEAN PLATELET VOLUME 12.3 FL (7.4-10.4); MONOCYTES # (AUTO) 0.9 X 10^3 (0.0-1.0); MONOCYTES % (AUTO) 10 % (0-12); NEUTROPHILS # (AUTO) 7.3 X 10^3 (1.8-7.8); NEUTROPHILS % (AUTO) 79 % (42-75); PLATELET COUNT 224 10^3/uL (130-400); WHITE BLOOD COUNT 9.3 10^3/uL (4.3-11.0)
[2018-09-21 03:57] LABS: ABG BASE EXCESS 1.6 MMOL/L (-2.5-2.5); ABG OXYGEN SATURATION 83 % (94-100); ABG PCO2 58 MMHG (35-45); ABG PO2 54 MMHG (79-93); ABG TCO2 29.2 MMOL/L (21.0-31.0)
[2018-09-21 04:00] LABS: ALLENS TEST YES-POS; INSPIRED O2 4L; PATIENT TEMP 98.8; VENTILATOR NO
[2018-09-21 04:02] LABS: INR 1.1 (0.8-1.4); PROTHROMBIN TIME PATIENT 14.7 SEC (12.2-14.7)
[2018-09-21 04:09] LABS: ALBUMIN 2.9 GM/DL (3.2-4.5); BILIRUBIN,TOTAL 0.8 MG/DL (0.1-1.0); CALCIUM 8.6 MG/DL (8.5-10.1); CREATININE SERUM 3.79 MG/DL (0.60-1.30); MAGNESIUM 1.6 MG/DL (1.8-2.4); TOTAL PROTEIN 6.5 GM/DL (6.4-8.2)
[2018-09-21 04:13] VITALS: BP 94/67
[2018-09-21 04:18] LABS: CREATINE KINASE MB 1.5 NG/ML (<6.6)
[2018-09-21] MEDS ORDERED: cefTRIAXone FOR IV USE 1,000 MG in WATER (STERILE) FOR INJECTION 10 ML IV ONE (04:30)
--- NOTE | 2018-09-21 05:15 | NUR ---
Current bipap settings 15/8, rate 12, 50% o2.
[2018-09-21 05:45] VITALS: BP 110/60
--- NOTE | 2018-09-21 07:23 | Diagnostic Imaging Report ---
INDICATION: Shortness of air. TECHNIQUE: Single view chest 3:54 AM. CORRELATION STUDY: 09/04/2018 FINDINGS: Left-sided AICD and right IJ dialysis catheter remains in place. Unchanged cardiac enlargement. Pulmonary vascular congestion and edema is present but appears slightly less severe from prior study. The lungs are clear with no consolidating infiltrate. There is no significant effusion or pneumothorax. IMPRESSION: 1. Findings of congestive heart failure but overall slightly less severe from prior study. Dictated by: Dictated on workstation # [id number]
== END 2018-09-21 05:45 | disposition short-term general hospital (02) ==
LOC: EDUNIT# 03:09 → ER 03:10
DX: J96.22 Acute and chronic respiratory failure with hypercapnia (principal); J96.21 Acute and chronic respiratory failure with hypoxia; E11.22 Type 2 diabetes mellitus with diabetic chronic kidney disease; I13.2 Hypertensive heart and chronic kidney disease with heart failure and with stage 5 chronic kidney disease, or end stage renal disease; N18.6 End stage renal disease; I50.9 Heart failure, unspecified; R79.89 Other specified abnormal findings of blood chemistry; J44.9 Chronic obstructive pulmonary disease, unspecified; I48.91 Unspecified atrial fibrillation; I42.9 Cardiomyopathy, unspecified; I25.10 Atherosclerotic heart disease of native coronary artery without angina pectoris; E78.00 Pure hypercholesterolemia, unspecified; E03.9 Hypothyroidism, unspecified; F41.9 Anxiety disorder, unspecified; F32.9 Major depressive disorder, single episode, unspecified; D64.9 Anemia, unspecified; K21.9 Gastro-esophageal reflux disease without esophagitis; G43.909 Migraine, unspecified, not intractable, without status migrainosus; Z87.440 Personal history of urinary (tract) infections; Z82.49 Family history of ischemic heart disease and other diseases of the circulatory system; Z87.19 Personal history of other diseases of the digestive system; Z79.51 Long term (current) use of inhaled steroids; Z99.2 Dependence on renal dialysis; Z88.8 Allergy status to other drugs, medicaments and biological substances; Z87.891 Personal history of nicotine dependence; Z87.01 Personal history of pneumonia (recurrent); Z98.890 Other specified postprocedural states; Z90.710 Acquired absence of both cervix and uterus; Z95.810 Presence of automatic (implantable) cardiac defibrillator; Z99.81 Dependence on supplemental oxygen
CPT/HCPCS: 36415; 36600; 71045; 80053; 82550; 82553; 82805; 83735; 84484; 85025; 85610; 85730; 87804; 93005; 93041

== ENCOUNTER 2018-10-04 14:31 | Emergency (ER) | payer MEDICARE ==
[~2018-10-04] VITALS: Ht 144.8 cm; Wt 56.2 kg
[~2018-10-04 14:31] MED LIST changes: -RIVA15TA PO; +RIVA15TA2 PO
[2018-10-04] MEDS ORDERED: RT-ALBUTEROL/IPRATROPIUM 3 ML (DUONEB) VIAL INH ONE ×2 (14:45→15:00)
[2018-10-04 14:49] LABS: BASOPHILS % (AUTO) 0 % (0-10); EOSINOPHILS % (AUTO) 0 % (0-10); HEMATOCRIT 29 % (35-52); HEMOGLOBIN 9.2 G/DL (11.5-16.0); LYMPHOCYTES # (AUTO) 0.6 X 10^3 (1.0-4.0); LYMPHOCYTES % (AUTO) 6 % (12-44); MEAN CORPUSCULAR HEMOGLOBIN 31 PG (25-34); MEAN CORPUSCULAR HGB CONC 32 G/DL (32-36); MEAN CORPUSCULAR VOLUME 96 FL (80-99); MEAN PLATELET VOLUME 12.1 FL (7.4-10.4); MONOCYTES # (AUTO) 1.5 X 10^3 (0.0-1.0); MONOCYTES % (AUTO) 14 % (0-12); NEUTROPHILS # (AUTO) 8.8 X 10^3 (1.8-7.8); NEUTROPHILS % (AUTO) 80 % (42-75); PLATELET COUNT 190 10^3/uL (130-400); RED CELL DISTRIBUTION WIDTH 18.3 % (10.0-14.5); WHITE BLOOD COUNT 10.9 10^3/uL (4.3-11.0)
[2018-10-04] MEDS ORDERED: RT-ALBUTEROL SULF 2.5 MG/3 ML PRE-MIX VIAL ONE (14:56)
[2018-10-04] MEDS ORDERED: RT-ALBUTEROL SULF 2.5 MG/3 ML PRE-MIX VIAL INH STA (14:59)
[2018-10-04 15:09] LABS: ALBUMIN 3.1 GM/DL (3.2-4.5); BILIRUBIN,TOTAL 1.2 MG/DL (0.1-1.0); CALCIUM 8.8 MG/DL (8.5-10.1); CREATININE SERUM 3.34 MG/DL (0.60-1.30); POTASSIUM 5.1 MMOL/L (3.6-5.0); TOTAL PROTEIN 6.5 GM/DL (6.4-8.2)
[2018-10-04 15:16] LABS: BAND NEUTROPHILS 0 %; HYPOCHROMASIA MARKED; LYMPHOCYTES % (MANUAL) 6 %; MONOCYTES % (MANUAL) 14 %; NEUTROPHILS % (MANUAL) 80 %
[2018-10-04 15:17] LABS: ANISOCYTOSIS MARKED
--- NOTE | 2018-10-04 15:29 | ED General ---
General Chief Complaint: Fever-Adult/Adol Stated Complaint: FEVER Nursing Triage Note: PT TO ER PER EMS. C/O FEVER STARTING AT NOON TODAY WITH INCREASED SOA. PT HAS BEEN TREATED FOR PNEUMONIA RECENTLY. Nursing Sepsis Screen: Possible Sepsis Risk Source of Information: Patient, Penitentiary Records, Old Records Exam Limitations: No Limitations History of Present Illness Date Seen by Provider: Oct 04, 2018 Time Seen by Provider: 14:33 Initial Comments This 58-year-old woman is brought [facility] the emergency room [facility] for reasons of fever and shortness of breath. She has been hospitalized twice in the last month for respiratory failure, CHF, and reportedly pneumonia. She had a temperature of 101 at the [facility] per EMS report. She received a nebulizer treatment at noon but is still very tight and wheezy. Temperature on arrival is 99.6. She has end-stage renal failure and is on dialysis. She is alert and oriented at this time. PCP:DR. [id number] FITNESS STUDIES TEACHER: DR. GONZALEZ AT [facility]: DR. DANGELO Allergies and Home Medications Allergies Coded Allergies: propoxyphene napsylate (Unverified Allergy, Severe, SEVERE NAUSEA AND VOMITING , 04/03/13) meperidine (Unverified Allergy, Unknown, 12/19/14) venom-honey bee (Verified Allergy, Unknown, 09/19/13) lisinopril (Verified Adverse Reaction, Unknown, PT STATES "BOTTOMS OUT" HER BLOOD PRESSURE, 03/12/15) Patient states that it "bottoms out" her blood pressure. She will refuse to take this medication and reports it as an allergy. Home Medications Acetaminophen 500 Mg Tablet, 1,000 MG PO Q6H PRN for PAIN-MILD, (Reported) Albuterol Sulfate 1 Puff Puff, 2 PUFF IH Q6H PRN for SHORTNESS OF BREATH, ( Reported) Amiodarone HCl 200 Mg Tablet, 200 MG PO DAILY, (Reported) Bisacodyl 5 Mg Tablet.dr, 5 MG PO DAILY PRN for CONSTIPATION-4TH LINE, (Reported ) Carvedilol 6.25 Mg Tablet, 6.25 MG PO BID, (Reported) Cephalexin 500 Mg Capsule, 500 MG PO BID, (Reported) 2 DAY SUPPLY START DATE 09-03-18 EVENING DOSE AND END DATE 3-9-19 AM DOSE Docusate Sodium 100 Mg Tablet, 100 MG PO DAILY PRN for CONSTIPATION-1ST LINE, ( Reported) Ipratropium/Albuterol Sulfate 3 Ml Ampul.neb, 3 ML IH Q4H PRN for SHORTNESS OF BREATH, (Reported) Isosorbide Dinitrate 30 Mg Tablet, 15 MG PO BID, (Reported) TAKES 1/2 (30MG) TABLET Levothyroxine Sodium 25 Mcg Tablet, 25 MCG PO DAILY, (Reported) Loperamide HCl 2 Mg Capsule, 2 MG PO Q6H PRN for DIARRHEA, (Reported) Lorazepam 0.5 Mg Tablet, 0.5 MG PO HS, (Reported) Mag Hydrox/Al Hydrox/Simeth 30 Ml Oral.susp, 30 ML PO Q4H PRN for INDIGESTION, ( Reported) Midodrine HCl 10 Mg Tablet, 10 MG PO DAILY, (Reported) Multivitamins-Min/FA/Ginkgo 1 Each Tablet, 1 TAB PO DAILY, (Reported) Ondansetron HCl 4 Mg Tablet, 4 MG PO Q6H PRN for NAUSEA/VOMITING-1ST LINE, ( Reported) Oxycodone HCl 5 Mg Tablet, 5 MG PO Q6H PRN for PAIN-SEVERE, (Reported) Polyethylene Glycol 3350 17 Gm Powd.pack, 17 GM PO Q8H PRN for CONSTIPATION-2ND LINE, (Reported) Sertraline HCl 100 Mg Tablet, 100 MG PO HS, (Reported) Patient Home Medication List Home Medication List Reviewed: Yes Review of Systems Review of Systems Constitutional: see HPI EENTM: no symptoms reported Respiratory: see HPI Cardiovascular: no symptoms reported Gastrointestinal: no symptoms reported Genitourinary: see HPI : No Musculoskeletal: no symptoms reported Skin: no symptoms reported Psychiatric/Neurological: No Symptoms Reported Hematologic/Lymphatic: No Symptoms Reported Immunological/Allergic: no symptoms reported Past Drisqsr-Lwnnwu-Ftpoeg Hx Past Med/Social Hx: Reviewed Nursing Past Med/Soc Hx Patient Social History Alcohol Use: Denies Use Recreational Drug Use: Yes (SEE ABOVE) Drug of Choice: THC USE IN PAST Smoking Status: Former Smoker Type Used: Cigarettes Former Smoker, Quit: Jul 09, 2017 2nd Hand Smoke Exposure: No Recent Foreign Travel: No Contact w/Someone Who Travel: No Recent Infectious Disease Expo: No Recent Hopitalizations: Yes Immunizations Up To Date Tetanus Booster (TDap): Unknown PED Vaccines UTD: No Date of Pneumonia Vaccine: Mar 30, 2013 Date of Influenza Vaccine: Mar 30, 2018 Seasonal Allergies Seasonal Allergies: Yes Past Medical History Surgeries: Yes Cardiac, Section, Defibrillator, Dialysis, Hysterectomy, Vascular Surgery Respiratory: Yes Asthma, Pneumonia, Sleep Apnea, COPD Currently Using CPAP: No Currently Using BIPAP: Yes Cardiac: Yes Atrial Fibrillation, Cardiomyopathy, Chronic Edema/Swelling, Coronary Artery Disease, High Cholesterol, Hypertension Neurological: Yes Headaches /Migraines 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 Disorders: Yes (Hysterectomy) 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 Disorders: Denies 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: Hysterectomy, Menopausal Sexually Transmitted Disease: No HIV/AIDS: No Genitourinary: Yes (ESRD ON DIALYSIS H-C-Z--STILL MAKES A LITTLE URINE, BUT NOT EVERY DAY) Renal Failure, Dialysis, UTI-Chronic Gastrointestinal: Yes (HX OF ELEVATED LFT'S) Gastroesophageal Reflux, Liver Disease/Jaundice, Hiatal Hernia Musculoskeletal: Yes Arthritis Endocrine: Yes Hypothyroidsim HEENT: Yes Cataract Loss of Vision: Denies Hearing Impairment: Denies Cancer: No Bladder Psychosocial: Yes Sleep Difficulties, Anxiety, Depression Integumentary: Yes (CHRONIC SORES FROM CONSTANT "PICKING" ) Recent Skin Changes Blood Disorders: Yes (ANEMIA) Adverse Reaction/Blood Tranf: No Family Medical History Cancer 19 FATHER (HODGKINS ) 19 MOTHER (BRAIN TUMOR ) Congenital heart disease 19 MOTHER Congestive heart failure 19 MOTHER Family history: Cardiovascular disease 19 MOTHER G8 SISTER G8 SISTER Family history: Hypertension 19 MOTHER G8 SISTER G8 SISTER Heart disease 19 MOTHER G8 SISTER G8 SISTER History of - respiratory disease 19 MOTHER G8 BROTHER G8 SISTER Heart Disease, Cancer, Hypertension Physical Exam-Suspected Sepsis Physical Exam Vital Signs Vital Signs - First Documented 10/04/18 14:35 Temp 99.6 Pulse 92 Resp 20 B/P (MAP) 122/66 (84) Pulse Ox 98 O2 Delivery Nasal Cannula O2 Flow Rate 2.00 Capillary Refill : Less Than 3 Seconds Blood Pressure Mean: 84 Height, Weight, BMI Height: 4'9.00" Weight: 124lbs. 0.1oz. [id number]; 29.7 BMI Method:Stated General Appearance: WD/WN, Mild Distress HEENT: PERRL/EOMI, Normal ENT Inspection Neck: Normal Inspection Respiratory: Accessory Muscle Use, Crackles (basilar), Wheezing (very tight with decreased air movement) Cardiovascular: Regular Rate, Rhythm, No Edema, No Murmur Extremity: Normal Inspection, No Pedal Edema Neurologic/Psychiatric: Alert, Oriented x3, No Motor/Sensory Deficits, Normal Mood/Affect, food scientist II-XII Norm as Tested Skin: normal color, warm/dry Focused Exam Lactate Level 10/04/18 14:38: Lactic Acid Level 1.15 Lactic Acid Level Procedures/Interventions Date of ETT Placement: Aug 20, 2017 Time of ETT Placement: 628 Progress/Results/Core Measures Suspected Sepsis Recent Fever Within 48 Hours: Yes Infection Criteria Present: Suspected New Infection New/Unexplained Altered Menta: No Sepsis Screen: Possible Sepsis Risk SIRS Temperature:99.6 Pulse: 92 Respiratory Rate: 20 Laboratory Tests 10/04/18 14:38: White Blood Count 10.9 Blood Pressure 122 /66 Mean: 84 10/04/18 14:38: Lactic Acid Level 1.15 Laboratory Tests 10/04/18 14:38: Creatinine 3.34H, INR Comment 1.2, Platelet Count 190, Total Bilirubin 1.2H Results/Orders Lab Results Laboratory Tests Test 10/04/18 14:38 10/04/18 15:33 10/04/18 15:45 Range/Units White Blood Count 10.9 4.3-11.0 10^3/uL Red Blood Count 2.99 L 4.35-5.85 10^6/uL Hemoglobin 9.2 L 11.5-16.0 G/DL Hematocrit 29 L 35-52 % Mean Corpuscular Volume 96 80-99 FL Mean Corpuscular Hemoglobin 31 25-34 PG Mean Corpuscular Hemoglobin Concent 32 32-36 G/DL Red Cell Distribution Width 18.3 H 10.0-14.5 % Platelet Count 190 130-400 10^3/uL Mean Platelet Volume 12.1 H 7.4-10.4 FL Neutrophils (%) (Auto) 80 H 42-75 % Lymphocytes (%) (Auto) 6 L 12-44 % Monocytes (%) (Auto) 14 H 0-12 % Eosinophils (%) (Auto) 0 0-10 % Basophils (%) (Auto) 0 0-10 % Neutrophils # (Auto) 8.8 H 1.8-7.8 X 10^3 Lymphocytes # (Auto) 0.6 L 1.0-4.0 X 10^3 Monocytes # (Auto) 1.5 H 0.0-1.0 X 10^3 Eosinophils # (Auto) 0.0 0.0-0.3 10^3/uL Basophils # (Auto) 0.0 0.0-0.1 10^3/uL Neutrophils % (Manual) 80 % Lymphocytes % (Manual) 6 % Monocytes % (Manual) 14 % Band Neutrophils 0 % Hypochromasia MARKED Anisocytosis MARKED Prothrombin Time 15.5 H 12.2-14.7 SEC INR Comment 1.2 0.8-1.4 Activated Partial Thromboplast Time 47 H 24-35 SEC Sodium Level 125 *L 135-145 MMOL/L Potassium Level 5.1 H 3.6-5.0 MMOL/L Chloride Level 91 L 98-107 MMOL/L Carbon Dioxide Level 23 21-32 MMOL/L Anion Gap 11 5-14 MMOL/L Blood Urea Nitrogen 26 H 7-18 MG/DL Creatinine 3.34 H 0.60-1.30 MG/DL Estimat Glomerular Filtration Rate 14 BUN/Creatinine Ratio 8 Glucose Level 95 70-105 MG/DL Lactic Acid Level 1.15 0.50-2.00 MMOL/L Calcium Level 8.8 8.5-10.1 MG/DL Corrected Calcium 9.5 8.5-10.1 MG/DL Total Bilirubin 1.2 H 0.1-1.0 MG/DL Aspartate Amino Transf (AST/SGOT) 52 H 5-34 U/L Alanine Aminotransferase (ALT/SGPT) 27 0-55 U/L Alkaline Phosphatase 162 H 40-136 U/L C-Reactive Protein High Sensitivity 14.44 H 0.00-0.50 MG/DL Total Protein 6.5 6.4-8.2 GM/DL Albumin 3.1 L 3.2-4.5 GM/DL Urine Color BROWN H Urine Clarity CLEAR Urine pH 5 5-9 Urine Specific Waggoner 1.010 L 1.016-1.022 Urine Protein 3+ H NEGATIVE Urine Glucose (UA) NEGATIVE NEGATIVE Urine Ketones 1+ H NEGATIVE Urine Nitrite POSITIVE H NEGATIVE Urine Bilirubin 2+ H NEGATIVE Urine Urobilinogen 1 NORMAL MG/DL Urine Leukocyte Esterase 2+ H NEGATIVE Urine RBC (Auto) 5+ H NEGATIVE Urine RBC 5-10 H /HPF Urine WBC 0-2 /HPF Urine Squamous Epithelial Cells 0-2 /HPF Urine Crystals NONE /LPF Urine Bacteria NEGATIVE /HPF Urine Casts NONE /LPF Urine Mucus NEGATIVE /LPF Urine Yeast MODERATE H /HPF Urine Culture Indicated CULTURE PENDING Blood Gas Puncture Site RIGHT RADIAL Blood Gas Patient Temperature 99.6 Arterial Blood pH 7.35 L 7.37-7.43 Arterial Blood Partial Pressure CO2 50 H 35-45 MMHG Arterial Blood Partial Pressure O2 85 79-93 MMHG Arterial Blood HCO3 27 23-27 MMOL/L Arterial Blood Total CO2 28.1 21.0-31.0 MMOL/L Arterial Blood Oxygen Saturation 97 94-100 % Arterial Blood Base Excess 1.8 -2.5-2.5 MMOL/L Hank Test POSITIVE Blood Gas Ventilator Setting NO Blood Gas Inspired Oxygen 2L Micro Results Microbiology 10/04/18 Influenza Types A,B Antigen (MARIA VICTORIA) - Final, Complete My Orders Orders - TOAN JOSE MD Cbc With Automated Diff (10/04/18 14:40) Comprehensive Metabolic Panel (10/04/18 14:40) Blood Culture (10/04/18 14:40) Urinalysis (10/04/18 14:40) Urine Culture (10/04/18 14:40) Protime With Inr (10/04/18 14:40) Partial Thromboplastin Time (10/04/18 14:40) Chest 1 View, Ap/Pa Only (10/04/18 14:40) Saline Lock/Iv-Start (10/04/18 14:40) Saline Lock/Iv-Start (10/04/18 14:40) Vital Signs Adult Sepsis Patie Q15M (10/04/18 14:40) O2 (10/04/18 14:40) Remove Rings In Anticipation O (10/04/18 14:40) Lactic Acid Analyzer (10/04/18 14:40) Influenza A And B Antigens (10/04/18 14:40) Hs C Reactive Protein (10/04/18 14:40) Albuterol/Ipra Inhalation Soln (Duoneb I (10/04/18 14:45) Svn Small Volume Nebulizer (10/04/18 14:40) Manual Differential (10/04/18 14:38) Albuterol Pre-Mix Nebs (Rt) (Proventil (10/04/18 14:59) Albuterol/Ipra Inhalation Soln (Duoneb I (10/04/18 15:00) Svn Small Volume Nebulizer (10/04/18 14:59) Svn Small Volume Nebulizer (10/04/18 14:59) Albuterol Pre-Mix Nebs (Rt) (Proventil (10/04/18 14:56) Methylprednisolone Sod Succ (Solu-Medrol (10/04/18 15:30) Arterial Blood Gas (10/04/18 15:36) Straight Cath For Spec.-Adult (10/04/18 15:37) Piperacillin/Tazobactam (Bulk) (Zosyn In (10/04/18 16:15) Medications Given in ED Vital Signs/I&O 10/05/18 00:00 Intake Total 110 ml Balance 110 ml Capillary Refill : Less Than 3 Seconds Blood Pressure Mean: 84 Progress Note #1: Time: 15:45 Progress Note Patient was febrile at the [facility]. Septic workup was pursued. Influenza screen was negative. She had a significantly elevated CRP. So far no source of infection has been identified. UA is pending. Solu-Medrol 125 mg has been ordered for treatment of COPD exacerbation. She was promptly given a DuoNeb treatment after auscultation of her chest. She was still very tight and wheezy after the initial treatment. An hour-long nebulizer treatment is now in progress. ABG is pending. We will start BiPAP. Patient sometimes uses BiPAP at home and required BiPAP during her last ER encounter. I anticipate transferring patient to [place] for respiratory failure as she is a dialysis patient. She is due for dialysis tomorrow. Progress Note #2: Time: 16:29 Progress Note No source of infection has been identified. However, patient asserts that she had pneumonia on her last admission to [facility]. I will therefore empirically treat with Zosyn 2.25 g at this time. Blood cultures are pending. ABG was obtained and PCO2 was 50. ABG was otherwise unremarkable. Patient is stable on BiPAP at this time. Progress Note #3: Time: 16:46 Progress Note Case was reviewed with Dr. Vitale at [facility]. He is agreeable to transfer. Patient is also agreeable. Diagnostic Imaging Diagonstic Imaging: Xray Plain Films/CT/US/NM/MRI: chest Comments Chest x-ray viewed by me and compared with prior. Report reviewed. See report below: NAME: WYATT KULKARNI [facility] REC#: [id number] PT STATUS: REG ER : 1960 PHYSICIAN: TOAN JOSE MD ADMIT DATE: 10/04/18/ER Draft Date of Exam:10/04/18 CHEST 1 VIEW, AP/PA ONLY INDICATION: Shortness of breath, fever. EXAMINATION: Portable erect AP chest at 3:07 p.m. FINDINGS: This exam is less than optimal as the patient is rotated. The cardiomegaly and the mild pulmonary congestion seen on the prior exam of 09/21/2018, are again evident and no different. As on the previous study the left hemidiaphragm is not well-visualized and there may be pneumonia/atelectasis and fluid involving the left lung base. This finding does not seem to have changed significantly, however. The left upper lung and right lung remain generally clear. The mediastinum is not widened. The osseous structures are intact. The left-sided defibrillator device and the triple lumen catheter on the right, noted previously, are unchanged in position. IMPRESSION: Allowing for the rotation of the patient, there has been no significant change since the prior exam. No new abnormality has developed. A followup study would be recommended for continued evaluation, however. Dictated on workstation # [id number] Dict: 10/04/18 1521 Trans: 10/04/18 1536 [facility] [id number] Interpreted by: EMMA LYON MD Departure Impression Primary Impression: acute COPD exacerbation Additional Impressions: Fever Qualified Codes: R50.9 - Fever, unspecified End stage renal failure on dialysis Hyponatremia Disposition: XFER SHT-TRM HOSP Condition: Improved Transfer Time Spoke to Accepting Phy: 16:45 Transfer Progress Notes [facility] Time: 18:30 Transfer Facility: [facility] Method of Transfer: EMS Departure-Patient Inst. Referrals: TEAGAN VERNON MD (PCP/Family) Primary Care Physician Copy Copies To 1: TEAGAN VERNON MD, JOSHUA T MD Oct 04, 2018 15:29
[2018-10-04] MEDS ORDERED: methylPREDNISolone 125 MG (Solu-MEDROL) VIAL IVP ONE (15:30)
--- NOTE | 2018-10-04 15:37 | Diagnostic Imaging Report ---
INDICATION: Shortness of breath, fever. EXAMINATION: Portable erect AP chest at 3:07 p.m. FINDINGS: This exam is less than optimal as the patient is rotated. The cardiomegaly and the mild pulmonary congestion seen on the prior exam of 09/21/2018, are again evident and no different. As on the previous study the left hemidiaphragm is not well-visualized and there may be pneumonia/atelectasis and fluid involving the left lung base. This finding does not seem to have changed significantly, however. The left upper lung and right lung remain generally clear. The mediastinum is not widened. The osseous structures are intact. The left-sided defibrillator device and the triple lumen catheter on the right, noted previously, are unchanged in position. IMPRESSION: Allowing for the rotation of the patient, there has been no significant change since the prior exam. No new abnormality has developed. A followup study would be recommended for continued evaluation, however. Dictated by: Dictated on workstation # [id number]
[2018-10-04 15:44] LABS: INR 1.2 (0.8-1.4); PROTHROMBIN TIME PATIENT 15.5 SEC (12.2-14.7)
[2018-10-04 15:47] VITALS: BP 106/57
[2018-10-04 15:48] LABS: CLARITY,URINE CLEAR; COLOR,URINE BROWN; GLUCOSE, URINE (UA) NEGATIVE (NEGATIVE); KETONES,URINE 1+ (NEGATIVE); LEUKOCYTE ESTERASE ,URINE 2+ (NEGATIVE); NITRITE,URINE POSITIVE (NEGATIVE); PH,URINE 5 (5-9); PROTEIN,URINE 3+ (NEGATIVE); UROBILINOGEN,URINE 1 MG/DL (NORMAL)
[2018-10-04 16:08] LABS: BACTERIA,URINE NEGATIVE /HPF; BILIRUBIN,URINE 2+ (NEGATIVE); SQUAMOUS EPITHELIAL CELL,UR 0-2 /HPF; WBC,URINE 0-2 /HPF
[2018-10-04 16:09] LABS: YEAST,URINE MODERATE /HPF
[2018-10-04] MEDS ORDERED: PIPERACILLIN/TAZOBACTAM (BULK) 2.25 GM in NS (IVPB) 100 ML IV ONE (16:15)
[2018-10-04 16:17] LABS: ABG BASE EXCESS 1.8 MMOL/L (-2.5-2.5); ABG OXYGEN SATURATION 97 % (94-100); ABG PCO2 50 MMHG (35-45); ABG PH 7.35 (7.37-7.43); ABG PO2 85 MMHG (79-93); ABG TCO2 28.1 MMOL/L (21.0-31.0)
[2018-10-04 16:19] LABS: ALLENS TEST POSITIVE; INSPIRED O2 2L; PATIENT TEMP 99.6; VENTILATOR NO
[2018-10-04 18:30] VITALS: BP 125/53
== END 2018-10-04 18:30 | disposition short-term general hospital (02) ==
LOC: EDUNIT# 14:31 → ER 14:33
DX: J44.1 Chronic obstructive pulmonary disease with (acute) exacerbation (principal); R50.9 Fever, unspecified; N18.6 End stage renal disease; I50.9 Heart failure, unspecified; E87.1 Hypo-osmolality and hyponatremia; G47.30 Sleep apnea, unspecified; I48.91 Unspecified atrial fibrillation; I42.9 Cardiomyopathy, unspecified; I25.10 Atherosclerotic heart disease of native coronary artery without angina pectoris; E78.00 Pure hypercholesterolemia, unspecified; I10 Essential (primary) hypertension; G43.909 Migraine, unspecified, not intractable, without status migrainosus; K21.9 Gastro-esophageal reflux disease without esophagitis; E03.9 Hypothyroidism, unspecified; F41.9 Anxiety disorder, unspecified; F32.9 Major depressive disorder, single episode, unspecified; D64.9 Anemia, unspecified; Z85.51 Personal history of malignant neoplasm of bladder; Z87.19 Personal history of other diseases of the digestive system; Z87.440 Personal history of urinary (tract) infections; Z80.8 Family history of malignant neoplasm of other organs or systems; Z82.49 Family history of ischemic heart disease and other diseases of the circulatory system; Z80.7 Family history of other malignant neoplasms of lymphoid, hematopoietic and related tissues; Z99.2 Dependence on renal dialysis; Z87.01 Personal history of pneumonia (recurrent); Z88.8 Allergy status to other drugs, medicaments and biological substances; Z87.891 Personal history of nicotine dependence; Z98.890 Other specified postprocedural states; Z95.810 Presence of automatic (implantable) cardiac defibrillator; Z90.710 Acquired absence of both cervix and uterus
CPT/HCPCS: 36415; 51701; 71045; 80053; 81000; 82805; 83605; 85007; 85027; 85610; 85730; 86141; 87040; 87088; 87804; 94640; 99291

== ENCOUNTER 2018-10-13 21:43 | Emergency (ER) | payer MEDICARE ==
[2018-10-13] MEDS ORDERED: methylPREDNISolone 125 MG (Solu-MEDROL) VIAL IV STA (21:52)
[2018-10-13] MEDS ORDERED: CEFEPIME INJECTION 1,000 MG in WATER (STERILE) FOR INJECTION 10 ML IV ONE (22:00)
[2018-10-13] MEDS ORDERED: DEXAMETHASONE 4 MG/ML SDV (DECADRON) IH ONE (22:00)
[2018-10-13 22:16] LABS: BASOPHILS % (AUTO) 0 % (0-10); EOSINOPHILS % (AUTO) 0 % (0-10); HEMATOCRIT 27 % (35-52); HEMOGLOBIN 8.6 G/DL (11.5-16.0); LYMPHOCYTES # (AUTO) 0.8 X 10^3 (1.0-4.0); LYMPHOCYTES % (AUTO) 9 % (12-44); MEAN CORPUSCULAR HEMOGLOBIN 31 PG (25-34); MEAN CORPUSCULAR HGB CONC 32 G/DL (32-36); MEAN CORPUSCULAR VOLUME 97 FL (80-99); MEAN PLATELET VOLUME 12.4 FL (7.4-10.4); MONOCYTES % (AUTO) 12 % (0-12); NEUTROPHILS # (AUTO) 6.7 X 10^3 (1.8-7.8); NEUTROPHILS % (AUTO) 78 % (42-75); PLATELET COUNT 270 10^3/uL (130-400); RED CELL DISTRIBUTION WIDTH 19.1 % (10.0-14.5); WHITE BLOOD COUNT 8.6 10^3/uL (4.3-11.0)
[2018-10-13 22:29] LABS: INR 1.3 (0.8-1.4); PROTHROMBIN TIME PATIENT 16.5 SEC (12.2-14.7)
[2018-10-13 22:38] LABS: ALANINE AMINOTRANSFERASE 22 U/L (0-55); ALBUMIN 3.1 GM/DL (3.2-4.5); ALKALINE PHOSPHATASE 158 U/L (40-136); BILIRUBIN,TOTAL 1.5 MG/DL (0.1-1.0); BUN/CREATININE RATIO 7; CALCIUM 8.3 MG/DL (8.5-10.1); CARBON DIOXIDE 20 MMOL/L (21-32); CHLORIDE 93 MMOL/L (98-107); CREATININE SERUM 2.42 MG/DL (0.60-1.30); GFR ESTIMATED 21; GLUCOSE 101 MG/DL (70-105); POTASSIUM 4.2 MMOL/L (3.6-5.0); SODIUM 128 MMOL/L (135-145); TOTAL PROTEIN 5.4 GM/DL (6.4-8.2)
[2018-10-13] MEDS ORDERED: OSELTAMIVIR 75 MG (TAMIFLU) CAPSULE PO ONE (22:45)
--- OUTSIDE RECORDS SUMMARY | 2018-10-13 22:45 | XMS REPORT ---
Author Author Migration, Doctor Organization [facility] Address Unknown Phone Unavailable Care Team Providers Care Log Hauler Name Role Phone Migration, Doctor Unavailable Unavailable PROBLEMS Type Condition ICD9-CM Code YOL31-ID Code Onset Dates Condition Status SNOMED Code Problem Chronic systolic heart failure I50.22 Active 853426126 Problem Essential hypertension I10 Active 62861773 Problem Anemia associated with chronic renal failure D63.1 Active 027661450 Problem Mild depression F32.0 Active 499681320 Problem Paroxysmal atrial fibrillation I48.0 Active 417854571 Problem Anxiety F41.9 Active 69064595 Problem Cardiomyopathy I42.9 Active 82447584 Problem Chronic obstructive pulmonary disease, unspecified J44.9 Active 19895819 Problem Acute on chronic systolic CHF (congestive heart failure) I50.23 Active 813021065 Problem Chronic kidney disease, stage IV (severe) N18.4 Active 097634528 Problem Psychophysiological insomnia F51.04 Active 755707956 Problem Gastroesophageal reflux disease without esophagitis K21.9 Active 705419231 Problem Chronic obstructive pulmonary disease with (acute) exacerbation J44.1 Active 934550560 Problem Supplemental oxygen dependent Z99.81 Active 722789873769 Problem Acquired hypothyroidism E03.9 Active 268334489 Problem Slow transit constipation K59.01 Active 74026413 Problem COPD with acute lower respiratory infection J44.0 Active 508915114 ALLERGIES No Information ENCOUNTERS Encounter Location Date Diagnosis [facility] [id number], [place] [address] Aug, [facility] [address], [place] [address] Aug, Psychophysiological insomnia F51.04 [facility] [address] [place] [id number] Jul, Cellulitis of left lower extremity L03.116 [facility] [id number], [place] [address] Jul, [facility] [id number] [place] [address] 75173- 4710 13 Jul, 2018 Viral upper respiratory infection J06.9 and Nausea R11.0 [facility] [id number] [place] [address] 00736- 9823 06 Jul, 2018 Psychophysiological insomnia F51.04 [facility] [id number] [place] [address] 00511- 3249 05 Jul, 2018 Psychophysiological insomnia F51.04 [facility] [id number] [place] [address] 46553- 6263 Jul, [facility] [id number] [place] [address] 07040- 9809 Jul, [facility] [id number] [place] [address] 36153- 2006 Jul, Psychophysiological insomnia F51.04 [facility] [id number] [place] [address] 06868- 7292 Jun, [facility] [id number] [place] [address] 75587- 4341 Jun, [facility] [id number] [place] [address] 34573- 2302 Jun, [facility] [id number] [place] [address] 85503- 1622 Jun, [facility] [id number] [place] [address] 87633- 8679 Jun, [facility] [id number] [place] [address] 78418- 7640 Jun, [facility] [id number] [place] [address] 09184- 2897 Jun, [facility] [id number] [place] [address] 63876- 2159 Jun, Psychophysiological insomnia F51.04 ; Chronic obstructive pulmonary disease with (acute) exacerbation J44.1 ; Chronic systolic heart failure I50.22 ; Supplemental oxygen dependent Z99.81 ; Chronic kidney disease, stage IV (severe) N18.4 ; Nausea R11.0 ; Debility R53.81 and Diarrhea, unspecified type R19.7 [facility] [id number] [place] [address] 05868- 8020 May, [facility] [address] 67683- 8395 May, [facility] [address] 36065- 8980 May, [place] [address] 15009- 2657 May, [place] [address] 68626- 9407 May, [place] [id number] [place] [address] 67665- 0289 Apr, [facility] [address] [facility] [place] [id number] Apr, Mild depression F32.0 ; Essential hypertension I10 ; Chronic systolic heart failure I50.22 ; Chronic obstructive pulmonary disease with (acute) exacerbation J44.1 ; Paroxysmal atrial fibrillation I48.0 ; Chronic kidney disease, stage IV (severe) N18.4 ; Acquired hypothyroidism E03.9 ; Clotted dialysis access, sequela T82.49XS ; Psychophysiological insomnia F51.04 and Gastroesophageal reflux disease without esophagitis K21.9 [place] [id number] [place] [address] 58537- 1709 Apr, Psychophysiological insomnia F51.04 [place] [id number] [place] [address] 55116- 4966 Apr, [place] [id number] [place] [address] 81659- 3191 Apr, [place] [address] 54129- 4194 Mar, [facility] [address] [place] [id number] Mar, Acute respiratory failure with hypoxia J96.01 ; Acute pancreatitis, unspecified complication status, unspecified pancreatitis type K85.90 ; Chronic kidney disease, stage IV (severe) N18.4 ; Rash R21 and Gastroesophageal reflux disease without esophagitis K21.9 [place] [id number] [place] [address] 35751- 1358 Mar, Psychophysiological insomnia F51.04 [place] [id number] [place] [address] 02233- 3988 03 Mar, 2018 [facility] [address] [place] [id number] Feb, Vertigo R42 and Chronic kidney disease, stage IV (severe) N18.4 [place] [id number] [place] [address] 55349- 1251 24 Feb, 2018 [facility] [address] [place] [id number] 20 Feb, 2018 Cellulitis of breast N61.0 [place] [id number] [place] [address] 27318- 2431 18 Feb, 2018 [place] [id number] [place] [address] 03106- 8653 Feb, [place] [address] [place] [address] 43725- 7901 12 Feb, 2018 Psychophysiological insomnia F51.04 [facility] [address] [place] [id number] 11 Feb, 2018 Urinary tract infection without hematuria, site unspecified N39.0 ; Chronic kidney disease, stage IV (severe) N18.4 and Chronic systolic heart failure I50.22 [place] [address] [place] [address] 47733- 1581 10 Feb, 2018 [facility] [address] [place] [id number] 04 Feb, 2018 Chronic kidney disease, stage IV (severe) N18.4 ; Chronic systolic heart failure I50.22 ; COPD with acute lower respiratory infection J44.0 ; Vertigo R42 ; Slow transit constipation K59.01 ; Hemorrhoids, unspecified hemorrhoid type K64.9 ; Acquired hypothyroidism E03.9 ; Candidiasis of breast B37.89 and Difficulty in urination R39.198 [facility] [id number] [place] [address] 15855- 0172 Jan, Acute on chronic systolic CHF (congestive heart failure) I50.23 ; Acute kidney failure, unspecified N17.9 ; Chronic kidney disease, stage III (moderate) N18.3 and Supplemental oxygen dependent Z99.81 [place] [address] 28074- 9295 Jan, Acute on chronic combined systolic and diastolic CHF ( congestive heart failure) I50.43 [place] [address] 59325- 6158 Jan, [facility] [address] [address] Jan, Irritant contact dermatitis due to cosmetics L24.3 ; Effusion of right wrist M25.431 and Pain in right wrist M25.531 [place] [id number] [place] [address] 45247- 5014 Dec, Chronic systolic heart failure I50.22 ; Chronic obstructive pulmonary disease with (acute) exacerbation J44.1 ; CKD (chronic kidney disease ) stage 4, GFR 15-29 ml/min N18.4 ; Cardiomyopathy I42.9 ; Dependence on supplemental oxygen Z99.81 and Psychophysiological insomnia F51.04 [place] [id number] [place] [address] 54285- 7132 Dec, Anxiety F41.9 [place] [id number] [place] [address] 67283- 9285 Dec, [place] [id number] [place] [address] 69110- 6820 Dec, [place] [address], [place] [address] 1066 Dec, [facility] [address] [place] [id number] 10 Dec, 2017 Encounter for examination for admission to halfway Z02.2 ; Chronic obstructive pulmonary disease, unspecified J44.9 ; Paroxysmal atrial fibrillation I48.0 ; CKD (chronic kidney disease) stage 4, GFR 15-29 ml/min N18.4 and Cardiomyopathy I42.9 [place] [id number], [place] [address] 4435 Dec, [place] [id number], [place] [address] 1520 Nov, Acute on chronic combined systolic and diastolic CHF ( congestive heart failure) I50.43 [place] [address], [place] [address] 6745 Nov, [place] [id number], [place] [address] 2882 Nov, [facility] [address], [place] [address] 9408 Nov, Chronic systolic heart failure I50.22 ; Paroxysmal atrial fibrillation I48.0 ; Chronic obstructive pulmonary disease with (acute) exacerbation J44.1 ; Chronic kidney disease, stage 4 (severe) N18.4 ; Pain in right hip M25.551 and Pain in left hip M25.552 [place] [address], [place] [address]- 7160 Nov, Chronic kidney disease, stage 4 (severe) N18.4 [place] [address], [place] [address]- 6643 Nov, [place] [address], [place] [address]- 9633 Nov, [facility] [address], [place] [address]- 7586 October, Chronic obstructive pulmonary disease with (acute) exacerbation J44.1 ; Chronic systolic heart failure I50.22 ; CKD (chronic kidney disease) stage 4, GFR 15-29 ml/min N18.4 and Dependence on supplemental oxygen Z99.81 [place] [id number] [place] [address] 59591- 6349 October, [place] [id number] [place] [address] 09561- 8432 October, [place] [address] 88937- 4580 Sep, Chronic kidney disease, stage 4 (severe) N18.4 and Chronic kidney disease, stage IV (severe) N18.4 [place] [id number] [place] [address] 34808- 0748 Sep, Chronic kidney disease, stage 4 (severe) N18.4 [place] [id number] [place] [address] 51057- 2947 Sep, Anxiety F41.9 ; Paroxysmal atrial fibrillation I48.0 ; Chronic kidney disease, stage 4 (severe) N18.4 ; Chronic systolic heart failure I50.22 and Anemia associated with chronic renal failure D63.1 [place] [id number] [place] [address] 35067- 6335 Sep, [place] [id number] [place] [address] 29980- 0945 Aug, [id number] [place] [address] 88218- 3964 Aug, [facility] [address] [facility] [address] [place] [id number] Aug, Acute on chronic combined systolic and diastolic CHF (congestive heart failure) I50.43 ; Essential hypertension I10 ; CKD (chronic kidney disease) stage 4, GFR 15-29 ml/min N18.4 ; Paroxysmal atrial fibrillation I48.0 and Mild depression F32.0 [id number] [place] [address] 68980- 6710 Aug, [place] [address], [place] [address]- 7747 Aug, [facility] [id number] [place] [address] 93522- 0422 14 Aug, 2017 Acute on chronic respiratory failure with hypoxia J96.21 ; Acute kidney failure, unspecified N17.9 ; Chronic kidney disease, stage 4 ( severe) N18.4 ; Acute on chronic combined systolic and diastolic CHF ( congestive heart failure) I50.43 ; Paroxysmal atrial fibrillation I48.0 and Cardiomyopathy, unspecified type I42.9 [facility] [address] [place] [address] 62233- 2108 Aug, [facility] [id number] [place] [address] 07694- 7108 14 Jul, 2017 [facility] [id number] [place] [address] 48022- 6245 Jul, [facility] [id number] [place] [address] 60279- 5654 Jul, [facility] [id number] [place] [address] 70436- 8713 Jul, [facility] [id number] [place] [address] 25220- 7776 06 Jul, 2017 Community acquired pneumonia of right lower lobe of lung J18.1 ; CKD (chronic kidney disease) stage 4, GFR 15-29 ml/min N18.4 and Shortness of breath R06.02 [facility] [id number] [place] [address] [id number] 05 Jul, 2017 [facility] [id number] [place] [address] 64546- 0725 Jun, Anxiety F41.9 [facility] [id number] [place] [address] 67745- 4908 13 Apr, 2017 Anxiety F41.9 [facility] [id number] [place] [address] 05358- 8626 10 Apr, 2017 Cough R05 and Pneumonia of right lower lobe due to infectious organism J18.[address] 22008- 3281 07 Apr, [address] 60870- 0808 Apr, Chronic kidney disease, stage IV (severe) N18.4 and COPD exacerbation J44.[address] 17167- 1084 Feb, Chronic systolic heart failure I50.22 ; Essential hypertension I10 ; Anemia associated with chronic renal failure D63.1 and Chronic kidney disease, stage 4 (severe) N18.[address] 89791- 9891 Feb, Anxiety F41.[address] 46638- 7792 Feb, [address] 40209- 7832 Feb, [address] 21253- 9707 Jan, Other fatigue R53.83 ; Otalgia of both ears H92.03 and Urinary urgency R39.[address] 17533- 0100 Jan, Acute non-recurrent maxillary sinusitis J01.00 ; Chronic systolic heart failure I50.22 ; Stage 3 chronic kidney disease N18.3 and Mild depression F32.[address] 31643- 1023 14 Sep, [address] 37505- 5653 Sep, [address] 27186- 6286 Feb, [facility] [place] [facility] [address] [id number] [place] [address]- 3856 Feb, [facility] [place] [facility] [address] [id number] [place] [address]- 9237 Dec, [facility] [place] [facility] [address] [id number] [place] [address]- 3003 Dec, [facility] [place] [facility] [address] [id number] [place] [address]- 2914 Nov, [facility] [place] [facility] [address] [id number] [place] [address]- 2041 Nov, [facility] [place] [facility] [address] [id number] [place] [address]- 3291 Nov, [facility] [place] [facility] [address] [id number] [place] [address]- 6314 Nov, [facility] [place] [facility] [address] [id number] [place] [address]- 6562 October, [facility] [place] [facility] [address] [id number] [place] [address]- 3215 October, [facility] [place] [facility] [address] [id number] [place] [address]- 0472 Sep, [facility] [place] [facility] [address] [id number] [place] [address]- 8841 Sep, [facility] [place] [facility] [address] [id number] [place] [address]- 7681 Sep, [facility] [place] [facility] [address] [id number] [place] [address]- 2052 Sep, [facility] [place] [facility] [address] [id number] [place] [address]- 1215 Sep, [facility] [place] [facility] [address] [id number] [place] [address]- 6432 Aug, [facility] [place] [facility] [address] [id number] [address]- 7146 Aug, [facility] [place] [facility] [address] [id number] [place] [address]- 0711 Aug, [facility] [place] [facility] [address] [id number] [place] [address]- 8846 Aug, [facility] [place] [facility] [address] [id number] [place] [address]- 4524 Aug, [facility] [place] [facility] [address] [id number] [place] [address]- 3887 Aug, [facility] [place] [facility] [address] [id number] [place] [address]- 9983 Aug, [facility] [place] [facility] [address] [id number] [place] [address]- 5335 Aug, [facility] [place] [facility] [address] [facility] [id number] [place] [address]- 9452 Jul, [facility] [place] [facility] [address] [id number] [place] [address]- 4126 Jul, [facility] [place] [facility] [address] [id number] [place] [address]- 3161 Jul, [facility] [place] [facility] [address] [facility] [id number] [place] [address]- 9716 Jul, [facility] [place] [facility] [address] [facility] [id number] [place] [address]- 0503 Jul, [facility] [place] [facility] [address] [id number] [place] [address]- 2541 Jul, [facility] [place] [facility] [address] [id number] [place] [address]- 4647 Jun, [facility] [place] [facility] [address] [id number] [place] [address]- 7446 Jun, [facility] [place] [facility] [address] [id number], [place] [address]- 7579 Jun, [facility] [place] [facility] [address] [id number] [place] [address]- 6295 Jun, [facility] [address] [id number] [place] [address]- 2016 Jun, [facility] [address] [id number] [place] [address]- 0328 May, [facility] [place] [facility] [address] [id number] [place] [address]- 2264 May, [facility] [address] [id number] [place] [address]- 0974 May, [facility] [address] [id number] [place] [address]- 5740 May, [facility] [address] [id number] [place] [address]- 1722 May, [facility] [address] [id number] [place] [address]- 4292 Apr, [facility] [address] [id number] [place] [address]- 9539 Apr, [facility] [address] [id number] [place] [address]- 5455 Mar, [facility] [place] [facility] [address] [id number] [place] [address]- 2571 Mar, [facility] [place] [facility] [address] [id number], [place] [address]- 0620 Mar, [facility] [place] [facility] [address] [id number] [place] [address]- 3909 Mar, [facility] [place] [facility] [address] [id number] [place] [address]- 0561 Feb, [facility] [place] [facility] [address] [id number] [place] [address]- 9383 Jan, [facility] [place] [facility] [address] [id number] [place] [address]- 0359 Jan, [facility] [place] [facility] [address] [id number] [place] [address]- 0212 Aug, [facility] [place] [facility] [address] [id number] [place] 0500 Jul, [facility] [place] [facility] [address] [id number] [place] [address]- 7960 Jun, [facility] [place] [facility] [address] [id number] [place] [address]- 8884 May, [facility] [place] [facility] [address] [id number] [place] [address]- 9678 May, [facility] [place] [facility] [address] [id number] [place] [address]- 1019 May, [facility] [place] [facility] [address] [id number] [place] [address]- 1284 May, [facility] [place] [facility] [address] [id number] [place] [address]- 7399 Apr, [facility] [place] [facility] [address] [id number] [place] [address]- 3226 Apr, [facility] [place] [facility] [address] [id number] [place] [address]- 7915 Mar, [facility] [place] [facility] [address] [id number], [place] [address]- 5686 Mar, [facility] [place] [facility] [address] [id number], [place] [address]- 9060 Mar, [facility] [place] [facility] [address] [id number] [place] [address]- 7285 Mar, [facility] [place] [facility] [address] [id number] [place] [address]- 6330 Mar, [facility] [place] [facility] [address] [id number] [place] [address]- 8422 Mar, [facility] [place] [facility] [id number], [place] [address]- 2546 Dec, [facility] [id number], [place] [address]- 2546 Dec, [facility] [address], [place] [address]- 2546 Nov, [facility] [id number], [place] [address]- 2546 Nov, [facility] [address], [place] [address]- 2546 October, [facility] [address], [place] [address]- 2546 October, [facility] [address], [place] [address]- 5246 Sep, [facility] [address], [place] [address]- 2546 Aug, [facility] [id number], [place] [address]- 9026 Aug, [facility] [id number], [place] [address] 2546 Aug, IMMUNIZATIONS No Known Immunizations SOCIAL HISTORY Never Assessed REASON FOR VISIT EMR-[facility] PLAN OF CARE VITAL SIGNS MEDICATIONS Unknown Medications RESULTS No Results PROCEDURES No Known procedures INSTRUCTIONS MEDICATIONS ADMINISTERED No Known Medications MEDICAL (GENERAL) HISTORY Type Description Date Medical History hyperlipidemia Medical History htn Medical History kidney failure stage 4 - dx in 2012 Medical History hypothyroidisim Medical History neuropathy Medical History COPD - See's Dr Burnette in [facility] Medical History Chronic Heart Failure Surgical History 2 cesareans Surgical History defibrillator - 2012 Hospitalization History pneumonia for a week 2016 Hospitalization History Hospitalized at [facility]- CHF, Chest pain. Dismissed 07/11/17 07/10/2017 Hospitalization History [facility] pneumonia, hypoxia-[facility] 07/30/[address] [facility]- [facility] PNA, Respiratory Failure. Transfered to [place] 10/25/2017 Hospitalization History CHF/COPD 11/2017 Hospitalization History Flu 06/2018
--- OUTSIDE RECORDS SUMMARY | 2018-10-13 22:46 | XMS REPORT ---
Author Author Migration, Doctor Organization [facility] Address Unknown Phone Unavailable Care Team Providers Care Operating Room Coordinator Name Role Phone Migration, Doctor Unavailable Unavailable PROBLEMS Type Condition ICD9-CM Code GRO08-LQ Code Onset Dates Condition Status SNOMED Code Problem Chronic systolic heart failure I50.22 Active 360126262 Problem Essential hypertension I10 Active 26754545 Problem Anemia associated with chronic renal failure D63.1 Active 889603224 Problem Mild depression F32.0 Active 575699625 Problem Paroxysmal atrial fibrillation I48.0 Active 991278512 Problem Anxiety F41.9 Active 67483615 Problem Cardiomyopathy I42.9 Active 24339888 Problem Chronic obstructive pulmonary disease, unspecified J44.9 Active 78512818 Problem Acute on chronic systolic CHF (congestive heart failure) I50.23 Active 080919275 Problem Chronic kidney disease, stage IV (severe) N18.4 Active 355817674 Problem Psychophysiological insomnia F51.04 Active 537461200 Problem Gastroesophageal reflux disease without esophagitis K21.9 Active 369825888 Problem Chronic obstructive pulmonary disease with (acute) exacerbation J44.1 Active 628965338 Problem Supplemental oxygen dependent Z99.81 Active 530403388412 Problem Acquired hypothyroidism E03.9 Active 933894971 Problem Slow transit constipation K59.01 Active 05635196 Problem COPD with acute lower respiratory infection J44.0 Active 321889291 ALLERGIES No Information ENCOUNTERS Encounter Location Date Diagnosis [facility] [place] [address] [id number], [place] [address] Aug, [facility] [place] [address], [place] [address] Aug, Psychophysiological insomnia F51.04 [facility] [address] [place] [id number] Jul, Cellulitis of left lower extremity L03.116 [facility] [place] [address] [id number], [place] [address] Jul, [facility] [place] [id number] [place] [address] 85606- 6360 13 Jul, 2018 Viral upper respiratory infection J06.9 and Nausea R11.0 [facility] [place] [id number] [place] [address] 32483- 2776 06 Jul, 2018 Psychophysiological insomnia F51.04 [facility] [place] [id number] [place] [address] 96446- 1873 05 Jul, 2018 Psychophysiological insomnia F51.04 [facility] [place] [id number] [place] [address] 77731- 1168 Jul, [facility] [place] [id number] [place] [address] 03333- 7062 Jul, [facility] [place] [id number] [place] [address] 87601- 0841 Jul, Psychophysiological insomnia F51.04 [facility] [place] [id number] [place] [address] 71509- 3279 Jun, [facility] [place] [id number] [place] [address] 01347- 5846 Jun, [facility] [place] [id number] [place] [address] 16872- 8794 Jun, [facility] [place] [id number] [place] [address] 55791- 5167 Jun, [facility] [place] [id number] [place] [address] 62588- 1485 Jun, [facility] [place] [id number] [place] [address] 13378- 3322 Jun, [facility] [place] [id number] [place] [address] 87288- 5935 Jun, [facility] [place] [id number] [place] [address] 64806- 5228 Jun, Psychophysiological insomnia F51.04 ; Chronic obstructive pulmonary disease with (acute) exacerbation J44.1 ; Chronic systolic heart failure I50.22 ; Supplemental oxygen dependent Z99.81 ; Chronic kidney disease, stage IV (severe) N18.4 ; Nausea R11.0 ; Debility R53.81 and Diarrhea, unspecified type R19.7 [facility] [place] [id number] [place] [address] 32241- 2434 May, [facility] [place] [address] 14250- 4613 May, [facility] [place] [address] 27801- 6279 May, [place] 06022- 7193 May, [place] [address] 10820- 8823 May, [place] [id number] [place] [address] 43710- 7390 Apr, [facility] [address] [place] [id number] Apr, Mild depression F32.0 ; Essential hypertension I10 ; Chronic systolic heart failure I50.22 ; Chronic obstructive pulmonary disease with (acute) exacerbation J44.1 ; Paroxysmal atrial fibrillation I48.0 ; Chronic kidney disease, stage IV (severe) N18.4 ; Acquired hypothyroidism E03.9 ; Clotted dialysis access, sequela T82.49XS ; Psychophysiological insomnia F51.04 and Gastroesophageal reflux disease without esophagitis K21.9 [place] [id number] [place] [address] 02600- 5296 Apr, Psychophysiological insomnia F51.04 [place] [id number] [place] [address] 50126- 3902 Apr, [place] [id number] [place] [address] 28873- 5732 Apr, [place] [address] 69977- 6989 Mar, [facility] [address] [place] [id number] Mar, Acute respiratory failure with hypoxia J96.01 ; Acute pancreatitis, unspecified complication status, unspecified pancreatitis type K85.90 ; Chronic kidney disease, stage IV (severe) N18.4 ; Rash R21 and Gastroesophageal reflux disease without esophagitis K21.9 [place] [id number] [place] [address] 02421- 2532 Mar, Psychophysiological insomnia F51.04 [place] [id number] [place] [address] 16186- 1494 03 Mar, 2018 [facility] [address] [place] [id number] Feb, Vertigo R42 and Chronic kidney disease, stage IV (severe) N18.4 [place] [id number] [place] [address] 93128- 1010 24 Feb, 2018 [facility] [address] [place] [id number] 20 Feb, 2018 Cellulitis of breast N61.0 [place] [id number] [place] [address] 49603- 4777 18 Feb, 2018 [place] [id number] [place] [address] 96134- 7073 Feb, [address] [id number] [place] [address] 14323- 2221 12 Feb, 2018 Psychophysiological insomnia F51.04 [facility] [address] [place] [id number] 11 Feb, 2018 Urinary tract infection without hematuria, site unspecified N39.0 ; Chronic kidney disease, stage IV (severe) N18.4 and Chronic systolic heart failure I50.22 [address] [id number] [place] [address] 02223- 5638 10 Feb, 2018 [facility] [address] [place] [id number] 04 Feb, 2018 Chronic kidney disease, stage IV (severe) N18.4 ; Chronic systolic heart failure I50.22 ; COPD with acute lower respiratory infection J44.0 ; Vertigo R42 ; Slow transit constipation K59.01 ; Hemorrhoids, unspecified hemorrhoid type K64.9 ; Acquired hypothyroidism E03.9 ; Candidiasis of breast B37.89 and Difficulty in urination R39.198 [facility] [place] [id number] [place] [address] 94877- 0539 Jan, Acute on chronic systolic CHF (congestive heart failure) I50.23 ; Acute kidney failure, unspecified N17.9 ; Chronic kidney disease, stage III (moderate) N18.3 and Supplemental oxygen dependent Z99.81 [place] [address] 14938- 0346 Jan, Acute on chronic combined systolic and diastolic CHF ( congestive heart failure) I50.43 [address] [address] 02298- 8618 Jan, [facility] [address] [address]39 Jan, Irritant contact dermatitis due to cosmetics L24.3 ; Effusion of right wrist M25.431 and Pain in right wrist M25.531 [place] [id number] [place] [address] 18171- 5095 Dec, Chronic systolic heart failure I50.22 ; Chronic obstructive pulmonary disease with (acute) exacerbation J44.1 ; CKD (chronic kidney disease ) stage 4, GFR 15-29 ml/min N18.4 ; Cardiomyopathy I42.9 ; Dependence on supplemental oxygen Z99.81 and Psychophysiological insomnia F51.04 [address] [id number] [place] [address] 63211- 7662 Dec, Anxiety F41.9 [place] [id number] [place] [address] 18099- 0879 Dec, [address] [id number] [place] [address] 60137- 9049 Dec, [address] [address], [place] [address]- 0377 Dec, [facility] [address] [place] [id number] 10 Dec, 2017 Encounter for examination for admission to group home Z02.2 ; Chronic obstructive pulmonary disease, unspecified J44.9 ; Paroxysmal atrial fibrillation I48.0 ; CKD (chronic kidney disease) stage 4, GFR 15-29 ml/min N18.4 and Cardiomyopathy I42.9 [address] [id number] [address]- 5079 Dec, [address] [id number] [address] 6061 Nov, Acute on chronic combined systolic and diastolic CHF ( congestive heart failure) I50.43 [address] [address], [place] [address]- 3303 Nov, [address] [id number] [address]- 1629 Nov, [facility] [place] [address], [place] [address]- 6072 Nov, Chronic systolic heart failure I50.22 ; Paroxysmal atrial fibrillation I48.0 ; Chronic obstructive pulmonary disease with (acute) exacerbation J44.1 ; Chronic kidney disease, stage 4 (severe) N18.4 ; Pain in right hip M25.551 and Pain in left hip M25.552 [address] [address], [place] [address]- 0105 Nov, Chronic kidney disease, stage 4 (severe) N18.4 [address] [address] [address]- 0067 Nov, [address] [address], [place] [address]- 2137 Nov, [facility] [place] [address], [place] [address]- 5806 October, Chronic obstructive pulmonary disease with (acute) exacerbation J44.1 ; Chronic systolic heart failure I50.22 ; CKD (chronic kidney disease) stage 4, GFR 15-29 ml/min N18.4 and Dependence on supplemental oxygen Z99.81 [place] [id number] [place] [address] 89472- 7889 October, [address] [id number] [place] [address] 92316- 6288 October, [address] 35862- 9616 Sep, Chronic kidney disease, stage 4 (severe) N18.4 and Chronic kidney disease, stage IV (severe) N18.4 [address] [id number] [place] [address] 67893- 9118 Sep, Chronic kidney disease, stage 4 (severe) N18.4 [address] [id number] [place] [address] 02829- 6464 Sep, Anxiety F41.9 ; Paroxysmal atrial fibrillation I48.0 ; Chronic kidney disease, stage 4 (severe) N18.4 ; Chronic systolic heart failure I50.22 and Anemia associated with chronic renal failure D63.1 [address] [id number] [place] [address] 12034- 7924 Sep, [address] [id number] [place] [address] 23211- 9535 Aug, [id number] [place] [address] 26872- 1395 Aug, [facility] [address] [place] [id number] Aug, Acute on chronic combined systolic and diastolic CHF (congestive heart failure) I50.43 ; Essential hypertension I10 ; CKD (chronic kidney disease) stage 4, GFR 15-29 ml/min N18.4 ; Paroxysmal atrial fibrillation I48.0 and Mild depression F32.0 [id number] [place] [address] 53698- 4494 Aug, [address] [place] [address], [place] [address]- 9622 Aug, [facility] [place] [id number] [place] [address] 47129- 8509 14 Aug, 2017 Acute on chronic respiratory failure with hypoxia J96.21 ; Acute kidney failure, unspecified N17.9 ; Chronic kidney disease, stage 4 ( severe) N18.4 ; Acute on chronic combined systolic and diastolic CHF ( congestive heart failure) I50.43 ; Paroxysmal atrial fibrillation I48.0 and Cardiomyopathy, unspecified type I42.9 [facility] [place] [id number] [place] [address] 90136- 4425 Aug, [facility] [place] [id number] [place] [address] 72462- 6266 14 Jul, 2017 [facility] [place] [id number] [place] [address] 05080- 9381 Jul, [facility] [place] [id number] [place] [address] 32680- 5198 Jul, [facility] [place] [id number] [place] [address] 60847- 4633 Jul, [facility] [place] [id number] [place] [address] 46882- 9323 06 Jul, 2017 Community acquired pneumonia of right lower lobe of lung J18.1 ; CKD (chronic kidney disease) stage 4, GFR 15-29 ml/min N18.4 and Shortness of breath R06.02 [facility] [id number] [place] [address] [id number] 05 Jul, 2017 [facility] [place] [id number] [place] [address] 02919- 3953 Jun, Anxiety F41.9 [facility] [place] [id number] [place] [address] 94738- 4877 13 Apr, 2017 Anxiety F41.9 [facility] [place] [id number] [place] [address] 23753- 3900 10 Apr, 2017 Cough R05 and Pneumonia of right lower lobe due to infectious organism J18.[address] 92641- 0009 07 Apr, [address] 53794- 0283 Apr, Chronic kidney disease, stage IV (severe) N18.4 and COPD exacerbation J44.[address] 09994- 6779 Feb, Chronic systolic heart failure I50.22 ; Essential hypertension I10 ; Anemia associated with chronic renal failure D63.1 and Chronic kidney disease, stage 4 (severe) N18.[address] 33849- 9935 Feb, Anxiety F41.[address] 15538- 3716 Feb, [address] 75490- 4910 Feb, [address] 59146- 2532 Jan, Other fatigue R53.83 ; Otalgia of both ears H92.03 and Urinary urgency R39.[address] 58577- 1347 Jan, Acute non-recurrent maxillary sinusitis J01.00 ; Chronic systolic heart failure I50.22 ; Stage 3 chronic kidney disease N18.3 and Mild depression F32.[address] 59926- 2419 14 Sep, [address] 68510- 7196 Sep, [address] 40833- 5522 Feb, [facility] [place] [facility] [address] [id number] [place] [address]- 8777 Feb, [facility] [place] [facility] [address] [id number] [place] [address]- 6777 Dec, [facility] [place] [facility] [address] [id number] [place] [address]- 5449 Dec, [facility] [place] [facility] [address] [id number] [place] [address]- 2046 Nov, [facility] [place] [facility] [address] [id number] [place] [address]- 2582 Nov, [facility] [place] [facility] [address] [id number] [place] [address]- 0216 Nov, [facility] [place] [facility] [address] [id number] [place] [address]- 8762 Nov, [facility] [place] [facility] [address] [id number] [place] [address]- 1409 October, [facility] [place] [facility] [address] [id number] [place] [address]- 0905 October, [facility] [place] [facility] [address] [id number] [place] [address]- 0751 Sep, [facility] [place] [facility] [address] [id number] [place] [address]- 3325 Sep, [facility] [place] [facility] [address] [id number] [place] [address]- 6449 Sep, [facility] [place] [facility] [address] [id number] [place] [address]- 6562 Sep, [facility] [place] [facility] [address] [id number] [place] [address]- 4888 Sep, [facility] [place] [facility] [address] [id number] [place] [address]- 3596 Aug, [facility] [place] [facility] [address] [id number], [place] [address]- 4357 Aug, [facility] [place] [facility] [address] [id number] [place] [address]- 5969 Aug, [facility] [place] [facility] [address] [id number] [place] [address]- 7256 Aug, [facility] [place] [facility] [address] [id number] [place] [address]- 8712 Aug, [facility] [place] [facility] [address] [id number] [place] [address]- 2800 Aug, [facility] [place] [facility] [address] [id number] [place] [address]- 0903 Aug, [facility] [place] [facility] [address] [id number] [place] [address]- 6122 Aug, [facility] [place] [facility] [address] [facility] [id number] [place] [address]- 7245 Jul, [facility] [place] [facility] [address] [id number] [place] [address]- 5894 Jul, [facility] [place] [facility] [address] [id number] [place] [address]- 2665 Jul, [facility] [place] [facility] [address] [facility] [id number] [place] [address]- 2882 Jul, [facility] [place] [facility] [address] [facility] [id number] [place] [address]- 2284 Jul, [facility] [place] [facility] [address] [id number] [place] [address]- 2547 Jul, [facility] [place] [facility] [address] [id number] [place] [address]- 8790 Jun, [facility] [place] [facility] [address] [id number] [place] [address]- 3516 Jun, [facility] [place] [facility] [address] [id number], [place] [address]- 9375 Jun, [facility] [place] [facility] [address] [id number] [place] [address]- 6015 Jun, [facility] [address] [id number] [place] [address]- 8027 Jun, [facility] [address] [id number] [place] [address]- 9930 May, [facility] [place] [facility] [address] [id number] [place] [address]- 8329 May, [facility] [address] [id number] [place] [address]- 2799 May, [facility] [address] [id number] [place] [address]- 4608 May, [facility] [address] [id number] [place] [address]- 0014 May, [facility] [address] [id number] [place] [address]- 2728 Apr, [facility] [address] [id number] [place] [address]- 1034 Apr, [facility] [address] [id number] [place] [address]- 2673 Mar, [facility] [place] [facility] [address] [id number] [place] [address]- 5101 Mar, [facility] [place] [facility] [address] [id number], [place] [address]- 1030 Mar, [facility] [place] [facility] [address] [id number] [place] [address]- 4240 Mar, [facility] [place] [facility] [address] [id number] [place] [address]- 3446 Feb, [facility] [place] [facility] [address] [id number] [place] [address]- 4874 Jan, [facility] [place] [facility] [address] [id number] [place] [address]- 4355 Jan, [facility] [place] [facility] [address] [id number] [place] [address]- 8427 Aug, [facility] [place] [facility] [address] [id number] [place] 9619 Jul, [facility] [place] [facility] [address] [id number] [place] [address]- 4770 Jun, [facility] [place] [facility] [address] [id number] [place] [address]- 3707 May, [facility] [place] [facility] [address] [id number] [place] [address]- 6598 May, [facility] [place] [facility] [address] [id number] [place] [address]- 4769 May, [facility] [place] [facility] [address] [id number] [place] [address]- 9161 May, [facility] [place] [facility] [address] [id number] [place] [address]- 5175 Apr, [facility] [place] [facility] [address] [id number] [place] [address] Apr, [facility] [place] [facility] [address] [id number] [place] [address] Mar, [facility] [place] [facility] [address] [id number], [place] [address] Mar, [facility] [place] [facility] [address] [id number], [place] [address] Mar, [facility] [place] [facility] [address] [id number] [place] [address] Mar, [facility] [place] [facility] [address] [id number] [place] [address] Mar, [facility] [place] [facility] [address] [id number] [place] [address] Mar, [facility] [place] [facility] [address] [id number], [place] [address] Dec, [facility] [place] [address] [id number], [place] [address] Dec, [facility] [place] [id number], [place] [address] Nov, [facility] [place] [address] [id number], [place] [address] Nov, [facility] [place] [id number], [place] [address] October, [facility] [place] [id number], [place] [address] October, [facility] [place] [id number], [place] [address] Sep, [facility] [place] [id number], [place] [address] Aug, [facility] [place] [address] [id number], [place] [address] Aug, [facility] [place] [address] [id number], [place] [address] Aug, IMMUNIZATIONS No Known Immunizations SOCIAL HISTORY Never Assessed REASON FOR VISIT [facility]MR[facility] PLAN OF CARE VITAL SIGNS MEDICATIONS Unknown Medications RESULTS No Results PROCEDURES No Known procedures INSTRUCTIONS MEDICATIONS ADMINISTERED No Known Medications MEDICAL (GENERAL) HISTORY Type Description Date Medical History hyperlipidemia Medical History htn Medical History kidney failure stage 4 - dx in 2012 Medical History hypothyroidisim Medical History neuropathy Medical History COPD - See's Dr Burnette in [facility] Medical History Chronic Heart Failure Surgical History 2 [facility] Surgical History defibrillator - 2012 Hospitalization History pneumonia for a week 2016 Hospitalization History Hospitalized at [facility]- CHF, Chest pain. Dismissed 07/11/17 07/10/2017 Hospitalization History RLL pneumonia, hypoxia-[facility] 07/30/17 Hospitalization History [facility]- RLL PNA, Respiratory Failure. Transfered to [facility] 10/25/2017 Hospitalization History CHF/COPD 11/2017 Hospitalization History Flu 06/2018
--- OUTSIDE RECORDS SUMMARY | 2018-10-13 22:46 | XMS REPORT ---
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 Name Role Phone Migration, Doctor Unavailable Unavailable PROBLEMS Type Condition ICD9-CM Code NRT19-LT Code Onset Dates Condition Status SNOMED Code Problem Chronic systolic heart failure I50.22 Active 233645889 Problem Essential hypertension I10 Active 37918083 Problem Anemia associated with chronic renal failure D63.1 Active 543756903 Problem Mild depression F32.0 Active 769997447 Problem Paroxysmal atrial fibrillation I48.0 Active 473814402 Problem Anxiety F41.9 Active 74427103 Problem Cardiomyopathy I42.9 Active 14539687 Problem Chronic obstructive pulmonary disease, unspecified J44.9 Active 85721973 Problem Acute on chronic systolic CHF (congestive heart failure) I50.23 Active 605814701 Problem Chronic kidney disease, stage IV (severe) N18.4 Active 990146576 Problem Psychophysiological insomnia F51.04 Active 934064162 Problem Gastroesophageal reflux disease without esophagitis K21.9 Active 220081085 Problem Chronic obstructive pulmonary disease with (acute) exacerbation J44.1 Active 632730815 Problem Supplemental oxygen dependent Z99.81 Active 448972327116 Problem Acquired hypothyroidism E03.9 Active 884202646 Problem Slow transit constipation K59.01 Active 73855200 Problem COPD with acute lower respiratory infection J44.0 Active 053516809 ALLERGIES No Information ENCOUNTERS Encounter Location Date Diagnosis [facility] [id number] [address] Aug, [facility] [address] [address] Aug, Psychophysiological insomnia F51.04 [facility] [address] [place] [id number] Jul, Cellulitis of left lower extremity L03.116 [facility] [address] [id number] [address] Jul, [facility] [id number] [place] [address] 40675- 1106 13 Jul, 2018 Viral upper respiratory infection J06.9 and Nausea R11.0 [facility] [id number] [place] [address] 67270- 4872 06 Jul, 2018 Psychophysiological insomnia F51.04 [facility] [id number] [place] [address] 35543- 4557 05 Jul, 2018 Psychophysiological insomnia F51.04 [facility] [id number] [place] [address] 94882- 7858 Jul, [facility] [id number] [place] [address] 12511- 8118 Jul, [facility] [id number] [place] [address] 85967- 2042 Jul, Psychophysiological insomnia F51.04 [facility] [id number] [place] [address] 15443- 4421 Jun, [facility] [id number] [place] [address] 59446- 0756 Jun, [facility] [id number] [place] [address] 45590- 0213 Jun, [facility] [id number] [place] [address] 06306- 9051 Jun, [facility] [id number] [place] [address] 08004- 5593 Jun, [facility] [id number] [place] [address] 40462- 3657 Jun, [facility] [id number] [place] [address] 33714- 7525 Jun, [facility] [id number] [place] [address] 71160- 1760 Jun, Psychophysiological insomnia F51.04 ; Chronic obstructive pulmonary disease with (acute) exacerbation J44.1 ; Chronic systolic heart failure I50.22 ; Supplemental oxygen dependent Z99.81 ; Chronic kidney disease, stage IV (severe) N18.4 ; Nausea R11.0 ; Debility R53.81 and Diarrhea, unspecified type R19.7 [facility] [id number] [place] [address] 17187- 5770 May, [facility] [address] [address]41- 1693 May, [facility] [address] 32881- 0297 May, [address] [address] 38350- 6171 May, [address] [address] 15690- 8581 May, [place] [id number] [place] [address] 85595- 2297 Apr, [facility] [address] [facility] [address] [place] [id number] Apr, Mild depression F32.0 ; Essential hypertension I10 ; Chronic systolic heart failure I50.22 ; Chronic obstructive pulmonary disease with (acute) exacerbation J44.1 ; Paroxysmal atrial fibrillation I48.0 ; Chronic kidney disease, stage IV (severe) N18.4 ; Acquired hypothyroidism E03.9 ; Clotted dialysis access, sequela T82.49XS ; Psychophysiological insomnia F51.04 and Gastroesophageal reflux disease without esophagitis K21.9 [place] [id number] [place] [address] 25269- 4264 Apr, Psychophysiological insomnia F51.04 [place] [id number] [place] [address] 79005- 7700 Apr, [place] [id number] [place] [address] 37712- 3189 Apr, [address] [address] 17720- 1210 Mar, [facility] [address] [place] [id number] Mar, Acute respiratory failure with hypoxia J96.01 ; Acute pancreatitis, unspecified complication status, unspecified pancreatitis type K85.90 ; Chronic kidney disease, stage IV (severe) N18.4 ; Rash R21 and Gastroesophageal reflux disease without esophagitis K21.9 [place] [id number] [place] [address] 29449- 5358 Mar, Psychophysiological insomnia F51.04 [place] [id number] [place] [address] 63152- 2431 03 Mar, 2018 [facility] [address] [place] [id number] Feb, Vertigo R42 and Chronic kidney disease, stage IV (severe) N18.4 [place] [id number] [place] [address] 17294- 0559 24 Feb, 2018 [facility] [address] [place] [id number] 20 Feb, 2018 Cellulitis of breast N61.0 [place] [id number] [place] [address] 40206- 5701 18 Feb, 2018 [address] [id number] [place] [address] 87419- 1213 Feb, [address] [id number] [place] [address] 69670- 9425 12 Feb, 2018 Psychophysiological insomnia F51.04 [facility] [address] [place] [id number] 11 Feb, 2018 Urinary tract infection without hematuria, site unspecified N39.0 ; Chronic kidney disease, stage IV (severe) N18.4 and Chronic systolic heart failure I50.22 [address] [id number] [place] [address] 37292- 9113 10 Feb, 2018 [facility] [address] [place] [id number] 04 Feb, 2018 Chronic kidney disease, stage IV (severe) N18.4 ; Chronic systolic heart failure I50.22 ; COPD with acute lower respiratory infection J44.0 ; Vertigo R42 ; Slow transit constipation K59.01 ; Hemorrhoids, unspecified hemorrhoid type K64.9 ; Acquired hypothyroidism E03.9 ; Candidiasis of breast B37.89 and Difficulty in urination R39.198 [facility] [id number] [place] [address] 85119- 2701 Jan, Acute on chronic systolic CHF (congestive heart failure) I50.23 ; Acute kidney failure, unspecified N17.9 ; Chronic kidney disease, stage III (moderate) N18.3 and Supplemental oxygen dependent Z99.81 [address] [address] 22855- 6574 Jan, Acute on chronic combined systolic and diastolic CHF ( congestive heart failure) I50.43 [place] [address] 93197- 2693 Jan, [facility] [address] 18896 -6848 Jan, Irritant contact dermatitis due to cosmetics L24.3 ; Effusion of right wrist M25.431 and Pain in right wrist M25.531 [place] [id number] [place] [address] 46949- 5175 Dec, Chronic systolic heart failure I50.22 ; Chronic obstructive pulmonary disease with (acute) exacerbation J44.1 ; CKD (chronic kidney disease ) stage 4, GFR 15-29 ml/min N18.4 ; Cardiomyopathy I42.9 ; Dependence on supplemental oxygen Z99.81 and Psychophysiological insomnia F51.04 [place] [id number] [place] [address] 31198- 3954 Dec, Anxiety F41.9 [place] [id number] [place] [address] 45815- 1809 Dec, [place] [id number] [place] [address] 12593- 1074 Dec, [place] [address] [address] 2549 Dec, [facility] [address] [place] [id number] 10 Dec, 2017 Encounter for examination for admission to assisted Z02.2 ; Chronic obstructive pulmonary disease, unspecified J44.9 ; Paroxysmal atrial fibrillation I48.0 ; CKD (chronic kidney disease) stage 4, GFR 15-29 ml/min N18.4 and Cardiomyopathy I42.9 [place] [id number] [address] 5656 Dec, [place] [id number] [address] 1201 Nov, Acute on chronic combined systolic and diastolic CHF ( congestive heart failure) I50.43 [place] [address] [address] 0721 Nov, [place] [id number] [address] 5293 Nov, [facility] [address] [address] 5558 Nov, Chronic systolic heart failure I50.22 ; Paroxysmal atrial fibrillation I48.0 ; Chronic obstructive pulmonary disease with (acute) exacerbation J44.1 ; Chronic kidney disease, stage 4 (severe) N18.4 ; Pain in right hip M25.551 and Pain in left hip M25.552 [place] [address] [address]- 2489 Nov, Chronic kidney disease, stage 4 (severe) N18.4 [place] [address] [address]- 0810 Nov, [address] [address] [address]- 4378 Nov, [facility] [address] [address]- 9397 October, Chronic obstructive pulmonary disease with (acute) exacerbation J44.1 ; Chronic systolic heart failure I50.22 ; CKD (chronic kidney disease) stage 4, GFR 15-29 ml/min N18.4 and Dependence on supplemental oxygen Z99.81 [place] [id number] [place] [address] 00502- 7368 October, [address] [id number] [place] [address] 58903- 7400 October, [address] [address] 18376- 5943 Sep, Chronic kidney disease, stage 4 (severe) N18.4 and Chronic kidney disease, stage IV (severe) N18.4 [address] [id number] [place] [address] 90755- 0204 Sep, Chronic kidney disease, stage 4 (severe) N18.4 [place] [id number] [place] [address] 04358- 5998 Sep, Anxiety F41.9 ; Paroxysmal atrial fibrillation I48.0 ; Chronic kidney disease, stage 4 (severe) N18.4 ; Chronic systolic heart failure I50.22 and Anemia associated with chronic renal failure D63.1 [place] [id number] [place] [address] 88647- 7005 Sep, [place] [id number] [place] [address] 85937- 9766 Aug, [place] [id number] [place] [address] 95719- 9635 Aug, [facility] [address] [facility] [address] [place] [id number] Aug, Acute on chronic combined systolic and diastolic CHF (congestive heart failure) I50.43 ; Essential hypertension I10 ; CKD (chronic kidney disease) stage 4, GFR 15-29 ml/min N18.4 ; Paroxysmal atrial fibrillation I48.0 and Mild depression F32.0 [address] [place] [id number] [place] [address] 23362- 2451 Aug, [address] [address] [address]- 0874 Aug, [facility] [id number] [place] [address] 13052- 4845 14 Aug, 2017 Acute on chronic respiratory failure with hypoxia J96.21 ; Acute kidney failure, unspecified N17.9 ; Chronic kidney disease, stage 4 ( severe) N18.4 ; Acute on chronic combined systolic and diastolic CHF ( congestive heart failure) I50.43 ; Paroxysmal atrial fibrillation I48.0 and Cardiomyopathy, unspecified type I42.9 [facility] [address] [place] [address] 04137- 5216 Aug, [facility] [id number] [place] [address] 75366- 9141 14 Jul, 2017 [facility] [id number] [place] [address] 66545- 5054 Jul, [facility] [id number] [place] [address] 84945- 4121 Jul, [facility] [id number] [place] [address] 39470- 8953 Jul, [facility] [id number] [place] [address] 65098- 7966 06 Jul, 2017 Community acquired pneumonia of right lower lobe of lung J18.1 ; CKD (chronic kidney disease) stage 4, GFR 15-29 ml/min N18.4 and Shortness of breath R06.02 [facility] [id number] [place] [address] [id number] 05 Jul, 2017 [facility] [id number] [place] [address] 90770- 0045 Jun, Anxiety F41.9 [facility] [id number] [place] [address] 55026- 9877 13 Apr, 2017 Anxiety F41.9 [facility] [id number] [place] [address] 34685- 3206 10 Apr, 2017 Cough R05 and Pneumonia of right lower lobe due to infectious organism J18.[address] 49080- 2757 07 Apr, [address] 50197- 6540 Apr, Chronic kidney disease, stage IV (severe) N18.4 and COPD exacerbation J44.[address] 26413- 1257 Feb, Chronic systolic heart failure I50.22 ; Essential hypertension I10 ; Anemia associated with chronic renal failure D63.1 and Chronic kidney disease, stage 4 (severe) N18.[address] 21052- 5828 Feb, Anxiety F41.[address] 05607- 0599 Feb, [address] 72039- 3817 Feb, [address] 88165- 9789 Jan, Other fatigue R53.83 ; Otalgia of both ears H92.03 and Urinary urgency R39.[address] 49733- 4503 Jan, Acute non-recurrent maxillary sinusitis J01.00 ; Chronic systolic heart failure I50.22 ; Stage 3 chronic kidney disease N18.3 and Mild depression F32.[address] 43633- 6514 14 Sep, [address] 95925- 6105 Sep, [address] 05433- 0746 Feb, [facility] [place] [facility] [address] [id number] [place] [address]- 3856 Feb, [facility] [place] [facility] [address] [id number] [place] [address]- 3894 Dec, [facility] [place] [facility] [address] [id number] [place] [address]- 7652 Dec, [facility] [place] [facility] [address] [id number] [place] [address]- 2407 Nov, [facility] [place] [facility] [address] [id number] [place] [address]- 9150 Nov, [facility] [place] [facility] [address] [id number] [place] [address]- 2721 Nov, [facility] [place] [facility] [address] [id number] [place] [address]- 5442 Nov, [facility] [place] [facility] [address] [id number] [place] [address]- 6409 October, [facility] [place] [facility] [address] [id number] [place] [address]- 9125 October, [facility] [place] [facility] [address] [id number] [place] [address]- 2609 Sep, [facility] [place] [facility] [address] [id number] [place] [address]- 6175 Sep, [facility] [place] [facility] [address] [id number] [place] [address]- 4428 Sep, [facility] [place] [facility] [address] [id number] [place] [address]- 1342 Sep, [facility] [place] [facility] [address] [id number] [place] [address]- 1037 Sep, [facility] [place] [facility] [address] [id number] [place] [address]- 1632 Aug, [facility] [place] [facility] [address] [id number] [address]- 1543 Aug, [facility] [place] [facility] [address] [id number] [place] [address]- 4588 Aug, [facility] [place] [facility] [address] [id number] [place] [address]- 5336 Aug, [facility] [place] [facility] [address] [id number] [place] [address]- 9520 Aug, [facility] [place] [facility] [address] [id number] [place] [address]- 8495 Aug, [facility] [place] [facility] [address] [id number] [place] [address]- 7800 Aug, [facility] [place] [facility] [address] [id number] [place] [address]- 5764 Aug, [facility] [place] [facility] [address] [facility] [id number] [place] [address]- 5696 Jul, [facility] [place] [facility] [address] [id number] [place] [address]- 8202 Jul, [facility] [place] [facility] [address] [id number] [place] [address]- 9130 Jul, [facility] [place] [facility] [address] [facility] [id number] [place] [address]- 8249 Jul, [facility] [place] [facility] [address] [facility] [id number] [place] [address]- 7665 Jul, [facility] [place] [facility] [address] [id number] [place] [address]- 2540 Jul, [facility] [place] [facility] [address] [id number] [place] [address]- 2393 Jun, [facility] [place] [facility] [address] [id number] [place] [address]- 2696 Jun, [facility] [place] [facility] [address] [id number] [address]- 5800 Jun, [facility] [place] [facility] [address] [id number] [place] [address]- 5980 Jun, [facility] [address] [id number] [place] [address]- 1944 Jun, [facility] [address] [id number] [place] [address]- 0361 May, [facility] [place] [facility] [address] [id number] [place] [address]- 3774 May, [facility] [address] [id number] [place] [address]- 3979 May, [facility] [address] [id number] [place] [address]- 9259 May, [facility] [address] [id number] [place] [address]- 7256 May, [facility] [address] [id number] [place] [address]- 5315 Apr, [facility] [address] [id number] [place] [address]- 3393 Apr, [facility] [address] [id number] [place] [address]- 0601 Mar, [facility] [place] [facility] [address] [id number] [place] [address]- 1749 Mar, [facility] [place] [facility] [address] [id number] [address]- 7596 Mar, [facility] [place] [facility] [address] [id number] [place] [address]- 1718 Mar, [facility] [place] [facility] [address] [id number] [place] [address]- 8333 Feb, [facility] [place] [facility] [address] [id number] [place] [address]- 7161 Jan, [facility] [place] [facility] [address] [id number] [place] [address]- 0867 Jan, [facility] [place] [facility] [address] [id number] [place] [address]- 5326 Aug, [facility] [place] [facility] [address] [id number] [place] 2914 Jul, [facility] [place] [facility] [address] [id number] [place] [address]- 3207 Jun, [facility] [place] [facility] [address] [id number] [place] [address]- 4279 May, [facility] [place] [facility] [address] [id number] [place] [address]- 0107 May, [facility] [place] [facility] [address] [id number] [place] [address]- 9797 May, [facility] [place] [facility] [address] [id number] [place] [address]- 2621 May, [facility] [place] [facility] [address] [id number] [place] [address]- 1521 Apr, [facility] [place] [facility] [address] [id number] [place] [address]- 1802 Apr, [facility] [place] [facility] [address] [id number] [place] [address]- 1042 Mar, [facility] [place] [facility] [address] [id number] [address]- 5510 Mar, [facility] [place] [facility] [address] [id number] [address]- 5165 Mar, [facility] [place] [facility] [address] [id number] [place] [address]- 8108 Mar, [facility] [place] [facility] [address] [id number] [place] [address]- 6305 Mar, [facility] [place] [facility] [address] [id number] [place] [address]- 5576 Mar, [facility] [place] [facility] [id number] [address]- 2546 Dec, [facility] [id number] [address]- 2546 Dec, [facility] [address] [address]- 2546 Nov, [facility] [id number] [address] Nov, [facility] [id number] [address] October, [facility] [id number] [address] October, [facility] [id number] [address] Sep, [facility] [id number] [address] Aug, [facility] [id number] [address] Aug, [facility] [id number] [address] Aug, IMMUNIZATIONS No Known Immunizations SOCIAL HISTORY Never Assessed REASON FOR VISIT EMR-[facility] [place] PLAN OF CARE VITAL SIGNS MEDICATIONS Unknown Medications RESULTS No Results PROCEDURES No Known procedures INSTRUCTIONS MEDICATIONS ADMINISTERED No Known Medications MEDICAL (GENERAL) HISTORY Type Description Date Medical History hyperlipidemia Medical History htn Medical History kidney failure stage 4 - dx in 2012 Medical History hypothyroidisim Medical History neuropathy Medical History COPD - See's Dr Burnette in [facility] Medical History Chronic Heart Failure Surgical History 2 cesareans Surgical History defibrillator - 2012 Hospitalization History pneumonia for a week 2016 Hospitalization History Hospitalized at [facility]- CHF, Chest pain. Dismissed 07/11/17 07/10/2017 Hospitalization History [facility] pneumonia, hypoxia-[facility] 07/30/17 Hospitalization History [facility]- [facility] PNA, Respiratory Failure. Transfered to [facility] 10/25/2017 Hospitalization History CHF/COPD 11/2017 Hospitalization History Flu 06/2018
--- OUTSIDE RECORDS SUMMARY | 2018-10-13 22:47 | XMS REPORT ---
Author Author Migration, Doctor Organization [facility] Address Unknown Phone Unavailable Care Team Providers Care Wafer Mounter Name Role Phone Migration, Doctor Unavailable Unavailable PROBLEMS Type Condition ICD9-CM Code JFK72-KX Code Onset Dates Condition Status SNOMED Code Problem Chronic systolic heart failure I50.22 Active 183795238 Problem Essential hypertension I10 Active 75771906 Problem Anemia associated with chronic renal failure D63.1 Active 935806521 Problem Mild depression F32.0 Active 439750832 Problem Paroxysmal atrial fibrillation I48.0 Active 385605359 Problem Anxiety F41.9 Active 49761650 Problem Cardiomyopathy I42.9 Active 65321543 Problem Chronic obstructive pulmonary disease, unspecified J44.9 Active 88462817 Problem Acute on chronic systolic CHF (congestive heart failure) I50.23 Active 104986584 Problem Chronic kidney disease, stage IV (severe) N18.4 Active 334908170 Problem Psychophysiological insomnia F51.04 Active 353177277 Problem Gastroesophageal reflux disease without esophagitis K21.9 Active 799433013 Problem Chronic obstructive pulmonary disease with (acute) exacerbation J44.1 Active 980599000 Problem Supplemental oxygen dependent Z99.81 Active 628634365822 Problem Acquired hypothyroidism E03.9 Active 943411438 Problem Slow transit constipation K59.01 Active 88637444 Problem COPD with acute lower respiratory infection J44.0 Active 751318217 ALLERGIES No Information ENCOUNTERS Encounter Location Date Diagnosis [facility] [id number], [place] [address] Aug, [facility] [address], [place] [address] Aug, Psychophysiological insomnia F51.04 [facility] [address] [place] [id number] Jul, Cellulitis of left lower extremity L03.116 [facility] [id number], [place] [address] Jul, [facility] [id number] [place] [address] 35110- 6326 13 Jul, 2018 Viral upper respiratory infection J06.9 and Nausea R11.0 [facility] [id number] [place] [address] 57803- 4777 06 Jul, 2018 Psychophysiological insomnia F51.04 [facility] [id number] [place] [address] 70882- 2141 05 Jul, 2018 Psychophysiological insomnia F51.04 [facility] [id number] [place] [address] 62126- 5136 Jul, [facility] [id number] [place] [address] 28990- 3289 Jul, [facility] [id number] [place] [address] 71261- 3217 Jul, Psychophysiological insomnia F51.04 [facility] [id number] [place] [address] 96486- 0235 Jun, [facility] [id number] [place] [address] 46634- 7665 Jun, [facility] [id number] [place] [address] 08425- 3009 Jun, [facility] [id number] [place] [address] 42466- 8148 Jun, [facility] [id number] [place] [address] 09190- 9427 Jun, [facility] [id number] [place] [address] 80478- 6375 Jun, [facility] [id number] [place] [address] 81504- 8203 Jun, [facility] [id number] [place] [address] 07161- 0447 Jun, Psychophysiological insomnia F51.04 ; Chronic obstructive pulmonary disease with (acute) exacerbation J44.1 ; Chronic systolic heart failure I50.22 ; Supplemental oxygen dependent Z99.81 ; Chronic kidney disease, stage IV (severe) N18.4 ; Nausea R11.0 ; Debility R53.81 and Diarrhea, unspecified type R19.7 [facility] [id number] [place] [address] 36698- 6608 May, [facility] [address] [address]- [address]37 May, [facility] [address] [address]- 2511 May, [place] [address] [address]- 1693 May, [place] [address] 07525- 8377 May, [facility] [id number] [place] [address] 94572- 3393 Apr, [facility] [address] [facility] [address] [place] [id number] Apr, Mild depression F32.0 ; Essential hypertension I10 ; Chronic systolic heart failure I50.22 ; Chronic obstructive pulmonary disease with (acute) exacerbation J44.1 ; Paroxysmal atrial fibrillation I48.0 ; Chronic kidney disease, stage IV (severe) N18.4 ; Acquired hypothyroidism E03.9 ; Clotted dialysis access, sequela T82.49XS ; Psychophysiological insomnia F51.04 and Gastroesophageal reflux disease without esophagitis K21.9 [facility] [facility] [id number] [place] [address] 03186- 3596 Apr, Psychophysiological insomnia F51.04 [facility] [id number] [place] [address] 71044- 7915 Apr, [facility] [facility] [id number] [place] [address] 67924- 1847 Apr, [place] [address] 94544- 4122 Mar, [facility] [address] [place] [id number] Mar, Acute respiratory failure with hypoxia J96.01 ; Acute pancreatitis, unspecified complication status, unspecified pancreatitis type K85.90 ; Chronic kidney disease, stage IV (severe) N18.4 ; Rash R21 and Gastroesophageal reflux disease without esophagitis K21.9 [facility] [facility] [id number] [place] [address] 86668- 1979 Mar, Psychophysiological insomnia F51.04 [facility] [id number] [place] [address] 13412- 0090 03 Mar, 2018 [facility] [address] [place] [id number] Feb, Vertigo R42 and Chronic kidney disease, stage IV (severe) N18.4 [place] [id number] [place] [address] 40065- 0645 24 Feb, 2018 [facility] [address] [place] [id number] 20 Feb, 2018 Cellulitis of breast N61.0 [facility] [id number] [place] [address] 09528- 1751 18 Feb, 2018 [address] [place] [id number] [place] [address] 76371- 0902 Feb, [address] [address] [place] [address] 62309- 8037 12 Feb, 2018 Psychophysiological insomnia F51.04 [facility] [address] [place] [id number] 11 Feb, 2018 Urinary tract infection without hematuria, site unspecified N39.0 ; Chronic kidney disease, stage IV (severe) N18.4 and Chronic systolic heart failure I50.22 [address] [address] [place] [address] 08281- 5358 10 Feb, 2018 [facility] [address] [id number] 04 Feb, 2018 Chronic kidney disease, stage IV (severe) N18.4 ; Chronic systolic heart failure I50.22 ; COPD with acute lower respiratory infection J44.0 ; Vertigo R42 ; Slow transit constipation K59.01 ; Hemorrhoids, unspecified hemorrhoid type K64.9 ; Acquired hypothyroidism E03.9 ; Candidiasis of breast B37.89 and Difficulty in urination R39.198 [facility] [id number] [place] [address] 18637- 6989 Jan, Acute on chronic systolic CHF (congestive heart failure) I50.23 ; Acute kidney failure, unspecified N17.9 ; Chronic kidney disease, stage III (moderate) N18.3 and Supplemental oxygen dependent Z99.81 [place] [address] 88828- 0339 Jan, Acute on chronic combined systolic and diastolic CHF ( congestive heart failure) I50.43 [place] [address] 56808- 5563 Jan, [facility] [address] [address] Jan, Irritant contact dermatitis due to cosmetics L24.3 ; Effusion of right wrist M25.431 and Pain in right wrist M25.531 [place] [id number] [place] [address] 48452- 5159 Dec, Chronic systolic heart failure I50.22 ; Chronic obstructive pulmonary disease with (acute) exacerbation J44.1 ; CKD (chronic kidney disease ) stage 4, GFR 15-29 ml/min N18.4 ; Cardiomyopathy I42.9 ; Dependence on supplemental oxygen Z99.81 and Psychophysiological insomnia F51.04 [facility] [id number] [place] [address] 53620- 5846 Dec, Anxiety F41.9 [facility] [facility] [id number] [place] [address] 39941- 9185 Dec, [facility] [facility] [id number] [place] [address] 67543- 0678 Dec, [place] [address], [place] [address] 8156 Dec, [facility] [address] [place] [id number] 10 Dec, 2017 Encounter for examination for admission to [facility]ci Z02.2 ; Chronic obstructive pulmonary disease, unspecified J44.9 ; Paroxysmal atrial fibrillation I48.0 ; CKD (chronic kidney disease) stage 4, GFR 15-29 ml/min N18.4 and Cardiomyopathy I42.9 [facility] [id number], [place] [address]- 9677 Dec, [facility] [facility] [id number], [place] [address]- 9074 Nov, Acute on chronic combined systolic and diastolic CHF ( congestive heart failure) I50.43 [facility] [address], [place] [address]- 3420 Nov, [facility] [facility] [id number], [place] [address]- 8356 Nov, [facility] [address], [place] [address] 4188 Nov, Chronic systolic heart failure I50.22 ; Paroxysmal atrial fibrillation I48.0 ; Chronic obstructive pulmonary disease with (acute) exacerbation J44.1 ; Chronic kidney disease, stage 4 (severe) N18.4 ; Pain in right hip M25.551 and Pain in left hip M25.552 [facility] [address], [place] [address]- 1874 Nov, Chronic kidney disease, stage 4 (severe) N18.4 [place] [address], [place] [address]- 0378 Nov, [address] [address], [place] [address]- 8040 Nov, [facility] [address], [place] [address]- 6921 October, Chronic obstructive pulmonary disease with (acute) exacerbation J44.1 ; Chronic systolic heart failure I50.22 ; CKD (chronic kidney disease) stage 4, GFR 15-29 ml/min N18.4 and Dependence on supplemental oxygen Z99.81 [facility] [facility] [id number] [place] [address] 01113- 9353 October, [facility] [facility] [id number] [place] [address] 49823- 1206 October, [address] [address] 05242- 1094 Sep, Chronic kidney disease, stage 4 (severe) N18.4 and Chronic kidney disease, stage IV (severe) N18.4 [facility] [id number] [place] [address] 13162- 1076 Sep, Chronic kidney disease, stage 4 (severe) N18.4 [facility] [facility] [id number] [place] [address] 31848- 2349 Sep, Anxiety F41.9 ; Paroxysmal atrial fibrillation I48.0 ; Chronic kidney disease, stage 4 (severe) N18.4 ; Chronic systolic heart failure I50.22 and Anemia associated with chronic renal failure D63.1 [facility] [facility] [id number] [place] [address] 70633- 1198 Sep, [place] [id number] [place] [address] 39872- 4922 Aug, [id number] [place] [address] 36566- 4835 Aug, [facility] [address] [facility] [address] [place] [id number] Aug, Acute on chronic combined systolic and diastolic CHF (congestive heart failure) I50.43 ; Essential hypertension I10 ; CKD (chronic kidney disease) stage 4, GFR 15-29 ml/min N18.4 ; Paroxysmal atrial fibrillation I48.0 and Mild depression F32.0 [id number] [place] [address] 45690- 3341 Aug, [place] [address], [place] [address]- 7996 Aug, [facility] [id number] [place] [address] 95564- 2116 14 Aug, 2017 Acute on chronic respiratory failure with hypoxia J96.21 ; Acute kidney failure, unspecified N17.9 ; Chronic kidney disease, stage 4 ( severe) N18.4 ; Acute on chronic combined systolic and diastolic CHF ( congestive heart failure) I50.43 ; Paroxysmal atrial fibrillation I48.0 and Cardiomyopathy, unspecified type I42.9 [facility] [address] [place] [address] 64505- 7822 Aug, [facility] [id number] [place] [address] 31511- 5327 14 Jul, 2017 [facility] [id number] [place] [address] 51578- 6987 Jul, [facility] [id number] [place] [address] 21239- 2416 Jul, [facility] [id number] [place] [address] 33767- 1307 Jul, [facility] [id number] [place] [address] 10369- 9939 06 Jul, 2017 Community acquired pneumonia of right lower lobe of lung J18.1 ; CKD (chronic kidney disease) stage 4, GFR 15-29 ml/min N18.4 and Shortness of breath R06.02 [facility] [id number] [place] [address] [id number] 05 Jul, 2017 [facility] [id number] [place] [address] 07369- 6518 Jun, Anxiety F41.9 [facility] [id number] [place] [address] 22593- 7055 13 Apr, 2017 Anxiety F41.9 [facility] [id number] [place] [address] 85045- 5774 10 Apr, 2017 Cough R05 and Pneumonia of right lower lobe due to infectious organism J18.[address] 19691- 0667 07 Apr, [address] 21985- 1303 Apr, Chronic kidney disease, stage IV (severe) N18.4 and COPD exacerbation J44.[address] 99619- 5100 Feb, Chronic systolic heart failure I50.22 ; Essential hypertension I10 ; Anemia associated with chronic renal failure D63.1 and Chronic kidney disease, stage 4 (severe) N18.[address] 69162- 8899 Feb, Anxiety F41.[address] 50461- 4463 Feb, [address] 83056- 9103 Feb, [address] 60912- 3023 Jan, Other fatigue R53.83 ; Otalgia of both ears H92.03 and Urinary urgency R39.[address] 81216- 5719 Jan, Acute non-recurrent maxillary sinusitis J01.00 ; Chronic systolic heart failure I50.22 ; Stage 3 chronic kidney disease N18.3 and Mild depression F32.[address] 09845- 4520 14 Sep, [address] 50522- 7904 Sep, [address] 34978- 1150 Feb, [facility] [place] [facility] [address] [id number] [place] [address]- 5051 Feb, [facility] [place] [facility] [address] [id number] [place] [address]- 8948 Dec, [facility] [place] [facility] [address] [id number] [place] [address]- 7566 Dec, [facility] [place] [facility] [address] [id number] [place] [address]- 5140 Nov, [facility] [place] [facility] [address] [id number] [place] [address]- 5599 Nov, [facility] [place] [facility] [address] [id number] [place] [address]- 4944 Nov, [facility] [place] [facility] [address] [id number] [place] [address]- 9337 Nov, [facility] [place] [facility] [address] [id number] [place] [address]- 4624 October, [facility] [place] [facility] [address] [id number] [place] [address]- 2302 October, [facility] [place] [facility] [address] [id number] [place] [address]- 3517 Sep, [facility] [place] [facility] [address] [id number] [place] [address]- 0301 Sep, [facility] [place] [facility] [address] [id number] [place] [address]- 3077 Sep, [facility] [place] [facility] [address] [id number] [place] [address]- 5332 Sep, [facility] [place] [facility] [address] [id number] [place] [address]- 6844 Sep, [facility] [place] [facility] [address] [id number] [place] [address]- 9615 Aug, [facility] [place] [facility] [address] [id number], [place] [address]- 1968 Aug, [facility] [place] [facility] [address] [id number] [place] [address]- 2479 Aug, [facility] [place] [facility] [address] [id number] [place] [address]- 9016 Aug, [facility] [place] [facility] [address] [id number] [place] [address]- 2648 Aug, [facility] [place] [facility] [address] [id number] [place] [address]- 2769 Aug, [facility] [place] [facility] [address] [id number] [place] [address]- 5491 Aug, [facility] [place] [facility] [address] [id number] [place] [address]- 0275 Aug, [facility] [place] [facility] [address] [facility] [id number] [place] [address]- 6899 Jul, [facility] [place] [facility] [address] [id number] [place] [address]- 1657 Jul, [facility] [place] [facility] [address] [id number] [place] [address]- 7618 Jul, [facility] [place] [facility] [address] [facility] [id number] [place] [address]- 6178 Jul, [facility] [place] [facility] [address] [facility] [id number] [place] [address]- 1915 Jul, [facility] [place] [facility] [address] [id number] [place] [address]- 2549 Jul, [facility] [place] [facility] [address] [id number] [place] [address]- 8346 Jun, [facility] [place] [facility] [address] [id number] [place] [address]- 6246 Jun, [facility] [place] [facility] [address] [id number], [place] [address]- 7619 Jun, [facility] [place] [facility] [address] [id number] [place] [address]- 7985 Jun, [facility] [address] [id number] [place] [address]- 7739 Jun, [facility] [address] [id number] [place] [address]- 7743 May, [facility] [place] [facility] [address] [id number] [place] [address]- 9560 May, [facility] [address] [id number] [place] [address]- 3820 May, [facility] [address] [id number] [place] [address]- 1645 May, [facility] [address] [id number] [place] [address]- 9806 May, [facility] [address] [id number] [place] [address]- 5702 Apr, [facility] [address] [id number] [place] [address]- 6565 Apr, [facility] [address] [id number] [place] [address]- 8552 Mar, [facility] [place] [facility] [address] [id number] [place] [address]- 1412 Mar, [facility] [place] [facility] [address] [id number], [place] [address]- 3180 Mar, [facility] [place] [facility] [address] [id number] [place] [address]- 4910 Mar, [facility] [place] [facility] [address] [id number] [place] [address]- 3635 Feb, [facility] [place] [facility] [address] [id number] [place] [address]- 3976 Jan, [facility] [place] [facility] [address] [id number] [place] [address]- 0053 Jan, [facility] [place] [facility] [address] [id number] [place] [address]- 8765 Aug, [facility] [place] [facility] [address] [id number] [place] [address] Jul, [facility] [place] [facility] [address] [id number] [place] [address]- 8625 Jun, [facility] [place] [facility] [address] [id number] [place] [address]- 3671 May, [facility] [place] [facility] [address] [id number] [place] [address]- 7245 May, [facility] [place] [facility] [address] [id number] [place] [address]- 5140 May, [facility] [place] [facility] [address] [id number] [place] [address]- 9961 May, [facility] [place] [facility] [address] [id number] [place] [address]- 9569 Apr, [facility] [place] [facility] [address] [id number] [place] [address]- 0457 Apr, [facility] [place] [facility] [address] [id number] [place] [address]- 1537 Mar, [facility] [place] [facility] [address] [id number], [place] [address]- 1123 Mar, [facility] [place] [facility] [address] [id number], [place] [address]- 4207 Mar, [facility] [place] [facility] [address] [id number] [place] [address]- 0666 Mar, [facility] [place] [facility] [address] [id number] [place] [address]- 3308 Mar, [facility] [place] [facility] [address] [id number] [place] [address]- 4497 Mar, [facility] [place] [facility] [id number], [place] [address]- 2546 Dec, [facility] [id number], [place] [address]- 2546 Dec, [facility] [address], [place] [address]- 2546 Nov, [facility] [id number], [place] [address]- 2546 Nov, [facility] [address], [place] [address]- 2546 October, [facility] [address], [place] [address]- 2546 October, [facility] [address], [place] [address]- 3426 Sep, [facility] [address], [place] [address]- 2546 Aug, [facility] [id number], [place] [address]- 1086 Aug, [facility] [id number], [place] [address] 2546 Aug, IMMUNIZATIONS No Known Immunizations SOCIAL HISTORY Never Assessed REASON FOR VISIT EMR-[facility] [place] PLAN OF CARE VITAL SIGNS MEDICATIONS Unknown [...] a week 2016 Hospitalization History Hospitalized at [facility]- CHF, Chest pain. Dismissed 07/11/17 07/10/2017 Hospitalization History [facility] pneumonia, hypoxia-[facility] 07/30/17 Hospitalization History [facility]- [facility] PNA, Respiratory Failure. Transfered to [facility] 10/25/2017 Hospitalization History CHF/COPD 11/2017 Hospitalization History Flu 06/2018
[2018-10-13 22:49] LABS: CLARITY,URINE CLEAR; COLOR,URINE YELLOW; GLUCOSE, URINE (UA) NEGATIVE (NEGATIVE); KETONES,URINE 1+ (NEGATIVE); LEUKOCYTE ESTERASE ,URINE 3+ (NEGATIVE); NITRITE,URINE POSITIVE (NEGATIVE); PH,URINE 5 (5-9); PROTEIN,URINE 3+ (NEGATIVE); UROBILINOGEN,URINE 4 MG/DL (NORMAL)
[2018-10-13 22:57] LABS: BACTERIA,URINE TRACE /HPF; BILIRUBIN,URINE 2+ (NEGATIVE); WBC,URINE 25-50 /HPF; YEAST,URINE LARGE /HPF
--- NOTE | 2018-10-14 08:19 | Diagnostic Imaging Report ---
PATIENT HISTORY: Shortness of air. TECHNIQUE: Frontal view of the chest. COMPARISON: 10/04/2018. FINDINGS: The cardiomegaly appears unchanged. There is central vascular congestion which is mildly improved. There is effusion/airspace opacity in the left lung base which is similar to the prior exam. Small round densities likely represent calcified granulomas. Left-sided AICD appears stable. Right dual lumen catheter is stable. No pneumothorax is seen. IMPRESSION: Stable cardiomegaly with mildly improved central vascular congestion. Left basilar airspace opacities and left pleural effusion appear unchanged. Dictated by: Dictated on workstation # [id number]
--- NOTE | 2018-10-14 08:40 | ED Respiratory ---
General Chief Complaint: Respiratory Problems Stated Complaint: SOB Source: patient (LIMITED HISTORIAN), EMS, old records History of Present Illness Date Seen by Provider: Oct 13, 2018 Time Seen by Provider: 21:42 Initial Comments PT ARRIVES VIA EMS FROM [facility] C/O SHORTNESS OF BREATH--HAS CHRONIC SHORTNESS OF BREATH, BUT HAS GOTTEN WORSE OVER THE LAST COUPLE OF DAYS PT ALSO C/O FEVER--BEGAN 1 HOURS AGO AND WAS 99.6 PT HAS ESRD ON DIALYSIS--[id number]-FRIDAY. HAD DIALYSIS YESTERDAY FREQUENTLY HAS CHF/FLUID OVERLOAD PT HAS COPD WELL, AND IS ON O2 AT 4L/NC CONTINUOUSLY--EMS REPORT O2 SAT 94% ON 4L/NC--EMS GIVING DUO NEB TREATMENT ON ARRIVAL. PT HAS CHRONIC COUGH, BUT HAS WORSENED OVER THE LAST COUPLE OF DAYS--NON- PRODUCTIVE PT STATES HER RIBS AND CHEST HURT ONLY WITH COUGHING STATES HER LEGS BEGAN TO SWELL 3 HOURS AGO PT WAS SEEN HERE 10/04/18 FOR SAME SYMPTOMS AND TRANSFERRED TO [facility], AND WAS DISMISSED A COUPLE OF DAYS AGO PT WITH MULTITUDE OF VISITS--MOST FOR SIMILAR COMPLAINTS--6 VISITS IN 2019 PT TESTED + FOR INFLUENZA B 07/22/18, AND TESTED NEGATIVE FOR INFLUENZA ON SUBSEQUENT VISITS, INCLUDING 09/21/18 AND 10/04/18 HAD CARDIAC CATH IN AUGUST, AND LEFT AV FISTULA PLACED IN AUGUST ( RIGHT AV FISTULA FAILED) AND CURRENTLY HAS RIGHT CENTRAL LINE DIALYSIS CATHETER. PT STATES SHE WISHES TO BE A FULL CODE PCP: DR. VERNON NAPHTHOL SOAPING MACHINE OPERATOR: DR. GONZALEZ [facility] BILINGUAL BRANCH MANAGER: DR. DANGELO Allergies and Home Medications Allergies Coded Allergies: propoxyphene napsylate (Unverified Allergy, Severe, SEVERE NAUSEA AND VOMITING , 04/03/13) meperidine (Unverified Allergy, Unknown, 12/19/14) venom-honey bee (Verified Allergy, Unknown, 09/19/13) lisinopril (Verified Adverse Reaction, Unknown, PT STATES "BOTTOMS OUT" HER BLOOD PRESSURE, 03/12/15) Patient states that it "bottoms out" her blood pressure. She will refuse to take this medication and reports it as an allergy. Home Medications Acetaminophen 500 Mg Tablet, 1,000 MG PO Q6H PRN for PAIN-MILD, (Reported) Albuterol Sulfate 1 Puff Puff, 2 PUFF IH Q6H PRN for SHORTNESS OF BREATH, ( Reported) Amiodarone HCl 200 Mg Tablet, 200 MG PO DAILY, (Reported) Bisacodyl 5 Mg Tablet.dr, 5 MG PO DAILY PRN for CONSTIPATION-4TH LINE, (Reported ) Carvedilol 6.25 Mg Tablet, 6.25 MG PO BID, (Reported) Cephalexin 500 Mg Capsule, 500 MG PO BID, (Reported) 2 DAY SUPPLY START DATE 09-03-18 EVENING DOSE AND END DATE 09-05-18 AM DOSE Docusate Sodium 100 Mg Tablet, 100 MG PO DAILY PRN for CONSTIPATION-1ST LINE, ( Reported) Ipratropium/Albuterol Sulfate 3 Ml Ampul.neb, 3 ML IH Q4H PRN for SHORTNESS OF BREATH, (Reported) Isosorbide Dinitrate 30 Mg Tablet, 15 MG PO BID, (Reported) TAKES 1/2 (30MG) TABLET Levothyroxine Sodium 25 Mcg Tablet, 25 MCG PO DAILY, (Reported) Loperamide HCl 2 Mg Capsule, 2 MG PO Q6H PRN for DIARRHEA, (Reported) Lorazepam 0.5 Mg Tablet, 0.5 MG PO HS, (Reported) Mag Hydrox/Al Hydrox/Simeth 30 Ml Oral.susp, 30 ML PO Q4H PRN for INDIGESTION, ( Reported) Midodrine HCl 10 Mg Tablet, 10 MG PO DAILY, (Reported) Multivitamins-Min/FA/Ginkgo 1 Each Tablet, 1 TAB PO DAILY, (Reported) Ondansetron HCl 4 Mg Tablet, 4 MG PO Q6H PRN for NAUSEA/VOMITING-1ST LINE, ( Reported) Oxycodone HCl 5 Mg Tablet, 5 MG PO Q6H PRN for PAIN-SEVERE, (Reported) Polyethylene Glycol 3350 17 Gm Powd.pack, 17 GM PO Q8H PRN for CONSTIPATION-2ND LINE, (Reported) Sertraline HCl 100 Mg Tablet, 100 MG PO HS, (Reported) Patient Home Medication List Home Medication List Reviewed: Yes Review of Systems Review of Systems Constitutional: see HPI, fever, malaise, weakness EENTM: no symptoms reported Respiratory: see HPI, cough, orthopnea; No phlegm; short of breath, wheezing Cardiovascular: see HPI, edema Gastrointestinal: no symptoms reported; No abdominal pain, No nausea, No vomiting Genitourinary: other (PT DOES MAKE A SMALL AMOUNT OF URINE) Musculoskeletal: see HPI Skin: no symptoms reported Psychiatric/Neurological: No Symptoms Reported Hematologic/Lymphatic: Anemia Past Bbdktxs-Epkwdu-Rclsli Hx Patient Social History Alcohol Use: Denies Use Recreational Drug Use: Yes (THC USE IN PAST) Drug of Choice: THC USE IN PAST Smoking Status: Former Smoker (> 1 PPD) Type Used: Cigarettes Former Smoker, Quit: Jul 09, 2017 2nd Hand Smoke Exposure: No Recent Foreign Travel: No Contact w/Someone Who Travel: No Recent Hopitalizations: Yes Immunizations Up To Date Tetanus Booster (TDap): Unknown PED Vaccines UTD: No Date of Pneumonia Vaccine: Mar 30, 2013 Date of Influenza Vaccine: Mar 30, 2018 Seasonal Allergies Seasonal Allergies: Yes Past Medical History Surgeries: Yes (CARDIAC CATHS--NO INTERNVENTION; LAST ONE 08/2018; RIGHT CENTRAL DIALYSIS LINE; RIGHT AV FISTULA-FAILED; LEFT AV FISTULA PLACED 08/2018; ) Cardiac, Section, Defibrillator, Dialysis, Hysterectomy, Vascular Surgery Respiratory: Yes (CHRONIC RESPIRATORY FAILURE/HYPOXIA--O2 DEPENDENT AT 4L/NC; CHF/PULMONARY EDEMA/FLUID OVERLOAD) Asthma, Pneumonia, Sleep Apnea, COPD Currently Using CPAP: No Currently Using BIPAP: Yes Cardiac: Yes (CHF/PULMONARY EDEMA/FLUID OVERLOAD; EF 20%--NON-ISCHEMIC CARDIOMYOPATHY; HX OF LEFT HEART THROMBUS) Atrial Fibrillation, Cardiomyopathy, Chronic Edema/Swelling, Coronary Artery Disease, High Cholesterol, Hypertension Neurological: Yes Headaches /Migraines 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 Disorders: Yes (Hysterectomy) 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 Disorders: Denies 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, Menopausal Sexually Transmitted Disease: No HIV/AIDS: No Genitourinary: Yes (ESRD ON DIALYSIS --STILL MAKES A LITTLE URINE , BUT NOT EVERY DAY) Renal Failure, Dialysis, UTI-Chronic Gastrointestinal: Yes (HX OF ELEVATED LFT'S) Gastroesophageal Reflux, Liver Disease/Jaundice, Hiatal Hernia Musculoskeletal: Yes (CHRONIC GENERALIZED PAIN AND WEAKNESS; FREQUENT FALLS/ POOR MOBILITY/POOR COORDINATION) Arthritis Endocrine: Yes Hypothyroidsim HEENT: Yes Cataract Loss of Vision: Denies Hearing Impairment: Denies Cancer: No Psychosocial: Yes Sleep Difficulties, Anxiety, Depression Integumentary: Yes (CHRONIC SORES FROM CONSTANT "PICKING" ) Recent Skin Changes Blood Disorders: Yes (ANEMIA) Adverse Reaction/Blood Tranf: No Family Medical History Cancer 19 FATHER (HODGKINS ) 19 MOTHER (BRAIN TUMOR ) Congenital heart disease 19 MOTHER Congestive heart failure 19 MOTHER Family history: Cardiovascular disease 19 MOTHER G8 SISTER G8 SISTER Family history: Hypertension 19 MOTHER G8 SISTER G8 SISTER Heart disease 19 MOTHER G8 SISTER G8 SISTER History of - respiratory disease 19 MOTHER G8 BROTHER G8 SISTER Heart Disease, Cancer, Hypertension Physical Exam Capillary Refill : Height: 4'9.00" Weight: 124lbs. 0.1oz. [id number]; 29.7 BMI Method:Stated General Appearance: WD/WN, no apparent distress, other (TALKS IN FULL SENTENCES ) HEENT: other (MILD BILATERAL PERIORBITAL EDEMA AND EXOPHTHALMOS) Neck: normal inspection Respiratory: no respiratory distress, no accessory muscle use, rales (INBASES) , other (FREQUENT MOIST COUGH) Cardiovascular: regular rate, rhythm, no JVD, no murmur, other (RIGHT CENTRAL DIALYSIS LINE; DEFIBRILLATOR LEFT CHEST) Gastrointestinal: non tender, soft Extremities: normal range of motion, no calf tenderness, pedal edema (3+ EDEMA ON RIGHT, 2+ EDEMA ON LEFT--PT STATES IS NORMAL FOR HER. 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 as tested, no motor/sensory deficits, alert, normal mood/affect, oriented x 3 Skin: warm/dry, pallor Focused Exam Lactate Level 10/13/18 21:48: Lactic Acid Level 3.23*H 10/13/18 23:59: Lactic Acid Level 2.23*H Lactic Acid Level Laboratory Tests Test 10/13/18 21:48 10/13/18 23:59 Lactic Acid Level 3.23 MMOL/L (0.50-2.00) *H 2.23 MMOL/L (0.50-2.00) *H Procedures/Interventions Date of ETT Placement: Aug 20, 2017 Time of ETT Placement: 628 Progress/Results/Core Measures Suspected Sepsis SIRS Temperature: Pulse: Respiratory Rate: Laboratory Tests 10/13/18 21:48: White Blood Count 8.6 Blood Pressure / Mean: 10/13/18 21:48: Lactic Acid Level 3.23*H 10/13/18 23:59: Lactic Acid Level 2.23*H Laboratory Tests 10/13/18 21:48: Creatinine 2.42H, INR Comment 1.3, Platelet Count 270, Total Bilirubin 1.5H Results/Orders Lab Results Laboratory Tests Test 10/13/18 21:48 10/13/18 22:35 10/13/18 23:59 Range/Units White Blood Count 8.6 4.3-11.0 10^3/uL Red Blood Count 2.78 L 4.35-5.85 10^6/uL Hemoglobin 8.6 L 11.5-16.0 G/DL Hematocrit 27 L 35-52 % Mean Corpuscular Volume 97 80-99 FL Mean Corpuscular Hemoglobin 31 25-34 PG Mean Corpuscular Hemoglobin Concent 32 32-36 G/DL Red Cell Distribution Width 19.1 H 10.0-14.5 % Platelet Count 270 130-400 10^3/uL Mean Platelet Volume 12.4 H 7.4-10.4 FL Neutrophils (%) (Auto) 78 H 42-75 % Lymphocytes (%) (Auto) 9 L 12-44 % Monocytes (%) (Auto) 12 0-12 % Eosinophils (%) (Auto) 0 0-10 % Basophils (%) (Auto) 0 0-10 % Neutrophils # (Auto) 6.7 1.8-7.8 X 10^3 Lymphocytes # (Auto) 0.8 L 1.0-4.0 X 10^3 Monocytes # (Auto) 1.0 0.0-1.0 X 10^3 Eosinophils # (Auto) 0.0 0.0-0.3 10^3/uL Basophils # (Auto) 0.0 0.0-0.1 10^3/uL Prothrombin Time 16.5 H 12.2-14.7 SEC INR Comment 1.3 0.8-1.4 Activated Partial Thromboplast Time 41 H 24-35 SEC Sodium Level 128 L 135-145 MMOL/L Potassium Level 4.2 3.6-5.0 MMOL/L Chloride Level 93 L 98-107 MMOL/L Carbon Dioxide Level 20 L 21-32 MMOL/L Anion Gap 15 H 5-14 MMOL/L Blood Urea Nitrogen 18 7-18 MG/DL Creatinine 2.42 H 0.60-1.30 MG/DL Estimat Glomerular Filtration Rate 21 BUN/Creatinine Ratio 7 Glucose Level 101 70-105 MG/DL Lactic Acid Level 3.23 *H 2.23 *H 0.50-2.00 MMOL/L Calcium Level 8.3 L 8.5-10.1 MG/DL Corrected Calcium 9.0 8.5-10.1 MG/DL Total Bilirubin 1.5 H 0.1-1.0 MG/DL Aspartate Amino Transf (AST/SGOT) 26 5-34 U/L Alanine Aminotransferase (ALT/SGPT) 22 0-55 U/L Alkaline Phosphatase 158 H 40-136 U/L Troponin I < 0.028 <0.028 NG/ML Total Protein 5.4 L 6.4-8.2 GM/DL Albumin 3.1 L 3.2-4.5 GM/DL Urine Color YELLOW Urine Clarity CLEAR Urine pH 5 5-9 Urine Specific [place] 1.015 L 1.016-1.022 Urine Protein 3+ H NEGATIVE Urine Glucose (UA) NEGATIVE NEGATIVE Urine Ketones 1+ H NEGATIVE Urine Nitrite POSITIVE H NEGATIVE Urine Bilirubin 2+ H NEGATIVE Urine Urobilinogen 4 H NORMAL MG/DL Urine Leukocyte Esterase 3+ H NEGATIVE Urine RBC (Auto) 5+ H NEGATIVE Urine RBC 10-25 H /HPF Urine WBC 25-50 H /HPF Urine Squamous Epithelial Cells 5-10 /HPF Urine Crystals NONE /LPF Urine Bacteria TRACE /HPF Urine Casts NONE /LPF Urine Mucus NEGATIVE /LPF Urine Yeast LARGE H /HPF Urine Culture Indicated NO Micro Results Microbiology 10/13/18 Influenza Types A,B Antigen (MARIA VICTORIA) - Final, Complete My Orders Orders - YANE WAKEFIELD DO Cbc With Automated Diff (10/13/18 21:52) Comprehensive Metabolic Panel (10/13/18 21:52) Blood Culture (10/13/18 21:52) Urinalysis (10/13/18 21:52) Urine Culture (10/13/18 21:52) Protime With Inr (10/13/18 21:52) Partial Thromboplastin Time (10/13/18 21:52) Chest 1 View, Ap/Pa Only (10/13/18 21:52) Ed Iv/Invasive Line Start (10/13/18 21:52) Ed Iv/Invasive Line Start (10/13/18 21:52) Ekg Tracing (10/13/18 21:52) Troponin I (10/13/18 21:52) Vital Signs Adult Sepsis Patie Q15M (10/13/18 21:52) O2 (10/13/18 21:52) Remove Rings In Anticipation O (10/13/18 21:52) Lactic Acid Analyzer (10/13/18 21:52) Influenza A And B Antigens (10/13/18 21:52) Cefepime Injection (Maxipime Injection) (10/13/18 22:00) Dexamethasone Injection (Decadron Inject (10/13/18 22:00) Rt Request For Service (10/13/18 21:52) Methylprednisolone Sod Succ (Solu-Medrol (10/13/18 21:52) Monitor-Rhythm Ecg Trace Only (10/13/18 21:52) Straight Cath For Spec.-Adult (10/13/18 21:52) Oseltamivir 75 Mg Capsule (Tamiflu 75 (10/13/18 22:45) Medications Given in ED Current Medications Medications Dose Ordered Sig/Cade Route Start Time Stop Time Status Last Admin Dose Admin Cefepime HCl 1000 mg/Sterile Water 10 ml @ 200 mls/hr ONCE ONCE IV 10/13/18 22:00 10/13/18 22:02 DC 10/13/18 22:35 200 MLS/HR Dexamethasone Sodium Phosphate 20 mg ONCE ONCE IH 10/13/18 22:00 10/13/18 22:01 DC 10/13/18 22:42 20 MG Vital Signs/I&O Capillary Refill : Progress Note : Progress Note NO DETERIORATION IN PT'S CONDITION DURING ER STAY ECG Initial ECG Impression Date: Oct 13, 2018 Initial ECG Impression Time: 22:56 Initial ECG Rate: 101 Initial ECG Rhythm: S.Tach Initial ECG Impression: Nonspecific Changes Initial ECG Comparisson: Unchanged Diagnostic Imaging Comments CXR--CHF, PENDING RADIOLOGIST REVIEW Reviewed: Reviewed by Me Departure Communication (Admissions) [id number]--CALLED [facility] HAVE BED, PAGING HOSPITALIST [id number]--SPOKE WITH DR. ASHLEY WRIGHT, ACCEPTS PT FOR ADMIT. Impression Primary Impression: COPD exacerbation Additional Impressions: Acute on chronic systolic CHF (congestive heart failure) ESRD on dialysis Disposition: 02 XFER SHT-TRM HOSP Condition: Stable Transfer Transfer Facility: [facility] Method of Transfer: EMS Departure-Patient Inst. Referrals: TEAGAN VERNON MD (PCP) Primary Care Physician YANE WAKEFIELD DO Oct 14, 2018 08:40
== END 2018-10-14 00:41 | disposition short-term general hospital (02) ==
LOC: EDUNIT# 21:43 → ER 21:44
DX: J44.1 Chronic obstructive pulmonary disease with (acute) exacerbation (principal); I13.2 Hypertensive heart and chronic kidney disease with heart failure and with stage 5 chronic kidney disease, or end stage renal disease; N18.6 End stage renal disease; I50.23 Acute on chronic systolic (congestive) heart failure; I48.91 Unspecified atrial fibrillation; G47.30 Sleep apnea, unspecified; G43.909 Migraine, unspecified, not intractable, without status migrainosus; E78.00 Pure hypercholesterolemia, unspecified; I42.9 Cardiomyopathy, unspecified; I25.10 Atherosclerotic heart disease of native coronary artery without angina pectoris; K21.9 Gastro-esophageal reflux disease without esophagitis; E03.9 Hypothyroidism, unspecified; F41.9 Anxiety disorder, unspecified; F32.9 Major depressive disorder, single episode, unspecified; D64.9 Anemia, unspecified; Z82.49 Family history of ischemic heart disease and other diseases of the circulatory system; Z80.7 Family history of other malignant neoplasms of lymphoid, hematopoietic and related tissues; Z87.09 Personal history of other diseases of the respiratory system; Z99.2 Dependence on renal dialysis; Z87.440 Personal history of urinary (tract) infections; Z87.19 Personal history of other diseases of the digestive system; Z88.8 Allergy status to other drugs, medicaments and biological substances; Z99.81 Dependence on supplemental oxygen; Z87.891 Personal history of nicotine dependence; Z98.890 Other specified postprocedural states; Z90.710 Acquired absence of both cervix and uterus; Z95.810 Presence of automatic (implantable) cardiac defibrillator; Z87.01 Personal history of pneumonia (recurrent)
CPT/HCPCS: 36415; 71045; 80053; 81000; 83605; 84484; 85025; 85610; 85730; 87040; 87088; 87804; 93005

== ENCOUNTER 2018-10-25 01:52 | Emergency (ER) | payer MEDICARE ==
[~2018-10-25] VITALS: Ht 144.8 cm; Wt 55.3 kg
--- OUTSIDE RECORDS SUMMARY | 2018-10-25 02:02 | XMS REPORT ---
Author Author Migration, Doctor Organization [facility] Address Unknown Phone Unavailable Care Team Providers Care Rail Assembler Name Role Phone Migration, Doctor Unavailable Unavailable PROBLEMS Type Condition ICD9-CM Code FRU93-DJ Code Onset Dates Condition Status SNOMED Code Problem Chronic systolic heart failure I50.22 Active 715332807 Problem Essential hypertension I10 Active 66371159 Problem Anemia associated with chronic renal failure D63.1 Active 181506873 Problem Mild depression F32.0 Active 594430782 Problem Paroxysmal atrial fibrillation I48.0 Active 924342383 Problem Anxiety F41.9 Active 87964763 Problem Cardiomyopathy I42.9 Active 30975399 Problem Chronic obstructive pulmonary disease, unspecified J44.9 Active 37377555 Problem Acute on chronic systolic CHF (congestive heart failure) I50.23 Active 782557339 Problem Chronic kidney disease, stage IV (severe) N18.4 Active 975690686 Problem Psychophysiological insomnia F51.04 Active 339186697 Problem Gastroesophageal reflux disease without esophagitis K21.9 Active 391238390 Problem Chronic obstructive pulmonary disease with (acute) exacerbation J44.1 Active 003546152 Problem Supplemental oxygen dependent Z99.81 Active 941337120209 Problem Acquired hypothyroidism E03.9 Active 138442965 Problem Slow transit constipation K59.01 Active 27310457 Problem COPD with acute lower respiratory infection J44.0 Active 697802546 ALLERGIES No Information ENCOUNTERS Encounter Location Date Diagnosis [facility] [id number] [address] Sep, Psychophysiological insomnia F51.04 [facility] [address] [address] Sep, [facility] [address] [place] [id number] Sep, Pneumonia of both lungs due to infectious organism, unspecified part of lung J18.9 [facility] [address] [address] Aug, [facility] [id number] [place] [address] 93605- 6212 Aug, Psychophysiological insomnia F51.04 [facility] [address] [place] [id number] Jul, Cellulitis of left lower extremity L03.116 [facility] [id number] [place] [address] 42060- 1389 Jul, [facility] [id number] [place] [address] 00730- 9372 13 Jul, 2018 Viral upper respiratory infection J06.9 and Nausea R11.0 [facility] [id number] [place] [address] 11663- 0646 06 Jul, 2018 Psychophysiological insomnia F51.04 [facility] [id number] [place] [address] 24409- 3705 05 Jul, 2018 Psychophysiological insomnia F51.04 [facility] [id number] [place] [address] 75422- 8776 Jul, [facility] [id number] [place] [address] 22353- 0647 Jul, [facility] [id number] [place] [address] 20145- 3392 Jul, Psychophysiological insomnia F51.04 [facility] [id number] [place] [address] 92514- 7984 Jun, [facility] [id number] [place] [address] 63072- 0710 Jun, [facility] [id number] [place] [address] 95485- 3808 Jun, [facility] [id number] [place] [address] 60097- 4943 Jun, [facility] [id number] [place] [address] 75664- 3066 Jun, [facility] [address] [address] 2049 Jun, [facility] [address] [place] [address] 21184- 7385 Jun, [facility] [id number] [place] [address] 13042- 1298 Jun, Psychophysiological insomnia F51.04 ; Chronic obstructive pulmonary disease with (acute) exacerbation J44.1 ; Chronic systolic heart failure I50.22 ; Supplemental oxygen dependent Z99.81 ; Chronic kidney disease, stage IV (severe) N18.4 ; Nausea R11.0 ; Debility R53.81 and Diarrhea, unspecified type R19.7 [address] [id number] [place] [address] 14382- 6106 May, [facility] [facility] [id number] [place] [address] 24547- 5835 May, [place] [id number] [place] [address] 15075- 8910 May, [facility] [id number] [place] [address] 12102- 7468 May, [place] [id number] [place] [address] 15469- 0352 May, [id number] [place] [address] 30857- 8910 Apr, [facility] [address] [place] [id number] Apr, Mild depression F32.0 ; Essential hypertension I10 ; Chronic systolic heart failure I50.22 ; Chronic obstructive pulmonary disease with (acute) exacerbation J44.1 ; Paroxysmal atrial fibrillation I48.0 ; Chronic kidney disease, stage IV (severe) N18.4 ; Acquired hypothyroidism E03.9 ; Clotted dialysis access, sequela T82.49XS ; Psychophysiological insomnia F51.04 and Gastroesophageal reflux disease without esophagitis K21.9 [id number] [address] 360[address] Apr, Psychophysiological insomnia F51.04 [facility] [facility] [id number] [place] [address] 43901- 1130 14 Apr, 2018 [place] [facility] [id number] [place] [address] 11202- 5027 Apr, [place] [id number] [place] [address] 46021- 5403 Mar, [facility] [address] [place] [id number] Mar, Acute respiratory failure with hypoxia J96.01 ; Acute pancreatitis, unspecified complication status, unspecified pancreatitis type K85.90 ; Chronic kidney disease, stage IV (severe) N18.4 ; Rash R21 and Gastroesophageal reflux disease without esophagitis K21.9 [place] [id number] [place] [address] 52475- 4263 Mar, Psychophysiological insomnia F51.04 [place] [id number] [place] [address] 53322- 5433 03 Mar, 2018 [facility] [address] [place] [id number] Feb, Vertigo R42 and Chronic kidney disease, stage IV (severe) N18.4 [address] [address] [address]- 2863 24 Feb, 2018 [facility] [address] [place] [id number] Feb, Cellulitis of breast N61.0 [place] [id number] [place] [address] 31247- 9649 18 Feb, 2018 [place] [id number] [place] [address] 76464- 8320 Feb, [address] [address] [place] [address] 83609- 7706 12 Feb, 2018 Psychophysiological insomnia F51.04 [facility] [address] [place] [id number] 11 Feb, 2018 Urinary tract infection without hematuria, site unspecified N39.0 ; Chronic kidney disease, stage IV (severe) N18.4 and Chronic systolic heart failure I50.22 [facility] [id number] [place] [address] 81499- 9362 10 Feb, 2018 [facility] [address] [place] [id number] Feb, Chronic kidney disease, stage IV (severe) N18.4 ; Chronic systolic heart failure I50.22 ; COPD with acute lower respiratory infection J44.0 ; Vertigo R42 ; Slow transit constipation K59.01 ; Hemorrhoids, unspecified hemorrhoid type K64.9 ; Acquired hypothyroidism E03.9 ; Candidiasis of breast B37.89 and Difficulty in urination R39.198 [facility] [address] [place] [address] 55569- 5138 06 Jan, 2018 Acute on chronic systolic CHF (congestive heart failure) I50.23 ; Acute kidney failure, unspecified N17.9 ; Chronic kidney disease, stage III (moderate) N18.3 and Supplemental oxygen dependent Z99.81 [facility] [id number] [place] [address] 20736- 1378 03 Jan, 2018 Acute on chronic combined systolic and diastolic CHF ( congestive heart failure) I50.43 [place] [address] [place] [address] 88547- 3175 02 Jan, 2018 [facility] [address] [place] [address] 76699 -3686 Jan, Irritant contact dermatitis due to cosmetics L24.3 ; Effusion of right wrist M25.431 and Pain in right wrist M25.531 [place] [id number] [place] [address] 32587- 2009 Dec, Chronic systolic heart failure I50.22 ; Chronic obstructive pulmonary disease with (acute) exacerbation J44.1 ; CKD (chronic kidney disease ) stage 4, GFR 15-29 ml/min N18.4 ; Cardiomyopathy I42.9 ; Dependence on supplemental oxygen Z99.81 and Psychophysiological insomnia F51.04 [address] [address] 47[address] Dec, Anxiety F41.9 [place] [id number] [address]- 0892 Dec, [address] [address]- 1017 Dec, [place] [id number] [place] [address] 01010- 8692 Dec, [facility] [address] [place] [id number] 10 Dec, 2017 Encounter for examination for [facility] Z02.2 ; Chronic obstructive pulmonary disease, unspecified J44.9 ; Paroxysmal atrial fibrillation I48.0 ; CKD (chronic kidney disease) stage 4, GFR 15-29 ml/min N18.4 and Cardiomyopathy I42.9 [address] [id number] [place] [address] 07301- 4157 Dec, [address] [id number] [place] [address] 07303- 7183 Nov, Acute on chronic combined systolic and diastolic CHF ( congestive heart failure) I50.43 [place] [address] [address]- 0509 Nov, [address] [address]- 2788 Nov, [address] [address]- 8765 Nov, Chronic systolic heart failure I50.22 ; Paroxysmal atrial fibrillation I48.0 ; Chronic obstructive pulmonary disease with (acute) exacerbation J44.1 ; Chronic kidney disease, stage 4 (severe) N18.4 ; Pain in right hip M25.551 and Pain in left hip M25.552 [place] [address] [address]- 4149 Nov, Chronic kidney disease, stage 4 (severe) N18.4 [facility] [address] [address]- 4759 Nov, [facility] [id number] [place] [address] 30259- 8654 Nov, [facility] [id number] [place] [address] 00673- 0998 October, Chronic obstructive pulmonary disease with (acute) exacerbation J44.1 ; Chronic systolic heart failure I50.22 ; CKD (chronic kidney disease) stage 4, GFR 15-29 ml/min N18.4 and Dependence on supplemental oxygen Z99.81 [facility] [id number] [place] [address] 19660- 9206 October, [facility] [id number] [place] [address] 97614- 2946 October, [facility] [id number] [place] [address] 80928- 1981 Sep, Chronic kidney disease, stage 4 (severe) N18.4 and Chronic kidney disease, stage IV (severe) N18.4 [facility] [id number] [place] [address] 78072- 1319 Sep, Chronic kidney disease, stage 4 (severe) N18.4 [facility] [id number] [place] [address] 85554- 0172 Sep, Anxiety F41.9 ; Paroxysmal atrial fibrillation I48.0 ; Chronic kidney disease, stage 4 (severe) N18.4 ; Chronic systolic heart failure I50.22 and Anemia associated with chronic renal failure D63.1 [facility] [id number] [place] [address] 03865- 5792 Sep, [facility] [id number] [place] [address] 15976- 3075 Aug, [facility] [id number] [place] [address] 32792- 4956 Aug, [facility] [address] [place] [id number] Aug, Acute on chronic combined systolic and diastolic CHF (congestive heart failure) I50.43 ; Essential hypertension I10 ; CKD (chronic kidney disease) stage 4, GFR 15-29 ml/min N18.4 ; Paroxysmal atrial fibrillation I48.0 and Mild depression F32.0 [address] [place] [address] 68780- 2348 Aug, [facility] [id number] [place] [address] 65783- 3767 Aug, [place] [id number] [place] [address] 38515- 7240 Aug, Acute on chronic respiratory failure with hypoxia J96.21 ; Acute kidney failure, unspecified N17.9 ; Chronic kidney disease, stage 4 ( severe) N18.4 ; Acute on chronic combined systolic and diastolic CHF ( congestive heart failure) I50.43 ; Paroxysmal atrial fibrillation I48.0 and Cardiomyopathy, unspecified type I42.9 [address] [address] [place] [address] 73130- 6041 Aug, [place] [id number] [place] [address] 24723- 6146 14 Jul, 2017 [facility] [address] [place] [address] 20788- 8567 Jul, [facility] [address] [place] [address] 03472- 1417 Jul, [facility] [address] [place] [address] 49462- 5783 Jul, [facility] [id number] [place] [address] 69163- 1854 06 Jul, 2017 Community acquired pneumonia of right lower lobe of lung J18.1 ; CKD (chronic kidney disease) stage 4, GFR 15-29 ml/min N18.4 and Shortness of breath R06.02 [facility] [id number] [place] [address] [id number] 05 Jul, 2017 [place] [address] [place] [address] 49962- 8052 Jun, Anxiety F41.9 [place] [id number] [place] [address] 81245- 0358 Apr, Anxiety F41.9 [place] [id number] [place] [address] 88832- 0810 10 Apr, 2017 Cough R05 and Pneumonia of right lower lobe due to infectious organism J18.1 [place] [id number] [place] [address] 20762- 6293 Apr, [place] [id number] [place] [address] 35986- 8658 Apr, Chronic kidney disease, stage IV (severe) N18.4 and COPD exacerbation J44.1 [place] [id number] [place] [address] 06624- 6555 Feb, Chronic systolic heart failure I50.22 ; Essential hypertension I10 ; Anemia associated with chronic renal failure D63.1 and Chronic kidney disease, stage 4 (severe) N18.4 [place] [id number] [place] [address] 01427- 1965 Feb, Anxiety F41.9 [place] [id number] [place] [address] 95879- 9662 Feb, [place] [id number] [place] [address] 57219- 6887 Feb, [place] [id number] [place] [address] 75966- 2936 Jan, Other fatigue R53.83 ; Otalgia of both ears H92.03 and Urinary urgency R39.15 [place] [address] [place] [address] 26004- 3597 Jan, Acute non-recurrent maxillary sinusitis J01.00 ; Chronic systolic heart failure I50.22 ; Stage 3 chronic kidney disease N18.3 and Mild depression F32.0 [facility] [address] [facility] [id number] [place] [address]- 1112 14 Sep, 2014 [facility] [address] [facility] [id number] [place] [address]- 0337 Sep, [facility] [address] [facility] [id number] [place] [address]- 1348 Feb, [facility] [address] [id number] [place] [address]- 9593 Feb, [facility] [address] [facility] [id number] [place] [address]- 3845 Dec, [facility] [address] [facility] [id number] [place] [address]- 7028 Dec, [facility] [id number] [place] [address]- 0683 Nov, [facility] [address] [facility] [id number] [place] [address]- 0017 Nov, [facility] [id number] [place] [address]- 0574 Nov, [facility] [id number] [place] [address]- 5292 Nov, [facility] [id number] [place] [address]- 0077 October, [facility] [address] [facility] [id number] [address]- 3015 October, [facility] [address] [facility] [id number] [place] [address]- 4317 Sep, [facility] [address] [facility] [id number] [place] [address]- 0493 Sep, [facility] [id number] [address]- 1528 Sep, [facility] [place] [facility] [address] [id number] [place] [address]- 1270 Sep, [facility] [place] [facility] [address] [id number] [place] [address]- 7272 Sep, [facility] [place] [facility] [address] [id number] [place] [address]- 9837 Aug, [facility] [place] [facility] [address] [id number] [place] [address]- 6304 Aug, [facility] [place] [facility] [address] [id number] [place] [address]- 4828 Aug, [facility] [place] [facility] [address] [id number] [place] [address]- 9431 Aug, [facility] [place] [facility] [address] [id number] [place] [address]- 3741 Aug, [facility] [place] [facility] [address] [id number] [place] [address]- 4789 Aug, [facility] [place] [facility] [address] [id number] [place] [address]- 2482 Aug, [facility] [place] [facility] [address] [id number] [place] [address]- 8803 Aug, [facility] [place] [facility] [address] [id number] [place] [address]- 1593 Jul, [facility] [place] [facility] [address] [id number] [place] [address]- 2205 Jul, [facility] [place] [facility] [address] [id number] [place] [address]- 7632 Jul, [facility] [place] [facility] [address] [id number] [place] [address]- 9588 Jul, [facility] [place] [facility] [address] [id number] [place] [address]- 0543 Jul, [facility] [place] [facility] [address] [id number] [address]- 2596 Jul, [facility] [address] [id number] [place] [address]- 3683 Jun, [facility] [place] [facility] [address] [id number] [address]- 5242 Jun, [facility] [address] [facility] [id number] [place] [address]- 1020 14 Jun, 2013 [facility] [place] [facility] [address] [id number] [place] [address]- 6819 Jun, [facility] [address] [id number] [place] [address]- 9778 Jun, [facility] [place] [facility] [address] [id number] [place] [address]- 8053 May, [facility] [address] [facility] [id number] [address]- 0552 May, [facility] [place] [facility] [address] [id number] [place] [address]- 1324 May, [facility] [address] [facility] [id number] [address]- 1887 May, [facility] [place] [facility] [address] [facility] [id number] [address]- 1347 May, [facility] [place] [facility] [address] [id number] [place] [address]- 6862 Apr, [facility] [place] [facility] [address] [id number] [place] [address]- 9224 Apr, [facility] [place] [facility] [address] [id number] [place] [address]- 2615 Mar, [facility] [place] [facility] [address] [facility] [id number] [address]- 6098 Mar, [facility] [place] [facility] [address] [facility] [id number] [place] [address]- 5804 Mar, [facility] [place] [facility] [address] [id number] [place] [address] 2548 Mar, [facility] [place] [facility] [address] [id number] [place] [address]- 5857 16 Feb, 2013 [facility] [place] [facility] [address] [id number] [place] [address]- 5126 Jan, [facility] [place] [facility] [address] [id number] [place] [address]- 0964 Jan, [facility] [place] [facility] [address] [id number] [place] [address]- 6091 Aug, [facility] [place] [facility] [address] [id number] [place] [address]- 5197 Jul, [facility] [place] [facility] [address] [id number] [place] [address]- 0267 Jun, [facility] [place] [facility] [address] [id number] [place] [address]- 7343 May, [facility] [place] [facility] [address] [id number] [place] [address]- 6611 May, [facility] [place] [facility] [address] [id number] [place] [address]- 7878 May, [facility] [place] [facility] [address] [id number] [place] [address]- 4056 May, [facility] [place] [facility] [address] [id number] [place] [address]- 4983 Apr, [facility] [place] [facility] [address] [id number] [place] [address]- 0025 Apr, [facility] [place] [facility] [address] [id number] [place] [address]- 0246 Mar, [facility] [place] [facility] [address] [id number] [place] [address] Mar, [facility] [place] [facility] [address] [id number] [place] [address] Mar, [facility] [id number] [address] Mar, [facility] [id number] [address] Mar, [facility] [id number] [address] Mar, [facility] [id number] [address] Dec, [facility] [id number] [address] Dec, [facility] [id number] [address] Nov, [facility] [id number] [address] Nov, [facility] [id number] [address] October, [facility] [id number] [address] October, [facility] [id number] [address] Sep, [facility] [id number] [address] Aug, [facility] [id number] [address] Aug, [facility] [id number] [address] Aug, IMMUNIZATIONS No Known Immunizations SOCIAL HISTORY Never Assessed REASON FOR VISIT EMR-[facility] [place] PLAN OF CARE VITAL SIGNS MEDICATIONS Unknown Medications RESULTS No Results PROCEDURES No Known procedures INSTRUCTIONS MEDICATIONS ADMINISTERED No Known Medications MEDICAL (GENERAL) HISTORY Type Description Date Medical History hyperlipidemia Medical History htn Medical History kidney failure stage 4 - dx in 2012 Medical History hypothyroidisim Medical History neuropathy Medical History COPD - See's Dr Burnette in [facility] Medical History Chronic Heart Failure Surgical History 2 [facility] Surgical History defibrillator - 2012 Hospitalization History pneumonia for a week 2016 Hospitalization History Hospitalized at [facility]- CHF, Chest pain. Dismissed 07/11/17 07/10/2017 Hospitalization History [facility] pneumonia, hypoxia-[facility] 07/30/17 Hospitalization History [facility]- [facility] PNA, Respiratory Failure. Transfered to [facility] 10/25/2017 Hospitalization History CHF/COPD 11/2017 Hospitalization History Flu 06/2018
--- OUTSIDE RECORDS SUMMARY | 2018-10-25 02:03 | XMS REPORT ---
Author Author Migration, Doctor Organization [facility] Address Unknown Phone Unavailable Care Team Providers Care Caving Guide Name Role Phone Migration, Doctor Unavailable Unavailable PROBLEMS Type Condition ICD9-CM Code [id number] Code Onset Dates Condition Status SNOMED Code Problem Chronic systolic heart failure I50.22 Active 147371077 Problem Essential hypertension I10 Active 12543734 Problem Anemia associated with chronic renal failure D63.1 Active 923710909 Problem Mild depression F32.0 Active 032072825 Problem Paroxysmal atrial fibrillation I48.0 Active 472280197 Problem Anxiety F41.9 Active 69913341 Problem Cardiomyopathy I42.9 Active 25255285 Problem Chronic obstructive pulmonary disease, unspecified J44.9 Active 43676179 Problem Acute on chronic systolic CHF (congestive heart failure) I50.23 Active 122959209 Problem Chronic kidney disease, stage IV (severe) N18.4 Active 892768516 Problem Psychophysiological insomnia F51.04 Active 199622253 Problem Gastroesophageal reflux disease without esophagitis K21.9 Active 506993407 Problem Chronic obstructive pulmonary disease with (acute) exacerbation J44.1 Active 991664827 Problem Supplemental oxygen dependent Z99.81 Active 795974071309 Problem Acquired hypothyroidism E03.9 Active 959694311 Problem Slow transit constipation K59.01 Active 63303700 Problem COPD with acute lower respiratory infection J44.0 Active 517001535 ALLERGIES No Information ENCOUNTERS Encounter Location Date Diagnosis [facility] [id number] [address] Sep, Psychophysiological insomnia F51.04 [facility] [address], [place] [address] Sep, [facility] [address] [place] [id number] Sep, Pneumonia of both lungs due to infectious organism, unspecified part of lung J18.9 [facility] [address], [place] [address] Aug, [facility] [id number] [place] [address] 31446- 6744 Aug, Psychophysiological insomnia F51.04 [facility] [address] [facility] [address] [place] [id number] Jul, Cellulitis of left lower extremity L03.116 [facility] [id number] [place] [address] 73569- 9346 Jul, [facility] [id number] [place] [address] 16870- 8913 13 Jul, 2018 Viral upper respiratory infection J06.9 and Nausea R11.0 [facility] [id number] [place] [address] 95780- 1588 06 Jul, 2018 Psychophysiological insomnia F51.04 [facility] [id number] [place] [address] 47487- 2537 05 Jul, 2018 Psychophysiological insomnia F51.04 [facility] [id number] [place] [address] 10014- 5908 Jul, [facility] [id number] [place] [address] 84372- 5668 Jul, [facility] [id number] [place] [address] 78337- 0735 Jul, Psychophysiological insomnia F51.04 [facility] [id number] [place] [address] 44664- 0184 Jun, [facility] [id number] [place] [address] 62733- 1029 Jun, [facility] [id number] [place] [address] 27112- 0145 Jun, [facility] [id number] [place] [address] 16757- 9176 Jun, [facility] [id number] [place] [address] 56187- 9244 Jun, [facility] [address], [place] [address] 8197 Jun, [facility] [id number] [place] [address] 72470- 4360 Jun, [facility] [id number] [place] [address] 82060- 5655 Jun, Psychophysiological insomnia F51.04 ; Chronic obstructive pulmonary disease with (acute) exacerbation J44.1 ; Chronic systolic heart failure I50.22 ; Supplemental oxygen dependent Z99.81 ; Chronic kidney disease, stage IV (severe) N18.4 ; Nausea R11.0 ; Debility R53.81 and Diarrhea, unspecified type R19.7 [place] [id number] [place] [address] 30720- 4440 May, [facility] [id number] [place] [address] 18277- 3438 May, [place] [id number] [place] [address] 17215- 5391 May, [place] [facility] [id number] [place] [address] 94795- 6997 May, [place] [facility] [id number] [place] [address] 34833- 9726 May, [id number] [place] [address] 25233- 4820 Apr, [facility] [address] [facility] [address] [place] [id number] Apr, Mild depression F32.0 ; Essential hypertension I10 ; Chronic systolic heart failure I50.22 ; Chronic obstructive pulmonary disease with (acute) exacerbation J44.1 ; Paroxysmal atrial fibrillation I48.0 ; Chronic kidney disease, stage IV (severe) N18.4 ; Acquired hypothyroidism E03.9 ; Clotted dialysis access, sequela T82.49XS ; Psychophysiological insomnia F51.04 and Gastroesophageal reflux disease without esophagitis K21.9 [id number] [address] 7555 Apr, Psychophysiological insomnia F51.04 [place] [facility] [id number] [place] [address] 56872- 5708 14 Apr, 2018 [place] [facility] [id number] [place] [address] 62266- 6334 Apr, [place] [id number] [place] [address] 72197- 7136 Mar, [facility] [address] [place] [id number] Mar, Acute respiratory failure with hypoxia J96.01 ; Acute pancreatitis, unspecified complication status, unspecified pancreatitis type K85.90 ; Chronic kidney disease, stage IV (severe) N18.4 ; Rash R21 and Gastroesophageal reflux disease without esophagitis K21.9 [place] [id number] [place] [address] 21596- 7282 Mar, Psychophysiological insomnia F51.04 [place] [id number] [place] [address] 31057- 5913 03 Mar, 2018 [facility] [address] [place] [id number] Feb, Vertigo R42 and Chronic kidney disease, stage IV (severe) N18.4 [place] [address], [place] [address]- 6463 24 Feb, 2018 [facility] [address] [place] [id number] Feb, Cellulitis of breast N61.0 [place] [facility] [id number] [place] [address] 07697- 1086 18 Feb, 2018 [place] [id number] [place] [address] 00190- 4505 Feb, [place] [address] [place] [address] 87610- 3048 12 Feb, 2018 Psychophysiological insomnia F51.04 [facility] [address] [place] [id number] 11 Feb, 2018 Urinary tract infection without hematuria, site unspecified N39.0 ; Chronic kidney disease, stage IV (severe) N18.4 and Chronic systolic heart failure I50.22 [facility] [id number] [place] [address] 32366- 9772 10 Feb, 2018 [facility] [address] [place] [id number] Feb, Chronic kidney disease, stage IV (severe) N18.4 ; Chronic systolic heart failure I50.22 ; COPD with acute lower respiratory infection J44.0 ; Vertigo R42 ; Slow transit constipation K59.01 ; Hemorrhoids, unspecified hemorrhoid type K64.9 ; Acquired hypothyroidism E03.9 ; Candidiasis of breast B37.89 and Difficulty in urination R39.198 [facility] [address] [place] [address] 21367- 6410 06 Jan, 2018 Acute on chronic systolic CHF (congestive heart failure) I50.23 ; Acute kidney failure, unspecified N17.9 ; Chronic kidney disease, stage III (moderate) N18.3 and Supplemental oxygen dependent Z99.81 [facility] [id number] [place] [address] 43609- 0577 03 Jan, 2018 Acute on chronic combined systolic and diastolic CHF ( congestive heart failure) I50.43 [place] [address] [place] [address] 27327- 5137 02 Jan, 2018 [facility] [address] [place] [address] 26435 -7532 Jan, Irritant contact dermatitis due to cosmetics L24.3 ; Effusion of right wrist M25.431 and Pain in right wrist M25.531 [place] [id number] [place] [address] 68435- 1671 Dec, Chronic systolic heart failure I50.22 ; Chronic obstructive pulmonary disease with (acute) exacerbation J44.1 ; CKD (chronic kidney disease ) stage 4, GFR 15-29 ml/min N18.4 ; Cardiomyopathy I42.9 ; Dependence on supplemental oxygen Z99.81 and Psychophysiological insomnia F51.04 [place] [address], [place] [address] 8272 Dec, Anxiety F41.9 [place] [id number] [address]- 8631 Dec, [place] [address] [address]- 2544 Dec, [place] [id number] [place] [address] 15295- 6853 Dec, [facility] [address] [place] [id number] 10 Dec, 2017 Encounter for examination for admission to shelter Z02.2 ; Chronic obstructive pulmonary disease, unspecified J44.9 ; Paroxysmal atrial fibrillation I48.0 ; CKD (chronic kidney disease) stage 4, GFR 15-29 ml/min N18.4 and Cardiomyopathy I42.9 [place] [id number] [place] [address] 87105- 8252 Dec, [place] [id number] [place] [address] 29336- 6947 Nov, Acute on chronic combined systolic and diastolic CHF ( congestive heart failure) I50.43 [place] [address], [place] [address]- 0687 Nov, [place] [address], [place] [address]- 1571 Nov, [place] [address], [place] [address]- 5198 Nov, Chronic systolic heart failure I50.22 ; Paroxysmal atrial fibrillation I48.0 ; Chronic obstructive pulmonary disease with (acute) exacerbation J44.1 ; Chronic kidney disease, stage 4 (severe) N18.4 ; Pain in right hip M25.551 and Pain in left hip M25.552 [place] [address], [place] [address]- 2502 Nov, Chronic kidney disease, stage 4 (severe) N18.4 [facility] [address], [place] [address] 1991 Nov, [facility] [id number] [place] [address] 13575- 9152 Nov, [facility] [id number] [place] [address] 15697- 8996 October, Chronic obstructive pulmonary disease with (acute) exacerbation J44.1 ; Chronic systolic heart failure I50.22 ; CKD (chronic kidney disease) stage 4, GFR 15-29 ml/min N18.4 and Dependence on supplemental oxygen Z99.81 [facility] [id number] [place] [address] 31778- 1695 October, [facility] [id number] [place] [address] 72389- 6129 October, [facility] [id number] [place] [address] 31145- 6332 Sep, Chronic kidney disease, stage 4 (severe) N18.4 and Chronic kidney disease, stage IV (severe) N18.4 [facility] [id number] [place] [address] 51273- 3768 Sep, Chronic kidney disease, stage 4 (severe) N18.4 [facility] [id number] [place] [address] 93298- 2993 Sep, Anxiety F41.9 ; Paroxysmal atrial fibrillation I48.0 ; Chronic kidney disease, stage 4 (severe) N18.4 ; Chronic systolic heart failure I50.22 and Anemia associated with chronic renal failure D63.1 [facility] [id number] [place] [address] 06061- 1952 Sep, [facility] [id number] [place] [address] 79147- 4615 Aug, [facility] [id number] [place] [address] 06674- 1315 Aug, [facility] [address] [place] [id number] Aug, Acute on chronic combined systolic and diastolic CHF (congestive heart failure) I50.43 ; Essential hypertension I10 ; CKD (chronic kidney disease) stage 4, GFR 15-29 ml/min N18.4 ; Paroxysmal atrial fibrillation I48.0 and Mild depression F32.0 [place] [address] [place] [address] 43275- 1566 Aug, [facility] [id number] [place] [address] 92645- 1412 Aug, [place] [id number] [place] [address] 01299- 9436 Aug, Acute on chronic respiratory failure with hypoxia J96.21 ; Acute kidney failure, unspecified N17.9 ; Chronic kidney disease, stage 4 ( severe) N18.4 ; Acute on chronic combined systolic and diastolic CHF ( congestive heart failure) I50.43 ; Paroxysmal atrial fibrillation I48.0 and Cardiomyopathy, unspecified type I42.9 [place] [address] [place] [address] 99385- 1126 Aug, [place] [id number] [place] [address] 60349- 2277 14 Jul, 2017 [facility] [address] [place] [address] 86222- 5843 Jul, [facility] [address] [place] [address] 46798- 2111 Jul, [facility] [address] [place] [address] 90666- 3551 Jul, [facility] [id number] [place] [address] 30954- 4249 06 Jul, 2017 Community acquired pneumonia of right lower lobe of lung J18.1 ; CKD (chronic kidney disease) stage 4, GFR 15-29 ml/min N18.4 and Shortness of breath R06.02 [facility] [id number] [place] [address] [id number] 05 Jul, 2017 [place] [address] [place] [address] 91397- 9525 Jun, Anxiety F41.9 [place] [id number] [place] [address] 47566- 2641 Apr, Anxiety F41.9 [place] [id number] [place] [address] 89435- 7110 10 Apr, 2017 Cough R05 and Pneumonia of right lower lobe due to infectious organism J18.1 [place] [id number] [place] [address] 67177- 3332 Apr, [place] [id number] [place] [address] 08369- 4648 Apr, Chronic kidney disease, stage IV (severe) N18.4 and COPD exacerbation J44.1 [place] [id number] [place] [address] 49414- 2118 Feb, Chronic systolic heart failure I50.22 ; Essential hypertension I10 ; Anemia associated with chronic renal failure D63.1 and Chronic kidney disease, stage 4 (severe) N18.4 [place] [id number] [place] [address] 79359- 7526 Feb, Anxiety F41.9 [place] [id number] [place] [address] 86095- 7573 Feb, [place] [id number] [place] [address] 62215- 7864 Feb, [place] [id number] [place] [address] 11178- 3577 Jan, Other fatigue R53.83 ; Otalgia of both ears H92.03 and Urinary urgency R39.15 [place] [address] [place] [address] 89046- 5121 Jan, Acute non-recurrent maxillary sinusitis J01.00 ; Chronic systolic heart failure I50.22 ; Stage 3 chronic kidney disease N18.3 and Mild depression F32.0 [facility] [address] [facility] [id number] [place] [address]- 3937 14 Sep, 2014 [facility] [address] [facility] [id number] [place] [address]- 0898 Sep, [facility] [address] [facility] [id number] [place] [address]- 9879 Feb, [facility] [address] [id number] [place] [address]- 1794 Feb, [facility] [address] [facility] [id number] [place] [address]- 6648 Dec, [facility] [address] [facility] [id number] [place] [address]- 7214 Dec, [facility] [id number] [address]- 2399 Nov, [facility] [address] [facility] [id number] [place] [address]- 6911 Nov, [facility] [id number] [address]- 1616 Nov, [facility] [id number] [place] [address]- 7184 Nov, [facility] [id number] [place] [address]- 9496 October, [facility] [address] [facility] [id number] [address]- 0055 October, [facility] [address] [facility] [id number] [place] [address]- 7594 Sep, [facility] [address] [facility] [id number] [place] [address]- 5755 Sep, [facility] [id number] [address]- 7334 Sep, [facility] [place] [facility] [address] [id number] [place] [address]- 3100 Sep, [facility] [place] [facility] [address] [id number] [place] [address]- 2138 Sep, [facility] [place] [facility] [address] [id number] [place] [address]- 0460 Aug, [facility] [place] [facility] [address] [id number] [place] [address]- 0822 Aug, [facility] [place] [facility] [address] [id number] [place] [address]- 7313 Aug, [facility] [place] [facility] [address] [id number] [place] [address]- 1270 Aug, [facility] [place] [facility] [address] [id number] [place] [address]- 7847 Aug, [facility] [place] [facility] [address] [id number] [place] [address]- 5748 Aug, [facility] [place] [facility] [address] [id number] [place] [address]- 2079 Aug, [facility] [place] [facility] [address] [id number] [place] [address]- 5367 Aug, [facility] [place] [facility] [address] [id number] [place] [address]- 3403 Jul, [facility] [place] [facility] [address] [id number] [place] [address]- 0352 Jul, [facility] [place] [facility] [address] [id number] [place] [address]- 0339 Jul, [facility] [place] [facility] [address] [id number] [place] [address]- 0487 Jul, [facility] [place] [facility] [address] [id number] [place] [address]- 3947 Jul, [facility] [place] [facility] [address] [id number] [address]- 4827 Jul, [facility] [address] [id number] [place] [address]- 1606 Jun, [facility] [place] [facility] [address] [id number], [place] [address]- 3226 Jun, [facility] [address] [facility] [id number] [place] [address]- 7755 14 Jun, 2013 [facility] [place] [facility] [address] [id number] [place] [address]- 5323 Jun, [facility] [address] [id number] [place] [address]- 5327 Jun, [facility] [place] [facility] [address] [id number] [place] [address]- 3187 May, [facility] [address] [facility] [id number], [place] [address]- 1815 May, [facility] [place] [facility] [address] [id number], [place] [address]- 4745 May, [facility] [address] [facility] [id number], [place] [address]- 6239 May, [facility] [place] [facility] [address] [facility] [id number], [place] [address]- 1329 May, [facility] [place] [facility] [address] [id number], [place] [address]- 2150 Apr, [facility] [place] [facility] [address] [id number] [address]- 8269 Apr, [facility] [place] [facility] [address] [id number], [place] [address]- 1918 Mar, [facility] [place] [facility] [address] [facility] [id number], [place] [address]- 1899 Mar, [facility] [place] [facility] [address] [facility] [id number], [place] [address]- 9220 Mar, [facility] [place] [facility] [address] [id number] [place] [address] 2548 Mar, [facility] [place] [facility] [address] [id number] [place] [address]- 0900 16 Feb, 2013 [facility] [place] [facility] [address] [id number] [place] [address]- 1506 Jan, [facility] [place] [facility] [address] [id number] [place] [address]- 2307 Jan, [facility] [place] [facility] [address] [id number] [place] [address]- 4908 Aug, [facility] [place] [facility] [address] [id number] [place] [address]- 9439 Jul, [facility] [place] [facility] [address] [id number] [place] [address]- 5988 Jun, [facility] [place] [facility] [address] [id number] [place] [address]- 9529 May, [facility] [place] [facility] [address] [id number] [place] [address]- 8576 May, [facility] [place] [facility] [address] [id number] [place] [address]- 8674 May, [facility] [place] [facility] [address] [id number] [place] [address]- 2730 May, [facility] [place] [facility] [address] [id number] [place] [address]- 1662 Apr, [facility] [place] [facility] [address] [id number] [place] [address]- 3279 Apr, [facility] [place] [facility] [address] [id number] [place] [address]- 9846 Mar, [facility] [place] [facility] [address] [id number] [place] [address]- 6946 Mar, [facility] [place] [facility] [address] [id number] [place] [address]- 5239 Mar, [facility] [id number] [address]- 6739 Mar, [facility] [address] [address]- 4416 Mar, [facility] [id number] [address]- 4022 Mar, [facility] [id number] [address] Dec, [facility] [id number] [address] Dec, [facility] [id number] [address] Nov, [facility] [id number] [address] Nov, [facility] [id number] [address] October, [facility] [id number] [address] October, [facility] [id number] [place] [address] Sep, [facility] [id number] [place] [address] Aug, [facility] [id number] [place] [address] Aug, [facility] [address] [id number] [address] Aug, IMMUNIZATIONS No Known Immunizations SOCIAL HISTORY Never Assessed REASON FOR VISIT EMR-[facility] [place] PLAN OF CARE VITAL SIGNS MEDICATIONS Unknown Medications RESULTS No Results PROCEDURES No Known procedures INSTRUCTIONS MEDICATIONS ADMINISTERED No Known Medications MEDICAL (GENERAL) HISTORY Type Description Date Medical History hyperlipidemia Medical History htn Medical History kidney failure stage 4 - dx in 2012 Medical History hypothyroidisim Medical History neuropathy Medical History COPD - See's Dr Burnette in [facility] Medical History Chronic Heart Failure Surgical History 2 cesareans Surgical History defibrillator - 2012 Hospitalization History pneumonia for a week 2016 Hospitalization History Hospitalized at [facility]- CHF, Chest pain. Dismissed 07/11/17 07/10/2017 Hospitalization History [facility] pneumonia, hypoxia-[facility] 07/30/17 Hospitalization History [facility]- [facility] PNA, Respiratory Failure. Transfered to [place] 10/25/2017 Hospitalization History CHF/COPD 11/2017 Hospitalization History Flu 06/2018
--- OUTSIDE RECORDS SUMMARY | 2018-10-25 02:03 | XMS REPORT ---
Author Author Migration, Doctor Organization [facility] Address Unknown Phone Unavailable Care Team Providers Care Office Administration Instructor Name Role Phone Migration, Doctor Unavailable Unavailable PROBLEMS Type Condition ICD9-CM Code CKJ31-BO Code Onset Dates Condition Status SNOMED Code Problem Chronic systolic heart failure I50.22 Active 261457173 Problem Essential hypertension I10 Active 69385560 Problem Anemia associated with chronic renal failure D63.1 Active 087477829 Problem Mild depression F32.0 Active 670608556 Problem Paroxysmal atrial fibrillation I48.0 Active 975135879 Problem Anxiety F41.9 Active 93295006 Problem Cardiomyopathy I42.9 Active 46105394 Problem Chronic obstructive pulmonary disease, unspecified J44.9 Active 59465123 Problem Acute on chronic systolic CHF (congestive heart failure) I50.23 Active 298524416 Problem Chronic kidney disease, stage IV (severe) N18.4 Active 129899793 Problem Psychophysiological insomnia F51.04 Active 248795300 Problem Gastroesophageal reflux disease without esophagitis K21.9 Active 292549651 Problem Chronic obstructive pulmonary disease with (acute) exacerbation J44.1 Active 197532078 Problem Supplemental oxygen dependent Z99.81 Active 856099885811 Problem Acquired hypothyroidism E03.9 Active 704309236 Problem Slow transit constipation K59.01 Active 81624097 Problem COPD with acute lower respiratory infection J44.0 Active 841149927 ALLERGIES No Information ENCOUNTERS Encounter Location Date Diagnosis [facility] [address] [id number] [address] Sep, [facility] [address] [place] [id number] Sep, Pneumonia of both lungs due to infectious organism, unspecified part of lung J18.9 [facility] [address] [facility] [id number] [address] Aug, [facility] [id number] [address] 12[address] Aug, Psychophysiological insomnia F51.04 [facility] [address] [place] [id number] Jul, Cellulitis of left lower extremity L03.116 [facility] [id number] [place] [address] 05504- 3260 20 Jul, 2018 [facility] [id number] [place] [address] 67238- 3621 Jul, Viral upper respiratory infection J06.9 and Nausea R11.0 [facility] [id number] [place] [address] 04752- 7682 06 Jul, 2018 Psychophysiological insomnia F51.04 [facility] [id number] [place] [address] 54835- 5498 05 Jul, 2018 Psychophysiological insomnia F51.04 [facility] [id number] [place] [address] 02018- 2586 Jul, [facility] [id number] [place] [address] 79612- 0539 Jul, [facility] [id number] [place] [address] 56399- 6581 Jul, Psychophysiological insomnia F51.04 [facility] [id number] [place] [address] 15673- 8227 Jun, [facility] [id number] [place] [address] 36191- 0869 Jun, [facility] [id number] [place] [address] 64679- 2764 Jun, [facility] [id number] [place] [address] 43405- 3034 Jun, [facility] [id number] [place] [address] 14603- 9524 Jun, [facility] [id number] [place] [address] 51960- 0908 Jun, [facility] [id number] [place] [address] 09503- 5137 Jun, [facility] [id number] [place] [address] 95065- 0864 Jun, Psychophysiological insomnia F51.04 ; Chronic obstructive pulmonary disease with (acute) exacerbation J44.1 ; Chronic systolic heart failure I50.22 ; Supplemental oxygen dependent Z99.81 ; Chronic kidney disease, stage IV (severe) N18.4 ; Nausea R11.0 ; Debility R53.81 and Diarrhea, unspecified type R19.7 [facility] [id number] [place] [address] 54520- 7636 May, [facility] [id number] [place] [address] 57486- 4924 May, [facility] [id number] [place] [address] 71332- 8813 May, [facility] [id number] [place] [address] 79651- 2131 May, [id number] [place] [address] 91938- 6607 May, [facility] [id number] [place] [address] 41008- 4828 Apr, [facility] [address] [place] [id number] Apr, Mild depression F32.0 ; Essential hypertension I10 ; Chronic systolic heart failure I50.22 ; Chronic obstructive pulmonary disease with (acute) exacerbation J44.1 ; Paroxysmal atrial fibrillation I48.0 ; Chronic kidney disease, stage IV (severe) N18.4 ; Acquired hypothyroidism E03.9 ; Clotted dialysis access, sequela T82.49XS ; Psychophysiological insomnia F51.04 and Gastroesophageal reflux disease without esophagitis K21.9 [id number] [place] [address] 31199- 7955 Apr, Psychophysiological insomnia F51.04 [facility] [id number] [place] [address] 77293- 2359 14 Apr, 2018 [facility] [id number] [place] [address] 72342- 4112 Apr, [facility] [id number] [place] [address] 24971- 8096 Mar, [facility] [address] [place] [id number] Mar, Acute respiratory failure with hypoxia J96.01 ; Acute pancreatitis, unspecified complication status, unspecified pancreatitis type K85.90 ; Chronic kidney disease, stage IV (severe) N18.4 ; Rash R21 and Gastroesophageal reflux disease without esophagitis K21.9 [facility] [id number] [place] [address] 20887- 5430 Mar, Psychophysiological insomnia F51.04 [facility] [id number] [place] [address] 56203- 6015 Mar, [facility] [address] [place] [id number] Feb, Vertigo R42 and Chronic kidney disease, stage IV (severe) N18.4 [facility] [id number] [place] [address] 44856- 4422 24 Feb, 2018 [facility] [address] [place] [id number] Feb, Cellulitis of breast N61.0 [place] [id number] [place] [address] 69296- 6853 18 Feb, 2018 [place] [facility] [id number] [place] [address] 16690- 8169 Feb, [place] [id number] [place] [address] 83085- 9122 12 Feb, 2018 Psychophysiological insomnia F51.04 [facility] [address] [place] [id number] Feb, Urinary tract infection without hematuria, site unspecified N39.0 ; Chronic kidney disease, stage IV (severe) N18.4 and Chronic systolic heart failure I50.22 [facility] [id number] [place] [address] 69847- 6493 10 Feb, 2018 [facility] [address] [place] [id number] Feb, Chronic kidney disease, stage IV (severe) N18.4 ; Chronic systolic heart failure I50.22 ; COPD with acute lower respiratory infection J44.0 ; Vertigo R42 ; Slow transit constipation K59.01 ; Hemorrhoids, unspecified hemorrhoid type K64.9 ; Acquired hypothyroidism E03.9 ; Candidiasis of breast B37.89 and Difficulty in urination R39.198 [facility] [id number] [place] [address] 98191- 2075 Jan, Acute on chronic systolic CHF (congestive heart failure) I50.23 ; Acute kidney failure, unspecified N17.9 ; Chronic kidney disease, stage III (moderate) N18.3 and Supplemental oxygen dependent Z99.81 [place] [id number] [place] [address] 74001- 9351 03 Jan, 2018 Acute on chronic combined systolic and diastolic CHF ( congestive heart failure) I50.43 [facility] [id number] [place] [address] 61620- 3862 Jan, [facility] [id number] [place] [address] 46077 -8704 Jan, Irritant contact dermatitis due to cosmetics L24.3 ; Effusion of right wrist M25.431 and Pain in right wrist M25.531 [place] [facility] [id number] [place] [address] 99102- 5210 Dec, Chronic systolic heart failure I50.22 ; Chronic obstructive pulmonary disease with (acute) exacerbation J44.1 ; CKD (chronic kidney disease ) stage 4, GFR 15-29 ml/min N18.4 ; Cardiomyopathy I42.9 ; Dependence on supplemental oxygen Z99.81 and Psychophysiological insomnia F51.04 [facility] [id number] [place] [address] 21442- 8188 Dec, Anxiety F41.9 [place] [address], [place] [address] 6737 Dec, [facility] [id number] [place] [address] 09393- 9025 Dec, [place] [id number] [place] [address] 39085- 7571 Dec, [facility] [address] [place] [id number] Dec, Encounter for examination for admission to senior care Z02.2 ; Chronic obstructive pulmonary disease, unspecified J44.9 ; Paroxysmal atrial fibrillation I48.0 ; CKD (chronic kidney disease) stage 4, GFR 15-29 ml/min N18.4 and Cardiomyopathy I42.9 [place] [id number] [place] [address] 88070- 1161 Dec, [place] [id number] [place] [address] 28470- 0082 Nov, Acute on chronic combined systolic and diastolic CHF ( congestive heart failure) I50.43 [facility] [facility] [id number] [place] [address] 11129- 4947 Nov, [place] [id number] [place] [address] 65207- 9709 Nov, [place] [address] [address]- 8920 Nov, Chronic systolic heart failure I50.22 ; Paroxysmal atrial fibrillation I48.0 ; Chronic obstructive pulmonary disease with (acute) exacerbation J44.1 ; Chronic kidney disease, stage 4 (severe) N18.4 ; Pain in right hip M25.551 and Pain in left hip M25.552 [address] [id number] [place] [address] 94019- 2619 Nov, Chronic kidney disease, stage 4 (severe) N18.4 [place] [facility] [id number] [place] [address] 69509- 7372 Nov, [address] [address], [place] [address]- 6418 Nov, [facility] [id number] [place] [address] 65547- 2308 October, Chronic obstructive pulmonary disease with (acute) exacerbation J44.1 ; Chronic systolic heart failure I50.22 ; CKD (chronic kidney disease) stage 4, GFR 15-29 ml/min N18.4 and Dependence on supplemental oxygen Z99.81 [place] [id number] [address] 7651 October, [facility] [facility] [id number] [place] [address] 80579- 3744 October, [facility] [id number] [place] [address] 18275- 1592 Sep, Chronic kidney disease, stage 4 (severe) N18.4 and Chronic kidney disease, stage IV (severe) N18.4 [place] [facility] [id number] [place] [address] 76353- 7450 Sep, Chronic kidney disease, stage 4 (severe) N18.4 [address] [id number] [place] [address] 67353- 6563 Sep, Anxiety F41.9 ; Paroxysmal atrial fibrillation I48.0 ; Chronic kidney disease, stage 4 (severe) N18.4 ; Chronic systolic heart failure I50.22 and Anemia associated with chronic renal failure D63.1 [address] [address], [place] [address] 0554 Sep, [address] [id number] [place] [address] 67643- 2642 Aug, [place] [id number] [place] [address] 60009- 9461 Aug, [facility] [address] [place] [id number] Aug, Acute on chronic combined systolic and diastolic CHF (congestive heart failure) I50.43 ; Essential hypertension I10 ; CKD (chronic kidney disease) stage 4, GFR 15-29 ml/min N18.4 ; Paroxysmal atrial fibrillation I48.0 and Mild depression F32.0 [place] [id number] [place] [address] 88842- 4179 Aug, [facility] [id number] [place] [address] 52048- 8967 Aug, [place] [address] 69336- 4871 Aug, Acute on chronic respiratory failure with hypoxia J96.21 ; Acute kidney failure, unspecified N17.9 ; Chronic kidney disease, stage 4 ( severe) N18.4 ; Acute on chronic combined systolic and diastolic CHF ( congestive heart failure) I50.43 ; Paroxysmal atrial fibrillation I48.0 and Cardiomyopathy, unspecified type I42.9 [place] [id number] [place] [address] 66365- 3941 Aug, [place] [id number] [place] [address] 25044- 2392 Jul, [facility] [id number] [place] [address] 00658- 8579 Jul, [place] [id number] [place] [address] 33368- 2852 Jul, [facility] [id number] [place] [address] 17330- 7044 Jul, [facility] [id number] [place] [address] 30362- 2926 Jul, Community acquired pneumonia of right lower lobe of lung J18.1 ; CKD (chronic kidney disease) stage 4, GFR 15-29 ml/min N18.4 and Shortness of breath R06.02 [facility] [id number] [place] [address] [id number] Jul, 2017 [place] [id number] [place] [address] 71730- 2532 Jun, Anxiety F41.9 [place] [id number] [place] [address] 88481- 8066 Apr, Anxiety F41.9 [place] [address] 71924- 8372 10 Apr, 2017 Cough R05 and Pneumonia of right lower lobe due to infectious organism J18.1 [place] [address] 95215- 2959 07 Apr, 2017 [place] [address] 07883- 4340 Apr, Chronic kidney disease, stage IV (severe) N18.4 and COPD exacerbation J44.[address] 93438- 3033 Feb, Chronic systolic heart failure I50.22 ; Essential hypertension I10 ; Anemia associated with chronic renal failure D63.1 and Chronic kidney disease, stage 4 (severe) N18.4 [place] [address] 96790- 7755 Feb, Anxiety F41.9 [place] [address] 56895- 9241 Feb, [address] 13523- 9834 Feb, [place] [address] 42316- 0825 Jan, Other fatigue R53.83 ; Otalgia of both ears H92.03 and Urinary urgency R39.[address] 49419- 8659 Jan, Acute non-recurrent maxillary sinusitis J01.00 ; Chronic systolic heart failure I50.22 ; Stage 3 chronic kidney disease N18.3 and Mild depression F32.[address] 72058- 5986 14 Sep, 2014 [facility] [place] [facility] [address] [id number] [place] [address]- 4572 Sep, [facility] [place] [facility] [address] [id number] [place] [address]- 8457 Feb, [facility] [place] [facility] [address] [id number] [place] [address]- 4535 Feb, [facility] [place] [facility] [address] [id number] [place] [address]- 0319 Dec, [facility] [place] [facility] [address] [id number] [place] [address]- 8492 Dec, [facility] [place] [facility] [address] [id number] [place] [address]- 8981 Nov, [facility] [place] [facility] [address] [id number] [place] [address]- 1205 Nov, [facility] [place] [facility] [address] [id number] [place] [address]- 4285 Nov, [facility] [place] [facility] [address] [id number] [place] [address]- 5113 Nov, [facility] [place] [facility] [address] [id number] [place] [address]- 7499 October, [facility] [place] [facility] [address] [id number] [place] [address]- 8867 October, [facility] [place] [facility] [address] [id number] [place] [address]- 8282 Sep, [facility] [place] [facility] [address] [id number] [place] [address]- 7045 Sep, [facility] [place] [facility] [address] [id number] [place] [address]- 7409 Sep, [facility] [place] [facility] [address] [id number] [place] [address]- 8188 Sep, [facility] [place] [facility] [address] [id number] [place] [address]- 6412 Sep, [facility] [address] [id number] [place] [address]- 0257 Aug, [facility] [place] [facility] [address] [id number] [place] [address]- 8279 Aug, [facility] [place] [facility] [address] [id number] [place] [address]- 8179 Aug, [facility] [place] [facility] [address] [id number] [place] [address]- 3924 Aug, [facility] [place] [facility] [address] [id number] [place] [address]- 2166 Aug, [facility] [place] [facility] [address] [id number] [place] [address]- 0831 Aug, [facility] [place] [facility] [address] [id number] [place] [address]- 6707 Aug, [facility] [place] [facility] [address] [id number] [place] [address]- 4159 Aug, [facility] [place] [facility] [address] [id number] [place] [address]- 2691 Jul, [facility] [place] [facility] [address] [facility] [id number] [place] [address]- 1746 Jul, [facility] [place] [facility] [address] [id number] [place] [address]- 3795 Jul, [facility] [place] [facility] [address] [id number] [place] [address]- 3532 Jul, [facility] [place] [facility] [address] [id number] [place] [address]- 0816 Jul, [facility] [place] [facility] [address] [id number] [place] [address]- 9396 Jul, [facility] [place] [facility] [address] [id number] [place] [address]- 8889 Jun, [facility] [address] [id number] [place] [address]- 8607 14 Jun, 2013 [facility] [place] [facility] [address] [id number] [place] [address]- 3226 14 Jun, 2013 [facility] [place] [facility] [address] [facility] [id number] [place] [address]- 0115 Jun, [facility] [place] [facility] [address] [id number] [place] [address]- 0131 Jun, [facility] [place] [facility] [address] [id number] [place] [address]- 4102 May, [facility] [place] [facility] [address] [id number] [place] [address]- 7822 May, [facility] [place] [facility] [address] [id number] [place] [address]- 3414 May, [facility] [place] [facility] [address] [id number], [place] [address]- 3732 May, [facility] [place] [facility] [address] [id number], [place] [address]- 7445 May, [facility] [place] [facility] [address] [id number], [place] [address]- 5750 Apr, [facility] [place] [facility] [address] [id number], [place] [address]- 7177 Apr, [facility] [place] [facility] [address] [id number], [place] [address]- 7738 Mar, [facility] [place] [facility] [address] [id number], [place] [address]- 4405 Mar, [facility] [place] [facility] [address] [id number], [place] [address]- 3767 Mar, [facility] [place] [facility] [address] [id number], [place] [address]- 0535 Mar, [facility] [place] [facility] [address] [id number] [place] [address]- 1998 16 Feb, 2013 [facility] [address] [id number] [place] [address]- 6574 Jan, [facility] [place] [facility] [address] [id number] [place] 0075 Jan, [facility] [address] [id number] [place] [address]- 0682 Aug, [facility] [place] [facility] [address] [id number] [place] [address]- 8013 Jul, [facility] [id number] [place] [address], [place] [address]- 4755 Jun, [facility] [place] [facility] [address] [id number] [place] [address]- 1638 May, [facility] [address] [id number] [place] [address]- 9961 May, [facility] [address] [id number] [place] [address]- 6423 May, [facility] [place] [facility] [address] [facility] [id number] [place] [address]- 1312 May, [facility] [address] [facility] [id number] [place] [address]- 7614 Apr, [facility] [place] [facility] [address] [id number] [place] [address]- 3259 Apr, [facility] [place] [facility] [address] [id number] [place] [address]- 6165 Mar, [facility] [place] [facility] [address] [id number] [place] [address]- 3119 Mar, [facility] [place] [facility] [address] [facility] [id number] [place] [address] Mar, [facility] [place] [facility] [address] [id number] [place] [address] Mar, [facility] [address] [id number] [address] Mar, [facility] [id number] [address] Mar, [facility] [address] [id number] [address] Dec, [facility] [id number] [address] Dec, [facility] [id number] [address] Nov, [facility] [id number] [address] Nov, [facility] [id number] [address] October, [facility] [id number] [address] October, [facility] [id number] [address] Sep, [facility] [id number] [address] Aug, [facility] [id number] [address] Aug, [facility] [address] [id number] [address] Aug, IMMUNIZATIONS No Known Immunizations SOCIAL HISTORY Never Assessed REASON FOR VISIT EMR[place] [place] CARE VITAL SIGNS MEDICATIONS Unknown [...] Dismissed 07/11/17 07/10/2017 Hospitalization History [facility] pneumonia, hypoxia-[facility] 07/30/17 Hospitalization History [facility]- [facility] PNA, Respiratory Failure. Transfered to [place] 10/25/2017 Hospitalization History CHF/COPD 11/2017 Hospitalization History Flu 06/2018
[2018-10-25 02:36] LABS: BASOPHILS % (AUTO) 0 % (0-10); EOSINOPHILS # (AUTO) 0.1 10^3/uL (0.0-0.3); EOSINOPHILS % (AUTO) 1 % (0-10); HEMATOCRIT 31 % (35-52); HEMOGLOBIN 9.7 G/DL (11.5-16.0); LYMPHOCYTES # (AUTO) 0.7 X 10^3 (1.0-4.0); LYMPHOCYTES % (AUTO) 8 % (12-44); MEAN CORPUSCULAR HEMOGLOBIN 30 PG (25-34); MEAN CORPUSCULAR HGB CONC 31 G/DL (32-36); MEAN CORPUSCULAR VOLUME 97 FL (80-99); MEAN PLATELET VOLUME 12.2 FL (7.4-10.4); MONOCYTES # (AUTO) 1.4 X 10^3 (0.0-1.0); MONOCYTES % (AUTO) 15 % (0-12); NEUTROPHILS # (AUTO) 6.8 X 10^3 (1.8-7.8); NEUTROPHILS % (AUTO) 76 % (42-75); PLATELET COUNT 144 10^3/uL (130-400); RED CELL DISTRIBUTION WIDTH 17.6 % (10.0-14.5); WHITE BLOOD COUNT 8.9 10^3/uL (4.3-11.0)
[2018-10-25 02:40] LABS: INR 1.3 (0.8-1.4); PROTHROMBIN TIME PATIENT 16.7 SEC (12.2-14.7)
[2018-10-25 02:48] LABS: CREATININE SERUM 2.4 MG/DL (0.60-1.30); POTASSIUM 3.9 MMOL/L (3.6-5.0)
[2018-10-25 02:49] LABS: ALBUMIN 3.6 GM/DL (3.2-4.5); CALCIUM 9.3 MG/DL (8.5-10.1); MAGNESIUM 1.6 MG/DL (1.8-2.4)
[2018-10-25] MEDS ORDERED: HEParin DRIP 25000 UNIT/500ML 500 ML IV ONE (04:12)
[2018-10-25] MEDS ORDERED: HEParin 1000 UNIT/ML (10ML VIAL) FOR BOLUS IV ONE (04:15)
[2018-10-25 05:48] VITALS: BP 104/63
--- NOTE | 2018-10-25 07:40 | Diagnostic Imaging Report ---
INDICATION: CHF, fluid overload, chest pain, and cough. FINDINGS: The heart is enlarged. There is prominence of the vascularity. There is mild perihilar edema. There is a suggestion of a small left pleural effusion. There is no pneumothorax. Right IJ at the SVC. IMPRESSION: Cardiomegaly, vascular congestion, and probable perihilar edema with small left effusion suggests failure or hypervolemia. Dictated by: Dictated on workstation # [id number]
--- NOTE | 2018-10-31 04:40 | ED Chest Pain ---
General Chief Complaint: Chest Pain Stated Complaint: RENAL FAILURE Nursing Triage Note: TO ED VIA [facility] FROM [facility] WITH C/O CHEST PAIN. WAS GIVEN 2 NITRO WITH NO RELIEF TO CHEST PAIN. GIVEN 4 BABY ASA ENROUTE VIA EMS. Nursing Sepsis Screen: No Definite Risk Source: patient, long-term records History of Present Illness Date Seen by Provider: Oct 25, 2018 Time Seen by Provider: 01:50 Initial Comments PT ARRIVES VIA EMS FROM [facility] C/O CHEST PAIN X 1 HOUR PAIN BEGAN WHILE TRYING TO GO TO SLEEP STATES PAIN WAS A "10", NOW RATES PAIN "JUST A LITTLE BIT--A 7" PAIN RADIATES TO LEFT BREAST PT HAD NTG SL X 2 AT 0109, EMS PLACED 1"NITROPASTE, AND EMS GAVE 324 MG ASPIRIN NO INCREASE IN CHRONIC SHORTNESS OF BREATH NO NAUSEA NO SWEATS NO PALPITATIONS NO DIZZINESS NO FEVER NO INCREASE IN CHRONIC COUGH PT HAS HAD A MULTITUDE OF VISITS PT HAS CHRONIC CHEST PAIN COMPLAINTS PT HAS HAD 7 VISITS IN 2019, AND 5 SINCE 09/14/18 LAST VISIT 10/13/18 FOR SHORTNESS OF BREATH, WHICH IS ALSO A CHRONIC COMPLAINT PT ALSO HAS COPD PT ALSO HAS ESRD ON DIALYSIS -FRI, SHE IS UNABLE TO GO ALL WEEKEND WITHOUT NEEDING DIALYSIS BEFORE FRIDAY--FREQUENT FLUID OVERLOAD/CHF PT WEARS HOME O2 AT 4L/NC PCPC: DR. VERNON RADIATION MONITOR: [facility] PAL MULE DRIVER: DR. DANGELO Allergies and Home Medications Allergies Coded Allergies: propoxyphene napsylate (Unverified Allergy, Severe, SEVERE NAUSEA AND VOMITING , 04/03/13) meperidine (Unverified Allergy, Unknown, 12/19/14) venom-honey bee (Verified Allergy, Unknown, 09/19/13) lisinopril (Verified Adverse Reaction, Unknown, PT STATES "BOTTOMS OUT" HER BLOOD PRESSURE, 03/12/15) Patient states that it "bottoms out" her blood pressure. She will refuse to take this medication and reports it as an allergy. Home Medications Acetaminophen 500 Mg Tablet, 1,000 MG PO Q6H PRN for PAIN-MILD, (Reported) Albuterol Sulfate 1 Puff Puff, 2 PUFF IH Q6H PRN for SHORTNESS OF BREATH, ( Reported) Amiodarone HCl 200 Mg Tablet, 200 MG PO DAILY, (Reported) Bisacodyl 5 Mg Tablet.dr, 5 MG PO DAILY PRN for CONSTIPATION-4TH LINE, (Reported ) Carvedilol 6.25 Mg Tablet, 6.25 MG PO BID, (Reported) Cephalexin 500 Mg Capsule, 500 MG PO BID, (Reported) 2 DAY SUPPLY START DATE 09-03-18 EVENING DOSE AND END DATE 09-05-18 AM DOSE Docusate Sodium 100 Mg Tablet, 100 MG PO DAILY PRN for CONSTIPATION-1ST LINE, ( Reported) Ipratropium/Albuterol Sulfate 3 Ml Ampul.neb, 3 ML IH Q4H PRN for SHORTNESS OF BREATH, (Reported) Isosorbide Dinitrate 30 Mg Tablet, 15 MG PO BID, (Reported) TAKES 1/2 (30MG) TABLET Levothyroxine Sodium 25 Mcg Tablet, 25 MCG PO DAILY, (Reported) Loperamide HCl 2 Mg Capsule, 2 MG PO Q6H PRN for DIARRHEA, (Reported) Lorazepam 0.5 Mg Tablet, 0.5 MG PO HS, (Reported) Mag Hydrox/Al Hydrox/Simeth 30 Ml Oral.susp, 30 ML PO Q4H PRN for INDIGESTION, ( Reported) Midodrine HCl 10 Mg Tablet, 10 MG PO DAILY, (Reported) Multivitamins-Min/FA/Ginkgo 1 Each Tablet, 1 TAB PO DAILY, (Reported) Ondansetron HCl 4 Mg Tablet, 4 MG PO Q6H PRN for NAUSEA/VOMITING-1ST LINE, ( Reported) Oxycodone HCl 5 Mg Tablet, 5 MG PO Q6H PRN for PAIN-SEVERE, (Reported) Polyethylene Glycol 3350 17 Gm Powd.pack, 17 GM PO Q8H PRN for CONSTIPATION-2ND LINE, (Reported) Sertraline HCl 100 Mg Tablet, 100 MG PO HS, (Reported) Patient Home Medication List Home Medication List Reviewed: Yes Review of Systems Review of Systems Constitutional: no symptoms reported; No diaphoresis, No fever Respiratory: See HPI, Cough, Shortness of Air Cardiovascular: See HPI, Chest Pain; Denies Edema, Denies Lightheadedness, Denies Palpitations, Denies Syncope Gastrointestinal: No Symptoms Reported; Denies Abdominal Pain Genitourinary: See HPI Musculoskeletal: no symptoms reported Skin: no symptoms reported Psychiatric/Neurological: No Symptoms Reported Endocrine: No Symptoms Reported Past Aimgibk-Hyeulr-Opcvxc Hx Patient Social History Alcohol Use: Occasionally Uses Number of Drinks Today: AA Alcohol Beverage of Choice: Beer Recreational Drug Use: Yes (THC USE IN PAST) Drug of Choice: THC USE IN PAST Smoking Status: Former Smoker (> 1 PPD) Type Used: Cigarettes Former Smoker, Quit: Jul 09, 2017 2nd Hand Smoke Exposure: No Recent Foreign Travel: No Contact w/Someone Who Travel: No Recent Infectious Disease Expo: No Recent Hopitalizations: No Immunizations Up To Date Tetanus Booster (TDap): Unknown PED Vaccines UTD: No Date of Pneumonia Vaccine: Mar 30, 2013 Date of Influenza Vaccine: Mar 30, 2018 Seasonal Allergies Seasonal Allergies: Yes Past Medical History Surgeries: Yes (CARDIAC CATHS--NO INTERVENTION; LAST ONE 08/2018; RIGHT CENTRAL DIALYSIS LINE; RIGHT AV FISTULA/GRAFT-FAILED. LEFT AV FISTULA/GRAFT PLACED 08/2018. ) Cardiac, Section, Defibrillator, Dialysis, Hysterectomy, Vascular Surgery Respiratory: Yes (CHRONIC RESPIRATORY FAILURE/HYPOXIA-O2 DEPENDENT AT 4L/NC; CHF/FLUID OVERLOAD/PULMONARY EDEMA) Asthma, Pneumonia, Sleep Apnea, COPD Currently Using CPAP: No Currently Using BIPAP: Yes Cardiac: Yes (CHF/PULMONARY EDEMA/FLUID OVERLOAD; EF--20%--NON-ISCHEMIC CARDIOMYOPATHY; HX OF LEFT HEART THROMBUS) Atrial Fibrillation, Cardiomyopathy, Chronic Edema/Swelling, Coronary Artery Disease, High Cholesterol, Hypertension Neurological: Yes Headaches /Migraines 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 Disorders: Yes (Hysterectomy) 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 Disorders: Denies 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 ) Renal Failure, Dialysis, UTI-Chronic Gastrointestinal: Yes (HX OF ELEVATED LFT'S) Gastroesophageal Reflux, Liver Disease/Jaundice, Hiatal Hernia Musculoskeletal: Yes Arthritis Endocrine: Yes Hypothyroidsim HEENT: Yes Cataract Loss of Vision: Denies Hearing Impairment: Denies Cancer: No Bladder Psychosocial: Yes Sleep Difficulties, Anxiety, Depression Integumentary: Yes (CHRONIC SORES FROM CONSTANT "PICKING" ) Recent Skin Changes Blood Disorders: Yes (ANEMIA) Adverse Reaction/Blood Tranf: No Family Medical History Cancer 19 FATHER (HODGKINS ) 19 MOTHER (BRAIN TUMOR ) Congenital heart disease 19 MOTHER Congestive heart failure 19 MOTHER Family history: Cardiovascular disease 19 MOTHER G8 SISTER G8 SISTER Family history: Hypertension 19 MOTHER G8 SISTER G8 SISTER Heart disease 19 MOTHER G8 SISTER G8 SISTER History of - respiratory disease 19 MOTHER G8 BROTHER G8 SISTER Heart Disease, Cancer, Hypertension Physical Exam Vital Signs Vital Signs - First Documented 10/25/18 01:52 Temp 97.3 Pulse 97 Resp 18 B/P (MAP) 105/74 (84) Pulse Ox 100 O2 Delivery Nasal Cannula O2 Flow Rate 4.00 FiO2 100 Capillary Refill : Less Than 3 Seconds Height, Weight, BMI Height: 4'9.00" Weight: 122lbs. 0.1oz. 55.972725lx; 29.7 BMI Method:Stated General Appearance: No Apparent Distress, WD/WN, Other (TALKS IN FULL SENTENCES , PT APPEARS DROWSY) HEENT: PERRL/EOMI, Other (MILD BILATERAL EXOPHTHALMOS AND PERIORBITAL EDEMA) Neck: Normal Inspection, Non Tender, Supple Respiratory: No Accessory Muscle Use, No Respiratory Distress, Rales (IN BASES) Cardiovascular: Regular Rate, Rhythm, No Edema, No Murmur, Other (RIGHT CENTRAL DIALYSIS LINE; DEFIBRILLATOR LEFT CHEST) Gastrointestinal: Non Tender, Soft Extremity: Pedal Edema (3+ EDEMA ON RIGHT , 2+ EDEMA ON LEFT--IS NORMAL FOR PT) Skin: Normal Color, Warm/Dry Procedures/Interventions Date of ETT Placement: Aug 20, 2017 Time of ETT Placement: 628 Progress/Results/Core Measures Results/Orders Lab Results Laboratory Tests Test 10/25/18 02:20 Range/Units White Blood Count 8.9 4.3-11.0 10^3/uL Red Blood Count 3.20 L 4.35-5.85 10^6/uL Hemoglobin 9.7 L 11.5-16.0 G/DL Hematocrit 31 L 35-52 % Mean Corpuscular Volume 97 80-99 FL Mean Corpuscular Hemoglobin 30 25-34 PG Mean Corpuscular Hemoglobin Concent 31 L 32-36 G/DL Red Cell Distribution Width 17.6 H 10.0-14.5 % Platelet Count 144 130-400 10^3/uL Mean Platelet Volume 12.2 H 7.4-10.4 FL Neutrophils (%) (Auto) 76 H 42-75 % Lymphocytes (%) (Auto) 8 L 12-44 % Monocytes (%) (Auto) 15 H 0-12 % Eosinophils (%) (Auto) 1 0-10 % Basophils (%) (Auto) 0 0-10 % Neutrophils # (Auto) 6.8 1.8-7.8 X 10^3 Lymphocytes # (Auto) 0.7 L 1.0-4.0 X 10^3 Monocytes # (Auto) 1.4 H 0.0-1.0 X 10^3 Eosinophils # (Auto) 0.1 0.0-0.3 10^3/uL Basophils # (Auto) 0.0 0.0-0.1 10^3/uL Prothrombin Time 16.7 H 12.2-14.7 SEC INR Comment 1.3 0.8-1.4 Activated Partial Thromboplast Time 45 H 24-35 SEC Sodium Level 128 L 135-145 MMOL/L Potassium Level 3.9 3.6-5.0 MMOL/L Chloride Level 88 L 98-107 MMOL/L Carbon Dioxide Level 24 21-32 MMOL/L Anion Gap 16 H 5-14 MMOL/L Blood Urea Nitrogen 15 7-18 MG/DL Creatinine 2.40 H 0.60-1.30 MG/DL Estimat Glomerular Filtration Rate 21 BUN/Creatinine Ratio 6 Glucose Level 106 H 70-105 MG/DL Calcium Level 9.3 8.5-10.1 MG/DL Corrected Calcium 9.6 8.5-10.1 MG/DL Magnesium Level 1.6 L 1.8-2.4 MG/DL Total Bilirubin 2.0 H 0.1-1.0 MG/DL Aspartate Amino Transf (AST/SGOT) 33 5-34 U/L Alanine Aminotransferase (ALT/SGPT) 43 0-55 U/L Alkaline Phosphatase 193 H 40-136 U/L Myoglobin 100.0 H 10.0-92.0 NG/ML Troponin I 0.037 H <0.028 NG/ML Total Protein 7.0 6.4-8.2 GM/DL Albumin 3.6 3.2-4.5 GM/DL My Orders Orders - YANE WAKEFIELD DO Cbc With Automated Diff (10/25/18 01:57) Magnesium (10/25/18 01:57) Chest 1 View, Ap/Pa Only (10/25/18 01:57) Ekg Tracing (10/25/18 01:57) Cardiac Profile 1 (10/25/18 01:57) Comprehensive Metabolic Panel (10/25/18 01:57) Myoglobin Serum (10/25/18 01:57) Protime With Inr (10/25/18 01:57) Partial Thromboplastin Time (10/25/18 01:57) O2 (10/25/18 01:57) Monitor-Rhythm Ecg Trace Only (10/25/18 01:57) Ed Iv/Invasive Line Start (10/25/18 01:57) Heparin Drip [id number] Unit/500ml (Heparin (10/25/18 04:12) Heparin (Bolus Per Protocol) (Heparin (B (10/25/18 04:15) Iv Infusion <= First Hr Ed (10/25/18 ) Vital Signs/I&O 10/25/18 10/25/18 10/25/18 10/25/18 01:52 01:52 02:11 05:48 Temp 97.3 97.3 Pulse 97 93 Resp 18 18 B/P (MAP) 105/74 (84) 104/63 (77) Pulse Ox 100 100 O2 Delivery Nasal Cannula Nasal Cannula Nasal Cannula Nasal Cannula O2 Flow Rate 4.00 4.00 4.0 4.0 FiO2 100 Blood Pressure Mean: 77 Progress Progress Note : Progress Note SLEEPING SOUNDLY THROUGHOUT ER STAY, WAKES EASILY TO VOICE, THEN GOES RIGHT BACK TO SLEEP NO DETERIORATION IN PT'S CONDITION DURING ER STAY Initial ECG Impression Date: Oct 25, 2018 Initial ECG Impression Time: 01:51 Initial ECG Rate: 96 Initial ECG Rhythm: Normal Sinus Initial ECG Impression: Nonspecific Changes Initial ECG Comparisson: Unchanged Diagnostic Imaging Comments CXR--CHF/FLUID OVERLOAD, PENDING RADIOLOGIST REVIEW Reviewed: Reviewed by Me Departure Communication (Admissions) 1295--CALLED [facility], LEFT MESSAGE [id number]--[facility] CALLED BACK, DR. MIRANDA, RADIATION MONITOR ADVISES TO ADMIT TO HOSPITALIST. HE ADVISES TO START PT ON HEPARIN DRIP [id number]--SPOKE WITH DR. FAITH, HOSPITALIST, ACCEPTS PT FOR ADMIT/TRANSFER Impression Primary Impression: Chest pain Additional Impressions: ESRD on dialysis COPD (chronic obstructive pulmonary disease) Chronic systolic (congestive) heart failure Elevated troponin Electrolyte imbalance Disposition: XFER SHT-TRM HOSP Condition: Stable Transfer Transfer Facility: [facility] Method of Transfer: EMS Departure-Patient Inst. Referrals: TEAGAN VERNON MD (PCP) Primary Care Physician YANE WAKEFIELD DO October 31, 2018 04:40
== END 2018-10-25 05:50 | disposition short-term general hospital (02) ==
LOC: EDUNIT# 01:52 → ER 01:54
DX: R07.9 Chest pain, unspecified (principal); I13.2 Hypertensive heart and chronic kidney disease with heart failure and with stage 5 chronic kidney disease, or end stage renal disease; I50.22 Chronic systolic (congestive) heart failure; N18.6 End stage renal disease; J44.9 Chronic obstructive pulmonary disease, unspecified; G43.909 Migraine, unspecified, not intractable, without status migrainosus; R79.89 Other specified abnormal findings of blood chemistry; E87.8 Other disorders of electrolyte and fluid balance, not elsewhere classified; G47.30 Sleep apnea, unspecified; E78.00 Pure hypercholesterolemia, unspecified; K21.9 Gastro-esophageal reflux disease without esophagitis; I42.9 Cardiomyopathy, unspecified; E03.9 Hypothyroidism, unspecified; I48.91 Unspecified atrial fibrillation; I25.10 Atherosclerotic heart disease of native coronary artery without angina pectoris; F41.9 Anxiety disorder, unspecified; F32.9 Major depressive disorder, single episode, unspecified; D64.9 Anemia, unspecified; Z82.49 Family history of ischemic heart disease and other diseases of the circulatory system; Z80.7 Family history of other malignant neoplasms of lymphoid, hematopoietic and related tissues; Z87.440 Personal history of urinary (tract) infections; Z87.19 Personal history of other diseases of the digestive system; Z95.9 Presence of cardiac and vascular implant and graft, unspecified; Z95.810 Presence of automatic (implantable) cardiac defibrillator; Z90.710 Acquired absence of both cervix and uterus; Z99.81 Dependence on supplemental oxygen; Z87.01 Personal history of pneumonia (recurrent); Z99.2 Dependence on renal dialysis; Z85.51 Personal history of malignant neoplasm of bladder; Z98.890 Other specified postprocedural states
CPT/HCPCS: 36415; 71045; 80053; 83735; 83874; 84484; 85025; 85610; 85730; 93005; 93041; 96365

== ENCOUNTER 2018-11-18 08:13 | Emergency (ER) | payer MEDICARE ==
[~2018-11-18] VITALS: Ht 144.8 cm; Wt 54.4 kg
--- OUTSIDE RECORDS SUMMARY | 2018-11-18 08:18 | XMS REPORT ---
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 Name Role Phone LEE SILVA Unavailable PROBLEMS Type Condition ICD9-CM Code IEL17-VR Code Onset Dates Condition Status SNOMED Code Problem Essential hypertension I10 Active 07667649 Problem Mild depression F32.0 Active 183681439 Problem Chronic systolic heart failure I50.22 Active 286728981 Problem Anxiety F41.9 Active 07945986 Problem Anemia associated with chronic renal failure D63.1 Active 203072451 Problem Chronic obstructive pulmonary disease with (acute) exacerbation J44.1 Active 214698654 Problem Paroxysmal atrial fibrillation I48.0 Active 866495072 Problem Cardiomyopathy I42.9 Active 39462613 Problem Supplemental oxygen dependent Z99.81 Active 579101414348 Problem Acute on chronic systolic CHF (congestive heart failure) I50.23 Active 340613354 Problem Gastroesophageal reflux disease without esophagitis K21.9 Active 704065064 Problem Chronic obstructive pulmonary disease, unspecified J44.9 Active 51787699 Problem Chronic pain syndrome G89.4 Active 632088418 Problem Psychophysiological insomnia F51.04 Active 132561208 Problem Acquired hypothyroidism E03.9 Active 327225992 Problem Slow transit constipation K59.01 Active 42832788 Problem COPD with acute lower respiratory infection J44.0 Active 184598612 Problem Chronic kidney disease, stage IV (severe) N18.4 Active 927306149 ALLERGIES Substance Reaction Event Type Date Status Demerol Unknown Drug Allergy Jul, Active Darvocet-N 100 Unknown Drug Allergy Jul, Active Bee Venom Unknown Non Drug Allergy Jul, Active Propoxyphene HCl Unknown Drug Allergy Jul, Active Meperidine HCl Unknown Drug Allergy Jul, Active Lisinopril Unknown Drug Allergy Jul, Active ENCOUNTERS Encounter Location Date Diagnosis [place] [id number] [place] [address] October, Chronic kidney disease, stage IV (severe) N18.4 ; Chronic systolic heart failure I50.22 ; Chronic obstructive pulmonary disease, unspecified J44.9 and Chronic pain syndrome G89.4 [place] [id number] [place] [address] October, [place] [address] [address] October, Psychophysiological insomnia F51.04 [place] [id number] [place] [address] Sep, Psychophysiological insomnia F51.04 [place] [id number] [place] [address] Sep, Psychophysiological insomnia F51.04 [place] [address] [address] Sep, [facility] [address] [place] [id number] Sep, Pneumonia of both lungs due to infectious organism, unspecified part of lung J18.9 [place] [id number] [place] [address] Aug, [place] [id number] [place] [address] Aug, Psychophysiological insomnia F51.04 [facility] [address] [place] [id number] Jul, Cellulitis of left lower extremity L03.116 [place] [id number] [place] [address] Jul, [place] [address] [address] 13 Jul, 2018 Viral upper respiratory infection J06.9 and Nausea R11.0 [place] [id number] [place] [address] Jul, 2018 Psychophysiological insomnia F51.04 [facility] [address] [address] 05 Jul, 2018 Psychophysiological insomnia F51.04 [facility] [address] [address] Jul, [facility] [id number] [place] [address] Jul, [facility] [id number] [place] [address] Jul, Psychophysiological insomnia F51.04 [facility] [id number] [place] [address] Jun, [facility] [id number] [place] [address] Jun, [facility] [id number] [place] [address] Jun, [facility] [id number] [place] [address] Jun, [facility] [id number] [place] [address] Jun, [facility] [id number] [address] Jun, [facility] [id number] [place] [address] Jun, [facility] [address] [address] Jun, Psychophysiological insomnia F51.04 ; Chronic obstructive pulmonary disease with (acute) exacerbation J44.1 ; Chronic systolic heart failure I50.22 ; Supplemental oxygen dependent Z99.81 ; Chronic kidney disease, stage IV (severe) N18.4 ; Nausea R11.0 ; Debility R53.81 and Diarrhea, unspecified type R19.7 [facility] [address] [address] May, [place] [id number] [place] [address] May, [facility] [id number] [place] [address] May, [place] [id number] [place] [address] May, [place] [id number] [place] [address] May, [place] [id number] [place] [address] Apr, [facility] [address] [place] [id number] Apr, Mild depression F32.0 ; Essential hypertension I10 ; Chronic systolic heart failure I50.22 ; Chronic obstructive pulmonary disease with (acute) exacerbation J44.1 ; Paroxysmal atrial fibrillation I48.0 ; Chronic kidney disease, stage IV (severe) N18.4 ; Acquired hypothyroidism E03.9 ; Clotted dialysis access, sequela T82.49XS ; Psychophysiological insomnia F51.04 and Gastroesophageal reflux disease without esophagitis K21.9 [place] [address] [address] Apr, Psychophysiological insomnia F51.04 [place] [address] [address] 14 Apr, 2018 [place] [id number] [place] [address] Apr, [place] [id number] [place] [address] Mar, [facility] [address] [place] [id number] Mar, Acute respiratory failure with hypoxia J96.01 ; Acute pancreatitis, unspecified complication status, unspecified pancreatitis type K85.90 ; Chronic kidney disease, stage IV (severe) N18.4 ; Rash R21 and Gastroesophageal reflux disease without esophagitis K21.9 [place] [id number] [place] [address] Mar, Psychophysiological insomnia F51.04 [place] [id number] [place] [address] 03 Mar, 2018 [facility] [address] [place] [id number] Feb, Vertigo R42 and Chronic kidney disease, stage IV (severe) N18.4 [place] [id number] [place] [address] 24 Feb, 2018 [facility] [address] [place] [id number] Feb, Cellulitis of breast N61.0 [place] [id number] [place] [address] 18 Feb, 2018 [place] [id number] [place] [address] Feb, [place] [id number] [place] [address] 12 Feb, 2018 Psychophysiological insomnia F51.04 [facility] [address] [place] [id number] 11 Feb, 2018 Urinary tract infection without hematuria, site unspecified N39.0 ; Chronic kidney disease, stage IV (severe) N18.4 and Chronic systolic heart failure I50.22 [place] [id number] [place] [address] 10 Feb, 2018 [facility] [address] [place] [id number] 04 Feb, 2018 Chronic kidney disease, stage IV (severe) N18.4 ; Chronic systolic heart failure I50.22 ; COPD with acute lower respiratory infection J44.0 ; Vertigo R42 ; Slow transit constipation K59.01 ; Hemorrhoids, unspecified hemorrhoid type K64.9 ; Acquired hypothyroidism E03.9 ; Candidiasis of breast B37.89 and Difficulty in urination R39.198 [place] [id number] [place] [address] Jan, Acute on chronic systolic CHF (congestive heart failure) I50.23 ; Acute kidney failure, unspecified N17.9 ; Chronic kidney disease, stage III (moderate) N18.3 and Supplemental oxygen dependent Z99.81 [place] [id number] [place] [address] Jan, Acute on chronic combined systolic and diastolic CHF (congestive heart failure) I50.43 [place] [id number] [place] [address] Jan, [facility] [address] [address] Jan, Irritant contact dermatitis due to cosmetics L24.3 ; Effusion of right wrist M25.431 and Pain in right wrist M25.531 [place] [id number] [place] [address] Dec, Chronic systolic heart failure I50.22 ; Chronic obstructive pulmonary disease with (acute) exacerbation J44.1 ; CKD (chronic kidney disease) stage 4, GFR 15-29 ml/min N18.4 ; Cardiomyopathy I42.9 ; Dependence on supplemental oxygen Z99.81 and Psychophysiological insomnia F51.04 [place] [id number] [place] [address] Dec, Anxiety F41.9 [place] [id number] [place] [address] Dec, [place] [id number] [place] [address] Dec, [address] [address] Dec, [facility] [address] [place] [id number] Dec, Encounter for examination for admission to alf Z02.2 ; Chronic obstructive pulmonary disease, unspecified J44.9 ; Paroxysmal atrial fibrillation I48.0 ; CKD (chronic kidney disease) stage 4, GFR 15-29 ml/min N18.4 and Cardiomyopathy I42.9 [facility] [id number] [place] [address] Dec, [facility] [id number] [place] [address] Nov, Acute on chronic combined systolic and diastolic CHF (congestive heart failure) I50.43 [facility] [id number] [place] [address] 27 Nov, 2017 [facility] [id number] [place] [address] Nov, [facility] [id number] [place] [address] Nov, Chronic systolic heart failure I50.22 ; Paroxysmal atrial fibrillation I48.0 ; Chronic obstructive pulmonary disease with (acute) exacerbation J44.1 ; Chronic kidney disease, stage 4 (severe) N18.4 ; Pain in right hip M25.551 and Pain in left hip M25.552 [facility] [id number] [place] [address] Nov, Chronic kidney disease, stage 4 (severe) N18.4 [facility] [address] [address] Nov, [facility] [id number] [place] [address] Nov, [facility] [id number] [place] [address] October, Chronic obstructive pulmonary disease with (acute) exacerbation J44.1 ; Chronic systolic heart failure I50.22 ; CKD (chronic kidney disease) stage 4, GFR 15-29 ml/min N18.4 and Dependence on supplemental oxygen Z99.81 [facility] [id number] [place] [address] October, [place] [address] [address] October, [facility] [id number] [place] [address] Sep, Chronic kidney disease, stage 4 (severe) N18.4 and Chronic kidney disease, stage IV (severe) N18.4 [place] [id number] [place] [address] Sep, Chronic kidney disease, stage 4 (severe) N18.4 [place] [id number] [place] [address] Sep, Anxiety F41.9 ; Paroxysmal atrial fibrillation I48.0 ; Chronic kidney disease, stage 4 (severe) N18.4 ; Chronic systolic heart failure I50.22 and Anemia associated with chronic renal failure D63.1 [place] [id number] [place] [address] Sep, [place] [id number] [place] [address] Aug, [place] [id number] [place] [address] Aug, [facility] [address] [place] [id number] Aug, Acute on chronic combined systolic and diastolic CHF (congestive heart failure) I50.43 ; Essential hypertension I10 ; CKD (chronic kidney disease) stage 4, GFR 15-29 ml/min N18.4 ; Paroxysmal atrial fibrillation I48.0 and Mild depression F32.0 [place] [id number] [place] [address] Aug, [place] [id number] [place] [address] Aug, [place] [id number] [place] [address] 14 Aug, 2017 Acute on chronic respiratory failure with hypoxia J96.21 ; Acute kidney failure, unspecified N17.9 ; Chronic kidney disease, stage 4 (severe) N18.4 ; Acute on chronic combined systolic and diastolic CHF (congestive heart failure) I50.43 ; Paroxysmal atrial fibrillation I48.0 and Cardiomyopathy, unspecified type I42.9 [facility] [id number] [place] [address] Aug, [facility] [id number] [place] [address] 14 Jul, 2017 [facility] [address] [address] Jul, [facility] [address] [address] Jul, [facility] [id number] [place] [address] Jul, [facility] [address] [address] Jul, Community acquired pneumonia of right lower lobe of lung J18.1 ; CKD (chronic kidney disease) stage 4, GFR 15-29 ml/min N18.4 and Shortness of breath R06.02 [facility] [id number] [place] [id number] 05 Jul, 2017 [facility] [id number] [place] [address] Jun, Anxiety F41.9 [facility] [id number] [place] [address] Apr, Anxiety F41.9 [facility] [id number] [place] [address] 10 Apr, 2017 Cough R05 and Pneumonia of right lower lobe due to infectious organism J18.1 [facility] [id number] [place] [address] 07 Apr, 2017 [facility] [address] [address] Apr, Chronic kidney disease, stage IV (severe) N18.4 and COPD exacerbation J44.1 [place] [id number] [place] [address] Feb, Chronic systolic heart failure I50.22 ; Essential hypertension I10 ; Anemia associated with chronic renal failure D63.1 and Chronic kidney disease, stage 4 (severe) N18.4 [place] [id number] [place] [address] Feb, Anxiety F41.9 [place] [id number] [place] [address] Feb, [place] [id number] [place] [address] Feb, [place] [id number] [place] [address] Jan, Other fatigue R53.83 ; Otalgia of both ears H92.03 and Urinary urgency R39.15 [place] [id number] [place] [address] Jan, Acute non-recurrent maxillary sinusitis J01.00 ; Chronic systolic heart failure I50.22 ; Stage 3 chronic kidney disease N18.3 and Mild depression F32.0 [place] [id number] [place] [address] Sep, [place] [id number] [place] [address] Sep, [place] [id number] [place] [address] Feb, [place] [id number] [place] [address] Feb, [place] [id number] [place] [address] Dec, [place] [address] [facility] [address] Dec, [facility] [place] [facility] [address] [id number] [place] [address] Nov, [facility] [place] [facility] [address] [id number] [place] [address] Nov, [facility] [place] [facility] [address] [id number] [place] [address] Nov, [facility] [place] [facility] [address] [id number] [place] [address] Nov, [facility] [place] [facility] [address] [id number] [place] [address] October, [facility] [place] [facility] [address] [id number] [place] [address] October, [facility] [place] [facility] [address] [id number] [place] [address] Sep, [facility] [place] [facility] [address] [id number] [place] [address] Sep, [facility] [place] [facility] [address] [id number] [place] [address] Sep, [facility] [place] [facility] [address] [id number] [place] [address] Sep, [facility] [place] [facility] [address] [id number] [place] [address] Sep, [facility] [place] [facility] [address] [id number] [place] [address] Aug, [facility] [place] [facility] [address] [id number] [place] [address] Aug, [facility] [place] [facility] [address] [id number] [place] [address] Aug, [facility] [place] [facility] [address] [id number] [place] [address] Aug, [facility] [place] [facility] [address] [id number] [place] [address] Aug, [facility] [place] [facility] [address] [id number] [place] [address] Aug, [facility] [place] [facility] [address] [id number] [place] [address] Aug, [facility] [place] [facility] [address] [id number] [place] [address] Aug, [facility] [place] [facility] [address] [id number] [place] [address] Jul, [facility] [place] [facility] [address] [id number] [place] [address] Jul, [facility] [place] [facility] [address] [id number] [place] [address] Jul, [facility] [place] [facility] [address] [id number] [place] [address] Jul, [facility] [place] [facility] [address] [id number] [place] [address] Jul, [facility] [place] [facility] [address] [id number] [place] [address] Jul, [facility] [place] [facility] [address] [id number] [place] [address] Jun, [facility] [place] [facility] [address] [id number] [place] [address] Jun, [facility] [place] [facility] [address] [id number] [place] [address] Jun, [facility] [place] [facility] [address] [id number] [place] [address] Jun, [facility] [place] [facility] [address] [id number] [place] [address] Jun, [facility] [place] [facility] [address] [id number] [place] [address] May, [facility] [address] [id number] [place] [address] May, [facility] [place] [facility] [address] [id number] [place] [address] May, [facility] [address] [id number] [place] [address] May, [facility] [place] [facility] [address] [id number] [place] [address] May, [facility] [address] [id number] [place] [address] Apr, [facility] [place] [facility] [address] [id number] [place] [address] Apr, [facility] [address] [id number] [place] [address] Mar, [facility] [place] [facility] [address] [id number] [place] [address] Mar, [facility] [place] [facility] [address] [id number] [place] [address] Mar, [facility] [place] [facility] [address] [facility] [id number] [place] [address] Mar, [facility] [place] [facility] [address] [id number] [place] [address] Feb, [facility] [place] [facility] [address] [id number] [place] [address] Jan, [facility] [place] [facility] [address] [id number] [place] [address] Jan, [facility] [place] [facility] [address] [id number] [place] [address] Aug, [facility] [place] [facility] [address] [id number] [address] Jul, [facility] [place] [facility] [address] [id number] [place] [address] Jun, [facility] [place] [facility] [address] [id number] [place] [address] May, [facility] [place] [facility] [address] [id number] [place] [address] May, [facility] [place] [facility] [id number] [place] [address], [place] [address] May, [facility] [place] [facility] [address] [id number] [place] [address] May, [facility] [place] [facility] [address] [id number] [place] [address] Apr, [facility] [place] [facility] [address] [id number] [place] [address] Apr, [facility] [place] [facility] [address] [id number] [place] [address] Mar, [facility] [place] [facility] [address] [id number] [place] [address] Mar, [facility] [place] [facility] [address] [id number] [place] [address] Mar, [facility] [place] [facility] [address] [id number] [place] [address] Mar, [facility] [place] [facility] [address] [id number] [place] [address] Mar, [facility] [place] [facility] [address] [id number] [place] [address] Mar, [facility] [place] [facility] [address] [id number] [place] [address] Dec, [facility] [place] [facility] [address] [id number] [place] [address] Dec, [facility] [place] [facility] [address] [id number] [address] Nov, [facility] [address] [facility] [id number] [address] Nov, [facility] [address] [id number] [address] October, [facility] [id number] [address] October, [facility] [id number] [address] Sep, [facility] [id number] [address] Aug, [facility] [id number] [address] Aug, [facility] [address] [id number] [address] Aug, IMMUNIZATIONS No Known Immunizations SOCIAL HISTORY Never Assessed REASON FOR VISIT possible cellulits --YARELIS Telles PLAN OF CARE Activity Details Follow Up prn Reason: VITAL SIGNS MEDICATIONS Medication Instructions Dosage Frequency Start Date End Date Duration Status Fluticasone Propionate 50 MCG/ACT Nasally twice a day 1 spray in each nostril 12h Feb, 30 day(s) Active Nystatin 188250 UNIT/GM Externally under both breasts Twice a day till healed 1 application to affected area Feb, Active Sertraline HCl 100 mg Orally Once a day 1.5 tablet 24h 30 days Active GlycoLax - as directed Active Amiodarone HCl 200 mg Orally Once a day 1 tablet 24h 30 day(s) Active Magnesium Oxide 400 mg Orally Once a day 1 tablet 24h 30 days Active Mylanta 200-200-20 MG/5ML Orally Four times a day 10 ml as needed 6h Active Multivitamin Adults - Orally Once a day 1 tablet 24h 30 days Active Imodium A-D 2 MG Orally 2 times a day 1 tablet as needed 12h Jun, 7 days Active Furosemide 20 mg Orally Once a day 4 tablets 24h 30 day(s) Active GuaiFENesin ER 600 MG Orally every 12 hrs 1 tablet as needed 12h Active Lorazepam 0.5 MG Orally Once a day at bedtime prn 1 tablet Aug, 30 days Active Preparation H 1-0.25-14.4-15 % Rectal Four times a day 1 application to affected area as needed 6h Active Melatonin 3 MG Orally Once a day 1 tablet at bedtime as needed with food 24h 30 day(s) Active BD SafetyGlide Syringe/Needle 27G X 5/8 subcutaneously 2 times a day as directed to use with heparin 12h May, Active Synthroid 25 MCG Orally Once a day 1 tablet on an empty stomach in the morning 24h 30 day(s) Active Mometasone Furoate 100 MCG/ACT Inhalation Twice a day 2 puffs 12h Active Ipratropium-Albuterol 0.5-2.5 (3) MG/3ML Inhalation every 4 hrs 3 ml as needed 4h 30 days Active Acetaminophen 500 MG Orally every 6 hrs 1 tablet as needed 6h Active Benzonatate 100 mg Orally Three times a day 1 capsule as needed 8h 13 Jul, 2018 5 days Active Protonix 40 mg Orally Once a day 1 tablet 24h 30 day(s) Active Cephalexin 500 mg Orally 3 times a day 1 capsule 8h 21 Jul, 2018 7 days Active Zofran 8 MG Orally Twice a day 1 tablet 12h Jun, 30 day(s) Active Docusate Sodium 100 MG Orally Once a day 1 capsule as needed 24h 30 day(s) Active Carvedilol 3.125 MG Orally 2 times a day 1 tablet 12h 30 days Active Midodrine HCl 10 mg Orally Three times a day 1 tablet 8h 30 day(s) Active Oxycodone HCl 5 mg Orally Once a day prn 1 tablet 11 Jul, 2018 30 days Active ProAir HFA 108 (90 Base) MCG/ACT Inhalation every 6 hrs 2 puffs as needed 6h Active RESULTS No Results PROCEDURES Procedure Date Ordered Result Body Site Minor complication (15 mins) Aug 20, 2018 INSTRUCTIONS MEDICATIONS ADMINISTERED No Known Medications MEDICAL (GENERAL) HISTORY Type Description Date Medical History hyperlipidemia Medical History htn Medical History kidney failure stage 4 - dx in 2012 Medical History hypothyroidisim Medical History neuropathy Medical History COPD - See's Dr Burnette in [facility] Medical History Chronic Heart Failure Surgical History 2 cesareans Surgical History defibrillator - 2012 Hospitalization History pneumonia for a week 2017 Hospitalization History Hospitalized at [facility]- CHF, Chest pain. Dismissed 07/11/17 07/10/2017 Hospitalization History [facility] pneumonia, hypoxia-[facility] 07/30/17 Hospitalization History [facility]- [facility] PNA, Respiratory Failure. Transfered to [place] 10/25/2017 Hospitalization History CHF/COPD 11/2017 Hospitalization History Flu 06/2018
--- OUTSIDE RECORDS SUMMARY | 2018-11-18 08:19 | XMS REPORT ---
Author Author Migration, Doctor Organization [facility] Address Unknown Phone Unavailable Care Team Providers Care Transmission Engineer Name Role Phone Migration, Doctor Unavailable Unavailable PROBLEMS Type Condition ICD9-CM Code XRG63-AV Code Onset Dates Condition Status SNOMED Code Problem Chronic systolic heart failure I50.22 Active 918549543 Problem Essential hypertension I10 Active 64113024 Problem Anemia associated with chronic renal failure D63.1 Active 218628803 Problem Mild depression F32.0 Active 445128289 Problem Paroxysmal atrial fibrillation I48.0 Active 712858985 Problem Anxiety F41.9 Active 51758908 Problem Cardiomyopathy I42.9 Active 31901747 Problem Chronic obstructive pulmonary disease, unspecified J44.9 Active 51675533 Problem Acute on chronic systolic CHF (congestive heart failure) I50.23 Active 849079273 Problem Chronic kidney disease, stage IV (severe) N18.4 Active 458397535 Problem Psychophysiological insomnia F51.04 Active 799837486 Problem Gastroesophageal reflux disease without esophagitis K21.9 Active 084644115 Problem Chronic obstructive pulmonary disease with (acute) exacerbation J44.1 Active 960178184 Problem Supplemental oxygen dependent Z99.81 Active 521997218346 Problem Acquired hypothyroidism E03.9 Active 157912687 Problem Slow transit constipation K59.01 Active 83869213 Problem COPD with acute lower respiratory infection J44.0 Active 618052543 ALLERGIES No Information ENCOUNTERS Encounter Location Date Diagnosis [facility] [address] [address] October, [facility] [id number] [place] [address] Sep, Psychophysiological insomnia F51.04 [facility] [address] [place] [address] Sep, Psychophysiological insomnia F51.04 [facility] [id number] [place] [address] Sep, [facility] [address] [place] [id number] Sep, Pneumonia of both lungs due to infectious organism, unspecified part of lung J18.9 [facility] [id number] [place] [address] Aug, [facility] [id number] [place] [address] Aug, Psychophysiological insomnia F51.04 [facility] [address] [place] [id number] Jul, Cellulitis of left lower extremity L03.116 [facility] [address] [address] Jul, [facility] [id number] [place] [address] 13 Jul, 2018 Viral upper respiratory infection J06.9 and Nausea R11.0 [facility] [id number] [place] [address] 06 Jul, 2018 Psychophysiological insomnia F51.04 [facility] [id number] [place] [address] 05 Jul, 2018 Psychophysiological insomnia F51.04 [facility] [id number] [place] [address] Jul, [facility] [id number] [place] [address] Jul, [facility] [id number] [place] [address] Jul, Psychophysiological insomnia F51.04 [facility] [id number] [place] [address] Jun, [facility] [id number] [place] [address] Jun, [facility] [address] [place] [address] Jun, [facility] [address] [address] Jun, [facility] [address] [address] Jun, [facility] [address] [place] [address] Jun, [facility] [address] [place] [address] Jun, [facility] [address] [place] [address] Jun, Psychophysiological insomnia F51.04 ; Chronic obstructive pulmonary disease with (acute) exacerbation J44.1 ; Chronic systolic heart failure I50.22 ; Supplemental oxygen dependent Z99.81 ; Chronic kidney disease, stage IV (severe) N18.4 ; Nausea R11.0 ; Debility R53.81 and Diarrhea, unspecified type R19.7 [facility] [address] [address] May, [facility] [id number] [place] [address] May, [facility] [address] [place] [address] May, [facility] [address] [place] [address] May, [facility] [address] [address] May, [facility] [id number] [place] [address] Apr, [facility] [address] [place] [id number] Apr, Mild depression F32.0 ; Essential hypertension I10 ; Chronic systolic heart failure I50.22 ; Chronic obstructive pulmonary disease with (acute) exacerbation J44.1 ; Paroxysmal atrial fibrillation I48.0 ; Chronic kidney disease, stage IV (severe) N18.4 ; Acquired hypothyroidism E03.9 ; Clotted dialysis access, sequela T82.49XS ; Psychophysiological insomnia F51.04 and Gastroesophageal reflux disease without esophagitis K21.9 [facility] [id number] [place] [address] 19 Apr, 2018 Psychophysiological insomnia F51.04 [facility] [address] [address] 14 Apr, 2018 [facility] [facility] [address] [address] Apr, [facility] [address] [address] Mar, [facility] [address] [place] [id number] Mar, Acute respiratory failure with hypoxia J96.01 ; Acute pancreatitis, unspecified complication status, unspecified pancreatitis type K85.90 ; Chronic kidney disease, stage IV (severe) N18.4 ; Rash R21 and Gastroesophageal reflux disease without esophagitis K21.9 [facility] [address] [address] Mar, Psychophysiological insomnia F51.04 [facility] [id number] [place] [address] Mar, [facility] [address] [place] [id number] Feb, Vertigo R42 and Chronic kidney disease, stage IV (severe) N18.4 [facility] [id number] [place] [address] Feb, [facility] [address] [place] [id number] Feb, Cellulitis of breast N61.0 [facility] [id number] [place] [address] Feb, [facility] [address] [address] 16 Feb, 2018 [facility] [id number] [place] [address] 12 Feb, 2018 Psychophysiological insomnia F51.04 [facility] [address] [place] [id number] 11 Feb, 2018 Urinary tract infection without hematuria, site unspecified N39.0 ; Chronic kidney disease, stage IV (severe) N18.4 and Chronic systolic heart failure I50.22 [facility] [id number] [place] [address] 10 Feb, 2018 [facility] [address] [place] [id number] Feb, Chronic kidney disease, stage IV (severe) N18.4 ; Chronic systolic heart failure I50.22 ; COPD with acute lower respiratory infection J44.0 ; Vertigo R42 ; Slow transit constipation K59.01 ; Hemorrhoids, unspecified hemorrhoid type K64.9 ; Acquired hypothyroidism E03.9 ; Candidiasis of breast B37.89 and Difficulty in urination R39.198 [facility] [id number] [place] [address] Jan, Acute on chronic systolic CHF (congestive heart failure) I50.23 ; Acute kidney failure, unspecified N17.9 ; Chronic kidney disease, stage III (moderate) N18.3 and Supplemental oxygen dependent Z99.81 [facility] [id number] [place] [address] Jan, Acute on chronic combined systolic and diastolic CHF (congestive heart failure) I50.43 [facility] [id number] [place] [address] Jan, [facility] [id number] [place] [address] Jan, Irritant contact dermatitis due to cosmetics L24.3 ; Effusion of right wrist M25.431 and Pain in right wrist M25.531 [facility] [id number] [place] [address] Dec, Chronic systolic heart failure I50.22 ; Chronic obstructive pulmonary disease with (acute) exacerbation J44.1 ; CKD (chronic kidney disease) stage 4, GFR 15-29 ml/min N18.4 ; Cardiomyopathy I42.9 ; Dependence on supplemental oxygen Z99.81 and Psychophysiological insomnia F51.04 [facility] [id number] [address] Dec, Anxiety F41.9 [facility] [id number] [place] [address] Dec, [facility] [id number] [place] [address] Dec, [facility] [id number] [place] [address] Dec, [facility] [address] [place] [id number] Dec, Encounter for examination for admission to long term Z02.2 ; Chronic obstructive pulmonary disease, unspecified J44.9 ; Paroxysmal atrial fibrillation I48.0 ; CKD (chronic kidney disease) stage 4, GFR 15-29 ml/min N18.4 and Cardiomyopathy I42.9 [facility] [id number] [place] [address] Dec, [facility] [id number] [place] [address] Nov, Acute on chronic combined systolic and diastolic CHF (congestive heart failure) I50.43 [facility] [address] [place] [address] Nov, [facility] [id number] [place] [address] Nov, [facility] [id number] [place] [address] Nov, Chronic systolic heart failure I50.22 ; Paroxysmal atrial fibrillation I48.0 ; Chronic obstructive pulmonary disease with (acute) exacerbation J44.1 ; Chronic kidney disease, stage 4 (severe) N18.4 ; Pain in right hip M25.551 and Pain in left hip M25.552 [facility] [id number] [place] [address] Nov, Chronic kidney disease, stage 4 (severe) N18.4 [facility] [id number] [place] [address] Nov, [facility] [facility] [id number] [place] [address] Nov, [facility] [facility] [id number] [place] [address] October, Chronic obstructive pulmonary disease with (acute) exacerbation J44.1 ; Chronic systolic heart failure I50.22 ; CKD (chronic kidney disease) stage 4, GFR 15-29 ml/min N18.4 and Dependence on supplemental oxygen Z99.81 [facility] [id number] [place] [address] October, [facility] [id number] [place] [address] October, [facility] [id number] [place] [address] Sep, Chronic kidney disease, stage 4 (severe) N18.4 and Chronic kidney disease, stage IV (severe) N18.4 [facility] [id number] [place] [address] Sep, Chronic kidney disease, stage 4 (severe) N18.4 [facility] [id number] [place] [address] Sep, Anxiety F41.9 ; Paroxysmal atrial fibrillation I48.0 ; Chronic kidney disease, stage 4 (severe) N18.4 ; Chronic systolic heart failure I50.22 and Anemia associated with chronic renal failure D63.1 [facility] [id number] [place] [address] Sep, [facility] [address] [address] Aug, [facility] [id number] [place] [address] Aug, [facility] [address] [place] [id number] Aug, Acute on chronic combined systolic and diastolic CHF (congestive heart failure) I50.43 ; Essential hypertension I10 ; CKD (chronic kidney disease) stage 4, GFR 15-29 ml/min N18.4 ; Paroxysmal atrial fibrillation I48.0 and Mild depression F32.0 [facility] [id number] [place] [address] Aug, [facility] [id number] [place] [address] Aug, [facility] [id number] [place] [address] Aug, Acute on chronic respiratory failure with hypoxia J96.21 ; Acute kidney failure, unspecified N17.9 ; Chronic kidney disease, stage 4 (severe) N18.4 ; Acute on chronic combined systolic and diastolic CHF (congestive heart failure) I50.43 ; Paroxysmal atrial fibrillation I48.0 and Cardiomyopathy, unspecified type I42.9 [facility] [address] [address] Aug, [facility] [id number] [place] [address] Jul, [facility] [address] [address] Jul, [facility] [id number] [place] [address] Jul, [facility] [address] [place] [address] Jul, [facility] [id number] [place] [address] Jul, Community acquired pneumonia of right lower lobe of lung J18.1 ; CKD (chronic kidney disease) stage 4, GFR 15-29 ml/min N18.4 and Shortness of breath R06.02 [facility] [id number] [place] [id number] Jul, 2017 [facility] [id number] [place] [address] Jun, Anxiety F41.9 [facility] [facility] [address] [address] Apr, Anxiety F41.9 [facility] [facility] [address] [address] Apr, Cough R05 and Pneumonia of right lower lobe due to infectious organism J18.1 [address] [id number] [place] [address] Apr, [facility] [id number] [place] [address] Apr, Chronic kidney disease, stage IV (severe) N18.4 and COPD exacerbation J44.1 [address] [id number] [place] [address] Feb, Chronic systolic heart failure I50.22 ; Essential hypertension I10 ; Anemia associated with chronic renal failure D63.1 and Chronic kidney disease, stage 4 (severe) N18.4 [facility] [id number] [place] [address] Feb, Anxiety F41.9 [facility] [id number] [place] [address] Feb, [facility] [id number] [place] [address] Feb, [facility] [id number] [place] [address] Jan, Other fatigue R53.83 ; Otalgia of both ears H92.03 and Urinary urgency R39.15 [facility] [address] [address] Jan, Acute non-recurrent maxillary sinusitis J01.00 ; Chronic systolic heart failure I50.22 ; Stage 3 chronic kidney disease N18.3 and Mild depression F32.0 [facility] [id number] [place] [address] Sep, [facility] [id number] [place] [address] Sep, [facility] [id number] [place] [address] Feb, [facility] [id number] [place] [address] Feb, [facility] [id number] [place] [address] Dec, [facility] [address] [place] [address] Dec, [facility] [id number] [place] [address] Nov, [facility] [id number] [address] Nov, [facility] [address] [place] [address] Nov, [facility] [address] [address] Nov, [facility] [id number] [place] [address] October, [facility] [address] [address] October, [facility] [id number] [place] [address] Sep, [facility] [place] [facility] [address] [id number] [place] [address] 08 Sep, 2013 [facility] [place] [facility] [address] [id number] [place] [address] Sep, [facility] [place] [facility] [address] [id number] [place] [address] Sep, [facility] [place] [facility] [address] [id number] [place] [address] Sep, [facility] [place] [facility] [address] [id number] [place] [address] Aug, [facility] [place] [facility] [address] [id number] [place] [address] Aug, [facility] [place] [facility] [address] [id number] [place] [address] Aug, [facility] [place] [facility] [address] [id number] [place] [address] Aug, [facility] [place] [facility] [address] [id number] [place] [address] Aug, [facility] [place] [facility] [address] [id number] [place] [address] Aug, [facility] [place] [facility] [address] [id number] [place] [address] Aug, [facility] [place] [facility] [address] [id number] [place] [address] Aug, [facility] [place] [facility] [address] [id number] [place] [address] Jul, [facility] [place] [facility] [address] [id number] [place] [address] Jul, [facility] [place] [facility] [address] [id number] [place] [address] Jul, [facility] [place] [facility] [address] [id number] [place] [address] 05 Jul, 2013 [facility] [address] [id number] [place] [address] Jul, [facility] [address] [id number] [place] [address] 03 Jul, 2013 [facility] [address] [id number] [place] [address] 31 Jun, 2013 [facility] [address] [id number] [place] [address] 14 Jun, 2013 [facility] [address] [id number] [place] [address] 14 Jun, 2013 [facility] [address] [id number] [place] [address] Jun, [facility] [address] [id number] [place] [address] Jun, [facility] [address] [id number] [place] [address] May, [facility] [address] [id number] [place] [address] May, [facility] [address] [facility] [id number] [place] [address] May, [facility] [place] [facility] [address] [id number] [place] [address] May, [facility] [address] [id number] [place] [address] May, [facility] [place] [facility] [address] [id number] [place] [address] Apr, [facility] [place] [facility] [address] [id number] [place] [address] Apr, [facility] [address] [id number] [place] [address] Mar, [facility] [address] [id number] [place] [address] Mar, [facility] [place] [facility] [address] [id number] [place] [address] Mar, [facility] [place] [facility] [address] [id number] [place] [address] Mar, [facility] [place] [facility] [address] [id number] [place] [address] Feb, [facility] [place] [facility] [address] [id number] [place] [address] Jan, [facility] [place] [facility] [address] [id number] [place] [address] Jan, [facility] [place] [facility] [address] [facility] [id number] [place] [address] Aug, [facility] [place] [facility] [address] [id number] [place] [address] Jul, [facility] [place] [facility] [address] [id number] [place] [address] Jun, [facility] [place] [facility] [address] [facility] [id number] [address] May, [facility] [place] [facility] [address] [id number] [place] [address] May, [facility] [place] [facility] [address] [id number] [place] [address] May, [facility] [place] [facility] [address] [id number] [place] [address] May, [facility] [place] [facility] [address] [id number] [address] Apr, [facility] [place] [facility] [address] [facility] [id number] [place] [address] Apr, [facility] [place] [facility] [address] [id number] [place] [address] Mar, [facility] [address] [facility] [id number] [place] [address] Mar, [facility] [id number] [address] Mar, [facility] [address] [place] [address] Mar, [facility] [address] [facility] [id number] [place] [address] Mar, [facility] [id number] [place] [address] Mar, [facility] [id number] [place] [address] Dec, [facility] [id number] [address] Dec, [facility] [id number] [address] Nov, [facility] [id number] [address] Nov, [facility] [id number] [address] October, [facility] [id number] [address] October, [facility] [address] [id number] [address] Sep, [facility] [address] [id number] [address] Aug, [facility] [address] [id number] [address] Aug, [facility] [address] [id number] [address] Aug, IMMUNIZATIONS No Known Immunizations SOCIAL HISTORY Never Assessed [place] [place] VITAL SIGNS MEDICATIONS Unknown Medications RESULTS No Results PROCEDURES No Known procedures INSTRUCTIONS MEDICATIONS ADMINISTERED No Known Medications MEDICAL (GENERAL) HISTORY Type Description Date Medical History hyperlipidemia Medical History htn Medical History kidney failure stage 4 - dx in 2012 Medical History hypothyroidisim Medical History neuropathy Medical History COPD - See's Dr Burnette in [facility] Medical History Chronic Heart Failure Surgical History 2 cesareans Surgical History defibrillator - 2012 Hospitalization History pneumonia for a week 2016 Hospitalization History Hospitalized at [facility] CH[place], Chest pain. Dismissed 07/11/17 07/10/2017 Hospitalization History [facility] pneumonia, hypoxia-[facility] 07/30/17 Hospitalization History [facility] PNA, Respiratory Failure. Transfered to [facility] 10/25/2017 Hospitalization History CHF/COPD 11/2017 Hospitalization History Flu 06/2018
[2018-11-18] MEDS ORDERED: morphine INJ 10 MG/ML 1ML (SYR OR VIAL) IV STA (08:32)
--- NOTE | 2018-11-18 08:39 | ED Chest Pain ---
General Stated Complaint: N/V;CP Source: patient, EMS, alf records Exam Limitations: no limitations History of Present Illness Date Seen by Provider: November 18, 2018 Time Seen by Provider: 08:17 Initial Comments The patient presents to ER [facility] with chief complaint that she arrived at 7 and by 7:30 she had a sudden onset of chest pain in the middle of her chest that felt like a baseball struck her. The pain is about a 7 out of 10 presently. She had an unremarkable 12-lead by EMS. Blood sugar was normal. Vital signs were normal. She says she's not had a cough but she did have some elevated temperatures of 99 recently. She is not having any nausea shortness of breath or wheezing. She has a history of atrial fibrillation, coronary artery disease and high blood pressure as well as hypothyroidism hypercholesterolemia. Her chest pain is easily reproducible by palpation on her chest between her breasts. There is no radiation of pain. Allergies and Home Medications Allergies Coded Allergies: propoxyphene napsylate (Unverified Allergy, Severe, SEVERE NAUSEA AND VOMITING , 04/03/13) meperidine (Unverified Allergy, Unknown, 12/19/14) venom-honey bee (Verified Allergy, Unknown, 09/19/13) lisinopril (Verified Adverse Reaction, Unknown, PT STATES "BOTTOMS OUT" HER BLOOD PRESSURE, 03/12/15) Patient states that it "bottoms out" her blood pressure. She will refuse to take this medication and reports it as an allergy. Home Medications Acetaminophen 500 Mg Tablet, 1,000 MG PO Q6H PRN for PAIN-MILD, (Reported) Albuterol Sulfate 1 Puff Puff, 2 PUFF IH Q6H PRN for SHORTNESS OF BREATH, (Reported) Amiodarone HCl 200 Mg Tablet, 200 MG PO DAILY, (Reported) Bisacodyl 5 Mg Tablet.dr, 5 MG PO DAILY PRN for CONSTIPATION-4TH LINE, (Reported) Carvedilol 6.25 Mg Tablet, 6.25 MG PO BID, (Reported) Cephalexin 500 Mg Capsule, 500 MG PO BID, (Reported) 2 DAY SUPPLY START DATE 09-03-18 EVENING DOSE AND END DATE 09-05-18 AM DOSE Docusate Sodium 100 Mg Tablet, 100 MG PO DAILY PRN for CONSTIPATION-1ST LINE, (Reported) Ipratropium/Albuterol Sulfate 3 Ml Ampul.neb, 3 ML IH Q4H PRN for SHORTNESS OF BREATH, (Reported) Isosorbide Dinitrate 30 Mg Tablet, 15 MG PO BID, (Reported) TAKES 1/2 (30MG) TABLET Levothyroxine Sodium 25 Mcg Tablet, 25 MCG PO DAILY, (Reported) Loperamide HCl 2 Mg Capsule, 2 MG PO Q6H PRN for DIARRHEA, (Reported) Lorazepam 0.5 Mg Tablet, 0.5 MG PO HS, (Reported) Mag Hydrox/Al Hydrox/Simeth 30 Ml Oral.susp, 30 ML PO Q4H PRN for INDIGESTION, (Reported) Midodrine HCl 10 Mg Tablet, 10 MG PO DAILY, (Reported) Multivitamins-Min/FA/Ginkgo 1 Each Tablet, 1 TAB PO DAILY, (Reported) Ondansetron HCl 4 Mg Tablet, 4 MG PO Q6H PRN for NAUSEA/VOMITING-1ST LINE, (Reported) Oxycodone HCl 5 Mg Tablet, 5 MG PO Q6H PRN for PAIN-SEVERE, (Reported) Polyethylene Glycol 3350 17 Gm Powd.pack, 17 GM PO Q8H PRN for CONSTIPATION-2ND LINE, (Reported) Sertraline HCl 100 Mg Tablet, 100 MG PO HS, (Reported) Patient Home Medication List Home Medication List Reviewed: Yes Review of Systems Review of Systems Constitutional: No chills, No diaphoresis, No fever, No malaise EENTM: No Blurred Vision, No Double Vision Respiratory: Denies Cough, Denies Shortness of Air Cardiovascular: See HPI, Chest Pain; Denies Edema Gastrointestinal: Denies Abdomen Distended, Denies Abdominal Pain, Denies Constipated, Denies Diarrhea, Denies Nausea Genitourinary: Denies Burning, Denies Discharge Musculoskeletal: No back pain, No joint pain Skin: No pruritus, No rash Past Rokqxet-[id number]-[id number] Hx Patient Social History Alcohol Use: Occasionally Uses Alcohol Beverage of Choice: Beer Recreational Drug Use: No Drug of Choice: THC USE IN PAST Smoking Status: Former Smoker Type Used: Cigarettes Former Smoker, Quit: Jul 09, 2017 2nd Hand Smoke Exposure: No Recent Hopitalizations: No Immunizations Up To Date Tetanus Booster (TDap): Unknown PED Vaccines UTD: No Date of Pneumonia Vaccine: Mar 30, 2013 Date of Influenza Vaccine: Mar 30, 2018 Seasonal Allergies Seasonal Allergies: Yes Past Medical History Surgeries: Yes Cardiac, Section, Defibrillator, Dialysis, Hysterectomy, Vascular Surgery Respiratory: Yes Asthma, Pneumonia, Sleep Apnea, COPD Currently Using CPAP: No Currently Using BIPAP: Yes Cardiac: Yes Atrial Fibrillation, Cardiomyopathy, Chronic Edema/Swelling, Coronary Artery Disease, High Cholesterol, Hypertension Neurological: Yes Headaches /Migraines 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 Disorders: Yes (Hysterectomy) 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 Disorders: Denies 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 ) Renal Failure, Dialysis, UTI-Chronic Gastrointestinal: Yes (HX OF ELEVATED LFT'S) Gastroesophageal Reflux, Liver Disease/Jaundice, Hiatal Hernia Musculoskeletal: Yes Arthritis Endocrine: Yes Hypothyroidsim HEENT: Yes Cataract Loss of Vision: Denies Hearing Impairment: Denies Cancer: No Bladder Psychosocial: Yes Sleep Difficulties, Anxiety, Depression Integumentary: Yes (CHRONIC SORES FROM CONSTANT "PICKING" ) Recent Skin Changes Blood Disorders: Yes (ANEMIA) Adverse Reaction/Blood Tranf: No Family Medical History Cancer 19 FATHER (HODGKINS ) 19 MOTHER (BRAIN TUMOR ) Congenital heart disease 19 MOTHER Congestive heart failure 19 MOTHER Family history: Cardiovascular disease 19 MOTHER G8 SISTER G8 SISTER Family history: Hypertension 19 MOTHER G8 SISTER G8 SISTER Heart disease 19 MOTHER G8 SISTER G8 SISTER History of - respiratory disease 19 MOTHER G8 BROTHER G8 SISTER Heart Disease, Cancer, Hypertension Physical Exam Vital Signs Vital Signs - First Documented 11/18/18 08:15 Temp 98.0 Pulse 87 Resp 18 B/P (MAP) 110/63 (79) Pulse Ox 99 O2 Delivery Nasal Cannula O2 Flow Rate 2.00 Capillary Refill : Height, Weight, BMI Height: 4'9.00" Weight: 122lbs. 0.1oz. 55.801267ao; 29.7 BMI Method:Stated General Appearance: No Apparent Distress, Chronically ill HEENT: PERRL/EOMI, Normal ENT Inspection, Pharynx Normal, Moist Mucous Membranes Neck: Normal Inspection, Non Tender Respiratory: No Chest Non Tender; Lungs Clear, Normal Breath Sounds, No Accessory Muscle Use, No Respiratory Distress Cardiovascular: Regular Rate, Rhythm, No Edema, Normal Peripheral Pulses Gastrointestinal: Normal Bowel Sounds, Non Tender, Soft Extremity: Normal Capillary Refill, Pedal Edema (1+ bilateral lower ankle) Neurologic/Psychiatric: Alert, Oriented x3, No Motor/Sensory Deficits Skin: Normal Color, Warm/Dry Procedures/Interventions Date of ETT Placement: Aug 20, 2017 Time of ETT Placement: 628 Progress/Results/Core Measures Results/Orders Lab Results Laboratory Tests Test 11/18/18 08:34 11/18/18 10:28 Range/Units White Blood Count 7.0 4.3-11.0 10^3/uL Red Blood Count 2.96 L 4.35-5.85 10^6/uL Hemoglobin 9.0 L 11.5-16.0 G/DL Hematocrit 28 L 35-52 % Mean Corpuscular Volume 96 80-99 FL Mean Corpuscular Hemoglobin 30 25-34 PG Mean Corpuscular Hemoglobin Concent 32 32-36 G/DL Red Cell Distribution Width 19.9 H 10.0-14.5 % Platelet Count 217 130-400 10^3/uL Mean Platelet Volume 10.9 H 7.4-10.4 FL Neutrophils (%) (Auto) 76 H 42-75 % Lymphocytes (%) (Auto) 10 L 12-44 % Monocytes (%) (Auto) 14 H 0-12 % Eosinophils (%) (Auto) 0 0-10 % Basophils (%) (Auto) 1 0-10 % Neutrophils # (Auto) 5.3 1.8-7.8 X 10^3 Lymphocytes # (Auto) 0.7 L 1.0-4.0 X 10^3 Monocytes # (Auto) 1.0 0.0-1.0 X 10^3 Eosinophils # (Auto) 0.0 0.0-0.3 10^3/uL Basophils # (Auto) 0.1 0.0-0.1 10^3/uL Prothrombin Time 15.4 H 12.2-14.7 SEC INR Comment 1.2 0.8-1.4 Activated Partial Thromboplast Time 86 H 24-35 SEC Sodium Level 132 L 135-145 MMOL/L Potassium Level 3.8 3.6-5.0 MMOL/L Chloride Level 95 L 98-107 MMOL/L Carbon Dioxide Level 26 21-32 MMOL/L Anion Gap 11 5-14 MMOL/L Blood Urea Nitrogen 13 7-18 MG/DL Creatinine 1.94 H 0.60-1.30 MG/DL Estimat Glomerular Filtration Rate 27 BUN/Creatinine Ratio 7 Glucose Level 88 70-105 MG/DL Calcium Level 8.4 L 8.5-10.1 MG/DL Corrected Calcium 9.3 8.5-10.1 MG/DL Magnesium Level 1.7 L 1.8-2.4 MG/DL Total Bilirubin 0.8 0.1-1.0 MG/DL Aspartate Amino Transf (AST/SGOT) 21 5-34 U/L Alanine Aminotransferase (ALT/SGPT) 15 0-55 U/L Alkaline Phosphatase 123 40-136 U/L Myoglobin 109.3 H 10.0-92.0 NG/ML Troponin I < 0.028 < 0.028 <0.028 NG/ML Total Protein 5.9 L 6.4-8.2 GM/DL Albumin 2.9 L 3.2-4.5 GM/DL Lipase 59 8-78 U/L My Orders Orders - BEVERLY AQUINO Cbc With Automated Diff (11/18/18 08:32) Magnesium (11/18/18 08:32) Chest 1 View, Ap/Pa Only (11/18/18 08:32) Ekg Tracing (11/18/18 08:32) Cardiac Profile 1 (11/18/18 08:32) Comprehensive Metabolic Panel (11/18/18 08:32) Myoglobin Serum (11/18/18 08:32) Protime With Inr (11/18/18 08:32) Partial Thromboplastin Time (11/18/18 08:32) O2 (11/18/18 08:32) Monitor-Rhythm Ecg Trace Only (11/18/18 08:32) Lipid Panel (11/19/18 06:00) Ed Iv/Invasive Line Start (11/18/18 08:32) Lipase (11/18/18 08:32) Aspirin Chewable Tablet (Baby Aspirin Ch (11/18/18 08:45) Morphine Injection (Morphine Injection (11/18/18 08:32) Ekg Tracing (11/18/18 09:48) Troponin I (11/18/18 10:30) Fentanyl Injection (Sublimaze Injection (11/18/18 10:15) Medications Given in ED Current Medications Medications Dose Ordered Sig/Cade Route Start Time Stop Time Status Last Admin Dose Admin Aspirin 324 mg ONCE ONCE PO 11/18/18 08:45 11/18/18 08:46 DC 11/18/18 08:57 324 MG Vital Signs/I&O 11/18/18 11/18/18 08:15 08:15 Temp 98.0 Pulse 87 Resp 18 B/P (MAP) 110/63 (79) Pulse Ox 99 99 O2 Delivery Nasal Cannula Nasal Cannula O2 Flow Rate 2.00 Progress Progress Note #1: Time: 08:39 Progress Note She has a history of COPD and CHF. Her chest is exquisitely tender to light palpation. Cardiac catheterization showing mild coronary disease in [address] Khoury. July [address] Levy showing an left ventricular ejection fraction of 10-15%. AICD followed by Dr. Khoury History of apical thrombus, atrial fibrillation previously on oral anticoagulants but stopped secondary to GI bleeds. No significant Clinical evidence of CHF except for the mild edema in her lower extremities. ED ACS 2 points. Low risk by the EDACS Score. If the patient also has: (1) EKG without new ischemic changes and (2) negative initial and 2-hour troponins, then this patient is safe for discharge to early outpatient follow-up investigation (or proceed to earlier inpatient testing). If EKG with ischemic changes or positive troponin, they are not low risk and require normal risk stratification. Progress Note #2: Time: 12:16 Progress Note Her chest pain has resolved. She's been playing on her phone and intermittently sleeping. Delta troponin and EKG were negative. We are going to allow her to go home and hopefully catch up with dialysis today. Follow-up with her plastics scientist outpatient. Initial ECG Impression Date: November 18, 2018 Initial ECG Impression Time: 08:22 Initial ECG Rate: 87 Initial ECG Rhythm: Normal Sinus Initial ECG Intervals: QT (520) Initial ECG Impression: Normal, Nonspecific Changes Initial ECG Comparisson: Unchanged Comment Sinus rhythm with LVH. There is a mild one half to one box elevation of the ST segment in leads V1, V2 and V3 that is stable from previous EKGs. Diagnostic Imaging Diagonstic Imaging: Xray Plain Films/CT/US/NM/MRI: chest (1v) Reviewed: Reviewed by Me Departure Impression Primary Impression: Chest wall pain Disposition: HOME, SELF-CARE Condition: Improved Departure-Patient Inst. Decision time for Depature: 12:17 Referrals: TEAGAN VERNON MD (PCP/Family) Primary Care Physician Patient Instructions: Chest Pain (DC) Add. Discharge Instructions: Tylenol 1000 mg every 8 hours as necessary for chest wall pain, topical rubs such as icy hot or Biofreeze. Return to the ER for intractable pain, shortness of breath or other worrisome symptoms. Follow-up with dialysis today if possible. Follow-up with your plastics scientist by calling for an appointment this week or early next week in the clinic. BEVERLY AQUINO November 18, 2018 08:39
[2018-11-18] MEDS ORDERED: ASPIRIN 81 MG CHEW (CHILDREN'S ASA) PO ONE (08:45)
[2018-11-18 08:47] LABS: BASOPHILS # (AUTO) 0.1 10^3/uL (0.0-0.1); BASOPHILS % (AUTO) 1 % (0-10); EOSINOPHILS % (AUTO) 0 % (0-10); HEMATOCRIT 28 % (35-52); LYMPHOCYTES # (AUTO) 0.7 X 10^3 (1.0-4.0); LYMPHOCYTES % (AUTO) 10 % (12-44); MEAN CORPUSCULAR HEMOGLOBIN 30 PG (25-34); MEAN CORPUSCULAR HGB CONC 32 G/DL (32-36); MEAN CORPUSCULAR VOLUME 96 FL (80-99); MEAN PLATELET VOLUME 10.9 FL (7.4-10.4); MONOCYTES % (AUTO) 14 % (0-12); NEUTROPHILS # (AUTO) 5.3 X 10^3 (1.8-7.8); NEUTROPHILS % (AUTO) 76 % (42-75); PLATELET COUNT 217 10^3/uL (130-400); RED CELL DISTRIBUTION WIDTH 19.9 % (10.0-14.5)
[2018-11-18 09:02] LABS: INR 1.2 (0.8-1.4); PROTHROMBIN TIME PATIENT 15.4 SEC (12.2-14.7)
[2018-11-18 09:10] LABS: ALANINE AMINOTRANSFERASE 15 U/L (0-55); ALBUMIN 2.9 GM/DL (3.2-4.5); ALKALINE PHOSPHATASE 123 U/L (40-136); BILIRUBIN,TOTAL 0.8 MG/DL (0.1-1.0); BUN/CREATININE RATIO 7; CALCIUM 8.4 MG/DL (8.5-10.1); CARBON DIOXIDE 26 MMOL/L (21-32); CHLORIDE 95 MMOL/L (98-107); CREATININE SERUM 1.94 MG/DL (0.60-1.30); GFR ESTIMATED 27; GLUCOSE 88 MG/DL (70-105); LIPASE 59 U/L (8-78); MAGNESIUM 1.7 MG/DL (1.8-2.4); POTASSIUM 3.8 MMOL/L (3.6-5.0); SODIUM 132 MMOL/L (135-145); TOTAL PROTEIN 5.9 GM/DL (6.4-8.2)
--- NOTE | 2018-11-18 09:37 | Diagnostic Imaging Report ---
INDICATION: Nausea, vomiting, and chest pain. TECHNIQUE: Single view chest at 8:48 AM. CORRELATION STUDY: 10/25/2018. FINDINGS: The right IJ dialysis catheter tip is over the low SVC. The left-sided AICD is unchanged. Cardiac enlargement and vascular congestion persist. The congestive changes are likely relatively stable. Small pleural effusions. Superimposed atelectasis or infiltrate at the left lung base is not excluded. IMPRESSION: Cardiomegaly with presence of vascular congestion. The severity of edema is likely relatively stable. Small bilateral pleural effusions. Dictated by: Dictated on workstation # [id number]
[2018-11-18] MEDS ORDERED: fentaNYL INJECTION 100 MCG/2 ML AMP IVP ONE (10:15)
--- NOTE | 2018-11-18 10:28 | NUR ---
2ND TROPONIN DRAWN BY LAB.
--- NOTE | 2018-11-18 10:41 | NUR ---
TO ROOM PATIENT SLEEPING. MONITOR SR. Addendum: 11/18/18 at 1043 by PMCCLURE OPHELIA BOLAÑOS.
--- NOTE | 2018-11-18 12:18 | NUR ---
[facility] NOTIFIED OF PT BEING READY TO BE PICKED UP.
--- NOTE | 2018-11-18 12:23 | NUR ---
DIALYSIS STAFF WILL CALL [facility] AND SET UP A TIME TO FINISH HER DIALYSIS TOMORROW.
[2018-11-18 12:31] VITALS: BP 100/50
== END 2018-11-18 12:41 | disposition home or self-care (01) ==
LOC: EDUNIT# 08:13 → ER 08:14
DX: R07.89 Other chest pain (principal); I48.91 Unspecified atrial fibrillation; I25.10 Atherosclerotic heart disease of native coronary artery without angina pectoris; I12.0 Hypertensive chronic kidney disease with stage 5 chronic kidney disease or end stage renal disease; N18.6 End stage renal disease; E78.00 Pure hypercholesterolemia, unspecified; E03.9 Hypothyroidism, unspecified; J44.9 Chronic obstructive pulmonary disease, unspecified; G43.909 Migraine, unspecified, not intractable, without status migrainosus; F41.9 Anxiety disorder, unspecified; F32.9 Major depressive disorder, single episode, unspecified; Z87.01 Personal history of pneumonia (recurrent); Z88.5 Allergy status to narcotic agent; Z88.8 Allergy status to other drugs, medicaments and biological substances; Z91.030 Bee allergy status; Z99.2 Dependence on renal dialysis; Z95.810 Presence of automatic (implantable) cardiac defibrillator; Z90.710 Acquired absence of both cervix and uterus; Z87.19 Personal history of other diseases of the digestive system; Z80.7 Family history of other malignant neoplasms of lymphoid, hematopoietic and related tissues; Z82.49 Family history of ischemic heart disease and other diseases of the circulatory system
CPT/HCPCS: 36415; 71045; 80053; 83690; 83735; 83874; 84484; 85025; 85610; 85730; 93005; 93041

== ENCOUNTER 2019-01-04 01:53 | Emergency (ER) | payer MEDICARE ==
[~2019-01-04] VITALS: Ht 144.8 cm; Wt 54.4 kg
[2019-01-04] MEDS ORDERED: RT-ALBUTEROL/IPRATROPIUM 3 ML (DUONEB) VIAL INH ONE (02:00)
--- OUTSIDE RECORDS SUMMARY | 2019-01-04 02:00 | XMS REPORT ---
Author Author Migration, Doctor Organization [facility] Address Unknown Phone Unavailable Care Team Providers Care Spike Driver Name Role Phone Migration, Doctor Unavailable Unavailable PROBLEMS Type Condition ICD9-CM Code PMD24-KP Code Onset Dates Condition Status SNOMED Code Problem Essential hypertension I10 Active 92818410 Problem Mild depression F32.0 Active 041113316 Problem Chronic systolic heart failure I50.22 Active 773961997 Problem Anxiety F41.9 Active 95035003 Problem Anemia associated with chronic renal failure D63.1 Active 082469867 Problem Chronic obstructive pulmonary disease with (acute) exacerbation J44.1 Active 253634963 Problem Paroxysmal atrial fibrillation I48.0 Active 203464903 Problem Cardiomyopathy I42.9 Active 45392800 Problem Supplemental oxygen dependent Z99.81 Active 610782727741 Problem Acute on chronic systolic CHF (congestive heart failure) I50.23 Active 849975046 Problem Gastroesophageal reflux disease without esophagitis K21.9 Active 418406449 Problem Chronic obstructive pulmonary disease, unspecified J44.9 Active 34529350 Problem Chronic pain syndrome G89.4 Active 387805132 Problem Psychophysiological insomnia F51.04 Active 635415185 Problem Acquired hypothyroidism E03.9 Active 991229500 Problem Slow transit constipation K59.01 Active 78748467 Problem COPD with acute lower respiratory infection J44.0 Active 437412123 Problem Chronic kidney disease, stage IV (severe) N18.4 Active 241098535 ALLERGIES Substance Reaction Event Type Date Status Demerol Unknown Drug Allergy Sep, Active Bee Venom Unknown Non Drug Allergy Sep, Active ENCOUNTERS Encounter Location Date Diagnosis [facility] [id number] [address] Dec, [facility] [id number] [address] Nov, [facility] [id number] [address] Nov, [facility] [address] [address] Nov, [facility] [id number] [place] [address] Nov, Psychophysiological insomnia F51.04 [facility] [id number] [place] [address] Nov, Psychophysiological insomnia F51.04 [facility] [id number] [place] [address] Nov, Anxiety F41.9 [facility] [id number] [place] [address] October, Chronic kidney disease, stage IV (severe) N18.4 ; Chronic systolic heart failure I50.22 ; Chronic obstructive pulmonary disease, unspecified J44.9 and Chronic pain syndrome G89.4 [facility] [id number] [place] [address] October, [facility] [id number] [place] [address] October, Psychophysiological insomnia F51.04 [facility] [id number] [place] [address] Sep, Psychophysiological insomnia F51.04 [facility] [address] [place] [address] Sep, Psychophysiological insomnia F51.04 [facility] [id number] [place] [address] Sep, [facility] [address] [place] [id number] Sep, Pneumonia of both lungs due to infectious organism, unspecified part of lung J18.9 [facility] [address] [place] [address] Aug, [facility] [id number] [place] [address] Aug, Psychophysiological insomnia F51.04 [facility] [address] [place] [id number] Jul, Cellulitis of left lower extremity L03.116 [facility] [id number] [place] [address] 20 Jul, 2018 [facility] [id number] [place] [address] 13 Jul, 2018 Viral upper respiratory infection J06.9 and Nausea R11.0 [facility] [id number] [place] [address] 06 Jul, 2018 Psychophysiological insomnia F51.04 [facility] [id number] [place] [address] 05 Jul, 2018 Psychophysiological insomnia F51.04 [facility] [id number] [place] [address] 04 Jul, 2018 [facility] [id number] [place] [address] Jul, [facility] [id number] [place] [address] Jul, Psychophysiological insomnia F51.04 [facility] [id number] [place] [address] Jun, [facility] [id number] [place] [address] Jun, [facility] [id number] [place] [address] Jun, [facility] [id number] [place] [address] Jun, [facility] [id number] [place] [address] Jun, [facility] [id number] [place] [address] Jun, [facility] [id number] [place] [address] Jun, [facility] [id number] [place] [address] Jun, Psychophysiological insomnia F51.04 ; Chronic obstructive pulmonary disease with (acute) exacerbation J44.1 ; Chronic systolic heart failure I50.22 ; Supplemental oxygen dependent Z99.81 ; Chronic kidney disease, stage IV (severe) N18.4 ; Nausea R11.0 ; Debility R53.81 and Diarrhea, unspecified type R19.7 [facility] [id number] [place] [address] May, [facility] [id number] [place] [address] May, [facility] [address] [address] May, [facility] [id number] [place] [address] May, [facility] [id number] [place] [address] May, [facility] [id number] [place] [address] Apr, [facility] [address] [facility] [facility] [address] [place] [id number] Apr, Mild depression F32.0 ; Essential hypertension I10 ; Chronic systolic heart failure I50.22 ; Chronic obstructive pulmonary disease with (acute) exacerbation J44.1 ; Paroxysmal atrial fibrillation I48.0 ; Chronic kidney disease, stage IV (severe) N18.4 ; Acquired hypothyroidism E03.9 ; Clotted dialysis access, sequela T82.49XS ; Psychophysiological insomnia F51.04 and Gastroesophageal reflux disease without esophagitis K21.9 [facility] [address] [place] [address] Apr, Psychophysiological insomnia F51.04 [facility] [address] [address] 14 Apr, 2018 [facility] [id number] [place] [address] Apr, [facility] [id number] [place] [address] Mar, [facility] [address] [place] [id number] Mar, Acute respiratory failure with hypoxia J96.01 ; Acute pancreatitis, unspecified complication status, unspecified pancreatitis type K85.90 ; Chronic kidney disease, stage IV (severe) N18.4 ; Rash R21 and Gastroesophageal reflux disease without esophagitis K21.9 [facility] [id number] [place] [address] Mar, Psychophysiological insomnia F51.04 [facility] [id number] [place] [address] Mar, [facility] [address] [place] [id number] Feb, Vertigo R42 and Chronic kidney disease, stage IV (severe) N18.4 [facility] [address] [place] [address] 24 Feb, 2018 [facility] [address] [place] [id number] Feb, Cellulitis of breast N61.0 [facility] [id number] [place] [address] 18 Feb, 2018 [facility] [id number] [place] [address] 16 Feb, 2018 [facility] [id number] [place] [address] 12 Feb, 2018 Psychophysiological insomnia F51.04 [facility] [address] [place] [id number] Feb, Urinary tract infection without hematuria, site unspecified N39.0 ; Chronic kidney disease, stage IV (severe) N18.4 and Chronic systolic heart failure I50.22 [facility] [id number] [place] [address] 10 Feb, 2018 [facility] [address] [place] [id number] Feb, Chronic kidney disease, stage IV (severe) N18.4 ; Chronic systolic heart failure I50.22 ; COPD with acute lower respiratory infection J44.0 ; Vertigo R42 ; Slow transit constipation K59.01 ; Hemorrhoids, unspecified hemorrhoid type K64.9 ; Acquired hypothyroidism E03.9 ; Candidiasis of breast B37.89 and Difficulty in urination R39.198 [facility] [address] [address] Jan, Acute on chronic systolic CHF (congestive heart failure) I50.23 ; Acute kidney failure, unspecified N17.9 ; Chronic kidney disease, stage III (moderate) N18.3 and Supplemental oxygen dependent Z99.81 [facility] [id number] [place] [address] 03 Jan, 2018 Acute on chronic combined systolic and diastolic CHF (congestive heart failure) I50.43 [facility] [address] [address] Jan, [facility] [id number] [place] [address] Jan, Irritant contact dermatitis due to cosmetics L24.3 ; Effusion of right wrist M25.431 and Pain in right wrist M25.531 [facility] [address] [place] [address] Dec, Chronic systolic heart failure I50.22 ; Chronic obstructive pulmonary disease with (acute) exacerbation J44.1 ; CKD (chronic kidney disease) stage 4, GFR 15-29 ml/min N18.4 ; Cardiomyopathy I42.9 ; Dependence on supplemental oxygen Z99.81 and Psychophysiological insomnia F51.04 [address] [address] [address] Dec, Anxiety F41.9 [facility] [address] [address] Dec, [facility] [id number] [place] [address] Dec, [facility] [id number] [place] [address] Dec, [facility] [address] [place] [id number] Dec, Encounter for examination for admission to alf Z02.2 ; Chronic obstructive pulmonary disease, unspecified J44.9 ; Paroxysmal atrial fibrillation I48.0 ; CKD (chronic kidney disease) stage 4, GFR 15-29 ml/min N18.4 and Cardiomyopathy I42.9 [facility] [id number] [place] [address] Dec, [facility] [id number] [place] [address] Nov, Acute on chronic combined systolic and diastolic CHF (congestive heart failure) I50.43 [facility] [id number] [place] [address] Nov, [facility] [id number] [place] [address] Nov, [facility] [address] [address] Nov, Chronic systolic heart failure I50.22 ; Paroxysmal atrial fibrillation I48.0 ; Chronic obstructive pulmonary disease with (acute) exacerbation J44.1 ; Chronic kidney disease, stage 4 (severe) N18.4 ; Pain in right hip M25.551 and Pain in left hip M25.552 [address] [address] [address] Nov, Chronic kidney disease, stage 4 (severe) N18.4 [facility] [id number] [place] [address] Nov, [facility] [address] [address] Nov, [facility] [id number] [place] [address] October, Chronic obstructive pulmonary disease with (acute) exacerbation J44.1 ; Chronic systolic heart failure I50.22 ; CKD (chronic kidney disease) stage 4, GFR 15-29 ml/min N18.4 and Dependence on supplemental oxygen Z99.81 [facility] [id number] [place] [address] October, [facility] [id number] [place] [address] October, [facility] [id number] [place] [address] Sep, Chronic kidney disease, stage 4 (severe) N18.4 and Chronic kidney disease, stage IV (severe) N18.4 [address] [address] [place] [address] Sep, Chronic kidney disease, stage 4 (severe) N18.4 [facility] [address] [place] [address] Sep, Anxiety F41.9 ; Paroxysmal atrial fibrillation I48.0 ; Chronic kidney disease, stage 4 (severe) N18.4 ; Chronic systolic heart failure I50.22 and Anemia associated with chronic renal failure D63.1 [facility] [address] [address] Sep, [facility] [id number] [place] [address] Aug, [facility] [id number] [place] [address] Aug, [facility] [address] [facility] [address] [address] [place] [id number] Aug, Acute on chronic combined systolic and diastolic CHF (congestive heart failure) I50.43 ; Essential hypertension I10 ; CKD (chronic kidney disease) stage 4, GFR 15-29 ml/min N18.4 ; Paroxysmal atrial fibrillation I48.0 and Mild depression F32.0 [facility] [id number] [place] [address] 26 Aug, 2017 [facility] [id number] [place] [address] Aug, [facility] [id number] [place] [address] Aug, Acute on chronic respiratory failure with hypoxia J96.21 ; Acute kidney failure, unspecified N17.9 ; Chronic kidney disease, stage 4 (severe) N18.4 ; Acute on chronic combined systolic and diastolic CHF (congestive heart failure) I50.43 ; Paroxysmal atrial fibrillation I48.0 and Cardiomyopathy, unspecified type I42.9 [facility] [id number] [place] [address] Aug, [facility] [id number] [place] [address] 14 Jul, 2017 [facility] [id number] [place] [address] Jul, [facility] [address] [place] [address] 08 Jul, 2017 [facility] [address] [place] [address] Jul, [facility] [id number] [place] [address] 06 Jul, 2017 Community acquired pneumonia of right lower lobe of lung J18.1 ; CKD (chronic kidney disease) stage 4, GFR 15-29 ml/min N18.4 and Shortness of breath R06.02 [facility] [id number] [place] [id number] 05 Jul, 2017 [facility] [id number] [place] [address] Jun, Anxiety F41.9 [facility] [id number] [place] [address] Apr, Anxiety F41.9 [facility] [address] [address] 10 Apr, 2017 Cough R05 and Pneumonia of right lower lobe due to infectious organism J18.1 [address] [address] [address] 07 Apr, 2017 [address] [address] [address] Apr, Chronic kidney disease, stage IV (severe) N18.4 and COPD exacerbation J44.1 [address] [address] [address] Feb, Chronic systolic heart failure I50.22 ; Essential hypertension I10 ; Anemia associated with chronic renal failure D63.1 and Chronic kidney disease, stage 4 (severe) N18.4 [address] [address] [address] Feb, Anxiety F41.9 [address] [address] [address] Feb, [facility] [address] [address] Feb, [facility] [address] [address] Jan, Other fatigue R53.83 ; Otalgia of both ears H92.03 and Urinary urgency R39.[address] [address] Jan, Acute non-recurrent maxillary sinusitis J01.00 ; Chronic systolic heart failure I50.22 ; Stage 3 chronic kidney disease N18.3 and Mild depression F32.0 [facility] [address] [address] 14 Sep, 2014 [facility] [place] [facility] [address] [id number] [place] [address] 13 Sep, 2014 [facility] [place] [facility] [address] [id number] [place] [address] Feb, [facility] [place] [facility] [address] [id number] [place] [address] Feb, [facility] [place] [facility] [address] [id number] [place] [address] Dec, [facility] [place] [facility] [address] [id number] [place] [address] Dec, [facility] [place] [facility] [address] [id number] [place] [address] Nov, [facility] [place] [facility] [address] [id number] [place] [address] Nov, [facility] [place] [facility] [address] [id number] [place] [address] Nov, [facility] [place] [facility] [address] [id number] [place] [address] Nov, [facility] [place] [facility] [address] [facility] [id number] [place] [address] October, [facility] [place] [facility] [address] [id number] [place] [address] October, [facility] [place] [facility] [address] [id number] [place] [address] Sep, [facility] [place] [facility] [address] [id number] [place] [address] Sep, [facility] [place] [facility] [address] [id number] [place] [address] Sep, [facility] [place] [facility] [address] [id number] [place] [address] Sep, [facility] [place] [facility] [address] [id number] [place] [address] Sep, [facility] [place] [facility] [address] [id number] [place] [address] Aug, [facility] [place] [facility] [address] [id number] [place] [address] Aug, [facility] [place] [facility] [address] [id number] [place] [address] Aug, [facility] [place] [facility] [address] [id number] [place] [address] Aug, [facility] [place] [facility] [address] [id number] [place] [address] Aug, [facility] [place] [facility] [address] [id number] [place] [address] Aug, [facility] [place] [facility] [address] [id number] [place] [address] Aug, [facility] [place] [facility] [address] [id number] [place] [address] Aug, [facility] [place] [facility] [address] [id number] [place] [address] Jul, [facility] [place] [facility] [address] [id number] [place] [address] Jul, [facility] [place] [facility] [address] [id number] [place] [address] Jul, [facility] [place] [facility] [address] [id number] [place] [address] Jul, [facility] [place] [facility] [address] [id number] [place] [address] Jul, [facility] [place] [facility] [address] [id number] [place] [address] Jul, [facility] [place] [facility] [address] [id number] [address] Jun, [facility] [address] [id number] [place] [address] 14 Jun, 2013 [facility] [place] [facility] [address] [id number] [place] [address] 14 Jun, 2013 [facility] [place] [facility] [address] [id number] [place] [address] Jun, [facility] [place] [facility] [address] [id number] [place] [address] Jun, [facility] [place] [facility] [address] [id number] [place] [address] May, [facility] [place] [facility] [address] [id number] [place] [address] May, [facility] [place] [facility] [address] [id number] [place] [address] May, [facility] [place] [facility] [address] [id number] [place] [address] May, [facility] [place] [facility] [address] [id number] [address] May, [facility] [place] [facility] [address] [id number] [place] [address] Apr, [facility] [place] [facility] [address] [id number] [place] [address] Apr, [facility] [place] [facility] [address] [id number] [place] [address] Mar, [facility] [place] [facility] [address] [id number] [place] [address] Mar, [facility] [place] [facility] [address] [id number] [place] [address] Mar, [facility] [place] [facility] [address] [id number] [place] [address] Mar, [facility] [place] [facility] [address] [id number] [place] [address] 16 Feb, 2013 [facility] [place] [facility] [address] [id number] [place] [address] Jan, [facility] [place] [facility] [address] [id number] [place] [address] Jan, [facility] [place] [facility] [address] [id number] [place] [address] Aug, [facility] [place] [facility] [address] [id number] [place] [address] Jul, [facility] [place] [facility] [address] [id number] [place] [address] Jun, [facility] [place] [facility] [address] [facility] [id number] [place] [address] May, [facility] [place] [facility] [address] [id number] [place] [address] May, [facility] [place] [facility] [address] [id number] [place] [address] May, [facility] [place] [facility] [address] [id number] [place] [address] May, [facility] [place] [facility] [address] [facility] [id number] [place] [address] Apr, [facility] [place] [facility] [address] [id number] [place] [address] Apr, [facility] [place] [facility] [address] [id number] [place] [address] Mar, [facility] [place] [facility] [address] [id number] [place] [address] Mar, [facility] [place] [facility] [address] [facility] [id number] [place] [address] Mar, [facility] [place] [facility] [address] [id number] [place] [address] Mar, [facility] [id number] [address] Mar, [facility] [address] [address] Mar, [facility] [address] [id number] [address] Dec, [facility] [address] [address] Dec, [facility] [address] [address] Nov, [facility] [address] [address] Nov, [facility] [address] [address] October, [facility] [address] [address] October, [facility] [address] [address] Sep, [facility] [address] [address] Aug, [facility] [id number] [address] Aug, [facility] [id number] [address] Aug, IMMUNIZATIONS No Known Immunizations SOCIAL HISTORY Never Assessed REASON FOR VISIT EMR[place] [place]AN OF CARE VITAL SIGNS MEDICATIONS Medication Instructions Dosage Frequency Start Date End Date Duration Status Multivitamin take 1 tablet by oral route once daily with food Aug, Active Aciphex 20 mg 1 tablet by Oral route 1 time per day generic Aug, Active amiodarone 1 Tablet by Oral route 1 time per day Apr, Active Protonix 1 Tablet by Oral route 1 time per day Apr, Active Furosemide 40 mg 1 tablet by Oral route 1 time per day PRN edema 17 Feb, 2014 Active Phenergan 25 mg 1 tablet by Oral route every 6 hours PRN nausea Sep, Active Mucus Relief 400 mg 1 Tablet by Oral route 2 times per day Aug, Active Symbicort 160-4.5 mcg/actuation inhale 2 puffs by inhalation route 2 times per day in the morning and evening Jun, Active Amoxicillin 500 mg 1 capsule by Oral route 3 times per day for 7 day(s) Dec, Active Doxycycline Hyclate 100 mg take 1 tablet (100 mg) by oral route 2 times per day for 7 days Nov, Active Omnicef 300 mg 2 capsule by Oral route 1 time per day for 7 day(s) Feb, Active Ativan 0.5 mg 1 tablet by Oral route 2 times per day PRN anxiety Dec, Active Fiber by Oral route Aug, Active ProAir HFA 90 mcg/actuation 2 puffs by Inhalation route 4 times per day for 30 day(s) Sep, Active Magnesium Oxide 1 Tablet by Oral route 1 time per day Apr, Active Fioricet 50-325-40 mg 1 tablet by Oral route every 6 hours PRN HEADACHE Jan, Active PredniSONE 20 mg 3 tablet by Oral route 1 time per day for 5 day(s) Feb, Active Albuterol Sulfate 2.5 mg /3 mL (0.083 %) 1 Each by Inhalation route every 4 hours for cough and wheeze PRN for wheezing or cough Aug, Active Zoloft 100 mg 1 tablet by Oral route 1 time per day Sep, Active RESULTS No Results PROCEDURES No Known procedures INSTRUCTIONS MEDICATIONS ADMINISTERED No Known Medications MEDICAL (GENERAL) HISTORY Type Description Date Medical History hyperlipidemia Medical History htn Medical History kidney failure stage 4 - dx in 2012 Medical History hypothyroidisim Medical History neuropathy Medical History COPD - See's Dr Burnette in [facility] Medical History Chronic Heart Failure Surgical History 2 [facility] Surgical History defibrillator - 2012 Hospitalization History pneumonia for a week 2016 Hospitalization History Hospitalized at [facility]- CHF, Chest pain. Dismissed 07/11/17 07/10/2017 Hospitalization History [facility] pneumonia, hypoxia-[facility] 07/30/17 Hospitalization History [facility]- [facility] PNA, Respiratory Failure. Transfered to [place] 10/25/2017 Hospitalization History CHF/COPD 11/2017 Hospitalization History Flu 06/2018
--- OUTSIDE RECORDS SUMMARY | 2019-01-04 02:01 | XMS REPORT ---
Author Author Migration, Doctor Organization [facility] Address Unknown Phone Unavailable Care Team Providers Care Loan Manager Name Role Phone Migration, Doctor Unavailable Unavailable PROBLEMS Type Condition ICD9-CM Code OAB02-DO Code Onset Dates Condition Status SNOMED Code Problem Essential hypertension I10 Active 32788202 Problem Mild depression F32.0 Active 063717020 Problem Chronic systolic heart failure I50.22 Active 505554553 Problem Anxiety F41.9 Active 24864438 Problem Anemia associated with chronic renal failure D63.1 Active 197754856 Problem Chronic obstructive pulmonary disease with (acute) exacerbation J44.1 Active 488720799 Problem Paroxysmal atrial fibrillation I48.0 Active 200332776 Problem Cardiomyopathy I42.9 Active 29633487 Problem Supplemental oxygen dependent Z99.81 Active 481210088100 Problem Acute on chronic systolic CHF (congestive heart failure) I50.23 Active 359159430 Problem Gastroesophageal reflux disease without esophagitis K21.9 Active 201471016 Problem Chronic obstructive pulmonary disease, unspecified J44.9 Active 76943562 Problem Chronic pain syndrome G89.4 Active 130396760 Problem Psychophysiological insomnia F51.04 Active 300164472 Problem Acquired hypothyroidism E03.9 Active 481788915 Problem Slow transit constipation K59.01 Active 43272813 Problem COPD with acute lower respiratory infection J44.0 Active 219969625 Problem Chronic kidney disease, stage IV (severe) N18.4 Active [id number] ALLERGIES No Information ENCOUNTERS Encounter Location Date Diagnosis [facility] [id number], [place] [address] October, Chronic kidney disease, stage IV (severe) N18.4 ; Chronic systolic heart failure I50.22 ; Chronic obstructive pulmonary disease, unspecified J44.9 and Chronic pain syndrome G89.4 [facility] [id number] [address] October, [facility] [id number] [place] [address] October, Psychophysiological insomnia F51.04 [facility] [id number] [place] [address] Sep, Psychophysiological insomnia F51.04 [facility] [id number] [place] [address] Sep, Psychophysiological insomnia F51.04 [facility] [address] [address] Sep, [facility] [address] [place] [id number] Sep, Pneumonia of both lungs due to infectious organism, unspecified part of lung J18.9 [facility] [id number] [place] [address] Aug, [address] [address] Aug, Psychophysiological insomnia F51.04 [facility] [address] [facility] [place] [id number] Jul, Cellulitis of left lower extremity L03.116 [facility] [id number] [place] [address] Jul, [facility] [id number] [place] [address] Jul, Viral upper respiratory infection J06.9 and Nausea R11.0 [facility] [id number] [place] [address] 06 Jul, 2018 Psychophysiological insomnia F51.04 [facility] [id number] [place] [address] 05 Jul, 2018 Psychophysiological insomnia F51.04 [facility] [id number] [place] [address] Jul, [facility] [id number] [place] [address] Jul, [facility] [address], [place] [address] Jul, Psychophysiological insomnia F51.04 [facility] [address], [place] [address] Jun, [facility] [id number] [place] [address] Jun, [facility] [id number] [place] [address] Jun, [facility] [id number] [place] [address] Jun, [facility] [id number] [place] [address] Jun, [facility] [id number] [place] [address] Jun, [facility] [address], [place] [address] Jun, [facility] [id number] [place] [address] Jun, Psychophysiological insomnia F51.04 ; Chronic obstructive pulmonary disease with (acute) exacerbation J44.1 ; Chronic systolic heart failure I50.22 ; Supplemental oxygen dependent Z99.81 ; Chronic kidney disease, stage IV (severe) N18.4 ; Nausea R11.0 ; Debility R53.81 and Diarrhea, unspecified type R19.7 [facility] [address], [place] [address] May, [facility] [id number] [place] [address] May, [facility] [address], [place] [address] May, [facility] [id number] [place] [address] May, [address] [address], [place] [address] May, [facility] [id number] [place] [address] Apr, [facility] [address] [place] [id number] Apr, Mild depression F32.0 ; Essential hypertension I10 ; Chronic systolic heart failure I50.22 ; Chronic obstructive pulmonary disease with (acute) exacerbation J44.1 ; Paroxysmal atrial fibrillation I48.0 ; Chronic kidney disease, stage IV (severe) N18.4 ; Acquired hypothyroidism E03.9 ; Clotted dialysis access, sequela T82.49XS ; Psychophysiological insomnia F51.04 and Gastroesophageal reflux disease without esophagitis K21.9 [facility] [id number] [place] [address] Apr, Psychophysiological insomnia F51.04 [facility] [id number] [place] [address] 14 Apr, 2018 [address] [id number] [place] [address] Apr, [address] [id number] [place] [address] Mar, [facility] [address] [place] [id number] Mar, Acute respiratory failure with hypoxia J96.01 ; Acute pancreatitis, unspecified complication status, unspecified pancreatitis type K85.90 ; Chronic kidney disease, stage IV (severe) N18.4 ; Rash R21 and Gastroesophageal reflux disease without esophagitis K21.9 [id number] [place] [address] Mar, Psychophysiological insomnia F51.04 [facility] [id number] [place] [address] Mar, [facility] [address] [place] [id number] Feb, Vertigo R42 and Chronic kidney disease, stage IV (severe) N18.4 [address] [facility] [address], [place] [address] 24 Feb, 2018 [facility] [address] [place] [id number] 20 Feb, 2018 Cellulitis of breast N61.0 [address] [address], [place] [address] 18 Feb, 2018 [address] [facility] [id number] [place] [address] 16 Feb, 2018 [facility] [id number] [place] [address] 12 Feb, 2018 Psychophysiological insomnia F51.04 [facility] [address] [place] [id number] 11 Feb, 2018 Urinary tract infection without hematuria, site unspecified N39.0 ; Chronic kidney disease, stage IV (severe) N18.4 and Chronic systolic heart failure I50.22 [address], [place] [address] 10 Feb, 2018 [facility] [address] [place] [id number] 04 Feb, 2018 Chronic kidney disease, stage IV (severe) N18.4 ; Chronic systolic heart failure I50.22 ; COPD with acute lower respiratory infection J44.0 ; Vertigo R42 ; Slow transit constipation K59.01 ; Hemorrhoids, unspecified hemorrhoid type K64.9 ; Acquired hypothyroidism E03.9 ; Candidiasis of breast B37.89 and Difficulty in urination R39.198 [address], [place] [address] Jan, Acute on chronic systolic CHF (congestive heart failure) I50.23 ; Acute kidney failure, unspecified N17.9 ; Chronic kidney disease, stage III (moderate) N18.3 and Supplemental oxygen dependent Z99.81 [address], [place] [address] Jan, Acute on chronic combined systolic and diastolic CHF (congestive heart failure) I50.43 [facility] [id number] [place] [address] Jan, [facility] [id number] [place] [address] Jan, Irritant contact dermatitis due to cosmetics L24.3 ; Effusion of right wrist M25.431 and Pain in right wrist M25.531 [address] [place] [id number] [place] [address] Dec, Chronic systolic heart failure I50.22 ; Chronic obstructive pulmonary disease with (acute) exacerbation J44.1 ; CKD (chronic kidney disease) stage 4, GFR 15-29 ml/min N18.4 ; Cardiomyopathy I42.9 ; Dependence on supplemental oxygen Z99.81 and Psychophysiological insomnia F51.04 [id number] [place] [address] Dec, Anxiety F41.9 [address] [address] Dec, [address] [address] Dec, [address] [id number] [place] [address] Dec, [facility] [address] [place] [id number] Dec, Encounter for examination for admission to shelter Z02.2 ; Chronic obstructive pulmonary disease, unspecified J44.9 ; Paroxysmal atrial fibrillation I48.0 ; CKD (chronic kidney disease) stage 4, GFR 15-29 ml/min N18.4 and Cardiomyopathy I42.9 [address] [id number] [place] [address] Dec, [address] [id number] [place] [address] Nov, Acute on chronic combined systolic and diastolic CHF (congestive heart failure) I50.43 [address] [facility], [place] [address] Nov, [facility] [address], [place] [address] Nov, [facility] [address], [place] [address] Nov, Chronic systolic heart failure I50.22 ; Paroxysmal atrial fibrillation I48.0 ; Chronic obstructive pulmonary disease with (acute) exacerbation J44.1 ; Chronic kidney disease, stage 4 (severe) N18.4 ; Pain in right hip M25.551 and Pain in left hip M25.552 [address] [place] [address] Nov, Chronic kidney disease, stage 4 (severe) N18.4 [facility] [address], [place] [address] Nov, [facility] [address], [place] [address] Nov, [facility] [address], [place] [address] October, Chronic obstructive pulmonary disease with (acute) exacerbation J44.1 ; Chronic systolic heart failure I50.22 ; CKD (chronic kidney disease) stage 4, GFR 15-29 ml/min N18.4 and Dependence on supplemental oxygen Z99.81 [facility] [address], [place] [address] October, [facility] [address], [place] [address] October, [facility] [id number], [place] [address] Sep, Chronic kidney disease, stage 4 (severe) N18.4 and Chronic kidney disease, stage IV (severe) N18.4 [facility] [address], [place] [address] Sep, Chronic kidney disease, stage 4 (severe) N18.4 [address] [place] [address] Sep, Anxiety F41.9 ; Paroxysmal atrial fibrillation I48.0 ; Chronic kidney disease, stage 4 (severe) N18.4 ; Chronic systolic heart failure I50.22 and Anemia associated with chronic renal failure D63.[address] [address] Sep, [id number] [place] [address] Aug, [address] [id number] [place] [address] Aug, [facility] [address] [place] [id number] Aug, Acute on chronic combined systolic and diastolic CHF (congestive heart failure) I50.43 ; Essential hypertension I10 ; CKD (chronic kidney disease) stage 4, GFR 15-29 ml/min N18.4 ; Paroxysmal atrial fibrillation I48.0 and Mild depression F32.0 [id number] [place] [address] Aug, [address] [id number] [place] [address] Aug, [address] [id number] [place] [address] Aug, Acute on chronic respiratory failure with hypoxia J96.21 ; Acute kidney failure, unspecified N17.9 ; Chronic kidney disease, stage 4 (severe) N18.4 ; Acute on chronic combined systolic and diastolic CHF (congestive heart failure) I50.43 ; Paroxysmal atrial fibrillation I48.0 and Cardiomyopathy, unspecified type I42.9 [address] [id number] [place] [address] Aug, [facility] [id number] [place] [address] 14 Jul, 2017 [facility] [address] [place] [address] Jul, [facility] [id number] [place] [address] Jul, [facility] [id number] [place] [address] Jul, [facility] [id number] [place] [address] Jul, Community acquired pneumonia of right lower lobe of lung J18.1 ; CKD (chronic kidney disease) stage 4, GFR 15-29 ml/min N18.4 and Shortness of breath R06.02 [facility] [id number] [place] [id number] Jul, [id number] [place] [address] Jun, Anxiety F41.9 [address] [id number] [place] [address] Apr, Anxiety F41.9 [address] [id number] [place] [address] 10 Apr, 2017 Cough R05 and Pneumonia of right lower lobe due to infectious organism J18.1 [address] [place] [place] [address] Apr, [facility] [id number] [place] [address] 06 Apr, 2017 Chronic kidney disease, stage IV (severe) N18.4 and COPD exacerbation J44.1 [address] [id number] [place] [address] 28 Feb, 2017 Chronic systolic heart failure I50.22 ; Essential hypertension I10 ; Anemia associated with chronic renal failure D63.1 and Chronic kidney disease, stage 4 (severe) N18.4 [address] [id number] [place] [address] Feb, Anxiety F41.9 [facility] [id number] [place] [address] Feb, [facility] [id number] [place] [address] Feb, [facility] [id number] [place] [address] Jan, Other fatigue R53.83 ; Otalgia of both ears H92.03 and Urinary urgency R39.15 [facility] [id number] [place] [address] Jan, Acute non-recurrent maxillary sinusitis J01.00 ; Chronic systolic heart failure I50.22 ; Stage 3 chronic kidney disease N18.3 and Mild depression F32.0 [facility] [id number] [place] [address] Sep, [facility] [id number] [place] [address] Sep, [facility] [id number] [place] [address] Feb, [facility] [id number] [place] [address] Feb, [facility] [id number] [place] [address] Dec, [facility] [id number] [place] [address] Dec, [facility] [id number] [place] [address] Nov, [facility] [id number] [place] [address] Nov, [facility] [id number] [place] [address] Nov, [facility] [place] [facility] [address] [id number] [place] [address] Nov, [facility] [place] [facility] [address] [id number] [place] [address] October, [facility] [place] [facility] [address] [id number] [place] [address] October, [facility] [place] [facility] [address] [id number] [place] [address] Sep, [facility] [place] [facility] [address] [id number] [place] [address] Sep, [facility] [place] [facility] [address] [id number] [place] [address] Sep, [facility] [place] [facility] [address] [id number] [place] [address] Sep, [facility] [place] [facility] [address] [id number] [place] [address] Sep, [facility] [place] [facility] [address] [id number] [place] [address] Aug, [facility] [place] [facility] [address] [id number] [place] [address] Aug, [facility] [place] [facility] [address] [id number] [place] [address] Aug, [facility] [place] [facility] [address] [id number] [place] [address] Aug, [facility] [place] [facility] [address] [id number] [place] [address] Aug, [facility] [place] [facility] [address] [id number] [place] [address] Aug, [facility] [place] [facility] [address] [id number] [place] [address] 06 Aug, 2013 [facility] [place] [facility] [address] [id number] [place] [address] Aug, [facility] [place] [facility] [address] [id number] [place] [address] Jul, [facility] [place] [facility] [address] [id number] [place] [address] Jul, [facility] [place] [facility] [address] [id number] [place] [address] Jul, [facility] [place] [facility] [address] [id number] [place] [address] Jul, [facility] [place] [facility] [address] [id number] [place] [address] Jul, [facility] [place] [facility] [address] [id number] [place] [address] Jul, [facility] [place] [facility] [address] [id number] [place] [address] Jun, [facility] [place] [facility] [address] [id number] [place] [address] Jun, [facility] [place] [facility] [address] [id number] [place] [address] Jun, [facility] [place] [facility] [address] [facility] [id number] [place] [address] Jun, [facility] [place] [facility] [address] [id number] [place] [address] Jun, [facility] [place] [facility] [address] [id number] [place] [address] May, [facility] [place] [facility] [address] [id number] [place] [address] May, [facility] [place] [facility] [address] [id number] [place] [address] May, [facility] [place] [facility] [address] [id number] [place] [address] May, [facility] [place] [facility] [address] [id number] [place] [address] May, [facility] [address] [id number] [place] [address] Apr, [facility] [address] [id number] [place] [address] Apr, [facility] [address] [id number] [place] [address] Mar, [facility] [address] [id number] [place] [address] Mar, [facility] [address] [id number] [place] [address] Mar, [facility] [address] [id number] [place] [address] Mar, [facility] [address] [id number] [place] [address] Feb, [facility] [address] [id number] [place] [address] Jan, [facility] [address] [id number] [place] [address] Jan, [facility] [address] [id number] [place] [address] Aug, [facility] [address] [id number] [address] Jul, [facility] [place] [facility] [address] [id number] [place] [address] Jun, [facility] [place] [facility] [address] [id number] [place] [address] May, [facility] [place] [facility] [address] [id number] [place] [address] May, [facility] [place] [facility] [address] [id number] [place] [address] May, [facility] [place] [facility] [address] [id number] [place] [address] May, [facility] [place] [facility] [address] [id number] [place] [address] Apr, [facility] [place] [facility] [address] [id number] [place] [address] Apr, [facility] [place] [facility] [address] [id number] [place] [address] Mar, [facility] [place] [facility] [address] [id number] [place] [address] Mar, [facility] [place] [facility] [address] [id number] [place] [address] Mar, [facility] [place] [facility] [address] [id number] [place] [address] Mar, [facility] [place] [facility] [address] [id number] [place] [address] Mar, [facility] [place] [facility] [address] [id number] [place] [address] Mar, [facility] [place] [facility] [address] [id number] [place] [address] Dec, [facility] [place] [facility] [address] [id number] [place] [address] Dec, [facility] [place] [facility] [address] [id number] [place] [address] Nov, [facility] [place] [facility] [address] [id number] [place] [address] Nov, [facility] [place] [facility] [address] [id number] [place] [address] October, [facility] [place] [facility] [address] [facility] [id number] [place] [address] October, [facility] [place] [facility] [address] [facility] [id number] [place] [address] Sep, [facility] [address] [facility] [id number], [place] [address] Aug, [facility] [address] [facility] [id number], [place] [address] Aug, [facility] [address] [facility] [id number], [place] [address] Aug, IMMUNIZATIONS No Known Immunizations SOCIAL HISTORY Never Assessed REASON FOR VISIT EMR-[facility] PLAN OF CARE VITAL SIGNS MEDICATIONS Unknown [...] week 2016 Hospitalization History Hospitalized at [facility]- CHF, Chest pain. Dismissed 07/11/17 07/10/2017 Hospitalization History [facility] pneumonia, hypoxia-[facility] 07/30/17 Hospitalization History [facility]- [facility] PNA, Respiratory Failure. Transfered to [facility] 10/25/2017 Hospitalization History CHF/COPD 11/2017 Hospitalization History Flu 06/2018
[2019-01-04 02:07] LABS: ABG BASE EXCESS -4.2 MMOL/L (-2.5-2.5); ABG OXYGEN SATURATION 97 % (94-100); ABG PCO2 52 MMHG (35-45); ABG PH 7.25 (7.37-7.43); ABG PO2 95 MMHG (79-93); ABG TCO2 23.8 MMOL/L (21.0-31.0); ALLENS TEST POSITIVE; INSPIRED O2 4; PATIENT TEMP 96.9; VENTILATOR NO
[2019-01-04 02:23] LABS: BASOPHILS % (AUTO) 1 % (0-10); EOSINOPHILS % (AUTO) 1 % (0-10); HEMATOCRIT 35 % (35-52); HEMOGLOBIN 10.7 G/DL (11.5-16.0); LYMPHOCYTES # (AUTO) 0.4 X 10^3 (1.0-4.0); LYMPHOCYTES % (AUTO) 7 % (12-44); MEAN CORPUSCULAR HEMOGLOBIN 30 PG (25-34); MEAN CORPUSCULAR HGB CONC 31 G/DL (32-36); MEAN CORPUSCULAR VOLUME 99 FL (80-99); MEAN PLATELET VOLUME 11.7 FL (7.4-10.4); MONOCYTES # (AUTO) 0.5 X 10^3 (0.0-1.0); MONOCYTES % (AUTO) 7 % (0-12); NEUTROPHILS # (AUTO) 5.7 X 10^3 (1.8-7.8); NEUTROPHILS % (AUTO) 85 % (42-75); PLATELET COUNT 282 10^3/uL (130-400); RED CELL DISTRIBUTION WIDTH 17.4 % (10.0-14.5); WHITE BLOOD COUNT 6.7 10^3/uL (4.3-11.0)
[2019-01-04 02:43] LABS: ALBUMIN 2.9 GM/DL (3.2-4.5); BILIRUBIN,TOTAL 0.6 MG/DL (0.1-1.0); CALCIUM 9.3 MG/DL (8.5-10.1); CREATININE SERUM 3.14 MG/DL (0.60-1.30); POTASSIUM 4.4 MMOL/L (3.6-5.0); TOTAL PROTEIN 6.4 GM/DL (6.4-8.2)
--- NOTE | 2019-01-04 04:50 | ED General ---
General Chief Complaint: Respiratory Problems Stated Complaint: SOA Source of Information: Patient Exam Limitations: No Limitations History of Present Illness Date Seen by Provider: Jan 04, 2019 Time Seen by Provider: 01:44 Initial Comments This 58-year-old woman presents to the emergency room with complaints of shortness of air for a few hours. She is satting at 98 percent on 4 L. She typically uses 4 L at home. She vomited earlier tonight as well. She reports using a nebulizer treatment earlier tonight which did help. She lives at home with her daughter. She denies any cough, fever, or chest pain. She has had positive nausea and vomiting. She has end-stage renal failure and is on dialysis. She is not nauseated now. Allergies and Home Medications Allergies Coded Allergies: propoxyphene napsylate (Unverified Allergy, Severe, SEVERE NAUSEA AND VOMITING , 04/03/13) meperidine (Unverified Allergy, Unknown, 12/19/14) venom-honey bee (Verified Allergy, Unknown, 09/19/13) lisinopril (Verified Adverse Reaction, Unknown, PT STATES "BOTTOMS OUT" HER BLOOD PRESSURE, 03/12/15) Patient states that it "bottoms out" her blood pressure. She will refuse to take this medication and reports it as an allergy. Home Medications Acetaminophen 500 Mg Tablet, 1,000 MG PO Q6H PRN for PAIN-MILD, (Reported) Albuterol Sulfate 1 Puff Puff, 2 PUFF IH Q6H PRN for SHORTNESS OF BREATH, (Reported) Amiodarone HCl 200 Mg Tablet, 200 MG PO DAILY, (Reported) Bisacodyl 5 Mg Tablet.dr, 5 MG PO DAILY PRN for CONSTIPATION-4TH LINE, (Rep orted) Carvedilol 6.25 Mg Tablet, 6.25 MG PO BID, (Reported) Cephalexin 500 Mg Capsule, 500 MG PO BID, (Reported) 2 DAY SUPPLY START DATE 09-03-18 EVENING DOSE AND END DATE 3 AM DOSE Docusate Sodium 100 Mg Tablet, 100 MG PO DAILY PRN for CONSTIPATION-1ST LINE, (Reported) Ipratropium/Albuterol Sulfate 3 Ml Ampul.neb, 3 ML IH Q4H PRN for SHORTNESS OF BREATH, (Reported) Isosorbide Dinitrate 30 Mg Tablet, 15 MG PO BID, (Reported) TAKES 1/2 (30MG) TABLET Levothyroxine Sodium 25 Mcg Tablet, 25 MCG PO DAILY, (Reported) Loperamide HCl 2 Mg Capsule, 2 MG PO Q6H PRN for DIARRHEA, (Reported) Lorazepam 0.5 Mg Tablet, 0.5 MG PO HS, (Reported) Mag Hydrox/Al Hydrox/Simeth 30 Ml Oral.susp, 30 ML PO Q4H PRN for INDIGESTION, (Reported) Midodrine HCl 10 Mg Tablet, 10 MG PO DAILY, (Reported) Multivitamins-Min/FA/Ginkgo 1 Each Tablet, 1 TAB PO DAILY, (Reported) Ondansetron HCl 4 Mg Tablet, 4 MG PO Q6H PRN for NAUSEA/VOMITING-1ST LINE, (Reported) Oxycodone HCl 5 Mg Tablet, 5 MG PO Q6H PRN for PAIN-SEVERE, (Reported) Polyethylene Glycol 3350 17 Gm Powd.pack, 17 GM PO Q8H PRN for CONSTIPATION-2ND LINE, (Reported) Sertraline HCl 100 Mg Tablet, 100 MG PO HS, (Reported) Patient Home Medication List Home Medication List Reviewed: Yes Review of Systems Review of Systems Constitutional: no symptoms reported EENTM: no symptoms reported Respiratory: see HPI Cardiovascular: no symptoms reported Gastrointestinal: see HPI Genitourinary: no symptoms reported : No Musculoskeletal: no symptoms reported Skin: no symptoms reported Psychiatric/Neurological: No Symptoms Reported Hematologic/Lymphatic: No Symptoms Reported Immunological/Allergic: no symptoms reported Past Oggcsxw-Hbwwzx-Rzewnj Hx Patient Social History Alcohol Use: Denies Use Alcohol Beverage of Choice: Beer Recreational Drug Use: No Drug of Choice: THC USE IN PAST Smoking Status: Former Smoker Type Used: Cigarettes Former Smoker, Quit: Jul 09, 2017 2nd Hand Smoke Exposure: No Recent Hopitalizations: No Immunizations Up To Date Tetanus Booster (TDap): Unknown PED Vaccines UTD: Yes Date of Pneumonia Vaccine: Mar 30, 2013 Date of Influenza Vaccine: Mar 30, 2018 Seasonal Allergies Seasonal Allergies: Yes Past Medical History Surgeries: Yes Cardiac, Section, Defibrillator, Dialysis, Hysterectomy, Vascular Surgery Respiratory: Yes Asthma, Pneumonia, Sleep Apnea, COPD Currently Using CPAP: No Currently Using BIPAP: Yes Cardiac: Yes Atrial Fibrillation, Cardiomyopathy, Chronic Edema/Swelling, Coronary Artery Disease, High Cholesterol, Hypertension Neurological: Yes Headaches /Migraines 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 Disorders: Yes (Hysterectomy) 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 Disorders: Denies 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 ) Renal Failure, Dialysis, UTI-Chronic Gastrointestinal: Yes (HX OF ELEVATED LFT'S) Gastroesophageal Reflux, Liver Disease/Jaundice, Hiatal Hernia Musculoskeletal: Yes Arthritis Endocrine: Yes Hypothyroidsim HEENT: Yes Cataract Loss of Vision: Denies Hearing Impairment: Denies Cancer: No Bladder Psychosocial: Yes Sleep Difficulties, Anxiety, Depression Integumentary: Yes (CHRONIC SORES FROM CONSTANT "PICKING" ) Recent Skin Changes Blood Disorders: Yes (ANEMIA) Adverse Reaction/Blood Tranf: No Family Medical History Cancer 19 FATHER (HODGKINS ) 19 MOTHER (BRAIN TUMOR ) Congenital heart disease 19 MOTHER Congestive heart failure 19 MOTHER Family history: Cardiovascular disease 19 MOTHER G8 SISTER G8 SISTER Family history: Hypertension 19 MOTHER G8 SISTER G8 SISTER Heart disease 19 MOTHER G8 SISTER G8 SISTER History of - respiratory disease 19 MOTHER G8 BROTHER G8 SISTER Heart Disease, Cancer, Hypertension Physical Exam Vital Signs Vital Signs - First Documented 01/04/19 01:53 Temp 96.4 Pulse 105 Resp 20 B/P (MAP) 124/84 (97) Pulse Ox 98 O2 Delivery Nasal Cannula O2 Flow Rate 4.00 Capillary Refill : Height, Weight, BMI Height: 4'9.00" Weight: 120lbs. 0.1oz. 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 Labs would suggest that she needs to follow through with her next dialysis treatment and that should improve her symptoms. Patient was stable for discharge home. Progress Note #2: Time: 07:29 Progress Note I received a call from the lab stating a culture that was plated but not ordered was starting to grow a bacterium. I have contacted the patient to check on her. I left a message on her voicemail. ECG Initial ECG Impression Date: Jan 04, 2019 Initial ECG Impression Time: 04:02 Initial ECG Rate: 99 Initial ECG Rhythm: Normal Sinus Comment Sinus rhythm with no ST elevation or depression. Borderline tachycardia. LVH. Diagnostic Imaging Diagonstic Imaging: Xray Plain Films/CT/US/NM/MRI: chest Comments Chest x-ray viewed by me and report reviewed. See report below: NAME: WYATT KULKARNI [facility] REC#: [id number] PT STATUS: DEP ER : [id number] PHYSICIAN: TOAN JOSE MD ADMIT DATE: 01/04/19/ER Draft Date of Exam:01/04/19 CHEST 1 VIEW, AP/PA ONLY PATIENT HISTORY: Shortness of air, cough and congestion. TECHNIQUE: Frontal view of the chest COMPARISON: 11/18/2018 FINDINGS: There is mild cardiomegaly which is stable. There is central vascular congestion which appears unchanged. There are small bilateral pleural effusions. There is a left-sided AICD which is stable. The right dual lumen catheter appeared stable. There is no pneumothorax. IMPRESSION: 1. Stable cardiomegaly with central basilar congestion and small pleural effusions. Findings appear similar to the prior exam. Dictated on workstation # [id number] Dict: 01/04/19 0653 Trans: 01/04/19 0654 CVB [id number] Interpreted by: MING SMITH MD Departure Impression Primary Impression: Dyspnea Qualified Codes: R06.00 - Dyspnea, unspecified Additional Impressions: COPD exacerbation End stage renal failure on dialysis Disposition: 01 HOME, SELF-CARE Condition: Improved Departure-Patient Inst. Decision time for Depature: 04:48 Referrals: TEAGAN VERNON MD (PCP/Family) Primary Care Physician Patient Instructions: COPD Including Emphysema (DC) Add. Discharge Instructions: Continue with your previously scheduled dialysis. Continue your medications as previously prescribed. Use your nebulizer treatments every 4 hours as needed for shortness of air or wheezing. Return to emergency room if you have worsening symptoms. All discharge instructions reviewed with patient and/or family. Voiced understanding. TOAN JOSE MD Jan 04, 2019 04:50
[2019-01-04 05:22] LABS: LYMPHOCYTES % (MANUAL) 4 %; MONOCYTES % (MANUAL) 5 %; NEUTROPHILS % (MANUAL) 91 %
[2019-01-04 05:26] VITALS: BP 127/82
--- NOTE | 2019-01-04 06:55 | Diagnostic Imaging Report ---
PATIENT HISTORY: Shortness of air, cough and congestion. TECHNIQUE: Frontal view of the chest COMPARISON: 11/18/2018 FINDINGS: There is mild cardiomegaly which is stable. There is central vascular congestion which appears unchanged. There are small bilateral pleural effusions. There is a left-sided AICD which is stable. The right dual lumen catheter appeared stable. There is no pneumothorax. IMPRESSION: 1. Stable cardiomegaly with central basilar congestion and small pleural effusions. Findings appear similar to the prior exam. Dictated by: Dictated on workstation # [id number]
== END 2019-01-04 05:25 | disposition home or self-care (01) ==
LOC: EDUNIT# 01:53 → ER 01:55
DX: J44.1 Chronic obstructive pulmonary disease with (acute) exacerbation (principal); I12.0 Hypertensive chronic kidney disease with stage 5 chronic kidney disease or end stage renal disease; N18.6 End stage renal disease; J45.909 Unspecified asthma, uncomplicated; E78.00 Pure hypercholesterolemia, unspecified; I25.10 Atherosclerotic heart disease of native coronary artery without angina pectoris; I48.91 Unspecified atrial fibrillation; I42.9 Cardiomyopathy, unspecified; G43.909 Migraine, unspecified, not intractable, without status migrainosus; K21.9 Gastro-esophageal reflux disease without esophagitis; E03.9 Hypothyroidism, unspecified; F32.9 Major depressive disorder, single episode, unspecified; F41.9 Anxiety disorder, unspecified; Z80.7 Family history of other malignant neoplasms of lymphoid, hematopoietic and related tissues; Z87.19 Personal history of other diseases of the digestive system; Z87.440 Personal history of urinary (tract) infections; Z87.01 Personal history of pneumonia (recurrent); Z95.810 Presence of automatic (implantable) cardiac defibrillator; Z90.710 Acquired absence of both cervix and uterus; Z99.2 Dependence on renal dialysis; Z99.81 Dependence on supplemental oxygen; Z88.6 Allergy status to analgesic agent; Z88.7 Allergy status to serum and vaccine; Z88.8 Allergy status to other drugs, medicaments and biological substances; Z87.891 Personal history of nicotine dependence; Z82.49 Family history of ischemic heart disease and other diseases of the circulatory system
CPT/HCPCS: 36415; 36600; 71045; 80053; 82805; 83880; 85007; 85027; 86141; 87040; 93005; 94640

== ENCOUNTER 2019-01-21 22:15 | Emergency (ER) | payer MEDICARE, MEDICAID ==
[~2019-01-21] VITALS: Ht 144.8 cm; Wt 52.3 kg
--- NOTE | 2019-01-21 22:43 | ED General ---
General Chief Complaint: Abdominal/GI Problems Stated Complaint: SOB Source of Information: Patient, Old Records History of Present Illness Date Seen by Provider: Jan 21, 2019 Time Seen by Provider: 22:25 Initial Comments PT ARRIVES VIA EMS FROM HOME--PT LIVES WITH DAUGHTER ( HAD PREVIOUSLY BEEN AT [facility] AND [facility], BUT STATES SHE HAS BEEN HOME/LIVING WITH DAUGHTER FOR 1 1/2 MONTHS) PT STATES "ALL WEEK LONG I'VE BEEN PUKING AND SICK AND CAN'T BREATHE" SYMPTOMS ARE NO DIFFERENT TODAY PT IS ON DIALYSIS--GOES [id number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 DANGELO Allergies and Home Medications Allergies Coded Allergies: propoxyphene napsylate (Unverified Allergy, Severe, SEVERE NAUSEA AND VOMITING , 04/03/13) meperidine (Unverified Allergy, Unknown, 12/19/14) venom-honey bee (Verified Allergy, Unknown, 09/19/13) lisinopril (Verified Adverse Reaction, Unknown, PT STATES "BOTTOMS OUT" HER BLOOD PRESSURE, 03/12/15) Patient states that it "bottoms out" her blood pressure. She will refuse to take this medication and reports it as an allergy. Home Medications Acetaminophen 500 Mg Tablet, 1,000 MG PO Q6H PRN for PAIN-MILD, (Reported) Albuterol Sulfate 1 Puff Puff, 2 PUFF IH Q6H PRN for SHORTNESS OF BREATH, (Reported) Amiodarone HCl 200 Mg Tablet, 200 MG PO DAILY, (Reported) Bisacodyl 5 Mg Tablet.dr, 5 MG PO DAILY PRN for CONSTIPATION-4TH LINE, ( Reported) Carvedilol 6.25 Mg Tablet, 6.25 MG PO BID, (Reported) Cephalexin 500 Mg Capsule, 500 MG PO BID, (Reported) 2 DAY SUPPLY START DATE 09-03-18 EVENING DOSE AND END DATE 09-05-18 AM DOSE Docusate Sodium 100 Mg Tablet, 100 MG PO DAILY PRN for CONSTIPATION-1ST LINE, (Reported) Ipratropium/Albuterol Sulfate 3 Ml Ampul.neb, 3 ML IH Q4H PRN for SHORTNESS OF BREATH, (Reported) Isosorbide Dinitrate 30 Mg Tablet, 15 MG PO BID, (Reported) TAKES 1/2 (30MG) TABLET Levothyroxine Sodium 25 Mcg Tablet, 25 MCG PO DAILY, (Reported) Loperamide HCl 2 Mg Capsule, 2 MG PO Q6H PRN for DIARRHEA, (Reported) Lorazepam 0.5 Mg Tablet, 0.5 MG PO HS, (Reported) Mag Hydrox/Al Hydrox/Simeth 30 Ml Oral.susp, 30 ML PO Q4H PRN for INDIGESTION, (Reported) Midodrine HCl 10 Mg Tablet, 10 MG PO DAILY, (Reported) Multivitamins-Min/FA/Ginkgo 1 Each Tablet, 1 TAB PO DAILY, (Reported) Nitrofurantoin Monohyd/M-Cryst 100 Mg Capsule, 100 MG PO BID Prescribed by: YANE WAKEFIELD on 01/22/19 0017 Ondansetron HCl 4 Mg Tablet, 4 MG PO Q6H PRN for NAUSEA/VOMITING-1ST LINE, (Reported) Oxycodone HCl 5 Mg Tablet, 5 MG PO Q6H PRN for PAIN-SEVERE, (Reported) Polyethylene Glycol 3350 17 Gm Powd.pack, 17 GM PO Q8H PRN for CONSTIPATION-2ND LINE, (Reported) Sertraline HCl 100 Mg Tablet, 100 MG PO HS, (Reported) Patient Home Medication List Home Medication List Reviewed: Yes Review of Systems Review of Systems Constitutional: chills, diaphoresis Respiratory: see HPI, cough, short of breath Cardiovascular: No chest pain, No edema, No palpitations, No syncope Gastrointestinal: abdominal pain, diarrhea, nausea, vomiting Genitourinary: see HPI; No decreased output, No dysuria Musculoskeletal: see HPI Skin: no symptoms reported Psychiatric/Neurological: No Symptoms Reported Hematologic/Lymphatic: Easy Bruising Past Hocnszn-Ykzute-Apznuu Hx Past Med/Social Hx: Reviewed and Corrections made Patient Social History Alcohol Use: Occasionally Uses Alcohol Beverage of Choice: Beer Recreational Drug Use: Yes (THC USE IN PAST) Drug of Choice: THC USE IN PAST Smoking Status: Former Smoker (> 1 PPD, QUIT) Type Used: Cigarettes Former Smoker, Quit: Jul 09, 2017 2nd Hand Smoke Exposure: No Recent Foreign Travel: No Contact w/Someone Who Travel: No Recent Hopitalizations: No Immunizations Up To Date Tetanus Booster (TDap): Unknown PED Vaccines UTD: Yes Date of Pneumonia Vaccine: Mar 30, 2013 Date of Influenza Vaccine: Mar 30, 2018 Seasonal Allergies Seasonal Allergies: Yes Past Medical History Surgeries: Yes (RIGHT DIALYSIS AV SHUNT/GRAFT-FAILED. LEFT DIALYSIS AV SHUNT/GRAFT PLACED 08/2018; RIGHT CENTRAL LINE FOR DIALYSIS; CARDIAC CATHS --NO INTERVENTION--LAST ONE 08/2018; ) Cardiac, Section, Defibrillator, Dialysis, Hysterectomy, Vascular Surgery Respiratory: Yes (O2 DEPENDENT AT 3-4L/NC; CHRONIC RESPIRATORY FAILURE/HYPOXIA; CHF/FLUID OVERLOAD/PULMONARY EDEMA) Asthma, Pneumonia, Sleep Apnea, COPD Currently Using CPAP: No Currently Using BIPAP: Yes Cardiac: Yes (CHF/PULMONARY EDEMA/FLUID OVERLOAD; CHRONIC CHEST PAIN; MULTIPLE CARDIAC CATHS--NO INTERVENTION--LAST ONE 08/2018; EF 20% --NON-ISCHEMIC CARDIOMYOPATHY; HX OF LEFT HEART THROMBUS) Atrial Fibrillation, Cardiomyopathy, Chronic Edema/Swelling, Coronary Artery Disease, High Cholesterol, Hypertension Neurological: Yes Headaches /Migraines 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 Disorders: Yes (Hysterectomy) 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 ) Renal Failure, Dialysis, UTI-Chronic Gastrointestinal: Yes (HX OF ELEVATED LFT'S) Gastroesophageal Reflux, Liver Disease/Jaundice, Hiatal Hernia Musculoskeletal: Yes (CHRONIC GENERALIZED PAIN COMPLAINTS; CHRONIC GENERALIZED WEAKNESS; FREQUENT FALLS/POOR MOBILITY/POOR COORDINATION) Arthritis Endocrine: Yes (HYPOMAGNESEMIA) Hypothyroidsim HEENT: Yes Cataract Loss of Vision: Denies Hearing Impairment: Denies Cancer: No Psychosocial: Yes Sleep Difficulties, Anxiety, Depression Integumentary: Yes (CHRONIC SORES FROM CONSTANT "PICKING" ) Blood Disorders: Yes (ANEMIA) Adverse Reaction/Blood Tranf: No Family Medical History Cancer 19 FATHER (HODGKINS ) 19 MOTHER (BRAIN TUMOR ) Congenital heart disease 19 MOTHER Congestive heart failure 19 MOTHER Family history: Cardiovascular disease 19 MOTHER G8 SISTER G8 SISTER Family history: Hypertension 19 MOTHER G8 SISTER G8 SISTER Heart disease 19 MOTHER G8 SISTER G8 SISTER History of - respiratory disease 19 MOTHER G8 BROTHER G8 SISTER Heart Disease, Cancer, Hypertension Physical Exam Vital Signs Vital Signs - First Documented 01/21/19 22:20 Temp 97.4 Pulse 90 Resp 22 B/P (MAP) 113/73 (86) Pulse Ox 99 O2 Delivery Nasal Cannula O2 Flow Rate 3.00 Capillary Refill : Height, Weight, BMI Height: 4'9.00" Weight: 120lbs. 0.1oz. 54.596448sx; 29.7 BMI Method:Stated General Appearance: No Apparent Distress, WD/WN, Chronically ill, Other (TALKS IN FULL SENTENCES, DOES NOT APPEAR TO BE IN ANY DISCOMFORT OR DISTRESS) HEENT: PERRL/EOMI, Other (VERY MILD EXOPHTHALMOS AND PERIORBITAL EDEMA) Neck: JVD (MILD) Respiratory: No Accessory Muscle Use, No Respiratory Distress, Decreased Breath Sounds (DIMINISHED IN BASES), Rales (FAINT IN BASES), Wheezing (VERY FAINT EXPIRATORY WHEEZING BILATERALLY) Cardiovascular: Regular Rate, Rhythm, No Edema, Normal Peripheral Pulses, Systolic Murmur (3/6), JVD (VERY MILD), Other (RIGHT CENTRAL DIALYSIS CATHETER IN PLACE; DEFIBRILLATOR IN PLACE ON LEFT) Gastrointestinal: Non Tender, Soft Back: No CVA Tenderness Extremity: Normal Capillary Refill, Normal Range of Motion, Non Tender, No Calf Tenderness, No Pedal Edema, Other (MULTIPLE BRUISES TO LEFT UPPER ARM NEAR SITE OF AV/DIALYSIS GRAFT. 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 Norm as Tested, Other (SOMEWHAT FLAT AFFECT) Skin: Normal Color, Warm/Dry, Other (EXTENSIVE SORES/SCABS/SCARS TO BILATERAL ARMS AND SHOULDERS, FROM PT CHRONIC PICKING) Focused Exam Lactate Level 01/21/19 23:03: Lactic Acid Level 1.45 Lactic Acid Level Laboratory Tests Test 01/21/19 23:03 Lactic Acid Level 1.45 MMOL/L (0.50-2.00) Procedures/Interventions Date of ETT Placement: Aug 20, 2017 Time of ETT Placement: 628 Progress/Results/Core Measures Suspected Sepsis SIRS Temperature: Pulse: Respiratory Rate: Laboratory Tests 01/21/19 23:03: White Blood Count 6.0 Blood Pressure / Mean: 01/21/19 23:03: Lactic Acid Level 1.45 Laboratory Tests 01/21/19 23:03: Creatinine 2.82H, INR Comment 1.2, Platelet Count 261, Total Bilirubin 0.6 Results/Orders Lab Results Laboratory Tests Test 01/21/19 23:03 01/21/19 23:10 Range/Units White Blood Count 6.0 4.3-11.0 10^3/uL Red Blood Count 3.60 L 4.35-5.85 10^6/uL Hemoglobin 11.2 L 11.5-16.0 G/DL Hematocrit 37 35-52 % Mean Corpuscular Volume 102 H 80-99 FL Mean Corpuscular Hemoglobin 31 25-34 PG Mean Corpuscular Hemoglobin Concent 30 L 32-36 G/DL Red Cell Distribution Width 18.7 H 10.0-14.5 % Platelet Count 261 130-400 10^3/uL Mean Platelet Volume 11.4 H 7.4-10.4 FL Neutrophils (%) (Auto) 74 42-75 % Lymphocytes (%) (Auto) 13 12-44 % Monocytes (%) (Auto) 11 0-12 % Eosinophils (%) (Auto) 1 0-10 % Basophils (%) (Auto) 1 0-10 % Neutrophils # (Auto) 4.5 1.8-7.8 X 10^3 Lymphocytes # (Auto) 0.8 L 1.0-4.0 X 10^3 Monocytes # (Auto) 0.7 0.0-1.0 X 10^3 Eosinophils # (Auto) 0.1 0.0-0.3 10^3/uL Basophils # (Auto) 0.1 0.0-0.1 10^3/uL Prothrombin Time 15.2 H 12.2-14.7 SEC INR Comment 1.2 0.8-1.4 Activated Partial Thromboplast Time 36 H 24-35 SEC Sodium Level 129 L 135-145 MMOL/L Potassium Level 5.0 3.6-5.0 MMOL/L Chloride Level 99 98-107 MMOL/L Carbon Dioxide Level 21 21-32 MMOL/L Anion Gap 9 5-14 MMOL/L Blood Urea Nitrogen 7 7-18 MG/DL Creatinine 2.82 H 0.60-1.30 MG/DL Estimat Glomerular Filtration Rate 17 BUN/Creatinine Ratio 2 Glucose Level 89 70-105 MG/DL Lactic Acid Level 1.45 0.50-2.00 MMOL/L Calcium Level 9.2 8.5-10.1 MG/DL Corrected Calcium 10.0 8.5-10.1 MG/DL Magnesium Level 1.6 L 1.8-2.4 MG/DL Total Bilirubin 0.6 0.1-1.0 MG/DL Aspartate Amino Transf (AST/SGOT) 16 5-34 U/L Alanine Aminotransferase (ALT/SGPT) 7 0-55 U/L Alkaline Phosphatase 185 H 40-136 U/L Troponin I < 0.028 <0.028 NG/ML Total Protein 6.6 6.4-8.2 GM/DL Albumin 3.0 L 3.2-4.5 GM/DL Amylase Level 31 25-125 U/L Lipase 10 8-78 U/L Urine Color KARLEY H Urine Clarity CLEAR Urine pH 5 5-9 Urine Specific [place] 1.020 1.016-1.022 Urine Protein 3+ H NEGATIVE Urine Glucose (UA) NEGATIVE NEGATIVE Urine Ketones 1+ H NEGATIVE Urine Nitrite POSITIVE H NEGATIVE Urine Bilirubin 2+ H NEGATIVE Urine Urobilinogen 4 H NORMAL MG/DL Urine Leukocyte Esterase 3+ H NEGATIVE Urine RBC (Auto) 5+ H NEGATIVE Urine RBC 5-10 H /HPF Urine WBC 2-5 /HPF Urine Squamous Epithelial Cells 2-5 /HPF Urine Crystals NONE /LPF Urine Bacteria LARGE H /HPF Urine Casts NONE /LPF Urine Mucus SMALL H /LPF Urine Culture Indicated YES My Orders Orders - YANE WAKEFIELD DO Ed Iv/Invasive Line Start (01/21/19 22:35) Ekg Tracing (01/21/19 22:35) Monitor-Rhythm Ecg Trace Only (01/21/19 22:35) Straight Cath For Spec.-Adult (01/21/19 22:35) Chest 1 View, Ap/Pa Only (01/21/19 22:35) Amylase (01/21/19 22:35) Cbc With Automated Diff (01/21/19 22:35) Comprehensive Metabolic Panel (01/21/19 22:35) Lactic Acid Analyzer (01/21/19 22:35) Lipase (01/21/19 22:35) Magnesium (01/21/19 22:35) Protime With Inr (01/21/19 22:35) Partial Thromboplastin Time (01/21/19 22:35) Ua Culture If Indicated (01/21/19 22:35) Blood Culture (01/21/19 22:35) Troponin I (01/21/19 22:35) Albuterol/Ipra Inhalation Soln (Duoneb I (01/21/19 23:45) Dexamethasone Injection (Decadron Inject (01/21/19 23:45) Rt Request For Service (01/21/19 23:33) Svn Small Volume Nebulizer (01/21/19 23:33) Urine Culture (01/21/19 23:10) Methylprednisolone Sod Succ (Solu-Medrol (01/22/19 00:15) Furosemide Injection (Lasix Injection) (01/22/19 00:15) Ceftriaxone For Iv Use (Rocephin For I (01/22/19 00:15) Magnesium Oxide Tablet (Mag Ox Tablet) (01/22/19 00:15) Medications Given in ED Current Medications Medications Dose Ordered Sig/Cade Route Start Time Stop Time Status Last Admin Dose Admin Albuterol/ Ipratropium 3 ml ONCE ONCE INH 01/21/19 23:45 01/21/19 23:46 DC 01/21/19 23:52 3 ML Ceftriaxone Sodium 1000 mg/ Sterile Water 10 ml @ 200 mls/hr ONCE ONCE IV 01/22/19 00:15 01/22/19 00:17 DC 01/22/19 00:30 200 MLS/HR Dexamethasone Sodium Phosphate 20 mg ONCE ONCE IH 01/21/19 23:45 01/21/19 23:46 DC 01/21/19 23:52 20 MG Furosemide 40 mg ONCE ONCE IVP 01/22/19 00:15 01/22/19 00:16 DC 01/22/19 00:32 40 MG Magnesium Oxide 1,200 mg ONCE ONCE PO 01/22/19 00:15 01/22/19 00:16 DC 01/22/19 00:27 1,200 MG Methylprednisolone Sodium Succinate 125 mg ONCE ONCE IVP 01/22/19 00:15 01/22/19 00:16 DC 01/22/19 00:27 125 MG Vital Signs/I&O 01/21/19 01/21/19 01/21/19 22:20 23:36 23:54 Temp 97.4 97.1 Pulse 90 90 Resp 22 22 B/P (MAP) 113/73 (86) 113/73 Pulse Ox 99 99 99 O2 Delivery Nasal Cannula Nasal Cannula O2 Flow Rate 3.00 3.00 3.00 Capillary Refill : Progress Note : Progress Note INCREASED AERATION AND WHEEZING RESOLVED WITH DUO NEB TREATMENT--PT STATES IT HELPED SOME PT SLEEPING/RESTING QUIETLY, WEARING HER SLEEPING EYE MASK DURING REMAINDER OF THE ER STAY-EASILY AWAKENS O2 SATS REMAINED IN HIGH 90'S TO 100% ON 3L/NC FOR ENTIRE ER STAY NO DYSPNEA AT ANY TIME DURING ER STAY NO COUGH NOTED NO C/O NAUSEA AND NO VOMITING OR DIARRHEA OR C/O ABDOMINAL PAIN AT ANY TIME DURING REMAINDER OF ER STAY PT HAD NO COMPLAINTS FOR ENTIRE ER STAY PT FEELS COMFORTABLE GOING HOME, AND IS SCHEDULED TO HAVE DIALYSIS FIRST THING IN THE MORNING ECG Initial ECG Impression Date: Jan 21, 2019 Initial ECG Impression Time: 22:39 Initial ECG Rate: 88 Initial ECG Rhythm: Normal Sinus (lbbb) Initial ECG Comparisson: Unchanged Diagnostic Imaging Comments CXR--STABLE CARDIOMEGALY, MILD VASCULAR CONGESTION--SIMILAR TO PREVIOUS--PENDING RADIOLOGIST REVIEW Reviewed: Reviewed by Me Departure Impression Primary Impression: acute COPD exacerbation Additional Impressions: ESRD on dialysis MILD CHF/FLUID OVERLOAD UTI (urinary tract infection) REPORTED NAUSEA/VOMITING/DIARRHEA Hyponatremia Hypomagnesemia Disposition: 01 HOME, SELF-CARE Condition: Improved Departure-Patient Inst. Referrals: TEAGAN VERNON MD (PCP/Family) Primary Care Physician Patient Instructions: COPD Including Emphysema (DC), [id number], Heart Failure, Adult (DC), Low Magnesium Level (DC), Urinary Tract Infection, Adult (DC) Add. Discharge Instructions: KEEP YOUR APPOINTMENT IN THE MORNING FOR DIALYSIS CONTINUE ALL OF YOUR REGULAR MEDICATIONS PRESCRIBED MAY DO NEBULIZER TREATMENTS EVERY [address] UP WITH [address]. VERNON SCHEDULED RETURN TO ER IF WORSE All discharge instructions reviewed with patient and/or family. Voiced understanding. Scripts Nitrofurantoin Monohyd/M-Cryst (Macrobid 100 mg Capsule) 100 Mg Capsule 100 MG PO BID, #20 CAP Prov: YANE WAKEFIELD DO 01/22/19 YANE WAKEFIELD DO Jan 21, 2019 22:43
[2019-01-21 23:19] LABS: BASOPHILS # (AUTO) 0.1 10^3/uL (0.0-0.1); BASOPHILS % (AUTO) 1 % (0-10); EOSINOPHILS # (AUTO) 0.1 10^3/uL (0.0-0.3); EOSINOPHILS % (AUTO) 1 % (0-10); HEMATOCRIT 37 % (35-52); HEMOGLOBIN 11.2 G/DL (11.5-16.0); LYMPHOCYTES # (AUTO) 0.8 X 10^3 (1.0-4.0); LYMPHOCYTES % (AUTO) 13 % (12-44); MEAN CORPUSCULAR HEMOGLOBIN 31 PG (25-34); MEAN CORPUSCULAR HGB CONC 30 G/DL (32-36); MEAN CORPUSCULAR VOLUME 102 FL (80-99); MEAN PLATELET VOLUME 11.4 FL (7.4-10.4); MONOCYTES # (AUTO) 0.7 X 10^3 (0.0-1.0); MONOCYTES % (AUTO) 11 % (0-12); NEUTROPHILS # (AUTO) 4.5 X 10^3 (1.8-7.8); NEUTROPHILS % (AUTO) 74 % (42-75); PLATELET COUNT 261 10^3/uL (130-400); RED CELL DISTRIBUTION WIDTH 18.7 % (10.0-14.5)
[2019-01-21 23:36] LABS: INR 1.2 (0.8-1.4); PROTHROMBIN TIME PATIENT 15.2 SEC (12.2-14.7)
[2019-01-21 23:37] LABS: CLARITY,URINE CLEAR; COLOR,URINE AMBER; GLUCOSE, URINE (UA) NEGATIVE (NEGATIVE); KETONES,URINE 1+ (NEGATIVE); LEUKOCYTE ESTERASE ,URINE 3+ (NEGATIVE); NITRITE,URINE POSITIVE (NEGATIVE); PH,URINE 5 (5-9); PROTEIN,URINE 3+ (NEGATIVE); UROBILINOGEN,URINE 4 MG/DL (NORMAL)
[2019-01-21 23:45] LABS: ALANINE AMINOTRANSFERASE 7 U/L (0-55); ALKALINE PHOSPHATASE 185 U/L (40-136); AMYLASE 31 U/L (25-125); BILIRUBIN,TOTAL 0.6 MG/DL (0.1-1.0); BUN/CREATININE RATIO 2; CALCIUM 9.2 MG/DL (8.5-10.1); CARBON DIOXIDE 21 MMOL/L (21-32); CHLORIDE 99 MMOL/L (98-107); CREATININE SERUM 2.82 MG/DL (0.60-1.30); GFR ESTIMATED 17; GLUCOSE 89 MG/DL (70-105); LIPASE 10 U/L (8-78); MAGNESIUM 1.6 MG/DL (1.8-2.4); SODIUM 129 MMOL/L (135-145); TOTAL PROTEIN 6.6 GM/DL (6.4-8.2)
[2019-01-21] MEDS ORDERED: RT-ALBUTEROL/IPRATROPIUM 3 ML (DUONEB) VIAL INH ONE (23:45)
[2019-01-21] MEDS ORDERED: DEXAMETHASONE 4 MG/ML SDV (DECADRON) IH ONE (23:45)
[2019-01-21 23:50] LABS: BACTERIA,URINE LARGE /HPF; BILIRUBIN,URINE 2+ (NEGATIVE)
[2019-01-22] MEDS ORDERED: cefTRIAXone FOR IV USE 1,000 MG in WATER (STERILE) FOR INJECTION 10 ML IV ONE (00:15)
[2019-01-22] MEDS ORDERED: MAGNESIUM OXIDE (MAG-OX)400 MG TAB PO ONE (00:15)
[2019-01-22] MEDS ORDERED: FUROSEMIDE 40 MG/4 ML INJ (LASIX) IVP ONE (00:15)
[2019-01-22] MEDS ORDERED: methylPREDNISolone 125 MG (Solu-MEDROL) VIAL IVP ONE (00:15)
[2019-01-22] MEDS ORDERED: NITR-65 PO (00:17)
[2019-01-22 01:48] VITALS: BP 105/78
--- NOTE | 2019-01-22 05:49 | Diagnostic Imaging Report ---
INDICATION: Shortness of air. COMPARISON: 01/04/2019 FINDINGS: Single frontal radiographic view of the chest was obtained and demonstrates moderate cardiomegaly and moderate pulmonary vascular congestion. There is also diffuse prominence of pulmonary interstitium. Marcy B lines are noted. There is complete obscuration of left hemidiaphragm likely on the basis of effusion with atelectasis. Trace effusion is also suspected in the right base. There is no pneumothorax on either side. Left-sided AICD is noted. Osseous structures show no gross acute abnormalities. Right internal jugular dialysis catheter is also present. IMPRESSION: 1. Cardiomegaly with sequela of CHF. 2. Probable bibasilar pleural effusions, left greater than right. Dictated by: Dictated on workstation # [id number]
== END 2019-01-22 01:51 | disposition home or self-care (01) ==
LOC: EDUNIT# 22:15 → ER 22:16
DX: I13.2 Hypertensive heart and chronic kidney disease with heart failure and with stage 5 chronic kidney disease, or end stage renal disease (principal); I50.9 Heart failure, unspecified; N18.6 End stage renal disease; J44.1 Chronic obstructive pulmonary disease with (acute) exacerbation; N39.0 Urinary tract infection, site not specified; E87.1 Hypo-osmolality and hyponatremia; E83.42 Hypomagnesemia; J96.11 Chronic respiratory failure with hypoxia; J45.909 Unspecified asthma, uncomplicated; G47.30 Sleep apnea, unspecified; I48.91 Unspecified atrial fibrillation; I42.9 Cardiomyopathy, unspecified; I25.10 Atherosclerotic heart disease of native coronary artery without angina pectoris; E78.00 Pure hypercholesterolemia, unspecified; G43.909 Migraine, unspecified, not intractable, without status migrainosus; K21.9 Gastro-esophageal reflux disease without esophagitis; E03.9 Hypothyroidism, unspecified; F32.9 Major depressive disorder, single episode, unspecified; F41.9 Anxiety disorder, unspecified; Z99.2 Dependence on renal dialysis; Z95.810 Presence of automatic (implantable) cardiac defibrillator; Z90.710 Acquired absence of both cervix and uterus; Z99.81 Dependence on supplemental oxygen; Z87.01 Personal history of pneumonia (recurrent); Z82.49 Family history of ischemic heart disease and other diseases of the circulatory system
CPT/HCPCS: 36415; 51701; 71045; 80053; 81000; 82150; 83605; 83690; 83735; 84484; 85025; 85610; 85730; 87040; 87088; 93005; 93041; 94640; 96365; 96375

== ENCOUNTER 2019-04-12 06:55 | Emergency (ER) | payer MEDICARE, MEDICAID ==
[~2019-04-12] VITALS: Ht 144 cm; Wt 52.0 kg
[~2019-04-12 06:55] MED LIST changes: -OMEP20CA12 PO; +OMEP20CA13 PO
[2019-04-12 07:28] LABS: BASOPHILS % (AUTO) 1 % (0-10); EOSINOPHILS # (AUTO) 0.1 10^3/uL (0.0-0.3); EOSINOPHILS % (AUTO) 1 % (0-10); HEMATOCRIT 35 % (35-52); HEMOGLOBIN 10.4 G/DL (11.5-16.0); LYMPHOCYTES # (AUTO) 0.5 X 10^3 (1.0-4.0); LYMPHOCYTES % (AUTO) 9 % (12-44); MEAN CORPUSCULAR HEMOGLOBIN 30 PG (25-34); MEAN CORPUSCULAR HGB CONC 30 G/DL (32-36); MEAN CORPUSCULAR VOLUME 100 FL (80-99); MEAN PLATELET VOLUME 11.4 FL (7.4-10.4); MONOCYTES # (AUTO) 0.5 X 10^3 (0.0-1.0); MONOCYTES % (AUTO) 9 % (0-12); NEUTROPHILS # (AUTO) 4.7 X 10^3 (1.8-7.8); NEUTROPHILS % (AUTO) 81 % (42-75); PLATELET COUNT 256 10^3/uL (130-400); RED CELL DISTRIBUTION WIDTH 18.7 % (10.0-14.5); WHITE BLOOD COUNT 5.8 10^3/uL (4.3-11.0)
[2019-04-12 07:49] LABS: ALANINE AMINOTRANSFERASE 15 U/L (0-55); ALBUMIN 2.8 GM/DL (3.2-4.5); ALKALINE PHOSPHATASE 276 U/L (40-136); BILIRUBIN,TOTAL 1.4 MG/DL (0.1-1.0); BUN/CREATININE RATIO 12; CALCIUM 8.9 MG/DL (8.5-10.1); CARBON DIOXIDE 26 MMOL/L (21-32); CHLORIDE 95 MMOL/L (98-107); CREATININE SERUM 3.68 MG/DL (0.60-1.30); GFR ESTIMATED 13; GLUCOSE 81 MG/DL (70-105); SODIUM 131 MMOL/L (135-145); TOTAL PROTEIN 6.9 GM/DL (6.4-8.2)
[2019-04-12 07:56] LABS: POTASSIUM 5.2 MMOL/L (3.6-5.0)
--- NOTE | 2019-04-12 08:42 | Diagnostic Imaging Report ---
INDICATION: Weakness. COMPARISON: 01/21/2019. TECHNIQUE: A single radiograph of the chest is dated 04/12/2019. FINDINGS: The pacer device is again identified with the battery pack overlying the left chest. The previously noted dialysis catheter is no longer visualized. The cardiac silhouette is enlarged although stable. Mild central pulmonary vascular congestion is noted. The calcified granuloma involving the right lung are stable. A small left basilar pleural-parenchymal opacity is present. There is a trace right pleural effusion. No pneumothorax. No acute osseous abnormality. IMPRESSION: Cardiomegaly with mild central pulmonary vascular congestion. Small left basilar pleural-parenchymal opacity, related to a combination of pleural fluid with adjacent atelectasis and/or infiltrate. Dictated by: Dictated on workstation # [id number]
--- NOTE | 2019-04-12 09:25 | ED General ---
General Chief Complaint: Dizziness/Syncope Stated Complaint: GENERALIZED WEAKNESS Nursing Triage Note: PT TO [facility] WITH CC OF WEAKNESS FOR 3 DAYS, NEEDS DIALYSIS TODAY. Nursing Sepsis Screen: No Definite Risk Source of Information: Patient Exam Limitations: No Limitations History of Present Illness Date Seen by Provider: Apr 12, 2019 Time Seen by Provider: 07:22 Initial Comments Here with report of weakness and not feeling well for the last 3 days. She is due for dialysis today. Denies fever or chills. Denies nausea or vomiting. Is on long-term dialysis. She reports last dialysis was on Friday and had 3.3 L removed. She is concerned about needing further assistance or greater assistance than she is able to get home and or we'll appreciate possibility for rehabilitation stay if capable. Timing/Duration: 3-4 Days Severity: Moderate Associated Systoms: No Chest Pain, No Cough, No Fever/Chills; Malaise; No Seizure; Shortness of Air, Weakness Allergies and Home Medications Allergies Coded Allergies: propoxyphene napsylate (Unverified Allergy, Severe, SEVERE NAUSEA AND VOMITING , 04/03/13) meperidine (Unverified Allergy, Unknown, 12/19/14) venom-honey bee (Verified Allergy, Unknown, 09/19/13) lisinopril (Verified Adverse Reaction, Unknown, PT STATES "BOTTOMS OUT" HER BLOOD PRESSURE, 03/12/15) Patient states that it "bottoms out" her blood pressure. She will refuse to take this medication and reports it as an allergy. Home Medications Acetaminophen 500 Mg Tablet, 1,000 MG PO Q6H PRN for PAIN-MILD, (Reported) Albuterol Sulfate 1 Puff Puff, 2 PUFF IH Q6H PRN for SHORTNESS OF BREATH, (Reported) Amiodarone HCl 200 Mg Tablet, 200 MG PO DAILY, (Reported) Bisacodyl 5 Mg Tablet.dr, 5 MG PO DAILY PRN for CONSTIPATION-4TH LINE, (Reported) Carvedilol 6.25 Mg Tablet, 6.25 MG PO BID, (Reported) Cephalexin 500 Mg Capsule, 500 MG PO BID, (Reported) 2 DAY SUPPLY START DATE 09-03-18 EVENING DOSE AND END DATE 09-05-18 AM DOSE Docusate Sodium 100 Mg Tablet, 100 MG PO DAILY PRN for CONSTIPATION-1ST LINE, (Reported) Ipratropium/Albuterol Sulfate 3 Ml Ampul.neb, 3 ML IH Q4H PRN for SHORTNESS OF BREATH, (Reported) Isosorbide Dinitrate 30 Mg Tablet, 15 MG PO BID, (Reported) TAKES 1/2 (30MG) TABLET Levothyroxine Sodium 25 Mcg Tablet, 25 MCG PO DAILY, (Reported) Loperamide HCl 2 Mg Capsule, 2 MG PO Q6H PRN for DIARRHEA, (Reported) Lorazepam 0.5 Mg Tablet, 0.5 MG PO HS, (Reported) Mag Hydrox/Al Hydrox/Simeth 30 Ml Oral.susp, 30 ML PO Q4H PRN for INDIGESTION, (Reported) Midodrine HCl 10 Mg Tablet, 10 MG PO DAILY, (Reported) Multivitamins-Min/FA/Ginkgo 1 Each Tablet, 1 TAB PO DAILY, (Reported) Nitrofurantoin Monohyd/M-Cryst 100 Mg Capsule, 100 MG PO BID Prescribed by: YANE WAKEFIELD on 01/22/19 0017 Ondansetron HCl 4 Mg Tablet, 4 MG PO Q6H PRN for NAUSEA/VOMITING-1ST LINE, (Reported) Oxycodone HCl 5 Mg Tablet, 5 MG PO Q6H PRN for PAIN-SEVERE, (Reported) Polyethylene Glycol 3350 17 Gm Powd.pack, 17 GM PO Q8H PRN for CONSTIPATION-2ND LINE, (Reported) Sertraline HCl 100 Mg Tablet, 100 MG PO HS, (Reported) Patient Home Medication List Home Medication List Reviewed: Yes Review of Systems Review of Systems Constitutional: see HPI; No chills, No fever EENTM: No mouth pain, No throat pain Respiratory: dyspnea on exertion; No wheezing Cardiovascular: edema; No palpitations Gastrointestinal: No abdominal pain, No nausea, No vomiting Genitourinary: no symptoms reported : No Musculoskeletal: No back pain, No joint pain; muscle weakness Skin: change in color; No rash Psychiatric/Neurological: Denies Headache; Weakness All Other Systems Reviewed Negative Unless Noted: Yes Past Friqatx-Mdjhcb-Nhucdo Hx Past Med/Social Hx: Reviewed Nursing Past Med/Soc Hx Patient Social History Alcohol Use: Denies Use Number of Drinks Today: AA Alcohol Beverage of Choice: Beer Recreational Drug Use: Yes (SEE ABOVE) Drug of Choice: THC USE IN PAST Smoking Status: Former Smoker Type Used: Cigarettes Former Smoker, Quit: Jul 09, 2017 2nd Hand Smoke Exposure: No Recent Foreign Travel: No Contact w/Someone Who Travel: No Recent Infectious Disease Expo: No Recent Hopitalizations: No Physical Abuse: No Sexual Abuse: No Mistreated: No Fear: No Immunizations Up To Date Tetanus Booster (TDap): Unknown PED Vaccines UTD: Yes Date of Pneumonia Vaccine: Mar 30, 2013 Date of Influenza Vaccine: Mar 30, 2018 Seasonal Allergies Seasonal Allergies: Yes Past Medical History Surgeries: Yes Cardiac, Section, Defibrillator, Dialysis, Hysterectomy, Vascular Surgery Respiratory: Yes Asthma, Pneumonia, Sleep Apnea, COPD Currently Using CPAP: No Currently Using BIPAP: Yes Cardiac: Yes Atrial Fibrillation, Cardiomyopathy, Chronic Edema/Swelling, Coronary Artery Disease, High Cholesterol, Hypertension Neurological: Yes Headaches /Migraines 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 Disorders: Yes (Hysterectomy) 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 Disorders: 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 [employer]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 Sexually Transmitted Disease: No HIV/AIDS: No Genitourinary: Yes Renal Failure, Dialysis, UTI-Chronic Gastrointestinal: Yes (HX OF ELEVATED LFT'S) Gastroesophageal Reflux, Liver Disease/Jaundice, Hiatal Hernia Musculoskeletal: Yes Arthritis Endocrine: Yes (HYPOMAGNESEMIA) Hypothyroidsim HEENT: Yes Cataract Loss of Vision: Denies Hearing Impairment: Denies Cancer: No Bladder Psychosocial: Yes Sleep Difficulties, Anxiety, Depression Integumentary: Yes (CHRONIC SORES FROM CONSTANT "PICKING" ) Recent Skin Changes Blood Disorders: Yes (ANEMIA) Adverse Reaction/Blood Tranf: No Family Medical History Reviewed Nursing Family Hx Cancer 19 FATHER (HODGKINS ) 19 MOTHER (BRAIN TUMOR ) Congenital heart disease 19 MOTHER Congestive heart failure 19 MOTHER Family history: Cardiovascular disease 19 MOTHER G8 SISTER G8 SISTER Family history: Hypertension 19 MOTHER G8 SISTER G8 SISTER Heart disease 19 MOTHER G8 SISTER G8 SISTER History of - respiratory disease 19 MOTHER G8 BROTHER G8 SISTER Heart Disease, Cancer, Hypertension Physical Exam Vital Signs Vital Signs - First Documented 04/12/19 04/12/19 07:10 07:15 Temp 36.2 Pulse 84 Resp 20 B/P (MAP) 101/66 (78) Pulse Ox 99 O2 Delivery Nasal Cannula O2 Flow Rate 2.00 Capillary Refill : Less Than 3 Seconds Height, Weight, BMI Height: 4'9.00" Weight: 115lbs. 6.0oz. [id number]; 25.00 BMI Method:Actual General Appearance: No Apparent Distress, WD/WN HEENT: PERRL/EOMI, Pharynx Normal Neck: Non Tender, Supple Respiratory: Crackles; No Wheezing Cardiovascular: Regular Rate, Rhythm, No Murmur Gastrointestinal: Non Tender, Soft Back: Normal Inspection, No CVA Tenderness, No Vertebral Tenderness Extremity: Normal Range of Motion, No Calf Tenderness, Pedal Edema (2+ to knees bilateral) Neurologic/Psychiatric: Alert, Oriented x3 Skin: Normal Color, Warm/Dry Focused Exam Lactate Level 04/12/19 09:30: Lactic Acid Level 0.70 Lactic Acid Level Laboratory Tests Test 04/12/19 09:30 Lactic Acid Level 0.70 MMOL/L (0.50-2.00) Procedures/Interventions Date of ETT Placement: Aug 20, 2017 Time of ETT Placement: 628 Progress/Results/Core Measures Suspected Sepsis Recent Fever Within 48 Hours: No Infection Criteria Present: None New/Unexplained Altered Menta: No Sepsis Screen: No Definite Risk SIRS Temperature: Pulse: 84 Respiratory Rate: 20 Laboratory Tests 04/12/19 07:15: White Blood Count 5.8 Blood Pressure 101 /66 Mean: 78 04/12/19 09:30: Lactic Acid Level 0.70 Laboratory Tests 04/12/19 07:15: Creatinine 3.68H, Platelet Count 256, Total Bilirubin 1.4H Results/Orders Lab Results Laboratory Tests Test 04/12/19 07:15 04/12/19 09:30 Range/Units White Blood Count 5.8 4.3-11.0 10^3/uL Red Blood Count 3.47 L 4.35-5.85 10^6/uL Hemoglobin 10.4 L 11.5-16.0 G/DL Hematocrit 35 35-52 % Mean Corpuscular Volume 100 H 80-99 FL Mean Corpuscular Hemoglobin 30 25-34 PG Mean Corpuscular Hemoglobin Concent 30 L 32-36 G/DL Red Cell Distribution Width 18.7 H 10.0-14.5 % Platelet Count 256 130-400 10^3/uL Mean Platelet Volume 11.4 H 7.4-10.4 FL Neutrophils (%) (Auto) 81 H 42-75 % Lymphocytes (%) (Auto) 9 L 12-44 % Monocytes (%) (Auto) 9 0-12 % Eosinophils (%) (Auto) 1 0-10 % Basophils (%) (Auto) 1 0-10 % Neutrophils # (Auto) 4.7 1.8-7.8 X 10^3 Lymphocytes # (Auto) 0.5 L 1.0-4.0 X 10^3 Monocytes # (Auto) 0.5 0.0-1.0 X 10^3 Eosinophils # (Auto) 0.1 0.0-0.3 10^3/uL Basophils # (Auto) 0.0 0.0-0.1 10^3/uL Sodium Level 131 L 135-145 MMOL/L Potassium Level 5.2 H 3.6-5.0 MMOL/L Chloride Level 95 L 98-107 MMOL/L Carbon Dioxide Level 26 21-32 MMOL/L Anion Gap 10 5-14 MMOL/L Blood Urea Nitrogen 44 H 7-18 MG/DL Creatinine 3.68 H 0.60-1.30 MG/DL Estimat Glomerular Filtration Rate 13 BUN/Creatinine Ratio 12 Glucose Level 81 70-105 MG/DL Calcium Level 8.9 8.5-10.1 MG/DL Corrected Calcium 9.9 8.5-10.1 MG/DL Total Bilirubin 1.4 H 0.1-1.0 MG/DL Aspartate Amino Transf (AST/SGOT) 21 5-34 U/L Alanine Aminotransferase (ALT/SGPT) 15 0-55 U/L Alkaline Phosphatase 276 H 40-136 U/L Troponin I < 0.028 <0.028 NG/ML C-Reactive Protein High Sensitivity 6.10 H 0.00-0.50 MG/DL B-Type Natriuretic Peptide 38534.8 H <100.0 PG/ML Total Protein 6.9 6.4-8.2 GM/DL Albumin 2.8 L 3.2-4.5 GM/DL Lactic Acid Level 0.70 0.50-2.00 MMOL/L My Orders Orders - JOSHUA CHOI MD Cbc With Automated Diff (04/12/19:22) Comprehensive Metabolic Panel (04/12/19 07:22) Hs C Reactive Protein (04/12/19:) Troponin I (04/12/19 07:22) Ed Iv/Invasive Line Start (04/12/19:22) Ekg Tracing (04/12/19:22) O2 (10/14/19 07:22) Monitor-Rhythm Ecg Trace Only (04/12/19 07:22) Chest 1 View, Ap/Pa Only (04/12/19 07:22) BNP (04/12/19 07:24) Lactic Acid Analyzer (04/12/19 09:30) Blood Culture (04/12/19 09:30) Cefepime Injection (Maxipime Injection) (04/12/19 09:45) Ua Culture If Indicated (04/12/19 09:56) Vital Signs/I&O 04/12/19 04/12/19 07:10 07:15 Temp 36.2 Pulse 84 Resp 20 B/P (MAP) 101/66 (78) Pulse Ox 99 100 O2 Delivery Nasal Cannula Nasal Cannula O2 Flow Rate 2.00 2.00 Capillary Refill : Less Than 3 Seconds Blood Pressure Mean: 78 Progress Note : Progress Note Seen and evaluated. IV, labs, chest x-ray and EKG ordered. Suspect volume overload and she is due to dialysis today. Monitor patient. 928: Blood cultures and lactic acid ordered due to opacity noted and concerns for pneumonia. Patient will require transfer to Center capable of providing dialysis. Patient usually goes to [facility] and we will begin that process now. 1035: Blood cultures and lactic acid have been drawn. Cefepime 1 g IV initiated due to history of COPD. Patient agrees to transfer. I have made contact with [facility] for transfer. 1042: I did speak with Dr. Bedolla, who has graciously accepted the patient in transfer. Pending room assignment and then EMS. Patient agrees to plan. ECG Initial ECG Impression Date: Apr 12, 2019 Initial ECG Impression Time: 07:29 Initial ECG Rate: 78 Comment Sinus rhythm with first-degree AV block. Left bundle branch block with left axis deviation. No evidence of ST elevation NC. Similar to previous of 01/21/19. Interpreted by me. Diagnostic Imaging Diagonstic Imaging: Xray Plain Films/CT/US/NM/MRI: chest Comments [facility] [place], [place] NAME: WYATT KULKARNI [facility] REC#: [id number] PT STATUS: REG ER : 1960 PHYSICIAN: JOSHUA CHOI MD ADMIT DATE: 04/12/19/ER Draft Date of Exam:04/12/19 CHEST 1 VIEW, AP/PA ONLY INDICATION: Weakness. COMPARISON: 01/21/2019. TECHNIQUE: A single radiograph of the chest is dated 04/12/2019. FINDINGS: The pacer device is again identified with the battery pack overlying the left chest. The previously noted dialysis catheter is no longer visualized. The cardiac silhouette is enlarged although stable. Mild central pulmonary vascular congestion is noted. The calcified granuloma involving the right lung are stable. A small left basilar pleural-parenchymal opacity is present. There is a trace right pleural effusion. No pneumothorax. No acute osseous abnormality. IMPRESSION: Cardiomegaly with mild central pulmonary vascular congestion. Small left basilar pleural-parenchymal opacity, related to a combination of pleural fluid with adjacent atelectasis and/or infiltrate. Dictated on workstation # [id number] Dict: 04/12/19 0838 Trans: 04/12/19 0842 [id number] Interpreted by: GLORIA MEEKS MD Electronically signed by: Departure Impression Primary Impression: Left lower lobe pneumonia Qualified Codes: J18.1 - Lobar pneumonia, unspecified organism Additional Impressions: Volume overload Qualified Codes: E87.70 - Fluid overload, unspecified ESRD (end stage renal disease) on dialysis Disposition: XF SHT-TRM HOSP Condition: Stable Transfer Time Spoke to Accepting Phy: 10:42 Transfer Facility: [place], [place], Dr. Bedolla accepting Method of Transfer: EMS Departure-Patient Inst. Referrals: TEAGAN VERNON MD (PCP/Family) Primary Care Physician JOSHUA CHOI MD Apr 12, 2019 09:25
[2019-04-12] MEDS ORDERED: CEFEPIME INJECTION 1,000 MG in WATER (STERILE) FOR INJECTION 10 ML IV ONE (09:45)
[2019-04-12 10:30] LABS: BILIRUBIN,URINE 1+ (NEGATIVE); CLARITY,URINE CLEAR; COLOR,URINE YELLOW; GLUCOSE, URINE (UA) NEGATIVE (NEGATIVE); KETONES,URINE 1+ (NEGATIVE); LEUKOCYTE ESTERASE ,URINE 3+ (NEGATIVE); NITRITE,URINE NEGATIVE (NEGATIVE); PH,URINE 5 (5-9); PROTEIN,URINE 3+ (NEGATIVE); UROBILINOGEN,URINE 4 MG/DL (NORMAL)
[2019-04-12 10:49] LABS: RBC,URINE 25-50 /HPF
[2019-04-12 10:50] LABS: BACTERIA,URINE FEW /HPF
[2019-04-12 14:26] VITALS: BP 103/64
== END 2019-04-12 14:26 | disposition short-term general hospital (02) ==
LOC: EDUNIT# 06:55 → ER 06:57
DX: J18.1 Lobar pneumonia, unspecified organism (principal); E87.70 Fluid overload, unspecified; I12.0 Hypertensive chronic kidney disease with stage 5 chronic kidney disease or end stage renal disease; N18.6 End stage renal disease; J44.9 Chronic obstructive pulmonary disease, unspecified; I48.91 Unspecified atrial fibrillation; I25.10 Atherosclerotic heart disease of native coronary artery without angina pectoris; E78.00 Pure hypercholesterolemia, unspecified; G43.909 Migraine, unspecified, not intractable, without status migrainosus; F41.9 Anxiety disorder, unspecified; F32.9 Major depressive disorder, single episode, unspecified; K21.9 Gastro-esophageal reflux disease without esophagitis; E03.9 Hypothyroidism, unspecified; D64.9 Anemia, unspecified; Z99.2 Dependence on renal dialysis; Z85.51 Personal history of malignant neoplasm of bladder; Z87.440 Personal history of urinary (tract) infections; Z90.710 Acquired absence of both cervix and uterus; Z88.8 Allergy status to other drugs, medicaments and biological substances; Z88.5 Allergy status to narcotic agent; Z95.810 Presence of automatic (implantable) cardiac defibrillator; Z87.891 Personal history of nicotine dependence; Z82.49 Family history of ischemic heart disease and other diseases of the circulatory system
CPT/HCPCS: 36415; 71045; 80053; 81000; 83605; 83880; 84484; 85025; 86141; 87040; 87077; 87088; 93005; 93041